=== PATIENT | male | born 1945 | race African-American/Black ===

== ENCOUNTER 2016-10-24 03:45 | Emergency (ER) | payer SELFPAY ==
[~2016-10-24] VITALS: Ht 182.9 cm; Wt 81.6 kg
[2016-10-24] MEDS ORDERED: Lidocaine HCl 2% Jelly 5ml Tube TOPIC ONE (04:00)
[2016-10-24 04:24] LABS: APPEARANCE,URINE VERY CLOUDY; KETONES,URINE NEGATIVE (NEGATIVE); NITRITE,URINE NEGATIVE (NEGATIVE); PH,URINE 9 (4.5-8.0); PROTEIN,URINE 3+ (NEGATIVE); UROBILINOGEN,URINE NORMAL MG/DL (0.0-1.0)
[2016-10-24 04:27] LABS: BASOPHILS % (AUTO) 1.2 % (0.0-2.0); EOSINOPHILS % (AUTO) 0.7 % (0.0-3.0); LYMPHOCYTES % (AUTO) 11.2 % (20.0-45.0); MEAN CORPUSCULAR HEMOGLOBIN 29.7 PG (27.0-31.0); MEAN CORPUSCULAR VOLUME 93 FL (80-99); MEAN PLATELET VOLUME 6.8 FL (6.5-10.1); MONOCYTES % (AUTO) 5.2 % (1.0-10.0); NEUTROPHILS % (AUTO) 81.8 % (45.0-75.0); PLATELET COUNT 311 K/UL (150-450); RED BLOOD COUNT 4.98 M/UL (4.70-6.10); RED CELL DISTRIBUTION WIDTH 11.8 % (11.6-14.8); WHITE BLOOD COUNT 9.5 K/UL (4.8-10.8)
[2016-10-24 04:34] LABS: LEUKOCYTE ESTERASE ,URINE NEGATIVE (NEGATIVE)
[2016-10-24 04:36] LABS: AMORPHOUS SEDIMENT,UR MANY /LPF; BACTERIA,URINE FEW /HPF; RBC,URINE 0-2 /HPF (0 - 0); TRIPLE PHOSPHATE CRYSTAL,UR MANY /LPF; WBC,URINE 0-2 /HPF (0 - 0)
[2016-10-24 04:39] LABS: PROTHROMBIN TIME 10.5 SEC (9.30-11.50)
[2016-10-24 04:47] LABS: ALANINE AMINOTRANSFERASE 10 U/L (3-41); ALBUMIN/GLOBULIN RATIO 1.2 (1.0-2.7); ANION GAP 17 (5-15); ASPARTATE AMINO TRANSFERASE 16 U/L (5-40); CALCIUM 9.7 mg/dL (8.6-10.2); CARBON DIOXIDE 22 mEQ/L (20-30); CHLORIDE 105 mEQ/L (98-107); CREATININE 1.5 mg/dL (0.7-1.2); HEMOLYSIS 1; LIPASE 22 U/L (< 60); POTASSIUM 3.6 mEQ/L (3.4-4.9); SODIUM 144 mEQ/L (135-145); TOTAL PROTEIN 7.5 g/dL (6.6-8.7)
--- NOTE | 2016-10-24 05:54 | Emergency Room Report ---
History of Present Illness General Chief Complaint: Male Urogenital Problems Source: Patient Present Illness HPI Patient presents with severe suprapubic and penile pain. He's had indwelling Maldonado for a long time. He states that it got dislodged somehow today. The pain is severe, burning, also in penis. Denies any fevers or chills. He denies any renal disease in the past. No NVD, chest pain, dyspnea, joint pain, headache, anxiety. No rashes. H/O prostate CA. Allergies: Coded Allergies: No Known Allergies (Unverified , 10/24/16) Patient History Past Medical History: see triage record Social History Narrative usual care at [facility] Reviewed Nursing Documentation: PMH: Agreed, PSxH: Agreed Nursing Documentation-PMH Hx Cardiac Problems: Yes - Coronary insuficency Hx Cancer: Yes - Prostate Cancer Review of Systems All Other Systems: negative except mentioned in HPI Physical Exam Vital Signs Date Time Temp Pulse Resp B/P Pulse Ox O2 Delivery O2 Flow Rate FiO2 10/24/16 03:44 97.2 113 18 94 Room Air Sp02 EP Interpretation: reviewed, normal General Appearance: well appearing, moderate distress Head: normocephalic Eyes: bilateral eye normal inspection ENT: moist mucus membranes Neck: supple Respiratory: lungs clear, normal breath sounds Cardiovascular #1: regular rate, rhythm Cardiovascular #2: 2+ radial (R) Gastrointestinal: normal inspection, normal bowel sounds, no mass, non- distended, tenderness - suprapubic area Genitourinary: normal inspection, other - maldonado Musculoskeletal: back normal, gait/station normal, normal range of motion Neurologic: alert, oriented x3, grossly normal Psychiatric: anxious - with pain Skin: normal inspection, warm/dry Medical Decision Making Diagnostic Impression: Primary Impression: Malfunction of Maldonado catheter Qualified Codes: T83.011A - Breakdown (mechanical) of indwelling urethral catheter, initial encounter Additional Impressions: Dysuria Renal insufficiency ER Course Patient presents with suprapubic pain and allegedly non-functioning maldonado. DDx : blocked maldonado, dislodged maldonado, UTI amongst others. We need to assess UA and renal function. Also maldonado will be removed and replaced with lidocaine. Also will be given pyridium. Improved after maldonado replaced with lidocaine. Urine is very cloudy. UA with minimal pyuria. Patient begun on antibiotics. Minimal elevation creat and BUN. Improved with treatment. Patient stable for outpatient observation and treatment. Laboratory Tests Test 10/24/16 04:10 White Blood Count 9.5 K/UL (4.8-10.8) Red Blood Count 4.98 M/UL (4.70-6.10) Hemoglobin 14.8 G/DL (14.2-18.0) Hematocrit 46.2 % (42.0-52.0) Mean Corpuscular Volume 93 FL (80-99) Mean Corpuscular Hemoglobin 29.7 PG (27.0-31.0) Mean Corpuscular Hemoglobin Concent 32.0 G/DL (32.0-36.0) Red Cell Distribution Width 11.8 % (11.6-14.8) Platelet Count 311 K/UL (150-450) Mean Platelet Volume 6.8 FL (6.5-10.1) Neutrophils (%) (Auto) 81.8 % (45.0-75.0) H Lymphocytes (%) (Auto) 11.2 % (20.0-45.0) L Monocytes (%) (Auto) 5.2 % (1.0-10.0) Eosinophils (%) (Auto) 0.7 % (0.0-3.0) Basophils (%) (Auto) 1.2 % (0.0-2.0) Prothrombin Time 10.5 SEC (9.30-11.50) Prothrombin Time INR 1.0 (0.9-1.1) PTT 26 SEC (23-33) Urine Color Yellow Urine Appearance Very cloudy Urine pH 9 (4.5-8.0) Urine Specific [place] 1.010 (1.005-1.035) Urine Protein 3+ (NEGATIVE) H Urine Glucose (UA) Negative (NEGATIVE) Urine Ketones Negative (NEGATIVE) Urine Occult Blood 3+ (NEGATIVE) H Urine Nitrite Negative (NEGATIVE) Urine Bilirubin Negative (NEGATIVE) Urine Urobilinogen Normal MG/DL (0.0-1.0) Urine Leukocyte Esterase Negative (NEGATIVE) Urine RBC 0-2 /HPF (0 - 0) H Urine WBC 0-2 /HPF (0 - 0) Urine Squamous Epithelial Cells None /LPF (NONE/OCC) Urine Triple Phosphate Crystals Many /LPF (NONE) H Urine Amorphous Sediment Many /LPF (NONE) H Urine Bacteria Few /HPF (NONE) Sodium Level 144 mEQ/L (135-145) Potassium Level 3.6 mEQ/L (3.4-4.9) Chloride Level 105 mEQ/L (98-107) Carbon Dioxide Level 22 mEQ/L (20-30) Anion Gap 17 (5-15) H Blood Urea Nitrogen 25 mg/dL (7-23) H Creatinine 1.5 mg/dL (0.7-1.2) H Estimate Glomerular Filtration Rate mL/min (>60) Glucose Level 174 mg/dL (74-106) H Calcium Level 9.7 mg/dL (8.6-10.2) Total Bilirubin < 0.2 mg/dL (0.0-1.2) Aspartate Amino Transferase (AST) 16 U/L (5-40) Alanine Aminotransferase (ALT) 10 U/L (3-41) Alkaline Phosphatase 74 U/L (40-129) Total Protein 7.5 g/dL (6.6-8.7) Albumin 4.1 g/dL (3.5-5.2) Globulin 3.4 g/dL Albumin/Globulin Ratio 1.2 (1.0-2.7) Lipase 22 U/L (< 60) Last Vital Signs Date Time Temp Pulse Resp B/P Pulse Ox O2 Delivery O2 Flow Rate FiO2 10/24/16 06:29 97.4 85 19 126/97 97 Room Air Status: improved Disposition: HOME, SELF-CARE Condition: Improved Scripts Phenazopyridine Hcl* (PYRIDIUM*) 100 Mg Tablet 100 MG ORAL THREE TIMES A DAY, #9 TAB Prov: Michele Collier M.D. 10/24/16 Nitrofurantoin Monohyd/M-Cryst* (MACROBID 100 MG*) 100 Mg Capsule 100 MG ORAL EVERY 12 HOURS, #14 CAP Prov: Michele Collier M.D. 10/24/16 Referrals: NOT CHOSEN ALEXA/,REFERRING (PCP) Michele Collier M.D. Oct 24, 2016 05:54
[2016-10-24] MEDS ORDERED: NITROFURANTOIN100 M2 ORAL (05:55)
[2016-10-24] MEDS ORDERED: PHENAZOPYRIDIN100 MG ORAL (05:55)
[2016-10-24 06:20] VITALS: BP 126/97
[2016-10-24 06:29] VITALS: BP 126/97
== END 2016-10-24 06:29 | disposition home or self-care (01) ==
LOC: EDBD 03:45 → EMR 04:05
DX: T83.011A Breakdown (mechanical) of indwelling urethral catheter, initial encounter (principal); R30.0 Dysuria; N28.9 Disorder of kidney and ureter, unspecified; Z85.46 Personal history of malignant neoplasm of prostate; X58.XXXA Exposure to other specified factors, initial encounter; Y93.9 Activity, unspecified; Y92.9 Unspecified place or not applicable
CPT/HCPCS: 36415; 51702; 80053; 81003; 83690; 85025; 85610; 85730; 96374; 99284

== ENCOUNTER 2019-01-20 17:10 | Inpatient (IN) | payer MEDICARE, OTHER ==
[~2019-01-20] VITALS: Ht 183.5 cm; Wt 75.7 kg
[~2019-01-20 17:10] MED LIST: NITROFURANTOIN100 M2 ORAL; PHENAZOPYRIDIN100 MG ORAL
[2019-01-20] MEDS ORDERED: UNOBMED (17:25)
--- NOTE | 2019-01-20 17:25 | NUR ---
Blood labs sent to lab.
[2019-01-20] MEDS ORDERED: Albuterol ud Inhalation HHN ONE (17:30)
[2019-01-20] MEDS ORDERED: Solu-MEDROL 125mg Inj IVP ONE (17:30)
--- NOTE | 2019-01-20 17:35 | NUR ---
notified patient BUSTOS 12/17 pain.
[2019-01-20] MEDS: Ipratropium 0.02% Inh Soln 2.5ml UD HHN SCH ×2 (17:42→17:43)
[2019-01-20 17:58] LABS: BASOPHILS % (AUTO) 2.3 % (0.0-2.0); EOSINOPHILS % (AUTO) 4.9 % (0.0-3.0); HEMATOCRIT 44.8 % (42.0-52.0); HEMOGLOBIN 14.7 G/DL (14.2-18.0); LYMPHOCYTES % (AUTO) 21.1 % (20.0-45.0); MEAN CORPUSCULAR VOLUME 87 FL (80-99); MONOCYTES % (AUTO) 7.9 % (1.0-10.0); NEUTROPHILS % (AUTO) 63.8 % (45.0-75.0); PLATELET COUNT 303 K/UL (150-450); RED BLOOD COUNT 5.18 M/UL (4.70-6.10); RED CELL DISTRIBUTION WIDTH 12.2 % (11.6-14.8); WHITE BLOOD COUNT 9.3 K/UL (4.8-10.8)
--- NOTE | 2019-01-20 18:03 | NUR ---
ED Nurse Note: RT notified for bibap
[2019-01-20 18:05] VITALS: BP 121/91
[2019-01-20 18:15] LABS: ALANINE AMINOTRANSFERASE 21 U/L (12-78); ALBUMIN 3.6 G/DL (3.4-5.0); ALBUMIN/GLOBULIN RATIO 0.9 (1.0-2.7); ALKALINE PHOSPHATASE 95 U/L (46-116); ANION GAP 2 mmol/L (5-15); ASPARTATE AMINO TRANSFERASE 19 U/L (15-37); BILIRUBIN,TOTAL 0.3 MG/DL (0.2-1.0); BLOOD UREA NITROGEN 19 mg/dL (7-18); CALCIUM 8.4 MG/DL (8.5-10.1); CARBON DIOXIDE 34 MMOL/L (21-32); CHLORIDE 100 MMOL/L (98-107); POTASSIUM 4.7 MMOL/L (3.5-5.1); SODIUM 136 MMOL/L (136-145)
--- NOTE | 2019-01-20 18:51 | NUR ---
ED Nurse Note: patient refused flu swab. notified to DR. Garcia
--- NOTE | 2019-01-20 19:01 | NUR ---
HAND-OFF: Report given to Rosendo MCKEON. endorsed all plan of care.
--- NOTE | 2019-01-20 19:01 | Emergency Room Report ---
History of Present Illness General Chief Complaint: Dyspnea/Respdistress Source: Patient, EMS Present Illness Allergies: Coded Allergies: No Known Allergies (Unverified , 10/24/16) Patient History Past Medical History: see triage record, CAD, COPD Past Surgical History: pacemaker Social History: Denies: smoking, alcohol use, drug use Reviewed Nursing Documentation: PMH: Agreed; PSxH: Agreed Nursing Documentation-PMH Hx Cardiac Problems: Yes - Coronary insuficency Hx COPD: Yes Hx Cancer: Yes - Prostate Cancer Review of Systems All Other Systems: negative except mentioned in HPI Physical Exam Vital Signs Date Time Temp Pulse Resp B/P (MAP) Pulse Ox O2 Delivery O2 Flow Rate FiO2 01/20/19 17:17 97.5 87 27 186/77 (113) 97 01/20/19 17:30 Non-Rebreather 7.0 01/20/19 18:06 36 Sp02 EP Interpretation: reviewed, normal General Appearance: alert, GCS 15, moderate distress Head: normocephalic, atraumatic Eyes: bilateral eye normal inspection, bilateral eye PERRL ENT: hearing grossly normal, normal pharynx, no angioedema, normal voice Neck: full range of motion, supple/symm/no masses Respiratory: chest non-tender, respiratory distress, accessory muscle use, rales, wheezing, expiration Cardiovascular #1: regular rate, rhythm, no edema Gastrointestinal: normal bowel sounds, non tender, soft, non-distended, no guarding, no rebound Rectal: deferred Musculoskeletal: back normal, normal range of motion, non-tender Neurologic: alert, oriented x3, responsive, motor strength/tone normal, sensory intact, speech normal Psychiatric: judgement/insight normal, memory normal, mood/affect normal, no suicidal/homicidal ideation Skin: no rash, normal color Medical Decision Making Diagnostic Impression: Primary Impression: COPD exacerbation Additional Impressions: Respiratory distress CHF (congestive heart failure) ER Course This patient is critically ill. This patient required complex medical decision- making, aggressive intervention, extensive laboratory workup and monitoring. Critical care time: 40 minutes. Laboratory Tests Test 01/20/19 17:20 White Blood Count 9.3 K/UL (4.8-10.8) Red Blood Count 5.18 M/UL (4.70-6.10) Hemoglobin 14.7 G/DL (14.2-18.0) Hematocrit 44.8 % (42.0-52.0) Mean Corpuscular Volume 87 FL (80-99) Mean Corpuscular Hemoglobin 28.4 PG (27.0-31.0) Mean Corpuscular Hemoglobin Concent 32.8 G/DL (32.0-36.0) Red Cell Distribution Width 12.2 % (11.6-14.8) Platelet Count 303 K/UL (150-450) Mean Platelet Volume 6.0 FL (6.5-10.1) L Neutrophils (%) (Auto) 63.8 % (45.0-75.0) Lymphocytes (%) (Auto) 21.1 % (20.0-45.0) Monocytes (%) (Auto) 7.9 % (1.0-10.0) Eosinophils (%) (Auto) 4.9 % (0.0-3.0) H Basophils (%) (Auto) 2.3 % (0.0-2.0) H Sodium Level 136 MMOL/L (136-145) Potassium Level 4.7 MMOL/L (3.5-5.1) Chloride Level 100 MMOL/L (98-107) Carbon Dioxide Level 34 MMOL/L (21-32) H Anion Gap 2 mmol/L (5-15) L Blood Urea Nitrogen 19 mg/dL (7-18) H Creatinine 1.0 MG/DL (0.55-1.30) Estimate Glomerular Filtration Rate mL/min (>60) Glucose Level 147 MG/DL (74-106) H Lactic Acid Level 1.20 mmol/L (0.4-2.0) Calcium Level 8.4 MG/DL (8.5-10.1) L Total Bilirubin 0.3 MG/DL (0.2-1.0) Aspartate Amino Transferase (AST) 19 U/L (15-37) Alanine Aminotransferase (ALT) 21 U/L (12-78) Alkaline Phosphatase 95 U/L (46-116) Troponin I 0.013 ng/mL (0.000-0.056) Total Protein 7.8 G/DL (6.4-8.2) Albumin 3.6 G/DL (3.4-5.0) Globulin 4.2 g/dL Albumin/Globulin Ratio 0.9 (1.0-2.7) L EKG Diagnostic Results Rate: normal Rhythm: NSR ST Segments: no acute changes Other Impression Bifascicular block. Rhythm Strip Diag. Results EP Interpretation: yes Rate: 60 Rhythm: NSR Chest X-Ray Diagnostic Results Chest X-Ray Diagnostic Results : Chest X-Ray Ordered: Yes # of Views/Limited/Complete: 1 View Indication: Shortness of Breath EP Interpretation: Yes Interpretation: other - Diffusely patchy opacities. Impression: Other - See above. Electronically Signed by: Simona Garcia DO Last Vital Signs Date Time Temp Pulse Resp B/P (MAP) Pulse Ox O2 Delivery O2 Flow Rate FiO2 01/20/19 18:46 40 01/20/19 18:06 66 20 99 Room Air 60 16 97 01/20/19 18:05 97.5 121/91 01/20/19 17:30 7.0 Disposition: ADMITTED INPATIENT Simona Garcia DO Jan 20, 2019 19:01
--- NOTE | 2019-01-20 19:20 | NUR ---
ED Nurse Note: Pt is stable and RT just left bedside.
[2019-01-20] MEDS ORDERED: Nitroglycerin 2% oint pkt TOPIC ONE (20:00)
--- NOTE | 2019-01-20 20:41 | NUR ---
ED Nurse Note: Called for report. Call back in 10min. Spoke to LINDA Henderson
[2019-01-20 21:00] LABS: APPEARANCE,URINE CLEAR; BILIRUBIN, URINE NEGATIVE (NEGATIVE); COLOR,URINE PALE YELLOW; GLUCOSE, URINE (UA) NEGATIVE (NEGATIVE); KETONES,URINE NEGATIVE (NEGATIVE); LEUKOCYTE ESTERASE ,URINE 1+ (NEGATIVE); NITRITE,URINE NEGATIVE (NEGATIVE); PH,URINE 5 (4.5-8.0); PROTEIN,URINE NEGATIVE (NEGATIVE); UROBILINOGEN,URINE NORMAL MG/DL (0.0-1.0)
--- NOTE | 2019-01-20 21:27 | NUR ---
TRANSFER TO FLOOR: Patient transferred to SDU as ordered, per MD Alyssa . Report given to LINDA Barnes. Belongings and medications given to LINDA Barnes. Family and or S/O informed of transfer.
--- NOTE | 2019-01-20 21:30 | NUR ---
NURSE NOTES: Received patient from LINDA Robbins. patient is AO X3, able to make needs known, denies pain at this time. personnel monitor applied to patient, NSR noted on personnel monitor. Left upper chest pacemaker noted. no acute cardiac distress noted at this time. nitroglycerin patch noted on right upper chest previously applied in ER. patient currently on 2 L O2 via NC. tolerating well, saturating at 94%. new gown applied, skin intact. Right forearm 18 g IV site noted, patent and intact, asymptomatic. F/C noted, changed collection bag, draining jitendra urine to gravity. per patient, F/C was previously inserted at [facility]. belongings noted and reviewed with patient. bed in lowest position and locked, siderails up X2, call light within reach. will continue to monitor. will contact MD for admission orders.
[2019-01-20 21:50] VITALS: BP 113/65
--- NOTE | 2019-01-20 21:50 | NUR ---
NURSE NOTES: left message for Dr. Shah regarding admission orders. awaiting call back.
--- NOTE | 2019-01-20 22:11 | NUR ---
NURSE NOTES: spoke with Alfonso of [place] medical records in regards to patient's current medication list. will fax request form.
--- NOTE | 2019-01-20 22:15 | NUR ---
NURSE NOTES: faxed request form to Jamil of [place] medical records to obtain medication list.
--- NOTE | 2019-01-20 22:22 | NUR ---
NURSE NOTES: left 2nd message for Dr. Shah regarding admission orders. awaiting call back. patient remains stable.
--- NOTE | 2019-01-20 22:50 | NUR ---
NURSE NOTES: received call back from Dr. Shah regarding admission orders. per keturah Youssef to enter diet order and he will review chart and place other orders.
[2019-01-21] VITALS: BP 114/68
[2019-01-21] MEDS ORDERED: cefTRIAXone 1 GM in D5W 55 ML IVPB SCH (01:00)
[2019-01-21] MEDS: Albuterol/Ipratropium 3ml neb HHN SCH ×6 (03:06→23:00)
[2019-01-21] MEDS ORDERED: FLOMAX0.4 MG ORAL (03:47)
[2019-01-21] MEDS ORDERED: LEVALBUTER0.31 MG/3 IH (03:47)
[2019-01-21] MEDS ORDERED: PREDNISONE20 MG ORAL (03:47)
[2019-01-21] MEDS ORDERED: CARVEDILOL6.25 MG ORAL (03:47)
[2019-01-21] MEDS ORDERED: ATORVASTATIN CA20 MG ORAL (03:47)
[2019-01-21] MEDS ORDERED: VIBRAMYCIN100 MG ORAL (03:47)
[2019-01-21] MEDS ORDERED: ELIQUIS5 MG PO (03:53)
[2019-01-21] MEDS ORDERED: NASONEX17 GM INH (03:53)
[2019-01-21] MEDS ORDERED: STIOLTO RESPIMAT4 GM IH (03:53)
[2019-01-21 04:00] VITALS: BP 108/65
[2019-01-21 04:29] LABS: HEMATOCRIT 43.3 % (42.0-52.0); HEMOGLOBIN 13.7 G/DL (14.2-18.0); MEAN CORPUSCULAR VOLUME 89 FL (80-99); PLATELET COUNT 335 K/UL (150-450); RED BLOOD COUNT 4.88 M/UL (4.70-6.10); RED CELL DISTRIBUTION WIDTH 13.4 % (11.6-14.8); WHITE BLOOD COUNT 7.6 K/UL (4.8-10.8)
[2019-01-21 04:57] LABS: ALANINE AMINOTRANSFERASE 18 U/L (12-78); ALBUMIN 3.1 G/DL (3.4-5.0); ALBUMIN/GLOBULIN RATIO 0.8 (1.0-2.7); ALKALINE PHOSPHATASE 90 U/L (46-116); ANION GAP 10 mmol/L (5-15); ASPARTATE AMINO TRANSFERASE 13 U/L (15-37); BILIRUBIN,TOTAL 0.2 MG/DL (0.2-1.0); BLOOD UREA NITROGEN 23 mg/dL (7-18); CALCIUM 8.2 MG/DL (8.5-10.1); CARBON DIOXIDE 28 MMOL/L (21-32); CHLORIDE 102 MMOL/L (98-107); CREATININE 1.2 MG/DL (0.55-1.30); POTASSIUM 4.7 MMOL/L (3.5-5.1); SODIUM 139 MMOL/L (136-145)
--- NOTE | 2019-01-21 05:00 | History and Physical Report ---
DATE OF ADMISSION: 01/20/2019 HISTORY & PHYSICAL ADMITTING PHYSICIAN: Michele Shah M.D. REASON FOR ADMISSION: Congestive heart failure, uncontrolled hypertension, and acute bronchospasm. HISTORY OF PRESENT ILLNESS: This is a 73-year-old male who usually gets his medical care at the [facility] who presented to the emergency room with 1 day of progressive shortness of breath. He has not had any fevers or chills. Scant sputum production has been noted with increasing tightness and pain. She has not had any chest pain or leg swelling. The patient was seen in the emergency room where he was on bronchodilators, intravenous steroids, and diuretics. His pressure improved. PAST MEDICAL HISTORY: COPD, CAD, pacemaker, prostate cancer, prostatectomy, and chronic indwelling Montgomery catheter. ALLERGIES: None. MEDICATIONS: The patient does not recall. SOCIAL HISTORY: A 50+ pack year smoker, quit last year. No alcohol abuse or substance abuse. FAMILY HISTORY: Noncontributory. REVIEW OF SYSTEMS: No visual or hearing loss. No history of diabetes or thyroid disorder. He does not know his cholesterol level. He denies any history of seizure or stroke. He does not think that he had a heart attack. There is no history of rheumatic heart disease or irregular heart rhythm. He has never been on a ventilator before, but has been on steroids in the past. He had prostatectomy. He has had a catheter indwelling for years, he replaced monthly. In fact, yesterday, it was changed at the [facility]. He has not noted any change in bowel habits. The patient's pacemaker is checked every year or so, he does not recall the last time. PHYSICAL EXAMINATION: VITAL SIGNS: Blood pressure 186/77, pulse 87, respiratory rate 27, and afebrile in the emergency room. Now, blood pressure 135/60, respiratory rate 20, and afebrile. HEENT: Conjunctivae are pink. Oropharynx clear. NECK: Supple. Some accessory muscle use. LUNGS: Coarse breath sounds. Expiratory wheezes. Few rales. CARDIAC: Regular rhythm and rate. Normal S1 and S2. A 1/6 systolic murmur at apex. CHEST WALL: Chest wall with pacemaker pocket site. ABDOMEN: Soft and nontender. EXTREMITIES: Trace edema. Montgomery catheter in place. Urine is clear. LABORATORY DATA: White count 8.3 and hemoglobin 14.7. Lactic acid normal. Troponin 0.013. Glucose 147, BUN 19, and creatinine 1. Sodium 136, potassium 4.7, bicarb 34, and albumin 3.6. ABG 7.34, 50, 83. IMPRESSION: 1. Chronic obstructive pulmonary disease with acute exacerbation . 2. Acute on chronic respiratory acidosis. 3. Paroxysmal bronchospasm. 4. Hypertension, resolved. 5. Acute diastolic congestive heart failure. 6. Permanent pacemaker. 7. Chronic indwelling Montgomery catheter with no signs of acute infection. PLAN: 1. Cardiac monitoring. 2. Empiric antimicrobials. 3. Intravenous steroids. 4. Inhaled bronchodilators. 5. Hold BiPAP for now. 6. Diuresis. 7. Echocardiogram. 8. Obtain pacemaker data and interrogation to be considered if not recently done. 9. Prophylaxis. 10. Avoid excess oxygen use due to likelihood . Michele Shah M.D. DR: ABBEY JOB#: [id number] CC: JACKELIN
[2019-01-21] MEDS: Nitroglycerin 2% oint pkt TOPIC SCH ×3 (06:00→18:03)
[2019-01-21] MEDS: Solu-MEDROL 40mg Inj IVP SCH ×2 (06:20→12:59)
--- NOTE | 2019-01-21 07:47 | NUR ---
HAND-OFF: Report given to LINDA Cobos. patient is in stable condition.
--- NOTE | 2019-01-21 07:48 | NUR ---
NURSE NOTES: Patient received in semi-ortiz's position, alert, oriented. Able to make needs known. On room air, respirations even and unlabored, no acute respiratory distress. Denies pain at this time. Right forearm IV running TKO, asymptomatic. Montgomery catheter in place, draining yellow urine. Sinus Rhythm on the monitor. Call light placed within reach. Patient constantly asking for sandwiches and juice. Safety measure implemented. Will continue to monitor.
[2019-01-21 08:00] VITALS: BP 103/68
--- NOTE | 2019-01-21 08:27 | NUR ---
Pt refused breathing tx, LINDA Cobos notified. Pt saturating 87% on RA so placed pt back on 2L NC. Pt now saturating 92%. Will continue to monitor. Addendum: 01/21/19 at 0828 by BEA DOTY RT Amended: Links added.
[2019-01-21] MEDS: Heparin 5000 units/ml inj SUBQ SCH ×2 (09:00→21:10)
[2019-01-21 12:00] VITALS: BP 127/70
--- NOTE | 2019-01-21 12:46 | Diagnostic Imaging Report ---
Indication: Dyspnea Comparison: None A single view chest radiograph was obtained. Findings: Pulmonary vascularity is mildly prominent. Heart is enlarged. There is a single lead pacemaker in the left anterior chest wall with the wire projecting over the right ventricle. Bones are unremarkable. IMPRESSION: Query mild pulmonary vascular congestion.
--- NOTE | 2019-01-21 12:55 | NUR ---
CASE MANAGEMENT:REVIEW 73 YR OLD MALE BIBA CC; SOB PMH: WAS DISCHARGED FROM [place] ON 01/20/19 SI: COPD EXACERBATION RESPIRATORY DISTRESS. CHF 97.5 87 27 186/77 97% ON RA PH-7.34 PCO2+50.0 HCO3+26.4 IS: ALBUTEROL GIVEN EN ROUTE PLACED ON NON REBREATHER DUONEB HHN X3 NITRO BID 1" X1 IV LASIX IV SOLUMEDROL 125 MG : TO STEP DOWN UNIT
--- NOTE | 2019-01-21 12:55 | NUR ---
NURSE NOTES: Dr. Shah's office called, left a message for patient positive for gram positive cocci in cluster and patient requesting ensure. Will await call back.
--- NOTE | 2019-01-21 13:06 | NUR ---
NURSE NOTES: Patient eating last piece of second meatloaf while talking. Patient kept coughing. Informed patient about the risks of aspiration with eating huge meals, to take it slow and chew properly, not to eat and talk at the same time. Patient being admitted for COPD exacerbation, he is at risk. Patient's HOB is elevated at this time, on room air, patient refuses to place on nasal cannula.
[2019-01-21 16:00] VITALS: BP 112/62
--- NOTE | 2019-01-21 16:10 | NUR ---
NURSE NOTES: Patient asking for a sandwich from kitchen. Dietary called.
--- NOTE | 2019-01-21 16:16 | Consultation ---
DATE OF CONSULTATION: 01/21/2019 PULMONARY CONSULTATION CONSULTING PHYSICIAN: Jose Cadet M.D. REFERRING PHYSICIAN: Syed Rashid M.D. REASON FOR CONSULTATION: Shortness of breath, respiratory distress. HISTORY OF PRESENT ILLNESS: This is a 73-year-old male. The patient usually is cared for at the [facility]. The patient presented with progressive shortness of breath. The patient denies any fevers, chills, but does have some sputum production. The patient also notes some chest tightness. Denies any chest pain. The patient was seen in the emergency room, was given IV steroids and diuretics. The patient does have underlying history of COPD and admitted with COPD and CHF. Care discussed and reviewed with the patient. The patient quit smoking just last year, but has a very longstanding history of smoking. No untoward events. No falls or chest trauma. No ill contacts. ER notes and cardiology notes reviewed. MEDICATIONS: Reviewed. ALLERGIES: Reviewed and reconciled. SOCIAL HISTORY: The patient is a 50 pack-year smoker, quit last year. No alcohol use. The patient is a . The patient is retired at present. REVIEW OF SYSTEMS: All 10 points reviewed and otherwise negative. PHYSICAL EXAMINATION: GENERAL: The patient is a well-developed male with mild shortness of breath. VITAL SIGNS: Blood pressure 108/65, 95 saturation on one liter, pulse 65, temperature 97.9, respiratory rate 20. HEENT: Negative. Extraocular movements are grossly intact. NECK: Supple. LUNGS: Some basilar crackles with scattered anterior wheezes. CARDIAC: S1 and S2. Regular rate and rhythm without murmurs, rubs, gallops. The patient has chest wall pacemaker. ABDOMEN: Soft, nontender, nondistended. EXTREMITIES: No cyanosis or clubbing. There is trace edema. GENITOURINARY: Montgomery catheter in place. NEUROLOGIC: Grossly nonfocal. LABORATORY DATA: Otherwise reviewed. White count 8.3. Glucose 147, BUN 19, creatinine 1. ABG, pH 7.34, pCO2 50, pO2 of 83. IMPRESSION: 1. COPD with acute exacerbation. 2. Hypercapnia. 3. Chronic respiratory failure. 4. Acute bronchospasm. 5. Hypertension. 6. Congestive heart failure. 7. Pacemaker. 8. 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 RECOMMENDATIONS: 1. Supportive care. 2. Monitor fluid status. 3. Monitor intake and output. 4. Diuresis as needed. 5. Empiric antibiotics. 6. Nebulized therapy. 7. IV steroids and taper as able. 8. Respiratory care as outlined. 9. Monitor and recommend further. 10. Discharge back to home when the patient improves and stable. Jose Cadet M.D. DR: Elfego JOB#: [id number] CC: JACKELIN
--- NOTE | 2019-01-21 17:00 | NUR ---
NURSE NOTES: Dr. Shah in facility, made aware of blood sugar results, patient with no insulin order, blood culture positive. MD to place in his orders.
--- NOTE | 2019-01-21 19:22 | NUR ---
HAND-OFF: Report given to LINDA Barnes.
--- NOTE | 2019-01-21 19:25 | NUR ---
NURSE NOTES: received patient from LINDA Cobos. patient is observed resting in bed, watching tv, denies pain at this time. patient is on 1 liter O2 via NC, tolerating well; no s/sx of respiratory distress noted at this time. F/C is patent and intact, draining jitendra urine well to gravity. RFA 18 g IV site patent and intact, asymptomatic. bed in lowest position and locked, siderails up X2, call light within reach. will continue to monitor.
[2019-01-21 20:00] VITALS: BP 120/72
[2019-01-21] MEDS ORDERED: Solu-MEDROL 40mg Inj IVP SCH (21:00)
--- NOTE | 2019-01-21 21:30 | Progress Note ---
DATE: 01/21/2019 INTERNAL MEDICINE PROGRESS NOTE SUBJECTIVE: The patient has less shortness of breath. No wheezing. He notes his pacemaker checked last week. He still does not feel like he is at his baseline with regard to respiratory status. OBJECTIVE: VITAL SIGNS: Blood pressure 112/63, pulse 75, respirations 21, afebrile. LUNGS: With diminished breath sounds. Few rhonchi. HEART: Regular rhythm, rate. Normal S1, S2. ABDOMEN: Soft. EXTREMITIES: No edema. DIAGNOSTIC DATA: Echocardiogram with normal ejection fraction. Natriuretic peptide of 148. Troponin negative. BUN 23, creatinine 1.2. White count is 7.6. IMPRESSION: 1. Chronic obstructive pulmonary disease exacerbation. 2. Paroxysmal bronchospasm. 3. Acute diastolic congestive heart failure. 4. Permanent pacemaker. 5. Positive blood culture, likely a contaminant. PLAN: 1. Empiric antibiotics. 2. ID consultation. 3. Steroid taper. 4. Inhaled bronchodilators. 5. DVT prophylaxis. 6. Diuresis based on clinical parameters. 7. chest x-ray. Michele Shah M.D. DR: SHANIA JOB#: [id number] CC:
--- NOTE | 2019-01-21 22:15 | NUR ---
TRANSFER TO FLOOR: Patient transferred to 2E, room 218-2 as per physician order. patient is in stable condition. Report given to LINDA Scott. Belongings and medications given to receiving RN. Belongings remain at patient's bedside. Endorsed to RN to follow up with Dr. Shah regarding patient's glucose levels.
--- NOTE | 2019-01-21 22:26 | NUR ---
NURSE NOTES: Received report from LINDA Barnes. Patient is awake lying semi-ortiz's; resting comfortably. No signs of acute distress or pain noted at this time. On 1L nasal cannula. AOx4; able to make needs known. Ambulates with some assistance. Checked IV site; patent and flushed. No erythema, bleeding, or infiltration noted. Belongings list checked with patient and transferring RN. Montgomery catheter draining well to gravity. Skin assessment performed; no wounds noted. Skin is intact. Bed at lowest position, brakes on, siderails up x2; call light within reach. Will continue to monitor.
--- NOTE | 2019-01-21 23:08 | NUR ---
NURSE NOTES: Called Dr. Shah regarding patient's blood sugar of 328, but has no insulin coverage. Awaiting callback for any further orders.
[2019-01-22] VITALS: BP 125/77
[2019-01-22] MEDS ORDERED: cefTRIAXone 1 GM in NS 55 ML IVPB SCH ×4 (01:00)
[2019-01-22] MEDS: Albuterol/Ipratropium 3ml neb HHN SCH ×3 (03:04→10:53)
[2019-01-22 04:00] VITALS: BP 132/89
--- NOTE | 2019-01-22 04:10 | NUR ---
NURSE NOTES: Patient is asleep lying semi-ortiz's; resting comfortably. No signs of acute distress or pain noted at this time. On 1L nasal cannula. Montgomery catheter draining well to gravity.
[2019-01-22] MEDS: Nitroglycerin 2% oint pkt TOPIC SCH ×2 (06:44→12:36)
--- NOTE | 2019-01-22 07:31 | NUR ---
HAND-OFF: Report given to LINDA Mathew. Patient is asleep lying semi-ortiz's; resting comfortably. On 2L nasal cannula. Montgomery catheter draining well to gravity. In stable condition.
--- NOTE | 2019-01-22 07:38 | NUR ---
NURSE NOTES: Report received from LINDA Gill. Patient shows no signs of distress, A+Ox3, denies pain/SOB. Respirations are even and unlabored on 2 L NC with end tital CO2 monitoring. IV site is intact and saline locked. Bed is at lowest position, brakes engaged, siderails x2, bed alarm on, and call light within reach. Pt is in stable condition at this time; will continue to monitor.
[2019-01-22 08:00] VITALS: BP 114/72
[2019-01-22] MEDS ORDERED: Solu-MEDROL 40mg Inj IVP SCH (09:00)
[2019-01-22] MEDS ORDERED: Heparin 5000 units/ml inj SUBQ SCH (09:00)
--- NOTE | 2019-01-22 11:21 | NUR ---
RADIOLOGY DEPT., CHEST X-RAY DONE.-P.DYE
--- NOTE | 2019-01-22 11:49 | Diagnostic Imaging Report ---
Indication: Dyspnea Comparison: None A single view chest radiograph was obtained. Findings: Pulmonary vascular congestion suspected and mild cardiomegaly. There is a pacemaker again noted in the left anterior chest wall. IMPRESSION: Mild CHF slightly worse
[2019-01-22 12:00] VITALS: BP 122/76
[2019-01-22 12:36] VITALS: BP 122/76
--- NOTE | 2019-01-22 12:49 | Cardiology Report ---
APPROVED REPORT EXAM: Two-dimensional and M-mode echocardiogram with Doppler and color Doppler. INDICATION Congestive Heart Failure M-Mode DIMENSIONS IVSd1.6 (0.7-1.1cm)Left Atrium (MM)3.0 (1.6-4.0cm) LVDd3.8 (3.5-5.6cm)Aortic Root2.4 (2.0-3.7cm) PWd1.0 (0.7-1.1cm)Aortic Cusp Exc.1.5 (1.5-2.0cm) IVSs1.3 cm LVDs2.3 (2.5-4.0cm) PWs1.1 cm Technically difficult study due to poor acoustical windows, all images obtained from subcostal. Study quality precludes accurate assessment of regional wall motion. Normal left ventricular chamber size, systolic function and wall motion to extent visualized. Left ventricular ejection fraction estimated to be 55%. No evidence of left ventricular hypertrophy. No evidence of pericardial effusion. Mild left atrial enlargement . Right cardiac chamber sizes are within normal limits. Focal aortic valve sclerosis with adequate cusp excursion. Thickened mitral valve leaflets with normal excursion. Mitral annulus and aortic root calcification. Normal pulmonic valve structure. Normal tricuspid valve structure. IVC at 1.6 cm without physiologic collapse. A color flow and spectral Doppler study was performed and revealed: No aortic insufficiency. Trace mitral regurgitation. Mitral inflow indicates normal left ventricular diastolic function. Mild tricuspid regurgitation. Tricuspid systolic velocities suggests peak right ventricular systolic pressure of 20 mmHg.
--- NOTE | 2019-01-22 13:15 | NUR ---
CASE MANAGEMENT:REVIEW 01/22/19 SI: COPD EXACERBATION. CHF 97.0 68 20 122/76 92% ON 2L/NC IS: IV LASIX QD HEPARIN SQ Q12 IV SOLUMEDROL Q12 IV ROCEPHIN Q24 DUONEB HHN Q4HRS RTC NITRO BID 1" TID : TELEMETRY STATUS DCP: FROM HOME
--- NOTE | 2019-01-22 13:35 | NUR ---
NURSE NOTES: Patient insisting on double portions of food and Ensure. His blood sugar is 359 with no insulin coverage. He seems to be forgetful that we instructed him about his blood sugar and his need to lower it. He keeps asking different staff members for food even though RN has already instructed him that she is working on getting what he wants through the doctor. Spoke with Dr. Shah who ordered sliding scale and double Ensure. He said patient cannot have two trays as he is diabetic. Orders noted and carried out.
[2019-01-22] MEDS ORDERED: NovoLOG Insulin Flexpen SUBQ SCH (13:45)
--- NOTE | 2019-01-22 14:27 | NUR ---
NURSE NOTES: Patient upset because he can't have two portions of food. Dr. Shah said he can have snacks and a regular diet with 2 bottles of ensure, but he said that was not enough. Patient's blood sugar elevated. Tried to give Novolog, but patient insisted on leaving. Patient said that he gets treated better at the [place]. He said there, he can get all the Ensure and food trays he wants. Once he wanted to go, there was no talking with him. Left a message with Dr. Shah regarding patient's wanting to leave AMA. Patient willing to sign AMA paper. Patient was so anxious to leave that we only had time to remove wristband, monitor, and IV, but patient did not sign belongings list. I asked patient if he had everything he came in with and he said "yes." He left wearing his ring on his finger. Patient stable on discharge. Asked him to wait for Dr. Shah's return phone call and he said he wouldn't wait. He wanted to take the bus to [place]. Patient left floor AMA @ [id number].
--- NOTE | 2019-01-22 14:30 | Pulmonology Progress Note ---
Assessment/Plan Assessment/Plan Pulmonary Progress Note HPI: Patient is a 73-year-old male admitted with shortness of breath, cough with sputum. The patient denied any fevers, chills, some chest tightness. Denied any chest pain. Receiving IV steroids, HHN and diuretics. The patient does have underlying history of COPD and admitted with COPD and CHF. Care discussed and reviewed with the patient. The patient quit smoking just last year, but has a very longstanding history of smoking. No untoward events. No falls or chest trauma. No ill contacts. ER notes and cardiology notes reviewed. MEDICATIONS: Reviewed. ALLERGIES: Reviewed and reconciled. SOCIAL HISTORY: The patient is a 50 pack-year smoker, quit last year. No alcohol use. The patient is a . The patient is retired at present. PHYSICAL EXAMINATION: GENERAL: The patient is a well-developed male, comfortable VITAL SIGNS NOTED: HEENT: Negative. Extraocular movements are grossly intact. NECK: Supple. LUNGS: Some basilar crackles with scattered anterior wheezes. CARDIAC: S1 and S2. Regular rate and rhythm without murmurs, rubs, gallops. The patient has chest wall pacemaker. ABDOMEN: Soft, nontender, nondistended. EXTREMITIES: No cyanosis or clubbing. There is trace edema. GENITOURINARY: Montgomery catheter in place. NEUROLOGIC: Grossly nonfocal. LABORATORY DATA NOTED: ABG, pH 7.34, pCO2 50, pO2 of 83. IMPRESSION: 1. COPD with acute exacerbation. 2. Hypercapnia. 3. Chronic respiratory failure. 4. Acute bronchospasm. 5. Hypertension. 6. Congestive heart failure. 7. Pacemaker. 8. 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 PLAN: 1. Supportive care. 2. Monitor fluid status. 3. Monitor intake and output. 4. Diuresis as needed. 5. Empiric antibiotics. 6. Nebulized therapy. 7. IV steroids and taper as tolerated. 8. Respiratory care as outlined. 9. Monitor and recommend further. 10. Discharge back to home when the patient improves and stable. CXR: Mild congestion Subjective ROS Limited/Unobtainable: No Allergies: Coded Allergies: No Known Allergies (Unverified , 10/24/16) Objective Last 24 Hour Vital Signs Date Time Temp Pulse Resp B/P (MAP) Pulse Ox O2 Delivery O2 Flow Rate FiO2 01/22/19 12:36 122/76 01/22/19 12:00 68 01/22/19 12:00 97.0 68 20 122/76 (91) 92 01/22/19 11:03 68 18 99 Nasal Cannula 2.0 28 66 23 94 01/22/19 09:00 Nasal Cannula 2.0 01/22/19 08:00 97.8 80 24 114/72 (86) 94 01/22/19 08:00 65 01/22/19 06:53 95 16 97 Nasal Cannula 2.0 28 63 15 93 01/22/19 06:44 132/89 01/22/19 06:43 93 Nasal Cannula 2.0 28 01/22/19 04:00 72 01/22/19 04:00 97.6 73 23 132/89 (103) 95 01/22/19 03:04 69 18 98 Nasal Cannula 2.0 28 72 18 94 01/22/19 00:00 97.3 70 22 125/77 (93) 95 01/22/19 00:00 68 01/21/19 23:59 66 18 98 Nasal Cannula 2.0 28 67 18 96 01/21/19 20:00 75 01/21/19 20:00 98.4 71 24 120/72 (88) 92 01/21/19 20:00 94 Nasal Cannula 2.0 28 01/21/19 20:00 Nasal Cannula 1.0 01/21/19 19:53 66 18 98 Nasal Cannula 2.0 28 64 18 94 01/21/19 18:03 112/62 01/21/19 16:00 75 01/21/19 16:00 98.8 78 21 112/62 (79) 92 01/21/19 16:00 Nasal Cannula 1.0 Intake and Output 01/21/19 01/22/19 19:00 07:00 Intake Total 490 ml 565 ml Output Total 1000 ml 600 ml Balance -510 ml -35 ml Intake Oral 490 ml 510 ml IV Total 55 ml Output Urine Total 1000 ml 600 ml # Bowel Movements 1 Microbiology Date/Time Source Procedure Growth Status 01/20/19 18:14 Blood Blood Culture - Preliminary Staphylococcus Sp Coag Neg Resulted Current Medications Medications (Trade) Dose Ordered Sig/Dejon Route PRN Reason Start Time Stop Time Status Last Admin Dose Admin Albuterol/ Ipratropium (Albuterol/ Ipratropium) 3 ml Q4HRT HHN 01/21/19 23:00 01/26/19 02:59 01/22/19 10:53 Ceftriaxone Sodium 1 gm/ Sodium Chloride 55 ml @ 110 mls/hr Q24H IVPB 01/22/19 01:00 01/28/19 00:59 01/22/19 00:18 Dextrose (Dextrose 50%) 25 ml Q30M PRN IV Hypoglycemia 01/22/19 13:45 02/21/19 13:44 Dextrose (Dextrose 50%) 50 ml Q30M PRN IV Hypoglycemia 01/22/19 13:45 02/21/19 13:44 Furosemide (Lasix) 20 mg DAILY IV 01/22/19 09:00 02/20/19 08:59 01/22/19 08:54 Heparin Sodium (Porcine) (Heparin 5000 units/ml) 5,000 units EVERY 12 HOURS SUBQ 01/22/19 09:00 02/20/19 08:59 01/22/19 08:56 Insulin Aspart (NovoLOG) BEFORE MEALS AND HS SUBQ 01/22/19 13:45 02/21/19 13:44 Methylprednisolone Sodium Succinate (Solu-MEDROL) 40 mg EVERY 12 HOURS IVP 01/22/19 09:00 02/20/19 20:59 01/22/19 08:54 Nitroglycerin (Nitro-Bid) 1 inch TID@0600,1200,1800 TOPIC 01/22/19 06:00 02/20/19 05:59 01/22/19 12:36 Michele Mcmahan MD Jan 22, 2019 14:30
[2019-01-22] MEDS ORDERED: NS 275ml ONE (14:36)
[2019-01-22] MEDS ORDERED: Tubing IV Secondary IV ONE (14:36)
--- NOTE | 2019-01-22 16:30 | Consultation ---
DATE OF CONSULTATION: 01/22/2019 INFECTIOUS DISEASES CONSULTATION CONSULTING PHYSICIAN: Carlos Enrique Taylor M.D. PRIMARY ATTENDING: Michele Shah M.D. This consult is for coverage of Dr. Lorenzana. REASON FOR CONSULTATION: Positive blood cultures, COPD exacerbation. HISTORY OF PRESENT ILLNESS: This 73-year-old male admitted on 01/20/2019 from home complaining of shortness of breath for one day, chest tightness, some cough initially. No fever. No chills. No other systemic symptoms. The patient had a blood culture at the time of admission that grew coagulase-negative Staphylococcus. PAST MEDICAL HISTORY: Hypertension, status post pacemaker, diastolic CHF, ex-smoker. ALLERGIES: No known drug allergies. MEDICATIONS: Getting Lasix, heparin, methylprednisone, ceftriaxone, albuterol ipratropium inhaler. SOCIAL HISTORY: Single, retired , has history of 50+ pack years smoking, quit last year. No drug abuse. No alcohol abuse. Lives alone. REVIEW OF SYSTEMS: Feels better. He has no cough today. No significant shortness of breath. No chest pain. No nausea. No vomiting. No diarrhea. No problem passing urine. PHYSICAL EXAMINATION: VITAL SIGNS: Temperature is 97.8, pulse 80, blood pressure 114/72. GENERAL APPEARANCE: No acute distress, seems to have average weight. HEENT: Head and neck, has poor dentition. HEART: Normal rate. Pacemaker on the left side of the chest. LUNGS: Clear. Getting oxygen by nasal cannula. ABDOMEN: Soft, nontender. Bowel sounds present. EXTREMITIES: No edema. NEUROLOGIC: Awake, alert, oriented x3. No focal weakness. LABORATORY AND DIAGNOSTIC DATA: WBC 7.6, hemoglobin 13.7, hematocrit 43.3, and platelets 335. Sodium 139, potassium 4.7, chloride 102, bicarbonate 28, BUN 23, creatinine 1.2, glucose is 300. Blood gas showed pCO2 50, pO2 of 82.8. UA was negative. Blood culture x1 coagulase-negative Staph. IMPRESSION: COPD exacerbation. The patient has positive blood culture with coagulase-negative Staph likely contamination, hyperglycemia may be steroid induced, diastolic CHF, hypertension, status post pacemaker. RECOMMENDATION: Continue Rocephin. Try to taper steroids. We will follow up the patient clinically. At the end of my exam, I thank Dr. Shah, for involving me in the care of this patient. Carlos Enrique Taylor M.D. DR: Lisandra JOB#: [id number] CC: JACKELIN
--- NOTE | 2019-01-24 08:06 | Discharge Summary ---
Discharge Summary Discharge Summary _ DATE OF ADMISSION: 01/20/2019 DATE OF DISCHARGE: 01/22/2019 CONSULTANTS: Dr. Renée Taylor BRIEF HOSPITAL COURSE: Patient is a 73-year-old male, who usually gets his medical care at the [facility], who presented to the emergency room due to 1 day history of progressive shortness of breath. He denie fever or chills. He had scant sputum production which was noted to increase chest tightness and pain. He denied any chest pain or leg swelling. He has medical history of COPD, CAD, pacemaker, prostate cancer status post prostatectomy, and chronic indwelling Mnotgomery catheter. He had 50+-pack-year smoking history. Quit last year. Upon evaluation at the ED, blood pressure was elevated to 186/77, he was on nonrebreather mask saturating 97%. Blood work did not show any leukocytosis. Hemoglobin and hematocrit were stable. Electrolytes were normal. Kidney function normal. Lactic acid 1.2. Troponin was negative. EKG showed bifascicular block. Chest x-ray showed mild pulmonary vascular congestion. He was given IV Solu-Medrol and diuretics. He was given nebulizer treatment. He was admitted for acute COPD exacerbation. He was admitted to telemetry. He was closely followed by radio electronics officer. He was continued on nebulizer treatment. Fluid status was monitored. IV steroids tapered. ID was consulted. Blood culture from admission grew coagulase-negative Staphylococcus. He was started empirically on Rocephin. Echocardiogram showed ejection fraction of 55%. Repeat chest x-ray with persistence of pulmonary vascular congestion. Blood glucose was elevated. Insulin sliding scale was ordered. Full treatment was not carried out as patient left against medical advise. FINAL DIAGNOSES: Chronic obstructive pulmonary disease with acute exacerbation Acute on chronic respiratory acidosis Paroxysmal bronchospasm Hypertension, resolved Acute diastolic congestive heart failure Permanent pacemaker Chronic indwelling Montgomery catheter with no signs of acute infection DISPOSITION: Patient left against medical advise. I have been assigned to complete a discharge summary on this account, I was not involved with the patient's management.--BOLIVAR Ponce Jacqueline Robles NP Jan 24, 2019 08:06
== END 2019-01-22 14:37 | disposition left against medical advice (07) | DRG 190 ==
LOC: EDBD 17:10 → EMR 17:33 → EDBEDREQ 19:03 → 2W 19:37 → EDBEDREQ 19:56 → 2W 22:27 → 2E 01-21 21:55
DX: J44.1 Chronic obstructive pulmonary disease with (acute) exacerbation (principal); I50.31 Acute diastolic (congestive) heart failure; E87.2 Acidosis; J96.12 Chronic respiratory failure with hypercapnia; I25.10 Atherosclerotic heart disease of native coronary artery without angina pectoris; Z95.0 Presence of cardiac pacemaker; Z85.46 Personal history of malignant neoplasm of prostate; Z90.79 Acquired absence of other genital organ(s); Z87.891 Personal history of nicotine dependence; I11.0 Hypertensive heart disease with heart failure; J98.01 Acute bronchospasm
CPT/HCPCS: 36415; 36600; 71045; 80053; 81003; 82803; 82962; 83605; 83880; 84443; 84484; 85025; 87040; 87181; 93005; 93306; 94640; 96374; 96375; 99291; J1815; J7620

== ENCOUNTER 2019-03-05 18:07 | Emergency (ER) | payer MEDICARE, OTHER ==
[~2019-03-05] VITALS: Ht 182.9 cm; Wt 77.1 kg
[~2019-03-05 18:07] MED LIST changes: +ATORVASTATIN CA20 MG ORAL; +CARVEDILOL6.25 MG ORAL; +ELIQUIS5 MG PO; +FLOMAX0.4 MG ORAL; +LEVALBUTER0.31 MG/3 IH; +NASONEX17 GM INH; +PREDNISONE20 MG ORAL; +STIOLTO RESPIMAT4 GM IH; +UNOBMED; +VIBRAMYCIN100 MG ORAL
[2019-03-05 18:32] VITALS: BP 164/86
--- NOTE | 2019-03-05 18:39 | Emergency Room Report ---
History of Present Illness General Chief Complaint: Male Urogenital Problems Source: Patient Present Illness HPI 73-year-old male history of COPD history of urinary retention in the past, history of BPH, Montgomery dependent presents with acute urinary retention after a Montgomery was removed today on his discharge, symptoms started prior to arrival, patient unable to urinate and void completely, patient presents for evaluation he endorses suprapubic pain worsened when he cannot urinate relieved when he urinates severity is severe, Allergies: Coded Allergies: No Known Allergies (Unverified , 10/24/16) Patient History Past Medical History: see triage record Reviewed Nursing Documentation: PMH: Agreed; PSxH: Agreed Nursing Documentation-PMH Past Medical History: No History, Except For Hx Pacemaker: Yes - LEFT UPPER CHEST Hx COPD: Yes Hx Cancer: Yes Hx Gastrointestinal Problems: No Hx Neurological Problems: No Review of Systems All Other Systems: negative except mentioned in HPI Physical Exam Vital Signs Date Time Temp Pulse Resp B/P (MAP) Pulse Ox O2 Delivery O2 Flow Rate FiO2 03/05/19 18:14 97.9 98 22 164/86 (112) 100 Room Air Sp02 EP Interpretation: reviewed, normal General Appearance: well appearing, no apparent distress, alert Head: normocephalic, atraumatic Eyes: bilateral eye PERRL, bilateral eye EOMI ENT: uvula midline, moist mucus membranes Neck: supple, thyroid normal, supple/symm/no masses Respiratory: lungs clear, no respiratory distress, no retraction, no accessory muscle use Cardiovascular #1: normal peripheral pulses, regular rate, rhythm, no edema, no gallop, no murmur Gastrointestinal: other - Prepubic fullness, tenderness to palpation suprapubically no rebound no guarding Musculoskeletal: normal inspection Neurologic: alert, oriented x3 Psychiatric: anxious Skin: no rash, warm/dry Medical Decision Making Diagnostic Impression: Primary Impression: Acute urinary retention ER Course 73-year-old male presents with acute urinary retention differential diagnosis includes BPH, UTI Montgomery was inserted emergently with significant improvement in symptoms, converted to leg bag and patient was discharged patient will follow-up with his doctors at the [facility] Last Vital Signs Date Time Temp Pulse Resp B/P (MAP) Pulse Ox O2 Delivery O2 Flow Rate FiO2 03/05/19 18:32 97.9 80 22 164/86 100 Room Air Disposition: HOME, SELF-CARE Condition: Stable Referrals: [facility] Patient Instructions: Acute Urinary Retention, Male, [id number], Montgomery Catheter Care, Adult, [id number] Additional Instructions: The patient was provided with discharge instructions, notified to follow-up with a primary care doctor and or specialist in the next 24-48 hours, and to return to the ED if they have worsening of their symptoms. Please note that this report is being documented using WeVideo technology. This can lead to erroneous entry secondary to incorrect interpretation by the dictating instrument. Asif Tobin MD Mar 05, 2019 18:39
[2019-03-05 18:53] VITALS: BP 155/74
== END 2019-03-05 18:55 | disposition home or self-care (01) ==
LOC: EMR 18:40
DX: R33.9 Retention of urine, unspecified (principal); Z95.0 Presence of cardiac pacemaker; J44.9 Chronic obstructive pulmonary disease, unspecified; Z85.9 Personal history of malignant neoplasm, unspecified
CPT/HCPCS: 99281

== ENCOUNTER 2019-03-23 16:33 | Inpatient (IN) | payer MEDICARE, OTHER ==
[~2019-03-23] VITALS: Ht 182.9 cm; Wt 80.7 kg
[2019-03-23] MEDS ORDERED: Aspirin Baby 81mg ORAL ONE (16:45)
[2019-03-23] MEDS ORDERED: Solu-MEDROL 125mg Inj IVP ONE (16:45)
--- NOTE | 2019-03-23 16:46 | Emergency Room Report ---
History of Present Illness General Chief Complaint: SOB Source: Patient Present Illness HPI Disclaimer: Please note that this report is being documented using DRAGON technology. This can lead to erroneous entry secondary to incorrect interpretation by the dictating instrument. HPI: 73-year-old male with a history of ischemic heart disease status post pacemaker, COPD with extensive smoking history, prostate cancer status post prostatectomy presents for evaluation of shortness of breath. Symptoms began 1 hour ago while he was grocery shopping. Notes chest tightness and pressure over the sternum and difficulty drawing a deep breath. Denies syncope. Denies pain radiating to the jaw or shoulder. Denies nausea, vomiting, diaphoresis. He has not used his albuterol inhaler since symptom onset. States he is compliant with his medication otherwise. Denies pain radiating to the back. Denies any fevers, chills or sputum production recently. PMH: COPD, CAD PSH: Pacemaker placement Allergies: None reported Social Hx: Extensive smoking history, quit last year Allergies: Coded Allergies: No Known Allergies (Unverified , 10/24/16) Nursing Documentation-PMH Hx Pacemaker: Yes - LEFT UPPER CHEST Hx COPD: Yes Hx Cancer: Yes Hx Gastrointestinal Problems: No Hx Neurological Problems: No Review of Systems All Other Systems: negative except mentioned in HPI Physical Exam Vital Signs Date Time Temp Pulse Resp B/P (MAP) Pulse Ox O2 Delivery O2 Flow Rate FiO2 03/23/19 16:48 99.1 78 21 156/61 (92) 90 Room Air 03/23/19 17:42 2.0 03/23/19 17:50 21 General: Awake and alert, moderate respiratory distress HEENT: NC/AT. EOMI. Cardiovascular: RRR. S1 and S2 normal. No murmur appreciated Resp: Audible stridor and wheezes. Increased work of breathing and tachypnea. No cough. Bilateral expiratory and inspiratory wheezes at the bases. No crackles Skin: Intact. No abrasions, laceration or rash over the exposed skin MSK: Normal tone and bulk. Moving all extremities. No obvious deformity. Neuro: Awake and alert. Mentating appropriately. Medical Decision Making Diagnostic Impression: Primary Impression: COPD exacerbation Additional Impressions: KAYLAN (acute kidney injury) Dehydration ER Course 73-year-old male presents for evaluation of sudden onset dyspnea. He arrives in moderate respiratory distress, tachypneic increased work of breathing and wheezes consistent with a COPD exacerbation though pneumonia, bronchitis, pneumothorax, ACS are also on the differential. Start broad work-up and treat with breathing treatments, IV fluids. Will send broad labs. Laboratory Tests Test 03/23/19 16:45 03/23/19 17:56 03/23/19 19:05 White Blood Count 7.9 K/UL (4.8-10.8) Red Blood Count 5.23 M/UL (4.70-6.10) Hemoglobin 14.7 G/DL (14.2-18.0) Hematocrit 46.4 % (42.0-52.0) Mean Corpuscular Volume 89 FL (80-99) Mean Corpuscular Hemoglobin 28.2 PG (27.0-31.0) Mean Corpuscular Hemoglobin Concent 31.8 G/DL (32.0-36.0) L Red Cell Distribution Width 11.4 % (11.6-14.8) L Platelet Count 264 K/UL (150-450) Mean Platelet Volume 7.1 FL (6.5-10.1) Neutrophils (%) (Auto) 64.4 % (45.0-75.0) Lymphocytes (%) (Auto) 20.6 % (20.0-45.0) Monocytes (%) (Auto) 7.6 % (1.0-10.0) Eosinophils (%) (Auto) 6.0 % (0.0-3.0) H Basophils (%) (Auto) 1.4 % (0.0-2.0) Sodium Level 149 MMOL/L (136-145) H Potassium Level 3.8 MMOL/L (3.5-5.1) Chloride Level 110 MMOL/L (98-107) H Carbon Dioxide Level 33 MMOL/L (21-32) H Anion Gap 7 mmol/L (5-15) Blood Urea Nitrogen 23 mg/dL (7-18) H Creatinine 1.4 MG/DL (0.55-1.30) H Estimate Glomerular Filtration Rate mL/min (>60) Glucose Level 110 MG/DL (74-106) H Calcium Level 9.2 MG/DL (8.5-10.1) Total Bilirubin 0.2 MG/DL (0.2-1.0) Aspartate Amino Transferase (AST) 12 U/L (15-37) L Alanine Aminotransferase (ALT) 24 U/L (12-78) Alkaline Phosphatase 87 U/L (46-116) Troponin I 0.010 ng/mL (0.000-0.056) Pro-B-Type Natriuretic Peptide 158 pg/mL (0-125) H Total Protein 7.2 G/DL (6.4-8.2) Albumin 3.3 G/DL (3.4-5.0) L Globulin 3.9 g/dL Albumin/Globulin Ratio 0.8 (1.0-2.7) L Arterial Blood pH 7.429 (7.350-7.450) 7.442 (7.350-7.450) Arterial Blood Partial Pressure CO2 44.2 mmHg (35.0-45.0) 39.8 mmHg (35.0-45.0) Arterial Blood Partial Pressure O2 63.6 mmHg (75.0-100.0) L 71.1 mmHg (75.0-100.0) L Arterial Blood HCO3 28.6 mmol/L (22.0-26.0) H 26.5 mmol/L (22.0-26.0) H Arterial Blood Oxygen Saturation 92.2 % (95-100) L 95.3 % (95-100) Arterial Blood Base Excess 3.7 (-2-2) H 2.3 (-2-2) H Dewayne Test Positive Positive EKG Diagnostic Results EKG Time: 17:08 Rate: normal Rhythm: NSR ST Segments: no acute changes Other Impression Sinus rhythm, left axis deviation, normal intervals. Possible right bundle branch block. Q waves in the septal leads, nonspecific T wave abnormalities Rhythm Strip Diag. Results Rhythm Strip Time: 17:08 EP Interpretation: yes Rate: 6s Rhythm: NSR, no PVC's, no ectopy Chest X-Ray Diagnostic Results Chest X-Ray Diagnostic Results : Chest X-Ray Ordered: Yes # of Views/Limited/Complete: 1 View Indication: Shortness of Breath EP Interpretation: Yes Interpretation: no consolidation, no effusion, no pneumothorax, no acute cardiopulmonary disease Impression: No acute disease Electronically Signed by: Electronically signed by Dr. David Canales Reevaluation Time: 21:00 Status: improved Reevaluation Impression EKG does not show overt signs of ischemia. Chest x-ray does not show infiltrate , effusion or pneumothorax. Labs largely within normal limits aside from CO2 retention on VBG mild hypoxia on VBG which is improving with nasal cannula. The patient had significant improvement after receiving steroids and breathing treatments that BiPAP was deferred. White count within normal limits. Elevation of creatinine at 1.4 and BUN at 23 with increased and sodium consistent with dehydration. Troponin negative. BN peptide slightly elevated but not significant at 158. Patient will be admitted for KAYLAN, dehydration and COPD exacerbation. Will admit to telemetry. Disposition: ADMITTED INPATIENT Condition: Serious David Canales MD Mar 23, 2019 16:46
--- NOTE | 2019-03-23 16:55 | NUR ---
ED Nurse Note: Patient walked into ED from home c/o dyspnea for 1 hour prior to arrival to ED. patient c/o chest pain on the left upper chest. patient is a/o x3, patient was wheeled into the room. patient is significantly short of breath. DR Canales at bedside. patient on a hospital gown, on a cafeteria monitor.
[2019-03-23] MEDS: Ipratropium 0.02% Inh Soln 2.5ml UD HHN SCH ×3 (17:00→17:50)
[2019-03-23] MEDS: Albuterol ud Inhalation HHN SCH ×3 (17:00→17:50)
[2019-03-23 17:15] LABS: BASOPHILS % (AUTO) 1.4 % (0.0-2.0); HEMATOCRIT 46.4 % (42.0-52.0); HEMOGLOBIN 14.7 G/DL (14.2-18.0); LYMPHOCYTES % (AUTO) 20.6 % (20.0-45.0); MEAN CORPUSCULAR VOLUME 89 FL (80-99); MONOCYTES % (AUTO) 7.6 % (1.0-10.0); NEUTROPHILS % (AUTO) 64.4 % (45.0-75.0); PLATELET COUNT 264 K/UL (150-450); RED BLOOD COUNT 5.23 M/UL (4.70-6.10); RED CELL DISTRIBUTION WIDTH 11.4 % (11.6-14.8); WHITE BLOOD COUNT 7.9 K/UL (4.8-10.8)
[2019-03-23 17:17] LABS: ANION GAP 7 mmol/L (5-15); BLOOD UREA NITROGEN 23 mg/dL (7-18); CALCIUM 9.2 MG/DL (8.5-10.1); CARBON DIOXIDE 33 MMOL/L (21-32); CHLORIDE 110 MMOL/L (98-107); CREATININE 1.4 MG/DL (0.55-1.30); POTASSIUM 3.8 MMOL/L (3.5-5.1); SODIUM 149 MMOL/L (136-145)
--- NOTE | 2019-03-23 17:20 | Diagnostic Imaging Report ---
Indication: Shortness of breath Technique: One view of the chest Comparison: 03/04/2019 Findings: Inspiration is suboptimal. There is a left chest unifocal pacemaker noted. There is mild central bronchial wall thickening. Lungs and pleural spaces are otherwise clear. The heart size is normal. Impression: No acute process
[2019-03-23 17:28] LABS: ALANINE AMINOTRANSFERASE 24 U/L (12-78); ALBUMIN 3.3 G/DL (3.4-5.0); ALBUMIN/GLOBULIN RATIO 0.8 (1.0-2.7); ALKALINE PHOSPHATASE 87 U/L (46-116); ASPARTATE AMINO TRANSFERASE 12 U/L (15-37); BILIRUBIN,TOTAL 0.2 MG/DL (0.2-1.0)
[2019-03-23 17:42] VITALS: BP 156/61
--- NOTE | 2019-03-23 18:21 | NUR ---
ED Nurse Note: patient on a facemask 6L as per Dr. Canales's verbal order. ordered repear ABG after 30 minutes.
--- NOTE | 2019-03-23 18:28 | NUR ---
ED Nurse Note: per Dr. Canales to hold onto the patient's transfer until 2nd ABG is resulted.
--- NOTE | 2019-03-23 19:03 | NUR ---
ED Nurse Note: RT called again for ABG
--- NOTE | 2019-03-23 19:16 | NUR ---
HAND-OFF: Report given to René MCKEON.
--- NOTE | 2019-03-23 19:20 | NUR ---
ED Nurse Note: received report from Aide negron. will resume care of pt. pt vss, nad. will continue to monitor pt
[2019-03-23 19:50] VITALS: BP 147/66
[2019-03-23 21:00] VITALS: BP 142/89
--- NOTE | 2019-03-23 21:00 | NUR ---
ED Nurse Note: GAVE REPORT TO EMIL MCKEON.
--- NOTE | 2019-03-23 21:05 | NUR ---
ED Nurse Note: PT REFUSED 3RD REPEAT ABG. ERMD AWARE.
--- NOTE | 2019-03-23 21:10 | NUR ---
TRANSFER TO FLOOR: Patient transferred to [facility] via gurney accompanied by 2 rn in stable condition as ordered, per dr gonzalez . Report given to Jennifer negron. Belongings and medications sent with patient.
[2019-03-23 21:15] VITALS: BP 135/71
--- NOTE | 2019-03-23 21:25 | NUR ---
NURSE NOTES: Received report from René Sears RN. Patient arrived on the unit @2114 via gurney, accompanied by the ED RN, Eddie. Patient is awake, alert, and responsive. Patient is on a simple face-mask @5L due to the chief C/O SOB, but patient currently denies any SOB or any other chest pain. Patient was able to assist in transfer from the gurney on to the bed. Placed patient on a cardiac monitor technician, with reading of SR with BBB. Patient had ABG's drawn in the ED x2, but refused the 3rd attempt. Per RT suggestion patient should be on PRN BIPAP once MD orders are placed. IV access is on the RAC, 20G, patent, intact, and saline locked. Current VS: B/P135/71, HR75, RR24, T97.0, and O2Sat at 96% on the mask. Advised patient to wait until we receive diet orders before he eats, but patient refused and started eating his own food. Patient currently denies any pain or discomfort. Patient's belongings list reviewed and signed. Contacted primary doctor, Doctor Shah to obtain admission orders. Left a voicemail, awaiting response. Patient is not in any distress, all other needs attended to, will continue to monitor.
[2019-03-24] VITALS: BP 143/87
[2019-03-24] MEDS ORDERED: LORazepam 0.5mg tab ORAL PRN (01:45)
[2019-03-24] MEDS: Albuterol/Ipratropium 3ml neb HHN SCH ×6 (03:00→23:00)
[2019-03-24 04:00] VITALS: BP 142/87
[2019-03-24] MEDS: Nitroglycerin 2% oint pkt TOPIC SCH ×3 (06:00→17:30)
[2019-03-24] MEDS: Solu-MEDROL 40mg Inj IVP SCH ×3 (06:24→21:14)
--- NOTE | 2019-03-24 07:20 | NUR ---
NURSE NOTES: Received report from LINDA Rodriguez. The patient is resting on the bed without acute distress or shortness of breath. The patient's bed in the lowest position, call light in reach, and fall and aspiration precaution reinforced. IV site intact and patent and running IVF as ordered. Oxygen therapy per order. Will continue plan of care.
--- NOTE | 2019-03-24 07:34 | NUR ---
HAND-OFF: Report given to LINDA Daily. Charlene in stable condition.
[2019-03-24 08:00] VITALS: BP 146/89
--- NOTE | 2019-03-24 09:43 | NUR ---
CASE MANAGEMENT: FAXED ER NOTES, CXR AND MED LIST TO [facility] T: [phone] F: [phone]
[2019-03-24] MEDS: Carvedilol 6.25mg Tab ORAL SCH ×2 (09:50→21:13)
[2019-03-24] MEDS: Eliquis 5mg tablet ORAL SCH ×2 (09:51→17:30)
--- NOTE | 2019-03-24 11:15 | History and Physical Report ---
DATE OF ADMISSION: 03/23/2019 CARDIOLOGY EVALUATION CONSULTING PHYSICIAN: Michele Shah M.D. REFERRING PHYSICIAN: Syed Rashid M.D. REASON FOR ADMISSION: Respiratory distress in the setting of cardiomyopathy and cardiac defibrillator. HISTORY OF PRESENT ILLNESS: This is a 73-year-old male with a known history of dilated ischemic cardiomyopathy with systolic and diastolic congestive heart failure and a cardiac defibrillator. He has known history of COPD. He has been in and out of the hospital over the past month. He left here AMA last around Doretha time. He has been compliant with most medications, but did not have nebs and did not use his inhalers. Today, he began experiencing increasing shortness of breath while grocery shopping and some tightness in his chest. No shock from his defibrillator. No palpitations. No diaphoresis, nausea, or vomiting. He came to the emergency room and based on clinical findings, hospitalization recommended. PAST MEDICAL HISTORY: Ischemic heart disease, hypertension, COPD, cardiac defibrillator, prostate cancer with prostatectomy, hyperlipidemia, paroxysmal atrial and ventricular arrhythmias, and history of intracardiac thrombus. SOCIAL HISTORY: Former smoker, 50-plus pack-years, quit last year. No alcohol or substance abuse. ALLERGIES: None known. MEDICATIONS: Reviewed and reconciled. REVIEW OF SYSTEMS: No fever or chills. No loss of vision or hearing. No history of abnormal blood clotting. He has been on steroids in the past. He had an echocardiogram last month that revealed an ejection fraction of 35%. His defibrillator was interrogated then as well and functioning appropriately. There is no history of seizure or stroke. He has history of prostate cancer. on anti-lipid drugs. There is no history of diabetes. He has not had any change in bowel habits. PHYSICAL EXAMINATION: VITAL SIGNS: Blood pressure 156/61, heart rate 78, respiratory rate 21, temperature 99.1, and oxygen saturation on 2 L 90%. GENERAL: Moderate respiratory distress. Accessory muscle use. LUNGS: Diminished breath sounds. Expiratory wheezes. CARDIAC: Regular rhythm and rate. Normal S1, S2. A 1/6 systolic apical murmur. ABDOMEN: Soft. EXTREMITIES: No edema. NEUROLOGIC: Nonfocal. LABORATORY AND DIAGNOSTIC DATA: White count 7.9, hemoglobin 14.7. Glucose 110, BUN 23, creatinine 1.4, sodium 149, potassium 3.8, chloride 110, bicarb 33. ABG, pH 7.43, pCO2 of 44, and pO2 of 64. EKG, sinus rhythm and nonspecific ST-T wave changes with right bundle-branch block. Chest x-ray, no acute process. IMPRESSION: 1. COPD with acute exacerbation. 2. Acute bronchospasm. 3. Chronic systolic and diastolic congestive heart failure. 4. Dehydration. 5. Hypernatremia. 6. Hyperchloremia. 7. Prerenal azotemia. 8. Hypoxia. 9. Cardiac defibrillator. 10. Ischemic cardiomyopathy. PLAN: 1. Inhaled bronchodilators. 2. Intravenous steroids. 3. Respiratory hygiene. 4. Cardiac monitoring. 5. Titrate and optimize anti-failure and antianginal regimen. 6. Continue full anticoagulation. 7. We will follow closely during hospital course. Michele Shah M.D. DR: Yolis JOB#: [id number] CC: JACKELIN
--- NOTE | 2019-03-24 11:48 | NUR ---
CASE MANAGEMENT: 73 Y/O MALE FROM HOME CC: DYSPNEA/ RESPIRATORY DISTRESS SI: COPD 99.1 21 78 156/91 90% RA ABG~Pc02 44.2 Po2 63.6 HCO3 28.6 O2 SAT 92.2 NA 149 CO2 33 BUN 23 CREAT 1.4 GLU 110 AST 12 BNP 158 TROP 0.001 ALB 3.3 IS: ALBUTEROL/ ATROVENT HHN SOLU-MEDROL 125 MG ASA 162 MG CXR ~~~~~ TELEMETRY 2 EAST
[2019-03-24 12:00] VITALS: BP 142/91
--- NOTE | 2019-03-24 12:00 | NUR ---
NURSE NOTES: The patient is stable without acute distress or shortness of breath. Will continue plan of care.
--- NOTE | 2019-03-24 15:30 | NUR ---
NURSE NOTES: The patient is stable without acute distress or shortness of breath. Will continue plan of care.
[2019-03-24 16:00] VITALS: BP 136/79
--- NOTE | 2019-03-24 19:30 | NUR ---
NURSE NOTES: Received patient from Abimbola MCKEON. Patient in bed, on 4L NC, no c/o SOB, no signs of respiratory distress. Alert and oriented x 3 to self, place and situation. Bed in low position, locked, call light within reach. 20gauge piv on right ac intact, with 1/2NS infusing at 75ml/hr. No signs of infiltration. Dressing dry and intact.
--- NOTE | 2019-03-24 19:30 | NUR ---
HAND-OFF: Report given to LINDA Hilario. The patient is resting on the bed without acute distress or shortness of breath. The patient's bed in the lowest position, call light in reach, and fall and aspiration precaution reinforced. IV site intact and patent and running IVF per order. Oxygen therapy per order. Endorsed plan of care.
[2019-03-24 20:00] VITALS: BP 140/79
[2019-03-24] MEDS: Tamsulosin 0.4mg cap ORAL SCH (21:12)
[2019-03-24] MEDS: Atorvastatin 20mg tab ORAL SCH (21:13)
[2019-03-25] VITALS (7 sets, daily range): BP systolic 122–144; BP diastolic 76–88
[2019-03-25] MEDS: Albuterol/Ipratropium 3ml neb HHN SCH ×5 (01:39→19:46)
[2019-03-25] MEDS: Solu-MEDROL 40mg Inj IVP SCH ×3 (06:52→22:31)
[2019-03-25] MEDS: Nitroglycerin 2% oint pkt TOPIC SCH ×3 (06:52→17:01)
--- NOTE | 2019-03-25 08:00 | NUR ---
Am rounds made, patient is in the bed alert and awake. Respiration is even and unlabored. Patient denies any pain and discomfort. IV fluid is in place and infusing properly. Placed call light within reach.
[2019-03-25] MEDS: Eliquis 5mg tablet ORAL SCH ×2 (08:56→17:00)
[2019-03-25] MEDS: Carvedilol 6.25mg Tab ORAL SCH ×2 (08:56→22:30)
--- NOTE | 2019-03-25 19:34 | NUR ---
HAND-OFF: Report given to LINDA Hilario.
--- NOTE | 2019-03-25 20:00 | NUR ---
NURSE NOTES: Transferred patient to [facility]. Patient in stable condition. Awake, alert and oriented x3. No signs of respiratory distress. On 4L NC. Bed locked, in low position, bed alarm on, call light within reach. Report given to Ritu MCKEON. Plan of care endorsed.
--- NOTE | 2019-03-25 20:30 | NUR ---
NURSE NOTES: PATIENT WAS SAFELY TRANSFERRED TO UNIT FROM . RECEIVED REPORT FROM LINDA LE. BELONGING LIST REVIEWED AND SIGNED WITH PATIENT. PATIENT IS AWAKE, AAOX3, ON ROOM AIR, NO ACUTE DISTRESS NOTED. IV ON RIGHT FA 22G, AND RIGHT AC 20G IS INTACT AND PATENT. PACEMAKER NOTED ON LEFT CHEST. BED IS LOCKED AND LOW, BED ALARMS ACTIVE, SIDE RAILS UPX2 AND CALL LIGHT IS WITHIN REACH. WILL CONTINUE TO MONITOR.
[2019-03-25] MEDS: Atorvastatin 20mg tab ORAL SCH (22:30)
[2019-03-25] MEDS: Tamsulosin 0.4mg cap ORAL SCH (22:31)
[2019-03-26] VITALS: BP 146/87
[2019-03-26] MEDS: Albuterol/Ipratropium 3ml neb HHN SCH ×7 (00:08→23:41)
[2019-03-26 04:00] VITALS: BP_SYST 137; BP_SYST 160; BP_DIAS 76; BP_DIAS 87
--- NOTE | 2019-03-26 04:30 | Progress Note ---
DATE: 03/25/2019 INTERNAL MEDICINE PROGRESS NOTE SUBJECTIVE: The patient has some congestion still. He has a very good appetite. Monitored rhythm is sinus with demand pacing. OBJECTIVE: VITAL SIGNS: Blood pressure 134/85, pulse 71, respirations 18, and afebrile. Oxygen saturation 95% on nasal cannula. LUNGS: Few rhonchi. Diminished breath sounds. HEART: Regular rhythm and rate. Normal S1, S2. ABDOMEN: Soft. EXTREMITIES: No edema. IMPRESSION: 1. Chronic obstructive pulmonary disease exacerbation, improved. 2. Chronic diastolic and systolic congestive heart failure. 3. Permanent pacemaker. PLAN: 1. Taper steroids. 2. Discontinue intravenous fluids. 3. Taper oxygen. 4. Discharge planning. Michele Shah M.D. DR: MICHAEL JOB#: [id number] CC:
[2019-03-26] MEDS: Nitroglycerin 2% oint pkt TOPIC SCH (06:43)
[2019-03-26 06:59] LABS: HEMATOCRIT 41.9 % (42.0-52.0); HEMOGLOBIN 13.6 G/DL (14.2-18.0); MEAN CORPUSCULAR VOLUME 89 FL (80-99); PLATELET COUNT 264 K/UL (150-450); RED CELL DISTRIBUTION WIDTH 13.2 % (11.6-14.8); WHITE BLOOD COUNT 18.6 K/UL (4.8-10.8)
[2019-03-26 07:28] LABS: ALANINE AMINOTRANSFERASE 26 U/L (12-78); ALBUMIN 2.9 G/DL (3.4-5.0); ALKALINE PHOSPHATASE 85 U/L (46-116); ANION GAP 9 mmol/L (5-15); ASPARTATE AMINO TRANSFERASE 13 U/L (15-37); BILIRUBIN,TOTAL 0.2 MG/DL (0.2-1.0); BLOOD UREA NITROGEN 31 mg/dL (7-18); CALCIUM 8.5 MG/DL (8.5-10.1); CARBON DIOXIDE 26 MMOL/L (21-32); CHLORIDE 104 MMOL/L (98-107); CREATININE 1.2 MG/DL (0.55-1.30); POTASSIUM 4.1 MMOL/L (3.5-5.1); SODIUM 139 MMOL/L (136-145)
--- NOTE | 2019-03-26 07:49 | NUR ---
NURSE NOTES: Received report from Jade, RN. Patient A&Ox4. No signs of distress. IV intact, patent, and infusing IV fluids. Montgomery intact, patent, and draining urine. Bed in lowest position with call light in reach.
--- NOTE | 2019-03-26 07:56 | NUR ---
HAND-OFF: Report given to LINDA Bunn.
[2019-03-26 08:00] VITALS: BP 139/76
[2019-03-26] MEDS: Eliquis 5mg tablet ORAL SCH ×2 (08:58→18:38)
[2019-03-26] MEDS: Carvedilol 6.25mg Tab ORAL SCH ×2 (08:58→20:48)
[2019-03-26] MEDS ORDERED: Solu-MEDROL 40mg Inj IVP SCH (09:00)
[2019-03-26] MEDS ORDERED: Albuterol/Ipratropium 3ml neb HHN ONE (10:00)
--- NOTE | 2019-03-26 10:02 | NUR ---
DISCHARGE PLANNING PATIENT HAS BEEN REFERRED TO [facility]
--- NOTE | 2019-03-26 10:30 | NUR ---
NURSE NOTES: Patient complained of severe chest pain and appeared to have shortness of breath. RN contacted MD, Dr. Shah. MD only gave orders for additional breathing treatment. RN called RT and RT checked patient. Patient discussed with RT that his breathing is less of the problem and more the chest pain. RN then called MD for pain medication. No orders for pain medication were given, rather enforcement of a stat breathing treatment. MD stated that Tylenol would be sufficient. Orders carried out. Charge nurse aware.
[2019-03-26 12:00] VITALS: BP 114/59
--- NOTE | 2019-03-26 14:01 | NUR ---
*-* INSURANCE *-* ALL CLINICALS AND REVIEWS HAVE BEEN FAXED TO: [facility] T: [phone] F: [phone] Addendum: 03/26/19 at 1406 by WHITNEY AYALA CLINICALS FAXED TO: [facility] #[phone] EXT [id number] FAX#[phone] REVIEWS/CLINICALS
[2019-03-26 16:00] VITALS: BP 136/82
--- NOTE | 2019-03-26 16:14 | NUR ---
DISCHARGE PLANNING DISCHARGE PLAN DISCUSSED WITH DR HERNÁNDEZ. THE PLAN HAS CHANGED PATIENT WAS [facility] BUT NO BEDS AVAILABLE [facility] [address] [facility] [address] T:[id number] ROOM 11A THEY ARE EXPECTING PATIENT TOMORROW 03/27/19 Addendum: 03/29/19 at 1121 by WHITNEY AYALA CM SPOKE TO VINCE PATIENT WENT AMA SAME DAY STATING THEY HAD STOLEN HIS SHOES HE WALKED TO BUS STOP THEY FOLLOWED AND TRY CONVINCING PATIENT TO COME BACK WITH [facility]
--- NOTE | 2019-03-26 16:20 | NUR ---
CASE MANAGEMENT:REVIEW 03/26/19 SI: COPD. CHF 98.0 72 22 114/59 90% ON 3L/NC WBC+18.6 BUN+31 GLUCOSE+276 IS: PREDNISONE PO QD IV LASIX X1 FLOMAX PO QHS COREG PO Q12 ELIQUIS PO BID DUONEB HHN Q4HRS RTC : MED/SURG STATUS 4 EAST PLAN: DISCHARGE PLAN TO SNF FOR CONTINUED RESPIRATORY STABILIZATION
--- NOTE | 2019-03-26 19:31 | NUR ---
HAND-OFF: Report given to LINDA Hansen.
--- NOTE | 2019-03-26 19:59 | NUR ---
NURSE NOTES: RECEIVED PATIENT FROM LINDA PAGE. PT IS AWAKE, AAOX3, ON ROOM AIR, NO ACUTE DISTRESS NOTED. IV ON RIGHT FA AND RIGHT AC ARE INTACT AND PATENT. FALCON CATH IS INTACT AND PATENT, DRAINING WELL. FALCON ANCHOR IN PLACE. BED IS LOCKED AND LOW, BED ALARMS ACTIVE, SIDE RAILS UP X2, AND CALL LIGHT IS WITHIN REACH. WILL CONTINUE TO MONITOR.
[2019-03-26 20:00] VITALS: BP_SYST 139; BP_SYST 141; BP_DIAS 84
[2019-03-26] MEDS: Atorvastatin 20mg tab ORAL SCH (20:48)
[2019-03-26] MEDS: Tamsulosin 0.4mg cap ORAL SCH (20:48)
--- NOTE | 2019-03-26 23:15 | Progress Note ---
DATE: 03/26/2019 INTERNAL MEDICINE PROGRESS NOTE SUBJECTIVE: Still with some congestion and occasional chest pain with deep inspiration. OBJECTIVE: VITAL SIGNS: Blood pressure 136/82, pulse 73, respiratory rate 22, and afebrile. LUNGS: Lungs with coarse breath sounds and rhonchi. No wheezes. CARDIAC: Regular rhythm and rate. Normal S1 and S2. ABDOMEN: Soft. EXTREMITIES: No edema. IMPRESSION: 1. Chronic obstructive pulmonary disease exacerbation. 2. Steroid-associated leukocytosis. 3. Steroid-associated hyperglycemia. 4. Moderate protein-calorie malnutrition. 5. Acute on chronic diastolic congestive heart failure. 6. Permanent pacemaker. 7. Resolved dehydration and hypernatremia. PLAN: 1. Taper steroids. 2. Inhaled bronchodilators. 3. Diuresis. 4. Titrate anti-failure regimen. 5. Outpatient pacemaker interrogation. 6. Consideration for prison facility for interim rehabilitation. Michele Shah M.D. DR: ABBEY JOB#: [id number] CC:
[2019-03-27] VITALS: BP 139/84
[2019-03-27] MEDS: Albuterol/Ipratropium 3ml neb HHN SCH ×3 (03:29→11:07)
[2019-03-27] MEDS ORDERED: ATIVAN0.5 MG ORAL (04:55)
[2019-03-27] MEDS ORDERED: DUONEB 0.5-3(2.53 ML HHN (04:58)
[2019-03-27] MEDS ORDERED: PREDNISONE20 M1 PO (05:00)
--- NOTE | 2019-03-27 07:38 | NUR ---
NURSE NOTES: Received report from Jade, RN. Patient in bed, sleeping. On room air, no signs of distress or labored breathing. IV intact and saline locked. Bed in lowest position with call light in reach. Will continue with plan of care.
--- NOTE | 2019-03-27 07:51 | NUR ---
HAND-OFF: Report given to LINDA Bunn.
[2019-03-27 08:00] VITALS: BP 135/85
[2019-03-27] MEDS: Carvedilol 6.25mg Tab ORAL SCH (09:19)
[2019-03-27] MEDS: Eliquis 5mg tablet ORAL SCH (09:20)
[2019-03-27 12:00] VITALS: BP 127/81
--- NOTE | 2019-03-27 13:13 | NUR ---
NURSE NOTES: Gave report to LINDA Hamilton at [facility]. Charge nurse aware.
--- NOTE | 2019-03-27 13:40 | NUR ---
NURSE NOTES: Patient refused to have Montgomery catheter removed for discharge. RN explained risks of continuing to have catheter. Patient insisted, stating the he "cannot pee without the catheter." Will notify nurse from [facility] to follow up.
[2019-03-27] MEDS ORDERED: 1/2 NS 1000ml IV ONE (13:54)
--- NOTE | 2019-03-27 13:55 | NUR ---
NURSE NOTES: Patient discharged to [facility] via [facility] in stable condition. RN gave report to Jeff Eason and Felix Be of [facility] [address].
--- NOTE | 2019-03-27 14:09 | NUR ---
NURSE NOTES: Endorsed to LINDA Hamilton at [facility] to follow up with discontinuation of maldonado catheter.
--- NOTE | 2019-03-29 11:48 | Discharge Summary ---
Discharge Summary Discharge Summary _ DATE OF ADMISSION: 03/23/2019 DATE OF DISCHARGE: 03/27/2019 DISCHARGED BY: Dr. Shah REASON FOR ADMISSION: 73 years old male with past medical history of COPD, coronary artery disease, status post pacemaker, smoking history, prostate cancer, status post prostatectomy, presented for evaluation due to shortness of breath. Symptoms started while he was grocery shopping. He reported chest tightness and pressure over the sternum as well as difficulty taking a deep breath. He denied syncope. He denied radiation of pain. No nausea, vomiting or diaphoresis. Patient did not use his albuterol inhaler since symptoms onset. Patient reported compliance with his medication regimen. No fever or chills. No recent sputum production. Upon evaluation pulse oximetry on 2 L was 90%. Laboratory work-up revealed no leukocytosis, stable hemoglobin, hematocrit and platelet count. Sodium 149, BUN 23, creatinine 1.4. Glucose 110. Troponin 0.01 ; pro BNP 158 . EKG revealed sinus rhythm , no acute ischemic changes. Chest x-ray revealed no acute cardiopulmonary pathology. Patient subsequently admitted for COPD exacerbation along with acute kidney injury and dehydration. HOSPITAL COURSE: Patient admitted to telemetry floor. Patient was started the IV steroids. Supplemental oxygen provided and titrated to keep oximetry above 92%. Bronchodilator therapy via HHN provided. Patient appeared to be in a dehydration. Patient received hydration. Anti-failure and antianginal regimen titrated. Full anticoagulation continued. Pacemaker was interrogated on prior admission and showed normal functioning. Echocardiogram on prior admission revealed preserved ejection fraction of 55%. Steroids were gradually tapered. On 03/26 noted leukocytosis with WBC 18.6 , likely due to steroids . No fevers, no other evidence of infection. Solu-Medrol was discontinued and changed to oral prednisone. Patient also noted to have hyperglycemia, also likely due to steroids. Renal parameters and electrolytes were closely monitored. Prior to discharge creatinine down to 1.2. Pro BNP was trended up to 662 patient received 1 dose of Lasix. Patient clinically stabilized. Patient was able to be weaned to room air ; pulse extremity was stable on room air. Placement was arranged to prison facility for interim rehabilitation. Patient was stable for discharge. FINAL DIAGNOSES: Chronic obstructive pulmonary disease exacerbation Acute kidney injury due to dehydration -resolved Hypernatremia due to dehydration- resolved Acute on chronic diastolic congestive heart failure Ischemic cardiomyopathy Hypoxia Cardiac defibrillator Electrolyte abnormality : hypernatremia, hyperchloremia- due to dehydration Permanent pacemaker Steroid associated leukocytosis Steroid associated hyperglycemia. Moderate protein calorie malnutrition DISCHARGE MEDICATIONS: See Medication Reconciliation list. DISCHARGE INSTRUCTIONS: Patient was discharged to prison facility for interim rehabilitation. Follow-up with medical doctor at the facility. I have been assigned to dictate discharge summary for this account. I was not involved in the patient's management. Karen Lira NP Mar 29, 2019 11:48
--- NOTE | 2019-03-29 14:41 | NUR ---
*-* INSURANCE *-* ALL CLINICALS AND DISCHARGE SUMMARY HAVE BEEN FAXED TO: [facility]#[phone] EXT [phone] FAX#[phone] REVIEWS/CLINICALS
== END 2019-03-27 13:55 | DRG 190 ==
LOC: EDBEDREQ 16:50 → EMR 17:29 → 2E 17:39 → EDBEDREQTM 20:07 → EDBEDREQSVC 20:07 → EDBEDREQ 20:07 → 4E 03-25 20:27
DX: J44.1 Chronic obstructive pulmonary disease with (acute) exacerbation (principal); I50.33 Acute on chronic diastolic (congestive) heart failure; N17.9 Acute kidney failure, unspecified; E87.0 Hyperosmolality and hypernatremia; E44.0 Moderate protein-calorie malnutrition; E86.0 Dehydration; R09.02 Hypoxemia; E87.8 Other disorders of electrolyte and fluid balance, not elsewhere classified; Z95.810 Presence of automatic (implantable) cardiac defibrillator; I25.5 Ischemic cardiomyopathy; I25.10 Atherosclerotic heart disease of native coronary artery without angina pectoris; Z85.46 Personal history of malignant neoplasm of prostate; D72.829 Elevated white blood cell count, unspecified; R73.9 Hyperglycemia, unspecified; T38.0X5A Adverse effect of glucocorticoids and synthetic analogues, initial encounter; Z87.891 Personal history of nicotine dependence
CPT/HCPCS: 36415; 36600; 71045; 80053; 82803; 83880; 84484; 85007; 85025; 93005; 94640; 94664; 96374; 99285; J7620

== ENCOUNTER 2019-04-08 17:42 | Inpatient (IN) | payer MEDICARE, OTHER ==
[~2019-04-08] VITALS: Ht 182.9 cm
[~2019-04-08 17:42] MED LIST changes: +ATIVAN0.5 MG ORAL; +DUONEB 0.5-3(2.53 ML HHN; +PREDNISONE20 M1 PO
[2019-04-08 17:50] VITALS: BP 120/80
[2019-04-08] MEDS ORDERED: ADVAIR HFA 115-12 GM INH (18:00)
[2019-04-08] MEDS ORDERED: Solu-MEDROL 125mg Inj IVP ONE (18:00)
[2019-04-08] MEDS ORDERED: SPIRIVA18 MCG INH (18:00)
[2019-04-08] MEDS ORDERED: LIDODERM700 M1 TOPIC (18:00)
[2019-04-08] MEDS ORDERED: SYNTHROID150 MCG ORAL (18:00)
[2019-04-08] MEDS ORDERED: ZITHROMAX250 MG ORAL (18:00)
--- NOTE | 2019-04-08 18:02 | Emergency Room Report ---
History of Present Illness General Chief Complaint: Dyspnea/Respdistress Source: Patient Present Illness HPI Disclaimer: Please note that this report is being documented using DRAGON technology. This can lead to erroneous entry secondary to incorrect interpretation by the dictating instrument. HPI: This 73-year-old male with a history of COPD presenting for evaluation of shortness of breath. Patient states he was discharged from [facility] approximately 1 hour ago after a COPD exacerbation. He presents with his hospital bags. States shortness of breath worsening over the past 2 days despite being an inpatient at [facility]. Reports wheezing once getting out of the parking lot and called EMS to take him to our facility. He has medications for azithromycin and steroids which she has not yet taken since he was only discharged 1 hour ago. He was in our facility with similar presentation in 2 weeks ago. PMH: COPD, CAD, prostate cancer PSH: Pacemaker Allergies: None reported Social Hx: Quit smoking 1 year ago Allergies: Coded Allergies: No Known Allergies (Unverified , 10/24/16) Nursing Documentation-PMH Hx Cardiac Problems: Yes - CHF, PROSTATE CA Hx Hypertension: No Hx Pacemaker: Yes - LEFT UPPER CHEST Hx Asthma: No Hx COPD: Yes Hx Diabetes: No Hx Cancer: Yes Hx Gastrointestinal Problems: No Hx Dialysis: No Hx Neurological Problems: No Hx Cerebrovascular Accident: No Hx Seizures: No Review of Systems All Other Systems: negative except mentioned in HPI Physical Exam Vital Signs Date Time Temp Pulse Resp B/P (MAP) Pulse Ox O2 Delivery O2 Flow Rate FiO2 04/08/19 17:46 72 22 120/80 (93) 85 Room Air General: Awake and alert, no acute distress HEENT: NC/AT. EOMI. Cardiovascular: RRR. S1 and S2 normal. No murmur appreciated Resp: Tachypnea. Clear lung sounds bilaterally. No crackles, no wheezing. No cough. Abdomen: Abdomen is soft, nondistended. Nontender : Arrives with [place] skin: Intact. No abrasions, laceration or rash over the exposed skin MSK: Normal tone and bulk. Moving all extremities. No obvious deformity. Neuro: Awake and alert. Mentating appropriately. Procedures Critical Care Time Critical Care Time Total critical care time: Approximately 31 minutes Due to a high probability of clinically significant, life threatening deterioration, the patient required the highest level of preparedness to intervene emergently and I personally spent this critical care time directly and personally managing the patient. This critical care time included obtaining a history, examining the patient, pulse oximetry, ordering and reviewing studies , ordering treatments, evaluating response to treatment and updating management plan as needed, frequent reassessment and discussion with other providers as well as arranging for ultimate disposition. This critical to care time was performed to assess and manage the high probability of life-threatening deterioration that could result in multiorgan failure. This critical care time is separate from the separately billable procedures and treating other patients. Medical Decision Making Diagnostic Impression: Primary Impression: COPD exacerbation Additional Impressions: Respiratory failure with hypoxia Hyperkalemia Pneumonia ER Course This 73-year-old male with history of COPD presenting for evaluation of shortness of breath. Patient arrives with a normal heart rate though tachypneic. Initial pulse ox read 85% and the patient improved after oxygen was started. Will give IV steroids again, repeat x-ray, labs start breathing treatments. Will obtain an ABG as well. Laboratory Tests Test 04/08/19 17:48 04/08/19 18:10 04/08/19 20:03 Arterial Blood pH 7.344 (7.350-7.450) 7.363 (7.350-7.450) Arterial Blood Partial Pressure CO2 57.4 mmHg (35.0-45.0) *H 51.0 mmHg (35.0-45.0) H Arterial Blood Partial Pressure O2 45.3 mmHg (75.0-100.0) 87.4 mmHg (75.0-100.0) Arterial Blood HCO3 30.6 mmol/L (22.0-26.0) H 28.4 mmol/L (22.0-26.0) H Arterial Blood Oxygen Saturation 67.8 % (95-100) *L 96.3 % (95-100) Arterial Blood Base Excess 3.4 (-2-2) H 2.1 (-2-2) H Dewayne Test Positive Positive White Blood Count 16.9 K/UL (4.8-10.8) H Red Blood Count 4.77 M/UL (4.70-6.10) Hemoglobin 13.6 G/DL (14.2-18.0) L Hematocrit 44.9 % (42.0-52.0) Mean Corpuscular Volume 94 FL (80-99) Mean Corpuscular Hemoglobin 28.5 PG (27.0-31.0) Mean Corpuscular Hemoglobin Concent 30.3 G/DL (32.0-36.0) L Red Cell Distribution Width 14.1 % (11.6-14.8) Platelet Count 297 K/UL (150-450) Mean Platelet Volume 7.9 FL (6.5-10.1) Neutrophils (%) (Auto) % (45.0-75.0) Lymphocytes (%) (Auto) % (20.0-45.0) Monocytes (%) (Auto) % (1.0-10.0) Eosinophils (%) (Auto) % (0.0-3.0) Basophils (%) (Auto) % (0.0-2.0) Differential Total Cells Counted 100 Neutrophils % (Manual) 80 % (45-75) H Lymphocytes % (Manual) 11 % (20-45) L Monocytes % (Manual) 7 % (1-10) Eosinophils % (Manual) 1 % (0-3) Basophils % (Manual) 0 % (0-2) Band Neutrophils 1 % (0-8) Platelet Estimate Adequate Platelet Morphology Normal Red Blood Cell Morphology Normal Sodium Level 136 MMOL/L (136-145) Potassium Level 5.8 MMOL/L (3.5-5.1) H Chloride Level 98 MMOL/L (98-107) Carbon Dioxide Level 30 MMOL/L (21-32) Anion Gap 8 mmol/L (5-15) Blood Urea Nitrogen 33 mg/dL (7-18) H Creatinine 1.3 MG/DL (0.55-1.30) Estimate Glomerular Filtration Rate mL/min (>60) Glucose Level 476 MG/DL (74-106) H Calcium Level 9.3 MG/DL (8.5-10.1) Total Bilirubin 0.2 MG/DL (0.2-1.0) Aspartate Amino Transferase (AST) 23 U/L (15-37) Alanine Aminotransferase (ALT) 58 U/L (12-78) Alkaline Phosphatase 102 U/L (46-116) Troponin I 0.009 ng/mL (0.000-0.056) Pro-B-Type Natriuretic Peptide 181 pg/mL (0-125) H Total Protein 6.9 G/DL (6.4-8.2) Albumin 3.2 G/DL (3.4-5.0) L Globulin 3.7 g/dL Albumin/Globulin Ratio 0.9 (1.0-2.7) L EKG Diagnostic Results EKG Time: 17:46 Rate: normal Rhythm: NSR ST Segments: no acute changes Other Impression Sinus rhythm, extreme right axis deviation, interventricular conduction delay Rhythm Strip Diag. Results Rhythm Strip Time: 17:46 EP Interpretation: yes Rate: 70s Rhythm: NSR Chest X-Ray Diagnostic Results Chest X-Ray Diagnostic Results : Chest X-Ray Ordered: Yes # of Views/Limited/Complete: 1 View Indication: Shortness of Breath Interpretation: other Impression: Other Reevaluation Time: 20:59 Last Vital Signs Date Time Temp Pulse Resp B/P (MAP) Pulse Ox O2 Delivery O2 Flow Rate FiO2 04/08/19 17:46 72 22 120/80 (93) 85 Room Air Reevaluation Impression ABG performed on arrival shows CO2 retention with a PCO2 of 57 and hypoxia with a PO2 of 45. Patient was started on BiPAP. End-tidal CO2 monitor. Repeat blood gas improving. No acidosis. CO2 clearing and oxygenation improved. Chest x-ray concerning for possible right lower lobe infiltrate. Antibiotics ordered. Elevated white count at 16.9 with neutrophil predominance. Chemistry shows an elevated potassium of 5.8. He was given insulin with glucose as well as calcium. Glucose elevated at 476. No anion gap. Troponin negative. Patient will continue on BiPAP and admitted to the SDU for COPD exacerbation and pneumonia. Disposition: ADMITTED INPATIENT Condition: Serious David Canales MD Apr 08, 2019 18:02
[2019-04-08] MEDS: Ipratropium 0.02% Inh Soln 2.5ml UD HHN SCH ×2 (18:05→18:06)
[2019-04-08] MEDS: Albuterol ud Inhalation HHN SCH ×2 (18:05→18:06)
[2019-04-08 18:43] LABS: HEMATOCRIT 44.9 % (42.0-52.0); HEMOGLOBIN 13.6 G/DL (14.2-18.0); MEAN CORPUSCULAR VOLUME 94 FL (80-99); PLATELET COUNT 297 K/UL (150-450); RED BLOOD COUNT 4.77 M/UL (4.70-6.10); RED CELL DISTRIBUTION WIDTH 14.1 % (11.6-14.8); WHITE BLOOD COUNT 16.9 K/UL (4.8-10.8)
[2019-04-08 18:57] LABS: ANION GAP 8 mmol/L (5-15); BLOOD UREA NITROGEN 33 mg/dL (7-18); CALCIUM 9.3 MG/DL (8.5-10.1); CARBON DIOXIDE 30 MMOL/L (21-32); CHLORIDE 98 MMOL/L (98-107); CREATININE 1.3 MG/DL (0.55-1.30); POTASSIUM 5.8 MMOL/L (3.5-5.1); SODIUM 136 MMOL/L (136-145)
[2019-04-08 19:08] LABS: ALANINE AMINOTRANSFERASE 58 U/L (12-78); ALBUMIN 3.2 G/DL (3.4-5.0); ALBUMIN/GLOBULIN RATIO 0.9 (1.0-2.7); ALKALINE PHOSPHATASE 102 U/L (46-116); ASPARTATE AMINO TRANSFERASE 23 U/L (15-37); BILIRUBIN,TOTAL 0.2 MG/DL (0.2-1.0)
[2019-04-08] MEDS ORDERED: Insulin Human Regular 100units/ml 3ml IV ONE (19:15)
[2019-04-08] MEDS ORDERED: Calcium Gluconate 1gm/10ml vial IVP ONE (19:15)
[2019-04-08] MEDS ORDERED: Azithromycin 500 MG in NS 275 ML IV ONE (20:15)
[2019-04-08] MEDS ORDERED: cefTRIAXone 1 GM in NS 55 ML IVPB ONE (20:15)
[2019-04-08 21:10] VITALS: BP 115/75
[2019-04-08] MEDS ORDERED: Promethazine/Codeine 5ml UD ORAL PRN (21:30)
[2019-04-08] MEDS ORDERED: Nitroglycerin Subl 0.4mg tab SL PRN (21:30)
[2019-04-08] MEDS: Solu-MEDROL 125mg Inj IV SCH (23:15)
[2019-04-09] VITALS: BP 123/75
[2019-04-09 04:00] VITALS: BP 130/72
[2019-04-09 04:47] LABS: HEMATOCRIT 39.5 % (42.0-52.0); HEMOGLOBIN 12.6 G/DL (14.2-18.0); MEAN CORPUSCULAR VOLUME 92 FL (80-99); PLATELET COUNT 290 K/UL (150-450); RED BLOOD COUNT 4.28 M/UL (4.70-6.10); RED CELL DISTRIBUTION WIDTH 13.8 % (11.6-14.8); WHITE BLOOD COUNT 19.4 K/UL (4.8-10.8)
[2019-04-09 05:10] LABS: ALANINE AMINOTRANSFERASE 57 U/L (12-78); ALBUMIN 2.9 G/DL (3.4-5.0); ALBUMIN/GLOBULIN RATIO 0.8 (1.0-2.7); ALKALINE PHOSPHATASE 93 U/L (46-116); ANION GAP 11 mmol/L (5-15); ASPARTATE AMINO TRANSFERASE 20 U/L (15-37); BILIRUBIN,TOTAL 0.2 MG/DL (0.2-1.0); BLOOD UREA NITROGEN 34 mg/dL (7-18); CALCIUM 9.1 MG/DL (8.5-10.1); CARBON DIOXIDE 28 MMOL/L (21-32); CHLORIDE 94 MMOL/L (98-107); CREATININE 1.6 MG/DL (0.55-1.30); POTASSIUM 5.2 MMOL/L (3.5-5.1); SODIUM 132 MMOL/L (136-145)
[2019-04-09] MEDS: Solu-MEDROL 125mg Inj IV SCH (06:00)
[2019-04-09 08:00] VITALS: BP 137/79
[2019-04-09] MEDS ORDERED: NovoLOG Insulin Flexpen SUBQ SCH (08:00)
[2019-04-09] MEDS: Albuterol/Ipratropium 3ml neb HHN PRN ×2 (08:46→22:26)
[2019-04-09] MEDS: Carvedilol 6.25mg Tab ORAL SCH ×2 (09:31→21:00)
[2019-04-09] MEDS: Eliquis 5mg tablet ORAL SCH ×2 (09:32→18:18)
--- NOTE | 2019-04-09 10:57 | Consultation ---
History of Present Illness General Date patient seen: Apr 09, 2019 Chief Complaint: Dyspnea/Respdistress Present Illness HPI 73-year-old male with history of COPD, CAD, prostate canceer presented to ER with CC of increasing shortness of breath. He was put on bIPAP in ER and admitted to [facility] Allergies: Coded Allergies: No Known Allergies (Unverified , 10/24/16) Medication History Scheduled Apixaban (Eliquis), 5 MG PO BID, (Reported) Atorvastatin Calcium* (Atorvastatin Calcium*), 20 MG ORAL BEDTIME, (Reported) Azithromycin* (Zithromax*), 500 MG ORAL DAILY, (Reported) Carvedilol* (Carvedilol*), 6.25 MG ORAL EVERY 12 HOURS, (Reported) Fluticasone/Salmeterol (Advair Hfa 115-21 Mcg Inhaler), 2 PUFFS INH EVERY 12 HOURS, (Reported) Levothyroxine Sodium* (Synthroid*), 150 MCG ORAL DAILY, (Reported) Lidocaine Patch* (Lidoderm Patch*), Unknown Dose TOPIC DAILY, (Reported) Mometasone Furoate (Nasonex), 220 MCG INH HS, (Reported) Prednisone (Prednisone), 20 MG PO DAILY, (Reported) Tamsulosin HCl (Flomax), 0.4 MG ORAL BEDTIME, (Reported) Tiotropium [place]* (Spiriva*), 1 PUFF INH DAILY, (Reported) Scheduled PRN Ipratropium/Albuterol Sulfate (DuoNeb 0.5-3(2.5)mg/3ml), 3 ML HHN Q4HR PRN for Shortness of Breath, (Reported) Lorazepam* (Ativan*), 0.5 MG ORAL BEDTIME PRN for Insomnia, (Reported) Patient History Healthcare decision maker N Resuscitation status Full Code Advanced Directive on File Past Medical/Surgical History Past Medical/Surgical History: (1) Pacemaker (2) Prostate cancer (3) COPD (chronic obstructive pulmonary disease) Review of Systems All Other Systems: negative except mentioned in HPI Physical Exam General Appearance: WD/WN Lines, tubes and drains: peripheral HEENT: normocephalic, atraumatic Neck: non-tender, normal alignment Respiratory/Chest: chest wall non-tender, rhonchi - left, rhonchi - right Breasts: no masses Cardiovascular/Chest: normal peripheral pulses Genitourinary/Rectal: normal genital exam, normal rectal exam Extremities: normal range of motion Last 24 Hour Vital Signs Date Time Temp Pulse Resp B/P (MAP) Pulse Ox O2 Delivery O2 Flow Rate FiO2 04/09/19 09:31 86 137/79 04/09/19 08:46 86 26 96 Nasal Cannula 2.0 28 81 26 94 04/09/19 08:00 Nasal Cannula 2.0 04/09/19 08:00 97.4 80 20 137/79 (98) 96 04/09/19 07:59 77 04/09/19 07:17 92 Nasal Cannula 2.0 28 04/09/19 04:00 97.6 72 24 130/72 (91) 88 04/09/19 04:00 2.0 04/09/19 04:00 Nasal Cannula 2.0 04/09/19 03:37 74 04/09/19 00:00 98.0 76 24 123/75 (91) 93 04/09/19 00:00 Nasal Cannula 2.0 04/08/19 23:54 71 04/08/19 22:32 Nasal Cannula 2.0 04/08/19 22:32 2.0 04/08/19 21:28 86 21 95 Facial 40 04/08/19 21:10 98.4 76 24 115/75 (88) 92 04/08/19 21:00 98.6 85 20 125/79 98 Bi-pap 4.0 40 04/08/19 18:55 73 34 95 Facial 40 04/08/19 18:20 76 31 98 74 27 99 04/08/19 18:10 74 24 99 76 24 94 04/08/19 18:00 74 26 98 Simple Mask 4.0 36 74 26 94 04/08/19 17:50 98.9 72 22 120/80 94 Simple Mask 6.0 04/08/19 17:50 72 22 Room Air 04/08/19 17:46 72 22 120/80 (93) 85 Room Air Intake and Output 04/08/19 04/09/19 19:00 07:00 Intake Total 0 ml 1075 ml Output Total 300 ml 2480 ml Balance -300 ml -1405 ml Intake Oral 0 ml 920 ml IV Total 155 ml Output Urine Total 300 ml 2480 ml # Bowel Movements 1 Laboratory Tests Test 04/08/19 17:48 04/08/19 18:10 04/08/19 20:03 04/09/19 03:25 Arterial Blood pH 7.344 (7.350-7.450) 7.363 (7.350-7.450) Arterial Blood Partial Pressure CO2 57.4 mmHg (35.0-45.0) *H 51.0 mmHg (35.0-45.0) H Arterial Blood Partial Pressure O2 45.3 mmHg (75.0-100.0) 87.4 mmHg (75.0-100.0) Arterial Blood HCO3 30.6 mmol/L (22.0-26.0) H 28.4 mmol/L (22.0-26.0) H Arterial Blood Oxygen Saturation 67.8 % (95-100) *L 96.3 % (95-100) Arterial Blood Base Excess 3.4 (-2-2) H 2.1 (-2-2) H Dewayne Test Positive Positive White Blood Count 16.9 K/UL (4.8-10.8) H Red Blood Count 4.77 M/UL (4.70-6.10) Hemoglobin 13.6 G/DL (14.2-18.0) L Hematocrit 44.9 % (42.0-52.0) Mean Corpuscular Volume 94 FL (80-99) Mean Corpuscular Hemoglobin 28.5 PG (27.0-31.0) Mean Corpuscular Hemoglobin Concent 30.3 G/DL (32.0-36.0) L Red Cell Distribution Width 14.1 % (11.6-14.8) Platelet Count 297 K/UL (150-450) Mean Platelet Volume 7.9 FL (6.5-10.1) Neutrophils (%) (Auto) % (45.0-75.0) Lymphocytes (%) (Auto) % (20.0-45.0) Monocytes (%) (Auto) % (1.0-10.0) Eosinophils (%) (Auto) % (0.0-3.0) Basophils (%) (Auto) % (0.0-2.0) Differential Total Cells Counted 100 Neutrophils % (Manual) 80 % (45-75) H Lymphocytes % (Manual) 11 % (20-45) L Monocytes % (Manual) 7 % (1-10) Eosinophils % (Manual) 1 % (0-3) Basophils % (Manual) 0 % (0-2) Band Neutrophils 1 % (0-8) Platelet Estimate Adequate Platelet Morphology Normal Red Blood Cell Morphology Normal Sodium Level 136 MMOL/L (136-145) Potassium Level 5.8 MMOL/L (3.5-5.1) H Chloride Level 98 MMOL/L (98-107) Carbon Dioxide Level 30 MMOL/L (21-32) Anion Gap 8 mmol/L (5-15) Blood Urea Nitrogen 33 mg/dL (7-18) H Creatinine 1.3 MG/DL (0.55-1.30) Estimat Glomerular Filtration Rate mL/min (>60) Glucose Level 476 MG/DL (74-106) H Calcium Level 9.3 MG/DL (8.5-10.1) Total Bilirubin 0.2 MG/DL (0.2-1.0) Aspartate Amino Transf (AST/SGOT) 23 U/L (15-37) Alanine Aminotransferase (ALT/SGPT) 58 U/L (12-78) Alkaline Phosphatase 102 U/L (46-116) Troponin I 0.009 ng/mL (0.000-0.056) Pro-B-Type Natriuretic Peptide 181 pg/mL (0-125) H Total Protein 6.9 G/DL (6.4-8.2) Albumin 3.2 G/DL (3.4-5.0) L Globulin 3.7 g/dL Albumin/Globulin Ratio 0.9 (1.0-2.7) L Hemoglobin A1c 8.6 % (4.3-6.0) H Test 04/09/19 03:45 White Blood Count 19.4 K/UL (4.8-10.8) H Red Blood Count 4.28 M/UL (4.70-6.10) L Hemoglobin 12.6 G/DL (14.2-18.0) L Hematocrit 39.5 % (42.0-52.0) L Mean Corpuscular Volume 92 FL (80-99) Mean Corpuscular Hemoglobin 29.4 PG (27.0-31.0) Mean Corpuscular Hemoglobin Concent 31.8 G/DL (32.0-36.0) L Red Cell Distribution Width 13.8 % (11.6-14.8) Platelet Count 290 K/UL (150-450) Mean Platelet Volume 7.2 FL (6.5-10.1) Neutrophils (%) (Auto) % (45.0-75.0) Lymphocytes (%) (Auto) % (20.0-45.0) Monocytes (%) (Auto) % (1.0-10.0) Eosinophils (%) (Auto) % (0.0-3.0) Basophils (%) (Auto) % (0.0-2.0) Differential Total Cells Counted 100 Neutrophils % (Manual) 87 % (45-75) H Lymphocytes % (Manual) 7 % (20-45) L Monocytes % (Manual) 4 % (1-10) Eosinophils % (Manual) 0 % (0-3) Basophils % (Manual) 0 % (0-2) Band Neutrophils 2 % (0-8) Platelet Estimate Adequate Platelet Morphology Normal Red Blood Cell Morphology Normal Sodium Level 132 MMOL/L (136-145) L Potassium Level 5.2 MMOL/L (3.5-5.1) H Chloride Level 94 MMOL/L (98-107) L Carbon Dioxide Level 28 MMOL/L (21-32) Anion Gap 11 mmol/L (5-15) Blood Urea Nitrogen 34 mg/dL (7-18) H Creatinine 1.6 MG/DL (0.55-1.30) H Estimat Glomerular Filtration Rate mL/min (>60) Glucose Level 688 MG/DL (74-106) #*H Calcium Level 9.1 MG/DL (8.5-10.1) Total Bilirubin 0.2 MG/DL (0.2-1.0) Aspartate Amino Transf (AST/SGOT) 20 U/L (15-37) Alanine Aminotransferase (ALT/SGPT) 57 U/L (12-78) Alkaline Phosphatase 93 U/L (46-116) Total Protein 6.7 G/DL (6.4-8.2) Albumin 2.9 G/DL (3.4-5.0) L Globulin 3.8 g/dL Albumin/Globulin Ratio 0.8 (1.0-2.7) L Microbiology Date/Time Source Procedure Growth Status 04/08/19 19:59 Rectum Received Height (Feet): 6 Height (Inches): 0.00 Weight (Pounds): 196 Medications Current Medications Medications (Trade) Dose Ordered Sig/Dejon Route PRN Reason Start Time Stop Time Status Last Admin Dose Admin Acetaminophen (Tylenol) 650 mg Q4H PRN ORAL fever 04/08/19 21:30 05/08/19 21:29 Albuterol/ Ipratropium (Albuterol/ Ipratropium) 3 ml Q4H PRN HHN dyspnea 04/08/19 21:30 04/13/19 21:29 04/09/19 08:46 Apixaban (Eliquis) 5 mg BID ORAL 04/09/19 09:00 05/09/19 08:59 04/09/19 09:32 Carvedilol (Coreg) 6.25 mg EVERY 12 HOURS ORAL 04/09/19 09:00 05/09/19 08:59 04/09/19 09:31 Clonidine HCl (Catapres Tab) 0.1 mg Q4H PRN ORAL sbp more than 160 04/08/19 21:30 05/08/19 21:29 Dextrose (Dextrose 50%) 25 ml Q30M PRN IV Hypoglycemia 04/09/19 07:30 05/09/19 07:29 Dextrose (Dextrose 50%) 50 ml Q30M PRN IV Hypoglycemia 04/09/19 07:30 05/09/19 07:29 Insulin Aspart (NovoLOG) BEFORE MEALS AND HS SUBQ 04/09/19 08:00 05/09/19 07:59 04/09/19 08:09 Levofloxacin 100 ml @ 100 mls/hr Q24H IVPB 04/08/19 23:00 04/15/19 22:59 04/08/19 23:04 Levothyroxine Sodium (Synthroid) 150 mcg ACBREAKFAST ORAL 04/09/19 06:30 05/09/19 06:29 04/09/19 06:04 Methylprednisolone Sodium Succinate (Solu-MEDROL) 60 mg EVERY 6 HOURS IV 04/09/19 00:00 05/09/19 00:00 04/08/19 23:15 Nitroglycerin (Ntg) 0.4 mg Q5M X 3 DOSES PRN SL Prn Chest Pain 04/08/19 21:30 05/08/19 21:29 Ondansetron HCl (Zofran) 4 mg Q6H PRN IVP Nausea & Vomiting 04/08/19 21:30 05/08/19 21:29 Promethazine HCl/ Codeine (Phenergan with Codeine) 5 ml Q6H PRN ORAL cough 04/08/19 21:30 05/08/19 21:29 Tamsulosin HCl (Flomax) 0.4 mg BEDTIME ORAL 04/09/19 21:00 05/09/19 20:59 Temazepam (Restoril) 15 mg HSPRN PRN ORAL Insomnia 04/08/19 21:30 04/15/19 21:29 Assessment/Plan Problem List: (1) Respiratory failure with hypoxia ICD Codes: J96.91 - Respiratory failure, unspecified with hypoxia SNOMED: 20602645225107307 (2) COPD exacerbation ICD Codes: J44.1 - Chronic obstructive pulmonary disease with (acute) exacerbation SNOMED: 405101350 (3) Pneumonia ICD Codes: J18.9 - Pneumonia, unspecified organism SNOMED: 599984252 (4) Pacemaker ICD Codes: Z95.0 - Presence of cardiac pacemaker SNOMED: 919274157 (5) Diabetes mellitus ICD Codes: E11.9 - Type 2 diabetes mellitus without complications SNOMED: 28136381 (6) Prostate cancer ICD Codes: C61 - Malignant neoplasm of prostate SNOMED: 904545731 Assessment/Plan: check sputum iv abx titrate cardiac meds respiratory treatment sliding scale and diabetic diet Goldie Obrien MD Apr 09, 2019 10:57
--- NOTE | 2019-04-09 11:46 | Diagnostic Imaging Report ---
Indication: Dyspnea Comparison: 03/23/2019 A single view chest radiograph was obtained. Findings: Pulmonary vascular prominence demonstrated. Heart is enlarged. Hilar vessels are prominent centrally. Pacemaker again noted on the left. IMPRESSION: Mild pulmonary vascular congestion suspected
[2019-04-09 12:00] VITALS: BP 111/50
[2019-04-09] MEDS: NovoLOG Insulin Flexpen SUBQ SCH ×3 (13:51→21:10)
--- NOTE | 2019-04-09 14:49 | History & Physical ---
History and Physical History & Physicial Jewel Giraldo MD Apr 09, 2019 14:49
[2019-04-09 16:00] VITALS: BP 123/77
--- NOTE | 2019-04-09 16:35 | Consultation ---
History of Present Illness General Date patient seen: Apr 09, 2019 Chief Complaint: Dyspnea/Respdistress Present Illness HPI 73 y/o M with hx of COPD, CAD, CHF, prostate cancer, s/p PPM, former smoker presented to ED on 04/08 with increasing SOB requiring bipap. Patient says he was discharged ~1hr priro to admission from [facility] from COPD exacerbation. He reports that has been having worsenign SOB over the past 2 days prior to admission despite being inpatient at [facility]. +wheezing. He was discharged on Azithromycin and steroids. Allergies: Coded Allergies: No Known Allergies (Unverified , 10/24/16) Medication History Scheduled Apixaban (Eliquis), 5 MG PO BID, (Reported) Atorvastatin Calcium* (Atorvastatin Calcium*), 20 MG ORAL BEDTIME, (Reported) Azithromycin* (Zithromax*), 500 MG ORAL DAILY, (Reported) Carvedilol* (Carvedilol*), 6.25 MG ORAL EVERY 12 HOURS, (Reported) Fluticasone/Salmeterol (Advair Hfa 115-21 Mcg Inhaler), 2 PUFFS INH EVERY 12 HOURS, (Reported) Levothyroxine Sodium* (Synthroid*), 150 MCG ORAL DAILY, (Reported) Lidocaine Patch* (Lidoderm Patch*), Unknown Dose TOPIC DAILY, (Reported) Mometasone Furoate (Nasonex), 220 MCG INH HS, (Reported) Prednisone (Prednisone), 20 MG PO DAILY, (Reported) Tamsulosin HCl (Flomax), 0.4 MG ORAL BEDTIME, (Reported) Tiotropium Dalton* (Spiriva*), 1 PUFF INH DAILY, (Reported) Scheduled PRN Ipratropium/Albuterol Sulfate (DuoNeb 0.5-3(2.5)mg/3ml), 3 ML HHN Q4HR PRN for Shortness of Breath, (Reported) Lorazepam* (Ativan*), 0.5 MG ORAL BEDTIME PRN for Insomnia, (Reported) Patient History Healthcare decision maker N Resuscitation status Full Code Advanced Directive on File Patient History Narrative Pmhx: as above Shx: Quit smoking 1 year ago Fhx: non contributory Review of Systems All Other Systems: negative except mentioned in HPI Physical Exam Physical Exam Narrative General Appearance: WD/WN Lines, tubes and drains: peripheral HEENT: normocephalic, atraumatic Neck: non-tender, normal alignment Respiratory/Chest: chest wall non-tender, rhonchi - left, rhonchi - right Cardiovascular/Chest: normal peripheral pulses Extremities: normal range of motion Last 24 Hour Vital Signs Date Time Temp Pulse Resp B/P (MAP) Pulse Ox O2 Delivery O2 Flow Rate FiO2 04/09/19 12:00 97.2 68 18 111/50 (70) 96 04/09/19 12:00 Nasal Cannula 2.0 04/09/19 11:32 69 04/09/19 09:31 86 137/79 04/09/19 08:46 86 26 96 Nasal Cannula 2.0 28 81 26 94 04/09/19 08:00 Nasal Cannula 2.0 04/09/19 08:00 97.4 80 20 137/79 (98) 96 04/09/19 07:59 77 04/09/19 07:17 92 Nasal Cannula 2.0 28 04/09/19 04:00 97.6 72 24 130/72 (91) 88 04/09/19 04:00 2.0 04/09/19 04:00 Nasal Cannula 2.0 04/09/19 03:37 74 04/09/19 00:00 98.0 76 24 123/75 (91) 93 04/09/19 00:00 Nasal Cannula 2.0 04/08/19 23:54 71 04/08/19 22:32 Nasal Cannula 2.0 04/08/19 22:32 2.0 04/08/19 21:28 86 21 95 Facial 40 04/08/19 21:10 98.4 76 24 115/75 (88) 92 04/08/19 21:00 98.6 85 20 125/79 98 Bi-pap 4.0 40 04/08/19 18:55 73 34 95 Facial 40 04/08/19 18:20 76 31 98 74 27 99 04/08/19 18:10 74 24 99 76 24 94 04/08/19 18:00 74 26 98 Simple Mask 4.0 36 74 26 94 04/08/19 17:50 98.9 72 22 120/80 94 Simple Mask 6.0 04/08/19 17:50 72 22 Room Air 04/08/19 17:46 72 22 120/80 (93) 85 Room Air Intake and Output 04/08/19 04/09/19 19:00 07:00 Intake Total 0 ml 1075 ml Output Total 300 ml 2480 ml Balance -300 ml -1405 ml Intake Oral 0 ml 920 ml IV Total 155 ml Output Urine Total 300 ml 2480 ml # Bowel Movements 1 Laboratory Tests Test 04/08/19 17:48 04/08/19 18:10 04/08/19 20:03 04/09/19 03:25 Arterial Blood pH 7.344 (7.350-7.450) 7.363 (7.350-7.450) Arterial Blood Partial Pressure CO2 57.4 mmHg (35.0-45.0) *H 51.0 mmHg (35.0-45.0) H Arterial Blood Partial Pressure O2 45.3 mmHg (75.0-100.0) 87.4 mmHg (75.0-100.0) Arterial Blood HCO3 30.6 mmol/L (22.0-26.0) H 28.4 mmol/L (22.0-26.0) H Arterial Blood Oxygen Saturation 67.8 % (95-100) *L 96.3 % (95-100) Arterial Blood Base Excess 3.4 (-2-2) H 2.1 (-2-2) H Dewayne Test Positive Positive White Blood Count 16.9 K/UL (4.8-10.8) H Red Blood Count 4.77 M/UL (4.70-6.10) Hemoglobin 13.6 G/DL (14.2-18.0) L Hematocrit 44.9 % (42.0-52.0) Mean Corpuscular Volume 94 FL (80-99) Mean Corpuscular Hemoglobin 28.5 PG (27.0-31.0) Mean Corpuscular Hemoglobin Concent 30.3 G/DL (32.0-36.0) L Red Cell Distribution Width 14.1 % (11.6-14.8) Platelet Count 297 K/UL (150-450) Mean Platelet Volume 7.9 FL (6.5-10.1) Neutrophils (%) (Auto) % (45.0-75.0) Lymphocytes (%) (Auto) % (20.0-45.0) Monocytes (%) (Auto) % (1.0-10.0) Eosinophils (%) (Auto) % (0.0-3.0) Basophils (%) (Auto) % (0.0-2.0) Differential Total Cells Counted 100 Neutrophils % (Manual) 80 % (45-75) H Lymphocytes % (Manual) 11 % (20-45) L Monocytes % (Manual) 7 % (1-10) Eosinophils % (Manual) 1 % (0-3) Basophils % (Manual) 0 % (0-2) Band Neutrophils 1 % (0-8) Platelet Estimate Adequate Platelet Morphology Normal Red Blood Cell Morphology Normal Sodium Level 136 MMOL/L (136-145) Potassium Level 5.8 MMOL/L (3.5-5.1) H Chloride Level 98 MMOL/L (98-107) Carbon Dioxide Level 30 MMOL/L (21-32) Anion Gap 8 mmol/L (5-15) Blood Urea Nitrogen 33 mg/dL (7-18) H Creatinine 1.3 MG/DL (0.55-1.30) Estimat Glomerular Filtration Rate mL/min (>60) Glucose Level 476 MG/DL (74-106) H Calcium Level 9.3 MG/DL (8.5-10.1) Total Bilirubin 0.2 MG/DL (0.2-1.0) Aspartate Amino Transf (AST/SGOT) 23 U/L (15-37) Alanine Aminotransferase (ALT/SGPT) 58 U/L (12-78) Alkaline Phosphatase 102 U/L (46-116) Troponin I 0.009 ng/mL (0.000-0.056) Pro-B-Type Natriuretic Peptide 181 pg/mL (0-125) H Total Protein 6.9 G/DL (6.4-8.2) Albumin 3.2 G/DL (3.4-5.0) L Globulin 3.7 g/dL Albumin/Globulin Ratio 0.9 (1.0-2.7) L Hemoglobin A1c 8.6 % (4.3-6.0) H Test 04/09/19 03:45 White Blood Count 19.4 K/UL (4.8-10.8) H Red Blood Count 4.28 M/UL (4.70-6.10) L Hemoglobin 12.6 G/DL (14.2-18.0) L Hematocrit 39.5 % (42.0-52.0) L Mean Corpuscular Volume 92 FL (80-99) Mean Corpuscular Hemoglobin 29.4 PG (27.0-31.0) Mean Corpuscular Hemoglobin Concent 31.8 G/DL (32.0-36.0) L Red Cell Distribution Width 13.8 % (11.6-14.8) Platelet Count 290 K/UL (150-450) Mean Platelet Volume 7.2 FL (6.5-10.1) Neutrophils (%) (Auto) % (45.0-75.0) Lymphocytes (%) (Auto) % (20.0-45.0) Monocytes (%) (Auto) % (1.0-10.0) Eosinophils (%) (Auto) % (0.0-3.0) Basophils (%) (Auto) % (0.0-2.0) Differential Total Cells Counted 100 Neutrophils % (Manual) 87 % (45-75) H Lymphocytes % (Manual) 7 % (20-45) L Monocytes % (Manual) 4 % (1-10) Eosinophils % (Manual) 0 % (0-3) Basophils % (Manual) 0 % (0-2) Band Neutrophils 2 % (0-8) Platelet Estimate Adequate Platelet Morphology Normal Red Blood Cell Morphology Normal Sodium Level 132 MMOL/L (136-145) L Potassium Level 5.2 MMOL/L (3.5-5.1) H Chloride Level 94 MMOL/L (98-107) L Carbon Dioxide Level 28 MMOL/L (21-32) Anion Gap 11 mmol/L (5-15) Blood Urea Nitrogen 34 mg/dL (7-18) H Creatinine 1.6 MG/DL (0.55-1.30) H Estimat Glomerular Filtration Rate mL/min (>60) Glucose Level 688 MG/DL (74-106) #*H Calcium Level 9.1 MG/DL (8.5-10.1) Total Bilirubin 0.2 MG/DL (0.2-1.0) Aspartate Amino Transf (AST/SGOT) 20 U/L (15-37) Alanine Aminotransferase (ALT/SGPT) 57 U/L (12-78) Alkaline Phosphatase 93 U/L (46-116) Total Protein 6.7 G/DL (6.4-8.2) Albumin 2.9 G/DL (3.4-5.0) L Globulin 3.8 g/dL Albumin/Globulin Ratio 0.8 (1.0-2.7) L Microbiology Date/Time Source Procedure Growth Status 04/08/19 19:59 Rectum Received Height (Feet): 6 Height (Inches): 0.00 Weight (Pounds): 196 Medications Current Medications Medications (Trade) Dose Ordered Sig/Dejon Route PRN Reason Start Time Stop Time Status Last Admin Dose Admin Acetaminophen (Tylenol) 650 mg Q4H PRN ORAL fever 04/08/19 21:30 05/08/19 21:29 Albuterol/ Ipratropium (Albuterol/ Ipratropium) 3 ml Q4H PRN HHN dyspnea 04/08/19 21:30 04/13/19 21:29 04/09/19 08:46 Apixaban (Eliquis) 5 mg BID ORAL 04/09/19 09:00 05/09/19 08:59 04/09/19 09:32 Carvedilol (Coreg) 6.25 mg EVERY 12 HOURS ORAL 04/09/19 09:00 05/09/19 08:59 04/09/19 09:31 Clonidine HCl (Catapres Tab) 0.1 mg Q4H PRN ORAL sbp more than 160 04/08/19 21:30 05/08/19 21:29 Dextrose (Dextrose 50%) 25 ml Q30M PRN IV Hypoglycemia 04/09/19 07:30 05/09/19 07:29 Dextrose (Dextrose 50%) 50 ml Q30M PRN IV Hypoglycemia 04/09/19 07:30 05/09/19 07:29 Insulin Aspart (NovoLOG) BEFORE MEALS AND HS SUBQ 04/09/19 13:30 05/09/19 13:29 04/09/19 13:51 Levofloxacin 100 ml @ 100 mls/hr Q24H IVPB 04/08/19 23:00 04/15/19 22:59 04/08/19 23:04 Levothyroxine Sodium (Synthroid) 150 mcg ACBREAKFAST ORAL 04/09/19 06:30 05/09/19 06:29 04/09/19 06:04 Methylprednisolone Sodium Succinate (Solu-MEDROL) 60 mg DAILY IV 04/10/19 09:00 05/09/19 00:00 Nitroglycerin (Ntg) 0.4 mg Q5M X 3 DOSES PRN SL Prn Chest Pain 04/08/19 21:30 05/08/19 21:29 Ondansetron HCl (Zofran) 4 mg Q6H PRN IVP Nausea & Vomiting 04/08/19 21:30 05/08/19 21:29 Promethazine HCl/ Codeine (Phenergan with Codeine) 5 ml Q6H PRN ORAL cough 04/08/19 21:30 05/08/19 21:29 Tamsulosin HCl (Flomax) 0.4 mg BEDTIME ORAL 04/09/19 21:00 05/09/19 20:59 Temazepam (Restoril) 15 mg HSPRN PRN ORAL Insomnia 04/08/19 21:30 04/15/19 21:29 Assessment/Plan Assessment/Plan: Abx: Levaquin 04/08- Ceftriaxone x1 04/08 Azithromycin x1 04/08 Assessment: Acute hypoxic respiratory failure s/p bipap, now on NC COPD exacerbation CHF exacerbation -04/08 CXR: Mild pulmonary vascular congestion suspected Afebrile Leukocytosis, increased (on high dose steroids) KAYLAN, worsening Hyperglycemia COPD CAD CHF prostate cancer s/p PPM former smoker Plan: -Continue Levaquin #2/5 for COPD exacerbation -f/u cx -Monitor CBC/CMP, temperatures -influenza sc Thank you for this consultation. Will continue to follow along with you. Discussed with An Baltazar M.D. Apr 09, 2019 16:35
--- NOTE | 2019-04-09 18:00 | History and Physical Report ---
DATE OF ADMISSION: 04/08/2019 CHIEF COMPLAINT: Shortness of breath. HISTORY OF PRESENT ILLNESS: This is a 73-year-old gentleman with past medical history significant for chronic smoker, COPD, coronary artery disease, prostate cancer, sick sinus syndrome status post pacemaker, atrial fibrillation, who was presented to the hospital after was recently discharged from [facility] about an hour ago due to the COPD exacerbation. The patient presented to the emergency department complaining about shortness of breath worsening over past 2 days. The patient been inpatient at [facility]. Reported wheezing once getting out of the parking lot, he got progressively worsening. Shortly after initial evaluation in the emergency department, the patient was admitted to the hospital with acute COPD exacerbation with acute hypoxemic respiratory failure, started on BiPAP, and admitted to step-down [facility]. PAST MEDICAL HISTORY/PAST SURGICAL HISTORY: As above history of COPD, chronic smoker, coronary artery disease, prostate cancer, sick sinus syndrome status post pacemaker, cardiac arrhythmias. MEDICATIONS AT HOME: Please refer to medication reconciliation. ALLERGIES: No known drug allergies. SOCIAL HISTORY: The patient is ex-smoker, quit about a year ago. Denies any alcohol or substance abuse. FAMILY HISTORY: Noncontributory. REVIEW OF SYSTEMS: Mostly as above. Denies any dysuria, frequency, or hematuria. Complained of shortness of breath. Complained of abdominal pain. Denies any hemoptysis or hematochezia. Denies any suicidal or homicidal ideation. Denies any bright red blood per rectum. PHYSICAL EXAMINATION: VITAL SIGNS: On admission, temperature is 97.4, pulse is 72, respirations 22, blood pressure of 120/80. GENERAL: The patient is awake, responsive, no acute distress. HEAD AND NECK: Pupils are equal and reactive to light. Extraocular muscles intact. Neck was supple. No JVD. LUNGS: Good air entry. The patient has expiratory wheezes noted. Tachypneic. No rhonchi was noted. HEART: S1, S2. Irregular. No murmur. The patient has a pacemaker in the left-sided chest wall. ABDOMEN: Soft, nondistended, nontender. Mildly obese. EXTREMITIES: No cyanosis, clubbing, edema. NEUROLOGIC: Cranial nerves II through XII grossly normal. Motor is 5/5 in all extremities. Gait is intact. GENITOURINARY: It was noted the patient has a Montgomery catheter. RECTAL: Refused and deferred. PSYCHIATRIC: Mood and affect is intact. LABORATORY DATA: On admission from the emergency department, WBC of 16.9, hemoglobin 13, hematocrit 44, platelets is 297. Sodium 136, potassium 5.8, chloride 98, bicarbonate 30, BUN 33, creatinine 1.3, glucose is 476. BNP of 181. Troponin 0.009. ABG, pH of 7.3, pCO2 of 57, pO2 of 45, saturating 67%. Chest x-ray showed mild pulmonary vascular congestion. EKG is noted to be sinus rhythm with premature atrial complex, ventricular rate of 75, right bundle-branch block, septal infarction. No ST elevation was noted. The patient had ST depression noted in leads II, III, and aVF as well as V3 and V4. ASSESSMENT: 1. Acute hypoxemic respiratory failure, most likely secondary to acute COPD exacerbation. 2. Acute COPD exacerbation. 3. Pneumonia. 4. Sick sinus syndrome status post pacemaker. 5. Diabetes type 2. 6. Prostate cancer. 7. Hyperkalemia. 8. Insulin induced hyperglycemia. 9. Prostate enlargement. PLAN: Admit the patient to step-down [facility]. We will follow up with Solu-Medrol IV 60 mg and we will continue to monitor blood glucose level closely. We will start on broad-spectrum antibiotic with Levaquin. Code status is Full Code. DVT prophylaxis, he is on Eliquis. We will continue to monitor cultures and laboratory in the morning. Follow up with Dr. Goldie Obrien, Pulmonary Critical Care consultation. Jewel Giraldo M.D. DR: JURGEN JOB#: [id number] CC:
[2019-04-09] MEDS ORDERED: METFORMIN HCL500 M1 ORAL (19:04)
[2019-04-09] MEDS ORDERED: BENZONATATE200 MG ORAL (19:04)
[2019-04-09 20:00] VITALS: BP 119/67
[2019-04-09] MEDS: Tamsulosin 0.4mg cap ORAL SCH (21:09)
[2019-04-09] MEDS: Levemir Flexpen SUBQ SCH (21:10)
[2019-04-10] VITALS: BP 120/66
[2019-04-10] MEDS: NovoLOG Insulin Flexpen SUBQ SCH ×4 (06:06→21:00)
[2019-04-10 08:00] VITALS: BP 114/78
[2019-04-10] MEDS ORDERED: Solu-MEDROL 125mg Inj IV SCH (09:00)
--- NOTE | 2019-04-10 09:38 | Pulmonology Progress Note ---
Assessment/Plan Assessment/Plan Pulmonary Prohgress Note: HPI: Patient is a 73-year-old male with a history of COPD, Diabetes Mellitis admitted with shortness of breath. Recent admission with COPD exacerbation. Admitted to [facility] 2 weeks ago. PMH: COPD, CAD, CHF, PPM, DM, Prostate cancer PSH: Pacemaker Allergies: None reported Social Hx: Quit smoking 1 year ago Allergies: No Known Allergies All Other Systems: negative except mentioned in HPI Physical Exam Vital Signs Noted General: Awake and alert, no acute distress HEENT: NC/AT. EOMI. Cardiovascular: RRR. S1 and S2 normal. No murmur appreciated Resp: Tachypnea. Clear lung sounds bilaterally. No crackles, no wheezing. No cough. Abdomen: Abdomen is soft, nondistended. Nontender : Montgomery skin: Intact. No abrasions, laceration or rash over the exposed skin MSK: Normal tone and bulk. Moving all extremities. No obvious deformity. Neuro: Awake and alert. Mentating appropriately. 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 PPX O2 PRN BiPAP PRN Monitor labs Laboratory Tests Test 04/08/19 17:48 04/08/19 18:10 04/08/19 20:03 Arterial Blood pH 7.344 (7.350-7.450) 7.363 (7.350-7.450) Arterial Blood Partial Pressure CO2 57.4 mmHg (35.0-45.0) *H 51.0 mmHg (35.0-45.0) H Arterial Blood Partial Pressure O2 45.3 mmHg (75.0-100.0) 87.4 mmHg (75.0-100.0) Arterial Blood HCO3 30.6 mmol/L (22.0-26.0) H 28.4 mmol/L (22.0-26.0) H Arterial Blood Oxygen Saturation 67.8 % (95-100) *L 96.3 % (95-100) Arterial Blood Base Excess 3.4 (-2-2) H 2.1 (-2-2) H Dewayne Test Positive Positive White Blood Count 16.9 K/UL (4.8-10.8) H Red Blood Count 4.77 M/UL (4.70-6.10) Hemoglobin 13.6 G/DL (14.2-18.0) L Hematocrit 44.9 % (42.0-52.0) Mean Corpuscular Volume 94 FL (80-99) Mean Corpuscular Hemoglobin 28.5 PG (27.0-31.0) Mean Corpuscular Hemoglobin Concent 30.3 G/DL (32.0-36.0) L Red Cell Distribution Width 14.1 % (11.6-14.8) Platelet Count 297 K/UL (150-450) Mean Platelet Volume 7.9 FL (6.5-10.1) Neutrophils (%) (Auto) % (45.0-75.0) Lymphocytes (%) (Auto) % (20.0-45.0) Monocytes (%) (Auto) % (1.0-10.0) Eosinophils (%) (Auto) % (0.0-3.0) Basophils (%) (Auto) % (0.0-2.0) Differential Total Cells Counted 100 Neutrophils % (Manual) 80 % (45-75) H Lymphocytes % (Manual) 11 % (20-45) L Monocytes % (Manual) 7 % (1-10) Eosinophils % (Manual) 1 % (0-3) Basophils % (Manual) 0 % (0-2) Band Neutrophils 1 % (0-8) Platelet Estimate Adequate Platelet Morphology Normal Red Blood Cell Morphology Normal Sodium Level 136 MMOL/L (136-145) Potassium Level 5.8 MMOL/L (3.5-5.1) H Chloride Level 98 MMOL/L (98-107) Carbon Dioxide Level 30 MMOL/L (21-32) Anion Gap 8 mmol/L (5-15) Blood Urea Nitrogen 33 mg/dL (7-18) H Creatinine 1.3 MG/DL (0.55-1.30) Estimate Glomerular Filtration Rate mL/min (>60) Glucose Level 476 MG/DL (74-106) H Calcium Level 9.3 MG/DL (8.5-10.1) Total Bilirubin 0.2 MG/DL (0.2-1.0) Aspartate Amino Transferase (AST) 23 U/L (15-37) Alanine Aminotransferase (ALT) 58 U/L (12-78) Alkaline Phosphatase 102 U/L (46-116) Troponin I 0.009 ng/mL (0.000-0.056) Pro-B-Type Natriuretic Peptide 181 pg/mL (0-125) H Total Protein 6.9 G/DL (6.4-8.2) Albumin 3.2 G/DL (3.4-5.0) L Globulin 3.7 g/dL Albumin/Globulin Ratio 0.9 (1.0-2.7) L EKG: Sinus rhythm, extreme right axis deviation, interventricular conduction delay Chest X-Ray: mild congestion Subjective ROS Limited/Unobtainable: No Allergies: Coded Allergies: No Known Allergies (Unverified , 10/24/16) Objective Last 24 Hour Vital Signs Date Time Temp Pulse Resp B/P (MAP) Pulse Ox O2 Delivery O2 Flow Rate FiO2 04/10/19 08:00 Room Air 04/10/19 08:00 96.8 65 22 114/78 (90) 97 04/10/19 07:49 68 04/10/19 04:00 Nasal Cannula 2.0 04/10/19 03:41 69 04/10/19 00:00 98.7 73 18 120/66 (84) 96 04/10/19 00:00 Nasal Cannula 2.0 04/09/19 23:35 74 04/09/19 22:27 7 24 97 Nasal Cannula 2.0 28 72 24 95 04/09/19 20:00 97.6 73 20 119/67 (84) 95 04/09/19 20:00 Nasal Cannula 2.0 04/09/19 19:38 74 04/09/19 19:18 91 Nasal Cannula 2.0 28 04/09/19 16:00 Nasal Cannula 2.0 04/09/19 16:00 97.9 80 18 123/77 (92) 94 04/09/19 15:35 73 04/09/19 12:00 97.2 68 18 111/50 (70) 96 04/09/19 12:00 Nasal Cannula 2.0 04/09/19 11:32 69 Intake and Output 04/09/19 04/10/19 19:00 07:00 Intake Total 1100 ml 820 ml Output Total 2200 ml 1000 ml Balance -1100 ml -180 ml Intake Oral 1100 ml 720 ml IV Total 100 ml Output Urine Total 2200 ml 1000 ml # Bowel Movements 1 1 Microbiology Date/Time Source Procedure Growth Status 04/08/19 19:59 Rectum Received Current Medications Medications (Trade) Dose Ordered Sig/Dejon Route PRN Reason Start Time Stop Time Status Last Admin Dose Admin Acetaminophen (Tylenol) 650 mg Q4H PRN ORAL fever 04/08/19 21:30 05/08/19 21:29 Albuterol/ Ipratropium (Albuterol/ Ipratropium) 3 ml Q4H PRN HHN dyspnea 04/08/19 21:30 04/13/19 21:29 04/09/19 22:26 Apixaban (Eliquis) 5 mg BID ORAL 04/09/19 09:00 05/09/19 08:59 04/09/19 18:18 Carvedilol (Coreg) 6.25 mg EVERY 12 HOURS ORAL 04/09/19 09:00 05/09/19 08:59 04/09/19 09:31 Clonidine HCl (Catapres Tab) 0.1 mg Q4H PRN ORAL sbp more than 160 04/08/19 21:30 05/08/19 21:29 Dextrose (Dextrose 50%) 25 ml Q30M PRN IV Hypoglycemia 04/09/19 07:30 05/09/19 07:29 Dextrose (Dextrose 50%) 50 ml Q30M PRN IV Hypoglycemia 04/09/19 07:30 05/09/19 07:29 Insulin Aspart (NovoLOG) BEFORE MEALS AND HS SUBQ 04/09/19 13:30 05/09/19 13:29 04/09/19 21:10 Insulin Detemir (Levemir) 10 units BEDTIME SUBQ 04/09/19 21:00 05/09/19 20:59 04/09/19 21:10 Levofloxacin 100 ml @ 100 mls/hr Q24H IVPB 04/08/19 23:00 04/15/19 22:59 04/09/19 22:11 Levothyroxine Sodium (Synthroid) 150 mcg ACBREAKFAST ORAL 04/09/19 06:30 05/09/19 06:29 04/10/19 05:58 Methylprednisolone Sodium Succinate (Solu-MEDROL) 60 mg DAILY IV 04/10/19 09:00 05/09/19 00:00 Nitroglycerin (Ntg) 0.4 mg Q5M X 3 DOSES PRN SL Prn Chest Pain 04/08/19 21:30 05/08/19 21:29 Ondansetron HCl (Zofran) 4 mg Q6H PRN IVP Nausea & Vomiting 04/08/19 21:30 05/08/19 21:29 Promethazine HCl/ Codeine (Phenergan with Codeine) 5 ml Q6H PRN ORAL cough 04/08/19 21:30 05/08/19 21:29 Tamsulosin HCl (Flomax) 0.4 mg BEDTIME ORAL 04/09/19 21:00 05/09/19 20:59 04/09/19 21:09 Temazepam (Restoril) 15 mg HSPRN PRN ORAL Insomnia 04/08/19 21:30 04/15/19 21:29 Michele Mcmahan MD Apr 10, 2019 09:38
[2019-04-10] MEDS: Eliquis 5mg tablet ORAL SCH ×2 (09:58→17:28)
[2019-04-10] MEDS: Carvedilol 6.25mg Tab ORAL SCH ×2 (09:58→21:27)
--- NOTE | 2019-04-10 10:30 | Infectious Diseases Prog Note ---
Assessment/Plan Assessment/Plan Assessment: Acute hypoxic respiratory failure s/p bipap, now on NC COPD exacerbation CHF exacerbation -04/08 CXR: Mild pulmonary vascular congestion suspected Afebrile Leukocytosis, increased (on high dose steroids) KAYLAN, worsening Hyperglycemia COPD CAD CHF prostate cancer s/p PPM former smoker Plan: -Continue Levaquin #3/5 for COPD exacerbation -04/08 SP Ceftriaxone x1, Azithromycin x1 -f/u cx -Monitor CBC/CMP, temperatures -f/u influenza sc -CBC, CMP am Thank you for this consultation. Will continue to follow along with you. Discussed with RN Subjective Allergies: Coded Allergies: No Known Allergies (Unverified , 10/24/16) Subjective afebrile wbc increased (on high dose steroids) Objective Vital Signs Last 24 Hour Vital Signs Date Time Temp Pulse Resp B/P (MAP) Pulse Ox O2 Delivery O2 Flow Rate FiO2 04/10/19 09:58 65 114/78 04/10/19 08:00 Room Air 04/10/19 08:00 96.8 65 22 114/78 (90) 97 04/10/19 07:49 68 04/10/19 04:00 Nasal Cannula 2.0 04/10/19 03:41 69 04/10/19 00:00 98.7 73 18 120/66 (84) 96 04/10/19 00:00 Nasal Cannula 2.0 04/09/19 23:35 74 04/09/19 22:27 7 24 97 Nasal Cannula 2.0 28 72 24 95 04/09/19 20:00 97.6 73 20 119/67 (84) 95 04/09/19 20:00 Nasal Cannula 2.0 04/09/19 19:38 74 04/09/19 19:18 91 Nasal Cannula 2.0 28 04/09/19 16:00 Nasal Cannula 2.0 04/09/19 16:00 97.9 80 18 123/77 (92) 94 04/09/19 15:35 73 04/09/19 12:00 97.2 68 18 111/50 (70) 96 04/09/19 12:00 Nasal Cannula 2.0 04/09/19 11:32 69 Height (Feet): 6 Height (Inches): 0.00 Weight (Pounds): 196 Objective General Appearance: WD/WN Lines, tubes and drains: peripheral HEENT: normocephalic, atraumatic Neck: non-tender, normal alignment Respiratory/Chest: chest wall non-tender, rhonchi - left, rhonchi - right Cardiovascular/Chest: normal peripheral pulses Extremities: normal range of motion Microbiology Date/Time Source Procedure Growth Status 04/08/19 19:59 Rectum Received Current Medications Medications (Trade) Dose Ordered Sig/Dejon Route PRN Reason Start Time Stop Time Status Last Admin Dose Admin Acetaminophen (Tylenol) 650 mg Q4H PRN ORAL fever 04/08/19 21:30 05/08/19 21:29 Albuterol/ Ipratropium (Albuterol/ Ipratropium) 3 ml Q4H PRN HHN dyspnea 04/08/19 21:30 04/13/19 21:29 04/09/19 22:26 Apixaban (Eliquis) 5 mg BID ORAL 04/09/19 09:00 05/09/19 08:59 04/10/19 09:58 Carvedilol (Coreg) 6.25 mg EVERY 12 HOURS ORAL 04/09/19 09:00 05/09/19 08:59 04/10/19 09:58 Clonidine HCl (Catapres Tab) 0.1 mg Q4H PRN ORAL sbp more than 160 04/08/19 21:30 05/08/19 21:29 Dextrose (Dextrose 50%) 25 ml Q30M PRN IV Hypoglycemia 04/09/19 07:30 05/09/19 07:29 Dextrose (Dextrose 50%) 50 ml Q30M PRN IV Hypoglycemia 04/09/19 07:30 05/09/19 07:29 Insulin Aspart (NovoLOG) BEFORE MEALS AND HS SUBQ 04/09/19 13:30 05/09/19 13:29 04/09/19 21:10 Insulin Detemir (Levemir) 10 units BEDTIME SUBQ 04/09/19 21:00 05/09/19 20:59 04/09/19 21:10 Levofloxacin 100 ml @ 100 mls/hr Q24H IVPB 04/08/19 23:00 04/15/19 22:59 04/09/19 22:11 Levothyroxine Sodium (Synthroid) 150 mcg ACBREAKFAST ORAL 04/09/19 06:30 05/09/19 06:29 04/10/19 05:58 Methylprednisolone Sodium Succinate (Solu-MEDROL) 60 mg DAILY IV 04/10/19 09:00 05/09/19 00:00 04/10/19 09:58 Nitroglycerin (Ntg) 0.4 mg Q5M X 3 DOSES PRN SL Prn Chest Pain 04/08/19 21:30 05/08/19 21:29 Ondansetron HCl (Zofran) 4 mg Q6H PRN IVP Nausea & Vomiting 04/08/19 21:30 05/08/19 21:29 Promethazine HCl/ Codeine (Phenergan with Codeine) 5 ml Q6H PRN ORAL cough 04/08/19 21:30 05/08/19 21:29 Tamsulosin HCl (Flomax) 0.4 mg BEDTIME ORAL 04/09/19 21:00 05/09/19 20:59 04/09/19 21:09 Temazepam (Restoril) 15 mg HSPRN PRN ORAL Insomnia 04/08/19 21:30 04/15/19 21:29 An Villa M.D. Apr 10, 2019 10:30
[2019-04-10 12:00] VITALS: BP 138/69
--- NOTE | 2019-04-10 15:07 | Internal Med Progress Note ---
Subjective Date of Service: Apr 10, 2019 Physician Name Idris Lugo Attending Physician Jewel Giraldo MD Current Medications Medications (Trade) Dose Ordered Sig/Dejon Route PRN Reason Start Time Stop Time Status Last Admin Dose Admin Acetaminophen (Tylenol) 650 mg Q4H PRN ORAL fever 04/08/19 21:30 05/08/19 21:29 Albuterol/ Ipratropium (Albuterol/ Ipratropium) 3 ml Q4H PRN HHN dyspnea 04/08/19 21:30 04/13/19 21:29 04/09/19 22:26 Apixaban (Eliquis) 5 mg BID ORAL 04/09/19 09:00 05/09/19 08:59 04/10/19 09:58 Carvedilol (Coreg) 6.25 mg EVERY 12 HOURS ORAL 04/09/19 09:00 05/09/19 08:59 04/10/19 09:58 Clonidine HCl (Catapres Tab) 0.1 mg Q4H PRN ORAL sbp more than 160 04/08/19 21:30 05/08/19 21:29 Dextrose (Dextrose 50%) 25 ml Q30M PRN IV Hypoglycemia 04/09/19 07:30 05/09/19 07:29 Dextrose (Dextrose 50%) 50 ml Q30M PRN IV Hypoglycemia 04/09/19 07:30 05/09/19 07:29 Insulin Aspart (NovoLOG) BEFORE MEALS AND HS SUBQ 04/09/19 13:30 05/09/19 13:29 04/10/19 13:32 Insulin Aspart (NovoLOG) 6 units NOVOTIAC SUBQ 04/10/19 16:50 05/10/19 16:49 Insulin Detemir (Levemir) 10 units BEDTIME SUBQ 04/09/19 21:00 05/09/19 20:59 04/09/19 21:10 Levofloxacin 50 ml @ 50 mls/hr Q24H IVPB 04/10/19 23:00 04/17/19 22:59 Levothyroxine Sodium (Synthroid) 150 mcg ACBREAKFAST ORAL 04/09/19 06:30 05/09/19 06:29 04/10/19 05:58 Methylprednisolone Sodium Succinate (Solu-MEDROL) 60 mg DAILY IV 04/10/19 09:00 05/09/19 00:00 04/10/19 09:58 Nitroglycerin (Ntg) 0.4 mg Q5M X 3 DOSES PRN SL Prn Chest Pain 04/08/19 21:30 05/08/19 21:29 Ondansetron HCl (Zofran) 4 mg Q6H PRN IVP Nausea & Vomiting 04/08/19 21:30 05/08/19 21:29 Promethazine HCl/ Codeine (Phenergan with Codeine) 5 ml Q6H PRN ORAL cough 04/08/19 21:30 05/08/19 21:29 Tamsulosin HCl (Flomax) 0.4 mg BEDTIME ORAL 04/09/19 21:00 05/09/19 20:59 04/09/19 21:09 Temazepam (Restoril) 15 mg HSPRN PRN ORAL Insomnia 04/08/19 21:30 04/15/19 21:29 Allergies: Coded Allergies: No Known Allergies (Unverified , 10/24/16) ROS Limited/Unobtainable: Yes Subjective 73 YO M admitted with COPD exacerbation. Now respiratory failure. Cover for Int Med-DR Giraldo Objective Last Vital Signs Date Time Temp Pulse Resp B/P (MAP) Pulse Ox O2 Delivery O2 Flow Rate FiO2 04/10/19 12:00 Room Air 04/10/19 12:00 97.5 76 23 138/69 (92) 97 04/10/19 04:00 2.0 04/09/19 22:27 28 Microbiology Date/Time Source Procedure Growth Status 04/08/19 19:59 Rectum Received Intake and Output 04/09/19 04/10/19 19:00 07:00 Intake Total 1100 ml 820 ml Output Total 2200 ml 1000 ml Balance -1100 ml -180 ml Intake Oral 1100 ml 720 ml IV Total 100 ml Output Urine Total 2200 ml 1000 ml # Bowel Movements 1 1 Objective PHYSICAL EXAMINATION: VITAL SIGNS: On admission, temperature is 97.4, pulse is 72, respirations 22, blood pressure of 120/80. GENERAL: The patient is awake, responsive, no acute distress. HEAD AND NECK: Pupils are equal and reactive to light. Extraocular muscles intact. Neck was supple. No JVD. LUNGS: Good air entry. The patient has expiratory wheezes noted. Tachypneic. No rhonchi was noted. HEART: S1, S2. Irregular. No murmur. The patient has a pacemaker in the left-sided chest wall. ABDOMEN: Soft, nondistended, nontender. Mildly obese. EXTREMITIES: No cyanosis, clubbing, edema. NEUROLOGIC: Cranial nerves II through XII grossly normal. Motor is 5/5 in all extremities. Gait is intact. GENITOURINARY: It was noted the patient has a Montgomery catheter. RECTAL: Refused and deferred. PSYCHIATRIC: Mood and affect is intact. Assessment/Plan Assessment/Plan ASSESSMENT: 1. Acute hypoxemic respiratory failure, most likely secondary to acute COPD exacerbation. 2. Acute COPD exacerbation. 3. Pneumonia. 4. Sick sinus syndrome status post pacemaker. 5. Diabetes type 2. 6. Prostate cancer. 7. Hyperkalemia. 8. Insulin induced hyperglycemia. 9. Prostate enlargement. PLAN: Admit the patient to step-down [facility]. We will follow up with Solu-Medrol IV 60 mg and we will continue to monitor blood glucose level closely. We will start on broad-spectrum antibiotic with Levaquin. Code status is Full Code. DVT prophylaxis, he is on Eliquis. We will continue to monitor cultures and laboratory in the morning. Follow up with Dr. Goldie Obrien, Pulmonary Critical Care consultation. Idris Lugo MD Apr 10, 2019 15:07
[2019-04-10 16:00] VITALS: BP 141/64
[2019-04-10] MEDS ORDERED: NovoLOG Insulin Flexpen SUBQ SCH (16:50)
[2019-04-10 20:00] VITALS: BP 140/64
[2019-04-10] MEDS: Levemir Flexpen SUBQ SCH (21:00)
[2019-04-10] MEDS: Tamsulosin 0.4mg cap ORAL SCH (21:26)
[2019-04-10] MEDS ORDERED: Levofloxacin 250mg/D5W 50ml IVPB SCH (23:00)
[2019-04-11] VITALS: BP 138/67
[2019-04-11] MEDS ORDERED: Nitroglycerin Subl 0.4mg tab SL PRN (02:00)
[2019-04-11] MEDS ORDERED: Promethazine/Codeine 5ml UD ORAL PRN (02:15)
[2019-04-11] MEDS ORDERED: Albuterol/Ipratropium 3ml neb HHN PRN (02:15)
[2019-04-11 04:00] VITALS: BP 112/74
[2019-04-11] MEDS ORDERED: NovoLOG Insulin Flexpen SUBQ SCH (06:30)
[2019-04-11] MEDS: NovoLOG Insulin Flexpen SUBQ SCH ×6 (06:43→21:00)
--- NOTE | 2019-04-11 07:24 | General Progress Note ---
Assessment/Plan Problem List: (1) COPD exacerbation ICD Codes: J44.1 - Chronic obstructive pulmonary disease with (acute) exacerbation SNOMED: 237358610 (2) Respiratory failure with hypoxia ICD Codes: J96.91 - Respiratory failure, unspecified with hypoxia SNOMED: 28795045094556320 (3) Diabetes mellitus ICD Codes: E11.9 - Type 2 diabetes mellitus without complications SNOMED: 20732872 (4) Pacemaker ICD Codes: Z95.0 - Presence of cardiac pacemaker SNOMED: 025769300 (5) Prostate cancer ICD Codes: C61 - Malignant neoplasm of prostate SNOMED: 457480988 Assessment/Plan: continue Levemir 10 units qhs increase Novolog to 8 units ac tid continue NISS ac / hs Subjective ROS Limited/Unobtainable: Yes Allergies: Coded Allergies: No Known Allergies (Unverified , 10/24/16) Subjective glucose spike yesterday due to non compliance with diet Item Value Date Time Bedside Blood Glucose 155 mg/dl H 04/11/19 0643 Bedside Blood Glucose 418 mg/dl H 04/10/19 1823 Bedside Blood Glucose 254 mg/dl H 04/10/19 1332 Objective Last 24 Hour Vital Signs Date Time Temp Pulse Resp B/P (MAP) Pulse Ox O2 Delivery O2 Flow Rate FiO2 04/11/19 04:00 Room Air 04/11/19 04:00 97.8 62 21 112/74 (87) 96 04/11/19 00:00 72 04/11/19 00:00 98.7 72 20 138/67 (90) 99 04/10/19 23:43 Room Air 04/10/19 21:27 82 140/64 04/10/19 20:00 Room Air 04/10/19 20:00 99.7 82 20 140/64 (89) 96 04/10/19 20:00 87 04/10/19 19:10 92 Nasal Cannula 2.0 28 04/10/19 17:22 81 04/10/19 16:00 Room Air 04/10/19 16:00 97.9 80 22 141/64 (89) 96 04/10/19 12:00 Room Air 04/10/19 12:00 97.5 76 23 138/69 (92) 97 04/10/19 11:40 78 04/10/19 09:58 65 114/78 04/10/19 08:00 Room Air 04/10/19 08:00 96.8 65 22 114/78 (90) 97 04/10/19 07:49 68 Intake and Output 04/10/19 04/11/19 19:00 07:00 Intake Total 1200 ml 50 ml Output Total 1600 ml 1300 ml Balance -400 ml -1250 ml Intake Oral 1200 ml IV Total 50 ml Output Urine Total 1600 ml 1300 ml # Bowel Movements 1 Height (Feet): 6 Height (Inches): 0.00 Weight (Pounds): 196 General Appearance: no apparent distress Neck: normal alignment Cardiovascular: normal rate Respiratory/Chest: decreased breath sounds Abdomen: normal bowel sounds Pelvis: normal external exam Objective Current Medications Medications (Trade) Dose Ordered Sig/Dejon Route PRN Reason Start Time Stop Time Status Last Admin Dose Admin Acetaminophen (Tylenol) 650 mg Q4H PRN ORAL fever 04/11/19 02:15 05/08/19 02:14 Albuterol/ Ipratropium (Albuterol/ Ipratropium) 3 ml Q4H PRN HHN dyspnea 04/11/19 02:15 04/13/19 02:14 Apixaban (Eliquis) 5 mg BID ORAL 04/11/19 09:00 05/09/19 08:59 Carvedilol (Coreg) 6.25 mg EVERY 12 HOURS ORAL 04/11/19 09:00 05/09/19 08:59 Clonidine HCl (Catapres Tab) 0.1 mg Q4H PRN ORAL sbp more than 160 04/11/19 02:15 05/08/19 02:14 Dextrose (Dextrose 50%) 25 ml Q30M PRN IV Hypoglycemia 04/11/19 02:30 05/09/19 07:29 Dextrose (Dextrose 50%) 50 ml Q30M PRN IV Hypoglycemia 04/11/19 02:30 05/09/19 07:29 Insulin Aspart (NovoLOG) BEFORE MEALS AND HS SUBQ 04/11/19 06:30 05/09/19 13:29 04/11/19 06:43 Insulin Aspart (NovoLOG) 6 units NOVOTIAC SUBQ 04/11/19 06:30 05/10/19 16:49 04/11/19 06:42 Insulin Detemir (Levemir) 10 units BEDTIME SUBQ 04/11/19 21:00 05/09/19 20:59 Levofloxacin 50 ml @ 50 mls/hr Q24H IVPB 04/11/19 23:00 04/17/19 22:59 Levothyroxine Sodium (Synthroid) 150 mcg ACBREAKFAST ORAL 04/11/19 06:30 05/09/19 06:29 04/11/19 06:41 Methylprednisolone Sodium Succinate (Solu-MEDROL) 60 mg DAILY IV 04/11/19 09:00 05/09/19 00:00 Nitroglycerin (Ntg) 0.4 mg Q5M X 3 DOSES PRN SL Prn Chest Pain 04/11/19 02:00 05/08/19 21:29 Ondansetron HCl (Zofran) 4 mg Q6H PRN IVP Nausea & Vomiting 04/11/19 02:15 05/08/19 02:14 Promethazine HCl/ Codeine (Phenergan with Codeine) 5 ml Q6H PRN ORAL cough 04/11/19 02:15 05/08/19 02:14 Tamsulosin HCl (Flomax) 0.4 mg BEDTIME ORAL 04/11/19 21:00 05/09/19 20:59 Temazepam (Restoril) 15 mg HSPRN PRN ORAL Insomnia 04/11/19 02:15 04/15/19 02:14 Geovanni To MD Apr 11, 2019 07:24
[2019-04-11 07:43] LABS: HEMATOCRIT 40.7 % (42.0-52.0); HEMOGLOBIN 13.6 G/DL (14.2-18.0); MEAN CORPUSCULAR VOLUME 88 FL (80-99); PLATELET COUNT 321 K/UL (150-450); RED BLOOD COUNT 4.62 M/UL (4.70-6.10); RED CELL DISTRIBUTION WIDTH 13.5 % (11.6-14.8)
[2019-04-11 07:44] LABS: WHITE BLOOD COUNT 24.9 K/UL (4.8-10.8)
[2019-04-11 07:54] LABS: ALANINE AMINOTRANSFERASE 55 U/L (12-78); ALBUMIN 2.8 G/DL (3.4-5.0); ALBUMIN/GLOBULIN RATIO 0.8 (1.0-2.7); ALKALINE PHOSPHATASE 73 U/L (46-116); ANION GAP 3 mmol/L (5-15); ASPARTATE AMINO TRANSFERASE 22 U/L (15-37); BILIRUBIN,TOTAL 0.2 MG/DL (0.2-1.0); BLOOD UREA NITROGEN 33 mg/dL (7-18); CALCIUM 8.7 MG/DL (8.5-10.1); CARBON DIOXIDE 34 MMOL/L (21-32); CHLORIDE 102 MMOL/L (98-107); CREATININE 1.2 MG/DL (0.55-1.30); POTASSIUM 4.6 MMOL/L (3.5-5.1); SODIUM 139 MMOL/L (136-145)
[2019-04-11 08:00] VITALS: BP 118/70
[2019-04-11] MEDS: Carvedilol 6.25mg Tab ORAL SCH ×2 (09:00→21:14)
[2019-04-11] MEDS: Eliquis 5mg tablet ORAL SCH ×2 (09:03→17:09)
[2019-04-11] MEDS: Solu-MEDROL 125mg Inj IV SCH (09:04)
[2019-04-11] MEDS ORDERED: NS 275ml ONE (10:13)
[2019-04-11] MEDS ORDERED: Tubing IV Secondary IV ONE (10:13)
[2019-04-11 12:00] VITALS: BP 110/65
--- NOTE | 2019-04-11 15:04 | Internal Med Progress Note ---
Subjective Date of Service: Apr 11, 2019 Physician Name Idris Lugo Attending Physician Jewel Giraldo MD Current Medications Medications (Trade) Dose Ordered Sig/Dejon Route PRN Reason Start Time Stop Time Status Last Admin Dose Admin Acetaminophen (Tylenol) 650 mg Q4H PRN ORAL fever 04/11/19 02:15 05/08/19 02:14 Albuterol/ Ipratropium (Albuterol/ Ipratropium) 3 ml Q4H PRN HHN dyspnea 04/11/19 02:15 04/13/19 02:14 Apixaban (Eliquis) 5 mg BID ORAL 04/11/19 09:00 05/09/19 08:59 04/11/19 09:03 Carvedilol (Coreg) 6.25 mg EVERY 12 HOURS ORAL 04/11/19 09:00 05/09/19 08:59 Clonidine HCl (Catapres Tab) 0.1 mg Q4H PRN ORAL sbp more than 160 04/11/19 02:15 05/08/19 02:14 Dextrose (Dextrose 50%) 25 ml Q30M PRN IV Hypoglycemia 04/11/19 02:30 05/09/19 07:29 Dextrose (Dextrose 50%) 50 ml Q30M PRN IV Hypoglycemia 04/11/19 02:30 05/09/19 07:29 Insulin Aspart (NovoLOG) BEFORE MEALS AND HS SUBQ 04/11/19 06:30 05/09/19 13:29 04/11/19 12:12 Insulin Aspart (NovoLOG) 8 units NOVOTIAC SUBQ 04/11/19 11:50 05/10/19 16:49 04/11/19 12:11 Insulin Detemir (Levemir) 10 units BEDTIME SUBQ 04/11/19 21:00 05/09/19 20:59 Levofloxacin 100 ml @ 100 mls/hr Q24H IVPB 04/11/19 23:00 04/18/19 22:59 Levothyroxine Sodium (Synthroid) 150 mcg ACBREAKFAST ORAL 04/11/19 06:30 05/09/19 06:29 04/11/19 06:41 Methylprednisolone Sodium Succinate (Solu-MEDROL) 60 mg DAILY IV 04/11/19 09:00 05/09/19 00:00 04/11/19 09:04 Nitroglycerin (Ntg) 0.4 mg Q5M X 3 DOSES PRN SL Prn Chest Pain 04/11/19 02:00 05/08/19 21:29 Ondansetron HCl (Zofran) 4 mg Q6H PRN IVP Nausea & Vomiting 04/11/19 02:15 05/08/19 02:14 Promethazine HCl/ Codeine (Phenergan with Codeine) 5 ml Q6H PRN ORAL cough 04/11/19 02:15 05/08/19 02:14 Tamsulosin HCl (Flomax) 0.4 mg BEDTIME ORAL 04/11/19 21:00 05/09/19 20:59 Temazepam (Restoril) 15 mg HSPRN PRN ORAL Insomnia 04/11/19 02:15 04/15/19 02:14 Allergies: Coded Allergies: No Known Allergies (Unverified , 10/24/16) ROS Limited/Unobtainable: Yes Subjective 73 YO M admitted with COPD exacerbation. Now respiratory failure. Cover for Int Med-DR Giraldo Objective Last Vital Signs Date Time Temp Pulse Resp B/P (MAP) Pulse Ox O2 Delivery O2 Flow Rate FiO2 04/11/19 12:00 97.8 72 20 110/65 (80) 93 04/11/19 09:00 Nasal Cannula 3.0 04/11/19 08:02 28 Laboratory Tests Test 04/11/19 07:20 White Blood Count 24.9 K/UL (4.8-10.8) *H Red Blood Count 4.62 M/UL (4.70-6.10) L Hemoglobin 13.6 G/DL (14.2-18.0) L Hematocrit 40.7 % (42.0-52.0) L Mean Corpuscular Volume 88 FL (80-99) Mean Corpuscular Hemoglobin 29.5 PG (27.0-31.0) Mean Corpuscular Hemoglobin Concent 33.5 G/DL (32.0-36.0) Red Cell Distribution Width 13.5 % (11.6-14.8) Platelet Count 321 K/UL (150-450) Mean Platelet Volume 6.5 FL (6.5-10.1) Neutrophils (%) (Auto) % (45.0-75.0) Lymphocytes (%) (Auto) % (20.0-45.0) Monocytes (%) (Auto) % (1.0-10.0) Eosinophils (%) (Auto) % (0.0-3.0) Basophils (%) (Auto) % (0.0-2.0) Differential Total Cells Counted 100 Neutrophils % (Manual) 77 % (45-75) H Lymphocytes % (Manual) 13 % (20-45) L Monocytes % (Manual) 9 % (1-10) Eosinophils % (Manual) 1 % (0-3) Basophils % (Manual) 0 % (0-2) Band Neutrophils 0 % (0-8) Platelet Estimate Adequate Platelet Morphology Normal Red Blood Cell Morphology Normal Sodium Level 139 MMOL/L (136-145) Potassium Level 4.6 MMOL/L (3.5-5.1) Chloride Level 102 MMOL/L (98-107) Carbon Dioxide Level 34 MMOL/L (21-32) H Anion Gap 3 mmol/L (5-15) L Blood Urea Nitrogen 33 mg/dL (7-18) H Creatinine 1.2 MG/DL (0.55-1.30) Estimat Glomerular Filtration Rate mL/min (>60) Glucose Level 177 MG/DL (74-106) H Calcium Level 8.7 MG/DL (8.5-10.1) Total Bilirubin 0.2 MG/DL (0.2-1.0) Aspartate Amino Transf (AST/SGOT) 22 U/L (15-37) Alanine Aminotransferase (ALT/SGPT) 55 U/L (12-78) Alkaline Phosphatase 73 U/L (46-116) Total Protein 6.2 G/DL (6.4-8.2) L Albumin 2.8 G/DL (3.4-5.0) L Globulin 3.4 g/dL Albumin/Globulin Ratio 0.8 (1.0-2.7) L Microbiology Date/Time Source Procedure Growth Status 04/08/19 19:59 Nasal Nares MRSA Culture - Final NO METHICILLIN RESISTANT STAPH AUREUS... Complete 04/08/19 19:59 Rectum - Final NO CARBAPENEM-RESISTANT ENTEROBACTERI... Complete 04/08/19 19:59 Rectum VRE Culture - Final NO VANCOMYCIN RESISTANT ENTEROCOCCUS ... Complete Intake and Output 04/10/19 04/11/19 19:00 07:00 Intake Total 1200 ml 50 ml Output Total 1600 ml 1450 ml Balance -400 ml -1400 ml Intake Oral 1200 ml IV Total 50 ml Output Urine Total 1600 ml 1450 ml # Bowel Movements 1 Objective PHYSICAL EXAMINATION: VITAL SIGNS: On admission, temperature is 97.4, pulse is 72, respirations 22, blood pressure of 120/80. GENERAL: The patient is awake, responsive, no acute distress. HEAD AND NECK: Pupils are equal and reactive to light. Extraocular muscles intact. Neck was supple. No JVD. LUNGS: Good air entry. The patient has expiratory wheezes noted. Tachypneic. No rhonchi was noted. HEART: S1, S2. Irregular. No murmur. The patient has a pacemaker in the left-sided chest wall. ABDOMEN: Soft, nondistended, nontender. Mildly obese. EXTREMITIES: No cyanosis, clubbing, edema. NEUROLOGIC: Cranial nerves II through XII grossly normal. Motor is 5/5 in all extremities. Gait is intact. GENITOURINARY: It was noted the patient has a Montgomery catheter. RECTAL: Refused and deferred. PSYCHIATRIC: Mood and affect is intact. Assessment/Plan Assessment/Plan ASSESSMENT: 1. Acute hypoxemic respiratory failure, most likely secondary to acute COPD exacerbation. 2. Acute COPD exacerbation. 3. Pneumonia. 4. Sick sinus syndrome status post pacemaker. 5. Diabetes type 2. 6. Prostate cancer. 7. Hyperkalemia. 8. Insulin induced hyperglycemia. 9. Prostate enlargement. PLAN: 1. Med/Surg. 2. Solu-Medrol IV 60 mg Per Pulmonary consult=Dr. Obrien. 3. Endocrinology=Dr To. Monitor blood glucose level closely. 4. antibiotic=Levaquin. ID=Dr Villa 5. Code status is Full Code. DVT prophylaxis, he is on Eliquis. Idris Lugo MD Apr 11, 2019 15:04
[2019-04-11 16:00] VITALS: BP 130/78
--- NOTE | 2019-04-11 19:46 | Pulmonology Progress Note ---
Assessment/Plan Assessment/Plan Pulmonary Prohgress Note: HPI: Patient is a 73-year-old male with a history of COPD, Diabetes Mellitis admitted with shortness of breath. Recent admission with COPD exacerbation. Admitted [place] [facility] [place] ago. PMH: COPD, CAD, CHF, PPM, DM, Prostate cancer PSH: Pacemaker Allergies: None reported Social Hx: Quit smoking 1 year ago Allergies: No Known Allergies All Other Systems: negative except mentioned in HPI Physical Exam Vital Signs Noted General: Awake and alert, no acute distress HEENT: NC/AT. EOMI. Cardiovascular: RRR. S1 and S2 normal. No murmur appreciated Resp: Tachypnea. Clear lung sounds bilaterally. No crackles, no wheezing. No cough. Abdomen: Abdomen is soft, nondistended. Nontender : Montgomery skin: Intact. No abrasions, laceration or rash over the exposed skin MSK: Normal tone and bulk. Moving all extremities. No obvious deformity. Neuro: Awake and alert. Mentating appropriately. Impression: COPD exacerbation Respiratory failure with hypoxia Hyperkalemia Possible chest infection CAD CHF PPM Diabetes Mellitis Prostate cancer Plan: IV steroids - wean as tolerated Antibiotics HHN Diurese PRN ISS WELD FITTER Medications PPX O2 PRN BiPAP PRN Monitor labs Laboratory Tests Test 04/08/19 17:48 04/08/19 18:10 04/08/19 20:03 Arterial Blood pH 7.344 (7.350-7.450) 7.363 (7.350-7.450) Arterial Blood Partial Pressure CO2 57.4 mmHg (35.0-45.0) *H 51.0 mmHg (35.0-45.0) H Arterial Blood Partial Pressure O2 45.3 mmHg (75.0-100.0) 87.4 mmHg (75.0-100.0) Arterial Blood HCO3 30.6 mmol/L (22.0-26.0) H 28.4 mmol/L (22.0-26.0) H Arterial Blood Oxygen Saturation 67.8 % (95-100) *L 96.3 % (95-100) Arterial Blood Base Excess 3.4 (-2-2) H 2.1 (-2-2) H Dewayne Test Positive Positive White Blood Count 16.9 K/UL (4.8-10.8) H Red Blood Count 4.77 M/UL (4.70-6.10) Hemoglobin 13.6 G/DL (14.2-18.0) L Hematocrit 44.9 % (42.0-52.0) Mean Corpuscular Volume 94 FL (80-99) Mean Corpuscular Hemoglobin 28.5 PG (27.0-31.0) Mean Corpuscular Hemoglobin Concent 30.3 G/DL (32.0-36.0) L Red Cell Distribution Width 14.1 % (11.6-14.8) Platelet Count 297 K/UL (150-450) Mean Platelet Volume 7.9 FL (6.5-10.1) Neutrophils (%) (Auto) % (45.0-75.0) Lymphocytes (%) (Auto) % (20.0-45.0) Monocytes (%) (Auto) % (1.0-10.0) Eosinophils (%) (Auto) % (0.0-3.0) Basophils (%) (Auto) % (0.0-2.0) Differential Total Cells Counted 100 Neutrophils % (Manual) 80 % (45-75) H Lymphocytes % (Manual) 11 % (20-45) L Monocytes % (Manual) 7 % (1-10) Eosinophils % (Manual) 1 % (0-3) Basophils % (Manual) 0 % (0-2) Band Neutrophils 1 % (0-8) Platelet Estimate Adequate Platelet Morphology Normal Red Blood Cell Morphology Normal Sodium Level 136 MMOL/L (136-145) Potassium Level 5.8 MMOL/L (3.5-5.1) H Chloride Level 98 MMOL/L (98-107) Carbon Dioxide Level 30 MMOL/L (21-32) Anion Gap 8 mmol/L (5-15) Blood Urea Nitrogen 33 mg/dL (7-18) H Creatinine 1.3 MG/DL (0.55-1.30) Estimate Glomerular Filtration Rate mL/min (>60) Glucose Level 476 MG/DL (74-106) H Calcium Level 9.3 MG/DL (8.5-10.1) Total Bilirubin 0.2 MG/DL (0.2-1.0) Aspartate Amino Transferase (AST) 23 U/L (15-37) Alanine Aminotransferase (ALT) 58 U/L (12-78) Alkaline Phosphatase 102 U/L (46-116) Troponin I 0.009 ng/mL (0.000-0.056) Pro-B-Type Natriuretic Peptide 181 pg/mL (0-125) H Total Protein 6.9 G/DL (6.4-8.2) Albumin 3.2 G/DL (3.4-5.0) L Globulin 3.7 g/dL Albumin/Globulin Ratio 0.9 (1.0-2.7) L EKG: Sinus rhythm, extreme right axis deviation, interventricular conduction delay Chest X-Ray: mild congestion Subjective ROS Limited/Unobtainable: No Allergies: Coded Allergies: No Known Allergies (Unverified , 10/24/16) Objective Last 24 Hour Vital Signs Date Time Temp Pulse Resp B/P (MAP) Pulse Ox O2 Delivery O2 Flow Rate FiO2 04/11/19 16:00 97.8 72 20 130/78 (95) 93 04/11/19 12:00 97.8 72 20 110/65 (80) 93 04/11/19 09:00 Nasal Cannula 3.0 04/11/19 09:00 76 118/70 04/11/19 08:02 93 Nasal Cannula 2.0 28 04/11/19 08:00 97.4 76 20 118/70 (86) 93 04/11/19 04:00 Room Air 04/11/19 04:00 97.8 62 21 112/74 (87) 96 04/11/19 00:00 72 04/11/19 00:00 98.7 72 20 138/67 (90) 99 04/10/19 23:43 Room Air 04/10/19 21:27 82 140/64 04/10/19 20:00 Room Air 04/10/19 20:00 99.7 82 20 140/64 (89) 96 04/10/19 20:00 87 Intake and Output 04/10/19 04/11/19 18:59 06:59 Intake Total 1200 ml 50 ml Output Total 1600 ml 1450 ml Balance -400 ml -1400 ml Intake Oral 1200 ml IV Total 50 ml Output Urine Total 1600 ml 1450 ml # Bowel Movements 1 Microbiology Date/Time Source Procedure Growth Status 04/08/19 19:59 Nasal Nares MRSA Culture - Final NO METHICILLIN RESISTANT STAPH AUREUS... Complete 04/08/19 19:59 Rectum - Final NO CARBAPENEM-RESISTANT ENTEROBACTERI... Complete 04/08/19 19:59 Rectum VRE Culture - Final NO VANCOMYCIN RESISTANT ENTEROCOCCUS ... Complete Laboratory Tests 04/11/19 07:20: White Blood Count 24.9*H, Red Blood Count 4.62L, Hemoglobin 13.6L, Hematocrit 40.7L, Mean Corpuscular Volume 88, Mean Corpuscular Hemoglobin 29.5, Mean Corpuscular Hemoglobin Concent 33.5, Red Cell Distribution Width 13.5, Platelet Count 321, Mean Platelet Volume 6.5, Neutrophils (%) (Auto) , Lymphocytes (%) ( Auto) , Monocytes (%) (Auto) , Eosinophils (%) (Auto) , Basophils (%) (Auto) , Differential Total Cells Counted 100, Neutrophils % (Manual) 77H, Lymphocytes % (Manual) 13L, Monocytes % (Manual) 9, Eosinophils % (Manual) 1, Basophils % ( Manual) 0, Band Neutrophils 0, Platelet Estimate Adequate, Platelet Morphology Normal, Red Blood Cell Morphology Normal, Sodium Level 139, Potassium Level 4.6 , Chloride Level 102, Carbon Dioxide Level 34H, Anion Gap 3L, Blood Urea Nitrogen 33H, Creatinine 1.2, Estimat Glomerular Filtration Rate , Glucose Level 177H, Calcium Level 8.7, Total Bilirubin 0.2, Aspartate Amino Transf (AST/ SGOT) 22, Alanine Aminotransferase (ALT/SGPT) 55, Alkaline Phosphatase 73, Total Protein 6.2L, Albumin 2.8L, Globulin 3.4, Albumin/Globulin Ratio 0.8L Current Medications Medications (Trade) Dose Ordered Sig/Dejon Route PRN Reason Start Time Stop Time Status Last Admin Dose Admin Acetaminophen (Tylenol) 650 mg Q4H PRN ORAL fever 04/11/19 02:15 05/08/19 02:14 Albuterol/ Ipratropium (Albuterol/ Ipratropium) 3 ml Q4H PRN HHN dyspnea 04/11/19 02:15 04/13/19 02:14 Apixaban (Eliquis) 5 mg BID ORAL 04/11/19 09:00 05/09/19 08:59 04/11/19 17:09 Carvedilol (Coreg) 6.25 mg EVERY 12 HOURS ORAL 04/11/19 09:00 05/09/19 08:59 Clonidine HCl (Catapres Tab) 0.1 mg Q4H PRN ORAL sbp more than 160 04/11/19 02:15 05/08/19 02:14 Dextrose (Dextrose 50%) 25 ml Q30M PRN IV Hypoglycemia 04/11/19 02:30 05/09/19 07:29 Dextrose (Dextrose 50%) 50 ml Q30M PRN IV Hypoglycemia 04/11/19 02:30 05/09/19 07:29 Insulin Aspart (NovoLOG) BEFORE MEALS AND HS SUBQ 04/11/19 06:30 05/09/19 13:29 04/11/19 16:52 Insulin Aspart (NovoLOG) 8 units NOVOTIAC SUBQ 04/11/19 11:50 05/10/19 16:49 04/11/19 16:52 Insulin Detemir (Levemir) 10 units BEDTIME SUBQ 04/11/19 21:00 05/09/19 20:59 Levofloxacin 100 ml @ 100 mls/hr Q24H IVPB 04/11/19 23:00 04/18/19 22:59 Levothyroxine Sodium (Synthroid) 150 mcg ACBREAKFAST ORAL 04/11/19 06:30 05/09/19 06:29 04/11/19 06:41 Methylprednisolone Sodium Succinate (Solu-MEDROL) 60 mg DAILY IV 04/11/19 09:00 05/09/19 00:00 04/11/19 09:04 Nitroglycerin (Ntg) 0.4 mg Q5M X 3 DOSES PRN SL Prn Chest Pain 04/11/19 02:00 05/08/19 21:29 Ondansetron HCl (Zofran) 4 mg Q6H PRN IVP Nausea & Vomiting 04/11/19 02:15 05/08/19 02:14 Promethazine HCl/ Codeine (Phenergan with Codeine) 5 ml Q6H PRN ORAL cough 04/11/19 02:15 05/08/19 02:14 Tamsulosin HCl (Flomax) 0.4 mg BEDTIME ORAL 04/11/19 21:00 05/09/19 20:59 Temazepam (Restoril) 15 mg HSPRN PRN ORAL Insomnia 04/11/19 02:15 04/15/19 02:14 Michele Mcmahan MD Apr 11, 2019 19:46
[2019-04-11 20:00] VITALS: BP 125/77
[2019-04-11] MEDS: Levemir Flexpen SUBQ SCH (21:00)
[2019-04-11] MEDS: Tamsulosin 0.4mg cap ORAL SCH (21:13)
[2019-04-12] VITALS: BP 112/66
[2019-04-12 04:00] VITALS: BP 120/81
[2019-04-12] MEDS: NovoLOG Insulin Flexpen SUBQ SCH ×7 (06:41→20:15)
--- NOTE | 2019-04-12 07:04 | General Progress Note ---
Assessment/Plan Problem List: (1) COPD exacerbation ICD Codes: J44.1 - Chronic obstructive pulmonary disease with (acute) exacerbation SNOMED: 165297432 (2) Respiratory failure with hypoxia ICD Codes: J96.91 - Respiratory failure, unspecified with hypoxia SNOMED: 44195898586242383 (3) Diabetes mellitus ICD Codes: E11.9 - Type 2 diabetes mellitus without complications SNOMED: 35447981 (4) Pacemaker ICD Codes: Z95.0 - Presence of cardiac pacemaker SNOMED: 364684605 (5) Prostate cancer ICD Codes: C61 - Malignant neoplasm of prostate SNOMED: 506375642 Assessment/Plan: continue Levemir 10 units qhs continue Novolog 8 units ac tid continue NISS ac / hs Subjective Allergies: Coded Allergies: No Known Allergies (Unverified , 10/24/16) Subjective glucose values improved but still elevated Item Value Date Time Bedside Blood Glucose 183 mg/dl H 04/12/19 0642 Bedside Blood Glucose 313 mg/dl H 04/11/19 1850 Bedside Blood Glucose 232 mg/dl H 04/11/19 1212 Bedside Blood Glucose 155 mg/dl H 04/11/19 0643 Objective Last 24 Hour Vital Signs Date Time Temp Pulse Resp B/P (MAP) Pulse Ox O2 Delivery O2 Flow Rate FiO2 04/12/19 04:00 97.5 65 17 120/81 (94) 95 04/12/19 01:11 62 20 97 Nasal Cannula 3.0 32 60 20 95 04/12/19 00:00 97.3 60 18 112/66 (81) 93 04/11/19 21:14 77 125/77 04/11/19 21:00 Nasal Cannula 3.0 04/11/19 20:00 97.7 77 18 125/77 (93) 94 04/11/19 18:50 95 Nasal Cannula 3.0 32 04/11/19 16:00 97.8 72 20 130/78 (95) 93 04/11/19 12:00 97.8 72 20 110/65 (80) 93 04/11/19 09:00 Nasal Cannula 3.0 04/11/19 09:00 76 118/70 04/11/19 08:02 93 Nasal Cannula 2.0 28 04/11/19 08:00 97.4 76 20 118/70 (86) 93 Intake and Output 04/11/19 04/12/19 19:00 07:00 Intake Total 600 ml 100 ml Output Total 1100 ml Balance -500 ml 100 ml Intake Oral 600 ml IV Total 100 ml Output Urine Total 1100 ml # Bowel Movements 2 Laboratory Tests 04/11/19 07:20: White Blood Count 24.9*H, Red Blood Count 4.62L, Hemoglobin 13.6L, Hematocrit 40.7L, Mean Corpuscular Volume 88, Mean Corpuscular Hemoglobin 29.5, Mean Corpuscular Hemoglobin Concent 33.5, Red Cell Distribution Width 13.5, Platelet Count 321, Mean Platelet Volume 6.5, Neutrophils (%) (Auto) , Lymphocytes (%) ( Auto) , Monocytes (%) (Auto) , Eosinophils (%) (Auto) , Basophils (%) (Auto) , Differential Total Cells Counted 100, Neutrophils % (Manual) 77H, Lymphocytes % (Manual) 13L, Monocytes % (Manual) 9, Eosinophils % (Manual) 1, Basophils % ( Manual) 0, Band Neutrophils 0, Platelet Estimate Adequate, Platelet Morphology Normal, Red Blood Cell Morphology Normal, Sodium Level 139, Potassium Level 4.6 , Chloride Level 102, Carbon Dioxide Level 34H, Anion Gap 3L, Blood Urea Nitrogen 33H, Creatinine 1.2, Estimat Glomerular Filtration Rate , Glucose Level 177H, Calcium Level 8.7, Total Bilirubin 0.2, Aspartate Amino Transf (AST/ SGOT) 22, Alanine Aminotransferase (ALT/SGPT) 55, Alkaline Phosphatase 73, Total Protein 6.2L, Albumin 2.8L, Globulin 3.4, Albumin/Globulin Ratio 0.8L Height (Feet): 6 Height (Inches): 0.00 Weight (Pounds): 196 General Appearance: no apparent distress Neck: normal alignment Cardiovascular: normal rate Respiratory/Chest: lungs clear Abdomen: normal bowel sounds Pelvis: normal external exam Objective Current Medications Medications (Trade) Dose Ordered Sig/Dejon Route PRN Reason Start Time Stop Time Status Last Admin Dose Admin Acetaminophen (Tylenol) 650 mg Q4H PRN ORAL fever 04/11/19 02:15 05/08/19 02:14 Albuterol/ Ipratropium (Albuterol/ Ipratropium) 3 ml Q4H PRN HHN dyspnea 04/11/19 02:15 04/13/19 02:14 04/12/19 01:11 Apixaban (Eliquis) 5 mg BID ORAL 04/11/19 09:00 05/09/19 08:59 04/11/19 17:09 Carvedilol (Coreg) 6.25 mg EVERY 12 HOURS ORAL 04/11/19 09:00 05/09/19 08:59 04/11/19 21:14 Clonidine HCl (Catapres Tab) 0.1 mg Q4H PRN ORAL sbp more than 160 04/11/19 02:15 05/08/19 02:14 Dextrose (Dextrose 50%) 25 ml Q30M PRN IV Hypoglycemia 04/11/19 02:30 05/09/19 07:29 Dextrose (Dextrose 50%) 50 ml Q30M PRN IV Hypoglycemia 04/11/19 02:30 05/09/19 07:29 Insulin Aspart (NovoLOG) BEFORE MEALS AND HS SUBQ 04/11/19 06:30 05/09/19 13:29 04/12/19 06:41 Insulin Aspart (NovoLOG) 8 units NOVOTIAC SUBQ 04/11/19 11:50 05/10/19 16:49 04/12/19 06:42 Insulin Detemir (Levemir) 10 units BEDTIME SUBQ 04/11/19 21:00 05/09/19 20:59 Levofloxacin 100 ml @ 100 mls/hr Q24H IVPB 04/11/19 23:00 04/18/19 22:59 04/11/19 22:34 Levothyroxine Sodium (Synthroid) 150 mcg ACBREAKFAST ORAL 04/11/19 06:30 05/09/19 06:29 04/12/19 06:40 Methylprednisolone Sodium Succinate (Solu-MEDROL) 60 mg DAILY IV 04/11/19 09:00 05/09/19 00:00 04/11/19 09:04 Nitroglycerin (Ntg) 0.4 mg Q5M X 3 DOSES PRN SL Prn Chest Pain 04/11/19 02:00 05/08/19 21:29 Ondansetron HCl (Zofran) 4 mg Q6H PRN IVP Nausea & Vomiting 04/11/19 02:15 05/08/19 02:14 Promethazine HCl/ Codeine (Phenergan with Codeine) 5 ml Q6H PRN ORAL cough 04/11/19 02:15 05/08/19 02:14 Tamsulosin HCl (Flomax) 0.4 mg BEDTIME ORAL 04/11/19 21:00 05/09/19 20:59 04/11/19 21:13 Temazepam (Restoril) 15 mg HSPRN PRN ORAL Insomnia 04/11/19 02:15 04/15/19 02:14 Geovanni To MD Apr 12, 2019 07:04
[2019-04-12 08:00] VITALS: BP 117/62
--- NOTE | 2019-04-12 09:00 | Consultation ---
DATE OF CONSULTATION: 04/10/2019 ENDOCRINOLOGY CONSULTATION CONSULTING PHYSICIAN: Geovanni To M.D. REFERRING PHYSICIAN: Jewel Giraldo M.D. REASON FOR CONSULTATION: Diabetes management. HISTORY OF PRESENT ILLNESS: The patient is a 73-year-old male with past medical history of tobacco smoking, COPD, coronary artery disease, prostate cancer, sick sinus syndrome, status post pacemaker, atrial fibrillation, and diabetes who presented to the hospital with COPD exacerbation, started on IV Solu-Medrol, which raised the glucose significantly. Therefore, Endocrinology was consulted. PAST MEDICAL HISTORY: 1. Diabetes. 2. COPD. 3. Coronary artery disease. 4. Prostate cancer. 5. Sick sinus syndrome. 6. Cardiac arrhythmia. PAST SURGICAL HISTORY: Pacemaker placement. MEDICATIONS: Reviewed and reconciled. ALLERGIES TO MEDICATIONS: None. SOCIAL HISTORY: History of smoking. No alcohol or drug use. FAMILY HISTORY: Noncontributory. REVIEW OF SYSTEMS: A 12-point review of systems was performed. The pertinent positives and negatives are mentioned in the history of present illness. LABORATORY DATA: WBC 19, hemoglobin 12, hematocrit 29. Sodium 132, potassium 5.2, chloride 94, bicarb 28, BUN 34, creatinine 1.6, and glucose of 688. Hemoglobin A1c of 8.6. PHYSICAL EXAMINATION: GENERAL: Awake and alert. VITAL SIGNS: Blood pressure is 140/82, pulse 70, temperature 98.2, and respiratory rate 18. HEENT: Pupils are equal and reactive to light. Sclerae are anicteric. NECK: No JVD. HEART: Regular rate and rhythm. LUNGS: Crackles and wheezing. ABDOMEN: Positive bowel sounds. EXTREMITIES: Lower extremity trace edema. DIAGNOSES: 1. Diabetes, out of control, exacerbated by steroids. 2. COPD exacerbation. PLAN: 1. Continue Levemir as is. 2. Add NovoLog 6 units before each meal in addition to the sliding scale. 3. Further adjustment according to blood glucose values. Thank you, Dr. Giraldo, for the courtesy of this consultation. Geovanni To M.D. DR: LINDA/ JOB#: [id number] CC: JACKELIN
[2019-04-12] MEDS: Carvedilol 6.25mg Tab ORAL SCH ×2 (09:21→20:14)
[2019-04-12] MEDS: Solu-MEDROL 125mg Inj IV SCH (09:21)
[2019-04-12] MEDS: Eliquis 5mg tablet ORAL SCH ×2 (09:21→17:00)
[2019-04-12 12:00] VITALS: BP 111/64
--- NOTE | 2019-04-12 13:13 | Pulmonology Progress Note ---
Assessment/Plan Problems: (1) Respiratory failure with hypoxia (2) COPD exacerbation (3) Pneumonia (4) Pacemaker (5) Diabetes mellitus (6) Prostate cancer Assessment/Plan still short of breath coughing phlegm BC positive check CXR and BnP in am sliding scale might need 1-2 days until less dyspnea Subjective ROS Limited/Unobtainable: No Constitutional: Reports: no symptoms HEENT: Repors: no symptoms Allergies: Coded Allergies: No Known Allergies (Unverified , 10/24/16) Objective Last 24 Hour Vital Signs Date Time Temp Pulse Resp B/P (MAP) Pulse Ox O2 Delivery O2 Flow Rate FiO2 04/12/19 12:00 97.7 70 22 111/64 (80) 92 04/12/19 09:21 73 117/62 04/12/19 09:00 Nasal Cannula 3.0 04/12/19 08:00 97.4 73 22 117/62 (80) 90 04/12/19 04:00 97.5 65 17 120/81 (94) 95 04/12/19 01:11 62 20 97 Nasal Cannula 3.0 32 60 20 95 04/12/19 00:00 97.3 60 18 112/66 (81) 93 04/11/19 21:14 77 125/77 04/11/19 21:00 Nasal Cannula 3.0 04/11/19 20:00 97.7 77 18 125/77 (93) 94 04/11/19 18:50 95 Nasal Cannula 3.0 32 04/11/19 16:00 97.8 72 20 130/78 (95) 93 Intake and Output 04/11/19 04/12/19 19:00 07:00 Intake Total 600 ml 100 ml Output Total 1100 ml 1700 ml Balance -500 ml -1600 ml Intake Oral 600 ml IV Total 100 ml Output Urine Total 1100 ml 1700 ml # Bowel Movements 2 General Appearance: WD/WN HEENT: normocephalic, atraumatic Respiratory/Chest: chest wall non-tender, lungs clear Cardiovascular: normal peripheral pulses, normal rate Abdomen: normal bowel sounds, soft, non tender Genitourinary: normal external genitalia Extremities: no cyanosis Skin: no rash Current Medications Medications (Trade) Dose Ordered Sig/Dejon Route PRN Reason Start Time Stop Time Status Last Admin Dose Admin Acetaminophen (Tylenol) 650 mg Q4H PRN ORAL fever 04/11/19 02:15 05/08/19 02:14 Albuterol/ Ipratropium (Albuterol/ Ipratropium) 3 ml Q4H PRN HHN dyspnea 04/11/19 02:15 04/13/19 02:14 04/12/19 01:11 Apixaban (Eliquis) 5 mg BID ORAL 04/11/19 09:00 05/09/19 08:59 04/12/19 09:21 Carvedilol (Coreg) 6.25 mg EVERY 12 HOURS ORAL 04/11/19 09:00 05/09/19 08:59 04/12/19 09:21 Clonidine HCl (Catapres Tab) 0.1 mg Q4H PRN ORAL sbp more than 160 04/11/19 02:15 05/08/19 02:14 Dextrose (Dextrose 50%) 25 ml Q30M PRN IV Hypoglycemia 04/11/19 02:30 05/09/19 07:29 Dextrose (Dextrose 50%) 50 ml Q30M PRN IV Hypoglycemia 04/11/19 02:30 05/09/19 07:29 Insulin Aspart (NovoLOG) BEFORE MEALS AND HS SUBQ 04/11/19 06:30 05/09/19 13:29 04/12/19 12:19 Insulin Aspart (NovoLOG) 8 units NOVOTIAC SUBQ 04/11/19 11:50 05/10/19 16:49 04/12/19 12:19 Insulin Detemir (Levemir) 10 units BEDTIME SUBQ 04/11/19 21:00 05/09/19 20:59 Levofloxacin 100 ml @ 100 mls/hr Q24H IVPB 04/11/19 23:00 04/18/19 22:59 04/11/19 22:34 Levothyroxine Sodium (Synthroid) 150 mcg ACBREAKFAST ORAL 04/11/19 06:30 05/09/19 06:29 04/12/19 06:40 Methylprednisolone Sodium Succinate (Solu-MEDROL) 60 mg DAILY IV 04/11/19 09:00 05/09/19 00:00 04/12/19 09:21 Nitroglycerin (Ntg) 0.4 mg Q5M X 3 DOSES PRN SL Prn Chest Pain 04/11/19 02:00 05/08/19 21:29 Ondansetron HCl (Zofran) 4 mg Q6H PRN IVP Nausea & Vomiting 04/11/19 02:15 05/08/19 02:14 Promethazine HCl/ Codeine (Phenergan with Codeine) 5 ml Q6H PRN ORAL cough 04/11/19 02:15 05/08/19 02:14 Tamsulosin HCl (Flomax) 0.4 mg BEDTIME ORAL 04/11/19 21:00 05/09/19 20:59 04/11/19 21:13 Temazepam (Restoril) 15 mg HSPRN PRN ORAL Insomnia 04/11/19 02:15 04/15/19 02:14 Goldie Obrien MD Apr 12, 2019 13:13
--- NOTE | 2019-04-12 15:10 | Infectious Diseases Prog Note ---
Assessment/Plan Assessment/Plan Assessment: Acute hypoxic respiratory failure s/p bipap, now on NC COPD exacerbation CHF exacerbation -04/08 CXR: Mild pulmonary vascular congestion suspected Afebrile Leukocytosis, increased (on high dose steroids) KAYLAN, worsening Hyperglycemia COPD CAD CHF prostate cancer s/p PPM former smoker Plan: -Continue Levaquin #5/5 for COPD exacerbation -04/08 SP Ceftriaxone x1, Azithromycin x1 -f/u cx -Monitor CBC/CMP, temperatures -f/u influenza sc -CBC, CMP am -CXR am Thank you for this consultation. Will continue to follow along with you. Discussed with RN Subjective Allergies: Coded Allergies: No Known Allergies (Unverified , 10/24/16) Subjective afebrile wbc increased (on high dose steroids) Objective Vital Signs Last 24 Hour Vital Signs Date Time Temp Pulse Resp B/P (MAP) Pulse Ox O2 Delivery O2 Flow Rate FiO2 04/12/19 13:59 91 Nasal Cannula 2.0 28 04/12/19 12:00 97.7 70 22 111/64 (80) 92 04/12/19 09:21 73 117/62 04/12/19 09:00 Nasal Cannula 3.0 04/12/19 08:00 97.4 73 22 117/62 (80) 90 04/12/19 04:00 97.5 65 17 120/81 (94) 95 04/12/19 01:11 62 20 97 Nasal Cannula 3.0 32 60 20 95 04/12/19 00:00 97.3 60 18 112/66 (81) 93 04/11/19 21:14 77 125/77 04/11/19 21:00 Nasal Cannula 3.0 04/11/19 20:00 97.7 77 18 125/77 (93) 94 04/11/19 18:50 95 Nasal Cannula 3.0 32 04/11/19 16:00 97.8 72 20 130/78 (95) 93 Height (Feet): 6 Height (Inches): 0.00 Weight (Pounds): 196 Objective General Appearance: WD/WN Lines, tubes and drains: peripheral HEENT: normocephalic, atraumatic Neck: non-tender, normal alignment Respiratory/Chest: chest wall non-tender, rhonchi - left, rhonchi - right Cardiovascular/Chest: normal peripheral pulses Extremities: normal range of motion Current Medications Medications (Trade) Dose Ordered Sig/Dejon Route PRN Reason Start Time Stop Time Status Last Admin Dose Admin Acetaminophen (Tylenol) 650 mg Q4H PRN ORAL fever 04/11/19 02:15 05/08/19 02:14 Albuterol/ Ipratropium (Albuterol/ Ipratropium) 3 ml Q4H PRN HHN dyspnea 04/11/19 02:15 04/13/19 02:14 04/12/19 01:11 Apixaban (Eliquis) 5 mg BID ORAL 04/11/19 09:00 05/09/19 08:59 04/12/19 09:21 Carvedilol (Coreg) 6.25 mg EVERY 12 HOURS ORAL 04/11/19 09:00 05/09/19 08:59 04/12/19 09:21 Clonidine HCl (Catapres Tab) 0.1 mg Q4H PRN ORAL sbp more than 160 04/11/19 02:15 05/08/19 02:14 Dextrose (Dextrose 50%) 25 ml Q30M PRN IV Hypoglycemia 04/11/19 02:30 05/09/19 07:29 Dextrose (Dextrose 50%) 50 ml Q30M PRN IV Hypoglycemia 04/11/19 02:30 05/09/19 07:29 Insulin Aspart (NovoLOG) BEFORE MEALS AND HS SUBQ 04/11/19 06:30 05/09/19 13:29 04/12/19 12:19 Insulin Aspart (NovoLOG) 8 units NOVOTIAC SUBQ 04/11/19 11:50 05/10/19 16:49 04/12/19 12:19 Insulin Detemir (Levemir) 10 units BEDTIME SUBQ 04/11/19 21:00 05/09/19 20:59 Levofloxacin 100 ml @ 100 mls/hr Q24H IVPB 04/11/19 23:00 04/18/19 22:59 04/11/19 22:34 Levothyroxine Sodium (Synthroid) 150 mcg ACBREAKFAST ORAL 04/11/19 06:30 05/09/19 06:29 04/12/19 06:40 Nitroglycerin (Ntg) 0.4 mg Q5M X 3 DOSES PRN SL Prn Chest Pain 04/11/19 02:00 05/08/19 21:29 Ondansetron HCl (Zofran) 4 mg Q6H PRN IVP Nausea & Vomiting 04/11/19 02:15 05/08/19 02:14 Promethazine HCl/ Codeine (Phenergan with Codeine) 5 ml Q6H PRN ORAL cough 04/11/19 02:15 05/08/19 02:14 Tamsulosin HCl (Flomax) 0.4 mg BEDTIME ORAL 04/11/19 21:00 05/09/19 20:59 04/11/19 21:13 Temazepam (Restoril) 15 mg HSPRN PRN ORAL Insomnia 04/11/19 02:15 04/15/19 02:14 An Villa M.D. Apr 12, 2019 15:10
[2019-04-12 16:00] VITALS: BP 123/70
--- NOTE | 2019-04-12 19:13 | Internal Med Progress Note ---
Subjective Date of Service: Apr 12, 2019 Physician Name Idris Lugo Attending Physician Jewel Giraldo MD Current Medications Medications (Trade) Dose Ordered Sig/Dejon Route PRN Reason Start Time Stop Time Status Last Admin Dose Admin Acetaminophen (Tylenol) 650 mg Q4H PRN ORAL fever 04/11/19 02:15 05/08/19 02:14 Albuterol/ Ipratropium (Albuterol/ Ipratropium) 3 ml Q4H PRN HHN dyspnea 04/11/19 02:15 04/13/19 02:14 04/12/19 01:11 Apixaban (Eliquis) 5 mg BID ORAL 04/11/19 09:00 05/09/19 08:59 04/12/19 17:00 Carvedilol (Coreg) 6.25 mg EVERY 12 HOURS ORAL 04/11/19 09:00 05/09/19 08:59 04/12/19 09:21 Clonidine HCl (Catapres Tab) 0.1 mg Q4H PRN ORAL sbp more than 160 04/11/19 02:15 05/08/19 02:14 Dextrose (Dextrose 50%) 25 ml Q30M PRN IV Hypoglycemia 04/11/19 02:30 05/09/19 07:29 Dextrose (Dextrose 50%) 50 ml Q30M PRN IV Hypoglycemia 04/11/19 02:30 05/09/19 07:29 Insulin Aspart (NovoLOG) BEFORE MEALS AND HS SUBQ 04/11/19 06:30 05/09/19 13:29 04/12/19 16:59 Insulin Aspart (NovoLOG) 8 units NOVOTIAC SUBQ 04/11/19 11:50 05/10/19 16:49 04/12/19 16:58 Insulin Detemir (Levemir) 10 units BEDTIME SUBQ 04/11/19 21:00 05/09/19 20:59 Levofloxacin 100 ml @ 100 mls/hr Q24H IVPB 04/11/19 23:00 04/18/19 22:59 04/11/19 22:34 Levothyroxine Sodium (Synthroid) 150 mcg ACBREAKFAST ORAL 04/11/19 06:30 05/09/19 06:29 04/12/19 06:40 Nitroglycerin (Ntg) 0.4 mg Q5M X 3 DOSES PRN SL Prn Chest Pain 04/11/19 02:00 05/08/19 21:29 Ondansetron HCl (Zofran) 4 mg Q6H PRN IVP Nausea & Vomiting 04/11/19 02:15 05/08/19 02:14 Promethazine HCl/ Codeine (Phenergan with Codeine) 5 ml Q6H PRN ORAL cough 04/11/19 02:15 05/08/19 02:14 Tamsulosin HCl (Flomax) 0.4 mg BEDTIME ORAL 04/11/19 21:00 05/09/19 20:59 04/11/19 21:13 Temazepam (Restoril) 15 mg HSPRN PRN ORAL Insomnia 04/11/19 02:15 04/15/19 02:14 Allergies: Coded Allergies: No Known Allergies (Unverified , 10/24/16) ROS Limited/Unobtainable: No Constitutional: Reports: no symptoms HEENT: Reports: no symptoms Cardiovascular: Reports: no symptoms Respiratory: Reports: cough, wheezing Gastrointestinal/Abdominal: Reports: no symptoms Genitourinary: Reports: no symptoms Neurologic/Psychiatric: Reports: no symptoms Subjective 73 YO M admitted with COPD exacerbation. Now respiratory failure. Cover for Int Bubba-DR Giradlo Objective Last Vital Signs Date Time Temp Pulse Resp B/P (MAP) Pulse Ox O2 Delivery O2 Flow Rate FiO2 04/12/19 16:00 97.6 71 22 123/70 (87) 90 04/12/19 13:59 Nasal Cannula 2.0 28 Intake and Output 04/11/19 04/12/19 18:59 06:59 Intake Total 600 ml 100 ml Output Total 2800 ml Balance 600 ml -2700 ml Intake Oral 600 ml IV Total 100 ml Output Urine Total 2800 ml # Bowel Movements 1 1 Objective PHYSICAL EXAMINATION: VITAL SIGNS: On admission, temperature is 97.4, pulse is 72, respirations 22, blood pressure of 120/80. GENERAL: The patient is awake, responsive, no acute distress. HEAD AND NECK: Pupils are equal and reactive to light. Extraocular muscles intact. Neck was supple. No JVD. LUNGS: Good air entry. The patient has expiratory wheezes noted. Tachypneic. No rhonchi was noted. HEART: S1, S2. Irregular. No murmur. The patient has a pacemaker in the left-sided chest wall. ABDOMEN: Soft, nondistended, nontender. Mildly obese. EXTREMITIES: No cyanosis, clubbing, edema. NEUROLOGIC: Cranial nerves II through XII grossly normal. Motor is 5/5 in all extremities. Gait is intact. GENITOURINARY: It was noted the patient has a [place] catheter. RECTAL: Refused and deferred. PSYCHIATRIC: Mood and affect is intact. Assessment/Plan Assessment/Plan ASSESSMENT: 1. Acute hypoxemic respiratory failure, most likely secondary to acute COPD exacerbation. 2. Acute COPD exacerbation. 3. Pneumonia. 4. Sick sinus syndrome status post pacemaker. 5. Diabetes type 2. 6. Prostate cancer. 7. Hyperkalemia. 8. Insulin induced hyperglycemia. 9. Prostate enlargement. 10. Leukocytosis PLAN: 1. Med/Surg. 2. D/C Solu-Medrol IV Per Pulmonary consult=Dr. Obrien. 3. Endocrinology=Dr To. Monitor blood glucose level closely. 4. antibiotic=Levaquin. ID=Dr Villa 5. Code status is Full Code. DVT prophylaxis, he is on Eliquis. Idris Lugo MD Apr 12, 2019 19:13
[2019-04-12 20:00] VITALS: BP 127/74
[2019-04-12] MEDS: Tamsulosin 0.4mg cap ORAL SCH (20:14)
[2019-04-12] MEDS: Levemir Flexpen SUBQ SCH (20:15)
[2019-04-13] VITALS: BP 90/57
[2019-04-13 04:00] VITALS: BP 110/68
--- NOTE | 2019-04-13 06:04 | General Progress Note ---
Assessment/Plan Problem List: (1) COPD exacerbation ICD Codes: J44.1 - Chronic obstructive pulmonary disease with (acute) exacerbation SNOMED: 839885727 (2) Respiratory failure with hypoxia ICD Codes: J96.91 - Respiratory failure, unspecified with hypoxia SNOMED: 09014298484095192 (3) Diabetes mellitus ICD Codes: E11.9 - Type 2 diabetes mellitus without complications SNOMED: 43829646 (4) Pacemaker ICD Codes: Z95.0 - Presence of cardiac pacemaker SNOMED: 763310744 (5) Prostate cancer ICD Codes: C61 - Malignant neoplasm of prostate SNOMED: 670107460 (6) Hypothyroid ICD Codes: E03.9 - Hypothyroidism, unspecified SNOMED: 20909096 Assessment/Plan: glucose values are expected to improved since he is no longer on IVSM continue Levemir 10 units qhs continue Novolog 8 units ac tid continue NISS ac / hs Subjective Allergies: Coded Allergies: No Known Allergies (Unverified , 10/24/16) All Systems: reviewed and negative except above Subjective events noted he is upset because didn't get enough food last night no longer on IVSM Item Value Date Time Bedside Blood Glucose 382 mg/dl H 04/12/192014 Bedside Blood Glucose 552 mg/dl H 04/12/19 1659 Bedside Blood Glucose 400 mg/dl H 04/12/19 1219 Objective Last 24 Hour Vital Signs Date Time Temp Pulse Resp B/P (MAP) Pulse Ox O2 Delivery O2 Flow Rate FiO2 04/13/19 04:00 97.7 63 14 110/68 (82) 93 04/13/19 00:00 98.0 76 14 90/57 (68) 92 04/12/19 21:00 Nasal Cannula 3.0 04/12/19 20:14 71 123/70 04/12/19 20:00 93 Nasal Cannula 2.0 28 04/12/19 20:00 97.4 72 16 127/74 (91) 92 04/12/19 16:00 97.6 71 22 123/70 (87) 90 04/12/19 13:59 91 Nasal Cannula 2.0 28 04/12/19 12:00 97.7 70 22 111/64 (80) 92 04/12/19 09:21 73 117/62 04/12/19 09:00 Nasal Cannula 3.0 04/12/19 08:00 97.4 73 22 117/62 (80) 90 Intake and Output 04/12/19 04/13/19 19:00 07:00 Intake Total 600 ml 100 ml Output Total 1400 ml Balance -800 ml 100 ml Intake Oral 600 ml IV Total 100 ml Output Urine Total 1400 ml # Bowel Movements 1 Height (Feet): 6 Height (Inches): 0.00 Weight (Pounds): 196 General Appearance: no apparent distress Neck: normal alignment Cardiovascular: normal rate Respiratory/Chest: decreased breath sounds Abdomen: normal bowel sounds Edema: no edema noted Arm (L), no edema noted Arm (R), no edema noted Leg (L), no edema noted Leg (R), no edema noted Pedal (L), no edema noted Pedal (R), no edema noted Generalized Objective Current Medications Medications (Trade) Dose Ordered Sig/Dejon Route PRN Reason Start Time Stop Time Status Last Admin Dose Admin Acetaminophen (Tylenol) 650 mg Q4H PRN ORAL fever 04/11/19 02:15 05/08/19 02:14 Apixaban (Eliquis) 5 mg BID ORAL 04/11/19 09:00 05/09/19 08:59 04/12/19 17:00 Carvedilol (Coreg) 6.25 mg EVERY 12 HOURS ORAL 04/11/19 09:00 05/09/19 08:59 04/12/19 20:14 Clonidine HCl (Catapres Tab) 0.1 mg Q4H PRN ORAL sbp more than 160 04/11/19 02:15 05/08/19 02:14 Dextrose (Dextrose 50%) 25 ml Q30M PRN IV Hypoglycemia 04/11/19 02:30 05/09/19 07:29 Dextrose (Dextrose 50%) 50 ml Q30M PRN IV Hypoglycemia 04/11/19 02:30 05/09/19 07:29 Insulin Aspart (NovoLOG) BEFORE MEALS AND HS SUBQ 04/11/19 06:30 05/09/19 13:29 04/12/19 20:15 Insulin Aspart (NovoLOG) 8 units NOVOTIAC SUBQ 04/11/19 11:50 05/10/19 16:49 04/12/19 16:58 Insulin Detemir (Levemir) 10 units BEDTIME SUBQ 04/11/19 21:00 05/09/19 20:59 04/12/19 20:15 Levofloxacin 100 ml @ 100 mls/hr Q24H IVPB 04/11/19 23:00 04/18/19 22:59 04/12/19 22:20 Levothyroxine Sodium (Synthroid) 150 mcg ACBREAKFAST ORAL 04/11/19 06:30 05/09/19 06:29 04/12/19 06:40 Nitroglycerin (Ntg) 0.4 mg Q5M X 3 DOSES PRN SL Prn Chest Pain 04/11/19 02:00 05/08/19 21:29 Ondansetron HCl (Zofran) 4 mg Q6H PRN IVP Nausea & Vomiting 04/11/19 02:15 05/08/19 02:14 Promethazine HCl/ Codeine (Phenergan with Codeine) 5 ml Q6H PRN ORAL cough 04/11/19 02:15 05/08/19 02:14 Tamsulosin HCl (Flomax) 0.4 mg BEDTIME ORAL 04/11/19 21:00 05/09/19 20:59 04/12/19 20:14 Temazepam (Restoril) 15 mg HSPRN PRN ORAL Insomnia 04/11/19 02:15 04/15/19 02:14 Geovanni To MD Apr 13, 2019 06:04
[2019-04-13] MEDS: NovoLOG Insulin Flexpen SUBQ SCH ×7 (06:30→21:00)
[2019-04-13 08:00] VITALS: BP 125/79
[2019-04-13 08:35] LABS: HEMATOCRIT 43.5 % (42.0-52.0); HEMOGLOBIN 14.8 G/DL (14.2-18.0); MEAN CORPUSCULAR VOLUME 88 FL (80-99); PLATELET COUNT 326 K/UL (150-450); RED BLOOD COUNT 4.94 M/UL (4.70-6.10); RED CELL DISTRIBUTION WIDTH 13.7 % (11.6-14.8); WHITE BLOOD COUNT 21.3 K/UL (4.8-10.8)
[2019-04-13 08:47] LABS: ANION GAP 7 mmol/L (5-15); BLOOD UREA NITROGEN 36 mg/dL (7-18); CARBON DIOXIDE 32 MMOL/L (21-32); CHLORIDE 99 MMOL/L (98-107); CREATININE 1.1 MG/DL (0.55-1.30); POTASSIUM 4.6 MMOL/L (3.5-5.1); SODIUM 138 MMOL/L (136-145)
[2019-04-13] MEDS: Carvedilol 6.25mg Tab ORAL SCH ×2 (09:22→21:00)
[2019-04-13] MEDS: Eliquis 5mg tablet ORAL SCH ×2 (09:23→17:06)
--- NOTE | 2019-04-13 10:42 | Infectious Diseases Prog Note ---
Assessment/Plan Assessment/Plan Assessment: Acute hypoxic respiratory failure s/p bipap, now on NC COPD exacerbation CHF exacerbation -04/08 CXR: Mild pulmonary vascular congestion suspected Afebrile Leukocytosis, increased (on high dose steroids), now imrpoving KAYLAN, improving Hyperglycemia COPD CAD CHF prostate cancer s/p PPM former smoker Plan: -Continue Levaquin #5/5-7 for COPD exacerbation -04/08 SP Ceftriaxone x1, Azithromycin x1 -f/u cx -Monitor CBC/CMP, temperatures -f/u influenza sc -CBC, CMP am -f/u CXR am Thank you for this consultation. Will continue to follow along with you. Discussed with RN Subjective Allergies: Coded Allergies: No Known Allergies (Unverified , 10/24/16) Subjective afebrile wbc increased (on high dose steroids), now improving Objective Vital Signs Last 24 Hour Vital Signs Date Time Temp Pulse Resp B/P (MAP) Pulse Ox O2 Delivery O2 Flow Rate FiO2 04/13/19 09:22 78 125/79 04/13/19 09:00 Nasal Cannula 3.0 04/13/19 08:31 94 Nasal Cannula 2.0 28 04/13/19 08:00 98.2 78 22 125/79 (94) 92 04/13/19 04:00 97.7 63 14 110/68 (82) 93 04/13/19 00:00 98.0 76 14 90/57 (68) 92 04/12/19 21:00 Nasal Cannula 3.0 04/12/19 20:14 71 123/70 04/12/19 20:00 93 Nasal Cannula 2.0 28 04/12/19 20:00 97.4 72 16 127/74 (91) 92 04/12/19 16:00 97.6 71 22 123/70 (87) 90 04/12/19 13:59 91 Nasal Cannula 2.0 28 04/12/19 12:00 97.7 70 22 111/64 (80) 92 Height (Feet): 6 Height (Inches): 0.00 Weight (Pounds): 196 Objective General Appearance: WD/WN Lines, tubes and drains: peripheral HEENT: normocephalic, atraumatic Neck: non-tender, normal alignment Respiratory/Chest: chest wall non-tender, rhonchi - left, rhonchi - right Cardiovascular/Chest: normal peripheral pulses Extremities: normal range of motion Laboratory Tests Test 04/13/19 07:35 White Blood Count 21.3 K/UL (4.8-10.8) H Red Blood Count 4.94 M/UL (4.70-6.10) Hemoglobin 14.8 G/DL (14.2-18.0) Hematocrit 43.5 % (42.0-52.0) Mean Corpuscular Volume 88 FL (80-99) Mean Corpuscular Hemoglobin 30.0 PG (27.0-31.0) Mean Corpuscular Hemoglobin Concent 34.0 G/DL (32.0-36.0) Red Cell Distribution Width 13.7 % (11.6-14.8) Platelet Count 326 K/UL (150-450) Mean Platelet Volume 6.3 FL (6.5-10.1) L Neutrophils (%) (Auto) % (45.0-75.0) Lymphocytes (%) (Auto) % (20.0-45.0) Monocytes (%) (Auto) % (1.0-10.0) Eosinophils (%) (Auto) % (0.0-3.0) Basophils (%) (Auto) % (0.0-2.0) Neutrophils % (Manual) Pending Lymphocytes % (Manual) Pending Platelet Estimate Pending Platelet Morphology Pending Sodium Level 138 MMOL/L (136-145) Potassium Level 4.6 MMOL/L (3.5-5.1) Chloride Level 99 MMOL/L (98-107) Carbon Dioxide Level 32 MMOL/L (21-32) Anion Gap 7 mmol/L (5-15) Blood Urea Nitrogen 36 mg/dL (7-18) H Creatinine 1.1 MG/DL (0.55-1.30) Estimat Glomerular Filtration Rate mL/min (>60) Glucose Level 150 MG/DL (74-106) H Calcium Level 9.0 MG/DL (8.5-10.1) Current Medications Medications (Trade) Dose Ordered Sig/Dejon Route PRN Reason Start Time Stop Time Status Last Admin Dose Admin Acetaminophen (Tylenol) 650 mg Q4H PRN ORAL fever 04/11/19 02:15 05/08/19 02:14 Apixaban (Eliquis) 5 mg BID ORAL 04/11/19 09:00 05/09/19 08:59 04/13/19 09:23 Carvedilol (Coreg) 6.25 mg EVERY 12 HOURS ORAL 04/11/19 09:00 05/09/19 08:59 04/13/19 09:22 Clonidine HCl (Catapres Tab) 0.1 mg Q4H PRN ORAL sbp more than 160 04/11/19 02:15 05/08/19 02:14 Dextrose (Dextrose 50%) 25 ml Q30M PRN IV Hypoglycemia 04/11/19 02:30 05/09/19 07:29 Dextrose (Dextrose 50%) 50 ml Q30M PRN IV Hypoglycemia 04/11/19 02:30 05/09/19 07:29 Insulin Aspart (NovoLOG) BEFORE MEALS AND HS SUBQ 04/11/19 06:30 05/09/19 13:29 04/12/19 20:15 Insulin Aspart (NovoLOG) 8 units NOVOTIAC SUBQ 04/11/19 11:50 05/10/19 16:49 04/12/19 16:58 Insulin Detemir (Levemir) 10 units BEDTIME SUBQ 04/11/19 21:00 05/09/19 20:59 04/12/19 20:15 Levofloxacin 100 ml @ 100 mls/hr Q24H IVPB 04/11/19 23:00 04/18/19 22:59 04/12/19 22:20 Levothyroxine Sodium (Synthroid) 150 mcg ACBREAKFAST ORAL 04/11/19 06:30 05/09/19 06:29 04/12/19 06:40 Nitroglycerin (Ntg) 0.4 mg Q5M X 3 DOSES PRN SL Prn Chest Pain 04/11/19 02:00 05/08/19 21:29 Ondansetron HCl (Zofran) 4 mg Q6H PRN IVP Nausea & Vomiting 04/11/19 02:15 05/08/19 02:14 Promethazine HCl/ Codeine (Phenergan with Codeine) 5 ml Q6H PRN ORAL cough 04/11/19 02:15 05/08/19 02:14 Tamsulosin HCl (Flomax) 0.4 mg BEDTIME ORAL 04/11/19 21:00 05/09/19 20:59 04/12/19 20:14 Temazepam (Restoril) 15 mg HSPRN PRN ORAL Insomnia 04/11/19 02:15 04/15/19 02:14 An Villa M.D. Apr 13, 2019 10:42
--- NOTE | 2019-04-13 11:47 | Pulmonology Progress Note ---
Assessment/Plan Problems: (1) Respiratory failure with hypoxia (2) COPD exacerbation (3) Pneumonia (4) Pacemaker (5) Diabetes mellitus (6) Prostate cancer Assessment/Plan still short of breath coughing phlegm CXR pending sliding scale might need 1-2 days until less dyspnea Subjective ROS Limited/Unobtainable: No Interval Events: still short of breath and coughing a lot Constitutional: Reports: no symptoms HEENT: Repors: no symptoms Allergies: Coded Allergies: No Known Allergies (Unverified , 10/24/16) Objective Last 24 Hour Vital Signs Date Time Temp Pulse Resp B/P (MAP) Pulse Ox O2 Delivery O2 Flow Rate FiO2 04/13/19 09:22 78 125/79 04/13/19 09:00 Nasal Cannula 3.0 04/13/19 08:31 94 Nasal Cannula 2.0 28 04/13/19 08:00 98.2 78 22 125/79 (94) 92 04/13/19 04:00 97.7 63 14 110/68 (82) 93 04/13/19 00:00 98.0 76 14 90/57 (68) 92 04/12/19 21:00 Nasal Cannula 3.0 04/12/19 20:14 71 123/70 04/12/19 20:00 93 Nasal Cannula 2.0 28 04/12/19 20:00 97.4 72 16 127/74 (91) 92 04/12/19 16:00 97.6 71 22 123/70 (87) 90 04/12/19 13:59 91 Nasal Cannula 2.0 28 04/12/19 12:00 97.7 70 22 111/64 (80) 92 Intake and Output 04/12/19 04/13/19 19:00 07:00 Intake Total 600 ml 460 ml Output Total 1400 ml 1800 ml Balance -800 ml -1340 ml Intake Oral 600 ml IV Total 100 ml Other 360 ml Output Urine Total 1400 ml 1800 ml # Bowel Movements 1 General Appearance: WD/WN HEENT: normocephalic, atraumatic Respiratory/Chest: chest wall non-tender, lungs clear Cardiovascular: normal peripheral pulses, normal rate, no JVD Abdomen: soft, non tender Genitourinary: normal external genitalia Skin: no rash, no ulcers Lymphatic: no neck adenopathy Musculoskeletal: normal muscle bulk Laboratory Tests 04/13/19 07:35: White Blood Count 21.3H, Red Blood Count 4.94, Hemoglobin 14.8, Hematocrit 43.5 , Mean Corpuscular Volume 88, Mean Corpuscular Hemoglobin 30.0, Mean Corpuscular Hemoglobin Concent 34.0, Red Cell Distribution Width 13.7, Platelet Count 326, Mean Platelet Volume 6.3L, Neutrophils (%) (Auto) , Lymphocytes (%) ( Auto) , Monocytes (%) (Auto) , Eosinophils (%) (Auto) , Basophils (%) (Auto) , Neutrophils % (Manual) [Pending], Lymphocytes % (Manual) [Pending], Platelet Estimate [Pending], Platelet Morphology [Pending], Sodium Level 138, Potassium Level 4.6, Chloride Level 99, Carbon Dioxide Level 32, Anion Gap 7, Blood Urea Nitrogen 36H, Creatinine 1.1, Estimat Glomerular Filtration Rate , Glucose Level 150H, Calcium Level 9.0 Current Medications Medications (Trade) Dose Ordered Sig/Dejon Route PRN Reason Start Time Stop Time Status Last Admin Dose Admin Acetaminophen (Tylenol) 650 mg Q4H PRN ORAL fever 04/11/19 02:15 05/08/19 02:14 Apixaban (Eliquis) 5 mg BID ORAL 04/11/19 09:00 05/09/19 08:59 04/13/19 09:23 Carvedilol (Coreg) 6.25 mg EVERY 12 HOURS ORAL 04/11/19 09:00 05/09/19 08:59 04/13/19 09:22 Clonidine HCl (Catapres Tab) 0.1 mg Q4H PRN ORAL sbp more than 160 04/11/19 02:15 05/08/19 02:14 Dextrose (Dextrose 50%) 25 ml Q30M PRN IV Hypoglycemia 04/11/19 02:30 05/09/19 07:29 Dextrose (Dextrose 50%) 50 ml Q30M PRN IV Hypoglycemia 04/11/19 02:30 05/09/19 07:29 Insulin Aspart (NovoLOG) BEFORE MEALS AND HS SUBQ 04/11/19 06:30 05/09/19 13:29 04/12/19 20:15 Insulin Aspart (NovoLOG) 8 units NOVOTIAC SUBQ 04/11/19 11:50 05/10/19 16:49 04/12/19 16:58 Insulin Detemir (Levemir) 10 units BEDTIME SUBQ 04/11/19 21:00 05/09/19 20:59 04/12/19 20:15 Levofloxacin 100 ml @ 100 mls/hr Q24H IVPB 04/11/19 23:00 04/18/19 22:59 04/12/19 22:20 Levothyroxine Sodium (Synthroid) 150 mcg ACBREAKFAST ORAL 04/11/19 06:30 05/09/19 06:29 04/12/19 06:40 Nitroglycerin (Ntg) 0.4 mg Q5M X 3 DOSES PRN SL Prn Chest Pain 04/11/19 02:00 05/08/19 21:29 Ondansetron HCl (Zofran) 4 mg Q6H PRN IVP Nausea & Vomiting 04/11/19 02:15 05/08/19 02:14 Promethazine HCl/ Codeine (Phenergan with Codeine) 5 ml Q6H PRN ORAL cough 04/11/19 02:15 05/08/19 02:14 Tamsulosin HCl (Flomax) 0.4 mg BEDTIME ORAL 04/11/19 21:00 05/09/19 20:59 04/12/19 20:14 Temazepam (Restoril) 15 mg HSPRN PRN ORAL Insomnia 04/11/19 02:15 04/15/19 02:14 Goldie Obrien MD Apr 13, 2019 11:47
--- NOTE | 2019-04-13 11:54 | Diagnostic Imaging Report ---
Indication: Dyspnea Comparison: 04/08/2019 A single view chest radiograph was obtained. Findings: Pulmonary vascular congestion suspected. The heart is enlarged. Pacemaker again noted. Bones are osteopenic. IMPRESSION: Suspected mild pulmonary vascular congestion. Correlate clinically
[2019-04-13 12:00] VITALS: BP 109/76
[2019-04-13 16:00] VITALS: BP 115/99
--- NOTE | 2019-04-13 17:02 | Internal Med Progress Note ---
Subjective Date of Service: Apr 13, 2019 Physician Name Idris Lugo Attending Physician Jewel Giraldo MD Current Medications Medications (Trade) Dose Ordered Sig/Dejon Route PRN Reason Start Time Stop Time Status Last Admin Dose Admin Acetaminophen (Tylenol) 650 mg Q4H PRN ORAL fever 04/11/19 02:15 05/08/19 02:14 Apixaban (Eliquis) 5 mg BID ORAL 04/11/19 09:00 05/09/19 08:59 04/13/19 09:23 Carvedilol (Coreg) 6.25 mg EVERY 12 HOURS ORAL 04/11/19 09:00 05/09/19 08:59 04/13/19 09:22 Clonidine HCl (Catapres Tab) 0.1 mg Q4H PRN ORAL sbp more than 160 04/11/19 02:15 05/08/19 02:14 Dextrose (Dextrose 50%) 25 ml Q30M PRN IV Hypoglycemia 04/11/19 02:30 05/09/19 07:29 Dextrose (Dextrose 50%) 50 ml Q30M PRN IV Hypoglycemia 04/11/19 02:30 05/09/19 07:29 Insulin Aspart (NovoLOG) BEFORE MEALS AND HS SUBQ 04/11/19 06:30 05/09/19 13:29 04/13/19 11:53 Insulin Aspart (NovoLOG) 8 units NOVOTIAC SUBQ 04/11/19 11:50 05/10/19 16:49 04/13/19 11:52 Insulin Detemir (Levemir) 10 units BEDTIME SUBQ 04/11/19 21:00 05/09/19 20:59 04/12/19 20:15 Levofloxacin 100 ml @ 100 mls/hr Q24H IVPB 04/11/19 23:00 04/18/19 22:59 04/12/19 22:20 Levothyroxine Sodium (Synthroid) 150 mcg ACBREAKFAST ORAL 04/11/19 06:30 05/09/19 06:29 04/12/19 06:40 Nitroglycerin (Ntg) 0.4 mg Q5M X 3 DOSES PRN SL Prn Chest Pain 04/11/19 02:00 05/08/19 21:29 Ondansetron HCl (Zofran) 4 mg Q6H PRN IVP Nausea & Vomiting 04/11/19 02:15 05/08/19 02:14 Promethazine HCl/ Codeine (Phenergan with Codeine) 5 ml Q6H PRN ORAL cough 04/11/19 02:15 05/08/19 02:14 Tamsulosin HCl (Flomax) 0.4 mg BEDTIME ORAL 04/11/19 21:00 05/09/19 20:59 04/12/19 20:14 Temazepam (Restoril) 15 mg HSPRN PRN ORAL Insomnia 04/11/19 02:15 04/15/19 02:14 Allergies: Coded Allergies: No Known Allergies (Unverified , 10/24/16) Subjective 73 YO M admitted with COPD exacerbation. Now respiratory failure. Cover for Int Med-DR iGraldo Objective Last Vital Signs Date Time Temp Pulse Resp B/P (MAP) Pulse Ox O2 Delivery O2 Flow Rate FiO2 04/13/19 16:00 98.6 69 20 115/99 (104) 95 04/13/19 09:00 Nasal Cannula 3.0 04/13/19 08:31 28 Laboratory Tests Test 04/13/19 07:35 White Blood Count 21.3 K/UL (4.8-10.8) H Red Blood Count 4.94 M/UL (4.70-6.10) Hemoglobin 14.8 G/DL (14.2-18.0) Hematocrit 43.5 % (42.0-52.0) Mean Corpuscular Volume 88 FL (80-99) Mean Corpuscular Hemoglobin 30.0 PG (27.0-31.0) Mean Corpuscular Hemoglobin Concent 34.0 G/DL (32.0-36.0) Red Cell Distribution Width 13.7 % (11.6-14.8) Platelet Count 326 K/UL (150-450) Mean Platelet Volume 6.3 FL (6.5-10.1) L Neutrophils (%) (Auto) % (45.0-75.0) Lymphocytes (%) (Auto) % (20.0-45.0) Monocytes (%) (Auto) % (1.0-10.0) Eosinophils (%) (Auto) % (0.0-3.0) Basophils (%) (Auto) % (0.0-2.0) Differential Total Cells Counted 100 Neutrophils % (Manual) 75 % (45-75) Lymphocytes % (Manual) 19 % (20-45) L Monocytes % (Manual) 6 % (1-10) Eosinophils % (Manual) 0 % (0-3) Basophils % (Manual) 0 % (0-2) Band Neutrophils 0 % (0-8) Nucleated Red Blood Cells 2 /100 WBC Platelet Estimate Adequate Platelet Morphology Normal Red Blood Cell Morphology Normal Sodium Level 138 MMOL/L (136-145) Potassium Level 4.6 MMOL/L (3.5-5.1) Chloride Level 99 MMOL/L (98-107) Carbon Dioxide Level 32 MMOL/L (21-32) Anion Gap 7 mmol/L (5-15) Blood Urea Nitrogen 36 mg/dL (7-18) H Creatinine 1.1 MG/DL (0.55-1.30) Estimat Glomerular Filtration Rate mL/min (>60) Glucose Level 150 MG/DL (74-106) H Calcium Level 9.0 MG/DL (8.5-10.1) Intake and Output 04/12/19 04/13/19 19:00 07:00 Intake Total 600 ml 460 ml Output Total 1400 ml 1800 ml Balance -800 ml -1340 ml Intake Oral 600 ml IV Total 100 ml Other 360 ml Output Urine Total 1400 ml 1800 ml # Bowel Movements 1 Objective PHYSICAL EXAMINATION: VITAL SIGNS: On admission, temperature is 97.4, pulse is 72, respirations 22, blood pressure of 120/80. GENERAL: The patient is awake, responsive, no acute distress. HEAD AND NECK: Pupils are equal and reactive to light. Extraocular muscles intact. Neck was supple. No JVD. LUNGS: Good air entry. The patient has expiratory wheezes noted. Tachypneic. No rhonchi was noted. HEART: S1, S2. Irregular. No murmur. The patient has a pacemaker in the left-sided chest wall. ABDOMEN: Soft, nondistended, nontender. Mildly obese. EXTREMITIES: No cyanosis, clubbing, edema. NEUROLOGIC: Cranial nerves II through XII grossly normal. Motor is 5/5 in all extremities. Gait is intact. GENITOURINARY: It was noted the patient has a Montgomery catheter. RECTAL: Refused and deferred. PSYCHIATRIC: Mood and affect is intact. Assessment/Plan Assessment/Plan ASSESSMENT: 1. Acute hypoxemic respiratory failure, most likely secondary to acute COPD exacerbation. 2. Acute COPD exacerbation. 3. Pneumonia. 4. Sick sinus syndrome status post pacemaker. 5. Diabetes type 2. 6. Prostate cancer. 7. Hyperkalemia. 8. Insulin induced hyperglycemia. 9. Prostate enlargement. 10. Leukocytosis PLAN: 1. Med/Surg. 2. D/C Solu-Medrol IV Per Pulmonary consult=Dr. Obrien. 3. Endocrinology=Dr To. Monitor blood glucose level closely. 4. antibiotic=Levaquin. ID=Dr Villa 5. Code status is Full Code. DVT prophylaxis, he is on Eliquis. Idris Lugo MD Apr 13, 2019 17:02
[2019-04-13 20:00] VITALS: BP 119/73
[2019-04-13] MEDS: Levemir Flexpen SUBQ SCH (21:00)
[2019-04-13] MEDS: Tamsulosin 0.4mg cap ORAL SCH (21:29)
[2019-04-14] VITALS: BP 103/68
[2019-04-14 04:00] VITALS: BP 101/74
[2019-04-14] MEDS: NovoLOG Insulin Flexpen SUBQ SCH ×7 (05:51→20:38)
--- NOTE | 2019-04-14 06:54 | General Progress Note ---
Assessment/Plan Problem List: (1) COPD exacerbation ICD Codes: J44.1 - Chronic obstructive pulmonary disease with (acute) exacerbation SNOMED: 264999455 (2) Respiratory failure with hypoxia ICD Codes: J96.91 - Respiratory failure, unspecified with hypoxia SNOMED: 22714181358666839 (3) Diabetes mellitus ICD Codes: E11.9 - Type 2 diabetes mellitus without complications SNOMED: 48507535 (4) Pacemaker ICD Codes: Z95.0 - Presence of cardiac pacemaker SNOMED: 310326561 (5) Prostate cancer ICD Codes: C61 - Malignant neoplasm of prostate SNOMED: 934261618 (6) Hypothyroid ICD Codes: E03.9 - Hypothyroidism, unspecified SNOMED: 75620550 Assessment/Plan: continue Levemir 10 units qhs continue Novolog 8 units ac tid continue NISS ac / hs Subjective Allergies: Coded Allergies: No Known Allergies (Unverified , 10/24/16) Subjective events noted he is resting glucose values elevated - refused insulin Item Value Date Time Bedside Blood Glucose 288 mg/dl H 04/13/19 1706 Bedside Blood Glucose 207 mg/dl H 04/13/19 1153 Objective Last 24 Hour Vital Signs Date Time Temp Pulse Resp B/P (MAP) Pulse Ox O2 Delivery O2 Flow Rate FiO2 04/14/19 04:00 97.9 76 24 101/74 (83) 92 04/14/19 00:00 74 24 103/68 (80) 92 04/13/19 21:00 Nasal Cannula 4.0 04/13/19 20:00 97.6 70 20 119/73 (88) 92 04/13/19 19:58 95 Nasal Cannula 2.0 28 04/13/19 16:00 98.6 69 20 115/99 (104) 95 04/13/19 12:00 98.2 65 20 109/76 (87) 93 04/13/19 09:22 78 125/79 04/13/19 09:00 Nasal Cannula 3.0 04/13/19 08:31 94 Nasal Cannula 2.0 28 04/13/19 08:00 98.2 78 22 125/79 (94) 92 Intake and Output 04/13/19 04/14/19 19:00 07:00 Intake Total 1200 ml Balance 1200 ml Intake Oral 1200 ml # Bowel Movements 1 Laboratory Tests 04/13/19 07:35: White Blood Count 21.3H, Red Blood Count 4.94, Hemoglobin 14.8, Hematocrit 43.5 , Mean Corpuscular Volume 88, Mean Corpuscular Hemoglobin 30.0, Mean Corpuscular Hemoglobin Concent 34.0, Red Cell Distribution Width 13.7, Platelet Count 326, Mean Platelet Volume 6.3L, Neutrophils (%) (Auto) , Lymphocytes (%) ( Auto) , Monocytes (%) (Auto) , Eosinophils (%) (Auto) , Basophils (%) (Auto) , Differential Total Cells Counted 100, Neutrophils % (Manual) 75, Lymphocytes % ( Manual) 19L, Monocytes % (Manual) 6, Eosinophils % (Manual) 0, Basophils % ( Manual) 0, Band Neutrophils 0, Nucleated Red Blood Cells 2, Platelet Estimate Adequate, Platelet Morphology Normal, Red Blood Cell Morphology Normal, Sodium Level 138, Potassium Level 4.6, Chloride Level 99, Carbon Dioxide Level 32, Anion Gap 7, Blood Urea Nitrogen 36H, Creatinine 1.1, Estimat Glomerular Filtration Rate , Glucose Level 150H, Calcium Level 9.0 Height (Feet): 6 Height (Inches): 0.00 Weight (Pounds): 195 General Appearance: no apparent distress Neck: normal alignment Cardiovascular: normal rate Respiratory/Chest: decreased breath sounds Abdomen: normal bowel sounds Objective Current Medications Medications (Trade) Dose Ordered Sig/Dejon Route PRN Reason Start Time Stop Time Status Last Admin Dose Admin Acetaminophen (Tylenol) 650 mg Q4H PRN ORAL fever 04/11/19 02:15 05/08/19 02:14 Apixaban (Eliquis) 5 mg BID ORAL 04/11/19 09:00 05/09/19 08:59 04/13/19 17:06 Carvedilol (Coreg) 6.25 mg EVERY 12 HOURS ORAL 04/11/19 09:00 05/09/19 08:59 04/13/19 09:22 Clonidine HCl (Catapres Tab) 0.1 mg Q4H PRN ORAL sbp more than 160 04/11/19 02:15 05/08/19 02:14 Dextrose (Dextrose 50%) 25 ml Q30M PRN IV Hypoglycemia 04/11/19 02:30 05/09/19 07:29 Dextrose (Dextrose 50%) 50 ml Q30M PRN IV Hypoglycemia 04/11/19 02:30 05/09/19 07:29 Insulin Aspart (NovoLOG) BEFORE MEALS AND HS SUBQ 04/11/19 06:30 05/09/19 13:29 04/13/19 17:06 Insulin Aspart (NovoLOG) 8 units NOVOTIAC SUBQ 04/11/19 11:50 05/10/19 16:49 04/13/19 17:04 Insulin Detemir (Levemir) 10 units BEDTIME SUBQ 04/11/19 21:00 05/09/19 20:59 04/12/19 20:15 Levofloxacin 100 ml @ 100 mls/hr Q24H IVPB 04/14/19 07:00 04/21/19 06:59 04/14/19 06:32 Levothyroxine Sodium (Synthroid) 150 mcg ACBREAKFAST ORAL 04/11/19 06:30 05/09/19 06:29 04/14/19 05:32 Nitroglycerin (Ntg) 0.4 mg Q5M X 3 DOSES PRN SL Prn Chest Pain 04/11/19 02:00 05/08/19 21:29 Ondansetron HCl (Zofran) 4 mg Q6H PRN IVP Nausea & Vomiting 04/11/19 02:15 05/08/19 02:14 Promethazine HCl/ Codeine (Phenergan with Codeine) 5 ml Q6H PRN ORAL cough 04/11/19 02:15 05/08/19 02:14 Tamsulosin HCl (Flomax) 0.4 mg BEDTIME ORAL 04/11/19 21:00 05/09/19 20:59 04/13/19 21:29 Temazepam (Restoril) 15 mg HSPRN PRN ORAL Insomnia 04/11/19 02:15 04/15/19 02:14 Geovanni To MD Apr 14, 2019 06:54
[2019-04-14 07:37] LABS: BASOPHILS % (AUTO) 1.5 % (0.0-2.0); EOSINOPHILS % (AUTO) 1.4 % (0.0-3.0); HEMATOCRIT 41.7 % (42.0-52.0); LYMPHOCYTES % (AUTO) 22.7 % (20.0-45.0); MEAN CORPUSCULAR VOLUME 88 FL (80-99); MONOCYTES % (AUTO) 6.3 % (1.0-10.0); NEUTROPHILS % (AUTO) 68.2 % (45.0-75.0); PLATELET COUNT 292 K/UL (150-450); RED BLOOD COUNT 4.72 M/UL (4.70-6.10); WHITE BLOOD COUNT 12.3 K/UL (4.8-10.8)
[2019-04-14 07:41] LABS: ANION GAP 5 mmol/L (5-15); BLOOD UREA NITROGEN 39 mg/dL (7-18); CALCIUM 8.8 MG/DL (8.5-10.1); CARBON DIOXIDE 32 MMOL/L (21-32); CHLORIDE 103 MMOL/L (98-107); CREATININE 1.3 MG/DL (0.55-1.30); POTASSIUM 4.6 MMOL/L (3.5-5.1); SODIUM 140 MMOL/L (136-145)
[2019-04-14 08:00] VITALS: BP 113/71
[2019-04-14] MEDS: Eliquis 5mg tablet ORAL SCH ×2 (09:01→17:05)
[2019-04-14] MEDS: Carvedilol 6.25mg Tab ORAL SCH ×2 (09:01→20:34)
--- NOTE | 2019-04-14 11:26 | Pulmonology Progress Note ---
Assessment/Plan Assessment/Plan ASSESSMENT Acute hypoxemic respiratory failure requiring BiPAP , likely secondary to COPD exacerbation -resolved Acute COPD exacerbation Pneumonia SSS, status post pacemaker Diabetes mellitus type 2 Prostate cancer BPH Acute kidney injury- resolved History of smoking ( quit 2 yrs ago) PLAN OF CARE [facility] floor O2 titrate to keep pulse ox >92%, HHN ATC and prn fup with CXR steroids tapered due to KAYLAN, restart oral steroids given significant wheezing and taper fast abx as per ID a/tussive as needed SCX if able BS management with the SSRI, [id number] continue Flomax avoid nephrotoxic , monitor renal parameters, electrolytes, correct electrolytes as needed, acute kidney injury resolved PT eval and Rx ca discussed and evaluated by supervising physician Subjective Allergies: Coded Allergies: No Known Allergies (Unverified , 10/24/16) Subjective wheezing a lot BS trending down Objective Last 24 Hour Vital Signs Date Time Temp Pulse Resp B/P (MAP) Pulse Ox O2 Delivery O2 Flow Rate FiO2 04/14/19 09:01 70 113/71 04/14/19 08:00 98.4 70 20 113/71 (85) 98 04/14/19 04:00 97.9 76 24 101/74 (83) 92 04/14/19 00:00 74 24 103/68 (80) 92 04/13/19 21:00 Nasal Cannula 4.0 04/13/19 20:00 97.6 70 20 119/73 (88) 92 04/13/19 19:58 95 Nasal Cannula 2.0 28 04/13/19 16:00 98.6 69 20 115/99 (104) 95 04/13/19 12:00 98.2 65 20 109/76 (87) 93 Intake and Output 04/13/19 04/14/19 19:00 07:00 Intake Total 1200 ml 720 ml Output Total 1400 ml Balance 1200 ml -680 ml Intake Oral 1200 ml 720 ml Output Urine Total 1400 ml # Bowel Movements 1 General Appearance: no acute distress, other - A/A/O AA male slightly anxious HEENT: normocephalic, atraumatic, anicteric, mucous membranes moist Respiratory/Chest: no respiratory distress, no accessory muscle use, expiratory wheezing - bulateral diffused Cardiovascular: normal peripheral pulses, normal rate Abdomen: normal bowel sounds, soft, non tender Extremities: no edema, pedal pulses normal Neurologic/Psychiatric: alert, oriented x 3, responsive Musculoskeletal: normal muscle bulk Laboratory Tests 04/14/19 06:55: White Blood Count 12.3H, Red Blood Count 4.72, Hemoglobin 14.0L, Hematocrit 41.7L, Mean Corpuscular Volume 88, Mean Corpuscular Hemoglobin 29.6, Mean Corpuscular Hemoglobin Concent 33.5, Red Cell Distribution Width 14.0, Platelet Count 292, Mean Platelet Volume 7.1, Neutrophils (%) (Auto) 68.2, Lymphocytes (% ) (Auto) 22.7, Monocytes (%) (Auto) 6.3, Eosinophils (%) (Auto) 1.4, Basophils ( %) (Auto) 1.5, Sodium Level 140, Potassium Level 4.6, Chloride Level 103, Carbon Dioxide Level 32, Anion Gap 5, Blood Urea Nitrogen 39H, Creatinine 1.3, Estimat Glomerular Filtration Rate , Glucose Level 308#H, Calcium Level 8.8 Current Medications Medications (Trade) Dose Ordered Sig/Dejon Route PRN Reason Start Time Stop Time Status Last Admin Dose Admin Acetaminophen (Tylenol) 650 mg Q4H PRN ORAL fever 04/11/19 02:15 05/08/19 02:14 Apixaban (Eliquis) 5 mg BID ORAL 04/11/19 09:00 05/09/19 08:59 04/14/19 09:01 Carvedilol (Coreg) 6.25 mg EVERY 12 HOURS ORAL 04/11/19 09:00 05/09/19 08:59 04/14/19 09:01 Clonidine HCl (Catapres Tab) 0.1 mg Q4H PRN ORAL sbp more than 160 04/11/19 02:15 05/08/19 02:14 Dextrose (Dextrose 50%) 25 ml Q30M PRN IV Hypoglycemia 04/11/19 02:30 05/09/19 07:29 Dextrose (Dextrose 50%) 50 ml Q30M PRN IV Hypoglycemia 04/11/19 02:30 05/09/19 07:29 Insulin Aspart (NovoLOG) BEFORE MEALS AND HS SUBQ 04/11/19 06:30 05/09/19 13:29 04/13/19 17:06 Insulin Aspart (NovoLOG) 8 units NOVOTIAC SUBQ 04/11/19 11:50 05/10/19 16:49 04/13/19 17:04 Insulin Detemir (Levemir) 10 units BEDTIME SUBQ 04/11/19 21:00 05/09/19 20:59 04/12/19 20:15 Levofloxacin 100 ml @ 100 mls/hr Q24H IVPB 04/14/19 07:00 04/21/19 06:59 04/14/19 06:32 Levothyroxine Sodium (Synthroid) 150 mcg ACBREAKFAST ORAL 04/11/19 06:30 05/09/19 06:29 04/14/19 05:32 Nitroglycerin (Ntg) 0.4 mg Q5M X 3 DOSES PRN SL Prn Chest Pain 04/11/19 02:00 05/08/19 21:29 Ondansetron HCl (Zofran) 4 mg Q6H PRN IVP Nausea & Vomiting 04/11/19 02:15 05/08/19 02:14 Promethazine HCl/ Codeine (Phenergan with Codeine) 5 ml Q6H PRN ORAL cough 04/11/19 02:15 05/08/19 02:14 Tamsulosin HCl (Flomax) 0.4 mg BEDTIME ORAL 04/11/19 21:00 05/09/19 20:59 04/13/19 21:29 Temazepam (Restoril) 15 mg HSPRN PRN ORAL Insomnia 04/11/19 02:15 04/15/19 02:14 Karen Lira WILL CALL ORDER CLERK Apr 14, 2019 11:26
[2019-04-14] MEDS ORDERED: Albuterol/Ipratropium 3ml neb HHN PRN (11:30)
[2019-04-14 11:48] VITALS: BP 115/69
--- NOTE | 2019-04-14 13:03 | Internal Med Progress Note ---
Subjective Date of Service: Apr 14, 2019 Physician Name Idris Lugo Attending Physician Jewel Giraldo MD Current Medications Medications (Trade) Dose Ordered Sig/Dejon Route PRN Reason Start Time Stop Time Status Last Admin Dose Admin Acetaminophen (Tylenol) 650 mg Q4H PRN ORAL fever 04/11/19 02:15 05/08/19 02:14 Albuterol/ Ipratropium (Albuterol/ Ipratropium) 3 ml Q4H PRN HHN Shortness of Breath 04/14/19 11:30 04/19/19 11:29 Albuterol/ Ipratropium (Albuterol/ Ipratropium) 3 ml QIDRT INH 04/14/19 15:00 04/19/19 14:59 Apixaban (Eliquis) 5 mg BID ORAL 04/11/19 09:00 05/09/19 08:59 04/14/19 09:01 Carvedilol (Coreg) 6.25 mg EVERY 12 HOURS ORAL 04/11/19 09:00 05/09/19 08:59 04/14/19 09:01 Clonidine HCl (Catapres Tab) 0.1 mg Q4H PRN ORAL sbp more than 160 04/11/19 02:15 05/08/19 02:14 Dextrose (Dextrose 50%) 25 ml Q30M PRN IV Hypoglycemia 04/11/19 02:30 05/09/19 07:29 Dextrose (Dextrose 50%) 50 ml Q30M PRN IV Hypoglycemia 04/11/19 02:30 05/09/19 07:29 Insulin Aspart (NovoLOG) BEFORE MEALS AND HS SUBQ 04/11/19 06:30 05/09/19 13:29 04/13/19 17:06 Insulin Aspart (NovoLOG) 8 units NOVOTIAC SUBQ 04/11/19 11:50 05/10/19 16:49 04/13/19 17:04 Insulin Detemir (Levemir) 10 units BEDTIME SUBQ 04/11/19 21:00 05/09/19 20:59 04/12/19 20:15 Levofloxacin 100 ml @ 100 mls/hr Q24H IVPB 04/14/19 07:00 04/21/19 06:59 04/14/19 06:32 Levothyroxine Sodium (Synthroid) 150 mcg ACBREAKFAST ORAL 04/11/19 06:30 05/09/19 06:29 04/14/19 05:32 Nitroglycerin (Ntg) 0.4 mg Q5M X 3 DOSES PRN SL Prn Chest Pain 04/11/19 02:00 05/08/19 21:29 Ondansetron HCl (Zofran) 4 mg Q6H PRN IVP Nausea & Vomiting 04/11/19 02:15 05/08/19 02:14 Prednisone (predniSONE) 60 mg Taper DAILY ORAL 04/14/19 11:30 04/20/19 11:29 04/14/19 12:11 Promethazine HCl/ Codeine (Phenergan with Codeine) 5 ml Q6H PRN ORAL cough 04/11/19 02:15 05/08/19 02:14 Tamsulosin HCl (Flomax) 0.4 mg BEDTIME ORAL 04/11/19 21:00 05/09/19 20:59 04/13/19 21:29 Temazepam (Restoril) 15 mg HSPRN PRN ORAL Insomnia 04/11/19 02:15 04/15/19 02:14 Allergies: Coded Allergies: No Known Allergies (Unverified , 10/24/16) ROS Limited/Unobtainable: Yes Subjective 73 YO M admitted with COPD exacerbation. Now respiratory failure. Cover for Int Med-DR Giraldo Objective Last Vital Signs Date Time Temp Pulse Resp B/P (MAP) Pulse Ox O2 Delivery O2 Flow Rate FiO2 04/14/19 11:48 98.2 72 18 115/69 (84) 98 04/13/19 21:00 Nasal Cannula 4.0 04/13/19 19:58 28 Laboratory Tests Test 04/14/19 06:55 White Blood Count 12.3 K/UL (4.8-10.8) H Red Blood Count 4.72 M/UL (4.70-6.10) Hemoglobin 14.0 G/DL (14.2-18.0) L Hematocrit 41.7 % (42.0-52.0) L Mean Corpuscular Volume 88 FL (80-99) Mean Corpuscular Hemoglobin 29.6 PG (27.0-31.0) Mean Corpuscular Hemoglobin Concent 33.5 G/DL (32.0-36.0) Red Cell Distribution Width 14.0 % (11.6-14.8) Platelet Count 292 K/UL (150-450) Mean Platelet Volume 7.1 FL (6.5-10.1) Neutrophils (%) (Auto) 68.2 % (45.0-75.0) Lymphocytes (%) (Auto) 22.7 % (20.0-45.0) Monocytes (%) (Auto) 6.3 % (1.0-10.0) Eosinophils (%) (Auto) 1.4 % (0.0-3.0) Basophils (%) (Auto) 1.5 % (0.0-2.0) Sodium Level 140 MMOL/L (136-145) Potassium Level 4.6 MMOL/L (3.5-5.1) Chloride Level 103 MMOL/L (98-107) Carbon Dioxide Level 32 MMOL/L (21-32) Anion Gap 5 mmol/L (5-15) Blood Urea Nitrogen 39 mg/dL (7-18) H Creatinine 1.3 MG/DL (0.55-1.30) Estimat Glomerular Filtration Rate mL/min (>60) Glucose Level 308 MG/DL (74-106) #H Calcium Level 8.8 MG/DL (8.5-10.1) Intake and Output 04/13/19 04/14/19 19:00 07:00 Intake Total 1200 ml 720 ml Output Total 1400 ml Balance 1200 ml -680 ml Intake Oral 1200 ml 720 ml Output Urine Total 1400 ml # Bowel Movements 1 Objective PHYSICAL EXAMINATION: VITAL SIGNS: On admission, temperature is 97.4, pulse is 72, respirations 22, blood pressure of 120/80. GENERAL: The patient is awake, responsive, no acute distress. HEAD AND NECK: Pupils are equal and reactive to light. Extraocular muscles intact. Neck was supple. No JVD. LUNGS: Good air entry. The patient has expiratory wheezes noted. Tachypneic. No rhonchi was noted. HEART: S1, S2. Irregular. No murmur. The patient has a pacemaker in the left-sided chest wall. ABDOMEN: Soft, nondistended, nontender. Mildly obese. EXTREMITIES: No cyanosis, clubbing, edema. NEUROLOGIC: Cranial nerves II through XII grossly normal. Motor is 5/5 in all extremities. Gait is intact. GENITOURINARY: It was noted the patient has a Montgomery catheter. RECTAL: Refused and deferred. PSYCHIATRIC: Mood and affect is intact. Assessment/Plan Assessment/Plan ASSESSMENT: 1. Acute hypoxemic respiratory failure, most likely secondary to acute COPD exacerbation. 2. Acute COPD exacerbation. 3. Pneumonia. 4. Sick sinus syndrome status post pacemaker. 5. Diabetes type 2. 6. Prostate cancer. 7. Hyperkalemia. 8. Insulin induced hyperglycemia. 9. Prostate enlargement. 10. Leukocytosis PLAN: 1. Med/Surg. 2. D/C Solu-Medrol IV Per Pulmonary consult=Dr. Obrien. 3. Endocrinology=Dr To. Monitor blood glucose level closely. 4. antibiotic=Levaquin. ID=Dr Villa 5. Code status is Full Code. DVT prophylaxis, he is on Eliquis. Idris Lugo MD Apr 14, 2019 13:03
--- NOTE | 2019-04-14 13:22 | Infectious Diseases Prog Note ---
Assessment/Plan Assessment/Plan Assessment: Acute hypoxic respiratory failure s/p bipap, now on NC COPD exacerbation CHF exacerbation -04/13 CXR: Suspected mild pulmonary vascular congestion. Correlate clinically -04/08 CXR: Mild pulmonary vascular congestion suspected Afebrile Leukocytosis, increased (on high dose steroids), now imrpoving KAYLAN, improving Hyperglycemia COPD CAD CHF prostate cancer s/p PPM former smoker Plan: -Continue Levaquin #6/7 for COPD exacerbation -04/08 SP Ceftriaxone x1, Azithromycin x1 -f/u cx -Monitor CBC/CMP, temperatures -f/u influenza sc -CBC, CMP am -f/u CXR am Thank you for this consultation. Will continue to follow along with you. Discussed with RN Subjective Allergies: Coded Allergies: No Known Allergies (Unverified , 10/24/16) Subjective afebrile wbc improving Objective Vital Signs Last 24 Hour Vital Signs Date Time Temp Pulse Resp B/P (MAP) Pulse Ox O2 Delivery O2 Flow Rate FiO2 04/14/19 11:48 98.2 72 18 115/69 (84) 98 04/14/19 09:01 70 113/71 04/14/19 08:00 98.4 70 20 113/71 (85) 98 04/14/19 04:00 97.9 76 24 101/74 (83) 92 04/14/19 00:00 74 24 103/68 (80) 92 04/13/19 21:00 Nasal Cannula 4.0 04/13/19 20:00 97.6 70 20 119/73 (88) 92 04/13/19 19:58 95 Nasal Cannula 2.0 28 04/13/19 16:00 98.6 69 20 115/99 (104) 95 Height (Feet): 6 Height (Inches): 0.00 Weight (Pounds): 195 Objective General Appearance: WD/WN Lines, tubes and drains: peripheral HEENT: normocephalic, atraumatic Neck: non-tender, normal alignment Respiratory/Chest: chest wall non-tender, rhonchi - left, rhonchi - right Cardiovascular/Chest: normal peripheral pulses Extremities: normal range of motion Laboratory Tests Test 04/14/19 06:55 White Blood Count 12.3 K/UL (4.8-10.8) H Red Blood Count 4.72 M/UL (4.70-6.10) Hemoglobin 14.0 G/DL (14.2-18.0) L Hematocrit 41.7 % (42.0-52.0) L Mean Corpuscular Volume 88 FL (80-99) Mean Corpuscular Hemoglobin 29.6 PG (27.0-31.0) Mean Corpuscular Hemoglobin Concent 33.5 G/DL (32.0-36.0) Red Cell Distribution Width 14.0 % (11.6-14.8) Platelet Count 292 K/UL (150-450) Mean Platelet Volume 7.1 FL (6.5-10.1) Neutrophils (%) (Auto) 68.2 % (45.0-75.0) Lymphocytes (%) (Auto) 22.7 % (20.0-45.0) Monocytes (%) (Auto) 6.3 % (1.0-10.0) Eosinophils (%) (Auto) 1.4 % (0.0-3.0) Basophils (%) (Auto) 1.5 % (0.0-2.0) Sodium Level 140 MMOL/L (136-145) Potassium Level 4.6 MMOL/L (3.5-5.1) Chloride Level 103 MMOL/L (98-107) Carbon Dioxide Level 32 MMOL/L (21-32) Anion Gap 5 mmol/L (5-15) Blood Urea Nitrogen 39 mg/dL (7-18) H Creatinine 1.3 MG/DL (0.55-1.30) Estimat Glomerular Filtration Rate mL/min (>60) Glucose Level 308 MG/DL (74-106) #H Calcium Level 8.8 MG/DL (8.5-10.1) Current Medications Medications (Trade) Dose Ordered Sig/Dejon Route PRN Reason Start Time Stop Time Status Last Admin Dose Admin Acetaminophen (Tylenol) 650 mg Q4H PRN ORAL fever 04/11/19 02:15 05/08/19 02:14 Albuterol/ Ipratropium (Albuterol/ Ipratropium) 3 ml Q4H PRN HHN Shortness of Breath 04/14/19 11:30 04/19/19 11:29 Albuterol/ Ipratropium (Albuterol/ Ipratropium) 3 ml QIDRT INH 04/14/19 15:00 04/19/19 14:59 Apixaban (Eliquis) 5 mg BID ORAL 04/11/19 09:00 05/09/19 08:59 04/14/19 09:01 Carvedilol (Coreg) 6.25 mg EVERY 12 HOURS ORAL 04/11/19 09:00 05/09/19 08:59 04/14/19 09:01 Clonidine HCl (Catapres Tab) 0.1 mg Q4H PRN ORAL sbp more than 160 04/11/19 02:15 05/08/19 02:14 Dextrose (Dextrose 50%) 25 ml Q30M PRN IV Hypoglycemia 04/11/19 02:30 05/09/19 07:29 Dextrose (Dextrose 50%) 50 ml Q30M PRN IV Hypoglycemia 04/11/19 02:30 05/09/19 07:29 Insulin Aspart (NovoLOG) BEFORE MEALS AND HS SUBQ 04/11/19 06:30 05/09/19 13:29 04/13/19 17:06 Insulin Aspart (NovoLOG) 8 units NOVOTIAC SUBQ 04/11/19 11:50 05/10/19 16:49 04/13/19 17:04 Insulin Detemir (Levemir) 10 units BEDTIME SUBQ 04/11/19 21:00 05/09/19 20:59 04/12/19 20:15 Levofloxacin 100 ml @ 100 mls/hr Q24H IVPB 04/14/19 07:00 04/21/19 06:59 04/14/19 06:32 Levothyroxine Sodium (Synthroid) 150 mcg ACBREAKFAST ORAL 04/11/19 06:30 05/09/19 06:29 04/14/19 05:32 Nitroglycerin (Ntg) 0.4 mg Q5M X 3 DOSES PRN SL Prn Chest Pain 04/11/19 02:00 05/08/19 21:29 Ondansetron HCl (Zofran) 4 mg Q6H PRN IVP Nausea & Vomiting 04/11/19 02:15 05/08/19 02:14 Prednisone (predniSONE) 60 mg Taper DAILY ORAL 04/14/19 11:30 04/20/19 11:29 04/14/19 12:11 Promethazine HCl/ Codeine (Phenergan with Codeine) 5 ml Q6H PRN ORAL cough 04/11/19 02:15 05/08/19 02:14 Tamsulosin HCl (Flomax) 0.4 mg BEDTIME ORAL 04/11/19 21:00 05/09/19 20:59 04/13/19 21:29 Temazepam (Restoril) 15 mg HSPRN PRN ORAL Insomnia 04/11/19 02:15 04/15/19 02:14 An Villa M.D. Apr 14, 2019 13:22
[2019-04-14] MEDS: Albuterol/Ipratropium 3ml neb INH SCH ×2 (14:33→20:00)
[2019-04-14 16:00] VITALS: BP 132/79
[2019-04-14 20:00] VITALS: BP 117/77
[2019-04-14] MEDS: Tamsulosin 0.4mg cap ORAL SCH (20:36)
[2019-04-14] MEDS: Levemir Flexpen SUBQ SCH (20:37)
[2019-04-15] VITALS (7 sets, daily range): BP systolic 109–130; BP diastolic 54–81
[2019-04-15] MEDS: NovoLOG Insulin Flexpen SUBQ SCH ×8 (01:31→21:59)
[2019-04-15] MEDS ORDERED: Nitroglycerin Subl 0.4mg tab SL PRN (03:15)
[2019-04-15] MEDS ORDERED: Albuterol/Ipratropium 3ml neb HHN PRN (03:30)
--- NOTE | 2019-04-15 06:24 | General Progress Note ---
Assessment/Plan Problem List: (1) COPD exacerbation ICD Codes: J44.1 - Chronic obstructive pulmonary disease with (acute) exacerbation SNOMED: 680981487 (2) Respiratory failure with hypoxia ICD Codes: J96.91 - Respiratory failure, unspecified with hypoxia SNOMED: 02136482813852797 (3) Diabetes mellitus ICD Codes: E11.9 - Type 2 diabetes mellitus without complications SNOMED: 77501519 (4) Pacemaker ICD Codes: Z95.0 - Presence of cardiac pacemaker SNOMED: 554976056 (5) Prostate cancer ICD Codes: C61 - Malignant neoplasm of prostate SNOMED: 696588713 (6) Hypothyroid ICD Codes: E03.9 - Hypothyroidism, unspecified SNOMED: 90943295 Assessment/Plan: glucose elevated due to non compliance with food and treatment continue Levemir 10 units qhs continue Novolog 8 units ac tid continue NISS ac / hs Subjective Allergies: Coded Allergies: No Known Allergies (Unverified , 10/24/16) Subjective events noted he is resting non cooperative refusing glucose monitoring and insulin Objective Last 24 Hour Vital Signs Date Time Temp Pulse Resp B/P (MAP) Pulse Ox O2 Delivery O2 Flow Rate FiO2 04/15/19 04:54 66 04/15/19 04:00 96.8 66 18 122/54 (76) 92 04/15/19 01:53 60 27 100 04/15/19 01:38 62 18 100 Non-Rebreather 15.0 100 60 18 99 04/15/19 00:00 97.3 86 18 124/81 (95) 99 04/14/19 21:00 Nasal Cannula 4.0 04/14/19 20:34 71 117/77 04/14/19 20:03 64 18 98 Nasal Cannula 2.0 28 61 18 93 04/14/19 20:02 93 Nasal Cannula 2.0 28 04/14/19 20:00 97.5 83 18 117/77 (90) 85 04/14/19 16:00 98.6 71 20 132/79 (96) 92 04/14/19 14:44 96 Nasal Cannula 2.0 28 04/14/19 14:34 67 18 97 Nasal Cannula 2.0 28 64 16 97 04/14/19 11:48 98.2 72 18 115/69 (84) 98 04/14/19 09:01 70 113/71 04/14/19 09:00 Nasal Cannula 4.0 04/14/19 08:00 98.4 70 20 113/71 (85) 98 Intake and Output 04/14/19 04/15/19 19:00 07:00 Intake Total 1520 ml Output Total 2700 ml 450 ml Balance -1180 ml -450 ml Intake Oral 1420 ml IV Total 100 ml Output Urine Total 2700 ml 450 ml Laboratory Tests 04/14/19 06:55: White Blood Count 12.3H, Red Blood Count 4.72, Hemoglobin 14.0L, Hematocrit 41.7L, Mean Corpuscular Volume 88, Mean Corpuscular Hemoglobin 29.6, Mean Corpuscular Hemoglobin Concent 33.5, Red Cell Distribution Width 14.0, Platelet Count 292, Mean Platelet Volume 7.1, Neutrophils (%) (Auto) 68.2, Lymphocytes (% ) (Auto) 22.7, Monocytes (%) (Auto) 6.3, Eosinophils (%) (Auto) 1.4, Basophils ( %) (Auto) 1.5, Sodium Level 140, Potassium Level 4.6, Chloride Level 103, Carbon Dioxide Level 32, Anion Gap 5, Blood Urea Nitrogen 39H, Creatinine 1.3, Estimat Glomerular Filtration Rate , Glucose Level 308#H, Calcium Level 8.8 04/15/19 01:34: Arterial Blood pH 7.371, Arterial Blood Partial Pressure CO2 39.6, Arterial Blood Partial Pressure O2 213.8H, Arterial Blood HCO3 22.4, Arterial Blood Oxygen Saturation 99.3, Arterial Blood Base Excess -2.5L, Dewayne Test Positive Height (Feet): 6 Height (Inches): 0.00 Weight (Pounds): 195 General Appearance: no apparent distress Neck: normal alignment Cardiovascular: normal rate Respiratory/Chest: lungs clear Abdomen: normal bowel sounds Pelvis: normal external exam Edema: no edema noted Arm (L), no edema noted Arm (R), no edema noted Leg (L), no edema noted Leg (R), no edema noted Pedal (L), no edema noted Pedal (R), no edema noted Generalized Objective Item Value Date Time Bedside Blood Glucose 301 mg/dl H 04/15/19 0153 Glucose Level 308 MG/DL H # 04/14/19 0655 Current Medications Medications (Trade) Dose Ordered Sig/Dejon Route PRN Reason Start Time Stop Time Status Last Admin Dose Admin Acetaminophen (Tylenol) 650 mg Q4H PRN ORAL fever 04/15/19 03:48 05/08/19 03:47 Albuterol/ Ipratropium (Albuterol/ Ipratropium) 3 ml Q4H PRN HHN Shortness of Breath 04/15/19 03:30 04/19/19 11:29 Albuterol/ Ipratropium (Albuterol/ Ipratropium) 3 ml QIDRT INH 04/15/19 07:00 04/19/19 14:59 Apixaban (Eliquis) 5 mg BID ORAL 04/15/19 09:00 05/09/19 08:59 Carvedilol (Coreg) 6.25 mg EVERY 12 HOURS ORAL 04/15/19 09:00 05/09/19 08:59 Clonidine HCl (Catapres Tab) 0.1 mg Q4H PRN ORAL sbp more than 160 04/15/19 03:49 05/08/19 03:48 Dextrose (Dextrose 50%) 25 ml Q30M PRN IV Hypoglycemia 04/15/19 03:30 05/09/19 07:29 Dextrose (Dextrose 50%) 50 ml Q30M PRN IV Hypoglycemia 04/15/19 03:30 05/09/19 07:29 Insulin Aspart (NovoLOG) BEFORE MEALS AND HS SUBQ 04/15/19 06:30 05/09/19 13:29 Insulin Aspart (NovoLOG) 8 units NOVOTIAC SUBQ 04/15/19 06:30 05/10/19 16:49 Insulin Detemir (Levemir) 10 units BEDTIME SUBQ 04/15/19 21:00 05/09/19 20:59 Levofloxacin 100 ml @ 100 mls/hr Q24H IVPB 04/15/19 07:00 04/21/19 06:59 Levothyroxine Sodium (Synthroid) 150 mcg ACBREAKFAST ORAL 04/15/19 06:30 05/09/19 06:29 Nitroglycerin (Ntg) 0.4 mg Q5M X 3 DOSES PRN SL Prn Chest Pain 04/15/19 03:15 05/08/19 21:29 Ondansetron HCl (Zofran) 4 mg Q6H PRN IVP Nausea & Vomiting 04/15/19 03:55 05/08/19 03:54 Prednisone (predniSONE) 50 mg Taper DAILY ORAL 04/15/19 09:00 04/20/19 08:59 Promethazine HCl/ Codeine (Phenergan with Codeine) 5 ml Q6H PRN ORAL cough 04/15/19 03:55 05/08/19 03:54 Tamsulosin HCl (Flomax) 0.4 mg BEDTIME ORAL 04/15/19 21:00 05/09/19 20:59 Geovanni To MD Apr 15, 2019 06:24
[2019-04-15] MEDS: Albuterol/Ipratropium 3ml neb INH SCH ×4 (07:58→19:13)
[2019-04-15] MEDS: Carvedilol 6.25mg Tab ORAL SCH ×2 (08:54→21:55)
[2019-04-15] MEDS: Eliquis 5mg tablet ORAL SCH ×2 (08:54→17:03)
[2019-04-15 09:09] LABS: HEMATOCRIT 44.1 % (42.0-52.0); HEMOGLOBIN 14.7 G/DL (14.2-18.0); MEAN CORPUSCULAR VOLUME 88 FL (80-99); PLATELET COUNT 325 K/UL (150-450); RED BLOOD COUNT 4.99 M/UL (4.70-6.10); RED CELL DISTRIBUTION WIDTH 13.6 % (11.6-14.8); WHITE BLOOD COUNT 18.3 K/UL (4.8-10.8)
[2019-04-15 09:32] LABS: ANION GAP 7 mmol/L (5-15); BLOOD UREA NITROGEN 34 mg/dL (7-18); CARBON DIOXIDE 29 MMOL/L (21-32); CHLORIDE 100 MMOL/L (98-107); CREATININE 1.1 MG/DL (0.55-1.30); POTASSIUM 4.6 MMOL/L (3.5-5.1); SODIUM 136 MMOL/L (136-145)
--- NOTE | 2019-04-15 11:32 | Infectious Diseases Prog Note ---
Assessment/Plan Assessment/Plan Assessment: Acute hypoxic respiratory failure s/p bipap, now on NC COPD exacerbation CHF exacerbation -04/13 CXR: Suspected mild pulmonary vascular congestion. Correlate clinically -04/08 CXR: Mild pulmonary vascular congestion suspected Afebrile Leukocytosis, increased (on high dose steroids) KAYLAN, improving Hyperglycemia COPD CAD CHF prostate cancer s/p PPM former smoker Plan: -Continue Levaquin #7/ for COPD exacerbation -04/08 SP Ceftriaxone x1, Azithromycin x1 -f/u cx -Monitor CBC/CMP, temperatures -aspiration precautions Thank you for this consultation. Will continue to follow along with you. Discussed with RN Subjective Allergies: Coded Allergies: No Known Allergies (Unverified , 10/24/16) Subjective afebrile wbc increased] at 4l NC Objective Vital Signs Last 24 Hour Vital Signs Date Time Temp Pulse Resp B/P (MAP) Pulse Ox O2 Delivery O2 Flow Rate FiO2 04/15/19 09:00 Nasal Cannula 4.0 04/15/19 08:54 60 130/71 04/15/19 08:05 98.1 60 20 130/71 (90) 97 04/15/19 08:01 94 Nasal Cannula 2.0 28 04/15/19 08:00 77 04/15/19 04:54 66 04/15/19 04:00 96.8 66 18 122/54 (76) 92 04/15/19 01:53 60 27 100 04/15/19 01:38 62 18 100 Non-Rebreather 15.0 100 60 18 99 04/15/19 00:00 97.3 86 18 124/81 (95) 99 04/14/19 21:00 Nasal Cannula 4.0 04/14/19 20:34 71 117/77 04/14/19 20:03 64 18 98 Nasal Cannula 2.0 28 61 18 93 04/14/19 20:02 93 Nasal Cannula 2.0 28 04/14/19 20:00 97.5 83 18 117/77 (90) 85 04/14/19 16:00 98.6 71 20 132/79 (96) 92 04/14/19 14:44 96 Nasal Cannula 2.0 28 04/14/19 14:34 67 18 97 Nasal Cannula 2.0 28 64 16 97 04/14/19 11:48 98.2 72 18 115/69 (84) 98 Height (Feet): 6 Height (Inches): 0.00 Weight (Pounds): 195 Objective General Appearance: WD/WN Lines, tubes and drains: peripheral HEENT: normocephalic, atraumatic Neck: non-tender, normal alignment Respiratory/Chest: chest wall non-tender, rhonchi - left, rhonchi - right Cardiovascular/Chest: normal peripheral pulses Extremities: normal range of motion Laboratory Tests Test 04/15/19 01:34 04/15/19 08:49 Arterial Blood pH 7.371 (7.350-7.450) Arterial Blood Partial Pressure CO2 39.6 mmHg (35.0-45.0) Arterial Blood Partial Pressure O2 213.8 mmHg (75.0-100.0) H Arterial Blood HCO3 22.4 mmol/L (22.0-26.0) Arterial Blood Oxygen Saturation 99.3 % (95-100) Arterial Blood Base Excess -2.5 (-2-2) L Dewayne Test Positive White Blood Count 18.3 K/UL (4.8-10.8) H Red Blood Count 4.99 M/UL (4.70-6.10) Hemoglobin 14.7 G/DL (14.2-18.0) Hematocrit 44.1 % (42.0-52.0) Mean Corpuscular Volume 88 FL (80-99) Mean Corpuscular Hemoglobin 29.4 PG (27.0-31.0) Mean Corpuscular Hemoglobin Concent 33.3 G/DL (32.0-36.0) Red Cell Distribution Width 13.6 % (11.6-14.8) Platelet Count 325 K/UL (150-450) Mean Platelet Volume 6.8 FL (6.5-10.1) Neutrophils (%) (Auto) % (45.0-75.0) Lymphocytes (%) (Auto) % (20.0-45.0) Monocytes (%) (Auto) % (1.0-10.0) Eosinophils (%) (Auto) % (0.0-3.0) Basophils (%) (Auto) % (0.0-2.0) Differential Total Cells Counted 100 Neutrophils % (Manual) 78 % (45-75) H Lymphocytes % (Manual) 14 % (20-45) L Monocytes % (Manual) 6 % (1-10) Eosinophils % (Manual) 1 % (0-3) Basophils % (Manual) 1 % (0-2) Band Neutrophils 0 % (0-8) Platelet Estimate Adequate Platelet Morphology Normal Red Blood Cell Morphology Normal Sodium Level 136 MMOL/L (136-145) Potassium Level 4.6 MMOL/L (3.5-5.1) Chloride Level 100 MMOL/L (98-107) Carbon Dioxide Level 29 MMOL/L (21-32) Anion Gap 7 mmol/L (5-15) Blood Urea Nitrogen 34 mg/dL (7-18) H Creatinine 1.1 MG/DL (0.55-1.30) Estimat Glomerular Filtration Rate mL/min (>60) Glucose Level 199 MG/DL (74-106) #H Calcium Level 9.0 MG/DL (8.5-10.1) Current Medications Medications (Trade) Dose Ordered Sig/Dejon Route PRN Reason Start Time Stop Time Status Last Admin Dose Admin Acetaminophen (Tylenol) 650 mg Q4H PRN ORAL fever 04/15/19 03:48 05/08/19 03:47 Albuterol/ Ipratropium (Albuterol/ Ipratropium) 3 ml Q4H PRN HHN Shortness of Breath 04/15/19 03:30 04/19/19 11:29 Albuterol/ Ipratropium (Albuterol/ Ipratropium) 3 ml QIDRT INH 04/15/19 07:00 04/19/19 14:59 04/15/19 11:23 Apixaban (Eliquis) 5 mg BID ORAL 04/15/19 09:00 05/09/19 08:59 04/15/19 08:54 Carvedilol (Coreg) 6.25 mg EVERY 12 HOURS ORAL 04/15/19 09:00 05/09/19 08:59 04/15/19 08:54 Clonidine HCl (Catapres Tab) 0.1 mg Q4H PRN ORAL sbp more than 160 04/15/19 03:49 05/08/19 03:48 Dextrose (Dextrose 50%) 25 ml Q30M PRN IV Hypoglycemia 04/15/19 03:30 05/09/19 07:29 Dextrose (Dextrose 50%) 50 ml Q30M PRN IV Hypoglycemia 04/15/19 03:30 05/09/19 07:29 Insulin Aspart (NovoLOG) BEFORE MEALS AND HS SUBQ 04/15/19 06:30 05/09/19 13:29 04/15/19 06:34 Insulin Aspart (NovoLOG) 8 units NOVOTIAC SUBQ 04/15/19 06:30 05/10/19 16:49 04/15/19 06:34 Insulin Detemir (Levemir) 10 units BEDTIME SUBQ 04/15/19 21:00 05/09/19 20:59 Levofloxacin 100 ml @ 100 mls/hr Q24H IVPB 04/15/19 07:00 04/21/19 06:59 04/15/19 06:44 Levothyroxine Sodium (Synthroid) 150 mcg ACBREAKFAST ORAL 04/15/19 06:30 05/09/19 06:29 04/15/19 06:44 Nitroglycerin (Ntg) 0.4 mg Q5M X 3 DOSES PRN SL Prn Chest Pain 04/15/19 03:15 05/08/19 21:29 Ondansetron HCl (Zofran) 4 mg Q6H PRN IVP Nausea & Vomiting 04/15/19 03:55 05/08/19 03:54 Prednisone (predniSONE) 50 mg Taper DAILY ORAL 04/15/19 09:00 04/20/19 08:59 04/15/19 09:01 Promethazine HCl/ Codeine (Phenergan with Codeine) 5 ml Q6H PRN ORAL cough 04/15/19 03:55 05/08/19 03:54 Tamsulosin HCl (Flomax) 0.4 mg BEDTIME ORAL 04/15/19 21:00 05/09/19 20:59 An Villa M.D. Apr 15, 2019 11:32
--- NOTE | 2019-04-15 12:43 | Pulmonology Progress Note ---
Assessment/Plan Problems: (1) Respiratory failure with hypoxia (2) COPD exacerbation (3) Pneumonia (4) Pacemaker (5) Diabetes mellitus (6) Prostate cancer Assessment/Plan still short of breath coughing phlegm CXR no [id number] sliding scale diabetic diet taper down steroids Subjective ROS Limited/Unobtainable: No Interval Events: episode of agitatin last night Allergies: Coded Allergies: No Known Allergies (Unverified , 10/24/16) Objective Last 24 Hour Vital Signs Date Time Temp Pulse Resp B/P (MAP) Pulse Ox O2 Delivery O2 Flow Rate FiO2 04/15/19 12:00 96.9 80 20 120/61 (80) 100 04/15/19 09:00 Nasal Cannula 4.0 04/15/19 08:54 60 130/71 04/15/19 08:05 98.1 60 20 130/71 (90) 97 04/15/19 08:01 94 Nasal Cannula 2.0 28 04/15/19 08:00 77 04/15/19 04:54 66 04/15/19 04:00 96.8 66 18 122/54 (76) 92 04/15/19 01:53 60 27 100 04/15/19 01:38 62 18 100 Non-Rebreather 15.0 100 60 18 99 04/15/19 00:00 97.3 86 18 124/81 (95) 99 04/14/19 21:00 Nasal Cannula 4.0 04/14/19 20:34 71 117/77 04/14/19 20:03 64 18 98 Nasal Cannula 2.0 28 61 18 93 04/14/19 20:02 93 Nasal Cannula 2.0 28 04/14/19 20:00 97.5 83 18 117/77 (90) 85 04/14/19 16:00 98.6 71 20 132/79 (96) 92 04/14/19 14:44 96 Nasal Cannula 2.0 28 04/14/19 14:34 67 18 97 Nasal Cannula 2.0 28 64 16 97 Intake and Output 04/14/19 04/15/19 19:00 07:00 Intake Total 1520 ml 140 ml Output Total 2700 ml 450 ml Balance -1180 ml -310 ml Intake Oral 1420 ml 140 ml IV Total 100 ml Output Urine Total 2700 ml 450 ml General Appearance: WD/WN HEENT: normocephalic, atraumatic Respiratory/Chest: chest wall non-tender, crackles/rales Cardiovascular: normal peripheral pulses, normal rate Abdomen: normal bowel sounds, soft, non tender Genitourinary: normal external genitalia Extremities: no cyanosis Skin: no rash 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 Lymphatic: no neck adenopathy Laboratory Tests 04/15/19 01:34: Arterial Blood pH 7.371, Arterial Blood Partial Pressure CO2 39.6, Arterial Blood Partial Pressure O2 213.8H, Arterial Blood HCO3 22.4, Arterial Blood Oxygen Saturation 99.3, Arterial Blood Base Excess -2.5L, Dewayne Test Positive 04/15/19 08:49: White Blood Count 18.3H, Red Blood Count 4.99, Hemoglobin 14.7, Hematocrit 44.1 , Mean Corpuscular Volume 88, Mean Corpuscular Hemoglobin 29.4, Mean Corpuscular Hemoglobin Concent 33.3, Red Cell Distribution Width 13.6, Platelet Count 325, Mean Platelet Volume 6.8, Neutrophils (%) (Auto) , Lymphocytes (%) ( Auto) , Monocytes (%) (Auto) , Eosinophils (%) (Auto) , Basophils (%) (Auto) , Differential Total Cells Counted 100, Neutrophils % (Manual) 78H, Lymphocytes % (Manual) 14L, Monocytes % (Manual) 6, Eosinophils % (Manual) 1, Basophils % ( Manual) 1, Band Neutrophils 0, Platelet Estimate Adequate, Platelet Morphology Normal, Red Blood Cell Morphology Normal, Sodium Level 136, Potassium Level 4.6 , Chloride Level 100, Carbon Dioxide Level 29, Anion Gap 7, Blood Urea Nitrogen 34H, Creatinine 1.1, Estimat Glomerular Filtration Rate , Glucose Level 199#H, Calcium Level 9.0 Current Medications Medications (Trade) Dose Ordered Sig/Dejon Route PRN Reason Start Time Stop Time Status Last Admin Dose Admin Acetaminophen (Tylenol) 650 mg Q4H PRN ORAL fever 04/15/19 03:48 05/08/19 03:47 Albuterol/ Ipratropium (Albuterol/ Ipratropium) 3 ml Q4H PRN HHN Shortness of Breath 04/15/19 03:30 04/19/19 11:29 Albuterol/ Ipratropium (Albuterol/ Ipratropium) 3 ml QIDRT INH 04/15/19 07:00 04/19/19 14:59 04/15/19 11:23 Apixaban (Eliquis) 5 mg BID ORAL 04/15/19 09:00 05/09/19 08:59 04/15/19 08:54 Carvedilol (Coreg) 6.25 mg EVERY 12 HOURS ORAL 04/15/19 09:00 05/09/19 08:59 04/15/19 08:54 Clonidine HCl (Catapres Tab) 0.1 mg Q4H PRN ORAL sbp more than 160 04/15/19 03:49 05/08/19 03:48 Dextrose (Dextrose 50%) 25 ml Q30M PRN IV Hypoglycemia 04/15/19 03:30 05/09/19 07:29 Dextrose (Dextrose 50%) 50 ml Q30M PRN IV Hypoglycemia 04/15/19 03:30 05/09/19 07:29 Insulin Aspart (NovoLOG) BEFORE MEALS AND HS SUBQ 04/15/19 06:30 05/09/19 13:29 04/15/19 11:58 Insulin Aspart (NovoLOG) 8 units NOVOTIAC SUBQ 04/15/19 06:30 05/10/19 16:49 04/15/19 11:59 Insulin Detemir (Levemir) 10 units BEDTIME SUBQ 04/15/19 21:00 05/09/19 20:59 Levothyroxine Sodium (Synthroid) 150 mcg ACBREAKFAST ORAL 04/15/19 06:30 05/09/19 06:29 04/15/19 06:44 Nitroglycerin (Ntg) 0.4 mg Q5M X 3 DOSES PRN SL Prn Chest Pain 04/15/19 03:15 05/08/19 21:29 Ondansetron HCl (Zofran) 4 mg Q6H PRN IVP Nausea & Vomiting 04/15/19 03:55 05/08/19 03:54 Prednisone (predniSONE) 50 mg Taper DAILY ORAL 04/15/19 09:00 04/20/19 08:59 04/15/19 09:01 Promethazine HCl/ Codeine (Phenergan with Codeine) 5 ml Q6H PRN ORAL cough 04/15/19 03:55 05/08/19 03:54 Tamsulosin HCl (Flomax) 0.4 mg BEDTIME ORAL 04/15/19 21:00 05/09/19 20:59 Goldie Obrien MD Apr 15, 2019 12:43
--- NOTE | 2019-04-15 13:53 | Diagnostic Imaging Report ---
Indication: Dyspnea Comparison: 04/13/2019 A single view chest radiograph was obtained. Findings: Left hemidiaphragm is slightly elevated. Pulmonary vascularity is mildly prominent. No infiltrate identified. Left-sided pacemaker again noted. Heart is enlarged. IMPRESSION: Suspected mild pulmonary vascular congestion. No change
--- NOTE | 2019-04-15 16:31 | Internal Med Progress Note ---
Subjective Date of Service: Apr 15, 2019 Physician Name Idris Lugo Attending Physician Jewel Giraldo MD Current Medications Medications (Trade) Dose Ordered Sig/Dejon Route PRN Reason Start Time Stop Time Status Last Admin Dose Admin Acetaminophen (Tylenol) 650 mg Q4H PRN ORAL fever 04/15/19 03:48 05/08/19 03:47 Albuterol/ Ipratropium (Albuterol/ Ipratropium) 3 ml Q4H PRN HHN Shortness of Breath 04/15/19 03:30 04/19/19 11:29 Albuterol/ Ipratropium (Albuterol/ Ipratropium) 3 ml QIDRT INH 04/15/19 07:00 04/19/19 14:59 04/15/19 16:25 Apixaban (Eliquis) 5 mg BID ORAL 04/15/19 09:00 05/09/19 08:59 04/15/19 08:54 Carvedilol (Coreg) 6.25 mg EVERY 12 HOURS ORAL 04/15/19 09:00 05/09/19 08:59 04/15/19 08:54 Clonidine HCl (Catapres Tab) 0.1 mg Q4H PRN ORAL sbp more than 160 04/15/19 03:49 05/08/19 03:48 Dextrose (Dextrose 50%) 25 ml Q30M PRN IV Hypoglycemia 04/15/19 03:30 05/09/19 07:29 Dextrose (Dextrose 50%) 50 ml Q30M PRN IV Hypoglycemia 04/15/19 03:30 05/09/19 07:29 Insulin Aspart (NovoLOG) BEFORE MEALS AND HS SUBQ 04/15/19 06:30 05/09/19 13:29 04/15/19 11:58 Insulin Aspart (NovoLOG) 8 units NOVOTIAC SUBQ 04/15/19 06:30 05/10/19 16:49 04/15/19 11:59 Insulin Detemir (Levemir) 10 units BEDTIME SUBQ 04/15/19 21:00 05/09/19 20:59 Levothyroxine Sodium (Synthroid) 150 mcg ACBREAKFAST ORAL 04/15/19 06:30 05/09/19 06:29 04/15/19 06:44 Nitroglycerin (Ntg) 0.4 mg Q5M X 3 DOSES PRN SL Prn Chest Pain 04/15/19 03:15 05/08/19 21:29 Ondansetron HCl (Zofran) 4 mg Q6H PRN IVP Nausea & Vomiting 04/15/19 03:55 05/08/19 03:54 Promethazine HCl/ Codeine (Phenergan with Codeine) 5 ml Q6H PRN ORAL cough 04/15/19 03:55 05/08/19 03:54 Tamsulosin HCl (Flomax) 0.4 mg BEDTIME ORAL 04/15/19 21:00 05/09/19 20:59 Allergies: Coded Allergies: No Known Allergies (Unverified , 10/24/16) ROS Limited/Unobtainable: No Constitutional: Reports: no symptoms HEENT: Reports: no symptoms Cardiovascular: Reports: no symptoms Respiratory: Reports: shortness of breath Gastrointestinal/Abdominal: Reports: no symptoms Genitourinary: Reports: no symptoms Neurologic/Psychiatric: Reports: no symptoms Subjective 73 YO M admitted with COPD exacerbation. Now respiratory failure. Cover for Int Med-DR Giraldo. Transferred to [facility] for shortness of breath-see rapid response note. Objective Last Vital Signs Date Time Temp Pulse Resp B/P (MAP) Pulse Ox O2 Delivery O2 Flow Rate FiO2 04/15/19 12:00 64 04/15/19 12:00 96.9 20 120/61 (80) 100 04/15/19 11:33 Non-Rebreather 15.0 100 Laboratory Tests Test 04/15/19 01:34 04/15/19 08:49 Arterial Blood pH 7.371 (7.350-7.450) Arterial Blood Partial Pressure CO2 39.6 mmHg (35.0-45.0) Arterial Blood Partial Pressure O2 213.8 mmHg (75.0-100.0) H Arterial Blood HCO3 22.4 mmol/L (22.0-26.0) Arterial Blood Oxygen Saturation 99.3 % (95-100) Arterial Blood Base Excess -2.5 (-2-2) L Dewayne Test Positive White Blood Count 18.3 K/UL (4.8-10.8) H Red Blood Count 4.99 M/UL (4.70-6.10) Hemoglobin 14.7 G/DL (14.2-18.0) Hematocrit 44.1 % (42.0-52.0) Mean Corpuscular Volume 88 FL (80-99) Mean Corpuscular Hemoglobin 29.4 PG (27.0-31.0) Mean Corpuscular Hemoglobin Concent 33.3 G/DL (32.0-36.0) Red Cell Distribution Width 13.6 % (11.6-14.8) Platelet Count 325 K/UL (150-450) Mean Platelet Volume 6.8 FL (6.5-10.1) Neutrophils (%) (Auto) % (45.0-75.0) Lymphocytes (%) (Auto) % (20.0-45.0) Monocytes (%) (Auto) % (1.0-10.0) Eosinophils (%) (Auto) % (0.0-3.0) Basophils (%) (Auto) % (0.0-2.0) Differential Total Cells Counted 100 Neutrophils % (Manual) 78 % (45-75) H Lymphocytes % (Manual) 14 % (20-45) L Monocytes % (Manual) 6 % (1-10) Eosinophils % (Manual) 1 % (0-3) Basophils % (Manual) 1 % (0-2) Band Neutrophils 0 % (0-8) Platelet Estimate Adequate Platelet Morphology Normal Red Blood Cell Morphology Normal Sodium Level 136 MMOL/L (136-145) Potassium Level 4.6 MMOL/L (3.5-5.1) Chloride Level 100 MMOL/L (98-107) Carbon Dioxide Level 29 MMOL/L (21-32) Anion Gap 7 mmol/L (5-15) Blood Urea Nitrogen 34 mg/dL (7-18) H Creatinine 1.1 MG/DL (0.55-1.30) Estimat Glomerular Filtration Rate mL/min (>60) Glucose Level 199 MG/DL (74-106) #H Calcium Level 9.0 MG/DL (8.5-10.1) Intake and Output 04/14/19 04/15/19 19:00 07:00 Intake Total 1520 ml 140 ml Output Total 2700 ml 450 ml Balance -1180 ml -310 ml Intake Oral 1420 ml 140 ml IV Total 100 ml Output Urine Total 2700 ml 450 ml Objective PHYSICAL EXAMINATION: GENERAL: The patient is awake, responsive, no acute distress. HEAD AND NECK: Pupils are equal and reactive to light. Extraocular muscles intact. Neck was supple. No JVD. LUNGS: Non rebreather mask;The patient has expiratory wheezes noted. Tachypneic. No rhonchi was noted. HEART: S1, S2. Irregular. No murmur. The patient has a pacemaker in the left-sided chest wall. ABDOMEN: Soft, nondistended, nontender. Mildly obese. EXTREMITIES: No cyanosis, clubbing, edema. NEUROLOGIC: Cranial nerves II through XII grossly normal. Motor is 5/5 in all extremities. Gait is intact. GENITOURINARY: It was noted the patient has a Montgomery catheter. RECTAL: Refused and deferred. PSYCHIATRIC: Mood and affect is intact. Assessment/Plan Assessment/Plan ASSESSMENT: 1. Acute hypoxemic respiratory failure, most likely secondary to acute COPD exacerbation. 2. Acute COPD exacerbation. 3. Pneumonia. 4. Sick sinus syndrome status post pacemaker. 5. Diabetes type 2. 6. Prostate cancer. 7. Hyperkalemia. 8. Insulin induced hyperglycemia. 9. Prostate enlargement. 10. Leukocytosis PLAN: 1. Med/Surg. 2. D/C Solu-Medrol IV Per Pulmonary consult=Dr. Obrien. 3. Endocrinology=Dr To. Monitor blood glucose level closely. 4. antibiotic=Levaquin. ID=Dr Villa 5. Code status is Full Code. DVT prophylaxis, he is on Eliquis. Idris Lugo MD Apr 15, 2019 16:30
--- NOTE | 2019-04-15 19:21 | Cardiology Progress Note ---
Assessment/Plan Assessment/Plan [id number] Objective Last 24 Hour Vital Signs Date Time Temp Pulse Resp B/P (MAP) Pulse Ox O2 Delivery O2 Flow Rate FiO2 04/15/19 19:15 89 Nasal Cannula 2.0 28 04/15/19 16:35 62 18 100 Nasal Cannula 3.0 32 64 18 98 04/15/19 16:00 66 04/15/19 16:00 97.6 60 18 120/72 (88) 90 04/15/19 12:00 64 04/15/19 12:00 96.9 80 20 120/61 (80) 100 04/15/19 11:33 60 20 100 Nasal Cannula 3.0 32 58 20 97 04/15/19 09:00 Nasal Cannula 4.0 04/15/19 08:54 60 130/71 04/15/19 08:05 98.1 60 20 130/71 (90) 97 04/15/19 08:01 94 Nasal Cannula 2.0 28 04/15/19 08:00 77 04/15/19 04:54 66 04/15/19 04:00 96.8 66 18 122/54 (76) 92 04/15/19 01:53 60 27 100 04/15/19 01:38 62 18 100 Non-Rebreather 15.0 100 60 18 99 04/15/19 00:00 97.3 86 18 124/81 (95) 99 04/14/19 21:00 Nasal Cannula 4.0 04/14/19 20:34 71 117/77 04/14/19 20:03 64 18 98 Nasal Cannula 2.0 28 61 18 93 04/14/19 20:02 93 Nasal Cannula 2.0 28 04/14/19 20:00 97.5 83 18 117/77 (90) 85 Intake and Output 04/14/19 04/15/19 19:00 07:00 Intake Total 1520 ml 140 ml Output Total 2700 ml 450 ml Balance -1180 ml -310 ml Intake Oral 1420 ml 140 ml IV Total 100 ml Output Urine Total 2700 ml 450 ml Laboratory Tests Test 04/15/19 01:34 04/15/19 08:49 Arterial Blood pH 7.371 (7.350-7.450) Arterial Blood Partial Pressure CO2 39.6 mmHg (35.0-45.0) Arterial Blood Partial Pressure O2 213.8 mmHg (75.0-100.0) H Arterial Blood HCO3 22.4 mmol/L (22.0-26.0) Arterial Blood Oxygen Saturation 99.3 % (95-100) Arterial Blood Base Excess -2.5 (-2-2) L Dewayne Test Positive White Blood Count 18.3 K/UL (4.8-10.8) H Red Blood Count 4.99 M/UL (4.70-6.10) Hemoglobin 14.7 G/DL (14.2-18.0) Hematocrit 44.1 % (42.0-52.0) Mean Corpuscular Volume 88 FL (80-99) Mean Corpuscular Hemoglobin 29.4 PG (27.0-31.0) Mean Corpuscular Hemoglobin Concent 33.3 G/DL (32.0-36.0) Red Cell Distribution Width 13.6 % (11.6-14.8) Platelet Count 325 K/UL (150-450) Mean Platelet Volume 6.8 FL (6.5-10.1) Neutrophils (%) (Auto) % (45.0-75.0) Lymphocytes (%) (Auto) % (20.0-45.0) Monocytes (%) (Auto) % (1.0-10.0) Eosinophils (%) (Auto) % (0.0-3.0) Basophils (%) (Auto) % (0.0-2.0) Differential Total Cells Counted 100 Neutrophils % (Manual) 78 % (45-75) H Lymphocytes % (Manual) 14 % (20-45) L Monocytes % (Manual) 6 % (1-10) Eosinophils % (Manual) 1 % (0-3) Basophils % (Manual) 1 % (0-2) Band Neutrophils 0 % (0-8) Platelet Estimate Adequate Platelet Morphology Normal Red Blood Cell Morphology Normal Sodium Level 136 MMOL/L (136-145) Potassium Level 4.6 MMOL/L (3.5-5.1) Chloride Level 100 MMOL/L (98-107) Carbon Dioxide Level 29 MMOL/L (21-32) Anion Gap 7 mmol/L (5-15) Blood Urea Nitrogen 34 mg/dL (7-18) H Creatinine 1.1 MG/DL (0.55-1.30) Estimat Glomerular Filtration Rate mL/min (>60) Glucose Level 199 MG/DL (74-106) #H Calcium Level 9.0 MG/DL (8.5-10.1) Chemo Esquivel MD Apr 15, 2019 19:21
[2019-04-15] MEDS ORDERED: Levemir Flexpen SUBQ SCH (21:00)
[2019-04-15] MEDS: Tamsulosin 0.4mg cap ORAL SCH (21:55)
--- NOTE | 2019-04-16 04:30 | Consultation ---
DATE OF CONSULTATION: 04/15/2019 CARDIOLOGY CONSULTATION CONSULTING PHYSICIAN: Chemo Esquivel M.D. REFERRING PHYSICIAN: Jewel Giraldo M.D. REASON FOR REFERRAL: Bradycardia, pacemaker. HISTORY OF PRESENT ILLNESS: This is an elderly gentleman, who has been admitted to the hospital because of COPD exacerbation. The patient has had a history of permanent pacemaker implantation for what he tells me is bradycardic episodes, who has been admitted to the hospital here at [facility] because of COPD exacerbation. Recently, he was hospitalized and discharged from [facility]. Records from [facility] were reviewed. The patient has had shortness of breath on exertion and at rest, uses one pillow. There is no PND. He does have shortness of breath in the middle of the night as well. He has occasional dizziness on standing. No heart pounding or palpitations. Recently, he was discharged from [facility]. He was presyncopal, was noted to have low oxygenation, was told that it was related to him not using his oxygen. PAST MEDICAL HISTORY: Positive for history of thyroid cancer status post thyroidectomy, prostate cancer status post intermittent ADT with Lupron injections, has had indwelling Montgomery catheter for seven years. He has COPD, status [facility], urinary tract infection, reported history of congestive heart failure, chronic atrial flutter, hypoxemia, COPD with exacerbations, leukocytosis, hyperglycemia, syncope secondary to hypoxemia related to COPD, hypothyroidism status post thyroidectomy, atrial flutter on anticoagulation with Eliquis and Coreg. ALLERGIES: He denies any allergies to medications. SOCIAL HISTORY: He used to smoke, drink, and use drugs. He quit alcohol and drugs approximately in 2004, he states. He does smoke a pack of cigarettes lasting may be a couple of days or so, he says. REVIEW OF SYSTEMS: GASTROINTESTINAL: He has had history of nausea. No vomiting or diarrhea. No bloody or black stool. GENITOURINARY: He has Montgomery catheter. PULMONARY: Positive coughing, wheezing, and shortness of breath. CONSTITUTIONAL: Denies fever, chills, or night sweats. NEUROLOGIC: Negative. PHYSICAL EXAMINATION: GENERAL: Shows to be elderly gentleman, in no respiratory distress, lying down approximately 10 degrees head of bed elevation. NECK: Supple. No jugular venous distention. LUNGS: Decreased breath sounds are noted bilaterally. Minimal expiratory wheezes are noted. CARDIAC: Distant heart sounds. regular rate and rhythm. ABDOMEN: Soft, somewhat distended. EXTREMITIES: There is no clubbing, cyanosis, or edema. NEUROLOGIC: He is awake and responsive. LABORATORY AND DIAGNOSTIC DATA: White count 18.2, hemoglobin 14.7, and platelet count of 225. A pH is 7.37, pCO2 of 39, pO2 of 213, bicarb of 22. Sodium 136, potassium 4.6, chloride 100, bicarb 29, BUN 34, creatinine 1.1, glucose of 199. A1c was last checked 8.6 on 04/09/2019. Albumin is 2.9. His last cardiac enzymes on 04/08/2019 was 0.09. His chest x-ray most recent report today was interpreted as mild pulmonary vascular congestion, left hemidiaphragm is slightly elevated, pulmonary vasculature is prominent, left-sided pacemaker noted, heart is enlarged. Preliminary echo report available in the chart indicates technically difficult study. M-mode measurements not available. LV function was felt to be normal to the extent visualized. Telemetry data shows what appears to be atrial fibrillation or junctional rhythm, intermittent pacing, intermittent sinus rhythm. Electrocardiogram shows wide QRS complexes secondary to ventricular pacing coexistent with normal conduction and intermittent sinus rhythm. ASSESSMENT AND PLAN: 1. COPD with exacerbation. 2. History of hypothyroidism, status post thyroidectomy for thyroid cancer. 3. History of prostate cancer, indwelling Montgomery catheter. 4. History of recurrent urinary tract infections. This patient was seen in cardiac consultation. The patient's EKG abnormalities related to pacing. The telemetry data was reviewed. There was no evidence of bradycardia. Pacemaker appears to be functioning adequately at least based on available strips and EKGs. He does have COPD for which he has been treated. He has sometimes a sensation of in his abdomen, this sensation lasts 3 to 4 days at a time but recurrent.. A set of cardiac enzymes will be ordered. His echocardiogram as mentioned is technically difficult shows at least normal left ventricular systolic function. I doubt any evidence of coronary syndrome. The patient however will be followed based on results of the above cardiac enzymes. Consider pacer interrogation if not done previously. Chemo Esquivel M.D. DR: Clinton JOB#: [id number] CC:
--- NOTE | 2019-04-16 06:11 | General Progress Note ---
Assessment/Plan Problem List: (1) COPD exacerbation ICD Codes: J44.1 - Chronic obstructive pulmonary disease with (acute) exacerbation SNOMED: 827422690 (2) Respiratory failure with hypoxia ICD Codes: J96.91 - Respiratory failure, unspecified with hypoxia SNOMED: 03393700621078687 (3) Diabetes mellitus ICD Codes: E11.9 - Type 2 diabetes mellitus without complications SNOMED: 69774655 (4) Pacemaker ICD Codes: Z95.0 - Presence of cardiac pacemaker SNOMED: 542101225 (5) Prostate cancer ICD Codes: C61 - Malignant neoplasm of prostate SNOMED: 703870358 (6) Hypothyroid ICD Codes: E03.9 - Hypothyroidism, unspecified SNOMED: 05629461 Assessment/Plan: increase Levemir to 16 units qhs increase Novolog to 10 units ac tid continue NISS ac / hs Subjective Allergies: Coded Allergies: No Known Allergies (Unverified , 10/24/16) Subjective events noted he received scheduled insulin Item Value Date Time Bedside Blood Glucose 243 mg/dl H 04/15/19 2200 Bedside Blood Glucose 417 mg/dl H 04/15/19 1702 Bedside Blood Glucose 282 mg/dl H 04/15/19 1159 Bedside Blood Glucose 206 mg/dl H 04/15/19 0634 Bedside Blood Glucose 301 mg/dl H 04/15/19 0153 Objective Last 24 Hour Vital Signs Date Time Temp Pulse Resp B/P (MAP) Pulse Ox O2 Delivery O2 Flow Rate FiO2 04/16/19 05:42 97.5 04/16/19 04:00 72 04/16/19 00:00 77 04/15/19 21:55 81 109/66 04/15/19 21:00 Nasal Cannula 4.0 04/15/19 20:00 97.5 81 16 109/66 (80) 90 04/15/19 20:00 79 04/15/19 19:15 89 Nasal Cannula 2.0 28 04/15/19 16:35 62 18 100 Nasal Cannula 3.0 32 64 18 98 04/15/19 16:00 66 04/15/19 16:00 97.6 60 18 120/72 (88) 90 04/15/19 12:00 64 04/15/19 12:00 96.9 80 20 120/61 (80) 100 04/15/19 11:33 60 20 100 Nasal Cannula 3.0 32 58 20 97 04/15/19 09:00 Nasal Cannula 4.0 04/15/19 08:54 60 130/71 04/15/19 08:05 98.1 60 20 130/71 (90) 97 04/15/19 08:01 94 Nasal Cannula 2.0 28 04/15/19 08:00 77 Intake and Output 04/15/19 04/16/19 19:00 07:00 Intake Total 280 ml Output Total 1500 ml 2000 ml Balance -1220 ml -2000 ml Intake Oral 280 ml Output Urine Total 1500 ml 2000 ml # Voids 3 Laboratory Tests 04/15/19 08:49: White Blood Count 18.3H, Red Blood Count 4.99, Hemoglobin 14.7, Hematocrit 44.1 , Mean Corpuscular Volume 88, Mean Corpuscular Hemoglobin 29.4, Mean Corpuscular Hemoglobin Concent 33.3, Red Cell Distribution Width 13.6, Platelet Count 325, Mean Platelet Volume 6.8, Neutrophils (%) (Auto) , Lymphocytes (%) ( Auto) , Monocytes (%) (Auto) , Eosinophils (%) (Auto) , Basophils (%) (Auto) , Differential Total Cells Counted 100, Neutrophils % (Manual) 78H, Lymphocytes % (Manual) 14L, Monocytes % (Manual) 6, Eosinophils % (Manual) 1, Basophils % ( Manual) 1, Band Neutrophils 0, Platelet Estimate Adequate, Platelet Morphology Normal, Red Blood Cell Morphology Normal, Sodium Level 136, Potassium Level 4.6 , Chloride Level 100, Carbon Dioxide Level 29, Anion Gap 7, Blood Urea Nitrogen 34H, Creatinine 1.1, Estimat Glomerular Filtration Rate , Glucose Level 199#H, Calcium Level 9.0 Height (Feet): 6 Height (Inches): 0.00 Weight (Pounds): 195 General Appearance: no apparent distress Neck: normal alignment Cardiovascular: normal rate Respiratory/Chest: decreased breath sounds Abdomen: normal bowel sounds Pelvis: normal external exam Objective Current Medications Medications (Trade) Dose Ordered Sig/Dejon Route PRN Reason Start Time Stop Time Status Last Admin Dose Admin Acetaminophen (Tylenol) 650 mg Q4H PRN ORAL fever 04/15/19 03:48 05/08/19 03:47 04/16/19 05:12 Albuterol/ Ipratropium (Albuterol/ Ipratropium) 3 ml Q4H PRN HHN Shortness of Breath 04/15/19 03:30 04/19/19 11:29 Albuterol/ Ipratropium (Albuterol/ Ipratropium) 3 ml QIDRT INH 04/15/19 07:00 04/19/19 14:59 04/15/19 19:13 Apixaban (Eliquis) 5 mg BID ORAL 04/15/19 09:00 05/09/19 08:59 04/15/19 17:03 Carvedilol (Coreg) 6.25 mg EVERY 12 HOURS ORAL 04/15/19 09:00 05/09/19 08:59 04/15/19 21:55 Clonidine HCl (Catapres Tab) 0.1 mg Q4H PRN ORAL sbp more than 160 04/15/19 03:49 05/08/19 03:48 Dextrose (Dextrose 50%) 25 ml Q30M PRN IV Hypoglycemia 04/15/19 03:30 05/09/19 07:29 Dextrose (Dextrose 50%) 50 ml Q30M PRN IV Hypoglycemia 04/15/19 03:30 05/09/19 07:29 Insulin Aspart (NovoLOG) BEFORE MEALS AND HS SUBQ 04/15/19 06:30 05/09/19 13:29 04/15/19 21:59 Insulin Aspart (NovoLOG) 8 units NOVOTIAC SUBQ 04/15/19 06:30 05/10/19 16:49 04/15/19 17:02 Insulin Detemir (Levemir) 10 units BEDTIME SUBQ 04/15/19 21:00 05/09/19 20:59 04/15/19 22:00 Levothyroxine Sodium (Synthroid) 150 mcg ACBREAKFAST ORAL 04/15/19 06:30 05/09/19 06:29 04/15/19 06:44 Nitroglycerin (Ntg) 0.4 mg Q5M X 3 DOSES PRN SL Prn Chest Pain 04/15/19 03:15 05/08/19 21:29 Ondansetron HCl (Zofran) 4 mg Q6H PRN IVP Nausea & Vomiting 04/15/19 03:55 05/08/19 03:54 Promethazine HCl/ Codeine (Phenergan with Codeine) 5 ml Q6H PRN ORAL cough 04/15/19 03:55 05/08/19 03:54 Tamsulosin HCl (Flomax) 0.4 mg BEDTIME ORAL 04/15/19 21:00 05/09/19 20:59 04/15/19 21:55 Geovanni To MD Apr 16, 2019 06:11
[2019-04-16] MEDS: NovoLOG Insulin Flexpen SUBQ SCH ×7 (06:30→21:59)
[2019-04-16] MEDS: Albuterol/Ipratropium 3ml neb INH SCH ×4 (07:40→20:47)
[2019-04-16] MEDS: Eliquis 5mg tablet ORAL SCH ×2 (09:23→17:19)
[2019-04-16] MEDS: Carvedilol 6.25mg Tab ORAL SCH ×2 (09:23→21:57)
[2019-04-16 09:52] LABS: EOSINOPHILS % (AUTO) 0.5 % (0.0-3.0); HEMATOCRIT 43.8 % (42.0-52.0); HEMOGLOBIN 14.7 G/DL (14.2-18.0); MEAN CORPUSCULAR VOLUME 89 FL (80-99); MONOCYTES % (AUTO) 5.4 % (1.0-10.0); NEUTROPHILS % (AUTO) 74.1 % (45.0-75.0); PLATELET COUNT 296 K/UL (150-450); RED CELL DISTRIBUTION WIDTH 13.7 % (11.6-14.8); WHITE BLOOD COUNT 16.5 K/UL (4.8-10.8)
[2019-04-16 10:13] LABS: ALANINE AMINOTRANSFERASE 38 U/L (12-78); ALBUMIN 2.9 G/DL (3.4-5.0); ALBUMIN/GLOBULIN RATIO 0.9 (1.0-2.7); ALKALINE PHOSPHATASE 71 U/L (46-116); ANION GAP 7 mmol/L (5-15); ASPARTATE AMINO TRANSFERASE 13 U/L (15-37); BILIRUBIN,TOTAL 0.3 MG/DL (0.2-1.0); BLOOD UREA NITROGEN 33 mg/dL (7-18); CALCIUM 8.7 MG/DL (8.5-10.1); CARBON DIOXIDE 30 MMOL/L (21-32); CHLORIDE 100 MMOL/L (98-107); CREATININE 1.2 MG/DL (0.55-1.30); POTASSIUM 4.5 MMOL/L (3.5-5.1); SODIUM 137 MMOL/L (136-145)
--- NOTE | 2019-04-16 11:10 | Pulmonology Progress Note ---
Assessment/Plan Problems: (1) Respiratory failure with hypoxia (2) COPD exacerbation (3) Pneumonia (4) Pacemaker (5) Diabetes mellitus (6) Prostate cancer Assessment/Plan irritable again, angry that he didn't get any breakfast, he did still short of breath coughing phlegm CXR no banmb2d sliding scale diabetic diet taper down steroids cardio note reviewed. Subjective ROS Limited/Unobtainable: No Interval Events: stilll short of breath Constitutional: Reports: no symptoms Allergies: Coded Allergies: No Known Allergies (Unverified , 10/24/16) Objective Last 24 Hour Vital Signs Date Time Temp Pulse Resp B/P (MAP) Pulse Ox O2 Delivery O2 Flow Rate FiO2 04/16/19 09:23 61 109/66 04/16/19 07:50 61 18 98 Room Air 21 54 20 92 04/16/19 07:40 92 Room Air 21 04/16/19 05:42 97.5 04/16/19 04:00 72 04/16/19 00:00 77 04/15/19 21:55 81 109/66 04/15/19 21:00 Nasal Cannula 4.0 04/15/19 20:00 97.5 81 16 109/66 (80) 90 04/15/19 20:00 79 04/15/19 19:15 89 Nasal Cannula 2.0 28 04/15/19 16:35 62 18 100 Nasal Cannula 3.0 32 64 18 98 04/15/19 16:00 66 04/15/19 16:00 97.6 60 18 120/72 (88) 90 04/15/19 12:00 64 04/15/19 12:00 96.9 80 20 120/61 (80) 100 04/15/19 11:33 60 20 100 Nasal Cannula 3.0 32 58 20 97 Intake and Output 04/15/19 04/16/19 18:59 06:59 Intake Total 420 ml Output Total 1500 ml 2000 ml Balance -1080 ml -2000 ml Intake Oral 420 ml Output Urine Total 1500 ml 2000 ml # Voids 3 General Appearance: WD/WN HEENT: normocephalic, atraumatic Respiratory/Chest: chest wall non-tender, accessory muscle use Cardiovascular: normal peripheral pulses, normal rate Abdomen: normal bowel sounds, soft, non tender Genitourinary: normal external genitalia Extremities: no cyanosis 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 Lymphatic: no neck adenopathy Laboratory Tests 04/16/19 09:25: White Blood Count 16.5H, Red Blood Count 4.90, Hemoglobin 14.7, Hematocrit 43.8 , Mean Corpuscular Volume 89, Mean Corpuscular Hemoglobin 30.1, Mean Corpuscular Hemoglobin Concent 33.7, Red Cell Distribution Width 13.7, Platelet Count 296, Mean Platelet Volume 6.4L, Neutrophils (%) (Auto) 74.1, Lymphocytes ( %) (Auto) 19.0L, Monocytes (%) (Auto) 5.4, Eosinophils (%) (Auto) 0.5, Basophils (%) (Auto) 1.0, Sodium Level 137, Potassium Level 4.5, Chloride Level 100, Carbon Dioxide Level 30, Anion Gap 7, Blood Urea Nitrogen 33H, Creatinine 1.2, Estimat Glomerular Filtration Rate , Glucose Level 241H, Calcium Level 8.7 , Total Bilirubin 0.3, Aspartate Amino Transf (AST/SGOT) 13L, Alanine Aminotransferase (ALT/SGPT) 38, Alkaline Phosphatase 71, Troponin I 0.013, Pro-B -Type Natriuretic Peptide 378H, Total Protein 6.3L, Albumin 2.9L, Globulin 3.4, Albumin/Globulin Ratio 0.9L Current Medications Medications (Trade) Dose Ordered Sig/Dejon Route PRN Reason Start Time Stop Time Status Last Admin Dose Admin Acetaminophen (Tylenol) 650 mg Q4H PRN ORAL fever 04/15/19 03:48 05/08/19 03:47 04/16/19 05:12 Albuterol/ Ipratropium (Albuterol/ Ipratropium) 3 ml Q4H PRN HHN Shortness of Breath 04/15/19 03:30 04/19/19 11:29 Albuterol/ Ipratropium (Albuterol/ Ipratropium) 3 ml QIDRT INH 04/15/19 07:00 04/19/19 14:59 04/16/19 07:40 Apixaban (Eliquis) 5 mg BID ORAL 04/15/19 09:00 05/09/19 08:59 04/16/19 09:23 Carvedilol (Coreg) 6.25 mg EVERY 12 HOURS ORAL 04/15/19 09:00 05/09/19 08:59 04/16/19 09:23 Clonidine HCl (Catapres Tab) 0.1 mg Q4H PRN ORAL sbp more than 160 04/15/19 03:49 05/08/19 03:48 Dextrose (Dextrose 50%) 25 ml Q30M PRN IV Hypoglycemia 04/15/19 03:30 05/09/19 07:29 Dextrose (Dextrose 50%) 50 ml Q30M PRN IV Hypoglycemia 04/15/19 03:30 05/09/19 07:29 Insulin Aspart (NovoLOG) BEFORE MEALS AND HS SUBQ 04/15/19 06:30 05/09/19 13:29 04/15/19 21:59 Insulin Aspart (NovoLOG) 10 units NOVOTIAC SUBQ 04/16/19 07:30 05/10/19 07:29 04/16/19 09:24 Insulin Detemir (Levemir) 16 units BEDTIME SUBQ 04/16/19 21:00 05/09/19 20:59 Levothyroxine Sodium (Synthroid) 150 mcg ACBREAKFAST ORAL 04/15/19 06:30 05/09/19 06:29 04/15/19 06:44 Nitroglycerin (Ntg) 0.4 mg Q5M X 3 DOSES PRN SL Prn Chest Pain 04/15/19 03:15 05/08/19 21:29 Ondansetron HCl (Zofran) 4 mg Q6H PRN IVP Nausea & Vomiting 04/15/19 03:55 05/08/19 03:54 Promethazine HCl/ Codeine (Phenergan with Codeine) 5 ml Q6H PRN ORAL cough 04/15/19 03:55 05/08/19 03:54 Tamsulosin HCl (Flomax) 0.4 mg BEDTIME ORAL 04/15/19 21:00 05/09/19 20:59 04/15/19 21:55 Goldie Obrien MD Apr 16, 2019 11:10
[2019-04-16 12:00] VITALS: BP_SYST 104; BP_SYST 164; BP_DIAS 64; BP_DIAS 65
--- NOTE | 2019-04-16 12:52 | Diagnostic Imaging Report ---
Indication: Dyspnea Comparison: None A single view chest radiograph was obtained. Findings: No definite infiltrate or pulmonary vascular congestion identified. The left hemidiaphragm is chronically elevated. Pacemaker is again noted. The heart is enlarged. The aorta is mildly enlarged consistent with atherosclerotic vascular disease. The bones are osteopenic. Impression: No acute disease
--- NOTE | 2019-04-16 15:26 | Internal Med Progress Note ---
Subjective Physician Name Jewel Giraldo Attending Physician Jewel Giraldo MD Current Medications Medications (Trade) Dose Ordered Sig/Dejon Route PRN Reason Start Time Stop Time Status Last Admin Dose Admin Acetaminophen (Tylenol) 650 mg Q4H PRN ORAL fever 04/15/19 03:48 05/08/19 03:47 04/16/19 05:12 Albuterol/ Ipratropium (Albuterol/ Ipratropium) 3 ml Q4H PRN HHN Shortness of Breath 04/15/19 03:30 04/19/19 11:29 Albuterol/ Ipratropium (Albuterol/ Ipratropium) 3 ml QIDRT INH 04/15/19 07:00 04/19/19 14:59 04/16/19 07:40 Apixaban (Eliquis) 5 mg BID ORAL 04/15/19 09:00 05/09/19 08:59 04/16/19 09:23 Carvedilol (Coreg) 6.25 mg EVERY 12 HOURS ORAL 04/15/19 09:00 05/09/19 08:59 04/16/19 09:23 Clonidine HCl (Catapres Tab) 0.1 mg Q4H PRN ORAL sbp more than 160 04/15/19 03:49 05/08/19 03:48 Dextrose (Dextrose 50%) 25 ml Q30M PRN IV Hypoglycemia 04/15/19 03:30 05/09/19 07:29 Dextrose (Dextrose 50%) 50 ml Q30M PRN IV Hypoglycemia 04/15/19 03:30 05/09/19 07:29 Insulin Aspart (NovoLOG) BEFORE MEALS AND HS SUBQ 04/15/19 06:30 05/09/19 13:29 04/16/19 12:14 Insulin Aspart (NovoLOG) 10 units NOVOTIAC SUBQ 04/16/19 07:30 05/10/19 07:29 04/16/19 12:14 Insulin Detemir (Levemir) 16 units BEDTIME SUBQ 04/16/19 21:00 05/09/19 20:59 Levothyroxine Sodium (Synthroid) 150 mcg ACBREAKFAST ORAL 04/15/19 06:30 05/09/19 06:29 04/15/19 06:44 Nitroglycerin (Ntg) 0.4 mg Q5M X 3 DOSES PRN SL Prn Chest Pain 04/15/19 03:15 05/08/19 21:29 Ondansetron HCl (Zofran) 4 mg Q6H PRN IVP Nausea & Vomiting 04/15/19 03:55 05/08/19 03:54 Promethazine HCl/ Codeine (Phenergan with Codeine) 5 ml Q6H PRN ORAL cough 04/15/19 03:55 05/08/19 03:54 Tamsulosin HCl (Flomax) 0.4 mg BEDTIME ORAL 04/15/19 21:00 05/09/19 20:59 04/15/19 21:55 Allergies: Coded Allergies: No Known Allergies (Unverified , 10/24/16) Subjective Awake, responsive, Cough, Objective Last Vital Signs Date Time Temp Pulse Resp B/P (MAP) Pulse Ox O2 Delivery O2 Flow Rate FiO2 04/16/19 12:00 98.7 73 11 104/64 (77) 90 04/16/19 09:00 Nasal Cannula 4.0 04/16/19 07:50 21 Laboratory Tests Test 04/16/19 09:25 White Blood Count 16.5 K/UL (4.8-10.8) H Red Blood Count 4.90 M/UL (4.70-6.10) Hemoglobin 14.7 G/DL (14.2-18.0) Hematocrit 43.8 % (42.0-52.0) Mean Corpuscular Volume 89 FL (80-99) Mean Corpuscular Hemoglobin 30.1 PG (27.0-31.0) Mean Corpuscular Hemoglobin Concent 33.7 G/DL (32.0-36.0) Red Cell Distribution Width 13.7 % (11.6-14.8) Platelet Count 296 K/UL (150-450) Mean Platelet Volume 6.4 FL (6.5-10.1) L Neutrophils (%) (Auto) 74.1 % (45.0-75.0) Lymphocytes (%) (Auto) 19.0 % (20.0-45.0) L Monocytes (%) (Auto) 5.4 % (1.0-10.0) Eosinophils (%) (Auto) 0.5 % (0.0-3.0) Basophils (%) (Auto) 1.0 % (0.0-2.0) Sodium Level 137 MMOL/L (136-145) Potassium Level 4.5 MMOL/L (3.5-5.1) Chloride Level 100 MMOL/L (98-107) Carbon Dioxide Level 30 MMOL/L (21-32) Anion Gap 7 mmol/L (5-15) Blood Urea Nitrogen 33 mg/dL (7-18) H Creatinine 1.2 MG/DL (0.55-1.30) Estimat Glomerular Filtration Rate mL/min (>60) Glucose Level 241 MG/DL (74-106) H Calcium Level 8.7 MG/DL (8.5-10.1) Total Bilirubin 0.3 MG/DL (0.2-1.0) Aspartate Amino Transf (AST/SGOT) 13 U/L (15-37) L Alanine Aminotransferase (ALT/SGPT) 38 U/L (12-78) Alkaline Phosphatase 71 U/L (46-116) Troponin I 0.013 ng/mL (0.000-0.056) Pro-B-Type Natriuretic Peptide 378 pg/mL (0-125) H Total Protein 6.3 G/DL (6.4-8.2) L Albumin 2.9 G/DL (3.4-5.0) L Globulin 3.4 g/dL Albumin/Globulin Ratio 0.9 (1.0-2.7) L Intake and Output 04/15/19 04/16/19 19:00 07:00 Intake Total 280 ml Output Total 1500 ml 2000 ml Balance -1220 ml -2000 ml Intake Oral 280 ml Output Urine Total 1500 ml 2000 ml # Voids 3 Objective GENERAL: Awake, responsive, no acute distress. HEAD AND NECK: Pupils are equal and reactive to light. Extraocular muscles intact. Neck was supple. No JVD. LUNGS: Decrease air entry at bases. No wheezes, No rales. HEART: S1, S2. Irregular. No murmur. pacemaker in the left-sided chest wall. ABDOMEN: Soft, nondistended, nontender. Mildly obese. EXTREMITIES: No cyanosis, clubbing, edema. NEUROLOGIC: Cranial nerves II through XII grossly normal. Motor is 5/5 in all extremities. Gait is intact. GENITOURINARY: It was noted the patient has a Montgomery catheter. RECTAL: Refused and deferred. PSYCHIATRIC: Mood and affect is intact. Assessment/Plan Assessment/Plan ASSESSMENT: 1. Acute hypoxemic respiratory failure, most likely secondary to acute COPD exacerbation. 2. Acute COPD exacerbation. 3. Pneumonia. 4. Sick sinus syndrome status post pacemaker. 5. Diabetes type 2. 6. Prostate cancer. 7. Hyperkalemia. 8. Insulin induced hyperglycemia. 9. Prostate enlargement. PLAN: in monitor broad-spectrum antibiotic complete 7 days of Levaquin. Code status is Full Code. DVT prophylaxis: Eliquis. monitor cultures and laboratory in the morning. Follow up with Dr. Goldie Obrien, Pulmonary Critical Care consultation. Jewel Giraldo MD Apr 16, 2019 15:26
[2019-04-16 16:00] VITALS: BP 110/74
--- NOTE | 2019-04-16 19:25 | Cardiology Progress Note ---
Assessment/Plan Assessment/Plan 1. COPD with exacerbation. 2. History of hypothyroidism, status post thyroidectomy for thyroid cancer. 3. History of prostate cancer, indwelling Montgomery catheter. 4. History of recurrent urinary tract infections. troop neg tle revied labs ntoed still with sob cv stable Subjective Cardiovascular: Denies: chest pain, lightheadedness Respiratory: Reports: cough, shortness of breath Gastrointestinal/Abdominal: Denies: abdominal pain Genitourinary: Denies: burning Subjective pain in wilson arm form elbow the hand Objective Last 24 Hour Vital Signs Date Time Temp Pulse Resp B/P (MAP) Pulse Ox O2 Delivery O2 Flow Rate FiO2 04/16/19 16:00 70 04/16/19 16:00 96.6 66 20 110/74 (86) 98 04/16/19 15:35 68 18 98 Room Air 21 62 16 93 04/16/19 12:00 72 04/16/19 12:00 98.7 73 19 164/65 (98) 90 04/16/19 09:23 61 109/66 04/16/19 09:00 Nasal Cannula 4.0 04/16/19 08:00 66 04/16/19 07:50 61 18 98 Room Air 21 54 20 92 04/16/19 07:40 92 Room Air 21 04/16/19 05:42 97.5 04/16/19 04:00 72 04/16/19 00:00 77 04/15/19 21:55 81 109/66 04/15/19 21:00 Nasal Cannula 4.0 04/15/19 20:00 97.5 81 16 109/66 (80) 90 04/15/19 20:00 79 General Appearance: no apparent distress, alert Neck: supple Cardiovascular: regular rhythm Respiratory/Chest: decreased breath sounds Abdomen: normal bowel sounds, non tender, soft Extremities: no swelling Intake and Output 04/15/19 04/16/19 19:00 07:00 Intake Total 280 ml Output Total 1500 ml 2000 ml Balance -1220 ml -2000 ml Intake Oral 280 ml Output Urine Total 1500 ml 2000 ml # Voids 3 Laboratory Tests Test 04/16/19 09:25 White Blood Count 16.5 K/UL (4.8-10.8) H Red Blood Count 4.90 M/UL (4.70-6.10) Hemoglobin 14.7 G/DL (14.2-18.0) Hematocrit 43.8 % (42.0-52.0) Mean Corpuscular Volume 89 FL (80-99) Mean Corpuscular Hemoglobin 30.1 PG (27.0-31.0) Mean Corpuscular Hemoglobin Concent 33.7 G/DL (32.0-36.0) Red Cell Distribution Width 13.7 % (11.6-14.8) Platelet Count 296 K/UL (150-450) Mean Platelet Volume 6.4 FL (6.5-10.1) L Neutrophils (%) (Auto) 74.1 % (45.0-75.0) Lymphocytes (%) (Auto) 19.0 % (20.0-45.0) L Monocytes (%) (Auto) 5.4 % (1.0-10.0) Eosinophils (%) (Auto) 0.5 % (0.0-3.0) Basophils (%) (Auto) 1.0 % (0.0-2.0) Sodium Level 137 MMOL/L (136-145) Potassium Level 4.5 MMOL/L (3.5-5.1) Chloride Level 100 MMOL/L (98-107) Carbon Dioxide Level 30 MMOL/L (21-32) Anion Gap 7 mmol/L (5-15) Blood Urea Nitrogen 33 mg/dL (7-18) H Creatinine 1.2 MG/DL (0.55-1.30) Estimat Glomerular Filtration Rate mL/min (>60) Glucose Level 241 MG/DL (74-106) H Calcium Level 8.7 MG/DL (8.5-10.1) Total Bilirubin 0.3 MG/DL (0.2-1.0) Aspartate Amino Transf (AST/SGOT) 13 U/L (15-37) L Alanine Aminotransferase (ALT/SGPT) 38 U/L (12-78) Alkaline Phosphatase 71 U/L (46-116) Troponin I 0.013 ng/mL (0.000-0.056) Pro-B-Type Natriuretic Peptide 378 pg/mL (0-125) H Total Protein 6.3 G/DL (6.4-8.2) L Albumin 2.9 G/DL (3.4-5.0) L Globulin 3.4 g/dL Albumin/Globulin Ratio 0.9 (1.0-2.7) L Chemo Esquivel MD Apr 16, 2019 19:25
--- NOTE | 2019-04-16 19:31 | Infectious Diseases Prog Note ---
Assessment/Plan Assessment/Plan Assessment: Acute hypoxic respiratory failure s/p bipap, now at COPD exacerbation CHF exacerbation -04/16 CXR: No acute disease -04/13 CXR: Suspected mild pulmonary vascular congestion. Correlate clinically -04/08 CXR: Mild pulmonary vascular congestion suspected Afebrile Leukocytosis,(s/p high dose steroids), now improving KAYLAN, improving Hyperglycemia COPD CAD CHF prostate cancer s/p PPM former smoker Plan: -Continue to monitor off abx -04/15 SP Levaquin #7 -04/08 SP Ceftriaxone x1, Azithromycin x1 -Monitor CBC/CMP, temperatures -aspiration precautions Thank you for this consultation. Will continue to follow along with you. Discussed with RN Subjective Allergies: Coded Allergies: No Known Allergies (Unverified , 10/24/16) Subjective afebrile wbc improving at Objective Vital Signs Last 24 Hour Vital Signs Date Time Temp Pulse Resp B/P (MAP) Pulse Ox O2 Delivery O2 Flow Rate FiO2 04/16/19 16:00 70 04/16/19 16:00 96.6 66 20 110/74 (86) 98 04/16/19 15:35 68 18 98 Room Air 21 62 16 93 04/16/19 12:00 72 04/16/19 12:00 98.7 73 19 164/65 (98) 90 04/16/19 09:23 61 109/66 04/16/19 09:00 Nasal Cannula 4.0 04/16/19 08:00 66 04/16/19 07:50 61 18 98 Room Air 21 54 20 92 04/16/19 07:40 92 Room Air 21 04/16/19 05:42 97.5 04/16/19 04:00 72 04/16/19 00:00 77 04/15/19 21:55 81 109/66 04/15/19 21:00 Nasal Cannula 4.0 04/15/19 20:00 97.5 81 16 109/66 (80) 90 04/15/19 20:00 79 Height (Feet): 6 Height (Inches): 0.00 Weight (Pounds): 195 Objective General Appearance: WD/WN HEENT: normocephalic, atraumatic Neck: non-tender, normal alignment Respiratory/Chest: chest wall non-tender, rhonchi - left, rhonchi - right Cardiovascular/Chest: normal peripheral pulses Extremities: normal range of motion Laboratory Tests Test 04/16/19 09:25 White Blood Count 16.5 K/UL (4.8-10.8) H Red Blood Count 4.90 M/UL (4.70-6.10) Hemoglobin 14.7 G/DL (14.2-18.0) Hematocrit 43.8 % (42.0-52.0) Mean Corpuscular Volume 89 FL (80-99) Mean Corpuscular Hemoglobin 30.1 PG (27.0-31.0) Mean Corpuscular Hemoglobin Concent 33.7 G/DL (32.0-36.0) Red Cell Distribution Width 13.7 % (11.6-14.8) Platelet Count 296 K/UL (150-450) Mean Platelet Volume 6.4 FL (6.5-10.1) L Neutrophils (%) (Auto) 74.1 % (45.0-75.0) Lymphocytes (%) (Auto) 19.0 % (20.0-45.0) L Monocytes (%) (Auto) 5.4 % (1.0-10.0) Eosinophils (%) (Auto) 0.5 % (0.0-3.0) Basophils (%) (Auto) 1.0 % (0.0-2.0) Sodium Level 137 MMOL/L (136-145) Potassium Level 4.5 MMOL/L (3.5-5.1) Chloride Level 100 MMOL/L (98-107) Carbon Dioxide Level 30 MMOL/L (21-32) Anion Gap 7 mmol/L (5-15) Blood Urea Nitrogen 33 mg/dL (7-18) H Creatinine 1.2 MG/DL (0.55-1.30) Estimat Glomerular Filtration Rate mL/min (>60) Glucose Level 241 MG/DL (74-106) H Calcium Level 8.7 MG/DL (8.5-10.1) Total Bilirubin 0.3 MG/DL (0.2-1.0) Aspartate Amino Transf (AST/SGOT) 13 U/L (15-37) L Alanine Aminotransferase (ALT/SGPT) 38 U/L (12-78) Alkaline Phosphatase 71 U/L (46-116) Troponin I 0.013 ng/mL (0.000-0.056) Pro-B-Type Natriuretic Peptide 378 pg/mL (0-125) H Total Protein 6.3 G/DL (6.4-8.2) L Albumin 2.9 G/DL (3.4-5.0) L Globulin 3.4 g/dL Albumin/Globulin Ratio 0.9 (1.0-2.7) L Current Medications Medications (Trade) Dose Ordered Sig/Dejon Route PRN Reason Start Time Stop Time Status Last Admin Dose Admin Acetaminophen (Tylenol) 650 mg Q4H PRN ORAL fever 04/15/19 03:48 05/08/19 03:47 04/16/19 05:12 Albuterol/ Ipratropium (Albuterol/ Ipratropium) 3 ml Q4H PRN HHN Shortness of Breath 04/15/19 03:30 04/19/19 11:29 Albuterol/ Ipratropium (Albuterol/ Ipratropium) 3 ml QIDRT INH 04/15/19 07:00 04/19/19 14:59 04/16/19 15:25 Apixaban (Eliquis) 5 mg BID ORAL 04/15/19 09:00 05/09/19 08:59 04/16/19 17:19 Carvedilol (Coreg) 6.25 mg EVERY 12 HOURS ORAL 04/15/19 09:00 05/09/19 08:59 04/16/19 09:23 Clonidine HCl (Catapres Tab) 0.1 mg Q4H PRN ORAL sbp more than 160 04/15/19 03:49 05/08/19 03:48 Dextrose (Dextrose 50%) 25 ml Q30M PRN IV Hypoglycemia 04/15/19 03:30 05/09/19 07:29 Dextrose (Dextrose 50%) 50 ml Q30M PRN IV Hypoglycemia 04/15/19 03:30 05/09/19 07:29 Insulin Aspart (NovoLOG) BEFORE MEALS AND HS SUBQ 04/15/19 06:30 05/09/19 13:29 04/16/19 17:14 Insulin Aspart (NovoLOG) 10 units NOVOTIAC SUBQ 04/16/19 07:30 05/10/19 07:29 04/16/19 17:15 Insulin Detemir (Levemir) 16 units BEDTIME SUBQ 04/16/19 21:00 05/09/19 20:59 Levothyroxine Sodium (Synthroid) 150 mcg ACBREAKFAST ORAL 04/15/19 06:30 05/09/19 06:29 04/15/19 06:44 Nitroglycerin (Ntg) 0.4 mg Q5M X 3 DOSES PRN SL Prn Chest Pain 04/15/19 03:15 05/08/19 21:29 Ondansetron HCl (Zofran) 4 mg Q6H PRN IVP Nausea & Vomiting 04/15/19 03:55 05/08/19 03:54 Promethazine HCl/ Codeine (Phenergan with Codeine) 5 ml Q6H PRN ORAL cough 04/15/19 03:55 05/08/19 03:54 Tamsulosin HCl (Flomax) 0.4 mg BEDTIME ORAL 04/15/19 21:00 05/09/19 20:59 04/15/19 21:55 An Villa M.D. Apr 16, 2019 19:31
[2019-04-16 20:00] VITALS: BP 139/79
[2019-04-16] MEDS: Tamsulosin 0.4mg cap ORAL SCH (21:54)
[2019-04-16] MEDS: Levemir Flexpen SUBQ SCH (22:00)
[2019-04-16] MEDS: Promethazine/Codeine 5ml UD ORAL PRN (22:05)
[2019-04-17] VITALS: BP 140/86
[2019-04-17 04:00] VITALS: BP 121/84
[2019-04-17] MEDS: NovoLOG Insulin Flexpen SUBQ SCH ×7 (06:40→20:49)
[2019-04-17 08:00] VITALS: BP 129/88
[2019-04-17] MEDS: Albuterol/Ipratropium 3ml neb INH SCH ×4 (08:08→19:18)
[2019-04-17] MEDS ORDERED: HYDROcodone/Acetamin 5/325 tab ORAL PRN (09:45)
[2019-04-17] MEDS: Carvedilol 6.25mg Tab ORAL SCH ×2 (10:05→20:53)
[2019-04-17] MEDS: Eliquis 5mg tablet ORAL SCH ×2 (10:05→17:21)
[2019-04-17] MEDS: HYDROcodone/Acetamin 5/325 tab ORAL PRN ×2 (10:07→18:45)
--- NOTE | 2019-04-17 10:10 | Infectious Diseases Prog Note ---
Assessment/Plan Assessment/Plan Assessment: Acute hypoxic respiratory failure s/p bipap, now at RA COPD exacerbation CHF exacerbation -04/16 CXR: No acute disease -04/13 CXR: Suspected mild pulmonary vascular congestion. Correlate clinically -04/08 CXR: Mild pulmonary vascular congestion suspected Afebrile Leukocytosis,(s/p high dose steroids), now improving KAYLAN, improving Hyperglycemia COPD CAD CHF prostate cancer s/p PPM former smoker Plan: -Continue to monitor off abx -04/15 SP Levaquin #7 -04/08 SP Ceftriaxone x1, Azithromycin x1 -Monitor CBC/CMP, temperatures -aspiration precautions Thank you for this consultation. Will continue to follow along with you. Discussed with RN Subjective Allergies: Coded Allergies: No Known Allergies (Unverified , 10/24/16) Subjective comfortable Objective Vital Signs Last 24 Hour Vital Signs Date Time Temp Pulse Resp B/P (MAP) Pulse Ox O2 Delivery O2 Flow Rate FiO2 04/17/19 10:05 105 129/88 04/17/19 08:06 105 20 96 Nasal Cannula 2.0 28 110 24 90 04/17/19 08:05 90 Nasal Cannula 2.0 28 04/17/19 08:00 97.1 97 19 129/88 (102) 97 04/17/19 04:00 73 04/17/19 04:00 98.9 81 22 121/84 (96) 96 04/17/19 01:35 60 18 96 Nasal Cannula 2.0 28 04/17/19 00:14 67 04/17/19 00:00 97.8 82 20 140/86 (104) 95 04/16/19 21:57 79 139/79 04/16/19 21:00 Nasal Cannula 4.0 04/16/19 20:50 96 Nasal Cannula 2.0 28 04/16/19 20:47 63 18 99 Nasal Cannula 2.0 28 60 16 96 04/16/19 20:00 74 04/16/19 20:00 97.7 79 20 139/79 (99) 95 04/16/19 16:00 70 04/16/19 16:00 96.6 66 20 110/74 (86) 98 04/16/19 15:35 68 18 98 Room Air 21 62 16 93 04/16/19 12:00 72 04/16/19 12:00 98.7 73 19 164/65 (98) 90 Height (Feet): 6 Height (Inches): 0.00 Weight (Pounds): 195 Respiratory/Chest: normal breath sounds Cardiovascular: regular rhythm Abdomen: no organomegaly Current Medications Medications (Trade) Dose Ordered Sig/Dejon Route PRN Reason Start Time Stop Time Status Last Admin Dose Admin Acetaminophen (Tylenol) 650 mg Q4H PRN ORAL fever 04/15/19 03:48 05/08/19 03:47 04/17/19 03:43 Acetaminophen/ Hydrocodone Bitart (Turrell 5/325) 1 tab Q6H PRN ORAL Severe Pain (Pain Scale 7-10) 04/17/19 10:00 04/24/19 09:59 04/17/19 10:07 Albuterol/ Ipratropium (Albuterol/ Ipratropium) 3 ml Q4H PRN HHN Shortness of Breath 04/15/19 03:30 04/19/19 11:29 Albuterol/ Ipratropium (Albuterol/ Ipratropium) 3 ml QIDRT INH 04/15/19 07:00 04/19/19 14:59 04/17/19 08:08 Apixaban (Eliquis) 5 mg BID ORAL 04/15/19 09:00 05/09/19 08:59 04/17/19 10:05 Carvedilol (Coreg) 6.25 mg EVERY 12 HOURS ORAL 04/15/19 09:00 05/09/19 08:59 04/17/19 10:05 Clonidine HCl (Catapres Tab) 0.1 mg Q4H PRN ORAL sbp more than 160 04/15/19 03:49 05/08/19 03:48 Dextrose (Dextrose 50%) 25 ml Q30M PRN IV Hypoglycemia 04/15/19 03:30 05/09/19 07:29 Dextrose (Dextrose 50%) 50 ml Q30M PRN IV Hypoglycemia 04/15/19 03:30 05/09/19 07:29 Insulin Aspart (NovoLOG) BEFORE MEALS AND HS SUBQ 04/15/19 06:30 05/09/19 13:29 04/17/19 06:41 Insulin Aspart (NovoLOG) 10 units NOVOTIAC SUBQ 04/16/19 07:30 05/10/19 07:29 04/17/19 06:40 Insulin Detemir (Levemir) 16 units BEDTIME SUBQ 04/16/19 21:00 05/09/19 20:59 04/16/19 22:00 Levothyroxine Sodium (Synthroid) 150 mcg ACBREAKFAST ORAL 04/15/19 06:30 05/09/19 06:29 04/17/19 06:36 Nitroglycerin (Ntg) 0.4 mg Q5M X 3 DOSES PRN SL Prn Chest Pain 04/15/19 03:15 05/08/19 21:29 Ondansetron HCl (Zofran) 4 mg Q6H PRN IVP Nausea & Vomiting 04/15/19 03:55 05/08/19 03:54 Promethazine HCl/ Codeine (Phenergan with Codeine) 5 ml Q6H PRN ORAL cough 04/15/19 03:55 05/08/19 03:54 04/16/19 22:05 Tamsulosin HCl (Flomax) 0.4 mg BEDTIME ORAL 04/15/19 21:00 05/09/19 20:59 04/16/19 21:54 Robert Canela MD Apr 17, 2019 10:10
[2019-04-17 12:00] VITALS: BP 114/71
--- NOTE | 2019-04-17 13:09 | Pulmonology Progress Note ---
Assessment/Plan Assessment/Plan ASSESSMENT Acute hypoxemic respiratory failure requiring BiPAP , likely secondary to COPD exacerbation -resolved Acute COPD exacerbation Pneumonia SSS, status post pacemaker Diabetes mellitus type 2 Prostate cancer Hypothyroidism, status post thyroidectomy for thyroid cancer. BPH Acute kidney injury- resolved History of smoking ( quit 2 yrs ago) Anxiety PLAN OF CARE tele all troponin negative cardio follows, per cardio- CV status remains stable O2 titrate to keep pulse ox >92%, HHN ATC and prn , pulse ox stable on 2 L o2 via NC fup with CXR steroids tapered due to KAYLAN, restarted oral steroids given significant wheezing , also tapered abx as per ID a/tussive as needed SCX if able BS management with the SSRI, [id number] continue Flomax avoid nephrotoxic , monitor renal parameters, electrolytes, correct electrolytes as needed, acute kidney injury resolved PT eval and Rx lots of anxiety, crying - consider psych eval per primary team case discussed and evaluated by supervising physician Subjective Allergies: Coded Allergies: No Known Allergies (Unverified , 10/24/16) All Systems: reviewed and negative except above Subjective transferred to tele low tachy, cardio follows no SOB, leuk trending down lots of anxiety Objective Last 24 Hour Vital Signs Date Time Temp Pulse Resp B/P (MAP) Pulse Ox O2 Delivery O2 Flow Rate FiO2 04/17/19 12:00 98.6 94 21 114/71 (85) 96 04/17/19 11:05 103 20 96 Nasal Cannula 2.0 28 101 24 91 04/17/19 10:05 105 129/88 04/17/19 09:00 Nasal Cannula 4.0 04/17/19 08:06 105 20 96 Nasal Cannula 2.0 28 110 24 90 04/17/19 08:05 90 Nasal Cannula 2.0 28 04/17/19 08:00 97.1 97 19 129/88 (102) 97 04/17/19 08:00 97 04/17/19 04:00 73 04/17/19 04:00 98.9 81 22 121/84 (96) 96 04/17/19 01:35 60 18 96 Nasal Cannula 2.0 28 04/17/19 00:14 67 04/17/19 00:00 97.8 82 20 140/86 (104) 95 04/16/19 21:57 79 139/79 2/7/20 21:00 Nasal Cannula 4.0 04/16/19 20:50 96 Nasal Cannula 2.0 28 04/16/19 20:47 63 18 99 Nasal Cannula 2.0 28 60 16 96 04/16/19 20:00 74 04/16/19 20:00 97.7 79 20 139/79 (99) 95 04/16/19 16:00 70 04/16/19 16:00 96.6 66 20 110/74 (86) 98 04/16/19 15:35 68 18 98 Room Air 21 62 16 93 Intake and Output 04/16/19 04/17/19 19:00 07:00 Intake Total 140 ml 500 ml Output Total 1200 ml 1100 ml Balance -1060 ml -600 ml Intake Oral 140 ml 140 ml Other 360 ml Output Urine Total 1200 ml 1100 ml # Voids 2 # Bowel Movements 1 Objective General Appearance: no acute distress, other - A/A/O AA male slightly anxious HEENT: normocephalic, atraumatic, anicteric, mucous membranes moist Respiratory/Chest: no respiratory distress, no accessory muscle use, expiratory wheezing - bulateral diffused Cardiovascular: normal peripheral pulses, low tachy Abdomen: normal bowel sounds, soft, non tender Extremities: no edema, pedal pulses normal Neurologic/Psychiatric: alert, oriented x 3, responsive Musculoskeletal: normal muscle bulk Current Medications Medications (Trade) Dose Ordered Sig/Dejon Route PRN Reason Start Time Stop Time Status Last Admin Dose Admin Acetaminophen (Tylenol) 650 mg Q4H PRN ORAL fever 04/15/19 03:48 05/08/19 03:47 04/17/19 03:43 Acetaminophen/ Hydrocodone Bitart ([place] 5/325) 1 tab Q6H PRN ORAL Severe Pain (Pain Scale 7-10) 04/17/19 10:00 04/24/19 09:59 04/17/19 10:07 Albuterol/ Ipratropium (Albuterol/ Ipratropium) 3 ml Q4H PRN HHN Shortness of Breath 04/15/19 03:30 04/19/19 11:29 Albuterol/ Ipratropium (Albuterol/ Ipratropium) 3 ml QIDRT INH 04/15/19 07:00 04/19/19 14:59 04/17/19 11:10 Apixaban (Eliquis) 5 mg BID ORAL 04/15/19 09:00 05/09/19 08:59 04/17/19 10:05 Carvedilol (Coreg) 6.25 mg EVERY 12 HOURS ORAL 04/15/19 09:00 05/09/19 08:59 04/17/19 10:05 Clonidine HCl (Catapres Tab) 0.1 mg Q4H PRN ORAL sbp more than 160 04/15/19 03:49 05/08/19 03:48 Dextrose (Dextrose 50%) 25 ml Q30M PRN IV Hypoglycemia 04/15/19 03:30 05/09/19 07:29 Dextrose (Dextrose 50%) 50 ml Q30M PRN IV Hypoglycemia 04/15/19 03:30 05/09/19 07:29 Insulin Aspart (NovoLOG) BEFORE MEALS AND HS SUBQ 04/15/19 06:30 05/09/19 13:29 04/17/19 12:02 Insulin Aspart (NovoLOG) 10 units NOVOTIAC SUBQ 04/16/19 07:30 05/10/19 07:29 04/17/19 12:02 Insulin Detemir (Levemir) 16 units BEDTIME SUBQ 04/16/19 21:00 05/09/19 20:59 04/16/19 22:00 Levothyroxine Sodium (Synthroid) 150 mcg ACBREAKFAST ORAL 04/15/19 06:30 05/09/19 06:29 04/17/19 06:36 Nitroglycerin (Ntg) 0.4 mg Q5M X 3 DOSES PRN SL Prn Chest Pain 04/15/19 03:15 05/08/19 21:29 Ondansetron HCl (Zofran) 4 mg Q6H PRN IVP Nausea & Vomiting 04/15/19 03:55 05/08/19 03:54 Promethazine HCl/ Codeine (Phenergan with Codeine) 5 ml Q6H PRN ORAL cough 04/15/19 03:55 05/08/19 03:54 04/16/19 22:05 Tamsulosin HCl (Flomax) 0.4 mg BEDTIME ORAL 04/15/19 21:00 05/09/19 20:59 04/16/19 21:54 Karen Lira [employer] Apr 17, 2019 13:09
--- NOTE | 2019-04-17 13:39 | General Progress Note ---
Assessment/Plan Problem List: (1) COPD exacerbation ICD Codes: J44.1 - Chronic obstructive pulmonary disease with (acute) exacerbation SNOMED: 110705872 (2) Respiratory failure with hypoxia ICD Codes: J96.91 - Respiratory failure, unspecified with hypoxia SNOMED: 97719055818402997 (3) Diabetes mellitus ICD Codes: E11.9 - Type 2 diabetes mellitus without complications SNOMED: 61381578 (4) Pacemaker ICD Codes: Z95.0 - Presence of cardiac pacemaker SNOMED: 231382331 (5) Prostate cancer ICD Codes: C61 - Malignant neoplasm of prostate SNOMED: 067434781 (6) Hypothyroid ICD Codes: E03.9 - Hypothyroidism, unspecified SNOMED: 62779018 Assessment/Plan: continue Levemir 16 units qhs continue Novolog 10 units ac tid continue NISS ac / hs Subjective Allergies: Coded Allergies: No Known Allergies (Unverified , 10/24/16) All Systems: reviewed and negative except above Subjective events noted glucose values are in a better range after insulin dosage adjusted Item Value Date Time Bedside Blood Glucose 147 mg/dl H 04/17/19 0641 Bedside Blood Glucose 238 mg/dl H 04/16/19 2232 Bedside Blood Glucose 200 mg/dl H 04/17/19 1202 Bedside Blood Glucose 140 mg/dl H 04/16/19 1715 Objective Last 24 Hour Vital Signs Date Time Temp Pulse Resp B/P (MAP) Pulse Ox O2 Delivery O2 Flow Rate FiO2 04/17/19 12:00 98.6 94 21 114/71 (85) 96 04/17/19 11:05 103 20 96 Nasal Cannula 2.0 28 101 24 91 04/17/19 10:05 105 129/88 04/17/19 09:00 Nasal Cannula 4.0 04/17/19 08:06 105 20 96 Nasal Cannula 2.0 28 110 24 90 04/17/19 08:05 90 Nasal Cannula 2.0 28 04/17/19 08:00 97.1 97 19 129/88 (102) 97 04/17/19 08:00 97 04/17/19 04:00 73 04/17/19 04:00 98.9 81 22 121/84 (96) 96 04/17/19 01:35 60 18 96 Nasal Cannula 2.0 28 04/17/19 00:14 67 04/17/19 00:00 97.8 82 20 140/86 (104) 95 04/16/19 21:57 79 139/79 04/16/19 21:00 Nasal Cannula 4.0 04/16/19 20:50 96 Nasal Cannula 2.0 28 04/16/19 20:47 63 18 99 Nasal Cannula 2.0 28 60 16 96 04/16/19 20:00 74 04/16/19 20:00 97.7 79 20 139/79 (99) 95 04/16/19 16:00 70 04/16/19 16:00 96.6 66 20 110/74 (86) 98 04/16/19 15:35 68 18 98 Room Air 21 62 16 93 Intake and Output 04/16/19 04/17/19 19:00 07:00 Intake Total 140 ml 500 ml Output Total 1200 ml 1100 ml Balance -1060 ml -600 ml Intake Oral 140 ml 140 ml Other 360 ml Output Urine Total 1200 ml 1100 ml # Voids 2 # Bowel Movements 1 Height (Feet): 6 Height (Inches): 0.00 Weight (Pounds): 195 General Appearance: no apparent distress Neck: normal alignment Cardiovascular: normal rate Respiratory/Chest: decreased breath sounds Abdomen: normal bowel sounds Pelvis: normal external exam Edema: no edema noted Arm (L), no edema noted Arm (R), no edema noted Leg (L), no edema noted Leg (R), no edema noted Pedal (L), no edema noted Pedal (R), no edema noted Generalized Objective Current Medications Medications (Trade) Dose Ordered Sig/Dejon Route PRN Reason Start Time Stop Time Status Last Admin Dose Admin Acetaminophen (Tylenol) 650 mg Q4H PRN ORAL fever 04/15/19 03:48 05/08/19 03:47 04/17/19 03:43 Acetaminophen/ Hydrocodone Bitart ([place] 5/325) 1 tab Q6H PRN ORAL Severe Pain (Pain Scale 7-10) 04/17/19 10:00 04/24/19 09:59 04/17/19 10:07 Albuterol/ Ipratropium (Albuterol/ Ipratropium) 3 ml Q4H PRN HHN Shortness of Breath 04/17/19 15:30 04/21/19 23:29 Albuterol/ Ipratropium (Albuterol/ Ipratropium) 3 ml QIDRT INH 04/17/19 15:00 04/21/19 22:59 Apixaban (Eliquis) 5 mg BID ORAL 04/15/19 09:00 05/09/19 08:59 04/17/19 10:05 Carvedilol (Coreg) 6.25 mg EVERY 12 HOURS ORAL 04/15/19 09:00 05/09/19 08:59 04/17/19 10:05 Clonidine HCl (Catapres Tab) 0.1 mg Q4H PRN ORAL sbp more than 160 04/15/19 03:49 05/08/19 03:48 Dextrose (Dextrose 50%) 25 ml Q30M PRN IV Hypoglycemia 04/15/19 03:30 05/09/19 07:29 Dextrose (Dextrose 50%) 50 ml Q30M PRN IV Hypoglycemia 04/15/19 03:30 05/09/19 07:29 Insulin Aspart (NovoLOG) BEFORE MEALS AND HS SUBQ 04/15/19 06:30 05/09/19 13:29 04/17/19 12:02 Insulin Aspart (NovoLOG) 10 units NOVOTIAC SUBQ 04/16/19 07:30 05/10/19 07:29 04/17/19 12:02 Insulin Detemir (Levemir) 16 units BEDTIME SUBQ 04/16/19 21:00 05/09/19 20:59 04/16/19 22:00 Levothyroxine Sodium (Synthroid) 150 mcg ACBREAKFAST ORAL 04/15/19 06:30 05/09/19 06:29 04/17/19 06:36 Nitroglycerin (Ntg) 0.4 mg Q5M X 3 DOSES PRN SL Prn Chest Pain 04/15/19 03:15 05/08/19 21:29 Ondansetron HCl (Zofran) 4 mg Q6H PRN IVP Nausea & Vomiting 04/15/19 03:55 05/08/19 03:54 Promethazine HCl/ Codeine (Phenergan with Codeine) 5 ml Q6H PRN ORAL cough 04/15/19 03:55 05/08/19 03:54 04/16/19 22:05 Tamsulosin HCl (Flomax) 0.4 mg BEDTIME ORAL 04/15/19 21:00 05/09/19 20:59 04/16/19 21:54 Geovanni To MD Apr 17, 2019 13:39
--- NOTE | 2019-04-17 14:09 | Internal Med Progress Note ---
Subjective Date of Service: Apr 17, 2019 Physician Name BrittneyIdris Attending Physician Jewel Giraldo MD Current Medications Medications (Trade) Dose Ordered Sig/Dejon Route PRN Reason Start Time Stop Time Status Last Admin Dose Admin Acetaminophen (Tylenol) 650 mg Q4H PRN ORAL fever 04/15/19 03:48 05/08/19 03:47 04/17/19 03:43 Acetaminophen/ Hydrocodone Bitart ([place] 5/325) 1 tab Q6H PRN ORAL Severe Pain (Pain Scale 7-10) 04/17/19 10:00 04/24/19 09:59 04/17/19 10:07 Albuterol/ Ipratropium (Albuterol/ Ipratropium) 3 ml Q4H PRN HHN Shortness of Breath 04/17/19 15:30 04/21/19 23:29 Albuterol/ Ipratropium (Albuterol/ Ipratropium) 3 ml QIDRT INH 04/17/19 15:00 04/21/19 22:59 Apixaban (Eliquis) 5 mg BID ORAL 04/15/19 09:00 05/09/19 08:59 04/17/19 10:05 Carvedilol (Coreg) 6.25 mg EVERY 12 HOURS ORAL 04/15/19 09:00 05/09/19 08:59 04/17/19 10:05 Clonidine HCl (Catapres Tab) 0.1 mg Q4H PRN ORAL sbp more than 160 04/15/19 03:49 05/08/19 03:48 Dextrose (Dextrose 50%) 25 ml Q30M PRN IV Hypoglycemia 04/15/19 03:30 05/09/19 07:29 Dextrose (Dextrose 50%) 50 ml Q30M PRN IV Hypoglycemia 04/15/19 03:30 05/09/19 07:29 Insulin Aspart (NovoLOG) BEFORE MEALS AND HS SUBQ 04/15/19 06:30 05/09/19 13:29 04/17/19 12:02 Insulin Aspart (NovoLOG) 10 units NOVOTIAC SUBQ 04/16/19 07:30 05/10/19 07:29 04/17/19 12:02 Insulin Detemir (Levemir) 16 units BEDTIME SUBQ 04/16/19 21:00 05/09/19 20:59 04/16/19 22:00 Levothyroxine Sodium (Synthroid) 150 mcg ACBREAKFAST ORAL 04/15/19 06:30 05/09/19 06:29 04/17/19 06:36 Nitroglycerin (Ntg) 0.4 mg Q5M X 3 DOSES PRN SL Prn Chest Pain 04/15/19 03:15 05/08/19 21:29 Ondansetron HCl (Zofran) 4 mg Q6H PRN IVP Nausea & Vomiting 04/15/19 03:55 05/08/19 03:54 Promethazine HCl/ Codeine (Phenergan with Codeine) 5 ml Q6H PRN ORAL cough 04/15/19 03:55 05/08/19 03:54 04/16/19 22:05 Tamsulosin HCl (Flomax) 0.4 mg BEDTIME ORAL 04/15/19 21:00 05/09/19 20:59 04/16/19 21:54 Allergies: Coded Allergies: No Known Allergies (Unverified , 10/24/16) ROS Limited/Unobtainable: No Constitutional: Reports: no symptoms HEENT: Reports: no symptoms Cardiovascular: Reports: no symptoms Respiratory: Reports: shortness of breath Gastrointestinal/Abdominal: Reports: no symptoms Genitourinary: Reports: no symptoms Neurologic/Psychiatric: Reports: no symptoms Subjective 73 YO M admitted with COPD exacerbation. Now respiratory failure. Cover for Int Med-DR Giraldo. Transferred to [facility] for shortness of breath-see rapid response note. Objective Last Vital Signs Date Time Temp Pulse Resp B/P (MAP) Pulse Ox O2 Delivery O2 Flow Rate FiO2 04/17/19 12:00 86 04/17/19 12:00 98.6 21 114/71 (85) 96 04/17/19 11:05 Nasal Cannula 2.0 28 Intake and Output 04/16/19 04/17/19 19:00 07:00 Intake Total 140 ml 500 ml Output Total 1200 ml 1100 ml Balance -1060 ml -600 ml Intake Oral 140 ml 140 ml Other 360 ml Output Urine Total 1200 ml 1100 ml # Voids 2 # Bowel Movements 1 Objective PHYSICAL EXAMINATION: GENERAL: The patient is awake, responsive, no acute distress. HEAD AND NECK: Pupils are equal and reactive to light. Extraocular muscles intact. Neck was supple. No JVD. LUNGS: Non rebreather mask;The patient has expiratory wheezes noted. Tachypneic. No rhonchi was noted. HEART: S1, S2. Irregular. No murmur. The patient has a pacemaker in the left-sided chest wall. ABDOMEN: Soft, nondistended, nontender. Mildly obese. EXTREMITIES: No cyanosis, clubbing, edema. NEUROLOGIC: Cranial nerves II through XII grossly normal. Motor is 5/5 in all extremities. Gait is intact. GENITOURINARY: It was noted the patient has a [place] catheter. RECTAL: Refused and deferred. PSYCHIATRIC: Mood and affect is intact. Assessment/Plan Assessment/Plan ASSESSMENT: 1. Acute hypoxemic respiratory failure, most likely secondary to acute COPD exacerbation. 2. Acute COPD exacerbation. 3. Pneumonia. 4. Sick sinus syndrome status post pacemaker. 5. Diabetes type 2. 6. Prostate cancer. 7. Hyperkalemia. 8. Insulin induced hyperglycemia. 9. Prostate enlargement. 10. Leukocytosis PLAN: 1. Med/Surg. 2. D/C Solu-Medrol IV Per Pulmonary consult=Dr. Obrien. 3. Endocrinology=Dr To. Monitor blood glucose level closely. 4. antibiotic=S/P Levaquin. ID=Dr Villa 5. Code status is Full Code. DVT prophylaxis, he is on Eliquis. Idris Lugo MD Apr 17, 2019 14:09
--- NOTE | 2019-04-17 14:33 | Cardiology Progress Note ---
Assessment/Plan Problem List: (1) Pacemaker (2) Cardiac LV ejection fraction >40% (3) COPD (chronic obstructive pulmonary disease) (4) Respiratory failure with hypoxia (5) RBBB Status: stable, progressing Status Narrative COPD exacerbation s/p pacemaker for sick sinus syndrome ( [facility]- records not available) hx of HTN type II DM Assessment/Plan Continue rx for COPD exacerbation, ? bronchitis, as per primary team Continue telemetry monitoring Will continue apixaban, coreg, as he was taking as outpt, and attempt to obtain records from pt's hospitalization at [facility]. Subjective ROS Limited/Unobtainable: No Subjective Cardiology for Dr. Esquivel Pt dyspneic w/ ambulating in room. Objective Last 24 Hour Vital Signs Date Time Temp Pulse Resp B/P (MAP) Pulse Ox O2 Delivery O2 Flow Rate FiO2 04/17/19 12:00 86 04/17/19 12:00 98.6 94 21 114/71 (85) 96 04/17/19 11:05 103 20 96 Nasal Cannula 2.0 28 101 24 91 04/17/19 10:05 105 129/88 04/17/19 09:00 Nasal Cannula 4.0 04/17/19 08:06 105 20 96 Nasal Cannula 2.0 28 110 24 90 04/17/19 08:05 90 Nasal Cannula 2.0 28 04/17/19 08:00 97.1 97 19 129/88 (102) 97 04/17/19 08:00 97 04/17/19 04:00 73 04/17/19 04:00 98.9 81 22 121/84 (96) 96 04/17/19 01:35 60 18 96 Nasal Cannula 2.0 28 04/17/19 00:14 67 04/17/19 00:00 97.8 82 20 140/86 (104) 95 04/16/19 21:57 79 139/79 04/16/19 21:00 Nasal Cannula 4.0 04/16/19 20:50 96 Nasal Cannula 2.0 28 04/16/19 20:47 63 18 99 Nasal Cannula 2.0 28 60 16 96 04/16/19 20:00 74 04/16/19 20:00 97.7 79 20 139/79 (99) 95 04/16/19 16:00 70 04/16/19 16:00 96.6 66 20 110/74 (86) 98 04/16/19 15:35 68 18 98 Room Air 21 62 16 93 General Appearance: WD/WN, alert, mild distress EENT: PERRL/EOMI Neck: supple, no JVD Rhythm: NSR Cardiovascular: regular rhythm, systolic murmur - i/vi AMANDA Respiratory/Chest: expiratory wheezing, other - tachypneic Abdomen: normal bowel sounds, non tender, soft Extremities: no swelling Intake and Output 04/16/19 04/17/19 19:00 07:00 Intake Total 140 ml 500 ml Output Total 1200 ml 1100 ml Balance -1060 ml -600 ml Intake Oral 140 ml 140 ml Other 360 ml Output Urine Total 1200 ml 1100 ml # Voids 2 # Bowel Movements 1 Sivan Johnson MD Apr 17, 2019 14:33
[2019-04-17] MEDS ORDERED: Albuterol/Ipratropium 3ml neb HHN PRN (15:30)
[2019-04-17 16:00] VITALS: BP 123/57
[2019-04-17 20:00] VITALS: BP 135/60
[2019-04-17] MEDS: Promethazine/Codeine 5ml UD ORAL PRN (20:46)
[2019-04-17] MEDS: Levemir Flexpen SUBQ SCH (20:50)
[2019-04-17] MEDS: Tamsulosin 0.4mg cap ORAL SCH (20:52)
[2019-04-18 04:00] VITALS: BP 111/79
[2019-04-18] MEDS: HYDROcodone/Acetamin 5/325 tab ORAL PRN ×2 (06:01→13:29)
[2019-04-18] MEDS: NovoLOG Insulin Flexpen SUBQ SCH ×7 (06:07→21:00)
[2019-04-18] MEDS: Albuterol/Ipratropium 3ml neb INH SCH ×4 (07:49→19:31)
[2019-04-18 08:00] VITALS: BP 111/58
[2019-04-18 08:30] LABS: BASOPHILS % (AUTO) 1.3 % (0.0-2.0); EOSINOPHILS % (AUTO) 1.9 % (0.0-3.0); HEMATOCRIT 45.9 % (42.0-52.0); LYMPHOCYTES % (AUTO) 25.4 % (20.0-45.0); MEAN CORPUSCULAR VOLUME 90 FL (80-99); MONOCYTES % (AUTO) 6.3 % (1.0-10.0); NEUTROPHILS % (AUTO) 65.1 % (45.0-75.0); PLATELET COUNT 275 K/UL (150-450); RED BLOOD COUNT 5.12 M/UL (4.70-6.10); RED CELL DISTRIBUTION WIDTH 14.2 % (11.6-14.8); WHITE BLOOD COUNT 11.9 K/UL (4.8-10.8)
[2019-04-18 08:41] LABS: ANION GAP 7 mmol/L (5-15); BLOOD UREA NITROGEN 33 mg/dL (7-18); CALCIUM 8.4 MG/DL (8.5-10.1); CARBON DIOXIDE 28 MMOL/L (21-32); CHLORIDE 100 MMOL/L (98-107); CREATININE 1.1 MG/DL (0.55-1.30); POTASSIUM 4.5 MMOL/L (3.5-5.1); SODIUM 135 MMOL/L (136-145)
[2019-04-18] MEDS: Carvedilol 6.25mg Tab ORAL SCH ×2 (09:34→21:37)
[2019-04-18] MEDS: Eliquis 5mg tablet ORAL SCH ×2 (09:35→17:33)
--- NOTE | 2019-04-18 09:36 | General Progress Note ---
Assessment/Plan Problem List: (1) COPD exacerbation ICD Codes: J44.1 - Chronic obstructive pulmonary disease with (acute) exacerbation SNOMED: 583808970 (2) Respiratory failure with hypoxia ICD Codes: J96.91 - Respiratory failure, unspecified with hypoxia SNOMED: 60421365846821949 (3) Diabetes mellitus ICD Codes: E11.9 - Type 2 diabetes mellitus without complications SNOMED: 10421078 (4) Pacemaker ICD Codes: Z95.0 - Presence of cardiac pacemaker SNOMED: 216691952 (5) Prostate cancer ICD Codes: C61 - Malignant neoplasm of prostate SNOMED: 034095198 (6) Hypothyroid ICD Codes: E03.9 - Hypothyroidism, unspecified SNOMED: 38420570 Status: stable, progressing Assessment/Plan: continue Levemir 16 units qhs continue Novolog 10 units ac tid continue NISS ac / hs Subjective Allergies: Coded Allergies: No Known Allergies (Unverified , 10/24/16) All Systems: reviewed and negative except above Subjective events noted glucose values are in a better range complaining about food Item Value Date Time Bedside Blood Glucose 182 mg/dl H 04/18/19 0633 Bedside Blood Glucose 154 mg/dl H 04/17/19 2100 Bedside Blood Glucose 132 mg/dl H 04/17/19 1722 Bedside Blood Glucose 200 mg/dl H 04/17/19 1202 Bedside Blood Glucose 147 mg/dl H 04/17/19 0641 Objective Last 24 Hour Vital Signs Date Time Temp Pulse Resp B/P (MAP) Pulse Ox O2 Delivery O2 Flow Rate FiO2 04/18/19 08:00 98.1 77 21 111/58 (75) 93 04/18/19 07:50 86 24 98 Nasal Cannula 2.0 28 72 24 91 04/18/19 07:49 91 Room Air 21 04/18/19 04:00 74 04/18/19 04:00 97.7 74 20 111/79 (90) 96 04/18/19 00:00 75 04/17/19 21:00 Nasal Cannula 4.0 04/17/19 20:53 86 131/94 04/17/19 20:00 85 04/17/19 20:00 98.3 80 19 135/60 (85) 96 04/17/19 19:21 95 20 97 Nasal Cannula 2.0 28 92 24 93 04/17/19 19:21 93 Nasal Cannula 2.0 28 04/17/19 16:00 85 04/17/19 16:00 97.3 79 19 123/57 (79) 95 04/17/19 15:35 76 20 98 Nasal Cannula 2.0 28 69 24 90 04/17/19 12:00 86 04/17/19 12:00 98.6 94 21 114/71 (85) 96 04/17/19 11:05 103 20 96 Nasal Cannula 2.0 28 101 24 91 04/17/19 10:05 105 129/88 Intake and Output 04/17/19 04/18/19 19:00 07:00 Intake Total 1200 ml Output Total 800 ml 1400 ml Balance 400 ml -1400 ml Intake Oral 1200 ml Output Urine Total 800 ml 1400 ml # Bowel Movements 2 1 Laboratory Tests 04/18/19 06:25: White Blood Count 11.9H, Red Blood Count 5.12, Hemoglobin 15.0, Hematocrit 45.9 , Mean Corpuscular Volume 90, Mean Corpuscular Hemoglobin 29.2, Mean Corpuscular Hemoglobin Concent 32.6, Red Cell Distribution Width 14.2, Platelet Count 275, Mean Platelet Volume 6.4L, Neutrophils (%) (Auto) 65.1, Lymphocytes ( %) (Auto) 25.4, Monocytes (%) (Auto) 6.3, Eosinophils (%) (Auto) 1.9, Basophils (%) (Auto) 1.3, Sodium Level 135L, Potassium Level 4.5, Chloride Level 100, Carbon Dioxide Level 28, Anion Gap 7, Blood Urea Nitrogen 33H, Creatinine 1.1, Estimat Glomerular Filtration Rate , Glucose Level 218H, Calcium Level 8.4L Height (Feet): 6 Height (Inches): 0.00 Weight (Pounds): 195 General Appearance: no apparent distress Neck: normal alignment Cardiovascular: normal rate Respiratory/Chest: lungs clear Abdomen: normal bowel sounds Pelvis: normal external exam Edema: no edema noted Arm (L), no edema noted Arm (R), no edema noted Leg (L), no edema noted Leg (R), no edema noted Pedal (L), no edema noted Pedal (R), no edema noted Generalized Objective Current Medications Medications (Trade) Dose Ordered Sig/Dejon Route PRN Reason Start Time Stop Time Status Last Admin Dose Admin Acetaminophen (Tylenol) 650 mg Q4H PRN ORAL fever 04/15/19 03:48 05/08/19 03:47 04/17/19 03:43 Acetaminophen/ Hydrocodone Bitart ([place] 5/325) 1 tab Q6H PRN ORAL Severe Pain (Pain Scale 7-10) 04/17/19 10:00 04/24/19 09:59 04/18/19 06:01 Albuterol/ Ipratropium (Albuterol/ Ipratropium) 3 ml Q4H PRN HHN Shortness of Breath 04/17/19 15:30 04/21/19 23:29 Albuterol/ Ipratropium (Albuterol/ Ipratropium) 3 ml QIDRT INH 04/17/19 15:00 04/21/19 22:59 04/18/19 07:49 Apixaban (Eliquis) 5 mg BID ORAL 04/15/19 09:00 05/09/19 08:59 04/17/19 17:21 Carvedilol (Coreg) 6.25 mg EVERY 12 HOURS ORAL 04/15/19 09:00 05/09/19 08:59 04/17/19 20:53 Clonidine HCl (Catapres Tab) 0.1 mg Q4H PRN ORAL sbp more than 160 04/15/19 03:49 05/08/19 03:48 Dextrose (Dextrose 50%) 25 ml Q30M PRN IV Hypoglycemia 04/15/19 03:30 05/09/19 07:29 Dextrose (Dextrose 50%) 50 ml Q30M PRN IV Hypoglycemia 04/15/19 03:30 05/09/19 07:29 Insulin Aspart (NovoLOG) BEFORE MEALS AND HS SUBQ 04/15/19 06:30 05/09/19 13:29 04/18/19 06:07 Insulin Aspart (NovoLOG) 10 units NOVOTIAC SUBQ 04/16/19 07:30 05/10/19 07:29 04/18/19 06:07 Insulin Detemir (Levemir) 16 units BEDTIME SUBQ 04/16/19 21:00 05/09/19 20:59 04/17/19 20:50 Levothyroxine Sodium (Synthroid) 150 mcg ACBREAKFAST ORAL 04/15/19 06:30 05/09/19 06:29 04/18/19 06:02 Nitroglycerin (Ntg) 0.4 mg Q5M X 3 DOSES PRN SL Prn Chest Pain 04/15/19 03:15 05/08/19 21:29 Ondansetron HCl (Zofran) 4 mg Q6H PRN IVP Nausea & Vomiting 04/15/19 03:55 05/08/19 03:54 Promethazine HCl/ Codeine (Phenergan with Codeine) 5 ml Q6H PRN ORAL cough 04/15/19 03:55 05/08/19 03:54 04/17/19 20:46 Tamsulosin HCl (Flomax) 0.4 mg BEDTIME ORAL 04/15/19 21:00 05/09/19 20:59 04/17/19 20:52 Geovanni To MD Apr 18, 2019 09:36
--- NOTE | 2019-04-18 10:36 | Pulmonology Progress Note ---
Assessment/Plan Assessment/Plan ASSESSMENT Acute hypoxemic respiratory failure requiring BiPAP , likely secondary to COPD exacerbation -resolved Acute COPD exacerbation Pneumonia SSS, status post pacemaker Diabetes mellitus type 2 Prostate cancer Hypothyroidism, status post thyroidectomy for thyroid cancer. BPH Acute kidney injury- resolved History of smoking ( quit 2 yrs ago) Anxiety PLAN OF CARE tele all troponin negative cardio follows, per cardio- CV status remains stable O2 titrate to keep pulse ox >92%, HHN ATC and prn , pulse ox stable on 2 L o2 via NC fup with CXR in am steroids tapered due to KAYLAN, restarted oral steroids given significant wheezing , also tapered abx as per ID, completed,. monitor off abx leukocytosis trending down a/tussive as needed SCX if able BS management with the SSRI, [id number] continue Flomax avoid nephrotoxic , monitor renal parameters, electrolytes, correct electrolytes as needed, acute kidney injury resolved PT eval and Rx lots of anxiety, crying - consider psych eval per primary team case discussed and evaluated by supervising physician Subjective Allergies: Coded Allergies: No Known Allergies (Unverified , 10/24/16) All Systems: reviewed and negative except above Subjective on tele low tachy resolved cardio follows no SOB, leuk trending down anxious Objective Last 24 Hour Vital Signs Date Time Temp Pulse Resp B/P (MAP) Pulse Ox O2 Delivery O2 Flow Rate FiO2 04/18/19 09:34 77 111/58 04/18/19 09:00 Nasal Cannula 4.0 04/18/19 08:00 98.1 77 21 111/58 (75) 93 04/18/19 07:50 86 24 98 Nasal Cannula 2.0 28 72 24 91 04/18/19 07:49 91 Room Air 21 04/18/19 04:00 74 04/18/19 04:00 97.7 74 20 111/79 (90) 96 04/18/19 00:00 75 04/17/19 21:00 Nasal Cannula 4.0 04/17/19 20:53 86 131/94 04/17/19 20:00 85 04/17/19 20:00 98.3 80 19 135/60 (85) 96 04/17/19 19:21 95 20 97 Nasal Cannula 2.0 28 92 24 93 04/17/19 19:21 93 Nasal Cannula 2.0 28 2/8/20 16:00 85 04/17/19 16:00 97.3 79 19 123/57 (79) 95 04/17/19 15:35 76 20 98 Nasal Cannula 2.0 28 69 24 90 04/17/19 12:00 86 04/17/19 12:00 98.6 94 21 114/71 (85) 96 04/17/19 11:05 103 20 96 Nasal Cannula 2.0 28 101 24 91 Intake and Output 04/17/19 04/18/19 19:00 07:00 Intake Total 1200 ml Output Total 800 ml 1400 ml Balance 400 ml -1400 ml Intake Oral 1200 ml Output Urine Total 800 ml 1400 ml # Bowel Movements 2 1 Objective General Appearance: no acute distress A/A/O AA male, anxious HEENT: normocephalic, atraumatic, anicteric, mucous membranes moist Respiratory/Chest: no respiratory distress, no accessory muscle use, few expiratory wheezes Cardiovascular: normal peripheral pulses, regular rate Abdomen: normal bowel sounds, soft, non tender Extremities: no edema, pedal pulses normal Neurologic/Psychiatric: alert, oriented x 3, responsive Musculoskeletal: normal muscle bulk Laboratory Tests 04/18/19 06:25: White Blood Count 11.9H, Red Blood Count 5.12, Hemoglobin 15.0, Hematocrit 45.9 , Mean Corpuscular Volume 90, Mean Corpuscular Hemoglobin 29.2, Mean Corpuscular Hemoglobin Concent 32.6, Red Cell Distribution Width 14.2, Platelet Count 275, Mean Platelet Volume 6.4L, Neutrophils (%) (Auto) 65.1, Lymphocytes ( %) (Auto) 25.4, Monocytes (%) (Auto) 6.3, Eosinophils (%) (Auto) 1.9, Basophils (%) (Auto) 1.3, Sodium Level 135L, Potassium Level 4.5, Chloride Level 100, Carbon Dioxide Level 28, Anion Gap 7, Blood Urea Nitrogen 33H, Creatinine 1.1, Estimat Glomerular Filtration Rate , Glucose Level 218H, Calcium Level 8.4L Current Medications Medications (Trade) Dose Ordered Sig/Dejon Route PRN Reason Start Time Stop Time Status Last Admin Dose Admin Acetaminophen (Tylenol) 650 mg Q4H PRN ORAL fever 04/15/19 03:48 05/08/19 03:47 04/18/19 09:35 Acetaminophen/ Hydrocodone Bitart ([place] 5/325) 1 tab Q6H PRN ORAL Severe Pain (Pain Scale 7-10) 04/17/19 10:00 04/24/19 09:59 04/18/19 06:01 Albuterol/ Ipratropium (Albuterol/ Ipratropium) 3 ml Q4H PRN HHN Shortness of Breath 04/17/19 15:30 04/21/19 23:29 Albuterol/ Ipratropium (Albuterol/ Ipratropium) 3 ml QIDRT INH 04/17/19 15:00 04/21/19 22:59 04/18/19 07:49 Apixaban (Eliquis) 5 mg BID ORAL 04/15/19 09:00 05/09/19 08:59 04/18/19 09:35 Carvedilol (Coreg) 6.25 mg EVERY 12 HOURS ORAL 04/15/19 09:00 05/09/19 08:59 04/18/19 09:34 Clonidine HCl (Catapres Tab) 0.1 mg Q4H PRN ORAL sbp more than 160 04/15/19 03:49 05/08/19 03:48 Dextrose (Dextrose 50%) 25 ml Q30M PRN IV Hypoglycemia 04/15/19 03:30 05/09/19 07:29 Dextrose (Dextrose 50%) 50 ml Q30M PRN IV Hypoglycemia 04/15/19 03:30 05/09/19 07:29 Insulin Aspart (NovoLOG) BEFORE MEALS AND HS SUBQ 04/15/19 06:30 05/09/19 13:29 04/18/19 06:07 Insulin Aspart (NovoLOG) 10 units NOVOTIAC SUBQ 04/16/19 07:30 05/10/19 07:29 04/18/19 06:07 Insulin Detemir (Levemir) 16 units BEDTIME SUBQ 04/16/19 21:00 05/09/19 20:59 04/17/19 20:50 Levothyroxine Sodium (Synthroid) 150 mcg ACBREAKFAST ORAL 04/15/19 06:30 05/09/19 06:29 04/18/19 06:02 Nitroglycerin (Ntg) 0.4 mg Q5M X 3 DOSES PRN SL Prn Chest Pain 04/15/19 03:15 05/08/19 21:29 Ondansetron HCl (Zofran) 4 mg Q6H PRN IVP Nausea & Vomiting 04/15/19 03:55 05/08/19 03:54 Promethazine HCl/ Codeine (Phenergan with Codeine) 5 ml Q6H PRN ORAL cough 04/15/19 03:55 05/08/19 03:54 04/17/19 20:46 Tamsulosin HCl (Flomax) 0.4 mg BEDTIME ORAL 04/15/19 21:00 05/09/19 20:59 04/17/19 20:52 Karen Lira [employer] Apr 18, 2019 10:36
[2019-04-18 12:00] VITALS: BP 103/74
--- NOTE | 2019-04-18 13:12 | Internal Med Progress Note ---
Subjective Date of Service: Apr 18, 2019 Physician Name Idris Lugo Attending Physician Jewel Giraldo MD Current Medications Medications (Trade) Dose Ordered Sig/Dejon Route PRN Reason Start Time Stop Time Status Last Admin Dose Admin Acetaminophen (Tylenol) 650 mg Q4H PRN ORAL fever 04/15/19 03:48 05/08/19 03:47 04/18/19 09:35 Acetaminophen/ Hydrocodone Bitart ([place] 5/325) 1 tab Q6H PRN ORAL Severe Pain (Pain Scale 7-10) 04/17/19 10:00 04/24/19 09:59 04/18/19 06:01 Albuterol/ Ipratropium (Albuterol/ Ipratropium) 3 ml Q4H PRN HHN Shortness of Breath 04/17/19 15:30 04/21/19 23:29 Albuterol/ Ipratropium (Albuterol/ Ipratropium) 3 ml QIDRT INH 04/17/19 15:00 04/21/19 22:59 04/18/19 11:19 Apixaban (Eliquis) 5 mg BID ORAL 04/15/19 09:00 05/09/19 08:59 04/18/19 09:35 Carvedilol (Coreg) 6.25 mg EVERY 12 HOURS ORAL 04/15/19 09:00 05/09/19 08:59 04/18/19 09:34 Clonidine HCl (Catapres Tab) 0.1 mg Q4H PRN ORAL sbp more than 160 04/15/19 03:49 05/08/19 03:48 Dextrose (Dextrose 50%) 25 ml Q30M PRN IV Hypoglycemia 04/15/19 03:30 05/09/19 07:29 Dextrose (Dextrose 50%) 50 ml Q30M PRN IV Hypoglycemia 04/15/19 03:30 05/09/19 07:29 Insulin Aspart (NovoLOG) BEFORE MEALS AND HS SUBQ 04/15/19 06:30 05/09/19 13:29 04/18/19 12:23 Insulin Aspart (NovoLOG) 10 units NOVOTIAC SUBQ 04/16/19 07:30 05/10/19 07:29 04/18/19 12:24 Insulin Detemir (Levemir) 16 units BEDTIME SUBQ 04/16/19 21:00 05/09/19 20:59 04/17/19 20:50 Levothyroxine Sodium (Synthroid) 150 mcg ACBREAKFAST ORAL 04/15/19 06:30 05/09/19 06:29 04/18/19 06:02 Nitroglycerin (Ntg) 0.4 mg Q5M X 3 DOSES PRN SL Prn Chest Pain 04/15/19 03:15 05/08/19 21:29 Ondansetron HCl (Zofran) 4 mg Q6H PRN IVP Nausea & Vomiting 04/15/19 03:55 05/08/19 03:54 Promethazine HCl/ Codeine (Phenergan with Codeine) 5 ml Q6H PRN ORAL cough 04/15/19 03:55 05/08/19 03:54 04/17/19 20:46 Tamsulosin HCl (Flomax) 0.4 mg BEDTIME ORAL 04/15/19 21:00 05/09/19 20:59 04/17/19 20:52 Allergies: Coded Allergies: No Known Allergies (Unverified , 10/24/16) ROS Limited/Unobtainable: No Constitutional: Reports: no symptoms HEENT: Reports: no symptoms Cardiovascular: Reports: no symptoms Respiratory: Reports: no symptoms Gastrointestinal/Abdominal: Reports: no symptoms Genitourinary: Reports: no symptoms Neurologic/Psychiatric: Reports: no symptoms Subjective 73 YO M admitted with COPD exacerbation. Now respiratory failure. Cover for Int Bubba-DR Giraldo. Objective Last Vital Signs Date Time Temp Pulse Resp B/P (MAP) Pulse Ox O2 Delivery O2 Flow Rate FiO2 04/18/19 12:00 98.8 76 18 103/74 (84) 99 04/18/19 11:24 Nasal Cannula 2.0 28 Laboratory Tests Test 04/18/19 06:25 White Blood Count 11.9 K/UL (4.8-10.8) H Red Blood Count 5.12 M/UL (4.70-6.10) Hemoglobin 15.0 G/DL (14.2-18.0) Hematocrit 45.9 % (42.0-52.0) Mean Corpuscular Volume 90 FL (80-99) Mean Corpuscular Hemoglobin 29.2 PG (27.0-31.0) Mean Corpuscular Hemoglobin Concent 32.6 G/DL (32.0-36.0) Red Cell Distribution Width 14.2 % (11.6-14.8) Platelet Count 275 K/UL (150-450) Mean Platelet Volume 6.4 FL (6.5-10.1) L Neutrophils (%) (Auto) 65.1 % (45.0-75.0) Lymphocytes (%) (Auto) 25.4 % (20.0-45.0) Monocytes (%) (Auto) 6.3 % (1.0-10.0) Eosinophils (%) (Auto) 1.9 % (0.0-3.0) Basophils (%) (Auto) 1.3 % (0.0-2.0) Sodium Level 135 MMOL/L (136-145) L Potassium Level 4.5 MMOL/L (3.5-5.1) Chloride Level 100 MMOL/L (98-107) Carbon Dioxide Level 28 MMOL/L (21-32) Anion Gap 7 mmol/L (5-15) Blood Urea Nitrogen 33 mg/dL (7-18) H Creatinine 1.1 MG/DL (0.55-1.30) Estimat Glomerular Filtration Rate mL/min (>60) Glucose Level 218 MG/DL (74-106) H Calcium Level 8.4 MG/DL (8.5-10.1) L Intake and Output 04/17/19 04/18/19 19:00 07:00 Intake Total 1200 ml Output Total 800 ml 1400 ml Balance 400 ml -1400 ml Intake Oral 1200 ml Output Urine Total 800 ml 1400 ml # Bowel Movements 2 1 Objective PHYSICAL EXAMINATION: GENERAL: The patient is awake, responsive, no acute distress. HEAD AND NECK: Pupils are equal and reactive to light. Extraocular muscles intact. Neck was supple. No JVD. LUNGS: Non rebreather mask;The patient has expiratory wheezes noted. Tachypneic. No rhonchi was noted. HEART: S1, S2. Irregular. No murmur. The patient has a pacemaker in the left-sided chest wall. ABDOMEN: Soft, nondistended, nontender. Mildly obese. EXTREMITIES: No cyanosis, clubbing, edema. NEUROLOGIC: Cranial nerves II through XII grossly normal. Motor is 5/5 in all extremities. Gait is intact. GENITOURINARY: It was noted the patient has a [place] catheter. RECTAL: Refused and deferred. PSYCHIATRIC: Mood and affect is intact. Assessment/Plan Assessment/Plan ASSESSMENT: 1. Acute hypoxemic respiratory failure, most likely secondary to acute COPD exacerbation. 2. Acute COPD exacerbation. 3. Pneumonia. 4. Sick sinus syndrome status post pacemaker. 5. Diabetes type 2. 6. Prostate cancer. 7. Hyperkalemia. 8. Insulin induced hyperglycemia. 9. Prostate enlargement. 10. Leukocytosis 11. RBBB PLAN: 1. Med/Surg. 2. D/C Solu-Medrol IV Per Pulmonary consult=Dr. Obrien. 3. Endocrinology=Dr To. Monitor blood glucose level closely. 4. antibiotic=S/P Levaquin. ID=Dr Villa 5. Code status is Full Code. DVT prophylaxis, he is on Eliquis. Idris Lugo MD Apr 18, 2019 13:12
--- NOTE | 2019-04-18 14:23 | Cardiology Progress Note ---
Assessment/Plan Problem List: (1) Pacemaker (2) Cardiac LV ejection fraction >40% (3) COPD (chronic obstructive pulmonary disease) (4) Respiratory failure with hypoxia (5) RBBB Status: stable, progressing Status Narrative COPD exacerbation - improving resp status s/p pacemaker for sick sinus syndrome ( [facility]- records not available) hx of HTN type II DM Assessment/Plan Continue rx for COPD exacerbation, ? bronchitis, as per primary team. Steroids dc d Can dc telemetry Will continue apixaban, coreg, as he was taking as outpt - likely for PAF . Obtain records from pt's hospitalization at [facility]- requested on 04/17 Subjective ROS Limited/Unobtainable: No Subjective Cardiology for Dr. Esquivel Pt dyspneic w/ ambulating in room. c/o L shoulder pain , inc w/ movement. No change in exertional dyspnea Objective Last 24 Hour Vital Signs Date Time Temp Pulse Resp B/P (MAP) Pulse Ox O2 Delivery O2 Flow Rate FiO2 04/18/19 12:00 76 04/18/19 12:00 98.8 76 18 103/74 (84) 99 04/18/19 11:24 71 22 98 Nasal Cannula 2.0 28 69 20 96 04/18/19 10:00 24 04/18/19 09:34 77 111/58 04/18/19 09:00 Nasal Cannula 4.0 04/18/19 08:00 98.1 77 21 111/58 (75) 93 04/18/19 07:50 86 24 98 Nasal Cannula 2.0 28 72 24 91 04/18/19 07:49 91 Room Air 21 04/18/19 04:00 74 04/18/19 04:00 97.7 74 20 111/79 (90) 96 04/18/19 00:00 75 04/17/19 21:00 Nasal Cannula 4.0 04/17/19 20:53 86 131/94 04/17/19 20:00 85 04/17/19 20:00 98.3 80 19 135/60 (85) 96 04/17/19 19:21 95 20 97 Nasal Cannula 2.0 28 92 24 93 04/17/19 19:21 93 Nasal Cannula 2.0 28 04/17/19 16:00 85 04/17/19 16:00 97.3 79 19 123/57 (79) 95 04/17/19 15:35 76 20 98 Nasal Cannula 2.0 28 69 24 90 General Appearance: WD/WN, no apparent distress, alert EENT: PERRL/EOMI Neck: supple, no JVD Rhythm: NSR Cardiovascular: normal rate, regular rhythm, other - Respiratory/Chest: other - bilat scattered rhonchi Abdomen: normal bowel sounds, non tender Extremities: no swelling Intake and Output 04/17/19 04/18/19 19:00 07:00 Intake Total 1200 ml Output Total 800 ml 1400 ml Balance 400 ml -1400 ml Intake Oral 1200 ml Output Urine Total 800 ml 1400 ml # Bowel Movements 2 1 Laboratory Tests Test 04/18/19 06:25 White Blood Count 11.9 K/UL (4.8-10.8) H Red Blood Count 5.12 M/UL (4.70-6.10) Hemoglobin 15.0 G/DL (14.2-18.0) Hematocrit 45.9 % (42.0-52.0) Mean Corpuscular Volume 90 FL (80-99) Mean Corpuscular Hemoglobin 29.2 PG (27.0-31.0) Mean Corpuscular Hemoglobin Concent 32.6 G/DL (32.0-36.0) Red Cell Distribution Width 14.2 % (11.6-14.8) Platelet Count 275 K/UL (150-450) Mean Platelet Volume 6.4 FL (6.5-10.1) L Neutrophils (%) (Auto) 65.1 % (45.0-75.0) Lymphocytes (%) (Auto) 25.4 % (20.0-45.0) Monocytes (%) (Auto) 6.3 % (1.0-10.0) Eosinophils (%) (Auto) 1.9 % (0.0-3.0) Basophils (%) (Auto) 1.3 % (0.0-2.0) Sodium Level 135 MMOL/L (136-145) L Potassium Level 4.5 MMOL/L (3.5-5.1) Chloride Level 100 MMOL/L (98-107) Carbon Dioxide Level 28 MMOL/L (21-32) Anion Gap 7 mmol/L (5-15) Blood Urea Nitrogen 33 mg/dL (7-18) H Creatinine 1.1 MG/DL (0.55-1.30) Estimat Glomerular Filtration Rate mL/min (>60) Glucose Level 218 MG/DL (74-106) H Calcium Level 8.4 MG/DL (8.5-10.1) Sivan Hutton MD Apr 18, 2019 14:23
[2019-04-18 16:00] VITALS: BP 120/70
[2019-04-18 20:00] VITALS: BP 135/82
[2019-04-18] MEDS: Tamsulosin 0.4mg cap ORAL SCH (21:37)
[2019-04-18] MEDS: Levemir Flexpen SUBQ SCH (21:38)
[2019-04-19] MEDS: HYDROcodone/Acetamin 5/325 tab ORAL PRN ×2 (00:54→17:11)
--- NOTE | 2019-04-19 06:01 | General Progress Note ---
Assessment/Plan Problem List: (1) COPD exacerbation ICD Codes: J44.1 - Chronic obstructive pulmonary disease with (acute) exacerbation SNOMED: 486449922 (2) Respiratory failure with hypoxia ICD Codes: J96.91 - Respiratory failure, unspecified with hypoxia SNOMED: 93704355556098694 (3) Diabetes mellitus ICD Codes: E11.9 - Type 2 diabetes mellitus without complications SNOMED: 70214434 (4) Pacemaker ICD Codes: Z95.0 - Presence of cardiac pacemaker SNOMED: 638265109 (5) Prostate cancer ICD Codes: C61 - Malignant neoplasm of prostate SNOMED: 915446304 (6) Hypothyroid ICD Codes: E03.9 - Hypothyroidism, unspecified SNOMED: 56137182 Status: stable, progressing Assessment/Plan: continue Levemir 16 units qhs continue Novolog 10 units ac tid continue NISS ac / hs Subjective Allergies: Coded Allergies: No Known Allergies (Unverified , 10/24/16) All Systems: reviewed and negative except above Subjective events noted glucose values improved Item Value Date Time Bedside Blood Glucose 114 mg/dl 04/18/19 2138 Bedside Blood Glucose 177 mg/dl H 04/18/19 1736 Bedside Blood Glucose 223 mg/dl H 04/18/19 1224 Bedside Blood Glucose 182 mg/dl H 04/18/19 0633 Objective Last 24 Hour Vital Signs Date Time Temp Pulse Resp B/P (MAP) Pulse Ox O2 Delivery O2 Flow Rate FiO2 04/19/19 04:00 72 04/19/19 00:00 73 04/18/19 21:37 86 135/90 04/18/19 21:00 78 04/18/19 21:00 Nasal Cannula 4.0 04/18/19 20:00 98.2 80 20 135/82 (99) 96 04/18/19 19:34 95 Nasal Cannula 2.0 28 04/18/19 19:31 89 20 99 Nasal Cannula 2.0 28 92 20 95 04/18/19 16:00 97.6 75 16 120/70 (87) 96 04/18/19 16:00 75 04/18/19 15:11 68 20 98 Nasal Cannula 2.0 28 70 20 96 04/18/19 12:00 76 04/18/19 12:00 98.8 76 18 103/74 (84) 99 04/18/19 11:24 71 22 98 Nasal Cannula 2.0 28 69 20 96 04/18/19 10:00 24 04/18/19 09:34 77 111/58 04/18/19 09:00 Nasal Cannula 4.0 04/18/19 08:00 98.1 77 21 111/58 (75) 93 04/18/19 07:50 86 24 98 Nasal Cannula 2.0 28 72 24 91 04/18/19 07:49 91 Room Air 21 Intake and Output 04/18/19 04/19/19 19:00 07:00 Intake Total 800 ml Output Total 1400 ml Balance -600 ml Intake Oral 800 ml Output Urine Total 1400 ml Laboratory Tests 04/18/19 06:25: White Blood Count 11.9H, Red Blood Count 5.12, Hemoglobin 15.0, Hematocrit 45.9 , Mean Corpuscular Volume 90, Mean Corpuscular Hemoglobin 29.2, Mean Corpuscular Hemoglobin Concent 32.6, Red Cell Distribution Width 14.2, Platelet Count 275, Mean Platelet Volume 6.4L, Neutrophils (%) (Auto) 65.1, Lymphocytes ( %) (Auto) 25.4, Monocytes (%) (Auto) 6.3, Eosinophils (%) (Auto) 1.9, Basophils (%) (Auto) 1.3, Sodium Level 135L, Potassium Level 4.5, Chloride Level 100, Carbon Dioxide Level 28, Anion Gap 7, Blood Urea Nitrogen 33H, Creatinine 1.1, Estimat Glomerular Filtration Rate , Glucose Level 218H, Calcium Level 8.4L Height (Feet): 6 Height (Inches): 0.00 Weight (Pounds): 195 General Appearance: no apparent distress Neck: normal alignment Cardiovascular: normal rate Respiratory/Chest: crackles/rales Abdomen: normal bowel sounds Pelvis: normal external exam Objective Current Medications Medications (Trade) Dose Ordered Sig/Dejon Route PRN Reason Start Time Stop Time Status Last Admin Dose Admin Acetaminophen (Tylenol) 650 mg Q4H PRN ORAL fever 04/15/19 03:48 05/08/19 03:47 04/18/19 09:35 Acetaminophen/ Hydrocodone Bitart ([place] 5/325) 1 tab Q6H PRN ORAL Severe Pain (Pain Scale 7-10) 04/17/19 10:00 04/24/19 09:59 04/19/19 00:54 Albuterol/ Ipratropium (Albuterol/ Ipratropium) 3 ml Q4H PRN HHN Shortness of Breath 04/17/19 15:30 04/21/19 23:29 Albuterol/ Ipratropium (Albuterol/ Ipratropium) 3 ml QIDRT INH 04/17/19 15:00 04/21/19 22:59 04/18/19 19:31 Apixaban (Eliquis) 5 mg BID ORAL 04/15/19 09:00 05/09/19 08:59 04/18/19 17:33 Carvedilol (Coreg) 6.25 mg EVERY 12 HOURS ORAL 04/15/19 09:00 05/09/19 08:59 04/18/19 21:37 Clonidine HCl (Catapres Tab) 0.1 mg Q4H PRN ORAL sbp more than 160 04/15/19 03:49 05/08/19 03:48 Dextrose (Dextrose 50%) 25 ml Q30M PRN IV Hypoglycemia 04/15/19 03:30 05/09/19 07:29 Dextrose (Dextrose 50%) 50 ml Q30M PRN IV Hypoglycemia 04/15/19 03:30 05/09/19 07:29 Insulin Aspart (NovoLOG) BEFORE MEALS AND HS SUBQ 04/15/19 06:30 05/09/19 13:29 04/18/19 17:36 Insulin Aspart (NovoLOG) 10 units NOVOTIAC SUBQ 04/16/19 07:30 05/10/19 07:29 04/18/19 17:36 Insulin Detemir (Levemir) 16 units BEDTIME SUBQ 04/16/19 21:00 05/09/19 20:59 04/18/19 21:38 Levothyroxine Sodium (Synthroid) 150 mcg ACBREAKFAST ORAL 04/15/19 06:30 05/09/19 06:29 04/18/19 06:02 Nitroglycerin (Ntg) 0.4 mg Q5M X 3 DOSES PRN SL Prn Chest Pain 04/15/19 03:15 05/08/19 21:29 Ondansetron HCl (Zofran) 4 mg Q6H PRN IVP Nausea & Vomiting 04/15/19 03:55 05/08/19 03:54 Promethazine HCl/ Codeine (Phenergan with Codeine) 5 ml Q6H PRN ORAL cough 04/15/19 03:55 05/08/19 03:54 04/17/19 20:46 Tamsulosin HCl (Flomax) 0.4 mg BEDTIME ORAL 04/15/19 21:00 05/09/19 20:59 04/18/19 21:37 Geovanni To MD Apr 19, 2019 06:01
[2019-04-19] MEDS: NovoLOG Insulin Flexpen SUBQ SCH ×7 (06:30→21:08)
[2019-04-19] MEDS: Albuterol/Ipratropium 3ml neb INH SCH ×4 (07:00→19:14)
[2019-04-19 08:00] VITALS: BP 113/74
[2019-04-19] MEDS: Carvedilol 6.25mg Tab ORAL SCH ×2 (08:52→21:00)
[2019-04-19] MEDS: Eliquis 5mg tablet ORAL SCH ×2 (08:52→17:11)
[2019-04-19 10:39] LABS: BASOPHILS % (AUTO) 1.9 % (0.0-2.0); HEMATOCRIT 46.5 % (42.0-52.0); HEMOGLOBIN 15.2 G/DL (14.2-18.0); LYMPHOCYTES % (AUTO) 24.3 % (20.0-45.0); MEAN CORPUSCULAR VOLUME 89 FL (80-99); MONOCYTES % (AUTO) 3.4 % (1.0-10.0); NEUTROPHILS % (AUTO) 67.4 % (45.0-75.0); PLATELET COUNT 250 K/UL (150-450); RED BLOOD COUNT 5.21 M/UL (4.70-6.10); WHITE BLOOD COUNT 11.4 K/UL (4.8-10.8)
[2019-04-19 10:54] LABS: ANION GAP 6 mmol/L (5-15); BLOOD UREA NITROGEN 28 mg/dL (7-18); CALCIUM 8.8 MG/DL (8.5-10.1); CARBON DIOXIDE 29 MMOL/L (21-32); CHLORIDE 99 MMOL/L (98-107); CREATININE 1.1 MG/DL (0.55-1.30); POTASSIUM 4.9 MMOL/L (3.5-5.1); SODIUM 134 MMOL/L (136-145)
--- NOTE | 2019-04-19 11:27 | Pulmonology Progress Note ---
Assessment/Plan Problems: (1) Respiratory failure with hypoxia (2) COPD exacerbation (3) Pneumonia (4) Pacemaker (5) Diabetes mellitus (6) Prostate cancer Assessment/Plan wbc still high, after stopping steroids still short of breath coughing phlegm sliding scale diabetic diet taper down steroids cardio note reviewed. Subjective ROS Limited/Unobtainable: No Interval Events: still short of breath Allergies: Coded Allergies: No Known Allergies (Unverified , 10/24/16) Objective Last 24 Hour Vital Signs Date Time Temp Pulse Resp B/P (MAP) Pulse Ox O2 Delivery O2 Flow Rate FiO2 04/19/19 10:50 69 22 99 Nasal Cannula 2.0 28 76 32 94 04/19/19 08:53 Nasal Cannula 4.0 04/19/19 08:52 76 113/74 04/19/19 08:16 92 Room Air 21 04/19/19 08:00 98.4 76 20 113/74 (87) 92 04/19/19 08:00 74 04/19/19 04:00 72 04/19/19 00:00 73 04/18/19 21:37 86 135/90 04/18/19 21:00 78 04/18/19 21:00 Nasal Cannula 4.0 04/18/19 20:00 98.2 80 20 135/82 (99) 96 04/18/19 19:34 95 Nasal Cannula 2.0 28 04/18/19 19:31 89 20 99 Nasal Cannula 2.0 28 92 20 95 04/18/19 16:00 97.6 75 16 120/70 (87) 96 04/18/19 16:00 75 04/18/19 15:11 68 20 98 Nasal Cannula 2.0 28 70 20 96 04/18/19 12:00 76 04/18/19 12:00 98.8 76 18 103/74 (84) 99 Intake and Output 04/18/19 04/19/19 19:00 07:00 Intake Total 800 ml 1160 ml Output Total 1400 ml 1400 ml Balance -600 ml -240 ml Intake Oral 800 ml 800 ml Other 360 ml Output Urine Total 1400 ml 1400 ml # Voids 2 # Bowel Movements 1 General Appearance: WD/WN HEENT: normocephalic, atraumatic Respiratory/Chest: chest wall non-tender, normal breath sounds Cardiovascular: normal rate, regular rhythm Abdomen: normal bowel sounds, no organomegaly Laboratory Tests 2/10/20 10:30: White Blood Count 11.4H, Red Blood Count 5.21, Hemoglobin 15.2, Hematocrit 46.5 , Mean Corpuscular Volume 89, Mean Corpuscular Hemoglobin 29.2, Mean Corpuscular Hemoglobin Concent 32.7, Red Cell Distribution Width 14.0, Platelet Count 250, Mean Platelet Volume 6.9, Neutrophils (%) (Auto) 67.4, Lymphocytes (% ) (Auto) 24.3, Monocytes (%) (Auto) 3.4, Eosinophils (%) (Auto) 3.0, Basophils ( %) (Auto) 1.9, Sodium Level 134L, Potassium Level 4.9, Chloride Level 99, Carbon Dioxide Level 29, Anion Gap 6, Blood Urea Nitrogen 28H, Creatinine 1.1, Estimat Glomerular Filtration Rate , Glucose Level 223H, Calcium Level 8.8 Current Medications Medications (Trade) Dose Ordered Sig/Dejon Route PRN Reason Start Time Stop Time Status Last Admin Dose Admin Acetaminophen (Tylenol) 650 mg Q4H PRN ORAL fever 04/15/19 03:48 05/08/19 03:47 04/18/19 09:35 Acetaminophen/ Hydrocodone Bitart ([place] 5/325) 1 tab Q6H PRN ORAL Severe Pain (Pain Scale 7-10) 04/17/19 10:00 04/24/19 09:59 04/19/19 00:54 Albuterol/ Ipratropium (Albuterol/ Ipratropium) 3 ml Q4H PRN HHN Shortness of Breath 04/17/19 15:30 04/21/19 23:29 Albuterol/ Ipratropium (Albuterol/ Ipratropium) 3 ml QIDRT INH 04/17/19 15:00 04/21/19 22:59 04/19/19 10:50 Apixaban (Eliquis) 5 mg BID ORAL 04/15/19 09:00 05/09/19 08:59 04/19/19 08:52 Carvedilol (Coreg) 6.25 mg EVERY 12 HOURS ORAL 04/15/19 09:00 05/09/19 08:59 04/19/19 08:52 Clonidine HCl (Catapres Tab) 0.1 mg Q4H PRN ORAL sbp more than 160 04/15/19 03:49 05/08/19 03:48 Dextrose (Dextrose 50%) 25 ml Q30M PRN IV Hypoglycemia 04/15/19 03:30 05/09/19 07:29 Dextrose (Dextrose 50%) 50 ml Q30M PRN IV Hypoglycemia 04/15/19 03:30 05/09/19 07:29 Insulin Aspart (NovoLOG) BEFORE MEALS AND HS SUBQ 04/15/19 06:30 05/09/19 13:29 04/18/19 17:36 Insulin Aspart (NovoLOG) 10 units NOVOTIAC SUBQ 04/16/19 07:30 05/10/19 07:29 04/18/19 17:36 Insulin Detemir (Levemir) 16 units BEDTIME SUBQ 04/16/19 21:00 05/09/19 20:59 04/18/19 21:38 Levothyroxine Sodium (Synthroid) 150 mcg ACBREAKFAST ORAL 04/15/19 06:30 05/09/19 06:29 04/18/19 06:02 Nitroglycerin (Ntg) 0.4 mg Q5M X 3 DOSES PRN SL Prn Chest Pain 04/15/19 03:15 05/08/19 21:29 Ondansetron HCl (Zofran) 4 mg Q6H PRN IVP Nausea & Vomiting 04/15/19 03:55 05/08/19 03:54 Promethazine HCl/ Codeine (Phenergan with Codeine) 5 ml Q6H PRN ORAL cough 04/15/19 03:55 05/08/19 03:54 04/17/19 20:46 Tamsulosin HCl (Flomax) 0.4 mg BEDTIME ORAL 04/15/19 21:00 05/09/19 20:59 04/18/19 21:37 Goldie Obrien MD Apr 19, 2019 11:27
[2019-04-19 12:00] VITALS: BP 117/68
--- NOTE | 2019-04-19 12:42 | Infectious Diseases Prog Note ---
Assessment/Plan Assessment/Plan Assessment: Acute hypoxic respiratory failure s/p bipap, now at RA COPD exacerbation CHF exacerbation -04/16 CXR: No acute disease -04/13 CXR: Suspected mild pulmonary vascular congestion. Correlate clinically -04/08 CXR: Mild pulmonary vascular congestion suspected Afebrile Leukocytosis,(s/p high dose steroids), now improving KAYLAN, improving Hyperglycemia COPD CAD CHF prostate cancer s/p PPM former smoker Plan: -Continue to monitor off abx -04/15 SP Levaquin #7 -04/08 SP Ceftriaxone x1, Azithromycin x1 -Monitor CBC/CMP, temperatures -aspiration precautions Thank you for this consultation. Will continue to follow along with you. Discussed with RN Subjective Allergies: Coded Allergies: No Known Allergies (Unverified , 10/24/16) Subjective afebrile wbc improving at off abx Objective Vital Signs Last 24 Hour Vital Signs Date Time Temp Pulse Resp B/P (MAP) Pulse Ox O2 Delivery O2 Flow Rate FiO2 04/19/19 10:50 69 22 99 Nasal Cannula 2.0 28 76 32 94 04/19/19 08:53 Nasal Cannula 4.0 04/19/19 08:52 76 113/74 04/19/19 08:16 92 Room Air 21 04/19/19 08:00 98.4 76 20 113/74 (87) 92 04/19/19 08:00 74 04/19/19 04:00 72 04/19/19 00:00 73 04/18/19 21:37 86 135/90 04/18/19 21:00 78 04/18/19 21:00 Nasal Cannula 4.0 04/18/19 20:00 98.2 80 20 135/82 (99) 96 04/18/19 19:34 95 Nasal Cannula 2.0 28 04/18/19 19:31 89 20 99 Nasal Cannula 2.0 28 92 20 95 04/18/19 16:00 97.6 75 16 120/70 (87) 96 04/18/19 16:00 75 04/18/19 15:11 68 20 98 Nasal Cannula 2.0 28 70 20 96 Height (Feet): 6 Height (Inches): 0.00 Weight (Pounds): 195 Objective General Appearance: no distress HEENT: normocephalic, atraumatic Neck: non-tender Respiratory/Chest: chest wall non-tender, rhonchi - left, rhonchi - right Cardiovascular/Chest: no murmurs Extremities: normal range of motion Laboratory Tests Test 04/19/19 10:30 White Blood Count 11.4 K/UL (4.8-10.8) H Red Blood Count 5.21 M/UL (4.70-6.10) Hemoglobin 15.2 G/DL (14.2-18.0) Hematocrit 46.5 % (42.0-52.0) Mean Corpuscular Volume 89 FL (80-99) Mean Corpuscular Hemoglobin 29.2 PG (27.0-31.0) Mean Corpuscular Hemoglobin Concent 32.7 G/DL (32.0-36.0) Red Cell Distribution Width 14.0 % (11.6-14.8) Platelet Count 250 K/UL (150-450) Mean Platelet Volume 6.9 FL (6.5-10.1) Neutrophils (%) (Auto) 67.4 % (45.0-75.0) Lymphocytes (%) (Auto) 24.3 % (20.0-45.0) Monocytes (%) (Auto) 3.4 % (1.0-10.0) Eosinophils (%) (Auto) 3.0 % (0.0-3.0) Basophils (%) (Auto) 1.9 % (0.0-2.0) Sodium Level 134 MMOL/L (136-145) L Potassium Level 4.9 MMOL/L (3.5-5.1) Chloride Level 99 MMOL/L (98-107) Carbon Dioxide Level 29 MMOL/L (21-32) Anion Gap 6 mmol/L (5-15) Blood Urea Nitrogen 28 mg/dL (7-18) H Creatinine 1.1 MG/DL (0.55-1.30) Estimat Glomerular Filtration Rate mL/min (>60) Glucose Level 223 MG/DL (74-106) H Calcium Level 8.8 MG/DL (8.5-10.1) Current Medications Medications (Trade) Dose Ordered Sig/Dejon Route PRN Reason Start Time Stop Time Status Last Admin Dose Admin Acetaminophen (Tylenol) 650 mg Q4H PRN ORAL fever 04/15/19 03:48 05/08/19 03:47 04/18/19 09:35 Acetaminophen/ Hydrocodone Bitart ([place] 5/325) 1 tab Q6H PRN ORAL Severe Pain (Pain Scale 7-10) 04/17/19 10:00 04/24/19 09:59 04/19/19 00:54 Albuterol/ Ipratropium (Albuterol/ Ipratropium) 3 ml Q4H PRN HHN Shortness of Breath 04/17/19 15:30 04/21/19 23:29 Albuterol/ Ipratropium (Albuterol/ Ipratropium) 3 ml QIDRT INH 04/17/19 15:00 04/21/19 22:59 04/19/19 10:50 Apixaban (Eliquis) 5 mg BID ORAL 04/15/19 09:00 05/09/19 08:59 04/19/19 08:52 Carvedilol (Coreg) 6.25 mg EVERY 12 HOURS ORAL 04/15/19 09:00 05/09/19 08:59 04/19/19 08:52 Clonidine HCl (Catapres Tab) 0.1 mg Q4H PRN ORAL sbp more than 160 04/15/19 03:49 05/08/19 03:48 Dextrose (Dextrose 50%) 25 ml Q30M PRN IV Hypoglycemia 04/15/19 03:30 05/09/19 07:29 Dextrose (Dextrose 50%) 50 ml Q30M PRN IV Hypoglycemia 04/15/19 03:30 05/09/19 07:29 Insulin Aspart (NovoLOG) BEFORE MEALS AND HS SUBQ 04/15/19 06:30 05/09/19 13:29 04/19/19 12:02 Insulin Aspart (NovoLOG) 10 units NOVOTIAC SUBQ 04/16/19 07:30 05/10/19 07:29 04/19/19 12:01 Insulin Detemir (Levemir) 16 units BEDTIME SUBQ 04/16/19 21:00 05/09/19 20:59 04/18/19 21:38 Levothyroxine Sodium (Synthroid) 150 mcg ACBREAKFAST ORAL 04/15/19 06:30 05/09/19 06:29 04/18/19 06:02 Nitroglycerin (Ntg) 0.4 mg Q5M X 3 DOSES PRN SL Prn Chest Pain 04/15/19 03:15 05/08/19 21:29 Ondansetron HCl (Zofran) 4 mg Q6H PRN IVP Nausea & Vomiting 04/15/19 03:55 05/08/19 03:54 Promethazine HCl/ Codeine (Phenergan with Codeine) 5 ml Q6H PRN ORAL cough 04/15/19 03:55 05/08/19 03:54 04/17/19 20:46 Tamsulosin HCl (Flomax) 0.4 mg BEDTIME ORAL 04/15/19 21:00 05/09/19 20:59 04/18/19 21:37 An Villa M.D. Apr 19, 2019 12:42
--- NOTE | 2019-04-19 14:34 | Diagnostic Imaging Report ---
Indication: Dyspnea Comparison: 04/16/2019 A single view chest radiograph was obtained. Findings: Left hemidiaphragm is elevated. Pulmonary vascularity is mildly prominent. Heart is enlarged. There is a pacemaker on the left noted. IMPRESSION: Mild pulmonary vascular congestion
[2019-04-19 16:00] VITALS: BP 126/82
--- NOTE | 2019-04-19 18:43 | Internal Med Progress Note ---
Subjective Date of Service: Apr 19, 2019 Physician Name BrittneyIdris Attending Physician Jewel Giraldo MD Current Medications Medications (Trade) Dose Ordered Sig/Dejon Route PRN Reason Start Time Stop Time Status Last Admin Dose Admin Acetaminophen (Tylenol) 650 mg Q4H PRN ORAL fever 04/15/19 03:48 05/08/19 03:47 04/18/19 09:35 Acetaminophen/ Hydrocodone Bitart ([place] 5/325) 1 tab Q6H PRN ORAL Severe Pain (Pain Scale 7-10) 04/17/19 10:00 04/24/19 09:59 04/19/19 17:11 Albuterol/ Ipratropium (Albuterol/ Ipratropium) 3 ml Q4H PRN HHN Shortness of Breath 04/17/19 15:30 04/21/19 23:29 Albuterol/ Ipratropium (Albuterol/ Ipratropium) 3 ml QIDRT INH 04/17/19 15:00 04/21/19 22:59 04/19/19 10:50 Apixaban (Eliquis) 5 mg BID ORAL 04/15/19 09:00 05/09/19 08:59 04/19/19 17:11 Carvedilol (Coreg) 6.25 mg EVERY 12 HOURS ORAL 04/15/19 09:00 05/09/19 08:59 04/19/19 08:52 Clonidine HCl (Catapres Tab) 0.1 mg Q4H PRN ORAL sbp more than 160 04/15/19 03:49 05/08/19 03:48 Dextrose (Dextrose 50%) 25 ml Q30M PRN IV Hypoglycemia 04/15/19 03:30 05/09/19 07:29 Dextrose (Dextrose 50%) 50 ml Q30M PRN IV Hypoglycemia 04/15/19 03:30 05/09/19 07:29 Insulin Aspart (NovoLOG) BEFORE MEALS AND HS SUBQ 04/15/19 06:30 05/09/19 13:29 04/19/19 17:12 Insulin Aspart (NovoLOG) 10 units NOVOTIAC SUBQ 04/16/19 07:30 05/10/19 07:29 04/19/19 17:12 Insulin Detemir (Levemir) 16 units BEDTIME SUBQ 04/16/19 21:00 05/09/19 20:59 04/18/19 21:38 Levothyroxine Sodium (Synthroid) 150 mcg ACBREAKFAST ORAL 04/15/19 06:30 05/09/19 06:29 04/18/19 06:02 Nitroglycerin (Ntg) 0.4 mg Q5M X 3 DOSES PRN SL Prn Chest Pain 04/15/19 03:15 05/08/19 21:29 Ondansetron HCl (Zofran) 4 mg Q6H PRN IVP Nausea & Vomiting 04/15/19 03:55 05/08/19 03:54 Promethazine HCl/ Codeine (Phenergan with Codeine) 5 ml Q6H PRN ORAL cough 04/15/19 03:55 05/08/19 03:54 04/17/19 20:46 Tamsulosin HCl (Flomax) 0.4 mg BEDTIME ORAL 04/15/19 21:00 05/09/19 20:59 04/18/19 21:37 Allergies: Coded Allergies: No Known Allergies (Unverified , 10/24/16) ROS Limited/Unobtainable: No Constitutional: Reports: no symptoms HEENT: Reports: no symptoms Cardiovascular: Reports: no symptoms Respiratory: Reports: no symptoms Gastrointestinal/Abdominal: Reports: no symptoms Genitourinary: Reports: no symptoms Neurologic/Psychiatric: Reports: no symptoms Subjective 73 YO M admitted with COPD exacerbation. Now respiratory failure. Cover for Int Bubba-DR Giraldo. Objective Last Vital Signs Date Time Temp Pulse Resp B/P (MAP) Pulse Ox O2 Delivery O2 Flow Rate FiO2 04/19/19 16:00 74 04/19/19 16:00 97.6 21 126/82 (97) 91 04/19/19 10:50 Nasal Cannula 2.0 28 Laboratory Tests Test 04/19/19 10:30 White Blood Count 11.4 K/UL (4.8-10.8) H Red Blood Count 5.21 M/UL (4.70-6.10) Hemoglobin 15.2 G/DL (14.2-18.0) Hematocrit 46.5 % (42.0-52.0) Mean Corpuscular Volume 89 FL (80-99) Mean Corpuscular Hemoglobin 29.2 PG (27.0-31.0) Mean Corpuscular Hemoglobin Concent 32.7 G/DL (32.0-36.0) Red Cell Distribution Width 14.0 % (11.6-14.8) Platelet Count 250 K/UL (150-450) Mean Platelet Volume 6.9 FL (6.5-10.1) Neutrophils (%) (Auto) 67.4 % (45.0-75.0) Lymphocytes (%) (Auto) 24.3 % (20.0-45.0) Monocytes (%) (Auto) 3.4 % (1.0-10.0) Eosinophils (%) (Auto) 3.0 % (0.0-3.0) Basophils (%) (Auto) 1.9 % (0.0-2.0) Sodium Level 134 MMOL/L (136-145) L Potassium Level 4.9 MMOL/L (3.5-5.1) Chloride Level 99 MMOL/L (98-107) Carbon Dioxide Level 29 MMOL/L (21-32) Anion Gap 6 mmol/L (5-15) Blood Urea Nitrogen 28 mg/dL (7-18) H Creatinine 1.1 MG/DL (0.55-1.30) Estimat Glomerular Filtration Rate mL/min (>60) Glucose Level 223 MG/DL (74-106) H Calcium Level 8.8 MG/DL (8.5-10.1) Intake and Output 04/18/19 04/19/19 19:00 07:00 Intake Total 800 ml 1160 ml Output Total 1400 ml 1400 ml Balance -600 ml -240 ml Intake Oral 800 ml 800 ml Other 360 ml Output Urine Total 1400 ml 1400 ml # Voids 2 # Bowel Movements 1 Objective PHYSICAL EXAMINATION: GENERAL: The patient is awake, responsive, no acute distress. HEAD AND NECK: Pupils are equal and reactive to light. Extraocular muscles intact. Neck was supple. No JVD. LUNGS: Nasal canula;The patient has expiratory wheezes noted. Tachypneic. No rhonchi was noted. HEART: S1, S2. Irregular. No murmur. The patient has a pacemaker in the left-sided chest wall. ABDOMEN: Soft, nondistended, nontender. Mildly obese. EXTREMITIES: No cyanosis, clubbing, edema. NEUROLOGIC: Cranial nerves II through XII grossly normal. Motor is 5/5 in all extremities. Gait is intact. GENITOURINARY: It was noted the patient has a Montgomery catheter. RECTAL: Refused and deferred. PSYCHIATRIC: Mood and affect is intact. Assessment/Plan Assessment/Plan ASSESSMENT: 1. Acute hypoxemic respiratory failure, most likely secondary to acute COPD exacerbation. 2. Acute COPD exacerbation. 3. Pneumonia. 4. Sick sinus syndrome status post pacemaker. 5. Diabetes type 2. 6. Prostate cancer. 7. Hyperkalemia. 8. Insulin induced hyperglycemia. 9. Prostate enlargement. 10. Leukocytosis 11. RBBB PLAN: 1. Med/Surg. 2. D/C Solu-Medrol IV Per Pulmonary consult=Dr. Obrien. 3. Endocrinology=Dr To. Monitor blood glucose level closely. 4. antibiotic=S/P Levaquin. ID=Dr Villa 5. Code status is Full Code. DVT prophylaxis, he is on Eliquis. Idris Lugo MD Apr 19, 2019 18:43
[2019-04-19 20:00] VITALS: BP 120/79
--- NOTE | 2019-04-19 20:02 | Cardiology Progress Note ---
Assessment/Plan Assessment/Plan 1. COPD with exacerbation. 2. History of hypothyroidism, status post thyroidectomy for thyroid cancer. 3. History of prostate cancer, indwelling Montgomery catheter. 4. History of recurrent urinary tract infections. troop neg tle reviewed labs noted still with sob looks comfortable Subjective Cardiovascular: Denies: chest pain, lightheadedness, palpitations Respiratory: Reports: cough, shortness of breath, wheezing Gastrointestinal/Abdominal: Denies: abdominal pain Genitourinary: Denies: burning Objective Last 24 Hour Vital Signs Date Time Temp Pulse Resp B/P (MAP) Pulse Ox O2 Delivery O2 Flow Rate FiO2 04/19/19 16:00 74 04/19/19 16:00 97.6 76 21 126/82 (97) 91 04/19/19 12:00 75 04/19/19 12:00 97.3 75 19 117/68 (84) 93 04/19/19 10:50 69 22 99 Nasal Cannula 2.0 28 76 32 94 04/19/19 08:53 Nasal Cannula 4.0 04/19/19 08:52 76 113/74 04/19/19 08:16 92 Room Air 21 04/19/19 08:00 98.4 76 20 113/74 (87) 92 04/19/19 08:00 74 04/19/19 04:00 72 04/19/19 00:00 73 04/18/19 21:37 86 135/90 04/18/19 21:00 78 04/18/19 21:00 Nasal Cannula 4.0 General Appearance: no apparent distress, alert Neck: supple Cardiovascular: normal rate Respiratory/Chest: decreased breath sounds, rhonchi - left Abdomen: normal bowel sounds, non tender, soft Extremities: no swelling Intake and Output 04/18/19 04/19/19 19:00 07:00 Intake Total 800 ml 1160 ml Output Total 1400 ml 1400 ml Balance -600 ml -240 ml Intake Oral 800 ml 800 ml Other 360 ml Output Urine Total 1400 ml 1400 ml # Voids 2 # Bowel Movements 1 Laboratory Tests Test 04/19/19 10:30 White Blood Count 11.4 K/UL (4.8-10.8) H Red Blood Count 5.21 M/UL (4.70-6.10) Hemoglobin 15.2 G/DL (14.2-18.0) Hematocrit 46.5 % (42.0-52.0) Mean Corpuscular Volume 89 FL (80-99) Mean Corpuscular Hemoglobin 29.2 PG (27.0-31.0) Mean Corpuscular Hemoglobin Concent 32.7 G/DL (32.0-36.0) Red Cell Distribution Width 14.0 % (11.6-14.8) Platelet Count 250 K/UL (150-450) Mean Platelet Volume 6.9 FL (6.5-10.1) Neutrophils (%) (Auto) 67.4 % (45.0-75.0) Lymphocytes (%) (Auto) 24.3 % (20.0-45.0) Monocytes (%) (Auto) 3.4 % (1.0-10.0) Eosinophils (%) (Auto) 3.0 % (0.0-3.0) Basophils (%) (Auto) 1.9 % (0.0-2.0) Sodium Level 134 MMOL/L (136-145) L Potassium Level 4.9 MMOL/L (3.5-5.1) Chloride Level 99 MMOL/L (98-107) Carbon Dioxide Level 29 MMOL/L (21-32) Anion Gap 6 mmol/L (5-15) Blood Urea Nitrogen 28 mg/dL (7-18) H Creatinine 1.1 MG/DL (0.55-1.30) Estimat Glomerular Filtration Rate mL/min (>60) Glucose Level 223 MG/DL (74-106) H Calcium Level 8.8 MG/DL (8.5-10.1) Chemo Esquivel MD Apr 19, 2019 20:02
[2019-04-19] MEDS: Tamsulosin 0.4mg cap ORAL SCH (21:00)
[2019-04-19] MEDS: Levemir Flexpen SUBQ SCH (21:07)
[2019-04-20] VITALS: BP 113/71
[2019-04-20 04:00] VITALS: BP 117/76
[2019-04-20] MEDS: NovoLOG Insulin Flexpen SUBQ SCH ×7 (06:06→21:55)
[2019-04-20] MEDS: HYDROcodone/Acetamin 5/325 tab ORAL PRN ×2 (06:07→21:48)
--- NOTE | 2019-04-20 06:44 | General Progress Note ---
Assessment/Plan Problem List: (1) COPD exacerbation ICD Codes: J44.1 - Chronic obstructive pulmonary disease with (acute) exacerbation SNOMED: 701559987 (2) Respiratory failure with hypoxia ICD Codes: J96.91 - Respiratory failure, unspecified with hypoxia SNOMED: 05293687600703673 (3) Diabetes mellitus ICD Codes: E11.9 - Type 2 diabetes mellitus without complications SNOMED: 76465430 (4) Pacemaker ICD Codes: Z95.0 - Presence of cardiac pacemaker SNOMED: 893217065 (5) Prostate cancer ICD Codes: C61 - Malignant neoplasm of prostate SNOMED: 781903576 (6) Hypothyroid ICD Codes: E03.9 - Hypothyroidism, unspecified SNOMED: 85578858 Status: stable, progressing Assessment/Plan: continue Levemir 16 units qhs continue Novolog 10 units ac tid continue NISS ac / hs Subjective Allergies: Coded Allergies: No Known Allergies (Unverified , 10/24/16) All Systems: reviewed and negative except above Subjective events noted glucose values are mostly stable with some minor spike due to non compliance with diet Item Value Date Time Bedside Blood Glucose 163 mg/dl H 04/20/19 0606 Bedside Blood Glucose 173 mg/dl H 04/19/19 2108 Bedside Blood Glucose 230 mg/dl H 04/19/19 1712 Bedside Blood Glucose 160 mg/dl H 04/19/19 1202 Glucose Level 223 MG/DL H 04/19/19 1030 Objective Last 24 Hour Vital Signs Date Time Temp Pulse Resp B/P (MAP) Pulse Ox O2 Delivery O2 Flow Rate FiO2 04/20/19 04:00 97.2 72 24 117/76 (90) 92 04/20/19 04:00 72 04/20/19 00:00 97.2 73 24 113/71 (85) 91 04/20/19 00:00 73 04/19/19 21:00 75 120/78 04/19/19 21:00 Nasal Cannula 4.0 04/19/19 20:00 96.8 75 24 120/79 (93) 91 04/19/19 20:00 75 04/19/19 19:14 92 Nasal Cannula 2.0 28 04/19/19 19:14 71 22 97 Nasal Cannula 2.0 28 73 26 94 04/19/19 16:00 74 04/19/19 16:00 97.6 76 21 126/82 (97) 91 04/19/19 12:00 75 04/19/19 12:00 97.3 75 19 117/68 (84) 93 04/19/19 10:50 69 22 99 Nasal Cannula 2.0 28 76 32 94 04/19/19 08:53 Nasal Cannula 4.0 04/19/19 08:52 76 113/74 04/19/19 08:16 92 Room Air 21 04/19/19 08:00 98.4 76 20 113/74 (87) 92 04/19/19 08:00 74 Intake and Output 04/19/19 04/20/19 19:00 07:00 Intake Total 960 ml Output Total 1200 ml 2000 ml Balance -240 ml -2000 ml Intake Oral 600 ml Other 360 ml Output Urine Total 1200 ml 2000 ml # Voids 2 # Bowel Movements 1 1 Laboratory Tests 04/19/19 10:30: White Blood Count 11.4H, Red Blood Count 5.21, Hemoglobin 15.2, Hematocrit 46.5 , Mean Corpuscular Volume 89, Mean Corpuscular Hemoglobin 29.2, Mean Corpuscular Hemoglobin Concent 32.7, Red Cell Distribution Width 14.0, Platelet Count 250, Mean Platelet Volume 6.9, Neutrophils (%) (Auto) 67.4, Lymphocytes (% ) (Auto) 24.3, Monocytes (%) (Auto) 3.4, Eosinophils (%) (Auto) 3.0, Basophils ( %) (Auto) 1.9, Sodium Level 134L, Potassium Level 4.9, Chloride Level 99, Carbon Dioxide Level 29, Anion Gap 6, Blood Urea Nitrogen 28H, Creatinine 1.1, Estimat Glomerular Filtration Rate , Glucose Level 223H, Calcium Level 8.8 Height (Feet): 6 Height (Inches): 0.00 Weight (Pounds): 195 General Appearance: no apparent distress Neck: normal alignment Cardiovascular: normal rate Respiratory/Chest: decreased breath sounds Abdomen: normal bowel sounds Pelvis: normal external exam Objective Current Medications Medications (Trade) Dose Ordered Sig/Dejon Route PRN Reason Start Time Stop Time Status Last Admin Dose Admin Acetaminophen (Tylenol) 650 mg Q4H PRN ORAL fever 04/15/19 03:48 05/08/19 03:47 04/18/19 09:35 Acetaminophen/ Hydrocodone Bitart ([place] 5/325) 1 tab Q6H PRN ORAL Severe Pain (Pain Scale 7-10) 04/17/19 10:00 04/24/19 09:59 04/20/19 06:07 Albuterol/ Ipratropium (Albuterol/ Ipratropium) 3 ml Q4H PRN HHN Shortness of Breath 04/17/19 15:30 04/21/19 23:29 Albuterol/ Ipratropium (Albuterol/ Ipratropium) 3 ml QIDRT INH 04/17/19 15:00 04/21/19 22:59 04/19/19 19:14 Apixaban (Eliquis) 5 mg BID ORAL 04/15/19 09:00 05/09/19 08:59 04/19/19 17:11 Carvedilol (Coreg) 6.25 mg EVERY 12 HOURS ORAL 04/15/19 09:00 05/09/19 08:59 04/19/19 21:00 Clonidine HCl (Catapres Tab) 0.1 mg Q4H PRN ORAL sbp more than 160 04/15/19 03:49 05/08/19 03:48 Dextrose (Dextrose 50%) 25 ml Q30M PRN IV Hypoglycemia 04/15/19 03:30 05/09/19 07:29 Dextrose (Dextrose 50%) 50 ml Q30M PRN IV Hypoglycemia 04/15/19 03:30 05/09/19 07:29 Insulin Aspart (NovoLOG) BEFORE MEALS AND HS SUBQ 04/15/19 06:30 05/09/19 13:29 04/20/19 06:06 Insulin Aspart (NovoLOG) 10 units NOVOTIAC SUBQ 04/16/19 07:30 05/10/19 07:29 04/20/19 06:06 Insulin Detemir (Levemir) 16 units BEDTIME SUBQ 04/16/19 21:00 05/09/19 20:59 04/19/19 21:07 Levothyroxine Sodium (Synthroid) 150 mcg ACBREAKFAST ORAL 04/15/19 06:30 05/09/19 06:29 04/20/19 06:01 Nitroglycerin (Ntg) 0.4 mg Q5M X 3 DOSES PRN SL Prn Chest Pain 04/15/19 03:15 05/08/19 21:29 Ondansetron HCl (Zofran) 4 mg Q6H PRN IVP Nausea & Vomiting 04/15/19 03:55 05/08/19 03:54 Promethazine HCl/ Codeine (Phenergan with Codeine) 5 ml Q6H PRN ORAL cough 04/15/19 03:55 05/08/19 03:54 04/17/19 20:46 Tamsulosin HCl (Flomax) 0.4 mg BEDTIME ORAL 04/15/19 21:00 05/09/19 20:59 04/19/19 21:00 Geovanni To MD Apr 20, 2019 06:44
[2019-04-20 07:41] LABS: BASOPHILS % (AUTO) 1.2 % (0.0-2.0); EOSINOPHILS % (AUTO) 2.8 % (0.0-3.0); HEMATOCRIT 42.6 % (42.0-52.0); HEMOGLOBIN 14.4 G/DL (14.2-18.0); LYMPHOCYTES % (AUTO) 25.3 % (20.0-45.0); MEAN CORPUSCULAR VOLUME 89 FL (80-99); MONOCYTES % (AUTO) 6.1 % (1.0-10.0); NEUTROPHILS % (AUTO) 64.6 % (45.0-75.0); PLATELET COUNT 227 K/UL (150-450); RED BLOOD COUNT 4.77 M/UL (4.70-6.10); RED CELL DISTRIBUTION WIDTH 14.2 % (11.6-14.8); WHITE BLOOD COUNT 11.2 K/UL (4.8-10.8)
[2019-04-20 07:56] LABS: ANION GAP 4 mmol/L (5-15); BLOOD UREA NITROGEN 30 mg/dL (7-18); CALCIUM 8.6 MG/DL (8.5-10.1); CARBON DIOXIDE 31 MMOL/L (21-32); CHLORIDE 109 MMOL/L (98-107); CREATININE 1.1 MG/DL (0.55-1.30); SODIUM 144 MMOL/L (136-145)
[2019-04-20] MEDS: Albuterol/Ipratropium 3ml neb INH SCH ×4 (07:58→19:00)
[2019-04-20 08:00] VITALS: BP 118/77
[2019-04-20] MEDS: Eliquis 5mg tablet ORAL SCH ×2 (08:06→17:25)
[2019-04-20] MEDS: Carvedilol 6.25mg Tab ORAL SCH ×2 (08:15→21:53)
--- NOTE | 2019-04-20 11:09 | Pulmonology Progress Note ---
Assessment/Plan Problems: (1) Respiratory failure with hypoxia (2) COPD exacerbation (3) Pneumonia (4) Pacemaker (5) Diabetes mellitus (6) Prostate cancer Assessment/Plan CT of chest with contrast still short of breath coughing phlegm sliding scale diabetic diet taper down steroids cardio note reviewed. Subjective ROS Limited/Unobtainable: No Interval Events: still short of breath ans wheezing Allergies: Coded Allergies: No Known Allergies (Unverified , 10/24/16) Objective Last 24 Hour Vital Signs Date Time Temp Pulse Resp B/P (MAP) Pulse Ox O2 Delivery O2 Flow Rate FiO2 04/20/19 08:15 78 118/77 04/20/19 08:00 97.0 78 22 118/77 (91) 94 04/20/19 07:44 Nasal Cannula 4.0 04/20/19 04:00 97.2 72 24 117/76 (90) 92 04/20/19 04:00 72 04/20/19 00:00 97.2 73 24 113/71 (85) 91 04/20/19 00:00 73 04/19/19 21:00 75 120/78 04/19/19 21:00 Nasal Cannula 4.0 04/19/19 20:00 96.8 75 24 120/79 (93) 91 04/19/19 20:00 75 04/19/19 19:14 92 Nasal Cannula 2.0 28 04/19/19 19:14 71 22 97 Nasal Cannula 2.0 28 73 26 94 04/19/19 16:00 74 04/19/19 16:00 97.6 76 21 126/82 (97) 91 04/19/19 12:00 75 04/19/19 12:00 97.3 75 19 117/68 (84) 93 Intake and Output 04/19/19 04/20/19 19:00 07:00 Intake Total 960 ml Output Total 1200 ml 2000 ml Balance -240 ml -2000 ml Intake Oral 600 ml Other 360 ml Output Urine Total 1200 ml 2000 ml # Voids 2 # Bowel Movements 1 1 General Appearance: WD/WN HEENT: normocephalic, anicteric Respiratory/Chest: chest wall non-tender, expiratory wheezing, inspiratory wheezing Cardiovascular: normal peripheral pulses, normal rate Abdomen: normal bowel sounds, soft, non tender Genitourinary: normal external genitalia Extremities: no clubbing 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 Lymphatic: no neck adenopathy Musculoskeletal: normal muscle bulk Laboratory Tests 04/20/19 05:45: White Blood Count 11.2H, Red Blood Count 4.77, Hemoglobin 14.4, Hematocrit 42.6 , Mean Corpuscular Volume 89, Mean Corpuscular Hemoglobin 30.1, Mean Corpuscular Hemoglobin Concent 33.7, Red Cell Distribution Width 14.2, Platelet Count 227, Mean Platelet Volume 7.1, Neutrophils (%) (Auto) 64.6, Lymphocytes (% ) (Auto) 25.3, Monocytes (%) (Auto) 6.1, Eosinophils (%) (Auto) 2.8, Basophils ( %) (Auto) 1.2, Sodium Level 144#, Potassium Level 5.0, Chloride Level 109H, Carbon Dioxide Level 31, Anion Gap 4L, Blood Urea Nitrogen 30H, Creatinine 1.1, Estimat Glomerular Filtration Rate , Glucose Level 143H, Calcium Level 8.6 Current Medications Medications (Trade) Dose Ordered Sig/Dejon Route PRN Reason Start Time Stop Time Status Last Admin Dose Admin Acetaminophen (Tylenol) 650 mg Q4H PRN ORAL fever 04/15/19 03:48 05/08/19 03:47 04/18/19 09:35 Acetaminophen/ Hydrocodone Bitart ([place] 5/325) 1 tab Q6H PRN ORAL Severe Pain (Pain Scale 7-10) 04/17/19 10:00 04/24/19 09:59 04/20/19 06:07 Albuterol/ Ipratropium (Albuterol/ Ipratropium) 3 ml Q4H PRN HHN Shortness of Breath 04/17/19 15:30 04/21/19 23:29 Albuterol/ Ipratropium (Albuterol/ Ipratropium) 3 ml QIDRT INH 04/17/19 15:00 04/21/19 22:59 04/20/19 07:58 Apixaban (Eliquis) 5 mg BID ORAL 04/15/19 09:00 05/09/19 08:59 04/20/19 08:06 Carvedilol (Coreg) 6.25 mg EVERY 12 HOURS ORAL 04/15/19 09:00 05/09/19 08:59 04/20/19 08:15 Clonidine HCl (Catapres Tab) 0.1 mg Q4H PRN ORAL sbp more than 160 04/15/19 03:49 05/08/19 03:48 Dextrose (Dextrose 50%) 25 ml Q30M PRN IV Hypoglycemia 04/15/19 03:30 05/09/19 07:29 Dextrose (Dextrose 50%) 50 ml Q30M PRN IV Hypoglycemia 04/15/19 03:30 05/09/19 07:29 Insulin Aspart (NovoLOG) BEFORE MEALS AND HS SUBQ 04/15/19 06:30 05/09/19 13:29 04/20/19 06:06 Insulin Aspart (NovoLOG) 10 units NOVOTIAC SUBQ 04/16/19 07:30 05/10/19 07:29 04/20/19 06:06 Insulin Detemir (Levemir) 16 units BEDTIME SUBQ 04/16/19 21:00 05/09/19 20:59 04/19/19 21:07 Levothyroxine Sodium (Synthroid) 150 mcg ACBREAKFAST ORAL 04/15/19 06:30 05/09/19 06:29 04/20/19 06:01 Nitroglycerin (Ntg) 0.4 mg Q5M X 3 DOSES PRN SL Prn Chest Pain 04/15/19 03:15 05/08/19 21:29 Ondansetron HCl (Zofran) 4 mg Q6H PRN IVP Nausea & Vomiting 04/15/19 03:55 05/08/19 03:54 Promethazine HCl/ Codeine (Phenergan with Codeine) 5 ml Q6H PRN ORAL cough 04/15/19 03:55 05/08/19 03:54 04/17/19 20:46 Tamsulosin HCl (Flomax) 0.4 mg BEDTIME ORAL 04/15/19 21:00 05/09/19 20:59 04/19/19 21:00 Goldie Obrien MD Apr 20, 2019 11:09
--- NOTE | 2019-04-20 11:41 | Infectious Diseases Prog Note ---
Assessment/Plan Assessment/Plan Assessment: Acute hypoxic respiratory failure s/p bipap, now at RA COPD exacerbation CHF exacerbation -04/19 CXR: Mild pulmonary vascular congestion -04/16 CXR: No acute disease -04/13 CXR: Suspected mild pulmonary vascular congestion. Correlate clinically -04/08 CXR: Mild pulmonary vascular congestion suspected Afebrile Leukocytosis,(s/p high dose steroids), now improving KAYLAN, improving Hyperglycemia COPD CAD CHF prostate cancer s/p PPM former smoker Plan: -Continue to monitor off abx -04/15 SP Levaquin #7 -04/08 SP Ceftriaxone x1, Azithromycin x1 -Monitor CBC/CMP, temperatures -aspiration precautions Thank you for this consultation. Will continue to follow along with you. Discussed with RN Subjective Allergies: Coded Allergies: No Known Allergies (Unverified , 10/24/16) Subjective afebrile wbc improving off abx Objective Vital Signs Last 24 Hour Vital Signs Date Time Temp Pulse Resp B/P (MAP) Pulse Ox O2 Delivery O2 Flow Rate FiO2 04/20/19 08:15 78 118/77 04/20/19 08:00 97.0 78 22 118/77 (91) 94 04/20/19 07:44 Nasal Cannula 4.0 04/20/19 04:00 97.2 72 24 117/76 (90) 92 04/20/19 04:00 72 04/20/19 00:00 97.2 73 24 113/71 (85) 91 04/20/19 00:00 73 04/19/19 21:00 75 120/78 04/19/19 21:00 Nasal Cannula 4.0 04/19/19 20:00 96.8 75 24 120/79 (93) 91 04/19/19 20:00 75 04/19/19 19:14 92 Nasal Cannula 2.0 28 04/19/19 19:14 71 22 97 Nasal Cannula 2.0 28 73 26 94 04/19/19 16:00 74 04/19/19 16:00 97.6 76 21 126/82 (97) 91 04/19/19 12:00 75 04/19/19 12:00 97.3 75 19 117/68 (84) 93 Height (Feet): 6 Height (Inches): 0.00 Weight (Pounds): 195 Objective General Appearance: no distress HEENT: normocephalic, atraumatic Neck: supple Respiratory/Chest: chest wall non-tender, rhonchi - left, rhonchi - right Cardiovascular/Chest: no murmurs Extremities: normal range of motion Laboratory Tests Test 04/20/19 05:45 White Blood Count 11.2 K/UL (4.8-10.8) H Red Blood Count 4.77 M/UL (4.70-6.10) Hemoglobin 14.4 G/DL (14.2-18.0) Hematocrit 42.6 % (42.0-52.0) Mean Corpuscular Volume 89 FL (80-99) Mean Corpuscular Hemoglobin 30.1 PG (27.0-31.0) Mean Corpuscular Hemoglobin Concent 33.7 G/DL (32.0-36.0) Red Cell Distribution Width 14.2 % (11.6-14.8) Platelet Count 227 K/UL (150-450) Mean Platelet Volume 7.1 FL (6.5-10.1) Neutrophils (%) (Auto) 64.6 % (45.0-75.0) Lymphocytes (%) (Auto) 25.3 % (20.0-45.0) Monocytes (%) (Auto) 6.1 % (1.0-10.0) Eosinophils (%) (Auto) 2.8 % (0.0-3.0) Basophils (%) (Auto) 1.2 % (0.0-2.0) Sodium Level 144 MMOL/L (136-145) # Potassium Level 5.0 MMOL/L (3.5-5.1) Chloride Level 109 MMOL/L (98-107) H Carbon Dioxide Level 31 MMOL/L (21-32) Anion Gap 4 mmol/L (5-15) L Blood Urea Nitrogen 30 mg/dL (7-18) H Creatinine 1.1 MG/DL (0.55-1.30) Estimat Glomerular Filtration Rate mL/min (>60) Glucose Level 143 MG/DL (74-106) H Calcium Level 8.6 MG/DL (8.5-10.1) Current Medications Medications (Trade) Dose Ordered Sig/Dejon Route PRN Reason Start Time Stop Time Status Last Admin Dose Admin Acetaminophen (Tylenol) 650 mg Q4H PRN ORAL fever 04/15/19 03:48 05/08/19 03:47 04/18/19 09:35 Acetaminophen/ Hydrocodone Bitart ([place] 5/325) 1 tab Q6H PRN ORAL Severe Pain (Pain Scale 7-10) 04/17/19 10:00 04/24/19 09:59 04/20/19 06:07 Albuterol/ Ipratropium (Albuterol/ Ipratropium) 3 ml Q4H PRN HHN Shortness of Breath 04/17/19 15:30 04/21/19 23:29 Albuterol/ Ipratropium (Albuterol/ Ipratropium) 3 ml QIDRT INH 04/17/19 15:00 04/21/19 22:59 04/20/19 07:58 Apixaban (Eliquis) 5 mg BID ORAL 04/15/19 09:00 05/09/19 08:59 04/20/19 08:06 Carvedilol (Coreg) 6.25 mg EVERY 12 HOURS ORAL 04/15/19 09:00 05/09/19 08:59 04/20/19 08:15 Clonidine HCl (Catapres Tab) 0.1 mg Q4H PRN ORAL sbp more than 160 04/15/19 03:49 05/08/19 03:48 Clotrimazole (Lotrimin) 1 applic THREE TIMES A DAY TOPIC 04/20/19 13:00 05/20/19 12:59 Dextrose (Dextrose 50%) 25 ml Q30M PRN IV Hypoglycemia 04/15/19 03:30 05/09/19 07:29 Dextrose (Dextrose 50%) 50 ml Q30M PRN IV Hypoglycemia 04/15/19 03:30 05/09/19 07:29 Insulin Aspart (NovoLOG) BEFORE MEALS AND HS SUBQ 04/15/19 06:30 05/09/19 13:29 04/20/19 06:06 Insulin Aspart (NovoLOG) 10 units NOVOTIAC SUBQ 04/16/19 07:30 05/10/19 07:29 04/20/19 06:06 Insulin Detemir (Levemir) 16 units BEDTIME SUBQ 04/16/19 21:00 05/09/19 20:59 04/19/19 21:07 Levothyroxine Sodium (Synthroid) 150 mcg ACBREAKFAST ORAL 04/15/19 06:30 05/09/19 06:29 04/20/19 06:01 Nitroglycerin (Ntg) 0.4 mg Q5M X 3 DOSES PRN SL Prn Chest Pain 04/15/19 03:15 05/08/19 21:29 Ondansetron HCl (Zofran) 4 mg Q6H PRN IVP Nausea & Vomiting 04/15/19 03:55 05/08/19 03:54 Promethazine HCl/ Codeine (Phenergan with Codeine) 5 ml Q6H PRN ORAL cough 04/15/19 03:55 05/08/19 03:54 04/17/19 20:46 Tamsulosin HCl (Flomax) 0.4 mg BEDTIME ORAL 04/15/19 21:00 05/09/19 20:59 04/19/19 21:00 An Villa M.D. Apr 20, 2019 11:41
[2019-04-20 12:00] VITALS: BP 110/71
[2019-04-20 16:00] VITALS: BP 130/90
--- NOTE | 2019-04-20 17:33 | Internal Med Progress Note ---
Subjective Date of Service: Apr 20, 2019 Physician Name BrittneyIdris Attending Physician Jewel Giraldo MD Current Medications Medications (Trade) Dose Ordered Sig/Dejon Route PRN Reason Start Time Stop Time Status Last Admin Dose Admin Acetaminophen (Tylenol) 650 mg Q4H PRN ORAL fever 04/15/19 03:48 05/08/19 03:47 04/18/19 09:35 Acetaminophen/ Hydrocodone Bitart ([place] 5/325) 1 tab Q6H PRN ORAL Severe Pain (Pain Scale 7-10) 04/17/19 10:00 04/24/19 09:59 04/20/19 06:07 Albuterol/ Ipratropium (Albuterol/ Ipratropium) 3 ml Q4H PRN HHN Shortness of Breath 04/17/19 15:30 04/21/19 23:29 Albuterol/ Ipratropium (Albuterol/ Ipratropium) 3 ml QIDRT INH 04/17/19 15:00 04/21/19 22:59 04/20/19 15:36 Apixaban (Eliquis) 5 mg BID ORAL 04/15/19 09:00 05/09/19 08:59 04/20/19 08:06 Carvedilol (Coreg) 6.25 mg EVERY 12 HOURS ORAL 04/15/19 09:00 05/09/19 08:59 04/20/19 08:15 Clonidine HCl (Catapres Tab) 0.1 mg Q4H PRN ORAL sbp more than 160 04/15/19 03:49 05/08/19 03:48 Clotrimazole (Lotrimin) 1 applic THREE TIMES A DAY TOPIC 04/20/19 13:00 05/20/19 12:59 04/20/19 14:00 Dextrose (Dextrose 50%) 25 ml Q30M PRN IV Hypoglycemia 04/15/19 03:30 05/09/19 07:29 Dextrose (Dextrose 50%) 50 ml Q30M PRN IV Hypoglycemia 04/15/19 03:30 05/09/19 07:29 Insulin Aspart (NovoLOG) BEFORE MEALS AND HS SUBQ 04/15/19 06:30 05/09/19 13:29 04/20/19 11:42 Insulin Aspart (NovoLOG) 10 units NOVOTIAC SUBQ 04/16/19 07:30 05/10/19 07:29 04/20/19 11:42 Insulin Detemir (Levemir) 16 units BEDTIME SUBQ 04/16/19 21:00 05/09/19 20:59 04/19/19 21:07 Levothyroxine Sodium (Synthroid) 150 mcg ACBREAKFAST ORAL 04/15/19 06:30 05/09/19 06:29 04/20/19 06:01 Nitroglycerin (Ntg) 0.4 mg Q5M X 3 DOSES PRN SL Prn Chest Pain 04/15/19 03:15 05/08/19 21:29 Ondansetron HCl (Zofran) 4 mg Q6H PRN IVP Nausea & Vomiting 04/15/19 03:55 05/08/19 03:54 Promethazine HCl/ Codeine (Phenergan with Codeine) 5 ml Q6H PRN ORAL cough 04/15/19 03:55 05/08/19 03:54 04/17/19 20:46 Tamsulosin HCl (Flomax) 0.4 mg BEDTIME ORAL 04/15/19 21:00 05/09/19 20:59 04/19/19 21:00 Allergies: Coded Allergies: No Known Allergies (Unverified , 10/24/16) ROS Limited/Unobtainable: No Constitutional: Reports: no symptoms HEENT: Reports: no symptoms Cardiovascular: Reports: no symptoms Respiratory: Reports: shortness of breath Gastrointestinal/Abdominal: Reports: no symptoms Genitourinary: Reports: no symptoms Neurologic/Psychiatric: Reports: no symptoms Subjective 73 YO M admitted with COPD exacerbation. Now respiratory failure. Cover for Int Med-DR Giraldo. Objective Last Vital Signs Date Time Temp Pulse Resp B/P (MAP) Pulse Ox O2 Delivery O2 Flow Rate FiO2 04/20/19 16:00 97.8 75 22 130/90 (103) 94 04/20/19 15:33 Nasal Cannula 2.0 28 Laboratory Tests Test 04/20/19 05:45 White Blood Count 11.2 K/UL (4.8-10.8) H Red Blood Count 4.77 M/UL (4.70-6.10) Hemoglobin 14.4 G/DL (14.2-18.0) Hematocrit 42.6 % (42.0-52.0) Mean Corpuscular Volume 89 FL (80-99) Mean Corpuscular Hemoglobin 30.1 PG (27.0-31.0) Mean Corpuscular Hemoglobin Concent 33.7 G/DL (32.0-36.0) Red Cell Distribution Width 14.2 % (11.6-14.8) Platelet Count 227 K/UL (150-450) Mean Platelet Volume 7.1 FL (6.5-10.1) Neutrophils (%) (Auto) 64.6 % (45.0-75.0) Lymphocytes (%) (Auto) 25.3 % (20.0-45.0) Monocytes (%) (Auto) 6.1 % (1.0-10.0) Eosinophils (%) (Auto) 2.8 % (0.0-3.0) Basophils (%) (Auto) 1.2 % (0.0-2.0) Sodium Level 144 MMOL/L (136-145) # Potassium Level 5.0 MMOL/L (3.5-5.1) Chloride Level 109 MMOL/L (98-107) H Carbon Dioxide Level 31 MMOL/L (21-32) Anion Gap 4 mmol/L (5-15) L Blood Urea Nitrogen 30 mg/dL (7-18) H Creatinine 1.1 MG/DL (0.55-1.30) Estimat Glomerular Filtration Rate mL/min (>60) Glucose Level 143 MG/DL (74-106) H Calcium Level 8.6 MG/DL (8.5-10.1) Intake and Output 04/19/19 04/20/19 19:00 07:00 Intake Total 960 ml Output Total 1200 ml 2000 ml Balance -240 ml -2000 ml Intake Oral 600 ml Other 360 ml Output Urine Total 1200 ml 2000 ml # Voids 2 # Bowel Movements 1 1 Objective PHYSICAL EXAMINATION: GENERAL: The patient is awake, responsive, no acute distress. HEAD AND NECK: Pupils are equal and reactive to light. Extraocular muscles intact. Neck was supple. No JVD. LUNGS: Nasal canula;The patient has expiratory wheezes noted. Tachypneic. No rhonchi was noted. HEART: S1, S2. Irregular. No murmur. The patient has a pacemaker in the left-sided chest wall. ABDOMEN: Soft, nondistended, nontender. Mildly obese. EXTREMITIES: No cyanosis, clubbing, edema. NEUROLOGIC: Cranial nerves II through XII grossly normal. Motor is 5/5 in all extremities. Gait is intact. GENITOURINARY: It was noted the patient has a Montgomery catheter. RECTAL: Refused and deferred. PSYCHIATRIC: Mood and affect is intact. Assessment/Plan Assessment/Plan ASSESSMENT: 1. Acute hypoxemic respiratory failure, most likely secondary to acute COPD exacerbation. 2. Acute COPD exacerbation. 3. Pneumonia. 4. Sick sinus syndrome status post pacemaker. 5. Diabetes type 2. 6. Prostate cancer. 7. Hyperkalemia. 8. Insulin induced hyperglycemia. 9. Prostate enlargement. 10. Leukocytosis 11. RBBB PLAN: 1. Med/Surg. 2. D/C Solu-Medrol IV Per Pulmonary consult=Dr. Obrien. 3. Endocrinology=Dr To. Monitor blood glucose level closely. 4. antibiotic=S/P Levaquin. ID=Dr Villa 5. Code status is Full Code. DVT prophylaxis, he is on Eliquis. Idris Lugo MD Apr 20, 2019 17:33
[2019-04-20 20:00] VITALS: BP 116/75
[2019-04-20] MEDS: Tamsulosin 0.4mg cap ORAL SCH (21:47)
[2019-04-20] MEDS: Levemir Flexpen SUBQ SCH (21:55)
[2019-04-21] VITALS: BP 134/82
[2019-04-21] MEDS: NovoLOG Insulin Flexpen SUBQ SCH ×7 (05:48→21:57)
[2019-04-21] MEDS: HYDROcodone/Acetamin 5/325 tab ORAL PRN ×2 (05:55→21:35)
[2019-04-21] MEDS: Albuterol/Ipratropium 3ml neb INH SCH ×4 (07:22→20:02)
[2019-04-21 07:41] VITALS: BP 132/92
[2019-04-21 07:46] LABS: BASOPHILS % (AUTO) 1.2 % (0.0-2.0); EOSINOPHILS % (AUTO) 3.9 % (0.0-3.0); HEMATOCRIT 44.1 % (42.0-52.0); HEMOGLOBIN 14.5 G/DL (14.2-18.0); LYMPHOCYTES % (AUTO) 24.7 % (20.0-45.0); MEAN CORPUSCULAR VOLUME 90 FL (80-99); MONOCYTES % (AUTO) 5.1 % (1.0-10.0); NEUTROPHILS % (AUTO) 65.1 % (45.0-75.0); PLATELET COUNT 216 K/UL (150-450); RED BLOOD COUNT 4.91 M/UL (4.70-6.10); RED CELL DISTRIBUTION WIDTH 14.1 % (11.6-14.8)
[2019-04-21 08:41] LABS: ANION GAP 7 mmol/L (5-15); BLOOD UREA NITROGEN 26 mg/dL (7-18); CALCIUM 8.9 MG/DL (8.5-10.1); CARBON DIOXIDE 29 MMOL/L (21-32); CHLORIDE 100 MMOL/L (98-107); POTASSIUM 5.2 MMOL/L (3.5-5.1); SODIUM 136 MMOL/L (136-145)
[2019-04-21] MEDS: Eliquis 5mg tablet ORAL SCH ×2 (09:22→17:37)
[2019-04-21] MEDS: Carvedilol 6.25mg Tab ORAL SCH ×2 (09:22→21:35)
[2019-04-21] MEDS ORDERED: Sodium Polystyrene Sulfonate 15gm Powder ORAL SCH (10:30)
--- NOTE | 2019-04-21 11:22 | Internal Med Progress Note ---
Subjective Date of Service: Apr 21, 2019 Physician Name BrittneyIdris Attending Physician Jewel Giraldo MD Current Medications Medications (Trade) Dose Ordered Sig/Dejon Route PRN Reason Start Time Stop Time Status Last Admin Dose Admin Acetaminophen (Tylenol) 650 mg Q4H PRN ORAL fever 04/15/19 03:48 05/08/19 03:47 04/18/19 09:35 Acetaminophen/ Hydrocodone Bitart ([place] 5/325) 1 tab Q6H PRN ORAL Severe Pain (Pain Scale 7-10) 04/17/19 10:00 04/24/19 09:59 04/21/19 05:55 Albuterol/ Ipratropium (Albuterol/ Ipratropium) 3 ml Q4H PRN HHN Shortness of Breath 04/17/19 15:30 04/21/19 23:29 Albuterol/ Ipratropium (Albuterol/ Ipratropium) 3 ml QIDRT INH 04/17/19 15:00 04/21/19 22:59 04/21/19 07:22 Apixaban (Eliquis) 5 mg BID ORAL 04/15/19 09:00 05/09/19 08:59 04/21/19 09:22 Carvedilol (Coreg) 6.25 mg EVERY 12 HOURS ORAL 04/15/19 09:00 05/09/19 08:59 04/21/19 09:22 Clonidine HCl (Catapres Tab) 0.1 mg Q4H PRN ORAL sbp more than 160 04/15/19 03:49 05/08/19 03:48 Clotrimazole (Lotrimin) 1 applic THREE TIMES A DAY TOPIC 04/20/19 13:00 05/20/19 12:59 04/21/19 09:00 Dextrose (Dextrose 50%) 25 ml Q30M PRN IV Hypoglycemia 04/15/19 03:30 05/09/19 07:29 Dextrose (Dextrose 50%) 50 ml Q30M PRN IV Hypoglycemia 04/15/19 03:30 05/09/19 07:29 Insulin Aspart (NovoLOG) BEFORE MEALS AND HS SUBQ 04/15/19 06:30 05/09/19 13:29 04/20/19 21:55 Insulin Aspart (NovoLOG) 10 units NOVOTIAC SUBQ 04/16/19 07:30 05/10/19 07:29 04/20/19 17:28 Insulin Detemir (Levemir) 16 units BEDTIME SUBQ 04/16/19 21:00 05/09/19 20:59 04/20/19 21:55 Levothyroxine Sodium (Synthroid) 150 mcg ACBREAKFAST ORAL 04/15/19 06:30 05/09/19 06:29 04/21/19 05:47 Nitroglycerin (Ntg) 0.4 mg Q5M X 3 DOSES PRN SL Prn Chest Pain 04/15/19 03:15 05/08/19 21:29 Ondansetron HCl (Zofran) 4 mg Q6H PRN IVP Nausea & Vomiting 04/15/19 03:55 05/08/19 03:54 Promethazine HCl/ Codeine (Phenergan with Codeine) 5 ml Q6H PRN ORAL cough 04/15/19 03:55 05/08/19 03:54 04/17/19 20:46 Sodium Polystyrene Sulfonate (Kayexalate) 30 gm ONCE ORAL 04/21/19 10:30 04/21/19 11:30 04/21/19 10:30 Tamsulosin HCl (Flomax) 0.4 mg BEDTIME ORAL 04/15/19 21:00 05/09/19 20:59 04/20/19 21:47 Allergies: Coded Allergies: No Known Allergies (Unverified , 10/24/16) ROS Limited/Unobtainable: No Constitutional: Reports: no symptoms HEENT: Reports: no symptoms Cardiovascular: Reports: no symptoms Respiratory: Reports: no symptoms Gastrointestinal/Abdominal: Reports: no symptoms Genitourinary: Reports: no symptoms Neurologic/Psychiatric: Reports: no symptoms Subjective 73 YO M admitted with COPD exacerbation. Now respiratory failure. Cover for Int [place]ubba-DR Giraldo. Objective Last Vital Signs Date Time Temp Pulse Resp B/P (MAP) Pulse Ox O2 Delivery O2 Flow Rate FiO2 04/21/19 09:22 71 132/92 04/21/19 08:41 Nasal Cannula 4.0 04/21/19 07:41 97.6 22 93 04/21/19 07:32 28 Laboratory Tests Test 04/21/19 06:05 White Blood Count 11.0 K/UL (4.8-10.8) H Red Blood Count 4.91 M/UL (4.70-6.10) Hemoglobin 14.5 G/DL (14.2-18.0) Hematocrit 44.1 % (42.0-52.0) Mean Corpuscular Volume 90 FL (80-99) Mean Corpuscular Hemoglobin 29.6 PG (27.0-31.0) Mean Corpuscular Hemoglobin Concent 32.9 G/DL (32.0-36.0) Red Cell Distribution Width 14.1 % (11.6-14.8) Platelet Count 216 K/UL (150-450) Mean Platelet Volume 7.2 FL (6.5-10.1) Neutrophils (%) (Auto) 65.1 % (45.0-75.0) Lymphocytes (%) (Auto) 24.7 % (20.0-45.0) Monocytes (%) (Auto) 5.1 % (1.0-10.0) Eosinophils (%) (Auto) 3.9 % (0.0-3.0) H Basophils (%) (Auto) 1.2 % (0.0-2.0) Sodium Level 136 MMOL/L (136-145) Potassium Level 5.2 MMOL/L (3.5-5.1) H Chloride Level 100 MMOL/L (98-107) Carbon Dioxide Level 29 MMOL/L (21-32) Anion Gap 7 mmol/L (5-15) Blood Urea Nitrogen 26 mg/dL (7-18) H Creatinine 1.0 MG/DL (0.55-1.30) Estimat Glomerular Filtration Rate > 60 mL/min (>60) Glucose Level 161 MG/DL (74-106) H Calcium Level 8.9 MG/DL (8.5-10.1) Intake and Output 04/20/19 04/21/19 19:00 07:00 Intake Total 708 ml Output Total 1400 ml 1200 ml Balance -692 ml -1200 ml Intake Oral 708 ml Output Urine Total 1400 ml 1200 ml # Voids 2 3 # Bowel Movements 1 Objective PHYSICAL EXAMINATION: GENERAL: The patient is awake, responsive, no acute distress. HEAD AND NECK: Pupils are equal and reactive to light. Extraocular muscles intact. Neck was supple. No JVD. LUNGS: Nasal canula;The patient has expiratory wheezes noted. Tachypneic. No rhonchi was noted. HEART: S1, S2. Irregular. No murmur. The patient has a pacemaker in the left-sided chest wall. ABDOMEN: Soft, nondistended, nontender. Mildly obese. EXTREMITIES: No cyanosis, clubbing, edema. NEUROLOGIC: Cranial nerves II through XII grossly normal. Motor is 5/5 in all extremities. Gait is intact. GENITOURINARY: It was noted the patient has a [place] catheter. RECTAL: Refused and deferred. PSYCHIATRIC: Mood and affect is intact. Assessment/Plan Assessment/Plan ASSESSMENT: 1. Acute hypoxemic respiratory failure, most likely secondary to acute COPD exacerbation. 2. Acute COPD exacerbation. 3. Pneumonia. 4. Sick sinus syndrome status post pacemaker. 5. Diabetes type 2. 6. Prostate cancer. 7. Hyperkalemia. 8. Insulin induced hyperglycemia. 9. Prostate enlargement. 10. Leukocytosis 11. RBBB PLAN: 1. Med/Surg. 2. D/C Solu-Medrol IV Per Pulmonary consult=Dr. Obrien. 3. Endocrinology=Dr To. Monitor blood glucose level closely. 4. antibiotic=S/P Levaquin. ID=Dr Villa 5. Code status is Full Code. DVT prophylaxis, he is on Eliquis. Idris Lugo MD Apr 21, 2019 11:22
[2019-04-21] MEDS ORDERED: LEVEMIR FL100 UNIT/1 SUBQ (11:27)
[2019-04-21] MEDS ORDERED: ELIQUIS5 MG ORAL (11:27)
[2019-04-21] MEDS ORDERED: SYNTHROID150 MCG ORAL (11:27)
[2019-04-21] MEDS ORDERED: FLOMAX0.4 MG ORAL (11:27)
[2019-04-21] MEDS ORDERED: COREG6.25 MG ORAL (11:27)
[2019-04-21 12:00] VITALS: BP 119/69
--- NOTE | 2019-04-21 12:23 | Pulmonology Progress Note ---
Assessment/Plan Problems: (1) Respiratory failure with hypoxia (2) COPD exacerbation (3) Pneumonia (4) Pacemaker (5) Diabetes mellitus (6) Prostate cancer Assessment/Plan CT of chest with contrast still pending repeat CXR still short of breath coughing phlegm off steroids and antibiotics sliding scale diabetic diet cardio note reviewed. Subjective ROS Limited/Unobtainable: No Constitutional: Reports: no symptoms HEENT: Repors: no symptoms Allergies: Coded Allergies: No Known Allergies (Unverified , 10/24/16) Objective Last 24 Hour Vital Signs Date Time Temp Pulse Resp B/P (MAP) Pulse Ox O2 Delivery O2 Flow Rate FiO2 04/21/19 12:00 97.6 69 22 119/69 (86) 93 04/21/19 11:35 75 20 97 Nasal Cannula 2.0 28 70 18 95 04/21/19 09:22 71 132/92 04/21/19 08:41 Nasal Cannula 4.0 04/21/19 07:41 97.6 71 22 132/92 (105) 93 04/21/19 07:40 74 04/21/19 07:32 96 Nasal Cannula 2.0 28 04/21/19 07:22 83 21 97 Nasal Cannula 2.0 28 80 20 95 04/21/19 04:00 70 04/21/19 00:00 97.6 72 22 134/82 (99) 93 04/21/19 00:00 70 04/20/19 21:53 73 116/75 04/20/19 21:00 Nasal Cannula 4.0 04/20/19 20:10 95 Nasal Cannula 2.0 28 04/20/19 20:00 98.3 73 22 116/75 (89) 90 04/20/19 16:00 74 04/20/19 16:00 97.8 75 22 130/90 (103) 94 04/20/19 15:33 77 22 98 Nasal Cannula 2.0 28 79 22 93 Intake and Output 04/20/19 04/21/19 19:00 07:00 Intake Total 708 ml Output Total 1400 ml 1200 ml Balance -692 ml -1200 ml Intake Oral 708 ml Output Urine Total 1400 ml 1200 ml # Voids 2 3 # Bowel Movements 1 Objective still short of breath, complaining about everything. General Appearance: WD/WN HEENT: normocephalic Respiratory/Chest: chest wall non-tender, accessory muscle use Cardiovascular: normal peripheral pulses Abdomen: normal bowel sounds Laboratory Tests 04/21/19 06:05: White Blood Count 11.0H, Red Blood Count 4.91, Hemoglobin 14.5, Hematocrit 44.1 , Mean Corpuscular Volume 90, Mean Corpuscular Hemoglobin 29.6, Mean Corpuscular Hemoglobin Concent 32.9, Red Cell Distribution Width 14.1, Platelet Count 216, Mean Platelet Volume 7.2, Neutrophils (%) (Auto) 65.1, Lymphocytes (% ) (Auto) 24.7, Monocytes (%) (Auto) 5.1, Eosinophils (%) (Auto) 3.9H, Basophils (%) (Auto) 1.2, Sodium Level 136, Potassium Level 5.2H, Chloride Level 100, Carbon Dioxide Level 29, Anion Gap 7, Blood Urea Nitrogen 26H, Creatinine 1.0, Estimat Glomerular Filtration Rate > 60, Glucose Level 161H, Calcium Level 8.9 Current Medications Medications (Trade) Dose Ordered Sig/Dejon Route PRN Reason Start Time Stop Time Status Last Admin Dose Admin Acetaminophen (Tylenol) 650 mg Q4H PRN ORAL fever 04/15/19 03:48 05/08/19 03:47 04/18/19 09:35 Acetaminophen/ Hydrocodone Bitart ([place] 5/325) 1 tab Q6H PRN ORAL Severe Pain (Pain Scale 7-10) 04/17/19 10:00 04/24/19 09:59 04/21/19 05:55 Albuterol/ Ipratropium (Albuterol/ Ipratropium) 3 ml Q4H PRN HHN Shortness of Breath 04/17/19 15:30 04/21/19 23:29 Albuterol/ Ipratropium (Albuterol/ Ipratropium) 3 ml QIDRT INH 04/17/19 15:00 04/21/19 22:59 04/21/19 11:35 Apixaban (Eliquis) 5 mg BID ORAL 04/15/19 09:00 05/09/19 08:59 04/21/19 09:22 Carvedilol (Coreg) 6.25 mg EVERY 12 HOURS ORAL 04/15/19 09:00 05/09/19 08:59 04/21/19 09:22 Clonidine HCl (Catapres Tab) 0.1 mg Q4H PRN ORAL sbp more than 160 04/15/19 03:49 05/08/19 03:48 Clotrimazole (Lotrimin) 1 applic THREE TIMES A DAY TOPIC 04/20/19 13:00 05/20/19 12:59 04/21/19 09:00 Dextrose (Dextrose 50%) 25 ml Q30M PRN IV Hypoglycemia 04/15/19 03:30 05/09/19 07:29 Dextrose (Dextrose 50%) 50 ml Q30M PRN IV Hypoglycemia 04/15/19 03:30 05/09/19 07:29 Insulin Aspart (NovoLOG) BEFORE MEALS AND HS SUBQ 04/15/19 06:30 05/09/19 13:29 04/21/19 11:34 Insulin Aspart (NovoLOG) 10 units NOVOTIAC SUBQ 04/16/19 07:30 05/10/19 07:29 04/21/19 11:34 Insulin Detemir (Levemir) 16 units BEDTIME SUBQ 04/16/19 21:00 05/09/19 20:59 04/20/19 21:55 Levothyroxine Sodium (Synthroid) 150 mcg ACBREAKFAST ORAL 04/15/19 06:30 05/09/19 06:29 04/21/19 05:47 Nitroglycerin (Ntg) 0.4 mg Q5M X 3 DOSES PRN SL Prn Chest Pain 04/15/19 03:15 05/08/19 21:29 Ondansetron HCl (Zofran) 4 mg Q6H PRN IVP Nausea & Vomiting 04/15/19 03:55 05/08/19 03:54 Promethazine HCl/ Codeine (Phenergan with Codeine) 5 ml Q6H PRN ORAL cough 04/15/19 03:55 05/08/19 03:54 04/17/19 20:46 Tamsulosin HCl (Flomax) 0.4 mg BEDTIME ORAL 04/15/19 21:00 05/09/19 20:59 04/20/19 21:47 Goldie Obrien MD Apr 21, 2019 12:23
--- NOTE | 2019-04-21 12:56 | Diagnostic Imaging Report ---
ndication: Dyspnea, chest pain, shortness of breath Technique: IV administration nonionic contrast. Spiral acquisitions obtained from the lung bases to the lung apices. Multiplanar and 3-D reconstructions were generated. Total dose length product 236 mGycm. CTDIvol(s) 42 mGy. Dose reduction achieved using automated exposure control Comparison: none Findings: There is some image degradation due to motion artifact. Pulmonary arteries are well-opacified. No definite intraluminal filling defects or other findings to suggest acute pulmonary embolus demonstrated. No pulmonary arterial dilatation No right ventricular dilatation. The heart size is borderline enlarged. The thoracic aorta is not well opacified, but no definite findings to suggest aneurysm or dissection demonstrated. Lungs demonstrate diffuse groundglass opacity throughout the right lung and left upper lobe. More scattered groundglass opacities are seen in the left lower lobe. These are interspersed with areas of focal hyperinflation likely representing small bullae. These are predominantly in the upper lobes. There is considerable nodular and groundglass consolidation involving the right lower lobe. Some atelectasis and/or patchy consolidation is seen at the left lung base. No definite effusions. No pericardial effusion demonstrated. No mediastinal or hilar mass or adenopathy. There is a left chest pacemaker. The included thyroid is unremarkable. No axillary or chest wall mass or adenopathy. Included upper abdominal anatomy is unremarkable. The bones demonstrate mild degenerative spondylosis changes Impression: Somewhat limited exam, due to motion artifact No definite evidence of pulmonary embolus or other acute thoracic vascular pathology Borderline cardiomegaly Diffuse bilateral pulmonary parenchymal groundglass opacity. Interspersed small bullae digestive this is due to COPD changes, but could also indicate a component of pulmonary edema Considerable consolidation in the right lower lobe, likely pneumonia. Less extensive consolidation and atelectasis is seen at the left lung base Pacemaker, degenerative spondylosis incidentally noted The CT scanner at [facility] is accredited by the [employer] and the scans are performed using protocols designed to limit radiation exposure to as low as reasonably achievable to attain images of sufficient resolution adequate for diagnostic evaluation.
[2019-04-21] MEDS ORDERED: Nitroglycerin Subl 0.4mg tab SL PRN (14:15)
[2019-04-21] MEDS ORDERED: Promethazine/Codeine 5ml UD ORAL PRN (14:19)
[2019-04-21] MEDS ORDERED: Albuterol/Ipratropium 3ml neb HHN PRN (15:30)
[2019-04-21 16:00] VITALS: BP 111/72
--- NOTE | 2019-04-21 17:05 | Infectious Diseases Prog Note ---
Assessment/Plan Assessment/Plan Assessment: Acute hypoxic respiratory failure s/p bipap, now at RA COPD exacerbation CHF exacerbation PNA -04/21 CTA chest:Somewhat limited exam, due to motion artifact. No definite evidence of pulmonary embolus or other acute thoracic vascular pathology. Borderline cardiomegaly. Diffuse bilateral pulmonary parenchymal groundglass opacity. Interspersed small bullae digestive this is due to COPD changes, but could also indicate a component of pulmonary edema. Considerable consolidation in the right lower lobe, likely pneumonia. Less extensive consolidation and atelectasis is seen at the left lung base. Pacemaker, degenerative spondylosis incidentally noted -04/19 CXR: Mild pulmonary vascular congestion -04/16 CXR: No acute disease -04/13 CXR: Suspected mild pulmonary vascular congestion. Correlate clinically -04/08 CXR: Mild pulmonary vascular congestion suspected Afebrile Leukocytosis,(s/p high dose steroids), now improving KAYLAN, improving Hyperglycemia COPD CAD CHF prostate cancer s/p PPM former smoker Plan: -Start empiric Zosyn for PNA -04/15 SP Levaquin #7 -04/08 SP Ceftriaxone x1, Azithromycin x1 -Monitor CBC/CMP, temperatures -aspiration precautions -sp cx Thank you for this consultation. Will continue to follow along with you. Discussed with RN Subjective Allergies: Coded Allergies: No Known Allergies (Unverified , 10/24/16) Subjective afebrile wbc remains at 11 off abx Objective Vital Signs Last 24 Hour Vital Signs Date Time Temp Pulse Resp B/P (MAP) Pulse Ox O2 Delivery O2 Flow Rate FiO2 04/21/19 15:10 86 21 98 Nasal Cannula 2.0 28 82 19 95 04/21/19 12:00 97.6 69 22 119/69 (86) 93 04/21/19 11:35 75 20 97 Nasal Cannula 2.0 28 70 18 95 04/21/19 09:22 71 132/92 04/21/19 08:41 Nasal Cannula 4.0 04/21/19 07:41 97.6 71 22 132/92 (105) 93 04/21/19 07:40 74 04/21/19 07:32 96 Nasal Cannula 2.0 28 04/21/19 07:22 83 21 97 Nasal Cannula 2.0 28 80 20 95 04/21/19 04:00 70 04/21/19 00:00 97.6 72 22 134/82 (99) 93 04/21/19 00:00 70 04/20/19 21:53 73 116/75 04/20/19 21:00 Nasal Cannula 4.0 04/20/19 20:10 95 Nasal Cannula 2.0 28 04/20/19 20:00 98.3 73 22 116/75 (89) 90 Height (Feet): 6 Height (Inches): 0.00 Weight (Pounds): 191 Objective General Appearance: no distress HEENT: normocephalic, atraumatic Neck: supple Respiratory/Chest: chest wall non-tender, rhonchi - left, rhonchi - right Cardiovascular/Chest: no murmurs Extremities: normal range of motion Laboratory Tests Test 04/21/19 06:05 White Blood Count 11.0 K/UL (4.8-10.8) H Red Blood Count 4.91 M/UL (4.70-6.10) Hemoglobin 14.5 G/DL (14.2-18.0) Hematocrit 44.1 % (42.0-52.0) Mean Corpuscular Volume 90 FL (80-99) Mean Corpuscular Hemoglobin 29.6 PG (27.0-31.0) Mean Corpuscular Hemoglobin Concent 32.9 G/DL (32.0-36.0) Red Cell Distribution Width 14.1 % (11.6-14.8) Platelet Count 216 K/UL (150-450) Mean Platelet Volume 7.2 FL (6.5-10.1) Neutrophils (%) (Auto) 65.1 % (45.0-75.0) Lymphocytes (%) (Auto) 24.7 % (20.0-45.0) Monocytes (%) (Auto) 5.1 % (1.0-10.0) Eosinophils (%) (Auto) 3.9 % (0.0-3.0) H Basophils (%) (Auto) 1.2 % (0.0-2.0) Sodium Level 136 MMOL/L (136-145) Potassium Level 5.2 MMOL/L (3.5-5.1) H Chloride Level 100 MMOL/L (98-107) Carbon Dioxide Level 29 MMOL/L (21-32) Anion Gap 7 mmol/L (5-15) Blood Urea Nitrogen 26 mg/dL (7-18) H Creatinine 1.0 MG/DL (0.55-1.30) Estimat Glomerular Filtration Rate > 60 mL/min (>60) Glucose Level 161 MG/DL (74-106) H Calcium Level 8.9 MG/DL (8.5-10.1) Current Medications Medications (Trade) Dose Ordered Sig/Dejon Route PRN Reason Start Time Stop Time Status Last Admin Dose Admin Acetaminophen (Tylenol) 650 mg Q4H PRN ORAL fever 04/21/19 14:18 05/21/19 14:17 Acetaminophen/ Hydrocodone Bitart ([place] 5/325) 1 tab Q6H PRN ORAL Severe Pain (Pain Scale 7-10) 04/21/19 14:19 04/28/19 14:18 Albuterol/ Ipratropium (Albuterol/ Ipratropium) 3 ml Q4H PRN HHN Shortness of Breath 04/21/19 15:30 04/21/19 23:29 Albuterol/ Ipratropium (Albuterol/ Ipratropium) 3 ml QIDRT INH 04/21/19 15:00 04/21/19 22:59 04/21/19 15:00 Apixaban (Eliquis) 5 mg BID ORAL 04/21/19 18:00 05/09/19 08:59 Carvedilol (Coreg) 6.25 mg EVERY 12 HOURS ORAL 04/21/19 21:00 05/09/19 08:59 Clonidine HCl (Catapres Tab) 0.1 mg Q4H PRN ORAL sbp more than 160 04/21/19 14:18 05/21/19 14:17 Clotrimazole (Lotrimin) 1 applic THREE TIMES A DAY TOPIC 04/21/19 18:00 05/20/19 12:59 Dextrose (Dextrose 50%) 25 ml Q30M PRN IV Hypoglycemia 04/21/19 14:30 05/09/19 07:29 Dextrose (Dextrose 50%) 50 ml Q30M PRN IV Hypoglycemia 04/21/19 14:30 05/09/19 07:29 Insulin Aspart (NovoLOG) BEFORE MEALS AND HS SUBQ 04/21/19 16:30 05/09/19 13:29 04/21/19 16:41 Insulin Aspart (NovoLOG) 10 units NOVOTIAC SUBQ 04/21/19 16:50 05/10/19 07:29 04/21/19 16:40 Insulin Detemir (Levemir) 16 units BEDTIME SUBQ 04/21/19 21:00 05/09/19 20:59 Levothyroxine Sodium (Synthroid) 150 mcg ACBREAKFAST ORAL 04/22/19 06:30 05/09/19 06:29 Nitroglycerin (Ntg) 0.4 mg Q5M X 3 DOSES PRN SL Prn Chest Pain 04/21/19 14:15 05/08/19 21:29 Ondansetron HCl (Zofran) 4 mg Q6H PRN IVP Nausea & Vomiting 04/21/19 14:19 05/21/19 14:18 Promethazine HCl/ Codeine (Phenergan with Codeine) 5 ml Q6H PRN ORAL cough 04/21/19 14:19 05/21/19 14:18 Tamsulosin HCl (Flomax) 0.4 mg BEDTIME ORAL 04/21/19 21:00 05/09/19 20:59 An Villa M.D. Apr 21, 2019 17:04
[2019-04-21] MEDS: Piperacillin/Tazobactam 3.375 GM in NS 110 ML IVPB SCH (17:51)
--- NOTE | 2019-04-21 18:21 | General Progress Note ---
Assessment/Plan Problem List: (1) COPD exacerbation ICD Codes: J44.1 - Chronic obstructive pulmonary disease with (acute) exacerbation SNOMED: 519171810 (2) Respiratory failure with hypoxia ICD Codes: J96.91 - Respiratory failure, unspecified with hypoxia SNOMED: 97869367307647069 (3) Diabetes mellitus ICD Codes: E11.9 - Type 2 diabetes mellitus without complications SNOMED: 30058893 (4) Pacemaker ICD Codes: Z95.0 - Presence of cardiac pacemaker SNOMED: 235641004 (5) Prostate cancer ICD Codes: C61 - Malignant neoplasm of prostate SNOMED: 282529637 (6) Hypothyroid ICD Codes: E03.9 - Hypothyroidism, unspecified SNOMED: 48337017 Status: stable, progressing Assessment/Plan: continue Levemir 16 units qhs continue Novolog 10 units ac tid continue NISS ac / hs Subjective Allergies: Coded Allergies: No Known Allergies (Unverified , 10/24/16) All Systems: reviewed and negative except above Subjective events noted glucose values are mostly stable he's been receiving scheduled insulin Item Value Date Time Bedside Blood Glucose 170 mg/dl H 04/21/19 1641 Bedside Blood Glucose 215 mg/dl H 04/21/19 1156 Bedside Blood Glucose 166 mg/dl H 04/21/19 0544 Bedside Blood Glucose 157 mg/dl H 04/20/19 2155 Objective Last 24 Hour Vital Signs Date Time Temp Pulse Resp B/P (MAP) Pulse Ox O2 Delivery O2 Flow Rate FiO2 04/21/19 16:00 97.4 72 22 111/72 (85) 91 04/21/19 15:10 86 21 98 Nasal Cannula 2.0 28 82 19 95 04/21/19 12:00 97.6 69 22 119/69 (86) 93 04/21/19 11:35 75 20 97 Nasal Cannula 2.0 28 70 18 95 04/21/19 09:22 71 132/92 04/21/19 08:41 Nasal Cannula 4.0 04/21/19 07:41 97.6 71 22 132/92 (105) 93 04/21/19 07:40 74 04/21/19 07:32 96 Nasal Cannula 2.0 28 04/21/19 07:22 83 21 97 Nasal Cannula 2.0 28 80 20 95 04/21/19 04:00 70 04/21/19 00:00 97.6 72 22 134/82 (99) 93 04/21/19 00:00 70 04/20/19 21:53 73 116/75 04/20/19 21:00 Nasal Cannula 4.0 04/20/19 20:10 95 Nasal Cannula 2.0 28 04/20/19 20:00 98.3 73 22 116/75 (89) 90 Intake and Output 04/20/19 04/21/19 19:00 07:00 Intake Total 708 ml Output Total 1400 ml 1200 ml Balance -692 ml -1200 ml Intake Oral 708 ml Output Urine Total 1400 ml 1200 ml # Voids 2 3 # Bowel Movements 1 Laboratory Tests 04/21/19 06:05: White Blood Count 11.0H, Red Blood Count 4.91, Hemoglobin 14.5, Hematocrit 44.1 , Mean Corpuscular Volume 90, Mean Corpuscular Hemoglobin 29.6, Mean Corpuscular Hemoglobin Concent 32.9, Red Cell Distribution Width 14.1, Platelet Count 216, Mean Platelet Volume 7.2, Neutrophils (%) (Auto) 65.1, Lymphocytes (% ) (Auto) 24.7, Monocytes (%) (Auto) 5.1, Eosinophils (%) (Auto) 3.9H, Basophils (%) (Auto) 1.2, Sodium Level 136, Potassium Level 5.2H, Chloride Level 100, Carbon Dioxide Level 29, Anion Gap 7, Blood Urea Nitrogen 26H, Creatinine 1.0, Estimat Glomerular Filtration Rate > 60, Glucose Level 161H, Calcium Level 8.9 Height (Feet): 6 Height (Inches): 0.00 Weight (Pounds): 191 General Appearance: no apparent distress Neck: normal alignment Cardiovascular: normal rate Respiratory/Chest: decreased breath sounds Pelvis: normal external exam Edema: no edema noted Arm (L), no edema noted Arm (R), no edema noted Leg (L), no edema noted Leg (R), no edema noted Pedal (L), no edema noted Pedal (R), no edema noted Generalized Objective Current Medications Medications (Trade) Dose Ordered Sig/Dejon Route PRN Reason Start Time Stop Time Status Last Admin Dose Admin Acetaminophen (Tylenol) 650 mg Q4H PRN ORAL fever 04/21/19 14:18 05/21/19 14:17 Acetaminophen/ Hydrocodone Bitart ([place] 5/325) 1 tab Q6H PRN ORAL Severe Pain (Pain Scale 7-10) 04/21/19 14:19 04/28/19 14:18 Albuterol/ Ipratropium (Albuterol/ Ipratropium) 3 ml Q4H PRN HHN Shortness of Breath 04/21/19 15:30 04/21/19 23:29 Albuterol/ Ipratropium (Albuterol/ Ipratropium) 3 ml QIDRT INH 04/21/19 15:00 04/21/19 22:59 04/21/19 15:00 Apixaban (Eliquis) 5 mg BID ORAL 04/21/19 18:00 05/09/19 08:59 04/21/19 17:37 Carvedilol (Coreg) 6.25 mg EVERY 12 HOURS ORAL 04/21/19 21:00 05/09/19 08:59 Clonidine HCl (Catapres Tab) 0.1 mg Q4H PRN ORAL sbp more than 160 04/21/19 14:18 05/21/19 14:17 Clotrimazole (Lotrimin) 1 applic THREE TIMES A DAY TOPIC 04/21/19 18:00 05/20/19 12:59 04/21/19 17:38 Dextrose (Dextrose 50%) 25 ml Q30M PRN IV Hypoglycemia 04/21/19 14:30 05/09/19 07:29 Dextrose (Dextrose 50%) 50 ml Q30M PRN IV Hypoglycemia 04/21/19 14:30 05/09/19 07:29 Insulin Aspart (NovoLOG) BEFORE MEALS AND HS SUBQ 04/21/19 16:30 05/09/19 13:29 04/21/19 16:41 Insulin Aspart (NovoLOG) 10 units NOVOTIAC SUBQ 04/21/19 16:50 05/10/19 07:29 04/21/19 16:40 Insulin Detemir (Levemir) 16 units BEDTIME SUBQ 04/21/19 21:00 05/09/19 20:59 Levothyroxine Sodium (Synthroid) 150 mcg ACBREAKFAST ORAL 04/22/19 06:30 05/09/19 06:29 Nitroglycerin (Ntg) 0.4 mg Q5M X 3 DOSES PRN SL Prn Chest Pain 04/21/19 14:15 05/08/19 21:29 Ondansetron HCl (Zofran) 4 mg Q6H PRN IVP Nausea & Vomiting 04/21/19 14:19 05/21/19 14:18 Piperacillin Sod/ Tazobactam Sod 3.375 gm/Sodium Chloride 110 ml @ 27.5 mls/hr Q8H IVPB 04/21/19 18:00 04/28/19 17:59 04/21/19 17:51 Promethazine HCl/ Codeine (Phenergan with Codeine) 5 ml Q6H PRN ORAL cough 04/21/19 14:19 05/21/19 14:18 Tamsulosin HCl (Flomax) 0.4 mg BEDTIME ORAL 04/21/19 21:00 05/09/19 20:59 Geovanni To MD Apr 21, 2019 18:21
[2019-04-21 20:00] VITALS: BP 124/76
[2019-04-21] MEDS ORDERED: Tamsulosin 0.4mg cap ORAL SCH (21:00)
[2019-04-21] MEDS: Levemir Flexpen SUBQ SCH (21:57)
[2019-04-21 23:34] VITALS: BP 131/80
[2019-04-22] MEDS: Piperacillin/Tazobactam 3.375 GM in NS 110 ML IVPB SCH ×3 (02:13→18:04)
[2019-04-22 03:58] VITALS: BP 126/75
[2019-04-22] MEDS: HYDROcodone/Acetamin 5/325 tab ORAL PRN ×2 (05:34→18:20)
[2019-04-22] MEDS: Levemir Flexpen SUBQ SCH ×2 (05:56→20:42)
[2019-04-22] MEDS: NovoLOG Insulin Flexpen SUBQ SCH ×7 (05:57→20:43)
[2019-04-22 06:08] LABS: BASOPHILS % (AUTO) 0.6 % (0.0-2.0); EOSINOPHILS % (AUTO) 3.6 % (0.0-3.0); HEMATOCRIT 41.4 % (42.0-52.0); HEMOGLOBIN 13.5 G/DL (14.2-18.0); LYMPHOCYTES % (AUTO) 23.8 % (20.0-45.0); MEAN CORPUSCULAR VOLUME 90 FL (80-99); MONOCYTES % (AUTO) 5.6 % (1.0-10.0); NEUTROPHILS % (AUTO) 66.4 % (45.0-75.0); PLATELET COUNT 184 K/UL (150-450); RED BLOOD COUNT 4.62 M/UL (4.70-6.10); RED CELL DISTRIBUTION WIDTH 14.4 % (11.6-14.8); WHITE BLOOD COUNT 10.5 K/UL (4.8-10.8)
--- NOTE | 2019-04-22 06:47 | General Progress Note ---
Assessment/Plan Problem List: (1) COPD exacerbation ICD Codes: J44.1 - Chronic obstructive pulmonary disease with (acute) exacerbation SNOMED: 427375970 (2) Respiratory failure with hypoxia ICD Codes: J96.91 - Respiratory failure, unspecified with hypoxia SNOMED: 04878703923708885 (3) Diabetes mellitus ICD Codes: E11.9 - Type 2 diabetes mellitus without complications SNOMED: 15081503 (4) Pacemaker ICD Codes: Z95.0 - Presence of cardiac pacemaker SNOMED: 478455287 (5) Prostate cancer ICD Codes: C61 - Malignant neoplasm of prostate SNOMED: 683722682 (6) Hypothyroid ICD Codes: E03.9 - Hypothyroidism, unspecified SNOMED: 84538013 Status: stable, progressing Assessment/Plan: continue Levemir 16 units qhs continue Novolog 10 units ac tid continue NISS ac / hs Subjective Allergies: Coded Allergies: No Known Allergies (Unverified , 10/24/16) All Systems: reviewed and negative except above Subjective events noted glucose values are mostly stable appears comfortable Item Value Date Time Bedside Blood Glucose 201 mg/dl H 04/22/19 0645 Bedside Blood Glucose 170 mg/dl H 04/21/19 1641 Bedside Blood Glucose 215 mg/dl H 04/21/19 1156 Bedside Blood Glucose 166 mg/dl H 04/21/19 0544 Objective Last 24 Hour Vital Signs Date Time Temp Pulse Resp B/P (MAP) Pulse Ox O2 Delivery O2 Flow Rate FiO2 04/22/19 03:58 98.0 70 22 126/75 (92) 91 04/21/19 23:34 98.2 73 24 131/80 (97) 90 04/21/19 20:10 Nasal Cannula 4.0 04/21/19 20:05 94 Nasal Cannula 2.0 28 04/21/19 20:04 90 20 96 Room Air 21 95 24 90 04/21/19 20:00 97.9 75 21 124/76 (92) 90 04/21/19 16:00 97.4 72 22 111/72 (85) 91 04/21/19 15:10 86 21 98 Nasal Cannula 2.0 28 82 19 95 04/21/19 12:00 97.6 69 22 119/69 (86) 93 04/21/19 11:35 75 20 97 Nasal Cannula 2.0 28 70 18 95 04/21/19 09:22 71 132/92 04/21/19 08:41 Nasal Cannula 4.0 04/21/19 07:41 97.6 71 22 132/92 (105) 93 04/21/19 07:40 74 04/21/19 07:32 96 Nasal Cannula 2.0 28 04/21/19 07:22 83 21 97 Nasal Cannula 2.0 28 80 20 95 Intake and Output 04/21/19 04/22/19 19:00 07:00 Intake Total 600 ml 480 ml Output Total 1100 ml 1250 ml Balance -500 ml -770 ml Intake Oral 600 ml 480 ml Output Urine Total 1100 ml 1250 ml # Voids 2 2 # Bowel Movements 1 2 Laboratory Tests 04/22/19 04:28: White Blood Count 10.5, Red Blood Count 4.62L, Hemoglobin 13.5L, Hematocrit 41.4L, Mean Corpuscular Volume 90, Mean Corpuscular Hemoglobin 29.1, Mean Corpuscular Hemoglobin Concent 32.5, Red Cell Distribution Width 14.4, Platelet Count 184, Mean Platelet Volume 7.2, Neutrophils (%) (Auto) 66.4, Lymphocytes (% ) (Auto) 23.8, Monocytes (%) (Auto) 5.6, Eosinophils (%) (Auto) 3.6H, Basophils (%) (Auto) 0.6, Sodium Level [Pending], Potassium Level [Pending], Chloride Level [Pending], Carbon Dioxide Level [Pending], Blood Urea Nitrogen [Pending], Creatinine [Pending], Estimat Glomerular Filtration Rate [Pending], Glucose Level [Pending], Calcium Level [Pending], Total Bilirubin [Pending], Aspartate Amino Transf (AST/SGOT) [Pending], Alanine Aminotransferase (ALT/SGPT) [Pending] , Alkaline Phosphatase [Pending], Pro-B-Type Natriuretic Peptide [Pending], Total Protein [Pending], Albumin [Pending], Globulin [Pending] Height (Feet): 6 Height (Inches): 0.00 Weight (Pounds): 191 General Appearance: no apparent distress Neck: normal alignment Cardiovascular: normal rate Respiratory/Chest: decreased breath sounds Abdomen: normal bowel sounds Pelvis: normal external exam Objective Current Medications Medications (Trade) Dose Ordered Sig/Dejon Route PRN Reason Start Time Stop Time Status Last Admin Dose Admin Acetaminophen (Tylenol) 650 mg Q4H PRN ORAL fever 04/21/19 14:18 05/21/19 14:17 Acetaminophen/ Hydrocodone Bitart ([place] 5/325) 1 tab Q6H PRN ORAL Severe Pain (Pain Scale 7-10) 04/21/19 14:19 04/28/19 14:18 04/22/19 05:34 Apixaban (Eliquis) 5 mg BID ORAL 04/21/19 18:00 05/09/19 08:59 04/21/19 17:37 Carvedilol (Coreg) 6.25 mg EVERY 12 HOURS ORAL 04/21/19 21:00 05/09/19 08:59 Clonidine HCl (Catapres Tab) 0.1 mg Q4H PRN ORAL sbp more than 160 04/21/19 14:18 05/21/19 14:17 Clotrimazole (Lotrimin) 1 applic THREE TIMES A DAY TOPIC 04/21/19 18:00 05/20/19 12:59 04/21/19 17:38 Dextrose (Dextrose 50%) 25 ml Q30M PRN IV Hypoglycemia 04/21/19 14:30 05/09/19 07:29 Dextrose (Dextrose 50%) 50 ml Q30M PRN IV Hypoglycemia 04/21/19 14:30 05/09/19 07:29 Insulin Aspart (NovoLOG) BEFORE MEALS AND HS SUBQ 04/21/19 16:30 05/09/19 13:29 04/22/19 05:57 Insulin Aspart (NovoLOG) 10 units NOVOTIAC SUBQ 04/21/19 16:50 05/10/19 07:29 04/22/19 06:45 Insulin Detemir (Levemir) 16 units BEDTIME SUBQ 04/21/19 21:00 05/09/19 20:59 Levothyroxine Sodium (Synthroid) 150 mcg ACBREAKFAST ORAL 04/22/19 06:30 05/09/19 06:29 Nitroglycerin (Ntg) 0.4 mg Q5M X 3 DOSES PRN SL Prn Chest Pain 04/21/19 14:15 05/08/19 21:29 Ondansetron HCl (Zofran) 4 mg Q6H PRN IVP Nausea & Vomiting 04/21/19 14:19 05/21/19 14:18 Piperacillin Sod/ Tazobactam Sod 3.375 gm/Sodium Chloride 110 ml @ 27.5 mls/hr Q8H IVPB 04/21/19 18:00 04/28/19 17:59 04/22/19 02:13 Promethazine HCl/ Codeine (Phenergan with Codeine) 5 ml Q6H PRN ORAL cough 04/21/19 14:19 05/21/19 14:18 Tamsulosin HCl (Flomax) 0.4 mg BEDTIME ORAL 04/21/19 21:00 05/09/19 20:59 Geovanni To MD Apr 22, 2019 06:47
[2019-04-22 07:01] LABS: ALANINE AMINOTRANSFERASE 50 U/L (12-78); ALBUMIN 2.9 G/DL (3.4-5.0); ALBUMIN/GLOBULIN RATIO 0.8 (1.0-2.7); ALKALINE PHOSPHATASE 72 U/L (46-116); ANION GAP 3 mmol/L (5-15); ASPARTATE AMINO TRANSFERASE 27 U/L (15-37); BILIRUBIN,TOTAL 0.2 MG/DL (0.2-1.0); BLOOD UREA NITROGEN 26 mg/dL (7-18); CALCIUM 8.7 MG/DL (8.5-10.1); CARBON DIOXIDE 32 MMOL/L (21-32); CHLORIDE 102 MMOL/L (98-107); CREATININE 1.1 MG/DL (0.55-1.30); POTASSIUM 4.8 MMOL/L (3.5-5.1); SODIUM 137 MMOL/L (136-145)
[2019-04-22 08:00] VITALS: BP 126/77
[2019-04-22] MEDS: Carvedilol 6.25mg Tab ORAL SCH ×2 (08:57→20:41)
[2019-04-22] MEDS: Eliquis 5mg tablet ORAL SCH ×2 (08:58→18:05)
--- NOTE | 2019-04-22 11:04 | Diagnostic Imaging Report ---
Indication: Shortness of breath Technique: One view of the chest Comparison: 04/19/2019 Findings: No acute infiltrates, effusions, or congestion. Groundglass opacity reported on prior CT scan is not definitely evident on plain radiograph. There is a left chest pacemaker. The heart is enlarged. Impression: Cardiomegaly. Pacemaker. No acute process
--- NOTE | 2019-04-22 11:15 | Infectious Diseases Prog Note ---
Assessment/Plan Assessment/Plan Assessment: Acute hypoxic respiratory failure s/p bipap, now at RA COPD exacerbation CHF exacerbation PNA -04/21 CTA chest:Somewhat limited exam, due to motion artifact. No definite evidence of pulmonary embolus or other acute thoracic vascular pathology. Borderline cardiomegaly. Diffuse bilateral pulmonary parenchymal groundglass opacity. Interspersed small bullae digestive this is due to COPD changes, but could also indicate a component of pulmonary edema. Considerable consolidation in the right lower lobe, likely pneumonia. Less extensive consolidation and atelectasis is seen at the left lung base. Pacemaker, degenerative spondylosis incidentally noted -04/19 CXR: Mild pulmonary vascular congestion -04/16 CXR: No acute disease -04/13 CXR: Suspected mild pulmonary vascular congestion. Correlate clinically -04/08 CXR: Mild pulmonary vascular congestion suspected Afebrile Leukocytosis,(s/p high dose steroids), SP KAYLAN, improving Hyperglycemia COPD CAD CHF prostate cancer s/p PPM former smoker Plan: -Cont empiric Zosyn #2 for PNA -04/15 SP Levaquin #7 -04/08 SP Ceftriaxone x1, Azithromycin x1 -Monitor CBC/CMP, temperatures -aspiration precautions -f/u sp cx Thank you for this consultation. Will continue to follow along with you. Discussed with RN Subjective Allergies: Coded Allergies: No Known Allergies (Unverified , 10/24/16) Subjective afebrile leukocytosis resolved at 4l NC Objective Vital Signs Last 24 Hour Vital Signs Date Time Temp Pulse Resp B/P (MAP) Pulse Ox O2 Delivery O2 Flow Rate FiO2 04/22/19 08:57 108 126/77 04/22/19 08:00 98.2 108 22 126/77 (93) 91 04/22/19 03:58 98.0 70 22 126/75 (92) 91 04/21/19 23:34 98.2 73 24 131/80 (97) 90 04/21/19 20:10 Nasal Cannula 4.0 04/21/19 20:05 94 Nasal Cannula 2.0 28 04/21/19 20:04 90 20 96 Room Air 21 95 24 90 04/21/19 20:00 97.9 75 21 124/76 (92) 90 04/21/19 16:00 97.4 72 22 111/72 (85) 91 04/21/19 15:10 86 21 98 Nasal Cannula 2.0 28 82 19 95 04/21/19 12:00 97.6 69 22 119/69 (86) 93 04/21/19 11:35 75 20 97 Nasal Cannula 2.0 28 70 18 95 Height (Feet): 6 Height (Inches): 0.00 Weight (Pounds): 191 Objective General Appearance: no distress HEENT: normocephalic, atraumatic Neck: supple Respiratory/Chest: chest wall non-tender, rhonchi - left, rhonchi - right Cardiovascular/Chest: no murmurs Extremities: normal range of motion Laboratory Tests Test 04/22/19 04:28 White Blood Count 10.5 K/UL (4.8-10.8) Red Blood Count 4.62 M/UL (4.70-6.10) L Hemoglobin 13.5 G/DL (14.2-18.0) L Hematocrit 41.4 % (42.0-52.0) L Mean Corpuscular Volume 90 FL (80-99) Mean Corpuscular Hemoglobin 29.1 PG (27.0-31.0) Mean Corpuscular Hemoglobin Concent 32.5 G/DL (32.0-36.0) Red Cell Distribution Width 14.4 % (11.6-14.8) Platelet Count 184 K/UL (150-450) Mean Platelet Volume 7.2 FL (6.5-10.1) Neutrophils (%) (Auto) 66.4 % (45.0-75.0) Lymphocytes (%) (Auto) 23.8 % (20.0-45.0) Monocytes (%) (Auto) 5.6 % (1.0-10.0) Eosinophils (%) (Auto) 3.6 % (0.0-3.0) H Basophils (%) (Auto) 0.6 % (0.0-2.0) Sodium Level 137 MMOL/L (136-145) Potassium Level 4.8 MMOL/L (3.5-5.1) Chloride Level 102 MMOL/L (98-107) Carbon Dioxide Level 32 MMOL/L (21-32) Anion Gap 3 mmol/L (5-15) L Blood Urea Nitrogen 26 mg/dL (7-18) H Creatinine 1.1 MG/DL (0.55-1.30) Estimat Glomerular Filtration Rate > 60 mL/min (>60) Glucose Level 168 MG/DL (74-106) H Calcium Level 8.7 MG/DL (8.5-10.1) Total Bilirubin 0.2 MG/DL (0.2-1.0) Aspartate Amino Transf (AST/SGOT) 27 U/L (15-37) Alanine Aminotransferase (ALT/SGPT) 50 U/L (12-78) Alkaline Phosphatase 72 U/L (46-116) Pro-B-Type Natriuretic Peptide 207 pg/mL (0-125) H Total Protein 6.4 G/DL (6.4-8.2) Albumin 2.9 G/DL (3.4-5.0) L Globulin 3.5 g/dL Albumin/Globulin Ratio 0.8 (1.0-2.7) L Current Medications Medications (Trade) Dose Ordered Sig/Dejon Route PRN Reason Start Time Stop Time Status Last Admin Dose Admin Acetaminophen (Tylenol) 650 mg Q4H PRN ORAL fever 04/21/19 14:18 05/21/19 14:17 Acetaminophen/ Hydrocodone Bitart ([place] 5/325) 1 tab Q6H PRN ORAL Severe Pain (Pain Scale 7-10) 04/21/19 14:19 04/28/19 14:18 04/22/19 05:34 Apixaban (Eliquis) 5 mg BID ORAL 04/21/19 18:00 05/09/19 08:59 04/22/19 08:58 Carvedilol (Coreg) 6.25 mg EVERY 12 HOURS ORAL 04/21/19 21:00 05/09/19 08:59 04/22/19 08:57 Clonidine HCl (Catapres Tab) 0.1 mg Q4H PRN ORAL sbp more than 160 04/21/19 14:18 05/21/19 14:17 Clotrimazole (Lotrimin) 1 applic THREE TIMES A DAY TOPIC 04/21/19 18:00 05/20/19 12:59 04/22/19 08:57 Dextrose (Dextrose 50%) 25 ml Q30M PRN IV Hypoglycemia 04/21/19 14:30 05/09/19 07:29 Dextrose (Dextrose 50%) 50 ml Q30M PRN IV Hypoglycemia 04/21/19 14:30 05/09/19 07:29 Insulin Aspart (NovoLOG) BEFORE MEALS AND HS SUBQ 04/21/19 16:30 05/09/19 13:29 04/22/19 05:57 Insulin Aspart (NovoLOG) 10 units NOVOTIAC SUBQ 04/21/19 16:50 05/10/19 07:29 04/22/19 06:45 Insulin Detemir (Levemir) 16 units BEDTIME SUBQ 04/21/19 21:00 05/09/19 20:59 Levothyroxine Sodium (Synthroid) 150 mcg ACBREAKFAST ORAL 04/22/19 06:30 05/09/19 06:29 Nitroglycerin (Ntg) 0.4 mg Q5M X 3 DOSES PRN SL Prn Chest Pain 04/21/19 14:15 05/08/19 21:29 Ondansetron HCl (Zofran) 4 mg Q6H PRN IVP Nausea & Vomiting 04/21/19 14:19 05/21/19 14:18 Piperacillin Sod/ Tazobactam Sod 3.375 gm/Sodium Chloride 110 ml @ 27.5 mls/hr Q8H IVPB 04/21/19 18:00 04/28/19 17:59 04/22/19 09:22 Promethazine HCl/ Codeine (Phenergan with Codeine) 5 ml Q6H PRN ORAL cough 04/21/19 14:19 05/21/19 14:18 Tamsulosin HCl (Flomax) 0.4 mg BEDTIME ORAL 04/21/19 21:00 05/09/19 20:59 An Villa M.D. Apr 22, 2019 11:15
[2019-04-22 12:00] VITALS: BP 121/67
--- NOTE | 2019-04-22 14:07 | Pulmonology Progress Note ---
Assessment/Plan Problems: (1) Respiratory failure with hypoxia (2) COPD exacerbation (3) Pneumonia (4) Pacemaker (5) Diabetes mellitus (6) Prostate cancer Assessment/Plan repeat CXR didnt show any acute illness still short of breath, will increase the frequency of the respiratory treatment. coughing phlegm off steroids and antibiotics sliding scale diabetic diet there might be a psychological component. will call psych consult. Subjective ROS Limited/Unobtainable: No - c/o shortness of breath Allergies: Coded Allergies: No Known Allergies (Unverified , 10/24/16) Objective Last 24 Hour Vital Signs Date Time Temp Pulse Resp B/P (MAP) Pulse Ox O2 Delivery O2 Flow Rate FiO2 04/22/19 12:00 97.9 103 21 121/67 (85) 93 04/22/19 09:00 Nasal Cannula 4.0 04/22/19 08:57 108 126/77 04/22/19 08:00 98.2 108 22 126/77 (93) 91 04/22/19 03:58 98.0 70 22 126/75 (92) 91 04/21/19 23:34 98.2 73 24 131/80 (97) 90 04/21/19 20:10 Nasal Cannula 4.0 04/21/19 20:05 94 Nasal Cannula 2.0 28 04/21/19 20:04 90 20 96 Room Air 21 95 24 90 04/21/19 20:00 97.9 75 21 124/76 (92) 90 04/21/19 16:00 97.4 72 22 111/72 (85) 91 04/21/19 15:10 86 21 98 Nasal Cannula 2.0 28 82 19 95 Intake and Output 04/21/19 04/22/19 19:00 07:00 Intake Total 600 ml 480 ml Output Total 1100 ml 1250 ml Balance -500 ml -770 ml Intake Oral 600 ml 480 ml Output Urine Total 1100 ml 1250 ml # Voids 2 2 # Bowel Movements 1 2 General Appearance: WD/WN HEENT: normocephalic, atraumatic Respiratory/Chest: chest wall non-tender, accessory muscle use, crackles/rales Cardiovascular: normal peripheral pulses, normal rate Abdomen: normal bowel sounds, no organomegaly Extremities: no cyanosis Skin: no rash 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 Laboratory Tests 04/22/19 04:28: White Blood Count 10.5, Red Blood Count 4.62L, Hemoglobin 13.5L, Hematocrit 41.4L, Mean Corpuscular Volume 90, Mean Corpuscular Hemoglobin 29.1, Mean Corpuscular Hemoglobin Concent 32.5, Red Cell Distribution Width 14.4, Platelet Count 184, Mean Platelet Volume 7.2, Neutrophils (%) (Auto) 66.4, Lymphocytes (% ) (Auto) 23.8, Monocytes (%) (Auto) 5.6, Eosinophils (%) (Auto) 3.6H, Basophils (%) (Auto) 0.6, Sodium Level 137, Potassium Level 4.8, Chloride Level 102, Carbon Dioxide Level 32, Anion Gap 3L, Blood Urea Nitrogen 26H, Creatinine 1.1, Estimat Glomerular Filtration Rate > 60, Glucose Level 168H, Calcium Level 8.7, Total Bilirubin 0.2, Aspartate Amino Transf (AST/SGOT) 27, Alanine Aminotransferase (ALT/SGPT) 50, Alkaline Phosphatase 72, Pro-B-Type Natriuretic Peptide 207H, Total Protein 6.4, Albumin 2.9L, Globulin 3.5, Albumin/Globulin Ratio 0.8L Current Medications Medications (Trade) Dose Ordered Sig/Dejon Route PRN Reason Start Time Stop Time Status Last Admin Dose Admin Acetaminophen (Tylenol) 650 mg Q4H PRN ORAL fever 04/21/19 14:18 05/21/19 14:17 Acetaminophen/ Hydrocodone Bitart ([place] 5/325) 1 tab Q6H PRN ORAL Severe Pain (Pain Scale 7-10) 04/21/19 14:19 04/28/19 14:18 04/22/19 05:34 Apixaban (Eliquis) 5 mg BID ORAL 04/21/19 18:00 05/09/19 08:59 04/22/19 08:58 Carvedilol (Coreg) 6.25 mg EVERY 12 HOURS ORAL 04/21/19 21:00 05/09/19 08:59 04/22/19 08:57 Clonidine HCl (Catapres Tab) 0.1 mg Q4H PRN ORAL sbp more than 160 04/21/19 14:18 05/21/19 14:17 Clotrimazole (Lotrimin) 1 applic THREE TIMES A DAY TOPIC 04/21/19 18:00 05/20/19 12:59 04/22/19 12:22 Dextrose (Dextrose 50%) 25 ml Q30M PRN IV Hypoglycemia 04/21/19 14:30 05/09/19 07:29 Dextrose (Dextrose 50%) 50 ml Q30M PRN IV Hypoglycemia 04/21/19 14:30 05/09/19 07:29 Insulin Aspart (NovoLOG) BEFORE MEALS AND HS SUBQ 04/21/19 16:30 05/09/19 13:29 04/22/19 12:23 Insulin Aspart (NovoLOG) 10 units NOVOTIAC SUBQ 04/21/19 16:50 05/10/19 07:29 04/22/19 12:23 Insulin Detemir (Levemir) 16 units BEDTIME SUBQ 04/21/19 21:00 05/09/19 20:59 Levothyroxine Sodium (Synthroid) 150 mcg ACBREAKFAST ORAL 04/22/19 06:30 05/09/19 06:29 Nitroglycerin (Ntg) 0.4 mg Q5M X 3 DOSES PRN SL Prn Chest Pain 04/21/19 14:15 05/08/19 21:29 Ondansetron HCl (Zofran) 4 mg Q6H PRN IVP Nausea & Vomiting 04/21/19 14:19 05/21/19 14:18 Piperacillin Sod/ Tazobactam Sod 3.375 gm/Sodium Chloride 110 ml @ 27.5 mls/hr Q8H IVPB 04/21/19 18:00 04/28/19 17:59 04/22/19 09:22 Promethazine HCl/ Codeine (Phenergan with Codeine) 5 ml Q6H PRN ORAL cough 04/21/19 14:19 05/21/19 14:18 Tamsulosin HCl (Flomax) 0.4 mg BEDTIME ORAL 04/21/19 21:00 05/09/19 20:59 Goldie Obrien MD Apr 22, 2019 14:07
[2019-04-22] MEDS ORDERED: Nitroglycerin Subl 0.4mg tab SL PRN (15:30)
[2019-04-22] MEDS ORDERED: Promethazine/Codeine 5ml UD ORAL PRN (15:35)
[2019-04-22 16:00] VITALS: BP 106/66
--- NOTE | 2019-04-22 19:24 | Internal Med Progress Note ---
Subjective Date of Service: Apr 22, 2019 Physician Name LugoIdris Attending Physician Jewel Giraldo MD Current Medications Medications (Trade) Dose Ordered Sig/Dejon Route PRN Reason Start Time Stop Time Status Last Admin Dose Admin Acetaminophen (Tylenol) 650 mg Q4H PRN ORAL fever 04/22/19 15:30 05/22/19 15:29 Acetaminophen/ Hydrocodone Bitart ([place] 5/325) 1 tab Q6H PRN ORAL Severe Pain (Pain Scale 7-10) 04/22/19 15:35 04/29/19 15:34 04/22/19 18:20 Apixaban (Eliquis) 5 mg BID ORAL 04/22/19 18:00 05/09/19 08:59 04/22/19 18:05 Carvedilol (Coreg) 6.25 mg EVERY 12 HOURS ORAL 04/22/19 21:00 05/09/19 08:59 Clonidine HCl (Catapres Tab) 0.1 mg Q4H PRN ORAL sbp more than 160 04/22/19 15:30 05/22/19 15:29 Clotrimazole (Lotrimin) 1 applic THREE TIMES A DAY TOPIC 04/22/19 18:00 05/20/19 12:59 Dextrose (Dextrose 50%) 25 ml Q30M PRN IV Hypoglycemia 04/22/19 15:30 05/09/19 07:29 Dextrose (Dextrose 50%) 50 ml Q30M PRN IV Hypoglycemia 04/22/19 15:30 05/09/19 07:29 Insulin Aspart (NovoLOG) BEFORE MEALS AND HS SUBQ 04/22/19 16:30 05/09/19 13:29 Insulin Aspart (NovoLOG) 10 units NOVOTIAC SUBQ 04/22/19 16:50 05/10/19 07:29 Insulin Detemir (Levemir) 16 units BEDTIME SUBQ 04/22/19 21:00 05/09/19 20:59 Levothyroxine Sodium (Synthroid) 150 mcg ACBREAKFAST ORAL 04/23/19 06:30 05/09/19 06:29 Nitroglycerin (Ntg) 0.4 mg Q5M X 3 DOSES PRN SL Prn Chest Pain 04/22/19 15:30 05/08/19 21:29 Ondansetron HCl (Zofran) 4 mg Q6H PRN IVP Nausea & Vomiting 04/22/19 15:35 05/22/19 15:34 Piperacillin Sod/ Tazobactam Sod 3.375 gm/Sodium Chloride 110 ml @ 27.5 mls/hr Q8H IVPB 04/22/19 18:00 04/28/19 17:59 04/22/19 18:04 Promethazine HCl/ Codeine (Phenergan with Codeine) 5 ml Q6H PRN ORAL cough 04/22/19 15:35 05/22/19 15:34 Tamsulosin HCl (Flomax) 0.4 mg BEDTIME ORAL 04/22/19 21:00 05/09/19 20:59 Allergies: Coded Allergies: No Known Allergies (Unverified , 10/24/16) ROS Limited/Unobtainable: Yes Subjective 73 YO M admitted with COPD exacerbation. Now respiratory failure. Cover for Int Med-DR Giraldo. Transferred to [facility] for worsening respiratory distress Objective Last Vital Signs Date Time Temp Pulse Resp B/P (MAP) Pulse Ox O2 Delivery O2 Flow Rate FiO2 04/22/19 18:50 97.6 04/22/19 18:46 95 Nasal Cannula 3.0 32 04/22/19 16:00 70 21 106/66 (79) Laboratory Tests Test 04/22/19 04:28 04/22/19 13:57 White Blood Count 10.5 K/UL (4.8-10.8) Red Blood Count 4.62 M/UL (4.70-6.10) L Hemoglobin 13.5 G/DL (14.2-18.0) L Hematocrit 41.4 % (42.0-52.0) L Mean Corpuscular Volume 90 FL (80-99) Mean Corpuscular Hemoglobin 29.1 PG (27.0-31.0) Mean Corpuscular Hemoglobin Concent 32.5 G/DL (32.0-36.0) Red Cell Distribution Width 14.4 % (11.6-14.8) Platelet Count 184 K/UL (150-450) Mean Platelet Volume 7.2 FL (6.5-10.1) Neutrophils (%) (Auto) 66.4 % (45.0-75.0) Lymphocytes (%) (Auto) 23.8 % (20.0-45.0) Monocytes (%) (Auto) 5.6 % (1.0-10.0) Eosinophils (%) (Auto) 3.6 % (0.0-3.0) H Basophils (%) (Auto) 0.6 % (0.0-2.0) Sodium Level 137 MMOL/L (136-145) Potassium Level 4.8 MMOL/L (3.5-5.1) Chloride Level 102 MMOL/L (98-107) Carbon Dioxide Level 32 MMOL/L (21-32) Anion Gap 3 mmol/L (5-15) L Blood Urea Nitrogen 26 mg/dL (7-18) H Creatinine 1.1 MG/DL (0.55-1.30) Estimat Glomerular Filtration Rate > 60 mL/min (>60) Glucose Level 168 MG/DL (74-106) H Calcium Level 8.7 MG/DL (8.5-10.1) Total Bilirubin 0.2 MG/DL (0.2-1.0) Aspartate Amino Transf (AST/SGOT) 27 U/L (15-37) Alanine Aminotransferase (ALT/SGPT) 50 U/L (12-78) Alkaline Phosphatase 72 U/L (46-116) Pro-B-Type Natriuretic Peptide 207 pg/mL (0-125) H Total Protein 6.4 G/DL (6.4-8.2) Albumin 2.9 G/DL (3.4-5.0) L Globulin 3.5 g/dL Albumin/Globulin Ratio 0.8 (1.0-2.7) L Arterial Blood pH 7.306 (7.350-7.450) Arterial Blood Partial Pressure CO2 57.5 mmHg (35.0-45.0) *H Arterial Blood Partial Pressure O2 61.1 mmHg (75.0-100.0) L Arterial Blood HCO3 28.0 mmol/L (22.0-26.0) H Arterial Blood Oxygen Saturation 90.3 % (95-100) L Arterial Blood Base Excess 0.6 (-2-2) Dewayne Test Positive Intake and Output 04/21/19 04/22/19 19:00 07:00 Intake Total 600 ml 480 ml Output Total 1100 ml 1250 ml Balance -500 ml -770 ml Intake Oral 600 ml 480 ml Output Urine Total 1100 ml 1250 ml # Voids 2 2 # Bowel Movements 1 2 Objective PHYSICAL EXAMINATION: GENERAL: The patient is awake, responsive, no acute distress. HEAD AND NECK: Pupils are equal and reactive to light. Extraocular muscles intact. Neck was supple. No JVD. LUNGS: BIPAP;The patient has expiratory wheezes noted. Tachypneic. No rhonchi was noted. HEART: S1, S2. Irregular. No murmur. The patient has a pacemaker in the left-sided chest wall. ABDOMEN: Soft, nondistended, nontender. Mildly obese. EXTREMITIES: No cyanosis, clubbing, edema. NEUROLOGIC: Cranial nerves II through XII grossly normal. Motor is 5/5 in all extremities. Gait is intact. GENITOURINARY: It was noted the patient has a [place] catheter. RECTAL: Refused and deferred. PSYCHIATRIC: Mood and affect is intact. Assessment/Plan Assessment/Plan ASSESSMENT: 1. Acute hypoxemic respiratory failure, most likely secondary to acute COPD exacerbation. 2. Acute COPD exacerbation. 3. Pneumonia. 4. Sick sinus syndrome status post pacemaker. 5. Diabetes type 2. 6. Prostate cancer. 7. Hyperkalemia. 8. Insulin induced hyperglycemia. 9. Prostate enlargement. 10. Leukocytosis 11. RBBB PLAN: 1. [facility] 2. D/C Solu-Medrol IV Per Pulmonary consult=Dr. Obrien. 3. Endocrinology=Dr To. Monitor blood glucose level closely. 4. antibiotic=Zosyn. ID=Dr Villa 5. Code status is Full Code. DVT prophylaxis, he is on Eliquis. Idris Lugo MD Apr 22, 2019 19:23
[2019-04-22 20:00] VITALS: BP 124/87
[2019-04-22] MEDS: Tamsulosin 0.4mg cap ORAL SCH (20:41)
[2019-04-23] VITALS: BP 113/76
[2019-04-23] MEDS: Piperacillin/Tazobactam 3.375 GM in NS 110 ML IVPB SCH ×3 (02:37→17:43)
[2019-04-23 04:00] VITALS: BP 114/68
[2019-04-23 05:30] LABS: BASOPHILS % (AUTO) 0.9 % (0.0-2.0); EOSINOPHILS % (AUTO) 3.9 % (0.0-3.0); HEMATOCRIT 40.5 % (42.0-52.0); HEMOGLOBIN 13.2 G/DL (14.2-18.0); LYMPHOCYTES % (AUTO) 20.5 % (20.0-45.0); MEAN CORPUSCULAR VOLUME 91 FL (80-99); MONOCYTES % (AUTO) 8.8 % (1.0-10.0); NEUTROPHILS % (AUTO) 65.8 % (45.0-75.0); PLATELET COUNT 160 K/UL (150-450); RED BLOOD COUNT 4.48 M/UL (4.70-6.10); RED CELL DISTRIBUTION WIDTH 14.3 % (11.6-14.8); WHITE BLOOD COUNT 10.3 K/UL (4.8-10.8)
[2019-04-23] MEDS: NovoLOG Insulin Flexpen SUBQ SCH ×7 (06:01→21:34)
[2019-04-23] MEDS: HYDROcodone/Acetamin 5/325 tab ORAL PRN ×2 (06:07→17:54)
[2019-04-23 06:21] LABS: ANION GAP 6 mmol/L (5-15); BLOOD UREA NITROGEN 29 mg/dL (7-18); CALCIUM 9.2 MG/DL (8.5-10.1); CARBON DIOXIDE 30 MMOL/L (21-32); CHLORIDE 102 MMOL/L (98-107); CREATININE 1.3 MG/DL (0.55-1.30); POTASSIUM 4.9 MMOL/L (3.5-5.1); SODIUM 138 MMOL/L (136-145)
[2019-04-23] MEDS ORDERED: Albuterol/Ipratropium 3ml neb HHN PRN (09:30)
--- NOTE | 2019-04-23 09:49 | Pulmonology Progress Note ---
Assessment/Plan Problems: (1) Respiratory failure with hypoxia (2) COPD exacerbation (3) Pneumonia (4) Pacemaker (5) Diabetes mellitus (6) Prostate cancer Assessment/Plan repeat CXR from yesterday didnt show any acute illness still short of breath, will increase the frequency of the respiratory treatment. coughing phlegm, sputum induction to get good samples off steroids and antibiotics sliding scale diabetic diet there might be a psychological component. will call psych consult. Subjective ROS Limited/Unobtainable: No Interval Events: still episodes of dyspnea and agitation Constitutional: Reports: no symptoms HEENT: Repors: no symptoms Respiratory: Reports: no symptoms Allergies: Coded Allergies: No Known Allergies (Unverified , 10/24/16) Objective Last 24 Hour Vital Signs Date Time Temp Pulse Resp B/P (MAP) Pulse Ox O2 Delivery O2 Flow Rate FiO2 04/23/19 07:28 120/85 04/23/19 04:00 67 04/23/19 04:00 97.7 69 20 114/68 (83) 95 04/23/19 04:00 Nasal Cannula 5.0 04/23/19 00:00 69 04/23/19 00:00 Nasal Cannula 5.0 04/23/19 00:00 97.5 70 24 113/76 (88) 95 04/22/19 20:41 72 124/87 04/22/19 20:00 97.7 72 24 124/87 (99) 94 04/22/19 20:00 71 04/22/19 20:00 Nasal Cannula 5.0 04/22/19 18:50 97.6 04/22/19 18:46 95 Nasal Cannula 3.0 32 04/22/19 16:00 97.6 70 21 106/66 (79) 94 04/22/19 16:00 74 04/22/19 15:10 72 04/22/19 14:30 111 19 95 30 04/22/19 14:30 111 21 95 Bi-Pap 30 04/22/19 14:30 96 Bi-Pap 30 04/22/19 12:00 97.9 103 21 121/67 (85) 93 Intake and Output 04/22/19 04/23/19 19:00 07:00 Intake Total 350.0 ml 940.0 ml Output Total 1300 ml 1000 ml Balance -950.0 ml -60.0 ml Intake Oral 240 ml 720 ml IV Total 110.0 ml 220.0 ml Output Urine Total 1300 ml 1000 ml # Bowel Movements 1 1 General Appearance: no acute distress HEENT: normocephalic Respiratory/Chest: crackles/rales, expiratory wheezing Cardiovascular: normal peripheral pulses, normal rate Abdomen: normal bowel sounds, no organomegaly Microbiology Date/Time Source Procedure Growth Status 04/21/19 20:45 Sputum Induced Gram Stain - Final Resulted 04/21/19 20:45 Sputum Induced Sputum Culture Pending Resulted Laboratory Tests 04/22/19 13:57: Arterial Blood pH 7.306L, Arterial Blood Partial Pressure CO2 57.5*H, Arterial Blood Partial Pressure O2 61.1L, Arterial Blood HCO3 28.0H, Arterial Blood Oxygen Saturation 90.3L, Arterial Blood Base Excess 0.6, Dewayne Test Positive 04/23/19 02:50: White Blood Count 10.3, Red Blood Count 4.48L, Hemoglobin 13.2L, Hematocrit 40.5L, Mean Corpuscular Volume 91, Mean Corpuscular Hemoglobin 29.5, Mean Corpuscular Hemoglobin Concent 32.5, Red Cell Distribution Width 14.3, Platelet Count 160, Mean Platelet Volume 7.1, Neutrophils (%) (Auto) 65.8, Lymphocytes (% ) (Auto) 20.5, Monocytes (%) (Auto) 8.8, Eosinophils (%) (Auto) 3.9H, Basophils (%) (Auto) 0.9 04/23/19 04:00: Sodium Level 138, Potassium Level 4.9, Chloride Level 102, Carbon Dioxide Level 30, Anion Gap 6, Blood Urea Nitrogen 29H, Creatinine 1.3, Estimat Glomerular Filtration Rate > 60, Glucose Level 170H, Calcium Level 9.2 Current Medications Medications (Trade) Dose Ordered Sig/Dejon Route PRN Reason Start Time Stop Time Status Last Admin Dose Admin Acetaminophen (Tylenol) 650 mg Q4H PRN ORAL fever 04/22/19 15:30 05/22/19 15:29 Acetaminophen/ Hydrocodone Bitart ([place] 5/325) 1 tab Q6H PRN ORAL Severe Pain (Pain Scale 7-10) 04/22/19 15:35 04/29/19 15:34 04/23/19 06:07 Albuterol/ Ipratropium (Albuterol/ Ipratropium) 3 ml Q4H PRN HHN Shortness of Breath 04/23/19 09:30 04/28/19 09:29 Albuterol/ Ipratropium (Albuterol/ Ipratropium) 3 ml Q4HRT HHN 04/23/19 11:00 04/28/19 10:59 Apixaban (Eliquis) 5 mg BID ORAL 04/22/19 18:00 05/09/19 08:59 04/22/19 18:05 Carvedilol (Coreg) 6.25 mg EVERY 12 HOURS ORAL 04/22/19 21:00 05/09/19 08:59 04/22/19 20:41 Clonidine HCl (Catapres Tab) 0.1 mg Q4H PRN ORAL sbp more than 160 04/22/19 15:30 05/22/19 15:29 Clotrimazole (Lotrimin) 1 applic THREE TIMES A DAY TOPIC 04/22/19 18:00 05/20/19 12:59 Dextrose (Dextrose 50%) 25 ml Q30M PRN IV Hypoglycemia 04/22/19 15:30 05/09/19 07:29 Dextrose (Dextrose 50%) 50 ml Q30M PRN IV Hypoglycemia 04/22/19 15:30 05/09/19 07:29 Insulin Aspart (NovoLOG) BEFORE MEALS AND HS SUBQ 04/22/19 16:30 05/09/19 13:29 04/23/19 06:01 Insulin Aspart (NovoLOG) 10 units NOVOTIAC SUBQ 04/22/19 16:50 05/10/19 07:29 04/23/19 06:01 Insulin Detemir (Levemir) 16 units BEDTIME SUBQ 04/22/19 21:00 05/09/19 20:59 04/22/19 20:42 Levothyroxine Sodium (Synthroid) 150 mcg ACBREAKFAST ORAL 04/23/19 06:30 05/09/19 06:29 04/23/19 06:00 Nitroglycerin (Ntg) 0.4 mg Q5M X 3 DOSES PRN SL Prn Chest Pain 04/22/19 15:30 05/08/19 21:29 04/23/19 07:28 Ondansetron HCl (Zofran) 4 mg Q6H PRN IVP Nausea & Vomiting 04/22/19 15:35 05/22/19 15:34 Piperacillin Sod/ Tazobactam Sod 3.375 gm/Sodium Chloride 110 ml @ 27.5 mls/hr Q8H IVPB 04/22/19 18:00 04/28/19 17:59 04/23/19 02:37 Promethazine HCl/ Codeine (Phenergan with Codeine) 5 ml Q6H PRN ORAL cough 04/22/19 15:35 05/22/19 15:34 Tamsulosin HCl (Flomax) 0.4 mg BEDTIME ORAL 04/22/19 21:00 05/09/19 20:59 04/22/19 20:41 Goldie Obrien MD Apr 23, 2019 09:49
[2019-04-23] MEDS: Carvedilol 6.25mg Tab ORAL SCH ×2 (09:53→21:32)
[2019-04-23] MEDS: Eliquis 5mg tablet ORAL SCH ×2 (09:53→17:43)
[2019-04-23] MEDS: Albuterol/Ipratropium 3ml neb HHN SCH ×4 (10:58→23:26)
--- NOTE | 2019-04-23 13:39 | Infectious Diseases Prog Note ---
Assessment/Plan Assessment/Plan Assessment: Acute hypoxic respiratory failure s/p bipap, now at [place] COPD exacerbation CHF exacerbation PNA -04/21 CTA chest:Somewhat limited exam, due to motion artifact. No definite evidence of pulmonary embolus or other acute thoracic vascular pathology. Borderline cardiomegaly. Diffuse bilateral pulmonary parenchymal groundglass opacity. Interspersed small bullae digestive this is due to COPD changes, but could also indicate a component of pulmonary edema. Considerable consolidation in the right lower lobe, likely pneumonia. Less extensive consolidation and atelectasis is seen at the left lung base. Pacemaker, degenerative spondylosis incidentally noted -04/19 CXR: Mild pulmonary vascular congestion -04/16 CXR: No acute disease -04/13 CXR: Suspected mild pulmonary vascular congestion. Correlate clinically -04/08 CXR: Mild pulmonary vascular congestion suspected Afebrile Leukocytosis,(s/p high dose steroids), SP KAYLAN, improving Hyperglycemia COPD CAD CHF prostate cancer s/p PPM former smoker Plan: -Cont empiric Zosyn #3 for PNA -04/15 SP Levaquin #7 -04/08 SP Ceftriaxone x1, Azithromycin x1 -Monitor CBC/CMP, temperatures -aspiration precautions -f/u sp cx Thank you for this consultation. Will continue to follow along with you. Discussed with RN Subjective Allergies: Coded Allergies: No Known Allergies (Unverified , 10/24/16) Subjective afebrile no leukocytosis at 5l NC transferred to [facility] Objective Vital Signs Last 24 Hour Vital Signs Date Time Temp Pulse Resp B/P (MAP) Pulse Ox O2 Delivery O2 Flow Rate FiO2 04/23/19 12:00 Nasal Cannula 5.0 04/23/19 11:08 69 19 97 Venturi Mask 8.0 40 69 21 69 04/23/19 09:53 67 137/67 04/23/19 08:50 87 Nasal Cannula 3.0 32 04/23/19 08:00 Nasal Cannula 5.0 04/23/19 08:00 72 04/23/19 07:28 120/85 04/23/19 04:00 67 04/23/19 04:00 97.7 69 20 114/68 (83) 95 04/23/19 04:00 Nasal Cannula 5.0 04/23/19 00:00 69 04/23/19 00:00 Nasal Cannula 5.0 04/23/19 00:00 97.5 70 24 113/76 (88) 95 04/22/19 20:41 72 124/87 04/22/19 20:00 97.7 72 24 124/87 (99) 94 04/22/19 20:00 71 04/22/19 20:00 Nasal Cannula 5.0 04/22/19 18:50 97.6 04/22/19 18:46 95 Nasal Cannula 3.0 32 04/22/19 16:00 97.6 70 21 106/66 (79) 94 04/22/19 16:00 74 04/22/19 15:10 72 04/22/19 14:30 111 19 95 30 04/22/19 14:30 111 21 95 Bi-Pap 30 04/22/19 14:30 96 Bi-Pap 30 Height (Feet): 6 Height (Inches): 0.00 Weight (Pounds): 191 Objective General Appearance: no distress HEENT: normocephalic, atraumatic Neck: supple Respiratory/Chest: chest wall non-tender, rhonchi - left, rhonchi - right Cardiovascular/Chest: no murmurs Extremities: normal range of motion Microbiology Date/Time Source Procedure Growth Status 04/21/19 20:45 Sputum Induced Gram Stain - Final Resulted 04/21/19 20:45 Sputum Induced Sputum Culture Pending Resulted Laboratory Tests Test 04/22/19 13:57 04/23/19 02:50 04/23/19 04:00 Arterial Blood pH 7.306 (7.350-7.450) Arterial Blood Partial Pressure CO2 57.5 mmHg (35.0-45.0) *H Arterial Blood Partial Pressure O2 61.1 mmHg (75.0-100.0) L Arterial Blood HCO3 28.0 mmol/L (22.0-26.0) H Arterial Blood Oxygen Saturation 90.3 % (95-100) L Arterial Blood Base Excess 0.6 (-2-2) Dewayne Test Positive White Blood Count 10.3 K/UL (4.8-10.8) Red Blood Count 4.48 M/UL (4.70-6.10) L Hemoglobin 13.2 G/DL (14.2-18.0) L Hematocrit 40.5 % (42.0-52.0) L Mean Corpuscular Volume 91 FL (80-99) Mean Corpuscular Hemoglobin 29.5 PG (27.0-31.0) Mean Corpuscular Hemoglobin Concent 32.5 G/DL (32.0-36.0) Red Cell Distribution Width 14.3 % (11.6-14.8) Platelet Count 160 K/UL (150-450) Mean Platelet Volume 7.1 FL (6.5-10.1) Neutrophils (%) (Auto) 65.8 % (45.0-75.0) Lymphocytes (%) (Auto) 20.5 % (20.0-45.0) Monocytes (%) (Auto) 8.8 % (1.0-10.0) Eosinophils (%) (Auto) 3.9 % (0.0-3.0) H Basophils (%) (Auto) 0.9 % (0.0-2.0) Sodium Level 138 MMOL/L (136-145) Potassium Level 4.9 MMOL/L (3.5-5.1) Chloride Level 102 MMOL/L (98-107) Carbon Dioxide Level 30 MMOL/L (21-32) Anion Gap 6 mmol/L (5-15) Blood Urea Nitrogen 29 mg/dL (7-18) H Creatinine 1.3 MG/DL (0.55-1.30) Estimat Glomerular Filtration Rate > 60 mL/min (>60) Glucose Level 170 MG/DL (74-106) H Calcium Level 9.2 MG/DL (8.5-10.1) Current Medications Medications (Trade) Dose Ordered Sig/Dejon Route PRN Reason Start Time Stop Time Status Last Admin Dose Admin Acetaminophen (Tylenol) 650 mg Q4H PRN ORAL fever 04/22/19 15:30 05/22/19 15:29 Acetaminophen/ Hydrocodone Bitart ([place] 5/325) 1 tab Q6H PRN ORAL Severe Pain (Pain Scale 7-10) 04/22/19 15:35 04/29/19 15:34 04/23/19 06:07 Albuterol/ Ipratropium (Albuterol/ Ipratropium) 3 ml Q4H PRN HHN Shortness of Breath 04/23/19 09:30 04/28/19 09:29 Albuterol/ Ipratropium (Albuterol/ Ipratropium) 3 ml Q4HRT HHN 04/23/19 11:00 04/28/19 10:59 04/23/19 10:58 Apixaban (Eliquis) 5 mg BID ORAL 04/22/19 18:00 05/09/19 08:59 04/23/19 09:53 Carvedilol (Coreg) 6.25 mg EVERY 12 HOURS ORAL 04/22/19 21:00 05/09/19 08:59 04/23/19 09:53 Clonidine HCl (Catapres Tab) 0.1 mg Q4H PRN ORAL sbp more than 160 04/22/19 15:30 05/22/19 15:29 Clotrimazole (Lotrimin) 1 applic THREE TIMES A DAY TOPIC 04/22/19 18:00 05/20/19 12:59 04/23/19 12:06 Dextrose (Dextrose 50%) 25 ml Q30M PRN IV Hypoglycemia 04/22/19 15:30 05/09/19 07:29 Dextrose (Dextrose 50%) 50 ml Q30M PRN IV Hypoglycemia 04/22/19 15:30 05/09/19 07:29 Insulin Aspart (NovoLOG) BEFORE MEALS AND HS SUBQ 04/22/19 16:30 05/09/19 13:29 04/23/19 06:01 Insulin Aspart (NovoLOG) 10 units NOVOTIAC SUBQ 04/22/19 16:50 05/10/19 07:29 04/23/19 06:01 Insulin Detemir (Levemir) 16 units BEDTIME SUBQ 04/22/19 21:00 05/09/19 20:59 04/22/19 20:42 Levothyroxine Sodium (Synthroid) 150 mcg ACBREAKFAST ORAL 04/23/19 06:30 05/09/19 06:29 04/23/19 06:00 Nitroglycerin (Ntg) 0.4 mg Q5M X 3 DOSES PRN SL Prn Chest Pain 04/22/19 15:30 05/08/19 21:29 04/23/19 07:28 Ondansetron HCl (Zofran) 4 mg Q6H PRN IVP Nausea & Vomiting 04/22/19 15:35 05/22/19 15:34 Piperacillin Sod/ Tazobactam Sod 3.375 gm/Sodium Chloride 110 ml @ 27.5 mls/hr Q8H IVPB 04/22/19 18:00 04/28/19 17:59 04/23/19 09:54 Promethazine HCl/ Codeine (Phenergan with Codeine) 5 ml Q6H PRN ORAL cough 04/22/19 15:35 05/22/19 15:34 Tamsulosin HCl (Flomax) 0.4 mg BEDTIME ORAL 04/22/19 21:00 05/09/19 20:59 04/22/19 20:41 An Villa M.D. Apr 23, 2019 13:39
--- NOTE | 2019-04-23 16:39 | Internal Med Progress Note ---
Subjective Physician Name Jewel Giraldo Attending Physician Jewel Giraldo MD Current Medications Medications (Trade) Dose Ordered Sig/Dejon Route PRN Reason Start Time Stop Time Status Last Admin Dose Admin Acetaminophen (Tylenol) 650 mg Q4H PRN ORAL fever 04/22/19 15:30 05/22/19 15:29 Acetaminophen/ Hydrocodone Bitart ([place] 5/325) 1 tab Q6H PRN ORAL Severe Pain (Pain Scale 7-10) 04/22/19 15:35 04/29/19 15:34 04/23/19 06:07 Albuterol/ Ipratropium (Albuterol/ Ipratropium) 3 ml Q4H PRN HHN Shortness of Breath 04/23/19 09:30 04/28/19 09:29 Albuterol/ Ipratropium (Albuterol/ Ipratropium) 3 ml Q4HRT HHN 04/23/19 11:00 04/28/19 10:59 04/23/19 10:58 Apixaban (Eliquis) 5 mg BID ORAL 04/22/19 18:00 05/09/19 08:59 04/23/19 09:53 Carvedilol (Coreg) 6.25 mg EVERY 12 HOURS ORAL 04/22/19 21:00 05/09/19 08:59 04/23/19 09:53 Clonidine HCl (Catapres Tab) 0.1 mg Q4H PRN ORAL sbp more than 160 04/22/19 15:30 05/22/19 15:29 Clotrimazole (Lotrimin) 1 applic THREE TIMES A DAY TOPIC 04/22/19 18:00 05/20/19 12:59 04/23/19 12:06 Dextrose (Dextrose 50%) 25 ml Q30M PRN IV Hypoglycemia 04/22/19 15:30 05/09/19 07:29 Dextrose (Dextrose 50%) 50 ml Q30M PRN IV Hypoglycemia 04/22/19 15:30 05/09/19 07:29 Insulin Aspart (NovoLOG) BEFORE MEALS AND HS SUBQ 04/22/19 16:30 05/09/19 13:29 04/23/19 06:01 Insulin Aspart (NovoLOG) 10 units NOVOTIAC SUBQ 04/22/19 16:50 05/10/19 07:29 04/23/19 06:01 Insulin Detemir (Levemir) 16 units BEDTIME SUBQ 04/22/19 21:00 05/09/19 20:59 04/22/19 20:42 Levothyroxine Sodium (Synthroid) 150 mcg ACBREAKFAST ORAL 04/23/19 06:30 05/09/19 06:29 04/23/19 06:00 Nitroglycerin (Ntg) 0.4 mg Q5M X 3 DOSES PRN SL Prn Chest Pain 04/22/19 15:30 05/08/19 21:29 04/23/19 07:28 Ondansetron HCl (Zofran) 4 mg Q6H PRN IVP Nausea & Vomiting 04/22/19 15:35 05/22/19 15:34 Piperacillin Sod/ Tazobactam Sod 3.375 gm/Sodium Chloride 110 ml @ 27.5 mls/hr Q8H IVPB 04/22/19 18:00 04/28/19 17:59 04/23/19 09:54 Promethazine HCl/ Codeine (Phenergan with Codeine) 5 ml Q6H PRN ORAL cough 04/22/19 15:35 05/22/19 15:34 Tamsulosin HCl (Flomax) 0.4 mg BEDTIME ORAL 04/22/19 21:00 05/09/19 20:59 04/22/19 20:41 Allergies: Coded Allergies: No Known Allergies (Unverified , 10/24/16) Subjective Awake,alert, responsive, No Cough, refusing medication, C/O Left shoulder pain. , Objective Last Vital Signs Date Time Temp Pulse Resp B/P (MAP) Pulse Ox O2 Delivery O2 Flow Rate FiO2 04/23/19 16:09 Nasal Cannula 5.0 04/23/19 12:00 75 04/23/19 11:08 19 97 40 21 69 04/23/19 09:53 137/67 04/23/19 04:00 97.7 Laboratory Tests Test 04/23/19 02:50 04/23/19 04:00 White Blood Count 10.3 K/UL (4.8-10.8) Red Blood Count 4.48 M/UL (4.70-6.10) L Hemoglobin 13.2 G/DL (14.2-18.0) L Hematocrit 40.5 % (42.0-52.0) L Mean Corpuscular Volume 91 FL (80-99) Mean Corpuscular Hemoglobin 29.5 PG (27.0-31.0) Mean Corpuscular Hemoglobin Concent 32.5 G/DL (32.0-36.0) Red Cell Distribution Width 14.3 % (11.6-14.8) Platelet Count 160 K/UL (150-450) Mean Platelet Volume 7.1 FL (6.5-10.1) Neutrophils (%) (Auto) 65.8 % (45.0-75.0) Lymphocytes (%) (Auto) 20.5 % (20.0-45.0) Monocytes (%) (Auto) 8.8 % (1.0-10.0) Eosinophils (%) (Auto) 3.9 % (0.0-3.0) H Basophils (%) (Auto) 0.9 % (0.0-2.0) Sodium Level 138 MMOL/L (136-145) Potassium Level 4.9 MMOL/L (3.5-5.1) Chloride Level 102 MMOL/L (98-107) Carbon Dioxide Level 30 MMOL/L (21-32) Anion Gap 6 mmol/L (5-15) Blood Urea Nitrogen 29 mg/dL (7-18) H Creatinine 1.3 MG/DL (0.55-1.30) Estimat Glomerular Filtration Rate > 60 mL/min (>60) Glucose Level 170 MG/DL (74-106) H Calcium Level 9.2 MG/DL (8.5-10.1) Microbiology Date/Time Source Procedure Growth Status 04/21/19 20:45 Sputum Induced Gram Stain - Final Resulted 04/21/19 20:45 Sputum Induced Sputum Culture Pending Resulted Intake and Output 04/22/19 04/23/19 19:00 07:00 Intake Total 350.0 ml 940.0 ml Output Total 1300 ml 1000 ml Balance -950.0 ml -60.0 ml Intake Oral 240 ml 720 ml IV Total 110.0 ml 220.0 ml Output Urine Total 1300 ml 1000 ml # Bowel Movements 1 1 Objective GENERAL: Awake, responsive, no acute distress. HEAD AND NECK: Pupils are equal and reactive to light. Extraocular muscles intact. Neck was supple. No JVD. LUNGS: Decrease air entry at bases. No wheezes, No rales. HEART: S1, S2. Irregular. No murmur. pacemaker in the left-sided chest wall. ABDOMEN: Soft, nondistended, nontender. Morbid obesely. EXTREMITIES: No cyanosis, clubbing, edema. NEUROLOGIC: Cranial nerves II through XII grossly normal. Motor is 5/5 in all extremities. Gait is intact. RECTAL: Refused and deferred. PSYCHIATRIC: Mood and affect is intact. Assessment/Plan Assessment/Plan ASSESSMENT: 1. Acute hypoxemic respiratory failure, most likely secondary to acute COPD exacerbation. 2. Acute COPD exacerbation. 3. Pneumonia. 4. Sick sinus syndrome status post pacemaker. 5. Diabetes type 2. 6. Prostate cancer. 7. Hyperkalemia. 8. Insulin induced hyperglycemia. 9. Prostate enlargement. PLAN: in monitor broad-spectrum antibiotic : Zosyn IV Code status is Full Code. DVT prophylaxis: Eliquis. monitor cultures and laboratory in the morning. Follow up with Dr. Goldie Obrien, Pulmonary Critical Care consultation. Jewel Giraldo MD Apr 23, 2019 16:39
[2019-04-23 20:00] VITALS: BP 156/98
[2019-04-23] MEDS: Tamsulosin 0.4mg cap ORAL SCH (21:32)
[2019-04-23] MEDS: Levemir Flexpen SUBQ SCH (21:33)
[2019-04-24] VITALS (7 sets, daily range): BP systolic 108–150; BP diastolic 63–87
[2019-04-24] MEDS: Piperacillin/Tazobactam 3.375 GM in NS 110 ML IVPB SCH ×3 (02:00→17:28)
[2019-04-24] MEDS: Albuterol/Ipratropium 3ml neb HHN SCH ×7 (03:12→23:00)
[2019-04-24] MEDS: NovoLOG Insulin Flexpen SUBQ SCH ×8 (06:30→20:49)
[2019-04-24] MEDS: HYDROcodone/Acetamin 5/325 tab ORAL PRN ×2 (07:23→15:52)
--- NOTE | 2019-04-24 07:45 | Infectious Diseases Prog Note ---
Assessment/Plan Assessment/Plan Assessment: Acute hypoxic respiratory failure s/p bipap, now at [place] COPD exacerbation CHF exacerbation PNA -04/21 CTA chest:Somewhat limited exam, due to motion artifact. No definite evidence of pulmonary embolus or other acute thoracic vascular pathology. Borderline cardiomegaly. Diffuse bilateral pulmonary parenchymal groundglass opacity. Interspersed small bullae digestive this is due to COPD changes, but could also indicate a component of pulmonary edema. Considerable consolidation in the right lower lobe, likely pneumonia. Less extensive consolidation and atelectasis is seen at the left lung base. Pacemaker, degenerative spondylosis incidentally noted -04/19 CXR: Mild pulmonary vascular congestion -04/16 CXR: No acute disease -04/13 CXR: Suspected mild pulmonary vascular congestion. Correlate clinically -04/08 CXR: Mild pulmonary vascular congestion suspected Afebrile Leukocytosis,(s/p high dose steroids), SP KAYLAN, improving Hyperglycemia COPD CAD CHF prostate cancer s/p PPM former smoker Plan: -Cont empiric Zosyn #4 for PNA -04/15 SP Levaquin #7 -04/08 SP Ceftriaxone x1, Azithromycin x1 -Monitor CBC/CMP, temperatures -aspiration precautions -f/u sp cx Thank you for this consultation. Will continue to follow along with you. Subjective Allergies: Coded Allergies: No Known Allergies (Unverified , 10/24/16) Subjective Afebrile Stable 4-5L NC very hungry. asking for more food otherwise no complaints Objective Vital Signs Last 24 Hour Vital Signs Date Time Temp Pulse Resp B/P (MAP) Pulse Ox O2 Delivery O2 Flow Rate FiO2 04/24/19 04:00 Nasal Cannula 5.0 04/24/19 04:00 98.0 68 20 120/63 (82) 95 04/24/19 04:00 68 04/24/19 00:00 Nasal Cannula 5.0 04/24/19 00:00 98.0 72 20 138/83 (101) 91 04/24/19 00:00 73 04/23/19 23:26 70 20 98 Nasal Cannula 4.0 36 71 20 92 04/23/19 21:32 76 156/98 04/23/19 20:00 Nasal Cannula 5.0 04/23/19 20:00 98.8 76 22 156/98 (117) 96 04/23/19 20:00 85 04/23/19 19:40 94 Nasal Cannula 4.0 36 04/23/19 19:37 74 20 97 Nasal Cannula 4.0 36 72 20 94 04/23/19 16:09 Nasal Cannula 5.0 04/23/19 16:00 70 04/23/19 12:00 75 04/23/19 12:00 Nasal Cannula 5.0 04/23/19 11:08 69 19 97 Venturi Mask 8.0 40 69 21 69 04/23/19 09:53 67 137/67 04/23/19 08:50 87 Nasal Cannula 3.0 32 04/23/19 08:00 Nasal Cannula 5.0 04/23/19 08:00 72 Height (Feet): 6 Height (Inches): 0.00 Weight (Pounds): 191 Objective General Appearance: no distress HEENT: normocephalic, atraumatic Neck: supple Respiratory/Chest: chest wall non-tender, rhonchi - left, rhonchi - right Cardiovascular/Chest: no murmurs Extremities: normal range of motion Microbiology Date/Time Source Procedure Growth Status 04/21/19 20:45 Sputum Induced Gram Stain - Final Resulted 04/21/19 20:45 Sputum Induced Sputum Culture Pending Resulted Current Medications Medications (Trade) Dose Ordered Sig/Dejon Route PRN Reason Start Time Stop Time Status Last Admin Dose Admin Acetaminophen (Tylenol) 650 mg Q4H PRN ORAL fever 04/22/19 15:30 05/22/19 15:29 Acetaminophen/ Hydrocodone Bitart ([place] 5/325) 1 tab Q6H PRN ORAL Severe Pain (Pain Scale 7-10) 04/22/19 15:35 04/29/19 15:34 04/24/19 07:23 Albuterol/ Ipratropium (Albuterol/ Ipratropium) 3 ml Q4H PRN HHN Shortness of Breath 04/23/19 09:30 04/28/19 09:29 Albuterol/ Ipratropium (Albuterol/ Ipratropium) 3 ml Q4HRT HHN 04/23/19 11:00 04/28/19 10:59 04/23/19 23:26 Apixaban (Eliquis) 5 mg BID ORAL 04/22/19 18:00 05/09/19 08:59 04/23/19 17:43 Carvedilol (Coreg) 6.25 mg EVERY 12 HOURS ORAL 04/22/19 21:00 05/09/19 08:59 04/23/19 21:32 Clonidine HCl (Catapres Tab) 0.1 mg Q4H PRN ORAL sbp more than 160 04/22/19 15:30 05/22/19 15:29 Clotrimazole (Lotrimin) 1 applic THREE TIMES A DAY TOPIC 04/22/19 18:00 05/20/19 12:59 04/23/19 17:43 Dextrose (Dextrose 50%) 25 ml Q30M PRN IV Hypoglycemia 04/22/19 15:30 05/09/19 07:29 Dextrose (Dextrose 50%) 50 ml Q30M PRN IV Hypoglycemia 04/22/19 15:30 05/09/19 07:29 Insulin Aspart (NovoLOG) BEFORE MEALS AND HS SUBQ 04/22/19 16:30 05/09/19 13:29 04/23/19 21:34 Insulin Aspart (NovoLOG) 10 units NOVOTIAC SUBQ 04/22/19 16:50 05/10/19 07:29 04/23/19 06:01 Insulin Detemir (Levemir) 16 units BID SUBQ 04/24/19 09:00 05/09/19 20:59 Levothyroxine Sodium (Synthroid) 150 mcg ACBREAKFAST ORAL 04/23/19 06:30 05/09/19 06:29 04/24/19 07:23 Nitroglycerin (Ntg) 0.4 mg Q5M X 3 DOSES PRN SL Prn Chest Pain 04/22/19 15:30 05/08/19 21:29 04/23/19 07:28 Ondansetron HCl (Zofran) 4 mg Q6H PRN IVP Nausea & Vomiting 04/22/19 15:35 05/22/19 15:34 Piperacillin Sod/ Tazobactam Sod 3.375 gm/Sodium Chloride 110 ml @ 27.5 mls/hr Q8H IVPB 04/22/19 18:00 04/28/19 17:59 04/23/19 17:43 Promethazine HCl/ Codeine (Phenergan with Codeine) 5 ml Q6H PRN ORAL cough 04/22/19 15:35 05/22/19 15:34 Tamsulosin HCl (Flomax) 0.4 mg BEDTIME ORAL 04/22/19 21:00 05/09/19 20:59 04/23/19 21:32 Ailyn Beckham MD Apr 24, 2019 07:44
[2019-04-24] MEDS: Carvedilol 6.25mg Tab ORAL SCH ×2 (08:50→20:51)
[2019-04-24] MEDS: Eliquis 5mg tablet ORAL SCH ×2 (08:50→17:29)
[2019-04-24] MEDS: Levemir Flexpen SUBQ SCH ×2 (09:57→17:24)
--- NOTE | 2019-04-24 16:56 | Cardiology Progress Note ---
Assessment/Plan Problem List: (1) Pacemaker (2) Cardiac LV ejection fraction >40% (3) COPD (chronic obstructive pulmonary disease) (4) Respiratory failure with hypoxia (5) RBBB Status: not improved, unchanged Status Narrative COPD exacerbation - continues w/ dyspnea, desat w. minimal activity s/p pacemaker for sick sinus syndrome ( [facility]- records not available) hx of HTN type II DM Assessment/Plan Continue rx for COPD exacerbation as per primary team On coreg, and would consider restarting apixaban ( taking as outpt, ? for PAF) if no contraindication Will request records again from [facility] re: pacer, arrhythmia Subjective ROS Limited/Unobtainable: No Subjective Cardiology for Dr. Esquivel Pt dyspneic , desat to 87-89% after walking to [place] Objective Last 24 Hour Vital Signs Date Time Temp Pulse Resp B/P (MAP) Pulse Ox O2 Delivery O2 Flow Rate FiO2 04/24/19 16:00 Nasal Cannula 5.0 04/24/19 12:00 Nasal Cannula 5.0 04/24/19 12:00 97.8 67 22 122/80 (94) 90 04/24/19 11:55 70 04/24/19 08:50 92 150/87 04/24/19 08:00 Nasal Cannula 5.0 04/24/19 08:00 97.9 92 26 150/87 (108) 90 04/24/19 07:53 70 04/24/19 04:00 Nasal Cannula 5.0 04/24/19 04:00 98.0 68 20 120/63 (82) 95 04/24/19 04:00 68 04/24/19 00:00 Nasal Cannula 5.0 04/24/19 00:00 98.0 72 20 138/83 (101) 91 04/24/19 00:00 73 04/23/19 23:26 70 20 98 Nasal Cannula 4.0 36 71 20 92 04/23/19 21:32 76 156/98 04/23/19 20:00 Nasal Cannula 5.0 04/23/19 20:00 98.8 76 22 156/98 (117) 96 04/23/19 20:00 85 04/23/19 19:40 94 Nasal Cannula 4.0 36 04/23/19 19:37 74 20 97 Nasal Cannula 4.0 36 72 20 94 General Appearance: WD/WN, alert, mild distress EENT: PERRL/EOMI Neck: supple, no JVD Rhythm: NSR Cardiovascular: normal rate, regular rhythm, no gallop/murmur Respiratory/Chest: other - dec BS and few expir wheezes bilat Abdomen: non tender, soft Extremities: no swelling Intake and Output 04/23/19 04/24/19 19:00 07:00 Intake Total 1440 ml 600 ml Output Total 1400 ml 750 ml Balance 40 ml -150 ml Intake Oral 1440 ml 600 ml Output Urine Total 1400 ml 750 ml # Bowel Movements 2 1 Microbiology Date/Time Source Procedure Growth Status 04/21/19 20:45 Sputum Induced Gram Stain - Final Resulted 04/21/19 20:45 Sputum Induced Sputum Culture Pending Resulted Sivan Johnson MD Apr 24, 2019 16:56
--- NOTE | 2019-04-24 18:05 | Internal Med Progress Note ---
Subjective Date of Service: Apr 24, 2019 Physician Name Lugo,Idris Attending Physician Jewel Giraldo MD Current Medications Medications (Trade) Dose Ordered Sig/Dejon Route PRN Reason Start Time Stop Time Status Last Admin Dose Admin Acetaminophen (Tylenol) 650 mg Q4H PRN ORAL fever 04/22/19 15:30 05/22/19 15:29 Acetaminophen/ Hydrocodone Bitart ([place] 5/325) 1 tab Q6H PRN ORAL Severe Pain (Pain Scale 7-10) 04/22/19 15:35 04/29/19 15:34 04/24/19 15:52 Albuterol/ Ipratropium (Albuterol/ Ipratropium) 3 ml Q4H PRN HHN Shortness of Breath 04/23/19 09:30 04/28/19 09:29 Albuterol/ Ipratropium (Albuterol/ Ipratropium) 3 ml Q4HRT HHN 04/23/19 11:00 04/28/19 10:59 04/24/19 15:21 Apixaban (Eliquis) 5 mg BID ORAL 04/22/19 18:00 05/09/19 08:59 04/24/19 17:29 Carvedilol (Coreg) 6.25 mg EVERY 12 HOURS ORAL 04/22/19 21:00 05/09/19 08:59 04/24/19 08:50 Clonidine HCl (Catapres Tab) 0.1 mg Q4H PRN ORAL sbp more than 160 04/22/19 15:30 05/22/19 15:29 Clotrimazole (Lotrimin) 1 applic THREE TIMES A DAY TOPIC 04/22/19 18:00 05/20/19 12:59 04/24/19 17:29 Dextrose (Dextrose 50%) 25 ml Q30M PRN IV Hypoglycemia 04/22/19 15:30 05/09/19 07:29 Dextrose (Dextrose 50%) 50 ml Q30M PRN IV Hypoglycemia 04/22/19 15:30 05/09/19 07:29 Insulin Aspart (NovoLOG) BEFORE MEALS AND HS SUBQ 04/22/19 16:30 05/09/19 13:29 04/24/19 11:21 Insulin Aspart (NovoLOG) 10 units NOVOTIAC SUBQ 04/22/19 16:50 05/10/19 07:29 04/24/19 11:22 Insulin Detemir (Levemir) 16 units BID SUBQ 04/24/19 09:00 05/09/19 20:59 04/24/19 09:57 Levothyroxine Sodium (Synthroid) 150 mcg ACBREAKFAST ORAL 04/23/19 06:30 05/09/19 06:29 04/24/19 07:23 Nitroglycerin (Ntg) 0.4 mg Q5M X 3 DOSES PRN SL Prn Chest Pain 04/22/19 15:30 05/08/19 21:29 04/23/19 07:28 Ondansetron HCl (Zofran) 4 mg Q6H PRN IVP Nausea & Vomiting 04/22/19 15:35 05/22/19 15:34 Piperacillin Sod/ Tazobactam Sod 3.375 gm/Sodium Chloride 110 ml @ 27.5 mls/hr Q8H IVPB 04/22/19 18:00 04/28/19 17:59 04/24/19 17:28 Promethazine HCl/ Codeine (Phenergan with Codeine) 5 ml Q6H PRN ORAL cough 04/22/19 15:35 05/22/19 15:34 Tamsulosin HCl (Flomax) 0.4 mg BEDTIME ORAL 04/22/19 21:00 05/09/19 20:59 04/23/19 21:32 Allergies: Coded Allergies: No Known Allergies (Unverified , 10/24/16) ROS Limited/Unobtainable: Yes Subjective 73 YO M admitted with COPD exacerbation. Now respiratory failure. Cover for Int Med-DR Giraldo. CALVIN Objective Last Vital Signs Date Time Temp Pulse Resp B/P (MAP) Pulse Ox O2 Delivery O2 Flow Rate FiO2 04/24/19 16:00 97.9 71 24 108/79 (89) 91 04/24/19 16:00 Nasal Cannula 5.0 04/24/19 15:31 36 Microbiology Date/Time Source Procedure Growth Status 04/21/19 20:45 Sputum Induced Gram Stain - Final Resulted 04/21/19 20:45 Sputum Induced Sputum Culture Pending Resulted Intake and Output 04/23/19 04/24/19 19:00 07:00 Intake Total 1440 ml 600 ml Output Total 1400 ml 750 ml Balance 40 ml -150 ml Intake Oral 1440 ml 600 ml Output Urine Total 1400 ml 750 ml # Bowel Movements 2 1 Objective PHYSICAL EXAMINATION: GENERAL: The patient is awake, responsive, no acute distress. HEAD AND NECK: Pupils are equal and reactive to light. Extraocular muscles intact. Neck was supple. No JVD. LUNGS: BIPAP;The patient has expiratory wheezes noted. Tachypneic. No rhonchi was noted. HEART: S1, S2. Irregular. No murmur. The patient has a pacemaker in the left-sided chest wall. ABDOMEN: Soft, nondistended, nontender. Mildly obese. EXTREMITIES: No cyanosis, clubbing, edema. NEUROLOGIC: Cranial nerves II through XII grossly normal. Motor is 5/5 in all extremities. Gait is intact. GENITOURINARY: It was noted the patient has a [place] catheter. RECTAL: Refused and deferred. PSYCHIATRIC: Mood and affect is intact. Assessment/Plan Assessment/Plan ASSESSMENT: 1. Acute hypoxemic respiratory failure, most likely secondary to acute COPD exacerbation. 2. Acute COPD exacerbation. 3. Pneumonia. 4. Sick sinus syndrome status post pacemaker. 5. Diabetes type 2. 6. Prostate cancer. 7. Hyperkalemia. 8. Insulin induced hyperglycemia. 9. Prostate enlargement. 10. Leukocytosis 11. RBBB PLAN: 1. CALVIN 2. D/C Solu-Medrol IV Per Pulmonary consult=Dr. Obrien. 3. Endocrinology=Dr To. Monitor blood glucose level closely. 4. antibiotic=Zosyn. ID=Dr Villa 5. Code status is Full Code. DVT prophylaxis, he is on Eliquis. Idris Lugo MD Apr 24, 2019 18:05
[2019-04-24] MEDS: Tamsulosin 0.4mg cap ORAL SCH (20:51)
[2019-04-25] VITALS: BP 117/74
[2019-04-25] MEDS: Piperacillin/Tazobactam 3.375 GM in NS 110 ML IVPB SCH ×3 (02:39→17:19)
[2019-04-25] MEDS: Albuterol/Ipratropium 3ml neb HHN SCH ×6 (03:00→23:23)
[2019-04-25] MEDS: HYDROcodone/Acetamin 5/325 tab ORAL PRN ×2 (03:17→20:54)
[2019-04-25] MEDS: NovoLOG Insulin Flexpen SUBQ SCH ×6 (05:38→20:52)
[2019-04-25 07:37] LABS: BASOPHILS % (AUTO) 0.9 % (0.0-2.0); EOSINOPHILS % (AUTO) 4.5 % (0.0-3.0); HEMATOCRIT 40.6 % (42.0-52.0); HEMOGLOBIN 13.2 G/DL (14.2-18.0); LYMPHOCYTES % (AUTO) 22.4 % (20.0-45.0); MEAN CORPUSCULAR VOLUME 92 FL (80-99); NEUTROPHILS % (AUTO) 68.2 % (45.0-75.0); PLATELET COUNT 161 K/UL (150-450); RED BLOOD COUNT 4.43 M/UL (4.70-6.10); RED CELL DISTRIBUTION WIDTH 14.4 % (11.6-14.8); WHITE BLOOD COUNT 9.8 K/UL (4.8-10.8)
[2019-04-25 08:00] VITALS: BP 105/74
[2019-04-25 08:11] LABS: ANION GAP 11 mmol/L (5-15); BLOOD UREA NITROGEN 20 mg/dL (7-18); CALCIUM 9.2 MG/DL (8.5-10.1); CARBON DIOXIDE 29 MMOL/L (21-32); CHLORIDE 100 MMOL/L (98-107); POTASSIUM 4.9 MMOL/L (3.5-5.1); SODIUM 140 MMOL/L (136-145)
[2019-04-25] MEDS: Eliquis 5mg tablet ORAL SCH ×2 (09:11→17:18)
[2019-04-25] MEDS: Carvedilol 6.25mg Tab ORAL SCH ×2 (09:12→20:54)
[2019-04-25] MEDS: Levemir Flexpen SUBQ SCH ×2 (09:13→17:20)
[2019-04-25] MEDS ORDERED: NS 275ml ONE (11:02)
[2019-04-25 12:00] VITALS: BP 118/73
[2019-04-25 16:00] VITALS: BP 113/77
--- NOTE | 2019-04-25 16:37 | Internal Med Progress Note ---
Subjective Date of Service: Apr 25, 2019 Physician Name BrittneyIdris Attending Physician Jewel Giraldo MD Current Medications Medications (Trade) Dose Ordered Sig/Dejon Route PRN Reason Start Time Stop Time Status Last Admin Dose Admin Acetaminophen (Tylenol) 650 mg Q4H PRN ORAL fever 04/22/19 15:30 05/22/19 15:29 Acetaminophen/ Hydrocodone Bitart ([place] 5/325) 1 tab Q6H PRN ORAL Severe Pain (Pain Scale 7-10) 04/22/19 15:35 04/29/19 15:34 04/25/19 03:17 Albuterol/ Ipratropium (Albuterol/ Ipratropium) 3 ml Q4H PRN HHN Shortness of Breath 04/23/19 09:30 04/28/19 09:29 Albuterol/ Ipratropium (Albuterol/ Ipratropium) 3 ml Q4HRT HHN 04/23/19 11:00 04/28/19 10:59 04/25/19 14:13 Apixaban (Eliquis) 5 mg BID ORAL 04/22/19 18:00 05/09/19 08:59 04/25/19 09:11 Carvedilol (Coreg) 6.25 mg EVERY 12 HOURS ORAL 04/22/19 21:00 05/09/19 08:59 04/25/19 09:12 Clonidine HCl (Catapres Tab) 0.1 mg Q4H PRN ORAL sbp more than 160 04/22/19 15:30 05/22/19 15:29 Clotrimazole (Lotrimin) 1 applic THREE TIMES A DAY TOPIC 04/22/19 18:00 05/20/19 12:59 04/25/19 12:43 Dextrose (Dextrose 50%) 25 ml Q30M PRN IV Hypoglycemia 04/22/19 15:30 05/09/19 07:29 Dextrose (Dextrose 50%) 50 ml Q30M PRN IV Hypoglycemia 04/22/19 15:30 05/09/19 07:29 Insulin Aspart (NovoLOG) BEFORE MEALS AND HS SUBQ 04/22/19 16:30 05/09/19 13:29 04/25/19 16:30 Insulin Aspart (NovoLOG) 10 units NOVOTIAC SUBQ 04/22/19 16:50 05/10/19 07:29 04/25/19 16:30 Insulin Detemir (Levemir) 16 units BID SUBQ 04/24/19 09:00 05/09/19 20:59 04/25/19 09:13 Levothyroxine Sodium (Synthroid) 150 mcg ACBREAKFAST ORAL 04/23/19 06:30 05/09/19 06:29 04/24/19 07:23 Nitroglycerin (Ntg) 0.4 mg Q5M X 3 DOSES PRN SL Prn Chest Pain 04/22/19 15:30 05/08/19 21:29 04/23/19 07:28 Ondansetron HCl (Zofran) 4 mg Q6H PRN IVP Nausea & Vomiting 04/22/19 15:35 05/22/19 15:34 Piperacillin Sod/ Tazobactam Sod 3.375 gm/Sodium Chloride 110 ml @ 27.5 mls/hr Q8H IVPB 04/22/19 18:00 04/28/19 17:59 04/25/19 09:14 Promethazine HCl/ Codeine (Phenergan with Codeine) 5 ml Q6H PRN ORAL cough 04/22/19 15:35 05/22/19 15:34 Tamsulosin HCl (Flomax) 0.4 mg BEDTIME ORAL 04/22/19 21:00 05/09/19 20:59 04/24/19 20:51 Allergies: Coded Allergies: No Known Allergies (Unverified , 10/24/16) ROS Limited/Unobtainable: Yes Subjective 73 YO M admitted with COPD exacerbation. Now respiratory failure and pneumonia. Cover for Int Med-DR Giraldo. CALVIN Objective Last Vital Signs Date Time Temp Pulse Resp B/P (MAP) Pulse Ox O2 Delivery O2 Flow Rate FiO2 04/25/19 16:00 Nasal Cannula 5.0 04/25/19 14:14 76 20 96 28 74 20 93 04/25/19 12:00 97.8 118/73 (88) Laboratory Tests Test 04/25/19 05:10 White Blood Count 9.8 K/UL (4.8-10.8) Red Blood Count 4.43 M/UL (4.70-6.10) L Hemoglobin 13.2 G/DL (14.2-18.0) L Hematocrit 40.6 % (42.0-52.0) L Mean Corpuscular Volume 92 FL (80-99) Mean Corpuscular Hemoglobin 29.8 PG (27.0-31.0) Mean Corpuscular Hemoglobin Concent 32.5 G/DL (32.0-36.0) Red Cell Distribution Width 14.4 % (11.6-14.8) Platelet Count 161 K/UL (150-450) Mean Platelet Volume 7.3 FL (6.5-10.1) Neutrophils (%) (Auto) 68.2 % (45.0-75.0) Lymphocytes (%) (Auto) 22.4 % (20.0-45.0) Monocytes (%) (Auto) 4.0 % (1.0-10.0) Eosinophils (%) (Auto) 4.5 % (0.0-3.0) H Basophils (%) (Auto) 0.9 % (0.0-2.0) Sodium Level 140 MMOL/L (136-145) Potassium Level 4.9 MMOL/L (3.5-5.1) Chloride Level 100 MMOL/L (98-107) Carbon Dioxide Level 29 MMOL/L (21-32) Anion Gap 11 mmol/L (5-15) Blood Urea Nitrogen 20 mg/dL (7-18) H Creatinine 1.0 MG/DL (0.55-1.30) Estimat Glomerular Filtration Rate > 60 mL/min (>60) Glucose Level 198 MG/DL (74-106) H Calcium Level 9.2 MG/DL (8.5-10.1) Intake and Output 04/24/19 04/25/19 19:00 07:00 Intake Total 710.0 ml 510.000 ml Output Total 1200 ml 950 ml Balance -490.0 ml -440.000 ml Intake Oral 600 ml 400 ml IV Total 110.0 ml 110.000 ml Output Urine Total 1200 ml 950 ml # Voids 1 # Bowel Movements 1 1 Objective PHYSICAL EXAMINATION: GENERAL: The patient is awake, responsive, no acute distress. HEAD AND NECK: Pupils are equal and reactive to light. Extraocular muscles intact. Neck was supple. No JVD. LUNGS: BIPAP;The patient has expiratory wheezes noted. Tachypneic. No rhonchi was noted. HEART: S1, S2. Irregular. No murmur. The patient has a pacemaker in the left-sided chest wall. ABDOMEN: Soft, nondistended, nontender. Mildly obese. EXTREMITIES: No cyanosis, clubbing, edema. NEUROLOGIC: Cranial nerves II through XII grossly normal. Motor is 5/5 in all extremities. Gait is intact. GENITOURINARY: It was noted the patient has a [place] catheter. RECTAL: Refused and deferred. PSYCHIATRIC: Mood and affect is intact. Assessment/Plan Assessment/Plan ASSESSMENT: 1. Acute hypoxemic respiratory failure, most likely secondary to acute COPD exacerbation. 2. Acute COPD exacerbation. 3. Pneumonia. 4. Sick sinus syndrome status post pacemaker. 5. Diabetes type 2. 6. Prostate cancer. 7. Hyperkalemia. 8. Insulin induced hyperglycemia. 9. Prostate enlargement. 10. Leukocytosis 11. RBBB PLAN: 1. CALVIN 2. D/C Solu-Medrol IV Per Pulmonary consult=Dr. Obrien. 3. Endocrinology=Dr To. Monitor blood glucose level closely. 4. antibiotic=Zosyn. ID=Dr Beckham 5. Code status is Full Code. DVT prophylaxis, he is on Eliquis. Idris Lugo MD Apr 25, 2019 16:37
[2019-04-25 20:00] VITALS: BP 120/88
[2019-04-25] MEDS: Tamsulosin 0.4mg cap ORAL SCH (20:53)
[2019-04-26] VITALS: BP 114/73
[2019-04-26] MEDS: Piperacillin/Tazobactam 3.375 GM in NS 110 ML IVPB SCH ×3 (01:16→17:13)
[2019-04-26] MEDS: Albuterol/Ipratropium 3ml neb HHN SCH ×7 (02:56→22:49)
[2019-04-26 04:00] VITALS: BP 119/85
[2019-04-26] MEDS: HYDROcodone/Acetamin 5/325 tab ORAL PRN ×3 (04:53→22:04)
[2019-04-26 05:26] LABS: BASOPHILS % (AUTO) 1.2 % (0.0-2.0); EOSINOPHILS % (AUTO) 4.7 % (0.0-3.0); HEMATOCRIT 36.9 % (42.0-52.0); LYMPHOCYTES % (AUTO) 21.8 % (20.0-45.0); MEAN CORPUSCULAR VOLUME 91 FL (80-99); MONOCYTES % (AUTO) 6.8 % (1.0-10.0); NEUTROPHILS % (AUTO) 65.6 % (45.0-75.0); PLATELET COUNT 164 K/UL (150-450); RED BLOOD COUNT 4.05 M/UL (4.70-6.10); RED CELL DISTRIBUTION WIDTH 14.6 % (11.6-14.8); WHITE BLOOD COUNT 9.6 K/UL (4.8-10.8)
[2019-04-26 05:51] LABS: ANION GAP 4 mmol/L (5-15); BLOOD UREA NITROGEN 19 mg/dL (7-18); CALCIUM 8.7 MG/DL (8.5-10.1); CARBON DIOXIDE 33 MMOL/L (21-32); CHLORIDE 101 MMOL/L (98-107); CREATININE 1.1 MG/DL (0.55-1.30); POTASSIUM 4.1 MMOL/L (3.5-5.1); SODIUM 138 MMOL/L (136-145)
[2019-04-26] MEDS: NovoLOG Insulin Flexpen SUBQ SCH ×7 (05:55→20:26)
[2019-04-26 08:00] VITALS: BP 126/84
[2019-04-26] MEDS: Eliquis 5mg tablet ORAL SCH ×2 (08:49→17:12)
[2019-04-26] MEDS: Carvedilol 6.25mg Tab ORAL SCH ×2 (08:49→20:22)
[2019-04-26] MEDS: Levemir Flexpen SUBQ SCH ×2 (08:50→17:15)
[2019-04-26 12:00] VITALS: BP 108/75
--- NOTE | 2019-04-26 12:10 | Infectious Diseases Prog Note ---
Assessment/Plan Assessment/Plan Assessment: Acute hypoxic respiratory failure s/p bipap, now at [place] COPD exacerbation CHF exacerbation PNA -04/21 CTA chest:Somewhat limited exam, due to motion artifact. No definite evidence of pulmonary embolus or other acute thoracic vascular pathology. Borderline cardiomegaly. Diffuse bilateral pulmonary parenchymal groundglass opacity. Interspersed small bullae digestive this is due to COPD changes, but could also indicate a component of pulmonary edema. Considerable consolidation in the right lower lobe, likely pneumonia. Less extensive consolidation and atelectasis is seen at the left lung base. Pacemaker, degenerative spondylosis incidentally noted sp cx normal resp michael -04/19 CXR: Mild pulmonary vascular congestion -04/16 CXR: No acute disease -04/13 CXR: Suspected mild pulmonary vascular congestion. Correlate clinically -04/08 CXR: Mild pulmonary vascular congestion suspected Afebrile Leukocytosis,(s/p high dose steroids), SP KAYLAN, improving Hyperglycemia COPD CAD CHF prostate cancer s/p PPM former smoker Plan: -Cont empiric Zosyn #6/7 for PNA -04/15 SP Levaquin #7 -04/08 SP Ceftriaxone x1, Azithromycin x1 -Monitor CBC/CMP, temperatures -aspiration precautions Thank you for this consultation. Will continue to follow along with you. Subjective Allergies: Coded Allergies: No Known Allergies (Unverified , 10/24/16) Subjective afebrile no leukocytosis at 4l MA Objective Vital Signs Last 24 Hour Vital Signs Date Time Temp Pulse Resp B/P (MAP) Pulse Ox O2 Delivery O2 Flow Rate FiO2 04/26/19 10:41 71 24 96 Nasal Cannula 4.0 36 69 24 90 04/26/19 08:49 71 126/84 04/26/19 08:00 97.7 71 22 126/84 (98) 92 04/26/19 08:00 70 04/26/19 08:00 Nasal Cannula 5.0 04/26/19 07:54 73 20 95 Nasal Cannula 4.0 36 71 24 92 04/26/19 07:53 92 Nasal Cannula 4.0 36 04/26/19 05:23 98.4 04/26/19 04:00 98.4 71 22 119/85 (96) 94 04/26/19 04:00 Nasal Cannula 5.0 04/26/19 04:00 72 04/26/19 02:56 74 20 96 Nasal Cannula 2.0 28 77 22 91 04/26/19 00:00 97.8 70 20 114/73 (87) 94 04/26/19 00:00 Nasal Cannula 5.0 04/25/19 23:32 71 04/25/19 23:20 71 20 95 Nasal Cannula 2.0 28 74 22 93 04/25/19 20:54 72 120/88 04/25/19 20:00 97.9 72 20 120/88 (99) 94 04/25/19 20:00 Nasal Cannula 5.0 04/25/19 19:38 72 04/25/19 19:29 Nasal Cannula 3.0 32 04/25/19 19:29 71 20 95 Nasal Cannula 2.0 28 70 22 90 04/25/19 16:00 97.5 85 21 113/77 (89) 92 04/25/19 16:00 Nasal Cannula 5.0 04/25/19 14:14 76 20 96 Nasal Cannula 2.0 28 74 20 93 Height (Feet): 6 Height (Inches): 0.00 Weight (Pounds): 191 Objective General Appearance: no distress HEENT: normocephalic, atraumatic Neck: supple Respiratory/Chest: chest wall non-tender, rhonchi - left, rhonchi - right Cardiovascular/Chest: no murmurs Extremities: normal range of motion Laboratory Tests Test 04/26/19 03:25 White Blood Count 9.6 K/UL (4.8-10.8) Red Blood Count 4.05 M/UL (4.70-6.10) L Hemoglobin 12.0 G/DL (14.2-18.0) L Hematocrit 36.9 % (42.0-52.0) L Mean Corpuscular Volume 91 FL (80-99) Mean Corpuscular Hemoglobin 29.6 PG (27.0-31.0) Mean Corpuscular Hemoglobin Concent 32.5 G/DL (32.0-36.0) Red Cell Distribution Width 14.6 % (11.6-14.8) Platelet Count 164 K/UL (150-450) Mean Platelet Volume 8.3 FL (6.5-10.1) Neutrophils (%) (Auto) 65.6 % (45.0-75.0) Lymphocytes (%) (Auto) 21.8 % (20.0-45.0) Monocytes (%) (Auto) 6.8 % (1.0-10.0) Eosinophils (%) (Auto) 4.7 % (0.0-3.0) H Basophils (%) (Auto) 1.2 % (0.0-2.0) Sodium Level 138 MMOL/L (136-145) Potassium Level 4.1 MMOL/L (3.5-5.1) Chloride Level 101 MMOL/L (98-107) Carbon Dioxide Level 33 MMOL/L (21-32) H Anion Gap 4 mmol/L (5-15) L Blood Urea Nitrogen 19 mg/dL (7-18) H Creatinine 1.1 MG/DL (0.55-1.30) Estimat Glomerular Filtration Rate > 60 mL/min (>60) Glucose Level 228 MG/DL (74-106) H Calcium Level 8.7 MG/DL (8.5-10.1) Thyroid Stimulating Hormone (TSH) 15.703 uiU/mL (0.358-3.740) Current Medications Medications (Trade) Dose Ordered Sig/Dejon Route PRN Reason Start Time Stop Time Status Last Admin Dose Admin Acetaminophen (Tylenol) 650 mg Q4H PRN ORAL fever 04/22/19 15:30 05/22/19 15:29 Acetaminophen/ Hydrocodone Bitart ([place] 5/325) 1 tab Q6H PRN ORAL Severe Pain (Pain Scale 7-10) 04/22/19 15:35 04/29/19 15:34 04/26/19 04:53 Albuterol/ Ipratropium (Albuterol/ Ipratropium) 3 ml Q4H PRN HHN Shortness of Breath 04/23/19 09:30 04/28/19 09:29 Albuterol/ Ipratropium (Albuterol/ Ipratropium) 3 ml Q4HRT HHN 04/23/19 11:00 04/28/19 10:59 04/26/19 10:43 Apixaban (Eliquis) 5 mg BID ORAL 04/22/19 18:00 05/09/19 08:59 04/26/19 08:49 Carvedilol (Coreg) 6.25 mg EVERY 12 HOURS ORAL 04/22/19 21:00 05/09/19 08:59 04/26/19 08:49 Clonidine HCl (Catapres Tab) 0.1 mg Q4H PRN ORAL sbp more than 160 04/22/19 15:30 05/22/19 15:29 Clotrimazole (Lotrimin) 1 applic THREE TIMES A DAY TOPIC 04/22/19 18:00 05/20/19 12:59 04/26/19 08:49 Dextrose (Dextrose 50%) 25 ml Q30M PRN IV Hypoglycemia 04/22/19 15:30 05/09/19 07:29 Dextrose (Dextrose 50%) 50 ml Q30M PRN IV Hypoglycemia 04/22/19 15:30 05/09/19 07:29 Insulin Aspart (NovoLOG) BEFORE MEALS AND HS SUBQ 04/22/19 16:30 05/09/19 13:29 04/26/19 11:44 Insulin Aspart (NovoLOG) 10 units NOVOTIAC SUBQ 04/22/19 16:50 05/10/19 07:29 04/26/19 11:47 Insulin Detemir (Levemir) 16 units BID SUBQ 04/24/19 09:00 05/09/19 20:59 04/26/19 08:50 Levothyroxine Sodium (Synthroid) 150 mcg ACBREAKFAST ORAL 04/23/19 06:30 05/09/19 06:29 04/26/19 05:53 Nitroglycerin (Ntg) 0.4 mg Q5M X 3 DOSES PRN SL Prn Chest Pain 04/22/19 15:30 05/08/19 21:29 04/23/19 07:28 Ondansetron HCl (Zofran) 4 mg Q6H PRN IVP Nausea & Vomiting 04/22/19 15:35 05/22/19 15:34 Piperacillin Sod/ Tazobactam Sod 3.375 gm/Sodium Chloride 110 ml @ 27.5 mls/hr Q8H IVPB 04/22/19 18:00 04/28/19 17:59 04/26/19 10:01 Promethazine HCl/ Codeine (Phenergan with Codeine) 5 ml Q6H PRN ORAL cough 04/22/19 15:35 05/22/19 15:34 Tamsulosin HCl (Flomax) 0.4 mg BEDTIME ORAL 04/22/19 21:00 05/09/19 20:59 04/25/19 20:53 An Villa M.D. Apr 26, 2019 12:10
[2019-04-26 16:00] VITALS: BP 114/83
--- NOTE | 2019-04-26 17:07 | Internal Med Progress Note ---
Subjective Date of Service: Apr 26, 2019 Physician Name Lugo,Idris Attending Physician Jewel Giraldo MD Current Medications Medications (Trade) Dose Ordered Sig/Dejon Route PRN Reason Start Time Stop Time Status Last Admin Dose Admin Acetaminophen (Tylenol) 650 mg Q4H PRN ORAL fever 04/22/19 15:30 05/22/19 15:29 Acetaminophen/ Hydrocodone Bitart ([place] 5/325) 1 tab Q6H PRN ORAL Severe Pain (Pain Scale 7-10) 04/22/19 15:35 04/29/19 15:34 04/26/19 13:27 Albuterol/ Ipratropium (Albuterol/ Ipratropium) 3 ml Q4H PRN HHN Shortness of Breath 04/23/19 09:30 04/28/19 09:29 Albuterol/ Ipratropium (Albuterol/ Ipratropium) 3 ml Q4HRT HHN 04/23/19 11:00 04/28/19 10:59 04/26/19 15:05 Apixaban (Eliquis) 5 mg BID ORAL 04/22/19 18:00 05/09/19 08:59 04/26/19 08:49 Carvedilol (Coreg) 6.25 mg EVERY 12 HOURS ORAL 04/22/19 21:00 05/09/19 08:59 04/26/19 08:49 Clonidine HCl (Catapres Tab) 0.1 mg Q4H PRN ORAL sbp more than 160 04/22/19 15:30 05/22/19 15:29 Clotrimazole (Lotrimin) 1 applic THREE TIMES A DAY TOPIC 04/22/19 18:00 05/20/19 12:59 04/26/19 13:27 Dextrose (Dextrose 50%) 25 ml Q30M PRN IV Hypoglycemia 04/22/19 15:30 05/09/19 07:29 Dextrose (Dextrose 50%) 50 ml Q30M PRN IV Hypoglycemia 04/22/19 15:30 05/09/19 07:29 Escitalopram Oxalate (Lexapro) 10 mg DAILY ORAL 04/27/19 09:00 05/27/19 08:59 Insulin Aspart (NovoLOG) BEFORE MEALS AND HS SUBQ 04/22/19 16:30 05/09/19 13:29 04/26/19 11:44 Insulin Aspart (NovoLOG) 10 units NOVOTIAC SUBQ 04/22/19 16:50 05/10/19 07:29 04/26/19 11:47 Insulin Detemir (Levemir) 16 units BID SUBQ 04/24/19 09:00 05/09/19 20:59 04/26/19 08:50 Levothyroxine Sodium (Synthroid) 75 mcg ACBREAKFAST ORAL 04/27/19 06:30 05/27/19 06:29 Levothyroxine Sodium (Synthroid) 100 mcg ACBREAKFAST ORAL 04/27/19 06:30 05/09/19 06:29 Nitroglycerin (Ntg) 0.4 mg Q5M X 3 DOSES PRN SL Prn Chest Pain 04/22/19 15:30 05/08/19 21:29 04/23/19 07:28 Ondansetron HCl (Zofran) 4 mg Q6H PRN IVP Nausea & Vomiting 04/22/19 15:35 05/22/19 15:34 Piperacillin Sod/ Tazobactam Sod 3.375 gm/Sodium Chloride 110 ml @ 27.5 mls/hr Q8H IVPB 04/22/19 18:00 04/28/19 17:59 04/26/19 10:01 Promethazine HCl/ Codeine (Phenergan with Codeine) 5 ml Q6H PRN ORAL cough 04/22/19 15:35 05/22/19 15:34 Tamsulosin HCl (Flomax) 0.4 mg BEDTIME ORAL 04/22/19 21:00 05/09/19 20:59 04/25/19 20:53 Allergies: Coded Allergies: No Known Allergies (Unverified , 10/24/16) ROS Limited/Unobtainable: Yes Subjective 73 YO M admitted with COPD exacerbation. Now respiratory failure and pneumonia. Cover for Int Med-DR Giraldo. [place] Objective Last Vital Signs Date Time Temp Pulse Resp B/P (MAP) Pulse Ox O2 Delivery O2 Flow Rate FiO2 04/26/19 15:02 71 24 94 Nasal Cannula 2.0 28 86 24 89 04/26/19 12:00 97.9 108/75 (86) Laboratory Tests Test 04/26/19 03:25 White Blood Count 9.6 K/UL (4.8-10.8) Red Blood Count 4.05 M/UL (4.70-6.10) L Hemoglobin 12.0 G/DL (14.2-18.0) L Hematocrit 36.9 % (42.0-52.0) L Mean Corpuscular Volume 91 FL (80-99) Mean Corpuscular Hemoglobin 29.6 PG (27.0-31.0) Mean Corpuscular Hemoglobin Concent 32.5 G/DL (32.0-36.0) Red Cell Distribution Width 14.6 % (11.6-14.8) Platelet Count 164 K/UL (150-450) Mean Platelet Volume 8.3 FL (6.5-10.1) Neutrophils (%) (Auto) 65.6 % (45.0-75.0) Lymphocytes (%) (Auto) 21.8 % (20.0-45.0) Monocytes (%) (Auto) 6.8 % (1.0-10.0) Eosinophils (%) (Auto) 4.7 % (0.0-3.0) H Basophils (%) (Auto) 1.2 % (0.0-2.0) Sodium Level 138 MMOL/L (136-145) Potassium Level 4.1 MMOL/L (3.5-5.1) Chloride Level 101 MMOL/L (98-107) Carbon Dioxide Level 33 MMOL/L (21-32) H Anion Gap 4 mmol/L (5-15) L Blood Urea Nitrogen 19 mg/dL (7-18) H Creatinine 1.1 MG/DL (0.55-1.30) Estimat Glomerular Filtration Rate > 60 mL/min (>60) Glucose Level 228 MG/DL (74-106) H Calcium Level 8.7 MG/DL (8.5-10.1) Thyroid Stimulating Hormone (TSH) 15.703 uiU/mL (0.358-3.740) Intake and Output 04/25/19 04/26/19 19:00 07:00 Intake Total 887.5 ml 467.5000 ml Output Total 950 ml 1100 ml Balance -62.5 ml -632.5000 ml Intake Oral 750 ml 275 ml IV Total 137.5 ml 192.5000 ml Output Urine Total 950 ml 1100 ml # Voids 1 # Bowel Movements 1 Objective PHYSICAL EXAMINATION: GENERAL: The patient is awake, responsive, no acute distress. HEAD AND NECK: Pupils are equal and reactive to light. Extraocular muscles intact. Neck was supple. No JVD. LUNGS: BIPAP;The patient has expiratory wheezes noted. Tachypneic. No rhonchi was noted. HEART: S1, S2. Irregular. No murmur. The patient has a pacemaker in the left-sided chest wall. ABDOMEN: Soft, nondistended, nontender. Mildly obese. EXTREMITIES: No cyanosis, clubbing, edema. NEUROLOGIC: Cranial nerves II through XII grossly normal. Motor is 5/5 in all extremities. Gait is intact. GENITOURINARY: It was noted the patient has a [place] catheter. RECTAL: Refused and deferred. PSYCHIATRIC: Mood and affect is intact. Assessment/Plan Assessment/Plan ASSESSMENT: 1. Acute hypoxemic respiratory failure, most likely secondary to acute COPD exacerbation. 2. Acute COPD exacerbation. 3. Pneumonia. 4. Sick sinus syndrome status post pacemaker. 5. Diabetes type 2. 6. Prostate cancer. 7. Hyperkalemia. 8. Insulin induced hyperglycemia. 9. Prostate enlargement. 10. Leukocytosis 11. RBBB PLAN: 1. CALVIN 2. D/C Solu-Medrol IV Per Pulmonary consult=Dr. Obrien. 3. Endocrinology=Dr To. Monitor blood glucose level closely. 4. antibiotic=Zosyn. ID=Dr Beckham 5. Code status is Full Code. DVT prophylaxis, he is on Eliquis. Idris Lugo MD Apr 26, 2019 17:07
[2019-04-26 20:00] VITALS: BP 112/78
[2019-04-26] MEDS: Tamsulosin 0.4mg cap ORAL SCH (20:22)
--- NOTE | 2019-04-26 20:31 | Geriatric Medicine Prog Note ---
SUBJECTIVE: The patient is feeling better each day. PHYSICAL EXAMINATION: VITAL SIGNS: Blood pressure 108/75, pulse 70, respiratory rate 20, temperature 97.9. RESPIRATORY: Clear. CARDIOVASCULAR: Regular. LABORATORY DATA: TSH 15.703 (normal range 0.358 to 3.740), glucose is 148 mg%. ASSESSMENT: 1. Diabetes mellitus, fair control. 2. Hypothyroidism, on inadequate replacement. PLAN: 1. Continue Levemir insulin 16 units q. 12 hours with NovoLog 20 t.i.d. 2. Increase levothyroxine from 150 to 175 mcg daily. Rosendo Lopez M.D. DR: NAKITA JOB#: [id number] CC: JACKELIN
--- NOTE | 2019-04-26 20:45 | Consultation ---
DATE OF CONSULTATION: 04/26/2019 HISTORY OF PRESENT ILLNESS: The patient is a 73-year-old male with a history of COPD, CAD, prostate cancer, atrial fibrillation was admitted to the hospital for COPD exacerbation. The patient presented with anxiety and has been having difficulty breathing. The patient has also difficulty sleeping. No depressive symptoms noted. PAST PSYCHIATRIC HISTORY: Significant for anxiety disorder. PAST MEDICAL HISTORY: As above. ALLERGIES: No known drug allergies. SUBSTANCE ABUSE HISTORY: There is no known history of illicit drug use or alcohol. MENTAL STATUS EXAMINATION: The patient is alert and oriented times self, place, and situation. Mood is anxious. Affect is constricted. Congruent with mood. Thought process is concrete. Thought content, no suicidal or homicidal ideation. ASSESSMENT: [place] I Anxiety disorder. [place] II Deferred. [place] III As above. [place] IV Low [place] V 20 PLAN: 1. The patient will be continued on current psychotropic medication. 2. Provide the patient with reality orientation and supportive therapy. Ottoniel Hillman M.D. DR: Dawood JOB#: [id number] CC:
[2019-04-27] VITALS (7 sets, daily range): BP systolic 108–155; BP diastolic 59–91
[2019-04-27] MEDS: Piperacillin/Tazobactam 3.375 GM in NS 110 ML IVPB SCH ×3 (01:12→17:15)
[2019-04-27] MEDS: Albuterol/Ipratropium 3ml neb HHN SCH ×5 (02:41→23:31)
[2019-04-27] MEDS: HYDROcodone/Acetamin 5/325 tab ORAL PRN ×3 (04:45→22:18)
[2019-04-27 04:59] LABS: BASOPHILS % (AUTO) 1.1 % (0.0-2.0); EOSINOPHILS % (AUTO) 4.2 % (0.0-3.0); HEMOGLOBIN 12.2 G/DL (14.2-18.0); LYMPHOCYTES % (AUTO) 17.9 % (20.0-45.0); MEAN CORPUSCULAR VOLUME 91 FL (80-99); MONOCYTES % (AUTO) 7.4 % (1.0-10.0); NEUTROPHILS % (AUTO) 69.4 % (45.0-75.0); PLATELET COUNT 167 K/UL (150-450); RED BLOOD COUNT 4.05 M/UL (4.70-6.10); RED CELL DISTRIBUTION WIDTH 14.5 % (11.6-14.8); WHITE BLOOD COUNT 8.2 K/UL (4.8-10.8)
[2019-04-27 05:03] LABS: ANION GAP 3 mmol/L (5-15); BLOOD UREA NITROGEN 17 mg/dL (7-18); CALCIUM 8.9 MG/DL (8.5-10.1); CARBON DIOXIDE 34 MMOL/L (21-32); CHLORIDE 103 MMOL/L (98-107); CREATININE 1.2 MG/DL (0.55-1.30); POTASSIUM 4.4 MMOL/L (3.5-5.1); SODIUM 140 MMOL/L (136-145)
[2019-04-27] MEDS: NovoLOG Insulin Flexpen SUBQ SCH ×7 (05:53→21:00)
--- NOTE | 2019-04-27 07:00 | General Progress Note ---
Assessment/Plan Problem List: (1) COPD exacerbation ICD Codes: J44.1 - Chronic obstructive pulmonary disease with (acute) exacerbation SNOMED: 913039596 (2) Respiratory failure with hypoxia ICD Codes: J96.91 - Respiratory failure, unspecified with hypoxia SNOMED: 68389685553890824 (3) Diabetes mellitus ICD Codes: E11.9 - Type 2 diabetes mellitus without complications SNOMED: 13732559 (4) Pacemaker ICD Codes: Z95.0 - Presence of cardiac pacemaker SNOMED: 612593818 (5) Prostate cancer ICD Codes: C61 - Malignant neoplasm of prostate SNOMED: 467465233 (6) Hypothyroid ICD Codes: E03.9 - Hypothyroidism, unspecified SNOMED: 17267071 Status: not improved, unchanged Assessment/Plan: continue Levemir 16 units qhs continue Novolog 10 units ac tid continue NISS ac / hs continue Levothyroxine 175 mcg qam repeat thyroid function in 3 weeks Subjective Allergies: Coded Allergies: No Known Allergies (Unverified , 10/24/16) All Systems: reviewed and negative except above Subjective events noted relatively fair glycemic control without hypoglycemia Levothyroxine dosage increased from 150 to 175 mcg due to elevated TSH Item Value Date Time Bedside Blood Glucose 194 mg/dl H 04/27/19 0630 Bedside Blood Glucose 179 mg/dl H 04/26/19 2100 Bedside Blood Glucose 145 mg/dl H 04/26/19 1715 Bedside Blood Glucose 228 mg/dl H 04/26/19 1147 Bedside Blood Glucose 214 mg/dl H 04/26/19 0850 Bedside Blood Glucose 215 mg/dl H 04/26/19 0630 Objective Last 24 Hour Vital Signs Date Time Temp Pulse Resp B/P (MAP) Pulse Ox O2 Delivery O2 Flow Rate FiO2 04/27/19 05:15 98.2 04/27/19 04:00 79 04/27/19 04:00 98.0 71 24 115/82 (93) 95 04/27/19 04:00 Nasal Cannula 5.0 04/27/19 02:41 73 20 98 Nasal Cannula 2.0 28 70 18 91 04/27/19 00:00 71 04/27/19 00:00 98.2 70 20 125/79 (94) 90 04/27/19 00:00 Nasal Cannula 5.0 04/26/19 22:50 76 20 96 Nasal Cannula 2.0 28 71 18 91 04/26/19 20:22 68 112/78 04/26/19 20:00 Nasal Cannula 5.0 04/26/19 20:00 97.8 72 19 112/78 (89) 94 04/26/19 19:03 71 04/26/19 18:56 92 Nasal Cannula 4.0 36 04/26/19 18:56 81 19 92 Nasal Cannula 2.0 28 78 18 88 04/26/19 16:00 Nasal Cannula 5.0 04/26/19 16:00 97.7 72 15 114/83 (93) 92 04/26/19 16:00 71 04/26/19 15:02 71 24 94 Nasal Cannula 2.0 28 86 24 89 04/26/19 12:00 97.9 70 14 108/75 (86) 92 04/26/19 12:00 Nasal Cannula 5.0 04/26/19 12:00 70 04/26/19 10:41 71 24 96 Nasal Cannula 4.0 36 69 24 90 04/26/19 08:49 71 126/84 04/26/19 08:00 97.7 71 22 126/84 (98) 92 04/26/19 08:00 70 04/26/19 08:00 Nasal Cannula 5.0 04/26/19 07:54 73 20 95 Nasal Cannula 4.0 36 71 24 92 04/26/19 07:53 92 Nasal Cannula 4.0 36 Intake and Output 04/26/19 04/27/19 19:00 07:00 Intake Total 637.5 ml 500 ml Output Total 800 ml 1000 ml Balance -162.5 ml -500 ml Intake Oral 500 ml 500 ml IV Total 137.5 ml Output Urine Total 800 ml 1000 ml # Voids 1 # Bowel Movements 2 Laboratory Tests 04/27/19 03:20: White Blood Count 8.2, Red Blood Count 4.05L, Hemoglobin 12.2L, Hematocrit 37.0L , Mean Corpuscular Volume 91, Mean Corpuscular Hemoglobin 30.0, Mean Corpuscular Hemoglobin Concent 32.8, Red Cell Distribution Width 14.5, Platelet Count 167, Mean Platelet Volume 7.2, Neutrophils (%) (Auto) 69.4, Lymphocytes (% ) (Auto) 17.9L, Monocytes (%) (Auto) 7.4, Eosinophils (%) (Auto) 4.2H, Basophils (%) (Auto) 1.1, Sodium Level 140, Potassium Level 4.4, Chloride Level 103, Carbon Dioxide Level 34H, Anion Gap 3L, Blood Urea Nitrogen 17, Creatinine 1.2, Estimat Glomerular Filtration Rate > 60, Glucose Level 171H, Calcium Level 8.9 Height (Feet): 6 Height (Inches): 0.00 Weight (Pounds): 191 General Appearance: no apparent distress Neck: normal alignment Cardiovascular: normal rate Respiratory/Chest: decreased breath sounds Abdomen: normal bowel sounds Objective Current Medications Medications (Trade) Dose Ordered Sig/Dejon Route PRN Reason Start Time Stop Time Status Last Admin Dose Admin Acetaminophen (Tylenol) 650 mg Q4H PRN ORAL fever 04/22/19 15:30 05/22/19 15:29 Acetaminophen/ Hydrocodone Bitart ([place] 5/325) 1 tab Q6H PRN ORAL Severe Pain (Pain Scale 7-10) 04/22/19 15:35 04/29/19 15:34 04/27/19 04:45 Albuterol/ Ipratropium (Albuterol/ Ipratropium) 3 ml Q4H PRN HHN Shortness of Breath 04/23/19 09:30 04/28/19 09:29 Albuterol/ Ipratropium (Albuterol/ Ipratropium) 3 ml Q4HRT HHN 04/23/19 11:00 04/28/19 10:59 04/27/19 02:41 Apixaban (Eliquis) 5 mg BID ORAL 04/22/19 18:00 05/09/19 08:59 04/26/19 17:12 Carvedilol (Coreg) 6.25 mg EVERY 12 HOURS ORAL 04/22/19 21:00 05/09/19 08:59 04/26/19 20:22 Clonidine HCl (Catapres Tab) 0.1 mg Q4H PRN ORAL sbp more than 160 04/22/19 15:30 05/22/19 15:29 Clotrimazole (Lotrimin) 1 applic THREE TIMES A DAY TOPIC 04/22/19 18:00 05/20/19 12:59 04/26/19 17:15 Dextrose (Dextrose 50%) 25 ml Q30M PRN IV Hypoglycemia 04/22/19 15:30 05/09/19 07:29 Dextrose (Dextrose 50%) 50 ml Q30M PRN IV Hypoglycemia 04/22/19 15:30 05/09/19 07:29 Escitalopram Oxalate (Lexapro) 10 mg DAILY ORAL 04/27/19 09:00 05/27/19 08:59 Insulin Aspart (NovoLOG) BEFORE MEALS AND HS SUBQ 04/22/19 16:30 05/09/19 13:29 04/27/19 05:53 Insulin Aspart (NovoLOG) 10 units NOVOTIAC SUBQ 04/22/19 16:50 05/10/19 07:29 04/27/19 05:55 Insulin Detemir (Levemir) 16 units BID SUBQ 04/24/19 09:00 05/09/19 20:59 04/26/19 17:15 Levothyroxine Sodium (Synthroid) 75 mcg ACBREAKFAST ORAL 04/27/19 06:30 05/27/19 06:29 04/27/19 05:49 Levothyroxine Sodium (Synthroid) 100 mcg ACBREAKFAST ORAL 04/27/19 06:30 05/09/19 06:29 04/27/19 05:50 Nitroglycerin (Ntg) 0.4 mg Q5M X 3 DOSES PRN SL Prn Chest Pain 04/22/19 15:30 05/08/19 21:29 04/23/19 07:28 Ondansetron HCl (Zofran) 4 mg Q6H PRN IVP Nausea & Vomiting 04/22/19 15:35 05/22/19 15:34 Piperacillin Sod/ Tazobactam Sod 3.375 gm/Sodium Chloride 110 ml @ 27.5 mls/hr Q8H IVPB 04/22/19 18:00 04/28/19 17:59 04/27/19 01:12 Promethazine HCl/ Codeine (Phenergan with Codeine) 5 ml Q6H PRN ORAL cough 04/22/19 15:35 05/22/19 15:34 Tamsulosin HCl (Flomax) 0.4 mg BEDTIME ORAL 04/22/19 21:00 05/09/19 20:59 04/26/19 20:22 Geovanni To MD Apr 27, 2019 06:59
[2019-04-27] MEDS: Carvedilol 6.25mg Tab ORAL SCH ×3 (08:29→21:00)
[2019-04-27] MEDS: Eliquis 5mg tablet ORAL SCH ×2 (08:30→17:10)
[2019-04-27] MEDS: Levemir Flexpen SUBQ SCH (08:31)
--- NOTE | 2019-04-27 11:08 | Pulmonology Progress Note ---
Assessment/Plan Problems: (1) Respiratory failure with hypoxia (2) COPD exacerbation (3) Pneumonia (4) Pacemaker (5) Diabetes mellitus (6) Prostate cancer Assessment/Plan repeat CXR today still short of breath, loud rhonchi abx as per ID sliding scale diabetic diet psych consult appreciated Subjective ROS Limited/Unobtainable: No Constitutional: Reports: no symptoms HEENT: Repors: no symptoms Allergies: Coded Allergies: No Known Allergies (Unverified , 10/24/16) Objective Last 24 Hour Vital Signs Date Time Temp Pulse Resp B/P (MAP) Pulse Ox O2 Delivery O2 Flow Rate FiO2 04/27/19 10:43 73 20 95 Nasal Cannula 2.0 28 70 24 94 04/27/19 08:29 71 116/68 04/27/19 08:00 Nasal Cannula 5.0 04/27/19 08:00 98.1 71 22 116/68 (84) 93 04/27/19 07:02 71 20 96 Nasal Cannula 2.0 28 72 20 92 04/27/19 07:02 92 Nasal Cannula 2.0 28 04/27/19 05:15 98.2 04/27/19 04:00 79 04/27/19 04:00 98.0 71 24 115/82 (93) 95 04/27/19 04:00 Nasal Cannula 5.0 04/27/19 02:41 73 20 98 Nasal Cannula 2.0 28 70 18 91 04/27/19 00:00 71 04/27/19 00:00 98.2 70 20 125/79 (94) 90 04/27/19 00:00 Nasal Cannula 5.0 04/26/19 22:50 76 20 96 Nasal Cannula 2.0 28 71 18 91 04/26/19 20:22 68 112/78 04/26/19 20:00 Nasal Cannula 5.0 04/26/19 20:00 97.8 72 19 112/78 (89) 94 04/26/19 19:03 71 04/26/19 18:56 92 Nasal Cannula 4.0 36 04/26/19 18:56 81 19 92 Nasal Cannula 2.0 28 78 18 88 04/26/19 16:00 Nasal Cannula 5.0 04/26/19 16:00 97.7 72 15 114/83 (93) 92 04/26/19 16:00 71 04/26/19 15:02 71 24 94 Nasal Cannula 2.0 28 86 24 89 04/26/19 12:00 97.9 70 14 108/75 (86) 92 04/26/19 12:00 Nasal Cannula 5.0 04/26/19 12:00 70 Intake and Output 04/26/19 04/27/19 19:00 07:00 Intake Total 637.5 ml 610.0 ml Output Total 800 ml 1000 ml Balance -162.5 ml -390.0 ml Intake Oral 500 ml 500 ml IV Total 137.5 ml 110.0 ml Output Urine Total 800 ml 1000 ml # Voids 1 # Bowel Movements 2 General Appearance: WD/WN HEENT: normocephalic Respiratory/Chest: accessory muscle use, crackles/rales Cardiovascular: normal peripheral pulses, normal rate Abdomen: normal bowel sounds, soft, non tender Neurologic/Psychiatric: plant ecologist II-XII grossly normal Laboratory Tests 04/27/19 03:20: White Blood Count 8.2, Red Blood Count 4.05L, Hemoglobin 12.2L, Hematocrit 37.0L , Mean Corpuscular Volume 91, Mean Corpuscular Hemoglobin 30.0, Mean Corpuscular Hemoglobin Concent 32.8, Red Cell Distribution Width 14.5, Platelet Count 167, Mean Platelet Volume 7.2, Neutrophils (%) (Auto) 69.4, Lymphocytes (% ) (Auto) 17.9L, Monocytes (%) (Auto) 7.4, Eosinophils (%) (Auto) 4.2H, Basophils (%) (Auto) 1.1, Sodium Level 140, Potassium Level 4.4, Chloride Level 103, Carbon Dioxide Level 34H, Anion Gap 3L, Blood Urea Nitrogen 17, Creatinine 1.2, Estimat Glomerular Filtration Rate > 60, Glucose Level 171H, Calcium Level 8.9 Current Medications Medications (Trade) Dose Ordered Sig/Dejon Route PRN Reason Start Time Stop Time Status Last Admin Dose Admin Acetaminophen (Tylenol) 650 mg Q4H PRN ORAL fever 04/22/19 15:30 05/22/19 15:29 04/27/19 09:04 Acetaminophen/ Hydrocodone Bitart ([place] 5/325) 1 tab Q6H PRN ORAL Severe Pain (Pain Scale 7-10) 04/22/19 15:35 04/29/19 15:34 04/27/19 04:45 Albuterol/ Ipratropium (Albuterol/ Ipratropium) 3 ml Q4H PRN HHN Shortness of Breath 04/23/19 09:30 04/28/19 09:29 Albuterol/ Ipratropium (Albuterol/ Ipratropium) 3 ml Q4HRT HHN 04/23/19 11:00 04/28/19 10:59 04/27/19 10:49 Apixaban (Eliquis) 5 mg BID ORAL 04/22/19 18:00 05/09/19 08:59 04/27/19 08:30 Carvedilol (Coreg) 6.25 mg EVERY 12 HOURS ORAL 04/22/19 21:00 05/09/19 08:59 04/27/19 08:29 Clonidine HCl (Catapres Tab) 0.1 mg Q4H PRN ORAL sbp more than 160 04/22/19 15:30 05/22/19 15:29 Clotrimazole (Lotrimin) 1 applic THREE TIMES A DAY TOPIC 04/22/19 18:00 05/20/19 12:59 04/27/19 08:30 Dextrose (Dextrose 50%) 25 ml Q30M PRN IV Hypoglycemia 04/22/19 15:30 05/09/19 07:29 Dextrose (Dextrose 50%) 50 ml Q30M PRN IV Hypoglycemia 04/22/19 15:30 05/09/19 07:29 Escitalopram Oxalate (Lexapro) 10 mg DAILY ORAL 04/27/19 09:00 05/27/19 08:59 04/27/19 08:29 Insulin Aspart (NovoLOG) BEFORE MEALS AND HS SUBQ 04/22/19 16:30 05/09/19 13:29 04/27/19 05:53 Insulin Aspart (NovoLOG) 10 units NOVOTIAC SUBQ 04/22/19 16:50 05/10/19 07:29 04/27/19 05:55 Insulin Detemir (Levemir) 16 units BID SUBQ 04/24/19 09:00 05/09/19 20:59 04/27/19 08:31 Levothyroxine Sodium (Synthroid) 75 mcg ACBREAKFAST ORAL 04/27/19 06:30 05/27/19 06:29 04/27/19 05:49 Levothyroxine Sodium (Synthroid) 100 mcg ACBREAKFAST ORAL 04/27/19 06:30 05/09/19 06:29 04/27/19 05:50 Nitroglycerin (Ntg) 0.4 mg Q5M X 3 DOSES PRN SL Prn Chest Pain 04/22/19 15:30 05/08/19 21:29 04/23/19 07:28 Ondansetron HCl (Zofran) 4 mg Q6H PRN IVP Nausea & Vomiting 04/22/19 15:35 05/22/19 15:34 Piperacillin Sod/ Tazobactam Sod 3.375 gm/Sodium Chloride 110 ml @ 27.5 mls/hr Q8H IVPB 04/22/19 18:00 04/28/19 17:59 04/27/19 09:03 Promethazine HCl/ Codeine (Phenergan with Codeine) 5 ml Q6H PRN ORAL cough 04/22/19 15:35 05/22/19 15:34 Tamsulosin HCl (Flomax) 0.4 mg BEDTIME ORAL 04/22/19 21:00 05/09/19 20:59 04/26/19 20:22 Goldie Obrien MD Apr 27, 2019 11:08
--- NOTE | 2019-04-27 11:50 | Infectious Diseases Prog Note ---
Assessment/Plan Assessment/Plan Assessment: Acute hypoxic respiratory failure s/p bipap, now at [place] COPD exacerbation CHF exacerbation PNA -04/21 CTA chest:Somewhat limited exam, due to motion artifact. No definite evidence of pulmonary embolus or other acute thoracic vascular pathology. Borderline cardiomegaly. Diffuse bilateral pulmonary parenchymal groundglass opacity. Interspersed small bullae digestive this is due to COPD changes, but could also indicate a component of pulmonary edema. Considerable consolidation in the right lower lobe, likely pneumonia. Less extensive consolidation and atelectasis is seen at the left lung base. Pacemaker, degenerative spondylosis incidentally noted sp cx normal resp michael -04/19 CXR: Mild pulmonary vascular congestion -04/16 CXR: No acute disease -04/13 CXR: Suspected mild pulmonary vascular congestion. Correlate clinically -04/08 CXR: Mild pulmonary vascular congestion suspected Afebrile Leukocytosis,(s/p high dose steroids), SP KAYLAN, improving Hyperglycemia COPD CAD CHF prostate cancer s/p PPM former smoker Plan: -Cont empiric Zosyn #7/7 for PNA -04/15 SP Levaquin #7 -04/08 SP Ceftriaxone x1, Azithromycin x1 -Monitor CBC/CMP, temperatures -aspiration precautions Thank you for this consultation. Will continue to follow along with you. Subjective Allergies: Coded Allergies: No Known Allergies (Unverified , 10/24/16) Subjective afebrile no leukocytosis at 2l [place] Objective Vital Signs Last 24 Hour Vital Signs Date Time Temp Pulse Resp B/P (MAP) Pulse Ox O2 Delivery O2 Flow Rate FiO2 04/27/19 10:43 73 20 95 Nasal Cannula 2.0 28 70 24 94 04/27/19 08:29 71 116/68 04/27/19 08:00 Nasal Cannula 5.0 04/27/19 08:00 98.1 71 22 116/68 (84) 93 04/27/19 07:02 71 20 96 Nasal Cannula 2.0 28 72 20 92 04/27/19 07:02 92 Nasal Cannula 2.0 28 04/27/19 05:15 98.2 04/27/19 04:00 79 04/27/19 04:00 98.0 71 24 115/82 (93) 95 04/27/19 04:00 Nasal Cannula 5.0 04/27/19 02:41 73 20 98 Nasal Cannula 2.0 28 70 18 91 04/27/19 00:00 71 04/27/19 00:00 98.2 70 20 125/79 (94) 90 04/27/19 00:00 Nasal Cannula 5.0 04/26/19 22:50 76 20 96 Nasal Cannula 2.0 28 71 18 91 04/26/19 20:22 68 112/78 04/26/19 20:00 Nasal Cannula 5.0 04/26/19 20:00 97.8 72 19 112/78 (89) 94 04/26/19 19:03 71 04/26/19 18:56 92 Nasal Cannula 4.0 36 04/26/19 18:56 81 19 92 Nasal Cannula 2.0 28 78 18 88 04/26/19 16:00 Nasal Cannula 5.0 04/26/19 16:00 97.7 72 15 114/83 (93) 92 04/26/19 16:00 71 04/26/19 15:02 71 24 94 Nasal Cannula 2.0 28 86 24 89 04/26/19 12:00 97.9 70 14 108/75 (86) 92 04/26/19 12:00 Nasal Cannula 5.0 04/26/19 12:00 70 Height (Feet): 6 Height (Inches): 0.00 Weight (Pounds): 191 Objective General Appearance: no distress HEENT: normocephalic, atraumatic Neck: supple Respiratory/Chest: chest wall non-tender, bibasilar ronchi Cardiovascular/Chest: no murmurs Extremities: normal range of motion Laboratory Tests Test 04/27/19 03:20 White Blood Count 8.2 K/UL (4.8-10.8) Red Blood Count 4.05 M/UL (4.70-6.10) L Hemoglobin 12.2 G/DL (14.2-18.0) L Hematocrit 37.0 % (42.0-52.0) L Mean Corpuscular Volume 91 FL (80-99) Mean Corpuscular Hemoglobin 30.0 PG (27.0-31.0) Mean Corpuscular Hemoglobin Concent 32.8 G/DL (32.0-36.0) Red Cell Distribution Width 14.5 % (11.6-14.8) Platelet Count 167 K/UL (150-450) Mean Platelet Volume 7.2 FL (6.5-10.1) Neutrophils (%) (Auto) 69.4 % (45.0-75.0) Lymphocytes (%) (Auto) 17.9 % (20.0-45.0) L Monocytes (%) (Auto) 7.4 % (1.0-10.0) Eosinophils (%) (Auto) 4.2 % (0.0-3.0) H Basophils (%) (Auto) 1.1 % (0.0-2.0) Sodium Level 140 MMOL/L (136-145) Potassium Level 4.4 MMOL/L (3.5-5.1) Chloride Level 103 MMOL/L (98-107) Carbon Dioxide Level 34 MMOL/L (21-32) H Anion Gap 3 mmol/L (5-15) L Blood Urea Nitrogen 17 mg/dL (7-18) Creatinine 1.2 MG/DL (0.55-1.30) Estimat Glomerular Filtration Rate > 60 mL/min (>60) Glucose Level 171 MG/DL (74-106) H Calcium Level 8.9 MG/DL (8.5-10.1) Pro-B-Type Natriuretic Peptide Pending Current Medications Medications (Trade) Dose Ordered Sig/Dejon Route PRN Reason Start Time Stop Time Status Last Admin Dose Admin Acetaminophen (Tylenol) 650 mg Q4H PRN ORAL fever 04/22/19 15:30 05/22/19 15:29 04/27/19 09:04 Acetaminophen/ Hydrocodone Bitart ([place] 5/325) 1 tab Q6H PRN ORAL Severe Pain (Pain Scale 7-10) 04/22/19 15:35 04/29/19 15:34 04/27/19 04:45 Albuterol/ Ipratropium (Albuterol/ Ipratropium) 3 ml Q4H PRN HHN Shortness of Breath 04/23/19 09:30 04/28/19 09:29 Albuterol/ Ipratropium (Albuterol/ Ipratropium) 3 ml Q4HRT HHN 04/23/19 11:00 04/28/19 10:59 04/27/19 10:49 Apixaban (Eliquis) 5 mg BID ORAL 04/22/19 18:00 05/09/19 08:59 04/27/19 08:30 Carvedilol (Coreg) 6.25 mg EVERY 12 HOURS ORAL 04/22/19 21:00 05/09/19 08:59 04/27/19 08:29 Clonidine HCl (Catapres Tab) 0.1 mg Q4H PRN ORAL sbp more than 160 04/22/19 15:30 05/22/19 15:29 Clotrimazole (Lotrimin) 1 applic THREE TIMES A DAY TOPIC 04/22/19 18:00 05/20/19 12:59 04/27/19 08:30 Dextrose (Dextrose 50%) 25 ml Q30M PRN IV Hypoglycemia 04/22/19 15:30 05/09/19 07:29 Dextrose (Dextrose 50%) 50 ml Q30M PRN IV Hypoglycemia 04/22/19 15:30 05/09/19 07:29 Escitalopram Oxalate (Lexapro) 10 mg DAILY ORAL 04/27/19 09:00 05/27/19 08:59 04/27/19 08:29 Insulin Aspart (NovoLOG) BEFORE MEALS AND HS SUBQ 04/22/19 16:30 05/09/19 13:29 04/27/19 05:53 Insulin Aspart (NovoLOG) 10 units NOVOTIAC SUBQ 04/22/19 16:50 05/10/19 07:29 04/27/19 05:55 Insulin Detemir (Levemir) 16 units BID SUBQ 04/24/19 09:00 05/09/19 20:59 04/27/19 08:31 Levothyroxine Sodium (Synthroid) 75 mcg ACBREAKFAST ORAL 04/27/19 06:30 05/27/19 06:29 04/27/19 05:49 Levothyroxine Sodium (Synthroid) 100 mcg ACBREAKFAST ORAL 04/27/19 06:30 05/09/19 06:29 04/27/19 05:50 Nitroglycerin (Ntg) 0.4 mg Q5M X 3 DOSES PRN SL Prn Chest Pain 04/22/19 15:30 05/08/19 21:29 04/23/19 07:28 Ondansetron HCl (Zofran) 4 mg Q6H PRN IVP Nausea & Vomiting 04/22/19 15:35 05/22/19 15:34 Piperacillin Sod/ Tazobactam Sod 3.375 gm/Sodium Chloride 110 ml @ 27.5 mls/hr Q8H IVPB 04/22/19 18:00 04/28/19 17:59 04/27/19 09:03 Promethazine HCl/ Codeine (Phenergan with Codeine) 5 ml Q6H PRN ORAL cough 04/22/19 15:35 05/22/19 15:34 Tamsulosin HCl (Flomax) 0.4 mg BEDTIME ORAL 04/22/19 21:00 05/09/19 20:59 04/26/19 20:22 An Villa M.D. Apr 27, 2019 11:50
--- NOTE | 2019-04-27 13:09 | Cardiology Progress Note ---
Assessment/Plan Assessment/Plan 1. COPD with exacerbation. 2. History of hypothyroidism, status post thyroidectomy for thyroid cancer. 3. History of prostate cancer, indwelling [place] catheter. 4. History of recurrent urinary tract infections. 5. SSS s/p pacer 6. flutter troop neg tele reviewed labs noted still with sob adn wheezing on eliqusi for stroke prevention Subjective Cardiovascular: Denies: chest pain, palpitations Respiratory: Reports: cough, shortness of breath, SOB with excertion, wheezing Gastrointestinal/Abdominal: Reports: abdominal pain Genitourinary: Denies: burning Objective Last 24 Hour Vital Signs Date Time Temp Pulse Resp B/P (MAP) Pulse Ox O2 Delivery O2 Flow Rate FiO2 04/27/19 12:00 97.0 70 16 108/69 (82) 93 04/27/19 12:00 Nasal Cannula 5.0 04/27/19 10:43 73 20 95 Nasal Cannula 2.0 28 70 24 94 04/27/19 08:29 71 116/68 04/27/19 08:00 Nasal Cannula 5.0 04/27/19 08:00 98.1 71 22 116/68 (84) 93 04/27/19 07:02 71 20 96 Nasal Cannula 2.0 28 72 20 92 04/27/19 07:02 92 Nasal Cannula 2.0 28 04/27/19 05:15 98.2 04/27/19 04:00 79 04/27/19 04:00 98.0 71 24 115/82 (93) 95 04/27/19 04:00 Nasal Cannula 5.0 04/27/19 02:41 73 20 98 Nasal Cannula 2.0 28 70 18 91 04/27/19 00:00 71 04/27/19 00:00 98.2 70 20 125/79 (94) 90 04/27/19 00:00 Nasal Cannula 5.0 04/26/19 22:50 76 20 96 Nasal Cannula 2.0 28 71 18 91 04/26/19 20:22 68 112/78 04/26/19 20:00 Nasal Cannula 5.0 04/26/19 20:00 97.8 72 19 112/78 (89) 94 04/26/19 19:03 71 04/26/19 18:56 92 Nasal Cannula 4.0 36 04/26/19 18:56 81 19 92 Nasal Cannula 2.0 28 78 18 88 2/17/20 16:00 Nasal Cannula 5.0 04/26/19 16:00 97.7 72 15 114/83 (93) 92 04/26/19 16:00 71 04/26/19 15:02 71 24 94 Nasal Cannula 2.0 28 86 24 89 General Appearance: no apparent distress, alert Cardiovascular: normal rate Respiratory/Chest: expiratory wheezing, inspiratory wheezing Abdomen: normal bowel sounds, non tender, soft Extremities: no swelling Intake and Output 04/26/19 04/27/19 19:00 07:00 Intake Total 637.5 ml 610.0 ml Output Total 800 ml 1000 ml Balance -162.5 ml -390.0 ml Intake Oral 500 ml 500 ml IV Total 137.5 ml 110.0 ml Output Urine Total 800 ml 1000 ml # Voids 1 # Bowel Movements 2 Laboratory Tests Test 04/27/19 03:20 White Blood Count 8.2 K/UL (4.8-10.8) Red Blood Count 4.05 M/UL (4.70-6.10) L Hemoglobin 12.2 G/DL (14.2-18.0) L Hematocrit 37.0 % (42.0-52.0) L Mean Corpuscular Volume 91 FL (80-99) Mean Corpuscular Hemoglobin 30.0 PG (27.0-31.0) Mean Corpuscular Hemoglobin Concent 32.8 G/DL (32.0-36.0) Red Cell Distribution Width 14.5 % (11.6-14.8) Platelet Count 167 K/UL (150-450) Mean Platelet Volume 7.2 FL (6.5-10.1) Neutrophils (%) (Auto) 69.4 % (45.0-75.0) Lymphocytes (%) (Auto) 17.9 % (20.0-45.0) L Monocytes (%) (Auto) 7.4 % (1.0-10.0) Eosinophils (%) (Auto) 4.2 % (0.0-3.0) H Basophils (%) (Auto) 1.1 % (0.0-2.0) Sodium Level 140 MMOL/L (136-145) Potassium Level 4.4 MMOL/L (3.5-5.1) Chloride Level 103 MMOL/L (98-107) Carbon Dioxide Level 34 MMOL/L (21-32) H Anion Gap 3 mmol/L (5-15) L Blood Urea Nitrogen 17 mg/dL (7-18) Creatinine 1.2 MG/DL (0.55-1.30) Estimat Glomerular Filtration Rate > 60 mL/min (>60) Glucose Level 171 MG/DL (74-106) H Calcium Level 8.9 MG/DL (8.5-10.1) Pro-B-Type Natriuretic Peptide 622 pg/mL (0-125) H Chemo Esquivel MD Apr 27, 2019 13:09
--- NOTE | 2019-04-27 14:45 | Diagnostic Imaging Report ---
Indication: Shortness of Technique: One view of the chest Comparison: 04/22/2019 Findings: Inspiration is suboptimal. There is some atelectasis at the left lung base. There is questionable mild diffuse interstitial congestion, appearing new or slightly increased from previous exam. The heart size is borderline enlarged. There is a left chest unifocal pacemaker Impression: Borderline cardiomegaly Questionable mild interstitial congestion, new or increased from previous study if real
[2019-04-27] MEDS ORDERED: Albuterol/Ipratropium 3ml neb HHN PRN (15:44)
[2019-04-27] MEDS ORDERED: Nitroglycerin Subl 0.4mg tab SL PRN (15:45)
[2019-04-27] MEDS ORDERED: Promethazine/Codeine 5ml UD ORAL PRN (15:46)
[2019-04-27] MEDS ORDERED: Oxymetazoline 0.05% Na Spray 30ml NASAL PRN (17:00)
--- NOTE | 2019-04-27 17:00 | Geriatric Medicine Prog Note ---
DATE: 04/23/2019 ENDOCRINOLOGY PROGRESS NOTE SUBJECTIVE: The patient is stable today OBJECTIVE: VITAL SIGNS: Blood pressure 137/67, pulse 70, respiratory rate 20, and temperature 98. LUNGS: Clear. INV:Glucose 147 ASSESSMENT:Diabetes Mellitus Type 2 controlled PLANS:Accucchecks QID ac and HS with moderate sliding scale Novolog QID ac and hs Rosendo Lopez M.D. DR: NAKITA JOB#: [id number] CC: JACKELIN
--- NOTE | 2019-04-27 17:00 | Geriatric Medicine Prog Note ---
DATE: 04/24/2019 NOTE: POOR AUDIO SUBJECTIVE: The patient is comfortable today. OBJECTIVE: VITAL SIGNS: Stable. LUNGS: Clear. LABORATORY DATA: Glucose 275. ASSESSMENT:Diabetes Mellitus in fair control PLANS:Levemir 10 units q.12 h.sc and Lispro 10 units t.i.d. before meals. Rosendo Lopez M.D. DR: NAKITA JOB#: [id number] CC: JACKELIN
--- NOTE | 2019-04-27 17:00 | Geriatric Medicine Prog Note ---
DATE: 04/25/2019 SUBJECTIVE: The patient is comfortable. OBJECTIVE: Vital signs stable. RSSP:Clear,[facility] INV:Glucose 175 mg% ASSESSMENT:Diabetes Mellitus in fair control PLANS: Continue Levemir 15 units sc b.i.d.with 10 units, NovoLog t.i.d. sc ac. Rosendo Lopez M.D. DR: NAKITA JOB#: [id number] CC: JACKELIN
[2019-04-27] MEDS ORDERED: Levemir Flexpen SUBQ SCH (18:00)
--- NOTE | 2019-04-27 18:45 | Progress Note ---
DATE: 04/27/2019 SUBJECTIVE: The patient is in bed. He is asleep, arousable. He was very angry and snapped at staff. The patient is easily agitated. Poor insight. Compliant with medication. MENTAL STATUS EXAMINATION: The patient is alert, oriented times self, place. Mood is irritable. Affect is constricted, congruent with mood. Thought process is concrete. Thought content, no suicidal or homicidal ideation noted. Cognition is impaired. Insight and judgment is impaired. ASSESSMENT: 1. Major depressive disorder. 2. Anxiety disorder. PLAN: 1. Lexapro 10 mg p.o. every morning. 2. Continue the Ativan p.r.n. 3. We will continue to follow and readjust the medications. Discussed with the nurse. Ottoniel Hillman M.D. DR: AMAURY JOB#: [id number] CC:
--- NOTE | 2019-04-27 19:34 | Internal Med Progress Note ---
Subjective Date of Service: Apr 27, 2019 Physician Name LugoIdris Attending Physician Jewel Giraldo MD Current Medications Medications (Trade) Dose Ordered Sig/Dejon Route PRN Reason Start Time Stop Time Status Last Admin Dose Admin Acetaminophen (Tylenol) 650 mg Q4H PRN ORAL fever 04/27/19 15:43 05/27/19 15:42 Acetaminophen/ Hydrocodone Bitart ([place] 5/325) 1 tab Q6H PRN ORAL Severe Pain (Pain Scale 7-10) 04/27/19 15:45 05/04/19 15:44 Albuterol/ Ipratropium (Albuterol/ Ipratropium) 3 ml Q4H PRN HHN Shortness of Breath 04/27/19 15:44 05/02/19 15:43 Albuterol/ Ipratropium (Albuterol/ Ipratropium) 3 ml Q4HRT HHN 04/27/19 19:00 04/28/19 10:59 04/27/19 18:38 Apixaban (Eliquis) 5 mg BID ORAL 04/27/19 18:00 05/09/19 08:59 04/27/19 17:10 Carvedilol (Coreg) 6.25 mg EVERY 12 HOURS ORAL 04/27/19 21:00 05/09/19 08:59 Clonidine HCl (Catapres Tab) 0.1 mg Q4H PRN ORAL sbp more than 160 04/27/19 15:43 05/27/19 15:42 Clotrimazole (Lotrimin) 1 applic THREE TIMES A DAY TOPIC 04/27/19 18:00 05/20/19 12:59 04/27/19 17:30 Dextrose (Dextrose 50%) 25 ml Q30M PRN IV Hypoglycemia 04/27/19 16:00 05/09/19 07:29 Dextrose (Dextrose 50%) 50 ml Q30M PRN IV Hypoglycemia 04/27/19 16:00 05/09/19 07:29 Escitalopram Oxalate (Lexapro) 10 mg DAILY ORAL 04/28/19 09:00 05/27/19 08:59 Insulin Aspart (NovoLOG) BEFORE MEALS AND HS SUBQ 04/27/19 16:30 05/09/19 13:29 04/27/19 17:11 Insulin Aspart (NovoLOG) 10 units NOVOTIAC SUBQ 04/27/19 16:50 05/10/19 07:29 04/27/19 17:11 Insulin Detemir (Levemir) 16 units BID SUBQ 04/27/19 18:00 05/09/19 20:59 04/27/19 17:11 Levothyroxine Sodium (Synthroid) 75 mcg ACBREAKFAST ORAL 04/28/19 06:30 05/27/19 06:29 Levothyroxine Sodium (Synthroid) 100 mcg ACBREAKFAST ORAL 04/28/19 06:30 05/09/19 06:29 Nitroglycerin (Ntg) 0.4 mg Q5M X 3 DOSES PRN SL Prn Chest Pain 04/27/19 15:45 05/08/19 21:29 Ondansetron HCl (Zofran) 4 mg Q6H PRN IVP Nausea & Vomiting 04/27/19 15:46 05/27/19 15:45 Oxymetazoline HCl (Afrin Nasal [place]) 1 spray Q6H PRN NASAL nasal congestion 04/27/19 17:00 05/27/19 16:59 Piperacillin Sod/ Tazobactam Sod 3.375 gm/Sodium Chloride 110 ml @ 27.5 mls/hr Q8H IVPB 04/27/19 18:00 04/28/19 17:59 04/27/19 17:15 Promethazine HCl/ Codeine (Phenergan with Codeine) 5 ml Q6H PRN ORAL cough 04/27/19 15:46 05/27/19 15:45 Tamsulosin HCl (Flomax) 0.4 mg BEDTIME ORAL 04/27/19 21:00 05/09/19 20:59 Allergies: Coded Allergies: No Known Allergies (Unverified , 10/24/16) ROS Limited/Unobtainable: No Constitutional: Reports: no symptoms HEENT: Reports: no symptoms Cardiovascular: Reports: no symptoms Respiratory: Reports: shortness of breath Gastrointestinal/Abdominal: Reports: no symptoms Genitourinary: Reports: no symptoms Neurologic/Psychiatric: Reports: no symptoms Subjective 73 YO M admitted with COPD exacerbation. Now respiratory failure and pneumonia. Cover for Int Bubba-DR Giraldo Objective Last Vital Signs Date Time Temp Pulse Resp B/P (MAP) Pulse Ox O2 Delivery O2 Flow Rate FiO2 04/27/19 18:39 90 Nasal Cannula 2.0 28 04/27/19 18:39 80 20 72 16 04/27/19 15:50 98.2 155/91 (112) Laboratory Tests Test 04/27/19 03:20 White Blood Count 8.2 K/UL (4.8-10.8) Red Blood Count 4.05 M/UL (4.70-6.10) L Hemoglobin 12.2 G/DL (14.2-18.0) L Hematocrit 37.0 % (42.0-52.0) L Mean Corpuscular Volume 91 FL (80-99) Mean Corpuscular Hemoglobin 30.0 PG (27.0-31.0) Mean Corpuscular Hemoglobin Concent 32.8 G/DL (32.0-36.0) Red Cell Distribution Width 14.5 % (11.6-14.8) Platelet Count 167 K/UL (150-450) Mean Platelet Volume 7.2 FL (6.5-10.1) Neutrophils (%) (Auto) 69.4 % (45.0-75.0) Lymphocytes (%) (Auto) 17.9 % (20.0-45.0) L Monocytes (%) (Auto) 7.4 % (1.0-10.0) Eosinophils (%) (Auto) 4.2 % (0.0-3.0) H Basophils (%) (Auto) 1.1 % (0.0-2.0) Sodium Level 140 MMOL/L (136-145) Potassium Level 4.4 MMOL/L (3.5-5.1) Chloride Level 103 MMOL/L (98-107) Carbon Dioxide Level 34 MMOL/L (21-32) H Anion Gap 3 mmol/L (5-15) L Blood Urea Nitrogen 17 mg/dL (7-18) Creatinine 1.2 MG/DL (0.55-1.30) Estimat Glomerular Filtration Rate > 60 mL/min (>60) Glucose Level 171 MG/DL (74-106) H Calcium Level 8.9 MG/DL (8.5-10.1) Pro-B-Type Natriuretic Peptide 622 pg/mL (0-125) H Intake and Output 04/26/19 04/27/19 19:00 07:00 Intake Total 637.5 ml 610.0 ml Output Total 800 ml 1000 ml Balance -162.5 ml -390.0 ml Intake Oral 500 ml 500 ml IV Total 137.5 ml 110.0 ml Output Urine Total 800 ml 1000 ml # Voids 1 # Bowel Movements 2 Objective PHYSICAL EXAMINATION: GENERAL: The patient is awake, responsive, no acute distress. HEAD AND NECK: Pupils are equal and reactive to light. Extraocular muscles intact. Neck was supple. No JVD. LUNGS: BIPAP;The patient has expiratory wheezes noted. Tachypneic. No rhonchi was noted. HEART: S1, S2. Irregular. No murmur. The patient has a pacemaker in the left-sided chest wall. ABDOMEN: Soft, nondistended, nontender. Mildly obese. EXTREMITIES: No cyanosis, clubbing, edema. NEUROLOGIC: Cranial nerves II through XII grossly normal. Motor is 5/5 in all extremities. Gait is intact. GENITOURINARY: It was noted the patient has a Montgomery catheter. RECTAL: Refused and deferred. PSYCHIATRIC: Mood and affect is intact. Assessment/Plan Assessment/Plan ASSESSMENT: 1. Acute hypoxemic respiratory failure, most likely secondary to acute COPD exacerbation. 2. Acute COPD exacerbation. 3. Pneumonia. 4. Sick sinus syndrome status post pacemaker. 5. Diabetes type 2. 6. Prostate cancer. 7. Hyperkalemia. 8. Insulin induced hyperglycemia. 9. Prostate enlargement. 10. Leukocytosis 11. RBBB PLAN: 1. CALVIN 2. D/C Solu-Medrol IV Per Pulmonary consult=Dr. Obrien. 3. Endocrinology=Dr To. Monitor blood glucose level closely. 4. antibiotic=Zosyn. ID=Dr Beckham 5. Code status is Full Code. DVT prophylaxis, he is on Eliquis. Idris Lugo MD Apr 27, 2019 19:34
[2019-04-27] MEDS: Tamsulosin 0.4mg cap ORAL SCH ×2 (20:19→21:00)
[2019-04-28] MEDS: Piperacillin/Tazobactam 3.375 GM in NS 110 ML IVPB SCH ×2 (02:07→10:59)
[2019-04-28] MEDS: Albuterol/Ipratropium 3ml neb HHN SCH ×3 (02:51→10:50)
[2019-04-28] MEDS: NovoLOG Insulin Flexpen SUBQ SCH ×8 (06:30→21:06)
[2019-04-28] MEDS: HYDROcodone/Acetamin 5/325 tab ORAL PRN ×2 (06:31→20:55)
--- NOTE | 2019-04-28 06:51 | General Progress Note ---
Assessment/Plan Problem List: (1) COPD exacerbation ICD Codes: J44.1 - Chronic obstructive pulmonary disease with (acute) exacerbation SNOMED: 043733001 (2) Respiratory failure with hypoxia ICD Codes: J96.91 - Respiratory failure, unspecified with hypoxia SNOMED: 90125331549028123 (3) Diabetes mellitus ICD Codes: E11.9 - Type 2 diabetes mellitus without complications SNOMED: 39074441 (4) Pacemaker ICD Codes: Z95.0 - Presence of cardiac pacemaker SNOMED: 607382217 (5) Prostate cancer ICD Codes: C61 - Malignant neoplasm of prostate SNOMED: 890737088 (6) Hypothyroid ICD Codes: E03.9 - Hypothyroidism, unspecified SNOMED: 62415253 Status: not improved, unchanged Assessment/Plan: change Levemir 16 units bid to qhs continue Novolog 10 units ac tid continue NISS ac / hs continue Levothyroxine 175 mcg qam repeat thyroid function in 3 weeks Subjective Allergies: Coded Allergies: No Known Allergies (Unverified , 10/24/16) All Systems: reviewed and negative except above Subjective events noted glucose values trending down without hypoglycemia Item Value Date Time Bedside Blood Glucose 118 mg/dl 04/28/19 0644 Bedside Blood Glucose 96 mg/dl 04/27/19 2230 Bedside Blood Glucose 161 mg/dl H 04/27/19 1711 Bedside Blood Glucose 220 mg/dl H 04/27/19 0831 Bedside Blood Glucose 194 mg/dl H 04/27/19 0630 Objective Last 24 Hour Vital Signs Date Time Temp Pulse Resp B/P (MAP) Pulse Ox O2 Delivery O2 Flow Rate FiO2 04/28/19 02:51 74 18 95 Nasal Cannula 2.0 28 70 18 90 04/27/19 23:38 98.1 81 20 137/64 (88) 90 04/27/19 23:33 80 19 96 Nasal Cannula 2.0 28 79 18 88 04/27/19 21:00 74 143/59 04/27/19 21:00 Nasal Cannula 4.0 04/27/19 20:00 98.3 74 21 143/59 (87) 90 04/27/19 18:39 90 Nasal Cannula 2.0 28 04/27/19 18:39 80 20 95 Nasal Cannula 2.0 28 72 16 87 04/27/19 17:12 63 24 92 Nasal Cannula 2.0 28 04/27/19 16:00 Nasal Cannula 5.0 04/27/19 15:50 98.2 90 16 155/91 (112) 93 04/27/19 15:39 87 20 96 Nasal Cannula 2.0 28 84 24 92 04/27/19 12:00 97.0 70 16 108/69 (82) 93 04/27/19 12:00 Nasal Cannula 5.0 04/27/19 10:43 73 20 95 Nasal Cannula 2.0 28 70 24 94 04/27/19 08:29 71 116/68 04/27/19 08:00 Nasal Cannula 5.0 04/27/19 08:00 98.1 71 22 116/68 (84) 93 04/27/19 07:02 71 20 96 Nasal Cannula 2.0 28 72 20 92 04/27/19 07:02 92 Nasal Cannula 2.0 28 Intake and Output 04/27/19 04/28/19 19:00 07:00 Intake Total 610.0 ml 480 ml Output Total 500 ml 900 ml Balance 110.0 ml -420 ml Intake Oral 500 ml 480 ml IV Total 110.0 ml Output Urine Total 500 ml 900 ml # Voids 1 # Bowel Movements 1 Laboratory Tests 04/28/19 05:20: White Blood Count [Pending], Red Blood Count [Pending], Hemoglobin [Pending], Hematocrit [Pending], Mean Corpuscular Volume [Pending], Mean Corpuscular Hemoglobin [Pending], Mean Corpuscular Hemoglobin Concent [Pending], Red Cell Distribution Width [Pending], Platelet Count [Pending], Mean Platelet Volume [ Pending], Neutrophils (%) (Auto) [Pending], Lymphocytes (%) (Auto) [Pending], Monocytes (%) (Auto) [Pending], Eosinophils (%) (Auto) [Pending], Basophils (%) (Auto) [Pending], Erythrocyte Sedimentation Rate [Pending], Sodium Level [ Pending], Potassium Level [Pending], Chloride Level [Pending], Carbon Dioxide Level [Pending], Blood Urea Nitrogen [Pending], Creatinine [Pending], Estimat Glomerular Filtration Rate [Pending], Glucose Level [Pending], Calcium Level [ Pending], Phosphorus Level [Pending], Magnesium Level [Pending], Total Bilirubin [Pending], Aspartate Amino Transf (AST/SGOT) [Pending], Alanine Aminotransferase (ALT/SGPT) [Pending], Alkaline Phosphatase [Pending], C- Reactive Protein, Quantitative [Pending], Total Protein [Pending], Albumin [ Pending], Globulin [Pending] Height (Feet): 6 Height (Inches): 0.00 Weight (Pounds): 193 General Appearance: no apparent distress Neck: normal alignment Cardiovascular: normal rate Respiratory/Chest: lungs clear Abdomen: normal bowel sounds Pelvis: normal external exam Objective Current Medications Medications (Trade) Dose Ordered Sig/Dejon Route PRN Reason Start Time Stop Time Status Last Admin Dose Admin Acetaminophen (Tylenol) 650 mg Q4H PRN ORAL fever 04/27/19 15:43 05/27/19 15:42 Acetaminophen/ Hydrocodone Bitart ([place] 5/325) 1 tab Q6H PRN ORAL Severe Pain (Pain Scale 7-10) 04/27/19 15:45 05/04/19 15:44 04/28/19 06:31 Albuterol/ Ipratropium (Albuterol/ Ipratropium) 3 ml Q4H PRN HHN Shortness of Breath 04/27/19 15:44 05/02/19 15:43 Albuterol/ Ipratropium (Albuterol/ Ipratropium) 3 ml Q4HRT HHN 04/27/19 19:00 04/28/19 10:59 04/28/19 02:51 Apixaban (Eliquis) 5 mg BID ORAL 04/27/19 18:00 05/09/19 08:59 04/27/19 17:10 Carvedilol (Coreg) 6.25 mg EVERY 12 HOURS ORAL 04/27/19 21:00 05/09/19 08:59 Clonidine HCl (Catapres Tab) 0.1 mg Q4H PRN ORAL sbp more than 160 04/27/19 15:43 05/27/19 15:42 Clotrimazole (Lotrimin) 1 applic THREE TIMES A DAY TOPIC 04/27/19 18:00 05/20/19 12:59 04/27/19 17:30 Dextrose (Dextrose 50%) 25 ml Q30M PRN IV Hypoglycemia 04/27/19 16:00 05/09/19 07:29 Dextrose (Dextrose 50%) 50 ml Q30M PRN IV Hypoglycemia 04/27/19 16:00 05/09/19 07:29 Escitalopram Oxalate (Lexapro) 10 mg DAILY ORAL 04/28/19 09:00 05/27/19 08:59 Insulin Aspart (NovoLOG) BEFORE MEALS AND HS SUBQ 04/27/19 16:30 05/09/19 13:29 04/27/19 17:11 Insulin Aspart (NovoLOG) 10 units NOVOTIAC SUBQ 04/27/19 16:50 05/10/19 07:29 04/28/19 06:44 Insulin Detemir (Levemir) 16 units BID SUBQ 04/27/19 18:00 05/09/19 20:59 04/27/19 17:11 Levothyroxine Sodium (Synthroid) 75 mcg ACBREAKFAST ORAL 04/28/19 06:30 05/27/19 06:29 04/28/19 06:31 Levothyroxine Sodium (Synthroid) 100 mcg ACBREAKFAST ORAL 04/28/19 06:30 05/09/19 06:29 04/28/19 06:31 Nitroglycerin (Ntg) 0.4 mg Q5M X 3 DOSES PRN SL Prn Chest Pain 04/27/19 15:45 05/08/19 21:29 Ondansetron HCl (Zofran) 4 mg Q6H PRN IVP Nausea & Vomiting 04/27/19 15:46 05/27/19 15:45 Oxymetazoline HCl (Afrin Nasal [place]) 1 spray Q6H PRN NASAL nasal congestion 04/27/19 17:00 05/27/19 16:59 Piperacillin Sod/ Tazobactam Sod 3.375 gm/Sodium Chloride 110 ml @ 27.5 mls/hr Q8H IVPB 04/27/19 18:00 04/28/19 17:59 04/28/19 02:07 Promethazine HCl/ Codeine (Phenergan with Codeine) 5 ml Q6H PRN ORAL cough 04/27/19 15:46 05/27/19 15:45 Tamsulosin HCl (Flomax) 0.4 mg BEDTIME ORAL 04/27/19 21:00 05/09/19 20:59 Geovanni To MD Apr 28, 2019 06:51
[2019-04-28 07:08] LABS: ALANINE AMINOTRANSFERASE 34 U/L (12-78); ALBUMIN 2.7 G/DL (3.4-5.0); ALBUMIN/GLOBULIN RATIO 0.8 (1.0-2.7); ALKALINE PHOSPHATASE 65 U/L (46-116); ANION GAP 5 mmol/L (5-15); ASPARTATE AMINO TRANSFERASE 16 U/L (15-37); BILIRUBIN,TOTAL 0.4 MG/DL (0.2-1.0); BLOOD UREA NITROGEN 14 mg/dL (7-18); CALCIUM 8.6 MG/DL (8.5-10.1); CARBON DIOXIDE 34 MMOL/L (21-32); CHLORIDE 102 MMOL/L (98-107); CREATININE 0.9 MG/DL (0.55-1.30); PHOSPHORUS 2.4 MG/DL (2.5-4.9); SODIUM 140 MMOL/L (136-145)
[2019-04-28 07:12] LABS: BASOPHILS % (AUTO) 0.8 % (0.0-2.0); HEMATOCRIT 35.8 % (42.0-52.0); HEMOGLOBIN 11.7 G/DL (14.2-18.0); LYMPHOCYTES % (AUTO) 18.3 % (20.0-45.0); MEAN CORPUSCULAR VOLUME 90 FL (80-99); MONOCYTES % (AUTO) 9.3 % (1.0-10.0); NEUTROPHILS % (AUTO) 65.6 % (45.0-75.0); PLATELET COUNT 165 K/UL (150-450); RED BLOOD COUNT 3.97 M/UL (4.70-6.10); RED CELL DISTRIBUTION WIDTH 14.3 % (11.6-14.8); WHITE BLOOD COUNT 7.7 K/UL (4.8-10.8)
[2019-04-28 08:00] VITALS: BP 119/80
[2019-04-28] MEDS: Carvedilol 6.25mg Tab ORAL SCH ×2 (09:18→20:55)
[2019-04-28] MEDS: Eliquis 5mg tablet ORAL SCH ×2 (09:18→18:21)
--- NOTE | 2019-04-28 11:42 | Infectious Diseases Prog Note ---
Assessment/Plan Assessment/Plan Assessment: Acute hypoxic respiratory failure s/p bipap, now at [place] COPD exacerbation CHF exacerbation PNA -04/27 CXR: Borderline cardiomegaly. Questionable mild interstitial congestion , new or increased from previous study if real. -04/21 CTA chest:Somewhat limited exam, due to motion artifact. No definite evidence of pulmonary embolus or other acute thoracic vascular pathology. Borderline cardiomegaly. Diffuse bilateral pulmonary parenchymal groundglass opacity. Interspersed small bullae digestive this is due to COPD changes, but could also indicate a component of pulmonary edema. Considerable consolidation in the right lower lobe, likely pneumonia. Less extensive consolidation and atelectasis is seen at the left lung base. Pacemaker, degenerative spondylosis incidentally noted sp cx normal resp michael -04/19 CXR: Mild pulmonary vascular congestion -04/16 CXR: No acute disease -04/13 CXR: Suspected mild pulmonary vascular congestion. Correlate clinically -04/08 CXR: Mild pulmonary vascular congestion suspected Afebrile Leukocytosis,(s/p high dose steroids), SP KAYLAN, improving Hyperglycemia COPD CAD CHF prostate cancer s/p PPM former smoker Plan: -D/c empiric Zosyn #/ and monitor off abx -04/15 SP Levaquin #7 -04/08 SP Ceftriaxone x1, Azithromycin x1 -Monitor CBC/CMP, temperatures -aspiration precautions Thank you for this consultation. Will continue to follow along with you. Subjective Allergies: Coded Allergies: No Known Allergies (Unverified , 10/24/16) Subjective afebrile no leukocytosis at 2l [place] Objective Vital Signs Last 24 Hour Vital Signs Date Time Temp Pulse Resp B/P (MAP) Pulse Ox O2 Delivery O2 Flow Rate FiO2 04/28/19 10:50 73 18 96 Nasal Cannula 2.0 70 18 88 04/28/19 09:18 87 119/80 04/28/19 09:00 Nasal Cannula 4.0 04/28/19 08:00 98.5 87 20 119/80 (93) 91 04/28/19 07:38 95 Nasal Cannula 2.0 28 04/28/19 07:38 89 22 95 Room Air 21 86 18 83 04/28/19 02:51 74 18 95 Nasal Cannula 2.0 28 70 18 90 04/27/19 23:38 98.1 81 20 137/64 (88) 90 04/27/19 23:33 80 19 96 Nasal Cannula 2.0 28 79 18 88 04/27/19 21:00 74 143/59 04/27/19 21:00 Nasal Cannula 4.0 04/27/19 20:00 98.3 74 21 143/59 (87) 90 04/27/19 18:39 90 Nasal Cannula 2.0 28 04/27/19 18:39 80 20 95 Nasal Cannula 2.0 28 72 16 87 04/27/19 17:12 63 24 92 Nasal Cannula 2.0 28 04/27/19 16:00 Nasal Cannula 5.0 04/27/19 15:50 98.2 90 16 155/91 (112) 93 04/27/19 15:39 87 20 96 Nasal Cannula 2.0 28 84 24 92 04/27/19 12:00 97.0 70 16 108/69 (82) 93 04/27/19 12:00 Nasal Cannula 5.0 Height (Feet): 6 Height (Inches): 0.00 Weight (Pounds): 193 Objective General Appearance: no distress,confused HEENT: normocephalic, atraumatic Neck: supple Respiratory/Chest: chest wall non-tender, bibasilar ronchi Cardiovascular/Chest: no murmurs Extremities: normal range of motion Laboratory Tests Test 04/28/19 05:20 White Blood Count 7.7 K/UL (4.8-10.8) Red Blood Count 3.97 M/UL (4.70-6.10) L Hemoglobin 11.7 G/DL (14.2-18.0) L Hematocrit 35.8 % (42.0-52.0) L Mean Corpuscular Volume 90 FL (80-99) Mean Corpuscular Hemoglobin 29.5 PG (27.0-31.0) Mean Corpuscular Hemoglobin Concent 32.7 G/DL (32.0-36.0) Red Cell Distribution Width 14.3 % (11.6-14.8) Platelet Count 165 K/UL (150-450) Mean Platelet Volume 7.4 FL (6.5-10.1) Neutrophils (%) (Auto) 65.6 % (45.0-75.0) Lymphocytes (%) (Auto) 18.3 % (20.0-45.0) L Monocytes (%) (Auto) 9.3 % (1.0-10.0) Eosinophils (%) (Auto) 6.0 % (0.0-3.0) H Basophils (%) (Auto) 0.8 % (0.0-2.0) Erythrocyte Sedimentation Rate 29 MM/HR (0-20) H Sodium Level 140 MMOL/L (136-145) Potassium Level 4.0 MMOL/L (3.5-5.1) Chloride Level 102 MMOL/L (98-107) Carbon Dioxide Level 34 MMOL/L (21-32) H Anion Gap 5 mmol/L (5-15) Blood Urea Nitrogen 14 mg/dL (7-18) Creatinine 0.9 MG/DL (0.55-1.30) Estimat Glomerular Filtration Rate > 60 mL/min (>60) Glucose Level 145 MG/DL (74-106) H Calcium Level 8.6 MG/DL (8.5-10.1) Phosphorus Level 2.4 MG/DL (2.5-4.9) L Magnesium Level 1.8 MG/DL (1.8-2.4) Total Bilirubin 0.4 MG/DL (0.2-1.0) Aspartate Amino Transf (AST/SGOT) 16 U/L (15-37) Alanine Aminotransferase (ALT/SGPT) 34 U/L (12-78) Alkaline Phosphatase 65 U/L (46-116) C-Reactive Protein, Quantitative 9.3 mg/dL (0.00-0.90) H Total Protein 6.3 G/DL (6.4-8.2) L Albumin 2.7 G/DL (3.4-5.0) L Globulin 3.6 g/dL Albumin/Globulin Ratio 0.8 (1.0-2.7) L Current Medications Medications (Trade) Dose Ordered Sig/Dejon Route PRN Reason Start Time Stop Time Status Last Admin Dose Admin Acetaminophen (Tylenol) 650 mg Q4H PRN ORAL fever 04/27/19 15:43 05/27/19 15:42 Acetaminophen/ Hydrocodone Bitart ([place] 5/325) 1 tab Q6H PRN ORAL Severe Pain (Pain Scale 7-10) 04/27/19 15:45 05/04/19 15:44 04/28/19 06:31 Albuterol/ Ipratropium (Albuterol/ Ipratropium) 3 ml Q4H PRN HHN Shortness of Breath 04/27/19 15:44 05/02/19 15:43 Apixaban (Eliquis) 5 mg BID ORAL 04/27/19 18:00 05/09/19 08:59 04/28/19 09:18 Carvedilol (Coreg) 6.25 mg EVERY 12 HOURS ORAL 04/27/19 21:00 05/09/19 08:59 04/28/19 09:18 Clonidine HCl (Catapres Tab) 0.1 mg Q4H PRN ORAL sbp more than 160 04/27/19 15:43 05/27/19 15:42 Clotrimazole (Lotrimin) 1 applic THREE TIMES A DAY TOPIC 04/27/19 18:00 05/20/19 12:59 04/27/19 17:30 Dextrose (Dextrose 50%) 25 ml Q30M PRN IV Hypoglycemia 04/27/19 16:00 05/09/19 07:29 Dextrose (Dextrose 50%) 50 ml Q30M PRN IV Hypoglycemia 04/27/19 16:00 05/09/19 07:29 Escitalopram Oxalate (Lexapro) 10 mg DAILY ORAL 04/28/19 09:00 05/27/19 08:59 04/28/19 09:18 Insulin Aspart (NovoLOG) BEFORE MEALS AND HS SUBQ 04/27/19 16:30 05/09/19 13:29 04/27/19 17:11 Insulin Aspart (NovoLOG) 10 units NOVOTIAC SUBQ 04/27/19 16:50 05/10/19 07:29 04/28/19 06:44 Insulin Detemir (Levemir) 16 units QHS SUBQ 04/28/19 21:00 05/09/19 20:59 Levothyroxine Sodium (Synthroid) 75 mcg ACBREAKFAST ORAL 04/28/19 06:30 05/27/19 06:29 04/28/19 06:31 Levothyroxine Sodium (Synthroid) 100 mcg ACBREAKFAST ORAL 04/28/19 06:30 05/09/19 06:29 04/28/19 06:31 Nitroglycerin (Ntg) 0.4 mg Q5M X 3 DOSES PRN SL Prn Chest Pain 04/27/19 15:45 05/08/19 21:29 Ondansetron HCl (Zofran) 4 mg Q6H PRN IVP Nausea & Vomiting 04/27/19 15:46 05/27/19 15:45 Oxymetazoline HCl (Afrin Nasal [place]) 1 spray Q6H PRN NASAL nasal congestion 04/27/19 17:00 05/27/19 16:59 04/28/19 09:18 Piperacillin Sod/ Tazobactam Sod 3.375 gm/Sodium Chloride 110 ml @ 27.5 mls/hr Q8H IVPB 04/27/19 18:00 04/28/19 17:59 04/28/19 10:59 Promethazine HCl/ Codeine (Phenergan with Codeine) 5 ml Q6H PRN ORAL cough 04/27/19 15:46 05/27/19 15:45 Tamsulosin HCl (Flomax) 0.4 mg BEDTIME ORAL 04/27/19 21:00 05/09/19 20:59 An Villa M.D. Apr 28, 2019 11:42
[2019-04-28 12:00] VITALS: BP 91/67
--- NOTE | 2019-04-28 12:16 | Pulmonology Progress Note ---
Assessment/Plan Problems: (1) Respiratory failure with hypoxia (2) COPD exacerbation (3) Pneumonia (4) Pacemaker (5) Diabetes mellitus (6) Prostate cancer Assessment/Plan repeat CXR showed mild increase in interstitial edema. will give one dose of lasix still short of breath, loud rhonchi abx as per ID, finished an empiric course today sliding scale diabetic diet psych consult appreciated Subjective Interval Events: still short of breath Allergies: Coded Allergies: No Known Allergies (Unverified , 10/24/16) Objective Last 24 Hour Vital Signs Date Time Temp Pulse Resp B/P (MAP) Pulse Ox O2 Delivery O2 Flow Rate FiO2 04/28/19 12:00 98.3 70 18 91/67 (75) 95 04/28/19 10:50 73 18 96 Nasal Cannula 2.0 28 70 18 88 04/28/19 09:18 87 119/80 04/28/19 09:00 Nasal Cannula 4.0 04/28/19 08:00 98.5 87 20 119/80 (93) 91 04/28/19 07:38 95 Nasal Cannula 2.0 28 04/28/19 07:38 89 22 95 Room Air 21 86 18 83 04/28/19 02:51 74 18 95 Nasal Cannula 2.0 28 70 18 90 04/27/19 23:38 98.1 81 20 137/64 (88) 90 04/27/19 23:33 80 19 96 Nasal Cannula 2.0 28 79 18 88 04/27/19 21:00 74 143/59 04/27/19 21:00 Nasal Cannula 4.0 04/27/19 20:00 98.3 74 21 143/59 (87) 90 04/27/19 18:39 90 Nasal Cannula 2.0 28 04/27/19 18:39 80 20 95 Nasal Cannula 2.0 28 72 16 87 04/27/19 17:12 63 24 92 Nasal Cannula 2.0 28 04/27/19 16:00 Nasal Cannula 5.0 04/27/19 15:50 98.2 90 16 155/91 (112) 93 04/27/19 15:39 87 20 96 Nasal Cannula 2.0 28 84 24 92 Intake and Output 04/27/19 04/28/19 19:00 07:00 Intake Total 610.0 ml 480 ml Output Total 500 ml 900 ml Balance 110.0 ml -420 ml Intake Oral 500 ml 480 ml IV Total 110.0 ml Output Urine Total 500 ml 900 ml # Voids 1 # Bowel Movements 1 General Appearance: WD/WN HEENT: normocephalic, atraumatic Respiratory/Chest: chest wall non-tender, crackles/rales Cardiovascular: normal peripheral pulses, normal rate Abdomen: normal bowel sounds, non distended Extremities: no cyanosis Skin: no rash 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/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 grossly normal Laboratory Tests 04/28/19 05:20: White Blood Count 7.7, Red Blood Count 3.97L, Hemoglobin 11.7L, Hematocrit 35.8L , Mean Corpuscular Volume 90, Mean Corpuscular Hemoglobin 29.5, Mean Corpuscular Hemoglobin Concent 32.7, Red Cell Distribution Width 14.3, Platelet Count 165, Mean Platelet Volume 7.4, Neutrophils (%) (Auto) 65.6, Lymphocytes (% ) (Auto) 18.3L, Monocytes (%) (Auto) 9.3, Eosinophils (%) (Auto) 6.0H, Basophils (%) (Auto) 0.8, Erythrocyte Sedimentation Rate 29H, Sodium Level 140, Potassium Level 4.0, Chloride Level 102, Carbon Dioxide Level 34H, Anion Gap 5, Blood Urea Nitrogen 14, Creatinine 0.9, Estimat Glomerular Filtration Rate > 60 , Glucose Level 145H, Calcium Level 8.6, Phosphorus Level 2.4L, Magnesium Level 1.8, Total Bilirubin 0.4, Aspartate Amino Transf (AST/SGOT) 16, Alanine Aminotransferase (ALT/SGPT) 34, Alkaline Phosphatase 65, C-Reactive Protein, Quantitative 9.3H, Total Protein 6.3L, Albumin 2.7L, Globulin 3.6, Albumin/ Globulin Ratio 0.8L Current Medications Medications (Trade) Dose Ordered Sig/Dejon Route PRN Reason Start Time Stop Time Status Last Admin Dose Admin Acetaminophen (Tylenol) 650 mg Q4H PRN ORAL fever 04/27/19 15:43 05/27/19 15:42 Acetaminophen/ Hydrocodone Bitart ([place] 5/325) 1 tab Q6H PRN ORAL Severe Pain (Pain Scale 7-10) 04/27/19 15:45 05/04/19 15:44 04/28/19 06:31 Albuterol/ Ipratropium (Albuterol/ Ipratropium) 3 ml Q4H PRN HHN Shortness of Breath 04/27/19 15:44 05/02/19 15:43 Apixaban (Eliquis) 5 mg BID ORAL 04/27/19 18:00 05/09/19 08:59 04/28/19 09:18 Carvedilol (Coreg) 6.25 mg EVERY 12 HOURS ORAL 04/27/19 21:00 05/09/19 08:59 04/28/19 09:18 Clonidine HCl (Catapres Tab) 0.1 mg Q4H PRN ORAL sbp more than 160 04/27/19 15:43 05/27/19 15:42 Clotrimazole (Lotrimin) 1 applic THREE TIMES A DAY TOPIC 04/27/19 18:00 05/20/19 12:59 04/27/19 17:30 Dextrose (Dextrose 50%) 25 ml Q30M PRN IV Hypoglycemia 04/27/19 16:00 05/09/19 07:29 Dextrose (Dextrose 50%) 50 ml Q30M PRN IV Hypoglycemia 04/27/19 16:00 05/09/19 07:29 Escitalopram Oxalate (Lexapro) 10 mg DAILY ORAL 04/28/19 09:00 05/27/19 08:59 04/28/19 09:18 Insulin Aspart (NovoLOG) BEFORE MEALS AND HS SUBQ 04/27/19 16:30 05/09/19 13:29 04/27/19 17:11 Insulin Aspart (NovoLOG) 10 units NOVOTIAC SUBQ 04/27/19 16:50 05/10/19 07:29 04/28/19 06:44 Insulin Detemir (Levemir) 16 units QHS SUBQ 04/28/19 21:00 05/09/19 20:59 Levothyroxine Sodium (Synthroid) 75 mcg ACBREAKFAST ORAL 04/28/19 06:30 05/27/19 06:29 04/28/19 06:31 Levothyroxine Sodium (Synthroid) 100 mcg ACBREAKFAST ORAL 04/28/19 06:30 05/09/19 06:29 04/28/19 06:31 Nitroglycerin (Ntg) 0.4 mg Q5M X 3 DOSES PRN SL Prn Chest Pain 04/27/19 15:45 05/08/19 21:29 Ondansetron HCl (Zofran) 4 mg Q6H PRN IVP Nausea & Vomiting 04/27/19 15:46 05/27/19 15:45 Oxymetazoline HCl (Afrin Nasal [place]) 1 spray Q6H PRN NASAL nasal congestion 04/27/19 17:00 05/27/19 16:59 04/28/19 09:18 Promethazine HCl/ Codeine (Phenergan with Codeine) 5 ml Q6H PRN ORAL cough 04/27/19 15:46 05/27/19 15:45 Tamsulosin HCl (Flomax) 0.4 mg BEDTIME ORAL 04/27/19 21:00 05/09/19 20:59 Goldie Obrien MD Apr 28, 2019 12:16
[2019-04-28 16:00] VITALS: BP 107/77
--- NOTE | 2019-04-28 19:25 | Internal Med Progress Note ---
Subjective Date of Service: Apr 28, 2019 Physician Name Idris Lugo Attending Physician Jewel Giraldo MD Current Medications Medications (Trade) Dose Ordered Sig/Dejon Route PRN Reason Start Time Stop Time Status Last Admin Dose Admin Acetaminophen (Tylenol) 650 mg Q4H PRN ORAL fever 04/27/19 15:43 05/27/19 15:42 Acetaminophen/ Hydrocodone Bitart ([place] 5/325) 1 tab Q6H PRN ORAL Severe Pain (Pain Scale 7-10) 04/27/19 15:45 05/04/19 15:44 04/28/19 06:31 Albuterol/ Ipratropium (Albuterol/ Ipratropium) 3 ml Q4H PRN HHN Shortness of Breath 04/27/19 15:44 05/02/19 15:43 Apixaban (Eliquis) 5 mg BID ORAL 04/27/19 18:00 05/09/19 08:59 04/28/19 18:21 Carvedilol (Coreg) 6.25 mg EVERY 12 HOURS ORAL 04/27/19 21:00 05/09/19 08:59 04/28/19 09:18 Clonidine HCl (Catapres Tab) 0.1 mg Q4H PRN ORAL sbp more than 160 04/27/19 15:43 05/27/19 15:42 Clotrimazole (Lotrimin) 1 applic THREE TIMES A DAY TOPIC 04/27/19 18:00 05/20/19 12:59 04/27/19 17:30 Dextrose (Dextrose 50%) 25 ml Q30M PRN IV Hypoglycemia 04/27/19 16:00 05/09/19 07:29 Dextrose (Dextrose 50%) 50 ml Q30M PRN IV Hypoglycemia 04/27/19 16:00 05/09/19 07:29 Escitalopram Oxalate (Lexapro) 10 mg DAILY ORAL 04/28/19 09:00 05/27/19 08:59 04/28/19 09:18 Insulin Aspart (NovoLOG) BEFORE MEALS AND HS SUBQ 04/27/19 16:30 05/09/19 13:29 04/28/19 12:36 Insulin Aspart (NovoLOG) 10 units NOVOTIAC SUBQ 04/27/19 16:50 05/10/19 07:29 04/28/19 12:37 Insulin Detemir (Levemir) 16 units QHS SUBQ 04/28/19 21:00 05/09/19 20:59 Levothyroxine Sodium (Synthroid) 75 mcg ACBREAKFAST ORAL 04/28/19 06:30 05/27/19 06:29 04/28/19 06:31 Levothyroxine Sodium (Synthroid) 100 mcg ACBREAKFAST ORAL 04/28/19 06:30 05/09/19 06:29 04/28/19 06:31 Nitroglycerin (Ntg) 0.4 mg Q5M X 3 DOSES PRN SL Prn Chest Pain 04/27/19 15:45 05/08/19 21:29 Ondansetron HCl (Zofran) 4 mg Q6H PRN IVP Nausea & Vomiting 04/27/19 15:46 05/27/19 15:45 Oxymetazoline HCl (Afrin Nasal [place]) 1 spray Q6H PRN NASAL nasal congestion 04/27/19 17:00 05/27/19 16:59 04/28/19 09:18 Promethazine HCl/ Codeine (Phenergan with Codeine) 5 ml Q6H PRN ORAL cough 04/27/19 15:46 05/27/19 15:45 Tamsulosin HCl (Flomax) 0.4 mg BEDTIME ORAL 04/27/19 21:00 05/09/19 20:59 Allergies: Coded Allergies: No Known Allergies (Unverified , 10/24/16) ROS Limited/Unobtainable: No Constitutional: Reports: no symptoms HEENT: Reports: no symptoms Cardiovascular: Reports: no symptoms Respiratory: Reports: shortness of breath Gastrointestinal/Abdominal: Reports: no symptoms Genitourinary: Reports: no symptoms Neurologic/Psychiatric: Reports: no symptoms Subjective 73 YO M admitted with COPD exacerbation. Now respiratory failure and pneumonia. Cover for Int Bubba-DR Giraldo Objective Last Vital Signs Date Time Temp Pulse Resp B/P (MAP) Pulse Ox O2 Delivery O2 Flow Rate FiO2 04/28/19 16:00 98.6 60 19 107/77 (87) 97 04/28/19 10:50 Nasal Cannula 2.0 28 Laboratory Tests Test 04/28/19 05:20 White Blood Count 7.7 K/UL (4.8-10.8) Red Blood Count 3.97 M/UL (4.70-6.10) L Hemoglobin 11.7 G/DL (14.2-18.0) L Hematocrit 35.8 % (42.0-52.0) L Mean Corpuscular Volume 90 FL (80-99) Mean Corpuscular Hemoglobin 29.5 PG (27.0-31.0) Mean Corpuscular Hemoglobin Concent 32.7 G/DL (32.0-36.0) Red Cell Distribution Width 14.3 % (11.6-14.8) Platelet Count 165 K/UL (150-450) Mean Platelet Volume 7.4 FL (6.5-10.1) Neutrophils (%) (Auto) 65.6 % (45.0-75.0) Lymphocytes (%) (Auto) 18.3 % (20.0-45.0) L Monocytes (%) (Auto) 9.3 % (1.0-10.0) Eosinophils (%) (Auto) 6.0 % (0.0-3.0) H Basophils (%) (Auto) 0.8 % (0.0-2.0) Erythrocyte Sedimentation Rate 29 MM/HR (0-20) H Sodium Level 140 MMOL/L (136-145) Potassium Level 4.0 MMOL/L (3.5-5.1) Chloride Level 102 MMOL/L (98-107) Carbon Dioxide Level 34 MMOL/L (21-32) H Anion Gap 5 mmol/L (5-15) Blood Urea Nitrogen 14 mg/dL (7-18) Creatinine 0.9 MG/DL (0.55-1.30) Estimat Glomerular Filtration Rate > 60 mL/min (>60) Glucose Level 145 MG/DL (74-106) H Calcium Level 8.6 MG/DL (8.5-10.1) Phosphorus Level 2.4 MG/DL (2.5-4.9) L Magnesium Level 1.8 MG/DL (1.8-2.4) Total Bilirubin 0.4 MG/DL (0.2-1.0) Aspartate Amino Transf (AST/SGOT) 16 U/L (15-37) Alanine Aminotransferase (ALT/SGPT) 34 U/L (12-78) Alkaline Phosphatase 65 U/L (46-116) C-Reactive Protein, Quantitative 9.3 mg/dL (0.00-0.90) H Total Protein 6.3 G/DL (6.4-8.2) L Albumin 2.7 G/DL (3.4-5.0) L Globulin 3.6 g/dL Albumin/Globulin Ratio 0.8 (1.0-2.7) L Intake and Output 04/27/19 04/28/19 19:00 07:00 Intake Total 610.0 ml 480 ml Output Total 500 ml 900 ml Balance 110.0 ml -420 ml Intake Oral 500 ml 480 ml IV Total 110.0 ml Output Urine Total 500 ml 900 ml # Voids 1 # Bowel Movements 1 Objective PHYSICAL EXAMINATION: GENERAL: The patient is awake, responsive, no acute distress. HEAD AND NECK: Pupils are equal and reactive to light. Extraocular muscles intact. Neck was supple. No JVD. LUNGS: BIPAP;The patient has expiratory wheezes noted. Tachypneic. No rhonchi was noted. HEART: S1, S2. Irregular. No murmur. The patient has a pacemaker in the left-sided chest wall. ABDOMEN: Soft, nondistended, nontender. Mildly obese. EXTREMITIES: No cyanosis, clubbing, edema. NEUROLOGIC: Cranial nerves II through XII grossly normal. Motor is 5/5 in all extremities. Gait is intact. GENITOURINARY: It was noted the patient has a Montgomery catheter. RECTAL: Refused and deferred. PSYCHIATRIC: Mood and affect is intact. Assessment/Plan Assessment/Plan ASSESSMENT: 1. Acute hypoxemic respiratory failure, most likely secondary to acute COPD exacerbation. 2. Acute COPD exacerbation. 3. Pneumonia. 4. Sick sinus syndrome status post pacemaker. 5. Diabetes type 2. 6. Prostate cancer. 7. Hyperkalemia. 8. Insulin induced hyperglycemia. 9. Prostate enlargement. 10. Leukocytosis 11. RBBB PLAN: 1. Med/Surg 2. D/C Solu-Medrol IV Per Pulmonary consult=Dr. Obrien. 3. Endocrinology=Dr To. Monitor blood glucose level closely. 4. antibiotic=Zosyn. ID=Dr Beckham 5. Code status is Full Code. DVT prophylaxis, he is on Eliquis. Idris Lugo MD Apr 28, 2019 19:25
[2019-04-28 20:00] VITALS: BP 122/77
--- NOTE | 2019-04-28 20:45 | Consultation ---
DATE OF CONSULTATION: 04/28/2019 CONSULTING PHYSICIAN: Christiano La M.D. CHIEF COMPLAINT: Anemia. HISTORY OF PRESENT ILLNESS: This is a 73-year-old male with recent discharge from [facility] after having COPD exacerbation, has been admitted to the hospital since 04/08/2019. The patient mainly was admitted for COPD exacerbation. the patient complained of some abdominal pain and anemia, so GI consult was requested for evaluation. PAST MEDICAL HISTORY: 1. History of COPD. 2. Chronic smoker. 3. Coronary artery disease. 4. Prostate cancer. 5. Sick sinus syndrome, status post pacemaker placement. 6. Cardiac arrhythmia. PAST SURGICAL HISTORY: History of pacemaker placement. ALLERGIES: No known allergies. MEDICATIONS: Please see medication reconciliation list. SOCIAL HISTORY: The patient is an ex-smoker, quit about a year ago. Denies any alcohol or drug abuse. FAMILY HISTORY: Noncontributory. REVIEW OF SYSTEMS: Limited. PHYSICAL EXAMINATION: VITAL SIGNS: Temperature is 98.3, pulse 70, respirations 18, and blood pressure 91/67. HEENT: Normocephalic and atraumatic. Sclerae are anicteric. NECK: Supple. No evidence of obvious lymphadenopathy. CARDIOVASCULAR: Regular rate and rhythm. Plus S1 and S2. There is a pacemaker in the left upper chest. LUNGS: Decreased breath sounds bilaterally based on the supine exam. ABDOMEN: Soft and nontender. No rebound. No guarding. No peritoneal sign. EXTREMITIES: No cyanosis, no clubbing, no edema. LABORATORY DATA: White count 7.7, hemoglobin 11.7, hematocrit 35.8, platelet count is 165,000. Chem-7, sodium 140, potassium 4.0, BUN is 14, creatinine is 0.9, glucose is 145. Hemoglobin A1c came back as 8.6. Liver enzymes are grossly normal. ASSESSMENT AND PLAN: This is a 73-year-old male with COPD exacerbation and new-onset diabetes given hemoglobin A1c is high. The patient at one point will need endoscopy and colonoscopy given anemia, but given the recent COPD exacerbation and still currently recovering from that, we are going to hold off. Respiratory castellon, the patient has been stable. Plan to do anemia workup including stool for OB, iron panel, B12, folate, and CEA. If there is any alarming sign or symptoms, we will consider doing endoscopy and colonoscopy as inpatient. Otherwise, the patient needs to follow as an outpatient. I want to thank Dr. Jewel Giraldo and Dr. Barroso for this kind referral. Christiano La M.D. DR: AILYN JOB#: [id number] CC: Jewel Giraldo M.D.; Fax#: [phone] SKINNY BARROSO M.D. ; FAX#: [phone]
[2019-04-28] MEDS: Tamsulosin 0.4mg cap ORAL SCH (20:55)
[2019-04-28] MEDS ORDERED: Levemir Flexpen SUBQ SCH (21:00)
[2019-04-29] VITALS: BP 127/70
--- NOTE | 2019-04-29 05:30 | Progress Note ---
DATE: 04/28/2019 SUBJECTIVE: The patient is in bed. The patient is irritable, angry, uncooperative. The patient was being discharged today, refusing to leave. The patient stated that "leave me lone." MENTAL STATUS EXAMINATION: Alert and oriented to times self, place, and situation. Mood is angry. Affect is blunted, congruent with mood. Thought process is concrete. Thought content, no suicidal or homicidal ideation. Cognition is intact. Insight and judgment is poor. ASSESSMENT: [place] I Major depressive disorder. [place] II Deferred. [place] III As above. [place] IV Low. [place] V 20. PLAN: 1. The patient will be continued on Lexapro. 2. The patient was provided ro/st Ottoniel Hillman M.D. DR: Asia JOB#: [id number] CC: JACKELIN
[2019-04-29] MEDS: NovoLOG Insulin Flexpen SUBQ SCH ×7 (06:30→21:00)
[2019-04-29 06:44] LABS: BASOPHILS % (AUTO) 0.8 % (0.0-2.0); EOSINOPHILS % (AUTO) 8.5 % (0.0-3.0); HEMATOCRIT 37.1 % (42.0-52.0); LYMPHOCYTES % (AUTO) 21.4 % (20.0-45.0); MEAN CORPUSCULAR VOLUME 91 FL (80-99); MONOCYTES % (AUTO) 8.7 % (1.0-10.0); NEUTROPHILS % (AUTO) 60.6 % (45.0-75.0); PLATELET COUNT 196 K/UL (150-450); RED BLOOD COUNT 4.09 M/UL (4.70-6.10); RED CELL DISTRIBUTION WIDTH 14.2 % (11.6-14.8); WHITE BLOOD COUNT 6.2 K/UL (4.8-10.8)
[2019-04-29] MEDS: HYDROcodone/Acetamin 5/325 tab ORAL PRN ×2 (07:04→12:24)
[2019-04-29 07:05] LABS: ANION GAP 4 mmol/L (5-15); BLOOD UREA NITROGEN 15 mg/dL (7-18); CALCIUM 9.1 MG/DL (8.5-10.1); CARBON DIOXIDE 35 MMOL/L (21-32); CHLORIDE 101 MMOL/L (98-107); POTASSIUM 3.9 MMOL/L (3.5-5.1); SODIUM 140 MMOL/L (136-145)
[2019-04-29 07:39] LABS: IRON 41 ug/dL (50-175); TOTAL IRON BINDING CAPACITY 358 ug/dL (250-450)
[2019-04-29 07:49] LABS: % IRON SATURATION 11 % (15-50)
[2019-04-29] MEDS: Eliquis 5mg tablet ORAL SCH ×3 (09:00→18:05)
[2019-04-29] MEDS: Carvedilol 6.25mg Tab ORAL SCH ×2 (09:00→21:14)
--- NOTE | 2019-04-29 10:32 | Infectious Diseases Prog Note ---
Assessment/Plan Assessment/Plan Assessment: Acute hypoxic respiratory failure s/p bipap, now at [place] COPD exacerbation CHF exacerbation PNA -04/27 CXR: Borderline cardiomegaly. Questionable mild interstitial congestion , new or increased from previous study if real. -04/21 CTA chest:Somewhat limited exam, due to motion artifact. No definite evidence of pulmonary embolus or other acute thoracic vascular pathology. Borderline cardiomegaly. Diffuse bilateral pulmonary parenchymal groundglass opacity. Interspersed small bullae digestive this is due to COPD changes, but could also indicate a component of pulmonary edema. Considerable consolidation in the right lower lobe, likely pneumonia. Less extensive consolidation and atelectasis is seen at the left lung base. Pacemaker, degenerative spondylosis incidentally noted sp cx normal resp michael -04/19 CXR: Mild pulmonary vascular congestion -04/16 CXR: No acute disease -04/13 CXR: Suspected mild pulmonary vascular congestion. Correlate clinically -04/08 CXR: Mild pulmonary vascular congestion suspected Afebrile Leukocytosis,(s/p high dose steroids), SP KAYLAN, improving Hyperglycemia COPD CAD CHF prostate cancer s/p PPM former smoker Plan: -Continue to monitor off abx -04/28 SP Zosyn #8 -04/15 SP Levaquin #7 -04/08 SP Ceftriaxone x1, Azithromycin x1 -Monitor CBC/CMP, temperatures -aspiration precautions Thank you for this consultation. Will continue to follow along with you. Subjective Allergies: Coded Allergies: No Known Allergies (Unverified , 10/24/16) Subjective afebrile no leukocytosis at 2l [place] transferred out of SDU to med surg Objective Vital Signs Last 24 Hour Vital Signs Date Time Temp Pulse Resp B/P (MAP) Pulse Ox O2 Delivery O2 Flow Rate FiO2 04/29/19 00:00 97.6 73 20 127/70 (89) 95 04/28/19 21:12 94 Nasal Cannula 2.0 28 04/28/19 21:00 Nasal Cannula 3.0 04/28/19 20:55 71 127/77 04/28/19 20:00 97.9 71 18 122/77 (92) 90 04/28/19 16:00 98.6 60 19 107/77 (87) 97 04/28/19 12:00 98.3 70 18 91/67 (75) 95 04/28/19 10:50 73 18 96 Nasal Cannula 2.0 28 70 18 88 Height (Feet): 6 Height (Inches): 0.00 Weight (Pounds): 193 Objective General Appearance: no distress,confused HEENT: normocephalic, atraumatic Neck: supple Respiratory/Chest: chest wall non-tender, bibasilar ronchi Cardiovascular/Chest: no murmurs Extremities: normal range of motion Laboratory Tests Test 04/29/19 05:10 White Blood Count 6.2 K/UL (4.8-10.8) Red Blood Count 4.09 M/UL (4.70-6.10) L Hemoglobin 12.0 G/DL (14.2-18.0) L Hematocrit 37.1 % (42.0-52.0) L Mean Corpuscular Volume 91 FL (80-99) Mean Corpuscular Hemoglobin 29.3 PG (27.0-31.0) Mean Corpuscular Hemoglobin Concent 32.3 G/DL (32.0-36.0) Red Cell Distribution Width 14.2 % (11.6-14.8) Platelet Count 196 K/UL (150-450) Mean Platelet Volume 7.7 FL (6.5-10.1) Neutrophils (%) (Auto) 60.6 % (45.0-75.0) Lymphocytes (%) (Auto) 21.4 % (20.0-45.0) Monocytes (%) (Auto) 8.7 % (1.0-10.0) Eosinophils (%) (Auto) 8.5 % (0.0-3.0) H Basophils (%) (Auto) 0.8 % (0.0-2.0) Sodium Level 140 MMOL/L (136-145) Potassium Level 3.9 MMOL/L (3.5-5.1) Chloride Level 101 MMOL/L (98-107) Carbon Dioxide Level 35 MMOL/L (21-32) H Anion Gap 4 mmol/L (5-15) L Blood Urea Nitrogen 15 mg/dL (7-18) Creatinine 1.0 MG/DL (0.55-1.30) Estimat Glomerular Filtration Rate > 60 mL/min (>60) Glucose Level 132 MG/DL (74-106) H Calcium Level 9.1 MG/DL (8.5-10.1) Iron Level 41 ug/dL (50-175) L Total Iron Binding Capacity 358 ug/dL (250-450) Percent Iron Saturation 11 % (15-50) L Unsaturated Iron Binding 317 ug/dL (112-346) Carcinoembryonic Antigen Pending Vitamin B12 Level 693 PG/ML (193-986) Folate 19.1 NG/ML (8.6-58.9) Current Medications Medications (Trade) Dose Ordered Sig/Dejon Route PRN Reason Start Time Stop Time Status Last Admin Dose Admin Acetaminophen (Tylenol) 650 mg Q4H PRN ORAL fever 04/27/19 15:43 05/27/19 15:42 04/29/19 01:52 Acetaminophen/ Hydrocodone Bitart ([place] 5/325) 1 tab Q6H PRN ORAL Severe Pain (Pain Scale 7-10) 04/27/19 15:45 05/04/19 15:44 04/29/19 07:04 Albuterol/ Ipratropium (Albuterol/ Ipratropium) 3 ml Q4H PRN HHN Shortness of Breath 04/27/19 15:44 05/02/19 15:43 Apixaban (Eliquis) 5 mg BID ORAL 04/27/19 18:00 05/09/19 08:59 04/28/19 18:21 Carvedilol (Coreg) 6.25 mg EVERY 12 HOURS ORAL 04/27/19 21:00 05/09/19 08:59 04/28/19 20:55 Clonidine HCl (Catapres Tab) 0.1 mg Q4H PRN ORAL sbp more than 160 04/27/19 15:43 05/27/19 15:42 Clotrimazole (Lotrimin) 1 applic THREE TIMES A DAY TOPIC 04/27/19 18:00 05/20/19 12:59 04/27/19 17:30 Dextrose (Dextrose 50%) 25 ml Q30M PRN IV Hypoglycemia 04/27/19 16:00 05/09/19 07:29 Dextrose (Dextrose 50%) 50 ml Q30M PRN IV Hypoglycemia 04/27/19 16:00 05/09/19 07:29 Escitalopram Oxalate (Lexapro) 10 mg DAILY ORAL 04/28/19 09:00 05/27/19 08:59 04/28/19 09:18 Insulin Aspart (NovoLOG) BEFORE MEALS AND HS SUBQ 04/27/19 16:30 05/09/19 13:29 04/28/19 21:06 Insulin Aspart (NovoLOG) 10 units NOVOTIAC SUBQ 04/27/19 16:50 05/10/19 07:29 04/29/19 07:06 Insulin Detemir (Levemir) 16 units QHS SUBQ 04/28/19 21:00 05/09/19 20:59 04/28/19 21:05 Levothyroxine Sodium (Synthroid) 75 mcg ACBREAKFAST ORAL 04/28/19 06:30 05/27/19 06:29 04/29/19 07:03 Levothyroxine Sodium (Synthroid) 100 mcg ACBREAKFAST ORAL 04/28/19 06:30 05/09/19 06:29 04/29/19 07:03 Nitroglycerin (Ntg) 0.4 mg Q5M X 3 DOSES PRN SL Prn Chest Pain 04/27/19 15:45 05/08/19 21:29 Ondansetron HCl (Zofran) 4 mg Q6H PRN IVP Nausea & Vomiting 04/27/19 15:46 05/27/19 15:45 Oxymetazoline HCl (Afrin Nasal [place]) 1 spray Q6H PRN NASAL nasal congestion 04/27/19 17:00 05/27/19 16:59 04/28/19 09:18 Promethazine HCl/ Codeine (Phenergan with Codeine) 5 ml Q6H PRN ORAL cough 04/27/19 15:46 05/27/19 15:45 04/29/19 01:51 Tamsulosin HCl (Flomax) 0.4 mg BEDTIME ORAL 04/27/19 21:00 05/09/19 20:59 04/28/19 20:55 An Villa M.D. Apr 29, 2019 10:32
--- NOTE | 2019-04-29 10:42 | GI Progress Note ---
Assessment/Plan Problems: (1) Diabetes mellitus ICD Codes: E11.9 - Type 2 diabetes mellitus without complications SNOMED: 50063168 (2) Anemia ICD Codes: D64.9 - Anemia, unspecified SNOMED: 204245036 Status: stable Status Narrative Discussed with Dr. La. Assessment/Plan This is a 73-year-old male with COPD exacerbation and new-onset diabetes given hemoglobin A1c is high. recommend endoscopy and colonoscopy given anemia at some point, but given the recent COPD exacerbation and still currently recovering from that, we will defer. anemia work up check ferritin OB stool r/o GI bleed monitor H&H, prn transfusions bowel regimen ppi fu labs will consider GI procedures if emergent, otherwise outpatient The patient was seen and examined at bedside and all new and available data was reviewed in the patients chart. I agree with the above findings, impression and plan. (Patient seen earlier today. Signature stamp does not reflect patient encounter time.). - Christiano La MD Subjective Gastrointestinal/Abdominal: Reports: no symptoms Objective Last 24 Hour Vital Signs Date Time Temp Pulse Resp B/P (MAP) Pulse Ox O2 Delivery O2 Flow Rate FiO2 04/29/19 00:00 97.6 73 20 127/70 (89) 95 04/28/19 21:12 94 Nasal Cannula 2.0 28 04/28/19 21:00 Nasal Cannula 3.0 04/28/19 20:55 71 127/77 04/28/19 20:00 97.9 71 18 122/77 (92) 90 04/28/19 16:00 98.6 60 19 107/77 (87) 97 04/28/19 12:00 98.3 70 18 91/67 (75) 95 04/28/19 10:50 73 18 96 Nasal Cannula 2.0 28 70 18 88 Intake and Output 04/28/19 04/29/19 19:00 07:00 Intake Total 1280 ml Output Total 3150 ml 850 ml Balance -3150 ml 430 ml Intake Oral 1280 ml Output Urine Total 3150 ml 850 ml # Bowel Movements 1 Laboratory Tests Test 04/29/19 05:10 White Blood Count 6.2 K/UL (4.8-10.8) Red Blood Count 4.09 M/UL (4.70-6.10) L Hemoglobin 12.0 G/DL (14.2-18.0) L Hematocrit 37.1 % (42.0-52.0) L Mean Corpuscular Volume 91 FL (80-99) Mean Corpuscular Hemoglobin 29.3 PG (27.0-31.0) Mean Corpuscular Hemoglobin Concent 32.3 G/DL (32.0-36.0) Red Cell Distribution Width 14.2 % (11.6-14.8) Platelet Count 196 K/UL (150-450) Mean Platelet Volume 7.7 FL (6.5-10.1) Neutrophils (%) (Auto) 60.6 % (45.0-75.0) Lymphocytes (%) (Auto) 21.4 % (20.0-45.0) Monocytes (%) (Auto) 8.7 % (1.0-10.0) Eosinophils (%) (Auto) 8.5 % (0.0-3.0) H Basophils (%) (Auto) 0.8 % (0.0-2.0) Sodium Level 140 MMOL/L (136-145) Potassium Level 3.9 MMOL/L (3.5-5.1) Chloride Level 101 MMOL/L (98-107) Carbon Dioxide Level 35 MMOL/L (21-32) H Anion Gap 4 mmol/L (5-15) L Blood Urea Nitrogen 15 mg/dL (7-18) Creatinine 1.0 MG/DL (0.55-1.30) Estimat Glomerular Filtration Rate > 60 mL/min (>60) Glucose Level 132 MG/DL (74-106) H Calcium Level 9.1 MG/DL (8.5-10.1) Iron Level 41 ug/dL (50-175) L Total Iron Binding Capacity 358 ug/dL (250-450) Percent Iron Saturation 11 % (15-50) L Unsaturated Iron Binding 317 ug/dL (112-346) Carcinoembryonic Antigen Pending Vitamin B12 Level 693 PG/ML (193-986) Folate 19.1 NG/ML (8.6-58.9) Height (Feet): 6 Height (Inches): 0.00 Weight (Pounds): 193 General Appearance: WD/WN, no apparent distress, alert, thin Cardiovascular: normal rate Respiratory/Chest: normal breath sounds, no respiratory distress Abdominal Exam: normal bowel sounds, non tender, soft Extremities: normal range of motion, non-tender Jeane Mosley NP Apr 29, 2019 10:42
--- NOTE | 2019-04-29 12:29 | Pulmonology Progress Note ---
Assessment/Plan Problems: (1) Nosocomial pneumonia (2) Respiratory failure with hypoxia (3) COPD exacerbation (4) Pneumonia (5) Pacemaker (6) Diabetes mellitus (7) Prostate cancer Assessment/Plan start on bipap start on abx, got Zosyn, ceftriaxone, Levofloxacin previously still short of breath, loud rhonchi sliding scale diabetic diet psych consult appreciated Subjective Interval Events: more short of breath, coughing up yellow mucus Allergies: Coded Allergies: No Known Allergies (Unverified , 10/24/16) Objective Last 24 Hour Vital Signs Date Time Temp Pulse Resp B/P (MAP) Pulse Ox O2 Delivery O2 Flow Rate FiO2 04/29/19 09:00 Room Air 04/29/19 08:00 93 Nasal Cannula 2.0 28 04/29/19 00:00 97.6 73 20 127/70 (89) 95 04/28/19 21:12 94 Nasal Cannula 2.0 28 04/28/19 21:00 Nasal Cannula 3.0 04/28/19 20:55 71 127/77 04/28/19 20:00 97.9 71 18 122/77 (92) 90 04/28/19 16:00 98.6 60 19 107/77 (87) 97 Intake and Output 04/28/19 04/29/19 19:00 07:00 Intake Total 1280 ml Output Total 3150 ml 850 ml Balance -3150 ml 430 ml Intake Oral 1280 ml Output Urine Total 3150 ml 850 ml # Bowel Movements 1 General Appearance: WD/WN HEENT: normocephalic Respiratory/Chest: respiratory distress, accessory muscle use Cardiovascular: normal peripheral pulses, regular rhythm Abdomen: normal bowel sounds, soft, non tender Extremities: no cyanosis, no clubbing Skin: no rash Neurologic/Psychiatric: steam room attendant II-XII grossly normal Laboratory Tests 04/29/19 05:10: White Blood Count 6.2, Red Blood Count 4.09L, Hemoglobin 12.0L, Hematocrit 37.1L , Mean Corpuscular Volume 91, Mean Corpuscular Hemoglobin 29.3, Mean Corpuscular Hemoglobin Concent 32.3, Red Cell Distribution Width 14.2, Platelet Count 196, Mean Platelet Volume 7.7, Neutrophils (%) (Auto) 60.6, Lymphocytes (% ) (Auto) 21.4, Monocytes (%) (Auto) 8.7, Eosinophils (%) (Auto) 8.5H, Basophils (%) (Auto) 0.8, Sodium Level 140, Potassium Level 3.9, Chloride Level 101, Carbon Dioxide Level 35H, Anion Gap 4L, Blood Urea Nitrogen 15, Creatinine 1.0, Estimat Glomerular Filtration Rate > 60, Glucose Level 132H, Calcium Level 9.1, Iron Level 41L, Total Iron Binding Capacity 358, Percent Iron Saturation 11L, Unsaturated Iron Binding 317, Carcinoembryonic Antigen [Pending], Vitamin B12 Level 693, Folate 19.1 Current Medications Medications (Trade) Dose Ordered Sig/Dejon Route PRN Reason Start Time Stop Time Status Last Admin Dose Admin Acetaminophen (Tylenol) 650 mg Q4H PRN ORAL fever 04/27/19 15:43 05/27/19 15:42 04/29/19 01:52 Acetaminophen/ Hydrocodone Bitart ([place] 5/325) 1 tab Q6H PRN ORAL Severe Pain (Pain Scale 7-10) 04/27/19 15:45 05/04/19 15:44 04/29/19 12:24 Albuterol/ Ipratropium (Albuterol/ Ipratropium) 3 ml Q4H PRN HHN Shortness of Breath 04/27/19 15:44 05/02/19 15:43 Apixaban (Eliquis) 5 mg BID ORAL 04/27/19 18:00 05/09/19 08:59 04/28/19 18:21 Carvedilol (Coreg) 6.25 mg EVERY 12 HOURS ORAL 04/27/19 21:00 05/09/19 08:59 04/28/19 20:55 Clonidine HCl (Catapres Tab) 0.1 mg Q4H PRN ORAL sbp more than 160 04/27/19 15:43 05/27/19 15:42 Clotrimazole (Lotrimin) 1 applic THREE TIMES A DAY TOPIC 04/27/19 18:00 05/20/19 12:59 04/27/19 17:30 Dextrose (Dextrose 50%) 25 ml Q30M PRN IV Hypoglycemia 04/27/19 16:00 05/09/19 07:29 Dextrose (Dextrose 50%) 50 ml Q30M PRN IV Hypoglycemia 04/27/19 16:00 05/09/19 07:29 Ertapenem 1 gm/ Sodium Chloride 55 ml @ 110 mls/hr Q24H IVPB 04/29/19 12:30 05/04/19 12:29 UNV Escitalopram Oxalate (Lexapro) 10 mg DAILY ORAL 04/28/19 09:00 05/27/19 08:59 04/28/19 09:18 Insulin Aspart (NovoLOG) BEFORE MEALS AND HS SUBQ 04/27/19 16:30 05/09/19 13:29 04/28/19 21:06 Insulin Aspart (NovoLOG) 10 units NOVOTIAC SUBQ 04/27/19 16:50 05/10/19 07:29 04/29/19 07:06 Insulin Detemir (Levemir) 16 units QHS SUBQ 04/28/19 21:00 05/09/19 20:59 04/28/19 21:05 Levothyroxine Sodium (Synthroid) 75 mcg ACBREAKFAST ORAL 04/28/19 06:30 05/27/19 06:29 04/29/19 07:03 Levothyroxine Sodium (Synthroid) 100 mcg ACBREAKFAST ORAL 04/28/19 06:30 05/09/19 06:29 04/29/19 07:03 Methylprednisolone Sodium Succinate (Solu-MEDROL) 60 mg DAILY IVP 04/30/19 09:00 05/30/19 08:59 UNV Nitroglycerin (Ntg) 0.4 mg Q5M X 3 DOSES PRN SL Prn Chest Pain 04/27/19 15:45 05/08/19 21:29 Ondansetron HCl (Zofran) 4 mg Q6H PRN IVP Nausea & Vomiting 04/27/19 15:46 05/27/19 15:45 Oxymetazoline HCl (Afrin Nasal [place]) 1 spray Q6H PRN NASAL nasal congestion 04/27/19 17:00 05/27/19 16:59 04/28/19 09:18 Promethazine HCl/ Codeine (Phenergan with Codeine) 5 ml Q6H PRN ORAL cough 04/27/19 15:46 05/27/19 15:45 04/29/19 01:51 Tamsulosin HCl (Flomax) 0.4 mg BEDTIME ORAL 04/27/19 21:00 05/09/19 20:59 04/28/19 20:55 Vancomycin HCl (Vanco rx to dose) 1 ea DAILY PRN MISC Per rx protocol 04/29/19 12:30 05/29/19 12:29 Goldie Perez MD Apr 29, 2019 12:29
[2019-04-29] MEDS ORDERED: Ertapenem 1 GM in NS 55 ML IVPB SCH (13:30)
[2019-04-29] MEDS ORDERED: Vancomycin 1.5gm/NS Premix IVPB ONE (14:00)
--- NOTE | 2019-04-29 14:53 | Diagnostic Imaging Report ---
Indication: Shortness of breath Technique: One view of the chest Comparison: 04/27/2019 Findings: There is bilateral interstitial congestion again demonstrated, appearing unchanged. No focal airspace consolidation. There is some atelectasis at the left lung base. Pleural spaces are clear. The heart is mildly enlarged. There is a left chest unifocal pacemaker again noted. Impression: Unchanged, over one day, findings as above.
[2019-04-29] MEDS ORDERED: Nitroglycerin Subl 0.4mg tab SL PRN (15:15)
[2019-04-29] MEDS ORDERED: Albuterol/Ipratropium 3ml neb HHN PRN (15:45)
[2019-04-29] MEDS ORDERED: Promethazine/Codeine 5ml UD ORAL PRN (16:00)
[2019-04-29] MEDS ORDERED: Vancomycin 1.5gm/NS Premix 275 ML IVPB ONE (16:00)
[2019-04-29] MEDS ORDERED: Oxymetazoline 0.05% Na Spray 30ml NASAL PRN (16:00)
[2019-04-29] MEDS ORDERED: HYDROcodone/Acetamin 5/325 tab ORAL PRN (18:30)
--- NOTE | 2019-04-29 19:04 | Internal Med Progress Note ---
Subjective Date of Service: Apr 29, 2019 Physician Name BrittneyIdris Attending Physician Jewel Giraldo MD Current Medications Medications (Trade) Dose Ordered Sig/Dejon Route PRN Reason Start Time Stop Time Status Last Admin Dose Admin Acetaminophen (Tylenol) 650 mg Q4H PRN ORAL fever 04/29/19 15:45 05/27/19 15:42 Acetaminophen/ Hydrocodone Bitart ([place] 5/325) 1 tab Q6H PRN ORAL Severe Pain (Pain Scale 7-10) 04/29/19 18:30 05/04/19 18:29 Albuterol/ Ipratropium (Albuterol/ Ipratropium) 3 ml Q4H PRN HHN Shortness of Breath 04/29/19 15:45 05/02/19 15:43 Apixaban (Eliquis) 5 mg BID ORAL 04/29/19 18:00 05/09/19 08:59 04/29/19 18:05 Carvedilol (Coreg) 6.25 mg EVERY 12 HOURS ORAL 04/29/19 21:00 05/09/19 08:59 Clonidine HCl (Catapres Tab) 0.1 mg Q4H PRN ORAL sbp more than 160 04/29/19 15:45 05/27/19 15:42 Clotrimazole (Lotrimin) 1 applic THREE TIMES A DAY TOPIC 04/29/19 18:00 05/20/19 12:59 Dextrose (Dextrose 50%) 25 ml Q30M PRN IV Hypoglycemia 04/29/19 15:30 05/09/19 15:29 Dextrose (Dextrose 50%) 50 ml Q30M PRN IV Hypoglycemia 04/29/19 15:30 05/09/19 07:29 Ertapenem 1 gm/ Sodium Chloride 55 ml @ 110 mls/hr Q24H IVPB 04/30/19 13:30 05/04/19 13:29 Escitalopram Oxalate (Lexapro) 10 mg DAILY ORAL 04/30/19 09:00 05/27/19 08:59 Insulin Aspart (NovoLOG) BEFORE MEALS AND HS SUBQ 04/29/19 16:30 05/09/19 13:29 04/29/19 16:54 Insulin Aspart (NovoLOG) 10 units NOVOTIAC SUBQ 04/29/19 16:50 05/10/19 07:29 04/29/19 16:55 Insulin Detemir (Levemir) 16 units QHS SUBQ 04/29/19 21:00 05/09/19 20:59 Levothyroxine Sodium (Synthroid) 75 mcg ACBREAKFAST ORAL 04/30/19 06:30 05/27/19 06:29 Levothyroxine Sodium (Synthroid) 100 mcg ACBREAKFAST ORAL 04/30/19 06:30 05/09/19 06:29 Methylprednisolone Sodium Succinate (Solu-MEDROL) 60 mg DAILY IVP 04/30/19 09:00 05/30/19 08:59 Nitroglycerin (Ntg) 0.4 mg Q5M X 3 DOSES PRN SL Prn Chest Pain 04/29/19 15:15 05/08/19 21:29 Ondansetron HCl (Zofran) 4 mg Q6H PRN IVP Nausea & Vomiting 04/29/19 15:30 05/27/19 15:29 Oxymetazoline HCl (Afrin Nasal [place]) 1 spray Q6H PRN NASAL nasal congestion 04/29/19 16:00 05/27/19 15:59 Promethazine HCl/ Codeine (Phenergan with Codeine) 5 ml Q6H PRN ORAL cough 04/29/19 16:00 05/27/19 15:45 Tamsulosin HCl (Flomax) 0.4 mg BEDTIME ORAL 04/29/19 21:00 05/09/19 20:59 Vancomycin HCl (Vanco rx to dose) 1 ea DAILY PRN MISC Per rx protocol 04/30/19 09:00 05/29/19 12:29 Vancomycin HCl 1 gm/Dextrose 275 ml @ 183.708 mls/hr Q12H IVPB 04/30/19 04:00 05/05/19 03:59 Allergies: Coded Allergies: No Known Allergies (Unverified , 10/24/16) ROS Limited/Unobtainable: Yes Subjective 73 YO M admitted with COPD exacerbation. Now respiratory failure and pneumonia. Cover for Int Med-DR Giraldo. CALVIN Objective Last Vital Signs Date Time Temp Pulse Resp B/P (MAP) Pulse Ox O2 Delivery O2 Flow Rate FiO2 04/29/19 15:36 75 04/29/19 09:00 Room Air 04/29/19 08:00 93 2.0 28 04/29/19 00:00 97.6 20 127/70 (89) Laboratory Tests Test 04/29/19 05:10 White Blood Count 6.2 K/UL (4.8-10.8) Red Blood Count 4.09 M/UL (4.70-6.10) L Hemoglobin 12.0 G/DL (14.2-18.0) L Hematocrit 37.1 % (42.0-52.0) L Mean Corpuscular Volume 91 FL (80-99) Mean Corpuscular Hemoglobin 29.3 PG (27.0-31.0) Mean Corpuscular Hemoglobin Concent 32.3 G/DL (32.0-36.0) Red Cell Distribution Width 14.2 % (11.6-14.8) Platelet Count 196 K/UL (150-450) Mean Platelet Volume 7.7 FL (6.5-10.1) Neutrophils (%) (Auto) 60.6 % (45.0-75.0) Lymphocytes (%) (Auto) 21.4 % (20.0-45.0) Monocytes (%) (Auto) 8.7 % (1.0-10.0) Eosinophils (%) (Auto) 8.5 % (0.0-3.0) H Basophils (%) (Auto) 0.8 % (0.0-2.0) Sodium Level 140 MMOL/L (136-145) Potassium Level 3.9 MMOL/L (3.5-5.1) Chloride Level 101 MMOL/L (98-107) Carbon Dioxide Level 35 MMOL/L (21-32) H Anion Gap 4 mmol/L (5-15) L Blood Urea Nitrogen 15 mg/dL (7-18) Creatinine 1.0 MG/DL (0.55-1.30) Estimat Glomerular Filtration Rate > 60 mL/min (>60) Glucose Level 132 MG/DL (74-106) H Calcium Level 9.1 MG/DL (8.5-10.1) Iron Level 41 ug/dL (50-175) L Total Iron Binding Capacity 358 ug/dL (250-450) Percent Iron Saturation 11 % (15-50) L Unsaturated Iron Binding 317 ug/dL (112-346) Carcinoembryonic Antigen Pending Vitamin B12 Level 693 PG/ML (193-986) Folate 19.1 NG/ML (8.6-58.9) Intake and Output 04/28/19 04/29/19 19:00 07:00 Intake Total 1280 ml Output Total 3150 ml 850 ml Balance -3150 ml 430 ml Intake Oral 1280 ml Output Urine Total 3150 ml 850 ml # Bowel Movements 1 Objective PHYSICAL EXAMINATION: GENERAL: The patient is awake, responsive, no acute distress. HEAD AND NECK: Pupils are equal and reactive to light. Extraocular muscles intact. Neck was supple. No JVD. LUNGS: BIPAP;The patient has expiratory wheezes noted. Tachypneic. No rhonchi was noted. HEART: S1, S2. Irregular. No murmur. The patient has a pacemaker in the left-sided chest wall. ABDOMEN: Soft, nondistended, nontender. Mildly obese. EXTREMITIES: No cyanosis, clubbing, edema. NEUROLOGIC: Cranial nerves II through XII grossly normal. Motor is 5/5 in all extremities. Gait is intact. GENITOURINARY: It was noted the patient has a [place] catheter. RECTAL: Refused and deferred. PSYCHIATRIC: Mood and affect is intact. Assessment/Plan Assessment/Plan ASSESSMENT: 1. Acute hypoxemic respiratory failure, most likely secondary to acute COPD exacerbation. 2. Acute COPD exacerbation. 3. Pneumonia. 4. Sick sinus syndrome status post pacemaker. 5. Diabetes type 2. 6. Prostate cancer. 7. Hyperkalemia. 8. Insulin induced hyperglycemia. 9. Prostate enlargement. 10. Leukocytosis 11. RBBB PLAN: 1. Med/Surg 2. D/C Solu-Medrol IV Per Pulmonary consult=Dr. Obrien. 3. Endocrinology=Dr To. Monitor blood glucose level closely. 4. antibiotic=Zosyn. ID=Dr Villa 5. Code status is Full Code. DVT prophylaxis, he is on Eliquis. Idris Lugo MD Apr 29, 2019 19:04
[2019-04-29 20:00] VITALS: BP 120/81
[2019-04-29] MEDS ORDERED: Levemir Flexpen SUBQ SCH (21:00)
[2019-04-29] MEDS: Tamsulosin 0.4mg cap ORAL SCH (21:14)
[2019-04-30] VITALS: BP 118/79
[2019-04-30] MEDS ORDERED: Vancomycin 1gm/D5W 275ml IVPB SCH ×2 (02:00)
[2019-04-30] MEDS: Vancomycin 1 GM in D5W 275 ML IVPB SCH ×2 (03:16→15:53)
[2019-04-30 04:00] VITALS: BP 132/74
[2019-04-30 05:35] LABS: BASOPHILS % (AUTO) 1.3 % (0.0-2.0); EOSINOPHILS % (AUTO) 8.1 % (0.0-3.0); HEMATOCRIT 39.2 % (42.0-52.0); HEMOGLOBIN 12.5 G/DL (14.2-18.0); LYMPHOCYTES % (AUTO) 22.5 % (20.0-45.0); MEAN CORPUSCULAR VOLUME 91 FL (80-99); MONOCYTES % (AUTO) 6.8 % (1.0-10.0); NEUTROPHILS % (AUTO) 61.3 % (45.0-75.0); PLATELET COUNT 220 K/UL (150-450); WHITE BLOOD COUNT 6.6 K/UL (4.8-10.8)
[2019-04-30] MEDS: NovoLOG Insulin Flexpen SUBQ SCH ×7 (05:51→21:39)
[2019-04-30 06:25] LABS: ALANINE AMINOTRANSFERASE 32 U/L (12-78); ALBUMIN 2.8 G/DL (3.4-5.0); ALBUMIN/GLOBULIN RATIO 0.7 (1.0-2.7); ALKALINE PHOSPHATASE 78 U/L (46-116); ANION GAP 9 mmol/L (5-15); ASPARTATE AMINO TRANSFERASE 18 U/L (15-37); BILIRUBIN,TOTAL 0.3 MG/DL (0.2-1.0); BLOOD UREA NITROGEN 16 mg/dL (7-18); CALCIUM 9.1 MG/DL (8.5-10.1); CARBON DIOXIDE 30 MMOL/L (21-32); CHLORIDE 103 MMOL/L (98-107); FERRITIN 41 NG/ML (8-388); POTASSIUM 4.5 MMOL/L (3.5-5.1); SODIUM 142 MMOL/L (136-145)
--- NOTE | 2019-04-30 07:06 | General Progress Note ---
Assessment/Plan Problem List: (1) COPD exacerbation ICD Codes: J44.1 - Chronic obstructive pulmonary disease with (acute) exacerbation SNOMED: 461048358 (2) Respiratory failure with hypoxia ICD Codes: J96.91 - Respiratory failure, unspecified with hypoxia SNOMED: 05912083091585252 (3) Diabetes mellitus ICD Codes: E11.9 - Type 2 diabetes mellitus without complications SNOMED: 90683784 (4) Pacemaker ICD Codes: Z95.0 - Presence of cardiac pacemaker SNOMED: 075270324 (5) Prostate cancer ICD Codes: C61 - Malignant neoplasm of prostate SNOMED: 676088862 (6) Hypothyroid ICD Codes: E03.9 - Hypothyroidism, unspecified SNOMED: 39238334 Status: stable Assessment/Plan: increase Levemir to 20 units qhs continue Novolog 10 units ac tid continue NISS ac / hs continue Levothyroxine 175 mcg qam repeat thyroid function in 3 weeks Subjective Allergies: Coded Allergies: No Known Allergies (Unverified , 10/24/16) Subjective events noted glucose values elevated on IVSM Item Value Date Time Bedside Blood Glucose 222 mg/dl H 04/30/19 0630 Bedside Blood Glucose 104 mg/dl 04/29/19 2115 Bedside Blood Glucose 146 mg/dl H 04/29/19 1655 Bedside Blood Glucose 131 mg/dl H 04/29/19 0706 Bedside Blood Glucose 131 mg/dl H 04/29/19 0630 Objective Last 24 Hour Vital Signs Date Time Temp Pulse Resp B/P (MAP) Pulse Ox O2 Delivery O2 Flow Rate FiO2 04/30/19 04:00 97.8 72 21 132/74 (93) 98 04/30/19 04:00 Bi-pap 04/30/19 04:00 71 04/30/19 02:31 88 16 97 30 04/30/19 00:28 92 16 95 30 04/30/19 00:00 73 04/30/19 00:00 Bi-pap 04/30/19 00:00 98.1 74 20 118/79 (92) 98 04/29/19 21:46 94 Nasal Cannula 2.0 28 04/29/19 21:14 80 128/73 04/29/19 20:00 72 04/29/19 20:00 98.4 74 21 120/81 (94) 98 2/20/20 20:00 Bi-pap 04/29/19 15:36 75 04/29/19 09:00 Room Air 04/29/19 08:00 93 Nasal Cannula 2.0 28 Intake and Output 04/29/19 04/30/19 19:00 07:00 Intake Total 875.0 ml 275.000 ml Output Total 850 ml 1200 ml Balance 25.0 ml -925.000 ml Intake Oral 600 ml IV Total 275.0 ml 275.000 ml Output Urine Total 850 ml 1200 ml # Voids 1 Laboratory Tests 04/30/19 03:05: White Blood Count 6.6, Red Blood Count 4.30L, Hemoglobin 12.5L, Hematocrit 39.2L , Mean Corpuscular Volume 91, Mean Corpuscular Hemoglobin 29.1, Mean Corpuscular Hemoglobin Concent 32.0, Red Cell Distribution Width 14.0, Platelet Count 220, Mean Platelet Volume 6.3L, Neutrophils (%) (Auto) 61.3, Lymphocytes ( %) (Auto) 22.5, Monocytes (%) (Auto) 6.8, Eosinophils (%) (Auto) 8.1H, Basophils (%) (Auto) 1.3, Sodium Level 142, Potassium Level 4.5, Chloride Level 103, Carbon Dioxide Level 30, Anion Gap 9, Blood Urea Nitrogen 16, Creatinine 1.0, Estimat Glomerular Filtration Rate > 60, Glucose Level 146H, Calcium Level 9.1, Ferritin 41, Total Bilirubin 0.3, Aspartate Amino Transf (AST/SGOT) 18, Alanine Aminotransferase (ALT/SGPT) 32, Alkaline Phosphatase 78, Pro-B-Type Natriuretic Peptide 592H, Total Protein 6.9, Albumin 2.8L, Globulin 4.1, Albumin /Globulin Ratio 0.7L Height (Feet): 6 Height (Inches): 0.00 Weight (Pounds): 193 General Appearance: no apparent distress Neck: normal alignment Cardiovascular: normal rate Respiratory/Chest: expiratory wheezing Abdomen: normal bowel sounds Objective Current Medications Medications (Trade) Dose Ordered Sig/Dejon Route PRN Reason Start Time Stop Time Status Last Admin Dose Admin Acetaminophen (Tylenol) 650 mg Q4H PRN ORAL fever 04/29/19 15:45 05/27/19 15:42 Acetaminophen/ Hydrocodone Bitart ([place] 5/325) 1 tab Q6H PRN ORAL Severe Pain (Pain Scale 7-10) 04/29/19 18:30 05/04/19 18:29 Albuterol/ Ipratropium (Albuterol/ Ipratropium) 3 ml Q4H PRN HHN Shortness of Breath 04/29/19 15:45 05/02/19 15:43 Apixaban (Eliquis) 5 mg BID ORAL 04/29/19 18:00 05/09/19 08:59 04/29/19 18:05 Carvedilol (Coreg) 6.25 mg EVERY 12 HOURS ORAL 04/29/19 21:00 05/09/19 08:59 04/29/19 21:14 Clonidine HCl (Catapres Tab) 0.1 mg Q4H PRN ORAL sbp more than 160 04/29/19 15:45 05/27/19 15:42 Clotrimazole (Lotrimin) 1 applic THREE TIMES A DAY TOPIC 04/29/19 18:00 05/20/19 12:59 Dextrose (Dextrose 50%) 25 ml Q30M PRN IV Hypoglycemia 04/29/19 15:30 05/09/19 15:29 Dextrose (Dextrose 50%) 50 ml Q30M PRN IV Hypoglycemia 04/29/19 15:30 05/09/19 07:29 Ertapenem 1 gm/ Sodium Chloride 55 ml @ 110 mls/hr Q24H IVPB 04/30/19 13:30 05/04/19 13:29 Escitalopram Oxalate (Lexapro) 10 mg DAILY ORAL 04/30/19 09:00 05/27/19 08:59 Insulin Aspart (NovoLOG) BEFORE MEALS AND HS SUBQ 04/29/19 16:30 05/09/19 13:29 04/30/19 05:51 Insulin Aspart (NovoLOG) 10 units NOVOTIAC SUBQ 04/29/19 16:50 05/10/19 07:29 04/30/19 05:52 Insulin Detemir (Levemir) 16 units QHS SUBQ 04/29/19 21:00 05/09/19 20:59 04/29/19 21:15 Levothyroxine Sodium (Synthroid) 75 mcg ACBREAKFAST ORAL 04/30/19 06:30 05/27/19 06:29 04/30/19 05:51 Levothyroxine Sodium (Synthroid) 100 mcg ACBREAKFAST ORAL 04/30/19 06:30 05/09/19 06:29 04/30/19 05:50 Methylprednisolone Sodium Succinate (Solu-MEDROL) 60 mg DAILY IVP 04/30/19 09:00 05/30/19 08:59 Nitroglycerin (Ntg) 0.4 mg Q5M X 3 DOSES PRN SL Prn Chest Pain 04/29/19 15:15 05/08/19 21:29 Ondansetron HCl (Zofran) 4 mg Q6H PRN IVP Nausea & Vomiting 04/29/19 15:30 05/27/19 15:29 Oxymetazoline HCl (Afrin Nasal [place]) 1 spray Q6H PRN NASAL nasal congestion 04/29/19 16:00 05/27/19 15:59 Promethazine HCl/ Codeine (Phenergan with Codeine) 5 ml Q6H PRN ORAL cough 04/29/19 16:00 05/27/19 15:45 Tamsulosin HCl (Flomax) 0.4 mg BEDTIME ORAL 04/29/19 21:00 05/09/19 20:59 04/29/19 21:14 Vancomycin HCl (Vanco rx to dose) 1 ea DAILY PRN MISC Per rx protocol 04/30/19 09:00 05/29/19 12:29 Vancomycin HCl 1 gm/Dextrose 275 ml @ 183.708 mls/hr Q12H IVPB 04/30/19 04:00 05/05/19 03:59 04/30/19 03:16 Geovanni To MD Apr 30, 2019 07:06
[2019-04-30 08:00] VITALS: BP 120/77
[2019-04-30] MEDS: Solu-MEDROL 125mg Inj IVP SCH (08:24)
[2019-04-30] MEDS: Eliquis 5mg tablet ORAL SCH ×2 (08:36→18:24)
[2019-04-30] MEDS: Carvedilol 6.25mg Tab ORAL SCH ×2 (08:48→21:31)
[2019-04-30] MEDS ORDERED: Solu-MEDROL 125mg Inj IVP SCH (09:00)
--- NOTE | 2019-04-30 10:23 | General Progress Note ---
Assessment/Plan Status: stable Assessment/Plan: Assessment/Plan Problems: (1) Diabetes mellitus ICD Codes: E11.9 - Type 2 diabetes mellitus without complications SNOMED: 16780496 (2) Anemia ICD Codes: D64.9 - Anemia, unspecified Assessment/Plan This is a 73-year-old male with COPD exacerbation and new-onset diabetes given hemoglobin A1c is high. recommend endoscopy and colonoscopy given anemia at some point, but given the recent COPD exacerbation and still currently recovering from that, we will defer. anemia work up check ferritin OB stool r/o GI bleed monitor H&H, prn transfusions bowel regimen ppi fu labs iv iron will consider GI procedures if emergent, otherwise outpatient Subjective ROS Limited/Unobtainable: No Allergies: Coded Allergies: No Known Allergies (Unverified , 10/24/16) Objective Last 24 Hour Vital Signs Date Time Temp Pulse Resp B/P (MAP) Pulse Ox O2 Delivery O2 Flow Rate FiO2 04/30/19 08:48 72 120/77 04/30/19 08:00 Bi-pap 04/30/19 08:00 97.3 72 20 120/77 (91) 98 04/30/19 08:00 71 04/30/19 07:10 94 Nasal Cannula 2.0 28 04/30/19 04:00 97.8 72 21 132/74 (93) 98 04/30/19 04:00 Bi-pap 04/30/19 04:00 71 04/30/19 02:31 88 16 97 30 04/30/19 00:28 92 16 95 30 04/30/19 00:00 73 04/30/19 00:00 Bi-pap 04/30/19 00:00 98.1 74 20 118/79 (92) 98 04/29/19 21:46 94 Nasal Cannula 2.0 28 04/29/19 21:14 80 128/73 04/29/19 20:00 72 04/29/19 20:00 98.4 74 21 120/81 (94) 98 04/29/19 20:00 Bi-pap 04/29/19 15:36 75 Intake and Output 04/29/19 04/30/19 19:00 07:00 Intake Total 875.0 ml 275.000 ml Output Total 850 ml 1200 ml Balance 25.0 ml -925.000 ml Intake Oral 600 ml IV Total 275.0 ml 275.000 ml Output Urine Total 850 ml 1200 ml # Voids 1 Laboratory Tests 04/30/19 03:05: White Blood Count 6.6, Red Blood Count 4.30L, Hemoglobin 12.5L, Hematocrit 39.2L , Mean Corpuscular Volume 91, Mean Corpuscular Hemoglobin 29.1, Mean Corpuscular Hemoglobin Concent 32.0, Red Cell Distribution Width 14.0, Platelet Count 220, Mean Platelet Volume 6.3L, Neutrophils (%) (Auto) 61.3, Lymphocytes ( %) (Auto) 22.5, Monocytes (%) (Auto) 6.8, Eosinophils (%) (Auto) 8.1H, Basophils (%) (Auto) 1.3, Sodium Level 142, Potassium Level 4.5, Chloride Level 103, Carbon Dioxide Level 30, Anion Gap 9, Blood Urea Nitrogen 16, Creatinine 1.0, Estimat Glomerular Filtration Rate > 60, Glucose Level 146H, Calcium Level 9.1, Ferritin 41, Total Bilirubin 0.3, Aspartate Amino Transf (AST/SGOT) 18, Alanine Aminotransferase (ALT/SGPT) 32, Alkaline Phosphatase 78, Pro-B-Type Natriuretic Peptide 592H, Total Protein 6.9, Albumin 2.8L, Globulin 4.1, Albumin /Globulin Ratio 0.7L Height (Feet): 6 Height (Inches): 0.00 Weight (Pounds): 193 General Appearance: alert EENT: normal ENT inspection Neck: supple Cardiovascular: normal rate Respiratory/Chest: decreased breath sounds Abdomen: normal bowel sounds, non tender, soft Extremities: non-tender Christiano La MD Apr 30, 2019 10:23
--- NOTE | 2019-04-30 11:55 | Infectious Diseases Prog Note ---
Assessment/Plan Assessment/Plan Assessment: Acute hypoxic respiratory failure , back on bipap COPD exacerbation CHF exacerbation PNA -04/29 CXRLThere is bilateral interstitial congestion again demonstrated, appearing unchanged. No focal airspace consolidation. There is some atelectasis at the left lung base. -04/27 CXR: Borderline cardiomegaly. Questionable mild interstitial congestion , new or increased from previous study if real. -04/21 CTA chest:Somewhat limited exam, due to motion artifact. No definite evidence of pulmonary embolus or other acute thoracic vascular pathology. Borderline cardiomegaly. Diffuse bilateral pulmonary parenchymal groundglass opacity. Interspersed small bullae digestive this is due to COPD changes, but could also indicate a component of pulmonary edema. Considerable consolidation in the right lower lobe, likely pneumonia. Less extensive consolidation and atelectasis is seen at the left lung base. Pacemaker, degenerative spondylosis incidentally noted sp cx normal resp michael -04/19 CXR: Mild pulmonary vascular congestion -04/16 CXR: No acute disease -04/13 CXR: Suspected mild pulmonary vascular congestion. Correlate clinically -04/08 CXR: Mild pulmonary vascular congestion suspected Afebrile Leukocytosis,(s/p high dose steroids), SP KAYLAN, improving Hyperglycemia COPD CAD CHF prostate cancer s/p PPM former smoker Plan: -ON IV Vancomycin and Ertapenem #2 per pulm -await sputum cx -04/28 SP Zosyn #8 -04/15 SP Levaquin #7 -04/08 SP Ceftriaxone x1, Azithromycin x1 -Monitor CBC/CMP, temperatures -aspiration precautions -sp cx Thank you for this consultation. Will continue to follow along with you. Subjective Allergies: Coded Allergies: No Known Allergies (Unverified , 10/24/16) Subjective afebrile no leukocytosis still productive cough back on bipap Objective Vital Signs Last 24 Hour Vital Signs Date Time Temp Pulse Resp B/P (MAP) Pulse Ox O2 Delivery O2 Flow Rate FiO2 04/30/19 08:48 72 120/77 04/30/19 08:00 Bi-pap 04/30/19 08:00 97.3 72 20 120/77 (91) 98 04/30/19 08:00 71 04/30/19 07:10 94 Nasal Cannula 2.0 28 04/30/19 04:00 97.8 72 21 132/74 (93) 98 04/30/19 04:00 Bi-pap 04/30/19 04:00 71 04/30/19 02:31 88 16 97 30 04/30/19 00:28 92 16 95 30 04/30/19 00:00 73 04/30/19 00:00 Bi-pap 04/30/19 00:00 98.1 74 20 118/79 (92) 98 04/29/19 21:46 94 Nasal Cannula 2.0 28 04/29/19 21:14 80 128/73 04/29/19 20:00 72 04/29/19 20:00 98.4 74 21 120/81 (94) 98 04/29/19 20:00 Bi-pap 04/29/19 15:36 75 Height (Feet): 6 Height (Inches): 0.00 Weight (Pounds): 193 Objective General Appearance: no distress,confused HEENT: normocephalic, atraumatic Neck: supple Respiratory/Chest: chest wall non-tender, bibasilar ronchi Cardiovascular/Chest: no murmurs Extremities: normal range of motion Laboratory Tests Test 04/30/19 03:05 White Blood Count 6.6 K/UL (4.8-10.8) Red Blood Count 4.30 M/UL (4.70-6.10) L Hemoglobin 12.5 G/DL (14.2-18.0) L Hematocrit 39.2 % (42.0-52.0) L Mean Corpuscular Volume 91 FL (80-99) Mean Corpuscular Hemoglobin 29.1 PG (27.0-31.0) Mean Corpuscular Hemoglobin Concent 32.0 G/DL (32.0-36.0) Red Cell Distribution Width 14.0 % (11.6-14.8) Platelet Count 220 K/UL (150-450) Mean Platelet Volume 6.3 FL (6.5-10.1) L Neutrophils (%) (Auto) 61.3 % (45.0-75.0) Lymphocytes (%) (Auto) 22.5 % (20.0-45.0) Monocytes (%) (Auto) 6.8 % (1.0-10.0) Eosinophils (%) (Auto) 8.1 % (0.0-3.0) H Basophils (%) (Auto) 1.3 % (0.0-2.0) Sodium Level 142 MMOL/L (136-145) Potassium Level 4.5 MMOL/L (3.5-5.1) Chloride Level 103 MMOL/L (98-107) Carbon Dioxide Level 30 MMOL/L (21-32) Anion Gap 9 mmol/L (5-15) Blood Urea Nitrogen 16 mg/dL (7-18) Creatinine 1.0 MG/DL (0.55-1.30) Estimat Glomerular Filtration Rate > 60 mL/min (>60) Glucose Level 146 MG/DL (74-106) H Calcium Level 9.1 MG/DL (8.5-10.1) Ferritin 41 NG/ML (8-388) Total Bilirubin 0.3 MG/DL (0.2-1.0) Aspartate Amino Transf (AST/SGOT) 18 U/L (15-37) Alanine Aminotransferase (ALT/SGPT) 32 U/L (12-78) Alkaline Phosphatase 78 U/L (46-116) Pro-B-Type Natriuretic Peptide 592 pg/mL (0-125) H Total Protein 6.9 G/DL (6.4-8.2) Albumin 2.8 G/DL (3.4-5.0) L Globulin 4.1 g/dL Albumin/Globulin Ratio 0.7 (1.0-2.7) L Current Medications Medications (Trade) Dose Ordered Sig/Dejon Route PRN Reason Start Time Stop Time Status Last Admin Dose Admin Acetaminophen (Tylenol) 650 mg Q4H PRN ORAL fever 04/29/19 15:45 05/27/19 15:42 Acetaminophen/ Hydrocodone Bitart ([place] 5/325) 1 tab Q6H PRN ORAL Severe Pain (Pain Scale 7-10) 04/29/19 18:30 05/04/19 18:29 Albuterol/ Ipratropium (Albuterol/ Ipratropium) 3 ml Q4H PRN HHN Shortness of Breath 04/29/19 15:45 05/02/19 15:43 Apixaban (Eliquis) 5 mg BID ORAL 04/29/19 18:00 05/09/19 08:59 04/30/19 08:36 Carvedilol (Coreg) 6.25 mg EVERY 12 HOURS ORAL 04/29/19 21:00 05/09/19 08:59 04/30/19 08:48 Clonidine HCl (Catapres Tab) 0.1 mg Q4H PRN ORAL sbp more than 160 04/29/19 15:45 05/27/19 15:42 Clotrimazole (Lotrimin) 1 applic THREE TIMES A DAY TOPIC 04/29/19 18:00 05/20/19 12:59 Dextrose (Dextrose 50%) 25 ml Q30M PRN IV Hypoglycemia 04/29/19 15:30 05/09/19 15:29 Dextrose (Dextrose 50%) 50 ml Q30M PRN IV Hypoglycemia 04/29/19 15:30 05/09/19 07:29 Ertapenem 1 gm/ Sodium Chloride 55 ml @ 110 mls/hr Q24H IVPB 04/30/19 13:30 05/04/19 13:29 Escitalopram Oxalate (Lexapro) 10 mg DAILY ORAL 04/30/19 09:00 05/27/19 08:59 04/30/19 08:47 Insulin Aspart (NovoLOG) BEFORE MEALS AND HS SUBQ 04/29/19 16:30 05/09/19 13:29 04/30/19 11:35 Insulin Aspart (NovoLOG) 10 units NOVOTIAC SUBQ 04/29/19 16:50 05/10/19 07:29 04/30/19 11:34 Insulin Detemir (Levemir) 20 units QHS SUBQ 04/30/19 21:00 05/09/19 20:59 Iron Sucrose 100 mg/Sodium Chloride 60 ml @ 240 mls/hr BEDTIME IV 04/30/19 21:00 05/04/19 21:14 Levothyroxine Sodium (Synthroid) 75 mcg ACBREAKFAST ORAL 04/30/19 06:30 05/27/19 06:29 04/30/19 05:51 Levothyroxine Sodium (Synthroid) 100 mcg ACBREAKFAST ORAL 04/30/19 06:30 05/09/19 06:29 04/30/19 05:50 Methylprednisolone Sodium Succinate (Solu-MEDROL) 60 mg DAILY IVP 04/30/19 09:00 05/30/19 08:59 04/30/19 08:24 Nitroglycerin (Ntg) 0.4 mg Q5M X 3 DOSES PRN SL Prn Chest Pain 04/29/19 15:15 05/08/19 21:29 Ondansetron HCl (Zofran) 4 mg Q6H PRN IVP Nausea & Vomiting 04/29/19 15:30 05/27/19 15:29 Oxymetazoline HCl (Afrin Nasal [place]) 1 spray Q6H PRN NASAL nasal congestion 04/29/19 16:00 05/27/19 15:59 Promethazine HCl/ Codeine (Phenergan with Codeine) 5 ml Q6H PRN ORAL cough 04/29/19 16:00 05/27/19 15:45 Tamsulosin HCl (Flomax) 0.4 mg BEDTIME ORAL 04/29/19 21:00 05/09/19 20:59 04/29/19 21:14 Vancomycin HCl (Vanco rx to dose) 1 ea DAILY PRN MISC Per rx protocol 04/30/19 09:00 05/29/19 12:29 Vancomycin HCl 1 gm/Dextrose 275 ml @ 183.708 mls/hr Q12H IVPB 04/30/19 04:00 05/05/19 03:59 04/30/19 03:16 An Villa M.D. Apr 30, 2019 11:55
[2019-04-30 12:00] VITALS: BP 114/76
--- NOTE | 2019-04-30 12:32 | Pulmonology Progress Note ---
Assessment/Plan Problems: (1) Nosocomial pneumonia (2) Respiratory failure with hypoxia (3) COPD exacerbation (4) Pneumonia (5) Pacemaker (6) Diabetes mellitus (7) Prostate cancer Assessment/Plan off bipap sputum pending got Zosyn, ceftriaxone, Levofloxacin previously still short of breath, loud rhonchi sliding scale diabetic diet Subjective ROS Limited/Unobtainable: No Interval Events: breathing improved a lot Allergies: Coded Allergies: No Known Allergies (Unverified , 10/24/16) Objective Last 24 Hour Vital Signs Date Time Temp Pulse Resp B/P (MAP) Pulse Ox O2 Delivery O2 Flow Rate FiO2 04/30/19 12:00 97.5 81 20 114/76 (89) 92 04/30/19 12:00 Bi-pap 04/30/19 08:48 72 120/77 04/30/19 08:00 Bi-pap 04/30/19 08:00 97.3 72 20 120/77 (91) 98 04/30/19 08:00 71 04/30/19 07:10 94 Nasal Cannula 2.0 28 04/30/19 04:00 97.8 72 21 132/74 (93) 98 04/30/19 04:00 Bi-pap 04/30/19 04:00 71 04/30/19 02:31 88 16 97 30 04/30/19 00:28 92 16 95 30 04/30/19 00:00 73 04/30/19 00:00 Bi-pap 04/30/19 00:00 98.1 74 20 118/79 (92) 98 04/29/19 21:46 94 Nasal Cannula 2.0 28 04/29/19 21:14 80 128/73 04/29/19 20:00 72 04/29/19 20:00 98.4 74 21 120/81 (94) 98 04/29/19 20:00 Bi-pap 04/29/19 15:36 75 Intake and Output 04/29/19 04/30/19 19:00 07:00 Intake Total 875.0 ml 275.000 ml Output Total 850 ml 1200 ml Balance 25.0 ml -925.000 ml Intake Oral 600 ml IV Total 275.0 ml 275.000 ml Output Urine Total 850 ml 1200 ml # Voids 1 General Appearance: WD/WN HEENT: atraumatic Respiratory/Chest: crackles/rales Cardiovascular: normal peripheral pulses, normal rate Abdomen: normal bowel sounds, soft, non tender Extremities: no cyanosis Skin: no rash 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 Lymphatic: no neck adenopathy Laboratory Tests 04/30/19 03:05: White Blood Count 6.6, Red Blood Count 4.30L, Hemoglobin 12.5L, Hematocrit 39.2L , Mean Corpuscular Volume 91, Mean Corpuscular Hemoglobin 29.1, Mean Corpuscular Hemoglobin Concent 32.0, Red Cell Distribution Width 14.0, Platelet Count 220, Mean Platelet Volume 6.3L, Neutrophils (%) (Auto) 61.3, Lymphocytes ( %) (Auto) 22.5, Monocytes (%) (Auto) 6.8, Eosinophils (%) (Auto) 8.1H, Basophils (%) (Auto) 1.3, Sodium Level 142, Potassium Level 4.5, Chloride Level 103, Carbon Dioxide Level 30, Anion Gap 9, Blood Urea Nitrogen 16, Creatinine 1.0, Estimat Glomerular Filtration Rate > 60, Glucose Level 146H, Calcium Level 9.1, Ferritin 41, Total Bilirubin 0.3, Aspartate Amino Transf (AST/SGOT) 18, Alanine Aminotransferase (ALT/SGPT) 32, Alkaline Phosphatase 78, Pro-B-Type Natriuretic Peptide 592H, Total Protein 6.9, Albumin 2.8L, Globulin 4.1, Albumin /Globulin Ratio 0.7L Current Medications Medications (Trade) Dose Ordered Sig/Dejon Route PRN Reason Start Time Stop Time Status Last Admin Dose Admin Acetaminophen (Tylenol) 650 mg Q4H PRN ORAL fever 04/29/19 15:45 05/27/19 15:42 Acetaminophen/ Hydrocodone Bitart ([place] 5/325) 1 tab Q6H PRN ORAL Severe Pain (Pain Scale 7-10) 04/29/19 18:30 05/04/19 18:29 Albuterol/ Ipratropium (Albuterol/ Ipratropium) 3 ml Q4H PRN HHN Shortness of Breath 04/29/19 15:45 05/02/19 15:43 Apixaban (Eliquis) 5 mg BID ORAL 04/29/19 18:00 05/09/19 08:59 04/30/19 08:36 Carvedilol (Coreg) 6.25 mg EVERY 12 HOURS ORAL 04/29/19 21:00 05/09/19 08:59 04/30/19 08:48 Clonidine HCl (Catapres Tab) 0.1 mg Q4H PRN ORAL sbp more than 160 04/29/19 15:45 05/27/19 15:42 Clotrimazole (Lotrimin) 1 applic THREE TIMES A DAY TOPIC 04/29/19 18:00 05/20/19 12:59 Dextrose (Dextrose 50%) 25 ml Q30M PRN IV Hypoglycemia 04/29/19 15:30 05/09/19 15:29 Dextrose (Dextrose 50%) 50 ml Q30M PRN IV Hypoglycemia 04/29/19 15:30 05/09/19 07:29 Ertapenem 1 gm/ Sodium Chloride 55 ml @ 110 mls/hr Q24H IVPB 04/30/19 13:30 05/04/19 13:29 Escitalopram Oxalate (Lexapro) 10 mg DAILY ORAL 04/30/19 09:00 05/27/19 08:59 04/30/19 08:47 Insulin Aspart (NovoLOG) BEFORE MEALS AND HS SUBQ 04/29/19 16:30 05/09/19 13:29 04/30/19 11:35 Insulin Aspart (NovoLOG) 10 units NOVOTIAC SUBQ 04/29/19 16:50 05/10/19 07:29 04/30/19 11:34 Insulin Detemir (Levemir) 20 units QHS SUBQ 04/30/19 21:00 05/09/19 20:59 Iron Sucrose 100 mg/Sodium Chloride 60 ml @ 240 mls/hr BEDTIME IV 04/30/19 21:00 05/04/19 21:14 Levothyroxine Sodium (Synthroid) 75 mcg ACBREAKFAST ORAL 04/30/19 06:30 05/27/19 06:29 04/30/19 05:51 Levothyroxine Sodium (Synthroid) 100 mcg ACBREAKFAST ORAL 04/30/19 06:30 05/09/19 06:29 04/30/19 05:50 Methylprednisolone Sodium Succinate (Solu-MEDROL) 60 mg DAILY IVP 04/30/19 09:00 05/30/19 08:59 04/30/19 08:24 Nitroglycerin (Ntg) 0.4 mg Q5M X 3 DOSES PRN SL Prn Chest Pain 04/29/19 15:15 05/08/19 21:29 Ondansetron HCl (Zofran) 4 mg Q6H PRN IVP Nausea & Vomiting 04/29/19 15:30 05/27/19 15:29 Oxymetazoline HCl (Afrin Nasal [place]) 1 spray Q6H PRN NASAL nasal congestion 04/29/19 16:00 05/27/19 15:59 Promethazine HCl/ Codeine (Phenergan with Codeine) 5 ml Q6H PRN ORAL cough 04/29/19 16:00 05/27/19 15:45 Tamsulosin HCl (Flomax) 0.4 mg BEDTIME ORAL 04/29/19 21:00 05/09/19 20:59 04/29/19 21:14 Vancomycin HCl (Vanco rx to dose) 1 ea DAILY PRN MISC Per rx protocol 04/30/19 09:00 05/29/19 12:29 Vancomycin HCl 1 gm/Dextrose 275 ml @ 183.708 mls/hr Q12H IVPB 04/30/19 04:00 05/05/19 03:59 04/30/19 03:16 Goldie Obrien MD Apr 30, 2019 12:32
[2019-04-30] MEDS: Ertapenem 1 GM in NS 55 ML IVPB SCH (13:20)
--- NOTE | 2019-04-30 15:45 | Progress Note ---
DATE: 04/30/2019 SUBJECTIVE: The patient is in bed, no acute distress noted. The patient is still irritable, uncooperative with evaluation. He was discharged; however, refusing to be discharged. MENTAL STATUS EXAMINATION: The patient is alert and oriented times self, place, and situation. Mood is irritable. Affect is constricted. Congruent with mood. Thought process is concrete. Thought content, no suicidal or homicidal ideation. Cognition is impaired. Insight and judgment is impaired. ASSESSMENT: Major depressive disorder. PLAN: Continue current medication. The patient cleared from psychiatric point of view and should be discharged. Ottoniel Hillman M.D. DR: Dawood JOB#: [id number] CC:
[2019-04-30 16:00] VITALS: BP 108/62
--- NOTE | 2019-04-30 19:03 | Internal Med Progress Note ---
Subjective Date of Service: Apr 30, 2019 Physician Name BrittneyIdris Attending Physician Jewel Giraldo MD Current Medications Medications (Trade) Dose Ordered Sig/Dejon Route PRN Reason Start Time Stop Time Status Last Admin Dose Admin Acetaminophen (Tylenol) 650 mg Q4H PRN ORAL fever 04/29/19 15:45 05/27/19 15:42 Acetaminophen/ Hydrocodone Bitart ([place] 5/325) 1 tab Q6H PRN ORAL Severe Pain (Pain Scale 7-10) 04/29/19 18:30 05/04/19 18:29 Albuterol/ Ipratropium (Albuterol/ Ipratropium) 3 ml Q4H PRN HHN Shortness of Breath 04/29/19 15:45 05/02/19 15:43 Apixaban (Eliquis) 5 mg BID ORAL 04/29/19 18:00 05/09/19 08:59 04/30/19 18:24 Carvedilol (Coreg) 6.25 mg EVERY 12 HOURS ORAL 04/29/19 21:00 05/09/19 08:59 04/30/19 08:48 Clonidine HCl (Catapres Tab) 0.1 mg Q4H PRN ORAL sbp more than 160 04/29/19 15:45 05/27/19 15:42 Clotrimazole (Lotrimin) 1 applic THREE TIMES A DAY TOPIC 04/29/19 18:00 05/20/19 12:59 Dextrose (Dextrose 50%) 25 ml Q30M PRN IV Hypoglycemia 04/29/19 15:30 05/09/19 15:29 Dextrose (Dextrose 50%) 50 ml Q30M PRN IV Hypoglycemia 04/29/19 15:30 05/09/19 07:29 Ertapenem 1 gm/ Sodium Chloride 55 ml @ 110 mls/hr Q24H IVPB 04/30/19 13:30 05/04/19 13:29 04/30/19 13:20 Escitalopram Oxalate (Lexapro) 10 mg DAILY ORAL 04/30/19 09:00 05/27/19 08:59 04/30/19 08:47 Insulin Aspart (NovoLOG) BEFORE MEALS AND HS SUBQ 04/29/19 16:30 05/09/19 13:29 04/30/19 17:03 Insulin Aspart (NovoLOG) 10 units NOVOTIAC SUBQ 04/29/19 16:50 05/10/19 07:29 04/30/19 17:03 Insulin Detemir (Levemir) 20 units QHS SUBQ 04/30/19 21:00 05/09/19 20:59 Iron Sucrose 100 mg/Sodium Chloride 60 ml @ 240 mls/hr BEDTIME IV 04/30/19 21:00 05/04/19 21:14 Levothyroxine Sodium (Synthroid) 75 mcg ACBREAKFAST ORAL 04/30/19 06:30 05/27/19 06:29 04/30/19 05:51 Levothyroxine Sodium (Synthroid) 100 mcg ACBREAKFAST ORAL 04/30/19 06:30 05/09/19 06:29 04/30/19 05:50 Methylprednisolone Sodium Succinate (Solu-MEDROL) 60 mg DAILY IVP 04/30/19 09:00 05/30/19 08:59 04/30/19 08:24 Nitroglycerin (Ntg) 0.4 mg Q5M X 3 DOSES PRN SL Prn Chest Pain 04/29/19 15:15 05/08/19 21:29 Ondansetron HCl (Zofran) 4 mg Q6H PRN IVP Nausea & Vomiting 04/29/19 15:30 05/27/19 15:29 Oxymetazoline HCl (Afrin Nasal [place]) 1 spray Q6H PRN NASAL nasal congestion 04/29/19 16:00 05/27/19 15:59 Promethazine HCl/ Codeine (Phenergan with Codeine) 5 ml Q6H PRN ORAL cough 04/29/19 16:00 05/27/19 15:45 Tamsulosin HCl (Flomax) 0.4 mg BEDTIME ORAL 04/29/19 21:00 05/09/19 20:59 04/29/19 21:14 Vancomycin HCl (Vanco rx to dose) 1 ea DAILY PRN MISC Per rx protocol 04/30/19 09:00 05/29/19 12:29 Vancomycin HCl 1 gm/Dextrose 275 ml @ 183.708 mls/hr Q12H IVPB 04/30/19 04:00 05/05/19 03:59 04/30/19 15:53 Allergies: Coded Allergies: No Known Allergies (Unverified , 10/24/16) ROS Limited/Unobtainable: No Constitutional: Reports: no symptoms HEENT: Reports: no symptoms Cardiovascular: Reports: no symptoms Respiratory: Reports: shortness of breath Gastrointestinal/Abdominal: Reports: no symptoms Genitourinary: Reports: no symptoms Neurologic/Psychiatric: Reports: no symptoms Subjective 73 YO M admitted with COPD exacerbation. Now respiratory failure and pneumonia. Cover for Int Bubba-DR Giraldo. CALVIN Objective Last Vital Signs Date Time Temp Pulse Resp B/P (MAP) Pulse Ox O2 Delivery O2 Flow Rate FiO2 04/30/19 16:00 68 04/30/19 16:00 98.1 20 108/62 (77) 98 04/30/19 16:00 Bi-pap 04/30/19 07:10 2.0 28 Laboratory Tests Test 04/30/19 03:05 White Blood Count 6.6 K/UL (4.8-10.8) Red Blood Count 4.30 M/UL (4.70-6.10) L Hemoglobin 12.5 G/DL (14.2-18.0) L Hematocrit 39.2 % (42.0-52.0) L Mean Corpuscular Volume 91 FL (80-99) Mean Corpuscular Hemoglobin 29.1 PG (27.0-31.0) Mean Corpuscular Hemoglobin Concent 32.0 G/DL (32.0-36.0) Red Cell Distribution Width 14.0 % (11.6-14.8) Platelet Count 220 K/UL (150-450) Mean Platelet Volume 6.3 FL (6.5-10.1) L Neutrophils (%) (Auto) 61.3 % (45.0-75.0) Lymphocytes (%) (Auto) 22.5 % (20.0-45.0) Monocytes (%) (Auto) 6.8 % (1.0-10.0) Eosinophils (%) (Auto) 8.1 % (0.0-3.0) H Basophils (%) (Auto) 1.3 % (0.0-2.0) Sodium Level 142 MMOL/L (136-145) Potassium Level 4.5 MMOL/L (3.5-5.1) Chloride Level 103 MMOL/L (98-107) Carbon Dioxide Level 30 MMOL/L (21-32) Anion Gap 9 mmol/L (5-15) Blood Urea Nitrogen 16 mg/dL (7-18) Creatinine 1.0 MG/DL (0.55-1.30) Estimat Glomerular Filtration Rate > 60 mL/min (>60) Glucose Level 146 MG/DL (74-106) H Calcium Level 9.1 MG/DL (8.5-10.1) Ferritin 41 NG/ML (8-388) Total Bilirubin 0.3 MG/DL (0.2-1.0) Aspartate Amino Transf (AST/SGOT) 18 U/L (15-37) Alanine Aminotransferase (ALT/SGPT) 32 U/L (12-78) Alkaline Phosphatase 78 U/L (46-116) Pro-B-Type Natriuretic Peptide 592 pg/mL (0-125) H Total Protein 6.9 G/DL (6.4-8.2) Albumin 2.8 G/DL (3.4-5.0) L Globulin 4.1 g/dL Albumin/Globulin Ratio 0.7 (1.0-2.7) L Intake and Output 04/29/19 04/30/19 19:00 07:00 Intake Total 875.0 ml 275.000 ml Output Total 850 ml 1200 ml Balance 25.0 ml -925.000 ml Intake Oral 600 ml IV Total 275.0 ml 275.000 ml Output Urine Total 850 ml 1200 ml # Voids 1 Objective PHYSICAL EXAMINATION: GENERAL: The patient is awake, responsive, no acute distress. HEAD AND NECK: Pupils are equal and reactive to light. Extraocular muscles intact. Neck was supple. No JVD. LUNGS: BIPAP;The patient has expiratory wheezes noted. Tachypneic. No rhonchi was noted. HEART: S1, S2. Irregular. No murmur. The patient has a pacemaker in the left-sided chest wall. ABDOMEN: Soft, nondistended, nontender. Mildly obese. EXTREMITIES: No cyanosis, clubbing, edema. NEUROLOGIC: Cranial nerves II through XII grossly normal. Motor is 5/5 in all extremities. Gait is intact. GENITOURINARY: It was noted the patient has a Montgomery catheter. RECTAL: Refused and deferred. PSYCHIATRIC: Mood and affect is intact. Assessment/Plan Assessment/Plan ASSESSMENT: 1. Acute hypoxemic respiratory failure, most likely secondary to acute COPD exacerbation. 2. Acute COPD exacerbation. 3. Pneumonia. 4. Sick sinus syndrome status post pacemaker. 5. Diabetes type 2. 6. Prostate cancer. 7. Hyperkalemia. 8. Insulin induced hyperglycemia. 9. Prostate enlargement. 10. Leukocytosis 11. RBBB PLAN: 1. Med/Surg 2. D/C Solu-Medrol IV Per Pulmonary consult=Dr. Obrien. 3. Endocrinology=Dr To. Monitor blood glucose level closely. 4. antibiotic=Zosyn. ID=Dr Villa 5. Code status is Full Code. DVT prophylaxis, he is on Eliquis. Idris Lugo MD Apr 30, 2019 19:03
[2019-04-30 20:00] VITALS: BP 133/82
[2019-04-30] MEDS ORDERED: Levemir Flexpen SUBQ SCH (21:00)
[2019-04-30] MEDS: Tamsulosin 0.4mg cap ORAL SCH (21:31)
[2019-04-30] MEDS: Iron Sucrose 100 MG in NS 55 ML IV SCH (21:32)
[2019-05-01] VITALS (7 sets, daily range): BP systolic 103–127; BP diastolic 64–78
[2019-05-01 03:55] LABS: BASOPHILS % (AUTO) 0.9 % (0.0-2.0); EOSINOPHILS % (AUTO) 1.6 % (0.0-3.0); HEMATOCRIT 35.7 % (42.0-52.0); HEMOGLOBIN 11.5 G/DL (14.2-18.0); LYMPHOCYTES % (AUTO) 14.9 % (20.0-45.0); MEAN CORPUSCULAR VOLUME 91 FL (80-99); NEUTROPHILS % (AUTO) 77.6 % (45.0-75.0); PLATELET COUNT 231 K/UL (150-450); RED BLOOD COUNT 3.91 M/UL (4.70-6.10); RED CELL DISTRIBUTION WIDTH 14.1 % (11.6-14.8); WHITE BLOOD COUNT 9.2 K/UL (4.8-10.8)
[2019-05-01 04:31] LABS: ANION GAP 8 mmol/L (5-15); BLOOD UREA NITROGEN 16 mg/dL (7-18); CALCIUM 8.9 MG/DL (8.5-10.1); CARBON DIOXIDE 31 MMOL/L (21-32); CHLORIDE 100 MMOL/L (98-107); CREATININE 1.3 MG/DL (0.55-1.30); POTASSIUM 4.3 MMOL/L (3.5-5.1); SODIUM 138 MMOL/L (136-145)
[2019-05-01] MEDS: Vancomycin 1 GM in D5W 275 ML IVPB SCH ×2 (05:01→20:51)
[2019-05-01] MEDS: NovoLOG Insulin Flexpen SUBQ SCH ×7 (06:40→21:03)
--- NOTE | 2019-05-01 07:26 | General Progress Note ---
Assessment/Plan Status: stable Assessment/Plan: Assessment/Plan Problems: (1) Diabetes mellitus ICD Codes: E11.9 - Type 2 diabetes mellitus without complications SNOMED: [id number] (2) Anemia ICD Codes: D64.9 - Anemia, unspecified Assessment/Plan This is a 73-year-old male with COPD exacerbation and new-onset diabetes given hemoglobin A1c is high. recommend endoscopy and colonoscopy given anemia at some point, but given the recent COPD exacerbation and still currently recovering from that, we will defer. anemia work up>>>iron def>>> iv iron OB stool r/o GI bleed monitor H&H, prn transfusions bowel regimen ppi fu labs will consider GI procedures if emergent, otherwise outpatient Subjective ROS Limited/Unobtainable: Yes Allergies: Coded Allergies: No Known Allergies (Unverified , 10/24/16) Objective Last 24 Hour Vital Signs Date Time Temp Pulse Resp B/P (MAP) Pulse Ox O2 Delivery O2 Flow Rate FiO2 05/01/19 04:00 Bi-pap 05/01/19 04:00 80 05/01/19 04:00 97.0 69 20 121/74 (90) 95 05/01/19 02:24 96 Nasal Cannula 4.0 36 05/01/19 02:13 70 18 96 Nasal Cannula 4.0 36 67 18 92 05/01/19 00:00 97.8 70 20 103/76 (85) 95 05/01/19 00:00 70 05/01/19 00:00 Bi-pap 04/30/19 21:31 69 133/82 04/30/19 20:00 97.5 69 20 133/82 (99) 95 04/30/19 20:00 Bi-pap 04/30/19 20:00 70 04/30/19 16:00 68 04/30/19 16:00 98.1 67 20 108/62 (77) 98 04/30/19 16:00 Bi-pap 04/30/19 12:00 97.5 81 20 114/76 (89) 92 04/30/19 12:00 Bi-pap 04/30/19 08:48 72 120/77 04/30/19 08:00 Bi-pap 04/30/19 08:00 97.3 72 20 120/77 (91) 98 04/30/19 08:00 71 Intake and Output 04/30/19 05/01/19 19:00 07:00 Intake Total 1200 ml Output Total 1600 ml Balance -400 ml Intake Oral 1200 ml Output Urine Total 1600 ml # Bowel Movements 1 Laboratory Tests 05/01/19 03:14: White Blood Count 9.2, Red Blood Count 3.91L, Hemoglobin 11.5L, Hematocrit 35.7L , Mean Corpuscular Volume 91, Mean Corpuscular Hemoglobin 29.4, Mean Corpuscular Hemoglobin Concent 32.3, Red Cell Distribution Width 14.1, Platelet Count 231, Mean Platelet Volume 7.0, Neutrophils (%) (Auto) 77.6H, Lymphocytes ( %) (Auto) 14.9L, Monocytes (%) (Auto) 5.0, Eosinophils (%) (Auto) 1.6, Basophils (%) (Auto) 0.9, Sodium Level 138, Potassium Level 4.3, Chloride Level 100, Carbon Dioxide Level 31, Anion Gap 8, Blood Urea Nitrogen 16, Creatinine 1.3, Estimat Glomerular Filtration Rate > 60, Glucose Level 282#H, Calcium Level 8.9, Vancomycin Level Trough 8.2 Height (Feet): 6 Height (Inches): 0.00 Weight (Pounds): 193 General Appearance: alert EENT: PERRL/EOMI Neck: normal alignment Cardiovascular: normal rate Respiratory/Chest: decreased breath sounds Abdomen: normal bowel sounds, non tender, soft Extremities: non-tender Christiano La MD May 01, 2019 07:26
[2019-05-01] MEDS: Solu-MEDROL 125mg Inj IVP SCH (09:55)
[2019-05-01] MEDS: Docusate 100mg cap ORAL SCH ×2 (09:57→18:03)
[2019-05-01] MEDS: Eliquis 5mg tablet ORAL SCH ×2 (09:57→18:03)
[2019-05-01] MEDS: Carvedilol 6.25mg Tab ORAL SCH ×2 (09:57→20:38)
--- NOTE | 2019-05-01 10:25 | Infectious Diseases Prog Note ---
Assessment/Plan Assessment/Plan Assessment: Acute hypoxic respiratory failure , back on bipap COPD exacerbation CHF exacerbation PNA -04/29 CXRLThere is bilateral interstitial congestion again demonstrated, appearing unchanged. No focal airspace consolidation. There is some atelectasis at the left lung base. -04/27 CXR: Borderline cardiomegaly. Questionable mild interstitial congestion , new or increased from previous study if real. -04/21 CTA chest:Somewhat limited exam, due to motion artifact. No definite evidence of pulmonary embolus or other acute thoracic vascular pathology. Borderline cardiomegaly. Diffuse bilateral pulmonary parenchymal groundglass opacity. Interspersed small bullae digestive this is due to COPD changes, but could also indicate a component of pulmonary edema. Considerable consolidation in the right lower lobe, likely pneumonia. Less extensive consolidation and atelectasis is seen at the left lung base. Pacemaker, degenerative spondylosis incidentally noted sp cx normal resp michael -04/19 CXR: Mild pulmonary vascular congestion -04/16 CXR: No acute disease -04/13 CXR: Suspected mild pulmonary vascular congestion. Correlate clinically -04/08 CXR: Mild pulmonary vascular congestion suspected Afebrile Leukocytosis,(s/p high dose steroids), SP KAYLAN, improving Hyperglycemia COPD CAD CHF prostate cancer s/p PPM former smoker Plan: -ON IV Vancomycin and Ertapenem #3 per pulm -await sputum cx -04/28 SP Zosyn #8 -04/15 SP Levaquin #7 -04/08 SP Ceftriaxone x1, Azithromycin x1 -Monitor CBC/CMP, temperatures -aspiration precautions -sp cx Thank you for this consultation. Will continue to follow along with you. Subjective Allergies: Coded Allergies: No Known Allergies (Unverified , 10/24/16) Subjective Afebrile 4L NC N oLeukocytosis Objective Vital Signs Last 24 Hour Vital Signs Date Time Temp Pulse Resp B/P (MAP) Pulse Ox O2 Delivery O2 Flow Rate FiO2 05/01/19 09:57 70 106/72 05/01/19 08:00 98.7 70 18 106/72 (83) 90 70 05/01/19 06:30 93 Nasal Cannula 4.0 36 05/01/19 04:00 Bi-pap 05/01/19 04:00 80 05/01/19 04:00 97.0 69 20 121/74 (90) 95 05/01/19 02:24 96 Nasal Cannula 4.0 36 05/01/19 02:13 70 18 96 Nasal Cannula 4.0 36 67 18 92 05/01/19 00:00 97.8 70 20 103/76 (85) 95 05/01/19 00:00 70 05/01/19 00:00 Bi-pap 04/30/19 21:31 69 133/82 04/30/19 20:00 97.5 69 20 133/82 (99) 95 04/30/19 20:00 Bi-pap 04/30/19 20:00 70 04/30/19 16:00 68 04/30/19 16:00 98.1 67 20 108/62 (77) 98 04/30/19 16:00 Bi-pap 04/30/19 12:00 97.5 81 20 114/76 (89) 92 04/30/19 12:00 Bi-pap Height (Feet): 6 Height (Inches): 0.00 Weight (Pounds): 193 Objective General : Confused HEENT: normocephalic, atraumatic, MMM Respiratory/Chest: bibasilar ronchi Cardiovascular/Chest: RRR, S1, S2 Laboratory Tests Test 05/01/19 03:14 White Blood Count 9.2 K/UL (4.8-10.8) Red Blood Count 3.91 M/UL (4.70-6.10) L Hemoglobin 11.5 G/DL (14.2-18.0) L Hematocrit 35.7 % (42.0-52.0) L Mean Corpuscular Volume 91 FL (80-99) Mean Corpuscular Hemoglobin 29.4 PG (27.0-31.0) Mean Corpuscular Hemoglobin Concent 32.3 G/DL (32.0-36.0) Red Cell Distribution Width 14.1 % (11.6-14.8) Platelet Count 231 K/UL (150-450) Mean Platelet Volume 7.0 FL (6.5-10.1) Neutrophils (%) (Auto) 77.6 % (45.0-75.0) H Lymphocytes (%) (Auto) 14.9 % (20.0-45.0) L Monocytes (%) (Auto) 5.0 % (1.0-10.0) Eosinophils (%) (Auto) 1.6 % (0.0-3.0) Basophils (%) (Auto) 0.9 % (0.0-2.0) Sodium Level 138 MMOL/L (136-145) Potassium Level 4.3 MMOL/L (3.5-5.1) Chloride Level 100 MMOL/L (98-107) Carbon Dioxide Level 31 MMOL/L (21-32) Anion Gap 8 mmol/L (5-15) Blood Urea Nitrogen 16 mg/dL (7-18) Creatinine 1.3 MG/DL (0.55-1.30) Estimat Glomerular Filtration Rate > 60 mL/min (>60) Glucose Level 282 MG/DL (74-106) #H Calcium Level 8.9 MG/DL (8.5-10.1) Vancomycin Level Trough 8.2 ug/mL (5.0-12.0) Current Medications Medications (Trade) Dose Ordered Sig/Dejon Route PRN Reason Start Time Stop Time Status Last Admin Dose Admin Acetaminophen (Tylenol) 650 mg Q4H PRN ORAL fever 04/29/19 15:45 05/27/19 15:42 Acetaminophen/ Hydrocodone Bitart ([place] 5/325) 1 tab Q6H PRN ORAL Severe Pain (Pain Scale 7-10) 04/29/19 18:30 05/04/19 18:29 05/01/19 01:44 Albuterol/ Ipratropium (Albuterol/ Ipratropium) 3 ml Q4H PRN HHN Shortness of Breath 04/29/19 15:45 05/02/19 15:43 05/01/19 02:13 Apixaban (Eliquis) 5 mg BID ORAL 04/29/19 18:00 05/09/19 08:59 05/01/19 09:57 Carvedilol (Coreg) 6.25 mg EVERY 12 HOURS ORAL 04/29/19 21:00 05/09/19 08:59 05/01/19 09:57 Clonidine HCl (Catapres Tab) 0.1 mg Q4H PRN ORAL sbp more than 160 04/29/19 15:45 05/27/19 15:42 Clotrimazole (Lotrimin) 1 applic THREE TIMES A DAY TOPIC 04/29/19 18:00 05/20/19 12:59 05/01/19 10:00 Dextrose (Dextrose 50%) 25 ml Q30M PRN IV Hypoglycemia 04/29/19 15:30 05/09/19 15:29 Dextrose (Dextrose 50%) 50 ml Q30M PRN IV Hypoglycemia 04/29/19 15:30 05/09/19 07:29 Docusate Sodium (Colace) 100 mg TWICE A DAY ORAL 05/01/19 09:00 05/31/19 08:59 05/01/19 09:57 Ertapenem 1 gm/ Sodium Chloride 55 ml @ 110 mls/hr Q24H IVPB 04/30/19 13:30 05/04/19 13:29 04/30/19 13:20 Escitalopram Oxalate (Lexapro) 10 mg DAILY ORAL 04/30/19 09:00 05/27/19 08:59 05/01/19 09:57 Insulin Aspart (NovoLOG) BEFORE MEALS AND HS SUBQ 04/29/19 16:30 05/09/19 13:29 05/01/19 06:40 Insulin Aspart (NovoLOG) 10 units NOVOTIAC SUBQ 04/29/19 16:50 05/10/19 07:29 05/01/19 06:41 Insulin Detemir (Levemir) 20 units QHS SUBQ 04/30/19 21:00 05/09/19 20:59 04/30/19 21:51 Iron Sucrose 100 mg/Sodium Chloride 60 ml @ 240 mls/hr BEDTIME IV 04/30/19 21:00 05/04/19 21:14 04/30/19 21:32 Levothyroxine Sodium (Synthroid) 75 mcg ACBREAKFAST ORAL 04/30/19 06:30 05/27/19 06:29 05/01/19 06:37 Levothyroxine Sodium (Synthroid) 100 mcg ACBREAKFAST ORAL 04/30/19 06:30 05/09/19 06:29 05/01/19 06:37 Methylprednisolone Sodium Succinate (Solu-MEDROL) 60 mg DAILY IVP 04/30/19 09:00 05/30/19 08:59 05/01/19 09:55 Nitroglycerin (Ntg) 0.4 mg Q5M X 3 DOSES PRN SL Prn Chest Pain 04/29/19 15:15 05/08/19 21:29 Ondansetron HCl (Zofran) 4 mg Q6H PRN IVP Nausea & Vomiting 04/29/19 15:30 05/27/19 15:29 Oxymetazoline HCl (Afrin Nasal [place]) 1 spray Q6H PRN NASAL nasal congestion 04/29/19 16:00 05/27/19 15:59 Polyethylene Glycol (Miralax) 17 gm BEDTIME ORAL 05/01/19 21:00 05/31/19 20:59 Promethazine HCl/ Codeine (Phenergan with Codeine) 5 ml Q6H PRN ORAL cough 04/29/19 16:00 05/27/19 15:45 Tamsulosin HCl (Flomax) 0.4 mg BEDTIME ORAL 04/29/19 21:00 05/09/19 20:59 04/30/19 21:31 Vancomycin HCl (Vanco rx to dose) 1 ea DAILY PRN MISC Per rx protocol 04/30/19 09:00 05/29/19 12:29 Vancomycin HCl 1 gm/Dextrose 275 ml @ 183.708 mls/hr Q8H IVPB 05/01/19 13:00 05/06/19 12:59 Michele Jose MD May 01, 2019 10:25
[2019-05-01] MEDS ORDERED: Vancomycin 1 GM in D5W 275 ML IVPB SCH (13:00)
[2019-05-01] MEDS ORDERED: Tubing IV Secondary IV ONE ×2 (15:05→16:39)
[2019-05-01] MEDS ORDERED: NS 275ml ONE ×2 (15:05→16:39)
--- NOTE | 2019-05-01 15:37 | Internal Med Progress Note ---
Subjective Date of Service: May 01, 2019 Physician Name LugoIdris Attending Physician Jewel Giraldo MD Current Medications Medications (Trade) Dose Ordered Sig/Dejon Route PRN Reason Start Time Stop Time Status Last Admin Dose Admin Acetaminophen (Tylenol) 650 mg Q4H PRN ORAL fever 04/29/19 15:45 05/27/19 15:42 Acetaminophen/ Hydrocodone Bitart ([place] 5/325) 1 tab Q6H PRN ORAL Severe Pain (Pain Scale 7-10) 04/29/19 18:30 05/04/19 18:29 05/01/19 01:44 Albuterol/ Ipratropium (Albuterol/ Ipratropium) 3 ml Q4H PRN HHN Shortness of Breath 04/29/19 15:45 05/02/19 15:43 05/01/19 02:13 Apixaban (Eliquis) 5 mg BID ORAL 04/29/19 18:00 05/09/19 08:59 05/01/19 09:57 Carvedilol (Coreg) 6.25 mg EVERY 12 HOURS ORAL 04/29/19 21:00 05/09/19 08:59 05/01/19 09:57 Clonidine HCl (Catapres Tab) 0.1 mg Q4H PRN ORAL sbp more than 160 04/29/19 15:45 05/27/19 15:42 Clotrimazole (Lotrimin) 1 applic THREE TIMES A DAY TOPIC 04/29/19 18:00 05/20/19 12:59 05/01/19 12:57 Dextrose (Dextrose 50%) 25 ml Q30M PRN IV Hypoglycemia 04/29/19 15:30 05/09/19 15:29 Dextrose (Dextrose 50%) 50 ml Q30M PRN IV Hypoglycemia 04/29/19 15:30 05/09/19 07:29 Docusate Sodium (Colace) 100 mg TWICE A DAY ORAL 05/01/19 09:00 05/31/19 08:59 05/01/19 09:57 Ertapenem 1 gm/ Sodium Chloride 55 ml @ 110 mls/hr Q24H IVPB 04/30/19 13:30 05/04/19 13:29 04/30/19 13:20 Escitalopram Oxalate (Lexapro) 10 mg DAILY ORAL 04/30/19 09:00 05/27/19 08:59 05/01/19 09:57 Insulin Aspart (NovoLOG) BEFORE MEALS AND HS SUBQ 04/29/19 16:30 05/09/19 13:29 05/01/19 12:56 Insulin Aspart (NovoLOG) 10 units NOVOTIAC SUBQ 04/29/19 16:50 05/10/19 07:29 05/01/19 12:57 Insulin Detemir (Levemir) 20 units QHS SUBQ 04/30/19 21:00 05/09/19 20:59 04/30/19 21:51 Iron Sucrose 100 mg/Sodium Chloride 60 ml @ 240 mls/hr BEDTIME IV 04/30/19 21:00 05/04/19 21:14 04/30/19 21:32 Levothyroxine Sodium (Synthroid) 75 mcg ACBREAKFAST ORAL 04/30/19 06:30 05/27/19 06:29 05/01/19 06:37 Levothyroxine Sodium (Synthroid) 100 mcg ACBREAKFAST ORAL 04/30/19 06:30 05/09/19 06:29 05/01/19 06:37 Methylprednisolone Sodium Succinate (Solu-MEDROL) 60 mg DAILY IVP 04/30/19 09:00 05/30/19 08:59 05/01/19 09:55 Nitroglycerin (Ntg) 0.4 mg Q5M X 3 DOSES PRN SL Prn Chest Pain 04/29/19 15:15 05/08/19 21:29 Ondansetron HCl (Zofran) 4 mg Q6H PRN IVP Nausea & Vomiting 04/29/19 15:30 05/27/19 15:29 Oxymetazoline HCl (Afrin Nasal [place]) 1 spray Q6H PRN NASAL nasal congestion 04/29/19 16:00 05/27/19 15:59 Polyethylene Glycol (Miralax) 17 gm BEDTIME ORAL 05/01/19 21:00 05/31/19 20:59 Promethazine HCl/ Codeine (Phenergan with Codeine) 5 ml Q6H PRN ORAL cough 04/29/19 16:00 05/27/19 15:45 Tamsulosin HCl (Flomax) 0.4 mg BEDTIME ORAL 04/29/19 21:00 05/09/19 20:59 04/30/19 21:31 Vancomycin HCl (Vanco rx to dose) 1 ea DAILY PRN MISC Per rx protocol 04/30/19 09:00 05/29/19 12:29 Vancomycin HCl 1 gm/Dextrose 275 ml @ 183.708 mls/hr Q8H IVPB 05/01/19 13:00 05/06/19 12:59 05/01/19 13:02 Allergies: Coded Allergies: No Known Allergies (Unverified , 10/24/16) ROS Limited/Unobtainable: No Constitutional: Reports: no symptoms HEENT: Reports: no symptoms Cardiovascular: Reports: no symptoms Respiratory: Reports: no symptoms Gastrointestinal/Abdominal: Reports: no symptoms Genitourinary: Reports: no symptoms Neurologic/Psychiatric: Reports: no symptoms Subjective 73 YO M admitted with COPD exacerbation. Now respiratory failure and pneumonia. Cover for Int Med-DR Giraldo. CALVIN Objective Last Vital Signs Date Time Temp Pulse Resp B/P (MAP) Pulse Ox O2 Delivery O2 Flow Rate FiO2 05/01/19 12:09 98.0 65 20 127/64 (85) 99 65 05/01/19 12:00 Bi-pap 05/01/19 06:30 4.0 36 Laboratory Tests Test 05/01/19 03:14 White Blood Count 9.2 K/UL (4.8-10.8) Red Blood Count 3.91 M/UL (4.70-6.10) L Hemoglobin 11.5 G/DL (14.2-18.0) L Hematocrit 35.7 % (42.0-52.0) L Mean Corpuscular Volume 91 FL (80-99) Mean Corpuscular Hemoglobin 29.4 PG (27.0-31.0) Mean Corpuscular Hemoglobin Concent 32.3 G/DL (32.0-36.0) Red Cell Distribution Width 14.1 % (11.6-14.8) Platelet Count 231 K/UL (150-450) Mean Platelet Volume 7.0 FL (6.5-10.1) Neutrophils (%) (Auto) 77.6 % (45.0-75.0) H Lymphocytes (%) (Auto) 14.9 % (20.0-45.0) L Monocytes (%) (Auto) 5.0 % (1.0-10.0) Eosinophils (%) (Auto) 1.6 % (0.0-3.0) Basophils (%) (Auto) 0.9 % (0.0-2.0) Sodium Level 138 MMOL/L (136-145) Potassium Level 4.3 MMOL/L (3.5-5.1) Chloride Level 100 MMOL/L (98-107) Carbon Dioxide Level 31 MMOL/L (21-32) Anion Gap 8 mmol/L (5-15) Blood Urea Nitrogen 16 mg/dL (7-18) Creatinine 1.3 MG/DL (0.55-1.30) Estimat Glomerular Filtration Rate > 60 mL/min (>60) Glucose Level 282 MG/DL (74-106) #H Calcium Level 8.9 MG/DL (8.5-10.1) Vancomycin Level Trough 8.2 ug/mL (5.0-12.0) Intake and Output 04/30/19 05/01/19 19:00 07:00 Intake Total 1200 ml 700 ml Output Total 1600 ml 700 ml Balance -400 ml 0 ml Intake Oral 1200 ml 700 ml Output Urine Total 1600 ml 700 ml # Bowel Movements 1 Objective PHYSICAL EXAMINATION: GENERAL: The patient is awake, responsive, no acute distress. HEAD AND NECK: Pupils are equal and reactive to light. Extraocular muscles intact. Neck was supple. No JVD. LUNGS: BIPAP;The patient has expiratory wheezes noted. Tachypneic. No rhonchi was noted. HEART: S1, S2. Irregular. No murmur. The patient has a pacemaker in the left-sided chest wall. ABDOMEN: Soft, nondistended, nontender. Mildly obese. EXTREMITIES: No cyanosis, clubbing, edema. NEUROLOGIC: Cranial nerves II through XII grossly normal. Motor is 5/5 in all extremities. Gait is intact. GENITOURINARY: It was noted the patient has a Montgomery catheter. RECTAL: Refused and deferred. PSYCHIATRIC: Mood and affect is intact. Assessment/Plan Assessment/Plan ASSESSMENT: 1. Acute hypoxemic respiratory failure, most likely secondary to acute COPD exacerbation. 2. Acute COPD exacerbation. 3. Pneumonia. 4. Sick sinus syndrome status post pacemaker. 5. Diabetes type 2. 6. Prostate cancer. 7. Hyperkalemia. 8. Insulin induced hyperglycemia. 9. Prostate enlargement. 10. Leukocytosis 11. RBBB PLAN: 1. Med/Surg 2. D/C Solu-Medrol IV Per Pulmonary consult=Dr. Obrien. 3. Endocrinology=Dr To. Monitor blood glucose level closely. 4. antibiotic=Zosyn. ID=Dr Villa 5. Code status is Full Code. DVT prophylaxis, he is on Eliquis. Idris Lugo MD May 01, 2019 15:37
[2019-05-01] MEDS: Ertapenem 1 GM in NS 55 ML IVPB SCH (16:40)
[2019-05-01] MEDS ORDERED: Nitroglycerin Subl 0.4mg tab SL PRN (19:00)
[2019-05-01] MEDS ORDERED: Oxymetazoline 0.05% Na Spray 30ml NASAL PRN (19:16)
[2019-05-01] MEDS: Miralax 17gm pkt ORAL SCH (20:37)
[2019-05-01] MEDS: HYDROcodone/Acetamin 5/325 tab ORAL PRN (20:38)
[2019-05-01] MEDS: Tamsulosin 0.4mg cap ORAL SCH (20:38)
[2019-05-01] MEDS: Iron Sucrose 100 MG in NS 55 ML IV SCH ×2 (20:41→20:50)
[2019-05-01] MEDS ORDERED: Levemir Flexpen SUBQ SCH (21:00)
[2019-05-01] MEDS ORDERED: Miralax 17gm pkt ORAL SCH (21:00)
[2019-05-02] VITALS: BP 128/77
--- NOTE | 2019-05-02 01:52 | Progress Note ---
DATE: 05/01/2019 SUBJECTIVE: The patient is in bed, asleep, arousable, gets angry when I asked questions about his mental condition. Poor insight. The patient getting episodes of anger and abusive towards the staff. MENTAL STATUS EXAMINATION: The patient is alert, oriented times self, place, situation. Mood is angry. Affect is flat. Thought process is concrete. Thought content, no suicidal or homicidal ideation. ASSESSMENT: Major depressive disorder. PLAN: 1. The patient is currently on antidepressant. 2. We recommend to discharge the patient when medically cleared. Ottoniel Hillman M.D. DR: Dawood JOB#: [id number] CC:
[2019-05-02] MEDS: HYDROcodone/Acetamin 5/325 tab ORAL PRN ×3 (03:22→23:37)
[2019-05-02] MEDS: Albuterol/Ipratropium 3ml neb HHN PRN ×3 (03:37→21:35)
[2019-05-02 04:00] VITALS: BP 119/72
--- NOTE | 2019-05-02 06:21 | General Progress Note ---
Assessment/Plan Status: stable Assessment/Plan: Assessment/Plan Problems: (1) Diabetes mellitus ICD Codes: E11.9 - Type 2 diabetes mellitus without complications SNOMED: 52884382 (2) Anemia ICD Codes: D64.9 - Anemia, unspecified Assessment/Plan This is a 73-year-old male with COPD exacerbation and new-onset diabetes given hemoglobin A1c is high. recommend endoscopy and colonoscopy given anemia at some point, but given the recent COPD exacerbation and still currently recovering from that, we will defer. anemia work up>>>iron def>>> iv iron OB stool r/o GI bleed monitor H&H, prn transfusions bowel regimen ppi fu labs will consider GI procedures if emergent, otherwise outpatient Subjective Allergies: Coded Allergies: No Known Allergies (Unverified , 10/24/16) Objective Last 24 Hour Vital Signs Date Time Temp Pulse Resp B/P (MAP) Pulse Ox O2 Delivery O2 Flow Rate FiO2 05/02/19 04:00 99.3 75 18 119/72 (88) 100 05/02/19 04:00 Nasal Cannula 3.0 05/02/19 03:37 71 20 95 Nasal Cannula 3.0 32 68 18 93 05/02/19 02:18 69 27 94 30 05/02/19 01:48 97.6 05/02/19 00:00 97.6 74 18 128/77 (94) 95 05/02/19 00:00 Nasal Cannula 3.0 05/01/19 20:38 73 121/78 05/01/19 20:09 93 Nasal Cannula 4.0 36 05/01/19 20:00 Nasal Cannula 3.0 05/01/19 20:00 99.2 73 18 121/78 (92) 93 05/01/19 18:50 97.6 75 22 122/75 (91) 98 05/01/19 16:00 71 05/01/19 16:00 Nasal Cannula 3.0 05/01/19 16:00 97.6 73 17 121/72 (88) 99 73 05/01/19 12:09 98.0 65 20 127/64 (85) 99 65 05/01/19 12:01 Nasal Cannula 3.0 05/01/19 12:00 72 05/01/19 09:57 70 106/72 05/01/19 08:01 Nasal Cannula 3.0 05/01/19 08:00 98.7 70 18 106/72 (83) 90 70 05/01/19 08:00 71 05/01/19 06:30 93 Nasal Cannula 4.0 36 Intake and Output 05/01/19 05/02/19 19:00 07:00 Intake Total 1000 ml Output Total 850 ml Balance 150 ml Intake Oral 1000 ml Output Urine Total 850 ml # Bowel Movements 4 3 Laboratory Tests 05/02/19 04:50: White Blood Count [Pending], Red Blood Count [Pending], Hemoglobin [Pending], Hematocrit [Pending], Mean Corpuscular Volume [Pending], Mean Corpuscular Hemoglobin [Pending], Mean Corpuscular Hemoglobin Concent [Pending], Red Cell Distribution Width [Pending], Platelet Count [Pending], Mean Platelet Volume [ Pending], Neutrophils (%) (Auto) [Pending], Lymphocytes (%) (Auto) [Pending], Monocytes (%) (Auto) [Pending], Eosinophils (%) (Auto) [Pending], Basophils (%) (Auto) [Pending], Sodium Level [Pending], Potassium Level [Pending], Chloride Level [Pending], Carbon Dioxide Level [Pending], Blood Urea Nitrogen [Pending], Creatinine [Pending], Estimat Glomerular Filtration Rate [Pending], Glucose Level [Pending], Calcium Level [Pending] Height (Feet): 6 Height (Inches): 0.00 Weight (Pounds): 193 General Appearance: alert EENT: normal ENT inspection Neck: normal alignment Cardiovascular: normal rate Respiratory/Chest: decreased breath sounds Abdomen: normal bowel sounds, non tender, soft Extremities: non-tender Christiano La MD May 02, 2019 06:21
[2019-05-02] MEDS: Vancomycin 1 GM in D5W 275 ML IVPB SCH ×3 (06:31→20:55)
[2019-05-02] MEDS: NovoLOG Insulin Flexpen SUBQ SCH ×7 (06:38→21:09)
[2019-05-02 07:14] LABS: ANION GAP 2 mmol/L (5-15); BLOOD UREA NITROGEN 18 mg/dL (7-18); CALCIUM 8.6 MG/DL (8.5-10.1); CARBON DIOXIDE 36 MMOL/L (21-32); CHLORIDE 102 MMOL/L (98-107); POTASSIUM 4.4 MMOL/L (3.5-5.1); SODIUM 140 MMOL/L (136-145)
[2019-05-02 07:22] LABS: BASOPHILS % (AUTO) 0.8 % (0.0-2.0); EOSINOPHILS % (AUTO) 1.1 % (0.0-3.0); HEMATOCRIT 33.9 % (42.0-52.0); LYMPHOCYTES % (AUTO) 13.9 % (20.0-45.0); MEAN CORPUSCULAR VOLUME 90 FL (80-99); MONOCYTES % (AUTO) 8.8 % (1.0-10.0); NEUTROPHILS % (AUTO) 75.5 % (45.0-75.0); PLATELET COUNT 257 K/UL (150-450); RED BLOOD COUNT 3.74 M/UL (4.70-6.10); RED CELL DISTRIBUTION WIDTH 14.2 % (11.6-14.8); WHITE BLOOD COUNT 10.8 K/UL (4.8-10.8)
[2019-05-02 08:00] VITALS: BP 123/80
[2019-05-02] MEDS: Docusate 100mg cap ORAL SCH ×2 (09:00→18:00)
[2019-05-02] MEDS: Carvedilol 6.25mg Tab ORAL SCH ×2 (10:09→20:56)
[2019-05-02] MEDS: Eliquis 5mg tablet ORAL SCH ×2 (10:09→17:57)
[2019-05-02] MEDS: Solu-MEDROL 125mg Inj IVP SCH (10:09)
[2019-05-02 12:00] VITALS: BP 96/61
--- NOTE | 2019-05-02 12:32 | General Progress Note ---
Assessment/Plan Problem List: (1) COPD exacerbation ICD Codes: J44.1 - Chronic obstructive pulmonary disease with (acute) exacerbation SNOMED: 177315718 (2) Respiratory failure with hypoxia ICD Codes: J96.91 - Respiratory failure, unspecified with hypoxia SNOMED: 07480351332188466 (3) Diabetes mellitus ICD Codes: E11.9 - Type 2 diabetes mellitus without complications SNOMED: 96824587 (4) Pacemaker ICD Codes: Z95.0 - Presence of cardiac pacemaker SNOMED: 683304973 (5) Prostate cancer ICD Codes: C61 - Malignant neoplasm of prostate SNOMED: 846374829 (6) Hypothyroid ICD Codes: E03.9 - Hypothyroidism, unspecified SNOMED: 21285034 Status: stable Assessment/Plan: increase Levemir to 24 units qhs increase Novolog to 14 units ac tid continue NISS ac / hs continue Levothyroxine 175 mcg qam repeat thyroid function in 3 weeks Subjective Allergies: Coded Allergies: No Known Allergies (Unverified , 10/24/16) All Systems: reviewed and negative except above Subjective events noted glucose values elevated on IVSM Item Value Date Time Bedside Blood Glucose 171 mg/dl H 05/01/19 1257 Bedside Blood Glucose 196 mg/dl H 05/01/19 0641 Bedside Blood Glucose 250 mg/dl H 04/30/19 2151 Bedside Blood Glucose 313 mg/dl H 04/30/19 1703 Bedside Blood Glucose 219 mg/dl H 05/02/19 1154 Bedside Blood Glucose 218 mg/dl H 05/02/19 0640 Bedside Blood Glucose 287 mg/dl H 05/01/19 2103 Bedside Blood Glucose 305 mg/dl H 05/01/19 1802 Objective Last 24 Hour Vital Signs Date Time Temp Pulse Resp B/P (MAP) Pulse Ox O2 Delivery O2 Flow Rate FiO2 05/02/19 10:09 97 123/80 05/02/19 09:00 Nasal Cannula 2.0 05/02/19 09:00 97 24 96 Nasal Cannula 4.0 36 100 26 94 05/02/19 08:00 97.8 96 22 123/80 (94) 91 05/02/19 07:41 94 Nasal Cannula 4.0 36 05/02/19 07:41 82 22 94 Nasal Cannula 4.0 36 05/02/19 04:00 99.3 75 18 119/72 (88) 100 05/02/19 04:00 Nasal Cannula 3.0 05/02/19 03:37 71 20 95 Nasal Cannula 3.0 32 68 18 93 05/02/19 02:18 69 27 94 30 05/02/19 01:48 97.6 05/02/19 00:00 97.6 74 18 128/77 (94) 95 05/02/19 00:00 Nasal Cannula 3.0 05/01/19 20:38 73 121/78 05/01/19 20:09 93 Nasal Cannula 4.0 36 05/01/19 20:00 Nasal Cannula 3.0 05/01/19 20:00 99.2 73 18 121/78 (92) 93 05/01/19 18:50 97.6 75 22 122/75 (91) 98 05/01/19 16:00 71 05/01/19 16:00 Nasal Cannula 3.0 05/01/19 16:00 97.6 73 17 121/72 (88) 99 73 Intake and Output 05/01/19 05/02/19 19:00 07:00 Intake Total 1000 ml 872 ml Output Total 850 ml 1000 ml Balance 150 ml -128 ml Intake Oral 1000 ml 872 ml Output Urine Total 850 ml 1000 ml # Bowel Movements 4 4 Laboratory Tests 05/02/19 04:50: White Blood Count 10.8, Red Blood Count 3.74L, Hemoglobin 11.0L, Hematocrit 33.9L, Mean Corpuscular Volume 90, Mean Corpuscular Hemoglobin 29.4, Mean Corpuscular Hemoglobin Concent 32.5, Red Cell Distribution Width 14.2, Platelet Count 257, Mean Platelet Volume 5.8L, Neutrophils (%) (Auto) 75.5H, Lymphocytes (%) (Auto) 13.9L, Monocytes (%) (Auto) 8.8, Eosinophils (%) (Auto) 1.1, Basophils (%) (Auto) 0.8, Sodium Level 140, Potassium Level 4.4, Chloride Level 102, Carbon Dioxide Level 36H, Anion Gap 2L, Blood Urea Nitrogen 18, Creatinine 1.0, Estimat Glomerular Filtration Rate > 60, Glucose Level 211H, Calcium Level 8.6 Height (Feet): 6 Height (Inches): 0.00 Weight (Pounds): 193 General Appearance: no apparent distress Neck: normal alignment Cardiovascular: normal rate Respiratory/Chest: expiratory wheezing Abdomen: normal bowel sounds Pelvis: normal external exam Objective Current Medications Medications (Trade) Dose Ordered Sig/Dejon Route PRN Reason Start Time Stop Time Status Last Admin Dose Admin Acetaminophen (Tylenol) 650 mg Q4H PRN ORAL fever 05/01/19 19:14 05/31/19 19:13 05/02/19 01:18 Acetaminophen/ Hydrocodone Bitart ([place] 5/325) 1 tab Q6H PRN ORAL Severe Pain (Pain Scale 7-10) 05/01/19 19:16 05/08/19 19:15 05/02/19 12:19 Albuterol/ Ipratropium (Albuterol/ Ipratropium) 3 ml Q4H PRN HHN Shortness of Breath 05/01/19 19:16 05/06/19 19:15 05/02/19 08:52 Apixaban (Eliquis) 5 mg BID ORAL 05/02/19 09:00 05/09/19 08:59 05/02/19 10:09 Carvedilol (Coreg) 6.25 mg EVERY 12 HOURS ORAL 05/01/19 21:00 05/09/19 08:59 05/02/19 10:09 Clonidine HCl (Catapres Tab) 0.1 mg Q4H PRN ORAL sbp more than 160 05/01/19 19:14 05/31/19 19:13 Clotrimazole (Lotrimin) 1 applic THREE TIMES A DAY TOPIC 05/02/19 09:00 05/20/19 12:59 Dextrose (Dextrose 50%) 25 ml Q30M PRN IV Hypoglycemia 05/01/19 19:30 05/09/19 15:29 Dextrose (Dextrose 50%) 50 ml Q30M PRN IV Hypoglycemia 05/01/19 19:30 05/09/19 07:29 Docusate Sodium (Colace) 100 mg TWICE A DAY ORAL 05/02/19 09:00 05/31/19 08:59 Ertapenem 1 gm/ Sodium Chloride 55 ml @ 110 mls/hr Q24H IVPB 05/02/19 13:30 05/04/19 13:29 Escitalopram Oxalate (Lexapro) 10 mg DAILY ORAL 05/02/19 09:00 05/27/19 08:59 05/02/19 10:09 Insulin Aspart (NovoLOG) BEFORE MEALS AND HS SUBQ 05/01/19 21:00 05/09/19 13:29 05/02/19 11:54 Insulin Aspart (NovoLOG) 10 units NOVOTIAC SUBQ 05/02/19 06:30 05/10/19 07:29 05/02/19 11:54 Insulin Detemir (Levemir) 20 units QHS SUBQ 05/01/19 21:00 05/09/19 20:59 05/01/19 20:59 Iron Sucrose 100 mg/Sodium Chloride 60 ml @ 240 mls/hr BEDTIME IV 05/01/19 21:00 05/04/19 21:14 05/01/19 20:50 Levothyroxine Sodium (Synthroid) 75 mcg ACBREAKFAST ORAL 05/02/19 06:30 05/27/19 06:29 05/02/19 06:41 Levothyroxine Sodium (Synthroid) 100 mcg ACBREAKFAST ORAL 05/02/19 06:30 05/09/19 06:29 05/02/19 06:36 Methylprednisolone Sodium Succinate (Solu-MEDROL) 60 mg DAILY IVP 05/02/19 09:00 05/30/19 08:59 05/02/19 10:09 Nitroglycerin (Ntg) 0.4 mg Q5M X 3 DOSES PRN SL Prn Chest Pain 05/01/19 19:00 05/08/19 21:29 Ondansetron HCl (Zofran) 4 mg Q6H PRN IVP Nausea & Vomiting 05/01/19 19:16 05/31/19 19:15 Oxymetazoline HCl (Afrin Nasal [place]) 1 spray Q6H PRN NASAL nasal congestion 05/01/19 19:16 05/31/19 19:15 Polyethylene Glycol (Miralax) 17 gm BEDTIME ORAL 05/01/19 21:00 05/31/19 20:59 05/01/19 20:37 Promethazine HCl/ Codeine (Phenergan with Codeine) 5 ml Q6H PRN ORAL cough 05/01/19 19:17 05/31/19 19:16 Tamsulosin HCl (Flomax) 0.4 mg BEDTIME ORAL 05/01/19 21:00 05/09/19 20:59 05/01/19 20:38 Vancomycin HCl (Vanco rx to dose) 1 ea DAILY PRN MISC Per rx protocol 05/02/19 09:00 05/29/19 12:29 Vancomycin HCl 1 gm/Dextrose 275 ml @ 183.708 mls/hr Q8H IVPB 05/01/19 21:00 05/06/19 12:59 05/02/19 06:31 Geovanni To MD May 02, 2019 12:32
[2019-05-02] MEDS ORDERED: Ertapenem 1 GM in NS 55 ML IVPB SCH (13:30)
[2019-05-02] MEDS ORDERED: Tubing IV Secondary IV ONE (13:55)
[2019-05-02] MEDS ORDERED: NS 500ML ONE (13:55)
--- NOTE | 2019-05-02 14:41 | Internal Med Progress Note ---
Subjective Date of Service: May 02, 2019 Physician Name Idris Lugo Attending Physician Jewel Giraldo MD Current Medications Medications (Trade) Dose Ordered Sig/Dejon Route PRN Reason Start Time Stop Time Status Last Admin Dose Admin Acetaminophen (Tylenol) 650 mg Q4H PRN ORAL fever 05/01/19 19:14 05/31/19 19:13 05/02/19 01:18 Acetaminophen/ Hydrocodone Bitart ([place] 5/325) 1 tab Q6H PRN ORAL Severe Pain (Pain Scale 7-10) 05/01/19 19:16 05/08/19 19:15 05/02/19 12:19 Albuterol/ Ipratropium (Albuterol/ Ipratropium) 3 ml Q4H PRN HHN Shortness of Breath 05/01/19 19:16 05/06/19 19:15 05/02/19 08:52 Apixaban (Eliquis) 5 mg BID ORAL 05/02/19 09:00 05/09/19 08:59 05/02/19 10:09 Carvedilol (Coreg) 6.25 mg EVERY 12 HOURS ORAL 05/01/19 21:00 05/09/19 08:59 05/02/19 10:09 Clonidine HCl (Catapres Tab) 0.1 mg Q4H PRN ORAL sbp more than 160 05/01/19 19:14 05/31/19 19:13 Clotrimazole (Lotrimin) 1 applic THREE TIMES A DAY TOPIC 05/02/19 09:00 05/20/19 12:59 Dextrose (Dextrose 50%) 25 ml Q30M PRN IV Hypoglycemia 05/01/19 19:30 05/09/19 15:29 Dextrose (Dextrose 50%) 50 ml Q30M PRN IV Hypoglycemia 05/01/19 19:30 05/09/19 07:29 Docusate Sodium (Colace) 100 mg TWICE A DAY ORAL 05/02/19 09:00 05/31/19 08:59 Ertapenem 1 gm/ Sodium Chloride 55 ml @ 110 mls/hr Q24H IVPB 05/02/19 15:00 05/07/19 14:59 Escitalopram Oxalate (Lexapro) 10 mg DAILY ORAL 05/02/19 09:00 05/27/19 08:59 05/02/19 10:09 Insulin Aspart (NovoLOG) BEFORE MEALS AND HS SUBQ 05/01/19 21:00 05/09/19 13:29 05/02/19 11:54 Insulin Aspart (NovoLOG) 14 units NOVOTIAC SUBQ 05/02/19 16:50 05/10/19 07:29 Insulin Detemir (Levemir) 24 units QHS SUBQ 05/02/19 21:00 05/09/19 20:59 Iron Sucrose 100 mg/Sodium Chloride 60 ml @ 240 mls/hr BEDTIME IV 05/01/19 21:00 05/04/19 21:14 05/01/19 20:50 Levothyroxine Sodium (Synthroid) 75 mcg ACBREAKFAST ORAL 05/02/19 06:30 05/27/19 06:29 05/02/19 06:41 Levothyroxine Sodium (Synthroid) 100 mcg ACBREAKFAST ORAL 05/02/19 06:30 05/09/19 06:29 05/02/19 06:36 Methylprednisolone Sodium Succinate (Solu-MEDROL) 60 mg DAILY IVP 05/02/19 09:00 05/30/19 08:59 05/02/19 10:09 Nitroglycerin (Ntg) 0.4 mg Q5M X 3 DOSES PRN SL Prn Chest Pain 05/01/19 19:00 05/08/19 21:29 Ondansetron HCl (Zofran) 4 mg Q6H PRN IVP Nausea & Vomiting 05/01/19 19:16 05/31/19 19:15 Oxymetazoline HCl (Afrin Nasal [place]) 1 spray Q6H PRN NASAL nasal congestion 05/01/19 19:16 05/31/19 19:15 Polyethylene Glycol (Miralax) 17 gm BEDTIME ORAL 05/01/19 21:00 05/31/19 20:59 05/01/19 20:37 Promethazine HCl/ Codeine (Phenergan with Codeine) 5 ml Q6H PRN ORAL cough 05/01/19 19:17 05/31/19 19:16 Tamsulosin HCl (Flomax) 0.4 mg BEDTIME ORAL 05/01/19 21:00 05/09/19 20:59 05/01/19 20:38 Vancomycin HCl (Vanco rx to dose) 1 ea DAILY PRN MISC Per rx protocol 2/23/20 09:00 05/29/19 12:29 Vancomycin HCl 1 gm/Dextrose 275 ml @ 183.708 mls/hr Q8H IVPB 05/01/19 21:00 05/06/19 12:59 05/02/19 13:21 Allergies: Coded Allergies: No Known Allergies (Unverified , 10/24/16) ROS Limited/Unobtainable: No Constitutional: Reports: no symptoms HEENT: Reports: no symptoms Cardiovascular: Reports: no symptoms Respiratory: Reports: no symptoms Gastrointestinal/Abdominal: Reports: no symptoms Genitourinary: Reports: no symptoms Neurologic/Psychiatric: Reports: no symptoms Subjective 73 YO M admitted with COPD exacerbation. Now respiratory failure and pneumonia. Cover for Int Med-DR Giraldo. CALVIN Objective Last Vital Signs Date Time Temp Pulse Resp B/P (MAP) Pulse Ox O2 Delivery O2 Flow Rate FiO2 05/02/19 12:00 98.5 77 22 96/61 (73) 93 05/02/19 09:00 Nasal Cannula 2.0 05/02/19 09:00 36 Laboratory Tests Test 05/02/19 04:50 White Blood Count 10.8 K/UL (4.8-10.8) Red Blood Count 3.74 M/UL (4.70-6.10) L Hemoglobin 11.0 G/DL (14.2-18.0) L Hematocrit 33.9 % (42.0-52.0) L Mean Corpuscular Volume 90 FL (80-99) Mean Corpuscular Hemoglobin 29.4 PG (27.0-31.0) Mean Corpuscular Hemoglobin Concent 32.5 G/DL (32.0-36.0) Red Cell Distribution Width 14.2 % (11.6-14.8) Platelet Count 257 K/UL (150-450) Mean Platelet Volume 5.8 FL (6.5-10.1) L Neutrophils (%) (Auto) 75.5 % (45.0-75.0) H Lymphocytes (%) (Auto) 13.9 % (20.0-45.0) L Monocytes (%) (Auto) 8.8 % (1.0-10.0) Eosinophils (%) (Auto) 1.1 % (0.0-3.0) Basophils (%) (Auto) 0.8 % (0.0-2.0) Sodium Level 140 MMOL/L (136-145) Potassium Level 4.4 MMOL/L (3.5-5.1) Chloride Level 102 MMOL/L (98-107) Carbon Dioxide Level 36 MMOL/L (21-32) H Anion Gap 2 mmol/L (5-15) L Blood Urea Nitrogen 18 mg/dL (7-18) Creatinine 1.0 MG/DL (0.55-1.30) Estimat Glomerular Filtration Rate > 60 mL/min (>60) Glucose Level 211 MG/DL (74-106) H Calcium Level 8.6 MG/DL (8.5-10.1) Microbiology Date/Time Source Procedure Growth Status 05/01/19 17:00 Sputum Gram Stain - Final Resulted 05/01/19 17:00 Sputum Sputum Culture - Preliminary NO GROWTH Resulted Intake and Output 05/01/19 05/02/19 19:00 07:00 Intake Total 1000 ml 872 ml Output Total 850 ml 1000 ml Balance 150 ml -128 ml Intake Oral 1000 ml 872 ml Output Urine Total 850 ml 1000 ml # Bowel Movements 4 4 Objective PHYSICAL EXAMINATION: GENERAL: The patient is awake, responsive, no acute distress. HEAD AND NECK: Pupils are equal and reactive to light. Extraocular muscles intact. Neck was supple. No JVD. LUNGS: BIPAP;The patient has expiratory wheezes noted. Tachypneic. No rhonchi was noted. HEART: S1, S2. Irregular. No murmur. The patient has a pacemaker in the left-sided chest wall. ABDOMEN: Soft, nondistended, nontender. Mildly obese. EXTREMITIES: No cyanosis, clubbing, edema. NEUROLOGIC: Cranial nerves II through XII grossly normal. Motor is 5/5 in all extremities. Gait is intact. GENITOURINARY: It was noted the patient has a [place] catheter. RECTAL: Refused and deferred. PSYCHIATRIC: Mood and affect is intact. Assessment/Plan Assessment/Plan ASSESSMENT: 1. Acute hypoxemic respiratory failure, most likely secondary to acute COPD exacerbation. 2. Acute COPD exacerbation. 3. Pneumonia. 4. Sick sinus syndrome status post pacemaker. 5. Diabetes type 2. 6. Prostate cancer. 7. Hyperkalemia. 8. Insulin induced hyperglycemia. 9. Prostate enlargement. 10. Leukocytosis 11. RBBB PLAN: 1. Med/Surg 2. D/C Solu-Medrol IV Per Pulmonary consult=Dr. Obrien. 3. Endocrinology=Dr To. Monitor blood glucose level closely. 4. antibiotic=ertapenem and vanco. ID=Dr Villa 5. Code status is Full Code. DVT prophylaxis, he is on Eliquis. Idris Lugo MD May 02, 2019 14:41
[2019-05-02] MEDS: Ertapenem 1 GM in NS 55 ML IVPB SCH (15:19)
[2019-05-02 16:00] VITALS: BP 113/76
[2019-05-02 16:23] LABS: APPEARANCE,URINE CLOUDY; BILIRUBIN, URINE NEGATIVE (NEGATIVE); COLOR,URINE PALE YELLOW; GLUCOSE, URINE (UA) 2+ (NEGATIVE); KETONES,URINE NEGATIVE (NEGATIVE); LEUKOCYTE ESTERASE ,URINE 3+ (NEGATIVE); NITRITE,URINE NEGATIVE (NEGATIVE); PH,URINE 5 (4.5-8.0); PROTEIN,URINE 1+ (NEGATIVE); UROBILINOGEN,URINE NORMAL MG/DL (0.0-1.0)
[2019-05-02 20:00] VITALS: BP 119/78
[2019-05-02] MEDS: Miralax 17gm pkt ORAL SCH (20:49)
[2019-05-02] MEDS: Iron Sucrose 100 MG in NS 55 ML IV SCH (20:53)
[2019-05-02] MEDS: Tamsulosin 0.4mg cap ORAL SCH (20:56)
[2019-05-02] MEDS: Levemir Flexpen SUBQ SCH (21:07)
[2019-05-02] MEDS: Promethazine/Codeine 5ml UD ORAL PRN (23:40)
[2019-05-03 00:14] VITALS: BP 139/74
[2019-05-03 04:00] VITALS: BP 137/98
[2019-05-03 04:32] LABS: BASOPHILS % (AUTO) 1.7 % (0.0-2.0); EOSINOPHILS % (AUTO) 2.2 % (0.0-3.0); HEMATOCRIT 38.1 % (42.0-52.0); HEMOGLOBIN 12.5 G/DL (14.2-18.0); LYMPHOCYTES % (AUTO) 19.6 % (20.0-45.0); MEAN CORPUSCULAR VOLUME 91 FL (80-99); NEUTROPHILS % (AUTO) 68.4 % (45.0-75.0); PLATELET COUNT 314 K/UL (150-450); RED BLOOD COUNT 4.19 M/UL (4.70-6.10); RED CELL DISTRIBUTION WIDTH 14.7 % (11.6-14.8); WHITE BLOOD COUNT 13.1 K/UL (4.8-10.8)
[2019-05-03] MEDS: Albuterol/Ipratropium 3ml neb HHN PRN ×3 (04:49→20:32)
[2019-05-03 04:50] LABS: ANION GAP 4 mmol/L (5-15); BLOOD UREA NITROGEN 17 mg/dL (7-18); CALCIUM 9.2 MG/DL (8.5-10.1); CARBON DIOXIDE 34 MMOL/L (21-32); CHLORIDE 104 MMOL/L (98-107); POTASSIUM 4.4 MMOL/L (3.5-5.1); SODIUM 142 MMOL/L (136-145)
[2019-05-03] MEDS: Vancomycin 1 GM in D5W 275 ML IVPB SCH ×2 (05:57→12:35)
[2019-05-03] MEDS: NovoLOG Insulin Flexpen SUBQ SCH ×7 (06:40→21:23)
--- NOTE | 2019-05-03 06:43 | General Progress Note ---
Assessment/Plan Problem List: (1) COPD exacerbation ICD Codes: J44.1 - Chronic obstructive pulmonary disease with (acute) exacerbation SNOMED: 315628448 (2) Respiratory failure with hypoxia ICD Codes: J96.91 - Respiratory failure, unspecified with hypoxia SNOMED: 66172625462858396 (3) Diabetes mellitus ICD Codes: E11.9 - Type 2 diabetes mellitus without complications SNOMED: 88503728 (4) Pacemaker ICD Codes: Z95.0 - Presence of cardiac pacemaker SNOMED: 827089813 (5) Prostate cancer ICD Codes: C61 - Malignant neoplasm of prostate SNOMED: 272160966 (6) Hypothyroid ICD Codes: E03.9 - Hypothyroidism, unspecified SNOMED: 41120569 Status: stable Assessment/Plan: continue Levemir 24 units qhs continue Novolog 14 units ac tid continue NISS ac / hs continue Levothyroxine 175 mcg qam repeat thyroid function in 3 weeks Subjective Allergies: Coded Allergies: No Known Allergies (Unverified , 10/24/16) All Systems: reviewed and negative except above Subjective events noted fasting glucose improved still on IVSM 60 mg daily Item Value Date Time Glucose Level 195 MG/DL H 05/03/19 0400 Bedside Blood Glucose 224 mg/dl H 05/02/19 2109 Bedside Blood Glucose 248 mg/dl H 05/02/19 1710 Bedside Blood Glucose 219 mg/dl H 05/02/19 1154 Bedside Blood Glucose 218 mg/dl H 05/02/19 0640 Objective Last 24 Hour Vital Signs Date Time Temp Pulse Resp B/P (MAP) Pulse Ox O2 Delivery O2 Flow Rate FiO2 05/03/19 04:49 74 18 96 Nasal Cannula 3.0 32 70 18 94 05/03/19 04:00 98.7 78 18 137/98 (111) 98 78 05/03/19 00:14 97.4 85 20 139/74 (95) 98 05/03/19 00:13 98.1 05/02/19 21:50 Nasal Cannula 2.0 05/02/19 21:36 78 20 98 Nasal Cannula 3.0 32 73 18 95 05/02/19 21:35 93 Nasal Cannula 3.0 32 05/02/19 20:56 86 119/76 05/02/19 20:00 98.1 86 15 119/78 (92) 98 86 05/02/19 16:00 98.0 83 22 113/76 (88) 94 05/02/19 12:00 98.5 77 22 96/61 (73) 93 05/02/19 10:09 97 123/80 05/02/19 09:00 Nasal Cannula 2.0 05/02/19 09:00 97 24 96 Nasal Cannula 4.0 36 100 26 94 05/02/19 08:00 97.8 96 22 123/80 (94) 91 05/02/19 07:41 94 Nasal Cannula 4.0 36 05/02/19 07:41 82 22 94 Nasal Cannula 4.0 36 Intake and Output 05/02/19 05/03/19 19:00 07:00 Intake Total 1730 ml Output Total 600 ml 1000 ml Balance 1130 ml -1000 ml Intake Oral 1400 ml IV Total 330 ml Output Urine Total 600 ml 1000 ml # Bowel Movements 2 Laboratory Tests 05/02/19 15:00: Stool Occult Blood [Pending] 05/02/19 16:10: Urine Color Pale yellow, Urine Appearance Cloudy, Urine pH 5, Urine Specific [place] 1.020, Urine Protein 1+H, Urine Glucose (UA) 2+H, Urine Ketones Negative , Urine Blood 2+H, Urine Nitrite Negative, Urine Bilirubin Negative, Urine Urobilinogen Normal, Urine Leukocyte Esterase 3+H, Urine RBC 10-15H, Urine WBC 30-40H, Urine Squamous Epithelial Cells Few, Urine Calcium Oxalate Crystals Few , Urine Bacteria ManyH, Urine Yeast ManyH 05/03/19 04:00: White Blood Count 13.1H, Red Blood Count 4.19L, Hemoglobin 12.5L, Hematocrit 38.1L, Mean Corpuscular Volume 91, Mean Corpuscular Hemoglobin 29.8, Mean Corpuscular Hemoglobin Concent 32.8, Red Cell Distribution Width 14.7, Platelet Count 314, Mean Platelet Volume 6.0L, Neutrophils (%) (Auto) 68.4, Lymphocytes ( %) (Auto) 19.6L, Monocytes (%) (Auto) 8.0, Eosinophils (%) (Auto) 2.2, Basophils (%) (Auto) 1.7, Sodium Level 142, Potassium Level 4.4, Chloride Level 104, Carbon Dioxide Level 34H, Anion Gap 4L, Blood Urea Nitrogen 17, Creatinine 1.0, Estimat Glomerular Filtration Rate > 60, Glucose Level 195H, Calcium Level 9.2, Vancomycin Level [place] 19.8H Height (Feet): 6 Height (Inches): 0.00 Weight (Pounds): 193 General Appearance: no apparent distress Neck: normal alignment Cardiovascular: normal rate Respiratory/Chest: decreased breath sounds Abdomen: normal bowel sounds Pelvis: normal external exam Objective Current Medications Medications (Trade) Dose Ordered Sig/Dejon Route PRN Reason Start Time Stop Time Status Last Admin Dose Admin Acetaminophen (Tylenol) 650 mg Q4H PRN ORAL fever 05/01/19 19:14 05/31/19 19:13 05/02/19 01:18 Acetaminophen/ Hydrocodone Bitart ([place] 5/325) 1 tab Q6H PRN ORAL Severe Pain (Pain Scale 7-10) 05/01/19 19:16 05/08/19 19:15 05/02/19 23:37 Albuterol/ Ipratropium (Albuterol/ Ipratropium) 3 ml Q4H PRN HHN Shortness of Breath 05/01/19 19:16 05/06/19 19:15 05/03/19 04:49 Apixaban (Eliquis) 5 mg BID ORAL 05/02/19 09:00 05/09/19 08:59 05/02/19 17:57 Carvedilol (Coreg) 6.25 mg EVERY 12 HOURS ORAL 05/01/19 21:00 05/09/19 08:59 05/02/19 20:56 Clonidine HCl (Catapres Tab) 0.1 mg Q4H PRN ORAL sbp more than 160 05/01/19 19:14 05/31/19 19:13 Clotrimazole (Lotrimin) 1 applic THREE TIMES A DAY TOPIC 05/02/19 09:00 05/20/19 12:59 Dextrose (Dextrose 50%) 25 ml Q30M PRN IV Hypoglycemia 05/01/19 19:30 05/09/19 15:29 Dextrose (Dextrose 50%) 50 ml Q30M PRN IV Hypoglycemia 05/01/19 19:30 05/09/19 07:29 Docusate Sodium (Colace) 100 mg TWICE A DAY ORAL 05/02/19 09:00 05/31/19 08:59 Ertapenem 1 gm/ Sodium Chloride 55 ml @ 110 mls/hr Q24H IVPB 05/02/19 15:00 05/07/19 14:59 05/02/19 15:19 Escitalopram Oxalate (Lexapro) 10 mg DAILY ORAL 05/02/19 09:00 05/27/19 08:59 05/02/19 10:09 Insulin Aspart (NovoLOG) BEFORE MEALS AND HS SUBQ 05/01/19 21:00 05/09/19 13:29 05/02/19 21:09 Insulin Aspart (NovoLOG) 14 units NOVOTIAC SUBQ 05/02/19 16:50 05/10/19 07:29 05/02/19 17:10 Insulin Detemir (Levemir) 24 units QHS SUBQ 05/02/19 21:00 05/09/19 20:59 05/02/19 21:07 Iron Sucrose 100 mg/Sodium Chloride 60 ml @ 240 mls/hr BEDTIME IV 05/01/19 21:00 05/04/19 21:14 05/02/19 20:53 Levothyroxine Sodium (Synthroid) 75 mcg ACBREAKFAST ORAL 05/02/19 06:30 05/27/19 06:29 05/03/19 05:59 Levothyroxine Sodium (Synthroid) 100 mcg ACBREAKFAST ORAL 05/02/19 06:30 05/09/19 06:29 05/03/19 05:59 Methylprednisolone Sodium Succinate (Solu-MEDROL) 60 mg DAILY IVP 05/02/19 09:00 05/30/19 08:59 05/02/19 10:09 Nitroglycerin (Ntg) 0.4 mg Q5M X 3 DOSES PRN SL Prn Chest Pain 05/01/19 19:00 05/08/19 21:29 Ondansetron HCl (Zofran) 4 mg Q6H PRN IVP Nausea & Vomiting 05/01/19 19:16 05/31/19 19:15 Oxymetazoline HCl (Afrin Nasal [place]) 1 spray Q6H PRN NASAL nasal congestion 05/01/19 19:16 05/31/19 19:15 Polyethylene Glycol (Miralax) 17 gm BEDTIME ORAL 05/01/19 21:00 05/31/19 20:59 05/01/19 20:37 Promethazine HCl/ Codeine (Phenergan with Codeine) 5 ml Q6H PRN ORAL cough 05/01/19 19:17 05/31/19 19:16 05/02/19 23:40 Tamsulosin HCl (Flomax) 0.4 mg BEDTIME ORAL 05/01/19 21:00 05/09/19 20:59 05/02/19 20:56 Vancomycin HCl (Vanco rx to dose) 1 ea DAILY PRN MISC Per rx protocol 05/02/19 09:00 05/29/19 12:29 Vancomycin HCl 1 gm/Dextrose 275 ml @ 183.708 mls/hr Q8H IVPB 05/01/19 21:00 05/06/19 12:59 05/03/19 05:57 Geovanni To MD May 03, 2019 06:43
[2019-05-03] MEDS: Carvedilol 6.25mg Tab ORAL SCH ×2 (09:27→21:30)
[2019-05-03] MEDS: Eliquis 5mg tablet ORAL SCH ×2 (09:27→17:39)
[2019-05-03] MEDS: Solu-MEDROL 125mg Inj IVP SCH (09:27)
[2019-05-03] MEDS: Docusate 100mg cap ORAL SCH ×2 (09:27→17:39)
--- NOTE | 2019-05-03 11:05 | GI Progress Note ---
Assessment/Plan Problems: (1) Diabetes mellitus ICD Codes: E11.9 - Type 2 diabetes mellitus without complications SNOMED: 83516488 (2) Anemia ICD Codes: D64.9 - Anemia, unspecified SNOMED: 105461401 Status: unchanged Status Narrative Discussed with Dr. La. Assessment/Plan This is a 73-year-old male with COPD exacerbation and new-onset diabetes given hemoglobin A1c is high. recommend endoscopy and colonoscopy given anemia at some point, but given the recent COPD exacerbation and still currently recovering from that, we will defer. anemia work up check ferritin OB stool r/o GI bleed monitor H&H, prn transfusions bowel regimen ppi fu labs will consider GI procedures if emergent, otherwise outpatient The patient was seen and examined at bedside and all new and available data was reviewed in the patients chart. I agree with the above findings, impression and plan. (Patient seen earlier today. Signature stamp does not reflect patient encounter time.). - Christiano La MD Subjective Gastrointestinal/Abdominal: Reports: no symptoms Objective Last 24 Hour Vital Signs Date Time Temp Pulse Resp B/P (MAP) Pulse Ox O2 Delivery O2 Flow Rate FiO2 05/03/19 09:27 77 119/77 05/03/19 08:35 76 16 96 30 05/03/19 08:35 96 Bi-Pap 30 05/03/19 08:32 76 18 96 Bi-Pap 80 22 86 05/03/19 04:49 74 18 96 Nasal Cannula 3.0 32 70 18 94 05/03/19 04:00 98.7 78 18 137/98 (111) 98 78 05/03/19 00:14 97.4 85 20 139/74 (95) 98 05/03/19 00:13 98.1 05/02/19 21:50 Nasal Cannula 2.0 05/02/19 21:36 78 20 98 Nasal Cannula 3.0 32 73 18 95 05/02/19 21:35 93 Nasal Cannula 3.0 32 05/02/19 20:56 86 119/76 05/02/19 20:00 98.1 86 15 119/78 (92) 98 86 05/02/19 16:00 98.0 83 22 113/76 (88) 94 05/02/19 12:00 98.5 77 22 96/61 (73) 93 Intake and Output 05/02/19 05/03/19 19:00 07:00 Intake Total 1730 ml Output Total 600 ml 1000 ml Balance 1130 ml -1000 ml Intake Oral 1400 ml IV Total 330 ml Output Urine Total 600 ml 1000 ml # Bowel Movements 2 Laboratory Tests Test 05/02/19 15:00 05/02/19 16:10 05/03/19 04:00 Stool Occult Blood Pending Urine Color Pale yellow Urine Appearance Cloudy Urine pH 5 (4.5-8.0) Urine Specific [place] 1.020 (1.005-1.035) Urine Protein 1+ (NEGATIVE) H Urine Glucose (UA) 2+ (NEGATIVE) H Urine Ketones Negative (NEGATIVE) Urine Blood 2+ (NEGATIVE) H Urine Nitrite Negative (NEGATIVE) Urine Bilirubin Negative (NEGATIVE) Urine Urobilinogen Normal MG/DL (0.0-1.0) Urine Leukocyte Esterase 3+ (NEGATIVE) H Urine RBC 10-15 /HPF (0 - 0) H Urine WBC 30-40 /HPF (0 - 0) H Urine Squamous Epithelial Cells Few /LPF (NONE/OCC) Urine Calcium Oxalate Crystals Few /LPF (NONE) Urine Bacteria Many /HPF (NONE) H Urine Yeast Many /HPF (NONE) H White Blood Count 13.1 K/UL (4.8-10.8) H Red Blood Count 4.19 M/UL (4.70-6.10) L Hemoglobin 12.5 G/DL (14.2-18.0) L Hematocrit 38.1 % (42.0-52.0) L Mean Corpuscular Volume 91 FL (80-99) Mean Corpuscular Hemoglobin 29.8 PG (27.0-31.0) Mean Corpuscular Hemoglobin Concent 32.8 G/DL (32.0-36.0) Red Cell Distribution Width 14.7 % (11.6-14.8) Platelet Count 314 K/UL (150-450) Mean Platelet Volume 6.0 FL (6.5-10.1) L Neutrophils (%) (Auto) 68.4 % (45.0-75.0) Lymphocytes (%) (Auto) 19.6 % (20.0-45.0) L Monocytes (%) (Auto) 8.0 % (1.0-10.0) Eosinophils (%) (Auto) 2.2 % (0.0-3.0) Basophils (%) (Auto) 1.7 % (0.0-2.0) Sodium Level 142 MMOL/L (136-145) Potassium Level 4.4 MMOL/L (3.5-5.1) Chloride Level 104 MMOL/L (98-107) Carbon Dioxide Level 34 MMOL/L (21-32) H Anion Gap 4 mmol/L (5-15) L Blood Urea Nitrogen 17 mg/dL (7-18) Creatinine 1.0 MG/DL (0.55-1.30) Estimat Glomerular Filtration Rate > 60 mL/min (>60) Glucose Level 195 MG/DL (74-106) H Calcium Level 9.2 MG/DL (8.5-10.1) Vancomycin Level Trough 19.8 ug/mL (5.0-12.0) H Microbiology Date/Time Source Procedure Growth Status 05/02/19 16:10 Urine,Clean Catch Urine Culture - Preliminary NO GROWTH Resulted Height (Feet): 6 Height (Inches): 0.00 Weight (Pounds): 193 General Appearance: WD/WN, no apparent distress, alert Cardiovascular: normal rate Respiratory/Chest: normal breath sounds, no respiratory distress Abdominal Exam: normal bowel sounds, non tender, soft Extremities: non-tender Jeane Mosley NP May 03, 2019 11:05
[2019-05-03 11:58] VITALS: BP 109/76
--- NOTE | 2019-05-03 13:10 | Pulmonology Progress Note ---
Assessment/Plan Problems: (1) Nosocomial pneumonia (2) Respiratory failure with hypoxia (3) COPD exacerbation (4) Pneumonia (5) Pacemaker (6) Diabetes mellitus (7) Prostate cancer Assessment/Plan on and off bipap sputum showing dale got Zosyn, ceftriaxone, Levofloxacin previously still short of breath, loud rhonchi sliding scale pt doesn't want diabetic diet Subjective ROS Limited/Unobtainable: Yes Interval Events: still coughing, short of breath, on and off bipap Allergies: Coded Allergies: No Known Allergies (Unverified , 10/24/16) Objective Last 24 Hour Vital Signs Date Time Temp Pulse Resp B/P (MAP) Pulse Ox O2 Delivery O2 Flow Rate FiO2 05/03/19 11:58 97.6 75 17 109/76 (87) 92 05/03/19 11:05 74 16 93 30 05/03/19 09:27 77 119/77 05/03/19 08:35 76 16 96 30 05/03/19 08:35 96 Bi-Pap 30 05/03/19 08:32 76 18 96 Bi-Pap 80 22 86 05/03/19 04:49 74 18 96 Nasal Cannula 3.0 32 70 18 94 05/03/19 04:00 98.7 78 18 137/98 (111) 98 78 05/03/19 00:14 97.4 85 20 139/74 (95) 98 05/03/19 00:13 98.1 05/02/19 21:50 Nasal Cannula 2.0 05/02/19 21:36 78 20 98 Nasal Cannula 3.0 32 73 18 95 05/02/19 21:35 93 Nasal Cannula 3.0 32 05/02/19 20:56 86 119/76 05/02/19 20:00 98.1 86 15 119/78 (92) 98 86 05/02/19 16:00 98.0 83 22 113/76 (88) 94 Intake and Output 05/02/19 05/03/19 19:00 07:00 Intake Total 1730 ml Output Total 600 ml 1000 ml Balance 1130 ml -1000 ml Intake Oral 1400 ml IV Total 330 ml Output Urine Total 600 ml 1000 ml # Bowel Movements 2 General Appearance: WD/WN HEENT: normocephalic, atraumatic Respiratory/Chest: chest wall non-tender, lungs clear Cardiovascular: normal peripheral pulses, regular rhythm Abdomen: normal bowel sounds, non distended Extremities: no cyanosis Skin: no ulcers Microbiology Date/Time Source Procedure Growth Status 05/01/19 17:00 Sputum Gram Stain - Final Complete 05/01/19 17:00 Sputum Culture - Final [place] Albicans Usual Upper Respiratory Astrid Complete 05/02/19 16:10 Urine,Clean Catch Urine Culture - Preliminary NO GROWTH Resulted Laboratory Tests 05/02/19 15:00: Stool Occult Blood Positive 05/02/19 16:10: Urine Color Pale yellow, Urine Appearance Cloudy, Urine pH 5, Urine Specific [place] 1.020, Urine Protein 1+H, Urine Glucose (UA) 2+H, Urine Ketones Negative , Urine Blood 2+H, Urine Nitrite Negative, Urine Bilirubin Negative, Urine Urobilinogen Normal, Urine Leukocyte Esterase 3+H, Urine RBC 10-15H, Urine WBC 30-40H, Urine Squamous Epithelial Cells Few, Urine Calcium Oxalate Crystals Few , Urine Bacteria ManyH, Urine Yeast ManyH 05/03/19 04:00: White Blood Count 13.1H, Red Blood Count 4.19L, Hemoglobin 12.5L, Hematocrit 38.1L, Mean Corpuscular Volume 91, Mean Corpuscular Hemoglobin 29.8, Mean Corpuscular Hemoglobin Concent 32.8, Red Cell Distribution Width 14.7, Platelet Count 314, Mean Platelet Volume 6.0L, Neutrophils (%) (Auto) 68.4, Lymphocytes ( %) (Auto) 19.6L, Monocytes (%) (Auto) 8.0, Eosinophils (%) (Auto) 2.2, Basophils (%) (Auto) 1.7, Sodium Level 142, Potassium Level 4.4, Chloride Level 104, Carbon Dioxide Level 34H, Anion Gap 4L, Blood Urea Nitrogen 17, Creatinine 1.0, Estimat Glomerular Filtration Rate > 60, Glucose Level 195H, Calcium Level 9.2, Vancomycin Level Trough 19.8H Current Medications Medications (Trade) Dose Ordered Sig/Dejon Route PRN Reason Start Time Stop Time Status Last Admin Dose Admin Acetaminophen (Tylenol) 650 mg Q4H PRN ORAL fever 05/01/19 19:14 05/31/19 19:13 05/02/19 01:18 Acetaminophen/ Hydrocodone Bitart ([place] 5/325) 1 tab Q6H PRN ORAL Severe Pain (Pain Scale 7-10) 05/01/19 19:16 05/08/19 19:15 05/02/19 23:37 Albuterol/ Ipratropium (Albuterol/ Ipratropium) 3 ml Q4H PRN HHN Shortness of Breath 05/01/19 19:16 05/06/19 19:15 05/03/19 08:32 Apixaban (Eliquis) 5 mg BID ORAL 05/02/19 09:00 05/09/19 08:59 05/03/19 09:27 Carvedilol (Coreg) 6.25 mg EVERY 12 HOURS ORAL 05/01/19 21:00 05/09/19 08:59 05/03/19 09:27 Clonidine HCl (Catapres Tab) 0.1 mg Q4H PRN ORAL sbp more than 160 05/01/19 19:14 05/31/19 19:13 Clotrimazole (Lotrimin) 1 applic THREE TIMES A DAY TOPIC 05/02/19 09:00 05/20/19 12:59 05/03/19 12:35 Dextrose (Dextrose 50%) 25 ml Q30M PRN IV Hypoglycemia 05/01/19 19:30 05/09/19 15:29 Dextrose (Dextrose 50%) 50 ml Q30M PRN IV Hypoglycemia 05/01/19 19:30 05/09/19 07:29 Docusate Sodium (Colace) 100 mg TWICE A DAY ORAL 05/02/19 09:00 05/31/19 08:59 05/03/19 09:27 Ertapenem 1 gm/ Sodium Chloride 55 ml @ 110 mls/hr Q24H IVPB 05/02/19 15:00 05/07/19 14:59 05/02/19 15:19 Escitalopram Oxalate (Lexapro) 10 mg DAILY ORAL 05/02/19 09:00 05/27/19 08:59 05/03/19 09:27 Insulin Aspart (NovoLOG) BEFORE MEALS AND HS SUBQ 05/01/19 21:00 05/09/19 13:29 05/03/19 12:23 Insulin Aspart (NovoLOG) 14 units NOVOTIAC SUBQ 05/02/19 16:50 05/10/19 07:29 05/03/19 12:23 Insulin Detemir (Levemir) 24 units QHS SUBQ 05/02/19 21:00 05/09/19 20:59 05/02/19 21:07 Iron Sucrose 100 mg/Sodium Chloride 60 ml @ 240 mls/hr BEDTIME IV 05/01/19 21:00 05/04/19 21:14 05/02/19 20:53 Levothyroxine Sodium (Synthroid) 75 mcg ACBREAKFAST ORAL 05/02/19 06:30 05/27/19 06:29 05/03/19 05:59 Levothyroxine Sodium (Synthroid) 100 mcg ACBREAKFAST ORAL 05/02/19 06:30 05/09/19 06:29 05/03/19 05:59 Methylprednisolone Sodium Succinate (Solu-MEDROL) 30 mg DAILY IVP 05/04/19 09:00 05/30/19 08:59 UNV Nitroglycerin (Ntg) 0.4 mg Q5M X 3 DOSES PRN SL Prn Chest Pain 05/01/19 19:00 05/08/19 21:29 Ondansetron HCl (Zofran) 4 mg Q6H PRN IVP Nausea & Vomiting 05/01/19 19:16 05/31/19 19:15 Oxymetazoline HCl (Afrin Nasal [place]) 1 spray Q6H PRN NASAL nasal congestion 05/01/19 19:16 05/31/19 19:15 Polyethylene Glycol (Miralax) 17 gm BEDTIME ORAL 05/01/19 21:00 05/31/19 20:59 05/01/19 20:37 Promethazine HCl/ Codeine (Phenergan with Codeine) 5 ml Q6H PRN ORAL cough 05/01/19 19:17 05/31/19 19:16 05/02/19 23:40 Tamsulosin HCl (Flomax) 0.4 mg BEDTIME ORAL 05/01/19 21:00 05/09/19 20:59 05/02/19 20:56 Vancomycin HCl (Vanco rx to dose) 1 ea DAILY PRN MISC Per rx protocol 05/02/19 09:00 05/29/19 12:29 Vancomycin HCl 1 gm/Dextrose 275 ml @ 183.708 mls/hr Q8H IVPB 05/01/19 21:00 05/06/19 12:59 05/03/19 12:35 Goldie Obrien MD May 03, 2019 13:10
--- NOTE | 2019-05-03 14:35 | Infectious Diseases Prog Note ---
Assessment/Plan Assessment/Plan Assessment: Acute hypoxic respiratory failure , back on bipap COPD exacerbation CHF exacerbation PNA -04/29 CXRLThere is bilateral interstitial congestion again demonstrated, appearing unchanged. No focal airspace consolidation. There is some atelectasis at the left lung base. -04/27 CXR: Borderline cardiomegaly. Questionable mild interstitial congestion , new or increased from previous study if real. -04/21 CTA chest:Somewhat limited exam, due to motion artifact. No definite evidence of pulmonary embolus or other acute thoracic vascular pathology. Borderline cardiomegaly. Diffuse bilateral pulmonary parenchymal groundglass opacity. Interspersed small bullae digestive this is due to COPD changes, but could also indicate a component of pulmonary edema. Considerable consolidation in the right lower lobe, likely pneumonia. Less extensive consolidation and atelectasis is seen at the left lung base. Pacemaker, degenerative spondylosis incidentally noted sp cx normal resp michael -04/19 CXR: Mild pulmonary vascular congestion -04/16 CXR: No acute disease -04/13 CXR: Suspected mild pulmonary vascular congestion. Correlate clinically -04/08 CXR: Mild pulmonary vascular congestion suspected Afebrile Leukocytosis,(pn steroids) KAYLAN, improving Hyperglycemia COPD CAD CHF prostate cancer s/p PPM former smoker Plan: -ON IVErtapenem # 5/7 per pulm DC Vancomycin # 5 -04/28 SP Zosyn #8 -04/15 SP Levaquin #7 -04/08 SP Ceftriaxone x1, Azithromycin x1 -Monitor CBC/CMP, temperatures -aspiration precautions -sp cx Thank you for this consultation. Will continue to follow along with you. Subjective Allergies: Coded Allergies: No Known Allergies (Unverified , 10/24/16) Subjective afebrile wbc increased today Objective Vital Signs Last 24 Hour Vital Signs Date Time Temp Pulse Resp B/P (MAP) Pulse Ox O2 Delivery O2 Flow Rate FiO2 05/03/19 13:25 72 16 95 30 05/03/19 11:58 97.6 75 17 109/76 (87) 92 05/03/19 11:05 74 16 93 30 05/03/19 09:27 77 119/77 05/03/19 08:35 76 16 96 30 05/03/19 08:35 96 Bi-Pap 30 05/03/19 08:32 76 18 96 Bi-Pap 80 22 86 05/03/19 04:49 74 18 96 Nasal Cannula 3.0 32 70 18 94 05/03/19 04:00 98.7 78 18 137/98 (111) 98 78 05/03/19 00:14 97.4 85 20 139/74 (95) 98 05/03/19 00:13 98.1 05/02/19 21:50 Nasal Cannula 2.0 05/02/19 21:36 78 20 98 Nasal Cannula 3.0 32 73 18 95 05/02/19 21:35 93 Nasal Cannula 3.0 32 05/02/19 20:56 86 119/76 05/02/19 20:00 98.1 86 15 119/78 (92) 98 86 05/02/19 16:00 98.0 83 22 113/76 (88) 94 Height (Feet): 6 Height (Inches): 0.00 Weight (Pounds): 193 Respiratory/Chest: no respiratory distress Cardiovascular: normal rate Abdomen: soft, non tender Microbiology Date/Time Source Procedure Growth Status 05/01/19 17:00 Sputum Gram Stain - Final Complete 05/01/19 17:00 Sputum Culture - Final Randi Albicans Usual Upper Respiratory Michael Complete 05/02/19 16:10 Urine,Clean Catch Urine Culture - Preliminary NO GROWTH Resulted Laboratory Tests Test 05/02/19 15:00 05/02/19 16:10 05/03/19 04:00 Stool Occult Blood Positive (NEGATIVE) Urine Color Pale yellow Urine Appearance Cloudy Urine pH 5 (4.5-8.0) Urine Specific [place] 1.020 (1.005-1.035) Urine Protein 1+ (NEGATIVE) H Urine Glucose (UA) 2+ (NEGATIVE) H Urine Ketones Negative (NEGATIVE) Urine Blood 2+ (NEGATIVE) H Urine Nitrite Negative (NEGATIVE) Urine Bilirubin Negative (NEGATIVE) Urine Urobilinogen Normal MG/DL (0.0-1.0) Urine Leukocyte Esterase 3+ (NEGATIVE) H Urine RBC 10-15 /HPF (0 - 0) H Urine WBC 30-40 /HPF (0 - 0) H Urine Squamous Epithelial Cells Few /LPF (NONE/OCC) Urine Calcium Oxalate Crystals Few /LPF (NONE) Urine Bacteria Many /HPF (NONE) H Urine Yeast Many /HPF (NONE) H White Blood Count 13.1 K/UL (4.8-10.8) H Red Blood Count 4.19 M/UL (4.70-6.10) L Hemoglobin 12.5 G/DL (14.2-18.0) L Hematocrit 38.1 % (42.0-52.0) L Mean Corpuscular Volume 91 FL (80-99) Mean Corpuscular Hemoglobin 29.8 PG (27.0-31.0) Mean Corpuscular Hemoglobin Concent 32.8 G/DL (32.0-36.0) Red Cell Distribution Width 14.7 % (11.6-14.8) Platelet Count 314 K/UL (150-450) Mean Platelet Volume 6.0 FL (6.5-10.1) L Neutrophils (%) (Auto) 68.4 % (45.0-75.0) Lymphocytes (%) (Auto) 19.6 % (20.0-45.0) L Monocytes (%) (Auto) 8.0 % (1.0-10.0) Eosinophils (%) (Auto) 2.2 % (0.0-3.0) Basophils (%) (Auto) 1.7 % (0.0-2.0) Sodium Level 142 MMOL/L (136-145) Potassium Level 4.4 MMOL/L (3.5-5.1) Chloride Level 104 MMOL/L (98-107) Carbon Dioxide Level 34 MMOL/L (21-32) H Anion Gap 4 mmol/L (5-15) L Blood Urea Nitrogen 17 mg/dL (7-18) Creatinine 1.0 MG/DL (0.55-1.30) Estimat Glomerular Filtration Rate > 60 mL/min (>60) Glucose Level 195 MG/DL (74-106) H Calcium Level 9.2 MG/DL (8.5-10.1) Vancomycin Level Trough 19.8 ug/mL (5.0-12.0) H Current Medications Medications (Trade) Dose Ordered Sig/Dejon Route PRN Reason Start Time Stop Time Status Last Admin Dose Admin Acetaminophen (Tylenol) 650 mg Q4H PRN ORAL fever 05/01/19 19:14 05/31/19 19:13 05/02/19 01:18 Acetaminophen/ Hydrocodone Bitart ([place] 5/325) 1 tab Q6H PRN ORAL Severe Pain (Pain Scale 7-10) 05/01/19 19:16 05/08/19 19:15 05/02/19 23:37 Albuterol/ Ipratropium (Albuterol/ Ipratropium) 3 ml Q4H PRN HHN Shortness of Breath 05/01/19 19:16 05/06/19 19:15 05/03/19 08:32 Apixaban (Eliquis) 5 mg BID ORAL 05/02/19 09:00 05/09/19 08:59 05/03/19 09:27 Carvedilol (Coreg) 6.25 mg EVERY 12 HOURS ORAL 05/01/19 21:00 05/09/19 08:59 05/03/19 09:27 Clonidine HCl (Catapres Tab) 0.1 mg Q4H PRN ORAL sbp more than 160 05/01/19 19:14 05/31/19 19:13 Clotrimazole (Lotrimin) 1 applic THREE TIMES A DAY TOPIC 05/02/19 09:00 05/20/19 12:59 05/03/19 12:35 Dextrose (Dextrose 50%) 25 ml Q30M PRN IV Hypoglycemia 05/01/19 19:30 05/09/19 15:29 Dextrose (Dextrose 50%) 50 ml Q30M PRN IV Hypoglycemia 05/01/19 19:30 05/09/19 07:29 Docusate Sodium (Colace) 100 mg TWICE A DAY ORAL 05/02/19 09:00 05/31/19 08:59 05/03/19 09:27 Ertapenem 1 gm/ Sodium Chloride 55 ml @ 110 mls/hr Q24H IVPB 05/02/19 15:00 05/07/19 14:59 05/02/19 15:19 Escitalopram Oxalate (Lexapro) 10 mg DAILY ORAL 05/02/19 09:00 05/27/19 08:59 05/03/19 09:27 Insulin Aspart (NovoLOG) BEFORE MEALS AND HS SUBQ 05/01/19 21:00 05/09/19 13:29 05/03/19 12:23 Insulin Aspart (NovoLOG) 14 units NOVOTIAC SUBQ 05/02/19 16:50 05/10/19 07:29 05/03/19 12:23 Insulin Detemir (Levemir) 24 units QHS SUBQ 05/02/19 21:00 05/09/19 20:59 05/02/19 21:07 Iron Sucrose 100 mg/Sodium Chloride 60 ml @ 240 mls/hr BEDTIME IV 05/01/19 21:00 05/04/19 21:14 05/02/19 20:53 Levothyroxine Sodium (Synthroid) 75 mcg ACBREAKFAST ORAL 05/02/19 06:30 05/27/19 06:29 05/03/19 05:59 Levothyroxine Sodium (Synthroid) 100 mcg ACBREAKFAST ORAL 05/02/19 06:30 05/09/19 06:29 05/03/19 05:59 Methylprednisolone Sodium Succinate (Solu-MEDROL) 30 mg DAILY IVP 05/04/19 09:00 05/30/19 08:59 Nitroglycerin (Ntg) 0.4 mg Q5M X 3 DOSES PRN SL Prn Chest Pain 05/01/19 19:00 05/08/19 21:29 Ondansetron HCl (Zofran) 4 mg Q6H PRN IVP Nausea & Vomiting 05/01/19 19:16 05/31/19 19:15 Oxymetazoline HCl (Afrin Nasal [place]) 1 spray Q6H PRN NASAL nasal congestion 05/01/19 19:16 05/31/19 19:15 Polyethylene Glycol (Miralax) 17 gm BEDTIME ORAL 05/01/19 21:00 05/31/19 20:59 05/01/19 20:37 Promethazine HCl/ Codeine (Phenergan with Codeine) 5 ml Q6H PRN ORAL cough 05/01/19 19:17 05/31/19 19:16 05/02/19 23:40 Tamsulosin HCl (Flomax) 0.4 mg BEDTIME ORAL 05/01/19 21:00 05/09/19 20:59 05/02/19 20:56 Vancomycin HCl (Vanco rx to dose) 1 ea DAILY PRN MISC Per rx protocol 05/02/19 09:00 05/29/19 12:29 Vancomycin HCl 1 gm/Dextrose 275 ml @ 183.708 mls/hr Q8H IVPB 05/01/19 21:00 05/06/19 12:59 05/03/19 12:35 Robert Canela MD May 03, 2019 14:35
[2019-05-03] MEDS: Ertapenem 1 GM in NS 55 ML IVPB SCH (15:00)
[2019-05-03 15:59] VITALS: BP 127/91
[2019-05-03] MEDS: HYDROcodone/Acetamin 5/325 tab ORAL PRN (17:50)
--- NOTE | 2019-05-03 19:37 | Internal Med Progress Note ---
Subjective Date of Service: May 03, 2019 Physician Name LugoIdris Attending Physician Jewel Giraldo MD Current Medications Medications (Trade) Dose Ordered Sig/Dejon Route PRN Reason Start Time Stop Time Status Last Admin Dose Admin Acetaminophen (Tylenol) 650 mg Q4H PRN ORAL fever 05/01/19 19:14 05/31/19 19:13 05/02/19 01:18 Acetaminophen/ Hydrocodone Bitart ([place] 5/325) 1 tab Q6H PRN ORAL Severe Pain (Pain Scale 7-10) 05/01/19 19:16 05/08/19 19:15 05/03/19 17:50 Albuterol/ Ipratropium (Albuterol/ Ipratropium) 3 ml Q4H PRN HHN Shortness of Breath 05/01/19 19:16 05/06/19 19:15 05/03/19 08:32 Apixaban (Eliquis) 5 mg BID ORAL 05/02/19 09:00 05/09/19 08:59 05/03/19 17:39 Carvedilol (Coreg) 6.25 mg EVERY 12 HOURS ORAL 05/01/19 21:00 05/09/19 08:59 05/03/19 09:27 Clonidine HCl (Catapres Tab) 0.1 mg Q4H PRN ORAL sbp more than 160 05/01/19 19:14 05/31/19 19:13 Clotrimazole (Lotrimin) 1 applic THREE TIMES A DAY TOPIC 05/02/19 09:00 05/20/19 12:59 05/03/19 17:40 Dextrose (Dextrose 50%) 25 ml Q30M PRN IV Hypoglycemia 05/01/19 19:30 05/09/19 15:29 Dextrose (Dextrose 50%) 50 ml Q30M PRN IV Hypoglycemia 05/01/19 19:30 05/09/19 07:29 Docusate Sodium (Colace) 100 mg TWICE A DAY ORAL 05/02/19 09:00 05/31/19 08:59 05/03/19 17:39 Ertapenem 1 gm/ Sodium Chloride 55 ml @ 110 mls/hr Q24H IVPB 05/02/19 15:00 05/07/19 14:59 05/03/19 15:00 Escitalopram Oxalate (Lexapro) 10 mg DAILY ORAL 05/02/19 09:00 05/27/19 08:59 05/03/19 09:27 Insulin Aspart (NovoLOG) BEFORE MEALS AND HS SUBQ 05/01/19 21:00 05/09/19 13:29 05/03/19 12:23 Insulin Aspart (NovoLOG) 14 units NOVOTIAC SUBQ 05/02/19 16:50 05/10/19 07:29 05/03/19 12:23 Insulin Detemir (Levemir) 24 units QHS SUBQ 05/02/19 21:00 05/09/19 20:59 05/02/19 21:07 Iron Sucrose 100 mg/Sodium Chloride 60 ml @ 240 mls/hr BEDTIME IV 05/01/19 21:00 05/04/19 21:14 05/02/19 20:53 Levothyroxine Sodium (Synthroid) 75 mcg ACBREAKFAST ORAL 05/02/19 06:30 05/27/19 06:29 05/03/19 05:59 Levothyroxine Sodium (Synthroid) 100 mcg ACBREAKFAST ORAL 05/02/19 06:30 05/09/19 06:29 05/03/19 05:59 Methylprednisolone Sodium Succinate (Solu-MEDROL) 30 mg DAILY IVP 05/04/19 09:00 05/30/19 08:59 Nitroglycerin (Ntg) 0.4 mg Q5M X 3 DOSES PRN SL Prn Chest Pain 05/01/19 19:00 05/08/19 21:29 Ondansetron HCl (Zofran) 4 mg Q6H PRN IVP Nausea & Vomiting 05/01/19 19:16 05/31/19 19:15 Oxymetazoline HCl (Afrin Nasal [place]) 1 spray Q6H PRN NASAL nasal congestion 05/01/19 19:16 05/31/19 19:15 Polyethylene Glycol (Miralax) 17 gm BEDTIME ORAL 05/01/19 21:00 05/31/19 20:59 05/01/19 20:37 Promethazine HCl/ Codeine (Phenergan with Codeine) 5 ml Q6H PRN ORAL cough 05/01/19 19:17 05/31/19 19:16 05/02/19 23:40 Tamsulosin HCl (Flomax) 0.4 mg BEDTIME ORAL 05/01/19 21:00 05/09/19 20:59 05/02/19 20:56 Allergies: Coded Allergies: No Known Allergies (Unverified , 10/24/16) ROS Limited/Unobtainable: No Constitutional: Reports: no symptoms HEENT: Reports: no symptoms Cardiovascular: Reports: no symptoms Respiratory: Reports: shortness of breath Gastrointestinal/Abdominal: Reports: no symptoms Genitourinary: Reports: no symptoms Neurologic/Psychiatric: Reports: no symptoms Subjective 73 YO M admitted with COPD exacerbation. Now respiratory failure and pneumonia. Cover for Int Med-DR Giraldo. CALVIN Objective Last Vital Signs Date Time Temp Pulse Resp B/P (MAP) Pulse Ox O2 Delivery O2 Flow Rate FiO2 05/03/19 19:32 94 Nasal Cannula 3.0 32 05/03/19 18:20 98.0 05/03/19 16:30 88 20 05/03/19 15:59 127/91 (103) Laboratory Tests Test 05/03/19 04:00 White Blood Count 13.1 K/UL (4.8-10.8) H Red Blood Count 4.19 M/UL (4.70-6.10) L Hemoglobin 12.5 G/DL (14.2-18.0) L Hematocrit 38.1 % (42.0-52.0) L Mean Corpuscular Volume 91 FL (80-99) Mean Corpuscular Hemoglobin 29.8 PG (27.0-31.0) Mean Corpuscular Hemoglobin Concent 32.8 G/DL (32.0-36.0) Red Cell Distribution Width 14.7 % (11.6-14.8) Platelet Count 314 K/UL (150-450) Mean Platelet Volume 6.0 FL (6.5-10.1) L Neutrophils (%) (Auto) 68.4 % (45.0-75.0) Lymphocytes (%) (Auto) 19.6 % (20.0-45.0) L Monocytes (%) (Auto) 8.0 % (1.0-10.0) Eosinophils (%) (Auto) 2.2 % (0.0-3.0) Basophils (%) (Auto) 1.7 % (0.0-2.0) Sodium Level 142 MMOL/L (136-145) Potassium Level 4.4 MMOL/L (3.5-5.1) Chloride Level 104 MMOL/L (98-107) Carbon Dioxide Level 34 MMOL/L (21-32) H Anion Gap 4 mmol/L (5-15) L Blood Urea Nitrogen 17 mg/dL (7-18) Creatinine 1.0 MG/DL (0.55-1.30) Estimat Glomerular Filtration Rate > 60 mL/min (>60) Glucose Level 195 MG/DL (74-106) H Calcium Level 9.2 MG/DL (8.5-10.1) Vancomycin Level Trough 19.8 ug/mL (5.0-12.0) H Microbiology Date/Time Source Procedure Growth Status 05/01/19 17:00 Sputum Gram Stain - Final Complete 05/01/19 17:00 Sputum Culture - Final Randi Albicans Usual Upper Respiratory Astrid Complete 05/02/19 16:10 Urine,Clean Catch Urine Culture - Preliminary NO GROWTH Resulted Intake and Output 05/02/19 05/03/19 19:00 07:00 Intake Total 1730 ml Output Total 600 ml 1000 ml Balance 1130 ml -1000 ml Intake Oral 1400 ml IV Total 330 ml Output Urine Total 600 ml 1000 ml # Bowel Movements 2 Objective PHYSICAL EXAMINATION: GENERAL: The patient is awake, responsive, no acute distress. HEAD AND NECK: Pupils are equal and reactive to light. Extraocular muscles intact. Neck was supple. No JVD. LUNGS: BIPAP;The patient has expiratory wheezes noted. Tachypneic. No rhonchi was noted. HEART: S1, S2. Irregular. No murmur. The patient has a pacemaker in the left-sided chest wall. ABDOMEN: Soft, nondistended, nontender. Mildly obese. EXTREMITIES: No cyanosis, clubbing, edema. NEUROLOGIC: Cranial nerves II through XII grossly normal. Motor is 5/5 in all extremities. Gait is intact. GENITOURINARY: It was noted the patient has a [place] catheter. RECTAL: Refused and deferred. PSYCHIATRIC: Mood and affect is intact. Assessment/Plan Assessment/Plan ASSESSMENT: 1. Acute hypoxemic respiratory failure, most likely secondary to acute COPD exacerbation. 2. Acute COPD exacerbation. 3. Pneumonia. 4. Sick sinus syndrome status post pacemaker. 5. Diabetes type 2. 6. Prostate cancer. 7. Hyperkalemia. 8. Insulin induced hyperglycemia. 9. Prostate enlargement. 10. Leukocytosis 11. RBBB PLAN: 1. Med/Surg 2. D/C Solu-Medrol IV Per Pulmonary consult=Dr. Obrien. 3. Endocrinology=Dr To. Monitor blood glucose level closely. 4. antibiotic=ertapenem and vanco. ID=Dr Villa 5. Code status is Full Code. DVT prophylaxis, he is on Eliquis. Idris Lugo MD May 03, 2019 19:37
[2019-05-03 20:00] VITALS: BP 121/79
[2019-05-03] MEDS: Miralax 17gm pkt ORAL SCH ×2 (21:00→21:17)
[2019-05-03] MEDS: Iron Sucrose 100 MG in NS 55 ML IV SCH (21:17)
[2019-05-03] MEDS: Tamsulosin 0.4mg cap ORAL SCH (21:17)
[2019-05-03] MEDS: Levemir Flexpen SUBQ SCH (22:00)
[2019-05-04] VITALS: BP 126/71
[2019-05-04] MEDS: HYDROcodone/Acetamin 5/325 tab ORAL PRN ×3 (02:17→17:30)
[2019-05-04] MEDS: Albuterol/Ipratropium 3ml neb HHN PRN ×2 (02:36→09:43)
[2019-05-04 04:00] VITALS: BP 110/68
[2019-05-04] MEDS: NovoLOG Insulin Flexpen SUBQ SCH ×7 (06:01→21:00)
--- NOTE | 2019-05-04 07:13 | General Progress Note ---
Assessment/Plan Problem List: (1) COPD exacerbation ICD Codes: J44.1 - Chronic obstructive pulmonary disease with (acute) exacerbation SNOMED: 789287594 (2) Respiratory failure with hypoxia ICD Codes: J96.91 - Respiratory failure, unspecified with hypoxia SNOMED: 22755588290592800 (3) Diabetes mellitus ICD Codes: E11.9 - Type 2 diabetes mellitus without complications SNOMED: 43715329 (4) Pacemaker ICD Codes: Z95.0 - Presence of cardiac pacemaker SNOMED: 297146427 (5) Prostate cancer ICD Codes: C61 - Malignant neoplasm of prostate SNOMED: 464258395 (6) Hypothyroid ICD Codes: E03.9 - Hypothyroidism, unspecified SNOMED: 27423440 Status: unchanged Assessment/Plan: continue Levemir 24 units qhs continue Novolog 14 units ac tid continue NISS ac / hs continue Levothyroxine 175 mcg qam repeat thyroid function in 3 weeks Subjective Allergies: Coded Allergies: No Known Allergies (Unverified , 10/24/16) Subjective events noted glucose values improved IVSM reduced from 58 yo 30 mg daily Item Value Date Time Bedside Blood Glucose 126 mg/dl H 05/04/19 0626 Bedside Blood Glucose 267 mg/dl H 05/03/19 2200 Bedside Blood Glucose 153 mg/dl H 05/03/19 1223 Bedside Blood Glucose 181 mg/dl H 05/03/19 0642 Objective Last 24 Hour Vital Signs Date Time Temp Pulse Resp B/P (MAP) Pulse Ox O2 Delivery O2 Flow Rate FiO2 05/04/19 04:00 97.6 73 20 110/68 (82) 100 05/04/19 02:36 84 20 96 Nasal Cannula 3.0 32 82 22 93 05/04/19 00:00 98.1 83 20 126/71 (89) 94 05/03/19 21:30 88 121/79 05/03/19 21:00 Nasal Cannula 2.0 05/03/19 20:32 79 18 95 Nasal Cannula 3.0 32 77 22 92 05/03/19 20:00 97.2 88 18 121/79 (93) 94 05/03/19 19:32 94 Nasal Cannula 3.0 32 05/03/19 18:20 98.0 05/03/19 16:30 88 20 93 05/03/19 15:59 98.0 70 18 127/91 (103) 93 2/24/20 15:11 79 15 94 30 05/03/19 13:25 72 16 95 30 05/03/19 11:58 97.6 75 17 109/76 (87) 92 05/03/19 11:05 74 16 93 30 05/03/19 09:27 77 119/77 05/03/19 09:00 Bi-pap 05/03/19 08:35 76 16 96 30 05/03/19 08:35 96 Bi-Pap 30 05/03/19 08:32 76 18 96 Bi-Pap 80 22 86 Intake and Output 05/03/19 05/04/19 19:00 07:00 Intake Total 700 ml 600 ml Output Total 650 ml 750 ml Balance 50 ml -150 ml Intake Oral 700 ml 600 ml Output Urine Total 650 ml 750 ml # Bowel Movements 3 Laboratory Tests 05/04/19 05:15: White Blood Count [Pending], Red Blood Count [Pending], Hemoglobin [Pending], Hematocrit [Pending], Mean Corpuscular Volume [Pending], Mean Corpuscular Hemoglobin [Pending], Mean Corpuscular Hemoglobin Concent [Pending], Red Cell Distribution Width [Pending], Platelet Count [Pending], Mean Platelet Volume [ Pending], Neutrophils (%) (Auto) [Pending], Lymphocytes (%) (Auto) [Pending], Monocytes (%) (Auto) [Pending], Eosinophils (%) (Auto) [Pending], Basophils (%) (Auto) [Pending], Sodium Level [Pending], Potassium Level [Pending], Chloride Level [Pending], Carbon Dioxide Level [Pending], Blood Urea Nitrogen [Pending], Creatinine [Pending], Estimat Glomerular Filtration Rate [Pending], Glucose Level [Pending], Calcium Level [Pending] Height (Feet): 6 Height (Inches): 0.00 Weight (Pounds): 193 General Appearance: no apparent distress Neck: normal alignment Cardiovascular: normal rate Respiratory/Chest: lungs clear Abdomen: normal bowel sounds Pelvis: normal external exam Objective Current Medications Medications (Trade) Dose Ordered Sig/Dejon Route PRN Reason Start Time Stop Time Status Last Admin Dose Admin Acetaminophen (Tylenol) 650 mg Q4H PRN ORAL fever 05/01/19 19:14 3/23/20 19:13 05/02/19 01:18 Acetaminophen/ Hydrocodone Bitart ([place] 5/325) 1 tab Q6H PRN ORAL Severe Pain (Pain Scale 7-10) 05/01/19 19:16 05/08/19 19:15 05/04/19 02:17 Albuterol/ Ipratropium (Albuterol/ Ipratropium) 3 ml Q4H PRN HHN Shortness of Breath 05/01/19 19:16 05/06/19 19:15 05/04/19 02:36 Apixaban (Eliquis) 5 mg BID ORAL 05/02/19 09:00 05/09/19 08:59 05/03/19 17:39 Carvedilol (Coreg) 6.25 mg EVERY 12 HOURS ORAL 05/01/19 21:00 05/09/19 08:59 05/03/19 21:30 Clonidine HCl (Catapres Tab) 0.1 mg Q4H PRN ORAL sbp more than 160 05/01/19 19:14 05/31/19 19:13 Clotrimazole (Lotrimin) 1 applic THREE TIMES A DAY TOPIC 05/02/19 09:00 05/20/19 12:59 05/03/19 17:40 Dextrose (Dextrose 50%) 25 ml Q30M PRN IV Hypoglycemia 05/01/19 19:30 05/09/19 15:29 Dextrose (Dextrose 50%) 50 ml Q30M PRN IV Hypoglycemia 05/01/19 19:30 05/09/19 07:29 Docusate Sodium (Colace) 100 mg TWICE A DAY ORAL 05/02/19 09:00 05/31/19 08:59 05/03/19 17:39 Ertapenem 1 gm/ Sodium Chloride 55 ml @ 110 mls/hr Q24H IVPB 05/02/19 15:00 05/07/19 14:59 05/03/19 15:00 Escitalopram Oxalate (Lexapro) 10 mg DAILY ORAL 05/02/19 09:00 05/27/19 08:59 05/03/19 09:27 Insulin Aspart (NovoLOG) BEFORE MEALS AND HS SUBQ 05/01/19 21:00 05/09/19 13:29 05/03/19 21:23 Insulin Aspart (NovoLOG) 14 units NOVOTIAC SUBQ 05/02/19 16:50 05/10/19 07:29 05/04/19 06:01 Insulin Detemir (Levemir) 24 units QHS SUBQ 05/02/19 21:00 05/09/19 20:59 05/03/19 22:00 Iron Sucrose 100 mg/Sodium Chloride 60 ml @ 240 mls/hr BEDTIME IV 05/01/19 21:00 05/04/19 21:14 05/03/19 21:17 Levothyroxine Sodium (Synthroid) 75 mcg ACBREAKFAST ORAL 05/02/19 06:30 05/27/19 06:29 05/04/19 05:55 Levothyroxine Sodium (Synthroid) 100 mcg ACBREAKFAST ORAL 05/02/19 06:30 05/09/19 06:29 05/04/19 05:55 Methylprednisolone Sodium Succinate (Solu-MEDROL) 30 mg DAILY IVP 05/04/19 09:00 05/30/19 08:59 Nitroglycerin (Ntg) 0.4 mg Q5M X 3 DOSES PRN SL Prn Chest Pain 05/01/19 19:00 05/08/19 21:29 Ondansetron HCl (Zofran) 4 mg Q6H PRN IVP Nausea & Vomiting 05/01/19 19:16 05/31/19 19:15 Oxymetazoline HCl (Afrin Nasal [place]) 1 spray Q6H PRN NASAL nasal congestion 05/01/19 19:16 05/31/19 19:15 Polyethylene Glycol (Miralax) 17 gm BEDTIME ORAL 05/01/19 21:00 05/31/19 20:59 05/01/19 20:37 Promethazine HCl/ Codeine (Phenergan with Codeine) 5 ml Q6H PRN ORAL cough 05/01/19 19:17 05/31/19 19:16 05/02/19 23:40 Tamsulosin HCl (Flomax) 0.4 mg BEDTIME ORAL 05/01/19 21:00 05/09/19 20:59 05/03/19 21:17 Geovanni To MD May 04, 2019 07:13
[2019-05-04 07:24] LABS: EOSINOPHILS % (AUTO) 0.6 % (0.0-3.0); HEMATOCRIT 37.4 % (42.0-52.0); HEMOGLOBIN 12.1 G/DL (14.2-18.0); LYMPHOCYTES % (AUTO) 22.9 % (20.0-45.0); MEAN CORPUSCULAR VOLUME 91 FL (80-99); MONOCYTES % (AUTO) 7.1 % (1.0-10.0); NEUTROPHILS % (AUTO) 66.4 % (45.0-75.0); PLATELET COUNT 347 K/UL (150-450); RED BLOOD COUNT 4.12 M/UL (4.70-6.10); WHITE BLOOD COUNT 12.1 K/UL (4.8-10.8)
[2019-05-04 07:57] LABS: ANION GAP 5 mmol/L (5-15); BLOOD UREA NITROGEN 27 mg/dL (7-18); CALCIUM 9.2 MG/DL (8.5-10.1); CARBON DIOXIDE 36 MMOL/L (21-32); CHLORIDE 104 MMOL/L (98-107); CREATININE 1.1 MG/DL (0.55-1.30); POTASSIUM 4.4 MMOL/L (3.5-5.1); SODIUM 145 MMOL/L (136-145)
[2019-05-04 08:00] VITALS: BP 107/76
[2019-05-04] MEDS: Carvedilol 6.25mg Tab ORAL SCH ×2 (08:45→21:01)
[2019-05-04] MEDS: Docusate 100mg cap ORAL SCH ×2 (08:46→17:26)
[2019-05-04] MEDS: Eliquis 5mg tablet ORAL SCH ×2 (08:46→17:26)
[2019-05-04] MEDS: Solu-MEDROL 40mg Inj IVP SCH (08:46)
[2019-05-04] MEDS ORDERED: D5 1/2NS 1000ml IV ONE (08:49)
--- NOTE | 2019-05-04 10:31 | GI Progress Note ---
Assessment/Plan Problems: (1) Diabetes mellitus ICD Codes: E11.9 - Type 2 diabetes mellitus without complications SNOMED: 90764484 (2) Anemia ICD Codes: D64.9 - Anemia, unspecified SNOMED: 581953080 Status: stable Status Narrative Discussed with Dr. La. Assessment/Plan This is a 73-year-old male with COPD exacerbation and new-onset diabetes given hemoglobin A1c is high. recommend endoscopy and colonoscopy given anemia at some point, but given the recent COPD exacerbation and still currently recovering from that, we will defer. anemia work up check ferritin >> WNL OB stool r/o GI bleed >> positive monitor H&H, prn transfusions bowel regimen ppi fu labs will consider GI procedures if emergent, otherwise outpatient to evaluate anemia and OB stool positive patient had recent colonoscopy last year with unknown findings The patient was seen and examined at bedside and all new and available data was reviewed in the patients chart. I agree with the above findings, impression and plan. (Patient seen earlier today. Signature stamp does not reflect patient encounter time.). - Christiano La MD Subjective Subjective headache Objective Last 24 Hour Vital Signs Date Time Temp Pulse Resp B/P (MAP) Pulse Ox O2 Delivery O2 Flow Rate FiO2 05/04/19 09:54 95 Nasal Cannula 3.0 32 05/04/19 09:44 85 20 95 Nasal Cannula 3.0 32 80 21 93 05/04/19 09:34 Nasal Cannula 2.0 05/04/19 08:45 85 103/75 05/04/19 08:38 97.6 05/04/19 08:00 97.1 85 20 107/76 (86) 97 05/04/19 04:00 97.6 73 20 110/68 (82) 100 05/04/19 02:36 84 20 96 Nasal Cannula 3.0 32 82 22 93 05/04/19 00:00 98.1 83 20 126/71 (89) 94 05/03/19 21:30 88 121/79 05/03/19 21:00 Nasal Cannula 2.0 05/03/19 20:32 79 18 95 Nasal Cannula 3.0 32 77 22 92 05/03/19 20:00 97.2 88 18 121/79 (93) 94 05/03/19 19:32 94 Nasal Cannula 3.0 32 05/03/19 16:30 88 20 93 2/24/20 15:59 98.0 70 18 127/91 (103) 93 05/03/19 15:11 79 15 94 30 05/03/19 13:25 72 16 95 30 05/03/19 11:58 97.6 75 17 109/76 (87) 92 05/03/19 11:05 74 16 93 30 Intake and Output 05/03/19 05/04/19 19:00 07:00 Intake Total 700 ml 600 ml Output Total 650 ml 750 ml Balance 50 ml -150 ml Intake Oral 700 ml 600 ml Output Urine Total 650 ml 750 ml # Bowel Movements 3 Laboratory Tests Test 05/04/19 05:15 White Blood Count 12.1 K/UL (4.8-10.8) H Red Blood Count 4.12 M/UL (4.70-6.10) L Hemoglobin 12.1 G/DL (14.2-18.0) L Hematocrit 37.4 % (42.0-52.0) L Mean Corpuscular Volume 91 FL (80-99) Mean Corpuscular Hemoglobin 29.3 PG (27.0-31.0) Mean Corpuscular Hemoglobin Concent 32.3 G/DL (32.0-36.0) Red Cell Distribution Width 16.0 % (11.6-14.8) H Platelet Count 347 K/UL (150-450) Mean Platelet Volume 5.7 FL (6.5-10.1) L Neutrophils (%) (Auto) 66.4 % (45.0-75.0) Lymphocytes (%) (Auto) 22.9 % (20.0-45.0) Monocytes (%) (Auto) 7.1 % (1.0-10.0) Eosinophils (%) (Auto) 0.6 % (0.0-3.0) Basophils (%) (Auto) 3.0 % (0.0-2.0) H Sodium Level 145 MMOL/L (136-145) Potassium Level 4.4 MMOL/L (3.5-5.1) Chloride Level 104 MMOL/L (98-107) Carbon Dioxide Level 36 MMOL/L (21-32) H Anion Gap 5 mmol/L (5-15) Blood Urea Nitrogen 27 mg/dL (7-18) H Creatinine 1.1 MG/DL (0.55-1.30) Estimat Glomerular Filtration Rate > 60 mL/min (>60) Glucose Level 125 MG/DL (74-106) H Calcium Level 9.2 MG/DL (8.5-10.1) Height (Feet): 6 Height (Inches): 0.00 Weight (Pounds): 193 General Appearance: WD/WN, no apparent distress, alert Cardiovascular: normal rate Respiratory/Chest: normal breath sounds, no respiratory distress Abdominal Exam: normal bowel sounds, non tender, soft Extremities: normal range of motion, non-tender Jeane Mosley NP May 04, 2019 10:31
[2019-05-04 12:00] VITALS: BP 121/79
--- NOTE | 2019-05-04 13:08 | Pulmonology Progress Note ---
Assessment/Plan Problems: (1) Nosocomial pneumonia (2) Respiratory failure with hypoxia (3) COPD exacerbation (4) Pacemaker (5) Diabetes mellitus (6) Prostate cancer Assessment/Plan on nasal cannula now on and off bipap sputum showing dale still short of breath, loud rhonchi sliding scale pt doesn't want diabetic diet Subjective ROS Limited/Unobtainable: No Interval Events: still short of breath Constitutional: Reports: no symptoms HEENT: Repors: no symptoms Allergies: Coded Allergies: No Known Allergies (Unverified , 10/24/16) Objective Last 24 Hour Vital Signs Date Time Temp Pulse Resp B/P (MAP) Pulse Ox O2 Delivery O2 Flow Rate FiO2 05/04/19 12:00 98.2 86 20 121/79 (93) 94 05/04/19 09:54 95 Nasal Cannula 3.0 32 05/04/19 09:44 85 20 95 Nasal Cannula 3.0 32 80 21 93 05/04/19 09:34 Nasal Cannula 2.0 05/04/19 08:45 85 103/75 05/04/19 08:38 97.6 05/04/19 08:00 97.1 85 20 107/76 (86) 97 05/04/19 04:00 97.6 73 20 110/68 (82) 100 05/04/19 02:36 84 20 96 Nasal Cannula 3.0 32 82 22 93 05/04/19 00:00 98.1 83 20 126/71 (89) 94 05/03/19 21:30 88 121/79 05/03/19 21:00 Nasal Cannula 2.0 05/03/19 20:32 79 18 95 Nasal Cannula 3.0 32 77 22 92 05/03/19 20:00 97.2 88 18 121/79 (93) 94 05/03/19 19:32 94 Nasal Cannula 3.0 32 05/03/19 16:30 88 20 93 05/03/19 15:59 98.0 70 18 127/91 (103) 93 05/03/19 15:11 79 15 94 30 05/03/19 13:25 72 16 95 30 Intake and Output 05/03/19 05/04/19 19:00 07:00 Intake Total 700 ml 600 ml Output Total 650 ml 750 ml Balance 50 ml -150 ml Intake Oral 700 ml 600 ml Output Urine Total 650 ml 750 ml # Bowel Movements 3 General Appearance: WD/WN HEENT: normocephalic Respiratory/Chest: chest wall non-tender, crackles/rales Cardiovascular: normal peripheral pulses, normal rate Abdomen: normal bowel sounds, soft, non tender Genitourinary: normal external genitalia Extremities: no clubbing Skin: no lesions Neurologic/Psychiatric: shop hand II-XII grossly normal Microbiology Date/Time Source Procedure Growth Status 05/01/19 17:00 Sputum Gram Stain - Final Complete 05/01/19 17:00 Sputum Culture - Final Dale Albicans Usual Upper Respiratory Astrid Complete 05/02/19 16:10 Urine,Clean Catch Urine Culture - Preliminary YEAST Resulted Laboratory Tests 05/04/19 05:15: White Blood Count 12.1H, Red Blood Count 4.12L, Hemoglobin 12.1L, Hematocrit 37.4L, Mean Corpuscular Volume 91, Mean Corpuscular Hemoglobin 29.3, Mean Corpuscular Hemoglobin Concent 32.3, Red Cell Distribution Width 16.0H, Platelet Count 347, Mean Platelet Volume 5.7L, Neutrophils (%) (Auto) 66.4, Lymphocytes (%) (Auto) 22.9, Monocytes (%) (Auto) 7.1, Eosinophils (%) (Auto) 0.6, Basophils (%) (Auto) 3.0H, Sodium Level 145, Potassium Level 4.4, Chloride Level 104, Carbon Dioxide Level 36H, Anion Gap 5, Blood Urea Nitrogen 27H, Creatinine 1.1, Estimat Glomerular Filtration Rate > 60, Glucose Level 125H, Calcium Level 9.2 Current Medications Medications (Trade) Dose Ordered Sig/Dejon Route PRN Reason Start Time Stop Time Status Last Admin Dose Admin Acetaminophen (Tylenol) 650 mg Q4H PRN ORAL fever 05/01/19 19:14 05/31/19 19:13 05/02/19 01:18 Acetaminophen/ Hydrocodone Bitart ([place] 5/325) 1 tab Q6H PRN ORAL Severe Pain (Pain Scale 7-10) 05/01/19 19:16 05/08/19 19:15 05/04/19 08:08 Albuterol/ Ipratropium (Albuterol/ Ipratropium) 3 ml Q4H PRN HHN Shortness of Breath 05/01/19 19:16 05/06/19 19:15 05/04/19 09:43 Apixaban (Eliquis) 5 mg BID ORAL 05/02/19 09:00 05/09/19 08:59 05/04/19 08:46 Carvedilol (Coreg) 6.25 mg EVERY 12 HOURS ORAL 05/01/19 21:00 05/09/19 08:59 05/04/19 08:45 Clonidine HCl (Catapres Tab) 0.1 mg Q4H PRN ORAL sbp more than 160 05/01/19 19:14 05/31/19 19:13 Clotrimazole (Lotrimin) 1 applic THREE TIMES A DAY TOPIC 05/02/19 09:00 05/20/19 12:59 05/04/19 12:44 Dextrose (Dextrose 50%) 25 ml Q30M PRN IV Hypoglycemia 05/01/19 19:30 05/09/19 15:29 Dextrose (Dextrose 50%) 50 ml Q30M PRN IV Hypoglycemia 05/01/19 19:30 05/09/19 07:29 Docusate Sodium (Colace) 100 mg TWICE A DAY ORAL 05/02/19 09:00 05/31/19 08:59 05/04/19 08:46 Ertapenem 1 gm/ Sodium Chloride 55 ml @ 110 mls/hr Q24H IVPB 05/02/19 15:00 05/07/19 14:59 05/03/19 15:00 Escitalopram Oxalate (Lexapro) 10 mg DAILY ORAL 05/02/19 09:00 05/27/19 08:59 05/04/19 08:45 Insulin Aspart (NovoLOG) BEFORE MEALS AND HS SUBQ 05/01/19 21:00 05/09/19 13:29 05/04/19 12:29 Insulin Aspart (NovoLOG) 14 units NOVOTIAC SUBQ 05/02/19 16:50 05/10/19 07:29 05/04/19 12:28 Insulin Detemir (Levemir) 24 units QHS SUBQ 05/02/19 21:00 05/09/19 20:59 05/03/19 22:00 Iron Sucrose 100 mg/Sodium Chloride 60 ml @ 240 mls/hr BEDTIME IV 05/01/19 21:00 05/04/19 21:14 05/03/19 21:17 Levothyroxine Sodium (Synthroid) 75 mcg ACBREAKFAST ORAL 05/02/19 06:30 05/27/19 06:29 05/04/19 05:55 Levothyroxine Sodium (Synthroid) 100 mcg ACBREAKFAST ORAL 05/02/19 06:30 05/09/19 06:29 05/04/19 05:55 Methylprednisolone Sodium Succinate (Solu-MEDROL) 30 mg DAILY IVP 05/04/19 09:00 05/30/19 08:59 05/04/19 08:46 Nitroglycerin (Ntg) 0.4 mg Q5M X 3 DOSES PRN SL Prn Chest Pain 05/01/19 19:00 05/08/19 21:29 Ondansetron HCl (Zofran) 4 mg Q6H PRN IVP Nausea & Vomiting 05/01/19 19:16 05/31/19 19:15 Oxymetazoline HCl (Afrin Nasal [place]) 1 spray Q6H PRN NASAL nasal congestion 05/01/19 19:16 05/31/19 19:15 Polyethylene Glycol (Miralax) 17 gm BEDTIME ORAL 05/01/19 21:00 05/31/19 20:59 05/01/19 20:37 Promethazine HCl/ Codeine (Phenergan with Codeine) 5 ml Q6H PRN ORAL cough 05/01/19 19:17 05/31/19 19:16 05/02/19 23:40 Tamsulosin HCl (Flomax) 0.4 mg BEDTIME ORAL 05/01/19 21:00 05/09/19 20:59 05/03/19 21:17 Goldie Obrien MD May 04, 2019 13:08
[2019-05-04] MEDS: Ertapenem 1 GM in NS 55 ML IVPB SCH (14:46)
[2019-05-04 16:00] VITALS: BP 121/77
--- NOTE | 2019-05-04 16:17 | Infectious Diseases Prog Note ---
Assessment/Plan Assessment/Plan Assessment: Acute hypoxic respiratory failure , back on bipap COPD exacerbation CHF exacerbation PNA -04/29 CXRLThere is bilateral interstitial congestion again demonstrated, appearing unchanged. No focal airspace consolidation. There is some atelectasis at the left lung base. -04/27 CXR: Borderline cardiomegaly. Questionable mild interstitial congestion , new or increased from previous study if real. -04/21 CTA chest:Somewhat limited exam, due to motion artifact. No definite evidence of pulmonary embolus or other acute thoracic vascular pathology. Borderline cardiomegaly. Diffuse bilateral pulmonary parenchymal groundglass opacity. Interspersed small bullae digestive this is due to COPD changes, but could also indicate a component of pulmonary edema. Considerable consolidation in the right lower lobe, likely pneumonia. Less extensive consolidation and atelectasis is seen at the left lung base. Pacemaker, degenerative spondylosis incidentally noted sp cx normal resp michael -04/19 CXR: Mild pulmonary vascular congestion -04/16 CXR: No acute disease -04/13 CXR: Suspected mild pulmonary vascular congestion. Correlate clinically -04/08 CXR: Mild pulmonary vascular congestion suspected Afebrile Leukocytosis,(pn steroids) KAYLAN, improving Hyperglycemia COPD CAD CHF prostate cancer s/p PPM former smoker Plan: -ON IV Ertapenem # 6/7 per pulm - 05/03 sp Vancomycin # 5 -04/28 SP Zosyn #8 -04/15 SP Levaquin #7 -04/08 SP Ceftriaxone x1, Azithromycin x1 -Monitor CBC/CMP, temperatures -aspiration precautions -sp cx Thank you for this consultation. Will continue to follow along with you. Subjective Allergies: Coded Allergies: No Known Allergies (Unverified , 10/24/16) Subjective afebrile no CBC today comfortable Objective Vital Signs Last 24 Hour Vital Signs Date Time Temp Pulse Resp B/P (MAP) Pulse Ox O2 Delivery O2 Flow Rate FiO2 05/04/19 16:00 97.8 75 19 121/77 (92) 97 05/04/19 12:00 98.2 86 20 121/79 (93) 94 05/04/19 09:54 95 Nasal Cannula 3.0 32 05/04/19 09:44 85 20 95 Nasal Cannula 3.0 32 80 21 93 05/04/19 09:34 Nasal Cannula 2.0 05/04/19 08:45 85 103/75 05/04/19 08:38 97.6 05/04/19 08:00 97.1 85 20 107/76 (86) 97 05/04/19 04:00 97.6 73 20 110/68 (82) 100 05/04/19 02:36 84 20 96 Nasal Cannula 3.0 32 82 22 93 05/04/19 00:00 98.1 83 20 126/71 (89) 94 05/03/19 21:30 88 121/79 05/03/19 21:00 Nasal Cannula 2.0 05/03/19 20:32 79 18 95 Nasal Cannula 3.0 32 77 22 92 05/03/19 20:00 97.2 88 18 121/79 (93) 94 05/03/19 19:32 94 Nasal Cannula 3.0 32 05/03/19 16:30 88 20 93 Height (Feet): 6 Height (Inches): 0.00 Weight (Pounds): 193 Respiratory/Chest: normal breath sounds Cardiovascular: regular rhythm Abdomen: no organomegaly Microbiology Date/Time Source Procedure Growth Status 05/01/19 17:00 Sputum Gram Stain - Final Complete 05/01/19 17:00 Sputum Culture - Final Randi Albicans Usual Upper Respiratory Michael Complete 05/02/19 16:10 Urine,Clean Catch Urine Culture - Preliminary YEAST Resulted Laboratory Tests Test 05/04/19 05:15 White Blood Count 12.1 K/UL (4.8-10.8) H Red Blood Count 4.12 M/UL (4.70-6.10) L Hemoglobin 12.1 G/DL (14.2-18.0) L Hematocrit 37.4 % (42.0-52.0) L Mean Corpuscular Volume 91 FL (80-99) Mean Corpuscular Hemoglobin 29.3 PG (27.0-31.0) Mean Corpuscular Hemoglobin Concent 32.3 G/DL (32.0-36.0) Red Cell Distribution Width 16.0 % (11.6-14.8) H Platelet Count 347 K/UL (150-450) Mean Platelet Volume 5.7 FL (6.5-10.1) L Neutrophils (%) (Auto) 66.4 % (45.0-75.0) Lymphocytes (%) (Auto) 22.9 % (20.0-45.0) Monocytes (%) (Auto) 7.1 % (1.0-10.0) Eosinophils (%) (Auto) 0.6 % (0.0-3.0) Basophils (%) (Auto) 3.0 % (0.0-2.0) H Sodium Level 145 MMOL/L (136-145) Potassium Level 4.4 MMOL/L (3.5-5.1) Chloride Level 104 MMOL/L (98-107) Carbon Dioxide Level 36 MMOL/L (21-32) H Anion Gap 5 mmol/L (5-15) Blood Urea Nitrogen 27 mg/dL (7-18) H Creatinine 1.1 MG/DL (0.55-1.30) Estimat Glomerular Filtration Rate > 60 mL/min (>60) Glucose Level 125 MG/DL (74-106) H Calcium Level 9.2 MG/DL (8.5-10.1) HIV (1&2) Antibody Rapid Negative (NEGATIVE) Current Medications Medications (Trade) Dose Ordered Sig/Dejon Route PRN Reason Start Time Stop Time Status Last Admin Dose Admin Acetaminophen (Tylenol) 650 mg Q4H PRN ORAL fever 05/01/19 19:14 05/31/19 19:13 05/02/19 01:18 Acetaminophen/ Hydrocodone Bitart ([place] 5/325) 1 tab Q6H PRN ORAL Severe Pain (Pain Scale 7-10) 05/01/19 19:16 05/08/19 19:15 05/04/19 08:08 Albuterol/ Ipratropium (Albuterol/ Ipratropium) 3 ml Q4H PRN HHN Shortness of Breath 05/01/19 19:16 05/06/19 19:15 05/04/19 09:43 Apixaban (Eliquis) 5 mg BID ORAL 05/02/19 09:00 05/09/19 08:59 05/04/19 08:46 Carvedilol (Coreg) 6.25 mg EVERY 12 HOURS ORAL 05/01/19 21:00 05/09/19 08:59 05/04/19 08:45 Clonidine HCl (Catapres Tab) 0.1 mg Q4H PRN ORAL sbp more than 160 05/01/19 19:14 05/31/19 19:13 Clotrimazole (Lotrimin) 1 applic THREE TIMES A DAY TOPIC 05/02/19 09:00 05/20/19 12:59 05/04/19 12:44 Dextrose (Dextrose 50%) 25 ml Q30M PRN IV Hypoglycemia 05/01/19 19:30 05/09/19 15:29 Dextrose (Dextrose 50%) 50 ml Q30M PRN IV Hypoglycemia 05/01/19 19:30 05/09/19 07:29 Docusate Sodium (Colace) 100 mg TWICE A DAY ORAL 05/02/19 09:00 05/31/19 08:59 05/04/19 08:46 Ertapenem 1 gm/ Sodium Chloride 55 ml @ 110 mls/hr Q24H IVPB 05/02/19 15:00 05/07/19 14:59 05/04/19 14:46 Escitalopram Oxalate (Lexapro) 10 mg DAILY ORAL 05/02/19 09:00 05/27/19 08:59 05/04/19 08:45 Insulin Aspart (NovoLOG) BEFORE MEALS AND HS SUBQ 05/01/19 21:00 05/09/19 13:29 05/04/19 12:29 Insulin Aspart (NovoLOG) 14 units NOVOTIAC SUBQ 05/02/19 16:50 05/10/19 07:29 05/04/19 12:28 Insulin Detemir (Levemir) 24 units QHS SUBQ 05/02/19 21:00 05/09/19 20:59 05/03/19 22:00 Iron Sucrose 100 mg/Sodium Chloride 60 ml @ 240 mls/hr BEDTIME IV 05/01/19 21:00 05/04/19 21:14 05/03/19 21:17 Levothyroxine Sodium (Synthroid) 75 mcg ACBREAKFAST ORAL 05/02/19 06:30 05/27/19 06:29 05/04/19 05:55 Levothyroxine Sodium (Synthroid) 100 mcg ACBREAKFAST ORAL 05/02/19 06:30 05/09/19 06:29 05/04/19 05:55 Methylprednisolone Sodium Succinate (Solu-MEDROL) 30 mg DAILY IVP 05/04/19 09:00 05/30/19 08:59 05/04/19 08:46 Nitroglycerin (Ntg) 0.4 mg Q5M X 3 DOSES PRN SL Prn Chest Pain 05/01/19 19:00 05/08/19 21:29 Ondansetron HCl (Zofran) 4 mg Q6H PRN IVP Nausea & Vomiting 05/01/19 19:16 05/31/19 19:15 Oxymetazoline HCl (Afrin Nasal [place]) 1 spray Q6H PRN NASAL nasal congestion 05/01/19 19:16 05/31/19 19:15 Polyethylene Glycol (Miralax) 17 gm BEDTIME ORAL 05/01/19 21:00 05/31/19 20:59 05/01/19 20:37 Promethazine HCl/ Codeine (Phenergan with Codeine) 5 ml Q6H PRN ORAL cough 05/01/19 19:17 05/31/19 19:16 05/02/19 23:40 Tamsulosin HCl (Flomax) 0.4 mg BEDTIME ORAL 05/01/19 21:00 05/09/19 20:59 05/03/19 21:17 Robert Canela MD May 04, 2019 16:17
--- NOTE | 2019-05-04 17:54 | Internal Med Progress Note ---
Subjective Date of Service: May 04, 2019 Physician Name Idris Lugo Attending Physician Jewel Giraldo MD Current Medications Medications (Trade) Dose Ordered Sig/Dejon Route PRN Reason Start Time Stop Time Status Last Admin Dose Admin Acetaminophen (Tylenol) 650 mg Q4H PRN ORAL fever 05/01/19 19:14 05/31/19 19:13 05/02/19 01:18 Acetaminophen/ Hydrocodone Bitart ([place] 5/325) 1 tab Q6H PRN ORAL Severe Pain (Pain Scale 7-10) 05/01/19 19:16 05/08/19 19:15 05/04/19 17:30 Albuterol/ Ipratropium (Albuterol/ Ipratropium) 3 ml Q4H PRN HHN Shortness of Breath 05/01/19 19:16 05/06/19 19:15 05/04/19 09:43 Apixaban (Eliquis) 5 mg BID ORAL 05/02/19 09:00 05/09/19 08:59 05/04/19 17:26 Carvedilol (Coreg) 6.25 mg EVERY 12 HOURS ORAL 05/01/19 21:00 05/09/19 08:59 05/04/19 08:45 Clonidine HCl (Catapres Tab) 0.1 mg Q4H PRN ORAL sbp more than 160 05/01/19 19:14 05/31/19 19:13 Clotrimazole (Lotrimin) 1 applic THREE TIMES A DAY TOPIC 05/02/19 09:00 05/20/19 12:59 05/04/19 17:27 Dextrose (Dextrose 50%) 25 ml Q30M PRN IV Hypoglycemia 05/01/19 19:30 05/09/19 15:29 Dextrose (Dextrose 50%) 50 ml Q30M PRN IV Hypoglycemia 05/01/19 19:30 05/09/19 07:29 Docusate Sodium (Colace) 100 mg TWICE A DAY ORAL 05/02/19 09:00 05/31/19 08:59 05/04/19 17:26 Ertapenem 1 gm/ Sodium Chloride 55 ml @ 110 mls/hr Q24H IVPB 05/02/19 15:00 05/07/19 14:59 05/04/19 14:46 Escitalopram Oxalate (Lexapro) 10 mg DAILY ORAL 05/02/19 09:00 05/27/19 08:59 05/04/19 08:45 Insulin Aspart (NovoLOG) BEFORE MEALS AND HS SUBQ 05/01/19 21:00 05/09/19 13:29 05/04/19 17:18 Insulin Aspart (NovoLOG) 14 units NOVOTIAC SUBQ 05/02/19 16:50 05/10/19 07:29 05/04/19 17:18 Insulin Detemir (Levemir) 24 units QHS SUBQ 05/02/19 21:00 05/09/19 20:59 05/03/19 22:00 Iron Sucrose 100 mg/Sodium Chloride 60 ml @ 240 mls/hr BEDTIME IV 05/01/19 21:00 05/04/19 21:14 05/03/19 21:17 Levothyroxine Sodium (Synthroid) 75 mcg ACBREAKFAST ORAL 05/02/19 06:30 05/27/19 06:29 05/04/19 05:55 Levothyroxine Sodium (Synthroid) 100 mcg ACBREAKFAST ORAL 05/02/19 06:30 05/09/19 06:29 05/04/19 05:55 Methylprednisolone Sodium Succinate (Solu-MEDROL) 30 mg DAILY IVP 05/04/19 09:00 05/30/19 08:59 05/04/19 08:46 Nitroglycerin (Ntg) 0.4 mg Q5M X 3 DOSES PRN SL Prn Chest Pain 05/01/19 19:00 05/08/19 21:29 Ondansetron HCl (Zofran) 4 mg Q6H PRN IVP Nausea & Vomiting 05/01/19 19:16 05/31/19 19:15 Oxymetazoline HCl (Afrin Nasal [place]) 1 spray Q6H PRN NASAL nasal congestion 05/01/19 19:16 05/31/19 19:15 Polyethylene Glycol (Miralax) 17 gm BEDTIME ORAL 05/01/19 21:00 05/31/19 20:59 05/01/19 20:37 Promethazine HCl/ Codeine (Phenergan with Codeine) 5 ml Q6H PRN ORAL cough 05/01/19 19:17 05/31/19 19:16 05/02/19 23:40 Tamsulosin HCl (Flomax) 0.4 mg BEDTIME ORAL 05/01/19 21:00 05/09/19 20:59 05/03/19 21:17 Allergies: Coded Allergies: No Known Allergies (Unverified , 10/24/16) ROS Limited/Unobtainable: No Constitutional: Reports: no symptoms HEENT: Reports: no symptoms Cardiovascular: Reports: no symptoms Respiratory: Reports: no symptoms Gastrointestinal/Abdominal: Reports: no symptoms Genitourinary: Reports: no symptoms Neurologic/Psychiatric: Reports: no symptoms Subjective 73 YO M admitted with COPD exacerbation. Now respiratory failure and pneumonia. Cover for Int Bubba-DR Giraldo. Objective Last Vital Signs Date Time Temp Pulse Resp B/P (MAP) Pulse Ox O2 Delivery O2 Flow Rate FiO2 05/04/19 16:00 97.8 75 19 121/77 (92) 97 05/04/19 09:54 Nasal Cannula 3.0 32 Laboratory Tests Test 05/04/19 05:15 White Blood Count 12.1 K/UL (4.8-10.8) H Red Blood Count 4.12 M/UL (4.70-6.10) L Hemoglobin 12.1 G/DL (14.2-18.0) L Hematocrit 37.4 % (42.0-52.0) L Mean Corpuscular Volume 91 FL (80-99) Mean Corpuscular Hemoglobin 29.3 PG (27.0-31.0) Mean Corpuscular Hemoglobin Concent 32.3 G/DL (32.0-36.0) Red Cell Distribution Width 16.0 % (11.6-14.8) H Platelet Count 347 K/UL (150-450) Mean Platelet Volume 5.7 FL (6.5-10.1) L Neutrophils (%) (Auto) 66.4 % (45.0-75.0) Lymphocytes (%) (Auto) 22.9 % (20.0-45.0) Monocytes (%) (Auto) 7.1 % (1.0-10.0) Eosinophils (%) (Auto) 0.6 % (0.0-3.0) Basophils (%) (Auto) 3.0 % (0.0-2.0) H Sodium Level 145 MMOL/L (136-145) Potassium Level 4.4 MMOL/L (3.5-5.1) Chloride Level 104 MMOL/L (98-107) Carbon Dioxide Level 36 MMOL/L (21-32) H Anion Gap 5 mmol/L (5-15) Blood Urea Nitrogen 27 mg/dL (7-18) H Creatinine 1.1 MG/DL (0.55-1.30) Estimat Glomerular Filtration Rate > 60 mL/min (>60) Glucose Level 125 MG/DL (74-106) H Calcium Level 9.2 MG/DL (8.5-10.1) HIV (1&2) Antibody Rapid Negative (NEGATIVE) Microbiology Date/Time Source Procedure Growth Status 05/02/19 16:10 Urine,Clean Catch Urine Culture - Preliminary YEAST Resulted Intake and Output 05/03/19 05/04/19 19:00 07:00 Intake Total 700 ml 600 ml Output Total 650 ml 750 ml Balance 50 ml -150 ml Intake Oral 700 ml 600 ml Output Urine Total 650 ml 750 ml # Bowel Movements 3 Objective PHYSICAL EXAMINATION: GENERAL: The patient is awake, responsive, no acute distress. HEAD AND NECK: Pupils are equal and reactive to light. Extraocular muscles intact. Neck was supple. No JVD. LUNGS: BIPAP;The patient has expiratory wheezes noted. Tachypneic. No rhonchi was noted. HEART: S1, S2. Irregular. No murmur. The patient has a pacemaker in the left-sided chest wall. ABDOMEN: Soft, nondistended, nontender. Mildly obese. EXTREMITIES: No cyanosis, clubbing, edema. NEUROLOGIC: Cranial nerves II through XII grossly normal. Motor is 5/5 in all extremities. Gait is intact. GENITOURINARY: It was noted the patient has a [place] catheter. RECTAL: Refused and deferred. PSYCHIATRIC: Mood and affect is intact. Assessment/Plan Assessment/Plan ASSESSMENT: 1. Acute hypoxemic respiratory failure, most likely secondary to acute COPD exacerbation. 2. Acute COPD exacerbation. 3. Pneumonia. 4. Sick sinus syndrome status post pacemaker. 5. Diabetes type 2. 6. Prostate cancer. 7. Hyperkalemia. 8. Insulin induced hyperglycemia. 9. Prostate enlargement. 10. Leukocytosis 11. RBBB PLAN: 1. Med/Surg 2. D/C Solu-Medrol IV Per Pulmonary consult=Dr. Obrien. 3. Endocrinology=Dr To. Monitor blood glucose level closely. 4. antibiotic=S/P ertapenem and vanco. ID=Dr Villa 5. Code status is Full Code. DVT prophylaxis, he is on Eliquis. Idris Lugo MD May 04, 2019 17:54
[2019-05-04 20:00] VITALS: BP 148/87
[2019-05-04] MEDS: Tamsulosin 0.4mg cap ORAL SCH (20:59)
[2019-05-04] MEDS: Levemir Flexpen SUBQ SCH (21:00)
[2019-05-04] MEDS: Miralax 17gm pkt ORAL SCH (21:00)
[2019-05-04] MEDS: Promethazine/Codeine 5ml UD ORAL PRN (21:01)
[2019-05-04] MEDS: Iron Sucrose 100 MG in NS 55 ML IV SCH (21:30)
[2019-05-05] VITALS: BP 123/74
--- NOTE | 2019-05-05 04:15 | Progress Note ---
DATE: 05/04/2019 SUBJECTIVE: The patient is not leaving the hospital. He is irritable and angry. Demanding towards staff. Poor insight. Not able to be engaged. MENTAL STATUS EXAMINATION: The patient is alert, oriented times self, place, situation. Mood is irritable. Affect is constricted, congruent with mood. Thought process is concrete. Thought content, no suicidal or homicidal ideation. Cognition is impaired. Insight and judgment is impaired. ASSESSMENT: Stable. PLAN: 1. We will continue current medications. 2. Provide the patient with reality orientation and supportive therapy. Ottoniel Hillman M.D. DR: AMAURY JOB#: [id number] CC: JACKELIN
[2019-05-05] MEDS: NovoLOG Insulin Flexpen SUBQ SCH ×7 (06:29→21:00)
--- NOTE | 2019-05-05 06:38 | General Progress Note ---
Assessment/Plan Problem List: (1) COPD exacerbation ICD Codes: J44.1 - Chronic obstructive pulmonary disease with (acute) exacerbation SNOMED: 030157326 (2) Respiratory failure with hypoxia ICD Codes: J96.91 - Respiratory failure, unspecified with hypoxia SNOMED: 45800032168511753 (3) Diabetes mellitus ICD Codes: E11.9 - Type 2 diabetes mellitus without complications SNOMED: 30402012 (4) Pacemaker ICD Codes: Z95.0 - Presence of cardiac pacemaker SNOMED: 901655984 (5) Prostate cancer ICD Codes: C61 - Malignant neoplasm of prostate SNOMED: 594534542 (6) Hypothyroid ICD Codes: E03.9 - Hypothyroidism, unspecified SNOMED: 90239929 Status: stable Assessment/Plan: change Levemir 24 units qhs to qam continue Novolog 14 units ac tid continue NISS ac / hs continue Levothyroxine 175 mcg qam repeat thyroid function in 3 weeks Subjective Allergies: Coded Allergies: No Known Allergies (Unverified , 10/24/16) Subjective events noted Levemir 24 units was held last night for a glucose of 94 mg/dL Item Value Date Time Bedside Blood Glucose 191 mg/dl H 05/05/19 0630 Bedside Blood Glucose 94 mg/dl 05/04/19 2100 Bedside Blood Glucose 200 mg/dl H 05/04/19 1718 Bedside Blood Glucose 316 mg/dl H 05/04/19 1229 Bedside Blood Glucose 126 mg/dl H 05/04/19 0626 Objective Last 24 Hour Vital Signs Date Time Temp Pulse Resp B/P (MAP) Pulse Ox O2 Delivery O2 Flow Rate FiO2 05/05/19 00:00 98.5 76 15 123/74 (90) 92 05/04/19 21:01 95 148/87 05/04/19 21:00 Nasal Cannula 2.0 05/04/19 20:00 97.8 95 19 148/87 (107) 95 05/04/19 19:13 94 Nasal Cannula 3.0 32 05/04/19 18:00 97.8 05/04/19 16:00 97.8 75 19 121/77 (92) 97 05/04/19 12:00 98.2 86 20 121/79 (93) 94 05/04/19 09:54 95 Nasal Cannula 3.0 32 05/04/19 09:44 85 20 95 Nasal Cannula 3.0 32 80 21 93 05/04/19 09:34 Nasal Cannula 2.0 05/04/19 08:45 85 103/75 05/04/19 08:00 97.1 85 20 107/76 (86) 97 Intake and Output 05/04/19 05/05/19 19:00 07:00 Intake Total 775 ml 480 ml Output Total 800 ml 1000 ml Balance -25 ml -520 ml Intake Oral 720 ml 480 ml IV Total 55 ml Output Urine Total 800 ml 1000 ml # Voids 1 # Bowel Movements 1 Laboratory Tests 05/05/19 05:05: White Blood Count [Pending], Red Blood Count [Pending], Hemoglobin [Pending], Hematocrit [Pending], Mean Corpuscular Volume [Pending], Mean Corpuscular Hemoglobin [Pending], Mean Corpuscular Hemoglobin Concent [Pending], Red Cell Distribution Width [Pending], Platelet Count [Pending], Mean Platelet Volume [ Pending], Neutrophils (%) (Auto) [Pending], Lymphocytes (%) (Auto) [Pending], Monocytes (%) (Auto) [Pending], Eosinophils (%) (Auto) [Pending], Basophils (%) (Auto) [Pending], Sodium Level [Pending], Potassium Level [Pending], Chloride Level [Pending], Carbon Dioxide Level [Pending], Blood Urea Nitrogen [Pending], Creatinine [Pending], Estimat Glomerular Filtration Rate [Pending], Glucose Level [Pending], Calcium Level [Pending] Height (Feet): 6 Height (Inches): 0.00 Weight (Pounds): 193 General Appearance: no apparent distress Neck: normal alignment Cardiovascular: normal rate Respiratory/Chest: decreased breath sounds Abdomen: normal bowel sounds Pelvis: normal external exam Objective Current Medications Medications (Trade) Dose Ordered Sig/Dejon Route PRN Reason Start Time Stop Time Status Last Admin Dose Admin Acetaminophen (Tylenol) 650 mg Q4H PRN ORAL fever 05/01/19 19:14 05/31/19 19:13 05/02/19 01:18 Acetaminophen/ Hydrocodone Bitart ([place] 5/325) 1 tab Q6H PRN ORAL Severe Pain (Pain Scale 7-10) 05/01/19 19:16 05/08/19 19:15 05/04/19 17:30 Albuterol/ Ipratropium (Albuterol/ Ipratropium) 3 ml Q4H PRN HHN Shortness of Breath 05/01/19 19:16 05/06/19 19:15 05/04/19 09:43 Apixaban (Eliquis) 5 mg BID ORAL 05/02/19 09:00 05/09/19 08:59 05/04/19 17:26 Carvedilol (Coreg) 6.25 mg EVERY 12 HOURS ORAL 05/01/19 21:00 05/09/19 08:59 05/04/19 21:01 Clonidine HCl (Catapres Tab) 0.1 mg Q4H PRN ORAL sbp more than 160 05/01/19 19:14 05/31/19 19:13 Clotrimazole (Lotrimin) 1 applic THREE TIMES A DAY TOPIC 05/02/19 09:00 05/20/19 12:59 05/04/19 17:27 Dextrose (Dextrose 50%) 25 ml Q30M PRN IV Hypoglycemia 05/01/19 19:30 05/09/19 15:29 Dextrose (Dextrose 50%) 50 ml Q30M PRN IV Hypoglycemia 05/01/19 19:30 05/09/19 07:29 Docusate Sodium (Colace) 100 mg TWICE A DAY ORAL 05/02/19 09:00 05/31/19 08:59 05/04/19 17:26 Ertapenem 1 gm/ Sodium Chloride 55 ml @ 110 mls/hr Q24H IVPB 05/02/19 15:00 05/07/19 14:59 05/04/19 14:46 Escitalopram Oxalate (Lexapro) 10 mg DAILY ORAL 05/02/19 09:00 05/27/19 08:59 05/04/19 08:45 Insulin Aspart (NovoLOG) BEFORE MEALS AND HS SUBQ 05/01/19 21:00 05/09/19 13:29 05/05/19 06:29 Insulin Aspart (NovoLOG) 14 units NOVOTIAC SUBQ 05/02/19 16:50 05/10/19 07:29 05/05/19 06:30 Insulin Detemir (Levemir) 24 units QHS SUBQ 05/02/19 21:00 05/09/19 20:59 05/03/19 22:00 Levothyroxine Sodium (Synthroid) 75 mcg ACBREAKFAST ORAL 05/02/19 06:30 05/27/19 06:29 05/05/19 06:28 Levothyroxine Sodium (Synthroid) 100 mcg ACBREAKFAST ORAL 05/02/19 06:30 05/09/19 06:29 05/05/19 06:28 Methylprednisolone Sodium Succinate (Solu-MEDROL) 30 mg DAILY IVP 05/04/19 09:00 05/30/19 08:59 05/04/19 08:46 Nitroglycerin (Ntg) 0.4 mg Q5M X 3 DOSES PRN SL Prn Chest Pain 05/01/19 19:00 05/08/19 21:29 Ondansetron HCl (Zofran) 4 mg Q6H PRN IVP Nausea & Vomiting 05/01/19 19:16 05/31/19 19:15 Oxymetazoline HCl (Afrin Nasal [place]) 1 spray Q6H PRN NASAL nasal congestion 05/01/19 19:16 05/31/19 19:15 Polyethylene Glycol (Miralax) 17 gm BEDTIME ORAL 05/01/19 21:00 05/31/19 20:59 05/01/19 20:37 Promethazine HCl/ Codeine (Phenergan with Codeine) 5 ml Q6H PRN ORAL cough 05/01/19 19:17 05/31/19 19:16 05/04/19 21:01 Tamsulosin HCl (Flomax) 0.4 mg BEDTIME ORAL 05/01/19 21:00 05/09/19 20:59 05/04/19 20:59 Geovanni To MD May 05, 2019 06:38
[2019-05-05 07:00] LABS: ANION GAP 5 mmol/L (5-15); BLOOD UREA NITROGEN 25 mg/dL (7-18); CARBON DIOXIDE 35 MMOL/L (21-32); CHLORIDE 105 MMOL/L (98-107); POTASSIUM 4.2 MMOL/L (3.5-5.1); SODIUM 145 MMOL/L (136-145)
[2019-05-05 07:08] LABS: BASOPHILS % (AUTO) 1.9 % (0.0-2.0); EOSINOPHILS % (AUTO) 1.4 % (0.0-3.0); HEMATOCRIT 37.5 % (42.0-52.0); HEMOGLOBIN 11.9 G/DL (14.2-18.0); LYMPHOCYTES % (AUTO) 23.4 % (20.0-45.0); MEAN CORPUSCULAR VOLUME 92 FL (80-99); MONOCYTES % (AUTO) 7.6 % (1.0-10.0); NEUTROPHILS % (AUTO) 65.8 % (45.0-75.0); PLATELET COUNT 365 K/UL (150-450); RED BLOOD COUNT 4.08 M/UL (4.70-6.10); RED CELL DISTRIBUTION WIDTH 15.7 % (11.6-14.8)
[2019-05-05 08:00] VITALS: BP 132/74
[2019-05-05] MEDS: Carvedilol 6.25mg Tab ORAL SCH ×2 (09:39→21:27)
[2019-05-05] MEDS: Eliquis 5mg tablet ORAL SCH ×2 (09:39→17:26)
[2019-05-05] MEDS: Solu-MEDROL 40mg Inj IVP SCH (09:39)
[2019-05-05] MEDS: Docusate 100mg cap ORAL SCH ×2 (09:39→17:25)
[2019-05-05] MEDS: Levemir Flexpen SUBQ SCH (09:50)
[2019-05-05] MEDS: HYDROcodone/Acetamin 5/325 tab ORAL PRN ×2 (09:51→21:27)
--- NOTE | 2019-05-05 09:59 | GI Progress Note ---
Assessment/Plan Problems: (1) Diabetes mellitus ICD Codes: E11.9 - Type 2 diabetes mellitus without complications SNOMED: 32674835 (2) Anemia ICD Codes: D64.9 - Anemia, unspecified SNOMED: 708186202 Status: unchanged Status Narrative Discussed with Dr. La. Assessment/Plan This is a 73-year-old male with COPD exacerbation and new-onset diabetes given hemoglobin A1c is high. Plan for EGD tomorrow to evaluate anemia given positive OB stool - NPO @ [place]. patient had recent colonoscopy last year with unknown findings anemia work up check ferritin >> WNL OB stool r/o GI bleed >> positive monitor H&H, prn transfusions bowel regimen ppi fu labs The patient was seen and examined at bedside and all new and available data was reviewed in the patients chart. I agree with the above findings, impression and plan. (Patient seen earlier today. Signature stamp does not reflect patient encounter time.). - Christiano La MD Subjective Subjective headache Objective Last 24 Hour Vital Signs Date Time Temp Pulse Resp B/P (MAP) Pulse Ox O2 Delivery O2 Flow Rate FiO2 05/05/19 09:39 82 132/74 05/05/19 00:00 98.5 76 15 123/74 (90) 92 05/04/19 21:01 95 148/87 05/04/19 21:00 Nasal Cannula 2.0 05/04/19 20:00 97.8 95 19 148/87 (107) 95 05/04/19 19:13 94 Nasal Cannula 3.0 32 05/04/19 18:00 97.8 05/04/19 16:00 97.8 75 19 121/77 (92) 97 05/04/19 12:00 98.2 86 20 121/79 (93) 94 Intake and Output 05/04/19 05/05/19 19:00 07:00 Intake Total 775 ml 480 ml Output Total 800 ml 1000 ml Balance -25 ml -520 ml Intake Oral 720 ml 480 ml IV Total 55 ml Output Urine Total 800 ml 1000 ml # Voids 1 # Bowel Movements 1 1 Laboratory Tests Test 05/05/19 05:05 White Blood Count 12.0 K/UL (4.8-10.8) H Red Blood Count 4.08 M/UL (4.70-6.10) L Hemoglobin 11.9 G/DL (14.2-18.0) L Hematocrit 37.5 % (42.0-52.0) L Mean Corpuscular Volume 92 FL (80-99) Mean Corpuscular Hemoglobin 29.3 PG (27.0-31.0) Mean Corpuscular Hemoglobin Concent 31.8 G/DL (32.0-36.0) L Red Cell Distribution Width 15.7 % (11.6-14.8) H Platelet Count 365 K/UL (150-450) Mean Platelet Volume 5.8 FL (6.5-10.1) L Neutrophils (%) (Auto) 65.8 % (45.0-75.0) Lymphocytes (%) (Auto) 23.4 % (20.0-45.0) Monocytes (%) (Auto) 7.6 % (1.0-10.0) Eosinophils (%) (Auto) 1.4 % (0.0-3.0) Basophils (%) (Auto) 1.9 % (0.0-2.0) Sodium Level 145 MMOL/L (136-145) Potassium Level 4.2 MMOL/L (3.5-5.1) Chloride Level 105 MMOL/L (98-107) Carbon Dioxide Level 35 MMOL/L (21-32) H Anion Gap 5 mmol/L (5-15) Blood Urea Nitrogen 25 mg/dL (7-18) H Creatinine 1.0 MG/DL (0.55-1.30) Estimat Glomerular Filtration Rate > 60 mL/min (>60) Glucose Level 115 MG/DL (74-106) H Calcium Level 9.0 MG/DL (8.5-10.1) Microbiology Date/Time Source Procedure Growth Status 05/04/19 12:30 Indwelling Cath Urine Culture - Preliminary Resulted Height (Feet): 6 Height (Inches): 0.00 Weight (Pounds): 212 General Appearance: WD/WN, no apparent distress, alert Cardiovascular: normal rate Respiratory/Chest: normal breath sounds, no respiratory distress Abdominal Exam: normal bowel sounds, non tender, soft Extremities: normal range of motion, non-tender Jeane Mosley NP May 05, 2019 09:59
--- NOTE | 2019-05-05 10:42 | Infectious Diseases Prog Note ---
Assessment/Plan Assessment/Plan Assessment: Acute hypoxic respiratory failure , back on bipap COPD exacerbation CHF exacerbation PNA -04/29 CXRLThere is bilateral interstitial congestion again demonstrated, appearing unchanged. No focal airspace consolidation. There is some atelectasis at the left lung base. -04/27 CXR: Borderline cardiomegaly. Questionable mild interstitial congestion , new or increased from previous study if real. -04/21 CTA chest:Somewhat limited exam, due to motion artifact. No definite evidence of pulmonary embolus or other acute thoracic vascular pathology. Borderline cardiomegaly. Diffuse bilateral pulmonary parenchymal groundglass opacity. Interspersed small bullae digestive this is due to COPD changes, but could also indicate a component of pulmonary edema. Considerable consolidation in the right lower lobe, likely pneumonia. Less extensive consolidation and atelectasis is seen at the left lung base. Pacemaker, degenerative spondylosis incidentally noted sp cx normal resp michael -04/19 CXR: Mild pulmonary vascular congestion -04/16 CXR: No acute disease -04/13 CXR: Suspected mild pulmonary vascular congestion. Correlate clinically -04/08 CXR: Mild pulmonary vascular congestion suspected Afebrile Leukocytosis,(pn steroids) KAYLAN, improving Hyperglycemia COPD CAD CHF prostate cancer s/p PPM former smoker Plan: - DC Ertapenem # 7/7 - 05/03 sp Vancomycin # 5 -04/28 SP Zosyn #8 -04/15 SP Levaquin #7 -04/08 SP Ceftriaxone x1, Azithromycin x1 -Monitor CBC/CMP, temperatures -aspiration precautions -sp cx Thank you for this consultation. Will continue to follow along with you. Subjective Allergies: Coded Allergies: No Known Allergies (Unverified , 10/24/16) Subjective afebrile no acute event BIPAP RPN Objective Vital Signs Last 24 Hour Vital Signs Date Time Temp Pulse Resp B/P (MAP) Pulse Ox O2 Delivery O2 Flow Rate FiO2 05/05/19 09:39 82 132/74 05/05/19 09:00 Nasal Cannula 2.0 05/05/19 08:00 97.1 82 20 132/74 (93) 94 05/05/19 07:00 95 Nasal Cannula 3.0 32 05/05/19 00:00 98.5 76 15 123/74 (90) 92 05/04/19 21:01 95 148/87 2/25/20 21:00 Nasal Cannula 2.0 05/04/19 20:00 97.8 95 19 148/87 (107) 95 05/04/19 19:13 94 Nasal Cannula 3.0 32 05/04/19 18:00 97.8 05/04/19 16:00 97.8 75 19 121/77 (92) 97 05/04/19 12:00 98.2 86 20 121/79 (93) 94 Height (Feet): 6 Height (Inches): 0.00 Weight (Pounds): 212 Respiratory/Chest: no respiratory distress Cardiovascular: regularly irregular Abdomen: non distended Microbiology Date/Time Source Procedure Growth Status 05/04/19 12:30 Indwelling Cath Urine Culture - Preliminary Resulted 05/02/19 16:10 Urine,Clean Catch Urine Culture - Final Randi Albicans Complete Laboratory Tests Test 05/05/19 05:05 White Blood Count 12.0 K/UL (4.8-10.8) H Red Blood Count 4.08 M/UL (4.70-6.10) L Hemoglobin 11.9 G/DL (14.2-18.0) L Hematocrit 37.5 % (42.0-52.0) L Mean Corpuscular Volume 92 FL (80-99) Mean Corpuscular Hemoglobin 29.3 PG (27.0-31.0) Mean Corpuscular Hemoglobin Concent 31.8 G/DL (32.0-36.0) L Red Cell Distribution Width 15.7 % (11.6-14.8) H Platelet Count 365 K/UL (150-450) Mean Platelet Volume 5.8 FL (6.5-10.1) L Neutrophils (%) (Auto) 65.8 % (45.0-75.0) Lymphocytes (%) (Auto) 23.4 % (20.0-45.0) Monocytes (%) (Auto) 7.6 % (1.0-10.0) Eosinophils (%) (Auto) 1.4 % (0.0-3.0) Basophils (%) (Auto) 1.9 % (0.0-2.0) Sodium Level 145 MMOL/L (136-145) Potassium Level 4.2 MMOL/L (3.5-5.1) Chloride Level 105 MMOL/L (98-107) Carbon Dioxide Level 35 MMOL/L (21-32) H Anion Gap 5 mmol/L (5-15) Blood Urea Nitrogen 25 mg/dL (7-18) H Creatinine 1.0 MG/DL (0.55-1.30) Estimat Glomerular Filtration Rate > 60 mL/min (>60) Glucose Level 115 MG/DL (74-106) H Calcium Level 9.0 MG/DL (8.5-10.1) Current Medications Medications (Trade) Dose Ordered Sig/Dejon Route PRN Reason Start Time Stop Time Status Last Admin Dose Admin Acetaminophen (Tylenol) 650 mg Q4H PRN ORAL fever 05/01/19 19:14 05/31/19 19:13 05/02/19 01:18 Acetaminophen/ Hydrocodone Bitart ([place] 5/325) 1 tab Q6H PRN ORAL Severe Pain (Pain Scale 7-10) 05/01/19 19:16 05/08/19 19:15 05/05/19 09:51 Albuterol/ Ipratropium (Albuterol/ Ipratropium) 3 ml Q4H PRN HHN Shortness of Breath 05/01/19 19:16 05/06/19 19:15 05/04/19 09:43 Apixaban (Eliquis) 5 mg BID ORAL 05/02/19 09:00 05/09/19 08:59 05/05/19 09:39 Carvedilol (Coreg) 6.25 mg EVERY 12 HOURS ORAL 05/01/19 21:00 05/09/19 08:59 05/05/19 09:39 Clonidine HCl (Catapres Tab) 0.1 mg Q4H PRN ORAL sbp more than 160 05/01/19 19:14 05/31/19 19:13 Clotrimazole (Lotrimin) 1 applic THREE TIMES A DAY TOPIC 05/02/19 09:00 05/20/19 12:59 05/05/19 09:00 Dextrose (Dextrose 50%) 25 ml Q30M PRN IV Hypoglycemia 05/01/19 19:30 05/09/19 15:29 Dextrose (Dextrose 50%) 50 ml Q30M PRN IV Hypoglycemia 05/01/19 19:30 05/09/19 07:29 Docusate Sodium (Colace) 100 mg TWICE A DAY ORAL 05/02/19 09:00 05/31/19 08:59 05/05/19 09:39 Ertapenem 1 gm/ Sodium Chloride 55 ml @ 110 mls/hr Q24H IVPB 05/02/19 15:00 05/07/19 14:59 05/04/19 14:46 Escitalopram Oxalate (Lexapro) 10 mg DAILY ORAL 05/02/19 09:00 05/27/19 08:59 05/05/19 09:39 Insulin Aspart (NovoLOG) BEFORE MEALS AND HS SUBQ 05/01/19 21:00 05/09/19 13:29 05/05/19 06:29 Insulin Aspart (NovoLOG) 14 units NOVOTIAC SUBQ 05/02/19 16:50 05/10/19 07:29 05/05/19 06:30 Insulin Detemir (Levemir) 24 units DAILY SUBQ 05/05/19 09:00 05/09/19 20:59 05/05/19 09:50 Levothyroxine Sodium (Synthroid) 75 mcg ACBREAKFAST ORAL 05/02/19 06:30 05/27/19 06:29 05/05/19 06:28 Levothyroxine Sodium (Synthroid) 100 mcg ACBREAKFAST ORAL 05/02/19 06:30 05/09/19 06:29 05/05/19 06:28 Methylprednisolone Sodium Succinate (Solu-MEDROL) 30 mg DAILY IVP 05/04/19 09:00 05/30/19 08:59 05/05/19 09:39 Nitroglycerin (Ntg) 0.4 mg Q5M X 3 DOSES PRN SL Prn Chest Pain 05/01/19 19:00 05/08/19 21:29 Ondansetron HCl (Zofran) 4 mg Q6H PRN IVP Nausea & Vomiting 05/01/19 19:16 05/31/19 19:15 Oxymetazoline HCl (Afrin Nasal [place]) 1 spray Q6H PRN NASAL nasal congestion 05/01/19 19:16 05/31/19 19:15 Polyethylene Glycol (Miralax) 17 gm BEDTIME ORAL 05/01/19 21:00 05/31/19 20:59 05/01/19 20:37 Promethazine HCl/ Codeine (Phenergan with Codeine) 5 ml Q6H PRN ORAL cough 05/01/19 19:17 05/31/19 19:16 05/04/19 21:01 Tamsulosin HCl (Flomax) 0.4 mg BEDTIME ORAL 05/01/19 21:00 05/09/19 20:59 05/04/19 20:59 Robert Canela MD May 05, 2019 10:42
[2019-05-05 12:00] VITALS: BP 131/77
--- NOTE | 2019-05-05 13:02 | Pulmonology Progress Note ---
Assessment/Plan Problems: (1) Nosocomial pneumonia (2) Respiratory failure with hypoxia (3) COPD exacerbation (4) Pacemaker (5) Diabetes mellitus (6) Prostate cancer Assessment/Plan still short of breath on nasal cannula now on and off bipap sputum showing randi still short of breath, loud rhonchi sliding scale pt doesn't want diabetic diet Subjective ROS Limited/Unobtainable: No HEENT: Repors: no symptoms Respiratory: Reports: no symptoms Allergies: Coded Allergies: No Known Allergies (Unverified , 10/24/16) Objective Last 24 Hour Vital Signs Date Time Temp Pulse Resp B/P (MAP) Pulse Ox O2 Delivery O2 Flow Rate FiO2 05/05/19 09:39 82 132/74 05/05/19 09:00 Nasal Cannula 2.0 05/05/19 08:00 97.1 82 20 132/74 (93) 94 05/05/19 07:00 95 Nasal Cannula 3.0 32 05/05/19 00:00 98.5 76 15 123/74 (90) 92 05/04/19 21:01 95 148/87 05/04/19 21:00 Nasal Cannula 2.0 05/04/19 20:00 97.8 95 19 148/87 (107) 95 05/04/19 19:13 94 Nasal Cannula 3.0 32 05/04/19 18:00 97.8 05/04/19 16:00 97.8 75 19 121/77 (92) 97 Intake and Output 05/04/19 05/05/19 19:00 07:00 Intake Total 775 ml 480 ml Output Total 800 ml 1000 ml Balance -25 ml -520 ml Intake Oral 720 ml 480 ml IV Total 55 ml Output Urine Total 800 ml 1000 ml # Voids 1 # Bowel Movements 1 1 General Appearance: WD/WN HEENT: normocephalic, atraumatic Respiratory/Chest: chest wall non-tender, lungs clear Cardiovascular: normal peripheral pulses, normal rate Abdomen: normal bowel sounds, soft, non tender Genitourinary: normal external genitalia Extremities: no clubbing Neurologic/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 Microbiology Date/Time Source Procedure Growth Status 05/04/19 12:30 Indwelling Cath Urine Culture - Preliminary Resulted 05/02/19 16:10 Urine,Clean Catch Urine Culture - Final Randi Albicans Complete Laboratory Tests 05/05/19 05:05: White Blood Count 12.0H, Red Blood Count 4.08L, Hemoglobin 11.9L, Hematocrit 37.5L, Mean Corpuscular Volume 92, Mean Corpuscular Hemoglobin 29.3, Mean Corpuscular Hemoglobin Concent 31.8L, Red Cell Distribution Width 15.7H, Platelet Count 365, Mean Platelet Volume 5.8L, Neutrophils (%) (Auto) 65.8, Lymphocytes (%) (Auto) 23.4, Monocytes (%) (Auto) 7.6, Eosinophils (%) (Auto) 1.4, Basophils (%) (Auto) 1.9, Sodium Level 145, Potassium Level 4.2, Chloride Level 105, Carbon Dioxide Level 35H, Anion Gap 5, Blood Urea Nitrogen 25H, Creatinine 1.0, Estimat Glomerular Filtration Rate > 60, Glucose Level 115H, Calcium Level 9.0 Current Medications Medications (Trade) Dose Ordered Sig/Dejon Route PRN Reason Start Time Stop Time Status Last Admin Dose Admin Acetaminophen (Tylenol) 650 mg Q4H PRN ORAL fever 05/01/19 19:14 05/31/19 19:13 05/02/19 01:18 Acetaminophen/ Hydrocodone Bitart ([place] 5/325) 1 tab Q6H PRN ORAL Severe Pain (Pain Scale 7-10) 05/01/19 19:16 05/08/19 19:15 05/05/19 09:51 Albuterol/ Ipratropium (Albuterol/ Ipratropium) 3 ml Q4H PRN HHN Shortness of Breath 05/01/19 19:16 05/06/19 19:15 05/04/19 09:43 Apixaban (Eliquis) 5 mg BID ORAL 05/02/19 09:00 05/09/19 08:59 05/05/19 09:39 Carvedilol (Coreg) 6.25 mg EVERY 12 HOURS ORAL 05/01/19 21:00 05/09/19 08:59 05/05/19 09:39 Clonidine HCl (Catapres Tab) 0.1 mg Q4H PRN ORAL sbp more than 160 05/01/19 19:14 05/31/19 19:13 Clotrimazole (Lotrimin) 1 applic THREE TIMES A DAY TOPIC 05/02/19 09:00 05/20/19 12:59 05/05/19 09:00 Dextrose (Dextrose 50%) 25 ml Q30M PRN IV Hypoglycemia 05/01/19 19:30 05/09/19 15:29 Dextrose (Dextrose 50%) 50 ml Q30M PRN IV Hypoglycemia 05/01/19 19:30 05/09/19 07:29 Docusate Sodium (Colace) 100 mg TWICE A DAY ORAL 05/02/19 09:00 05/31/19 08:59 05/05/19 09:39 Escitalopram Oxalate (Lexapro) 10 mg DAILY ORAL 05/02/19 09:00 05/27/19 08:59 05/05/19 09:39 Insulin Aspart (NovoLOG) BEFORE MEALS AND HS SUBQ 05/01/19 21:00 05/09/19 13:29 05/05/19 06:29 Insulin Aspart (NovoLOG) 14 units NOVOTIAC SUBQ 05/02/19 16:50 05/10/19 07:29 05/05/19 06:30 Insulin Detemir (Levemir) 24 units DAILY SUBQ 05/05/19 09:00 05/09/19 20:59 05/05/19 09:50 Levothyroxine Sodium (Synthroid) 75 mcg ACBREAKFAST ORAL 05/02/19 06:30 05/27/19 06:29 05/05/19 06:28 Levothyroxine Sodium (Synthroid) 100 mcg ACBREAKFAST ORAL 05/02/19 06:30 05/09/19 06:29 05/05/19 06:28 Methylprednisolone Sodium Succinate (Solu-MEDROL) 30 mg DAILY IVP 05/04/19 09:00 05/30/19 08:59 05/05/19 09:39 Nitroglycerin (Ntg) 0.4 mg Q5M X 3 DOSES PRN SL Prn Chest Pain 05/01/19 19:00 05/08/19 21:29 Ondansetron HCl (Zofran) 4 mg Q6H PRN IVP Nausea & Vomiting 05/01/19 19:16 05/31/19 19:15 Oxymetazoline HCl (Afrin Nasal [place]) 1 spray Q6H PRN NASAL nasal congestion 05/01/19 19:16 05/31/19 19:15 Polyethylene Glycol (Miralax) 17 gm BEDTIME ORAL 05/01/19 21:00 05/31/19 20:59 05/01/19 20:37 Promethazine HCl/ Codeine (Phenergan with Codeine) 5 ml Q6H PRN ORAL cough 05/01/19 19:17 05/31/19 19:16 05/04/19 21:01 Tamsulosin HCl (Flomax) 0.4 mg BEDTIME ORAL 05/01/19 21:00 05/09/19 20:59 05/04/19 20:59 Goldie Obrien MD May 05, 2019 13:02
--- NOTE | 2019-05-05 13:04 | Internal Med Progress Note ---
Subjective Date of Service: May 05, 2019 Physician Name BrittneyIdris Attending Physician Jewel Giraldo MD Current Medications Medications (Trade) Dose Ordered Sig/Dejon Route PRN Reason Start Time Stop Time Status Last Admin Dose Admin Acetaminophen (Tylenol) 650 mg Q4H PRN ORAL fever 05/01/19 19:14 05/31/19 19:13 05/02/19 01:18 Acetaminophen/ Hydrocodone Bitart ([place] 5/325) 1 tab Q6H PRN ORAL Severe Pain (Pain Scale 7-10) 05/01/19 19:16 05/08/19 19:15 05/05/19 09:51 Albuterol/ Ipratropium (Albuterol/ Ipratropium) 3 ml Q4H PRN HHN Shortness of Breath 05/01/19 19:16 05/06/19 19:15 05/04/19 09:43 Apixaban (Eliquis) 5 mg BID ORAL 05/02/19 09:00 05/09/19 08:59 05/05/19 09:39 Carvedilol (Coreg) 6.25 mg EVERY 12 HOURS ORAL 05/01/19 21:00 05/09/19 08:59 05/05/19 09:39 Clonidine HCl (Catapres Tab) 0.1 mg Q4H PRN ORAL sbp more than 160 05/01/19 19:14 05/31/19 19:13 Clotrimazole (Lotrimin) 1 applic THREE TIMES A DAY TOPIC 05/02/19 09:00 05/20/19 12:59 05/05/19 09:00 Dextrose (Dextrose 50%) 25 ml Q30M PRN IV Hypoglycemia 05/01/19 19:30 05/09/19 15:29 Dextrose (Dextrose 50%) 50 ml Q30M PRN IV Hypoglycemia 05/01/19 19:30 05/09/19 07:29 Docusate Sodium (Colace) 100 mg TWICE A DAY ORAL 05/02/19 09:00 05/31/19 08:59 05/05/19 09:39 Escitalopram Oxalate (Lexapro) 10 mg DAILY ORAL 05/02/19 09:00 05/27/19 08:59 05/05/19 09:39 Insulin Aspart (NovoLOG) BEFORE MEALS AND HS SUBQ 05/01/19 21:00 05/09/19 13:29 05/05/19 06:29 Insulin Aspart (NovoLOG) 14 units NOVOTIAC SUBQ 05/02/19 16:50 05/10/19 07:29 05/05/19 06:30 Insulin Detemir (Levemir) 24 units DAILY SUBQ 05/05/19 09:00 05/09/19 20:59 05/05/19 09:50 Levothyroxine Sodium (Synthroid) 75 mcg ACBREAKFAST ORAL 05/02/19 06:30 05/27/19 06:29 05/05/19 06:28 Levothyroxine Sodium (Synthroid) 100 mcg ACBREAKFAST ORAL 05/02/19 06:30 05/09/19 06:29 05/05/19 06:28 Methylprednisolone Sodium Succinate (Solu-MEDROL) 30 mg DAILY IVP 05/04/19 09:00 05/30/19 08:59 05/05/19 09:39 Nitroglycerin (Ntg) 0.4 mg Q5M X 3 DOSES PRN SL Prn Chest Pain 05/01/19 19:00 05/08/19 21:29 Ondansetron HCl (Zofran) 4 mg Q6H PRN IVP Nausea & Vomiting 05/01/19 19:16 05/31/19 19:15 Oxymetazoline HCl (Afrin Nasal [place]) 1 spray Q6H PRN NASAL nasal congestion 05/01/19 19:16 05/31/19 19:15 Polyethylene Glycol (Miralax) 17 gm BEDTIME ORAL 05/01/19 21:00 05/31/19 20:59 05/01/19 20:37 Promethazine HCl/ Codeine (Phenergan with Codeine) 5 ml Q6H PRN ORAL cough 05/01/19 19:17 05/31/19 19:16 05/04/19 21:01 Tamsulosin HCl (Flomax) 0.4 mg BEDTIME ORAL 05/01/19 21:00 05/09/19 20:59 05/04/19 20:59 Allergies: Coded Allergies: No Known Allergies (Unverified , 10/24/16) ROS Limited/Unobtainable: No Subjective 73 YO M admitted with COPD exacerbation. Now respiratory failure and pneumonia. Cover for [facility] Med-DR Enzo. Patient refusing care. Verbally abusive to staff Objective Last Vital Signs Date Time Temp Pulse Resp B/P (MAP) Pulse Ox O2 Delivery O2 Flow Rate FiO2 05/05/19 09:39 82 132/74 05/05/19 09:00 Nasal Cannula 2.0 05/05/19 08:00 97.1 20 94 05/05/19 07:00 32 Laboratory Tests Test 05/05/19 05:05 White Blood Count 12.0 K/UL (4.8-10.8) H Red Blood Count 4.08 M/UL (4.70-6.10) L Hemoglobin 11.9 G/DL (14.2-18.0) L Hematocrit 37.5 % (42.0-52.0) L Mean Corpuscular Volume 92 FL (80-99) Mean Corpuscular Hemoglobin 29.3 PG (27.0-31.0) Mean Corpuscular Hemoglobin Concent 31.8 G/DL (32.0-36.0) L Red Cell Distribution Width 15.7 % (11.6-14.8) H Platelet Count 365 K/UL (150-450) Mean Platelet Volume 5.8 FL (6.5-10.1) L Neutrophils (%) (Auto) 65.8 % (45.0-75.0) Lymphocytes (%) (Auto) 23.4 % (20.0-45.0) Monocytes (%) (Auto) 7.6 % (1.0-10.0) Eosinophils (%) (Auto) 1.4 % (0.0-3.0) Basophils (%) (Auto) 1.9 % (0.0-2.0) Sodium Level 145 MMOL/L (136-145) Potassium Level 4.2 MMOL/L (3.5-5.1) Chloride Level 105 MMOL/L (98-107) Carbon Dioxide Level 35 MMOL/L (21-32) H Anion Gap 5 mmol/L (5-15) Blood Urea Nitrogen 25 mg/dL (7-18) H Creatinine 1.0 MG/DL (0.55-1.30) Estimat Glomerular Filtration Rate > 60 mL/min (>60) Glucose Level 115 MG/DL (74-106) H Calcium Level 9.0 MG/DL (8.5-10.1) Microbiology Date/Time Source Procedure Growth Status 05/04/19 12:30 Indwelling Cath Urine Culture - Preliminary Resulted 05/02/19 16:10 Urine,Clean Catch Urine Culture - Final Randi Albicans Complete Intake and Output 05/04/19 05/05/19 19:00 07:00 Intake Total 775 ml 480 ml Output Total 800 ml 1000 ml Balance -25 ml -520 ml Intake Oral 720 ml 480 ml IV Total 55 ml Output Urine Total 800 ml 1000 ml # Voids 1 # Bowel Movements 1 1 Objective PHYSICAL EXAMINATION: GENERAL: The patient is awake, responsive, no acute distress. HEAD AND NECK: Pupils are equal and reactive to light. Extraocular muscles intact. Neck was supple. No JVD. LUNGS: BIPAP;The patient has expiratory wheezes noted. Tachypneic. No rhonchi was noted. HEART: S1, S2. Irregular. No murmur. The patient has a pacemaker in the left-sided chest wall. ABDOMEN: Soft, nondistended, nontender. Mildly obese. EXTREMITIES: No cyanosis, clubbing, edema. NEUROLOGIC: Cranial nerves II through XII grossly normal. Motor is 5/5 in all extremities. Gait is intact. GENITOURINARY: It was noted the patient has a [place] catheter. RECTAL: Refused and deferred. PSYCHIATRIC: Mood and affect is intact. Assessment/Plan Assessment/Plan ASSESSMENT: 1. Acute hypoxemic respiratory failure, most likely secondary to acute COPD exacerbation. 2. Acute COPD exacerbation. 3. Pneumonia. 4. Sick sinus syndrome status post pacemaker. 5. Diabetes type 2. 6. Prostate cancer. 7. Hyperkalemia. 8. Insulin induced hyperglycemia. 9. Prostate enlargement. 10. Leukocytosis 11. RBBB PLAN: 1. Med/Surg 2. D/C Solu-Medrol IV Per Pulmonary consult=Dr. Obrien. 3. Endocrinology=Dr To. Monitor blood glucose level closely. 4. antibiotic=S/P ertapenem and vanco. ID=Dr Villa 5. Code status is Full Code. DVT prophylaxis, he is on Eliquis. 6. Discharge planning Idris Lugo MD May 05, 2019 13:04
[2019-05-05 16:00] VITALS: BP 130/70
[2019-05-05 20:00] VITALS: BP 122/85
[2019-05-05] MEDS: Miralax 17gm pkt ORAL SCH (21:00)
[2019-05-05] MEDS: Tamsulosin 0.4mg cap ORAL SCH (21:27)
[2019-05-05] MEDS: Albuterol/Ipratropium 3ml neb HHN PRN (21:57)
[2019-05-06] VITALS (12 sets, daily range): BP systolic 119–155; BP diastolic 72–102
--- NOTE | 2019-05-06 02:15 | Progress Note ---
DATE: 05/05/2019 SUBJECTIVE: The patient is in bed, no acute distress. Continues to be uncooperative with the staff and refusing medications. is awaiting for EGD. The patient is irritable and angry. MENTAL STATUS EXAMINATION: The patient is alert and oriented times self, place, and situation. Mood is neutral. Affect is constricted, congruent with mood. Thought process is concrete. Thought content, no suicidal or homicidal ideation. ASSESSMENT: Major depressive disorder. PLAN: 1. Continue current psychotropic medications. 2. Provide the patient with reality orientation and supportive therapy. Ottoniel Hillman M.D. DR: ELENA JOB#: [id number] CC: JACKELIN
[2019-05-06] MEDS: HYDROcodone/Acetamin 5/325 tab ORAL PRN ×2 (04:59→15:01)
[2019-05-06] MEDS: Albuterol/Ipratropium 3ml neb HHN PRN ×2 (05:41→20:10)
--- NOTE | 2019-05-06 06:05 | General Progress Note ---
Assessment/Plan Problem List: (1) COPD exacerbation ICD Codes: J44.1 - Chronic obstructive pulmonary disease with (acute) exacerbation SNOMED: 281940514 (2) Respiratory failure with hypoxia ICD Codes: J96.91 - Respiratory failure, unspecified with hypoxia SNOMED: 74408450077837667 (3) Diabetes mellitus ICD Codes: E11.9 - Type 2 diabetes mellitus without complications SNOMED: 56805174 (4) Pacemaker ICD Codes: Z95.0 - Presence of cardiac pacemaker SNOMED: 603814862 (5) Prostate cancer ICD Codes: C61 - Malignant neoplasm of prostate SNOMED: 511501376 (6) Hypothyroid ICD Codes: E03.9 - Hypothyroidism, unspecified SNOMED: 75468361 Status: unchanged Assessment/Plan: change Levemir 24 units qhs to qam continue Novolog 14 units ac tid continue NISS ac / hs continue Levothyroxine 175 mcg qam repeat thyroid function in 3 weeks Subjective ROS Limited/Unobtainable: Yes Allergies: Coded Allergies: No Known Allergies (Unverified , 10/24/16) Subjective refused insulin and glucose check for the most part yesterday Item Value Date Time Bedside Blood Glucose 191 mg/dl H 05/05/19 0950 Bedside Blood Glucose 191 mg/dl H 05/05/19 0630 Objective Last 24 Hour Vital Signs Date Time Temp Pulse Resp B/P (MAP) Pulse Ox O2 Delivery O2 Flow Rate FiO2 05/06/19 05:41 82 20 96 Nasal Cannula 3.0 32 81 20 95 05/06/19 00:00 97.8 91 20 126/72 (90) 90 05/05/19 21:57 81 20 96 Nasal Cannula 3.0 32 78 20 94 05/05/19 21:27 75 122/85 05/05/19 21:00 Nasal Cannula 2.0 05/05/19 20:00 97.3 75 20 122/85 (97) 92 05/05/19 20:00 94 Nasal Cannula 3.0 32 05/05/19 16:00 98.1 80 20 130/70 (90) 91 05/05/19 12:00 97.3 75 18 131/77 (95) 91 05/05/19 09:39 82 132/74 05/05/19 09:00 Nasal Cannula 2.0 05/05/19 08:00 97.1 82 20 132/74 (93) 94 05/05/19 07:00 95 Nasal Cannula 3.0 32 Intake and Output 05/05/19 05/06/19 19:00 07:00 Output Total 2000 ml Balance -2000 ml Output Urine Total 2000 ml # Bowel Movements 1 Laboratory Tests 05/06/19 04:50: White Blood Count [Pending], Red Blood Count [Pending], Hemoglobin [Pending], Hematocrit [Pending], Mean Corpuscular Volume [Pending], Mean Corpuscular Hemoglobin [Pending], Mean Corpuscular Hemoglobin Concent [Pending], Red Cell Distribution Width [Pending], Platelet Count [Pending], Mean Platelet Volume [ Pending], Neutrophils (%) (Auto) [Pending], Lymphocytes (%) (Auto) [Pending], Monocytes (%) (Auto) [Pending], Eosinophils (%) (Auto) [Pending], Basophils (%) (Auto) [Pending], Sodium Level [Pending], Potassium Level [Pending], Chloride Level [Pending], Carbon Dioxide Level [Pending], Blood Urea Nitrogen [Pending], Creatinine [Pending], Estimat Glomerular Filtration Rate [Pending], Glucose Level [Pending], Calcium Level [Pending] Height (Feet): 6 Height (Inches): 0.00 Weight (Pounds): 212 General Appearance: no apparent distress Neck: normal alignment Cardiovascular: normal rate Respiratory/Chest: lungs clear Abdomen: normal bowel sounds Objective Current Medications Medications (Trade) Dose Ordered Sig/Dejon Route PRN Reason Start Time Stop Time Status Last Admin Dose Admin Acetaminophen (Tylenol) 650 mg Q4H PRN ORAL fever 05/01/19 19:14 05/31/19 19:13 05/02/19 01:18 Acetaminophen/ Hydrocodone Bitart ([place] 5/325) 1 tab Q6H PRN ORAL Severe Pain (Pain Scale 7-10) 05/01/19 19:16 05/08/19 19:15 05/06/19 04:59 Albuterol/ Ipratropium (Albuterol/ Ipratropium) 3 ml Q4H PRN HHN Shortness of Breath 05/01/19 19:16 05/06/19 19:15 05/06/19 05:41 Apixaban (Eliquis) 5 mg BID ORAL 05/02/19 09:00 05/09/19 08:59 05/05/19 17:26 Carvedilol (Coreg) 6.25 mg EVERY 12 HOURS ORAL 05/01/19 21:00 05/09/19 08:59 05/05/19 21:27 Clonidine HCl (Catapres Tab) 0.1 mg Q4H PRN ORAL sbp more than 160 05/01/19 19:14 05/31/19 19:13 Clotrimazole (Lotrimin) 1 applic THREE TIMES A DAY TOPIC 05/02/19 09:00 05/20/19 12:59 05/05/19 09:00 Dextrose (Dextrose 50%) 25 ml Q30M PRN IV Hypoglycemia 05/01/19 19:30 05/09/19 15:29 Dextrose (Dextrose 50%) 50 ml Q30M PRN IV Hypoglycemia 05/01/19 19:30 05/09/19 07:29 Docusate Sodium (Colace) 100 mg TWICE A DAY ORAL 05/02/19 09:00 05/31/19 08:59 05/05/19 17:25 Escitalopram Oxalate (Lexapro) 10 mg DAILY ORAL 05/02/19 09:00 05/27/19 08:59 05/05/19 09:39 Insulin Aspart (NovoLOG) BEFORE MEALS AND HS SUBQ 05/01/19 21:00 05/09/19 13:29 05/05/19 06:29 Insulin Aspart (NovoLOG) 14 units NOVOTIAC SUBQ 05/02/19 16:50 05/10/19 07:29 05/05/19 06:30 Insulin Detemir (Levemir) 24 units DAILY SUBQ 05/05/19 09:00 05/09/19 20:59 05/05/19 09:50 Levothyroxine Sodium (Synthroid) 75 mcg ACBREAKFAST ORAL 05/02/19 06:30 05/27/19 06:29 05/05/19 06:28 Levothyroxine Sodium (Synthroid) 100 mcg ACBREAKFAST ORAL 05/02/19 06:30 05/09/19 06:29 05/05/19 06:28 Methylprednisolone Sodium Succinate (Solu-MEDROL) 30 mg DAILY IVP 05/04/19 09:00 05/30/19 08:59 05/05/19 09:39 Nitroglycerin (Ntg) 0.4 mg Q5M X 3 DOSES PRN SL Prn Chest Pain 05/01/19 19:00 05/08/19 21:29 Ondansetron HCl (Zofran) 4 mg Q6H PRN IVP Nausea & Vomiting 05/01/19 19:16 05/31/19 19:15 Oxymetazoline HCl (Afrin Nasal [place]) 1 spray Q6H PRN NASAL nasal congestion 05/01/19 19:16 05/31/19 19:15 Polyethylene Glycol (Miralax) 17 gm BEDTIME ORAL 05/01/19 21:00 05/31/19 20:59 05/01/19 20:37 Promethazine HCl/ Codeine (Phenergan with Codeine) 5 ml Q6H PRN ORAL cough 05/01/19 19:17 05/31/19 19:16 05/04/19 21:01 Tamsulosin HCl (Flomax) 0.4 mg BEDTIME ORAL 05/01/19 21:00 05/09/19 20:59 05/05/19 21:27 Geovanni To MD May 06, 2019 06:05
[2019-05-06] MEDS: NovoLOG Insulin Flexpen SUBQ SCH ×7 (06:26→21:00)
[2019-05-06 06:56] LABS: BASOPHILS % (AUTO) 1.9 % (0.0-2.0); EOSINOPHILS % (AUTO) 1.5 % (0.0-3.0); HEMATOCRIT 38.1 % (42.0-52.0); HEMOGLOBIN 11.9 G/DL (14.2-18.0); LYMPHOCYTES % (AUTO) 25.7 % (20.0-45.0); MEAN CORPUSCULAR VOLUME 93 FL (80-99); MONOCYTES % (AUTO) 6.5 % (1.0-10.0); NEUTROPHILS % (AUTO) 64.5 % (45.0-75.0); PLATELET COUNT 354 K/UL (150-450); RED BLOOD COUNT 4.11 M/UL (4.70-6.10); RED CELL DISTRIBUTION WIDTH 15.7 % (11.6-14.8); WHITE BLOOD COUNT 11.9 K/UL (4.8-10.8)
[2019-05-06 07:14] LABS: ANION GAP 5 mmol/L (5-15); BLOOD UREA NITROGEN 27 mg/dL (7-18); CALCIUM 9.2 MG/DL (8.5-10.1); CARBON DIOXIDE 34 MMOL/L (21-32); CHLORIDE 104 MMOL/L (98-107); CREATININE 1.1 MG/DL (0.55-1.30); POTASSIUM 4.3 MMOL/L (3.5-5.1); SODIUM 143 MMOL/L (136-145)
[2019-05-06] MEDS: Solu-MEDROL 40mg Inj IVP SCH (09:42)
[2019-05-06] MEDS: Carvedilol 6.25mg Tab ORAL SCH ×2 (09:43→21:11)
[2019-05-06] MEDS: Docusate 100mg cap ORAL SCH ×2 (09:43→17:54)
[2019-05-06] MEDS: Eliquis 5mg tablet ORAL SCH ×2 (09:43→17:55)
[2019-05-06] MEDS: Levemir Flexpen SUBQ SCH (10:03)
[2019-05-06] MEDS ORDERED: LR 1000ml 1,000 ML IVLG SCH (10:58)
[2019-05-06] MEDS ORDERED: DiphenhydrAMINE 50mg/ml Inj IVP PRN (11:00)
[2019-05-06] MEDS ORDERED: fentaNYL 100 mcg/2 mL IV PRN (11:00)
[2019-05-06] MEDS ORDERED: Atropine Sulfate 0.4mg/ml inj IVP PRN (11:00)
[2019-05-06] MEDS ORDERED: Hydromorphone 0.5mg/0.5ml inj IVP PRN (11:00)
[2019-05-06] MEDS ORDERED: HYDROcodone/Acetamin 5/325 tab ORAL PRN (11:00)
[2019-05-06] MEDS ORDERED: oxyCODONE HCL/Acetaminophen 5/325mg ORAL PRN (11:00)
[2019-05-06] MEDS ORDERED: HYDROcodone/Acetamin 7.5/325 tab ORAL PRN (11:00)
--- NOTE | 2019-05-06 11:02 | Anethesia Preoperative Eval ---
Anesthesia Pre-op PMH/ROS General Date of Evaluation: May 06, 2019 Anesthesiologist: Shade ASA Score: ASA 3 Mallampati Score Class I : Soft palate, uvula, fauces, pillars visible Class II: Soft palate, uvula, fauces visible Class III: Soft palate, base of uvula visible Class IV: Only hard plate visible Mallampati Classification: Class III Surgeon: Bessie Diagnosis: Abd Pain Surgical Procedure: EGD Anesthesia History: none Family History: no anesthesia problems Allergies: Coded Allergies: No Known Allergies (Unverified , 10/24/16) Medications: see eMAR Patient NPO?: Yes Past Medical History Cardiovascular: Reports: HTN, arrhythmia - Pacemaker, other - CHF Pulmonary: Reports: COPD Gastrointestinal/Genitourinary: Reports: CRI, other - Prostate CA Hematology/Immune: Reports: anemia Anesthesia Pre-op Phys. Exam Physician Exam Last Vital Signs Date Time Temp Pulse Resp B/P (MAP) Pulse Ox O2 Delivery O2 Flow Rate FiO2 05/06/19 09:43 75 127/83 05/06/19 08:00 97.5 20 93 05/06/19 05:41 Nasal Cannula 3.0 32 Constitutional: NAD Neurologic: CN 2-12 intact Cardiovascular: RRR Respiratory: CTA Gastrointestinal: S/NT/ND Airway Exam Mallampati Score: Class III MO: limited ROM: limited Teeth: missing, intact Anesthesia Pre-op A/P Labs Hematology Test 05/06/19 04:50 White Blood Count 11.9 K/UL (4.8-10.8) H Red Blood Count 4.11 M/UL (4.70-6.10) L Hemoglobin 11.9 G/DL (14.2-18.0) L Hematocrit 38.1 % (42.0-52.0) L Mean Corpuscular Volume 93 FL (80-99) Mean Corpuscular Hemoglobin 29.0 PG (27.0-31.0) Mean Corpuscular Hemoglobin Concent 31.3 G/DL (32.0-36.0) L Red Cell Distribution Width 15.7 % (11.6-14.8) H Platelet Count 354 K/UL (150-450) Mean Platelet Volume 5.7 FL (6.5-10.1) L Neutrophils (%) (Auto) 64.5 % (45.0-75.0) Lymphocytes (%) (Auto) 25.7 % (20.0-45.0) Monocytes (%) (Auto) 6.5 % (1.0-10.0) Eosinophils (%) (Auto) 1.5 % (0.0-3.0) Basophils (%) (Auto) 1.9 % (0.0-2.0) Chemistry Test 05/06/19 04:50 Sodium Level 143 MMOL/L (136-145) Potassium Level 4.3 MMOL/L (3.5-5.1) Chloride Level 104 MMOL/L (98-107) Carbon Dioxide Level 34 MMOL/L (21-32) H Anion Gap 5 mmol/L (5-15) Blood Urea Nitrogen 27 mg/dL (7-18) H Creatinine 1.1 MG/DL (0.55-1.30) Estimat Glomerular Filtration Rate > 60 mL/min (>60) Glucose Level 127 MG/DL (74-106) H Calcium Level 9.2 MG/DL (8.5-10.1) Risk Assessment & Plan Assessment: ASA 3 Plan: TIVA Status Change Before Surgery: No Gilberto Laguerre MD May 06, 2019 11:02
--- NOTE | 2019-05-06 11:13 | Pre-Procedure Note/Attestation ---
Pre-Procedure Note/Attestation Complete Prior to Procedure Planned Procedure: not applicable Procedure Narrative: egd Indications for Procedure Pre-Operative Diagnosis: gerd Attestation I attest that I discussed the nature of the procedure; its benefits; risks and complications; and alternatives (and the risks and benefits of such alternatives ), prior to the procedure, with the patient (or the patient's legal home office representative). I attest that, if there was a reasonable possibility of needing a blood transfusion, the patient (or the patient's legal home office representative) was given the [facility] standardized written summary, pursuant to the [place] Blood Safety Act ([place] Health and Safety Code # 1645, as amended). I attest that I re-evaluated the patient just prior to the surgery and that there has been no change in the patient's H&P, except as documented below: Christiano La MD May 06, 2019 11:13
[2019-05-06] MEDS ORDERED: Midazolam 2mg/2ml Inj ONE (11:18)
[2019-05-06] MEDS ORDERED: NS 500ML IVPB ONE (11:26)
[2019-05-06] MEDS ORDERED: Lidocaine 1% MPF 10mg/ml 5ml ONE (11:30)
[2019-05-06] MEDS ORDERED: LR 1000ml ONE (11:30)
[2019-05-06] MEDS ORDERED: Propofol 200mg/20ml IV ONE (11:30)
--- NOTE | 2019-05-06 11:41 | Endoscopy Procedure Note ---
Endoscopy Procedure Note General Indication for Procedure: anemia Procedures Performed: EGD Operative Findings/Diagnosis: gastritis Specimen: yes Pt Tolerated Procedure Well: Yes Estimated Blood Loss: none Anesthesia Anesthesiologist: ana Anesthesia: MAC Inserted Devices Implant(s) used?: No GI Core Measures 50 yrs or older w/o bx or poly: Not Applicable 10yrs. F/U recommended: Not Applicable Christiano La MD May 06, 2019 11:41
--- NOTE | 2019-05-06 11:45 | Immediate Post-Op Evaluation ---
Immediate Post-Op Evalulation Immediate Post-Op Evalulation Procedure: EGD Date of Evaluation: May 06, 2019 Time of Evaluation: 12:09 IV Fluids: 100NS Blood Products: 0 Estimated Blood Loss: 1 Urinary Output: 0 Blood Pressure Systolic: 140 Blood Pressure Diastolic: 102 Pulse Rate: 72 Respiratory Rate: 16 O2 Sat by Pulse Oximetry: 94 Temperature (Fahrenheit): 97.5 Pain Score (1-10): 1 Nausea: No Vomiting: No Complications 0 Patient Status: awake, reacts, patent, none Hydration Status: adequate Gilberto Laguerre MD May 06, 2019 11:45
--- NOTE | 2019-05-06 11:46 | 48 Hour Post Anesthesia Eval ---
Post Anesthesia Evaluation Procedure: EGD Date of Evaluation: May 06, 2019 Time of Evaluation: 14:12 Blood Pressure Systolic: 139 0: 96 Pulse Rate: 84 Respiratory Rate: 18 Temperature (Fahrenheit): 97.5 O2 Sat by Pulse Oximetry: 94 Airway: patent Nausea: No Vomiting: No Pain Intensity: 1 Hydration Status: adequate Cardiopulmonary Status: Stable Mental Status/LOC: patient returned to baseline Follow-up Care/Observations: 0 Post-Anesthesia Complications: 0 Follow-up care needed: N/A Gilberto Laguerre MD May 06, 2019 11:46
--- NOTE | 2019-05-06 14:46 | Pulmonology Progress Note ---
Assessment/Plan Problems: (1) Nosocomial pneumonia (2) Respiratory failure with hypoxia (3) COPD exacerbation (4) Pacemaker (5) Diabetes mellitus (6) Prostate cancer Assessment/Plan still short of breath wtih episodes of cough spell on nasal cannula now on and off bipap sputum showing dale still short of breath, loud rhonchi sliding scale pt doesn't want diabetic diet He wants to go home on Friday now Subjective ROS Limited/Unobtainable: No Constitutional: Reports: no symptoms HEENT: Repors: no symptoms Allergies: Coded Allergies: No Known Allergies (Unverified , 10/24/16) Objective Last 24 Hour Vital Signs Date Time Temp Pulse Resp B/P (MAP) Pulse Ox O2 Delivery O2 Flow Rate FiO2 05/06/19 13:25 97.3 74 20 119/77 (91) 90 05/06/19 12:25 71 20 138/89 95 Nasal Cannula 3 71 05/06/19 12:15 97.7 73 18 124/86 95 Nasal Cannula 3 73 05/06/19 12:10 72 20 135/87 95 Nasal Cannula 3 72 05/06/19 12:00 71 17 133/90 92 Simple Mask 6 71 05/06/19 11:56 84 18 94 05/06/19 11:55 72 15 134/96 92 Simple Mask 6 72 05/06/19 11:55 72 16 94 05/06/19 11:50 73 19 149/99 92 Simple Mask 6 73 05/06/19 11:45 97.5 72 22 140/102 92 Simple Mask 6 72 05/06/19 09:43 75 127/83 05/06/19 08:00 97.5 75 20 127/83 (98) 93 05/06/19 05:41 82 20 96 Nasal Cannula 3.0 32 81 20 95 05/06/19 00:00 97.8 91 20 126/72 (90) 90 05/05/19 21:57 81 20 96 Nasal Cannula 3.0 32 78 20 94 05/05/19 21:27 75 122/85 05/05/19 21:00 Nasal Cannula 2.0 05/05/19 20:00 97.3 75 20 122/85 (97) 92 05/05/19 20:00 94 Nasal Cannula 3.0 32 05/05/19 16:00 98.1 80 20 130/70 (90) 91 Intake and Output 2/26/20 2/27/20 19:00 07:00 Intake Total 600 ml Output Total 2600 ml Balance -2000 ml Intake Oral 600 ml Output Urine Total 2600 ml # Bowel Movements 2 General Appearance: WD/WN HEENT: normocephalic, atraumatic Respiratory/Chest: chest wall non-tender, normal breath sounds Cardiovascular: normal peripheral pulses, normal rate Abdomen: normal bowel sounds, soft, non tender Genitourinary: normal external genitalia Extremities: no cyanosis 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 Lymphatic: no neck adenopathy Microbiology Date/Time Source Procedure Growth Status 05/04/19 12:30 Indwelling Cath Urine Culture - Preliminary Yeast Species Resulted Laboratory Tests 05/06/19 04:50: White Blood Count 11.9H, Red Blood Count 4.11L, Hemoglobin 11.9L, Hematocrit 38.1L, Mean Corpuscular Volume 93, Mean Corpuscular Hemoglobin 29.0, Mean Corpuscular Hemoglobin Concent 31.3L, Red Cell Distribution Width 15.7H, Platelet Count 354, Mean Platelet Volume 5.7L, Neutrophils (%) (Auto) 64.5, Lymphocytes (%) (Auto) 25.7, Monocytes (%) (Auto) 6.5, Eosinophils (%) (Auto) 1.5, Basophils (%) (Auto) 1.9, Sodium Level 143, Potassium Level 4.3, Chloride Level 104, Carbon Dioxide Level 34H, Anion Gap 5, Blood Urea Nitrogen 27H, Creatinine 1.1, Estimat Glomerular Filtration Rate > 60, Glucose Level 127H, Calcium Level 9.2 Current Medications Medications (Trade) Dose Ordered Sig/Dejon Route PRN Reason Start Time Stop Time Status Last Admin Dose Admin Acetaminophen (Tylenol) 650 mg Q4H PRN ORAL fever 05/01/19 19:14 05/31/19 19:13 05/02/19 01:18 Acetaminophen/ Hydrocodone Bitart ([place] 5/325) 1 tab Q1H PRN ORAL Mild Pain (Pain Scale 1-3) 05/06/19 11:00 05/06/19 21:00 Acetaminophen/ Hydrocodone Bitart ([place] 5/325) 1 tab Q6H PRN ORAL Severe Pain (Pain Scale 7-10) 05/01/19 19:16 05/08/19 19:15 05/06/19 04:59 Acetaminophen/ Hydrocodone Bitart ([place] 7.5/325) 1 tab Q1H PRN ORAL Moderate Pain (Pain Scale 4-6) 05/06/19 11:00 05/06/19 21:00 Al Hydroxide/Mg Hydroxide (Mylanta) 15 ml Q1H PRN ORAL gi upset 05/06/19 11:00 05/06/19 21:00 Albuterol/ Ipratropium (Albuterol/ Ipratropium) 3 ml Q4H PRN HHN Shortness of Breath 05/01/19 19:16 05/06/19 19:15 05/06/19 05:41 Apixaban (Eliquis) 5 mg BID ORAL 05/02/19 09:00 05/09/19 08:59 05/06/19 09:43 Atropine Sulfate (Atropine 0.4mg/ ml) 0.5 mg Q5M PRN IVP HR<40 05/06/19 11:00 05/06/19 21:00 Carvedilol (Coreg) 6.25 mg EVERY 12 HOURS ORAL 05/01/19 21:00 05/09/19 08:59 05/06/19 09:43 Clonidine HCl (Catapres Tab) 0.1 mg Q4H PRN ORAL sbp more than 160 05/01/19 19:14 05/31/19 19:13 Clotrimazole (Lotrimin) 1 applic THREE TIMES A DAY TOPIC 05/02/19 09:00 05/20/19 12:59 05/06/19 09:53 Dextrose (Dextrose 50%) 25 ml Q30M PRN IV Hypoglycemia 05/01/19 19:30 05/09/19 15:29 Dextrose (Dextrose 50%) 50 ml Q30M PRN IV Hypoglycemia 05/01/19 19:30 05/09/19 07:29 Diphenhydramine HCl (Benadryl) 25 mg Q15M PRN IVP Itching 05/06/19 11:00 05/06/19 21:00 Docusate Sodium (Colace) 100 mg TWICE A DAY ORAL 05/02/19 09:00 05/31/19 08:59 05/06/19 09:43 Escitalopram Oxalate (Lexapro) 10 mg DAILY ORAL 05/02/19 09:00 05/27/19 08:59 05/06/19 09:43 Fentanyl Citrate (Sublimaze 100 mcg/2 mL) 25 mcg Q10M PRN IV Moderate Pain (Pain Scale 4-6) 05/06/19 11:00 05/06/19 21:00 Hydralazine HCl (Apresoline) 5 mg Q30M PRN IV SBP>160 / DBP>90 05/06/19 11:00 05/06/19 21:00 Hydromorphone HCl (Dilaudid) 0.5 mg Q15M PRN IVP Severe Pain (Pain Scale 7-10) 05/06/19 11:00 05/06/19 21:00 Insulin Aspart (NovoLOG) BEFORE MEALS AND HS SUBQ 05/01/19 21:00 05/09/19 13:29 05/05/19 06:29 Insulin Aspart (NovoLOG) 14 units NOVOTIAC SUBQ 05/02/19 16:50 05/10/19 07:29 05/05/19 06:30 Insulin Detemir (Levemir) 24 units DAILY SUBQ 05/05/19 09:00 05/09/19 20:59 05/06/19 10:03 Levothyroxine Sodium (Synthroid) 75 mcg ACBREAKFAST ORAL 05/02/19 06:30 05/27/19 06:29 05/06/19 06:29 Levothyroxine Sodium (Synthroid) 100 mcg ACBREAKFAST ORAL 05/02/19 06:30 05/09/19 06:29 05/06/19 06:29 Methylprednisolone Sodium Succinate (Solu-MEDROL) 30 mg DAILY IVP 05/04/19 09:00 05/30/19 08:59 05/06/19 09:42 Nitroglycerin (Ntg) 0.4 mg Q5M X 3 DOSES PRN SL Prn Chest Pain 05/01/19 19:00 05/08/19 21:29 Ondansetron HCl (Zofran) 4 mg Q6H PRN IVP Nausea & Vomiting 05/01/19 19:16 05/31/19 19:15 Oxycodone/ Acetaminophen (Percocet 5-325) 1 tab Q1H PRN ORAL Severe Pain (Pain Scale 7-10) 05/06/19 11:00 05/06/19 21:00 Oxymetazoline HCl (Afrin Nasal [place]) 1 spray Q6H PRN NASAL nasal congestion 05/01/19 19:16 05/31/19 19:15 Polyethylene Glycol (Miralax) 17 gm BEDTIME ORAL 05/01/19 21:00 05/31/19 20:59 05/01/19 20:37 Promethazine HCl/ Codeine (Phenergan with Codeine) 5 ml Q6H PRN ORAL cough 05/01/19 19:17 05/31/19 19:16 05/04/19 21:01 Tamsulosin HCl (Flomax) 0.4 mg BEDTIME ORAL 05/01/19 21:00 05/09/19 20:59 05/05/19 21:27 Goldie Obrien MD May 06, 2019 14:46
--- NOTE | 2019-05-06 15:06 | Infectious Diseases Prog Note ---
Assessment/Plan Assessment/Plan Assessment: Acute hypoxic respiratory failure , back on bipap COPD exacerbation CHF exacerbation PNA -04/29 CXRLThere is bilateral interstitial congestion again demonstrated, appearing unchanged. No focal airspace consolidation. There is some atelectasis at the left lung base. -04/27 CXR: Borderline cardiomegaly. Questionable mild interstitial congestion , new or increased from previous study if real. -04/21 CTA chest:Somewhat limited exam, due to motion artifact. No definite evidence of pulmonary embolus or other acute thoracic vascular pathology. Borderline cardiomegaly. Diffuse bilateral pulmonary parenchymal groundglass opacity. Interspersed small bullae digestive this is due to COPD changes, but could also indicate a component of pulmonary edema. Considerable consolidation in the right lower lobe, likely pneumonia. Less extensive consolidation and atelectasis is seen at the left lung base. Pacemaker, degenerative spondylosis incidentally noted sp cx normal resp michael -04/19 CXR: Mild pulmonary vascular congestion -04/16 CXR: No acute disease -04/13 CXR: Suspected mild pulmonary vascular congestion. Correlate clinically -04/08 CXR: Mild pulmonary vascular congestion suspected Afebrile Leukocytosis,(pn steroids) KAYLAN, improving Hyperglycemia COPD CAD CHF prostate cancer s/p PPM former smoker Plan: - monitor pt off of AB RX - 05/05 Sp Ertapenem # 7/7 - 05/03 sp Vancomycin # 5 -04/28 SP Zosyn #8 -04/15 SP Levaquin #7 -04/08 SP Ceftriaxone x1, Azithromycin x1 -Monitor CBC/CMP, temperatures -aspiration precautions Thank you for this consultation. Will continue to follow along with you. Subjective Allergies: Coded Allergies: No Known Allergies (Unverified , 10/24/16) Subjective afebrile no acute event Objective Vital Signs Last 24 Hour Vital Signs Date Time Temp Pulse Resp B/P (MAP) Pulse Ox O2 Delivery O2 Flow Rate FiO2 05/06/19 13:25 97.3 74 20 119/77 (91) 90 05/06/19 12:25 71 20 138/89 95 Nasal Cannula 3 71 05/06/19 12:15 97.7 73 18 124/86 95 Nasal Cannula 3 73 05/06/19 12:10 72 20 135/87 95 Nasal Cannula 3 72 05/06/19 12:00 71 17 133/90 92 Simple Mask 6 71 05/06/19 11:56 84 18 94 05/06/19 11:55 72 15 134/96 92 Simple Mask 6 72 05/06/19 11:55 72 16 94 05/06/19 11:50 73 19 149/99 92 Simple Mask 6 73 05/06/19 11:45 97.5 72 22 140/102 92 Simple Mask 6 72 05/06/19 09:43 75 127/83 05/06/19 08:00 97.5 75 20 127/83 (98) 93 05/06/19 05:41 82 20 96 Nasal Cannula 3.0 32 81 20 95 05/06/19 00:00 97.8 91 20 126/72 (90) 90 05/05/19 21:57 81 20 96 Nasal Cannula 3.0 32 78 20 94 05/05/19 21:27 75 122/85 05/05/19 21:00 Nasal Cannula 2.0 05/05/19 20:00 97.3 75 20 122/85 (97) 92 05/05/19 20:00 94 Nasal Cannula 3.0 32 05/05/19 16:00 98.1 80 20 130/70 (90) 91 Height (Feet): 6 Height (Inches): 0.00 Weight (Pounds): 212 HEENT: anicteric Respiratory/Chest: no respiratory distress Cardiovascular: regular rhythm Abdomen: no organomegaly Microbiology Date/Time Source Procedure Growth Status 05/04/19 12:30 Indwelling Cath Urine Culture - Preliminary Yeast Species Resulted Laboratory Tests Test 05/06/19 04:50 White Blood Count 11.9 K/UL (4.8-10.8) H Red Blood Count 4.11 M/UL (4.70-6.10) L Hemoglobin 11.9 G/DL (14.2-18.0) L Hematocrit 38.1 % (42.0-52.0) L Mean Corpuscular Volume 93 FL (80-99) Mean Corpuscular Hemoglobin 29.0 PG (27.0-31.0) Mean Corpuscular Hemoglobin Concent 31.3 G/DL (32.0-36.0) L Red Cell Distribution Width 15.7 % (11.6-14.8) H Platelet Count 354 K/UL (150-450) Mean Platelet Volume 5.7 FL (6.5-10.1) L Neutrophils (%) (Auto) 64.5 % (45.0-75.0) Lymphocytes (%) (Auto) 25.7 % (20.0-45.0) Monocytes (%) (Auto) 6.5 % (1.0-10.0) Eosinophils (%) (Auto) 1.5 % (0.0-3.0) Basophils (%) (Auto) 1.9 % (0.0-2.0) Sodium Level 143 MMOL/L (136-145) Potassium Level 4.3 MMOL/L (3.5-5.1) Chloride Level 104 MMOL/L (98-107) Carbon Dioxide Level 34 MMOL/L (21-32) H Anion Gap 5 mmol/L (5-15) Blood Urea Nitrogen 27 mg/dL (7-18) H Creatinine 1.1 MG/DL (0.55-1.30) Estimat Glomerular Filtration Rate > 60 mL/min (>60) Glucose Level 127 MG/DL (74-106) H Calcium Level 9.2 MG/DL (8.5-10.1) Current Medications Medications (Trade) Dose Ordered Sig/Dejon Route PRN Reason Start Time Stop Time Status Last Admin Dose Admin Acetaminophen (Tylenol) 650 mg Q4H PRN ORAL fever 05/01/19 19:14 05/31/19 19:13 05/02/19 01:18 Acetaminophen/ Hydrocodone Bitart ([place] 5/325) 1 tab Q1H PRN ORAL Mild Pain (Pain Scale 1-3) 05/06/19 11:00 05/06/19 21:00 Acetaminophen/ Hydrocodone Bitart ([place] 5/325) 1 tab Q6H PRN ORAL Severe Pain (Pain Scale 7-10) 05/01/19 19:16 05/08/19 19:15 05/06/19 15:01 Acetaminophen/ Hydrocodone Bitart ([place] 7.5/325) 1 tab Q1H PRN ORAL Moderate Pain (Pain Scale 4-6) 05/06/19 11:00 05/06/19 21:00 Al Hydroxide/Mg Hydroxide (Mylanta) 15 ml Q1H PRN ORAL gi upset 05/06/19 11:00 05/06/19 21:00 Albuterol/ Ipratropium (Albuterol/ Ipratropium) 3 ml Q4H PRN HHN Shortness of Breath 05/01/19 19:16 05/06/19 19:15 05/06/19 05:41 Apixaban (Eliquis) 5 mg BID ORAL 05/02/19 09:00 05/09/19 08:59 05/06/19 09:43 Atropine Sulfate (Atropine 0.4mg/ ml) 0.5 mg Q5M PRN IVP HR<40 05/06/19 11:00 05/06/19 21:00 Carvedilol (Coreg) 6.25 mg EVERY 12 HOURS ORAL 05/01/19 21:00 05/09/19 08:59 05/06/19 09:43 Clonidine HCl (Catapres Tab) 0.1 mg Q4H PRN ORAL sbp more than 160 05/01/19 19:14 05/31/19 19:13 Clotrimazole (Lotrimin) 1 applic THREE TIMES A DAY TOPIC 05/02/19 09:00 05/20/19 12:59 05/06/19 09:53 Dextrose (Dextrose 50%) 25 ml Q30M PRN IV Hypoglycemia 05/01/19 19:30 05/09/19 15:29 Dextrose (Dextrose 50%) 50 ml Q30M PRN IV Hypoglycemia 05/01/19 19:30 05/09/19 07:29 Diphenhydramine HCl (Benadryl) 25 mg Q15M PRN IVP Itching 05/06/19 11:00 05/06/19 21:00 Docusate Sodium (Colace) 100 mg TWICE A DAY ORAL 05/02/19 09:00 05/31/19 08:59 05/06/19 09:43 Escitalopram Oxalate (Lexapro) 10 mg DAILY ORAL 05/02/19 09:00 05/27/19 08:59 05/06/19 09:43 Fentanyl Citrate (Sublimaze 100 mcg/2 mL) 25 mcg Q10M PRN IV Moderate Pain (Pain Scale 4-6) 05/06/19 11:00 05/06/19 21:00 Hydralazine HCl (Apresoline) 5 mg Q30M PRN IV SBP>160 / DBP>90 05/06/19 11:00 05/06/19 21:00 Hydromorphone HCl (Dilaudid) 0.5 mg Q15M PRN IVP Severe Pain (Pain Scale 7-10) 05/06/19 11:00 05/06/19 21:00 Insulin Aspart (NovoLOG) BEFORE MEALS AND HS SUBQ 05/01/19 21:00 05/09/19 13:29 05/05/19 06:29 Insulin Aspart (NovoLOG) 14 units NOVOTIAC SUBQ 05/02/19 16:50 05/10/19 07:29 05/05/19 06:30 Insulin Detemir (Levemir) 24 units DAILY SUBQ 05/05/19 09:00 05/09/19 20:59 05/06/19 10:03 Levothyroxine Sodium (Synthroid) 75 mcg ACBREAKFAST ORAL 05/02/19 06:30 05/27/19 06:29 05/06/19 06:29 Levothyroxine Sodium (Synthroid) 100 mcg ACBREAKFAST ORAL 05/02/19 06:30 05/09/19 06:29 05/06/19 06:29 Methylprednisolone Sodium Succinate (Solu-MEDROL) 30 mg DAILY IVP 05/04/19 09:00 05/30/19 08:59 05/06/19 09:42 Nitroglycerin (Ntg) 0.4 mg Q5M X 3 DOSES PRN SL Prn Chest Pain 05/01/19 19:00 05/08/19 21:29 Ondansetron HCl (Zofran) 4 mg Q6H PRN IVP Nausea & Vomiting 05/01/19 19:16 05/31/19 19:15 Oxycodone/ Acetaminophen (Percocet 5-325) 1 tab Q1H PRN ORAL Severe Pain (Pain Scale 7-10) 05/06/19 11:00 05/06/19 21:00 Oxymetazoline HCl (Afrin Nasal [place]) 1 spray Q6H PRN NASAL nasal congestion 05/01/19 19:16 05/31/19 19:15 Polyethylene Glycol (Miralax) 17 gm BEDTIME ORAL 05/01/19 21:00 05/31/19 20:59 05/01/19 20:37 Promethazine HCl/ Codeine (Phenergan with Codeine) 5 ml Q6H PRN ORAL cough 05/01/19 19:17 05/31/19 19:16 05/04/19 21:01 Tamsulosin HCl (Flomax) 0.4 mg BEDTIME ORAL 05/01/19 21:00 05/09/19 20:59 05/05/19 21:27 Robert Canela MD May 06, 2019 15:06
--- NOTE | 2019-05-06 16:30 | Procedure Note ---
DATE OF PROCEDURE: 05/06/2019 SURGEON: Christiano La M.D. PROCEDURE: Upper endoscopy with biopsy. ANESTHESIOLOGIST: Gilberto Laguerre M.D. INSTRUMENT: Olympus adult flexible upper endoscope. INDICATION: Anemia and abdominal pain. REASON FOR PROCEDURE: The procedure, risks, benefits, and possible consequences, including hemorrhage, aspiration, perforation and infection, and alternative treatments, were explained to the patient/legal guardian by Dr. Christiano La and the patient/legal guardian understood and accepted these risks. PROCEDURE IN DETAIL: After informed consent was obtained and the patient was adequately sedated, Olympus upper endoscope was advanced from the mouth into the second portion of duodenum and retroflexion was performed in the stomach. The patient has evidence of diffuse gastritis. Random biopsy from antrum was obtained to rule out H. pylori infection. Otherwise, the rest of the upper endoscopic examination grossly looked within normal limits. There was no evidence of any esophageal ulceration, gastric ulceration, or any mass. The patient tolerated the procedure well without any complication. SUMMARY OF FINDINGS: Gastritis status post biopsy, otherwise normal upper endoscopic examination. RECOMMENDATIONS: Follow up biopsy results and treat accordingly. I want to thank, Dr. Jewel Giraldo, for this kind referral. Christiano La M.D. DR: ONIEL JOB#: [id number] CC: Jewel Giraldo M.D.; Fax#: [phone]
--- NOTE | 2019-05-06 18:35 | Internal Med Progress Note ---
Subjective Date of Service: May 06, 2019 Physician Name Idris Lugo Attending Physician Jewle Giraldo MD Current Medications Medications (Trade) Dose Ordered Sig/Dejon Route PRN Reason Start Time Stop Time Status Last Admin Dose Admin Acetaminophen (Tylenol) 650 mg Q4H PRN ORAL fever 05/01/19 19:14 05/31/19 19:13 05/02/19 01:18 Acetaminophen/ Hydrocodone Bitart ([place] 5/325) 1 tab Q1H PRN ORAL Mild Pain (Pain Scale 1-3) 05/06/19 11:00 05/06/19 21:00 Acetaminophen/ Hydrocodone Bitart ([place] 5/325) 1 tab Q6H PRN ORAL Severe Pain (Pain Scale 7-10) 05/01/19 19:16 05/08/19 19:15 05/06/19 15:01 Acetaminophen/ Hydrocodone Bitart ([place] 7.5/325) 1 tab Q1H PRN ORAL Moderate Pain (Pain Scale 4-6) 05/06/19 11:00 05/06/19 21:00 Al Hydroxide/Mg Hydroxide (Mylanta) 15 ml Q1H PRN ORAL gi upset 05/06/19 11:00 05/06/19 21:00 Albuterol/ Ipratropium (Albuterol/ Ipratropium) 3 ml Q4H PRN HHN Shortness of Breath 05/01/19 19:16 05/06/19 19:15 05/06/19 05:41 Apixaban (Eliquis) 5 mg BID ORAL 05/02/19 09:00 05/09/19 08:59 05/06/19 17:55 Atropine Sulfate (Atropine 0.4mg/ ml) 0.5 mg Q5M PRN IVP HR<40 05/06/19 11:00 05/06/19 21:00 Carvedilol (Coreg) 6.25 mg EVERY 12 HOURS ORAL 05/01/19 21:00 05/09/19 08:59 05/06/19 09:43 Clonidine HCl (Catapres Tab) 0.1 mg Q4H PRN ORAL sbp more than 160 05/01/19 19:14 05/31/19 19:13 Clotrimazole (Lotrimin) 1 applic THREE TIMES A DAY TOPIC 05/02/19 09:00 05/20/19 12:59 05/06/19 09:53 Dextrose (Dextrose 50%) 25 ml Q30M PRN IV Hypoglycemia 05/01/19 19:30 05/09/19 15:29 Dextrose (Dextrose 50%) 50 ml Q30M PRN IV Hypoglycemia 05/01/19 19:30 05/09/19 07:29 Diphenhydramine HCl (Benadryl) 25 mg Q15M PRN IVP Itching 05/06/19 11:00 05/06/19 21:00 Docusate Sodium (Colace) 100 mg TWICE A DAY ORAL 05/02/19 09:00 05/31/19 08:59 05/06/19 17:54 Escitalopram Oxalate (Lexapro) 10 mg DAILY ORAL 05/02/19 09:00 05/27/19 08:59 05/06/19 09:43 Fentanyl Citrate (Sublimaze 100 mcg/2 mL) 25 mcg Q10M PRN IV Moderate Pain (Pain Scale 4-6) 05/06/19 11:00 05/06/19 21:00 Hydralazine HCl (Apresoline) 5 mg Q30M PRN IV SBP>160 / DBP>90 05/06/19 11:00 05/06/19 21:00 Hydromorphone HCl (Dilaudid) 0.5 mg Q15M PRN IVP Severe Pain (Pain Scale 7-10) 05/06/19 11:00 05/06/19 21:00 Insulin Aspart (NovoLOG) BEFORE MEALS AND HS SUBQ 05/01/19 21:00 05/09/19 13:29 05/06/19 17:54 Insulin Aspart (NovoLOG) 14 units NOVOTIAC SUBQ 05/02/19 16:50 05/10/19 07:29 05/05/19 06:30 Insulin Detemir (Levemir) 24 units DAILY SUBQ 05/05/19 09:00 05/09/19 20:59 05/06/19 10:03 Levothyroxine Sodium (Synthroid) 75 mcg ACBREAKFAST ORAL 05/02/19 06:30 05/27/19 06:29 05/06/19 06:29 Levothyroxine Sodium (Synthroid) 100 mcg ACBREAKFAST ORAL 05/02/19 06:30 05/09/19 06:29 05/06/19 06:29 Methylprednisolone Sodium Succinate (Solu-MEDROL) 30 mg DAILY IVP 05/04/19 09:00 05/30/19 08:59 05/06/19 09:42 Nitroglycerin (Ntg) 0.4 mg Q5M X 3 DOSES PRN SL Prn Chest Pain 05/01/19 19:00 05/08/19 21:29 Ondansetron HCl (Zofran) 4 mg Q6H PRN IVP Nausea & Vomiting 05/01/19 19:16 05/31/19 19:15 Oxycodone/ Acetaminophen (Percocet 5-325) 1 tab Q1H PRN ORAL Severe Pain (Pain Scale 7-10) 05/06/19 11:00 05/06/19 21:00 Oxymetazoline HCl (Afrin Nasal [place]) 1 spray Q6H PRN NASAL nasal congestion 05/01/19 19:16 05/31/19 19:15 Polyethylene Glycol (Miralax) 17 gm BEDTIME ORAL 05/01/19 21:00 05/31/19 20:59 05/01/19 20:37 Promethazine HCl/ Codeine (Phenergan with Codeine) 5 ml Q6H PRN ORAL cough 05/01/19 19:17 05/31/19 19:16 05/04/19 21:01 Tamsulosin HCl (Flomax) 0.4 mg BEDTIME ORAL 05/01/19 21:00 05/09/19 20:59 05/05/19 21:27 Allergies: Coded Allergies: No Known Allergies (Unverified , 10/24/16) ROS Limited/Unobtainable: No Constitutional: Reports: no symptoms HEENT: Reports: no symptoms Cardiovascular: Reports: no symptoms Respiratory: Reports: no symptoms Gastrointestinal/Abdominal: Reports: no symptoms Genitourinary: Reports: no symptoms Neurologic/Psychiatric: Reports: no symptoms Subjective 73 YO M admitted with COPD exacerbation. Now respiratory failure and pneumonia. Cover for Mounika Mac-DR Giraldo. S/P endoscopy 05/06/19 Objective Last Vital Signs Date Time Temp Pulse Resp B/P (MAP) Pulse Ox O2 Delivery O2 Flow Rate FiO2 05/06/19 16:00 98.0 74 20 136/73 (94) 94 05/06/19 12:25 Nasal Cannula 3 05/06/19 05:41 32 Laboratory Tests Test 05/06/19 04:50 White Blood Count 11.9 K/UL (4.8-10.8) H Red Blood Count 4.11 M/UL (4.70-6.10) L Hemoglobin 11.9 G/DL (14.2-18.0) L Hematocrit 38.1 % (42.0-52.0) L Mean Corpuscular Volume 93 FL (80-99) Mean Corpuscular Hemoglobin 29.0 PG (27.0-31.0) Mean Corpuscular Hemoglobin Concent 31.3 G/DL (32.0-36.0) L Red Cell Distribution Width 15.7 % (11.6-14.8) H Platelet Count 354 K/UL (150-450) Mean Platelet Volume 5.7 FL (6.5-10.1) L Neutrophils (%) (Auto) 64.5 % (45.0-75.0) Lymphocytes (%) (Auto) 25.7 % (20.0-45.0) Monocytes (%) (Auto) 6.5 % (1.0-10.0) Eosinophils (%) (Auto) 1.5 % (0.0-3.0) Basophils (%) (Auto) 1.9 % (0.0-2.0) Sodium Level 143 MMOL/L (136-145) Potassium Level 4.3 MMOL/L (3.5-5.1) Chloride Level 104 MMOL/L (98-107) Carbon Dioxide Level 34 MMOL/L (21-32) H Anion Gap 5 mmol/L (5-15) Blood Urea Nitrogen 27 mg/dL (7-18) H Creatinine 1.1 MG/DL (0.55-1.30) Estimat Glomerular Filtration Rate > 60 mL/min (>60) Glucose Level 127 MG/DL (74-106) H Calcium Level 9.2 MG/DL (8.5-10.1) Microbiology Date/Time Source Procedure Growth Status 05/04/19 12:30 Indwelling Cath Urine Culture - Preliminary Yeast Species Resulted Intake and Output 05/05/19 05/06/19 19:00 07:00 Intake Total 600 ml Output Total 2600 ml Balance -2000 ml Intake Oral 600 ml Output Urine Total 2600 ml # Bowel Movements 2 Objective PHYSICAL EXAMINATION: GENERAL: The patient is awake, responsive, no acute distress. HEAD AND NECK: Pupils are equal and reactive to light. Extraocular muscles intact. Neck was supple. No JVD. LUNGS: BIPAP;The patient has expiratory wheezes noted. Tachypneic. No rhonchi was noted. HEART: S1, S2. Irregular. No murmur. The patient has a pacemaker in the left-sided chest wall. ABDOMEN: Soft, nondistended, nontender. Mildly obese. EXTREMITIES: No cyanosis, clubbing, edema. NEUROLOGIC: Cranial nerves II through XII grossly normal. Motor is 5/5 in all extremities. Gait is intact. GENITOURINARY: It was noted the patient has a [place] catheter. RECTAL: Refused and deferred. PSYCHIATRIC: Mood and affect is intact. Assessment/Plan Assessment/Plan ASSESSMENT: 1. Acute hypoxemic respiratory failure, most likely secondary to acute COPD exacerbation. 2. Acute COPD exacerbation. 3. Pneumonia. 4. Sick sinus syndrome status post pacemaker. 5. Diabetes type 2. 6. Prostate cancer. 7. Hyperkalemia. 8. Insulin induced hyperglycemia. 9. Prostate enlargement. 10. Leukocytosis 11. RBBB 12 Gastritis PLAN: 1. Med/Surg 2. D/C Solu-Medrol IV Per Pulmonary consult=Dr. Obrien. 3. Endocrinology=Dr To. Monitor blood glucose level closely. 4. antibiotic=S/P ertapenem and vanco. ID=Dr Villa 5. Code status is Full Code. DVT prophylaxis, he is on Eliquis. 6. S/P endoscopy 05/06/19 Discharge planning Idris Lugo MD May 06, 2019 18:35
--- NOTE | 2019-05-06 19:15 | Progress Note ---
DATE: 05/06/2019 SUBJECTIVE: The patient is in bed, no acute distress, irritable. He had a procedure today, EGD. The patient is irritable and has anxiety. Sleep and appetite is adequate. MENTAL STATUS EXAMINATION: The patient is alert and oriented times self, place, and situation. Mood is irritable. Affect is constricted. Congruent with mood. Thought process is concrete. Thought content, no suicidal or homicidal ideation. ASSESSMENT: Stable. PLAN: 1. We will continue current medications. 2. Provide the patient with reality orientation and supportive therapy. Ottoniel Hillman M.D. DR: Dawood JOB#: [id number] CC:
[2019-05-06] MEDS: Tamsulosin 0.4mg cap ORAL SCH (21:11)
[2019-05-06] MEDS: Miralax 17gm pkt ORAL SCH (21:11)
[2019-05-07] VITALS: BP 112/80
[2019-05-07 04:00] VITALS: BP 118/82
[2019-05-07] MEDS: NovoLOG Insulin Flexpen SUBQ SCH ×7 (06:27→21:00)
--- NOTE | 2019-05-07 06:28 | General Progress Note ---
Assessment/Plan Problem List: (1) COPD exacerbation ICD Codes: J44.1 - Chronic obstructive pulmonary disease with (acute) exacerbation SNOMED: 012755270 (2) Respiratory failure with hypoxia ICD Codes: J96.91 - Respiratory failure, unspecified with hypoxia SNOMED: 48790891836074000 (3) Diabetes mellitus ICD Codes: E11.9 - Type 2 diabetes mellitus without complications SNOMED: 59222361 (4) Pacemaker ICD Codes: Z95.0 - Presence of cardiac pacemaker SNOMED: 925094747 (5) Prostate cancer ICD Codes: C61 - Malignant neoplasm of prostate SNOMED: 441445792 (6) Hypothyroid ICD Codes: E03.9 - Hypothyroidism, unspecified SNOMED: 78195198 Status: unchanged Assessment/Plan: continue Levemir 24 units qam reduce Novolog 14 to 8 units ac tid continue NISS ac / hs continue Levothyroxine 175 mcg qam repeat thyroid function in 3 weeks Subjective Allergies: Coded Allergies: No Known Allergies (Unverified , 10/24/16) Subjective events noted refused Novolog yesterday glucose stayed stable on IVSM 30 mg daily Item Value Date Time Bedside Blood Glucose 134 mg/dl H 05/06/19 2100 Bedside Blood Glucose 199 mg/dl H 05/06/19 1754 Bedside Blood Glucose 137 mg/dl H 05/06/19 1003 Bedside Blood Glucose 136 mg/dl H 05/06/19 0626 Objective Last 24 Hour Vital Signs Date Time Temp Pulse Resp B/P (MAP) Pulse Ox O2 Delivery O2 Flow Rate FiO2 05/07/19 04:00 97.7 73 22 118/82 (94) 95 05/07/19 00:00 98.0 72 21 112/80 (91) 94 05/06/19 21:11 93 155/85 05/06/19 21:00 Nasal Cannula 2.0 05/06/19 20:13 75 20 95 Room Air 21 73 20 91 05/06/19 20:12 90 Room Air 21 05/06/19 20:00 98.1 71 22 155/85 (108) 94 05/06/19 16:00 98.0 74 20 136/73 (94) 94 05/06/19 13:25 97.3 74 20 119/77 (91) 90 05/06/19 12:25 71 20 138/89 95 Nasal Cannula 3 71 05/06/19 12:15 97.7 73 18 124/86 95 Nasal Cannula 3 73 05/06/19 12:10 72 20 135/87 95 Nasal Cannula 3 72 05/06/19 12:00 71 17 133/90 92 Simple Mask 6 71 05/06/19 11:56 84 18 94 05/06/19 11:55 72 15 134/96 92 Simple Mask 6 72 05/06/19 11:55 72 16 94 05/06/19 11:50 73 19 149/99 92 Simple Mask 6 73 05/06/19 11:45 97.5 72 22 140/102 92 Simple Mask 6 72 05/06/19 09:43 75 127/83 05/06/19 09:00 Nasal Cannula 2.0 05/06/19 08:00 97.5 75 20 127/83 (98) 93 Intake and Output 05/06/19 05/07/19 19:00 07:00 Intake Total 100 ml 350 ml Output Total 1400 ml 2000 ml Balance -1300 ml -1650 ml Intake Oral 350 ml IV Total 100 ml Output Urine Total 1400 ml 2000 ml # Bowel Movements 5 1 Laboratory Tests 05/07/19 05:05: White Blood Count [Pending], Red Blood Count [Pending], Hemoglobin [Pending], Hematocrit [Pending], Mean Corpuscular Volume [Pending], Mean Corpuscular Hemoglobin [Pending], Mean Corpuscular Hemoglobin Concent [Pending], Red Cell Distribution Width [Pending], Platelet Count [Pending], Mean Platelet Volume [ Pending], Neutrophils (%) (Auto) [Pending], Lymphocytes (%) (Auto) [Pending], Monocytes (%) (Auto) [Pending], Eosinophils (%) (Auto) [Pending], Basophils (%) (Auto) [Pending], Sodium Level [Pending], Potassium Level [Pending], Chloride Level [Pending], Carbon Dioxide Level [Pending], Blood Urea Nitrogen [Pending], Creatinine [Pending], Estimat Glomerular Filtration Rate [Pending], Glucose Level [Pending], Calcium Level [Pending] Height (Feet): 6 Height (Inches): 0.00 Weight (Pounds): 212 Neck: normal alignment Cardiovascular: normal rate Respiratory/Chest: decreased breath sounds Abdomen: normal bowel sounds Pelvis: normal external exam Objective Current Medications Medications (Trade) Dose Ordered Sig/Dejon Route PRN Reason Start Time Stop Time Status Last Admin Dose Admin Acetaminophen (Tylenol) 650 mg Q4H PRN ORAL fever 05/01/19 19:14 05/31/19 19:13 05/02/19 01:18 Acetaminophen/ Hydrocodone Bitart ([place] 5/325) 1 tab Q6H PRN ORAL Severe Pain (Pain Scale 7-10) 05/01/19 19:16 05/08/19 19:15 05/06/19 15:01 Apixaban (Eliquis) 5 mg BID ORAL 05/02/19 09:00 05/09/19 08:59 05/06/19 17:55 Carvedilol (Coreg) 6.25 mg EVERY 12 HOURS ORAL 05/01/19 21:00 05/09/19 08:59 05/06/19 21:11 Clonidine HCl (Catapres Tab) 0.1 mg Q4H PRN ORAL sbp more than 160 05/01/19 19:14 05/31/19 19:13 Clotrimazole (Lotrimin) 1 applic THREE TIMES A DAY TOPIC 05/02/19 09:00 05/20/19 12:59 05/06/19 09:53 Dextrose (Dextrose 50%) 25 ml Q30M PRN IV Hypoglycemia 05/01/19 19:30 05/09/19 15:29 Dextrose (Dextrose 50%) 50 ml Q30M PRN IV Hypoglycemia 05/01/19 19:30 05/09/19 07:29 Docusate Sodium (Colace) 100 mg TWICE A DAY ORAL 05/02/19 09:00 05/31/19 08:59 05/06/19 17:54 Escitalopram Oxalate (Lexapro) 10 mg DAILY ORAL 05/02/19 09:00 05/27/19 08:59 05/06/19 09:43 Insulin Aspart (NovoLOG) BEFORE MEALS AND HS SUBQ 05/01/19 21:00 05/09/19 13:29 05/06/19 17:54 Insulin Aspart (NovoLOG) 14 units NOVOTIAC SUBQ 05/02/19 16:50 05/10/19 07:29 05/05/19 06:30 Insulin Detemir (Levemir) 24 units DAILY SUBQ 05/05/19 09:00 05/09/19 20:59 05/06/19 10:03 Levothyroxine Sodium (Synthroid) 75 mcg ACBREAKFAST ORAL 05/02/19 06:30 05/27/19 06:29 05/06/19 06:29 Levothyroxine Sodium (Synthroid) 100 mcg ACBREAKFAST ORAL 05/02/19 06:30 05/09/19 06:29 05/06/19 06:29 Methylprednisolone Sodium Succinate (Solu-MEDROL) 30 mg DAILY IVP 05/04/19 09:00 05/30/19 08:59 05/06/19 09:42 Nitroglycerin (Ntg) 0.4 mg Q5M X 3 DOSES PRN SL Prn Chest Pain 05/01/19 19:00 05/08/19 21:29 Ondansetron HCl (Zofran) 4 mg Q6H PRN IVP Nausea & Vomiting 05/01/19 19:16 05/31/19 19:15 Oxymetazoline HCl (Afrin Nasal [place]) 1 spray Q6H PRN NASAL nasal congestion 05/01/19 19:16 05/31/19 19:15 Pantoprazole (Protonix) 40 mg EVERY 12 HOURS ORAL 05/06/19 21:00 06/05/19 20:59 05/06/19 21:11 Polyethylene Glycol (Miralax) 17 gm BEDTIME ORAL 05/01/19 21:00 05/31/19 20:59 05/06/19 21:11 Promethazine HCl/ Codeine (Phenergan with Codeine) 5 ml Q6H PRN ORAL cough 05/01/19 19:17 05/31/19 19:16 05/04/19 21:01 Tamsulosin HCl (Flomax) 0.4 mg BEDTIME ORAL 05/01/19 21:00 05/09/19 20:59 05/06/19 21:11 Geovanni To MD May 07, 2019 06:28
[2019-05-07 06:44] LABS: BASOPHILS % (AUTO) 1.9 % (0.0-2.0); HEMATOCRIT 39.5 % (42.0-52.0); HEMOGLOBIN 12.9 G/DL (14.2-18.0); LYMPHOCYTES % (AUTO) 23.3 % (20.0-45.0); MEAN CORPUSCULAR VOLUME 92 FL (80-99); MONOCYTES % (AUTO) 6.9 % (1.0-10.0); PLATELET COUNT 383 K/UL (150-450); RED BLOOD COUNT 4.28 M/UL (4.70-6.10); RED CELL DISTRIBUTION WIDTH 15.7 % (11.6-14.8); WHITE BLOOD COUNT 13.3 K/UL (4.8-10.8)
[2019-05-07 06:48] LABS: ANION GAP 11 mmol/L (5-15); BLOOD UREA NITROGEN 31 mg/dL (7-18); CALCIUM 9.2 MG/DL (8.5-10.1); CARBON DIOXIDE 27 MMOL/L (21-32); CHLORIDE 104 MMOL/L (98-107); POTASSIUM 4.4 MMOL/L (3.5-5.1); SODIUM 142 MMOL/L (136-145)
[2019-05-07 08:00] VITALS: BP 126/89
--- NOTE | 2019-05-07 08:46 | General Progress Note ---
Assessment/Plan Status: unchanged Assessment/Plan: Assessment/Plan Problems: (1) Diabetes mellitus ICD Codes: E11.9 - Type 2 diabetes mellitus without complications SNOMED: 05424452 (2) Anemia ICD Codes: D64.9 - Anemia, unspecified Assessment/Plan This is a 73-year-old male with COPD exacerbation and new-onset diabetes given hemoglobin A1c is high. s/p EGD stable H&H fu biopsy results needs out patient fu fo colonoscopy Subjective ROS Limited/Unobtainable: Yes Allergies: Coded Allergies: No Known Allergies (Unverified , 10/24/16) Objective Last 24 Hour Vital Signs Date Time Temp Pulse Resp B/P (MAP) Pulse Ox O2 Delivery O2 Flow Rate FiO2 05/07/19 04:00 97.7 73 22 118/82 (94) 95 05/07/19 00:00 98.0 72 21 112/80 (91) 94 05/06/19 21:11 93 155/85 05/06/19 21:00 Nasal Cannula 2.0 05/06/19 20:13 75 20 95 Room Air 21 73 20 91 05/06/19 20:12 90 Room Air 21 05/06/19 20:00 98.1 71 22 155/85 (108) 94 05/06/19 16:00 98.0 74 20 136/73 (94) 94 05/06/19 13:25 97.3 74 20 119/77 (91) 90 05/06/19 12:25 71 20 138/89 95 Nasal Cannula 3 71 05/06/19 12:15 97.7 73 18 124/86 95 Nasal Cannula 3 73 05/06/19 12:10 72 20 135/87 95 Nasal Cannula 3 72 05/06/19 12:00 71 17 133/90 92 Simple Mask 6 71 05/06/19 11:56 84 18 94 05/06/19 11:55 72 15 134/96 92 Simple Mask 6 72 05/06/19 11:55 72 16 94 05/06/19 11:50 73 19 149/99 92 Simple Mask 6 73 05/06/19 11:45 97.5 72 22 140/102 92 Simple Mask 6 72 05/06/19 09:43 75 127/83 05/06/19 09:00 Nasal Cannula 2.0 Intake and Output 05/06/19 05/07/19 19:00 07:00 Intake Total 100 ml 350 ml Output Total 1400 ml 2000 ml Balance -1300 ml -1650 ml Intake Oral 350 ml IV Total 100 ml Output Urine Total 1400 ml 2000 ml # Bowel Movements 5 1 Laboratory Tests 05/07/19 05:05: White Blood Count 13.3H, Red Blood Count 4.28L, Hemoglobin 12.9L, Hematocrit 39.5L, Mean Corpuscular Volume 92, Mean Corpuscular Hemoglobin 30.0, Mean Corpuscular Hemoglobin Concent 32.6, Red Cell Distribution Width 15.7H, Platelet Count 383, Mean Platelet Volume 5.4L, Neutrophils (%) (Auto) 67.0, Lymphocytes (%) (Auto) 23.3, Monocytes (%) (Auto) 6.9, Eosinophils (%) (Auto) 1.0, Basophils (%) (Auto) 1.9, Sodium Level 142, Potassium Level 4.4, Chloride Level 104, Carbon Dioxide Level 27, Anion Gap 11, Blood Urea Nitrogen 31H, Creatinine 1.0, Estimat Glomerular Filtration Rate > 60, Glucose Level 149H, Calcium Level 9.2 Height (Feet): 6 Height (Inches): 0.00 Weight (Pounds): 212 General Appearance: alert EENT: normal ENT inspection Neck: normal alignment Cardiovascular: normal rate Respiratory/Chest: decreased breath sounds Abdomen: normal bowel sounds, non tender, soft Extremities: non-tender Christiano La MD May 07, 2019 08:46
[2019-05-07] MEDS: Solu-MEDROL 40mg Inj IVP SCH (09:18)
[2019-05-07] MEDS: Carvedilol 6.25mg Tab ORAL SCH ×2 (09:20→21:30)
[2019-05-07] MEDS: Eliquis 5mg tablet ORAL SCH ×2 (09:22→18:57)
[2019-05-07] MEDS: Docusate 100mg cap ORAL SCH ×2 (09:22→18:57)
[2019-05-07] MEDS: Levemir Flexpen SUBQ SCH (09:38)
--- NOTE | 2019-05-07 10:58 | Infectious Diseases Prog Note ---
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 No focal airspace consolidation. There is some atelectasis at the left lung base. -04/27 CXR: Borderline cardiomegaly. Questionable mild interstitial congestion , new or increased from previous study if real. -04/21 CTA chest:Somewhat limited exam, due to motion artifact. No definite evidence of pulmonary embolus or other acute thoracic vascular pathology. Borderline cardiomegaly. Diffuse bilateral pulmonary parenchymal groundglass opacity. Interspersed small bullae digestive this is due to COPD changes, but could also indicate a component of pulmonary edema. Considerable consolidation in the right lower lobe, likely pneumonia. Less extensive consolidation and atelectasis is seen at the left lung base. Pacemaker, degenerative spondylosis incidentally noted sp cx normal resp michael -04/19 CXR: Mild pulmonary vascular congestion -04/16 CXR: No acute disease -04/13 CXR: Suspected mild pulmonary vascular congestion. Correlate clinically -04/08 CXR: Mild pulmonary vascular congestion suspected Afebrile Leukocytosis,(pn steroids) Hyperglycemia Acute hypoxic respiratory failure ,on bipap PRN COPD CAD CHF prostate cancer s/p PPM former smoker Plan: - monitor pt off of AB RX - 05/05 Sp Ertapenem # 7/7 - 05/03 sp Vancomycin # 5 -04/28 SP Zosyn #8 -04/15 SP Levaquin #7 -04/08 SP Ceftriaxone x1, Azithromycin x1 -Monitor CBC/CMP, temperatures -aspiration precautions Thank you for this consultation. Will continue to follow along with you. Subjective Allergies: Coded Allergies: No Known Allergies (Unverified , 10/24/16) Subjective afebrile on steroids Objective Vital Signs Last 24 Hour Vital Signs Date Time Temp Pulse Resp B/P (MAP) Pulse Ox O2 Delivery O2 Flow Rate FiO2 05/07/19 09:20 73 126/89 05/07/19 08:25 94 Nasal Cannula 2.0 28 05/07/19 08:00 97.5 73 18 126/89 (101) 92 05/07/19 04:00 97.7 73 22 118/82 (94) 95 05/07/19 00:00 98.0 72 21 112/80 (91) 94 05/06/19 21:11 93 155/85 05/06/19 21:00 Nasal Cannula 2.0 05/06/19 20:13 75 20 95 Room Air 21 73 20 91 05/06/19 20:12 90 Room Air 21 05/06/19 20:00 98.1 71 22 155/85 (108) 94 05/06/19 16:00 98.0 74 20 136/73 (94) 94 05/06/19 13:25 97.3 74 20 119/77 (91) 90 05/06/19 12:25 71 20 138/89 95 Nasal Cannula 3 71 05/06/19 12:15 97.7 73 18 124/86 95 Nasal Cannula 3 73 05/06/19 12:10 72 20 135/87 95 Nasal Cannula 3 72 05/06/19 12:00 71 17 133/90 92 Simple Mask 6 71 05/06/19 11:56 84 18 94 05/06/19 11:55 72 15 134/96 92 Simple Mask 6 72 05/06/19 11:55 72 16 94 05/06/19 11:50 73 19 149/99 92 Simple Mask 6 73 05/06/19 11:45 97.5 72 22 140/102 92 Simple Mask 6 72 Height (Feet): 6 Height (Inches): 0.00 Weight (Pounds): 212 HEENT: anicteric Respiratory/Chest: normal breath sounds Cardiovascular: normal rate Abdomen: no organomegaly Microbiology Date/Time Source Procedure Growth Status 05/04/19 12:30 Indwelling Cath Urine Culture - Final [place] Albicans Complete Laboratory Tests Test 05/07/19 05:05 White Blood Count 13.3 K/UL (4.8-10.8) H Red Blood Count 4.28 M/UL (4.70-6.10) L Hemoglobin 12.9 G/DL (14.2-18.0) L Hematocrit 39.5 % (42.0-52.0) L Mean Corpuscular Volume 92 FL (80-99) Mean Corpuscular Hemoglobin 30.0 PG (27.0-31.0) Mean Corpuscular Hemoglobin Concent 32.6 G/DL (32.0-36.0) Red Cell Distribution Width 15.7 % (11.6-14.8) H Platelet Count 383 K/UL (150-450) Mean Platelet Volume 5.4 FL (6.5-10.1) L Neutrophils (%) (Auto) 67.0 % (45.0-75.0) Lymphocytes (%) (Auto) 23.3 % (20.0-45.0) Monocytes (%) (Auto) 6.9 % (1.0-10.0) Eosinophils (%) (Auto) 1.0 % (0.0-3.0) Basophils (%) (Auto) 1.9 % (0.0-2.0) Sodium Level 142 MMOL/L (136-145) Potassium Level 4.4 MMOL/L (3.5-5.1) Chloride Level 104 MMOL/L (98-107) Carbon Dioxide Level 27 MMOL/L (21-32) Anion Gap 11 mmol/L (5-15) Blood Urea Nitrogen 31 mg/dL (7-18) H Creatinine 1.0 MG/DL (0.55-1.30) Estimat Glomerular Filtration Rate > 60 mL/min (>60) Glucose Level 149 MG/DL (74-106) H Calcium Level 9.2 MG/DL (8.5-10.1) Current Medications Medications (Trade) Dose Ordered Sig/Dejon Route PRN Reason Start Time Stop Time Status Last Admin Dose Admin Acetaminophen (Tylenol) 650 mg Q4H PRN ORAL fever 05/01/19 19:14 05/31/19 19:13 05/02/19 01:18 Acetaminophen/ Hydrocodone Bitart ([place] 5/325) 1 tab Q6H PRN ORAL Severe Pain (Pain Scale 7-10) 05/01/19 19:16 05/08/19 19:15 05/06/19 15:01 Apixaban (Eliquis) 5 mg BID ORAL 05/02/19 09:00 05/09/19 08:59 05/07/19 09:22 Carvedilol (Coreg) 6.25 mg EVERY 12 HOURS ORAL 05/01/19 21:00 05/09/19 08:59 05/07/19 09:20 Clonidine HCl (Catapres Tab) 0.1 mg Q4H PRN ORAL sbp more than 160 05/01/19 19:14 05/31/19 19:13 Clotrimazole (Lotrimin) 1 applic THREE TIMES A DAY TOPIC 05/02/19 09:00 05/20/19 12:59 05/06/19 09:53 Dextrose (Dextrose 50%) 25 ml Q30M PRN IV Hypoglycemia 05/01/19 19:30 05/09/19 15:29 Dextrose (Dextrose 50%) 50 ml Q30M PRN IV Hypoglycemia 05/01/19 19:30 05/09/19 07:29 Docusate Sodium (Colace) 100 mg TWICE A DAY ORAL 05/02/19 09:00 05/31/19 08:59 05/07/19 09:22 Escitalopram Oxalate (Lexapro) 10 mg DAILY ORAL 05/02/19 09:00 05/27/19 08:59 05/07/19 09:22 Insulin Aspart (NovoLOG) BEFORE MEALS AND HS SUBQ 05/01/19 21:00 05/09/19 13:29 05/06/19 17:54 Insulin Aspart (NovoLOG) 8 units NOVOTIAC SUBQ 05/07/19 06:30 05/10/19 07:29 Insulin Detemir (Levemir) 24 units DAILY SUBQ 05/05/19 09:00 05/09/19 20:59 05/07/19 09:38 Levothyroxine Sodium (Synthroid) 75 mcg ACBREAKFAST ORAL 05/02/19 06:30 05/27/19 06:29 05/07/19 06:27 Levothyroxine Sodium (Synthroid) 100 mcg ACBREAKFAST ORAL 05/02/19 06:30 05/09/19 06:29 05/07/19 06:27 Methylprednisolone Sodium Succinate (Solu-MEDROL) 30 mg DAILY IVP 05/04/19 09:00 05/30/19 08:59 05/07/19 09:18 Nitroglycerin (Ntg) 0.4 mg Q5M X 3 DOSES PRN SL Prn Chest Pain 05/01/19 19:00 05/08/19 21:29 Ondansetron HCl (Zofran) 4 mg Q6H PRN IVP Nausea & Vomiting 05/01/19 19:16 05/31/19 19:15 Oxymetazoline HCl (Afrin Nasal [place]) 1 spray Q6H PRN NASAL nasal congestion 05/01/19 19:16 05/31/19 19:15 Pantoprazole (Protonix) 40 mg EVERY 12 HOURS ORAL 05/06/19 21:00 06/05/19 20:59 05/07/19 09:22 Polyethylene Glycol (Miralax) 17 gm BEDTIME ORAL 05/01/19 21:00 05/31/19 20:59 05/06/19 21:11 Promethazine HCl/ Codeine (Phenergan with Codeine) 5 ml Q6H PRN ORAL cough 05/01/19 19:17 05/31/19 19:16 05/04/19 21:01 Tamsulosin HCl (Flomax) 0.4 mg BEDTIME ORAL 05/01/19 21:00 05/09/19 20:59 05/06/19 21:11 Robert Canela MD May 07, 2019 10:58
[2019-05-07 12:00] VITALS: BP 128/84
--- NOTE | 2019-05-07 14:38 | Pulmonology Progress Note ---
Assessment/Plan Problems: (1) Nosocomial pneumonia (2) Respiratory failure with hypoxia (3) COPD exacerbation (4) Pacemaker (5) Diabetes mellitus (6) Prostate cancer Assessment/Plan still short of breath wtih episodes of cough spell on nasal cannula now on and off bipap sputum showing dale again dc steroids high wbc could be secondary to steroids still short of breath, loud rhonchi He wants to go home on Friday now Subjective HEENT: Repors: no symptoms Allergies: Coded Allergies: No Known Allergies (Unverified , 10/24/16) Objective Last 24 Hour Vital Signs Date Time Temp Pulse Resp B/P (MAP) Pulse Ox O2 Delivery O2 Flow Rate FiO2 05/07/19 09:20 73 126/89 05/07/19 09:00 Nasal Cannula 2.0 05/07/19 08:25 94 Nasal Cannula 2.0 28 05/07/19 08:25 76 20 94 Nasal Cannula 2.0 28 05/07/19 08:00 97.5 73 18 126/89 (101) 92 05/07/19 04:00 97.7 73 22 118/82 (94) 95 05/07/19 00:00 98.0 72 21 112/80 (91) 94 05/06/19 21:11 93 155/85 05/06/19 21:00 Nasal Cannula 2.0 05/06/19 20:13 75 20 95 Room Air 21 73 20 91 05/06/19 20:12 90 Room Air 21 05/06/19 20:00 98.1 71 22 155/85 (108) 94 05/06/19 16:00 98.0 74 20 136/73 (94) 94 Intake and Output 05/06/19 05/07/19 19:00 07:00 Intake Total 100 ml 350 ml Output Total 1400 ml 2000 ml Balance -1300 ml -1650 ml Intake Oral 350 ml IV Total 100 ml Output Urine Total 1400 ml 2000 ml # Bowel Movements 5 1 General Appearance: WD/WN HEENT: normocephalic Respiratory/Chest: crackles/rales Cardiovascular: normal peripheral pulses, normal rate Abdomen: normal bowel sounds Laboratory Tests 05/07/19 05:05: White Blood Count 13.3H, Red Blood Count 4.28L, Hemoglobin 12.9L, Hematocrit 39.5L, Mean Corpuscular Volume 92, Mean Corpuscular Hemoglobin 30.0, Mean Corpuscular Hemoglobin Concent 32.6, Red Cell Distribution Width 15.7H, Platelet Count 383, Mean Platelet Volume 5.4L, Neutrophils (%) (Auto) 67.0, Lymphocytes (%) (Auto) 23.3, Monocytes (%) (Auto) 6.9, Eosinophils (%) (Auto) 1.0, Basophils (%) (Auto) 1.9, Sodium Level 142, Potassium Level 4.4, Chloride Level 104, Carbon Dioxide Level 27, Anion Gap 11, Blood Urea Nitrogen 31H, Creatinine 1.0, Estimat Glomerular Filtration Rate > 60, Glucose Level 149H, Calcium Level 9.2 Current Medications Medications (Trade) Dose Ordered Sig/Dejon Route PRN Reason Start Time Stop Time Status Last Admin Dose Admin Acetaminophen (Tylenol) 650 mg Q4H PRN ORAL fever 05/01/19 19:14 05/31/19 19:13 05/02/19 01:18 Acetaminophen/ Hydrocodone Bitart ([place] 5/325) 1 tab Q6H PRN ORAL Severe Pain (Pain Scale 7-10) 05/01/19 19:16 05/08/19 19:15 05/06/19 15:01 Apixaban (Eliquis) 5 mg BID ORAL 05/02/19 09:00 05/09/19 08:59 05/07/19 09:22 Carvedilol (Coreg) 6.25 mg EVERY 12 HOURS ORAL 05/01/19 21:00 05/09/19 08:59 05/07/19 09:20 Clonidine HCl (Catapres Tab) 0.1 mg Q4H PRN ORAL sbp more than 160 05/01/19 19:14 05/31/19 19:13 Clotrimazole (Lotrimin) 1 applic THREE TIMES A DAY TOPIC 05/02/19 09:00 05/20/19 12:59 05/06/19 09:53 Dextrose (Dextrose 50%) 25 ml Q30M PRN IV Hypoglycemia 05/01/19 19:30 05/09/19 15:29 Dextrose (Dextrose 50%) 50 ml Q30M PRN IV Hypoglycemia 05/01/19 19:30 05/09/19 07:29 Docusate Sodium (Colace) 100 mg TWICE A DAY ORAL 05/02/19 09:00 05/31/19 08:59 05/07/19 09:22 Escitalopram Oxalate (Lexapro) 10 mg DAILY ORAL 05/02/19 09:00 05/27/19 08:59 05/07/19 09:22 Insulin Aspart (NovoLOG) BEFORE MEALS AND HS SUBQ 05/01/19 21:00 05/09/19 13:29 05/06/19 17:54 Insulin Aspart (NovoLOG) 8 units NOVOTIAC SUBQ 05/07/19 06:30 05/10/19 07:29 Insulin Detemir (Levemir) 24 units DAILY SUBQ 05/05/19 09:00 05/09/19 20:59 05/07/19 09:38 Levothyroxine Sodium (Synthroid) 75 mcg ACBREAKFAST ORAL 05/02/19 06:30 05/27/19 06:29 05/07/19 06:27 Levothyroxine Sodium (Synthroid) 100 mcg ACBREAKFAST ORAL 05/02/19 06:30 05/09/19 06:29 05/07/19 06:27 Methylprednisolone Sodium Succinate (Solu-MEDROL) 30 mg DAILY IVP 05/04/19 09:00 05/30/19 08:59 05/07/19 09:18 Nitroglycerin (Ntg) 0.4 mg Q5M X 3 DOSES PRN SL Prn Chest Pain 05/01/19 19:00 05/08/19 21:29 Ondansetron HCl (Zofran) 4 mg Q6H PRN IVP Nausea & Vomiting 05/01/19 19:16 05/31/19 19:15 Oxymetazoline HCl (Afrin Nasal [place]) 1 spray Q6H PRN NASAL nasal congestion 05/01/19 19:16 05/31/19 19:15 Pantoprazole (Protonix) 40 mg EVERY 12 HOURS ORAL 05/06/19 21:00 06/05/19 20:59 05/07/19 09:22 Polyethylene Glycol (Miralax) 17 gm BEDTIME ORAL 05/01/19 21:00 05/31/19 20:59 05/06/19 21:11 Promethazine HCl/ Codeine (Phenergan with Codeine) 5 ml Q6H PRN ORAL cough 05/01/19 19:17 05/31/19 19:16 05/04/19 21:01 Tamsulosin HCl (Flomax) 0.4 mg BEDTIME ORAL 05/01/19 21:00 05/09/19 20:59 05/06/19 21:11 Goldie Obrien MD May 07, 2019 14:38
[2019-05-07] MEDS: HYDROcodone/Acetamin 5/325 tab ORAL PRN ×2 (15:24→21:35)
[2019-05-07] MEDS ORDERED: Nitroglycerin Subl 0.4mg tab SL PRN (15:30)
[2019-05-07 16:00] VITALS: BP 130/70
--- NOTE | 2019-05-07 19:37 | Internal Med Progress Note ---
Subjective Date of Service: May 07, 2019 Physician Name LugoIdris Attending Physician Jewel Giraldo MD Current Medications Medications (Trade) Dose Ordered Sig/Dejon Route PRN Reason Start Time Stop Time Status Last Admin Dose Admin Acetaminophen (Tylenol) 650 mg Q4H PRN ORAL fever 05/01/19 19:14 05/31/19 19:13 05/02/19 01:18 Acetaminophen/ Hydrocodone Bitart ([place] 5/325) 1 tab Q6H PRN ORAL Severe Pain (Pain Scale 7-10) 05/07/19 15:30 05/14/19 15:29 05/07/19 15:24 Apixaban (Eliquis) 5 mg BID ORAL 05/02/19 09:00 06/06/19 08:59 05/07/19 18:57 Carvedilol (Coreg) 6.25 mg EVERY 12 HOURS ORAL 05/07/19 21:00 05/15/19 08:59 Clonidine HCl (Catapres Tab) 0.1 mg Q4H PRN ORAL sbp more than 160 05/01/19 19:14 05/31/19 19:13 Clotrimazole (Lotrimin) 1 applic THREE TIMES A DAY TOPIC 05/02/19 09:00 05/20/19 12:59 05/06/19 09:53 Dextrose (Dextrose 50%) 25 ml Q30M PRN IV Hypoglycemia 05/07/19 15:00 05/15/19 10:59 Dextrose (Dextrose 50%) 50 ml Q30M PRN IV Hypoglycemia 05/07/19 15:00 05/15/19 02:59 Docusate Sodium (Colace) 100 mg TWICE A DAY ORAL 05/02/19 09:00 05/31/19 08:59 05/07/19 18:57 Escitalopram Oxalate (Lexapro) 10 mg DAILY ORAL 05/02/19 09:00 05/27/19 08:59 05/07/19 09:22 Insulin Aspart (NovoLOG) BEFORE MEALS AND HS SUBQ 05/07/19 16:30 05/15/19 08:59 05/07/19 17:04 Insulin Aspart (NovoLOG) 8 units NOVOTIAC SUBQ 05/07/19 16:50 05/10/19 17:49 Insulin Detemir (Levemir) 24 units DAILY SUBQ 05/08/19 09:00 3/4/20 20:59 Levothyroxine Sodium (Synthroid) 75 mcg ACBREAKFAST ORAL 05/02/19 06:30 05/27/19 06:29 05/07/19 06:27 Levothyroxine Sodium (Synthroid) 100 mcg ACBREAKFAST ORAL 05/08/19 06:30 05/15/19 06:29 Nitroglycerin (Ntg) 0.4 mg Q5M X 3 DOSES PRN SL Prn Chest Pain 05/07/19 15:30 06/06/19 15:29 Ondansetron HCl (Zofran) 4 mg Q6H PRN IVP Nausea & Vomiting 05/01/19 19:16 05/31/19 19:15 Oxymetazoline HCl (Afrin Nasal [place]) 1 spray Q6H PRN NASAL nasal congestion 05/01/19 19:16 05/31/19 19:15 Pantoprazole (Protonix) 40 mg EVERY 12 HOURS ORAL 05/06/19 21:00 06/05/19 20:59 05/07/19 09:22 Polyethylene Glycol (Miralax) 17 gm BEDTIME ORAL 05/01/19 21:00 05/31/19 20:59 05/06/19 21:11 Promethazine HCl/ Codeine (Phenergan with Codeine) 5 ml Q6H PRN ORAL cough 05/01/19 19:17 05/31/19 19:16 05/04/19 21:01 Tamsulosin HCl (Flomax) 0.4 mg BEDTIME ORAL 05/07/19 21:00 05/15/19 20:59 Allergies: Coded Allergies: No Known Allergies (Unverified , 10/24/16) ROS Limited/Unobtainable: No Constitutional: Reports: no symptoms HEENT: Reports: no symptoms Cardiovascular: Reports: no symptoms Respiratory: Reports: shortness of breath Gastrointestinal/Abdominal: Reports: no symptoms Genitourinary: Reports: no symptoms Neurologic/Psychiatric: Reports: no symptoms Subjective 73 YO M admitted with COPD exacerbation. Now respiratory failure and pneumonia. Cover for Int Bubba-DR Giraldo. S/P endoscopy 05/06/19 Objective Last Vital Signs Date Time Temp Pulse Resp B/P (MAP) Pulse Ox O2 Delivery O2 Flow Rate FiO2 05/07/19 16:00 97.0 70 18 130/70 (90) 92 05/07/19 09:00 Nasal Cannula 2.0 05/07/19 08:25 28 Laboratory Tests Test 05/07/19 05:05 White Blood Count 13.3 K/UL (4.8-10.8) H Red Blood Count 4.28 M/UL (4.70-6.10) L Hemoglobin 12.9 G/DL (14.2-18.0) L Hematocrit 39.5 % (42.0-52.0) L Mean Corpuscular Volume 92 FL (80-99) Mean Corpuscular Hemoglobin 30.0 PG (27.0-31.0) Mean Corpuscular Hemoglobin Concent 32.6 G/DL (32.0-36.0) Red Cell Distribution Width 15.7 % (11.6-14.8) H Platelet Count 383 K/UL (150-450) Mean Platelet Volume 5.4 FL (6.5-10.1) L Neutrophils (%) (Auto) 67.0 % (45.0-75.0) Lymphocytes (%) (Auto) 23.3 % (20.0-45.0) Monocytes (%) (Auto) 6.9 % (1.0-10.0) Eosinophils (%) (Auto) 1.0 % (0.0-3.0) Basophils (%) (Auto) 1.9 % (0.0-2.0) Sodium Level 142 MMOL/L (136-145) Potassium Level 4.4 MMOL/L (3.5-5.1) Chloride Level 104 MMOL/L (98-107) Carbon Dioxide Level 27 MMOL/L (21-32) Anion Gap 11 mmol/L (5-15) Blood Urea Nitrogen 31 mg/dL (7-18) H Creatinine 1.0 MG/DL (0.55-1.30) Estimat Glomerular Filtration Rate > 60 mL/min (>60) Glucose Level 149 MG/DL (74-106) H Calcium Level 9.2 MG/DL (8.5-10.1) Intake and Output 05/06/19 05/07/19 19:00 07:00 Intake Total 100 ml 350 ml Output Total 1400 ml 2000 ml Balance -1300 ml -1650 ml Intake Oral 350 ml IV Total 100 ml Output Urine Total 1400 ml 2000 ml # Bowel Movements 5 1 Objective PHYSICAL EXAMINATION: GENERAL: The patient is awake, responsive, no acute distress. HEAD AND NECK: Pupils are equal and reactive to light. Extraocular muscles intact. Neck was supple. No JVD. LUNGS: BIPAP;The patient has expiratory wheezes noted. Tachypneic. No rhonchi was noted. HEART: S1, S2. Irregular. No murmur. The patient has a pacemaker in the left-sided chest wall. ABDOMEN: Soft, nondistended, nontender. Mildly obese. EXTREMITIES: No cyanosis, clubbing, edema. NEUROLOGIC: Cranial nerves II through XII grossly normal. Motor is 5/5 in all extremities. Gait is intact. GENITOURINARY: It was noted the patient has a [place] catheter. RECTAL: Refused and deferred. PSYCHIATRIC: Mood and affect is intact. Assessment/Plan Assessment/Plan ASSESSMENT: 1. Acute hypoxemic respiratory failure, most likely secondary to acute COPD exacerbation. 2. Acute COPD exacerbation. 3. Pneumonia. 4. Sick sinus syndrome status post pacemaker. 5. Diabetes type 2. 6. Prostate cancer. 7. Hyperkalemia. 8. Insulin induced hyperglycemia. 9. Prostate enlargement. 10. Leukocytosis 11. RBBB 12 Gastritis PLAN: 1. Med/Surg 2. D/C Solu-Medrol IV Per Pulmonary consult=Dr. Obrien. 3. Endocrinology=Dr To. Monitor blood glucose level closely. 4. antibiotic=S/P ertapenem and vanco. ID=Dr Villa 5. Code status is Full Code. DVT prophylaxis, he is on Eliquis. 6. S/P endoscopy 05/06/19 Discharge planning ?hospice eval? Idris Lugo MD May 07, 2019 19:37
[2019-05-07 20:00] VITALS: BP 113/82
[2019-05-07] MEDS: Miralax 17gm pkt ORAL SCH ×2 (21:00→21:30)
[2019-05-07] MEDS: Tamsulosin 0.4mg cap ORAL SCH (21:28)
[2019-05-08] VITALS: BP 119/77
--- NOTE | 2019-05-08 01:45 | Progress Note ---
DATE: 05/08/2019 SUBJECTIVE: The patient is in bed, is the same. He continues to be uncooperative. Abusive towards the staff. Refusing . MENTAL STATUS EXAMINATION: The patient is alert and oriented times self, place, and situation. Mood is neutral. Affect is flat. Thought process is concrete. Thought content, no suicidal or homicidal ideation. Cognition is intact. Insight and judgment is impaired. ASSESSMENT: 1. Major depressive disorder. 2. personality. PLAN: 1. Continue current 2. The patient should be discharged. Ottoniel Hillman M.D. DR: STIVEN JOB#: [id number] CC: JACKELIN
[2019-05-08] MEDS: HYDROcodone/Acetamin 5/325 tab ORAL PRN ×2 (03:27→21:41)
[2019-05-08 04:00] VITALS: BP 111/75
[2019-05-08] MEDS: NovoLOG Insulin Flexpen SUBQ SCH ×7 (05:27→21:12)
--- NOTE | 2019-05-08 08:53 | General Progress Note ---
Assessment/Plan Problem List: (1) COPD exacerbation ICD Codes: J44.1 - Chronic obstructive pulmonary disease with (acute) exacerbation SNOMED: 112984514 (2) Respiratory failure with hypoxia ICD Codes: J96.91 - Respiratory failure, unspecified with hypoxia SNOMED: 87881283562532311 (3) Diabetes mellitus ICD Codes: E11.9 - Type 2 diabetes mellitus without complications SNOMED: 93820254 (4) Pacemaker ICD Codes: Z95.0 - Presence of cardiac pacemaker SNOMED: 202432189 (5) Prostate cancer ICD Codes: C61 - Malignant neoplasm of prostate SNOMED: 950101737 (6) Hypothyroid ICD Codes: E03.9 - Hypothyroidism, unspecified SNOMED: 43676195 Status: unchanged Assessment/Plan: continue Levemir 24 units qam continue Novolog 8 units ac tid continue NISS ac / hs continue Levothyroxine 175 mcg qam repeat thyroid function in 2 weeks Subjective Allergies: Coded Allergies: No Known Allergies (Unverified , 10/24/16) All Systems: reviewed and negative except above Subjective events noted refused medications Item Value Date Time Bedside Blood Glucose 139 mg/dl H 05/07/19 2100 Bedside Blood Glucose 187 mg/dl H 05/07/19 1704 Bedside Blood Glucose 165 mg/dl H 05/07/19 0938 Bedside Blood Glucose 139 mg/dl H 05/07/19 0630 Objective Last 24 Hour Vital Signs Date Time Temp Pulse Resp B/P (MAP) Pulse Ox O2 Delivery O2 Flow Rate FiO2 05/08/19 04:00 97.5 74 18 111/75 (87) 93 05/08/19 00:00 98.3 99 18 119/77 (91) 90 05/07/19 21:30 113 113/82 05/07/19 21:00 Nasal Cannula 2.0 05/07/19 20:00 97.9 95 18 113/82 (92) 90 05/07/19 19:52 92 Room Air 21 05/07/19 16:00 97.0 70 18 130/70 (90) 92 05/07/19 15:00 Nasal Cannula 2.0 05/07/19 12:00 97.2 74 20 128/84 (99) 92 05/07/19 09:20 73 126/89 05/07/19 09:00 Nasal Cannula 2.0 Intake and Output 05/07/19 05/08/19 19:00 07:00 Intake Total 500 ml Output Total 2500 ml 1200 ml Balance -2000 ml -1200 ml Intake Oral 500 ml Output Urine Total 2500 ml 1200 ml # Bowel Movements 2 Height (Feet): 6 Height (Inches): 0.00 Weight (Pounds): 212 General Appearance: no apparent distress Neck: normal alignment Cardiovascular: normal rate Respiratory/Chest: decreased breath sounds Abdomen: normal bowel sounds Objective Current Medications Medications (Trade) Dose Ordered Sig/Dejon Route PRN Reason Start Time Stop Time Status Last Admin Dose Admin Acetaminophen (Tylenol) 650 mg Q4H PRN ORAL fever 05/01/19 19:14 05/31/19 19:13 05/02/19 01:18 Acetaminophen/ Hydrocodone Bitart ([place] 5/325) 1 tab Q6H PRN ORAL Severe Pain (Pain Scale 7-10) 05/07/19 15:30 05/14/19 15:29 05/08/19 03:27 Apixaban (Eliquis) 5 mg BID ORAL 05/02/19 09:00 06/06/19 08:59 05/07/19 18:57 Carvedilol (Coreg) 6.25 mg EVERY 12 HOURS ORAL 05/07/19 21:00 05/15/19 08:59 05/07/19 21:30 Clonidine HCl (Catapres Tab) 0.1 mg Q4H PRN ORAL sbp more than 160 05/01/19 19:14 05/31/19 19:13 Clotrimazole (Lotrimin) 1 applic THREE TIMES A DAY TOPIC 05/02/19 09:00 05/20/19 12:59 05/06/19 09:53 Dextrose (Dextrose 50%) 25 ml Q30M PRN IV Hypoglycemia 05/07/19 15:00 05/15/19 10:59 Dextrose (Dextrose 50%) 50 ml Q30M PRN IV Hypoglycemia 05/07/19 15:00 05/15/19 02:59 Docusate Sodium (Colace) 100 mg TWICE A DAY ORAL 05/02/19 09:00 05/31/19 08:59 05/07/19 18:57 Escitalopram Oxalate (Lexapro) 10 mg DAILY ORAL 05/02/19 09:00 05/27/19 08:59 05/07/19 09:22 Insulin Aspart (NovoLOG) BEFORE MEALS AND HS SUBQ 05/07/19 16:30 05/15/19 08:59 05/07/19 17:04 Insulin Aspart (NovoLOG) 8 units NOVOTIAC SUBQ 05/07/19 16:50 05/10/19 17:49 Insulin Detemir (Levemir) 24 units DAILY SUBQ 05/08/19 09:00 05/12/19 20:59 Levothyroxine Sodium (Synthroid) 75 mcg ACBREAKFAST ORAL 05/02/19 06:30 05/27/19 06:29 05/07/19 06:27 Levothyroxine Sodium (Synthroid) 100 mcg ACBREAKFAST ORAL 05/08/19 06:30 05/15/19 06:29 Nitroglycerin (Ntg) 0.4 mg Q5M X 3 DOSES PRN SL Prn Chest Pain 05/07/19 15:30 06/06/19 15:29 Ondansetron HCl (Zofran) 4 mg Q6H PRN IVP Nausea & Vomiting 05/01/19 19:16 05/31/19 19:15 Oxymetazoline HCl (Afrin Nasal [place]) 1 spray Q6H PRN NASAL nasal congestion 05/01/19 19:16 05/31/19 19:15 Pantoprazole (Protonix) 40 mg EVERY 12 HOURS ORAL 05/06/19 21:00 06/05/19 20:59 05/07/19 21:28 Polyethylene Glycol (Miralax) 17 gm BEDTIME ORAL 05/01/19 21:00 05/31/19 20:59 05/06/19 21:11 Promethazine HCl/ Codeine (Phenergan with Codeine) 5 ml Q6H PRN ORAL cough 05/01/19 19:17 05/31/19 19:16 05/04/19 21:01 Tamsulosin HCl (Flomax) 0.4 mg BEDTIME ORAL 05/07/19 21:00 05/15/19 20:59 05/07/19 21:28 Geovanni To MD May 08, 2019 08:53
[2019-05-08] MEDS: Docusate 100mg cap ORAL SCH ×2 (09:00→18:00)
[2019-05-08] MEDS: Levemir Flexpen SUBQ SCH (09:00)
[2019-05-08] MEDS: Carvedilol 6.25mg Tab ORAL SCH ×2 (09:00→21:00)
[2019-05-08] MEDS: Eliquis 5mg tablet ORAL SCH ×2 (09:00→18:00)
[2019-05-08 09:58] LABS: BASOPHILS % (AUTO) 2.4 % (0.0-2.0); EOSINOPHILS % (AUTO) 1.8 % (0.0-3.0); HEMATOCRIT 41.2 % (42.0-52.0); HEMOGLOBIN 13.5 G/DL (14.2-18.0); LYMPHOCYTES % (AUTO) 29.6 % (20.0-45.0); MEAN CORPUSCULAR VOLUME 91 FL (80-99); MONOCYTES % (AUTO) 4.9 % (1.0-10.0); NEUTROPHILS % (AUTO) 61.2 % (45.0-75.0); PLATELET COUNT 399 K/UL (150-450); RED CELL DISTRIBUTION WIDTH 15.3 % (11.6-14.8); WHITE BLOOD COUNT 11.7 K/UL (4.8-10.8)
[2019-05-08 10:15] LABS: ALANINE AMINOTRANSFERASE 25 U/L (12-78); ALBUMIN/GLOBULIN RATIO 0.9 (1.0-2.7); ALKALINE PHOSPHATASE 74 U/L (46-116); ANION GAP 7 mmol/L (5-15); ASPARTATE AMINO TRANSFERASE 16 U/L (15-37); BILIRUBIN,TOTAL 0.2 MG/DL (0.2-1.0); BLOOD UREA NITROGEN 28 mg/dL (7-18); CALCIUM 9.1 MG/DL (8.5-10.1); CARBON DIOXIDE 31 MMOL/L (21-32); CHLORIDE 101 MMOL/L (98-107); CREATININE 1.1 MG/DL (0.55-1.30); PHOSPHORUS 3.9 MG/DL (2.5-4.9); POTASSIUM 4.2 MMOL/L (3.5-5.1); SODIUM 139 MMOL/L (136-145)
--- NOTE | 2019-05-08 14:13 | Internal Med Progress Note ---
Subjective Date of Service: May 08, 2019 Physician Name Lugo,Idris Attending Physician Jewel Giraldo MD Current Medications Medications (Trade) Dose Ordered Sig/Dejon Route PRN Reason Start Time Stop Time Status Last Admin Dose Admin Acetaminophen (Tylenol) 650 mg Q4H PRN ORAL fever 05/01/19 19:14 05/31/19 19:13 05/02/19 01:18 Acetaminophen/ Hydrocodone Bitart ([place] 5/325) 1 tab Q6H PRN ORAL Severe Pain (Pain Scale 7-10) 05/07/19 15:30 05/14/19 15:29 05/08/19 03:27 Apixaban (Eliquis) 5 mg BID ORAL 05/02/19 09:00 06/06/19 08:59 05/07/19 18:57 Carvedilol (Coreg) 6.25 mg EVERY 12 HOURS ORAL 05/07/19 21:00 05/15/19 08:59 05/07/19 21:30 Clonidine HCl (Catapres Tab) 0.1 mg Q4H PRN ORAL sbp more than 160 05/01/19 19:14 05/31/19 19:13 Clotrimazole (Lotrimin) 1 applic THREE TIMES A DAY TOPIC 05/02/19 09:00 05/20/19 12:59 05/06/19 09:53 Dextrose (Dextrose 50%) 25 ml Q30M PRN IV Hypoglycemia 05/07/19 15:00 05/15/19 10:59 Dextrose (Dextrose 50%) 50 ml Q30M PRN IV Hypoglycemia 05/07/19 15:00 05/15/19 02:59 Docusate Sodium (Colace) 100 mg TWICE A DAY ORAL 05/02/19 09:00 05/31/19 08:59 05/07/19 18:57 Escitalopram Oxalate (Lexapro) 10 mg DAILY ORAL 05/02/19 09:00 05/27/19 08:59 05/07/19 09:22 Insulin Aspart (NovoLOG) BEFORE MEALS AND HS SUBQ 05/07/19 16:30 05/15/19 08:59 05/07/19 17:04 Insulin Aspart (NovoLOG) 8 units NOVOTIAC SUBQ 05/07/19 16:50 05/10/19 17:49 Insulin Detemir (Levemir) 24 units DAILY SUBQ 05/08/19 09:00 05/12/19 20:59 Levothyroxine Sodium (Synthroid) 75 mcg ACBREAKFAST ORAL 05/02/19 06:30 05/27/19 06:29 05/07/19 06:27 Levothyroxine Sodium (Synthroid) 100 mcg ACBREAKFAST ORAL 05/08/19 06:30 05/15/19 06:29 Nitroglycerin (Ntg) 0.4 mg Q5M X 3 DOSES PRN SL Prn Chest Pain 05/07/19 15:30 06/06/19 15:29 Ondansetron HCl (Zofran) 4 mg Q6H PRN IVP Nausea & Vomiting 05/01/19 19:16 05/31/19 19:15 Oxymetazoline HCl (Afrin Nasal [place]) 1 spray Q6H PRN NASAL nasal congestion 05/01/19 19:16 05/31/19 19:15 Pantoprazole (Protonix) 40 mg EVERY 12 HOURS ORAL 05/06/19 21:00 06/05/19 20:59 05/07/19 21:28 Polyethylene Glycol (Miralax) 17 gm BEDTIME ORAL 05/01/19 21:00 05/31/19 20:59 05/06/19 21:11 Promethazine HCl/ Codeine (Phenergan with Codeine) 5 ml Q6H PRN ORAL cough 05/01/19 19:17 05/31/19 19:16 05/04/19 21:01 Tamsulosin HCl (Flomax) 0.4 mg BEDTIME ORAL 05/07/19 21:00 05/15/19 20:59 05/07/19 21:28 Allergies: Coded Allergies: No Known Allergies (Unverified , 10/24/16) ROS Limited/Unobtainable: No Constitutional: Reports: no symptoms HEENT: Reports: no symptoms Cardiovascular: Reports: no symptoms Respiratory: Reports: shortness of breath Gastrointestinal/Abdominal: Reports: no symptoms Genitourinary: Reports: no symptoms Neurologic/Psychiatric: Reports: no symptoms Subjective 73 YO M admitted with COPD exacerbation. Now respiratory failure and pneumonia. Cover for Int Bubba-DR Giraldo. S/P endoscopy 05/06/19 Objective Last Vital Signs Date Time Temp Pulse Resp B/P (MAP) Pulse Ox O2 Delivery O2 Flow Rate FiO2 05/08/19 12:30 Nasal Cannula 2.0 05/08/19 04:00 97.5 74 18 111/75 (87) 93 05/07/19 19:52 21 Laboratory Tests Test 05/08/19 09:00 White Blood Count 11.7 K/UL (4.8-10.8) H Red Blood Count 4.50 M/UL (4.70-6.10) L Hemoglobin 13.5 G/DL (14.2-18.0) L Hematocrit 41.2 % (42.0-52.0) L Mean Corpuscular Volume 91 FL (80-99) Mean Corpuscular Hemoglobin 30.1 PG (27.0-31.0) Mean Corpuscular Hemoglobin Concent 32.9 G/DL (32.0-36.0) Red Cell Distribution Width 15.3 % (11.6-14.8) H Platelet Count 399 K/UL (150-450) Mean Platelet Volume 5.5 FL (6.5-10.1) L Neutrophils (%) (Auto) 61.2 % (45.0-75.0) Lymphocytes (%) (Auto) 29.6 % (20.0-45.0) Monocytes (%) (Auto) 4.9 % (1.0-10.0) Eosinophils (%) (Auto) 1.8 % (0.0-3.0) Basophils (%) (Auto) 2.4 % (0.0-2.0) H Erythrocyte Sedimentation Rate 105 MM/HR (0-20) H Sodium Level 139 MMOL/L (136-145) Potassium Level 4.2 MMOL/L (3.5-5.1) Chloride Level 101 MMOL/L (98-107) Carbon Dioxide Level 31 MMOL/L (21-32) Anion Gap 7 mmol/L (5-15) Blood Urea Nitrogen 28 mg/dL (7-18) H Creatinine 1.1 MG/DL (0.55-1.30) Estimat Glomerular Filtration Rate > 60 mL/min (>60) Glucose Level 162 MG/DL (74-106) H Calcium Level 9.1 MG/DL (8.5-10.1) Phosphorus Level 3.9 MG/DL (2.5-4.9) Magnesium Level 1.8 MG/DL (1.8-2.4) Total Bilirubin 0.2 MG/DL (0.2-1.0) Aspartate Amino Transf (AST/SGOT) 16 U/L (15-37) Alanine Aminotransferase (ALT/SGPT) 25 U/L (12-78) Alkaline Phosphatase 74 U/L (46-116) C-Reactive Protein, Quantitative < 0.4 mg/dL (0.00-0.90) Total Protein 6.5 G/DL (6.4-8.2) Albumin 3.0 G/DL (3.4-5.0) L Globulin 3.5 g/dL Albumin/Globulin Ratio 0.9 (1.0-2.7) L Intake and Output 05/07/19 05/08/19 19:00 07:00 Intake Total 500 ml Output Total 2500 ml 1200 ml Balance -2000 ml -1200 ml Intake Oral 500 ml Output Urine Total 2500 ml 1200 ml # Bowel Movements 2 Objective PHYSICAL EXAMINATION: GENERAL: The patient is awake, responsive, no acute distress. HEAD AND NECK: Pupils are equal and reactive to light. Extraocular muscles intact. Neck was supple. No JVD. LUNGS: BIPAP;The patient has expiratory wheezes noted. Tachypneic. No rhonchi was noted. HEART: S1, S2. Irregular. No murmur. The patient has a pacemaker in the left-sided chest wall. ABDOMEN: Soft, nondistended, nontender. Mildly obese. EXTREMITIES: No cyanosis, clubbing, edema. NEUROLOGIC: Cranial nerves II through XII grossly normal. Motor is 5/5 in all extremities. Gait is intact. GENITOURINARY: It was noted the patient has a [place] catheter. RECTAL: Refused and deferred. PSYCHIATRIC: Mood and affect is intact. Assessment/Plan Assessment/Plan ASSESSMENT: 1. Acute hypoxemic respiratory failure, most likely secondary to acute COPD exacerbation. 2. Acute COPD exacerbation. 3. Pneumonia. 4. Sick sinus syndrome status post pacemaker. 5. Diabetes type 2. 6. Prostate cancer. 7. Hyperkalemia. 8. Insulin induced hyperglycemia. 9. Prostate enlargement. 10. Leukocytosis 11. RBBB 12 Gastritis PLAN: 1. Med/Surg 2. D/C Solu-Medrol IV Per Pulmonary consult=Dr. Obrien. 3. Endocrinology=Dr To. Monitor blood glucose level closely. 4. antibiotic=S/P ertapenem and vanco. ID=Dr Villa 5. Code status is Full Code. DVT prophylaxis, he is on Eliquis. 6. S/P endoscopy 05/06/19=gastritis Discharge planning ?hospice eval? Idris Lugo MD May 08, 2019 14:13
--- NOTE | 2019-05-08 16:07 | Infectious Diseases Prog Note ---
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 No focal airspace consolidation. There is some atelectasis at the left lung base. -04/27 CXR: Borderline cardiomegaly. Questionable mild interstitial congestion , new or increased from previous study if real. -04/21 CTA chest:Somewhat limited exam, due to motion artifact. No definite evidence of pulmonary embolus or other acute thoracic vascular pathology. Borderline cardiomegaly. Diffuse bilateral pulmonary parenchymal groundglass opacity. Interspersed small bullae digestive this is due to COPD changes, but could also indicate a component of pulmonary edema. Considerable consolidation in the right lower lobe, likely pneumonia. Less extensive consolidation and atelectasis is seen at the left lung base. Pacemaker, degenerative spondylosis incidentally noted sp cx normal resp michael -04/19 CXR: Mild pulmonary vascular congestion -04/16 CXR: No acute disease -04/13 CXR: Suspected mild pulmonary vascular congestion. Correlate clinically -04/08 CXR: Mild pulmonary vascular congestion suspected Afebrile Leukocytosis,(pn steroids); improving Hyperglycemia Acute hypoxic respiratory failure ,on bipap PRN COPD CAD CHF prostate cancer s/p PPM former smoker Plan: - monitor pt off of AB RX - 05/05 Sp Ertapenem # 7/7 - 05/03 sp Vancomycin # 5 -04/28 SP Zosyn #8 -04/15 SP Levaquin #7 -04/08 SP Ceftriaxone x1, Azithromycin x1 -Monitor CBC/CMP, temperatures -aspiration precautions Thank you for this consultation. Will continue to follow along with you. Subjective Allergies: Coded Allergies: No Known Allergies (Unverified , 10/24/16) Subjective afebrile leukocytosis improved Objective Vital Signs Last 24 Hour Vital Signs Date Time Temp Pulse Resp B/P (MAP) Pulse Ox O2 Delivery O2 Flow Rate FiO2 05/08/19 12:30 Nasal Cannula 2.0 05/08/19 09:50 94 Nasal Cannula 3.0 32 05/08/19 09:00 Nasal Cannula 2.0 05/08/19 04:00 97.5 74 18 111/75 (87) 93 05/08/19 00:00 98.3 99 18 119/77 (91) 90 2/28/20 21:30 113 113/82 05/07/19 21:00 Nasal Cannula 2.0 05/07/19 20:00 97.9 95 18 113/82 (92) 90 05/07/19 19:52 92 Room Air 21 Height (Feet): 6 Height (Inches): 0.00 Weight (Pounds): 212 Objective General Appearance: no distress,confused HEENT: normocephalic, atraumatic Neck: supple Respiratory/Chest: chest wall non-tender, bibasilar ronchi Cardiovascular/Chest: no murmurs Extremities: normal range of motion Laboratory Tests Test 05/08/19 09:00 White Blood Count 11.7 K/UL (4.8-10.8) H Red Blood Count 4.50 M/UL (4.70-6.10) L Hemoglobin 13.5 G/DL (14.2-18.0) L Hematocrit 41.2 % (42.0-52.0) L Mean Corpuscular Volume 91 FL (80-99) Mean Corpuscular Hemoglobin 30.1 PG (27.0-31.0) Mean Corpuscular Hemoglobin Concent 32.9 G/DL (32.0-36.0) Red Cell Distribution Width 15.3 % (11.6-14.8) H Platelet Count 399 K/UL (150-450) Mean Platelet Volume 5.5 FL (6.5-10.1) L Neutrophils (%) (Auto) 61.2 % (45.0-75.0) Lymphocytes (%) (Auto) 29.6 % (20.0-45.0) Monocytes (%) (Auto) 4.9 % (1.0-10.0) Eosinophils (%) (Auto) 1.8 % (0.0-3.0) Basophils (%) (Auto) 2.4 % (0.0-2.0) H Erythrocyte Sedimentation Rate 105 MM/HR (0-20) H Sodium Level 139 MMOL/L (136-145) Potassium Level 4.2 MMOL/L (3.5-5.1) Chloride Level 101 MMOL/L (98-107) Carbon Dioxide Level 31 MMOL/L (21-32) Anion Gap 7 mmol/L (5-15) Blood Urea Nitrogen 28 mg/dL (7-18) H Creatinine 1.1 MG/DL (0.55-1.30) Estimat Glomerular Filtration Rate > 60 mL/min (>60) Glucose Level 162 MG/DL (74-106) H Calcium Level 9.1 MG/DL (8.5-10.1) Phosphorus Level 3.9 MG/DL (2.5-4.9) Magnesium Level 1.8 MG/DL (1.8-2.4) Total Bilirubin 0.2 MG/DL (0.2-1.0) Aspartate Amino Transf (AST/SGOT) 16 U/L (15-37) Alanine Aminotransferase (ALT/SGPT) 25 U/L (12-78) Alkaline Phosphatase 74 U/L (46-116) C-Reactive Protein, Quantitative < 0.4 mg/dL (0.00-0.90) Total Protein 6.5 G/DL (6.4-8.2) Albumin 3.0 G/DL (3.4-5.0) L Globulin 3.5 g/dL Albumin/Globulin Ratio 0.9 (1.0-2.7) L Current Medications Medications (Trade) Dose Ordered Sig/Dejon Route PRN Reason Start Time Stop Time Status Last Admin Dose Admin Acetaminophen (Tylenol) 650 mg Q4H PRN ORAL fever 05/01/19 19:14 05/31/19 19:13 05/02/19 01:18 Acetaminophen/ Hydrocodone Bitart ([place] 5/325) 1 tab Q6H PRN ORAL Severe Pain (Pain Scale 7-10) 05/07/19 15:30 05/14/19 15:29 05/08/19 03:27 Apixaban (Eliquis) 5 mg BID ORAL 05/02/19 09:00 06/06/19 08:59 05/07/19 18:57 Carvedilol (Coreg) 6.25 mg EVERY 12 HOURS ORAL 05/07/19 21:00 05/15/19 08:59 05/07/19 21:30 Clonidine HCl (Catapres Tab) 0.1 mg Q4H PRN ORAL sbp more than 160 05/01/19 19:14 05/31/19 19:13 Clotrimazole (Lotrimin) 1 applic THREE TIMES A DAY TOPIC 05/02/19 09:00 05/20/19 12:59 05/06/19 09:53 Dextrose (Dextrose 50%) 25 ml Q30M PRN IV Hypoglycemia 05/07/19 15:00 05/15/19 10:59 Dextrose (Dextrose 50%) 50 ml Q30M PRN IV Hypoglycemia 05/07/19 15:00 05/15/19 02:59 Docusate Sodium (Colace) 100 mg TWICE A DAY ORAL 05/02/19 09:00 05/31/19 08:59 05/07/19 18:57 Escitalopram Oxalate (Lexapro) 10 mg DAILY ORAL 05/02/19 09:00 05/27/19 08:59 05/07/19 09:22 Insulin Aspart (NovoLOG) BEFORE MEALS AND HS SUBQ 05/07/19 16:30 05/15/19 08:59 05/07/19 17:04 Insulin Aspart (NovoLOG) 8 units NOVOTIAC SUBQ 05/07/19 16:50 05/10/19 17:49 Insulin Detemir (Levemir) 24 units DAILY SUBQ 05/08/19 09:00 05/12/19 20:59 Levothyroxine Sodium (Synthroid) 75 mcg ACBREAKFAST ORAL 05/02/19 06:30 05/27/19 06:29 05/07/19 06:27 Levothyroxine Sodium (Synthroid) 100 mcg ACBREAKFAST ORAL 05/08/19 06:30 05/15/19 06:29 Nitroglycerin (Ntg) 0.4 mg Q5M X 3 DOSES PRN SL Prn Chest Pain 05/07/19 15:30 06/06/19 15:29 Ondansetron HCl (Zofran) 4 mg Q6H PRN IVP Nausea & Vomiting 05/01/19 19:16 05/31/19 19:15 Oxymetazoline HCl (Afrin Nasal [place]) 1 spray Q6H PRN NASAL nasal congestion 05/01/19 19:16 05/31/19 19:15 Pantoprazole (Protonix) 40 mg EVERY 12 HOURS ORAL 05/06/19 21:00 06/05/19 20:59 05/07/19 21:28 Polyethylene Glycol (Miralax) 17 gm BEDTIME ORAL 05/01/19 21:00 05/31/19 20:59 05/06/19 21:11 Promethazine HCl/ Codeine (Phenergan with Codeine) 5 ml Q6H PRN ORAL cough 05/01/19 19:17 05/31/19 19:16 05/04/19 21:01 Tamsulosin HCl (Flomax) 0.4 mg BEDTIME ORAL 05/07/19 21:00 05/15/19 20:59 05/07/19 21:28 An Villa M.D. May 08, 2019 16:07
[2019-05-08 20:00] VITALS: BP 109/70
[2019-05-08] MEDS: Miralax 17gm pkt ORAL SCH (21:00)
[2019-05-08] MEDS: Tamsulosin 0.4mg cap ORAL SCH (21:00)
[2019-05-08] MEDS: Albuterol/Ipratropium 3ml neb HHN PRN (22:40)
[2019-05-09] MEDS: NovoLOG Insulin Flexpen SUBQ SCH ×7 (06:30→21:55)
[2019-05-09 08:00] VITALS: BP 127/96
[2019-05-09] MEDS: HYDROcodone/Acetamin 5/325 tab ORAL PRN ×2 (08:39→17:35)
[2019-05-09] MEDS: Eliquis 5mg tablet ORAL SCH ×2 (08:40→17:36)
[2019-05-09] MEDS: Carvedilol 6.25mg Tab ORAL SCH ×2 (08:40→21:48)
[2019-05-09] MEDS: Docusate 100mg cap ORAL SCH ×2 (08:40→17:35)
[2019-05-09] MEDS: Levemir Flexpen SUBQ SCH (08:42)
--- NOTE | 2019-05-09 09:27 | General Progress Note ---
Assessment/Plan Problem List: (1) COPD exacerbation ICD Codes: J44.1 - Chronic obstructive pulmonary disease with (acute) exacerbation SNOMED: 354861123 (2) Respiratory failure with hypoxia ICD Codes: J96.91 - Respiratory failure, unspecified with hypoxia SNOMED: 01855264165154903 (3) Diabetes mellitus ICD Codes: E11.9 - Type 2 diabetes mellitus without complications SNOMED: 37907866 (4) Pacemaker ICD Codes: Z95.0 - Presence of cardiac pacemaker SNOMED: 184145831 (5) Prostate cancer ICD Codes: C61 - Malignant neoplasm of prostate SNOMED: 001358680 (6) Hypothyroid ICD Codes: E03.9 - Hypothyroidism, unspecified SNOMED: 14593423 Status: unchanged Assessment/Plan: continue Levemir 24 units qam continue Novolog 8 units ac tid continue NISS ac / hs continue Levothyroxine 175 mcg qam repeat thyroid function in 2 weeks Subjective Allergies: Coded Allergies: No Known Allergies (Unverified , 10/24/16) All Systems: reviewed and negative except above Subjective events noted Item Value Date Time Bedside Blood Glucose 144 mg/dl H 05/09/19 0842 Bedside Blood Glucose 144 mg/dl H 05/08/19 2112 Objective Last 24 Hour Vital Signs Date Time Temp Pulse Resp B/P (MAP) Pulse Ox O2 Delivery O2 Flow Rate FiO2 05/09/19 08:40 106 127/96 05/09/19 08:00 98.6 106 20 127/96 (106) 93 05/08/19 22:41 77 20 98 Room Air 21 79 20 93 05/08/19 22:40 94 Nasal Cannula 3.0 32 05/08/19 21:00 Nasal Cannula 2.0 05/08/19 21:00 82 109/70 05/08/19 20:00 97.8 82 19 109/70 (83) 90 05/08/19 12:30 Nasal Cannula 2.0 05/08/19 09:50 94 Nasal Cannula 3.0 32 Intake and Output 05/08/19 05/09/19 19:00 07:00 Intake Total 500 ml 620 ml Output Total 1100 ml 1400 ml Balance -600 ml -780 ml Intake Oral 500 ml 620 ml Output Urine Total 1100 ml 1400 ml # Bowel Movements 2 3 Height (Feet): 6 Height (Inches): 0.00 Weight (Pounds): 212 General Appearance: no apparent distress Neck: normal alignment Cardiovascular: normal rate Respiratory/Chest: decreased breath sounds Abdomen: normal bowel sounds Objective Current Medications Medications (Trade) Dose Ordered Sig/Dejon Route PRN Reason Start Time Stop Time Status Last Admin Dose Admin Acetaminophen (Tylenol) 650 mg Q4H PRN ORAL fever 05/01/19 19:14 05/31/19 19:13 05/02/19 01:18 Acetaminophen/ Hydrocodone Bitart ([place] 5/325) 1 tab Q6H PRN ORAL Severe Pain (Pain Scale 7-10) 05/07/19 15:30 05/14/19 15:29 05/09/19 08:39 Albuterol/ Ipratropium (Albuterol/ Ipratropium) 3 ml Q4H PRN HHN Shortness of Breath 05/08/19 22:15 05/13/19 22:14 05/08/19 22:40 Apixaban (Eliquis) 5 mg BID ORAL 05/02/19 09:00 06/06/19 08:59 05/09/19 08:40 Carvedilol (Coreg) 6.25 mg EVERY 12 HOURS ORAL 05/07/19 21:00 05/15/19 08:59 05/09/19 08:40 Clonidine HCl (Catapres Tab) 0.1 mg Q4H PRN ORAL sbp more than 160 05/01/19 19:14 05/31/19 19:13 Clotrimazole (Lotrimin) 1 applic THREE TIMES A DAY TOPIC 05/02/19 09:00 05/20/19 12:59 05/06/19 09:53 Dextrose (Dextrose 50%) 25 ml Q30M PRN IV Hypoglycemia 05/07/19 15:00 05/15/19 10:59 Dextrose (Dextrose 50%) 50 ml Q30M PRN IV Hypoglycemia 05/07/19 15:00 05/15/19 02:59 Docusate Sodium (Colace) 100 mg TWICE A DAY ORAL 05/02/19 09:00 05/31/19 08:59 05/09/19 08:40 Escitalopram Oxalate (Lexapro) 10 mg DAILY ORAL 05/02/19 09:00 05/27/19 08:59 05/09/19 08:39 Insulin Aspart (NovoLOG) BEFORE MEALS AND HS SUBQ 05/07/19 16:30 05/15/19 08:59 05/08/19 21:12 Insulin Aspart (NovoLOG) 8 units NOVOTIAC SUBQ 05/07/19 16:50 05/10/19 17:49 Insulin Detemir (Levemir) 24 units DAILY SUBQ 05/08/19 09:00 05/12/19 20:59 05/09/19 08:42 Levothyroxine Sodium (Synthroid) 75 mcg ACBREAKFAST ORAL 05/02/19 06:30 05/27/19 06:29 05/07/19 06:27 Levothyroxine Sodium (Synthroid) 100 mcg ACBREAKFAST ORAL 05/08/19 06:30 05/15/19 06:29 Nitroglycerin (Ntg) 0.4 mg Q5M X 3 DOSES PRN SL Prn Chest Pain 05/07/19 15:30 06/06/19 15:29 Ondansetron HCl (Zofran) 4 mg Q6H PRN IVP Nausea & Vomiting 05/01/19 19:16 05/31/19 19:15 Oxymetazoline HCl (Afrin Nasal [place]) 1 spray Q6H PRN NASAL nasal congestion 05/01/19 19:16 05/31/19 19:15 Pantoprazole (Protonix) 40 mg EVERY 12 HOURS ORAL 05/06/19 21:00 06/05/19 20:59 05/09/19 08:40 Polyethylene Glycol (Miralax) 17 gm BEDTIME ORAL 05/01/19 21:00 05/31/19 20:59 05/06/19 21:11 Promethazine HCl/ Codeine (Phenergan with Codeine) 5 ml Q6H PRN ORAL cough 05/01/19 19:17 05/31/19 19:16 05/04/19 21:01 Tamsulosin HCl (Flomax) 0.4 mg BEDTIME ORAL 05/07/19 21:00 05/15/19 20:59 05/08/19 21:00 Geovanni To MD May 09, 2019 09:27
[2019-05-09 12:00] VITALS: BP 118/76
--- NOTE | 2019-05-09 13:13 | Internal Med Progress Note ---
Subjective Date of Service: May 09, 2019 Physician Name Idris Lugo Attending Physician Jewel Giraldo MD Current Medications Medications (Trade) Dose Ordered Sig/Dejon Route PRN Reason Start Time Stop Time Status Last Admin Dose Admin Acetaminophen (Tylenol) 650 mg Q4H PRN ORAL fever 05/01/19 19:14 05/31/19 19:13 05/02/19 01:18 Acetaminophen/ Hydrocodone Bitart ([place] 5/325) 1 tab Q6H PRN ORAL Severe Pain (Pain Scale 7-10) 05/07/19 15:30 05/14/19 15:29 05/09/19 08:39 Albuterol/ Ipratropium (Albuterol/ Ipratropium) 3 ml Q4H PRN HHN Shortness of Breath 05/08/19 22:15 05/13/19 22:14 05/08/19 22:40 Apixaban (Eliquis) 5 mg BID ORAL 05/02/19 09:00 06/06/19 08:59 05/09/19 08:40 Carvedilol (Coreg) 6.25 mg EVERY 12 HOURS ORAL 05/07/19 21:00 05/15/19 08:59 05/09/19 08:40 Clonidine HCl (Catapres Tab) 0.1 mg Q4H PRN ORAL sbp more than 160 05/01/19 19:14 05/31/19 19:13 Clotrimazole (Lotrimin) 1 applic THREE TIMES A DAY TOPIC 05/02/19 09:00 05/20/19 12:59 05/06/19 09:53 Dextrose (Dextrose 50%) 25 ml Q30M PRN IV Hypoglycemia 05/07/19 15:00 05/15/19 10:59 Dextrose (Dextrose 50%) 50 ml Q30M PRN IV Hypoglycemia 05/07/19 15:00 05/15/19 02:59 Docusate Sodium (Colace) 100 mg TWICE A DAY ORAL 05/02/19 09:00 05/31/19 08:59 05/09/19 08:40 Escitalopram Oxalate (Lexapro) 10 mg DAILY ORAL 05/02/19 09:00 05/27/19 08:59 05/09/19 08:39 Insulin Aspart (NovoLOG) BEFORE MEALS AND HS SUBQ 05/07/19 16:30 05/15/19 08:59 05/09/19 12:07 Insulin Aspart (NovoLOG) 8 units NOVOTIAC SUBQ 05/07/19 16:50 05/10/19 17:49 05/09/19 12:08 Insulin Detemir (Levemir) 24 units DAILY SUBQ 05/08/19 09:00 05/12/19 20:59 05/09/19 08:42 Levothyroxine Sodium (Synthroid) 75 mcg ACBREAKFAST ORAL 05/02/19 06:30 05/27/19 06:29 05/07/19 06:27 Levothyroxine Sodium (Synthroid) 100 mcg ACBREAKFAST ORAL 05/08/19 06:30 05/15/19 06:29 Nitroglycerin (Ntg) 0.4 mg Q5M X 3 DOSES PRN SL Prn Chest Pain 05/07/19 15:30 06/06/19 15:29 Ondansetron HCl (Zofran) 4 mg Q6H PRN IVP Nausea & Vomiting 05/01/19 19:16 05/31/19 19:15 Oxymetazoline HCl (Afrin Nasal [place]) 1 spray Q6H PRN NASAL nasal congestion 05/01/19 19:16 05/31/19 19:15 Pantoprazole (Protonix) 40 mg EVERY 12 HOURS ORAL 05/06/19 21:00 06/05/19 20:59 05/09/19 08:40 Polyethylene Glycol (Miralax) 17 gm BEDTIME ORAL 05/01/19 21:00 05/31/19 20:59 05/06/19 21:11 Promethazine HCl/ Codeine (Phenergan with Codeine) 5 ml Q6H PRN ORAL cough 05/01/19 19:17 05/31/19 19:16 05/04/19 21:01 Tamsulosin HCl (Flomax) 0.4 mg BEDTIME ORAL 05/07/19 21:00 05/15/19 20:59 05/08/19 21:00 Allergies: Coded Allergies: No Known Allergies (Unverified , 10/24/16) ROS Limited/Unobtainable: No Constitutional: Reports: no symptoms HEENT: Reports: no symptoms Cardiovascular: Reports: no symptoms Respiratory: Reports: shortness of breath Gastrointestinal/Abdominal: Reports: no symptoms Genitourinary: Reports: no symptoms Neurologic/Psychiatric: Reports: no symptoms Subjective 73 YO M admitted with COPD exacerbation. Now respiratory failure and pneumonia. Cover for Int Med-DR Giraldo. S/P endoscopy 05/06/19 Objective Last Vital Signs Date Time Temp Pulse Resp B/P (MAP) Pulse Ox O2 Delivery O2 Flow Rate FiO2 05/09/19 12:00 97.9 72 21 118/76 (90) 87 05/09/19 09:00 Nasal Cannula 2.0 05/08/19 22:41 21 Intake and Output 05/08/19 05/09/19 19:00 07:00 Intake Total 500 ml 620 ml Output Total 1100 ml 1400 ml Balance -600 ml -780 ml Intake Oral 500 ml 620 ml Output Urine Total 1100 ml 1400 ml # Bowel Movements 2 3 Objective PHYSICAL EXAMINATION: GENERAL: The patient is awake, responsive, no acute distress. HEAD AND NECK: Pupils are equal and reactive to light. Extraocular muscles intact. Neck was supple. No JVD. LUNGS: BIPAP;The patient has expiratory wheezes noted. Tachypneic. No rhonchi was noted. HEART: S1, S2. Irregular. No murmur. The patient has a pacemaker in the left-sided chest wall. ABDOMEN: Soft, nondistended, nontender. Mildly obese. EXTREMITIES: No cyanosis, clubbing, edema. NEUROLOGIC: Cranial nerves II through XII grossly normal. Motor is 5/5 in all extremities. Gait is intact. GENITOURINARY: It was noted the patient has a [place] catheter. RECTAL: Refused and deferred. PSYCHIATRIC: Mood and affect is intact. Assessment/Plan Assessment/Plan ASSESSMENT: 1. Acute hypoxemic respiratory failure, most likely secondary to acute COPD exacerbation. 2. Acute COPD exacerbation. 3. Pneumonia. 4. Sick sinus syndrome status post pacemaker. 5. Diabetes type 2. 6. Prostate cancer. 7. Hyperkalemia. 8. Insulin induced hyperglycemia. 9. Prostate enlargement. 10. Leukocytosis 11. RBBB 12 Gastritis PLAN: 1. Med/Surg 2. D/C Solu-Medrol IV Per Pulmonary consult=Dr. Obrien. 3. Endocrinology=Dr To. Monitor blood glucose level closely. 4. antibiotic=S/P ertapenem and vanco. ID=Dr Villa 5. Code status is Full Code. DVT prophylaxis, he is on Eliquis. 6. S/P endoscopy 05/06/19=gastritis Discharge planning ?hospice eval? Idris Lugo MD May 09, 2019 13:13
[2019-05-09 20:00] VITALS: BP 119/81
[2019-05-09] MEDS: Albuterol/Ipratropium 3ml neb HHN PRN (20:05)
[2019-05-09] MEDS ORDERED: HYDROcodone/Acetamin 5/325 tab ORAL PRN (21:45)
[2019-05-09] MEDS: Tamsulosin 0.4mg cap ORAL SCH (21:48)
[2019-05-09] MEDS: Miralax 17gm pkt ORAL SCH ×2 (21:49→22:17)
[2019-05-10] VITALS: BP 98/61
[2019-05-10] MEDS: HYDROcodone/Acetamin 5/325 tab ORAL PRN ×2 (00:46→18:42)
[2019-05-10] MEDS: Albuterol/Ipratropium 3ml neb HHN PRN ×3 (01:09→21:31)
[2019-05-10 04:00] VITALS: BP 130/79
--- NOTE | 2019-05-10 06:37 | General Progress Note ---
Assessment/Plan Problem List: (1) COPD exacerbation ICD Codes: J44.1 - Chronic obstructive pulmonary disease with (acute) exacerbation SNOMED: 195240734 (2) Respiratory failure with hypoxia ICD Codes: J96.91 - Respiratory failure, unspecified with hypoxia SNOMED: 65543020174491178 (3) Diabetes mellitus ICD Codes: E11.9 - Type 2 diabetes mellitus without complications SNOMED: 09606464 (4) Pacemaker ICD Codes: Z95.0 - Presence of cardiac pacemaker SNOMED: 813198996 (5) Prostate cancer ICD Codes: C61 - Malignant neoplasm of prostate SNOMED: 346423596 (6) Hypothyroid ICD Codes: E03.9 - Hypothyroidism, unspecified SNOMED: 37955517 Status: unchanged Assessment/Plan: continue Levemir 24 units qam continue Novolog 8 units ac tid continue NISS ac / hs continue Levothyroxine 175 mcg qam repeat thyroid function in 2 weeks Subjective Allergies: Coded Allergies: No Known Allergies (Unverified , 10/24/16) All Systems: reviewed and negative except above Subjective events noted glucose values noted Item Value Date Time Bedside Blood Glucose 233 mg/dl H 05/10/19 0630 Bedside Blood Glucose 155 mg/dl H 05/09/19 2155 Bedside Blood Glucose 253 mg/dl H 05/09/19 1208 Bedside Blood Glucose 144 mg/dl H 05/09/19 0842 Objective Last 24 Hour Vital Signs Date Time Temp Pulse Resp B/P (MAP) Pulse Ox O2 Delivery O2 Flow Rate FiO2 05/10/19 05:35 73 20 95 Room Air 21 74 20 88 05/10/19 04:00 98.3 72 19 130/79 (96) 90 72 05/10/19 01:09 71 20 96 Room Air 21 69 20 94 05/10/19 00:00 98.3 71 20 98/61 (73) 92 71 05/09/19 21:48 73 119/81 05/09/19 21:00 Nasal Cannula 2.0 05/09/19 20:05 90 Room Air 21 05/09/19 20:05 68 20 94 Room Air 21 66 20 90 05/09/19 20:00 98.0 73 20 119/81 (94) 92 73 05/09/19 17:30 Nasal Cannula 2.0 05/09/19 12:00 97.9 72 21 118/76 (90) 87 05/09/19 09:00 Nasal Cannula 2.0 05/09/19 08:40 106 127/96 05/09/19 08:00 98.6 106 20 127/96 (106) 93 Intake and Output 05/09/19 05/10/19 19:00 07:00 Intake Total 940 ml 500 ml Output Total 1300 ml 800 ml Balance -360 ml -300 ml Intake Oral 940 ml 500 ml Output Urine Total 1300 ml 800 ml # Bowel Movements 2 Height (Feet): 6 Height (Inches): 0.00 Weight (Pounds): 212 General Appearance: no apparent distress Neck: normal alignment Cardiovascular: normal rate Respiratory/Chest: decreased breath sounds Abdomen: normal bowel sounds Pelvis: normal external exam Edema: 1+ Arm (L), 1+ Arm (R), 1+ Leg (L), 1+ Leg (R), 1+ Pedal (L), 1+ Pedal ( R), 1+ Generalized Objective Current Medications Medications (Trade) Dose Ordered Sig/Dejon Route PRN Reason Start Time Stop Time Status Last Admin Dose Admin Acetaminophen (Tylenol) 650 mg Q4H PRN ORAL fever 05/01/19 19:14 05/31/19 19:13 05/02/19 01:18 Acetaminophen/ Hydrocodone Bitart ([place] 5/325) 1 tab Q6H PRN ORAL Severe Pain (Pain Scale 7-10) 05/07/19 15:30 05/14/19 15:29 05/10/19 00:46 Albuterol/ Ipratropium (Albuterol/ Ipratropium) 3 ml Q4H PRN HHN Shortness of Breath 05/08/19 22:15 05/13/19 22:14 05/10/19 05:36 Apixaban (Eliquis) 5 mg BID ORAL 05/02/19 09:00 06/06/19 08:59 05/09/19 17:36 Carvedilol (Coreg) 6.25 mg EVERY 12 HOURS ORAL 05/07/19 21:00 05/15/19 08:59 05/09/19 21:48 Clonidine HCl (Catapres Tab) 0.1 mg Q4H PRN ORAL sbp more than 160 05/01/19 19:14 05/31/19 19:13 Clotrimazole (Lotrimin) 1 applic THREE TIMES A DAY TOPIC 05/02/19 09:00 05/20/19 12:59 05/06/19 09:53 Dextrose (Dextrose 50%) 25 ml Q30M PRN IV Hypoglycemia 05/07/19 15:00 05/15/19 10:59 Dextrose (Dextrose 50%) 50 ml Q30M PRN IV Hypoglycemia 05/07/19 15:00 05/15/19 02:59 Docusate Sodium (Colace) 100 mg TWICE A DAY ORAL 05/02/19 09:00 05/31/19 08:59 05/09/19 17:35 Escitalopram Oxalate (Lexapro) 10 mg DAILY ORAL 05/02/19 09:00 05/27/19 08:59 05/09/19 08:39 Insulin Aspart (NovoLOG) BEFORE MEALS AND HS SUBQ 05/07/19 16:30 05/15/19 08:59 05/09/19 21:55 Insulin Aspart (NovoLOG) 8 units NOVOTIAC SUBQ 05/07/19 16:50 05/10/19 17:49 05/09/19 12:08 Insulin Detemir (Levemir) 24 units DAILY SUBQ 05/08/19 09:00 05/12/19 20:59 05/09/19 08:42 Levothyroxine Sodium (Synthroid) 75 mcg ACBREAKFAST ORAL 05/02/19 06:30 05/27/19 06:29 05/10/19 06:02 Levothyroxine Sodium (Synthroid) 100 mcg ACBREAKFAST ORAL 05/08/19 06:30 05/15/19 06:29 05/10/19 06:02 Nitroglycerin (Ntg) 0.4 mg Q5M X 3 DOSES PRN SL Prn Chest Pain 05/07/19 15:30 06/06/19 15:29 Ondansetron HCl (Zofran) 4 mg Q6H PRN IVP Nausea & Vomiting 05/01/19 19:16 05/31/19 19:15 Oxymetazoline HCl (Afrin Nasal [place]) 1 spray Q6H PRN NASAL nasal congestion 05/01/19 19:16 05/31/19 19:15 Pantoprazole (Protonix) 40 mg EVERY 12 HOURS ORAL 05/06/19 21:00 06/05/19 20:59 3/1/20 21:49 Polyethylene Glycol (Miralax) 17 gm BEDTIME ORAL 05/01/19 21:00 05/31/19 20:59 05/09/19 21:49 Promethazine HCl/ Codeine (Phenergan with Codeine) 5 ml Q6H PRN ORAL cough 05/01/19 19:17 05/31/19 19:16 05/04/19 21:01 Tamsulosin HCl (Flomax) 0.4 mg BEDTIME ORAL 05/07/19 21:00 05/15/19 20:59 05/09/19 21:48 Geovanni To MD May 10, 2019 06:37
[2019-05-10] MEDS: NovoLOG Insulin Flexpen SUBQ SCH ×7 (07:24→21:00)
[2019-05-10 08:00] VITALS: BP 105/75
[2019-05-10] MEDS: Eliquis 5mg tablet ORAL SCH ×2 (08:56→18:22)
[2019-05-10] MEDS: Carvedilol 6.25mg Tab ORAL SCH ×2 (08:56→21:18)
[2019-05-10] MEDS: Docusate 100mg cap ORAL SCH ×2 (09:00→18:00)
[2019-05-10] MEDS: Levemir Flexpen SUBQ SCH (09:02)
--- NOTE | 2019-05-10 10:20 | General Progress Note ---
Assessment/Plan Status: unchanged Assessment/Plan: Assessment/Plan Problems: (1) Diabetes mellitus ICD Codes: E11.9 - Type 2 diabetes mellitus without complications SNOMED: 81778499 (2) Anemia ICD Codes: D64.9 - Anemia, unspecified Assessment/Plan This is a 73-year-old male with COPD exacerbation and new-onset diabetes given hemoglobin A1c is high. s/p EGD stable H&H fu biopsy results needs out patient fu fo colonoscopy Subjective ROS Limited/Unobtainable: No Allergies: Coded Allergies: No Known Allergies (Unverified , 10/24/16) Objective Last 24 Hour Vital Signs Date Time Temp Pulse Resp B/P (MAP) Pulse Ox O2 Delivery O2 Flow Rate FiO2 05/10/19 09:00 Room Air 05/10/19 08:56 112 126/89 05/10/19 08:00 97.9 102 18 105/75 (85) 90 05/10/19 05:35 73 20 95 Room Air 21 74 20 88 05/10/19 04:00 98.3 72 19 130/79 (96) 90 72 05/10/19 01:09 71 20 96 Room Air 21 69 20 94 05/10/19 00:00 98.3 71 20 98/61 (73) 92 71 05/09/19 21:48 73 119/81 05/09/19 21:00 Nasal Cannula 2.0 05/09/19 20:05 90 Room Air 21 05/09/19 20:05 68 20 94 Room Air 21 66 20 90 05/09/19 20:00 98.0 73 20 119/81 (94) 92 73 05/09/19 17:30 Nasal Cannula 2.0 05/09/19 12:00 97.9 72 21 118/76 (90) 87 Intake and Output 05/09/19 05/10/19 19:00 07:00 Intake Total 940 ml 500 ml Output Total 1300 ml 800 ml Balance -360 ml -300 ml Intake Oral 940 ml 500 ml Output Urine Total 1300 ml 800 ml # Bowel Movements 2 Height (Feet): 6 Height (Inches): 0.00 Weight (Pounds): 212 General Appearance: no apparent distress EENT: PERRL/EOMI Neck: supple Cardiovascular: normal rate Respiratory/Chest: decreased breath sounds Abdomen: normal bowel sounds, non tender, soft Extremities: non-tender Vosoghi,Christiano MD May 10, 2019 10:20
[2019-05-10 11:34] VITALS: BP 110/72
--- NOTE | 2019-05-10 13:22 | Infectious Diseases Prog Note ---
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 No focal airspace consolidation. There is some atelectasis at the left lung base. -04/27 CXR: Borderline cardiomegaly. Questionable mild interstitial congestion , new or increased from previous study if real. -04/21 CTA chest:Somewhat limited exam, due to motion artifact. No definite evidence of pulmonary embolus or other acute thoracic vascular pathology. Borderline cardiomegaly. Diffuse bilateral pulmonary parenchymal groundglass opacity. Interspersed small bullae digestive this is due to COPD changes, but could also indicate a component of pulmonary edema. Considerable consolidation in the right lower lobe, likely pneumonia. Less extensive consolidation and atelectasis is seen at the left lung base. Pacemaker, degenerative spondylosis incidentally noted sp cx normal resp michael -04/19 CXR: Mild pulmonary vascular congestion -04/16 CXR: No acute disease -04/13 CXR: Suspected mild pulmonary vascular congestion. Correlate clinically -04/08 CXR: Mild pulmonary vascular congestion suspected Afebrile Leukocytosis,(pn steroids); improving Hyperglycemia Acute hypoxic respiratory failure ,on bipap PRN COPD CAD CHF prostate cancer s/p PPM former smoker Plan: - monitor pt off of AB RX - 05/05 Sp Ertapenem # 7/7 - 05/03 sp Vancomycin # 5 -04/28 SP Zosyn #8 -04/15 SP Levaquin #7 -04/08 SP Ceftriaxone x1, Azithromycin x1 -Monitor CBC/CMP, temperatures -aspiration precautions Thank you for this consultation. Will continue to follow along with you. Subjective Allergies: Coded Allergies: No Known Allergies (Unverified , 10/24/16) Subjective afebrile on steroids Objective Vital Signs Last 24 Hour Vital Signs Date Time Temp Pulse Resp B/P (MAP) Pulse Ox O2 Delivery O2 Flow Rate FiO2 05/10/19 11:34 98.0 90 18 110/72 (85) 90 05/10/19 09:00 Room Air 05/10/19 09:00 92 Room Air 21 05/10/19 08:56 112 126/89 05/10/19 08:00 97.9 102 18 105/75 (85) 90 05/10/19 05:35 73 20 95 Room Air 21 74 20 88 05/10/19 04:00 98.3 72 19 130/79 (96) 90 72 05/10/19 01:09 71 20 96 Room Air 21 69 20 94 05/10/19 00:00 98.3 71 20 98/61 (73) 92 71 05/09/19 21:48 73 119/81 05/09/19 21:00 Nasal Cannula 2.0 05/09/19 20:05 90 Room Air 21 05/09/19 20:05 68 20 94 Room Air 21 66 20 90 05/09/19 20:00 98.0 73 20 119/81 (94) 92 73 05/09/19 17:30 Nasal Cannula 2.0 Height (Feet): 6 Height (Inches): 0.00 Weight (Pounds): 212 HEENT: anicteric Respiratory/Chest: no respiratory distress Cardiovascular: regular rhythm Abdomen: no organomegaly Current Medications Medications (Trade) Dose Ordered Sig/Dejon Route PRN Reason Start Time Stop Time Status Last Admin Dose Admin Acetaminophen (Tylenol) 650 mg Q4H PRN ORAL fever 05/01/19 19:14 05/31/19 19:13 05/02/19 01:18 Acetaminophen/ Hydrocodone Bitart ([place] 5/325) 1 tab Q6H PRN ORAL Severe Pain (Pain Scale 7-10) 05/07/19 15:30 05/14/19 15:29 05/10/19 00:46 Albuterol/ Ipratropium (Albuterol/ Ipratropium) 3 ml Q4H PRN HHN Shortness of Breath 05/08/19 22:15 05/13/19 22:14 05/10/19 05:36 Apixaban (Eliquis) 5 mg BID ORAL 05/02/19 09:00 06/06/19 08:59 05/10/19 08:56 Carvedilol (Coreg) 6.25 mg EVERY 12 HOURS ORAL 05/07/19 21:00 05/15/19 08:59 05/10/19 08:56 Clonidine HCl (Catapres Tab) 0.1 mg Q4H PRN ORAL sbp more than 160 05/01/19 19:14 05/31/19 19:13 Clotrimazole (Lotrimin) 1 applic THREE TIMES A DAY TOPIC 05/02/19 09:00 05/20/19 12:59 05/10/19 08:56 Dextrose (Dextrose 50%) 25 ml Q30M PRN IV Hypoglycemia 05/07/19 15:00 05/15/19 10:59 Dextrose (Dextrose 50%) 50 ml Q30M PRN IV Hypoglycemia 05/07/19 15:00 05/15/19 02:59 Docusate Sodium (Colace) 100 mg TWICE A DAY ORAL 05/02/19 09:00 05/31/19 08:59 05/09/19 17:35 Escitalopram Oxalate (Lexapro) 10 mg DAILY ORAL 05/02/19 09:00 05/27/19 08:59 05/10/19 08:55 Insulin Aspart (NovoLOG) BEFORE MEALS AND HS SUBQ 05/07/19 16:30 05/15/19 08:59 05/10/19 12:42 Insulin Aspart (NovoLOG) 8 units NOVOTIAC SUBQ 05/07/19 16:50 05/10/19 17:49 05/10/19 12:42 Insulin Detemir (Levemir) 24 units DAILY SUBQ 05/08/19 09:00 05/12/19 20:59 05/10/19 09:02 Levothyroxine Sodium (Synthroid) 75 mcg ACBREAKFAST ORAL 05/02/19 06:30 05/27/19 06:29 05/10/19 06:02 Levothyroxine Sodium (Synthroid) 100 mcg ACBREAKFAST ORAL 05/08/19 06:30 05/15/19 06:29 05/10/19 06:02 Nitroglycerin (Ntg) 0.4 mg Q5M X 3 DOSES PRN SL Prn Chest Pain 05/07/19 15:30 06/06/19 15:29 Ondansetron HCl (Zofran) 4 mg Q6H PRN IVP Nausea & Vomiting 05/01/19 19:16 05/31/19 19:15 Oxymetazoline HCl (Afrin Nasal [place]) 1 spray Q6H PRN NASAL nasal congestion 05/01/19 19:16 05/31/19 19:15 Pantoprazole (Protonix) 40 mg EVERY 12 HOURS ORAL 05/06/19 21:00 06/05/19 20:59 05/10/19 08:56 Polyethylene Glycol (Miralax) 17 gm BEDTIME ORAL 05/01/19 21:00 05/31/19 20:59 05/09/19 21:49 Promethazine HCl/ Codeine (Phenergan with Codeine) 5 ml Q6H PRN ORAL cough 05/01/19 19:17 05/31/19 19:16 05/04/19 21:01 Tamsulosin HCl (Flomax) 0.4 mg BEDTIME ORAL 05/07/19 21:00 05/15/19 20:59 05/09/19 21:48 Robert Canela MD May 10, 2019 13:22
--- NOTE | 2019-05-10 13:30 | Pulmonology Progress Note ---
Assessment/Plan Problems: (1) Nosocomial pneumonia (2) Respiratory failure with hypoxia (3) COPD exacerbation (4) Pacemaker (5) Diabetes mellitus (6) Prostate cancer Assessment/Plan getting better on nasal cannula now on and off bipap sputum showing dale again dc steroids high wbc , steroids were held long time ago still short of breath, loud rhonchi He wanted to go home on Friday, but now, he wants to stay until biopsy results are back and colonoscopy is done here. Subjective Interval Events: pt thinks he has bladder infection. C/o bad odor of his urine. Allergies: Coded Allergies: No Known Allergies (Unverified , 10/24/16) Objective Last 24 Hour Vital Signs Date Time Temp Pulse Resp B/P (MAP) Pulse Ox O2 Delivery O2 Flow Rate FiO2 05/10/19 11:34 98.0 90 18 110/72 (85) 90 05/10/19 09:00 Room Air 05/10/19 09:00 92 Room Air 21 05/10/19 08:56 112 126/89 05/10/19 08:00 97.9 102 18 105/75 (85) 90 05/10/19 05:35 73 20 95 Room Air 21 74 20 88 05/10/19 04:00 98.3 72 19 130/79 (96) 90 72 05/10/19 01:09 71 20 96 Room Air 21 69 20 94 05/10/19 00:00 98.3 71 20 98/61 (73) 92 71 05/09/19 21:48 73 119/81 05/09/19 21:00 Nasal Cannula 2.0 05/09/19 20:05 90 Room Air 21 05/09/19 20:05 68 20 94 Room Air 21 66 20 90 05/09/19 20:00 98.0 73 20 119/81 (94) 92 73 05/09/19 17:30 Nasal Cannula 2.0 Intake and Output 05/09/19 05/10/19 19:00 07:00 Intake Total 940 ml 500 ml Output Total 1300 ml 800 ml Balance -360 ml -300 ml Intake Oral 940 ml 500 ml Output Urine Total 1300 ml 800 ml # Bowel Movements 2 General Appearance: WD/WN HEENT: normocephalic, atraumatic Respiratory/Chest: chest wall non-tender, lungs clear Cardiovascular: normal peripheral pulses, normal rate Abdomen: normal bowel sounds, no organomegaly Genitourinary: normal external genitalia Extremities: no clubbing Skin: no lesions Current Medications Medications (Trade) Dose Ordered Sig/Dejon Route PRN Reason Start Time Stop Time Status Last Admin Dose Admin Acetaminophen (Tylenol) 650 mg Q4H PRN ORAL fever 05/01/19 19:14 05/31/19 19:13 05/02/19 01:18 Acetaminophen/ Hydrocodone Bitart ([place] 5/325) 1 tab Q6H PRN ORAL Severe Pain (Pain Scale 7-10) 05/07/19 15:30 05/14/19 15:29 05/10/19 00:46 Albuterol/ Ipratropium (Albuterol/ Ipratropium) 3 ml Q4H PRN HHN Shortness of Breath 05/08/19 22:15 05/13/19 22:14 05/10/19 05:36 Apixaban (Eliquis) 5 mg BID ORAL 05/02/19 09:00 06/06/19 08:59 05/10/19 08:56 Carvedilol (Coreg) 6.25 mg EVERY 12 HOURS ORAL 05/07/19 21:00 05/15/19 08:59 05/10/19 08:56 Clonidine HCl (Catapres Tab) 0.1 mg Q4H PRN ORAL sbp more than 160 05/01/19 19:14 05/31/19 19:13 Clotrimazole (Lotrimin) 1 applic THREE TIMES A DAY TOPIC 05/02/19 09:00 05/20/19 12:59 05/10/19 08:56 Dextrose (Dextrose 50%) 25 ml Q30M PRN IV Hypoglycemia 05/07/19 15:00 05/15/19 10:59 Dextrose (Dextrose 50%) 50 ml Q30M PRN IV Hypoglycemia 05/07/19 15:00 05/15/19 02:59 Docusate Sodium (Colace) 100 mg TWICE A DAY ORAL 05/02/19 09:00 05/31/19 08:59 05/09/19 17:35 Escitalopram Oxalate (Lexapro) 10 mg DAILY ORAL 05/02/19 09:00 05/27/19 08:59 05/10/19 08:55 Insulin Aspart (NovoLOG) BEFORE MEALS AND HS SUBQ 05/07/19 16:30 3/7/20 08:59 05/10/19 12:42 Insulin Aspart (NovoLOG) 8 units NOVOTIAC SUBQ 05/07/19 16:50 05/10/19 17:49 05/10/19 12:42 Insulin Detemir (Levemir) 24 units DAILY SUBQ 05/08/19 09:00 05/12/19 20:59 05/10/19 09:02 Levothyroxine Sodium (Synthroid) 75 mcg ACBREAKFAST ORAL 05/02/19 06:30 05/27/19 06:29 05/10/19 06:02 Levothyroxine Sodium (Synthroid) 100 mcg ACBREAKFAST ORAL 05/08/19 06:30 05/15/19 06:29 05/10/19 06:02 Nitroglycerin (Ntg) 0.4 mg Q5M X 3 DOSES PRN SL Prn Chest Pain 05/07/19 15:30 06/06/19 15:29 Ondansetron HCl (Zofran) 4 mg Q6H PRN IVP Nausea & Vomiting 05/01/19 19:16 05/31/19 19:15 Oxymetazoline HCl (Afrin Nasal [place]) 1 spray Q6H PRN NASAL nasal congestion 05/01/19 19:16 05/31/19 19:15 Pantoprazole (Protonix) 40 mg EVERY 12 HOURS ORAL 05/06/19 21:00 06/05/19 20:59 05/10/19 08:56 Polyethylene Glycol (Miralax) 17 gm BEDTIME ORAL 05/01/19 21:00 05/31/19 20:59 05/09/19 21:49 Promethazine HCl/ Codeine (Phenergan with Codeine) 5 ml Q6H PRN ORAL cough 05/01/19 19:17 05/31/19 19:16 05/04/19 21:01 Tamsulosin HCl (Flomax) 0.4 mg BEDTIME ORAL 05/07/19 21:00 05/15/19 20:59 05/09/19 21:48 Goldie Obrien MD May 10, 2019 13:30
[2019-05-10 15:46] VITALS: BP 104/72
--- NOTE | 2019-05-10 19:20 | Internal Med Progress Note ---
Subjective Date of Service: May 10, 2019 Physician Name Idris Lugo Attending Physician Jewel Giraldo MD Current Medications Medications (Trade) Dose Ordered Sig/Dejon Route PRN Reason Start Time Stop Time Status Last Admin Dose Admin Acetaminophen (Tylenol) 650 mg Q4H PRN ORAL fever 05/01/19 19:14 05/31/19 19:13 05/02/19 01:18 Acetaminophen/ Hydrocodone Bitart ([place] 5/325) 1 tab Q6H PRN ORAL Severe Pain (Pain Scale 7-10) 05/07/19 15:30 05/14/19 15:29 05/10/19 18:42 Albuterol/ Ipratropium (Albuterol/ Ipratropium) 3 ml Q4H PRN HHN Shortness of Breath 05/08/19 22:15 05/13/19 22:14 05/10/19 05:36 Apixaban (Eliquis) 5 mg BID ORAL 05/02/19 09:00 06/06/19 08:59 05/10/19 18:22 Carvedilol (Coreg) 6.25 mg EVERY 12 HOURS ORAL 05/07/19 21:00 05/15/19 08:59 05/10/19 08:56 Clonidine HCl (Catapres Tab) 0.1 mg Q4H PRN ORAL sbp more than 160 05/01/19 19:14 05/31/19 19:13 Clotrimazole (Lotrimin) 1 applic THREE TIMES A DAY TOPIC 05/02/19 09:00 05/20/19 12:59 05/10/19 08:56 Dextrose (Dextrose 50%) 25 ml Q30M PRN IV Hypoglycemia 05/07/19 15:00 05/15/19 10:59 Dextrose (Dextrose 50%) 50 ml Q30M PRN IV Hypoglycemia 05/07/19 15:00 05/15/19 02:59 Docusate Sodium (Colace) 100 mg TWICE A DAY ORAL 05/02/19 09:00 05/31/19 08:59 05/09/19 17:35 Escitalopram Oxalate (Lexapro) 10 mg DAILY ORAL 05/02/19 09:00 05/27/19 08:59 05/10/19 08:55 Insulin Aspart (NovoLOG) BEFORE MEALS AND HS SUBQ 05/07/19 16:30 05/15/19 08:59 05/10/19 12:42 Insulin Detemir (Levemir) 24 units DAILY SUBQ 05/08/19 09:00 05/12/19 20:59 05/10/19 09:02 Levothyroxine Sodium (Synthroid) 75 mcg ACBREAKFAST ORAL 05/02/19 06:30 05/27/19 06:29 05/10/19 06:02 Levothyroxine Sodium (Synthroid) 100 mcg ACBREAKFAST ORAL 05/08/19 06:30 05/15/19 06:29 05/10/19 06:02 Nitroglycerin (Ntg) 0.4 mg Q5M X 3 DOSES PRN SL Prn Chest Pain 05/07/19 15:30 06/06/19 15:29 Ondansetron HCl (Zofran) 4 mg Q6H PRN IVP Nausea & Vomiting 05/01/19 19:16 05/31/19 19:15 Oxymetazoline HCl (Afrin Nasal [place]) 1 spray Q6H PRN NASAL nasal congestion 05/01/19 19:16 05/31/19 19:15 Pantoprazole (Protonix) 40 mg EVERY 12 HOURS ORAL 05/06/19 21:00 06/05/19 20:59 05/10/19 08:56 Polyethylene Glycol (Miralax) 17 gm BEDTIME ORAL 05/01/19 21:00 05/31/19 20:59 05/09/19 21:49 Promethazine HCl/ Codeine (Phenergan with Codeine) 5 ml Q6H PRN ORAL cough 05/01/19 19:17 05/31/19 19:16 05/04/19 21:01 Tamsulosin HCl (Flomax) 0.4 mg BEDTIME ORAL 05/07/19 21:00 05/15/19 20:59 05/09/19 21:48 Allergies: Coded Allergies: No Known Allergies (Unverified , 10/24/16) ROS Limited/Unobtainable: No Constitutional: Reports: no symptoms HEENT: Reports: no symptoms Cardiovascular: Reports: no symptoms Respiratory: Reports: shortness of breath, wheezing Gastrointestinal/Abdominal: Reports: no symptoms Genitourinary: Reports: no symptoms Neurologic/Psychiatric: Reports: no symptoms Subjective 73 YO M admitted with COPD exacerbation. Now respiratory failure and pneumonia. Cover for Int Med-DR Giraldo. S/P endoscopy 05/06/19 Objective Last Vital Signs Date Time Temp Pulse Resp B/P (MAP) Pulse Ox O2 Delivery O2 Flow Rate FiO2 05/10/19 15:46 96.6 70 18 104/72 (83) 89 05/10/19 09:00 Room Air 05/10/19 09:00 21 05/09/19 21:00 2.0 Intake and Output 05/09/19 05/10/19 19:00 07:00 Intake Total 940 ml 500 ml Output Total 1300 ml 800 ml Balance -360 ml -300 ml Intake Oral 940 ml 500 ml Output Urine Total 1300 ml 800 ml # Bowel Movements 2 Objective PHYSICAL EXAMINATION: GENERAL: The patient is awake, responsive, no acute distress. HEAD AND NECK: Pupils are equal and reactive to light. Extraocular muscles intact. Neck was supple. No JVD. LUNGS: BIPAP;The patient has expiratory wheezes noted. Tachypneic. No rhonchi was noted. HEART: S1, S2. Irregular. No murmur. The patient has a pacemaker in the left-sided chest wall. ABDOMEN: Soft, nondistended, nontender. Mildly obese. EXTREMITIES: No cyanosis, clubbing, edema. NEUROLOGIC: Cranial nerves II through XII grossly normal. Motor is 5/5 in all extremities. Gait is intact. GENITOURINARY: It was noted the patient has a [place] catheter. RECTAL: Refused and deferred. PSYCHIATRIC: Mood and affect is intact. Assessment/Plan Assessment/Plan ASSESSMENT: 1. Acute hypoxemic respiratory failure, most likely secondary to acute COPD exacerbation. 2. Acute COPD exacerbation. 3. Pneumonia. 4. Sick sinus syndrome status post pacemaker. 5. Diabetes type 2. 6. Prostate cancer. 7. Hyperkalemia. 8. Insulin induced hyperglycemia. 9. Prostate enlargement. 10. Leukocytosis 11. RBBB 12 Gastritis PLAN: 1. Med/Surg 2. D/C Solu-Medrol IV Per Pulmonary consult=Dr. Obrien. 3. Endocrinology=Dr To. Monitor blood glucose level closely. 4. antibiotic=S/P ertapenem and vanco. ID=Dr Villa 5. Code status is Full Code. DVT prophylaxis, he is on Eliquis. 6. S/P endoscopy 05/06/19=gastritis Discharge planning ?hospice eval? Idris Lugo MD May 10, 2019 19:20
[2019-05-10 20:00] VITALS: BP 115/73
[2019-05-10] MEDS: Tamsulosin 0.4mg cap ORAL SCH (21:18)
--- NOTE | 2019-05-11 02:01 | Progress Note ---
SUBJECTIVE: The patient is still refusing to leave. He is irritable and hostile towards the staff, refusing care. When I went into the room, he was very hostile and rude. He is easily agitated. MENTAL STATUS EXAMINATION: Alert and oriented times self, place, and situation. Mood is irritable and angry. Affect is flat. Thought process is concrete. Thought content, no suicidal or homicidal ideation. Cognition is impaired. Insight and judgment is impaired. ASSESSMENT: Antisocial personality. PLAN: 1. Continue the antidepressant that may help his irritability and moodiness. 2. The patient is not an imminent danger to self or others. He should be discharged. Ottoniel Hillman M.D. DR: OLEG JOB#: [id number] CC:
[2019-05-11] MEDS: Albuterol/Ipratropium 3ml neb HHN PRN ×2 (04:42→20:29)
--- NOTE | 2019-05-11 06:21 | General Progress Note ---
Assessment/Plan Problem List: (1) COPD exacerbation ICD Codes: J44.1 - Chronic obstructive pulmonary disease with (acute) exacerbation SNOMED: 909069418 (2) Respiratory failure with hypoxia ICD Codes: J96.91 - Respiratory failure, unspecified with hypoxia SNOMED: 56241454414991413 (3) Diabetes mellitus ICD Codes: E11.9 - Type 2 diabetes mellitus without complications SNOMED: 53676854 (4) Pacemaker ICD Codes: Z95.0 - Presence of cardiac pacemaker SNOMED: 906241991 (5) Prostate cancer ICD Codes: C61 - Malignant neoplasm of prostate SNOMED: 843127603 (6) Hypothyroid ICD Codes: E03.9 - Hypothyroidism, unspecified SNOMED: 12748560 Status: unchanged Assessment/Plan: continue Levemir 24 units qam continue NISS ac / hs continue Levothyroxine 175 mcg qam repeat thyroid function in 2 weeks Subjective ROS Limited/Unobtainable: Yes Allergies: Coded Allergies: No Known Allergies (Unverified , 10/24/16) Subjective events noted patient wants to stay until biopsy results are back and colonoscopy is done here hostile behavior towards staff Item Value Date Time Bedside Blood Glucose 82 mg/dl 05/10/19 1825 Bedside Blood Glucose 172 mg/dl H 05/10/19 1242 Bedside Blood Glucose 233 mg/dl H 05/10/19 0902 Bedside Blood Glucose 233 mg/dl H 05/10/19 0630 Objective Last 24 Hour Vital Signs Date Time Temp Pulse Resp B/P (MAP) Pulse Ox O2 Delivery O2 Flow Rate FiO2 05/11/19 04:42 82 20 96 Nasal Cannula 2.0 28 80 20 94 05/10/19 21:32 86 20 97 Nasal Cannula 2.0 28 83 20 96 05/10/19 21:18 76 115/79 05/10/19 21:00 Nasal Cannula 2.0 05/10/19 20:00 96 Nasal Cannula 2.0 28 05/10/19 20:00 97.8 76 17 115/73 (87) 91 05/10/19 15:46 96.6 70 18 104/72 (83) 89 05/10/19 11:34 98.0 90 18 110/72 (85) 90 05/10/19 09:00 Room Air 05/10/19 09:00 92 Room Air 21 05/10/19 08:56 112 126/89 3/2/20 08:00 97.9 102 18 105/75 (85) 90 Intake and Output 05/10/19 05/11/19 19:00 07:00 Intake Total 600 ml 440 ml Output Total 2000 ml 1750 ml Balance -1400 ml -1310 ml Intake Oral 600 ml 440 ml Output Urine Total 2000 ml 1750 ml # Bowel Movements 1 Height (Feet): 6 Height (Inches): 0.00 Weight (Pounds): 212 General Appearance: no apparent distress Neck: normal alignment Cardiovascular: normal rate Respiratory/Chest: decreased breath sounds Abdomen: normal bowel sounds Objective Current Medications Medications (Trade) Dose Ordered Sig/Dejon Route PRN Reason Start Time Stop Time Status Last Admin Dose Admin Acetaminophen (Tylenol) 650 mg Q4H PRN ORAL fever 05/01/19 19:14 05/31/19 19:13 05/02/19 01:18 Acetaminophen/ Hydrocodone Bitart ([place] 5/325) 1 tab Q6H PRN ORAL Severe Pain (Pain Scale 7-10) 05/07/19 15:30 05/14/19 15:29 05/10/19 18:42 Albuterol/ Ipratropium (Albuterol/ Ipratropium) 3 ml Q4H PRN HHN Shortness of Breath 05/08/19 22:15 05/13/19 22:14 05/11/19 04:42 Apixaban (Eliquis) 5 mg BID ORAL 05/02/19 09:00 06/06/19 08:59 05/10/19 18:22 Carvedilol (Coreg) 6.25 mg EVERY 12 HOURS ORAL 05/07/19 21:00 05/15/19 08:59 05/10/19 21:18 Clonidine HCl (Catapres Tab) 0.1 mg Q4H PRN ORAL sbp more than 160 05/01/19 19:14 05/31/19 19:13 Clotrimazole (Lotrimin) 1 applic THREE TIMES A DAY TOPIC 05/02/19 09:00 05/20/19 12:59 05/10/19 08:56 Dextrose (Dextrose 50%) 25 ml Q30M PRN IV Hypoglycemia 05/07/19 15:00 05/15/19 10:59 Dextrose (Dextrose 50%) 50 ml Q30M PRN IV Hypoglycemia 05/07/19 15:00 05/15/19 02:59 Docusate Sodium (Colace) 100 mg TWICE A DAY ORAL 05/02/19 09:00 05/31/19 08:59 05/09/19 17:35 Escitalopram Oxalate (Lexapro) 10 mg DAILY ORAL 05/02/19 09:00 05/27/19 08:59 05/10/19 08:55 Insulin Aspart (NovoLOG) BEFORE MEALS AND HS SUBQ 05/07/19 16:30 05/15/19 08:59 05/10/19 12:42 Insulin Detemir (Levemir) 24 units DAILY SUBQ 05/08/19 09:00 05/12/19 20:59 05/10/19 09:02 Levothyroxine Sodium (Synthroid) 75 mcg ACBREAKFAST ORAL 05/02/19 06:30 05/27/19 06:29 05/10/19 06:02 Levothyroxine Sodium (Synthroid) 100 mcg ACBREAKFAST ORAL 05/08/19 06:30 05/15/19 06:29 05/10/19 06:02 Nitroglycerin (Ntg) 0.4 mg Q5M X 3 DOSES PRN SL Prn Chest Pain 05/07/19 15:30 06/06/19 15:29 Ondansetron HCl (Zofran) 4 mg Q6H PRN IVP Nausea & Vomiting 05/01/19 19:16 05/31/19 19:15 Oxymetazoline HCl (Afrin Nasal [place]) 1 spray Q6H PRN NASAL nasal congestion 05/01/19 19:16 05/31/19 19:15 Pantoprazole (Protonix) 40 mg EVERY 12 HOURS ORAL 05/06/19 21:00 06/05/19 20:59 05/10/19 21:18 Polyethylene Glycol (Miralax) 17 gm BEDTIME ORAL 05/01/19 21:00 05/31/19 20:59 05/09/19 21:49 Promethazine HCl/ Codeine (Phenergan with Codeine) 5 ml Q6H PRN ORAL cough 05/01/19 19:17 05/31/19 19:16 05/04/19 21:01 Tamsulosin HCl (Flomax) 0.4 mg BEDTIME ORAL 05/07/19 21:00 05/15/19 20:59 05/10/19 21:18 Geovanni To MD May 11, 2019 06:21
[2019-05-11] MEDS: NovoLOG Insulin Flexpen SUBQ SCH ×4 (06:30→20:52)
[2019-05-11 08:00] VITALS: BP 117/78
[2019-05-11 08:25] LABS: BASOPHILS % (AUTO) 1.9 % (0.0-2.0); EOSINOPHILS % (AUTO) 6.9 % (0.0-3.0); HEMATOCRIT 46.3 % (42.0-52.0); HEMOGLOBIN 15.2 G/DL (14.2-18.0); LYMPHOCYTES % (AUTO) 21.6 % (20.0-45.0); MEAN CORPUSCULAR VOLUME 91 FL (80-99); NEUTROPHILS % (AUTO) 65.6 % (45.0-75.0); PLATELET COUNT 362 K/UL (150-450); RED BLOOD COUNT 5.08 M/UL (4.70-6.10); RED CELL DISTRIBUTION WIDTH 14.6 % (11.6-14.8); WHITE BLOOD COUNT 11.5 K/UL (4.8-10.8)
[2019-05-11 08:47] LABS: ANION GAP 8 mmol/L (5-15); BLOOD UREA NITROGEN 24 mg/dL (7-18); CALCIUM 9.2 MG/DL (8.5-10.1); CARBON DIOXIDE 30 MMOL/L (21-32); CHLORIDE 102 MMOL/L (98-107); POTASSIUM 4.7 MMOL/L (3.5-5.1); SODIUM 140 MMOL/L (136-145)
[2019-05-11] MEDS: Docusate 100mg cap ORAL SCH ×2 (09:00→18:00)
[2019-05-11] MEDS: Eliquis 5mg tablet ORAL SCH ×2 (09:23→18:00)
[2019-05-11] MEDS: Carvedilol 6.25mg Tab ORAL SCH ×2 (09:23→20:47)
[2019-05-11] MEDS: Levemir Flexpen SUBQ SCH (09:29)
--- NOTE | 2019-05-11 11:58 | GI Progress Note ---
Assessment/Plan Problems: (1) Diabetes mellitus ICD Codes: E11.9 - Type 2 diabetes mellitus without complications SNOMED: 83591619 (2) Anemia ICD Codes: D64.9 - Anemia, unspecified SNOMED: 930065782 Status: stable, unchanged Status Narrative Discussed with Dr. La. Assessment/Plan This is a 73-year-old male with COPD exacerbation and new-onset diabetes given hemoglobin A1c is high. s/p EGD stable H&H fu biopsy results needs out patient fu fo colonoscopy The patient was seen and examined at bedside and all new and available data was reviewed in the patients chart. I agree with the above findings, impression and plan. (Patient seen earlier today. Signature stamp does not reflect patient encounter time.). - Christiano La MD Subjective Subjective headache Objective Last 24 Hour Vital Signs Date Time Temp Pulse Resp B/P (MAP) Pulse Ox O2 Delivery O2 Flow Rate FiO2 05/11/19 09:23 72 117/78 05/11/19 09:05 93 Room Air 21 05/11/19 09:00 Nasal Cannula 2.0 05/11/19 08:00 97.2 72 17 117/78 (91) 90 05/11/19 04:42 82 20 96 Nasal Cannula 2.0 28 80 20 94 05/10/19 21:32 86 20 97 Nasal Cannula 2.0 28 83 20 96 05/10/19 21:18 76 115/79 05/10/19 21:00 Nasal Cannula 2.0 05/10/19 20:00 96 Nasal Cannula 2.0 28 05/10/19 20:00 97.8 76 17 115/73 (87) 91 05/10/19 15:46 96.6 70 18 104/72 (83) 89 Intake and Output 05/10/19 05/11/19 19:00 07:00 Intake Total 600 ml 440 ml Output Total 2000 ml 1750 ml Balance -1400 ml -1310 ml Intake Oral 600 ml 440 ml Output Urine Total 2000 ml 1750 ml # Bowel Movements 1 Laboratory Tests Test 05/11/19 08:10 White Blood Count 11.5 K/UL (4.8-10.8) H Red Blood Count 5.08 M/UL (4.70-6.10) Hemoglobin 15.2 G/DL (14.2-18.0) Hematocrit 46.3 % (42.0-52.0) Mean Corpuscular Volume 91 FL (80-99) Mean Corpuscular Hemoglobin 30.0 PG (27.0-31.0) Mean Corpuscular Hemoglobin Concent 32.9 G/DL (32.0-36.0) Red Cell Distribution Width 14.6 % (11.6-14.8) Platelet Count 362 K/UL (150-450) Mean Platelet Volume 5.9 FL (6.5-10.1) L Neutrophils (%) (Auto) 65.6 % (45.0-75.0) Lymphocytes (%) (Auto) 21.6 % (20.0-45.0) Monocytes (%) (Auto) 4.0 % (1.0-10.0) Eosinophils (%) (Auto) 6.9 % (0.0-3.0) H Basophils (%) (Auto) 1.9 % (0.0-2.0) Sodium Level 140 MMOL/L (136-145) Potassium Level 4.7 MMOL/L (3.5-5.1) Chloride Level 102 MMOL/L (98-107) Carbon Dioxide Level 30 MMOL/L (21-32) Anion Gap 8 mmol/L (5-15) Blood Urea Nitrogen 24 mg/dL (7-18) H Creatinine 1.0 MG/DL (0.55-1.30) Estimat Glomerular Filtration Rate > 60 mL/min (>60) Glucose Level 150 MG/DL (74-106) H Calcium Level 9.2 MG/DL (8.5-10.1) Height (Feet): 6 Height (Inches): 0.00 Weight (Pounds): 212 General Appearance: WD/WN, no apparent distress, alert, thin Cardiovascular: normal rate Respiratory/Chest: normal breath sounds, no respiratory distress Abdominal Exam: normal bowel sounds, non tender, soft Extremities: non-tender Jeane Mosley SHELL [employer]EM[employer]ER May 11, 2019 11:58
--- NOTE | 2019-05-11 12:54 | Pulmonology Progress Note ---
Assessment/Plan Problems: (1) Nosocomial pneumonia (2) Respiratory failure with hypoxia (3) COPD exacerbation (4) Pacemaker (5) Diabetes mellitus (6) Prostate cancer Assessment/Plan slowly getting better on nasal cannula now on and off bipap sputum showing dale again dc steroids high wbc , steroids were held long time ago still short of breath, loud rhonchi Subjective ROS Limited/Unobtainable: No Interval Events: still feels short of breath, wants to go to another hospital Allergies: Coded Allergies: No Known Allergies (Unverified , 10/24/16) Objective Last 24 Hour Vital Signs Date Time Temp Pulse Resp B/P (MAP) Pulse Ox O2 Delivery O2 Flow Rate FiO2 05/11/19 09:23 72 117/78 05/11/19 09:05 93 Room Air 21 05/11/19 09:00 Nasal Cannula 2.0 05/11/19 08:00 97.2 72 17 117/78 (91) 90 05/11/19 04:42 82 20 96 Nasal Cannula 2.0 28 80 20 94 05/10/19 21:32 86 20 97 Nasal Cannula 2.0 28 83 20 96 05/10/19 21:18 76 115/79 05/10/19 21:00 Nasal Cannula 2.0 05/10/19 20:00 96 Nasal Cannula 2.0 28 05/10/19 20:00 97.8 76 17 115/73 (87) 91 05/10/19 15:46 96.6 70 18 104/72 (83) 89 Intake and Output 05/10/19 05/11/19 19:00 07:00 Intake Total 600 ml 440 ml Output Total 2000 ml 1750 ml Balance -1400 ml -1310 ml Intake Oral 600 ml 440 ml Output Urine Total 2000 ml 1750 ml # Bowel Movements 1 General Appearance: WD/WN HEENT: normocephalic Respiratory/Chest: crackles/rales Cardiovascular: normal peripheral pulses, normal rate Abdomen: normal bowel sounds, soft, non tender Extremities: no cyanosis, no clubbing Laboratory Tests 05/11/19 08:10: White Blood Count 11.5H, Red Blood Count 5.08, Hemoglobin 15.2, Hematocrit 46.3 , Mean Corpuscular Volume 91, Mean Corpuscular Hemoglobin 30.0, Mean Corpuscular Hemoglobin Concent 32.9, Red Cell Distribution Width 14.6, Platelet Count 362, Mean Platelet Volume 5.9L, Neutrophils (%) (Auto) 65.6, Lymphocytes ( %) (Auto) 21.6, Monocytes (%) (Auto) 4.0, Eosinophils (%) (Auto) 6.9H, Basophils (%) (Auto) 1.9, Sodium Level 140, Potassium Level 4.7, Chloride Level 102, Carbon Dioxide Level 30, Anion Gap 8, Blood Urea Nitrogen 24H, Creatinine 1.0, Estimat Glomerular Filtration Rate > 60, Glucose Level 150H, Calcium Level 9.2 Current Medications Medications (Trade) Dose Ordered Sig/Dejon Route PRN Reason Start Time Stop Time Status Last Admin Dose Admin Acetaminophen (Tylenol) 650 mg Q4H PRN ORAL fever 05/01/19 19:14 05/31/19 19:13 05/02/19 01:18 Acetaminophen/ Hydrocodone Bitart ([place] 5/325) 1 tab Q6H PRN ORAL Severe Pain (Pain Scale 7-10) 05/07/19 15:30 05/14/19 15:29 05/10/19 18:42 Albuterol/ Ipratropium (Albuterol/ Ipratropium) 3 ml Q4H PRN HHN Shortness of Breath 05/08/19 22:15 05/13/19 22:14 05/11/19 04:42 Apixaban (Eliquis) 5 mg BID ORAL 05/02/19 09:00 06/06/19 08:59 05/11/19 09:23 Carvedilol (Coreg) 6.25 mg EVERY 12 HOURS ORAL 05/07/19 21:00 05/15/19 08:59 05/11/19 09:23 Clonidine HCl (Catapres Tab) 0.1 mg Q4H PRN ORAL sbp more than 160 05/01/19 19:14 05/31/19 19:13 Clotrimazole (Lotrimin) 1 applic THREE TIMES A DAY TOPIC 05/02/19 09:00 05/20/19 12:59 05/10/19 08:56 Dextrose (Dextrose 50%) 25 ml Q30M PRN IV Hypoglycemia 05/07/19 15:00 05/15/19 10:59 Dextrose (Dextrose 50%) 50 ml Q30M PRN IV Hypoglycemia 05/07/19 15:00 05/15/19 02:59 Docusate Sodium (Colace) 100 mg TWICE A DAY ORAL 05/02/19 09:00 05/31/19 08:59 05/09/19 17:35 Escitalopram Oxalate (Lexapro) 10 mg DAILY ORAL 05/02/19 09:00 05/27/19 08:59 05/11/19 09:23 Insulin Aspart (NovoLOG) BEFORE MEALS AND HS SUBQ 05/07/19 16:30 05/15/19 08:59 05/10/19 12:42 Insulin Detemir (Levemir) 24 units DAILY SUBQ 05/08/19 09:00 05/12/19 20:59 05/11/19 09:29 Levothyroxine Sodium (Synthroid) 75 mcg ACBREAKFAST ORAL 05/02/19 06:30 05/27/19 06:29 05/11/19 06:45 Levothyroxine Sodium (Synthroid) 100 mcg ACBREAKFAST ORAL 05/08/19 06:30 05/15/19 06:29 05/11/19 06:45 Nitroglycerin (Ntg) 0.4 mg Q5M X 3 DOSES PRN SL Prn Chest Pain 05/07/19 15:30 06/06/19 15:29 Ondansetron HCl (Zofran) 4 mg Q6H PRN IVP Nausea & Vomiting 05/01/19 19:16 05/31/19 19:15 Oxymetazoline HCl (Afrin Nasal [place]) 1 spray Q6H PRN NASAL nasal congestion 05/01/19 19:16 05/31/19 19:15 Pantoprazole (Protonix) 40 mg EVERY 12 HOURS ORAL 05/06/19 21:00 06/05/19 20:59 05/11/19 09:23 Polyethylene Glycol (Miralax) 17 gm BEDTIME ORAL 05/01/19 21:00 05/31/19 20:59 05/09/19 21:49 Promethazine HCl/ Codeine (Phenergan with Codeine) 5 ml Q6H PRN ORAL cough 05/01/19 19:17 05/31/19 19:16 05/04/19 21:01 Tamsulosin HCl (Flomax) 0.4 mg BEDTIME ORAL 05/07/19 21:00 05/15/19 20:59 05/10/19 21:18 Goldie Obrien MD May 11, 2019 12:54
[2019-05-11 16:00] VITALS: BP 116/78
--- NOTE | 2019-05-11 17:19 | Internal Med Progress Note ---
Subjective Date of Service: May 11, 2019 Physician Name Idris Lugo Attending Physician Jewel Giraldo MD Current Medications Medications (Trade) Dose Ordered Sig/Dejon Route PRN Reason Start Time Stop Time Status Last Admin Dose Admin Acetaminophen (Tylenol) 650 mg Q4H PRN ORAL fever 05/01/19 19:14 05/31/19 19:13 05/02/19 01:18 Acetaminophen/ Hydrocodone Bitart ([place] 5/325) 1 tab Q6H PRN ORAL Severe Pain (Pain Scale 7-10) 05/07/19 15:30 05/14/19 15:29 05/10/19 18:42 Albuterol/ Ipratropium (Albuterol/ Ipratropium) 3 ml Q4H PRN HHN Shortness of Breath 05/08/19 22:15 05/13/19 22:14 05/11/19 04:42 Apixaban (Eliquis) 5 mg BID ORAL 05/02/19 09:00 06/06/19 08:59 05/11/19 09:23 Carvedilol (Coreg) 6.25 mg EVERY 12 HOURS ORAL 05/07/19 21:00 05/15/19 08:59 05/11/19 09:23 Clonidine HCl (Catapres Tab) 0.1 mg Q4H PRN ORAL sbp more than 160 05/01/19 19:14 05/31/19 19:13 Clotrimazole (Lotrimin) 1 applic THREE TIMES A DAY TOPIC 05/02/19 09:00 05/20/19 12:59 05/10/19 08:56 Dextrose (Dextrose 50%) 25 ml Q30M PRN IV Hypoglycemia 05/07/19 15:00 05/15/19 10:59 Dextrose (Dextrose 50%) 50 ml Q30M PRN IV Hypoglycemia 05/07/19 15:00 05/15/19 02:59 Docusate Sodium (Colace) 100 mg TWICE A DAY ORAL 05/02/19 09:00 05/31/19 08:59 05/09/19 17:35 Escitalopram Oxalate (Lexapro) 10 mg DAILY ORAL 05/02/19 09:00 05/27/19 08:59 05/11/19 09:23 Insulin Aspart (NovoLOG) BEFORE MEALS AND HS SUBQ 05/07/19 16:30 05/15/19 08:59 05/10/19 12:42 Insulin Detemir (Levemir) 24 units DAILY SUBQ 05/08/19 09:00 05/12/19 20:59 05/11/19 09:29 Levothyroxine Sodium (Synthroid) 75 mcg ACBREAKFAST ORAL 05/02/19 06:30 05/27/19 06:29 05/11/19 06:45 Levothyroxine Sodium (Synthroid) 100 mcg ACBREAKFAST ORAL 05/08/19 06:30 05/15/19 06:29 05/11/19 06:45 Nitroglycerin (Ntg) 0.4 mg Q5M X 3 DOSES PRN SL Prn Chest Pain 05/07/19 15:30 06/06/19 15:29 Ondansetron HCl (Zofran) 4 mg Q6H PRN IVP Nausea & Vomiting 05/01/19 19:16 05/31/19 19:15 Oxymetazoline HCl (Afrin Nasal [place]) 1 spray Q6H PRN NASAL nasal congestion 05/01/19 19:16 05/31/19 19:15 Pantoprazole (Protonix) 40 mg EVERY 12 HOURS ORAL 05/06/19 21:00 06/05/19 20:59 05/11/19 09:23 Polyethylene Glycol (Miralax) 17 gm BEDTIME ORAL 05/01/19 21:00 05/31/19 20:59 05/09/19 21:49 Promethazine HCl/ Codeine (Phenergan with Codeine) 5 ml Q6H PRN ORAL cough 05/01/19 19:17 05/31/19 19:16 05/04/19 21:01 Tamsulosin HCl (Flomax) 0.4 mg BEDTIME ORAL 05/07/19 21:00 05/15/19 20:59 05/10/19 21:18 Allergies: Coded Allergies: No Known Allergies (Unverified , 10/24/16) ROS Limited/Unobtainable: No Constitutional: Reports: no symptoms HEENT: Reports: no symptoms Cardiovascular: Reports: no symptoms Respiratory: Reports: shortness of breath Gastrointestinal/Abdominal: Reports: no symptoms Genitourinary: Reports: no symptoms Neurologic/Psychiatric: Reports: no symptoms Subjective 73 YO M admitted with COPD exacerbation. Now respiratory failure and pneumonia. Cover for Int Med-DR Giraldo. S/P endoscopy 05/06/19 Objective Last Vital Signs Date Time Temp Pulse Resp B/P (MAP) Pulse Ox O2 Delivery O2 Flow Rate FiO2 05/11/19 16:00 97.9 71 18 116/78 (91) 92 05/11/19 09:05 Room Air 21 05/11/19 09:00 2.0 Laboratory Tests Test 05/11/19 08:10 White Blood Count 11.5 K/UL (4.8-10.8) H Red Blood Count 5.08 M/UL (4.70-6.10) Hemoglobin 15.2 G/DL (14.2-18.0) Hematocrit 46.3 % (42.0-52.0) Mean Corpuscular Volume 91 FL (80-99) Mean Corpuscular Hemoglobin 30.0 PG (27.0-31.0) Mean Corpuscular Hemoglobin Concent 32.9 G/DL (32.0-36.0) Red Cell Distribution Width 14.6 % (11.6-14.8) Platelet Count 362 K/UL (150-450) Mean Platelet Volume 5.9 FL (6.5-10.1) L Neutrophils (%) (Auto) 65.6 % (45.0-75.0) Lymphocytes (%) (Auto) 21.6 % (20.0-45.0) Monocytes (%) (Auto) 4.0 % (1.0-10.0) Eosinophils (%) (Auto) 6.9 % (0.0-3.0) H Basophils (%) (Auto) 1.9 % (0.0-2.0) Sodium Level 140 MMOL/L (136-145) Potassium Level 4.7 MMOL/L (3.5-5.1) Chloride Level 102 MMOL/L (98-107) Carbon Dioxide Level 30 MMOL/L (21-32) Anion Gap 8 mmol/L (5-15) Blood Urea Nitrogen 24 mg/dL (7-18) H Creatinine 1.0 MG/DL (0.55-1.30) Estimat Glomerular Filtration Rate > 60 mL/min (>60) Glucose Level 150 MG/DL (74-106) H Calcium Level 9.2 MG/DL (8.5-10.1) Intake and Output 05/10/19 05/11/19 19:00 07:00 Intake Total 600 ml 440 ml Output Total 2000 ml 1750 ml Balance -1400 ml -1310 ml Intake Oral 600 ml 440 ml Output Urine Total 2000 ml 1750 ml # Bowel Movements 1 Objective PHYSICAL EXAMINATION: GENERAL: The patient is awake, responsive, no acute distress. HEAD AND NECK: Pupils are equal and reactive to light. Extraocular muscles intact. Neck was supple. No JVD. LUNGS: BIPAP;The patient has expiratory wheezes noted. Tachypneic. No rhonchi was noted. HEART: S1, S2. Irregular. No murmur. The patient has a pacemaker in the left-sided chest wall. ABDOMEN: Soft, nondistended, nontender. Mildly obese. EXTREMITIES: No cyanosis, clubbing, edema. NEUROLOGIC: Cranial nerves II through XII grossly normal. Motor is 5/5 in all extremities. Gait is intact. GENITOURINARY: It was noted the patient has a [place] catheter. RECTAL: Refused and deferred. PSYCHIATRIC: Mood and affect is intact. Assessment/Plan Assessment/Plan ASSESSMENT: 1. Acute hypoxemic respiratory failure, most likely secondary to acute COPD exacerbation. 2. Acute COPD exacerbation. 3. Pneumonia. 4. Sick sinus syndrome status post pacemaker. 5. Diabetes type 2. 6. Prostate cancer. 7. Hyperkalemia. 8. Insulin induced hyperglycemia. 9. Prostate enlargement. 10. Leukocytosis 11. RBBB 12 Gastritis PLAN: 1. Med/Surg 2. D/C Solu-Medrol IV Per Pulmonary consult=Dr. Obrien. 3. Endocrinology=Dr To. Monitor blood glucose level closely. 4. antibiotic=S/P ertapenem and vanco. ID=Dr Villa 5. Code status is Full Code. DVT prophylaxis, he is on Eliquis. 6. S/P endoscopy 05/06/19=gastritis Discharge planning-Home with home health and home O2 Idris Lugo MD May 11, 2019 17:19
--- NOTE | 2019-05-11 17:52 | Infectious Diseases Prog Note ---
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 No focal airspace consolidation. There is some atelectasis at the left lung base. -04/27 CXR: Borderline cardiomegaly. Questionable mild interstitial congestion , new or increased from previous study if real. -04/21 CTA chest:Somewhat limited exam, due to motion artifact. No definite evidence of pulmonary embolus or other acute thoracic vascular pathology. Borderline cardiomegaly. Diffuse bilateral pulmonary parenchymal groundglass opacity. Interspersed small bullae digestive this is due to COPD changes, but could also indicate a component of pulmonary edema. Considerable consolidation in the right lower lobe, likely pneumonia. Less extensive consolidation and atelectasis is seen at the left lung base. Pacemaker, degenerative spondylosis incidentally noted sp cx normal resp michael -04/19 CXR: Mild pulmonary vascular congestion -04/16 CXR: No acute disease -04/13 CXR: Suspected mild pulmonary vascular congestion. Correlate clinically -04/08 CXR: Mild pulmonary vascular congestion suspected Afebrile Leukocytosis,(pn steroids); improving Hyperglycemia Acute hypoxic respiratory failure ,on bipap PRN COPD CAD CHF prostate cancer s/p PPM former smoker Plan: - monitor pt off of AB RX - 05/05 Sp Ertapenem # 7/7 - 05/03 sp Vancomycin # 5 -04/28 SP Zosyn #8 -04/15 SP Levaquin #7 -04/08 SP Ceftriaxone x1, Azithromycin x1 -Monitor CBC/CMP, temperatures -aspiration precautions Thank you for this consultation. Will continue to follow along with you. Subjective Allergies: Coded Allergies: No Known Allergies (Unverified , 10/24/16) Subjective comfortable Objective Vital Signs Last 24 Hour Vital Signs Date Time Temp Pulse Resp B/P (MAP) Pulse Ox O2 Delivery O2 Flow Rate FiO2 05/11/19 16:00 97.9 71 18 116/78 (91) 92 05/11/19 09:23 72 117/78 05/11/19 09:05 93 Room Air 21 05/11/19 09:00 Nasal Cannula 2.0 05/11/19 08:00 97.2 72 17 117/78 (91) 90 05/11/19 04:42 82 20 96 Nasal Cannula 2.0 28 80 20 94 05/10/19 21:32 86 20 97 Nasal Cannula 2.0 28 83 20 96 05/10/19 21:18 76 115/79 05/10/19 21:00 Nasal Cannula 2.0 05/10/19 20:00 96 Nasal Cannula 2.0 28 05/10/19 20:00 97.8 76 17 115/73 (87) 91 Height (Feet): 6 Height (Inches): 0.00 Weight (Pounds): 212 HEENT: anicteric Respiratory/Chest: no respiratory distress Cardiovascular: regularly irregular Laboratory Tests Test 05/11/19 08:10 White Blood Count 11.5 K/UL (4.8-10.8) H Red Blood Count 5.08 M/UL (4.70-6.10) Hemoglobin 15.2 G/DL (14.2-18.0) Hematocrit 46.3 % (42.0-52.0) Mean Corpuscular Volume 91 FL (80-99) Mean Corpuscular Hemoglobin 30.0 PG (27.0-31.0) Mean Corpuscular Hemoglobin Concent 32.9 G/DL (32.0-36.0) Red Cell Distribution Width 14.6 % (11.6-14.8) Platelet Count 362 K/UL (150-450) Mean Platelet Volume 5.9 FL (6.5-10.1) L Neutrophils (%) (Auto) 65.6 % (45.0-75.0) Lymphocytes (%) (Auto) 21.6 % (20.0-45.0) Monocytes (%) (Auto) 4.0 % (1.0-10.0) Eosinophils (%) (Auto) 6.9 % (0.0-3.0) H Basophils (%) (Auto) 1.9 % (0.0-2.0) Sodium Level 140 MMOL/L (136-145) Potassium Level 4.7 MMOL/L (3.5-5.1) Chloride Level 102 MMOL/L (98-107) Carbon Dioxide Level 30 MMOL/L (21-32) Anion Gap 8 mmol/L (5-15) Blood Urea Nitrogen 24 mg/dL (7-18) H Creatinine 1.0 MG/DL (0.55-1.30) Estimat Glomerular Filtration Rate > 60 mL/min (>60) Glucose Level 150 MG/DL (74-106) H Calcium Level 9.2 MG/DL (8.5-10.1) Current Medications Medications (Trade) Dose Ordered Sig/Dejon Route PRN Reason Start Time Stop Time Status Last Admin Dose Admin Acetaminophen (Tylenol) 650 mg Q4H PRN ORAL fever 05/01/19 19:14 05/31/19 19:13 05/02/19 01:18 Acetaminophen/ Hydrocodone Bitart ([place] 5/325) 1 tab Q6H PRN ORAL Severe Pain (Pain Scale 7-10) 05/07/19 15:30 05/14/19 15:29 05/10/19 18:42 Albuterol/ Ipratropium (Albuterol/ Ipratropium) 3 ml Q4H PRN HHN Shortness of Breath 05/08/19 22:15 05/13/19 22:14 05/11/19 04:42 Apixaban (Eliquis) 5 mg BID ORAL 05/02/19 09:00 06/06/19 08:59 05/11/19 09:23 Carvedilol (Coreg) 6.25 mg EVERY 12 HOURS ORAL 05/07/19 21:00 05/15/19 08:59 05/11/19 09:23 Clonidine HCl (Catapres Tab) 0.1 mg Q4H PRN ORAL sbp more than 160 05/01/19 19:14 05/31/19 19:13 Clotrimazole (Lotrimin) 1 applic THREE TIMES A DAY TOPIC 05/02/19 09:00 05/20/19 12:59 05/10/19 08:56 Dextrose (Dextrose 50%) 25 ml Q30M PRN IV Hypoglycemia 05/07/19 15:00 05/15/19 10:59 Dextrose (Dextrose 50%) 50 ml Q30M PRN IV Hypoglycemia 05/07/19 15:00 05/15/19 02:59 Docusate Sodium (Colace) 100 mg TWICE A DAY ORAL 05/02/19 09:00 05/31/19 08:59 05/09/19 17:35 Escitalopram Oxalate (Lexapro) 10 mg DAILY ORAL 05/02/19 09:00 05/27/19 08:59 05/11/19 09:23 Insulin Aspart (NovoLOG) BEFORE MEALS AND HS SUBQ 05/07/19 16:30 05/15/19 08:59 05/10/19 12:42 Insulin Detemir (Levemir) 24 units DAILY SUBQ 05/08/19 09:00 05/12/19 20:59 05/11/19 09:29 Levothyroxine Sodium (Synthroid) 75 mcg ACBREAKFAST ORAL 05/02/19 06:30 05/27/19 06:29 05/11/19 06:45 Levothyroxine Sodium (Synthroid) 100 mcg ACBREAKFAST ORAL 05/08/19 06:30 05/15/19 06:29 05/11/19 06:45 Nitroglycerin (Ntg) 0.4 mg Q5M X 3 DOSES PRN SL Prn Chest Pain 05/07/19 15:30 06/06/19 15:29 Ondansetron HCl (Zofran) 4 mg Q6H PRN IVP Nausea & Vomiting 05/01/19 19:16 05/31/19 19:15 Oxymetazoline HCl (Afrin Nasal [place]) 1 spray Q6H PRN NASAL nasal congestion 05/01/19 19:16 05/31/19 19:15 Pantoprazole (Protonix) 40 mg EVERY 12 HOURS ORAL 05/06/19 21:00 06/05/19 20:59 05/11/19 09:23 Polyethylene Glycol (Miralax) 17 gm BEDTIME ORAL 05/01/19 21:00 05/31/19 20:59 05/09/19 21:49 Promethazine HCl/ Codeine (Phenergan with Codeine) 5 ml Q6H PRN ORAL cough 05/01/19 19:17 05/31/19 19:16 05/04/19 21:01 Tamsulosin HCl (Flomax) 0.4 mg BEDTIME ORAL 05/07/19 21:00 05/15/19 20:59 05/10/19 21:18 Robert Canela MD May 11, 2019 17:52
[2019-05-11 20:00] VITALS: BP 123/76
[2019-05-11] MEDS: HYDROcodone/Acetamin 5/325 tab ORAL PRN (20:46)
[2019-05-11] MEDS: Miralax 17gm pkt ORAL SCH ×2 (20:47→20:49)
[2019-05-11] MEDS: Tamsulosin 0.4mg cap ORAL SCH (20:47)
--- NOTE | 2019-05-12 03:45 | Progress Note ---
DATE: 05/11/2019 SUBJECTIVE: The patient is the same, refusing to be discharged. The patient is irritable, hostile, abusive towards the staff. MENTAL STATUS EXAMINATION: Alert and oriented times self, place, and situation. Mood is anxious. Affect is flat. Thought process is concrete. Thought content, no suicidal or homicidal ideation. Cognition is impaired. Insight and judgement impaired. ASSESSMENT: The patient is not an imminent danger to self or others. PLAN: Continue current medications. Ottoniel Hillman M.D. DR: ELENA JOB#: [id number] CC:
--- NOTE | 2019-05-12 06:26 | General Progress Note ---
Assessment/Plan Problem List: (1) COPD exacerbation ICD Codes: J44.1 - Chronic obstructive pulmonary disease with (acute) exacerbation SNOMED: 713362114 (2) Respiratory failure with hypoxia ICD Codes: J96.91 - Respiratory failure, unspecified with hypoxia SNOMED: 37243493403447200 (3) Diabetes mellitus ICD Codes: E11.9 - Type 2 diabetes mellitus without complications SNOMED: 59946326 (4) Pacemaker ICD Codes: Z95.0 - Presence of cardiac pacemaker SNOMED: 565581316 (5) Prostate cancer ICD Codes: C61 - Malignant neoplasm of prostate SNOMED: 771148448 (6) Hypothyroid ICD Codes: E03.9 - Hypothyroidism, unspecified SNOMED: 16156034 Status: stable, unchanged Assessment/Plan: continue Levemir 24 units qam continue NISS ac / hs continue Levothyroxine 175 mcg qam repeat thyroid function in 2 weeks Subjective Allergies: Coded Allergies: No Known Allergies (Unverified , 10/24/16) Subjective events noted glucose values are stable Item Value Date Time Bedside Blood Glucose 112 mg/dl 05/11/19 1630 Bedside Blood Glucose 131 mg/dl H 05/11/19 0929 Bedside Blood Glucose 131 mg/dl H 05/11/19 0630 Objective Last 24 Hour Vital Signs Date Time Temp Pulse Resp B/P (MAP) Pulse Ox O2 Delivery O2 Flow Rate FiO2 05/11/19 21:00 Room Air 05/11/19 20:47 88 123/76 05/11/19 20:39 71 20 98 Nasal Cannula 2.0 28 05/11/19 20:29 74 20 91 Nasal Cannula 2.0 28 05/11/19 20:29 91 Nasal Cannula 2.0 28 05/11/19 20:29 74 20 91 Nasal Cannula 2.0 28 05/11/19 20:00 98.3 88 17 123/76 (92) 92 05/11/19 16:00 97.9 71 18 116/78 (91) 92 05/11/19 09:23 72 117/78 05/11/19 09:05 93 Room Air 21 05/11/19 09:00 Nasal Cannula 2.0 05/11/19 08:00 97.2 72 17 117/78 (91) 90 Intake and Output 05/11/19 05/12/19 19:00 07:00 Intake Total 900 ml Output Total 600 ml Balance 300 ml Intake Oral 900 ml Output Urine Total 600 ml Laboratory Tests 05/11/19 08:10: White Blood Count 11.5H, Red Blood Count 5.08, Hemoglobin 15.2, Hematocrit 46.3 , Mean Corpuscular Volume 91, Mean Corpuscular Hemoglobin 30.0, Mean Corpuscular Hemoglobin Concent 32.9, Red Cell Distribution Width 14.6, Platelet Count 362, Mean Platelet Volume 5.9L, Neutrophils (%) (Auto) 65.6, Lymphocytes ( %) (Auto) 21.6, Monocytes (%) (Auto) 4.0, Eosinophils (%) (Auto) 6.9H, Basophils (%) (Auto) 1.9, Sodium Level 140, Potassium Level 4.7, Chloride Level 102, Carbon Dioxide Level 30, Anion Gap 8, Blood Urea Nitrogen 24H, Creatinine 1.0, Estimat Glomerular Filtration Rate > 60, Glucose Level 150H, Calcium Level 9.2 Height (Feet): 6 Height (Inches): 0.00 Weight (Pounds): 212 General Appearance: no apparent distress Neck: normal alignment Cardiovascular: normal rate Respiratory/Chest: lungs clear Abdomen: normal bowel sounds Objective Current Medications Medications (Trade) Dose Ordered Sig/Dejon Route PRN Reason Start Time Stop Time Status Last Admin Dose Admin Acetaminophen (Tylenol) 650 mg Q4H PRN ORAL fever 05/01/19 19:14 05/31/19 19:13 05/02/19 01:18 Acetaminophen/ Hydrocodone Bitart ([place] 5/325) 1 tab Q6H PRN ORAL Severe Pain (Pain Scale 7-10) 05/07/19 15:30 05/14/19 15:29 05/10/19 18:42 Albuterol/ Ipratropium (Albuterol/ Ipratropium) 3 ml Q4H PRN HHN Shortness of Breath 05/08/19 22:15 05/13/19 22:14 05/11/19 04:42 Apixaban (Eliquis) 5 mg BID ORAL 05/02/19 09:00 06/06/19 08:59 05/10/19 18:22 Carvedilol (Coreg) 6.25 mg EVERY 12 HOURS ORAL 05/07/19 21:00 05/15/19 08:59 05/10/19 21:18 Clonidine HCl (Catapres Tab) 0.1 mg Q4H PRN ORAL sbp more than 160 05/01/19 19:14 05/31/19 19:13 Clotrimazole (Lotrimin) 1 applic THREE TIMES A DAY TOPIC 05/02/19 09:00 05/20/19 12:59 05/10/19 08:56 Dextrose (Dextrose 50%) 25 ml Q30M PRN IV Hypoglycemia 05/07/19 15:00 05/15/19 10:59 Dextrose (Dextrose 50%) 50 ml Q30M PRN IV Hypoglycemia 05/07/19 15:00 05/15/19 02:59 Docusate Sodium (Colace) 100 mg TWICE A DAY ORAL 05/02/19 09:00 05/31/19 08:59 05/09/19 17:35 Escitalopram Oxalate (Lexapro) 10 mg DAILY ORAL 05/02/19 09:00 05/27/19 08:59 05/10/19 08:55 Insulin Aspart (NovoLOG) BEFORE MEALS AND HS SUBQ 05/07/19 16:30 05/15/19 08:59 05/10/19 12:42 Insulin Detemir (Levemir) 24 units DAILY SUBQ 05/08/19 09:00 05/12/19 20:59 05/10/19 09:02 Levothyroxine Sodium (Synthroid) 75 mcg ACBREAKFAST ORAL 05/02/19 06:30 05/27/19 06:29 05/10/19 06:02 Levothyroxine Sodium (Synthroid) 100 mcg ACBREAKFAST ORAL 05/08/19 06:30 05/15/19 06:29 05/10/19 06:02 Nitroglycerin (Ntg) 0.4 mg Q5M X 3 DOSES PRN SL Prn Chest Pain 05/07/19 15:30 06/06/19 15:29 Ondansetron HCl (Zofran) 4 mg Q6H PRN IVP Nausea & Vomiting 05/01/19 19:16 05/31/19 19:15 Oxymetazoline HCl (Afrin Nasal [place]) 1 spray Q6H PRN NASAL nasal congestion 05/01/19 19:16 05/31/19 19:15 Pantoprazole (Protonix) 40 mg EVERY 12 HOURS ORAL 05/06/19 21:00 06/05/19 20:59 05/10/19 21:18 Polyethylene Glycol (Miralax) 17 gm BEDTIME ORAL 05/01/19 21:00 05/31/19 20:59 05/09/19 21:49 Promethazine HCl/ Codeine (Phenergan with Codeine) 5 ml Q6H PRN ORAL cough 05/01/19 19:17 05/31/19 19:16 05/04/19 21:01 Tamsulosin HCl (Flomax) 0.4 mg BEDTIME ORAL 05/07/19 21:00 05/15/19 20:59 05/10/19 21:18 Geovanni To MD May 12, 2019 06:26
[2019-05-12] MEDS: NovoLOG Insulin Flexpen SUBQ SCH ×4 (06:30→21:00)
[2019-05-12 08:00] VITALS: BP 113/73
[2019-05-12] MEDS: Levemir Flexpen SUBQ SCH (09:00)
--- NOTE | 2019-05-12 09:17 | Infectious Diseases Prog Note ---
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 No focal airspace consolidation. There is some atelectasis at the left lung base. -04/27 CXR: Borderline cardiomegaly. Questionable mild interstitial congestion , new or increased from previous study if real. -04/21 CTA chest:Somewhat limited exam, due to motion artifact. No definite evidence of pulmonary embolus or other acute thoracic vascular pathology. Borderline cardiomegaly. Diffuse bilateral pulmonary parenchymal groundglass opacity. Interspersed small bullae digestive this is due to COPD changes, but could also indicate a component of pulmonary edema. Considerable consolidation in the right lower lobe, likely pneumonia. Less extensive consolidation and atelectasis is seen at the left lung base. Pacemaker, degenerative spondylosis incidentally noted sp cx normal resp michael -04/19 CXR: Mild pulmonary vascular congestion -04/16 CXR: No acute disease -04/13 CXR: Suspected mild pulmonary vascular congestion. Correlate clinically -04/08 CXR: Mild pulmonary vascular congestion suspected Afebrile Leukocytosis,(pn steroids); improving Hyperglycemia Acute hypoxic respiratory failure ,on bipap PRN COPD CAD CHF prostate cancer s/p PPM former smoker Plan: - monitor pt off of AB RX - 05/05 Sp Ertapenem # 7/7 - 05/03 sp Vancomycin # 5 -04/28 SP Zosyn #8 -04/15 SP Levaquin #7 -04/08 SP Ceftriaxone x1, Azithromycin x1 -Monitor CBC/CMP, temperatures -aspiration precautions Thank you for this consultation. Will continue to follow along with you. Subjective Allergies: Coded Allergies: No Known Allergies (Unverified , 10/24/16) Subjective mild leukocytosis comfortable Objective Vital Signs Last 24 Hour Vital Signs Date Time Temp Pulse Resp B/P (MAP) Pulse Ox O2 Delivery O2 Flow Rate FiO2 05/12/19 07:45 Room Air 05/11/19 21:00 Room Air 05/11/19 20:47 88 123/76 05/11/19 20:39 71 20 98 Nasal Cannula 2.0 28 05/11/19 20:29 74 20 91 Nasal Cannula 2.0 28 05/11/19 20:29 91 Nasal Cannula 2.0 28 05/11/19 20:29 74 20 91 Nasal Cannula 2.0 28 05/11/19 20:00 98.3 88 17 123/76 (92) 92 05/11/19 16:00 97.9 71 18 116/78 (91) 92 05/11/19 09:23 72 117/78 Height (Feet): 6 Height (Inches): 0.00 Weight (Pounds): 0 HEENT: anicteric Respiratory/Chest: normal breath sounds Cardiovascular: regularly irregular Abdomen: non distended Current Medications Medications (Trade) Dose Ordered Sig/Dejon Route PRN Reason Start Time Stop Time Status Last Admin Dose Admin Acetaminophen (Tylenol) 650 mg Q4H PRN ORAL fever 05/01/19 19:14 05/31/19 19:13 05/02/19 01:18 Acetaminophen/ Hydrocodone Bitart ([place] 5/325) 1 tab Q6H PRN ORAL Severe Pain (Pain Scale 7-10) 05/07/19 15:30 05/14/19 15:29 05/11/19 20:46 Albuterol/ Ipratropium (Albuterol/ Ipratropium) 3 ml Q4H PRN HHN Shortness of Breath 05/08/19 22:15 05/13/19 22:14 05/11/19 20:29 Apixaban (Eliquis) 5 mg BID ORAL 05/02/19 09:00 06/06/19 08:59 05/11/19 18:00 Carvedilol (Coreg) 6.25 mg EVERY 12 HOURS ORAL 05/07/19 21:00 05/15/19 08:59 05/11/19 20:47 Clonidine HCl (Catapres Tab) 0.1 mg Q4H PRN ORAL sbp more than 160 05/01/19 19:14 05/31/19 19:13 Clotrimazole (Lotrimin) 1 applic THREE TIMES A DAY TOPIC 05/02/19 09:00 05/20/19 12:59 05/10/19 08:56 Dextrose (Dextrose 50%) 25 ml Q30M PRN IV Hypoglycemia 05/07/19 15:00 05/15/19 10:59 Dextrose (Dextrose 50%) 50 ml Q30M PRN IV Hypoglycemia 05/07/19 15:00 05/15/19 02:59 Docusate Sodium (Colace) 100 mg TWICE A DAY ORAL 05/02/19 09:00 05/31/19 08:59 05/09/19 17:35 Escitalopram Oxalate (Lexapro) 10 mg DAILY ORAL 05/02/19 09:00 05/27/19 08:59 05/11/19 09:23 Insulin Aspart (NovoLOG) BEFORE MEALS AND HS SUBQ 05/07/19 16:30 05/15/19 08:59 05/10/19 12:42 Insulin Detemir (Levemir) 24 units DAILY SUBQ 05/08/19 09:00 05/12/19 20:59 05/11/19 09:29 Levothyroxine Sodium (Synthroid) 75 mcg ACBREAKFAST ORAL 05/02/19 06:30 05/27/19 06:29 05/11/19 06:45 Levothyroxine Sodium (Synthroid) 100 mcg ACBREAKFAST ORAL 05/08/19 06:30 05/15/19 06:29 05/11/19 06:45 Nitroglycerin (Ntg) 0.4 mg Q5M X 3 DOSES PRN SL Prn Chest Pain 05/07/19 15:30 06/06/19 15:29 Ondansetron HCl (Zofran) 4 mg Q6H PRN IVP Nausea & Vomiting 05/01/19 19:16 05/31/19 19:15 Oxymetazoline HCl (Afrin Nasal [place]) 1 spray Q6H PRN NASAL nasal congestion 05/01/19 19:16 05/31/19 19:15 Pantoprazole (Protonix) 40 mg EVERY 12 HOURS ORAL 05/06/19 21:00 06/05/19 20:59 05/11/19 20:47 Polyethylene Glycol (Miralax) 17 gm BEDTIME ORAL 05/01/19 21:00 05/31/19 20:59 05/11/19 20:47 Promethazine HCl/ Codeine (Phenergan with Codeine) 5 ml Q6H PRN ORAL cough 05/01/19 19:17 05/31/19 19:16 05/04/19 21:01 Tamsulosin HCl (Flomax) 0.4 mg BEDTIME ORAL 05/07/19 21:00 05/15/19 20:59 05/11/19 20:47 Robert Canela MD May 12, 2019 09:17
[2019-05-12] MEDS: Carvedilol 6.25mg Tab ORAL SCH ×2 (09:31→21:00)
[2019-05-12] MEDS: Eliquis 5mg tablet ORAL SCH ×2 (09:32→18:05)
[2019-05-12] MEDS: Docusate 100mg cap ORAL SCH ×2 (09:33→18:05)
[2019-05-12] MEDS: HYDROcodone/Acetamin 5/325 tab ORAL PRN ×2 (09:38→18:11)
--- NOTE | 2019-05-12 10:59 | GI Progress Note ---
Assessment/Plan Problems: (1) Diabetes mellitus ICD Codes: E11.9 - Type 2 diabetes mellitus without complications SNOMED: 80817336 (2) Anemia ICD Codes: D64.9 - Anemia, unspecified SNOMED: 658763668 Status: stable Status Narrative Discussed with Dr. La. Assessment/Plan This is a 73-year-old male with COPD exacerbation and new-onset diabetes given hemoglobin A1c is high. s/p EGD stable H&H fu biopsy results needs out patient fu fo colonoscopy The patient was seen and examined at bedside and all new and available data was reviewed in the patients chart. I agree with the above findings, impression and plan. (Patient seen earlier today. Signature stamp does not reflect patient encounter time.). - Christiano La MD Subjective Subjective headache Objective Last 24 Hour Vital Signs Date Time Temp Pulse Resp B/P (MAP) Pulse Ox O2 Delivery O2 Flow Rate FiO2 05/12/19 09:31 93 113/73 05/12/19 08:00 98.0 93 18 113/73 (86) 92 05/12/19 07:46 93 Room Air 21 05/12/19 07:45 Room Air 05/11/19 21:00 Room Air 05/11/19 20:47 88 123/76 05/11/19 20:39 71 20 98 Nasal Cannula 2.0 28 05/11/19 20:29 74 20 91 Nasal Cannula 2.0 28 05/11/19 20:29 91 Nasal Cannula 2.0 28 05/11/19 20:29 74 20 91 Nasal Cannula 2.0 28 05/11/19 20:00 98.3 88 17 123/76 (92) 92 05/11/19 16:00 97.9 71 18 116/78 (91) 92 Intake and Output 05/11/19 05/12/19 19:00 07:00 Intake Total 900 ml 480 ml Output Total 600 ml Balance 300 ml 480 ml Intake Oral 900 ml 480 ml Output Urine Total 600 ml # Voids 2 Height (Feet): 6 Height (Inches): 0.00 Weight (Pounds): 0 General Appearance: WD/WN, no apparent distress, alert Cardiovascular: normal rate Respiratory/Chest: normal breath sounds, no respiratory distress Abdominal Exam: normal bowel sounds, non tender, soft Extremities: normal range of motion, non-tender Mosley,Michela-Gibran REMOVABLE PROSTHODONTIST May 12, 2019 10:59
[2019-05-12 12:00] VITALS: BP 118/76
--- NOTE | 2019-05-12 12:11 | Pulmonology Progress Note ---
Assessment/Plan Problems: (1) Nosocomial pneumonia (2) Respiratory failure with hypoxia (3) COPD exacerbation (4) Pacemaker (5) Diabetes mellitus (6) Prostate cancer Assessment/Plan large amount of putrid phlegm will start on Amikacin inhalation on nasal cannula now on and off bipap high wbc , persistent Subjective Interval Events: still thick secretions, still dyspnic Allergies: Coded Allergies: No Known Allergies (Unverified , 10/24/16) Objective Last 24 Hour Vital Signs Date Time Temp Pulse Resp B/P (MAP) Pulse Ox O2 Delivery O2 Flow Rate FiO2 05/12/19 09:31 93 113/73 05/12/19 08:00 98.0 93 18 113/73 (86) 92 05/12/19 07:46 93 Room Air 21 05/12/19 07:45 Room Air 05/11/19 21:00 Room Air 05/11/19 20:47 88 123/76 05/11/19 20:39 71 20 98 Nasal Cannula 2.0 28 05/11/19 20:29 74 20 91 Nasal Cannula 2.0 28 05/11/19 20:29 91 Nasal Cannula 2.0 28 05/11/19 20:29 74 20 91 Nasal Cannula 2.0 28 05/11/19 20:00 98.3 88 17 123/76 (92) 92 05/11/19 16:00 97.9 71 18 116/78 (91) 92 Intake and Output 05/11/19 05/12/19 18:59 06:59 Intake Total 900 ml 480 ml Output Total 600 ml Balance 300 ml 480 ml Intake Oral 900 ml 480 ml Output Urine Total 600 ml # Voids 2 General Appearance: cachetic HEENT: normocephalic, atraumatic Respiratory/Chest: chest wall non-tender, lungs clear Cardiovascular: normal peripheral pulses, regular rhythm Abdomen: normal bowel sounds, soft, non tender Genitourinary: normal external genitalia Extremities: no clubbing Current Medications Medications (Trade) Dose Ordered Sig/Dejon Route PRN Reason Start Time Stop Time Status Last Admin Dose Admin Acetaminophen (Tylenol) 650 mg Q4H PRN ORAL fever 05/01/19 19:14 05/31/19 19:13 05/02/19 01:18 Acetaminophen/ Hydrocodone Bitart ([place] 5/325) 1 tab Q6H PRN ORAL Severe Pain (Pain Scale 7-10) 05/07/19 15:30 05/14/19 15:29 05/12/19 09:38 Albuterol/ Ipratropium (Albuterol/ Ipratropium) 3 ml Q4H PRN HHN Shortness of Breath 05/08/19 22:15 05/13/19 22:14 05/11/19 20:29 Apixaban (Eliquis) 5 mg BID ORAL 05/02/19 09:00 06/06/19 08:59 05/12/19 09:32 Carvedilol (Coreg) 6.25 mg EVERY 12 HOURS ORAL 05/07/19 21:00 05/15/19 08:59 05/12/19 09:31 Clonidine HCl (Catapres Tab) 0.1 mg Q4H PRN ORAL sbp more than 160 05/01/19 19:14 05/31/19 19:13 Clotrimazole (Lotrimin) 1 applic THREE TIMES A DAY TOPIC 05/02/19 09:00 05/20/19 12:59 05/10/19 08:56 Dextrose (Dextrose 50%) 25 ml Q30M PRN IV Hypoglycemia 05/07/19 15:00 05/15/19 10:59 Dextrose (Dextrose 50%) 50 ml Q30M PRN IV Hypoglycemia 05/07/19 15:00 05/15/19 02:59 Docusate Sodium (Colace) 100 mg TWICE A DAY ORAL 05/02/19 09:00 05/31/19 08:59 05/12/19 09:33 Escitalopram Oxalate (Lexapro) 10 mg DAILY ORAL 05/02/19 09:00 05/27/19 08:59 05/12/19 09:31 Insulin Aspart (NovoLOG) BEFORE MEALS AND HS SUBQ 05/07/19 16:30 05/15/19 08:59 05/10/19 12:42 Insulin Detemir (Levemir) 24 units DAILY SUBQ 05/08/19 09:00 05/12/19 20:59 05/11/19 09:29 Levothyroxine Sodium (Synthroid) 75 mcg ACBREAKFAST ORAL 05/02/19 06:30 05/27/19 06:29 05/11/19 06:45 Levothyroxine Sodium (Synthroid) 100 mcg ACBREAKFAST ORAL 05/08/19 06:30 05/15/19 06:29 05/11/19 06:45 Nitroglycerin (Ntg) 0.4 mg Q5M X 3 DOSES PRN SL Prn Chest Pain 05/07/19 15:30 06/06/19 15:29 Ondansetron HCl (Zofran) 4 mg Q6H PRN IVP Nausea & Vomiting 05/01/19 19:16 05/31/19 19:15 Oxymetazoline HCl (Afrin Nasal [place]) 1 spray Q6H PRN NASAL nasal congestion 05/01/19 19:16 05/31/19 19:15 Pantoprazole (Protonix) 40 mg EVERY 12 HOURS ORAL 05/06/19 21:00 06/05/19 20:59 05/12/19 09:31 Polyethylene Glycol (Miralax) 17 gm BEDTIME ORAL 05/01/19 21:00 05/31/19 20:59 05/11/19 20:47 Promethazine HCl/ Codeine (Phenergan with Codeine) 5 ml Q6H PRN ORAL cough 05/01/19 19:17 05/31/19 19:16 05/04/19 21:01 Tamsulosin HCl (Flomax) 0.4 mg BEDTIME ORAL 05/07/19 21:00 05/15/19 20:59 05/11/19 20:47 Goldie Obrien MD May 12, 2019 12:11
--- NOTE | 2019-05-12 12:41 | Internal Med Progress Note ---
Subjective Date of Service: May 12, 2019 Physician Name Idris Lugo Attending Physician Jewel Giraldo MD Current Medications Medications (Trade) Dose Ordered Sig/Dejon Route PRN Reason Start Time Stop Time Status Last Admin Dose Admin Acetaminophen (Tylenol) 650 mg Q4H PRN ORAL fever 05/01/19 19:14 05/31/19 19:13 05/02/19 01:18 Acetaminophen/ Hydrocodone Bitart ([place] 5/325) 1 tab Q6H PRN ORAL Severe Pain (Pain Scale 7-10) 05/07/19 15:30 05/14/19 15:29 05/12/19 09:38 Albuterol/ Ipratropium (Albuterol/ Ipratropium) 3 ml Q4H PRN HHN Shortness of Breath 05/08/19 22:15 05/13/19 22:14 05/11/19 20:29 Amikacin Sulfate (Amikin) 500 mg Q12H INH 05/12/19 22:00 05/19/19 21:59 Apixaban (Eliquis) 5 mg BID ORAL 05/02/19 09:00 06/06/19 08:59 05/12/19 09:32 Carvedilol (Coreg) 6.25 mg EVERY 12 HOURS ORAL 05/07/19 21:00 05/15/19 08:59 05/12/19 09:31 Clonidine HCl (Catapres Tab) 0.1 mg Q4H PRN ORAL sbp more than 160 05/01/19 19:14 05/31/19 19:13 Clotrimazole (Lotrimin) 1 applic THREE TIMES A DAY TOPIC 05/02/19 09:00 05/20/19 12:59 05/10/19 08:56 Dextrose (Dextrose 50%) 25 ml Q30M PRN IV Hypoglycemia 05/07/19 15:00 05/15/19 10:59 Dextrose (Dextrose 50%) 50 ml Q30M PRN IV Hypoglycemia 05/07/19 15:00 05/15/19 02:59 Docusate Sodium (Colace) 100 mg TWICE A DAY ORAL 05/02/19 09:00 05/31/19 08:59 05/12/19 09:33 Escitalopram Oxalate (Lexapro) 10 mg DAILY ORAL 05/02/19 09:00 05/27/19 08:59 05/12/19 09:31 Insulin Aspart (NovoLOG) BEFORE MEALS AND HS SUBQ 05/07/19 16:30 05/15/19 08:59 05/10/19 12:42 Insulin Detemir (Levemir) 24 units DAILY SUBQ 05/08/19 09:00 05/12/19 20:59 05/11/19 09:29 Levothyroxine Sodium (Synthroid) 75 mcg ACBREAKFAST ORAL 05/02/19 06:30 05/27/19 06:29 05/11/19 06:45 Levothyroxine Sodium (Synthroid) 100 mcg ACBREAKFAST ORAL 05/08/19 06:30 05/15/19 06:29 05/11/19 06:45 Nitroglycerin (Ntg) 0.4 mg Q5M X 3 DOSES PRN SL Prn Chest Pain 05/07/19 15:30 06/06/19 15:29 Ondansetron HCl (Zofran) 4 mg Q6H PRN IVP Nausea & Vomiting 05/01/19 19:16 05/31/19 19:15 Oxymetazoline HCl (Afrin Nasal [place]) 1 spray Q6H PRN NASAL nasal congestion 05/01/19 19:16 05/31/19 19:15 Pantoprazole (Protonix) 40 mg EVERY 12 HOURS ORAL 05/06/19 21:00 06/05/19 20:59 05/12/19 09:31 Polyethylene Glycol (Miralax) 17 gm BEDTIME ORAL 05/01/19 21:00 05/31/19 20:59 05/11/19 20:47 Promethazine HCl/ Codeine (Phenergan with Codeine) 5 ml Q6H PRN ORAL cough 05/01/19 19:17 05/31/19 19:16 05/04/19 21:01 Tamsulosin HCl (Flomax) 0.4 mg BEDTIME ORAL 05/07/19 21:00 05/15/19 20:59 05/11/19 20:47 Allergies: Coded Allergies: No Known Allergies (Unverified , 10/24/16) ROS Limited/Unobtainable: No Constitutional: Reports: no symptoms HEENT: Reports: no symptoms Cardiovascular: Reports: no symptoms Respiratory: Reports: no symptoms Gastrointestinal/Abdominal: Reports: no symptoms Genitourinary: Reports: no symptoms Neurologic/Psychiatric: Reports: no symptoms Subjective 73 YO M admitted with COPD exacerbation. Now respiratory failure and pneumonia. Cover for Int Med-DR Giraldo. S/P endoscopy 05/06/19 Objective Last Vital Signs Date Time Temp Pulse Resp B/P (MAP) Pulse Ox O2 Delivery O2 Flow Rate FiO2 05/12/19 09:31 93 113/73 05/12/19 08:00 98.0 18 92 05/12/19 07:46 Room Air 21 05/11/19 20:39 2.0 Intake and Output 05/11/19 05/12/19 19:00 07:00 Intake Total 900 ml 480 ml Output Total 600 ml Balance 300 ml 480 ml Intake Oral 900 ml 480 ml Output Urine Total 600 ml # Voids 2 Objective PHYSICAL EXAMINATION: GENERAL: The patient is awake, responsive, no acute distress. HEAD AND NECK: Pupils are equal and reactive to light. Extraocular muscles intact. Neck was supple. No JVD. LUNGS: BIPAP;The patient has expiratory wheezes noted. Tachypneic. No rhonchi was noted. HEART: S1, S2. Irregular. No murmur. The patient has a pacemaker in the left-sided chest wall. ABDOMEN: Soft, nondistended, nontender. Mildly obese. EXTREMITIES: No cyanosis, clubbing, edema. NEUROLOGIC: Cranial nerves II through XII grossly normal. Motor is 5/5 in all extremities. Gait is intact. GENITOURINARY: It was noted the patient has a [place] catheter. RECTAL: Refused and deferred. PSYCHIATRIC: Mood and affect is intact. Assessment/Plan Assessment/Plan ASSESSMENT: 1. Acute hypoxemic respiratory failure, most likely secondary to acute COPD exacerbation. 2. Acute COPD exacerbation. 3. Pneumonia. 4. Sick sinus syndrome status post pacemaker. 5. Diabetes type 2. 6. Prostate cancer. 7. Hyperkalemia. 8. Insulin induced hyperglycemia. 9. Prostate enlargement. 10. Leukocytosis 11. RBBB 12 Gastritis PLAN: 1. Med/Surg 2. D/C Solu-Medrol IV Per Pulmonary consult=Dr. Obrien. 3. Endocrinology=Dr To. Monitor blood glucose level closely. 4. antibiotic=amikacin; S/P ertapenem and vanco. ID=Dr Villa 5. Code status is Full Code. DVT prophylaxis, he is on Eliquis. 6. S/P endoscopy 05/06/19=gastritis Discharge planning-Home with home health and home O2 Idris Lugo MD May 12, 2019 12:41
[2019-05-12 16:00] VITALS: BP 142/68
[2019-05-12 20:00] VITALS: BP 133/74
[2019-05-12] MEDS: Albuterol/Ipratropium 3ml neb HHN PRN (20:38)
[2019-05-12] MEDS: Miralax 17gm pkt ORAL SCH (21:00)
[2019-05-12] MEDS: Tamsulosin 0.4mg cap ORAL SCH (21:00)
[2019-05-12] MEDS ORDERED: Amikacin for Inhalation 2ML INH SCH (22:00)
[2019-05-13] VITALS: BP 137/76
[2019-05-13 04:00] VITALS: BP 127/77
[2019-05-13] MEDS: NovoLOG Insulin Flexpen SUBQ SCH ×4 (06:15→20:28)
--- NOTE | 2019-05-13 07:29 | General Progress Note ---
Assessment/Plan Problem List: (1) COPD exacerbation ICD Codes: J44.1 - Chronic obstructive pulmonary disease with (acute) exacerbation SNOMED: 361806092 (2) Respiratory failure with hypoxia ICD Codes: J96.91 - Respiratory failure, unspecified with hypoxia SNOMED: 47023865068558419 (3) Diabetes mellitus ICD Codes: E11.9 - Type 2 diabetes mellitus without complications SNOMED: 31434624 (4) Pacemaker ICD Codes: Z95.0 - Presence of cardiac pacemaker SNOMED: 387906295 (5) Prostate cancer ICD Codes: C61 - Malignant neoplasm of prostate SNOMED: 628799165 (6) Hypothyroid ICD Codes: E03.9 - Hypothyroidism, unspecified SNOMED: 65042046 Status: stable Assessment/Plan: continue Levemir 24 units qam continue NISS ac / hs continue Levothyroxine 175 mcg qam repeat thyroid function in 2 weeks Subjective ROS Limited/Unobtainable: Yes Allergies: Coded Allergies: No Known Allergies (Unverified , 10/24/16) Subjective events noted refusing glucose check and insulin coverage Objective Last 24 Hour Vital Signs Date Time Temp Pulse Resp B/P (MAP) Pulse Ox O2 Delivery O2 Flow Rate FiO2 05/13/19 04:00 97.6 79 18 127/77 (94) 94 73 05/13/19 00:00 98.1 79 18 137/76 (96) 95 79 05/12/19 21:00 Room Air 05/12/19 20:38 92 Nasal Cannula 2.0 28 05/12/19 20:38 78 18 96 Nasal Cannula 2.0 28 78 20 92 05/12/19 20:38 78 20 92 Nasal Cannula 2.0 28 05/12/19 20:00 97.4 75 22 133/74 (93) 95 05/12/19 16:00 98.0 70 20 142/68 (92) 98 05/12/19 12:00 97.7 71 18 118/76 (90) 98 05/12/19 09:31 93 113/73 05/12/19 08:00 98.0 93 18 113/73 (86) 92 05/12/19 07:46 93 Room Air 21 05/12/19 07:45 Room Air Intake and Output 05/12/19 05/13/19 19:00 07:00 Intake Total 740 ml Output Total 1000 ml 650 ml Balance -260 ml -650 ml Intake Oral 740 ml Output Urine Total 1000 ml 650 ml Height (Feet): 6 Height (Inches): 0.00 Weight (Pounds): 0 General Appearance: no apparent distress Neck: normal alignment Cardiovascular: normal rate Respiratory/Chest: lungs clear Abdomen: normal bowel sounds Objective Current Medications Medications (Trade) Dose Ordered Sig/Dejon Route PRN Reason Start Time Stop Time Status Last Admin Dose Admin Acetaminophen (Tylenol) 650 mg Q4H PRN ORAL fever 05/01/19 19:14 05/31/19 19:13 05/02/19 01:18 Acetaminophen/ Hydrocodone Bitart ([place] 5/325) 1 tab Q6H PRN ORAL Severe Pain (Pain Scale 7-10) 05/07/19 15:30 05/14/19 15:29 05/12/19 18:11 Albuterol/ Ipratropium (Albuterol/ Ipratropium) 3 ml Q4H PRN HHN Shortness of Breath 05/08/19 22:15 05/13/19 22:14 05/12/19 20:38 Amikacin Sulfate (Amikin) 500 mg Q12H INH 05/12/19 22:00 05/19/19 21:59 Apixaban (Eliquis) 5 mg BID ORAL 05/02/19 09:00 06/06/19 08:59 05/12/19 18:05 Carvedilol (Coreg) 6.25 mg EVERY 12 HOURS ORAL 05/07/19 21:00 05/15/19 08:59 05/12/19 09:31 Clonidine HCl (Catapres Tab) 0.1 mg Q4H PRN ORAL sbp more than 160 05/01/19 19:14 05/31/19 19:13 Clotrimazole (Lotrimin) 1 applic THREE TIMES A DAY TOPIC 05/02/19 09:00 05/20/19 12:59 05/10/19 08:56 Dextrose (Dextrose 50%) 25 ml Q30M PRN IV Hypoglycemia 05/07/19 15:00 05/15/19 10:59 Dextrose (Dextrose 50%) 50 ml Q30M PRN IV Hypoglycemia 05/07/19 15:00 05/15/19 02:59 Docusate Sodium (Colace) 100 mg TWICE A DAY ORAL 05/02/19 09:00 05/31/19 08:59 05/12/19 18:05 Escitalopram Oxalate (Lexapro) 10 mg DAILY ORAL 05/02/19 09:00 05/27/19 08:59 05/12/19 09:31 Insulin Aspart (NovoLOG) BEFORE MEALS AND HS SUBQ 05/07/19 16:30 05/15/19 08:59 05/10/19 12:42 Levothyroxine Sodium (Synthroid) 75 mcg ACBREAKFAST ORAL 05/02/19 06:30 05/27/19 06:29 05/13/19 06:10 Levothyroxine Sodium (Synthroid) 100 mcg ACBREAKFAST ORAL 05/08/19 06:30 05/15/19 06:29 05/13/19 06:10 Nitroglycerin (Ntg) 0.4 mg Q5M X 3 DOSES PRN SL Prn Chest Pain 05/07/19 15:30 06/06/19 15:29 Ondansetron HCl (Zofran) 4 mg Q6H PRN IVP Nausea & Vomiting 05/01/19 19:16 05/31/19 19:15 Oxymetazoline HCl (Afrin Nasal [place]) 1 spray Q6H PRN NASAL nasal congestion 05/01/19 19:16 05/31/19 19:15 Pantoprazole (Protonix) 40 mg EVERY 12 HOURS ORAL 05/06/19 21:00 06/05/19 20:59 05/12/19 09:31 Polyethylene Glycol (Miralax) 17 gm BEDTIME ORAL 05/01/19 21:00 05/31/19 20:59 05/11/19 20:47 Promethazine HCl/ Codeine (Phenergan with Codeine) 5 ml Q6H PRN ORAL cough 05/01/19 19:17 05/31/19 19:16 05/04/19 21:01 Tamsulosin HCl (Flomax) 0.4 mg BEDTIME ORAL 05/07/19 21:00 05/15/19 20:59 05/11/19 20:47 Geovanni To MD May 13, 2019 07:29
[2019-05-13 08:00] VITALS: BP 123/84
[2019-05-13] MEDS: HYDROcodone/Acetamin 5/325 tab ORAL PRN ×2 (08:59→17:40)
[2019-05-13] MEDS: Eliquis 5mg tablet ORAL SCH ×2 (08:59→17:37)
[2019-05-13] MEDS: Carvedilol 6.25mg Tab ORAL SCH ×2 (08:59→20:23)
[2019-05-13] MEDS: Docusate 100mg cap ORAL SCH ×2 (09:00→17:37)
[2019-05-13 11:54] VITALS: BP 118/78
--- NOTE | 2019-05-13 11:59 | General Progress Note ---
Assessment/Plan Status: stable Assessment/Plan: Assessment/Plan Problems: (1) Diabetes mellitus ICD Codes: E11.9 - Type 2 diabetes mellitus without complications SNOMED: 85191176 (2) Anemia ICD Codes: D64.9 - Anemia, unspecified Assessment/Plan This is a 73-year-old male with COPD exacerbation and new-onset diabetes given hemoglobin A1c is high. s/p EGD stable H&H needs out patient fu fo colonoscopy Subjective ROS Limited/Unobtainable: No Allergies: Coded Allergies: No Known Allergies (Unverified , 10/24/16) Objective Last 24 Hour Vital Signs Date Time Temp Pulse Resp B/P (MAP) Pulse Ox O2 Delivery O2 Flow Rate FiO2 05/13/19 11:54 98.7 70 20 118/78 (91) 95 73 05/13/19 09:29 97.1 05/13/19 08:59 73 123/84 05/13/19 08:30 Room Air 05/13/19 08:00 97.1 84 19 123/84 (97) 94 73 05/13/19 04:00 97.6 79 18 127/77 (94) 94 73 05/13/19 00:00 98.1 79 18 137/76 (96) 95 79 05/12/19 21:00 Room Air 05/12/19 20:38 92 Nasal Cannula 2.0 28 05/12/19 20:38 78 18 96 Nasal Cannula 2.0 28 78 20 92 05/12/19 20:38 78 20 92 Nasal Cannula 2.0 28 05/12/19 20:00 97.4 75 22 133/74 (93) 95 05/12/19 16:00 98.0 70 20 142/68 (92) 98 05/12/19 12:00 97.7 71 18 118/76 (90) 98 Intake and Output 05/12/19 05/13/19 19:00 07:00 Intake Total 740 ml Output Total 1000 ml 650 ml Balance -260 ml -650 ml Intake Oral 740 ml Output Urine Total 1000 ml 650 ml Height (Feet): 6 Height (Inches): 0.00 Weight (Pounds): 0 General Appearance: alert EENT: PERRL/EOMI Neck: supple Cardiovascular: normal rate Respiratory/Chest: decreased breath sounds Abdomen: normal bowel sounds, non tender, soft Extremities: non-tender Vosoghi,Christiano MD May 13, 2019 11:58
--- NOTE | 2019-05-13 12:13 | Internal Med Progress Note ---
Subjective Physician Name Jewel Giraldo Attending Physician Jewel Giraldo MD Current Medications Medications (Trade) Dose Ordered Sig/Dejon Route PRN Reason Start Time Stop Time Status Last Admin Dose Admin Acetaminophen (Tylenol) 650 mg Q4H PRN ORAL fever 05/01/19 19:14 05/31/19 19:13 05/02/19 01:18 Acetaminophen/ Hydrocodone Bitart ([place] 5/325) 1 tab Q6H PRN ORAL Severe Pain (Pain Scale 7-10) 05/07/19 15:30 05/14/19 15:29 05/13/19 08:59 Albuterol/ Ipratropium (Albuterol/ Ipratropium) 3 ml Q4H PRN HHN Shortness of Breath 05/08/19 22:15 05/13/19 22:14 05/12/19 20:38 Amikacin Sulfate (Amikin) 500 mg Q12HRT INH 05/13/19 10:00 05/19/19 21:59 Apixaban (Eliquis) 5 mg BID ORAL 05/02/19 09:00 06/06/19 08:59 05/13/19 08:59 Carvedilol (Coreg) 6.25 mg EVERY 12 HOURS ORAL 05/07/19 21:00 05/15/19 08:59 05/13/19 08:59 Clonidine HCl (Catapres Tab) 0.1 mg Q4H PRN ORAL sbp more than 160 05/01/19 19:14 05/31/19 19:13 Clotrimazole (Lotrimin) 1 applic THREE TIMES A DAY TOPIC 05/02/19 09:00 05/20/19 12:59 05/10/19 08:56 Dextrose (Dextrose 50%) 25 ml Q30M PRN IV Hypoglycemia 05/07/19 15:00 05/15/19 10:59 Dextrose (Dextrose 50%) 50 ml Q30M PRN IV Hypoglycemia 05/07/19 15:00 05/15/19 02:59 Docusate Sodium (Colace) 100 mg TWICE A DAY ORAL 05/02/19 09:00 05/31/19 08:59 05/12/19 18:05 Escitalopram Oxalate (Lexapro) 10 mg DAILY ORAL 05/02/19 09:00 05/27/19 08:59 05/13/19 08:59 Insulin Aspart (NovoLOG) BEFORE MEALS AND HS SUBQ 05/07/19 16:30 05/15/19 08:59 05/10/19 12:42 Levothyroxine Sodium (Synthroid) 75 mcg ACBREAKFAST ORAL 05/02/19 06:30 05/27/19 06:29 05/13/19 06:10 Levothyroxine Sodium (Synthroid) 100 mcg ACBREAKFAST ORAL 05/08/19 06:30 05/15/19 06:29 05/13/19 06:10 Nitroglycerin (Ntg) 0.4 mg Q5M X 3 DOSES PRN SL Prn Chest Pain 05/07/19 15:30 06/06/19 15:29 Ondansetron HCl (Zofran) 4 mg Q6H PRN IVP Nausea & Vomiting 05/01/19 19:16 05/31/19 19:15 Oxymetazoline HCl (Afrin Nasal [place]) 1 spray Q6H PRN NASAL nasal congestion 05/01/19 19:16 05/31/19 19:15 Pantoprazole (Protonix) 40 mg EVERY 12 HOURS ORAL 05/06/19 21:00 06/05/19 20:59 05/13/19 08:59 Polyethylene Glycol (Miralax) 17 gm BEDTIME ORAL 05/01/19 21:00 05/31/19 20:59 05/11/19 20:47 Promethazine HCl/ Codeine (Phenergan with Codeine) 5 ml Q6H PRN ORAL cough 05/01/19 19:17 05/31/19 19:16 05/04/19 21:01 Tamsulosin HCl (Flomax) 0.4 mg BEDTIME ORAL 05/07/19 21:00 05/15/19 20:59 05/11/19 20:47 Allergies: Coded Allergies: No Known Allergies (Unverified , 10/24/16) Subjective Awake,alert, responsive, No CP, still SOB and wheezing, C/O difficulty swallowing, WBC: 11.5 Objective Last Vital Signs Date Time Temp Pulse Resp B/P (MAP) Pulse Ox O2 Delivery O2 Flow Rate FiO2 05/13/19 11:54 98.7 70 20 118/78 (91) 95 73 05/13/19 08:30 Room Air 3/4/20 20:38 2.0 28 Intake and Output 05/12/19 05/13/19 19:00 07:00 Intake Total 740 ml Output Total 1000 ml 650 ml Balance -260 ml -650 ml Intake Oral 740 ml Output Urine Total 1000 ml 650 ml Objective GENERAL: Awake, responsive, no acute distress. HEAD AND NECK: Pupils are equal and reactive to light. Extraocular muscles intact. Neck was supple. No JVD. LUNGS: Decrease air entry at bases. + Expiratory wheezes, No rales. HEART: S1, S2. Irregular. No murmur. pacemaker in the left-sided chest wall. ABDOMEN: Soft, nondistended, nontender. Morbid obesely. EXTREMITIES: No cyanosis, clubbing, edema. NEUROLOGIC: Cranial nerves II through XII grossly normal. Motor is 5/5 in all extremities. Gait is intact. RECTAL: Refused and deferred. PSYCHIATRIC: Mood and affect is intact. Assessment/Plan Assessment/Plan ASSESSMENT: 1. Acute hypoxemic respiratory failure, most likely secondary to acute COPD exacerbation. 2. Acute COPD exacerbation. 3. Pneumonia. 4. Sick sinus syndrome status post pacemaker. 5. Diabetes type 2. 6. Prostate cancer. 7. Hyperkalemia. 8. Insulin induced hyperglycemia. 9. Prostate enlargement. PLAN: broad-spectrum antibiotic : Amikacin inhaler Code status is Full Code. DVT prophylaxis: Eliquis. monitor cultures and laboratory. Follow up with Dr. Goldie Obrien, Pulmonary Critical Care consultation. Start Nystatin Po Jewel Giraldo MD May 13, 2019 12:13
[2019-05-13] MEDS: Nystatin Susp 500,000 units/5ml ORAL SCH ×3 (12:53→20:22)
--- NOTE | 2019-05-13 12:59 | Pulmonology Progress Note ---
Assessment/Plan Problems: (1) COPD exacerbation (2) Nosocomial pneumonia (3) Respiratory failure with hypoxia (4) Pacemaker (5) Anemia (6) Prostate cancer (7) Diabetes mellitus Assessment/Plan large amount of putrid phlegm will start on Amikacin inhalation( is not given yet) on nasal cannula now on and off bipap repeat cxr in am high wbc , persistent Subjective ROS Limited/Unobtainable: No Constitutional: Reports: no symptoms HEENT: Repors: no symptoms Allergies: Coded Allergies: No Known Allergies (Unverified , 10/24/16) Objective Last 24 Hour Vital Signs Date Time Temp Pulse Resp B/P (MAP) Pulse Ox O2 Delivery O2 Flow Rate FiO2 05/13/19 11:54 98.7 70 20 118/78 (91) 95 73 05/13/19 09:29 97.1 05/13/19 08:59 73 123/84 05/13/19 08:30 Room Air 05/13/19 08:00 97.1 84 19 123/84 (97) 94 73 05/13/19 04:00 97.6 79 18 127/77 (94) 94 73 05/13/19 00:00 98.1 79 18 137/76 (96) 95 79 05/12/19 21:00 Room Air 05/12/19 20:38 92 Nasal Cannula 2.0 28 05/12/19 20:38 78 18 96 Nasal Cannula 2.0 28 78 20 92 05/12/19 20:38 78 20 92 Nasal Cannula 2.0 28 05/12/19 20:00 97.4 75 22 133/74 (93) 95 05/12/19 16:00 98.0 70 20 142/68 (92) 98 Intake and Output 05/12/19 05/13/19 19:00 07:00 Intake Total 740 ml Output Total 1000 ml 650 ml Balance -260 ml -650 ml Intake Oral 740 ml Output Urine Total 1000 ml 650 ml General Appearance: WD/WN, no acute distress HEENT: atraumatic, anicteric Respiratory/Chest: chest wall non-tender, lungs clear, crackles/rales, expiratory wheezing Cardiovascular: normal peripheral pulses, normal rate Abdomen: normal bowel sounds, soft, non tender Genitourinary: normal external genitalia Extremities: no cyanosis Skin: no rash Current Medications Medications (Trade) Dose Ordered Sig/Dejon Route PRN Reason Start Time Stop Time Status Last Admin Dose Admin Acetaminophen (Tylenol) 650 mg Q4H PRN ORAL fever 05/01/19 19:14 05/31/19 19:13 05/02/19 01:18 Acetaminophen/ Hydrocodone Bitart ([place] 5/325) 1 tab Q6H PRN ORAL Severe Pain (Pain Scale 7-10) 05/07/19 15:30 05/14/19 15:29 05/13/19 08:59 Albuterol/ Ipratropium (Albuterol/ Ipratropium) 3 ml Q4H PRN HHN Shortness of Breath 05/08/19 22:15 05/13/19 22:14 05/12/19 20:38 Amikacin Sulfate (Amikin) 500 mg Q12HRT INH 05/13/19 10:00 05/19/19 21:59 Apixaban (Eliquis) 5 mg BID ORAL 05/02/19 09:00 06/06/19 08:59 05/13/19 08:59 Carvedilol (Coreg) 6.25 mg EVERY 12 HOURS ORAL 05/07/19 21:00 05/15/19 08:59 05/13/19 08:59 Clonidine HCl (Catapres Tab) 0.1 mg Q4H PRN ORAL sbp more than 160 05/01/19 19:14 05/31/19 19:13 Clotrimazole (Lotrimin) 1 applic THREE TIMES A DAY TOPIC 05/02/19 09:00 05/20/19 12:59 05/10/19 08:56 Dextrose (Dextrose 50%) 25 ml Q30M PRN IV Hypoglycemia 05/07/19 15:00 05/15/19 10:59 Dextrose (Dextrose 50%) 50 ml Q30M PRN IV Hypoglycemia 05/07/19 15:00 05/15/19 02:59 Docusate Sodium (Colace) 100 mg TWICE A DAY ORAL 05/02/19 09:00 05/31/19 08:59 05/12/19 18:05 Escitalopram Oxalate (Lexapro) 10 mg DAILY ORAL 05/02/19 09:00 05/27/19 08:59 05/13/19 08:59 Insulin Aspart (NovoLOG) BEFORE MEALS AND HS SUBQ 05/07/19 16:30 05/15/19 08:59 05/10/19 12:42 Levothyroxine Sodium (Synthroid) 75 mcg ACBREAKFAST ORAL 05/02/19 06:30 05/27/19 06:29 05/13/19 06:10 Levothyroxine Sodium (Synthroid) 100 mcg ACBREAKFAST ORAL 05/08/19 06:30 05/15/19 06:29 05/13/19 06:10 Nitroglycerin (Ntg) 0.4 mg Q5M X 3 DOSES PRN SL Prn Chest Pain 05/07/19 15:30 06/06/19 15:29 Nystatin (Nystatin) 5 ml QID ORAL 05/13/19 13:00 05/20/19 12:59 05/13/19 12:53 Ondansetron HCl (Zofran) 4 mg Q6H PRN IVP Nausea & Vomiting 05/01/19 19:16 05/31/19 19:15 Oxymetazoline HCl (Afrin Nasal [place]) 1 spray Q6H PRN NASAL nasal congestion 05/01/19 19:16 05/31/19 19:15 Pantoprazole (Protonix) 40 mg EVERY 12 HOURS ORAL 05/06/19 21:00 06/05/19 20:59 05/13/19 08:59 Polyethylene Glycol (Miralax) 17 gm BEDTIME ORAL 05/01/19 21:00 05/31/19 20:59 05/11/19 20:47 Promethazine HCl/ Codeine (Phenergan with Codeine) 5 ml Q6H PRN ORAL cough 05/01/19 19:17 05/31/19 19:16 05/04/19 21:01 Tamsulosin HCl (Flomax) 0.4 mg BEDTIME ORAL 05/07/19 21:00 05/15/19 20:59 05/11/19 20:47 Goldie Obrien MD May 13, 2019 12:59
[2019-05-13] MEDS: Amikacin for Inhalation 2ML INH SCH ×2 (13:15→21:37)
[2019-05-13 16:00] VITALS: BP 109/74
--- NOTE | 2019-05-13 16:27 | Infectious Diseases Prog Note ---
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 No focal airspace consolidation. There is some atelectasis at the left lung base. -04/27 CXR: Borderline cardiomegaly. Questionable mild interstitial congestion , new or increased from previous study if real. -04/21 CTA chest:Somewhat limited exam, due to motion artifact. No definite evidence of pulmonary embolus or other acute thoracic vascular pathology. Borderline cardiomegaly. Diffuse bilateral pulmonary parenchymal groundglass opacity. Interspersed small bullae digestive this is due to COPD changes, but could also indicate a component of pulmonary edema. Considerable consolidation in the right lower lobe, likely pneumonia. Less extensive consolidation and atelectasis is seen at the left lung base. Pacemaker, degenerative spondylosis incidentally noted sp cx normal resp michael -04/19 CXR: Mild pulmonary vascular congestion -04/16 CXR: No acute disease -04/13 CXR: Suspected mild pulmonary vascular congestion. Correlate clinically -04/08 CXR: Mild pulmonary vascular congestion suspected Afebrile Leukocytosis,(pn steroids); improving Hyperglycemia Acute hypoxic respiratory failure ,on bipap PRN COPD CAD CHF prostate cancer s/p PPM former smoker Plan: - monitor pt off of AB RX - 05/05 Sp Ertapenem # 7/7 - 05/03 sp Vancomycin # 5 -04/28 SP Zosyn #8 -04/15 SP Levaquin #7 -04/08 SP Ceftriaxone x1, Azithromycin x1 -Monitor CBC/CMP, temperatures -aspiration precautions Thank you for this consultation. Will continue to follow along with you. Subjective Allergies: Coded Allergies: No Known Allergies (Unverified , 10/24/16) Subjective comfortable Objective Vital Signs Last 24 Hour Vital Signs Date Time Temp Pulse Resp B/P (MAP) Pulse Ox O2 Delivery O2 Flow Rate FiO2 05/13/19 11:54 98.7 70 20 118/78 (91) 95 73 05/13/19 09:29 97.1 05/13/19 08:59 73 123/84 05/13/19 08:30 Room Air 05/13/19 08:00 97.1 84 19 123/84 (97) 94 73 05/13/19 04:00 97.6 79 18 127/77 (94) 94 73 05/13/19 00:00 98.1 79 18 137/76 (96) 95 79 05/12/19 21:00 Room Air 05/12/19 20:38 92 Nasal Cannula 2.0 28 05/12/19 20:38 78 18 96 Nasal Cannula 2.0 28 78 20 92 05/12/19 20:38 78 20 92 Nasal Cannula 2.0 28 05/12/19 20:00 97.4 75 22 133/74 (93) 95 Height (Feet): 6 Height (Inches): 0.00 Weight (Pounds): 0 HEENT: anicteric Respiratory/Chest: no respiratory distress Cardiovascular: regular rhythm Abdomen: no organomegaly Current Medications Medications (Trade) Dose Ordered Sig/Dejon Route PRN Reason Start Time Stop Time Status Last Admin Dose Admin Acetaminophen (Tylenol) 650 mg Q4H PRN ORAL fever 05/01/19 19:14 05/31/19 19:13 05/02/19 01:18 Acetaminophen/ Hydrocodone Bitart ([place] 5/325) 1 tab Q6H PRN ORAL Severe Pain (Pain Scale 7-10) 05/07/19 15:30 05/14/19 15:29 05/13/19 08:59 Albuterol/ Ipratropium (Albuterol/ Ipratropium) 3 ml Q4H PRN HHN Shortness of Breath 05/08/19 22:15 05/13/19 22:14 05/12/19 20:38 Amikacin Sulfate (Amikin) 500 mg Q12HRT INH 05/13/19 10:00 05/19/19 21:59 05/13/19 13:15 Apixaban (Eliquis) 5 mg BID ORAL 05/02/19 09:00 06/06/19 08:59 05/13/19 08:59 Carvedilol (Coreg) 6.25 mg EVERY 12 HOURS ORAL 05/07/19 21:00 05/15/19 08:59 05/13/19 08:59 Clonidine HCl (Catapres Tab) 0.1 mg Q4H PRN ORAL sbp more than 160 05/01/19 19:14 05/31/19 19:13 Clotrimazole (Lotrimin) 1 applic THREE TIMES A DAY TOPIC 05/02/19 09:00 05/20/19 12:59 3/2/20 08:56 Dextrose (Dextrose 50%) 25 ml Q30M PRN IV Hypoglycemia 05/07/19 15:00 05/15/19 10:59 Dextrose (Dextrose 50%) 50 ml Q30M PRN IV Hypoglycemia 05/07/19 15:00 05/15/19 02:59 Docusate Sodium (Colace) 100 mg TWICE A DAY ORAL 05/02/19 09:00 05/31/19 08:59 05/12/19 18:05 Escitalopram Oxalate (Lexapro) 10 mg DAILY ORAL 05/02/19 09:00 05/27/19 08:59 05/13/19 08:59 Insulin Aspart (NovoLOG) BEFORE MEALS AND HS SUBQ 05/07/19 16:30 05/15/19 08:59 05/10/19 12:42 Levothyroxine Sodium (Synthroid) 75 mcg ACBREAKFAST ORAL 05/02/19 06:30 05/27/19 06:29 05/13/19 06:10 Levothyroxine Sodium (Synthroid) 100 mcg ACBREAKFAST ORAL 05/08/19 06:30 05/15/19 06:29 05/13/19 06:10 Nitroglycerin (Ntg) 0.4 mg Q5M X 3 DOSES PRN SL Prn Chest Pain 05/07/19 15:30 06/06/19 15:29 Nystatin (Nystatin) 5 ml QID ORAL 05/13/19 13:00 05/20/19 12:59 05/13/19 12:53 Ondansetron HCl (Zofran) 4 mg Q6H PRN IVP Nausea & Vomiting 05/01/19 19:16 05/31/19 19:15 Oxymetazoline HCl (Afrin Nasal [place]) 1 spray Q6H PRN NASAL nasal congestion 05/01/19 19:16 05/31/19 19:15 Pantoprazole (Protonix) 40 mg EVERY 12 HOURS ORAL 05/06/19 21:00 06/05/19 20:59 05/13/19 08:59 Polyethylene Glycol (Miralax) 17 gm BEDTIME ORAL 05/01/19 21:00 05/31/19 20:59 05/11/19 20:47 Promethazine HCl/ Codeine (Phenergan with Codeine) 5 ml Q6H PRN ORAL cough 05/01/19 19:17 05/31/19 19:16 05/04/19 21:01 Tamsulosin HCl (Flomax) 0.4 mg BEDTIME ORAL 05/07/19 21:00 05/15/19 20:59 05/11/19 20:47 Robert Canela MD May 13, 2019 16:27
[2019-05-13 20:00] VITALS: BP 122/86
[2019-05-13] MEDS: Tamsulosin 0.4mg cap ORAL SCH (20:23)
[2019-05-13] MEDS: Albuterol/Ipratropium 3ml neb HHN PRN (20:43)
[2019-05-13] MEDS: Miralax 17gm pkt ORAL SCH (21:00)
[2019-05-14] VITALS: BP 113/77
[2019-05-14] MEDS: Albuterol/Ipratropium 3ml neb HHN PRN ×2 (01:33→20:11)
[2019-05-14] MEDS: HYDROcodone/Acetamin 5/325 tab ORAL PRN ×2 (01:36→15:50)
[2019-05-14 04:00] VITALS: BP 121/81
--- NOTE | 2019-05-14 04:30 | Progress Note ---
DATE: 05/13/2019 SUBJECTIVE: The patient is in bed. No acute distress noted. Noncompliant. The patient continues to have behavior issues. The patient . The patient is abusive towards the staff, the same. Mental condition is unchanged. Unable to discuss his care and situation. The patient is disrespectful. MENTAL STATUS EXAMINATION: The patient is alert and oriented times self. Mood is neutral. Affect is flat. Thought process is concrete. Thought content, no suicidal or homicidal ideation. ASSESSMENT: Stable. PLAN: We will continue current medications. Ottoniel Hillman M.D. DR: ELENA JOB#: [id number] CC: [email or web address]
[2019-05-14] MEDS: NovoLOG Insulin Flexpen SUBQ SCH ×4 (05:39→21:03)
--- NOTE | 2019-05-14 06:24 | General Progress Note ---
Assessment/Plan Problem List: (1) COPD exacerbation ICD Codes: J44.1 - Chronic obstructive pulmonary disease with (acute) exacerbation SNOMED: 416152350 (2) Respiratory failure with hypoxia ICD Codes: J96.91 - Respiratory failure, unspecified with hypoxia SNOMED: 10428493690162104 (3) Diabetes mellitus ICD Codes: E11.9 - Type 2 diabetes mellitus without complications SNOMED: 19354226 (4) Pacemaker ICD Codes: Z95.0 - Presence of cardiac pacemaker SNOMED: 166376400 (5) Prostate cancer ICD Codes: C61 - Malignant neoplasm of prostate SNOMED: 649772587 (6) Hypothyroid ICD Codes: E03.9 - Hypothyroidism, unspecified SNOMED: 94076126 Status: stable Assessment/Plan: continue Levemir 24 units qam continue NISS ac / hs continue Levothyroxine 175 mcg qam repeat thyroid function in 2 weeks Subjective Allergies: Coded Allergies: No Known Allergies (Unverified , 10/24/16) Subjective events noted refusing glucose check and insulin coverage Item Value Date Time Bedside Blood Glucose 158 mg/dl H 05/14/19 0539 Bedside Blood Glucose 122 mg/dl H 05/13/19 2100 Objective Last 24 Hour Vital Signs Date Time Temp Pulse Resp B/P (MAP) Pulse Ox O2 Delivery O2 Flow Rate FiO2 05/14/19 04:00 98.1 69 21 121/81 (94) 96 05/14/19 02:38 74 14 95 30 05/14/19 00:00 97.4 69 21 113/77 (89) 83 05/13/19 21:38 75 20 94 Nasal Cannula 2.0 28 72 18 91 05/13/19 21:00 Room Air 2.0 05/13/19 20:43 84 18 97 Room Air 21 82 20 96 05/13/19 20:23 70 122/86 05/13/19 20:00 98.0 70 20 122/86 (98) 87 05/13/19 19:23 90 Room Air 21 05/13/19 19:23 70 18 90 Room Air 21 05/13/19 16:00 98.4 81 21 109/74 (86) 93 05/13/19 13:15 97 20 97 Nasal Cannula 2.0 28 94 18 94 05/13/19 11:54 98.7 70 20 118/78 (91) 95 73 05/13/19 09:29 97.1 05/13/19 08:59 73 123/84 05/13/19 08:30 Room Air 05/13/19 08:00 97.1 84 19 123/84 (97) 94 73 05/13/19 07:50 94 Nasal Cannula 2.0 28 05/13/19 07:50 86 18 94 Nasal Cannula 2.0 28 Intake and Output 05/13/19 05/14/19 19:00 07:00 Output Total 1300 ml Balance -1300 ml Output Urine Total 1300 ml Laboratory Tests 05/14/19 05:00: White Blood Count [Pending], Red Blood Count [Pending], Hemoglobin [Pending], Hematocrit [Pending], Mean Corpuscular Volume [Pending], Mean Corpuscular Hemoglobin [Pending], Mean Corpuscular Hemoglobin Concent [Pending], Red Cell Distribution Width [Pending], Platelet Count [Pending], Mean Platelet Volume [ Pending], Neutrophils (%) (Auto) [Pending], Lymphocytes (%) (Auto) [Pending], Monocytes (%) (Auto) [Pending], Eosinophils (%) (Auto) [Pending], Basophils (%) (Auto) [Pending], Sodium Level [Pending], Potassium Level [Pending], Chloride Level [Pending], Carbon Dioxide Level [Pending], Blood Urea Nitrogen [Pending], Creatinine [Pending], Estimat Glomerular Filtration Rate [Pending], Glucose Level [Pending], Calcium Level [Pending], Total Bilirubin [Pending], Aspartate Amino Transf (AST/SGOT) [Pending], Alanine Aminotransferase (ALT/SGPT) [Pending] , Alkaline Phosphatase [Pending], Pro-B-Type Natriuretic Peptide [Pending], Total Protein [Pending], Albumin [Pending], Globulin [Pending] Height (Feet): 6 Height (Inches): 0.00 Weight (Pounds): 0 General Appearance: no apparent distress Neck: normal alignment Cardiovascular: normal rate Respiratory/Chest: decreased breath sounds Abdomen: normal bowel sounds Objective Current Medications Medications (Trade) Dose Ordered Sig/Dejon Route PRN Reason Start Time Stop Time Status Last Admin Dose Admin Acetaminophen (Tylenol) 650 mg Q4H PRN ORAL fever 05/01/19 19:14 05/31/19 19:13 05/02/19 01:18 Acetaminophen/ Hydrocodone Bitart ([place] 5/325) 1 tab Q6H PRN ORAL Severe Pain (Pain Scale 7-10) 05/07/19 15:30 05/14/19 15:29 05/14/19 01:36 Albuterol/ Ipratropium (Albuterol/ Ipratropium) 3 ml Q4HRT PRN HHN Shortness of Breath 05/14/19 01:30 05/19/19 01:29 05/14/19 01:33 Amikacin Sulfate (Amikin) 500 mg Q12HRT INH 05/13/19 10:00 05/19/19 21:59 05/13/19 21:37 Apixaban (Eliquis) 5 mg BID ORAL 05/02/19 09:00 06/06/19 08:59 05/13/19 17:37 Carvedilol (Coreg) 6.25 mg EVERY 12 HOURS ORAL 05/07/19 21:00 05/15/19 08:59 05/13/19 20:23 Clonidine HCl (Catapres Tab) 0.1 mg Q4H PRN ORAL sbp more than 160 05/01/19 19:14 05/31/19 19:13 Clotrimazole (Lotrimin) 1 applic THREE TIMES A DAY TOPIC 05/02/19 09:00 05/20/19 12:59 05/10/19 08:56 Dextrose (Dextrose 50%) 25 ml Q30M PRN IV Hypoglycemia 05/07/19 15:00 05/15/19 10:59 Dextrose (Dextrose 50%) 50 ml Q30M PRN IV Hypoglycemia 05/07/19 15:00 05/15/19 02:59 Docusate Sodium (Colace) 100 mg TWICE A DAY ORAL 05/02/19 09:00 05/31/19 08:59 05/13/19 17:37 Escitalopram Oxalate (Lexapro) 10 mg DAILY ORAL 05/02/19 09:00 05/27/19 08:59 05/13/19 08:59 Insulin Aspart (NovoLOG) BEFORE MEALS AND HS SUBQ 05/07/19 16:30 05/15/19 08:59 05/14/19 05:39 Levothyroxine Sodium (Synthroid) 75 mcg ACBREAKFAST ORAL 05/02/19 06:30 05/27/19 06:29 05/14/19 05:36 Levothyroxine Sodium (Synthroid) 100 mcg ACBREAKFAST ORAL 05/08/19 06:30 05/15/19 06:29 05/14/19 05:36 Nitroglycerin (Ntg) 0.4 mg Q5M X 3 DOSES PRN SL Prn Chest Pain 05/07/19 15:30 06/06/19 15:29 Nystatin (Nystatin) 5 ml QID ORAL 05/13/19 13:00 05/20/19 12:59 05/13/19 20:22 Ondansetron HCl (Zofran) 4 mg Q6H PRN IVP Nausea & Vomiting 05/01/19 19:16 05/31/19 19:15 Oxymetazoline HCl (Afrin Nasal [place]) 1 spray Q6H PRN NASAL nasal congestion 05/01/19 19:16 05/31/19 19:15 Pantoprazole (Protonix) 40 mg EVERY 12 HOURS ORAL 05/06/19 21:00 06/05/19 20:59 05/13/19 20:23 Polyethylene Glycol (Miralax) 17 gm BEDTIME ORAL 05/01/19 21:00 05/31/19 20:59 05/11/19 20:47 Promethazine HCl/ Codeine (Phenergan with Codeine) 5 ml Q6H PRN ORAL cough 05/01/19 19:17 05/31/19 19:16 05/04/19 21:01 Tamsulosin HCl (Flomax) 0.4 mg BEDTIME ORAL 05/07/19 21:00 05/15/19 20:59 05/13/19 20:23 Geovanni To MD May 14, 2019 06:24
[2019-05-14 06:36] LABS: BASOPHILS % (AUTO) 1.2 % (0.0-2.0); HEMATOCRIT 40.7 % (42.0-52.0); HEMOGLOBIN 13.2 G/DL (14.2-18.0); LYMPHOCYTES % (AUTO) 20.5 % (20.0-45.0); MEAN CORPUSCULAR VOLUME 92 FL (80-99); MONOCYTES % (AUTO) 7.2 % (1.0-10.0); NEUTROPHILS % (AUTO) 61.1 % (45.0-75.0); PLATELET COUNT 308 K/UL (150-450); RED BLOOD COUNT 4.45 M/UL (4.70-6.10); RED CELL DISTRIBUTION WIDTH 14.4 % (11.6-14.8)
[2019-05-14 07:22] LABS: ALANINE AMINOTRANSFERASE 37 U/L (12-78); ALBUMIN/GLOBULIN RATIO 0.8 (1.0-2.7); ALKALINE PHOSPHATASE 87 U/L (46-116); ANION GAP 9 mmol/L (5-15); ASPARTATE AMINO TRANSFERASE 17 U/L (15-37); BILIRUBIN,TOTAL 0.2 MG/DL (0.2-1.0); BLOOD UREA NITROGEN 18 mg/dL (7-18); CALCIUM 8.8 MG/DL (8.5-10.1); CARBON DIOXIDE 28 MMOL/L (21-32); CHLORIDE 104 MMOL/L (98-107); CREATININE 0.9 MG/DL (0.55-1.30); POTASSIUM 4.3 MMOL/L (3.5-5.1); SODIUM 141 MMOL/L (136-145)
[2019-05-14 08:00] VITALS: BP 132/79
[2019-05-14] MEDS: Carvedilol 6.25mg Tab ORAL SCH ×2 (09:00→21:01)
[2019-05-14] MEDS: Eliquis 5mg tablet ORAL SCH ×2 (09:00→18:00)
[2019-05-14] MEDS: Docusate 100mg cap ORAL SCH ×2 (09:00→18:00)
[2019-05-14] MEDS: Nystatin Susp 500,000 units/5ml ORAL SCH ×4 (09:00→21:01)
[2019-05-14] MEDS: Amikacin for Inhalation 2ML INH SCH ×2 (09:52→23:02)
--- NOTE | 2019-05-14 09:53 | Infectious Diseases Prog Note ---
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 No focal airspace consolidation. There is some atelectasis at the left lung base. -04/27 CXR: Borderline cardiomegaly. Questionable mild interstitial congestion , new or increased from previous study if real. -04/21 CTA chest:Somewhat limited exam, due to motion artifact. No definite evidence of pulmonary embolus or other acute thoracic vascular pathology. Borderline cardiomegaly. Diffuse bilateral pulmonary parenchymal groundglass opacity. Interspersed small bullae digestive this is due to COPD changes, but could also indicate a component of pulmonary edema. Considerable consolidation in the right lower lobe, likely pneumonia. Less extensive consolidation and atelectasis is seen at the left lung base. Pacemaker, degenerative spondylosis incidentally noted sp cx normal resp michael -04/19 CXR: Mild pulmonary vascular congestion -04/16 CXR: No acute disease -04/13 CXR: Suspected mild pulmonary vascular congestion. Correlate clinically -04/08 CXR: Mild pulmonary vascular congestion suspected Afebrile Leukocytosis,(pn steroids); improving Hyperglycemia Acute hypoxic respiratory failure ,on bipap PRN COPD CAD CHF prostate cancer s/p PPM former smoker Plan: - Amikacin INH # 3 ( as per Pul) - 05/05 Sp Ertapenem # 7/ - 05/03 sp Vancomycin # 5 -04/28 SP Zosyn #8 -04/15 SP Levaquin #7 -04/08 SP Ceftriaxone x1, Azithromycin x1 -Monitor CBC/CMP, temperatures -aspiration precautions Thank you for this consultation. Will continue to follow along with you. Subjective Allergies: Coded Allergies: No Known Allergies (Unverified , 10/24/16) Subjective cough improved Objective Vital Signs Last 24 Hour Vital Signs Date Time Temp Pulse Resp B/P (MAP) Pulse Ox O2 Delivery O2 Flow Rate FiO2 05/14/19 08:00 97.5 81 18 132/79 (96) 90 05/14/19 04:00 98.1 69 21 121/81 (94) 96 05/14/19 02:38 74 14 95 30 05/14/19 00:00 97.4 69 21 113/77 (89) 83 05/13/19 21:38 75 20 94 Nasal Cannula 2.0 28 72 18 91 05/13/19 21:00 Room Air 2.0 05/13/19 20:43 84 18 97 Room Air 21 82 20 96 05/13/19 20:23 70 122/86 05/13/19 20:00 98.0 70 20 122/86 (98) 87 05/13/19 19:23 90 Room Air 21 05/13/19 19:23 70 18 90 Room Air 21 05/13/19 16:00 98.4 81 21 109/74 (86) 93 05/13/19 13:15 97 20 97 Nasal Cannula 2.0 28 94 18 94 05/13/19 11:54 98.7 70 20 118/78 (91) 95 73 Height (Feet): 6 Height (Inches): 0.00 Weight (Pounds): 0 HEENT: atraumatic Respiratory/Chest: lungs clear Abdomen: soft, non tender, non distended Skin: no rash Laboratory Tests Test 05/14/19 05:00 White Blood Count 10.0 K/UL (4.8-10.8) Red Blood Count 4.45 M/UL (4.70-6.10) L Hemoglobin 13.2 G/DL (14.2-18.0) L Hematocrit 40.7 % (42.0-52.0) L Mean Corpuscular Volume 92 FL (80-99) Mean Corpuscular Hemoglobin 29.7 PG (27.0-31.0) Mean Corpuscular Hemoglobin Concent 32.5 G/DL (32.0-36.0) Red Cell Distribution Width 14.4 % (11.6-14.8) Platelet Count 308 K/UL (150-450) Mean Platelet Volume 6.5 FL (6.5-10.1) Neutrophils (%) (Auto) 61.1 % (45.0-75.0) Lymphocytes (%) (Auto) 20.5 % (20.0-45.0) Monocytes (%) (Auto) 7.2 % (1.0-10.0) Eosinophils (%) (Auto) 10.0 % (0.0-3.0) H Basophils (%) (Auto) 1.2 % (0.0-2.0) Sodium Level 141 MMOL/L (136-145) Potassium Level 4.3 MMOL/L (3.5-5.1) Chloride Level 104 MMOL/L (98-107) Carbon Dioxide Level 28 MMOL/L (21-32) Anion Gap 9 mmol/L (5-15) Blood Urea Nitrogen 18 mg/dL (7-18) Creatinine 0.9 MG/DL (0.55-1.30) Estimat Glomerular Filtration Rate > 60 mL/min (>60) Glucose Level 132 MG/DL (74-106) H Calcium Level 8.8 MG/DL (8.5-10.1) Total Bilirubin 0.2 MG/DL (0.2-1.0) Aspartate Amino Transf (AST/SGOT) 17 U/L (15-37) Alanine Aminotransferase (ALT/SGPT) 37 U/L (12-78) Alkaline Phosphatase 87 U/L (46-116) Pro-B-Type Natriuretic Peptide 152 pg/mL (0-125) H Total Protein 6.7 G/DL (6.4-8.2) Albumin 3.0 G/DL (3.4-5.0) L Globulin 3.7 g/dL Albumin/Globulin Ratio 0.8 (1.0-2.7) L Current Medications Medications (Trade) Dose Ordered Sig/Dejon Route PRN Reason Start Time Stop Time Status Last Admin Dose Admin Acetaminophen (Tylenol) 650 mg Q4H PRN ORAL fever 05/01/19 19:14 05/31/19 19:13 05/02/19 01:18 Acetaminophen/ Hydrocodone Bitart ([place] 5/325) 1 tab Q6H PRN ORAL Severe Pain (Pain Scale 7-10) 05/07/19 15:30 05/14/19 15:29 05/14/19 01:36 Albuterol/ Ipratropium (Albuterol/ Ipratropium) 3 ml Q4HRT PRN HHN Shortness of Breath 05/14/19 01:30 05/19/19 01:29 05/14/19 01:33 Amikacin Sulfate (Amikin) 500 mg Q12HRT INH 05/13/19 10:00 05/19/19 21:59 05/13/19 21:37 Apixaban (Eliquis) 5 mg BID ORAL 05/02/19 09:00 06/06/19 08:59 05/13/19 17:37 Carvedilol (Coreg) 6.25 mg EVERY 12 HOURS ORAL 05/07/19 21:00 05/15/19 08:59 05/13/19 20:23 Clonidine HCl (Catapres Tab) 0.1 mg Q4H PRN ORAL sbp more than 160 05/01/19 19:14 05/31/19 19:13 Clotrimazole (Lotrimin) 1 applic THREE TIMES A DAY TOPIC 05/02/19 09:00 05/20/19 12:59 05/10/19 08:56 Dextrose (Dextrose 50%) 25 ml Q30M PRN IV Hypoglycemia 05/07/19 15:00 05/15/19 10:59 Dextrose (Dextrose 50%) 50 ml Q30M PRN IV Hypoglycemia 05/07/19 15:00 05/15/19 02:59 Docusate Sodium (Colace) 100 mg TWICE A DAY ORAL 05/02/19 09:00 05/31/19 08:59 05/13/19 17:37 Escitalopram Oxalate (Lexapro) 10 mg DAILY ORAL 05/02/19 09:00 05/27/19 08:59 05/13/19 08:59 Insulin Aspart (NovoLOG) BEFORE MEALS AND HS SUBQ 05/07/19 16:30 05/15/19 08:59 05/14/19 05:39 Levothyroxine Sodium (Synthroid) 75 mcg ACBREAKFAST ORAL 05/02/19 06:30 05/27/19 06:29 05/14/19 05:36 Levothyroxine Sodium (Synthroid) 100 mcg ACBREAKFAST ORAL 05/08/19 06:30 05/15/19 06:29 05/14/19 05:36 Nitroglycerin (Ntg) 0.4 mg Q5M X 3 DOSES PRN SL Prn Chest Pain 05/07/19 15:30 06/06/19 15:29 Nystatin (Nystatin) 5 ml QID ORAL 05/13/19 13:00 05/20/19 12:59 05/13/19 20:22 Ondansetron HCl (Zofran) 4 mg Q6H PRN IVP Nausea & Vomiting 05/01/19 19:16 05/31/19 19:15 Oxymetazoline HCl (Afrin Nasal [place]) 1 spray Q6H PRN NASAL nasal congestion 05/01/19 19:16 05/31/19 19:15 Pantoprazole (Protonix) 40 mg EVERY 12 HOURS ORAL 05/06/19 21:00 06/05/19 20:59 05/13/19 20:23 Polyethylene Glycol (Miralax) 17 gm BEDTIME ORAL 05/01/19 21:00 05/31/19 20:59 05/11/19 20:47 Promethazine HCl/ Codeine (Phenergan with Codeine) 5 ml Q6H PRN ORAL cough 05/01/19 19:17 05/31/19 19:16 05/04/19 21:01 Tamsulosin HCl (Flomax) 0.4 mg BEDTIME ORAL 05/07/19 21:00 05/15/19 20:59 05/13/19 20:23 Robert Canela MD May 14, 2019 09:53
--- NOTE | 2019-05-14 11:18 | General Progress Note ---
Assessment/Plan Status: stable Assessment/Plan: Assessment/Plan Problems: (1) Diabetes mellitus ICD Codes: E11.9 - Type 2 diabetes mellitus without complications SNOMED: 74051472 (2) Anemia ICD Codes: D64.9 - Anemia, unspecified Assessment/Plan This is a 73-year-old male with COPD exacerbation and new-onset diabetes given hemoglobin A1c is high. s/p EGD stable H&H needs out patient fu fo colonoscopy Subjective ROS Limited/Unobtainable: Yes Allergies: Coded Allergies: No Known Allergies (Unverified , 10/24/16) Objective Last 24 Hour Vital Signs Date Time Temp Pulse Resp B/P (MAP) Pulse Ox O2 Delivery O2 Flow Rate FiO2 05/14/19 10:13 102 22 99 30 05/14/19 10:11 91 Nasal Cannula 2.0 28 05/14/19 10:11 102 24 99 Nasal Cannula 2.0 28 101 24 91 05/14/19 10:10 102 28 91 Nasal Cannula 2.0 28 05/14/19 09:00 Bi-pap 05/14/19 08:00 97.5 81 18 132/79 (96) 90 05/14/19 04:00 98.1 69 21 121/81 (94) 96 05/14/19 02:38 74 14 95 30 05/14/19 00:00 97.4 69 21 113/77 (89) 83 05/13/19 21:38 75 20 94 Nasal Cannula 2.0 28 72 18 91 05/13/19 21:00 Room Air 2.0 05/13/19 20:43 84 18 97 Room Air 21 82 20 96 05/13/19 20:23 70 122/86 05/13/19 20:00 98.0 70 20 122/86 (98) 87 05/13/19 19:23 90 Room Air 21 05/13/19 19:23 70 18 90 Room Air 21 05/13/19 16:00 98.4 81 21 109/74 (86) 93 05/13/19 13:15 97 20 97 Nasal Cannula 2.0 28 94 18 94 05/13/19 11:54 98.7 70 20 118/78 (91) 95 73 Intake and Output 05/13/19 05/14/19 19:00 07:00 Output Total 1300 ml Balance -1300 ml Output Urine Total 1300 ml Laboratory Tests 05/14/19 05:00: White Blood Count 10.0, Red Blood Count 4.45L, Hemoglobin 13.2L, Hematocrit 40.7L, Mean Corpuscular Volume 92, Mean Corpuscular Hemoglobin 29.7, Mean Corpuscular Hemoglobin Concent 32.5, Red Cell Distribution Width 14.4, Platelet Count 308, Mean Platelet Volume 6.5, Neutrophils (%) (Auto) 61.1, Lymphocytes (% ) (Auto) 20.5, Monocytes (%) (Auto) 7.2, Eosinophils (%) (Auto) 10.0H, Basophils (%) (Auto) 1.2, Sodium Level 141, Potassium Level 4.3, Chloride Level 104, Carbon Dioxide Level 28, Anion Gap 9, Blood Urea Nitrogen 18, Creatinine 0.9, Estimat Glomerular Filtration Rate > 60, Glucose Level 132H, Calcium Level 8.8, Total Bilirubin 0.2, Aspartate Amino Transf (AST/SGOT) 17, Alanine Aminotransferase (ALT/SGPT) 37, Alkaline Phosphatase 87, Pro-B-Type Natriuretic Peptide 152H, Total Protein 6.7, Albumin 3.0L, Globulin 3.7, Albumin/Globulin Ratio 0.8L Height (Feet): 6 Height (Inches): 0.00 Weight (Pounds): 0 General Appearance: alert EENT: normal ENT inspection Neck: supple Cardiovascular: normal rate Respiratory/Chest: decreased breath sounds Abdomen: normal bowel sounds, non tender, soft Extremities: non-tender Christiano La MD May 14, 2019 11:18
--- NOTE | 2019-05-14 11:26 | Pulmonology Progress Note ---
Assessment/Plan Problems: (1) COPD exacerbation (2) Nosocomial pneumonia (3) Respiratory failure with hypoxia (4) Pacemaker (5) Anemia (6) Prostate cancer (7) Diabetes mellitus Assessment/Plan large amount of putrid phlegm will start on Amikacin inhalation on nasal cannula now on and off bipap wbc becoming normal Subjective ROS Limited/Unobtainable: No Interval Events: on BIPAP again Constitutional: Reports: no symptoms HEENT: Repors: no symptoms Allergies: Coded Allergies: No Known Allergies (Unverified , 10/24/16) Objective Last 24 Hour Vital Signs Date Time Temp Pulse Resp B/P (MAP) Pulse Ox O2 Delivery O2 Flow Rate FiO2 05/14/19 10:13 102 22 99 30 05/14/19 10:11 91 Nasal Cannula 2.0 28 05/14/19 10:11 102 24 99 Nasal Cannula 2.0 28 101 24 91 05/14/19 10:10 102 28 91 Nasal Cannula 2.0 28 05/14/19 09:00 Bi-pap 05/14/19 08:00 97.5 81 18 132/79 (96) 90 05/14/19 04:00 98.1 69 21 121/81 (94) 96 05/14/19 02:38 74 14 95 30 05/14/19 00:00 97.4 69 21 113/77 (89) 83 05/13/19 21:38 75 20 94 Nasal Cannula 2.0 28 72 18 91 05/13/19 21:00 Room Air 2.0 05/13/19 20:43 84 18 97 Room Air 21 82 20 96 05/13/19 20:23 70 122/86 05/13/19 20:00 98.0 70 20 122/86 (98) 87 05/13/19 19:23 90 Room Air 21 05/13/19 19:23 70 18 90 Room Air 21 05/13/19 16:00 98.4 81 21 109/74 (86) 93 05/13/19 13:15 97 20 97 Nasal Cannula 2.0 28 94 18 94 05/13/19 11:54 98.7 70 20 118/78 (91) 95 73 Intake and Output 05/13/19 05/14/19 19:00 07:00 Output Total 1300 ml Balance -1300 ml Output Urine Total 1300 ml General Appearance: WD/WN HEENT: normocephalic, atraumatic Respiratory/Chest: chest wall non-tender, lungs clear Cardiovascular: normal peripheral pulses, normal rate Abdomen: normal bowel sounds, soft, non tender Genitourinary: normal external genitalia 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 Laboratory Tests 05/14/19 05:00: White Blood Count 10.0, Red Blood Count 4.45L, Hemoglobin 13.2L, Hematocrit 40.7L, Mean Corpuscular Volume 92, Mean Corpuscular Hemoglobin 29.7, Mean Corpuscular Hemoglobin Concent 32.5, Red Cell Distribution Width 14.4, Platelet Count 308, Mean Platelet Volume 6.5, Neutrophils (%) (Auto) 61.1, Lymphocytes (% ) (Auto) 20.5, Monocytes (%) (Auto) 7.2, Eosinophils (%) (Auto) 10.0H, Basophils (%) (Auto) 1.2, Sodium Level 141, Potassium Level 4.3, Chloride Level 104, Carbon Dioxide Level 28, Anion Gap 9, Blood Urea Nitrogen 18, Creatinine 0.9, Estimat Glomerular Filtration Rate > 60, Glucose Level 132H, Calcium Level 8.8, Total Bilirubin 0.2, Aspartate Amino Transf (AST/SGOT) 17, Alanine Aminotransferase (ALT/SGPT) 37, Alkaline Phosphatase 87, Pro-B-Type Natriuretic Peptide 152H, Total Protein 6.7, Albumin 3.0L, Globulin 3.7, Albumin/Globulin Ratio 0.8L Current Medications Medications (Trade) Dose Ordered Sig/Dejon Route PRN Reason Start Time Stop Time Status Last Admin Dose Admin Acetaminophen (Tylenol) 650 mg Q4H PRN ORAL fever 05/01/19 19:14 05/31/19 19:13 05/02/19 01:18 Acetaminophen/ Hydrocodone Bitart ([place] 5/325) 1 tab Q6H PRN ORAL Severe Pain (Pain Scale 7-10) 05/07/19 15:30 05/14/19 15:29 05/14/19 01:36 Albuterol/ Ipratropium (Albuterol/ Ipratropium) 3 ml Q4HRT PRN HHN Shortness of Breath 05/14/19 01:30 05/19/19 01:29 05/14/19 01:33 Amikacin Sulfate (Amikin) 500 mg Q12HRT INH 05/13/19 10:00 05/19/19 21:59 05/14/19 09:52 Apixaban (Eliquis) 5 mg BID ORAL 05/02/19 09:00 06/06/19 08:59 05/13/19 17:37 Carvedilol (Coreg) 6.25 mg EVERY 12 HOURS ORAL 05/07/19 21:00 05/15/19 08:59 05/13/19 20:23 Clonidine HCl (Catapres Tab) 0.1 mg Q4H PRN ORAL sbp more than 160 05/01/19 19:14 05/31/19 19:13 Clotrimazole (Lotrimin) 1 applic THREE TIMES A DAY TOPIC 05/02/19 09:00 05/20/19 12:59 05/10/19 08:56 Dextrose (Dextrose 50%) 25 ml Q30M PRN IV Hypoglycemia 05/07/19 15:00 05/15/19 10:59 Dextrose (Dextrose 50%) 50 ml Q30M PRN IV Hypoglycemia 05/07/19 15:00 05/15/19 02:59 Docusate Sodium (Colace) 100 mg TWICE A DAY ORAL 05/02/19 09:00 05/31/19 08:59 05/13/19 17:37 Escitalopram Oxalate (Lexapro) 10 mg DAILY ORAL 05/02/19 09:00 05/27/19 08:59 05/13/19 08:59 Insulin Aspart (NovoLOG) BEFORE MEALS AND HS SUBQ 05/07/19 16:30 05/15/19 08:59 05/14/19 05:39 Levothyroxine Sodium (Synthroid) 75 mcg ACBREAKFAST ORAL 05/02/19 06:30 05/27/19 06:29 05/14/19 05:36 Levothyroxine Sodium (Synthroid) 100 mcg ACBREAKFAST ORAL 05/08/19 06:30 05/15/19 06:29 05/14/19 05:36 Nitroglycerin (Ntg) 0.4 mg Q5M X 3 DOSES PRN SL Prn Chest Pain 05/07/19 15:30 06/06/19 15:29 Nystatin (Nystatin) 5 ml QID ORAL 05/13/19 13:00 05/20/19 12:59 05/13/19 20:22 Ondansetron HCl (Zofran) 4 mg Q6H PRN IVP Nausea & Vomiting 05/01/19 19:16 05/31/19 19:15 Oxymetazoline HCl (Afrin Nasal [place]) 1 spray Q6H PRN NASAL nasal congestion 05/01/19 19:16 05/31/19 19:15 Pantoprazole (Protonix) 40 mg EVERY 12 HOURS ORAL 05/06/19 21:00 06/05/19 20:59 05/13/19 20:23 Polyethylene Glycol (Miralax) 17 gm BEDTIME ORAL 05/01/19 21:00 05/31/19 20:59 05/11/19 20:47 Promethazine HCl/ Codeine (Phenergan with Codeine) 5 ml Q6H PRN ORAL cough 05/01/19 19:17 05/31/19 19:16 05/04/19 21:01 Tamsulosin HCl (Flomax) 0.4 mg BEDTIME ORAL 05/07/19 21:00 05/15/19 20:59 05/13/19 20:23 Goldie Obrien MD May 14, 2019 11:26
[2019-05-14 12:00] VITALS: BP 125/79
--- NOTE | 2019-05-14 13:45 | General Progress Note ---
Assessment/Plan Status: stable, not improved Assessment/Plan: Assessment/Plan ASSESSMENT: 1. Acute hypoxemic respiratory failure, most likely secondary to acute COPD exacerbation. 2. Acute COPD exacerbation. 3. Pneumonia. 4. Sick sinus syndrome status post pacemaker. 5. Diabetes type 2. 6. Prostate cancer. 7. Hyperkalemia. 8. Insulin induced hyperglycemia. 9. Prostate enlargement. BPH 10. Hypothyroidism. PLAN: broad-spectrum antibiotic : Amikacin inhaler per pulmonary. Will discuss progress and need for further imaging. Prior antibiotics reviewed. 05/05 completed Ertapenem ( 7 ), 04/28 completed Zosyn ( 8), 04/15 completed Levaquin ( 7), 04/08 completed AZT and CTX x 1 Colonoscopy as outpatient per Dr. Del Rosario. Code status is Full Code. DVT prophylaxis: Eliquis. monitor cultures and laboratory. . Subjective Date patient seen: May 14, 2019 Time patient seen: 13:20 ROS Limited/Unobtainable: No Respiratory: Reports: cough, SOB at rest, sputum, wheezing Allergies: Coded Allergies: No Known Allergies (Unverified , 10/24/16) All Systems: reviewed and negative except above Subjective sputum is purulent, he is still short of breath when OFF cpap/bipap support Objective Last 24 Hour Vital Signs Date Time Temp Pulse Resp B/P (MAP) Pulse Ox O2 Delivery O2 Flow Rate FiO2 05/14/19 12:00 98.1 75 20 125/79 (94) 92 05/14/19 10:13 102 22 99 30 05/14/19 10:11 91 Nasal Cannula 2.0 28 05/14/19 10:11 102 24 99 Nasal Cannula 2.0 28 101 24 91 05/14/19 10:10 102 28 91 Nasal Cannula 2.0 28 05/14/19 09:00 75 125/79 05/14/19 09:00 Bi-pap 05/14/19 08:00 97.5 81 18 132/79 (96) 90 05/14/19 04:00 98.1 69 21 121/81 (94) 96 05/14/19 02:38 74 14 95 30 05/14/19 00:00 97.4 69 21 113/77 (89) 83 05/13/19 21:38 75 20 94 Nasal Cannula 2.0 28 72 18 91 3/5/20 21:00 Room Air 2.0 05/13/19 20:43 84 18 97 Room Air 21 82 20 96 05/13/19 20:23 70 122/86 05/13/19 20:00 98.0 70 20 122/86 (98) 87 05/13/19 19:23 90 Room Air 21 05/13/19 19:23 70 18 90 Room Air 21 05/13/19 16:00 98.4 81 21 109/74 (86) 93 Intake and Output 05/13/19 05/14/19 19:00 07:00 Output Total 1300 ml Balance -1300 ml Output Urine Total 1300 ml Laboratory Tests 05/14/19 05:00: White Blood Count 10.0, Red Blood Count 4.45L, Hemoglobin 13.2L, Hematocrit 40.7L, Mean Corpuscular Volume 92, Mean Corpuscular Hemoglobin 29.7, Mean Corpuscular Hemoglobin Concent 32.5, Red Cell Distribution Width 14.4, Platelet Count 308, Mean Platelet Volume 6.5, Neutrophils (%) (Auto) 61.1, Lymphocytes (% ) (Auto) 20.5, Monocytes (%) (Auto) 7.2, Eosinophils (%) (Auto) 10.0H, Basophils (%) (Auto) 1.2, Sodium Level 141, Potassium Level 4.3, Chloride Level 104, Carbon Dioxide Level 28, Anion Gap 9, Blood Urea Nitrogen 18, Creatinine 0.9, Estimat Glomerular Filtration Rate > 60, Glucose Level 132H, Calcium Level 8.8, Total Bilirubin 0.2, Aspartate Amino Transf (AST/SGOT) 17, Alanine Aminotransferase (ALT/SGPT) 37, Alkaline Phosphatase 87, Pro-B-Type Natriuretic Peptide 152H, Total Protein 6.7, Albumin 3.0L, Globulin 3.7, Albumin/Globulin Ratio 0.8L Height (Feet): 6 Height (Inches): 0.00 Weight (Pounds): 0 General Appearance: WD/WN, moderate distress EENT: PERRL/EOMI Neck: non-tender Cardiovascular: normal rate Respiratory/Chest: chest wall non-tender, crackles/rales, rhonchi - bilaterally Abdomen: normal bowel sounds 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
--- NOTE | 2019-05-14 14:25 | Diagnostic Imaging Report ---
Indication: Shortness of breath Technique: One view of the chest Comparison: 04/29/2019 Findings: Slightly better inspiration currently. Bilateral interstitial disease and central bronchial wall thickening appears similar to the previous study. No focal airspace consolidation. Heart size is normal. Left chest unifocal pacemaker again demonstrated Impression: Bilateral interstitial disease, appearing similar to the previous exam, likely represents combination of senescent change and persistent or recurrent interstitial congestion
[2019-05-14 16:00] VITALS: BP 120/79
[2019-05-14 20:00] VITALS: BP 119/80
[2019-05-14] MEDS: Miralax 17gm pkt ORAL SCH ×3 (21:00→21:06)
[2019-05-14] MEDS: Tamsulosin 0.4mg cap ORAL SCH (21:01)
[2019-05-15] VITALS: BP 116/78
[2019-05-15] MEDS: HYDROcodone/Acetamin 5/325 tab ORAL PRN ×3 (00:23→18:55)
[2019-05-15 04:00] VITALS: BP 127/78
[2019-05-15] MEDS: Albuterol/Ipratropium 3ml neb HHN PRN (05:39)
[2019-05-15] MEDS: NovoLOG Insulin Flexpen SUBQ SCH (06:30)
--- NOTE | 2019-05-15 07:54 | General Progress Note ---
Assessment/Plan Status: stable, not improved Assessment/Plan: Assessment/Plan Problems: (1) Diabetes mellitus ICD Codes: E11.9 - Type 2 diabetes mellitus without complications SNOMED: 53624100 (2) Anemia ICD Codes: D64.9 - Anemia, unspecified Assessment/Plan This is a 73-year-old male with COPD exacerbation and new-onset diabetes given hemoglobin A1c is high. s/p EGD stable H&H needs out patient fu fo colonoscopy Subjective ROS Limited/Unobtainable: No Allergies: Coded Allergies: No Known Allergies (Unverified , 10/24/16) Objective Last 24 Hour Vital Signs Date Time Temp Pulse Resp B/P (MAP) Pulse Ox O2 Delivery O2 Flow Rate FiO2 05/15/19 06:58 96 Nasal Cannula 2.0 28 05/15/19 06:57 66 18 96 Nasal Cannula 2.0 28 05/15/19 05:53 82 19 94 30 05/15/19 05:40 87 20 97 Room Air 21 84 20 92 05/15/19 04:00 98.5 91 20 127/78 (94) 96 05/15/19 00:00 97.4 78 21 116/78 (91) 92 05/14/19 23:05 75 22 99 Nasal Cannula 2.0 28 73 20 93 05/14/19 21:01 73 119/80 05/14/19 21:00 Nasal Cannula 2.0 05/14/19 20:12 92 Nasal Cannula 2.0 28 05/14/19 20:11 74 20 98 Room Air 21 70 20 92 05/14/19 20:00 98.1 76 21 119/80 (93) 96 05/14/19 16:20 98.1 05/14/19 16:00 97.8 96 18 120/79 (93) 92 05/14/19 12:00 98.1 75 20 125/79 (94) 92 05/14/19 10:13 102 22 99 30 05/14/19 10:11 91 Nasal Cannula 2.0 28 05/14/19 10:11 102 24 99 Nasal Cannula 2.0 28 101 24 91 05/14/19 10:10 102 28 91 Nasal Cannula 2.0 28 05/14/19 09:00 75 125/79 05/14/19 09:00 Bi-pap 05/14/19 08:00 97.5 81 18 132/79 (96) 90 Intake and Output 05/14/19 05/15/19 19:00 07:00 Intake Total 720 ml 1850 ml Output Total 600 ml 1900 ml Balance 120 ml -50 ml Intake Oral 720 ml 1440 ml IV Total 50 ml Other 360 ml Output Urine Total 600 ml 1900 ml # Voids 2 # Bowel Movements 1 Height (Feet): 6 Height (Inches): 0.00 Weight (Pounds): 0 General Appearance: alert EENT: normal ENT inspection Neck: supple Cardiovascular: normal rate Respiratory/Chest: decreased breath sounds Abdomen: normal bowel sounds, non tender, soft Extremities: non-tender Christiano La MD May 15, 2019 07:54
[2019-05-15 08:00] VITALS: BP 124/94
--- NOTE | 2019-05-15 09:36 | Infectious Diseases Prog Note ---
Assessment/Plan Assessment/Plan Assessment: UCX : dale : colonizer COPD exacerbation , PNA, Sp -05/12 CXR: Bilateral interstitial disease, appearing similar to the previous exam,likely represents combination of senescent change and persistent or recurrent interstitial congestion -04/29 CXRLThere is bilateral interstitial congestion again demonstrated, appearing unchanged. No focal airspace consolidation. There is some atelectasis at the left lung base. -04/27 CXR: Borderline cardiomegaly. Questionable mild interstitial congestion , new or increased from previous study if real. -04/21 CTA chest:Somewhat limited exam, due to motion artifact. No definite evidence of pulmonary embolus or other acute thoracic vascular pathology. Borderline cardiomegaly. Diffuse bilateral pulmonary parenchymal groundglass opacity. Interspersed small bullae digestive this is due to COPD changes, but could also indicate a component of pulmonary edema. Considerable consolidation in the right lower lobe, likely pneumonia. Less extensive consolidation and atelectasis is seen at the left lung base. Pacemaker, degenerative spondylosis incidentally noted sp cx normal resp michael -04/19 CXR: Mild pulmonary vascular congestion -04/16 CXR: No acute disease -04/13 CXR: Suspected mild pulmonary vascular congestion. Correlate clinically -04/08 CXR: Mild pulmonary vascular congestion suspected Afebrile Leukocytosis,(pn steroids); improving Hyperglycemia Acute hypoxic respiratory failure ,on bipap PRN COPD CAD CHF prostate cancer s/p PPM former smoker Plan: - Amikacin INH # 4 ( as per Pul) - 05/05 Sp Ertapenem # 7/ - 05/03 sp Vancomycin # 5 -04/28 SP Zosyn #8 -04/15 SP Levaquin #7 -04/08 SP Ceftriaxone x1, Azithromycin x1 -Monitor CBC/CMP, temperatures -aspiration precautions - SCx: :P Thank you for this consultation. Will continue to follow along with you. Subjective Allergies: Coded Allergies: No Known Allergies (Unverified , 10/24/16) Subjective non BiPAP PRN Objective Vital Signs Last 24 Hour Vital Signs Date Time Temp Pulse Resp B/P (MAP) Pulse Ox O2 Delivery O2 Flow Rate FiO2 05/15/19 08:00 97.9 86 18 124/94 (104) 90 05/15/19 06:58 96 Nasal Cannula 2.0 28 05/15/19 06:57 66 18 96 Nasal Cannula 2.0 28 05/15/19 05:53 82 19 94 30 05/15/19 05:40 87 20 97 Room Air 21 84 20 92 05/15/19 04:00 98.5 91 20 127/78 (94) 96 05/15/19 00:00 97.4 78 21 116/78 (91) 92 05/14/19 23:05 75 22 99 Nasal Cannula 2.0 28 73 20 93 05/14/19 21:01 73 119/80 05/14/19 21:00 Nasal Cannula 2.0 05/14/19 20:12 92 Nasal Cannula 2.0 28 05/14/19 20:11 74 20 98 Room Air 21 70 20 92 05/14/19 20:00 98.1 76 21 119/80 (93) 96 05/14/19 16:20 98.1 05/14/19 16:00 97.8 96 18 120/79 (93) 92 05/14/19 12:00 98.1 75 20 125/79 (94) 92 05/14/19 10:13 102 22 99 30 05/14/19 10:11 91 Nasal Cannula 2.0 28 05/14/19 10:11 102 24 99 Nasal Cannula 2.0 28 101 24 91 05/14/19 10:10 102 28 91 Nasal Cannula 2.0 28 Height (Feet): 6 Height (Inches): 0.00 Weight (Pounds): 0 HEENT: anicteric Respiratory/Chest: chest wall non-tender Cardiovascular: regularly irregular Abdomen: soft, non tender Microbiology Date/Time Source Procedure Growth Status 05/14/19 04:46 Sputum Expectorated Gram Stain - Final Resulted 05/14/19 04:46 Sputum Expectorated Sputum Culture - Preliminary NORMAL UPPER RESPIRATORY MICHAEL AT 24 ... Resulted Current Medications Medications (Trade) Dose Ordered Sig/Dejon Route PRN Reason Start Time Stop Time Status Last Admin Dose Admin Acetaminophen (Tylenol) 650 mg Q4H PRN ORAL fever 05/01/19 19:14 05/31/19 19:13 05/02/19 01:18 Acetaminophen/ Hydrocodone Bitart ([place] 5/325) 1 tab Q6H PRN ORAL Severe Pain (Pain Scale 7-10) 05/14/19 15:45 05/21/19 15:44 05/15/19 06:32 Albuterol/ Ipratropium (Albuterol/ Ipratropium) 3 ml Q4HRT PRN HHN Shortness of Breath 05/14/19 01:30 05/19/19 01:29 05/15/19 05:39 Amikacin Sulfate (Amikin) 500 mg Q12HRT INH 05/13/19 10:00 05/19/19 21:59 05/14/19 23:02 Apixaban (Eliquis) 5 mg BID ORAL 05/02/19 09:00 06/06/19 08:59 05/13/19 17:37 Clonidine HCl (Catapres Tab) 0.1 mg Q4H PRN ORAL sbp more than 160 05/01/19 19:14 05/31/19 19:13 Clotrimazole (Lotrimin) 1 applic THREE TIMES A DAY TOPIC 05/02/19 09:00 05/20/19 12:59 05/10/19 08:56 Dextrose (Dextrose 50%) 25 ml Q30M PRN IV Hypoglycemia 05/07/19 15:00 05/15/19 10:59 Docusate Sodium (Colace) 100 mg TWICE A DAY ORAL 05/02/19 09:00 05/31/19 08:59 05/13/19 17:37 Escitalopram Oxalate (Lexapro) 10 mg DAILY ORAL 05/02/19 09:00 05/27/19 08:59 05/13/19 08:59 Levothyroxine Sodium (Synthroid) 75 mcg ACBREAKFAST ORAL 05/02/19 06:30 05/27/19 06:29 05/15/19 05:37 Nitroglycerin (Ntg) 0.4 mg Q5M X 3 DOSES PRN SL Prn Chest Pain 05/07/19 15:30 06/06/19 15:29 Nystatin (Nystatin) 5 ml QID ORAL 05/13/19 13:00 05/20/19 12:59 05/14/19 21:01 Ondansetron HCl (Zofran) 4 mg Q6H PRN IVP Nausea & Vomiting 05/01/19 19:16 05/31/19 19:15 Oxymetazoline HCl (Afrin Nasal [place]) 1 spray Q6H PRN NASAL nasal congestion 05/01/19 19:16 05/31/19 19:15 Pantoprazole (Protonix) 40 mg EVERY 12 HOURS ORAL 05/06/19 21:00 06/05/19 20:59 05/14/19 21:01 Polyethylene Glycol (Miralax) 17 gm BEDTIME ORAL 05/01/19 21:00 05/31/19 20:59 05/11/19 20:47 Promethazine HCl/ Codeine (Phenergan with Codeine) 5 ml Q6H PRN ORAL cough 05/01/19 19:17 05/31/19 19:16 05/04/19 21:01 Tamsulosin HCl (Flomax) 0.4 mg BEDTIME ORAL 05/07/19 21:00 05/15/19 20:59 05/14/19 21:01 Robert Canela MD May 15, 2019 09:36
[2019-05-15] MEDS: Eliquis 5mg tablet ORAL SCH ×2 (10:01→18:34)
[2019-05-15] MEDS: Nystatin Susp 500,000 units/5ml ORAL SCH ×4 (10:01→21:48)
[2019-05-15] MEDS: Docusate 100mg cap ORAL SCH ×2 (10:01→18:34)
[2019-05-15 10:08] LABS: BASOPHILS % (AUTO) 2.1 % (0.0-2.0); EOSINOPHILS % (AUTO) 9.5 % (0.0-3.0); HEMOGLOBIN 13.5 G/DL (14.2-18.0); LYMPHOCYTES % (AUTO) 20.7 % (20.0-45.0); MEAN CORPUSCULAR VOLUME 91 FL (80-99); MONOCYTES % (AUTO) 6.2 % (1.0-10.0); NEUTROPHILS % (AUTO) 61.6 % (45.0-75.0); PLATELET COUNT 272 K/UL (150-450); RED BLOOD COUNT 4.61 M/UL (4.70-6.10); RED CELL DISTRIBUTION WIDTH 14.2 % (11.6-14.8); WHITE BLOOD COUNT 9.8 K/UL (4.8-10.8)
[2019-05-15 10:29] LABS: ANION GAP 12 mmol/L (5-15); BLOOD UREA NITROGEN 18 mg/dL (7-18); CALCIUM 8.8 MG/DL (8.5-10.1); CARBON DIOXIDE 25 MMOL/L (21-32); CHLORIDE 104 MMOL/L (98-107); CREATININE 0.9 MG/DL (0.55-1.30); POTASSIUM 4.5 MMOL/L (3.5-5.1); SODIUM 141 MMOL/L (136-145)
[2019-05-15] MEDS: Amikacin for Inhalation 2ML INH SCH ×2 (11:02→22:00)
[2019-05-15 12:00] VITALS: BP 124/85
--- NOTE | 2019-05-15 13:54 | General Progress Note ---
Assessment/Plan Status: stable, not improved Assessment/Plan: Assessment/Plan ASSESSMENT: 1. Acute hypoxemic respiratory failure, most likely secondary to acute COPD exacerbation. 2. Acute COPD exacerbation. 3. Pneumonia. 4. Sick sinus syndrome status post pacemaker. 5. Diabetes type 2. 6. Prostate cancer. 7. Hyperkalemia. 8. Insulin induced hyperglycemia. 9. Prostate enlargement. BPH 10. Hypothyroidism. PLAN: broad-spectrum antibiotic : Amikacin inhaler per pulmonary. Will discuss progress and need for further imaging. Prior antibiotics reviewed. 05/05 completed Ertapenem ( 7 ), 04/28 completed Zosyn ( 8), 04/15 completed Levaquin ( 7), 04/08 completed AZT and CTX x 1 Colonoscopy as outpatient per Dr. Del Rosario. Code status is Full Code. DVT prophylaxis: Eliquis. monitor cultures and laboratory. . Subjective Date patient seen: May 15, 2019 Time patient seen: 12:00 ROS Limited/Unobtainable: Yes Allergies: Coded Allergies: No Known Allergies (Unverified , 10/24/16) All Systems: reviewed and negative except above Subjective sputum is less purulent by my exam ( whitish and mild yellow ) he is still short of breath when OFF cpap/bipap support. Currently on Bipap. Objective Last 24 Hour Vital Signs Date Time Temp Pulse Resp B/P (MAP) Pulse Ox O2 Delivery O2 Flow Rate FiO2 05/15/19 12:00 98.1 77 20 124/85 (98) 94 05/15/19 10:00 72 20 97 Nasal Cannula 2.0 28 78 20 94 05/15/19 08:00 97.9 86 18 124/94 (104) 90 05/15/19 06:58 96 Nasal Cannula 2.0 28 05/15/19 06:57 66 18 96 Nasal Cannula 2.0 28 05/15/19 05:53 82 19 94 30 05/15/19 05:40 87 20 97 Room Air 21 84 20 92 05/15/19 04:00 98.5 91 20 127/78 (94) 96 05/15/19 00:00 97.4 78 21 116/78 (91) 92 05/14/19 23:05 75 22 99 Nasal Cannula 2.0 28 73 20 93 05/14/19 21:01 73 119/80 05/14/19 21:00 Nasal Cannula 2.0 05/14/19 20:12 92 Nasal Cannula 2.0 28 05/14/19 20:11 74 20 98 Room Air 21 70 20 92 05/14/19 20:00 98.1 76 21 119/80 (93) 96 05/14/19 16:20 98.1 05/14/19 16:00 97.8 96 18 120/79 (93) 92 Intake and Output 05/14/19 05/15/19 19:00 07:00 Intake Total 720 ml 1850 ml Output Total 600 ml 1900 ml Balance 120 ml -50 ml Intake Oral 720 ml 1440 ml IV Total 50 ml Other 360 ml Output Urine Total 600 ml 1900 ml # Voids 2 # Bowel Movements 1 Laboratory Tests 05/15/19 09:40: White Blood Count 9.8, Red Blood Count 4.61L, Hemoglobin 13.5L, Hematocrit 42.0 , Mean Corpuscular Volume 91, Mean Corpuscular Hemoglobin 29.3, Mean Corpuscular Hemoglobin Concent 32.1, Red Cell Distribution Width 14.2, Platelet Count 272, Mean Platelet Volume 6.7, Neutrophils (%) (Auto) 61.6, Lymphocytes (% ) (Auto) 20.7, Monocytes (%) (Auto) 6.2, Eosinophils (%) (Auto) 9.5H, Basophils (%) (Auto) 2.1H, Sodium Level 141, Potassium Level 4.5, Chloride Level 104, Carbon Dioxide Level 25, Anion Gap 12, Blood Urea Nitrogen 18, Creatinine 0.9, Estimat Glomerular Filtration Rate > 60, Glucose Level 147H, Calcium Level 8.8 Height (Feet): 6 Height (Inches): 0.00 Weight (Pounds): 0 General Appearance: moderate distress EENT: PERRL/EOMI Neck: non-tender Cardiovascular: normal rate Respiratory/Chest: lungs clear, normal breath sounds Abdomen: non tender 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
[2019-05-15 16:00] VITALS: BP 117/79
[2019-05-15 20:00] VITALS: BP 122/80
[2019-05-15] MEDS: Miralax 17gm pkt ORAL SCH ×2 (22:09→22:11)
[2019-05-16] VITALS (11 sets, daily range): BP systolic 117–139; BP diastolic 66–94
--- NOTE | 2019-05-16 08:10 | General Progress Note ---
Assessment/Plan Status: stable, not improved Assessment/Plan: Assessment/Plan Problems: (1) Diabetes mellitus ICD Codes: E11.9 - Type 2 diabetes mellitus without complications SNOMED: 38983497 (2) Anemia ICD Codes: D64.9 - Anemia, unspecified Assessment/Plan This is a 73-year-old male with COPD exacerbation and new-onset diabetes given hemoglobin A1c is high. s/p EGD stable H&H needs out patient fu fo colonoscopy Subjective ROS Limited/Unobtainable: No Allergies: Coded Allergies: No Known Allergies (Unverified , 10/24/16) Objective Last 24 Hour Vital Signs Date Time Temp Pulse Resp B/P (MAP) Pulse Ox O2 Delivery O2 Flow Rate FiO2 05/16/19 07:32 91 Nasal Cannula 2.0 28 05/16/19 05:34 85 15 95 30 05/16/19 03:28 89 17 96 30 05/16/19 01:21 91 15 95 30 05/15/19 22:12 87 15 96 30 05/15/19 22:10 87 23 96 Bi-Pap 30 05/15/19 22:00 84 21 95 Bi-Pap 30 05/15/19 21:00 87 15 97 30 05/15/19 21:00 Nasal Cannula 2.0 05/15/19 20:18 91 20 96 Nasal Cannula 2.0 28 05/15/19 20:18 97 Nasal Cannula 2.0 28 05/15/19 20:00 97.3 79 20 122/80 (94) 98 05/15/19 19:25 98.2 05/15/19 17:45 88 20 97 30 05/15/19 16:00 98.2 69 18 117/79 (92) 90 05/15/19 12:00 98.1 77 20 124/85 (98) 94 05/15/19 10:00 72 20 97 Nasal Cannula 2.0 28 78 20 94 05/15/19 09:00 Nasal Cannula 3.0 Intake and Output 05/15/19 05/16/19 19:00 07:00 Intake Total 400 ml Output Total 800 ml 480 ml Balance -400 ml -480 ml Intake Oral 400 ml Output Urine Total 800 ml 480 ml # Bowel Movements 2 Laboratory Tests 05/15/19 09:40: White Blood Count 9.8, Red Blood Count 4.61L, Hemoglobin 13.5L, Hematocrit 42.0 , Mean Corpuscular Volume 91, Mean Corpuscular Hemoglobin 29.3, Mean Corpuscular Hemoglobin Concent 32.1, Red Cell Distribution Width 14.2, Platelet Count 272, Mean Platelet Volume 6.7, Neutrophils (%) (Auto) 61.6, Lymphocytes (% ) (Auto) 20.7, Monocytes (%) (Auto) 6.2, Eosinophils (%) (Auto) 9.5H, Basophils (%) (Auto) 2.1H, Sodium Level 141, Potassium Level 4.5, Chloride Level 104, Carbon Dioxide Level 25, Anion Gap 12, Blood Urea Nitrogen 18, Creatinine 0.9, Estimat Glomerular Filtration Rate > 60, Glucose Level 147H, Calcium Level 8.8 Height (Feet): 6 Height (Inches): 0.00 Weight (Pounds): 0 General Appearance: alert EENT: normal ENT inspection Neck: supple Cardiovascular: normal rate Respiratory/Chest: decreased breath sounds Abdomen: normal bowel sounds, non tender, soft Extremities: non-tender Christiano La MD May 16, 2019 08:10
[2019-05-16] MEDS: Docusate 100mg cap ORAL SCH ×2 (09:00→18:29)
[2019-05-16] MEDS: Nystatin Susp 500,000 units/5ml ORAL SCH ×4 (09:00→21:00)
[2019-05-16] MEDS: Eliquis 5mg tablet ORAL SCH ×2 (09:48→18:28)
[2019-05-16] MEDS: Amikacin for Inhalation 2ML INH SCH ×2 (10:13→22:15)
[2019-05-16] MEDS ORDERED: Oxymetazoline 0.05% Na Spray 30ml NASAL PRN (13:00)
[2019-05-16] MEDS ORDERED: Promethazine/Codeine 5ml UD ORAL PRN (13:00)
--- NOTE | 2019-05-16 13:17 | General Progress Note ---
Assessment/Plan Status: stable, not improved, deteriorating Assessment/Plan: Assessment/Plan ASSESSMENT: 1. Acute hypoxemic respiratory failure, most likely secondary to acute COPD exacerbation. 2. Acute COPD exacerbation. copd STAGE 3. 3. Pneumonia. 4. Sick sinus syndrome status post pacemaker. 5. Diabetes type 2. 6. Prostate cancer. 7. Hyperkalemia. 8. Insulin induced hyperglycemia. 9. Prostate enlargement. BPH 10. Hypothyroidism. PLAN: broad-spectrum antibiotic : Amikacin inhaler per pulmonary. Will discuss progress and need for further imaging. CONSIDER HOSPICE EVALUATION. BIPAP SUPPORT IS NEEDED AND GOALS OF CARE NEED TO BE DISCUSSED. CALVIN FOR TITRATION OF BIPAP. AWAIT PULMONARY INPUT. Prior antibiotics reviewed. 05/05 completed Ertapenem ( 7 ), 04/28 completed Zosyn ( 8), 04/15 completed Levaquin ( 7), 04/08 completed AZT and CTX x 1 Colonoscopy as outpatient per Dr. Del Rosario. Code status is Full Code. DVT prophylaxis: Eliquis. monitor cultures and laboratory CASE MANAGEMENT CONSULT. . Subjective Date patient seen: May 16, 2019 ROS Limited/Unobtainable: Yes Allergies: Coded Allergies: No Known Allergies (Unverified , 10/24/16) All Systems: reviewed and negative except above Subjective sputum is less purulent by my exam ( whitish and mild yellow ) he is still short of breath when OFF Bipap and hypoxic today on evaluation. RN concerned about being on 3rd floor as Bipap titration is needed. Patient seen on CALVIN and upset that his food was removed. Requesting bed side commode. He threatened to leave AMA. He has capacity by my exam and agrees to stay. Objective Last 24 Hour Vital Signs Date Time Temp Pulse Resp B/P (MAP) Pulse Ox O2 Delivery O2 Flow Rate FiO2 05/16/19 10:14 87 31 91 30 05/16/19 10:03 81 31 97 Bi-Pap 30 83 33 88 05/16/19 08:00 97.7 72 18 125/72 (89) 94 05/16/19 07:32 91 Nasal Cannula 2.0 28 05/16/19 05:34 85 15 95 30 05/16/19 03:28 89 17 96 30 05/16/19 01:21 91 15 95 30 05/15/19 22:12 87 15 96 30 05/15/19 22:10 87 23 96 Bi-Pap 30 05/15/19 22:00 84 21 95 Bi-Pap 30 05/15/19 21:00 87 15 97 30 05/15/19 21:00 Nasal Cannula 2.0 05/15/19 20:18 91 20 96 Nasal Cannula 2.0 28 05/15/19 20:18 97 Nasal Cannula 2.0 28 05/15/19 20:00 97.3 79 20 122/80 (94) 98 05/15/19 19:25 98.2 05/15/19 17:45 88 20 97 30 05/15/19 16:00 98.2 69 18 117/79 (92) 90 Intake and Output 05/15/19 05/16/19 19:00 07:00 Intake Total 400 ml Output Total 800 ml 480 ml Balance -400 ml -480 ml Intake Oral 400 ml Output Urine Total 800 ml 480 ml # Bowel Movements 2 Laboratory Tests 05/16/19 10:26: Arterial Blood pH 7.301L, Arterial Blood Partial Pressure CO2 66.6*H, Arterial Blood Partial Pressure O2 71.8L, Arterial Blood HCO3 32.1H, Arterial Blood Oxygen Saturation 93.6L, Arterial Blood Base Excess 3.6H, Dewayne Test Positive Height (Feet): 6 Height (Inches): 0.00 Weight (Pounds): 0 General Appearance: moderate distress EENT: PERRL/EOMI Cardiovascular: normal rate Respiratory/Chest: chest wall non-tender, lungs clear, decreased breath sounds , crackles/rales, rhonchi - bilaterally Abdomen: normal bowel sounds Genitourinary/Rectal: other - [place] 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
[2019-05-16] MEDS ORDERED: Nitroglycerin Subl 0.4mg tab SL PRN (13:45)
[2019-05-16] MEDS: HYDROcodone/Acetamin 5/325 tab ORAL PRN (18:28)
[2019-05-16] MEDS: Miralax 17gm pkt ORAL SCH (21:00)
[2019-05-17] VITALS (7 sets, daily range): BP systolic 102–128; BP diastolic 70–89
[2019-05-17] MEDS: HYDROcodone/Acetamin 5/325 tab ORAL PRN ×4 (00:34→20:32)
--- NOTE | 2019-05-17 07:12 | General Progress Note ---
Assessment/Plan Problem List: (1) COPD exacerbation ICD Codes: J44.1 - Chronic obstructive pulmonary disease with (acute) exacerbation SNOMED: 052318798 (2) Respiratory failure with hypoxia ICD Codes: J96.91 - Respiratory failure, unspecified with hypoxia SNOMED: 85370636856737949 (3) Diabetes mellitus ICD Codes: E11.9 - Type 2 diabetes mellitus without complications SNOMED: 40492778 (4) Pacemaker ICD Codes: Z95.0 - Presence of cardiac pacemaker SNOMED: 452241151 (5) Prostate cancer ICD Codes: C61 - Malignant neoplasm of prostate SNOMED: 737510456 (6) Hypothyroid ICD Codes: E03.9 - Hypothyroidism, unspecified SNOMED: 08622201 Status: stable, not improved, deteriorating Assessment/Plan: I will sign off - he is no longer on glucose check or insulin continue Levothyroxine 175 mcg qam repeat thyroid function in 2-3 weeks Subjective ROS Limited/Unobtainable: Yes Allergies: Coded Allergies: No Known Allergies (Unverified , 10/24/16) Subjective events noted he is no longer on glucose check or insulin not on steroid glucose values by lab are within acceptable range he is restless and aggressive with staff Objective Last 24 Hour Vital Signs Date Time Temp Pulse Resp B/P (MAP) Pulse Ox O2 Delivery O2 Flow Rate FiO2 05/17/19 05:54 80 15 93 30 05/17/19 05:00 97.2 67 18 123/84 (97) 95 05/17/19 04:00 Bi-pap 05/17/19 04:00 30 05/17/19 04:00 68 05/17/19 04:00 97.2 68 18 118/89 (99) 95 05/17/19 01:00 97.3 76 18 125/80 (95) 93 05/17/19 00:00 Nasal Cannula 3.0 05/17/19 00:00 70 05/17/19 00:00 97.3 74 18 120/77 (91) 93 05/17/19 00:00 3.0 05/16/19 23:00 97.3 76 18 129/90 (103) 92 05/16/19 23:00 81 24 92 Bi-Pap 30 88 28 95 30 05/16/19 22:00 97.3 74 18 124/94 (104) 94 05/16/19 21:59 70 05/16/19 21:30 97.4 76 18 125/91 (102) 94 05/16/19 21:00 97.4 78 18 139/90 (106) 94 05/16/19 20:30 97.4 77 18 129/93 (105) 96 05/16/19 20:00 Bi-pap 05/16/19 20:00 97.3 82 18 135/66 (89) 96 05/16/19 20:00 79 20 96 Nasal Cannula 2.0 28 05/16/19 20:00 92 Nasal Cannula 2.0 28 05/16/19 20:00 30 05/16/19 19:30 97.3 98 18 120/80 (93) 96 05/16/19 19:00 96.4 93 05/16/19 16:03 Nasal Cannula 3.0 05/16/19 16:00 97.9 74 18 121/81 (94) 93 05/16/19 10:14 87 31 91 30 05/16/19 10:03 81 31 97 Bi-Pap 30 83 33 88 05/16/19 09:00 Nasal Cannula 3.0 05/16/19 08:00 97.7 72 18 125/72 (89) 94 05/16/19 07:32 91 Nasal Cannula 2.0 28 Intake and Output 05/16/19 05/17/19 19:00 07:00 Intake Total 1460 ml 480 ml Output Total 650 ml 550 ml Balance 810 ml -70 ml Intake Oral 1460 ml 480 ml Output Urine Total 650 ml 550 ml # Bowel Movements 2 Laboratory Tests 05/16/19 10:26: Arterial Blood pH 7.301L, Arterial Blood Partial Pressure CO2 66.6*H, Arterial Blood Partial Pressure O2 71.8L, Arterial Blood HCO3 32.1H, Arterial Blood Oxygen Saturation 93.6L, Arterial Blood Base Excess 3.6H, Dewayne Test Positive Height (Feet): 6 Height (Inches): 0.00 Weight (Pounds): 0 General Appearance: no apparent distress Neck: normal alignment Cardiovascular: normal rate Respiratory/Chest: decreased breath sounds Abdomen: normal bowel sounds Objective Current Medications Medications (Trade) Dose Ordered Sig/Dejon Route PRN Reason Start Time Stop Time Status Last Admin Dose Admin Acetaminophen (Tylenol) 650 mg Q4H PRN ORAL Mild Pain/Temp > 100.5 05/16/19 22:45 06/15/19 22:44 05/16/19 22:53 Acetaminophen/ Hydrocodone Bitart ([place] 5/325) 1 tab Q6H PRN ORAL Severe Pain (Pain Scale 7-10) 05/16/19 15:00 05/21/19 14:59 05/17/19 00:34 Albuterol/ Ipratropium (Albuterol/ Ipratropium) 3 ml Q4HRT PRN HHN Shortness of Breath 05/16/19 15:00 05/19/19 01:29 Amikacin Sulfate (Amikin) 500 mg Q12HRT INH 05/16/19 22:00 05/19/19 21:59 05/16/19 22:15 Apixaban (Eliquis) 5 mg BID ORAL 05/16/19 18:00 06/06/19 08:59 05/16/19 18:28 Clonidine HCl (Catapres Tab) 0.1 mg Q4H PRN ORAL sbp more than 160 05/16/19 14:30 05/31/19 14:29 Clotrimazole (Lotrimin) 1 applic THREE TIMES A DAY TOPIC 05/16/19 18:00 05/20/19 12:59 Docusate Sodium (Colace) 100 mg TWICE A DAY ORAL 05/16/19 18:00 05/31/19 08:59 05/16/19 18:29 Escitalopram Oxalate (Lexapro) 10 mg DAILY ORAL 05/17/19 09:00 05/27/19 08:59 Levothyroxine Sodium (Synthroid) 75 mcg ACBREAKFAST ORAL 05/17/19 06:30 05/27/19 06:29 05/17/19 06:32 Nitroglycerin (Ntg) 0.4 mg Q5M X 3 DOSES PRN SL Prn Chest Pain 05/16/19 13:45 06/06/19 15:29 Nystatin (Nystatin) 5 ml QID ORAL 05/16/19 18:00 05/20/19 12:59 05/16/19 21:00 Ondansetron HCl (Zofran) 4 mg Q6H PRN IVP Nausea & Vomiting 05/16/19 13:00 05/31/19 12:59 Oxymetazoline HCl (Afrin Nasal [place]) 1 spray Q6H PRN NASAL nasal congestion 05/16/19 13:00 05/31/19 12:59 Pantoprazole (Protonix) 40 mg EVERY 12 HOURS ORAL 05/16/19 21:00 06/05/19 20:59 05/16/19 20:59 Polyethylene Glycol (Miralax) 17 gm BEDTIME ORAL 05/16/19 21:00 05/31/19 20:59 Promethazine HCl/ Codeine (Phenergan with Codeine) 5 ml Q6H PRN ORAL cough 05/16/19 13:00 05/31/19 12:59 Geovanni To MD May 17, 2019 07:12
--- NOTE | 2019-05-17 08:03 | General Progress Note ---
Assessment/Plan Problem List: (1) Diabetes mellitus ICD Codes: E11.9 - Type 2 diabetes mellitus without complications SNOMED: 77359358 (2) Respiratory failure with hypoxia ICD Codes: J96.91 - Respiratory failure, unspecified with hypoxia SNOMED: 96944056658451843 (3) COPD exacerbation ICD Codes: J44.1 - Chronic obstructive pulmonary disease with (acute) exacerbation SNOMED: 273799249 (4) Hypothyroid ICD Codes: E03.9 - Hypothyroidism, unspecified SNOMED: 10769944 (5) Pacemaker ICD Codes: Z95.0 - Presence of cardiac pacemaker SNOMED: 709077896 (6) Prostate cancer ICD Codes: C61 - Malignant neoplasm of prostate SNOMED: 148169840 Status: stable, not improved, deteriorating Assessment/Plan: s/p EGD stable H&H needs out patient fu fo colonoscopy repeat stool ob Subjective ROS Limited/Unobtainable: Yes Allergies: Coded Allergies: No Known Allergies (Unverified , 10/24/16) Objective Last 24 Hour Vital Signs Date Time Temp Pulse Resp B/P (MAP) Pulse Ox O2 Delivery O2 Flow Rate FiO2 05/17/19 05:54 80 15 93 30 05/17/19 05:00 97.2 67 18 123/84 (97) 95 05/17/19 04:00 Bi-pap 05/17/19 04:00 30 05/17/19 04:00 68 05/17/19 04:00 97.2 68 18 118/89 (99) 95 05/17/19 01:00 97.3 76 18 125/80 (95) 93 05/17/19 00:00 Nasal Cannula 3.0 05/17/19 00:00 70 05/17/19 00:00 97.3 74 18 120/77 (91) 93 05/17/19 00:00 3.0 05/16/19 23:00 97.3 76 18 129/90 (103) 92 05/16/19 23:00 81 24 92 Bi-Pap 30 88 28 95 30 05/16/19 22:00 97.3 74 18 124/94 (104) 94 05/16/19 21:59 70 05/16/19 21:30 97.4 76 18 125/91 (102) 94 05/16/19 21:00 97.4 78 18 139/90 (106) 94 05/16/19 20:30 97.4 77 18 129/93 (105) 96 05/16/19 20:00 Bi-pap 05/16/19 20:00 97.3 82 18 135/66 (89) 96 05/16/19 20:00 79 20 96 Nasal Cannula 2.0 28 05/16/19 20:00 92 Nasal Cannula 2.0 28 05/16/19 20:00 30 05/16/19 19:30 97.3 98 18 120/80 (93) 96 05/16/19 19:00 96.4 93 05/16/19 16:03 Nasal Cannula 3.0 05/16/19 16:00 97.9 74 18 121/81 (94) 93 05/16/19 10:14 87 31 91 30 05/16/19 10:03 81 31 97 Bi-Pap 30 83 33 88 05/16/19 09:00 Nasal Cannula 3.0 Intake and Output 05/16/19 05/17/19 19:00 07:00 Intake Total 1460 ml 480 ml Output Total 650 ml 550 ml Balance 810 ml -70 ml Intake Oral 1460 ml 480 ml Output Urine Total 650 ml 550 ml # Bowel Movements 2 Laboratory Tests 05/16/19 10:26: Arterial Blood pH 7.301L, Arterial Blood Partial Pressure CO2 66.6*H, Arterial Blood Partial Pressure O2 71.8L, Arterial Blood HCO3 32.1H, Arterial Blood Oxygen Saturation 93.6L, Arterial Blood Base Excess 3.6H, Dewayne Test Positive Height (Feet): 6 Height (Inches): 0.00 Weight (Pounds): 0 General Appearance: alert EENT: normal ENT inspection Neck: supple Cardiovascular: normal rate Respiratory/Chest: decreased breath sounds Abdomen: normal bowel sounds, non tender, soft Extremities: non-tender Christiano La MD May 17, 2019 08:03
[2019-05-17] MEDS: Nystatin Susp 500,000 units/5ml ORAL SCH ×4 (08:05→20:32)
[2019-05-17] MEDS: Docusate 100mg cap ORAL SCH ×2 (08:06→17:37)
[2019-05-17] MEDS: Eliquis 5mg tablet ORAL SCH ×2 (08:06→17:37)
[2019-05-17] MEDS: Amikacin for Inhalation 2ML INH SCH ×2 (11:26→23:07)
--- NOTE | 2019-05-17 13:32 | Infectious Diseases Prog Note ---
Assessment/Plan Assessment/Plan Assessment: UCX : dale : colonizer COPD exacerbation , PNA, Sp -05/12 CXR: Bilateral interstitial disease, appearing similar to the previous exam,likely represents combination of senescent change and persistent or recurrent interstitial congestion -04/29 CXRLThere is bilateral interstitial congestion again demonstrated, appearing unchanged. No focal airspace consolidation. There is some atelectasis at the left lung base. -04/27 CXR: Borderline cardiomegaly. Questionable mild interstitial congestion , new or increased from previous study if real. -04/21 CTA chest:Somewhat limited exam, due to motion artifact. No definite evidence of pulmonary embolus or other acute thoracic vascular pathology. Borderline cardiomegaly. Diffuse bilateral pulmonary parenchymal groundglass opacity. Interspersed small bullae digestive this is due to COPD changes, but could also indicate a component of pulmonary edema. Considerable consolidation in the right lower lobe, likely pneumonia. Less extensive consolidation and atelectasis is seen at the left lung base. Pacemaker, degenerative spondylosis incidentally noted sp cx normal resp michael -04/19 CXR: Mild pulmonary vascular congestion -04/16 CXR: No acute disease -04/13 CXR: Suspected mild pulmonary vascular congestion. Correlate clinically -04/08 CXR: Mild pulmonary vascular congestion suspected Afebrile Leukocytosis,(pn steroids); improving Hyperglycemia Acute hypoxic respiratory failure ,on bipap PRN COPD CAD CHF prostate cancer s/p PPM former smoker Plan: - Amikacin INH # 6 ( as per Pul) - 05/05 Sp Ertapenem # 7/7 - 05/03 sp Vancomycin # 5 -04/28 SP Zosyn #8 -04/15 SP Levaquin #7 -04/08 SP Ceftriaxone x1, Azithromycin x1 -Monitor CBC/CMP, temperatures -aspiration precautions case was DW Pul Thank you for this consultation. Will continue to follow along with you. Subjective Allergies: Coded Allergies: No Known Allergies (Unverified , 10/24/16) Subjective afebrile Objective Vital Signs Last 24 Hour Vital Signs Date Time Temp Pulse Resp B/P (MAP) Pulse Ox O2 Delivery O2 Flow Rate FiO2 05/17/19 12:00 30 05/17/19 12:00 Bi-pap 05/17/19 11:26 71 18 98 Nasal Cannula 3.0 32 73 22 90 05/17/19 08:00 Bi-pap 05/17/19 08:00 98.5 102 24 102/70 (81) 90 05/17/19 08:00 30 05/17/19 08:00 82 05/17/19 07:06 90 Nasal Cannula 2.0 28 05/17/19 05:54 80 15 93 30 05/17/19 05:00 97.2 67 18 123/84 (97) 95 05/17/19 04:00 Bi-pap 05/17/19 04:00 30 05/17/19 04:00 68 05/17/19 04:00 97.2 68 18 118/89 (99) 95 05/17/19 01:00 97.3 76 18 125/80 (95) 93 05/17/19 00:00 Nasal Cannula 3.0 05/17/19 00:00 70 05/17/19 00:00 97.3 74 18 120/77 (91) 93 05/17/19 00:00 3.0 05/16/19 23:00 97.3 76 18 129/90 (103) 92 05/16/19 23:00 81 24 92 Bi-Pap 30 88 28 95 30 05/16/19 22:00 97.3 74 18 124/94 (104) 94 05/16/19 21:59 70 05/16/19 21:30 97.4 76 18 125/91 (102) 94 05/16/19 21:00 97.4 78 18 139/90 (106) 94 05/16/19 20:30 97.4 77 18 129/93 (105) 96 05/16/19 20:00 Bi-pap 05/16/19 20:00 97.3 82 18 135/66 (89) 96 05/16/19 20:00 79 20 96 Nasal Cannula 2.0 28 05/16/19 20:00 92 Nasal Cannula 2.0 28 05/16/19 20:00 30 05/16/19 19:30 97.3 98 18 120/80 (93) 96 05/16/19 19:00 96.4 93 05/16/19 16:03 Nasal Cannula 3.0 05/16/19 16:00 97.9 74 18 121/81 (94) 93 Height (Feet): 6 Height (Inches): 0.00 Weight (Pounds): 0 HEENT: anicteric Respiratory/Chest: normal breath sounds Cardiovascular: regular rhythm Abdomen: no organomegaly Current Medications Medications (Trade) Dose Ordered Sig/Dejon Route PRN Reason Start Time Stop Time Status Last Admin Dose Admin Acetaminophen (Tylenol) 650 mg Q4H PRN ORAL Mild Pain/Temp > 100.5 05/16/19 22:45 06/15/19 22:44 05/16/19 22:53 Acetaminophen/ Hydrocodone Bitart ([place] 5/325) 1 tab Q6H PRN ORAL Severe Pain (Pain Scale 7-10) 05/16/19 15:00 05/21/19 14:59 05/17/19 08:05 Albuterol/ Ipratropium (Albuterol/ Ipratropium) 3 ml Q4HRT PRN HHN Shortness of Breath 05/16/19 15:00 05/19/19 01:29 Amikacin Sulfate (Amikin) 500 mg Q12HRT INH 05/16/19 22:00 05/19/19 21:59 05/17/19 11:26 Apixaban (Eliquis) 5 mg BID ORAL 05/16/19 18:00 06/06/19 08:59 05/17/19 08:06 Clonidine HCl (Catapres Tab) 0.1 mg Q4H PRN ORAL sbp more than 160 05/16/19 14:30 05/31/19 14:29 Clotrimazole (Lotrimin) 1 applic THREE TIMES A DAY TOPIC 05/16/19 18:00 05/20/19 12:59 05/17/19 13:15 Docusate Sodium (Colace) 100 mg TWICE A DAY ORAL 05/16/19 18:00 05/31/19 08:59 05/16/19 18:29 Escitalopram Oxalate (Lexapro) 10 mg DAILY ORAL 05/17/19 09:00 05/27/19 08:59 05/17/19 08:07 Levothyroxine Sodium (Synthroid) 75 mcg ACBREAKFAST ORAL 05/17/19 06:30 05/27/19 06:29 05/17/19 06:32 Nitroglycerin (Ntg) 0.4 mg Q5M X 3 DOSES PRN SL Prn Chest Pain 05/16/19 13:45 06/06/19 15:29 Nystatin (Nystatin) 5 ml QID ORAL 05/16/19 18:00 05/20/19 12:59 05/17/19 13:15 Ondansetron HCl (Zofran) 4 mg Q6H PRN IVP Nausea & Vomiting 05/16/19 13:00 05/31/19 12:59 Oxymetazoline HCl (Afrin Nasal [place]) 1 spray Q6H PRN NASAL nasal congestion 05/16/19 13:00 05/31/19 12:59 Pantoprazole (Protonix) 40 mg EVERY 12 HOURS ORAL 05/16/19 21:00 06/05/19 20:59 05/17/19 08:06 Polyethylene Glycol (Miralax) 17 gm BEDTIME ORAL 05/16/19 21:00 05/31/19 20:59 Promethazine HCl/ Codeine (Phenergan with Codeine) 5 ml Q6H PRN ORAL cough 05/16/19 13:00 05/31/19 12:59 Robert Canela MD May 17, 2019 13:32
[2019-05-17] MEDS: Albuterol/Ipratropium 3ml neb HHN PRN (18:15)
--- NOTE | 2019-05-17 19:13 | Internal Med Progress Note ---
Subjective Date of Service: May 17, 2019 Physician Name Idris Lugo Attending Physician Jewel Giraldo MD Current Medications Medications (Trade) Dose Ordered Sig/Dejon Route PRN Reason Start Time Stop Time Status Last Admin Dose Admin Acetaminophen (Tylenol) 650 mg Q4H PRN ORAL Mild Pain/Temp > 100.5 05/16/19 22:45 06/15/19 22:44 05/16/19 22:53 Acetaminophen/ Hydrocodone Bitart ([place] 5/325) 1 tab Q6H PRN ORAL Severe Pain (Pain Scale 7-10) 05/16/19 15:00 05/21/19 14:59 05/17/19 14:35 Albuterol/ Ipratropium (Albuterol/ Ipratropium) 3 ml Q4HRT PRN HHN Shortness of Breath 05/16/19 15:00 05/19/19 01:29 05/17/19 18:15 Amikacin Sulfate (Amikin) 500 mg Q12HRT INH 05/16/19 22:00 05/19/19 21:59 05/17/19 11:26 Apixaban (Eliquis) 5 mg BID ORAL 05/16/19 18:00 06/06/19 08:59 05/17/19 17:37 Clonidine HCl (Catapres Tab) 0.1 mg Q4H PRN ORAL sbp more than 160 05/16/19 14:30 05/31/19 14:29 Clotrimazole (Lotrimin) 1 applic THREE TIMES A DAY TOPIC 05/16/19 18:00 05/20/19 12:59 05/17/19 17:38 Docusate Sodium (Colace) 100 mg TWICE A DAY ORAL 05/16/19 18:00 05/31/19 08:59 05/16/19 18:29 Escitalopram Oxalate (Lexapro) 10 mg DAILY ORAL 05/17/19 09:00 05/27/19 08:59 05/17/19 08:07 Levothyroxine Sodium (Synthroid) 75 mcg ACBREAKFAST ORAL 05/17/19 06:30 05/27/19 06:29 05/17/19 06:32 Nitroglycerin (Ntg) 0.4 mg Q5M X 3 DOSES PRN SL Prn Chest Pain 05/16/19 13:45 06/06/19 15:29 Nystatin (Nystatin) 5 ml QID ORAL 05/16/19 18:00 05/20/19 12:59 05/17/19 17:37 Ondansetron HCl (Zofran) 4 mg Q6H PRN IVP Nausea & Vomiting 05/16/19 13:00 05/31/19 12:59 Oxymetazoline HCl (Afrin Nasal [place]) 1 spray Q6H PRN NASAL nasal congestion 05/16/19 13:00 05/31/19 12:59 Pantoprazole (Protonix) 40 mg EVERY 12 HOURS ORAL 05/16/19 21:00 06/05/19 20:59 05/17/19 08:06 Polyethylene Glycol (Miralax) 17 gm BEDTIME ORAL 05/16/19 21:00 05/31/19 20:59 Promethazine HCl/ Codeine (Phenergan with Codeine) 5 ml Q6H PRN ORAL cough 05/16/19 13:00 05/31/19 12:59 Allergies: Coded Allergies: No Known Allergies (Unverified , 10/24/16) ROS Limited/Unobtainable: Yes Subjective 73 YO M admitted with COPD exacerbation. Now respiratory failure and pneumonia. Cover for Int Med-DR Giraldo. S/P endoscopy 05/06/19. On BIPAP. CALVIN Objective Last Vital Signs Date Time Temp Pulse Resp B/P (MAP) Pulse Ox O2 Delivery O2 Flow Rate FiO2 05/17/19 18:15 80 16 94 Bi-Pap 30 82 19 99 30 05/17/19 16:00 97.9 120/78 (92) 05/17/19 11:26 3.0 Laboratory Tests Test 05/17/19 13:37 Arterial Blood pH 7.321 (7.350-7.450) Arterial Blood Partial Pressure CO2 61.9 mmHg (35.0-45.0) *H Arterial Blood Partial Pressure O2 66.6 mmHg (75.0-100.0) L Arterial Blood HCO3 31.2 mmol/L (22.0-26.0) H Arterial Blood Oxygen Saturation 92.1 % (95-100) L Arterial Blood Base Excess 3.6 (-2-2) H Dewayne Test Positive Intake and Output 05/16/19 05/17/19 19:00 07:00 Intake Total 1460 ml 480 ml Output Total 650 ml 550 ml Balance 810 ml -70 ml Intake Oral 1460 ml 480 ml Output Urine Total 650 ml 550 ml # Bowel Movements 2 Objective PHYSICAL EXAMINATION: GENERAL: The patient is awake, responsive, no acute distress. HEAD AND NECK: Pupils are equal and reactive to light. Extraocular muscles intact. Neck was supple. No JVD. LUNGS: BIPAP;The patient has expiratory wheezes noted. Tachypneic. No rhonchi was noted. HEART: S1, S2. Irregular. No murmur. The patient has a pacemaker in the left-sided chest wall. ABDOMEN: Soft, nondistended, nontender. Mildly obese. EXTREMITIES: No cyanosis, clubbing, edema. NEUROLOGIC: Cranial nerves II through XII grossly normal. Motor is 5/5 in all extremities. Gait is intact. GENITOURINARY: It was noted the patient has a [place] catheter. RECTAL: Refused and deferred. PSYCHIATRIC: Mood and affect is intact. Assessment/Plan Assessment/Plan ASSESSMENT: 1. Acute hypoxemic respiratory failure, most likely secondary to acute COPD exacerbation. 2. Acute COPD exacerbation. 3. Pneumonia. 4. Sick sinus syndrome status post pacemaker. 5. Diabetes type 2. 6. Prostate cancer. 7. Hyperkalemia. 8. Insulin induced hyperglycemia. 9. Prostate enlargement. 10. Leukocytosis 11. RBBB 12 Gastritis PLAN: 1. Med/Surg 2. D/C Solu-Medrol IV Per Pulmonary consult=Dr. Obrien. 3. Endocrinology=Dr To. Monitor blood glucose level closely. 4. antibiotic=amikacin; S/P ertapenem and vanco. ID=Dr Villa 5. Code status is Full Code. DVT prophylaxis, he is on Eliquis. 6. S/P endoscopy 05/06/19=gastritis Idris Lugo MD May 17, 2019 19:13
[2019-05-17] MEDS: Miralax 17gm pkt ORAL SCH (20:31)
[2019-05-18] VITALS: BP 134/78
[2019-05-18 04:00] VITALS: BP 130/81
--- NOTE | 2019-05-18 05:45 | Progress Note ---
DATE: 04/08/2019 SUBJECTIVE: The patient is now on CALVIN due to desatting. The patient has bene in the hospital for a long time. The patient is not on BiPAP right now. He has anxiety, more irritable, poor insight. MENTAL STATUS EXAMINATION: The patient is alert and oriented times self, place, situation. Mood is irritable. Affect is constricted. The patient is agitation. Affect is flat. Thought process is concrete. Thought content, no suicidal or homicidal ideation. Cognition is impaired. ASSESSMENT: Major depressive disorder. The patient has agitation. PLAN: 1. Continue Lexapro. 2. Seroquel p.r.n. for agitation. Ottoniel Hillman M.D. DR: Elkin JOB#: [id number] CC:
[2019-05-18] MEDS: HYDROcodone/Acetamin 5/325 tab ORAL PRN ×2 (05:59→19:16)
[2019-05-18 06:40] LABS: EOSINOPHILS % (AUTO) 16.5 % (0.0-3.0); HEMATOCRIT 41.8 % (42.0-52.0); HEMOGLOBIN 13.4 G/DL (14.2-18.0); LYMPHOCYTES % (AUTO) 23.9 % (20.0-45.0); MEAN CORPUSCULAR VOLUME 92 FL (80-99); MONOCYTES % (AUTO) 8.9 % (1.0-10.0); NEUTROPHILS % (AUTO) 49.7 % (45.0-75.0); PLATELET COUNT 262 K/UL (150-450); RED BLOOD COUNT 4.53 M/UL (4.70-6.10); RED CELL DISTRIBUTION WIDTH 13.9 % (11.6-14.8); WHITE BLOOD COUNT 7.6 K/UL (4.8-10.8)
[2019-05-18 07:12] LABS: ANION GAP 7 mmol/L (5-15); BLOOD UREA NITROGEN 14 mg/dL (7-18); CALCIUM 8.8 MG/DL (8.5-10.1); CARBON DIOXIDE 30 MMOL/L (21-32); CHLORIDE 106 MMOL/L (98-107); CREATININE 0.8 MG/DL (0.55-1.30); POTASSIUM 4.3 MMOL/L (3.5-5.1); SODIUM 143 MMOL/L (136-145)
[2019-05-18 08:00] VITALS: BP 127/94
[2019-05-18] MEDS: Docusate 100mg cap ORAL SCH ×2 (08:14→17:24)
[2019-05-18] MEDS: Eliquis 5mg tablet ORAL SCH ×2 (08:15→17:25)
[2019-05-18] MEDS: Nystatin Susp 500,000 units/5ml ORAL SCH ×4 (08:15→20:07)
--- NOTE | 2019-05-18 10:36 | General Progress Note ---
Assessment/Plan Problem List: (1) Diabetes mellitus ICD Codes: E11.9 - Type 2 diabetes mellitus without complications SNOMED: 02951009 (2) Respiratory failure with hypoxia ICD Codes: J96.91 - Respiratory failure, unspecified with hypoxia SNOMED: 46078776470057358 (3) COPD exacerbation ICD Codes: J44.1 - Chronic obstructive pulmonary disease with (acute) exacerbation SNOMED: 098528157 (4) Hypothyroid ICD Codes: E03.9 - Hypothyroidism, unspecified SNOMED: 00291669 (5) Pacemaker ICD Codes: Z95.0 - Presence of cardiac pacemaker SNOMED: 071996407 (6) Prostate cancer ICD Codes: C61 - Malignant neoplasm of prostate SNOMED: 174003088 Status: stable, not improved, deteriorating Assessment/Plan: s/p EGD stable H&H needs out patient fu fo colonoscopy repeat stool ob Subjective Allergies: Coded Allergies: No Known Allergies (Unverified , 10/24/16) Objective Last 24 Hour Vital Signs Date Time Temp Pulse Resp B/P (MAP) Pulse Ox O2 Delivery O2 Flow Rate FiO2 05/18/19 08:00 95 05/18/19 08:00 3.0 05/18/19 08:00 Nasal Cannula 3.0 05/18/19 08:00 98.0 70 20 127/94 (105) 95 05/18/19 04:00 Bi-pap 05/18/19 04:00 3.0 05/18/19 04:00 67 05/18/19 04:00 97.9 65 19 130/81 (97) 98 05/18/19 00:00 30 05/18/19 00:00 98.1 100 19 134/78 (96) 95 05/18/19 00:00 85 05/18/19 00:00 Bi-pap 05/17/19 23:08 76 18 96 Nasal Cannula 3.0 32 74 22 91 05/17/19 20:00 Bi-pap 05/17/19 20:00 30 05/17/19 20:00 70 05/17/19 20:00 97.7 80 19 128/72 (90) 93 05/17/19 19:09 97 Nasal Cannula 2.0 28 05/17/19 19:09 81 19 97 Nasal Cannula 2.0 28 05/17/19 18:15 80 16 94 Bi-Pap 30 82 19 99 30 3/9/20 17:09 72 05/17/19 16:00 30 05/17/19 16:00 97.9 97 18 120/78 (92) 90 05/17/19 16:00 Bi-pap 05/17/19 15:08 72 05/17/19 12:00 30 05/17/19 12:00 Bi-pap 05/17/19 11:26 71 18 98 Nasal Cannula 3.0 32 73 22 90 Intake and Output 05/17/19 05/18/19 19:00 07:00 Intake Total 500 ml Output Total 450 ml 500 ml Balance 50 ml -500 ml Intake Oral 500 ml Output Urine Total 450 ml 500 ml # Bowel Movements 1 Laboratory Tests 05/17/19 13:37: Arterial Blood pH 7.321L, Arterial Blood Partial Pressure CO2 61.9*H, Arterial Blood Partial Pressure O2 66.6L, Arterial Blood HCO3 31.2H, Arterial Blood Oxygen Saturation 92.1L, Arterial Blood Base Excess 3.6H, Dewayne Test Positive 05/18/19 06:00: White Blood Count 7.6, Red Blood Count 4.53L, Hemoglobin 13.4L, Hematocrit 41.8L , Mean Corpuscular Volume 92, Mean Corpuscular Hemoglobin 29.5, Mean Corpuscular Hemoglobin Concent 32.0, Red Cell Distribution Width 13.9, Platelet Count 262, Mean Platelet Volume 6.2L, Neutrophils (%) (Auto) 49.7, Lymphocytes ( %) (Auto) 23.9, Monocytes (%) (Auto) 8.9, Eosinophils (%) (Auto) 16.5H, Basophils (%) (Auto) 1.0, Sodium Level 143, Potassium Level 4.3, Chloride Level 106, Carbon Dioxide Level 30, Anion Gap 7, Blood Urea Nitrogen 14, Creatinine 0.8, Estimat Glomerular Filtration Rate > 60, Glucose Level 134H, Calcium Level 8.8 Height (Feet): 6 Height (Inches): 0.00 Weight (Pounds): 0 General Appearance: no apparent distress EENT: normal ENT inspection Neck: supple Cardiovascular: normal rate Respiratory/Chest: decreased breath sounds Abdomen: normal bowel sounds, non tender, soft Extremities: non-tender Christiano La MD May 18, 2019 10:36
[2019-05-18] MEDS: Amikacin for Inhalation 2ML INH SCH ×2 (10:42→22:41)
--- NOTE | 2019-05-18 11:31 | Infectious Diseases Prog Note ---
Assessment/Plan Assessment/Plan Assessment: UCX : dale : colonizer COPD exacerbation , PNA, Sp -05/12 CXR: Bilateral interstitial disease, appearing similar to the previous exam,likely represents combination of senescent change and persistent or recurrent interstitial congestion -04/29 CXRLThere is bilateral interstitial congestion again demonstrated, appearing unchanged. No focal airspace consolidation. There is some atelectasis at the left lung base. -04/27 CXR: Borderline cardiomegaly. Questionable mild interstitial congestion , new or increased from previous study if real. -04/21 CTA chest:Somewhat limited exam, due to motion artifact. No definite evidence of pulmonary embolus or other acute thoracic vascular pathology. Borderline cardiomegaly. Diffuse bilateral pulmonary parenchymal groundglass opacity. Interspersed small bullae digestive this is due to COPD changes, but could also indicate a component of pulmonary edema. Considerable consolidation in the right lower lobe, likely pneumonia. Less extensive consolidation and atelectasis is seen at the left lung base. Pacemaker, degenerative spondylosis incidentally noted sp cx normal resp michael -04/19 CXR: Mild pulmonary vascular congestion -04/16 CXR: No acute disease -04/13 CXR: Suspected mild pulmonary vascular congestion. Correlate clinically -04/08 CXR: Mild pulmonary vascular congestion suspected Afebrile Leukocytosis,(pn steroids); improving Hyperglycemia Acute hypoxic respiratory failure ,on bipap PRN COPD CAD CHF prostate cancer s/p PPM former smoker Plan: - Amikacin INH # 7 ( as per Pul) - 05/05 Sp Ertapenem # 7/7 - 05/03 sp Vancomycin # 5 -04/28 SP Zosyn #8 -04/15 SP Levaquin #7 -04/08 SP Ceftriaxone x1, Azithromycin x1 -Monitor CBC/CMP, temperatures -aspiration precautions - on COVID-19 isolation (as per Pul) , test has been sent out case was DW Pul Thank you for this consultation. Will continue to follow along with you. Subjective Allergies: Coded Allergies: No Known Allergies (Unverified , 10/24/16) Subjective comfortable Objective Vital Signs Last 24 Hour Vital Signs Date Time Temp Pulse Resp B/P (MAP) Pulse Ox O2 Delivery O2 Flow Rate FiO2 05/18/19 10:42 98 Nasal Cannula 4.0 36 05/18/19 10:42 70 20 98 Nasal Cannula 4.0 36 69 20 93 05/18/19 08:00 95 05/18/19 08:00 3.0 05/18/19 08:00 Nasal Cannula 3.0 05/18/19 08:00 98.0 70 20 127/94 (105) 95 05/18/19 04:00 Bi-pap 05/18/19 04:00 3.0 05/18/19 04:00 67 05/18/19 04:00 97.9 65 19 130/81 (97) 98 05/18/19 00:00 30 05/18/19 00:00 98.1 100 19 134/78 (96) 95 05/18/19 00:00 85 05/18/19 00:00 Bi-pap 05/17/19 23:08 76 18 96 Nasal Cannula 3.0 32 74 22 91 05/17/19 20:00 Bi-pap 05/17/19 20:00 30 05/17/19 20:00 70 05/17/19 20:00 97.7 80 19 128/72 (90) 93 05/17/19 19:09 97 Nasal Cannula 2.0 28 05/17/19 19:09 81 19 97 Nasal Cannula 2.0 28 05/17/19 18:15 80 16 94 Bi-Pap 30 82 19 99 30 05/17/19 17:09 72 05/17/19 16:00 30 05/17/19 16:00 97.9 97 18 120/78 (92) 90 05/17/19 16:00 Bi-pap 05/17/19 15:08 72 05/17/19 12:00 30 05/17/19 12:00 Bi-pap Height (Feet): 6 Height (Inches): 0.00 Weight (Pounds): 0 HEENT: anicteric Respiratory/Chest: no respiratory distress Cardiovascular: regular rhythm Abdomen: non distended Laboratory Tests Test 05/17/19 13:37 05/18/19 06:00 Arterial Blood pH 7.321 (7.350-7.450) Arterial Blood Partial Pressure CO2 61.9 mmHg (35.0-45.0) *H Arterial Blood Partial Pressure O2 66.6 mmHg (75.0-100.0) L Arterial Blood HCO3 31.2 mmol/L (22.0-26.0) H Arterial Blood Oxygen Saturation 92.1 % (95-100) L Arterial Blood Base Excess 3.6 (-2-2) H Dewayne Test Positive White Blood Count 7.6 K/UL (4.8-10.8) Red Blood Count 4.53 M/UL (4.70-6.10) L Hemoglobin 13.4 G/DL (14.2-18.0) L Hematocrit 41.8 % (42.0-52.0) L Mean Corpuscular Volume 92 FL (80-99) Mean Corpuscular Hemoglobin 29.5 PG (27.0-31.0) Mean Corpuscular Hemoglobin Concent 32.0 G/DL (32.0-36.0) Red Cell Distribution Width 13.9 % (11.6-14.8) Platelet Count 262 K/UL (150-450) Mean Platelet Volume 6.2 FL (6.5-10.1) L Neutrophils (%) (Auto) 49.7 % (45.0-75.0) Lymphocytes (%) (Auto) 23.9 % (20.0-45.0) Monocytes (%) (Auto) 8.9 % (1.0-10.0) Eosinophils (%) (Auto) 16.5 % (0.0-3.0) H Basophils (%) (Auto) 1.0 % (0.0-2.0) Sodium Level 143 MMOL/L (136-145) Potassium Level 4.3 MMOL/L (3.5-5.1) Chloride Level 106 MMOL/L (98-107) Carbon Dioxide Level 30 MMOL/L (21-32) Anion Gap 7 mmol/L (5-15) Blood Urea Nitrogen 14 mg/dL (7-18) Creatinine 0.8 MG/DL (0.55-1.30) Estimat Glomerular Filtration Rate > 60 mL/min (>60) Glucose Level 134 MG/DL (74-106) H Calcium Level 8.8 MG/DL (8.5-10.1) Current Medications Medications (Trade) Dose Ordered Sig/Dejon Route PRN Reason Start Time Stop Time Status Last Admin Dose Admin Acetaminophen (Tylenol) 650 mg Q4H PRN ORAL Mild Pain/Temp > 100.5 05/16/19 22:45 06/15/19 22:44 05/18/19 00:05 Acetaminophen/ Hydrocodone Bitart ([place] 5/325) 1 tab Q6H PRN ORAL Severe Pain (Pain Scale 7-10) 05/16/19 15:00 05/21/19 14:59 05/18/19 05:59 Albuterol/ Ipratropium (Albuterol/ Ipratropium) 3 ml Q4HRT PRN HHN Shortness of Breath 05/16/19 15:00 05/19/19 01:29 05/17/19 18:15 Amikacin Sulfate (Amikin) 500 mg Q12HRT INH 05/16/19 22:00 05/23/19 21:59 05/18/19 10:42 Apixaban (Eliquis) 5 mg BID ORAL 05/16/19 18:00 06/06/19 08:59 05/18/19 08:15 Clonidine HCl (Catapres Tab) 0.1 mg Q4H PRN ORAL sbp more than 160 05/16/19 14:30 05/31/19 14:29 Clotrimazole (Lotrimin) 1 applic THREE TIMES A DAY TOPIC 05/16/19 18:00 05/20/19 12:59 05/17/19 17:38 Docusate Sodium (Colace) 100 mg TWICE A DAY ORAL 05/16/19 18:00 05/31/19 08:59 05/18/19 08:14 Escitalopram Oxalate (Lexapro) 10 mg DAILY ORAL 05/17/19 09:00 05/27/19 08:59 05/18/19 08:15 Levothyroxine Sodium (Synthroid) 75 mcg ACBREAKFAST ORAL 05/17/19 06:30 05/27/19 06:29 05/18/19 05:58 Nitroglycerin (Ntg) 0.4 mg Q5M X 3 DOSES PRN SL Prn Chest Pain 05/16/19 13:45 06/06/19 15:29 Nystatin (Nystatin) 5 ml QID ORAL 05/16/19 18:00 05/20/19 12:59 05/18/19 08:15 Ondansetron HCl (Zofran) 4 mg Q6H PRN IVP Nausea & Vomiting 05/16/19 13:00 05/31/19 12:59 Oxymetazoline HCl (Afrin Nasal [place]) 1 spray Q6H PRN NASAL nasal congestion 05/16/19 13:00 05/31/19 12:59 Pantoprazole (Protonix) 40 mg EVERY 12 HOURS ORAL 05/16/19 21:00 06/05/19 20:59 05/18/19 08:15 Polyethylene Glycol (Miralax) 17 gm BEDTIME ORAL 05/16/19 21:00 05/31/19 20:59 Promethazine HCl/ Codeine (Phenergan with Codeine) 5 ml Q6H PRN ORAL cough 05/16/19 13:00 05/31/19 12:59 Quetiapine Fumarate (SEROqueL) 25 mg EVERY 6 HOURS PRN ORAL For Anxiety 05/17/19 23:15 07/01/19 23:14 Robert Canela MD May 18, 2019 11:31
--- NOTE | 2019-05-18 11:31 | Pulmonology Progress Note ---
Assessment/Plan Problems: (1) Interstitial pneumonia (2) Respiratory failure with hypoxia (3) COPD exacerbation (4) Nosocomial pneumonia (5) Pacemaker (6) Anemia (7) Prostate cancer (8) Diabetes mellitus Assessment/Plan phlegm getting clearer will start on Amikacin inhalation on nasal cannula now on and off bipap wbc becoming normal Subjective Interval Events: slightly better, mucus is more clear Allergies: Coded Allergies: No Known Allergies (Unverified , 10/24/16) Objective Last 24 Hour Vital Signs Date Time Temp Pulse Resp B/P (MAP) Pulse Ox O2 Delivery O2 Flow Rate FiO2 05/18/19 10:42 98 Nasal Cannula 4.0 36 05/18/19 10:42 70 20 98 Nasal Cannula 4.0 36 69 20 93 05/18/19 08:00 95 05/18/19 08:00 3.0 05/18/19 08:00 Nasal Cannula 3.0 05/18/19 08:00 98.0 70 20 127/94 (105) 95 05/18/19 04:00 Bi-pap 05/18/19 04:00 3.0 05/18/19 04:00 67 05/18/19 04:00 97.9 65 19 130/81 (97) 98 05/18/19 00:00 30 05/18/19 00:00 98.1 100 19 134/78 (96) 95 05/18/19 00:00 85 05/18/19 00:00 Bi-pap 05/17/19 23:08 76 18 96 Nasal Cannula 3.0 32 74 22 91 05/17/19 20:00 Bi-pap 05/17/19 20:00 30 05/17/19 20:00 70 05/17/19 20:00 97.7 80 19 128/72 (90) 93 05/17/19 19:09 97 Nasal Cannula 2.0 28 05/17/19 19:09 81 19 97 Nasal Cannula 2.0 28 05/17/19 18:15 80 16 94 Bi-Pap 30 82 19 99 30 05/17/19 17:09 72 05/17/19 16:00 30 05/17/19 16:00 97.9 97 18 120/78 (92) 90 05/17/19 16:00 Bi-pap 05/17/19 15:08 72 05/17/19 12:00 30 05/17/19 12:00 Bi-pap Intake and Output 05/17/19 05/18/19 19:00 07:00 Intake Total 500 ml Output Total 450 ml 500 ml Balance 50 ml -500 ml Intake Oral 500 ml Output Urine Total 450 ml 500 ml # Bowel Movements 1 General Appearance: WD/WN HEENT: normocephalic, atraumatic Respiratory/Chest: chest wall non-tender, crackles/rales Cardiovascular: normal peripheral pulses, normal rate Abdomen: normal bowel sounds, soft, non tender Genitourinary: normal external genitalia Skin: no rash Neurologic/Psychiatric: cognos consultant II-XII grossly normal Laboratory Tests 05/17/19 13:37: Arterial Blood pH 7.321L, Arterial Blood Partial Pressure CO2 61.9*H, Arterial Blood Partial Pressure O2 66.6L, Arterial Blood HCO3 31.2H, Arterial Blood Oxygen Saturation 92.1L, Arterial Blood Base Excess 3.6H, Dewayne Test Positive 05/18/19 06:00: White Blood Count 7.6, Red Blood Count 4.53L, Hemoglobin 13.4L, Hematocrit 41.8L , Mean Corpuscular Volume 92, Mean Corpuscular Hemoglobin 29.5, Mean Corpuscular Hemoglobin Concent 32.0, Red Cell Distribution Width 13.9, Platelet Count 262, Mean Platelet Volume 6.2L, Neutrophils (%) (Auto) 49.7, Lymphocytes ( %) (Auto) 23.9, Monocytes (%) (Auto) 8.9, Eosinophils (%) (Auto) 16.5H, Basophils (%) (Auto) 1.0, Sodium Level 143, Potassium Level 4.3, Chloride Level 106, Carbon Dioxide Level 30, Anion Gap 7, Blood Urea Nitrogen 14, Creatinine 0.8, Estimat Glomerular Filtration Rate > 60, Glucose Level 134H, Calcium Level 8.8 Current Medications Medications (Trade) Dose Ordered Sig/Dejon Route PRN Reason Start Time Stop Time Status Last Admin Dose Admin Acetaminophen (Tylenol) 650 mg Q4H PRN ORAL Mild Pain/Temp > 100.5 05/16/19 22:45 06/15/19 22:44 05/18/19 00:05 Acetaminophen/ Hydrocodone Bitart ([place] 5/325) 1 tab Q6H PRN ORAL Severe Pain (Pain Scale 7-10) 05/16/19 15:00 05/21/19 14:59 05/18/19 05:59 Albuterol/ Ipratropium (Albuterol/ Ipratropium) 3 ml Q4HRT PRN HHN Shortness of Breath 05/16/19 15:00 05/19/19 01:29 05/17/19 18:15 Amikacin Sulfate (Amikin) 500 mg Q12HRT INH 05/16/19 22:00 05/23/19 21:59 05/18/19 10:42 Apixaban (Eliquis) 5 mg BID ORAL 05/16/19 18:00 06/06/19 08:59 05/18/19 08:15 Clonidine HCl (Catapres Tab) 0.1 mg Q4H PRN ORAL sbp more than 160 05/16/19 14:30 05/31/19 14:29 Clotrimazole (Lotrimin) 1 applic THREE TIMES A DAY TOPIC 05/16/19 18:00 05/20/19 12:59 05/17/19 17:38 Docusate Sodium (Colace) 100 mg TWICE A DAY ORAL 05/16/19 18:00 05/31/19 08:59 05/18/19 08:14 Escitalopram Oxalate (Lexapro) 10 mg DAILY ORAL 05/17/19 09:00 05/27/19 08:59 05/18/19 08:15 Levothyroxine Sodium (Synthroid) 75 mcg ACBREAKFAST ORAL 05/17/19 06:30 05/27/19 06:29 05/18/19 05:58 Nitroglycerin (Ntg) 0.4 mg Q5M X 3 DOSES PRN SL Prn Chest Pain 05/16/19 13:45 06/06/19 15:29 Nystatin (Nystatin) 5 ml QID ORAL 05/16/19 18:00 05/20/19 12:59 05/18/19 08:15 Ondansetron HCl (Zofran) 4 mg Q6H PRN IVP Nausea & Vomiting 05/16/19 13:00 05/31/19 12:59 Oxymetazoline HCl (Afrin Nasal [place]) 1 spray Q6H PRN NASAL nasal congestion 05/16/19 13:00 05/31/19 12:59 Pantoprazole (Protonix) 40 mg EVERY 12 HOURS ORAL 05/16/19 21:00 06/05/19 20:59 05/18/19 08:15 Polyethylene Glycol (Miralax) 17 gm BEDTIME ORAL 05/16/19 21:00 05/31/19 20:59 Promethazine HCl/ Codeine (Phenergan with Codeine) 5 ml Q6H PRN ORAL cough 05/16/19 13:00 05/31/19 12:59 Quetiapine Fumarate (SEROqueL) 25 mg EVERY 6 HOURS PRN ORAL For Anxiety 05/17/19 23:15 07/01/19 23:14 Goldie Obrien MD May 18, 2019 11:31
[2019-05-18 12:00] VITALS: BP 133/79
[2019-05-18] MEDS: Albuterol/Ipratropium 3ml neb HHN PRN (14:22)
[2019-05-18 16:00] VITALS: BP 116/73
--- NOTE | 2019-05-18 16:46 | Internal Med Progress Note ---
Subjective Date of Service: May 18, 2019 Physician Name Idris Lugo Attending Physician Jewel Giraldo MD Current Medications Medications (Trade) Dose Ordered Sig/Dejon Route PRN Reason Start Time Stop Time Status Last Admin Dose Admin Acetaminophen (Tylenol) 650 mg Q4H PRN ORAL Mild Pain/Temp > 100.5 05/16/19 22:45 06/15/19 22:44 05/18/19 00:05 Acetaminophen/ Hydrocodone Bitart ([place] 5/325) 1 tab Q6H PRN ORAL Severe Pain (Pain Scale 7-10) 05/16/19 15:00 05/21/19 14:59 05/18/19 05:59 Albuterol/ Ipratropium (Albuterol/ Ipratropium) 3 ml Q4HRT PRN HHN Shortness of Breath 05/16/19 15:00 05/19/19 01:29 05/18/19 14:22 Amikacin Sulfate (Amikin) 500 mg Q12HRT INH 05/16/19 22:00 05/23/19 21:59 05/18/19 10:42 Apixaban (Eliquis) 5 mg BID ORAL 05/16/19 18:00 06/06/19 08:59 05/18/19 08:15 Clonidine HCl (Catapres Tab) 0.1 mg Q4H PRN ORAL sbp more than 160 05/16/19 14:30 05/31/19 14:29 Clotrimazole (Lotrimin) 1 applic THREE TIMES A DAY TOPIC 05/16/19 18:00 05/20/19 12:59 05/17/19 17:38 Docusate Sodium (Colace) 100 mg TWICE A DAY ORAL 05/16/19 18:00 05/31/19 08:59 05/18/19 08:14 Escitalopram Oxalate (Lexapro) 10 mg DAILY ORAL 05/17/19 09:00 05/27/19 08:59 05/18/19 08:15 Levothyroxine Sodium (Synthroid) 75 mcg ACBREAKFAST ORAL 05/17/19 06:30 05/27/19 06:29 05/18/19 05:58 Nitroglycerin (Ntg) 0.4 mg Q5M X 3 DOSES PRN SL Prn Chest Pain 05/16/19 13:45 06/06/19 15:29 Nystatin (Nystatin) 5 ml QID ORAL 05/16/19 18:00 05/20/19 12:59 05/18/19 13:01 Ondansetron HCl (Zofran) 4 mg Q6H PRN IVP Nausea & Vomiting 05/16/19 13:00 05/31/19 12:59 Oxymetazoline HCl (Afrin Nasal [place]) 1 spray Q6H PRN NASAL nasal congestion 05/16/19 13:00 05/31/19 12:59 Pantoprazole (Protonix) 40 mg EVERY 12 HOURS ORAL 05/16/19 21:00 06/05/19 20:59 05/18/19 08:15 Polyethylene Glycol (Miralax) 17 gm BEDTIME ORAL 05/16/19 21:00 05/31/19 20:59 Promethazine HCl/ Codeine (Phenergan with Codeine) 5 ml Q6H PRN ORAL cough 05/16/19 13:00 05/31/19 12:59 Quetiapine Fumarate (SEROqueL) 25 mg EVERY 6 HOURS PRN ORAL For Anxiety 05/17/19 23:15 07/01/19 23:14 Allergies: Coded Allergies: No Known Allergies (Unverified , 10/24/16) ROS Limited/Unobtainable: No Constitutional: Reports: no symptoms HEENT: Reports: no symptoms Cardiovascular: Reports: no symptoms Respiratory: Reports: no symptoms Gastrointestinal/Abdominal: Reports: no symptoms Genitourinary: Reports: no symptoms Neurologic/Psychiatric: Reports: no symptoms Subjective 73 YO M admitted with COPD exacerbation. Now respiratory failure and pneumonia. Cover for Int Med-DR Giraldo. S/P endoscopy 05/06/19. Off BIPAP. CALVIN Objective Last Vital Signs Date Time Temp Pulse Resp B/P (MAP) Pulse Ox O2 Delivery O2 Flow Rate FiO2 05/18/19 16:00 3.0 05/18/19 16:00 Nasal Cannula 05/18/19 16:00 71 05/18/19 12:00 97.2 20 133/79 (97) 95 05/18/19 10:42 36 Laboratory Tests Test 05/18/19 06:00 White Blood Count 7.6 K/UL (4.8-10.8) Red Blood Count 4.53 M/UL (4.70-6.10) L Hemoglobin 13.4 G/DL (14.2-18.0) L Hematocrit 41.8 % (42.0-52.0) L Mean Corpuscular Volume 92 FL (80-99) Mean Corpuscular Hemoglobin 29.5 PG (27.0-31.0) Mean Corpuscular Hemoglobin Concent 32.0 G/DL (32.0-36.0) Red Cell Distribution Width 13.9 % (11.6-14.8) Platelet Count 262 K/UL (150-450) Mean Platelet Volume 6.2 FL (6.5-10.1) L Neutrophils (%) (Auto) 49.7 % (45.0-75.0) Lymphocytes (%) (Auto) 23.9 % (20.0-45.0) Monocytes (%) (Auto) 8.9 % (1.0-10.0) Eosinophils (%) (Auto) 16.5 % (0.0-3.0) H Basophils (%) (Auto) 1.0 % (0.0-2.0) Sodium Level 143 MMOL/L (136-145) Potassium Level 4.3 MMOL/L (3.5-5.1) Chloride Level 106 MMOL/L (98-107) Carbon Dioxide Level 30 MMOL/L (21-32) Anion Gap 7 mmol/L (5-15) Blood Urea Nitrogen 14 mg/dL (7-18) Creatinine 0.8 MG/DL (0.55-1.30) Estimat Glomerular Filtration Rate > 60 mL/min (>60) Glucose Level 134 MG/DL (74-106) H Calcium Level 8.8 MG/DL (8.5-10.1) Intake and Output 05/17/19 05/18/19 19:00 07:00 Intake Total 500 ml Output Total 450 ml 500 ml Balance 50 ml -500 ml Intake Oral 500 ml Output Urine Total 450 ml 500 ml # Bowel Movements 1 Objective PHYSICAL EXAMINATION: GENERAL: The patient is awake, responsive, no acute distress. HEAD AND NECK: Pupils are equal and reactive to light. Extraocular muscles intact. Neck was supple. No JVD. LUNGS: Nasal canula;The patient has expiratory wheezes noted. Tachypneic. No rhonchi was noted. HEART: S1, S2. Irregular. No murmur. The patient has a pacemaker in the left-sided chest wall. ABDOMEN: Soft, nondistended, nontender. Mildly obese. EXTREMITIES: No cyanosis, clubbing, edema. NEUROLOGIC: Cranial nerves II through XII grossly normal. Motor is 5/5 in all extremities. Gait is intact. GENITOURINARY: It was noted the patient has a [place] catheter. RECTAL: Refused and deferred. PSYCHIATRIC: Mood and affect is intact. Assessment/Plan Assessment/Plan ASSESSMENT: 1. Acute hypoxemic respiratory failure, most likely secondary to acute COPD exacerbation. 2. Acute COPD exacerbation. 3. Pneumonia. 4. Sick sinus syndrome status post pacemaker. 5. Diabetes type 2. 6. Prostate cancer. 7. Hyperkalemia. 8. Insulin induced hyperglycemia. 9. Prostate enlargement. 10. Leukocytosis 11. RBBB 12 Gastritis PLAN: 1. Med/Surg 2. D/C Solu-Medrol IV Per Pulmonary consult=Dr. Obrien. 3. Endocrinology=Dr To. Monitor blood glucose level closely. 4. antibiotic=amikacin; S/P ertapenem and vanco. ID=Dr Villa 5. Code status is Full Code. DVT prophylaxis, he is on Eliquis. 6. S/P endoscopy 05/06/19=gastritis Idris Lugo MD May 18, 2019 16:46
[2019-05-18 20:00] VITALS: BP 114/73
[2019-05-18] MEDS: Miralax 17gm pkt ORAL SCH (20:13)
[2019-05-19] VITALS: BP 110/68
[2019-05-19 04:00] VITALS: BP_SYST 112; BP_SYST 12; BP_DIAS 72
[2019-05-19] MEDS: HYDROcodone/Acetamin 5/325 tab ORAL PRN ×3 (06:08→21:24)
[2019-05-19 06:28] LABS: BASOPHILS % (AUTO) 1.5 % (0.0-2.0); EOSINOPHILS % (AUTO) 17.8 % (0.0-3.0); HEMATOCRIT 42.7 % (42.0-52.0); HEMOGLOBIN 13.6 G/DL (14.2-18.0); LYMPHOCYTES % (AUTO) 24.6 % (20.0-45.0); MEAN CORPUSCULAR VOLUME 92 FL (80-99); MONOCYTES % (AUTO) 4.2 % (1.0-10.0); NEUTROPHILS % (AUTO) 51.9 % (45.0-75.0); PLATELET COUNT 273 K/UL (150-450); RED BLOOD COUNT 4.65 M/UL (4.70-6.10); RED CELL DISTRIBUTION WIDTH 13.9 % (11.6-14.8); WHITE BLOOD COUNT 8.6 K/UL (4.8-10.8)
[2019-05-19 06:48] LABS: ALANINE AMINOTRANSFERASE 31 U/L (12-78); ALBUMIN/GLOBULIN RATIO 0.8 (1.0-2.7); ALKALINE PHOSPHATASE 101 U/L (46-116); ANION GAP 8 mmol/L (5-15); ASPARTATE AMINO TRANSFERASE 16 U/L (15-37); BILIRUBIN,TOTAL 0.1 MG/DL (0.2-1.0); BLOOD UREA NITROGEN 17 mg/dL (7-18); CALCIUM 9.1 MG/DL (8.5-10.1); CARBON DIOXIDE 31 MMOL/L (21-32); CHLORIDE 104 MMOL/L (98-107); POTASSIUM 4.2 MMOL/L (3.5-5.1); SODIUM 143 MMOL/L (136-145)
[2019-05-19 07:53] VITALS: BP 131/88
[2019-05-19] MEDS: Docusate 100mg cap ORAL SCH ×2 (08:32→17:52)
[2019-05-19] MEDS: Eliquis 5mg tablet ORAL SCH ×2 (08:33→17:52)
[2019-05-19] MEDS: Nystatin Susp 500,000 units/5ml ORAL SCH ×4 (08:33→21:23)
--- NOTE | 2019-05-19 08:51 | General Progress Note ---
Assessment/Plan Problem List: (1) Diabetes mellitus ICD Codes: E11.9 - Type 2 diabetes mellitus without complications SNOMED: 35472397 (2) Respiratory failure with hypoxia ICD Codes: J96.91 - Respiratory failure, unspecified with hypoxia SNOMED: 57807341820831539 (3) COPD exacerbation ICD Codes: J44.1 - Chronic obstructive pulmonary disease with (acute) exacerbation SNOMED: 153952506 (4) Hypothyroid ICD Codes: E03.9 - Hypothyroidism, unspecified SNOMED: 96287767 (5) Pacemaker ICD Codes: Z95.0 - Presence of cardiac pacemaker SNOMED: 570936664 (6) Prostate cancer ICD Codes: C61 - Malignant neoplasm of prostate SNOMED: 426444598 Status: stable, not improved, deteriorating Assessment/Plan: s/p EGD stable H&H needs out patient fu fo colonoscopy repeat stool ob Subjective ROS Limited/Unobtainable: No Allergies: Coded Allergies: No Known Allergies (Unverified , 10/24/16) Objective Last 24 Hour Vital Signs Date Time Temp Pulse Resp B/P (MAP) Pulse Ox O2 Delivery O2 Flow Rate FiO2 05/19/19 08:00 Nasal Cannula 3.0 05/19/19 07:53 97.5 79 22 131/88 (102) 91 05/19/19 07:53 75 05/19/19 04:10 75 05/19/19 04:00 97.7 74 20 12/72 (52) 94 05/19/19 04:00 3.0 05/19/19 04:00 Nasal Cannula 3.0 05/19/19 00:00 30 05/19/19 00:00 Nasal Cannula 3.0 05/19/19 00:00 97.8 76 20 110/68 (82) 93 05/18/19 23:28 72 05/18/19 22:47 73 20 97 Nasal Cannula 4.0 36 74 18 93 05/18/19 20:35 86 21 97 Nasal Cannula 4.0 36 05/18/19 20:35 97 Nasal Cannula 4.0 36 05/18/19 20:00 3.0 05/18/19 20:00 Nasal Cannula 3.0 05/18/19 20:00 98.1 80 20 114/73 (87) 92 05/18/19 19:31 69 3/10/20 16:00 3.0 05/18/19 16:00 Nasal Cannula 3.0 05/18/19 16:00 97.9 80 20 116/73 (87) 94 05/18/19 16:00 71 05/18/19 12:00 69 05/18/19 12:00 Nasal Cannula 3.0 05/18/19 12:00 3.0 05/18/19 12:00 97.2 72 20 133/79 (97) 95 05/18/19 10:42 98 Nasal Cannula 4.0 36 05/18/19 10:42 70 20 98 Nasal Cannula 4.0 36 69 20 93 Intake and Output 05/18/19 05/19/19 19:00 07:00 Intake Total 1500 ml 400 ml Output Total 1400 ml 900 ml Balance 100 ml -500 ml Intake Oral 1500 ml 400 ml Output Urine Total 1400 ml 900 ml # Bowel Movements 2 Laboratory Tests 05/19/19 04:00: White Blood Count 8.6, Red Blood Count 4.65L, Hemoglobin 13.6L, Hematocrit 42.7 , Mean Corpuscular Volume 92, Mean Corpuscular Hemoglobin 29.2, Mean Corpuscular Hemoglobin Concent 31.8L, Red Cell Distribution Width 13.9, Platelet Count 273, Mean Platelet Volume 6.1L, Neutrophils (%) (Auto) 51.9, Lymphocytes (%) (Auto) 24.6, Monocytes (%) (Auto) 4.2, Eosinophils (%) (Auto) 17.8H, Basophils (%) (Auto) 1.5, Sodium Level 143, Potassium Level 4.2, Chloride Level 104, Carbon Dioxide Level 31, Anion Gap 8, Blood Urea Nitrogen 17 , Creatinine 1.0, Estimat Glomerular Filtration Rate > 60, Glucose Level 160H, Calcium Level 9.1, Total Bilirubin 0.1L, Aspartate Amino Transf (AST/SGOT) 16, Alanine Aminotransferase (ALT/SGPT) 31, Alkaline Phosphatase 101, Pro-B-Type Natriuretic Peptide [Pending], Total Protein 7.0, Albumin 3.0L, Globulin 4.0, Albumin/Globulin Ratio 0.8L Height (Feet): 6 Height (Inches): 0.00 Weight (Pounds): 214 General Appearance: no apparent distress EENT: normal ENT inspection Neck: supple Cardiovascular: normal rate Respiratory/Chest: decreased breath sounds Abdomen: normal bowel sounds, non tender, soft Extremities: non-tender Christiano La MD May 19, 2019 08:51
[2019-05-19] MEDS: Amikacin for Inhalation 2ML INH SCH ×2 (09:48→21:03)
--- NOTE | 2019-05-19 09:59 | Pulmonology Progress Note ---
Assessment/Plan Problems: (1) Interstitial pneumonia (2) Respiratory failure with hypoxia (3) COPD exacerbation (4) Nosocomial pneumonia (5) Pacemaker (6) Anemia (7) Prostate cancer (8) Diabetes mellitus Assessment/Plan repeat sputum again, by sputum induction on Amikacin inhalation on nasal cannula now on and off bipap wbc normal on Isolation, awaiting [place] Virus Subjective Interval Events: still short of breath, coughing up cloudy phlegm Allergies: Coded Allergies: No Known Allergies (Unverified , 10/24/16) Objective Last 24 Hour Vital Signs Date Time Temp Pulse Resp B/P (MAP) Pulse Ox O2 Delivery O2 Flow Rate FiO2 05/19/19 09:52 85 22 94 Nasal Cannula 4.0 36 05/19/19 09:51 94 Nasal Cannula 4.0 36 05/19/19 09:51 85 18 94 Nasal Cannula 4.0 36 05/19/19 08:00 Nasal Cannula 3.0 05/19/19 07:53 97.5 79 22 131/88 (102) 91 05/19/19 07:53 75 05/19/19 04:10 75 05/19/19 04:00 97.7 74 20 12/72 (52) 94 05/19/19 04:00 3.0 05/19/19 04:00 Nasal Cannula 3.0 05/19/19 00:00 30 05/19/19 00:00 Nasal Cannula 3.0 05/19/19 00:00 97.8 76 20 110/68 (82) 93 05/18/19 23:28 72 05/18/19 22:47 73 20 97 Nasal Cannula 4.0 36 74 18 93 05/18/19 20:35 86 21 97 Nasal Cannula 4.0 36 05/18/19 20:35 97 Nasal Cannula 4.0 36 05/18/19 20:00 3.0 05/18/19 20:00 Nasal Cannula 3.0 05/18/19 20:00 98.1 80 20 114/73 (87) 92 05/18/19 19:31 69 05/18/19 16:00 3.0 05/18/19 16:00 Nasal Cannula 3.0 05/18/19 16:00 97.9 80 20 116/73 (87) 94 05/18/19 16:00 71 05/18/19 12:00 69 05/18/19 12:00 Nasal Cannula 3.0 05/18/19 12:00 3.0 05/18/19 12:00 97.2 72 20 133/79 (97) 95 05/18/19 10:42 98 Nasal Cannula 4.0 36 05/18/19 10:42 70 20 98 Nasal Cannula 4.0 36 69 20 93 Intake and Output 05/18/19 05/19/19 19:00 07:00 Intake Total 1500 ml 400 ml Output Total 1400 ml 900 ml Balance 100 ml -500 ml Intake Oral 1500 ml 400 ml Output Urine Total 1400 ml 900 ml # Bowel Movements 2 General Appearance: WD/WN HEENT: normocephalic Respiratory/Chest: chest wall non-tender, crackles/rales Cardiovascular: normal peripheral pulses, normal rate Abdomen: normal bowel sounds, soft, non tender Genitourinary: normal external genitalia Extremities: no cyanosis Neurologic/Psychiatric: 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 II-XII grossly normal Laboratory Tests 05/19/19 04:00: White Blood Count 8.6, Red Blood Count 4.65L, Hemoglobin 13.6L, Hematocrit 42.7 , Mean Corpuscular Volume 92, Mean Corpuscular Hemoglobin 29.2, Mean Corpuscular Hemoglobin Concent 31.8L, Red Cell Distribution Width 13.9, Platelet Count 273, Mean Platelet Volume 6.1L, Neutrophils (%) (Auto) 51.9, Lymphocytes (%) (Auto) 24.6, Monocytes (%) (Auto) 4.2, Eosinophils (%) (Auto) 17.8H, Basophils (%) (Auto) 1.5, Sodium Level 143, Potassium Level 4.2, Chloride Level 104, Carbon Dioxide Level 31, Anion Gap 8, Blood Urea Nitrogen 17 , Creatinine 1.0, Estimat Glomerular Filtration Rate > 60, Glucose Level 160H, Calcium Level 9.1, Total Bilirubin 0.1L, Aspartate Amino Transf (AST/SGOT) 16, Alanine Aminotransferase (ALT/SGPT) 31, Alkaline Phosphatase 101, Pro-B-Type Natriuretic Peptide [Pending], Total Protein 7.0, Albumin 3.0L, Globulin 4.0, Albumin/Globulin Ratio 0.8L Current Medications Medications (Trade) Dose Ordered Sig/Dejon Route PRN Reason Start Time Stop Time Status Last Admin Dose Admin Acetaminophen (Tylenol) 650 mg Q4H PRN ORAL Mild Pain/Temp > 100.5 05/16/19 22:45 06/15/19 22:44 05/18/19 00:05 Acetaminophen/ Hydrocodone Bitart ([place] 5/325) 1 tab Q6H PRN ORAL Severe Pain (Pain Scale 7-10) 05/16/19 15:00 05/21/19 14:59 05/19/19 06:08 Amikacin Sulfate (Amikin) 500 mg Q12HRT INH 05/16/19 22:00 05/23/19 21:59 05/19/19 09:48 Apixaban (Eliquis) 5 mg BID ORAL 05/16/19 18:00 06/06/19 08:59 05/19/19 08:33 Clonidine HCl (Catapres Tab) 0.1 mg Q4H PRN ORAL sbp more than 160 05/16/19 14:30 05/31/19 14:29 Clotrimazole (Lotrimin) 1 applic THREE TIMES A DAY TOPIC 05/16/19 18:00 05/20/19 12:59 05/19/19 08:33 Docusate Sodium (Colace) 100 mg TWICE A DAY ORAL 05/16/19 18:00 05/31/19 08:59 05/19/19 08:32 Escitalopram Oxalate (Lexapro) 10 mg DAILY ORAL 05/17/19 09:00 05/27/19 08:59 05/19/19 08:32 Levothyroxine Sodium (Synthroid) 75 mcg ACBREAKFAST ORAL 05/17/19 06:30 05/27/19 06:29 05/19/19 05:51 Nitroglycerin (Ntg) 0.4 mg Q5M X 3 DOSES PRN SL Prn Chest Pain 05/16/19 13:45 06/06/19 15:29 Nystatin (Nystatin) 5 ml QID ORAL 05/16/19 18:00 05/20/19 12:59 05/19/19 08:33 Ondansetron HCl (Zofran) 4 mg Q6H PRN IVP Nausea & Vomiting 05/16/19 13:00 05/31/19 12:59 Oxymetazoline HCl (Afrin Nasal [place]) 1 spray Q6H PRN NASAL nasal congestion 05/16/19 13:00 05/31/19 12:59 Pantoprazole (Protonix) 40 mg EVERY 12 HOURS ORAL 05/16/19 21:00 06/05/19 20:59 05/19/19 08:32 Polyethylene Glycol (Miralax) 17 gm BEDTIME ORAL 05/16/19 21:00 05/31/19 20:59 Promethazine HCl/ Codeine (Phenergan with Codeine) 5 ml Q6H PRN ORAL cough 05/16/19 13:00 05/31/19 12:59 Quetiapine Fumarate (SEROqueL) 25 mg EVERY 6 HOURS PRN ORAL For Anxiety 05/17/19 23:15 07/01/19 23:14 Goldie Obrien MD May 19, 2019 09:59
--- NOTE | 2019-05-19 10:31 | Infectious Diseases Prog Note ---
Assessment/Plan Assessment/Plan Assessment: UCX : dale : colonizer COPD exacerbation , PNA, Sp -05/12 CXR: Bilateral interstitial disease, appearing similar to the previous exam,likely represents combination of senescent change and persistent or recurrent interstitial congestion -04/29 CXRLThere is bilateral interstitial congestion again demonstrated, appearing unchanged. No focal airspace consolidation. There is some atelectasis at the left lung base. -04/27 CXR: Borderline cardiomegaly. Questionable mild interstitial congestion , new or increased from previous study if real. -04/21 CTA chest:Somewhat limited exam, due to motion artifact. No definite evidence of pulmonary embolus or other acute thoracic vascular pathology. Borderline cardiomegaly. Diffuse bilateral pulmonary parenchymal groundglass opacity. Interspersed small bullae digestive this is due to COPD changes, but could also indicate a component of pulmonary edema. Considerable consolidation in the right lower lobe, likely pneumonia. Less extensive consolidation and atelectasis is seen at the left lung base. Pacemaker, degenerative spondylosis incidentally noted sp cx normal resp michael -04/19 CXR: Mild pulmonary vascular congestion -04/16 CXR: No acute disease -04/13 CXR: Suspected mild pulmonary vascular congestion. Correlate clinically -04/08 CXR: Mild pulmonary vascular congestion suspected Afebrile Leukocytosis,(pn steroids); improving Hyperglycemia Acute hypoxic respiratory failure ,on bipap PRN COPD CAD CHF prostate cancer s/p PPM former smoker Plan: - Amikacin INH # 8 ( as per Pul) - 05/05 Sp Ertapenem # 7/7 - 05/03 sp Vancomycin # 5 -04/28 SP Zosyn #8 -04/15 SP Levaquin #7 -04/08 SP Ceftriaxone x1, Azithromycin x1 -Monitor CBC/CMP, temperatures -aspiration precautions - on COVID-19 isolation (as per Pul) , test has been sent out case was DW Pul Thank you for this consultation. Will continue to follow along with you. Subjective Allergies: Coded Allergies: No Known Allergies (Unverified , 10/24/16) Subjective comfortable Objective Vital Signs Last 24 Hour Vital Signs Date Time Temp Pulse Resp B/P (MAP) Pulse Ox O2 Delivery O2 Flow Rate FiO2 05/19/19 09:52 85 22 94 Nasal Cannula 4.0 36 05/19/19 09:51 94 Nasal Cannula 4.0 36 05/19/19 09:51 85 18 94 Nasal Cannula 4.0 36 05/19/19 08:00 Nasal Cannula 3.0 05/19/19 07:53 97.5 79 22 131/88 (102) 91 05/19/19 07:53 75 05/19/19 04:10 75 05/19/19 04:00 97.7 74 20 12/72 (52) 94 05/19/19 04:00 3.0 05/19/19 04:00 Nasal Cannula 3.0 05/19/19 00:00 30 05/19/19 00:00 Nasal Cannula 3.0 05/19/19 00:00 97.8 76 20 110/68 (82) 93 05/18/19 23:28 72 05/18/19 22:47 73 20 97 Nasal Cannula 4.0 36 74 18 93 05/18/19 20:35 86 21 97 Nasal Cannula 4.0 36 05/18/19 20:35 97 Nasal Cannula 4.0 36 05/18/19 20:00 3.0 05/18/19 20:00 Nasal Cannula 3.0 05/18/19 20:00 98.1 80 20 114/73 (87) 92 05/18/19 19:31 69 05/18/19 16:00 3.0 05/18/19 16:00 Nasal Cannula 3.0 05/18/19 16:00 97.9 80 20 116/73 (87) 94 05/18/19 16:00 71 05/18/19 12:00 69 05/18/19 12:00 Nasal Cannula 3.0 05/18/19 12:00 3.0 05/18/19 12:00 97.2 72 20 133/79 (97) 95 05/18/19 10:42 98 Nasal Cannula 4.0 36 05/18/19 10:42 70 20 98 Nasal Cannula 4.0 36 69 20 93 Height (Feet): 6 Height (Inches): 0.00 Weight (Pounds): 214 HEENT: anicteric Respiratory/Chest: no respiratory distress Cardiovascular: normal rate Abdomen: no organomegaly Laboratory Tests Test 05/19/19 04:00 White Blood Count 8.6 K/UL (4.8-10.8) Red Blood Count 4.65 M/UL (4.70-6.10) L Hemoglobin 13.6 G/DL (14.2-18.0) L Hematocrit 42.7 % (42.0-52.0) Mean Corpuscular Volume 92 FL (80-99) Mean Corpuscular Hemoglobin 29.2 PG (27.0-31.0) Mean Corpuscular Hemoglobin Concent 31.8 G/DL (32.0-36.0) L Red Cell Distribution Width 13.9 % (11.6-14.8) Platelet Count 273 K/UL (150-450) Mean Platelet Volume 6.1 FL (6.5-10.1) L Neutrophils (%) (Auto) 51.9 % (45.0-75.0) Lymphocytes (%) (Auto) 24.6 % (20.0-45.0) Monocytes (%) (Auto) 4.2 % (1.0-10.0) Eosinophils (%) (Auto) 17.8 % (0.0-3.0) H Basophils (%) (Auto) 1.5 % (0.0-2.0) Sodium Level 143 MMOL/L (136-145) Potassium Level 4.2 MMOL/L (3.5-5.1) Chloride Level 104 MMOL/L (98-107) Carbon Dioxide Level 31 MMOL/L (21-32) Anion Gap 8 mmol/L (5-15) Blood Urea Nitrogen 17 mg/dL (7-18) Creatinine 1.0 MG/DL (0.55-1.30) Estimat Glomerular Filtration Rate > 60 mL/min (>60) Glucose Level 160 MG/DL (74-106) H Calcium Level 9.1 MG/DL (8.5-10.1) Total Bilirubin 0.1 MG/DL (0.2-1.0) L Aspartate Amino Transf (AST/SGOT) 16 U/L (15-37) Alanine Aminotransferase (ALT/SGPT) 31 U/L (12-78) Alkaline Phosphatase 101 U/L (46-116) Pro-B-Type Natriuretic Peptide Pending Total Protein 7.0 G/DL (6.4-8.2) Albumin 3.0 G/DL (3.4-5.0) L Globulin 4.0 g/dL Albumin/Globulin Ratio 0.8 (1.0-2.7) L Current Medications Medications (Trade) Dose Ordered Sig/Dejon Route PRN Reason Start Time Stop Time Status Last Admin Dose Admin Acetaminophen (Tylenol) 650 mg Q4H PRN ORAL Mild Pain/Temp > 100.5 05/16/19 22:45 06/15/19 22:44 05/18/19 00:05 Acetaminophen/ Hydrocodone Bitart ([place] 5/325) 1 tab Q6H PRN ORAL Severe Pain (Pain Scale 7-10) 05/16/19 15:00 05/21/19 14:59 05/19/19 06:08 Amikacin Sulfate (Amikin) 500 mg Q12HRT INH 05/16/19 22:00 05/23/19 21:59 05/19/19 09:48 Apixaban (Eliquis) 5 mg BID ORAL 05/16/19 18:00 06/06/19 08:59 05/19/19 08:33 Clonidine HCl (Catapres Tab) 0.1 mg Q4H PRN ORAL sbp more than 160 05/16/19 14:30 05/31/19 14:29 Clotrimazole (Lotrimin) 1 applic THREE TIMES A DAY TOPIC 05/16/19 18:00 05/20/19 12:59 05/19/19 08:33 Docusate Sodium (Colace) 100 mg TWICE A DAY ORAL 05/16/19 18:00 05/31/19 08:59 05/19/19 08:32 Escitalopram Oxalate (Lexapro) 10 mg DAILY ORAL 05/17/19 09:00 05/27/19 08:59 05/19/19 08:32 Levothyroxine Sodium (Synthroid) 75 mcg ACBREAKFAST ORAL 05/17/19 06:30 05/27/19 06:29 05/19/19 05:51 Nitroglycerin (Ntg) 0.4 mg Q5M X 3 DOSES PRN SL Prn Chest Pain 05/16/19 13:45 06/06/19 15:29 Nystatin (Nystatin) 5 ml QID ORAL 05/16/19 18:00 05/20/19 12:59 05/19/19 08:33 Ondansetron HCl (Zofran) 4 mg Q6H PRN IVP Nausea & Vomiting 05/16/19 13:00 05/31/19 12:59 Oxymetazoline HCl (Afrin Nasal [place]) 1 spray Q6H PRN NASAL nasal congestion 05/16/19 13:00 05/31/19 12:59 Pantoprazole (Protonix) 40 mg EVERY 12 HOURS ORAL 05/16/19 21:00 06/05/19 20:59 05/19/19 08:32 Polyethylene Glycol (Miralax) 17 gm BEDTIME ORAL 05/16/19 21:00 05/31/19 20:59 Promethazine HCl/ Codeine (Phenergan with Codeine) 5 ml Q6H PRN ORAL cough 05/16/19 13:00 05/31/19 12:59 Quetiapine Fumarate (SEROqueL) 25 mg EVERY 6 HOURS PRN ORAL For Anxiety 05/17/19 23:15 07/01/19 23:14 Robert Canela MD May 19, 2019 10:31
--- NOTE | 2019-05-19 11:19 | Internal Med Progress Note ---
Subjective Date of Service: May 19, 2019 Physician Name Idris Lugo Attending Physician Jewel Giraldo MD Current Medications Medications (Trade) Dose Ordered Sig/Dejon Route PRN Reason Start Time Stop Time Status Last Admin Dose Admin Acetaminophen (Tylenol) 650 mg Q4H PRN ORAL Mild Pain/Temp > 100.5 05/16/19 22:45 06/15/19 22:44 05/18/19 00:05 Acetaminophen/ Hydrocodone Bitart ([place] 5/325) 1 tab Q6H PRN ORAL Severe Pain (Pain Scale 7-10) 05/16/19 15:00 05/21/19 14:59 05/19/19 06:08 Amikacin Sulfate (Amikin) 500 mg Q12HRT INH 05/16/19 22:00 05/23/19 21:59 05/19/19 09:48 Apixaban (Eliquis) 5 mg BID ORAL 05/16/19 18:00 06/06/19 08:59 05/19/19 08:33 Clonidine HCl (Catapres Tab) 0.1 mg Q4H PRN ORAL sbp more than 160 05/16/19 14:30 05/31/19 14:29 Clotrimazole (Lotrimin) 1 applic THREE TIMES A DAY TOPIC 05/16/19 18:00 05/20/19 12:59 05/19/19 08:33 Docusate Sodium (Colace) 100 mg TWICE A DAY ORAL 05/16/19 18:00 05/31/19 08:59 05/19/19 08:32 Escitalopram Oxalate (Lexapro) 10 mg DAILY ORAL 05/17/19 09:00 05/27/19 08:59 05/19/19 08:32 Levothyroxine Sodium (Synthroid) 75 mcg ACBREAKFAST ORAL 05/17/19 06:30 05/27/19 06:29 05/19/19 05:51 Nitroglycerin (Ntg) 0.4 mg Q5M X 3 DOSES PRN SL Prn Chest Pain 05/16/19 13:45 06/06/19 15:29 Nystatin (Nystatin) 5 ml QID ORAL 05/16/19 18:00 05/20/19 12:59 05/19/19 08:33 Ondansetron HCl (Zofran) 4 mg Q6H PRN IVP Nausea & Vomiting 05/16/19 13:00 05/31/19 12:59 Oxymetazoline HCl (Afrin Nasal [place]) 1 spray Q6H PRN NASAL nasal congestion 05/16/19 13:00 05/31/19 12:59 Pantoprazole (Protonix) 40 mg EVERY 12 HOURS ORAL 05/16/19 21:00 06/05/19 20:59 05/19/19 08:32 Polyethylene Glycol (Miralax) 17 gm BEDTIME ORAL 05/16/19 21:00 05/31/19 20:59 Promethazine HCl/ Codeine (Phenergan with Codeine) 5 ml Q6H PRN ORAL cough 05/16/19 13:00 05/31/19 12:59 Quetiapine Fumarate (SEROqueL) 25 mg EVERY 6 HOURS PRN ORAL For Anxiety 05/17/19 23:15 07/01/19 23:14 Allergies: Coded Allergies: No Known Allergies (Unverified , 10/24/16) ROS Limited/Unobtainable: No Constitutional: Reports: no symptoms HEENT: Reports: no symptoms Cardiovascular: Reports: no symptoms Respiratory: Reports: shortness of breath Gastrointestinal/Abdominal: Reports: no symptoms Genitourinary: Reports: no symptoms Neurologic/Psychiatric: Reports: no symptoms Subjective 73 YO M admitted with COPD exacerbation. Now respiratory failure and pneumonia. Cover for Int Med-DR Giraldo. S/P endoscopy 05/06/19. Off BIPAP. CALVIN Objective Last Vital Signs Date Time Temp Pulse Resp B/P (MAP) Pulse Ox O2 Delivery O2 Flow Rate FiO2 05/19/19 09:52 85 22 94 Nasal Cannula 4.0 36 05/19/19 07:53 97.5 131/88 (102) Laboratory Tests Test 05/19/19 04:00 White Blood Count 8.6 K/UL (4.8-10.8) Red Blood Count 4.65 M/UL (4.70-6.10) L Hemoglobin 13.6 G/DL (14.2-18.0) L Hematocrit 42.7 % (42.0-52.0) Mean Corpuscular Volume 92 FL (80-99) Mean Corpuscular Hemoglobin 29.2 PG (27.0-31.0) Mean Corpuscular Hemoglobin Concent 31.8 G/DL (32.0-36.0) L Red Cell Distribution Width 13.9 % (11.6-14.8) Platelet Count 273 K/UL (150-450) Mean Platelet Volume 6.1 FL (6.5-10.1) L Neutrophils (%) (Auto) 51.9 % (45.0-75.0) Lymphocytes (%) (Auto) 24.6 % (20.0-45.0) Monocytes (%) (Auto) 4.2 % (1.0-10.0) Eosinophils (%) (Auto) 17.8 % (0.0-3.0) H Basophils (%) (Auto) 1.5 % (0.0-2.0) Sodium Level 143 MMOL/L (136-145) Potassium Level 4.2 MMOL/L (3.5-5.1) Chloride Level 104 MMOL/L (98-107) Carbon Dioxide Level 31 MMOL/L (21-32) Anion Gap 8 mmol/L (5-15) Blood Urea Nitrogen 17 mg/dL (7-18) Creatinine 1.0 MG/DL (0.55-1.30) Estimat Glomerular Filtration Rate > 60 mL/min (>60) Glucose Level 160 MG/DL (74-106) H Calcium Level 9.1 MG/DL (8.5-10.1) Total Bilirubin 0.1 MG/DL (0.2-1.0) L Aspartate Amino Transf (AST/SGOT) 16 U/L (15-37) Alanine Aminotransferase (ALT/SGPT) 31 U/L (12-78) Alkaline Phosphatase 101 U/L (46-116) Pro-B-Type Natriuretic Peptide Pending Total Protein 7.0 G/DL (6.4-8.2) Albumin 3.0 G/DL (3.4-5.0) L Globulin 4.0 g/dL Albumin/Globulin Ratio 0.8 (1.0-2.7) L Intake and Output 05/18/19 05/19/19 19:00 07:00 Intake Total 1500 ml 400 ml Output Total 1400 ml 900 ml Balance 100 ml -500 ml Intake Oral 1500 ml 400 ml Output Urine Total 1400 ml 900 ml # Bowel Movements 2 Objective PHYSICAL EXAMINATION: GENERAL: The patient is awake, responsive, no acute distress. HEAD AND NECK: Pupils are equal and reactive to light. Extraocular muscles intact. Neck was supple. No JVD. LUNGS: Nasal canula;The patient has expiratory wheezes noted. Tachypneic. No rhonchi was noted. HEART: S1, S2. Irregular. No murmur. The patient has a pacemaker in the left-sided chest wall. ABDOMEN: Soft, nondistended, nontender. Mildly obese. EXTREMITIES: No cyanosis, clubbing, edema. NEUROLOGIC: Cranial nerves II through XII grossly normal. Motor is 5/5 in all extremities. Gait is intact. GENITOURINARY: It was noted the patient has a [place] catheter. RECTAL: Refused and deferred. PSYCHIATRIC: Mood and affect is intact. Assessment/Plan Assessment/Plan ASSESSMENT: 1. Acute hypoxemic respiratory failure, most likely secondary to acute COPD exacerbation. 2. Acute COPD exacerbation. 3. Pneumonia. 4. Sick sinus syndrome status post pacemaker. 5. Diabetes type 2. 6. Prostate cancer. 7. Hyperkalemia. 8. Insulin induced hyperglycemia. 9. Prostate enlargement. 10. Leukocytosis 11. RBBB 12 Gastritis PLAN: 1. Med/Surg 2. D/C Solu-Medrol IV Per Pulmonary consult=Dr. Obrien. 3. Endocrinology=Dr To. Monitor blood glucose level closely. 4. antibiotic= inhaled amikacin; S/P ertapenem and vanco. ID=Dr Villa 5. Code status is Full Code. DVT prophylaxis, he is on Eliquis. 6. S/P endoscopy 05/06/19=gastritis Idris Lugo MD May 19, 2019 11:19
[2019-05-19 12:00] VITALS: BP 124/73
--- NOTE | 2019-05-19 14:54 | Diagnostic Imaging Report ---
Indication: Shortness of breath Technique: One view of the chest Comparison: 05/14/2019 Findings: Left chest pacemaker is again demonstrated. Bilateral diffuse mild interstitial disease and central bronchial wall thickening appears unchanged from the prior study. Low lung volumes with compressive atelectatic changes are again demonstrated. Impression: Unchanged, over 5 days, findings as above.
[2019-05-19 16:00] VITALS: BP 121/71
[2019-05-19 20:00] VITALS: BP 122/70
[2019-05-19] MEDS ORDERED: Albuterol/Ipratropium 3ml neb HHN PRN (20:45)
[2019-05-19] MEDS: Miralax 17gm pkt ORAL SCH (21:00)
[2019-05-20] VITALS: BP 122/76
[2019-05-20 04:00] VITALS: BP 138/81
[2019-05-20 08:00] VITALS: BP 100/73
[2019-05-20] MEDS: Nystatin Susp 500,000 units/5ml ORAL SCH (08:29)
[2019-05-20] MEDS: Docusate 100mg cap ORAL SCH ×2 (08:29→17:34)
[2019-05-20] MEDS: Eliquis 5mg tablet ORAL SCH ×2 (08:30→17:34)
[2019-05-20] MEDS: Amikacin for Inhalation 2ML INH SCH ×2 (09:19→21:32)
[2019-05-20 10:52] LABS: ANION GAP 1 mmol/L (5-15); BLOOD UREA NITROGEN 14 mg/dL (7-18); CALCIUM 9.2 MG/DL (8.5-10.1); CARBON DIOXIDE 38 MMOL/L (21-32); CHLORIDE 106 MMOL/L (98-107); POTASSIUM 4.1 MMOL/L (3.5-5.1); SODIUM 145 MMOL/L (136-145)
[2019-05-20 11:10] LABS: HEMATOCRIT 41.8 % (42.0-52.0); HEMOGLOBIN 13.4 G/DL (14.2-18.0); MEAN CORPUSCULAR VOLUME 91 FL (80-99); PLATELET COUNT 289 K/UL (150-450); RED BLOOD COUNT 4.59 M/UL (4.70-6.10); RED CELL DISTRIBUTION WIDTH 13.9 % (11.6-14.8); WHITE BLOOD COUNT 8.4 K/UL (4.8-10.8)
--- NOTE | 2019-05-20 11:37 | Pulmonology Progress Note ---
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 [place] Virus was negative Subjective ROS Limited/Unobtainable: No Constitutional: Reports: no symptoms HEENT: Repors: no symptoms Allergies: Coded Allergies: No Known Allergies (Unverified , 10/24/16) Objective Last 24 Hour Vital Signs Date Time Temp Pulse Resp B/P (MAP) Pulse Ox O2 Delivery O2 Flow Rate FiO2 05/20/19 09:30 71 20 93 Nasal Cannula 3.0 32 88 18 90 05/20/19 08:00 Nasal Cannula 3.0 05/20/19 08:00 97.5 69 18 100/73 (82) 92 05/20/19 07:48 70 05/20/19 07:00 76 19 93 Nasal Cannula 3.0 32 05/20/19 07:00 93 Nasal Cannula 3.0 32 05/20/19 04:00 97.5 70 20 138/81 (100) 92 05/20/19 04:00 72 05/20/19 04:00 Nasal Cannula 3.0 05/20/19 00:00 71 05/20/19 00:00 Nasal Cannula 3.0 05/20/19 00:00 97.2 75 20 122/76 (91) 91 05/19/19 21:06 70 20 90 Nasal Cannula 4.0 36 05/19/19 21:06 90 Nasal Cannula 4.0 36 05/19/19 21:06 72 18 92 Nasal Cannula 4.0 36 70 18 90 05/19/19 20:00 Nasal Cannula 3.0 05/19/19 20:00 97.0 75 21 122/70 (87) 90 05/19/19 20:00 70 05/19/19 16:00 Nasal Cannula 3.0 05/19/19 16:00 97.5 74 21 121/71 (88) 92 05/19/19 15:14 70 05/19/19 12:00 97.9 76 26 124/73 (90) 90 05/19/19 12:00 Nasal Cannula 3.0 05/19/19 11:38 72 Intake and Output 05/19/19 05/20/19 19:00 07:00 Intake Total 360 ml 500 ml Output Total 900 ml 600 ml Balance -540 ml -100 ml Intake Oral 360 ml 500 ml Output Urine Total 900 ml 600 ml # Bowel Movements 2 General Appearance: WD/WN HEENT: normocephalic, atraumatic Respiratory/Chest: chest wall non-tender, lungs clear Cardiovascular: normal peripheral pulses, normal rate Abdomen: normal bowel sounds, soft, non tender Genitourinary: normal external genitalia Extremities: no clubbing Neurologic/Psychiatric: demo coordinator II-XII grossly normal Microbiology Date/Time Source Procedure Growth Status 05/19/19 21:00 Sputum Induced Gram Stain - Final Resulted 05/19/19 21:00 Sputum Induced Sputum Culture Pending Resulted Laboratory Tests 05/20/19 10:00: White Blood Count 8.4, Red Blood Count 4.59L, Hemoglobin 13.4L, Hematocrit 41.8L , Mean Corpuscular Volume 91, Mean Corpuscular Hemoglobin 29.2, Mean Corpuscular Hemoglobin Concent 32.0, Red Cell Distribution Width 13.9, Platelet Count 289, Mean Platelet Volume 6.5, Neutrophils (%) (Auto) , Lymphocytes (%) ( Auto) , Monocytes (%) (Auto) , Eosinophils (%) (Auto) , Basophils (%) (Auto) , Neutrophils % (Manual) [Pending], Lymphocytes % (Manual) [Pending], Platelet Estimate [Pending], Platelet Morphology [Pending], Sodium Level 145, Potassium Level 4.1, Chloride Level 106, Carbon Dioxide Level 38H, Anion Gap 1L, Blood Urea Nitrogen 14, Creatinine 1.0, Estimat Glomerular Filtration Rate > 60, Glucose Level 150H, Calcium Level 9.2 05/20/19 10:15: Stool Occult Blood [Pending] Current Medications Medications (Trade) Dose Ordered Sig/Dejon Route PRN Reason Start Time Stop Time Status Last Admin Dose Admin Acetaminophen (Tylenol) 650 mg Q4H PRN ORAL Mild Pain/Temp > 100.5 05/16/19 22:45 06/15/19 22:44 05/20/19 08:42 Acetaminophen/ Hydrocodone Bitart ([place] 5/325) 1 tab Q6H PRN ORAL Severe Pain (Pain Scale 7-10) 05/16/19 15:00 05/21/19 14:59 05/19/19 21:24 Albuterol/ Ipratropium (Albuterol/ Ipratropium) 3 ml Q4H PRN HHN Shortness of Breath 05/19/19 20:45 05/24/19 20:44 Amikacin Sulfate (Amikin) 500 mg Q12HRT INH 05/16/19 22:00 05/23/19 21:59 05/20/19 09:19 Apixaban (Eliquis) 5 mg BID ORAL 05/16/19 18:00 06/06/19 08:59 05/20/19 08:30 Clonidine HCl (Catapres Tab) 0.1 mg Q4H PRN ORAL sbp more than 160 05/16/19 14:30 05/31/19 14:29 Clotrimazole (Lotrimin) 1 applic EVERY 8 HOURS TOPIC 05/19/19 14:00 05/20/19 12:59 05/20/19 06:07 Docusate Sodium (Colace) 100 mg TWICE A DAY ORAL 05/16/19 18:00 05/31/19 08:59 05/20/19 08:29 Escitalopram Oxalate (Lexapro) 10 mg DAILY ORAL 05/17/19 09:00 05/27/19 08:59 05/20/19 08:29 Levothyroxine Sodium (Synthroid) 75 mcg ACBREAKFAST ORAL 05/17/19 06:30 05/27/19 06:29 05/20/19 06:07 Nitroglycerin (Ntg) 0.4 mg Q5M X 3 DOSES PRN SL Prn Chest Pain 05/16/19 13:45 06/06/19 15:29 Nystatin (Nystatin) 5 ml QID ORAL 05/16/19 18:00 05/20/19 12:59 05/20/19 08:29 Ondansetron HCl (Zofran) 4 mg Q6H PRN IVP Nausea & Vomiting 05/16/19 13:00 05/31/19 12:59 Oxymetazoline HCl (Afrin Nasal [place]) 1 spray Q6H PRN NASAL nasal congestion 05/16/19 13:00 05/31/19 12:59 Pantoprazole (Protonix) 40 mg EVERY 12 HOURS ORAL 05/16/19 21:00 06/05/19 20:59 05/20/19 08:29 Polyethylene Glycol (Miralax) 17 gm BEDTIME ORAL 05/16/19 21:00 05/31/19 20:59 Promethazine HCl/ Codeine (Phenergan with Codeine) 5 ml Q6H PRN ORAL cough 05/16/19 13:00 05/31/19 12:59 Quetiapine Fumarate (SEROqueL) 25 mg EVERY 6 HOURS PRN ORAL For Anxiety 05/17/19 23:15 07/01/19 23:14 Goldie Obrien MD May 20, 2019 11:37
[2019-05-20 12:00] VITALS: BP 117/88
--- NOTE | 2019-05-20 12:06 | General Progress Note ---
Assessment/Plan Problem List: (1) Diabetes mellitus ICD Codes: E11.9 - Type 2 diabetes mellitus without complications SNOMED: 67523556 (2) Respiratory failure with hypoxia ICD Codes: J96.91 - Respiratory failure, unspecified with hypoxia SNOMED: 41047979230300376 (3) COPD exacerbation ICD Codes: J44.1 - Chronic obstructive pulmonary disease with (acute) exacerbation SNOMED: 266941396 (4) Hypothyroid ICD Codes: E03.9 - Hypothyroidism, unspecified SNOMED: 17282136 (5) Pacemaker ICD Codes: Z95.0 - Presence of cardiac pacemaker SNOMED: 456361136 (6) Prostate cancer ICD Codes: C61 - Malignant neoplasm of prostate SNOMED: 842773423 Status: stable, not improved, deteriorating Assessment/Plan: s/p EGD stable H&H needs out patient fu fo colonoscopy repeat stool ob pending good po intake fu pulm recs Subjective ROS Limited/Unobtainable: No Allergies: Coded Allergies: No Known Allergies (Unverified , 10/24/16) Objective Last 24 Hour Vital Signs Date Time Temp Pulse Resp B/P (MAP) Pulse Ox O2 Delivery O2 Flow Rate FiO2 05/20/19 09:30 71 20 93 Nasal Cannula 3.0 32 88 18 90 05/20/19 08:00 Nasal Cannula 3.0 05/20/19 08:00 97.5 69 18 100/73 (82) 92 05/20/19 07:48 70 05/20/19 07:00 76 19 93 Nasal Cannula 3.0 32 05/20/19 07:00 93 Nasal Cannula 3.0 32 05/20/19 04:00 97.5 70 20 138/81 (100) 92 05/20/19 04:00 72 05/20/19 04:00 Nasal Cannula 3.0 05/20/19 00:00 71 05/20/19 00:00 Nasal Cannula 3.0 05/20/19 00:00 97.2 75 20 122/76 (91) 91 05/19/19 21:06 70 20 90 Nasal Cannula 4.0 36 05/19/19 21:06 90 Nasal Cannula 4.0 36 05/19/19 21:06 72 18 92 Nasal Cannula 4.0 36 70 18 90 05/19/19 20:00 Nasal Cannula 3.0 05/19/19 20:00 97.0 75 21 122/70 (87) 90 05/19/19 20:00 70 05/19/19 16:00 Nasal Cannula 3.0 05/19/19 16:00 97.5 74 21 121/71 (88) 92 05/19/19 15:14 70 Intake and Output 05/19/19 05/20/19 19:00 07:00 Intake Total 360 ml 500 ml Output Total 900 ml 600 ml Balance -540 ml -100 ml Intake Oral 360 ml 500 ml Output Urine Total 900 ml 600 ml # Bowel Movements 2 Laboratory Tests 05/20/19 10:00: White Blood Count 8.4, Red Blood Count 4.59L, Hemoglobin 13.4L, Hematocrit 41.8L , Mean Corpuscular Volume 91, Mean Corpuscular Hemoglobin 29.2, Mean Corpuscular Hemoglobin Concent 32.0, Red Cell Distribution Width 13.9, Platelet Count 289, Mean Platelet Volume 6.5, Neutrophils (%) (Auto) , Lymphocytes (%) ( Auto) , Monocytes (%) (Auto) , Eosinophils (%) (Auto) , Basophils (%) (Auto) , Neutrophils % (Manual) [Pending], Lymphocytes % (Manual) [Pending], Platelet Estimate [Pending], Platelet Morphology [Pending], Sodium Level 145, Potassium Level 4.1, Chloride Level 106, Carbon Dioxide Level 38H, Anion Gap 1L, Blood Urea Nitrogen 14, Creatinine 1.0, Estimat Glomerular Filtration Rate > 60, Glucose Level 150H, Calcium Level 9.2 05/20/19 10:15: Stool Occult Blood [Pending] Height (Feet): 6 Height (Inches): 0.00 Weight (Pounds): 214 General Appearance: no apparent distress EENT: normal ENT inspection Neck: supple Cardiovascular: normal rate Respiratory/Chest: decreased breath sounds Abdomen: normal bowel sounds, non tender, soft Extremities: non-tender Christiano La MD May 20, 2019 12:06
--- NOTE | 2019-05-20 14:06 | Infectious Diseases Prog Note ---
Assessment/Plan Assessment/Plan Assessment: UCX : dale : colonizer COPD exacerbation , PNA, Sp -05/12 CXR: Bilateral interstitial disease, appearing similar to the previous exam,likely represents combination of senescent change and persistent or recurrent interstitial congestion -04/29 CXRLThere is bilateral interstitial congestion again demonstrated, appearing unchanged. No focal airspace consolidation. There is some atelectasis at the left lung base. -04/27 CXR: Borderline cardiomegaly. Questionable mild interstitial congestion , new or increased from previous study if real. -04/21 CTA chest:Somewhat limited exam, due to motion artifact. No definite evidence of pulmonary embolus or other acute thoracic vascular pathology. Borderline cardiomegaly. Diffuse bilateral pulmonary parenchymal groundglass opacity. Interspersed small bullae digestive this is due to COPD changes, but could also indicate a component of pulmonary edema. Considerable consolidation in the right lower lobe, likely pneumonia. Less extensive consolidation and atelectasis is seen at the left lung base. Pacemaker, degenerative spondylosis incidentally noted sp cx normal resp michael -04/19 CXR: Mild pulmonary vascular congestion -04/16 CXR: No acute disease -04/13 CXR: Suspected mild pulmonary vascular congestion. Correlate clinically -04/08 CXR: Mild pulmonary vascular congestion suspected Afebrile Leukocytosis,(pn steroids); improving Hyperglycemia Acute hypoxic respiratory failure ,on bipap PRN COPD CAD CHF prostate cancer s/p PPM former smoker Plan: - Amikacin INH # 9 and Vfend # 1( as per Pul) - 05/05 Sp Ertapenem # 7/7 - 05/03 sp Vancomycin # 5 -04/28 SP Zosyn #8 -04/15 SP Levaquin #7 -04/08 SP Ceftriaxone x1, Azithromycin x1 -Monitor CBC/CMP, temperatures -aspiration precautions - Chest CT - [place] COVID-19 isolation as the send out result is neg as per RN Case was DW Pul (05/18) Thank you for this consultation. Will continue to follow along with you. Subjective Allergies: Coded Allergies: No Known Allergies (Unverified , 10/24/16) Subjective going for CT of chest Objective Vital Signs Last 24 Hour Vital Signs Date Time Temp Pulse Resp B/P (MAP) Pulse Ox O2 Delivery O2 Flow Rate FiO2 05/20/19 12:00 Nasal Cannula 3.0 05/20/19 12:00 97.7 72 22 117/88 (98) 94 05/20/19 11:46 70 05/20/19 09:30 71 20 93 Nasal Cannula 3.0 32 88 18 90 05/20/19 08:00 Nasal Cannula 3.0 05/20/19 08:00 97.5 69 18 100/73 (82) 92 05/20/19 07:48 70 05/20/19 07:00 76 19 93 Nasal Cannula 3.0 32 05/20/19 07:00 93 Nasal Cannula 3.0 32 05/20/19 04:00 97.5 70 20 138/81 (100) 92 05/20/19 04:00 72 05/20/19 04:00 Nasal Cannula 3.0 05/20/19 00:00 71 05/20/19 00:00 Nasal Cannula 3.0 05/20/19 00:00 97.2 75 20 122/76 (91) 91 05/19/19 21:06 70 20 90 Nasal Cannula 4.0 36 05/19/19 21:06 90 Nasal Cannula 4.0 36 05/19/19 21:06 72 18 92 Nasal Cannula 4.0 36 70 18 90 05/19/19 20:00 Nasal Cannula 3.0 05/19/19 20:00 97.0 75 21 122/70 (87) 90 05/19/19 20:00 70 05/19/19 16:00 Nasal Cannula 3.0 05/19/19 16:00 97.5 74 21 121/71 (88) 92 05/19/19 15:14 70 Height (Feet): 6 Height (Inches): 0.00 Weight (Pounds): 214 HEENT: mucous membranes moist Respiratory/Chest: normal breath sounds Cardiovascular: regular rhythm Abdomen: no organomegaly Microbiology Date/Time Source Procedure Growth Status 05/19/19 21:00 Sputum Induced Gram Stain - Final Resulted 05/19/19 21:00 Sputum Induced Sputum Culture Pending Resulted Laboratory Tests Test 05/20/19 10:00 05/20/19 10:15 White Blood Count 8.4 K/UL (4.8-10.8) Red Blood Count 4.59 M/UL (4.70-6.10) L Hemoglobin 13.4 G/DL (14.2-18.0) L Hematocrit 41.8 % (42.0-52.0) L Mean Corpuscular Volume 91 FL (80-99) Mean Corpuscular Hemoglobin 29.2 PG (27.0-31.0) Mean Corpuscular Hemoglobin Concent 32.0 G/DL (32.0-36.0) Red Cell Distribution Width 13.9 % (11.6-14.8) Platelet Count 289 K/UL (150-450) Mean Platelet Volume 6.5 FL (6.5-10.1) Neutrophils (%) (Auto) % (45.0-75.0) Lymphocytes (%) (Auto) % (20.0-45.0) Monocytes (%) (Auto) % (1.0-10.0) Eosinophils (%) (Auto) % (0.0-3.0) Basophils (%) (Auto) % (0.0-2.0) Differential Total Cells Counted 100 Neutrophils % (Manual) 47 % (45-75) Lymphocytes % (Manual) 24 % (20-45) Monocytes % (Manual) 5 % (1-10) Eosinophils % (Manual) 24 % (0-3) H Basophils % (Manual) 0 % (0-2) Band Neutrophils 0 % (0-8) Platelet Estimate Adequate Platelet Morphology Normal Red Blood Cell Morphology Normal Sodium Level 145 MMOL/L (136-145) Potassium Level 4.1 MMOL/L (3.5-5.1) Chloride Level 106 MMOL/L (98-107) Carbon Dioxide Level 38 MMOL/L (21-32) H Anion Gap 1 mmol/L (5-15) L Blood Urea Nitrogen 14 mg/dL (7-18) Creatinine 1.0 MG/DL (0.55-1.30) Estimat Glomerular Filtration Rate > 60 mL/min (>60) Glucose Level 150 MG/DL (74-106) H Calcium Level 9.2 MG/DL (8.5-10.1) Stool Occult Blood Pending Current Medications Medications (Trade) Dose Ordered Sig/Dejon Route PRN Reason Start Time Stop Time Status Last Admin Dose Admin Acetaminophen (Tylenol) 650 mg Q4H PRN ORAL Mild Pain/Temp > 100.5 05/16/19 22:45 06/15/19 22:44 05/20/19 08:42 Acetaminophen/ Hydrocodone Bitart ([place] 5/325) 1 tab Q6H PRN ORAL Severe Pain (Pain Scale 7-10) 05/16/19 15:00 05/21/19 14:59 05/19/19 21:24 Albuterol/ Ipratropium (Albuterol/ Ipratropium) 3 ml Q4H PRN HHN Shortness of Breath 05/19/19 20:45 05/24/19 20:44 Amikacin Sulfate (Amikin) 500 mg Q12HRT INH 05/16/19 22:00 05/23/19 21:59 05/20/19 09:19 Apixaban (Eliquis) 5 mg BID ORAL 05/16/19 18:00 06/06/19 08:59 05/20/19 08:30 Clonidine HCl (Catapres Tab) 0.1 mg Q4H PRN ORAL sbp more than 160 05/16/19 14:30 05/31/19 14:29 Docusate Sodium (Colace) 100 mg TWICE A DAY ORAL 05/16/19 18:00 05/31/19 08:59 05/20/19 08:29 Escitalopram Oxalate (Lexapro) 10 mg DAILY ORAL 05/17/19 09:00 05/27/19 08:59 05/20/19 08:29 Levothyroxine Sodium (Synthroid) 75 mcg ACBREAKFAST ORAL 05/17/19 06:30 05/27/19 06:29 05/20/19 06:07 Nitroglycerin (Ntg) 0.4 mg Q5M X 3 DOSES PRN SL Prn Chest Pain 05/16/19 13:45 06/06/19 15:29 Ondansetron HCl (Zofran) 4 mg Q6H PRN IVP Nausea & Vomiting 05/16/19 13:00 05/31/19 12:59 Oxymetazoline HCl (Afrin Nasal [place]) 1 spray Q6H PRN NASAL nasal congestion 05/16/19 13:00 05/31/19 12:59 Pantoprazole (Protonix) 40 mg EVERY 12 HOURS ORAL 05/16/19 21:00 06/05/19 20:59 05/20/19 08:29 Polyethylene Glycol (Miralax) 17 gm BEDTIME ORAL 05/16/19 21:00 05/31/19 20:59 Promethazine HCl/ Codeine (Phenergan with Codeine) 5 ml Q6H PRN ORAL cough 05/16/19 13:00 05/31/19 12:59 Quetiapine Fumarate (SEROqueL) 25 mg EVERY 6 HOURS PRN ORAL For Anxiety 05/17/19 23:15 07/01/19 23:14 Voriconazole (Vfend) 200 mg EVERY 12 HOURS ORAL 05/20/19 13:00 05/27/19 12:59 05/20/19 13:21 Robert Canela MD May 20, 2019 14:06
--- NOTE | 2019-05-20 15:55 | Diagnostic Imaging Report ---
Clinical Indication: Cough Technique: Spiral acquisition obtained through the chest. No IV contrast utilized, per high resolution protocol. Axial 5 x 5 mm slices were reconstructed. Axial 1 mm thick slices were reconstructed using high resolution algorithm at 10 mm intervals. Multiplanar reconstructions generated. Total dose length product 380 mGycm. CTDIvol(s) 9 mGy. Dose reduction achieved using automated exposure control Comparison: 04/21/2019 Findings: Reticular interstitial and confluent opacities at the right lung base appears similar to the previous exam, although there is a slightly greater extent of confluent opacity and atelectatic change. There is a new area of atelectasis in the inferior lingula. Area of probable scarring is seen in the superior segment of the left lower lobe. Posterior dependent upper lobe atelectatic changes appear minimally improved. Subtle interstitial opacities in the left lower lobe appears slightly increased. Again demonstrated are focal areas of hyperinflation in the upper lobes bilaterally. High-resolution images demonstrates similar findings, better demonstrate the cystic airspaces in the upper lobes. No generalized interstitial septal thickening. There is minimal background diffuse generalized groundglass opacity in the upper lobes, similar to the prior study. No significant focal groundglass opacity, nodularity, bronchiectasis, or honeycombing demonstrated. The heart size is normal. There is minimal anterior wall pericardial thickening. There is a pacemaker. Prominent but not frankly enlarged mediastinal nodes are again demonstrated. There is minimal gynecomastia bilaterally. The included upper abdominal anatomy is unremarkable Impression: Since 04/21/2019, minimally increased right basilar confluent opacities and atelectasis may reflect increasing inflammatory change. Otherwise, similar to the prior study suggestive may be a significant chronic component. New band of atelectasis in the inferior lingula. Increasing subpleural confluent opacities in the left lung. Stable upper lobe hyperinflation and cystic changes, presumably representing COPD. Background generalized mild groundglass opacity, likely related to such. No evidence of generalized interstitial disease Decreased posterior upper lobe dependent atelectatic changes Nonspecific prominent but not frankly enlarged mediastinal nodes Incidental findings of bilateral gynecomastia, pacemaker, pericardial thickening The CT scanner at [facility] is accredited by the [employer] and the scans are performed using protocols designed to limit radiation exposure to as low as reasonably achievable to attain images of sufficient resolution adequate for diagnostic evaluation.
[2019-05-20 16:04] VITALS: BP 119/73
[2019-05-20] MEDS ORDERED: Nitroglycerin Subl 0.4mg tab SL PRN (17:15)
[2019-05-20] MEDS ORDERED: Promethazine/Codeine 5ml UD ORAL PRN (17:30)
[2019-05-20] MEDS ORDERED: Oxymetazoline 0.05% Na Spray 30ml NASAL PRN (17:30)
[2019-05-20] MEDS ORDERED: Albuterol/Ipratropium 3ml neb HHN PRN (17:30)
--- NOTE | 2019-05-20 18:58 | Internal Med Progress Note ---
Subjective Date of Service: May 20, 2019 Physician Name BrittneyIdris Attending Physician Jewel Giraldo MD Current Medications Medications (Trade) Dose Ordered Sig/Dejon Route PRN Reason Start Time Stop Time Status Last Admin Dose Admin Acetaminophen (Tylenol) 650 mg Q4H PRN ORAL Mild Pain/Temp > 100.5 05/20/19 17:30 06/15/19 17:29 Acetaminophen/ Hydrocodone Bitart ([place] 5/325) 1 tab Q6H PRN ORAL Severe Pain (Pain Scale 7-10) 05/20/19 17:30 05/21/19 17:29 Albuterol/ Ipratropium (Albuterol/ Ipratropium) 3 ml Q4H PRN HHN Shortness of Breath 05/20/19 17:30 05/24/19 17:29 Amikacin Sulfate (Amikin) 500 mg Q12HRT INH 05/20/19 22:00 05/23/19 21:59 Apixaban (Eliquis) 5 mg BID ORAL 05/20/19 18:00 06/06/19 08:59 05/20/19 17:34 Clonidine HCl (Catapres Tab) 0.1 mg Q4H PRN ORAL sbp more than 160 05/20/19 17:30 05/31/19 17:29 Docusate Sodium (Colace) 100 mg TWICE A DAY ORAL 05/20/19 18:00 05/31/19 08:59 05/20/19 17:34 Escitalopram Oxalate (Lexapro) 10 mg DAILY ORAL 05/21/19 09:00 05/27/19 08:59 Levothyroxine Sodium (Synthroid) 75 mcg ACBREAKFAST ORAL 05/21/19 06:30 05/27/19 06:29 Nitroglycerin (Ntg) 0.4 mg Q5M X 3 DOSES PRN SL Prn Chest Pain 05/20/19 17:15 06/06/19 15:29 Ondansetron HCl (Zofran) 4 mg Q6H PRN IVP Nausea & Vomiting 05/20/19 19:00 05/31/19 12:59 Oxymetazoline HCl (Afrin Nasal [place]) 1 spray Q6H PRN NASAL nasal congestion 05/20/19 17:30 05/31/19 17:29 Pantoprazole (Protonix) 40 mg EVERY 12 HOURS ORAL 05/20/19 21:00 06/05/19 20:59 Polyethylene Glycol (Miralax) 17 gm BEDTIME ORAL 05/20/19 21:00 05/31/19 20:59 Promethazine HCl/ Codeine (Phenergan with Codeine) 5 ml Q6H PRN ORAL cough 05/20/19 17:30 05/31/19 17:29 Quetiapine Fumarate (SEROqueL) 25 mg EVERY 6 HOURS PRN ORAL For Anxiety 05/20/19 18:00 07/01/19 23:14 Voriconazole (Vfend) 200 mg EVERY 12 HOURS ORAL 05/20/19 21:00 05/27/19 12:59 Allergies: Coded Allergies: No Known Allergies (Unverified , 10/24/16) ROS Limited/Unobtainable: No Constitutional: Reports: no symptoms HEENT: Reports: no symptoms Respiratory: Reports: shortness of breath Gastrointestinal/Abdominal: Reports: no symptoms Genitourinary: Reports: no symptoms Neurologic/Psychiatric: Reports: no symptoms Subjective 73 YO M admitted with COPD exacerbation. Now respiratory failure and pneumonia. Cover for Int Med-DR Giraldo. S/P endoscopy 05/06/19. Off BIPAP. Objective Last Vital Signs Date Time Temp Pulse Resp B/P (MAP) Pulse Ox O2 Delivery O2 Flow Rate FiO2 05/20/19 16:04 97.2 73 22 119/73 (88) 90 05/20/19 16:00 Nasal Cannula 3.0 05/20/19 09:30 32 Laboratory Tests Test 05/20/19 10:00 05/20/19 10:15 White Blood Count 8.4 K/UL (4.8-10.8) Red Blood Count 4.59 M/UL (4.70-6.10) L Hemoglobin 13.4 G/DL (14.2-18.0) L Hematocrit 41.8 % (42.0-52.0) L Mean Corpuscular Volume 91 FL (80-99) Mean Corpuscular Hemoglobin 29.2 PG (27.0-31.0) Mean Corpuscular Hemoglobin Concent 32.0 G/DL (32.0-36.0) Red Cell Distribution Width 13.9 % (11.6-14.8) Platelet Count 289 K/UL (150-450) Mean Platelet Volume 6.5 FL (6.5-10.1) Neutrophils (%) (Auto) % (45.0-75.0) Lymphocytes (%) (Auto) % (20.0-45.0) Monocytes (%) (Auto) % (1.0-10.0) Eosinophils (%) (Auto) % (0.0-3.0) Basophils (%) (Auto) % (0.0-2.0) Differential Total Cells Counted 100 Neutrophils % (Manual) 47 % (45-75) Lymphocytes % (Manual) 24 % (20-45) Monocytes % (Manual) 5 % (1-10) Eosinophils % (Manual) 24 % (0-3) H Basophils % (Manual) 0 % (0-2) Band Neutrophils 0 % (0-8) Platelet Estimate Adequate Platelet Morphology Normal Red Blood Cell Morphology Normal Sodium Level 145 MMOL/L (136-145) Potassium Level 4.1 MMOL/L (3.5-5.1) Chloride Level 106 MMOL/L (98-107) Carbon Dioxide Level 38 MMOL/L (21-32) H Anion Gap 1 mmol/L (5-15) L Blood Urea Nitrogen 14 mg/dL (7-18) Creatinine 1.0 MG/DL (0.55-1.30) Estimat Glomerular Filtration Rate > 60 mL/min (>60) Glucose Level 150 MG/DL (74-106) H Calcium Level 9.2 MG/DL (8.5-10.1) Stool Occult Blood Pending Microbiology Date/Time Source Procedure Growth Status 05/19/19 21:00 Sputum Induced Gram Stain - Final Resulted 05/19/19 21:00 Sputum Induced Sputum Culture Pending Resulted Intake and Output 05/19/19 05/20/19 19:00 07:00 Intake Total 360 ml 500 ml Output Total 900 ml 600 ml Balance -540 ml -100 ml Intake Oral 360 ml 500 ml Output Urine Total 900 ml 600 ml # Bowel Movements 2 Objective PHYSICAL EXAMINATION: GENERAL: The patient is awake, responsive, no acute distress. HEAD AND NECK: Pupils are equal and reactive to light. Extraocular muscles intact. Neck was supple. No JVD. LUNGS: Nasal canula;The patient has expiratory wheezes noted. Tachypneic. No rhonchi was noted. HEART: S1, S2. Irregular. No murmur. The patient has a pacemaker in the left-sided chest wall. ABDOMEN: Soft, nondistended, nontender. Mildly obese. EXTREMITIES: No cyanosis, clubbing, edema. NEUROLOGIC: Cranial nerves II through XII grossly normal. Motor is 5/5 in all extremities. Gait is intact. GENITOURINARY: It was noted the patient has a [place] catheter. RECTAL: Refused and deferred. PSYCHIATRIC: Mood and affect is intact. Assessment/Plan Assessment/Plan ASSESSMENT: 1. Acute hypoxemic respiratory failure, most likely secondary to acute COPD exacerbation. 2. Acute COPD exacerbation. 3. Pneumonia. 4. Sick sinus syndrome status post pacemaker. 5. Diabetes type 2. 6. Prostate cancer. 7. Hyperkalemia. 8. Insulin induced hyperglycemia. 9. Prostate enlargement. 10. Leukocytosis 11. RBBB 12 Gastritis PLAN: 1. Med/Surg 2. D/C Solu-Medrol IV Per Pulmonary consult=Dr. Obrien. 3. Endocrinology=Dr To. Monitor blood glucose level closely. 4. antibiotic= inhaled amikacin; S/P ertapenem and vanco. ID=Dr Villa 5. Code status is Full Code. DVT prophylaxis, he is on Eliquis. 6. S/P endoscopy 05/06/19=gastritis Idris Lugo MD May 20, 2019 18:58
[2019-05-20 20:00] VITALS: BP 140/93
[2019-05-20] MEDS ORDERED: Miralax 17gm pkt ORAL SCH (21:00)
[2019-05-20] MEDS: HYDROcodone/Acetamin 5/325 tab ORAL PRN (21:55)
--- NOTE | 2019-05-20 23:55 | Psych Consult Progress Note ---
Psychiatry Progress Note Psychiatry Progress Note Medications Current Medications Medications (Trade) Dose Ordered Sig/Dejon Route PRN Reason Start Time Stop Time Status Last Admin Dose Admin Acetaminophen (Tylenol) 650 mg Q4H PRN ORAL Mild Pain/Temp > 100.5 05/20/19 17:30 06/15/19 17:29 Acetaminophen/ Hydrocodone Bitart ([place] 5/325) 1 tab Q6H PRN ORAL Severe Pain (Pain Scale 7-10) 05/20/19 17:30 05/21/19 17:29 05/20/19 21:55 Albuterol/ Ipratropium (Albuterol/ Ipratropium) 3 ml Q4H PRN HHN Shortness of Breath 05/20/19 17:30 05/24/19 17:29 Amikacin Sulfate (Amikin) 500 mg Q12HRT INH 05/20/19 22:00 05/23/19 21:59 05/20/19 21:32 Apixaban (Eliquis) 5 mg BID ORAL 05/20/19 18:00 06/06/19 08:59 05/20/19 17:34 Clonidine HCl (Catapres Tab) 0.1 mg Q4H PRN ORAL sbp more than 160 05/20/19 17:30 05/31/19 17:29 Docusate Sodium (Colace) 100 mg TWICE A DAY ORAL 05/20/19 18:00 05/31/19 08:59 05/20/19 17:34 Escitalopram Oxalate (Lexapro) 10 mg DAILY ORAL 05/21/19 09:00 05/27/19 08:59 Levothyroxine Sodium (Synthroid) 75 mcg ACBREAKFAST ORAL 05/21/19 06:30 05/27/19 06:29 Nitroglycerin (Ntg) 0.4 mg Q5M X 3 DOSES PRN SL Prn Chest Pain 05/20/19 17:15 06/06/19 15:29 Ondansetron HCl (Zofran) 4 mg Q6H PRN IVP Nausea & Vomiting 05/20/19 19:00 05/31/19 12:59 Oxymetazoline HCl (Afrin Nasal [place]) 1 spray Q6H PRN NASAL nasal congestion 05/20/19 17:30 05/31/19 17:29 Pantoprazole (Protonix) 40 mg EVERY 12 HOURS ORAL 05/20/19 21:00 06/05/19 20:59 05/20/19 20:55 Polyethylene Glycol (Miralax) 17 gm BEDTIME ORAL 05/20/19 21:00 05/31/19 20:59 Promethazine HCl/ Codeine (Phenergan with Codeine) 5 ml Q6H PRN ORAL cough 05/20/19 17:30 05/31/19 17:29 Quetiapine Fumarate (SEROqueL) 25 mg EVERY 6 HOURS PRN ORAL For Anxiety 05/20/19 18:00 07/01/19 23:14 Voriconazole (Vfend) 200 mg EVERY 12 HOURS ORAL 05/20/19 21:00 05/27/19 12:59 05/20/19 20:55 Neurological/Psychiatric: Reports: anxiety, depressed, emotional problems Allergies: Coded Allergies: No Known Allergies (Unverified , 10/24/16) Objective Data Height (Feet): 6 Height (Inches): 0.00 Weight (Pounds): 214 General Appearance: WD/WN, no apparent distress, alert, alert oriented x3 Appearance: disheveled, inappropriate Behavior Mannerisms: poor eye contact Mental Status Exam - Affect: blunted Mental Status Exam - Mood: irritable, angry Speech: clear Mental Status Exam - Thought P: coherent, illogical Additional Comments: alert and oriented times self, place, situation. Mood is irritable. Affect is constricted. The patient is agitation. Affect is flat. Thought process is concrete. Thought content, no suicidal or homicidal ideation. Cognition is impaired. ASSESSMENT: Major depressive disorder. The patient has agitation. PLAN: 1. Continue Lexapro. 2. Seroquel p.r.n. for agitation. Assessment/Plan Status: stable, not improved, deteriorating Ottoniel Hillman MD May 20, 2019 23:55
[2019-05-21 07:19] LABS: HEMATOCRIT 39.1 % (42.0-52.0); HEMOGLOBIN 12.7 G/DL (14.2-18.0); MEAN CORPUSCULAR VOLUME 91 FL (80-99); PLATELET COUNT 271 K/UL (150-450); RED BLOOD COUNT 4.29 M/UL (4.70-6.10); RED CELL DISTRIBUTION WIDTH 13.9 % (11.6-14.8); WHITE BLOOD COUNT 8.4 K/UL (4.8-10.8)
[2019-05-21 08:00] VITALS: BP 116/72
[2019-05-21] MEDS: Docusate 100mg cap ORAL SCH ×2 (08:34→17:09)
[2019-05-21] MEDS: Eliquis 5mg tablet ORAL SCH ×2 (08:35→17:12)
[2019-05-21] MEDS: HYDROcodone/Acetamin 5/325 tab ORAL PRN ×2 (08:40→22:34)
[2019-05-21] MEDS: Amikacin for Inhalation 2ML INH SCH ×2 (09:26→23:41)
--- NOTE | 2019-05-21 09:41 | General Progress Note ---
Assessment/Plan Problem List: (1) Diabetes mellitus ICD Codes: E11.9 - Type 2 diabetes mellitus without complications SNOMED: 90474358 (2) Respiratory failure with hypoxia ICD Codes: J96.91 - Respiratory failure, unspecified with hypoxia SNOMED: 34104840853082974 (3) COPD exacerbation ICD Codes: J44.1 - Chronic obstructive pulmonary disease with (acute) exacerbation SNOMED: 502661784 (4) Hypothyroid ICD Codes: E03.9 - Hypothyroidism, unspecified SNOMED: 37742528 (5) Pacemaker ICD Codes: Z95.0 - Presence of cardiac pacemaker SNOMED: 282299314 (6) Prostate cancer ICD Codes: C61 - Malignant neoplasm of prostate SNOMED: 872086411 Status: stable, not improved, deteriorating Assessment/Plan: s/p EGD stable H&H needs out patient fu fo colonoscopy repeat stool ob pending good po intake fu pulm recs Subjective ROS Limited/Unobtainable: Yes Allergies: Coded Allergies: No Known Allergies (Unverified , 10/24/16) Objective Last 24 Hour Vital Signs Date Time Temp Pulse Resp B/P (MAP) Pulse Ox O2 Delivery O2 Flow Rate FiO2 05/21/19 09:26 80 18 95 Nasal Cannula 3.0 32 78 18 93 05/21/19 09:00 Nasal Cannula 3.0 05/21/19 08:00 98.6 75 20 116/72 (87) 96 05/21/19 07:31 91 Nasal Cannula 4.0 36 05/21/19 03:32 75 05/20/19 23:36 72 05/20/19 22:25 97.5 05/20/19 21:42 80 20 97 Nasal Cannula 3.0 32 05/20/19 21:32 79 20 93 Nasal Cannula 3.0 32 05/20/19 20:06 70 05/20/19 20:00 97.5 76 22 140/93 (109) 95 05/20/19 20:00 Nasal Cannula 3.0 05/20/19 19:24 93 Nasal Cannula 3.0 32 05/20/19 16:04 97.2 73 22 119/73 (88) 90 05/20/19 16:00 Nasal Cannula 3.0 05/20/19 15:24 71 05/20/19 12:00 Nasal Cannula 3.0 05/20/19 12:00 97.7 72 22 117/88 (98) 94 05/20/19 11:46 70 Intake and Output 05/20/19 05/21/19 19:00 07:00 Intake Total 240 ml Output Total 600 ml 625 ml Balance -360 ml -625 ml Intake Oral 240 ml Output Urine Total 600 ml 625 ml # Bowel Movements 5 3 Laboratory Tests 05/20/19 10:00: White Blood Count 8.4, Red Blood Count 4.59L, Hemoglobin 13.4L, Hematocrit 41.8L , Mean Corpuscular Volume 91, Mean Corpuscular Hemoglobin 29.2, Mean Corpuscular Hemoglobin Concent 32.0, Red Cell Distribution Width 13.9, Platelet Count 289, Mean Platelet Volume 6.5, Neutrophils (%) (Auto) , Lymphocytes (%) ( Auto) , Monocytes (%) (Auto) , Eosinophils (%) (Auto) , Basophils (%) (Auto) , Differential Total Cells Counted 100, Neutrophils % (Manual) 47, Lymphocytes % ( Manual) 24, Monocytes % (Manual) 5, Eosinophils % (Manual) 24H, Basophils % ( Manual) 0, Band Neutrophils 0, Platelet Estimate Adequate, Platelet Morphology Normal, Red Blood Cell Morphology Normal, Sodium Level 145, Potassium Level 4.1 , Chloride Level 106, Carbon Dioxide Level 38H, Anion Gap 1L, Blood Urea Nitrogen 14, Creatinine 1.0, Estimat Glomerular Filtration Rate > 60, Glucose Level 150H, Calcium Level 9.2 05/20/19 10:15: Stool Occult Blood [Pending] 05/20/19 19:10: Aspergillus galactomannan Antigen [Pending], Beta-(1,3)-D-Glucan [Pending] 05/21/19 05:53: White Blood Count 8.4, Red Blood Count 4.29L, Hemoglobin 12.7L, Hematocrit 39.1L , Mean Corpuscular Volume 91, Mean Corpuscular Hemoglobin 29.6, Mean Corpuscular Hemoglobin Concent 32.5, Red Cell Distribution Width 13.9, Platelet Count 271, Mean Platelet Volume 6.0L, Neutrophils (%) (Auto) , Lymphocytes (%) ( Auto) , Monocytes (%) (Auto) , Eosinophils (%) (Auto) , Basophils (%) (Auto) , Neutrophils % (Manual) [Pending], Lymphocytes % (Manual) [Pending], Platelet Estimate [Pending], Platelet Morphology [Pending] Height (Feet): 6 Height (Inches): 0.00 Weight (Pounds): 214 General Appearance: no apparent distress EENT: normal ENT inspection Neck: supple Cardiovascular: normal rate Respiratory/Chest: decreased breath sounds Abdomen: normal bowel sounds, non tender, soft Extremities: non-tender Christiano La MD May 21, 2019 09:41
--- NOTE | 2019-05-21 10:45 | Infectious Diseases Prog Note ---
Assessment/Plan Assessment/Plan Assessment: UCX : dale : colonizer COPD exacerbation , PNA, Sp -05/12 CXR: Bilateral interstitial disease, appearing similar to the previous exam,likely represents combination of senescent change and persistent or recurrent interstitial congestion -04/29 CXRLThere is bilateral interstitial congestion again demonstrated, appearing unchanged. No focal airspace consolidation. There is some atelectasis at the left lung base. -04/27 CXR: Borderline cardiomegaly. Questionable mild interstitial congestion , new or increased from previous study if real. -04/21 CTA chest:Somewhat limited exam, due to motion artifact. No definite evidence of pulmonary embolus or other acute thoracic vascular pathology. Borderline cardiomegaly. Diffuse bilateral pulmonary parenchymal groundglass opacity. Interspersed small bullae digestive this is due to COPD changes, but could also indicate a component of pulmonary edema. Considerable consolidation in the right lower lobe, likely pneumonia. Less extensive consolidation and atelectasis is seen at the left lung base. Pacemaker, degenerative spondylosis incidentally noted sp cx normal resp michael -04/19 CXR: Mild pulmonary vascular congestion -04/16 CXR: No acute disease -04/13 CXR: Suspected mild pulmonary vascular congestion. Correlate clinically -04/08 CXR: Mild pulmonary vascular congestion suspected Afebrile Leukocytosis,(pn steroids); improving Hyperglycemia Acute hypoxic respiratory failure ,on bipap PRN COPD CAD CHF prostate cancer s/p PPM former smoker Plan: - Merrem # 1 - Amikacin INH # 10 and Vfend # =2( as per Pul) - 05/05 Sp Ertapenem # 7/7 - 05/03 sp Vancomycin # 5 -04/28 SP Zosyn #8 -04/15 SP Levaquin #7 -04/08 SP Ceftriaxone x1, Azithromycin x1 -Monitor CBC/CMP, temperatures -aspiration precautions - Fungitell - Galctomannan Thank you for this consultation. Will continue to follow along with you. Subjective Allergies: Coded Allergies: No Known Allergies (Unverified , 10/24/16) Subjective afebrile cough + Objective Vital Signs Last 24 Hour Vital Signs Date Time Temp Pulse Resp B/P (MAP) Pulse Ox O2 Delivery O2 Flow Rate FiO2 05/21/19 09:26 80 18 95 Nasal Cannula 3.0 32 78 18 93 05/21/19 09:00 Nasal Cannula 3.0 05/21/19 08:00 108 05/21/19 08:00 98.6 75 20 116/72 (87) 96 05/21/19 07:31 91 Nasal Cannula 4.0 36 05/21/19 03:32 75 05/20/19 23:36 72 05/20/19 22:25 97.5 05/20/19 21:42 80 20 97 Nasal Cannula 3.0 32 05/20/19 21:32 79 20 93 Nasal Cannula 3.0 32 05/20/19 20:06 70 05/20/19 20:00 97.5 76 22 140/93 (109) 95 05/20/19 20:00 Nasal Cannula 3.0 05/20/19 19:24 93 Nasal Cannula 3.0 32 05/20/19 16:04 97.2 73 22 119/73 (88) 90 05/20/19 16:00 Nasal Cannula 3.0 05/20/19 15:24 71 05/20/19 12:00 Nasal Cannula 3.0 05/20/19 12:00 97.7 72 22 117/88 (98) 94 05/20/19 11:46 70 Height (Feet): 6 Height (Inches): 0.00 Weight (Pounds): 214 HEENT: anicteric Respiratory/Chest: no respiratory distress Cardiovascular: regular rhythm Abdomen: soft, non tender Microbiology Date/Time Source Procedure Growth Status 05/19/19 21:00 Sputum Induced Gram Stain - Final Resulted 05/19/19 21:00 Sputum Induced Sputum Culture - Preliminary NO GROWTH Resulted Laboratory Tests Test 05/20/19 19:10 05/21/19 05:53 Aspergillus galactomannan Antigen Pending Beta-(1,3)-D-Glucan Pending White Blood Count 8.4 K/UL (4.8-10.8) Red Blood Count 4.29 M/UL (4.70-6.10) L Hemoglobin 12.7 G/DL (14.2-18.0) L Hematocrit 39.1 % (42.0-52.0) L Mean Corpuscular Volume 91 FL (80-99) Mean Corpuscular Hemoglobin 29.6 PG (27.0-31.0) Mean Corpuscular Hemoglobin Concent 32.5 G/DL (32.0-36.0) Red Cell Distribution Width 13.9 % (11.6-14.8) Platelet Count 271 K/UL (150-450) Mean Platelet Volume 6.0 FL (6.5-10.1) L Neutrophils (%) (Auto) % (45.0-75.0) Lymphocytes (%) (Auto) % (20.0-45.0) Monocytes (%) (Auto) % (1.0-10.0) Eosinophils (%) (Auto) % (0.0-3.0) Basophils (%) (Auto) % (0.0-2.0) Differential Total Cells Counted 100 Neutrophils % (Manual) 40 % (45-75) L Lymphocytes % (Manual) 30 % (20-45) Monocytes % (Manual) 10 % (1-10) Eosinophils % (Manual) 20 % (0-3) H Basophils % (Manual) 0 % (0-2) Band Neutrophils 0 % (0-8) Platelet Estimate Adequate Platelet Morphology Normal Red Blood Cell Morphology Polychromasia 1+ Hypochromasia 1+ Current Medications Medications (Trade) Dose Ordered Sig/Dejon Route PRN Reason Start Time Stop Time Status Last Admin Dose Admin Acetaminophen (Tylenol) 650 mg Q4H PRN ORAL Mild Pain/Temp > 100.5 05/20/19 17:30 06/15/19 17:29 Acetaminophen/ Hydrocodone Bitart ([place] 5/325) 1 tab Q6H PRN ORAL Severe Pain (Pain Scale 7-10) 05/20/19 17:30 05/21/19 17:29 05/21/19 08:40 Albuterol/ Ipratropium (Albuterol/ Ipratropium) 3 ml Q4H PRN HHN Shortness of Breath 05/20/19 17:30 05/24/19 17:29 Amikacin Sulfate (Amikin) 500 mg Q12HRT INH 05/20/19 22:00 05/23/19 21:59 05/21/19 09:26 Apixaban (Eliquis) 5 mg BID ORAL 05/20/19 18:00 06/06/19 08:59 05/21/19 08:35 Clonidine HCl (Catapres Tab) 0.1 mg Q4H PRN ORAL sbp more than 160 05/20/19 17:30 05/31/19 17:29 Docusate Sodium (Colace) 100 mg TWICE A DAY ORAL 05/20/19 18:00 05/31/19 08:59 05/20/19 17:34 Escitalopram Oxalate (Lexapro) 10 mg DAILY ORAL 05/21/19 09:00 05/27/19 08:59 05/21/19 08:34 Levothyroxine Sodium (Synthroid) 75 mcg ACBREAKFAST ORAL 05/21/19 06:30 05/27/19 06:29 Nitroglycerin (Ntg) 0.4 mg Q5M X 3 DOSES PRN SL Prn Chest Pain 05/20/19 17:15 06/06/19 15:29 Ondansetron HCl (Zofran) 4 mg Q6H PRN IVP Nausea & Vomiting 05/20/19 19:00 05/31/19 12:59 Oxymetazoline HCl (Afrin Nasal [place]) 1 spray Q6H PRN NASAL nasal congestion 05/20/19 17:30 05/31/19 17:29 Pantoprazole (Protonix) 40 mg EVERY 12 HOURS ORAL 05/20/19 21:00 06/05/19 20:59 05/21/19 08:34 Polyethylene Glycol (Miralax) 17 gm BEDTIME ORAL 05/20/19 21:00 05/31/19 20:59 Promethazine HCl/ Codeine (Phenergan with Codeine) 5 ml Q6H PRN ORAL cough 05/20/19 17:30 05/31/19 17:29 Quetiapine Fumarate (SEROqueL) 25 mg EVERY 6 HOURS PRN ORAL For Anxiety 05/20/19 18:00 07/01/19 23:14 Voriconazole (Vfend) 200 mg EVERY 12 HOURS ORAL 05/20/19 21:00 05/27/19 12:59 05/21/19 08:33 Robert Canela MD May 21, 2019 10:45
--- NOTE | 2019-05-21 11:32 | Pulmonology Progress Note ---
Assessment/Plan Problems: (1) Interstitial pneumonia (2) Respiratory failure with hypoxia (3) COPD exacerbation (4) Nosocomial pneumonia (5) Pacemaker (6) Anemia (7) Prostate cancer (8) Diabetes mellitus Assessment/Plan CT chest reviewed, COPD. 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 [place] Virus was negative Subjective ROS Limited/Unobtainable: No Constitutional: Reports: no symptoms HEENT: Repors: no symptoms Respiratory: Reports: no symptoms Allergies: Coded Allergies: No Known Allergies (Unverified , 10/24/16) Objective Last 24 Hour Vital Signs Date Time Temp Pulse Resp B/P (MAP) Pulse Ox O2 Delivery O2 Flow Rate FiO2 05/21/19 09:26 80 18 95 Nasal Cannula 3.0 32 78 18 93 05/21/19 09:00 Nasal Cannula 3.0 05/21/19 08:00 108 05/21/19 08:00 98.6 75 20 116/72 (87) 96 05/21/19 07:31 91 Nasal Cannula 4.0 36 05/21/19 03:32 75 05/20/19 23:36 72 05/20/19 22:25 97.5 05/20/19 21:42 80 20 97 Nasal Cannula 3.0 32 05/20/19 21:32 79 20 93 Nasal Cannula 3.0 32 05/20/19 20:06 70 05/20/19 20:00 97.5 76 22 140/93 (109) 95 05/20/19 20:00 Nasal Cannula 3.0 05/20/19 19:24 93 Nasal Cannula 3.0 32 05/20/19 16:04 97.2 73 22 119/73 (88) 90 05/20/19 16:00 Nasal Cannula 3.0 05/20/19 15:24 71 05/20/19 12:00 Nasal Cannula 3.0 05/20/19 12:00 97.7 72 22 117/88 (98) 94 05/20/19 11:46 70 Intake and Output 05/20/19 05/21/19 19:00 07:00 Intake Total 240 ml Output Total 600 ml 625 ml Balance -360 ml -625 ml Intake Oral 240 ml Output Urine Total 600 ml 625 ml # Bowel Movements 5 3 General Appearance: WD/WN HEENT: normocephalic, atraumatic Respiratory/Chest: chest wall non-tender, lungs clear Cardiovascular: normal peripheral pulses, normal rate Abdomen: normal bowel sounds, no organomegaly Genitourinary: normal external genitalia Skin: no rash Neurologic/Psychiatric: 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 grossly normal Microbiology Date/Time Source Procedure Growth Status 05/19/19 21:00 Sputum Induced Gram Stain - Final Resulted 05/19/19 21:00 Sputum Induced Sputum Culture - Preliminary NO GROWTH Resulted Laboratory Tests 05/20/19 19:10: Aspergillus galactomannan Antigen [Pending], Beta-(1,3)-D-Glucan [Pending] 05/21/19 05:53: White Blood Count 8.4, Red Blood Count 4.29L, Hemoglobin 12.7L, Hematocrit 39.1L , Mean Corpuscular Volume 91, Mean Corpuscular Hemoglobin 29.6, Mean Corpuscular Hemoglobin Concent 32.5, Red Cell Distribution Width 13.9, Platelet Count 271, Mean Platelet Volume 6.0L, Neutrophils (%) (Auto) , Lymphocytes (%) ( Auto) , Monocytes (%) (Auto) , Eosinophils (%) (Auto) , Basophils (%) (Auto) , Differential Total Cells Counted 100, Neutrophils % (Manual) 40L, Lymphocytes % (Manual) 30, Monocytes % (Manual) 10, Eosinophils % (Manual) 20H, Basophils % ( Manual) 0, Band Neutrophils 0, Platelet Estimate Adequate, Platelet Morphology Normal, Red Blood Cell Morphology , Polychromasia 1+, Hypochromasia 1+ Current Medications Medications (Trade) Dose Ordered Sig/Dejon Route PRN Reason Start Time Stop Time Status Last Admin Dose Admin Acetaminophen (Tylenol) 650 mg Q4H PRN ORAL Mild Pain/Temp > 100.5 05/20/19 17:30 06/15/19 17:29 Acetaminophen/ Hydrocodone Bitart ([place] 5/325) 1 tab Q6H PRN ORAL Severe Pain (Pain Scale 7-10) 05/20/19 17:30 05/21/19 17:29 05/21/19 08:40 Albuterol/ Ipratropium (Albuterol/ Ipratropium) 3 ml Q4H PRN HHN Shortness of Breath 05/20/19 17:30 05/24/19 17:29 Amikacin Sulfate (Amikin) 500 mg Q12HRT INH 05/20/19 22:00 05/23/19 21:59 05/21/19 09:26 Apixaban (Eliquis) 5 mg BID ORAL 05/20/19 18:00 06/06/19 08:59 05/21/19 08:35 Clonidine HCl (Catapres Tab) 0.1 mg Q4H PRN ORAL sbp more than 160 05/20/19 17:30 05/31/19 17:29 Docusate Sodium (Colace) 100 mg TWICE A DAY ORAL 05/20/19 18:00 05/31/19 08:59 05/20/19 17:34 Escitalopram Oxalate (Lexapro) 10 mg DAILY ORAL 05/21/19 09:00 05/27/19 08:59 05/21/19 08:34 Levothyroxine Sodium (Synthroid) 75 mcg ACBREAKFAST ORAL 05/21/19 06:30 05/27/19 06:29 Meropenem 1 gm/ Sodium Chloride 55 ml @ 110 mls/hr Q8HR IVPB 05/21/19 12:00 05/26/19 11:59 Nitroglycerin (Ntg) 0.4 mg Q5M X 3 DOSES PRN SL Prn Chest Pain 05/20/19 17:15 06/06/19 15:29 Ondansetron HCl (Zofran) 4 mg Q6H PRN IVP Nausea & Vomiting 05/20/19 19:00 05/31/19 12:59 Oxymetazoline HCl (Afrin Nasal [place]) 1 spray Q6H PRN NASAL nasal congestion 05/20/19 17:30 05/31/19 17:29 Pantoprazole (Protonix) 40 mg EVERY 12 HOURS ORAL 05/20/19 21:00 06/05/19 20:59 05/21/19 08:34 Polyethylene Glycol (Miralax) 17 gm BEDTIME ORAL 05/20/19 21:00 05/31/19 20:59 Promethazine HCl/ Codeine (Phenergan with Codeine) 5 ml Q6H PRN ORAL cough 05/20/19 17:30 05/31/19 17:29 Quetiapine Fumarate (SEROqueL) 25 mg EVERY 6 HOURS PRN ORAL For Anxiety 05/20/19 18:00 07/01/19 23:14 Voriconazole (Vfend) 200 mg EVERY 12 HOURS ORAL 05/20/19 21:00 05/27/19 12:59 05/21/19 08:33 Goldie Obrien MD May 21, 2019 11:31
[2019-05-21 12:00] VITALS: BP 123/83
[2019-05-21] MEDS ORDERED: Meropenem 1 GM in NS 55 ML IVPB SCH (12:00)
[2019-05-21 16:48] VITALS: BP 116/73
--- NOTE | 2019-05-21 17:26 | Internal Med Progress Note ---
Subjective Physician Name Jewel Giraldo Attending Physician Jewel Giraldo MD Current Medications Medications (Trade) Dose Ordered Sig/Dejon Route PRN Reason Start Time Stop Time Status Last Admin Dose Admin Acetaminophen (Tylenol) 650 mg Q4H PRN ORAL Mild Pain/Temp > 100.5 05/20/19 17:30 06/15/19 17:29 Acetaminophen/ Hydrocodone Bitart ([place] 5/325) 1 tab Q6H PRN ORAL Severe Pain (Pain Scale 7-10) 05/20/19 17:30 05/21/19 17:29 05/21/19 08:40 Albuterol/ Ipratropium (Albuterol/ Ipratropium) 3 ml Q4H PRN HHN Shortness of Breath 05/20/19 17:30 05/24/19 17:29 Amikacin Sulfate (Amikin) 500 mg Q12HRT INH 05/20/19 22:00 05/23/19 21:59 05/21/19 09:26 Apixaban (Eliquis) 5 mg BID ORAL 05/20/19 18:00 06/06/19 08:59 05/21/19 17:12 Clonidine HCl (Catapres Tab) 0.1 mg Q4H PRN ORAL sbp more than 160 05/20/19 17:30 05/31/19 17:29 Docusate Sodium (Colace) 100 mg TWICE A DAY ORAL 05/20/19 18:00 05/31/19 08:59 05/20/19 17:34 Escitalopram Oxalate (Lexapro) 10 mg DAILY ORAL 05/21/19 09:00 05/27/19 08:59 05/21/19 08:34 Levothyroxine Sodium (Synthroid) 75 mcg ACBREAKFAST ORAL 05/21/19 06:30 05/27/19 06:29 Meropenem 1 gm/ Sodium Chloride 55 ml @ 110 mls/hr Q8HR IVPB 05/21/19 12:00 05/26/19 11:59 05/21/19 13:39 Nitroglycerin (Ntg) 0.4 mg Q5M X 3 DOSES PRN SL Prn Chest Pain 05/20/19 17:15 06/06/19 15:29 Ondansetron HCl (Zofran) 4 mg Q6H PRN IVP Nausea & Vomiting 05/20/19 19:00 05/31/19 12:59 Oxymetazoline HCl (Afrin Nasal [place]) 1 spray Q6H PRN NASAL nasal congestion 05/20/19 17:30 05/31/19 17:29 Pantoprazole (Protonix) 40 mg EVERY 12 HOURS ORAL 05/20/19 21:00 06/05/19 20:59 05/21/19 08:34 Polyethylene Glycol (Miralax) 17 gm BEDTIME ORAL 05/20/19 21:00 05/31/19 20:59 Promethazine HCl/ Codeine (Phenergan with Codeine) 5 ml Q6H PRN ORAL cough 05/20/19 17:30 05/31/19 17:29 Quetiapine Fumarate (SEROqueL) 25 mg EVERY 6 HOURS PRN ORAL For Anxiety 05/20/19 18:00 07/01/19 23:14 Voriconazole (Vfend) 200 mg EVERY 12 HOURS ORAL 05/20/19 21:00 05/27/19 12:59 05/21/19 08:33 Allergies: Coded Allergies: No Known Allergies (Unverified , 10/24/16) Subjective Awake, alert, responsive, No CP, less SOB and wheezing,WBC: 8.4 Objective Last Vital Signs Date Time Temp Pulse Resp B/P (MAP) Pulse Ox O2 Delivery O2 Flow Rate FiO2 05/21/19 16:48 96.6 80 18 116/73 (87) 96 05/21/19 09:26 Nasal Cannula 3.0 32 Laboratory Tests Test 05/20/19 19:10 05/21/19 05:53 Aspergillus galactomannan Antigen Pending Beta-(1,3)-D-Glucan Pending White Blood Count 8.4 K/UL (4.8-10.8) Red Blood Count 4.29 M/UL (4.70-6.10) L Hemoglobin 12.7 G/DL (14.2-18.0) L Hematocrit 39.1 % (42.0-52.0) L Mean Corpuscular Volume 91 FL (80-99) Mean Corpuscular Hemoglobin 29.6 PG (27.0-31.0) Mean Corpuscular Hemoglobin Concent 32.5 G/DL (32.0-36.0) Red Cell Distribution Width 13.9 % (11.6-14.8) Platelet Count 271 K/UL (150-450) Mean Platelet Volume 6.0 FL (6.5-10.1) L Neutrophils (%) (Auto) % (45.0-75.0) Lymphocytes (%) (Auto) % (20.0-45.0) Monocytes (%) (Auto) % (1.0-10.0) Eosinophils (%) (Auto) % (0.0-3.0) Basophils (%) (Auto) % (0.0-2.0) Differential Total Cells Counted 100 Neutrophils % (Manual) 40 % (45-75) L Lymphocytes % (Manual) 30 % (20-45) Monocytes % (Manual) 10 % (1-10) Eosinophils % (Manual) 20 % (0-3) H Basophils % (Manual) 0 % (0-2) Band Neutrophils 0 % (0-8) Platelet Estimate Adequate Platelet Morphology Normal Red Blood Cell Morphology Polychromasia 1+ Hypochromasia 1+ Microbiology Date/Time Source Procedure Growth Status 05/19/19 21:00 Sputum Induced Gram Stain - Final Resulted 05/19/19 21:00 Sputum Induced Sputum Culture - Preliminary NO GROWTH Resulted Intake and Output 05/20/19 05/21/19 19:00 07:00 Intake Total 240 ml Output Total 600 ml 625 ml Balance -360 ml -625 ml Intake Oral 240 ml Output Urine Total 600 ml 625 ml # Bowel Movements 5 3 Objective GENERAL: Awake, responsive, no acute distress. HEAD AND NECK: Pupils are equal and reactive to light. Extraocular muscles intact. Neck was supple. No JVD. LUNGS: Decrease air entry at bases. + Expiratory wheezes, No rales. HEART: S1, S2. Irregular. No murmur. pacemaker in the left-sided chest wall. ABDOMEN: Soft, nondistended, nontender. Morbid obesely. EXTREMITIES: No cyanosis, clubbing, edema. NEUROLOGIC: Cranial nerves II through XII grossly normal. Motor is 5/5 in all extremities. Gait is intact. RECTAL: Refused and deferred. PSYCHIATRIC: Mood and affect is intact. Assessment/Plan Assessment/Plan ASSESSMENT: 1. Acute hypoxemic respiratory failure, most likely secondary to acute COPD exacerbation. 2. Acute COPD exacerbation. 3. Pneumonia. 4. Sick sinus syndrome status post pacemaker. 5. Diabetes type 2. 6. Prostate cancer. 7. Hyperkalemia. 8. Insulin induced hyperglycemia. 9. Prostate enlargement. PLAN: broad-spectrum antibiotic : Amikacin, meropenem, voriconazole Code status is Full Code. DVT prophylaxis: Eliquis. monitor cultures and laboratory. Follow up with Dr. Goldie Obrien, Pulmonary Critical Care consultation. Jewel Giraldo MD May 21, 2019 17:26
[2019-05-21] MEDS ORDERED: Docusate 100mg cap ORAL SCH (18:00)
[2019-05-21] MEDS ORDERED: Nitroglycerin Subl 0.4mg tab SL PRN (18:14)
[2019-05-21] MEDS ORDERED: Promethazine/Codeine 5ml UD ORAL PRN (18:15)
[2019-05-21] MEDS ORDERED: Oxymetazoline 0.05% Na Spray 30ml NASAL PRN (18:17)
[2019-05-21 20:00] VITALS: BP 130/79
[2019-05-21] MEDS: Miralax 17gm pkt ORAL SCH (21:00)
[2019-05-21] MEDS ORDERED: valACYclovir HCL 500mg tab ORAL SCH (21:00)
[2019-05-21] MEDS: Meropenem 1 GM in NS 55 ML IVPB SCH (22:33)
[2019-05-22] VITALS: BP 157/106
--- NOTE | 2019-05-22 02:30 | Progress Note ---
DATE: 05/21/2019 SUBJECTIVE: The patient is insisting that he is not improving. He would like to stay in the hospital. Poor insight. Not able to be engaged during the evaluation. MENTAL STATUS EXAMINATION: The patient is alert and oriented times self, place, and situation. Mood is neutral. Affect is constricted, congruent with mood. Thought process is concrete. Thought content, no suicidal or homicidal ideation. Cognition is intact. Insight and judgment are poor. ASSESSMENT: 1. Depressive disorder. 2. Antisocial personality. PLAN: 1. We will continue current medication. 3. Provide the patient with reality orientation. Ottoniel Hillman M.D. DR: ELENA JOB#: [id number] CC: JACKELIN
[2019-05-22] MEDS: Meropenem 1 GM in NS 55 ML IVPB SCH ×3 (05:57→22:03)
[2019-05-22 06:00] VITALS: BP 125/83
[2019-05-22] MEDS: HYDROcodone/Acetamin 5/325 tab ORAL PRN ×2 (06:07→17:26)
[2019-05-22 06:55] LABS: HEMATOCRIT 38.5 % (42.0-52.0); HEMOGLOBIN 12.5 G/DL (14.2-18.0); MEAN CORPUSCULAR VOLUME 90 FL (80-99); PLATELET COUNT 274 K/UL (150-450); RED BLOOD COUNT 4.25 M/UL (4.70-6.10); RED CELL DISTRIBUTION WIDTH 13.7 % (11.6-14.8); WHITE BLOOD COUNT 9.1 K/UL (4.8-10.8)
--- NOTE | 2019-05-22 06:57 | Infectious Diseases Prog Note ---
Assessment/Plan Assessment/Plan Assessment: UCX : dale : colonizer COPD exacerbation , PNA, Sp -05/12 CXR: Bilateral interstitial disease, appearing similar to the previous exam,likely represents combination of senescent change and persistent or recurrent interstitial congestion -04/29 CXRLThere is bilateral interstitial congestion again demonstrated, appearing unchanged. No focal airspace consolidation. There is some atelectasis at the left lung base. -04/27 CXR: Borderline cardiomegaly. Questionable mild interstitial congestion , new or increased from previous study if real. -04/21 CTA chest:Somewhat limited exam, due to motion artifact. No definite evidence of pulmonary embolus or other acute thoracic vascular pathology. Borderline cardiomegaly. Diffuse bilateral pulmonary parenchymal groundglass opacity. Interspersed small bullae digestive this is due to COPD changes, but could also indicate a component of pulmonary edema. Considerable consolidation in the right lower lobe, likely pneumonia. Less extensive consolidation and atelectasis is seen at the left lung base. Pacemaker, degenerative spondylosis incidentally noted sp cx normal resp michael -04/19 CXR: Mild pulmonary vascular congestion -04/16 CXR: No acute disease -04/13 CXR: Suspected mild pulmonary vascular congestion. Correlate clinically -04/08 CXR: Mild pulmonary vascular congestion suspected Afebrile Leukocytosis,(pn steroids); improving Hyperglycemia Acute hypoxic respiratory failure ,on bipap PRN COPD CAD CHF prostate cancer s/p PPM former smoker Plan: - Merrem # 2 - Amikacin INH # 11 and Vfend # 3( as per Pul) - 05/05 Sp Ertapenem # 7/7 - 05/03 sp Vancomycin # 5 -04/28 SP Zosyn #8 -04/15 SP Levaquin #7 -04/08 SP Ceftriaxone x1, Azithromycin x1 -Monitor CBC/CMP, temperatures -aspiration precautions - Fungitell - Galctomannan discussed with RN Thank you for this consultation. Will continue to follow along with you. Subjective Allergies: Coded Allergies: No Known Allergies (Unverified , 10/24/16) Subjective Afebrile 3-4L NC Pt upset about incident with nurse Objective Vital Signs Last 24 Hour Vital Signs Date Time Temp Pulse Resp B/P (MAP) Pulse Ox O2 Delivery O2 Flow Rate FiO2 05/22/19 05:30 81 15 95 30 05/22/19 03:25 81 14 96 30 05/22/19 00:30 78 16 94 30 05/22/19 00:00 97.9 87 20 157/106 (123) 97 05/21/19 23:00 74 18 99 Nasal Cannula 4.0 36 70 18 98 05/21/19 21:00 Nasal Cannula 3.0 05/21/19 20:00 97.6 76 18 130/79 (96) 80 05/21/19 19:00 95 Nasal Cannula 4.0 36 05/21/19 16:48 96.6 80 18 116/73 (87) 96 05/21/19 12:00 96.7 73 20 123/83 (96) 100 05/21/19 11:44 71 05/21/19 09:26 80 18 95 Nasal Cannula 3.0 32 78 18 93 05/21/19 09:00 Nasal Cannula 3.0 05/21/19 08:00 108 05/21/19 08:00 98.6 75 20 116/72 (87) 96 05/21/19 07:31 91 Nasal Cannula 4.0 36 Height (Feet): 6 Height (Inches): 0.00 Weight (Pounds): 214 Objective General Appearance: no distress HEENT: normocephalic, atraumatic Neck: supple Respiratory/Chest: chest wall non-tender, rhonchi - left, rhonchi - right Cardiovascular/Chest: no murmurs Extremities: normal range of motion Microbiology Date/Time Source Procedure Growth Status 05/19/19 21:00 Sputum Induced Gram Stain - Final Resulted 05/19/19 21:00 Sputum Induced Sputum Culture - Preliminary NO GROWTH Resulted Laboratory Tests Test 05/22/19 05:00 White Blood Count Pending Red Blood Count Pending Hemoglobin Pending Hematocrit Pending Mean Corpuscular Volume Pending Mean Corpuscular Hemoglobin Pending Mean Corpuscular Hemoglobin Concent Pending Red Cell Distribution Width Pending Platelet Count Pending Mean Platelet Volume Pending Neutrophils (%) (Auto) Pending Lymphocytes (%) (Auto) Pending Monocytes (%) (Auto) Pending Eosinophils (%) (Auto) Pending Basophils (%) (Auto) Pending Sodium Level Pending Potassium Level Pending Chloride Level Pending Carbon Dioxide Level Pending Blood Urea Nitrogen Pending Creatinine Pending Estimat Glomerular Filtration Rate Pending Glucose Level Pending Calcium Level Pending Current Medications Medications (Trade) Dose Ordered Sig/Dejon Route PRN Reason Start Time Stop Time Status Last Admin Dose Admin Acetaminophen (Tylenol) 650 mg Q4H PRN ORAL Mild Pain/Temp > 100.5 05/21/19 18:14 06/15/19 18:13 Acetaminophen/ Hydrocodone Bitart ([place] 5/325) 1 tab Q6H PRN ORAL Severe Pain (Pain Scale 7-10) 05/21/19 22:15 05/28/19 22:14 05/22/19 06:07 Albuterol/ Ipratropium (Albuterol/ Ipratropium) 3 ml Q4H PRN HHN Shortness of Breath 05/21/19 18:14 05/24/19 18:13 Amikacin Sulfate (Amikin) 500 mg Q12HRT INH 05/21/19 22:00 05/23/19 21:59 05/21/19 23:41 Apixaban (Eliquis) 5 mg BID ORAL 05/22/19 09:00 06/21/19 08:59 Clonidine HCl (Catapres Tab) 0.1 mg Q4H PRN ORAL sbp more than 160 05/21/19 18:14 05/31/19 18:13 Docusate Sodium (Colace) 100 mg TWICE A DAY ORAL 05/22/19 09:00 06/21/19 08:59 Escitalopram Oxalate (Lexapro) 10 mg DAILY ORAL 05/22/19 09:00 05/27/19 08:59 Levothyroxine Sodium (Synthroid) 75 mcg ACBREAKFAST ORAL 05/22/19 06:30 05/27/19 06:29 05/22/19 06:06 Meropenem 1 gm/ Sodium Chloride 55 ml @ 110 mls/hr Q8HR IVPB 05/21/19 22:00 05/26/19 11:59 05/22/19 05:57 Nitroglycerin (Ntg) 0.4 mg Q5M X 3 DOSES PRN SL Prn Chest Pain 05/21/19 18:14 06/06/19 18:13 Ondansetron HCl (Zofran) 4 mg Q6H PRN IVP Nausea & Vomiting 05/21/19 18:15 05/31/19 18:14 Oxymetazoline HCl (Afrin Nasal [place]) 1 spray Q6H PRN NASAL nasal congestion 05/21/19 18:17 05/31/19 18:16 Pantoprazole (Protonix) 40 mg EVERY 12 HOURS ORAL 05/21/19 21:00 06/05/19 20:59 05/21/19 21:14 Polyethylene Glycol (Miralax) 17 gm BEDTIME ORAL 05/21/19 21:00 06/20/19 20:59 Promethazine HCl/ Codeine (Phenergan with Codeine) 5 ml Q6H PRN ORAL cough 05/21/19 18:15 05/31/19 18:14 Quetiapine Fumarate (SEROqueL) 25 mg EVERY 6 HOURS PRN ORAL For Anxiety 05/22/19 00:00 07/06/19 00:00 Voriconazole (Vfend) 200 mg EVERY 12 HOURS ORAL 05/21/19 21:00 05/27/19 12:59 05/21/19 21:14 Ailyn Beckham MD May 22, 2019 06:57
[2019-05-22 07:15] LABS: ANION GAP 4 mmol/L (5-15); BLOOD UREA NITROGEN 15 mg/dL (7-18); CALCIUM 8.9 MG/DL (8.5-10.1); CARBON DIOXIDE 35 MMOL/L (21-32); CHLORIDE 105 MMOL/L (98-107); CREATININE 0.8 MG/DL (0.55-1.30); SODIUM 144 MMOL/L (136-145)
[2019-05-22 08:00] VITALS: BP 120/85
[2019-05-22] MEDS: Eliquis 5mg tablet ORAL SCH ×2 (09:26→17:26)
[2019-05-22] MEDS: Docusate 100mg cap ORAL SCH ×2 (09:26→17:26)
[2019-05-22] MEDS: Amikacin for Inhalation 2ML INH SCH ×2 (11:16→22:43)
[2019-05-22 12:00] VITALS: BP 122/85
[2019-05-22 16:00] VITALS: BP 147/88
--- NOTE | 2019-05-22 17:10 | Internal Med Progress Note ---
Subjective Date of Service: May 22, 2019 Physician Name BrittneyIdris Attending Physician Jewel Giraldo MD Current Medications Medications (Trade) Dose Ordered Sig/Dejon Route PRN Reason Start Time Stop Time Status Last Admin Dose Admin Acetaminophen (Tylenol) 650 mg Q4H PRN ORAL Mild Pain/Temp > 100.5 05/21/19 18:14 06/15/19 18:13 05/22/19 09:41 Acetaminophen/ Hydrocodone Bitart ([place] 5/325) 1 tab Q6H PRN ORAL Severe Pain (Pain Scale 7-10) 05/21/19 22:15 05/28/19 22:14 05/22/19 06:07 Albuterol/ Ipratropium (Albuterol/ Ipratropium) 3 ml Q4H PRN HHN Shortness of Breath 05/21/19 18:14 05/24/19 18:13 Amikacin Sulfate (Amikin) 500 mg Q12HRT INH 05/21/19 22:00 05/23/19 21:59 05/22/19 11:16 Apixaban (Eliquis) 5 mg BID ORAL 05/22/19 09:00 06/21/19 08:59 05/22/19 09:26 Clonidine HCl (Catapres Tab) 0.1 mg Q4H PRN ORAL sbp more than 160 05/21/19 18:14 05/31/19 18:13 Docusate Sodium (Colace) 100 mg TWICE A DAY ORAL 05/22/19 09:00 06/21/19 08:59 05/22/19 09:26 Escitalopram Oxalate (Lexapro) 10 mg DAILY ORAL 05/22/19 09:00 05/27/19 08:59 05/22/19 09:27 Levothyroxine Sodium (Synthroid) 75 mcg ACBREAKFAST ORAL 05/22/19 06:30 05/27/19 06:29 05/22/19 06:06 Meropenem 1 gm/ Sodium Chloride 55 ml @ 110 mls/hr Q8HR IVPB 05/21/19 22:00 05/26/19 11:59 05/22/19 13:52 Nitroglycerin (Ntg) 0.4 mg Q5M X 3 DOSES PRN SL Prn Chest Pain 05/21/19 18:14 3/29/20 18:13 Ondansetron HCl (Zofran) 4 mg Q6H PRN IVP Nausea & Vomiting 05/21/19 18:15 05/31/19 18:14 Oxymetazoline HCl (Afrin Nasal [place]) 1 spray Q6H PRN NASAL nasal congestion 05/21/19 18:17 05/31/19 18:16 Pantoprazole (Protonix) 40 mg EVERY 12 HOURS ORAL 05/21/19 21:00 06/05/19 20:59 05/22/19 09:27 Polyethylene Glycol (Miralax) 17 gm BEDTIME ORAL 05/21/19 21:00 06/20/19 20:59 Promethazine HCl/ Codeine (Phenergan with Codeine) 5 ml Q6H PRN ORAL cough 05/21/19 18:15 05/31/19 18:14 Quetiapine Fumarate (SEROqueL) 25 mg EVERY 6 HOURS PRN ORAL For Anxiety 05/22/19 00:00 07/06/19 00:00 Voriconazole (Vfend) 200 mg EVERY 12 HOURS ORAL 05/21/19 21:00 05/27/19 12:59 05/22/19 09:26 Allergies: Coded Allergies: No Known Allergies (Unverified , 10/24/16) ROS Limited/Unobtainable: No Constitutional: Reports: no symptoms HEENT: Reports: no symptoms Cardiovascular: Reports: no symptoms Respiratory: Reports: no symptoms Gastrointestinal/Abdominal: Reports: no symptoms Genitourinary: Reports: no symptoms Neurologic/Psychiatric: Reports: no symptoms Subjective 73 YO M admitted with COPD exacerbation. Now respiratory failure and pneumonia. Cover for Mounika Mac-DR Giraldo. S/P endoscopy 05/06/19. Off BIPAP. Objective Last Vital Signs Date Time Temp Pulse Resp B/P (MAP) Pulse Ox O2 Delivery O2 Flow Rate FiO2 05/22/19 12:00 98.4 70 20 122/85 (97) 97 05/22/19 11:16 Nasal Cannula 4.0 36 Laboratory Tests Test 05/22/19 05:00 White Blood Count 9.1 K/UL (4.8-10.8) Red Blood Count 4.25 M/UL (4.70-6.10) L Hemoglobin 12.5 G/DL (14.2-18.0) L Hematocrit 38.5 % (42.0-52.0) L Mean Corpuscular Volume 90 FL (80-99) Mean Corpuscular Hemoglobin 29.4 PG (27.0-31.0) Mean Corpuscular Hemoglobin Concent 32.5 G/DL (32.0-36.0) Red Cell Distribution Width 13.7 % (11.6-14.8) Platelet Count 274 K/UL (150-450) Mean Platelet Volume 5.9 FL (6.5-10.1) L Neutrophils (%) (Auto) % (45.0-75.0) Lymphocytes (%) (Auto) % (20.0-45.0) Monocytes (%) (Auto) % (1.0-10.0) Eosinophils (%) (Auto) % (0.0-3.0) Basophils (%) (Auto) % (0.0-2.0) Differential Total Cells Counted 100 Neutrophils % (Manual) 44 % (45-75) L Lymphocytes % (Manual) 23 % (20-45) Monocytes % (Manual) 3 % (1-10) Eosinophils % (Manual) 30 % (0-3) H Basophils % (Manual) 0 % (0-2) Band Neutrophils 0 % (0-8) Platelet Estimate Adequate Platelet Morphology Normal Red Blood Cell Morphology Normal Hypochromasia 1+ Sodium Level 144 MMOL/L (136-145) Potassium Level 4.0 MMOL/L (3.5-5.1) Chloride Level 105 MMOL/L (98-107) Carbon Dioxide Level 35 MMOL/L (21-32) H Anion Gap 4 mmol/L (5-15) L Blood Urea Nitrogen 15 mg/dL (7-18) Creatinine 0.8 MG/DL (0.55-1.30) Estimat Glomerular Filtration Rate > 60 mL/min (>60) Glucose Level 124 MG/DL (74-106) H Calcium Level 8.9 MG/DL (8.5-10.1) Microbiology Date/Time Source Procedure Growth Status 05/19/19 21:00 Sputum Induced Gram Stain - Final Complete 05/19/19 21:00 Sputum Induced Sputum Culture - Final NORMAL UPPER RESPIRATORY ARCELIA PRESENT Complete Intake and Output 05/21/19 05/22/19 19:00 07:00 Intake Total 350 ml Output Total 600 ml 650 ml Balance -600 ml -300 ml Intake Oral 350 ml Output Urine Total 600 ml 650 ml # Bowel Movements 2 Objective PHYSICAL EXAMINATION: GENERAL: The patient is awake, responsive, no acute distress. HEAD AND NECK: Pupils are equal and reactive to light. Extraocular muscles intact. Neck was supple. No JVD. LUNGS: Nasal canula;The patient has expiratory wheezes noted. Tachypneic. No rhonchi was noted. HEART: S1, S2. Irregular. No murmur. The patient has a pacemaker in the left-sided chest wall. ABDOMEN: Soft, nondistended, nontender. Mildly obese. EXTREMITIES: No cyanosis, clubbing, edema. NEUROLOGIC: Cranial nerves II through XII grossly normal. Motor is 5/5 in all extremities. Gait is intact. GENITOURINARY: It was noted the patient has a Montgomery catheter. RECTAL: Refused and deferred. PSYCHIATRIC: Mood and affect is intact. Assessment/Plan Assessment/Plan ASSESSMENT: 1. Acute hypoxemic respiratory failure, most likely secondary to acute COPD exacerbation. 2. Acute COPD exacerbation. 3. Pneumonia. 4. Sick sinus syndrome status post pacemaker. 5. Diabetes type 2. 6. Prostate cancer. 7. Hyperkalemia. 8. Insulin induced hyperglycemia. 9. Prostate enlargement. 10. Leukocytosis 11. RBBB 12 Gastritis PLAN: 1. Med/Surg 2. D/C Solu-Medrol IV Per Pulmonary consult=Dr. Obrien. 3. Endocrinology=Dr To. Monitor blood glucose level closely. 4. antibiotic= inhaled amikacin; S/P ertapenem and vanco. ID=Dr Villa 5. Code status is Full Code. DVT prophylaxis, he is on Eliquis. 6. S/P endoscopy 05/06/19=gastritis Idris Lugo MD May 22, 2019 17:10
[2019-05-22 20:00] VITALS: BP 133/78
[2019-05-22] MEDS: Miralax 17gm pkt ORAL SCH (21:00)
[2019-05-22] MEDS: Albuterol/Ipratropium 3ml neb HHN PRN (22:29)
[2019-05-23] VITALS: BP 127/74
[2019-05-23 04:00] VITALS: BP 120/77
[2019-05-23] MEDS: Albuterol/Ipratropium 3ml neb HHN PRN ×2 (04:17→18:08)
[2019-05-23] MEDS: Meropenem 1 GM in NS 55 ML IVPB SCH ×3 (05:53→21:09)
[2019-05-23 07:26] LABS: HEMATOCRIT 38.7 % (42.0-52.0); HEMOGLOBIN 12.6 G/DL (14.2-18.0); MEAN CORPUSCULAR VOLUME 91 FL (80-99); PLATELET COUNT 236 K/UL (150-450); RED BLOOD COUNT 4.26 M/UL (4.70-6.10); WHITE BLOOD COUNT 8.9 K/UL (4.8-10.8)
[2019-05-23 07:31] LABS: ANION GAP 4 mmol/L (5-15); BLOOD UREA NITROGEN 16 mg/dL (7-18); CALCIUM 9.2 MG/DL (8.5-10.1); CARBON DIOXIDE 35 MMOL/L (21-32); CHLORIDE 105 MMOL/L (98-107); CREATININE 0.9 MG/DL (0.55-1.30); SODIUM 144 MMOL/L (136-145)
[2019-05-23 08:00] VITALS: BP 139/72
[2019-05-23] MEDS: Docusate 100mg cap ORAL SCH ×2 (09:00→18:00)
[2019-05-23] MEDS: Eliquis 5mg tablet ORAL SCH ×2 (10:04→18:33)
[2019-05-23] MEDS: HYDROcodone/Acetamin 5/325 tab ORAL PRN ×2 (10:07→21:13)
[2019-05-23 11:29] VITALS: BP 127/73
[2019-05-23] MEDS: Amikacin for Inhalation 2ML INH SCH (13:59)
[2019-05-23 15:34] VITALS: BP 119/77
--- NOTE | 2019-05-23 16:53 | Internal Med Progress Note ---
Subjective Date of Service: May 23, 2019 Physician Name BrittneyIdris Attending Physician Jewel Giraldo MD Current Medications Medications (Trade) Dose Ordered Sig/Dejon Route PRN Reason Start Time Stop Time Status Last Admin Dose Admin Acetaminophen (Tylenol) 650 mg Q4H PRN ORAL Mild Pain/Temp > 100.5 05/21/19 18:14 06/15/19 18:13 05/22/19 09:41 Acetaminophen/ Hydrocodone Bitart ([place] 5/325) 1 tab Q6H PRN ORAL Severe Pain (Pain Scale 7-10) 05/21/19 22:15 05/28/19 22:14 05/23/19 10:07 Albuterol/ Ipratropium (Albuterol/ Ipratropium) 3 ml Q4H PRN HHN Shortness of Breath 05/21/19 18:14 05/24/19 18:13 05/23/19 04:17 Amikacin Sulfate (Amikin) 500 mg Q12HRT INH 05/21/19 22:00 05/23/19 21:59 05/23/19 13:59 Apixaban (Eliquis) 5 mg BID ORAL 05/22/19 09:00 06/21/19 08:59 05/23/19 10:04 Clonidine HCl (Catapres Tab) 0.1 mg Q4H PRN ORAL sbp more than 160 05/21/19 18:14 05/31/19 18:13 Docusate Sodium (Colace) 100 mg TWICE A DAY ORAL 05/22/19 09:00 06/21/19 08:59 05/22/19 17:26 Escitalopram Oxalate (Lexapro) 10 mg DAILY ORAL 05/22/19 09:00 06/22/19 08:59 05/23/19 10:03 Levothyroxine Sodium (Synthroid) 75 mcg ACBREAKFAST ORAL 05/22/19 06:30 05/27/19 06:29 05/23/19 05:55 Meropenem 1 gm/ Sodium Chloride 55 ml @ 110 mls/hr Q8HR IVPB 05/21/19 22:00 05/26/19 11:59 05/23/19 14:23 Nitroglycerin (Ntg) 0.4 mg Q5M X 3 DOSES PRN SL Prn Chest Pain 3/13/20 18:14 06/06/19 18:13 Ondansetron HCl (Zofran) 4 mg Q6H PRN IVP Nausea & Vomiting 05/21/19 18:15 05/31/19 18:14 Oxymetazoline HCl (Afrin Nasal [place]) 1 spray Q6H PRN NASAL nasal congestion 05/21/19 18:17 05/31/19 18:16 Pantoprazole (Protonix) 40 mg EVERY 12 HOURS ORAL 05/21/19 21:00 06/05/19 20:59 05/23/19 10:03 Polyethylene Glycol (Miralax) 17 gm BEDTIME ORAL 05/21/19 21:00 06/20/19 20:59 Promethazine HCl/ Codeine (Phenergan with Codeine) 5 ml Q6H PRN ORAL cough 05/21/19 18:15 05/31/19 18:14 Quetiapine Fumarate (SEROqueL) 25 mg EVERY 6 HOURS PRN ORAL For Anxiety 05/22/19 00:00 07/06/19 00:00 Voriconazole (Vfend) 200 mg EVERY 12 HOURS ORAL 05/21/19 21:00 05/27/19 12:59 05/23/19 10:03 Allergies: Coded Allergies: No Known Allergies (Unverified , 10/24/16) ROS Limited/Unobtainable: No Constitutional: Reports: no symptoms HEENT: Reports: no symptoms Cardiovascular: Reports: no symptoms Respiratory: Reports: cough, shortness of breath, wheezing Gastrointestinal/Abdominal: Reports: no symptoms Genitourinary: Reports: no symptoms Neurologic/Psychiatric: Reports: no symptoms Subjective 73 YO M admitted with COPD exacerbation. Now respiratory failure and pneumonia. Cover for Int Med-DR Giraldo. S/P endoscopy 05/06/19. Off BIPAP. Objective Last Vital Signs Date Time Temp Pulse Resp B/P (MAP) Pulse Ox O2 Delivery O2 Flow Rate FiO2 05/23/19 15:34 97.1 66 20 119/77 (91) 94 05/23/19 14:09 Nasal Cannula 4.0 36 Laboratory Tests Test 05/23/19 05:00 White Blood Count 8.9 K/UL (4.8-10.8) Red Blood Count 4.26 M/UL (4.70-6.10) L Hemoglobin 12.6 G/DL (14.2-18.0) L Hematocrit 38.7 % (42.0-52.0) L Mean Corpuscular Volume 91 FL (80-99) Mean Corpuscular Hemoglobin 29.6 PG (27.0-31.0) Mean Corpuscular Hemoglobin Concent 32.6 G/DL (32.0-36.0) Red Cell Distribution Width 14.0 % (11.6-14.8) Platelet Count 236 K/UL (150-450) Mean Platelet Volume 5.7 FL (6.5-10.1) L Neutrophils (%) (Auto) % (45.0-75.0) Lymphocytes (%) (Auto) % (20.0-45.0) Monocytes (%) (Auto) % (1.0-10.0) Eosinophils (%) (Auto) % (0.0-3.0) Basophils (%) (Auto) % (0.0-2.0) Differential Total Cells Counted 100 Neutrophils % (Manual) 44 % (45-75) L Lymphocytes % (Manual) 22 % (20-45) Monocytes % (Manual) 4 % (1-10) Eosinophils % (Manual) 30 % (0-3) H Basophils % (Manual) 0 % (0-2) Band Neutrophils 0 % (0-8) Platelet Estimate Adequate Platelet Morphology Normal Anisocytosis 1+ Sodium Level 144 MMOL/L (136-145) Potassium Level 4.0 MMOL/L (3.5-5.1) Chloride Level 105 MMOL/L (98-107) Carbon Dioxide Level 35 MMOL/L (21-32) H Anion Gap 4 mmol/L (5-15) L Blood Urea Nitrogen 16 mg/dL (7-18) Creatinine 0.9 MG/DL (0.55-1.30) Estimat Glomerular Filtration Rate > 60 mL/min (>60) Glucose Level 180 MG/DL (74-106) H Calcium Level 9.2 MG/DL (8.5-10.1) Microbiology Date/Time Source Procedure Growth Status 05/21/19 13:30 Sputum Gram Stain - Final Complete 05/21/19 13:30 Sputum Sputum Culture - Final NORMAL UPPER RESPIRATORY ARCELIA PRESENT Complete Intake and Output 05/22/19 05/23/19 19:00 07:00 Intake Total 750 ml Output Total 500 ml 650 ml Balance 250 ml -650 ml Intake Oral 750 ml Output Urine Total 500 ml 650 ml # Bowel Movements 1 Objective PHYSICAL EXAMINATION: GENERAL: The patient is awake, responsive, no acute distress. HEAD AND NECK: Pupils are equal and reactive to light. Extraocular muscles intact. Neck was supple. No JVD. LUNGS: Nasal canula;The patient has expiratory wheezes noted. Tachypneic. No rhonchi was noted. HEART: S1, S2. Irregular. No murmur. The patient has a pacemaker in the left-sided chest wall. ABDOMEN: Soft, nondistended, nontender. Mildly obese. EXTREMITIES: No cyanosis, clubbing, edema. NEUROLOGIC: Cranial nerves II through XII grossly normal. Motor is 5/5 in all extremities. Gait is intact. GENITOURINARY: It was noted the patient has a Montgomery catheter. RECTAL: Refused and deferred. PSYCHIATRIC: Mood and affect is intact. Assessment/Plan Assessment/Plan ASSESSMENT: 1. Acute hypoxemic respiratory failure, most likely secondary to acute COPD exacerbation. 2. Acute COPD exacerbation. 3. Pneumonia. 4. Sick sinus syndrome status post pacemaker. 5. Diabetes type 2. 6. Prostate cancer. 7. Hyperkalemia. 8. Insulin induced hyperglycemia. 9. Prostate enlargement. 10. Leukocytosis 11. RBBB 12 Gastritis PLAN: 1. Med/Surg 2. D/C Solu-Medrol IV Per Pulmonary consult=Dr. Obrien. 3. Endocrinology=Dr To. Monitor blood glucose level closely. 4. antibiotic= inhaled amikacin; S/P ertapenem and vanco. ID=Dr Vlila 5. Code status is Full Code. DVT prophylaxis, he is on Eliquis. 6. S/P endoscopy 05/06/19=gastritis Idris Lugo MD May 23, 2019 16:53
[2019-05-23 20:00] VITALS: BP 122/82
[2019-05-23] MEDS: Miralax 17gm pkt ORAL SCH (21:00)
[2019-05-24] MEDS: Albuterol/Ipratropium 3ml neb HHN PRN (02:54)
[2019-05-24] MEDS: HYDROcodone/Acetamin 5/325 tab ORAL PRN ×2 (03:40→21:13)
[2019-05-24 03:52] VITALS: BP 130/86
[2019-05-24] MEDS: Meropenem 1 GM in NS 55 ML IVPB SCH ×3 (05:31→21:02)
[2019-05-24 08:00] VITALS: BP_SYST 130; BP_DIAS 70; BP_DIAS 86
[2019-05-24] MEDS: Docusate 100mg cap ORAL SCH ×2 (08:34→17:11)
[2019-05-24] MEDS: Eliquis 5mg tablet ORAL SCH ×2 (08:34→17:11)
--- NOTE | 2019-05-24 09:33 | General Progress Note ---
Assessment/Plan Problem List: (1) Diabetes mellitus ICD Codes: E11.9 - Type 2 diabetes mellitus without complications SNOMED: 02386215 (2) Respiratory failure with hypoxia ICD Codes: J96.91 - Respiratory failure, unspecified with hypoxia SNOMED: 96862491209686827 (3) COPD exacerbation ICD Codes: J44.1 - Chronic obstructive pulmonary disease with (acute) exacerbation SNOMED: 113054170 (4) Hypothyroid ICD Codes: E03.9 - Hypothyroidism, unspecified SNOMED: 56442336 (5) Pacemaker ICD Codes: Z95.0 - Presence of cardiac pacemaker SNOMED: 969659409 (6) Prostate cancer ICD Codes: C61 - Malignant neoplasm of prostate SNOMED: 569561665 Status: stable, not improved, deteriorating Assessment/Plan: s/p EGD stable H&H needs out patient fu fo colonoscopy repeat stool ob pending good po intake fu pulm recs Subjective ROS Limited/Unobtainable: No Allergies: Coded Allergies: No Known Allergies (Unverified , 10/24/16) Objective Last 24 Hour Vital Signs Date Time Temp Pulse Resp B/P (MAP) Pulse Ox O2 Delivery O2 Flow Rate FiO2 05/24/19 08:00 98.1 78 19 130/70 (90) 93 05/24/19 07:34 93 Nasal Cannula 4.0 36 05/24/19 07:32 80 18 98 Nasal Cannula 3.0 32 05/24/19 04:10 98.1 05/24/19 03:52 98.1 78 19 130/86 (101) 93 05/24/19 03:04 83 20 95 Nasal Cannula 4.0 36 05/24/19 02:54 85 20 93 Nasal Cannula 4.0 36 05/23/19 21:00 Nasal Cannula 3.0 05/23/19 20:00 98.1 73 20 122/82 (95) 94 05/23/19 19:40 95 Nasal Cannula 4.0 36 05/23/19 19:40 74 20 95 Nasal Cannula 4.0 36 05/23/19 18:18 77 18 97 Nasal Cannula 4.0 36 80 20 94 05/23/19 15:34 97.1 66 20 119/77 (91) 94 05/23/19 14:09 75 18 97 Nasal Cannula 4.0 36 80 18 95 05/23/19 11:29 98.0 63 20 127/73 (91) 94 Intake and Output 05/23/19 05/24/19 19:00 07:00 Intake Total 1440 ml 720 ml Output Total 1150 ml 650 ml Balance 290 ml 70 ml Intake Oral 1440 ml 500 ml IV Total 220 ml Output Urine Total 1150 ml 650 ml # Bowel Movements 2 1 Height (Feet): 6 Height (Inches): 0.00 Weight (Pounds): 214 General Appearance: alert EENT: normal ENT inspection Neck: supple Cardiovascular: normal rate Respiratory/Chest: decreased breath sounds Abdomen: normal bowel sounds, non tender, soft Extremities: non-tender Christiano La MD May 24, 2019 09:33
--- NOTE | 2019-05-24 11:27 | Infectious Diseases Prog Note ---
Assessment/Plan Assessment/Plan Assessment: UCX : dale : colonizer COPD exacerbation , PNA, Sp -05/12 CXR: Bilateral interstitial disease, appearing similar to the previous exam,likely represents combination of senescent change and persistent or recurrent interstitial congestion -04/29 CXRLThere is bilateral interstitial congestion again demonstrated, appearing unchanged. No focal airspace consolidation. There is some atelectasis at the left lung base. -04/27 CXR: Borderline cardiomegaly. Questionable mild interstitial congestion , new or increased from previous study if real. -04/21 CTA chest:Somewhat limited exam, due to motion artifact. No definite evidence of pulmonary embolus or other acute thoracic vascular pathology. Borderline cardiomegaly. Diffuse bilateral pulmonary parenchymal groundglass opacity. Interspersed small bullae digestive this is due to COPD changes, but could also indicate a component of pulmonary edema. Considerable consolidation in the right lower lobe, likely pneumonia. Less extensive consolidation and atelectasis is seen at the left lung base. Pacemaker, degenerative spondylosis incidentally noted sp cx normal resp michael -04/19 CXR: Mild pulmonary vascular congestion -04/16 CXR: No acute disease -04/13 CXR: Suspected mild pulmonary vascular congestion. Correlate clinically -04/08 CXR: Mild pulmonary vascular congestion suspected Afebrile Leukocytosis,(pn steroids); improving HIV neg Hyperglycemia Acute hypoxic respiratory failure ,on bipap PRN COPD CAD CHF prostate cancer s/p PPM former smoker Plan: - Merrem # 3 - Vfend # 5( as per Pul) - 05/22 Sp Amikacin INH # 12 - 05/05 Sp Ertapenem # /7 - 05/03 sp Vancomycin # 5 -04/28 SP Zosyn #8 -04/15 SP Levaquin #7 -04/08 SP Ceftriaxone x1, Azithromycin x1 -Monitor CBC/CMP, temperatures -aspiration precautions - Fungitell - Galctomannan Thank you for this consultation. Will continue to follow along with you. Subjective Allergies: Coded Allergies: No Known Allergies (Unverified , 10/24/16) Subjective no acute events Objective Vital Signs Last 24 Hour Vital Signs Date Time Temp Pulse Resp B/P (MAP) Pulse Ox O2 Delivery O2 Flow Rate FiO2 05/24/19 09:00 Nasal Cannula 3.0 05/24/19 08:00 98.1 78 19 130/70 (90) 93 05/24/19 07:34 93 Nasal Cannula 4.0 36 05/24/19 07:32 80 18 98 Nasal Cannula 3.0 32 05/24/19 04:10 98.1 05/24/19 03:52 98.1 78 19 130/86 (101) 93 05/24/19 03:04 83 20 95 Nasal Cannula 4.0 36 05/24/19 02:54 85 20 93 Nasal Cannula 4.0 36 05/23/19 21:00 Nasal Cannula 3.0 05/23/19 20:00 98.1 73 20 122/82 (95) 94 05/23/19 19:40 95 Nasal Cannula 4.0 36 05/23/19 19:40 74 20 95 Nasal Cannula 4.0 36 05/23/19 18:18 77 18 97 Nasal Cannula 4.0 36 80 20 94 05/23/19 15:34 97.1 66 20 119/77 (91) 94 05/23/19 14:09 75 18 97 Nasal Cannula 4.0 36 80 18 95 05/23/19 11:29 98.0 63 20 127/73 (91) 94 Height (Feet): 6 Height (Inches): 0.00 Weight (Pounds): 214 HEENT: anicteric Respiratory/Chest: no accessory muscle use Cardiovascular: regularly irregular Abdomen: non distended Microbiology Date/Time Source Procedure Growth Status 05/21/19 13:30 Sputum Gram Stain - Final Complete 05/21/19 13:30 Sputum Sputum Culture - Final NORMAL UPPER RESPIRATORY MICHAEL PRESENT Complete Current Medications Medications (Trade) Dose Ordered Sig/Dejon Route PRN Reason Start Time Stop Time Status Last Admin Dose Admin Acetaminophen (Tylenol) 650 mg Q4H PRN ORAL Mild Pain/Temp > 100.5 05/21/19 18:14 06/15/19 18:13 05/22/19 09:41 Acetaminophen/ Hydrocodone Bitart ([place] 5/325) 1 tab Q6H PRN ORAL Severe Pain (Pain Scale 7-10) 05/21/19 22:15 05/28/19 22:14 05/24/19 03:40 Albuterol/ Ipratropium (Albuterol/ Ipratropium) 3 ml Q4H PRN HHN Shortness of Breath 05/21/19 18:14 3/16/20 18:13 05/24/19 02:54 Apixaban (Eliquis) 5 mg BID ORAL 05/22/19 09:00 06/21/19 08:59 05/24/19 08:34 Clonidine HCl (Catapres Tab) 0.1 mg Q4H PRN ORAL sbp more than 160 05/21/19 18:14 05/31/19 18:13 Docusate Sodium (Colace) 100 mg TWICE A DAY ORAL 05/22/19 09:00 06/21/19 08:59 05/24/19 08:34 Escitalopram Oxalate (Lexapro) 10 mg DAILY ORAL 05/22/19 09:00 06/22/19 08:59 05/24/19 08:34 Levothyroxine Sodium (Synthroid) 75 mcg ACBREAKFAST ORAL 05/22/19 06:30 05/27/19 06:29 05/24/19 05:31 Meropenem 1 gm/ Sodium Chloride 55 ml @ 110 mls/hr Q8HR IVPB 05/21/19 22:00 05/26/19 11:59 05/24/19 05:31 Nitroglycerin (Ntg) 0.4 mg Q5M X 3 DOSES PRN SL Prn Chest Pain 05/21/19 18:14 06/06/19 18:13 Ondansetron HCl (Zofran) 4 mg Q6H PRN IVP Nausea & Vomiting 05/21/19 18:15 05/31/19 18:14 Oxymetazoline HCl (Afrin Nasal [place]) 1 spray Q6H PRN NASAL nasal congestion 05/21/19 18:17 05/31/19 18:16 Pantoprazole (Protonix) 40 mg EVERY 12 HOURS ORAL 05/21/19 21:00 06/05/19 20:59 05/24/19 08:34 Polyethylene Glycol (Miralax) 17 gm BEDTIME ORAL 05/21/19 21:00 06/20/19 20:59 Promethazine HCl/ Codeine (Phenergan with Codeine) 5 ml Q6H PRN ORAL cough 05/21/19 18:15 05/31/19 18:14 Quetiapine Fumarate (SEROqueL) 25 mg EVERY 6 HOURS PRN ORAL For Anxiety 05/22/19 00:00 07/06/19 00:00 Voriconazole (Vfend) 200 mg EVERY 12 HOURS ORAL 05/21/19 21:00 05/27/19 12:59 05/24/19 08:33 Robert Canela MD May 24, 2019 11:27
[2019-05-24 12:00] VITALS: BP 132/70
--- NOTE | 2019-05-24 13:32 | Internal Med Progress Note ---
Subjective Date of Service: May 24, 2019 Physician Name BrittneyIdris Attending Physician Jewel Giraldo MD Current Medications Medications (Trade) Dose Ordered Sig/Dejon Route PRN Reason Start Time Stop Time Status Last Admin Dose Admin Acetaminophen (Tylenol) 650 mg Q4H PRN ORAL Mild Pain/Temp > 100.5 05/21/19 18:14 06/15/19 18:13 05/22/19 09:41 Acetaminophen/ Hydrocodone Bitart ([place] 5/325) 1 tab Q6H PRN ORAL Severe Pain (Pain Scale 7-10) 05/21/19 22:15 05/28/19 22:14 05/24/19 03:40 Albuterol/ Ipratropium (Albuterol/ Ipratropium) 3 ml Q4H PRN HHN Shortness of Breath 05/21/19 18:14 05/24/19 18:13 05/24/19 02:54 Apixaban (Eliquis) 5 mg BID ORAL 05/22/19 09:00 06/21/19 08:59 05/24/19 08:34 Clonidine HCl (Catapres Tab) 0.1 mg Q4H PRN ORAL sbp more than 160 05/21/19 18:14 05/31/19 18:13 Docusate Sodium (Colace) 100 mg TWICE A DAY ORAL 05/22/19 09:00 06/21/19 08:59 05/24/19 08:34 Escitalopram Oxalate (Lexapro) 10 mg DAILY ORAL 05/22/19 09:00 06/22/19 08:59 05/24/19 08:34 Levothyroxine Sodium (Synthroid) 75 mcg ACBREAKFAST ORAL 05/22/19 06:30 05/27/19 06:29 05/24/19 05:31 Meropenem 1 gm/ Sodium Chloride 55 ml @ 110 mls/hr Q8HR IVPB 05/21/19 22:00 05/26/19 11:59 05/24/19 13:09 Nitroglycerin (Ntg) 0.4 mg Q5M X 3 DOSES PRN SL Prn Chest Pain 05/21/19 18:14 06/06/19 18:13 Ondansetron HCl (Zofran) 4 mg Q6H PRN IVP Nausea & Vomiting 05/21/19 18:15 05/31/19 18:14 Oxymetazoline HCl (Afrin Nasal [place]) 1 spray Q6H PRN NASAL nasal congestion 05/21/19 18:17 05/31/19 18:16 Pantoprazole (Protonix) 40 mg EVERY 12 HOURS ORAL 05/21/19 21:00 06/05/19 20:59 05/24/19 08:34 Polyethylene Glycol (Miralax) 17 gm BEDTIME ORAL 05/21/19 21:00 06/20/19 20:59 Promethazine HCl/ Codeine (Phenergan with Codeine) 5 ml Q6H PRN ORAL cough 05/21/19 18:15 05/31/19 18:14 Quetiapine Fumarate (SEROqueL) 25 mg EVERY 6 HOURS PRN ORAL For Anxiety 05/22/19 00:00 07/06/19 00:00 Voriconazole (Vfend) 200 mg EVERY 12 HOURS ORAL 05/21/19 21:00 05/27/19 12:59 05/24/19 08:33 Allergies: Coded Allergies: No Known Allergies (Unverified , 10/24/16) ROS Limited/Unobtainable: No Constitutional: Reports: no symptoms HEENT: Reports: no symptoms Cardiovascular: Reports: no symptoms Respiratory: Reports: shortness of breath Gastrointestinal/Abdominal: Reports: no symptoms Genitourinary: Reports: no symptoms Neurologic/Psychiatric: Reports: no symptoms Subjective 73 YO M admitted with COPD exacerbation. Now respiratory failure and pneumonia. Cover for Int Bubba-DR Giraldo. S/P endoscopy 05/06/19. Off BIPAP. Objective Last Vital Signs Date Time Temp Pulse Resp B/P (MAP) Pulse Ox O2 Delivery O2 Flow Rate FiO2 05/24/19 12:00 98.1 78 19 132/70 (90) 93 05/24/19 09:00 Nasal Cannula 3.0 05/24/19 07:34 36 Intake and Output 05/23/19 05/24/19 19:00 07:00 Intake Total 1440 ml 720 ml Output Total 1150 ml 650 ml Balance 290 ml 70 ml Intake Oral 1440 ml 500 ml IV Total 220 ml Output Urine Total 1150 ml 650 ml # Bowel Movements 2 1 Objective PHYSICAL EXAMINATION: GENERAL: The patient is awake, responsive, no acute distress. HEAD AND NECK: Pupils are equal and reactive to light. Extraocular muscles intact. Neck was supple. No JVD. LUNGS: Nasal canula;The patient has expiratory wheezes noted. Tachypneic. No rhonchi was noted. HEART: S1, S2. Irregular. No murmur. The patient has a pacemaker in the left-sided chest wall. ABDOMEN: Soft, nondistended, nontender. Mildly obese. EXTREMITIES: No cyanosis, clubbing, edema. NEUROLOGIC: Cranial nerves II through XII grossly normal. Motor is 5/5 in all extremities. Gait is intact. GENITOURINARY: It was noted the patient has a Montgomery catheter. RECTAL: Refused and deferred. PSYCHIATRIC: Mood and affect is intact. Assessment/Plan Assessment/Plan ASSESSMENT: 1. Acute hypoxemic respiratory failure, most likely secondary to acute COPD exacerbation. 2. Acute COPD exacerbation. 3. Pneumonia. 4. Sick sinus syndrome status post pacemaker. 5. Diabetes type 2. 6. Prostate cancer. 7. Hyperkalemia. 8. Insulin induced hyperglycemia. 9. Prostate enlargement. 10. Leukocytosis 11. RBBB 12 Gastritis PLAN: 1. Med/Surg 2. D/C Solu-Medrol IV Per Pulmonary consult=Dr. Obrien. 3. Endocrinology=Dr To. Monitor blood glucose level closely. 4. antibiotic= inhaled amikacin; S/P ertapenem and vanco. ID=Dr Villa 5. Code status is Full Code. DVT prophylaxis, he is on Eliquis. 6. S/P endoscopy 05/06/19=gastritis Idris Lugo MD May 24, 2019 13:32
--- NOTE | 2019-05-24 14:11 | Pulmonology Progress Note ---
Assessment/Plan Problems: (1) Interstitial pneumonia (2) Respiratory failure with hypoxia (3) COPD exacerbation (4) Nosocomial pneumonia (5) Pacemaker (6) Anemia (7) Prostate cancer (8) Diabetes mellitus Assessment/Plan CT chest reviewed, COPD. 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 [place] Virus was negative Subjective ROS Limited/Unobtainable: No Constitutional: Reports: no symptoms HEENT: Repors: no symptoms Allergies: Coded Allergies: No Known Allergies (Unverified , 10/24/16) Objective Last 24 Hour Vital Signs Date Time Temp Pulse Resp B/P (MAP) Pulse Ox O2 Delivery O2 Flow Rate FiO2 05/24/19 12:00 98.1 78 19 132/70 (90) 93 05/24/19 09:00 Nasal Cannula 3.0 05/24/19 08:00 98.1 78 19 130/70 (90) 93 05/24/19 07:34 93 Nasal Cannula 4.0 36 05/24/19 07:32 80 18 98 Nasal Cannula 3.0 32 05/24/19 04:10 98.1 05/24/19 03:52 98.1 78 19 130/86 (101) 93 05/24/19 03:04 83 20 95 Nasal Cannula 4.0 36 05/24/19 02:54 85 20 93 Nasal Cannula 4.0 36 05/23/19 21:00 Nasal Cannula 3.0 05/23/19 20:00 98.1 73 20 122/82 (95) 94 05/23/19 19:40 95 Nasal Cannula 4.0 36 05/23/19 19:40 74 20 95 Nasal Cannula 4.0 36 05/23/19 18:18 77 18 97 Nasal Cannula 4.0 36 80 20 94 05/23/19 15:34 97.1 66 20 119/77 (91) 94 Intake and Output 05/23/19 05/24/19 19:00 07:00 Intake Total 1440 ml 720 ml Output Total 1150 ml 650 ml Balance 290 ml 70 ml Intake Oral 1440 ml 500 ml IV Total 220 ml Output Urine Total 1150 ml 650 ml # Bowel Movements 2 1 General Appearance: WD/WN, no acute distress HEENT: atraumatic Respiratory/Chest: expiratory wheezing Cardiovascular: normal peripheral pulses, normal rate Abdomen: normal bowel sounds, soft, non tender Skin: no rash Current Medications Medications (Trade) Dose Ordered Sig/Dejon Route PRN Reason Start Time Stop Time Status Last Admin Dose Admin Acetaminophen (Tylenol) 650 mg Q4H PRN ORAL Mild Pain/Temp > 100.5 05/21/19 18:14 06/15/19 18:13 05/22/19 09:41 Acetaminophen/ Hydrocodone Bitart ([place] 5/325) 1 tab Q6H PRN ORAL Severe Pain (Pain Scale 7-10) 05/21/19 22:15 05/28/19 22:14 05/24/19 03:40 Albuterol/ Ipratropium (Albuterol/ Ipratropium) 3 ml Q4H PRN HHN Shortness of Breath 05/21/19 18:14 05/24/19 18:13 05/24/19 02:54 Apixaban (Eliquis) 5 mg BID ORAL 05/22/19 09:00 06/21/19 08:59 05/24/19 08:34 Clonidine HCl (Catapres Tab) 0.1 mg Q4H PRN ORAL sbp more than 160 05/21/19 18:14 05/31/19 18:13 Docusate Sodium (Colace) 100 mg TWICE A DAY ORAL 05/22/19 09:00 06/21/19 08:59 05/24/19 08:34 Escitalopram Oxalate (Lexapro) 10 mg DAILY ORAL 05/22/19 09:00 06/22/19 08:59 05/24/19 08:34 Levothyroxine Sodium (Synthroid) 75 mcg ACBREAKFAST ORAL 05/22/19 06:30 05/27/19 06:29 05/24/19 05:31 Meropenem 1 gm/ Sodium Chloride 55 ml @ 110 mls/hr Q8HR IVPB 05/21/19 22:00 05/26/19 11:59 05/24/19 13:09 Nitroglycerin (Ntg) 0.4 mg Q5M X 3 DOSES PRN SL Prn Chest Pain 05/21/19 18:14 06/06/19 18:13 Ondansetron HCl (Zofran) 4 mg Q6H PRN IVP Nausea & Vomiting 05/21/19 18:15 05/31/19 18:14 Oxymetazoline HCl (Afrin Nasal [place]) 1 spray Q6H PRN NASAL nasal congestion 05/21/19 18:17 05/31/19 18:16 Pantoprazole (Protonix) 40 mg EVERY 12 HOURS ORAL 05/21/19 21:00 06/05/19 20:59 05/24/19 08:34 Polyethylene Glycol (Miralax) 17 gm BEDTIME ORAL 05/21/19 21:00 06/20/19 20:59 Promethazine HCl/ Codeine (Phenergan with Codeine) 5 ml Q6H PRN ORAL cough 05/21/19 18:15 05/31/19 18:14 Quetiapine Fumarate (SEROqueL) 25 mg EVERY 6 HOURS PRN ORAL For Anxiety 05/22/19 00:00 07/06/19 00:00 Voriconazole (Vfend) 200 mg EVERY 12 HOURS ORAL 05/21/19 21:00 05/27/19 12:59 05/24/19 08:33 Goldie Obrien MD May 24, 2019 14:11
[2019-05-24 16:00] VITALS: BP 126/70
[2019-05-24 20:15] VITALS: BP 128/71
[2019-05-24] MEDS: Miralax 17gm pkt ORAL SCH (21:00)
[2019-05-25 00:40] VITALS: BP 115/72
[2019-05-25 04:16] VITALS: BP 128/83
[2019-05-25] MEDS: Meropenem 1 GM in NS 55 ML IVPB SCH ×2 (05:30→14:03)
[2019-05-25 06:28] LABS: HEMATOCRIT 39.2 % (42.0-52.0); HEMOGLOBIN 12.9 G/DL (14.2-18.0); MEAN CORPUSCULAR VOLUME 90 FL (80-99); PLATELET COUNT 240 K/UL (150-450); RED BLOOD COUNT 4.37 M/UL (4.70-6.10); WHITE BLOOD COUNT 8.7 K/UL (4.8-10.8)
[2019-05-25 06:50] LABS: BLOOD UREA NITROGEN 15 mg/dL (7-18); CALCIUM 9.1 MG/DL (8.5-10.1); CHLORIDE 103 MMOL/L (98-107); CREATININE 0.9 MG/DL (0.55-1.30); POTASSIUM 4.2 MMOL/L (3.5-5.1)
[2019-05-25 07:35] LABS: ANION GAP 8 mmol/L (5-15); CARBON DIOXIDE 31 MMOL/L (21-32); SODIUM 142 MMOL/L (136-145)
[2019-05-25 08:00] VITALS: BP 117/79
[2019-05-25] MEDS: Docusate 100mg cap ORAL SCH ×2 (08:20→17:18)
[2019-05-25] MEDS: Eliquis 5mg tablet ORAL SCH ×2 (08:21→17:18)
--- NOTE | 2019-05-25 09:03 | General Progress Note ---
Assessment/Plan Problem List: (1) Diabetes mellitus ICD Codes: E11.9 - Type 2 diabetes mellitus without complications SNOMED: 27340435 (2) Respiratory failure with hypoxia ICD Codes: J96.91 - Respiratory failure, unspecified with hypoxia SNOMED: 33152099411035042 (3) COPD exacerbation ICD Codes: J44.1 - Chronic obstructive pulmonary disease with (acute) exacerbation SNOMED: 129765711 (4) Hypothyroid ICD Codes: E03.9 - Hypothyroidism, unspecified SNOMED: 52353181 (5) Pacemaker ICD Codes: Z95.0 - Presence of cardiac pacemaker SNOMED: 533483679 (6) Prostate cancer ICD Codes: C61 - Malignant neoplasm of prostate SNOMED: 635518378 Status: stable, not improved, deteriorating Assessment/Plan: s/p EGD stable H&H needs out patient fu fo colonoscopy repeat stool ob pending good po intake fu pulm recs Subjective ROS Limited/Unobtainable: No Allergies: Coded Allergies: No Known Allergies (Unverified , 10/24/16) Objective Last 24 Hour Vital Signs Date Time Temp Pulse Resp B/P (MAP) Pulse Ox O2 Delivery O2 Flow Rate FiO2 05/25/19 08:00 98.3 107 22 117/79 (92) 95 05/25/19 07:59 92 Bi-Pap 30 05/25/19 07:58 79 20 91 Bi-Pap 30 05/25/19 05:31 78 18 95 30 05/25/19 04:16 98.0 83 15 128/83 (98) 95 05/25/19 00:40 97.6 72 19 115/72 (86) 91 05/24/19 21:44 97.9 05/24/19 21:26 75 18 94 30 05/24/19 20:15 97.9 88 21 128/71 (90) 93 05/24/19 20:09 Nasal Cannula 3.0 05/24/19 20:03 72 18 90 30 05/24/19 20:03 90 Bi-Pap 30 05/24/19 20:03 75 18 90 Bi-Pap 30 05/24/19 16:00 98.1 78 19 126/70 (88) 93 05/24/19 12:00 98.1 78 19 132/70 (90) 93 Intake and Output 05/24/19 05/25/19 19:00 07:00 Intake Total 500 ml 470 ml Output Total 700 ml 1200 ml Balance -200 ml -730 ml Intake Oral 500 ml 360 ml IV Total 110 ml Output Urine Total 700 ml 1200 ml # Voids 1 Laboratory Tests 05/25/19 06:07: White Blood Count 8.7, Red Blood Count 4.37L, Hemoglobin 12.9L, Hematocrit 39.2L , Mean Corpuscular Volume 90, Mean Corpuscular Hemoglobin 29.5, Mean Corpuscular Hemoglobin Concent 32.9, Red Cell Distribution Width 14.0, Platelet Count 240, Mean Platelet Volume 6.1L, Neutrophils (%) (Auto) , Lymphocytes (%) ( Auto) , Monocytes (%) (Auto) , Eosinophils (%) (Auto) , Basophils (%) (Auto) , Neutrophils % (Manual) [Pending], Lymphocytes % (Manual) [Pending], Platelet Estimate [Pending], Platelet Morphology [Pending], Sodium Level 142, Potassium Level 4.2, Chloride Level 103, Carbon Dioxide Level 31, Anion Gap 8, Blood Urea Nitrogen 15, Creatinine 0.9, Estimat Glomerular Filtration Rate > 60, Glucose Level 129H, Calcium Level 9.1 Height (Feet): 6 Height (Inches): 0.00 Weight (Pounds): 214 General Appearance: no apparent distress EENT: normal ENT inspection Neck: supple Cardiovascular: normal rate Respiratory/Chest: decreased breath sounds Abdomen: normal bowel sounds, non tender, soft Extremities: non-tender Christiano La MD May 25, 2019 09:03
--- NOTE | 2019-05-25 10:52 | Infectious Diseases Prog Note ---
Assessment/Plan Assessment/Plan Assessment: UCX : dale : colonizer COPD exacerbation , PNA, Sp -05/12 CXR: Bilateral interstitial disease, appearing similar to the previous exam,likely represents combination of senescent change and persistent or recurrent interstitial congestion -04/29 CXRLThere is bilateral interstitial congestion again demonstrated, appearing unchanged. No focal airspace consolidation. There is some atelectasis at the left lung base. -04/27 CXR: Borderline cardiomegaly. Questionable mild interstitial congestion , new or increased from previous study if real. -04/21 CTA chest:Somewhat limited exam, due to motion artifact. No definite evidence of pulmonary embolus or other acute thoracic vascular pathology. Borderline cardiomegaly. Diffuse bilateral pulmonary parenchymal groundglass opacity. Interspersed small bullae digestive this is due to COPD changes, but could also indicate a component of pulmonary edema. Considerable consolidation in the right lower lobe, likely pneumonia. Less extensive consolidation and atelectasis is seen at the left lung base. Pacemaker, degenerative spondylosis incidentally noted sp cx normal resp michael -04/19 CXR: Mild pulmonary vascular congestion -04/16 CXR: No acute disease -04/13 CXR: Suspected mild pulmonary vascular congestion. Correlate clinically -04/08 CXR: Mild pulmonary vascular congestion suspected Afebrile Leukocytosis,(pn steroids); improving HIV neg Hyperglycemia Acute hypoxic respiratory failure ,on bipap PRN COPD CAD CHF prostate cancer s/p PPM former smoker Plan: - Merrem # 4 change to Tygacil # 1( Dw PCP) - Vfend # 6( as per Pul) - 05/22 Sp Amikacin INH # 12 - 05/05 Sp Ertapenem # / - 05/03 sp Vancomycin # 5 -04/28 SP Zosyn #8 -04/15 SP Levaquin #7 -04/08 SP Ceftriaxone x1, Azithromycin x1 -Monitor CBC/CMP, temperatures -aspiration precautions - Fungitell - Galctomannan Thank you for this consultation. Will continue to follow along with you. Subjective Allergies: Coded Allergies: No Known Allergies (Unverified , 10/24/16) Subjective cough is better comfortable Objective Vital Signs Last 24 Hour Vital Signs Date Time Temp Pulse Resp B/P (MAP) Pulse Ox O2 Delivery O2 Flow Rate FiO2 05/25/19 09:00 Nasal Cannula 2.0 3/17/20 08:00 98.3 107 22 117/79 (92) 95 05/25/19 07:59 92 Bi-Pap 30 05/25/19 07:58 79 20 91 Bi-Pap 30 05/25/19 05:31 78 18 95 30 05/25/19 04:16 98.0 83 15 128/83 (98) 95 05/25/19 00:40 97.6 72 19 115/72 (86) 91 05/24/19 21:44 97.9 05/24/19 21:26 75 18 94 30 05/24/19 20:15 97.9 88 21 128/71 (90) 93 05/24/19 20:09 Nasal Cannula 3.0 05/24/19 20:03 72 18 90 30 05/24/19 20:03 90 Bi-Pap 30 05/24/19 20:03 75 18 90 Bi-Pap 30 05/24/19 16:00 98.1 78 19 126/70 (88) 93 05/24/19 12:00 98.1 78 19 132/70 (90) 93 Height (Feet): 6 Height (Inches): 0.00 Weight (Pounds): 214 HEENT: mucous membranes moist Respiratory/Chest: normal breath sounds Cardiovascular: normal peripheral pulses Laboratory Tests Test 05/25/19 06:07 White Blood Count 8.7 K/UL (4.8-10.8) Red Blood Count 4.37 M/UL (4.70-6.10) L Hemoglobin 12.9 G/DL (14.2-18.0) L Hematocrit 39.2 % (42.0-52.0) L Mean Corpuscular Volume 90 FL (80-99) Mean Corpuscular Hemoglobin 29.5 PG (27.0-31.0) Mean Corpuscular Hemoglobin Concent 32.9 G/DL (32.0-36.0) Red Cell Distribution Width 14.0 % (11.6-14.8) Platelet Count 240 K/UL (150-450) Mean Platelet Volume 6.1 FL (6.5-10.1) L Neutrophils (%) (Auto) % (45.0-75.0) Lymphocytes (%) (Auto) % (20.0-45.0) Monocytes (%) (Auto) % (1.0-10.0) Eosinophils (%) (Auto) % (0.0-3.0) Basophils (%) (Auto) % (0.0-2.0) Differential Total Cells Counted 100 Neutrophils % (Manual) 47 % (45-75) Lymphocytes % (Manual) 26 % (20-45) Monocytes % (Manual) 4 % (1-10) Eosinophils % (Manual) 21 % (0-3) H Basophils % (Manual) 1 % (0-2) Band Neutrophils 1 % (0-8) Platelet Estimate Adequate Platelet Morphology Normal Sodium Level 142 MMOL/L (136-145) Potassium Level 4.2 MMOL/L (3.5-5.1) Chloride Level 103 MMOL/L (98-107) Carbon Dioxide Level 31 MMOL/L (21-32) Anion Gap 8 mmol/L (5-15) Blood Urea Nitrogen 15 mg/dL (7-18) Creatinine 0.9 MG/DL (0.55-1.30) Estimat Glomerular Filtration Rate > 60 mL/min (>60) Glucose Level 129 MG/DL (74-106) H Calcium Level 9.1 MG/DL (8.5-10.1) Current Medications Medications (Trade) Dose Ordered Sig/Dejon Route PRN Reason Start Time Stop Time Status Last Admin Dose Admin Acetaminophen (Tylenol) 650 mg Q4H PRN ORAL Mild Pain/Temp > 100.5 05/21/19 18:14 06/15/19 18:13 05/22/19 09:41 Acetaminophen/ Hydrocodone Bitart ([place] 5/325) 1 tab Q6H PRN ORAL Severe Pain (Pain Scale 7-10) 05/21/19 22:15 05/28/19 22:14 05/24/19 21:13 Apixaban (Eliquis) 5 mg BID ORAL 05/22/19 09:00 06/21/19 08:59 05/25/19 08:21 Clonidine HCl (Catapres Tab) 0.1 mg Q4H PRN ORAL sbp more than 160 05/21/19 18:14 05/31/19 18:13 Docusate Sodium (Colace) 100 mg TWICE A DAY ORAL 05/22/19 09:00 06/21/19 08:59 05/25/19 08:20 Escitalopram Oxalate (Lexapro) 10 mg DAILY ORAL 05/22/19 09:00 06/22/19 08:59 05/25/19 08:20 Levothyroxine Sodium (Synthroid) 75 mcg ACBREAKFAST ORAL 05/22/19 06:30 05/27/19 06:29 05/25/19 05:30 Meropenem 1 gm/ Sodium Chloride 55 ml @ 110 mls/hr Q8HR IVPB 05/21/19 22:00 05/26/19 11:59 05/25/19 05:30 Nitroglycerin (Ntg) 0.4 mg Q5M X 3 DOSES PRN SL Prn Chest Pain 05/21/19 18:14 06/06/19 18:13 Ondansetron HCl (Zofran) 4 mg Q6H PRN IVP Nausea & Vomiting 05/21/19 18:15 05/31/19 18:14 Oxymetazoline HCl (Afrin Nasal [place]) 1 spray Q6H PRN NASAL nasal congestion 05/21/19 18:17 05/31/19 18:16 Pantoprazole (Protonix) 40 mg EVERY 12 HOURS ORAL 05/21/19 21:00 06/05/19 20:59 05/25/19 08:20 Polyethylene Glycol (Miralax) 17 gm BEDTIME ORAL 05/21/19 21:00 06/20/19 20:59 Promethazine HCl/ Codeine (Phenergan with Codeine) 5 ml Q6H PRN ORAL cough 05/21/19 18:15 05/31/19 18:14 Quetiapine Fumarate (SEROqueL) 25 mg EVERY 6 HOURS PRN ORAL For Anxiety 05/22/19 00:00 07/06/19 00:00 Voriconazole (Vfend) 200 mg EVERY 12 HOURS ORAL 05/21/19 21:00 05/27/19 12:59 05/25/19 08:21 Robert Canela MD May 25, 2019 10:52
[2019-05-25 12:07] VITALS: BP 125/81
--- NOTE | 2019-05-25 14:48 | Pulmonology Progress Note ---
Assessment/Plan Problems: (1) Interstitial pneumonia (2) Respiratory failure with hypoxia (3) COPD exacerbation (4) Nosocomial pneumonia (5) Pacemaker (6) Anemia (7) Prostate cancer (8) Diabetes mellitus Assessment/Plan still has thick phlegm, ID to adjust abx PRN BIPAP on nasal cannula now wbc normal will start on Voriconazole for presumptive Aspergillosis [place] Virus was negative Subjective ROS Limited/Unobtainable: No Constitutional: Reports: no symptoms HEENT: Repors: no symptoms Respiratory: Reports: no symptoms Allergies: Coded Allergies: No Known Allergies (Unverified , 10/24/16) Objective Last 24 Hour Vital Signs Date Time Temp Pulse Resp B/P (MAP) Pulse Ox O2 Delivery O2 Flow Rate FiO2 05/25/19 12:07 98.1 103 20 125/81 (96) 95 05/25/19 09:00 Nasal Cannula 2.0 05/25/19 08:00 98.3 107 22 117/79 (92) 95 05/25/19 07:59 92 Bi-Pap 30 05/25/19 07:58 79 20 91 Bi-Pap 30 05/25/19 05:31 78 18 95 30 05/25/19 04:16 98.0 83 15 128/83 (98) 95 05/25/19 00:40 97.6 72 19 115/72 (86) 91 05/24/19 21:44 97.9 05/24/19 21:26 75 18 94 30 05/24/19 20:15 97.9 88 21 128/71 (90) 93 05/24/19 20:09 Nasal Cannula 3.0 05/24/19 20:03 72 18 90 30 05/24/19 20:03 90 Bi-Pap 30 05/24/19 20:03 75 18 90 Bi-Pap 30 05/24/19 16:00 98.1 78 19 126/70 (88) 93 Intake and Output 05/24/19 05/25/19 19:00 07:00 Intake Total 500 ml 470 ml Output Total 700 ml 1200 ml Balance -200 ml -730 ml Intake Oral 500 ml 360 ml IV Total 110 ml Output Urine Total 700 ml 1200 ml # Voids 1 General Appearance: WD/WN HEENT: normocephalic, atraumatic Respiratory/Chest: chest wall non-tender, lungs clear Cardiovascular: normal peripheral pulses, normal rate Abdomen: normal bowel sounds, soft, non tender, no organomegaly Genitourinary: normal external genitalia Extremities: no cyanosis 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 Laboratory Tests 05/25/19 06:07: White Blood Count 8.7, Red Blood Count 4.37L, Hemoglobin 12.9L, Hematocrit 39.2L , Mean Corpuscular Volume 90, Mean Corpuscular Hemoglobin 29.5, Mean Corpuscular Hemoglobin Concent 32.9, Red Cell Distribution Width 14.0, Platelet Count 240, Mean Platelet Volume 6.1L, Neutrophils (%) (Auto) , Lymphocytes (%) ( Auto) , Monocytes (%) (Auto) , Eosinophils (%) (Auto) , Basophils (%) (Auto) , Differential Total Cells Counted 100, Neutrophils % (Manual) 47, Lymphocytes % ( Manual) 26, Monocytes % (Manual) 4, Eosinophils % (Manual) 21H, Basophils % ( Manual) 1, Band Neutrophils 1, Platelet Estimate Adequate, Platelet Morphology Normal, Sodium Level 142, Potassium Level 4.2, Chloride Level 103, Carbon Dioxide Level 31, Anion Gap 8, Blood Urea Nitrogen 15, Creatinine 0.9, Estimat Glomerular Filtration Rate > 60, Glucose Level 129H, Calcium Level 9.1 Current Medications Medications (Trade) Dose Ordered Sig/Dejon Route PRN Reason Start Time Stop Time Status Last Admin Dose Admin Acetaminophen (Tylenol) 650 mg Q4H PRN ORAL Mild Pain/Temp > 100.5 05/21/19 18:14 06/15/19 18:13 05/22/19 09:41 Acetaminophen/ Hydrocodone Bitart ([place] 5/325) 1 tab Q6H PRN ORAL Severe Pain (Pain Scale 7-10) 05/21/19 22:15 05/28/19 22:14 05/24/19 21:13 Apixaban (Eliquis) 5 mg BID ORAL 05/22/19 09:00 06/21/19 08:59 05/25/19 08:21 Clonidine HCl (Catapres Tab) 0.1 mg Q4H PRN ORAL sbp more than 160 05/21/19 18:14 05/31/19 18:13 Docusate Sodium (Colace) 100 mg TWICE A DAY ORAL 05/22/19 09:00 06/21/19 08:59 05/25/19 08:20 Escitalopram Oxalate (Lexapro) 10 mg DAILY ORAL 05/22/19 09:00 06/22/19 08:59 05/25/19 08:20 Levothyroxine Sodium (Synthroid) 75 mcg ACBREAKFAST ORAL 05/22/19 06:30 05/27/19 06:29 05/25/19 05:30 Meropenem 1 gm/ Sodium Chloride 55 ml @ 110 mls/hr Q8HR IVPB 05/21/19 22:00 05/26/19 11:59 05/25/19 14:03 Nitroglycerin (Ntg) 0.4 mg Q5M X 3 DOSES PRN SL Prn Chest Pain 05/21/19 18:14 06/06/19 18:13 Ondansetron HCl (Zofran) 4 mg Q6H PRN IVP Nausea & Vomiting 05/21/19 18:15 05/31/19 18:14 Oxymetazoline HCl (Afrin Nasal [place]) 1 spray Q6H PRN NASAL nasal congestion 05/21/19 18:17 05/31/19 18:16 Pantoprazole (Protonix) 40 mg EVERY 12 HOURS ORAL 05/21/19 21:00 06/05/19 20:59 05/25/19 08:20 Polyethylene Glycol (Miralax) 17 gm BEDTIME ORAL 05/21/19 21:00 06/20/19 20:59 Promethazine HCl/ Codeine (Phenergan with Codeine) 5 ml Q6H PRN ORAL cough 05/21/19 18:15 05/31/19 18:14 Quetiapine Fumarate (SEROqueL) 25 mg EVERY 6 HOURS PRN ORAL For Anxiety 05/22/19 00:00 07/06/19 00:00 Voriconazole (Vfend) 200 mg EVERY 12 HOURS ORAL 05/21/19 21:00 05/27/19 12:59 05/25/19 08:21 Goldie Obrien MD May 25, 2019 14:48
[2019-05-25] MEDS: HYDROcodone/Acetamin 5/325 tab ORAL PRN ×2 (15:06→21:06)
[2019-05-25 16:00] VITALS: BP 123/85
[2019-05-25] MEDS ORDERED: Tigecycline 100 MG in NS 110 ML IVPB ONE (17:00)
--- NOTE | 2019-05-25 18:32 | Internal Med Progress Note ---
Subjective Date of Service: May 25, 2019 Physician Name LugoIdris Attending Physician Jewel Giraldo MD Current Medications Medications (Trade) Dose Ordered Sig/Dejon Route PRN Reason Start Time Stop Time Status Last Admin Dose Admin Acetaminophen (Tylenol) 650 mg Q4H PRN ORAL Mild Pain/Temp > 100.5 05/21/19 18:14 06/15/19 18:13 05/22/19 09:41 Acetaminophen/ Hydrocodone Bitart ([place] 5/325) 1 tab Q6H PRN ORAL Severe Pain (Pain Scale 7-10) 05/21/19 22:15 05/28/19 22:14 05/25/19 15:06 Apixaban (Eliquis) 5 mg BID ORAL 05/22/19 09:00 06/21/19 08:59 05/25/19 17:18 Clonidine HCl (Catapres Tab) 0.1 mg Q4H PRN ORAL sbp more than 160 05/21/19 18:14 05/31/19 18:13 Docusate Sodium (Colace) 100 mg TWICE A DAY ORAL 05/22/19 09:00 06/21/19 08:59 05/25/19 17:18 Escitalopram Oxalate (Lexapro) 10 mg DAILY ORAL 05/22/19 09:00 06/22/19 08:59 05/25/19 08:20 Levothyroxine Sodium (Synthroid) 75 mcg ACBREAKFAST ORAL 05/22/19 06:30 05/27/19 06:29 05/25/19 05:30 Nitroglycerin (Ntg) 0.4 mg Q5M X 3 DOSES PRN SL Prn Chest Pain 05/21/19 18:14 06/06/19 18:13 Ondansetron HCl (Zofran) 4 mg Q6H PRN IVP Nausea & Vomiting 05/21/19 18:15 05/31/19 18:14 Oxymetazoline HCl (Afrin Nasal [place]) 1 spray Q6H PRN NASAL nasal congestion 05/21/19 18:17 05/31/19 18:16 Pantoprazole (Protonix) 40 mg EVERY 12 HOURS ORAL 05/21/19 21:00 06/05/19 20:59 05/25/19 08:20 Polyethylene Glycol (Miralax) 17 gm BEDTIME ORAL 05/21/19 21:00 06/20/19 20:59 Promethazine HCl/ Codeine (Phenergan with Codeine) 5 ml Q6H PRN ORAL cough 05/21/19 18:15 05/31/19 18:14 Quetiapine Fumarate (SEROqueL) 25 mg EVERY 6 HOURS PRN ORAL For Anxiety 05/22/19 00:00 07/06/19 00:00 Tigecycline 50 mg/ Sodium Chloride 110 ml @ 220 mls/hr EVERY 12 HOURS IVPB 05/26/19 09:00 06/02/19 08:59 Voriconazole (Vfend) 200 mg EVERY 12 HOURS ORAL 05/21/19 21:00 05/27/19 12:59 05/25/19 08:21 Allergies: Coded Allergies: No Known Allergies (Unverified , 10/24/16) ROS Limited/Unobtainable: No Constitutional: Reports: no symptoms HEENT: Reports: no symptoms Cardiovascular: Reports: no symptoms Respiratory: Reports: no symptoms Gastrointestinal/Abdominal: Reports: no symptoms Genitourinary: Reports: no symptoms Neurologic/Psychiatric: Reports: no symptoms Subjective 73 YO M admitted with COPD exacerbation. Now respiratory failure and pneumonia. Cover for Int Med-DR Giraldo. S/P endoscopy 05/06/19. Off BIPAP. Objective Last Vital Signs Date Time Temp Pulse Resp B/P (MAP) Pulse Ox O2 Delivery O2 Flow Rate FiO2 05/25/19 16:16 82 21 93 30 05/25/19 16:00 97.9 123/85 (98) 05/25/19 09:00 Nasal Cannula 2.0 Laboratory Tests Test 05/25/19 06:07 White Blood Count 8.7 K/UL (4.8-10.8) Red Blood Count 4.37 M/UL (4.70-6.10) L Hemoglobin 12.9 G/DL (14.2-18.0) L Hematocrit 39.2 % (42.0-52.0) L Mean Corpuscular Volume 90 FL (80-99) Mean Corpuscular Hemoglobin 29.5 PG (27.0-31.0) Mean Corpuscular Hemoglobin Concent 32.9 G/DL (32.0-36.0) Red Cell Distribution Width 14.0 % (11.6-14.8) Platelet Count 240 K/UL (150-450) Mean Platelet Volume 6.1 FL (6.5-10.1) L Neutrophils (%) (Auto) % (45.0-75.0) Lymphocytes (%) (Auto) % (20.0-45.0) Monocytes (%) (Auto) % (1.0-10.0) Eosinophils (%) (Auto) % (0.0-3.0) Basophils (%) (Auto) % (0.0-2.0) Differential Total Cells Counted 100 Neutrophils % (Manual) 47 % (45-75) Lymphocytes % (Manual) 26 % (20-45) Monocytes % (Manual) 4 % (1-10) Eosinophils % (Manual) 21 % (0-3) H Basophils % (Manual) 1 % (0-2) Band Neutrophils 1 % (0-8) Platelet Estimate Adequate Platelet Morphology Normal Sodium Level 142 MMOL/L (136-145) Potassium Level 4.2 MMOL/L (3.5-5.1) Chloride Level 103 MMOL/L (98-107) Carbon Dioxide Level 31 MMOL/L (21-32) Anion Gap 8 mmol/L (5-15) Blood Urea Nitrogen 15 mg/dL (7-18) Creatinine 0.9 MG/DL (0.55-1.30) Estimat Glomerular Filtration Rate > 60 mL/min (>60) Glucose Level 129 MG/DL (74-106) H Calcium Level 9.1 MG/DL (8.5-10.1) Intake and Output 05/24/19 05/25/19 19:00 07:00 Intake Total 500 ml 470 ml Output Total 700 ml 1200 ml Balance -200 ml -730 ml Intake Oral 500 ml 360 ml IV Total 110 ml Output Urine Total 700 ml 1200 ml # Voids 1 Objective PHYSICAL EXAMINATION: GENERAL: The patient is awake, responsive, no acute distress. HEAD AND NECK: Pupils are equal and reactive to light. Extraocular muscles intact. Neck was supple. No JVD. LUNGS: Nasal canula;The patient has expiratory wheezes noted. Tachypneic. No rhonchi was noted. HEART: S1, S2. Irregular. No murmur. The patient has a pacemaker in the left-sided chest wall. ABDOMEN: Soft, nondistended, nontender. Mildly obese. EXTREMITIES: No cyanosis, clubbing, edema. NEUROLOGIC: Cranial nerves II through XII grossly normal. Motor is 5/5 in all extremities. Gait is intact. GENITOURINARY: It was noted the patient has a [place] catheter. RECTAL: Refused and deferred. PSYCHIATRIC: Mood and affect is intact. Assessment/Plan Assessment/Plan ASSESSMENT: 1. Acute hypoxemic respiratory failure, most likely secondary to acute COPD exacerbation. 2. Acute COPD exacerbation. 3. Pneumonia. 4. Sick sinus syndrome status post pacemaker. 5. Diabetes type 2. 6. Prostate cancer. 7. Hyperkalemia. 8. Insulin induced hyperglycemia. 9. Prostate enlargement. 10. Leukocytosis 11. RBBB 12 Gastritis PLAN: 1. Med/Surg 2. D/C Solu-Medrol IV Per Pulmonary consult=Dr. Obrien. 3. Endocrinology=Dr To. Monitor blood glucose level closely. 4. antibiotic= inhaled amikacin; S/P ertapenem and vanco. ID=Dr Villa 5. Code status is Full Code. DVT prophylaxis, he is on Eliquis. 6. S/P endoscopy 05/06/19=gastritis Idris Lugo MD May 25, 2019 18:32
[2019-05-25 20:00] VITALS: BP 140/90
[2019-05-25] MEDS: Miralax 17gm pkt ORAL SCH (20:54)
[2019-05-26] VITALS: BP 130/86
[2019-05-26 04:00] VITALS: BP 136/84
[2019-05-26 08:00] VITALS: BP 120/63
--- NOTE | 2019-05-26 08:28 | General Progress Note ---
Assessment/Plan Problem List: (1) Diabetes mellitus ICD Codes: E11.9 - Type 2 diabetes mellitus without complications SNOMED: 11945551 (2) Respiratory failure with hypoxia ICD Codes: J96.91 - Respiratory failure, unspecified with hypoxia SNOMED: 64934996947986569 (3) COPD exacerbation ICD Codes: J44.1 - Chronic obstructive pulmonary disease with (acute) exacerbation SNOMED: 982409136 (4) Hypothyroid ICD Codes: E03.9 - Hypothyroidism, unspecified SNOMED: 33652079 (5) Pacemaker ICD Codes: Z95.0 - Presence of cardiac pacemaker SNOMED: 167043660 (6) Prostate cancer ICD Codes: C61 - Malignant neoplasm of prostate SNOMED: 024294056 Status: stable, not improved, deteriorating Assessment/Plan: s/p EGD stable H&H needs out patient fu fo colonoscopy repeat stool ob pending good po intake fu pulm recs Subjective ROS Limited/Unobtainable: No Allergies: Coded Allergies: No Known Allergies (Unverified , 10/24/16) Objective Last 24 Hour Vital Signs Date Time Temp Pulse Resp B/P (MAP) Pulse Ox O2 Delivery O2 Flow Rate FiO2 05/26/19 05:28 71 14 94 30 05/26/19 04:00 98.2 78 21 136/84 (101) 91 05/26/19 03:16 75 18 95 30 05/26/19 01:26 78 16 93 30 05/26/19 00:00 98.1 73 18 130/86 (101) 92 05/25/19 23:39 71 16 94 30 05/25/19 21:00 Nasal Cannula 3.0 05/25/19 20:26 69 18 93 Nasal Cannula 3.0 32 05/25/19 20:26 93 Nasal Cannula 3.0 32 05/25/19 20:00 98.2 73 24 140/90 (107) 91 05/25/19 16:16 82 21 93 30 05/25/19 16:00 97.9 109 22 123/85 (98) 94 05/25/19 15:38 98.1 05/25/19 12:07 98.1 103 20 125/81 (96) 95 05/25/19 09:00 Nasal Cannula 2.0 Intake and Output 05/25/19 05/26/19 19:00 07:00 Intake Total 110 ml 240 ml Output Total 600 ml 650 ml Balance -490 ml -410 ml Intake Oral 240 ml IV Total 110 ml Output Urine Total 600 ml 650 ml # Voids 1 # Bowel Movements 1 Height (Feet): 6 Height (Inches): 0.00 Weight (Pounds): 210 General Appearance: no apparent distress EENT: normal ENT inspection Neck: supple Cardiovascular: normal rate Respiratory/Chest: decreased breath sounds Abdomen: normal bowel sounds, non tender, soft Extremities: non-tender Christiano La MD May 26, 2019 08:28
[2019-05-26] MEDS: Eliquis 5mg tablet ORAL SCH ×3 (09:23→17:38)
[2019-05-26] MEDS: Docusate 100mg cap ORAL SCH ×3 (09:23→17:38)
[2019-05-26] MEDS: Tigecycline 50 MG in NS 110 ML IVPB SCH ×2 (09:24→20:07)
[2019-05-26 12:00] VITALS: BP 122/84
--- NOTE | 2019-05-26 12:29 | Infectious Diseases Prog Note ---
Assessment/Plan Assessment/Plan Assessment: UCX : dale : colonizer COPD exacerbation , PNA, Sp -05/12 CXR: Bilateral interstitial disease, appearing similar to the previous exam,likely represents combination of senescent change and persistent or recurrent interstitial congestion -04/29 CXRLThere is bilateral interstitial congestion again demonstrated, appearing unchanged. No focal airspace consolidation. There is some atelectasis at the left lung base. -04/27 CXR: Borderline cardiomegaly. Questionable mild interstitial congestion , new or increased from previous study if real. -04/21 CTA chest:Somewhat limited exam, due to motion artifact. No definite evidence of pulmonary embolus or other acute thoracic vascular pathology. Borderline cardiomegaly. Diffuse bilateral pulmonary parenchymal groundglass opacity. Interspersed small bullae digestive this is due to COPD changes, but could also indicate a component of pulmonary edema. Considerable consolidation in the right lower lobe, likely pneumonia. Less extensive consolidation and atelectasis is seen at the left lung base. Pacemaker, degenerative spondylosis incidentally noted sp cx normal resp michael -04/19 CXR: Mild pulmonary vascular congestion -04/16 CXR: No acute disease -04/13 CXR: Suspected mild pulmonary vascular congestion. Correlate clinically -04/08 CXR: Mild pulmonary vascular congestion suspected Afebrile Leukocytosis,(pn steroids); improving HIV neg Hyperglycemia Acute hypoxic respiratory failure ,on bipap PRN COPD CAD CHF prostate cancer s/p PPM former smoker Plan: - Tygacil # 2( Dw PCP) - Vfend # 7( as per Pul) - 05/24 Sp Merrem # 5 - 05/22 Sp Amikacin INH # 12 - 05/05 Sp Ertapenem # / - 05/03 sp Vancomycin # 5 -04/28 SP Zosyn #8 -04/15 SP Levaquin #7 -04/08 SP Ceftriaxone x1, Azithromycin x1 -Monitor CBC/CMP, temperatures -aspiration precautions - Fungitell - Galctomannan Thank you for this consultation. Will continue to follow along with you. Subjective Allergies: Coded Allergies: No Known Allergies (Unverified , 10/24/16) Subjective afebrile no acute event Objective Vital Signs Last 24 Hour Vital Signs Date Time Temp Pulse Resp B/P (MAP) Pulse Ox O2 Delivery O2 Flow Rate FiO2 05/26/19 12:00 97.0 79 22 122/84 (97) 90 3/18/20 09:00 Nasal Cannula 3.0 05/26/19 08:00 97.1 66 20 120/63 (82) 97 05/26/19 07:35 95 Nasal Cannula 3.0 32 05/26/19 07:30 70 16 95 Nasal Cannula 3.0 32 05/26/19 07:29 69 16 94 30 05/26/19 05:28 71 14 94 30 05/26/19 04:00 98.2 78 21 136/84 (101) 91 05/26/19 03:16 75 18 95 30 05/26/19 01:26 78 16 93 30 05/26/19 00:00 98.1 73 18 130/86 (101) 92 05/25/19 23:39 71 16 94 30 05/25/19 21:00 Nasal Cannula 3.0 05/25/19 20:26 69 18 93 Nasal Cannula 3.0 32 05/25/19 20:26 93 Nasal Cannula 3.0 32 05/25/19 20:00 98.2 73 24 140/90 (107) 91 05/25/19 16:16 82 21 93 30 05/25/19 16:00 97.9 109 22 123/85 (98) 94 05/25/19 15:38 98.1 Height (Feet): 6 Height (Inches): 0.00 Weight (Pounds): 210 HEENT: anicteric Respiratory/Chest: no respiratory distress Cardiovascular: regular rhythm Abdomen: no organomegaly Current Medications Medications (Trade) Dose Ordered Sig/Dejon Route PRN Reason Start Time Stop Time Status Last Admin Dose Admin Acetaminophen (Tylenol) 650 mg Q4H PRN ORAL Mild Pain/Temp > 100.5 05/21/19 18:14 06/15/19 18:13 05/22/19 09:41 Acetaminophen/ Hydrocodone Bitart ([place] 5/325) 1 tab Q6H PRN ORAL Severe Pain (Pain Scale 7-10) 05/21/19 22:15 05/28/19 22:14 05/25/19 21:06 Apixaban (Eliquis) 5 mg BID ORAL 05/22/19 09:00 06/21/19 08:59 05/26/19 09:23 Clonidine HCl (Catapres Tab) 0.1 mg Q4H PRN ORAL sbp more than 160 3/13/20 18:14 05/31/19 18:13 Docusate Sodium (Colace) 100 mg TWICE A DAY ORAL 05/22/19 09:00 06/21/19 08:59 05/26/19 09:23 Escitalopram Oxalate (Lexapro) 10 mg DAILY ORAL 05/22/19 09:00 06/22/19 08:59 05/26/19 09:24 Levothyroxine Sodium (Synthroid) 75 mcg ACBREAKFAST ORAL 05/22/19 06:30 05/27/19 06:29 05/26/19 06:05 Levothyroxine Sodium (Synthroid) 100 mcg ACBREAKFAST ORAL 05/27/19 06:30 06/26/19 06:29 Nitroglycerin (Ntg) 0.4 mg Q5M X 3 DOSES PRN SL Prn Chest Pain 05/21/19 18:14 06/06/19 18:13 Ondansetron HCl (Zofran) 4 mg Q6H PRN IVP Nausea & Vomiting 05/21/19 18:15 05/31/19 18:14 Oxymetazoline HCl (Afrin Nasal [place]) 1 spray Q6H PRN NASAL nasal congestion 05/21/19 18:17 05/31/19 18:16 Pantoprazole (Protonix) 40 mg EVERY 12 HOURS ORAL 05/21/19 21:00 06/05/19 20:59 05/26/19 09:24 Polyethylene Glycol (Miralax) 17 gm BEDTIME ORAL 05/21/19 21:00 06/20/19 20:59 Promethazine HCl/ Codeine (Phenergan with Codeine) 5 ml Q6H PRN ORAL cough 05/21/19 18:15 05/31/19 18:14 Quetiapine Fumarate (SEROqueL) 25 mg EVERY 6 HOURS PRN ORAL For Anxiety 05/22/19 00:00 07/06/19 00:00 Tigecycline 50 mg/ Sodium Chloride 110 ml @ 220 mls/hr EVERY 12 HOURS IVPB 05/26/19 09:00 06/02/19 08:59 05/26/19 09:24 Voriconazole (Vfend) 200 mg EVERY 12 HOURS ORAL 05/21/19 21:00 05/27/19 12:59 05/26/19 09:23 Robert Canela MD May 26, 2019 12:29
--- NOTE | 2019-05-26 14:14 | Pulmonology Progress Note ---
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 [place] Virus was negative Subjective ROS Limited/Unobtainable: No Constitutional: Reports: no symptoms HEENT: Repors: no symptoms Respiratory: Reports: productive cough, sputum Allergies: Coded Allergies: No Known Allergies (Unverified , 10/24/16) Objective Last 24 Hour Vital Signs Date Time Temp Pulse Resp B/P (MAP) Pulse Ox O2 Delivery O2 Flow Rate FiO2 05/26/19 12:00 97.0 79 22 122/84 (97) 90 05/26/19 09:00 Nasal Cannula 3.0 05/26/19 08:00 97.1 66 20 120/63 (82) 97 05/26/19 07:35 95 Nasal Cannula 3.0 32 05/26/19 07:30 70 16 95 Nasal Cannula 3.0 32 05/26/19 07:29 69 16 94 30 05/26/19 05:28 71 14 94 30 05/26/19 04:00 98.2 78 21 136/84 (101) 91 05/26/19 03:16 75 18 95 30 05/26/19 01:26 78 16 93 30 05/26/19 00:00 98.1 73 18 130/86 (101) 92 05/25/19 23:39 71 16 94 30 05/25/19 21:00 Nasal Cannula 3.0 05/25/19 20:26 69 18 93 Nasal Cannula 3.0 32 05/25/19 20:26 93 Nasal Cannula 3.0 32 05/25/19 20:00 98.2 73 24 140/90 (107) 91 05/25/19 16:16 82 21 93 30 05/25/19 16:00 97.9 109 22 123/85 (98) 94 05/25/19 15:38 98.1 Intake and Output 05/25/19 05/26/19 19:00 07:00 Intake Total 110 ml 240 ml Output Total 600 ml 650 ml Balance -490 ml -410 ml Intake Oral 240 ml IV Total 110 ml Output Urine Total 600 ml 650 ml # Voids 1 # Bowel Movements 1 General Appearance: WD/WN Respiratory/Chest: lungs clear Cardiovascular: normal peripheral pulses, normal rate Abdomen: normal bowel sounds, soft, non tender Extremities: no cyanosis 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 Current Medications Medications (Trade) Dose Ordered Sig/Dejon Route PRN Reason Start Time Stop Time Status Last Admin Dose Admin Acetaminophen (Tylenol) 650 mg Q4H PRN ORAL Mild Pain/Temp > 100.5 05/21/19 18:14 06/15/19 18:13 05/22/19 09:41 Acetaminophen/ Hydrocodone Bitart ([place] 5/325) 1 tab Q6H PRN ORAL Severe Pain (Pain Scale 7-10) 05/21/19 22:15 05/28/19 22:14 05/25/19 21:06 Apixaban (Eliquis) 5 mg BID ORAL 05/22/19 09:00 06/21/19 08:59 05/26/19 09:23 Clonidine HCl (Catapres Tab) 0.1 mg Q4H PRN ORAL sbp more than 160 05/21/19 18:14 05/31/19 18:13 Docusate Sodium (Colace) 100 mg TWICE A DAY ORAL 05/22/19 09:00 06/21/19 08:59 05/26/19 09:23 Escitalopram Oxalate (Lexapro) 10 mg DAILY ORAL 05/22/19 09:00 06/22/19 08:59 05/26/19 09:24 Levothyroxine Sodium (Synthroid) 75 mcg ACBREAKFAST ORAL 05/22/19 06:30 05/27/19 06:29 05/26/19 06:05 Levothyroxine Sodium (Synthroid) 100 mcg ACBREAKFAST ORAL 05/27/19 06:30 06/26/19 06:29 Nitroglycerin (Ntg) 0.4 mg Q5M X 3 DOSES PRN SL Prn Chest Pain 05/21/19 18:14 06/06/19 18:13 Ondansetron HCl (Zofran) 4 mg Q6H PRN IVP Nausea & Vomiting 05/21/19 18:15 05/31/19 18:14 Oxymetazoline HCl (Afrin Nasal [place]) 1 spray Q6H PRN NASAL nasal congestion 05/21/19 18:17 05/31/19 18:16 Pantoprazole (Protonix) 40 mg EVERY 12 HOURS ORAL 05/21/19 21:00 06/05/19 20:59 05/26/19 09:24 Polyethylene Glycol (Miralax) 17 gm BEDTIME ORAL 05/21/19 21:00 06/20/19 20:59 Promethazine HCl/ Codeine (Phenergan with Codeine) 5 ml Q6H PRN ORAL cough 05/21/19 18:15 05/31/19 18:14 Quetiapine Fumarate (SEROqueL) 25 mg EVERY 6 HOURS PRN ORAL For Anxiety 05/22/19 00:00 07/06/19 00:00 Tigecycline 50 mg/ Sodium Chloride 110 ml @ 220 mls/hr EVERY 12 HOURS IVPB 05/26/19 09:00 06/02/19 08:59 05/26/19 09:24 Voriconazole (Vfend) 200 mg EVERY 12 HOURS ORAL 05/21/19 21:00 05/27/19 12:59 05/26/19 09:23 Goldie Obrien MD May 26, 2019 14:14
[2019-05-26 16:00] VITALS: BP 113/79
--- NOTE | 2019-05-26 17:28 | Internal Med Progress Note ---
Subjective Date of Service: May 26, 2019 Physician Name BrittneyIdris Attending Physician Jewel Giraldo MD Current Medications Medications (Trade) Dose Ordered Sig/Dejon Route PRN Reason Start Time Stop Time Status Last Admin Dose Admin Acetaminophen (Tylenol) 650 mg Q4H PRN ORAL Mild Pain/Temp > 100.5 05/21/19 18:14 06/15/19 18:13 05/22/19 09:41 Acetaminophen/ Hydrocodone Bitart ([place] 5/325) 1 tab Q6H PRN ORAL Severe Pain (Pain Scale 7-10) 05/21/19 22:15 05/28/19 22:14 05/25/19 21:06 Apixaban (Eliquis) 5 mg BID ORAL 05/22/19 09:00 06/21/19 08:59 05/26/19 17:02 Clonidine HCl (Catapres Tab) 0.1 mg Q4H PRN ORAL sbp more than 160 05/21/19 18:14 05/31/19 18:13 Docusate Sodium (Colace) 100 mg TWICE A DAY ORAL 05/22/19 09:00 06/21/19 08:59 05/26/19 17:01 Escitalopram Oxalate (Lexapro) 10 mg DAILY ORAL 05/22/19 09:00 06/22/19 08:59 05/26/19 09:24 Levothyroxine Sodium (Synthroid) 75 mcg ACBREAKFAST ORAL 05/22/19 06:30 05/27/19 06:29 05/26/19 06:05 Levothyroxine Sodium (Synthroid) 100 mcg ACBREAKFAST ORAL 05/27/19 06:30 06/26/19 06:29 Nitroglycerin (Ntg) 0.4 mg Q5M X 3 DOSES PRN SL Prn Chest Pain 05/21/19 18:14 06/06/19 18:13 Ondansetron HCl (Zofran) 4 mg Q6H PRN IVP Nausea & Vomiting 05/21/19 18:15 05/31/19 18:14 Oxymetazoline HCl (Afrin Nasal [place]) 1 spray Q6H PRN NASAL nasal congestion 05/21/19 18:17 05/31/19 18:16 Pantoprazole (Protonix) 40 mg EVERY 12 HOURS ORAL 05/21/19 21:00 06/05/19 20:59 05/26/19 09:24 Polyethylene Glycol (Miralax) 17 gm BEDTIME ORAL 05/21/19 21:00 06/20/19 20:59 Promethazine HCl/ Codeine (Phenergan with Codeine) 5 ml Q6H PRN ORAL cough 05/21/19 18:15 05/31/19 18:14 Quetiapine Fumarate (SEROqueL) 25 mg EVERY 6 HOURS PRN ORAL For Anxiety 05/22/19 00:00 07/06/19 00:00 Tigecycline 50 mg/ Sodium Chloride 110 ml @ 220 mls/hr EVERY 12 HOURS IVPB 05/26/19 09:00 06/02/19 08:59 05/26/19 09:24 Voriconazole (Vfend) 200 mg EVERY 12 HOURS ORAL 05/21/19 21:00 05/27/19 12:59 05/26/19 09:23 Allergies: Coded Allergies: No Known Allergies (Unverified , 10/24/16) ROS Limited/Unobtainable: No Constitutional: Reports: no symptoms HEENT: Reports: no symptoms Cardiovascular: Reports: no symptoms Respiratory: Reports: shortness of breath Gastrointestinal/Abdominal: Reports: no symptoms Genitourinary: Reports: no symptoms Subjective 73 YO M admitted with COPD exacerbation. Now respiratory failure and pneumonia. Cover for [facility] Med-DR Giraldo. S/P endoscopy 05/06/19. Off BIPAP. Objective Last Vital Signs Date Time Temp Pulse Resp B/P (MAP) Pulse Ox O2 Delivery O2 Flow Rate FiO2 05/26/19 16:00 98.6 73 20 113/79 (90) 92 05/26/19 09:00 Nasal Cannula 3.0 05/26/19 07:35 32 Intake and Output 05/25/19 05/26/19 19:00 07:00 Intake Total 110 ml 240 ml Output Total 600 ml 650 ml Balance -490 ml -410 ml Intake Oral 240 ml IV Total 110 ml Output Urine Total 600 ml 650 ml # Voids 1 # Bowel Movements 1 Objective PHYSICAL EXAMINATION: GENERAL: The patient is awake, responsive, no acute distress. HEAD AND NECK: Pupils are equal and reactive to light. Extraocular muscles intact. Neck was supple. No JVD. LUNGS: Nasal canula;The patient has expiratory wheezes noted. Tachypneic. No rhonchi was noted. HEART: S1, S2. Irregular. No murmur. The patient has a pacemaker in the left-sided chest wall. ABDOMEN: Soft, nondistended, nontender. Mildly obese. EXTREMITIES: No cyanosis, clubbing, edema. NEUROLOGIC: Cranial nerves II through XII grossly normal. Motor is 5/5 in all extremities. Gait is intact. GENITOURINARY: It was noted the patient has a [place] catheter. RECTAL: Refused and deferred. PSYCHIATRIC: Mood and affect is intact. Assessment/Plan Assessment/Plan ASSESSMENT: 1. Acute hypoxemic respiratory failure, most likely secondary to acute COPD exacerbation. 2. Acute COPD exacerbation. 3. Pneumonia. 4. Sick sinus syndrome status post pacemaker. 5. Diabetes type 2. 6. Prostate cancer. 7. Hyperkalemia. 8. Insulin induced hyperglycemia. 9. Prostate enlargement. 10. Leukocytosis 11. RBBB 12 Gastritis PLAN: 1. Med/Surg 2. D/C Solu-Medrol IV Per Pulmonary consult=Dr. Obrien. 3. Endocrinology=Dr To. Monitor blood glucose level closely. 4. antibiotic= inhaled amikacin; S/P ertapenem and vanco. ID=Dr Villa 5. Code status is Full Code. DVT prophylaxis, he is on Eliquis. 6. S/P endoscopy 05/06/19=gastritis Idris Lugo MD May 26, 2019 17:28
[2019-05-26 20:00] VITALS: BP 127/85
[2019-05-26] MEDS: Miralax 17gm pkt ORAL SCH (20:08)
[2019-05-27] VITALS: BP 102/69
[2019-05-27] MEDS: HYDROcodone/Acetamin 5/325 tab ORAL PRN ×3 (00:45→20:33)
--- NOTE | 2019-05-27 03:00 | Progress Note ---
DATE: 05/26/2019 SUBJECTIVE: The patient is the same. He still has behavior issues, poor insight, irritable, low energy. MENTAL STATUS EXAMINATION: The patient is alert and oriented times self, place, and situation. Mood is irritable. Affect is constricted, congruent with mood. Thought process is concrete. Thought content, no suicidal or homicidal ideation. ASSESSMENT: Major depressive disorder. PLAN: 1. We will continue current medications. 2. Provide the patient with reality orientation and supportive therapy. Ottoniel Hillman M.D. DR: KATEY JOB#: [id number] CC: JACKELIN
[2019-05-27 04:00] VITALS: BP 115/79
[2019-05-27] MEDS ORDERED: Albuterol/Ipratropium 3ml neb HHN PRN (06:30)
[2019-05-27] MEDS: Albuterol/Ipratropium 3ml neb HHN PRN (07:23)
[2019-05-27 08:00] VITALS: BP 120/86
--- NOTE | 2019-05-27 08:26 | General Progress Note ---
Assessment/Plan Problem List: (1) Diabetes mellitus ICD Codes: E11.9 - Type 2 diabetes mellitus without complications SNOMED: 30091566 (2) Respiratory failure with hypoxia ICD Codes: J96.91 - Respiratory failure, unspecified with hypoxia SNOMED: 02695101634094646 (3) COPD exacerbation ICD Codes: J44.1 - Chronic obstructive pulmonary disease with (acute) exacerbation SNOMED: 481395088 (4) Hypothyroid ICD Codes: E03.9 - Hypothyroidism, unspecified SNOMED: 43989073 (5) Pacemaker ICD Codes: Z95.0 - Presence of cardiac pacemaker SNOMED: 740793074 (6) Prostate cancer ICD Codes: C61 - Malignant neoplasm of prostate SNOMED: 378518838 Status: stable, not improved, deteriorating Assessment/Plan: s/p EGD stable H&H needs out patient fu fo colonoscopy repeat stool ob pending good po intake fu pulm recs abx fu labs Subjective ROS Limited/Unobtainable: No Allergies: Coded Allergies: No Known Allergies (Unverified , 10/24/16) Objective Last 24 Hour Vital Signs Date Time Temp Pulse Resp B/P (MAP) Pulse Ox O2 Delivery O2 Flow Rate FiO2 05/27/19 07:24 94 Nasal Cannula 3.0 32 05/27/19 07:23 74 20 94 Nasal Cannula 3.0 32 05/27/19 04:00 97.6 71 20 115/79 (91) 91 05/27/19 00:59 70 18 93 30 05/27/19 00:00 97.9 72 22 102/69 (80) 90 05/26/19 22:30 64 17 96 30 05/26/19 21:00 Nasal Cannula 3.0 05/26/19 20:13 93 Nasal Cannula 30 05/26/19 20:13 69 22 93 Bi-Pap 30 05/26/19 20:13 69 22 93 30 05/26/19 20:00 98.1 70 20 127/85 (99) 92 05/26/19 16:00 98.6 73 20 113/79 (90) 92 05/26/19 12:00 97.0 79 22 122/84 (97) 90 05/26/19 09:00 Nasal Cannula 3.0 Intake and Output 05/26/19 05/27/19 19:00 07:00 Intake Total 240 ml Output Total 350 ml 700 ml Balance -110 ml -700 ml Intake Oral 240 ml Output Urine Total 350 ml 700 ml Height (Feet): 6 Height (Inches): 0.00 Weight (Pounds): 210 General Appearance: alert EENT: normal ENT inspection Neck: supple Cardiovascular: normal rate Respiratory/Chest: decreased breath sounds Abdomen: normal bowel sounds, non tender, soft Extremities: non-tender Christiano La MD May 27, 2019 08:26
[2019-05-27] MEDS: Eliquis 5mg tablet ORAL SCH ×2 (09:06→17:42)
[2019-05-27] MEDS: Docusate 100mg cap ORAL SCH ×2 (09:06→17:42)
[2019-05-27] MEDS: Tigecycline 50 MG in NS 110 ML IVPB SCH ×2 (09:09→20:27)
[2019-05-27] MEDS ORDERED: Tubing IV Secondary IV ONE (09:22)
[2019-05-27] MEDS ORDERED: NS 275ml ONE (09:22)
--- NOTE | 2019-05-27 11:55 | Pulmonology Progress Note ---
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 [place] Virus was negative Subjective ROS Limited/Unobtainable: No Interval Events: looks better, but claims to have large amount of secretions Allergies: Coded Allergies: No Known Allergies (Unverified , 10/24/16) Objective Last 24 Hour Vital Signs Date Time Temp Pulse Resp B/P (MAP) Pulse Ox O2 Delivery O2 Flow Rate FiO2 05/27/19 09:00 Nasal Cannula 3.0 05/27/19 08:00 97.3 84 20 120/86 (97) 91 05/27/19 07:24 94 Nasal Cannula 3.0 32 05/27/19 07:23 74 20 94 Nasal Cannula 3.0 32 05/27/19 04:00 97.6 71 20 115/79 (91) 91 05/27/19 00:59 70 18 93 30 05/27/19 00:00 97.9 72 22 102/69 (80) 90 05/26/19 22:30 64 17 96 30 05/26/19 21:00 Nasal Cannula 3.0 05/26/19 20:13 93 Nasal Cannula 30 05/26/19 20:13 69 22 93 Bi-Pap 30 05/26/19 20:13 69 22 93 30 05/26/19 20:00 98.1 70 20 127/85 (99) 92 05/26/19 16:00 98.6 73 20 113/79 (90) 92 05/26/19 12:00 97.0 79 22 122/84 (97) 90 Intake and Output 05/26/19 05/27/19 19:00 07:00 Intake Total 240 ml Output Total 350 ml 700 ml Balance -110 ml -700 ml Intake Oral 240 ml Output Urine Total 350 ml 700 ml General Appearance: WD/WN HEENT: normocephalic Respiratory/Chest: chest wall non-tender, lungs clear Cardiovascular: normal peripheral pulses, normal rate Abdomen: normal bowel sounds, soft, non tender Genitourinary: normal external genitalia Extremities: no cyanosis Skin: no rash 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 Current Medications Medications (Trade) Dose Ordered Sig/Dejon Route PRN Reason Start Time Stop Time Status Last Admin Dose Admin Acetaminophen (Tylenol) 650 mg Q4H PRN ORAL Mild Pain/Temp > 100.5 05/21/19 18:14 06/15/19 18:13 05/22/19 09:41 Acetaminophen/ Hydrocodone Bitart ([place] 5/325) 1 tab Q6H PRN ORAL Severe Pain (Pain Scale 7-10) 05/21/19 22:15 05/28/19 22:14 05/27/19 06:47 Albuterol/ Ipratropium (Albuterol/ Ipratropium) 3 ml Q4HRT PRN HHN Shortness of breath 05/27/19 06:45 06/01/19 06:44 05/27/19 07:23 Apixaban (Eliquis) 5 mg BID ORAL 05/22/19 09:00 06/21/19 08:59 05/27/19 09:06 Clonidine HCl (Catapres Tab) 0.1 mg Q4H PRN ORAL sbp more than 160 05/21/19 18:14 05/31/19 18:13 Docusate Sodium (Colace) 100 mg TWICE A DAY ORAL 05/22/19 09:00 06/21/19 08:59 05/27/19 09:06 Escitalopram Oxalate (Lexapro) 10 mg DAILY ORAL 05/22/19 09:00 06/22/19 08:59 05/27/19 09:06 Levothyroxine Sodium (Synthroid) 100 mcg ACBREAKFAST ORAL 05/27/19 06:30 06/26/19 06:29 05/27/19 06:24 Nitroglycerin (Ntg) 0.4 mg Q5M X 3 DOSES PRN SL Prn Chest Pain 05/21/19 18:14 06/06/19 18:13 Ondansetron HCl (Zofran) 4 mg Q6H PRN IVP Nausea & Vomiting 05/21/19 18:15 05/31/19 18:14 Oxymetazoline HCl (Afrin Nasal [place]) 1 spray Q6H PRN NASAL nasal congestion 05/21/19 18:17 05/31/19 18:16 Pantoprazole (Protonix) 40 mg EVERY 12 HOURS ORAL 05/21/19 21:00 06/05/19 20:59 05/27/19 09:06 Polyethylene Glycol (Miralax) 17 gm BEDTIME ORAL 05/21/19 21:00 06/20/19 20:59 Promethazine HCl/ Codeine (Phenergan with Codeine) 5 ml Q6H PRN ORAL cough 05/21/19 18:15 05/31/19 18:14 Quetiapine Fumarate (SEROqueL) 25 mg EVERY 6 HOURS PRN ORAL For Anxiety 05/22/19 00:00 07/06/19 00:00 Tigecycline 50 mg/ Sodium Chloride 110 ml @ 220 mls/hr EVERY 12 HOURS IVPB 05/26/19 09:00 06/02/19 08:59 05/27/19 09:09 Voriconazole (Vfend) 200 mg EVERY 12 HOURS ORAL 05/21/19 21:00 05/27/19 12:59 05/27/19 09:06 Goldie Obrien MD May 27, 2019 11:55
[2019-05-27 12:00] VITALS: BP 121/79
--- NOTE | 2019-05-27 14:15 | Infectious Diseases Prog Note ---
Assessment/Plan Assessment/Plan Assessment: UCX : dale : colonizer COPD exacerbation , PNA, Sp -05/12 CXR: Bilateral interstitial disease, appearing similar to the previous exam,likely represents combination of senescent change and persistent or recurrent interstitial congestion -04/29 CXRLThere is bilateral interstitial congestion again demonstrated, appearing unchanged. No focal airspace consolidation. There is some atelectasis at the left lung base. -04/27 CXR: Borderline cardiomegaly. Questionable mild interstitial congestion , new or increased from previous study if real. -04/21 CTA chest:Somewhat limited exam, due to motion artifact. No definite evidence of pulmonary embolus or other acute thoracic vascular pathology. Borderline cardiomegaly. Diffuse bilateral pulmonary parenchymal groundglass opacity. Interspersed small bullae digestive this is due to COPD changes, but could also indicate a component of pulmonary edema. Considerable consolidation in the right lower lobe, likely pneumonia. Less extensive consolidation and atelectasis is seen at the left lung base. Pacemaker, degenerative spondylosis incidentally noted sp cx normal resp michael -04/19 CXR: Mild pulmonary vascular congestion -04/16 CXR: No acute disease -04/13 CXR: Suspected mild pulmonary vascular congestion. Correlate clinically -04/08 CXR: Mild pulmonary vascular congestion suspected Afebrile Leukocytosis,(pn steroids); improving HIV neg Hyperglycemia Acute hypoxic respiratory failure ,on bipap PRN COPD CAD CHF prostate cancer s/p PPM former smoker Plan: - Tygacil # 3( Dw PCP) - Vfend # 8( as per Pul) - 05/24 Sp Merrem # 5 - 05/22 Sp Amikacin INH # 12 - 05/05 Sp Ertapenem # / - 05/03 sp Vancomycin # 5 -04/28 SP Zosyn #8 -04/15 SP Levaquin #7 -04/08 SP Ceftriaxone x1, Azithromycin x1 -Monitor CBC/CMP, temperatures -aspiration precautions - Fungitell - Galctomannan Thank you for this consultation. Will continue to follow along with you. Subjective Allergies: Coded Allergies: No Known Allergies (Unverified , 10/24/16) Subjective afebrile no acute event Objective Vital Signs Last 24 Hour Vital Signs Date Time Temp Pulse Resp B/P (MAP) Pulse Ox O2 Delivery O2 Flow Rate FiO2 05/27/19 09:00 Nasal Cannula 3.0 05/27/19 08:00 97.3 84 20 120/86 (97) 91 05/27/19 07:24 94 Nasal Cannula 3.0 32 05/27/19 07:23 74 20 94 Nasal Cannula 3.0 32 05/27/19 04:00 97.6 71 20 115/79 (91) 91 05/27/19 00:59 70 18 93 30 05/27/19 00:00 97.9 72 22 102/69 (80) 90 05/26/19 22:30 64 17 96 30 05/26/19 21:00 Nasal Cannula 3.0 05/26/19 20:13 93 Nasal Cannula 30 05/26/19 20:13 69 22 93 Bi-Pap 30 05/26/19 20:13 69 22 93 30 05/26/19 20:00 98.1 70 20 127/85 (99) 92 05/26/19 16:00 98.6 73 20 113/79 (90) 92 Height (Feet): 6 Height (Inches): 0.00 Weight (Pounds): 210 Respiratory/Chest: lungs clear Cardiovascular: regularly irregular Abdomen: no organomegaly Current Medications Medications (Trade) Dose Ordered Sig/Dejon Route PRN Reason Start Time Stop Time Status Last Admin Dose Admin Acetaminophen (Tylenol) 650 mg Q4H PRN ORAL Mild Pain/Temp > 100.5 05/21/19 18:14 06/15/19 18:13 05/22/19 09:41 Acetaminophen/ Hydrocodone Bitart ([place] 5/325) 1 tab Q6H PRN ORAL Severe Pain (Pain Scale 7-10) 05/21/19 22:15 05/28/19 22:14 05/27/19 06:47 Albuterol/ Ipratropium (Albuterol/ Ipratropium) 3 ml Q4HRT PRN HHN Shortness of breath 05/27/19 06:45 06/01/19 06:44 05/27/19 07:23 Apixaban (Eliquis) 5 mg BID ORAL 05/22/19 09:00 06/21/19 08:59 05/27/19 09:06 Clonidine HCl (Catapres Tab) 0.1 mg Q4H PRN ORAL sbp more than 160 05/21/19 18:14 05/31/19 18:13 Docusate Sodium (Colace) 100 mg TWICE A DAY ORAL 05/22/19 09:00 06/21/19 08:59 05/27/19 09:06 Escitalopram Oxalate (Lexapro) 10 mg DAILY ORAL 05/22/19 09:00 06/22/19 08:59 05/27/19 09:06 Levothyroxine Sodium (Synthroid) 100 mcg ACBREAKFAST ORAL 05/27/19 06:30 06/26/19 06:29 05/27/19 06:24 Nitroglycerin (Ntg) 0.4 mg Q5M X 3 DOSES PRN SL Prn Chest Pain 05/21/19 18:14 06/06/19 18:13 Ondansetron HCl (Zofran) 4 mg Q6H PRN IVP Nausea & Vomiting 05/21/19 18:15 05/31/19 18:14 Oxymetazoline HCl (Afrin Nasal [place]) 1 spray Q6H PRN NASAL nasal congestion 05/21/19 18:17 05/31/19 18:16 Pantoprazole (Protonix) 40 mg EVERY 12 HOURS ORAL 05/21/19 21:00 06/05/19 20:59 05/27/19 09:06 Polyethylene Glycol (Miralax) 17 gm BEDTIME ORAL 05/21/19 21:00 06/20/19 20:59 Promethazine HCl/ Codeine (Phenergan with Codeine) 5 ml Q6H PRN ORAL cough 05/21/19 18:15 05/31/19 18:14 Quetiapine Fumarate (SEROqueL) 25 mg EVERY 6 HOURS PRN ORAL For Anxiety 05/22/19 00:00 07/06/19 00:00 Tigecycline 50 mg/ Sodium Chloride 110 ml @ 220 mls/hr EVERY 12 HOURS IVPB 05/26/19 09:00 06/02/19 08:59 05/27/19 09:09 Robert Canela MD May 27, 2019 14:15
--- NOTE | 2019-05-27 16:32 | Internal Med Progress Note ---
Subjective Date of Service: May 27, 2019 Physician Name BrittneyIdris Attending Physician Jewel Giraldo MD Current Medications Medications (Trade) Dose Ordered Sig/Dejon Route PRN Reason Start Time Stop Time Status Last Admin Dose Admin Acetaminophen (Tylenol) 650 mg Q4H PRN ORAL Mild Pain/Temp > 100.5 05/21/19 18:14 06/15/19 18:13 05/22/19 09:41 Acetaminophen/ Hydrocodone Bitart ([place] 5/325) 1 tab Q6H PRN ORAL Severe Pain (Pain Scale 7-10) 05/21/19 22:15 05/28/19 22:14 05/27/19 06:47 Albuterol/ Ipratropium (Albuterol/ Ipratropium) 3 ml Q4HRT PRN HHN Shortness of breath 05/27/19 06:45 06/01/19 06:44 05/27/19 07:23 Apixaban (Eliquis) 5 mg BID ORAL 05/22/19 09:00 06/21/19 08:59 05/27/19 09:06 Clonidine HCl (Catapres Tab) 0.1 mg Q4H PRN ORAL sbp more than 160 05/21/19 18:14 05/31/19 18:13 Docusate Sodium (Colace) 100 mg TWICE A DAY ORAL 05/22/19 09:00 06/21/19 08:59 05/27/19 09:06 Escitalopram Oxalate (Lexapro) 10 mg DAILY ORAL 05/22/19 09:00 06/22/19 08:59 05/27/19 09:06 Levothyroxine Sodium (Synthroid) 100 mcg ACBREAKFAST ORAL 05/27/19 06:30 06/26/19 06:29 05/27/19 06:24 Nitroglycerin (Ntg) 0.4 mg Q5M X 3 DOSES PRN SL Prn Chest Pain 05/21/19 18:14 06/06/19 18:13 Ondansetron HCl (Zofran) 4 mg Q6H PRN IVP Nausea & Vomiting 05/21/19 18:15 05/31/19 18:14 Oxymetazoline HCl (Afrin Nasal [place]) 1 spray Q6H PRN NASAL nasal congestion 05/21/19 18:17 3/23/20 18:16 Pantoprazole (Protonix) 40 mg EVERY 12 HOURS ORAL 05/21/19 21:00 06/05/19 20:59 05/27/19 09:06 Polyethylene Glycol (Miralax) 17 gm BEDTIME ORAL 05/21/19 21:00 06/20/19 20:59 Promethazine HCl/ Codeine (Phenergan with Codeine) 5 ml Q6H PRN ORAL cough 05/21/19 18:15 05/31/19 18:14 Quetiapine Fumarate (SEROqueL) 25 mg EVERY 6 HOURS PRN ORAL For Anxiety 05/22/19 00:00 07/06/19 00:00 Tigecycline 50 mg/ Sodium Chloride 110 ml @ 220 mls/hr EVERY 12 HOURS IVPB 05/26/19 09:00 06/02/19 08:59 05/27/19 09:09 Allergies: Coded Allergies: No Known Allergies (Unverified , 10/24/16) ROS Limited/Unobtainable: No Constitutional: Reports: no symptoms HEENT: Reports: no symptoms Cardiovascular: Reports: no symptoms Respiratory: Reports: shortness of breath Gastrointestinal/Abdominal: Reports: no symptoms Genitourinary: Reports: no symptoms Neurologic/Psychiatric: Reports: no symptoms Subjective 73 YO M admitted with COPD exacerbation. Now respiratory failure and pneumonia. Cover for [facility]-DR Giraldo. S/P endoscopy 05/06/19. Off BIPAP. Objective Last Vital Signs Date Time Temp Pulse Resp B/P (MAP) Pulse Ox O2 Delivery O2 Flow Rate FiO2 05/27/19 12:00 97.5 71 20 121/79 (93) 95 05/27/19 09:00 Nasal Cannula 3.0 05/27/19 07:24 32 Intake and Output 05/26/19 05/27/19 19:00 07:00 Intake Total 240 ml Output Total 350 ml 700 ml Balance -110 ml -700 ml Intake Oral 240 ml Output Urine Total 350 ml 700 ml Objective PHYSICAL EXAMINATION: GENERAL: The patient is awake, responsive, no acute distress. HEAD AND NECK: Pupils are equal and reactive to light. Extraocular muscles intact. Neck was supple. No JVD. LUNGS: Nasal canula;The patient has expiratory wheezes noted. Tachypneic. No rhonchi was noted. HEART: S1, S2. Irregular. No murmur. The patient has a pacemaker in the left-sided chest wall. ABDOMEN: Soft, nondistended, nontender. Mildly obese. EXTREMITIES: No cyanosis, clubbing, edema. NEUROLOGIC: Cranial nerves II through XII grossly normal. Motor is 5/5 in all extremities. Gait is intact. GENITOURINARY: It was noted the patient has a [place] catheter. RECTAL: Refused and deferred. PSYCHIATRIC: Mood and affect is intact. Assessment/Plan Assessment/Plan ASSESSMENT: 1. Acute hypoxemic respiratory failure, most likely secondary to acute COPD exacerbation. 2. Acute COPD exacerbation. 3. Pneumonia. 4. Sick sinus syndrome status post pacemaker. 5. Diabetes type 2. 6. Prostate cancer. 7. Hyperkalemia. 8. Insulin induced hyperglycemia. 9. Prostate enlargement. 10. Leukocytosis 11. RBBB 12 Gastritis PLAN: 1. Med/Surg 2. D/C Solu-Medrol IV Per Pulmonary consult=Dr. Obrien. 3. Endocrinology=Dr To. Monitor blood glucose level closely. 4. antibiotic= inhaled amikacin; S/P ertapenem and vanco. ID=Dr Villa 5. Code status is Full Code. DVT prophylaxis, he is on Eliquis. 6. S/P endoscopy 05/06/19=gastritis Idris Lugo MD May 27, 2019 16:32
[2019-05-27 19:55] VITALS: BP 121/80
[2019-05-27] MEDS: Miralax 17gm pkt ORAL SCH (20:21)
[2019-05-28] MEDS: HYDROcodone/Acetamin 5/325 tab ORAL PRN (06:23)
--- NOTE | 2019-05-28 07:46 | General Progress Note ---
Assessment/Plan Problem List: (1) Diabetes mellitus ICD Codes: E11.9 - Type 2 diabetes mellitus without complications SNOMED: 78580325 (2) Respiratory failure with hypoxia ICD Codes: J96.91 - Respiratory failure, unspecified with hypoxia SNOMED: 72064634115718870 (3) COPD exacerbation ICD Codes: J44.1 - Chronic obstructive pulmonary disease with (acute) exacerbation SNOMED: 553038559 (4) Hypothyroid ICD Codes: E03.9 - Hypothyroidism, unspecified SNOMED: 92121952 (5) Pacemaker ICD Codes: Z95.0 - Presence of cardiac pacemaker SNOMED: 318298555 (6) Prostate cancer ICD Codes: C61 - Malignant neoplasm of prostate SNOMED: 421477454 Status: stable, not improved, deteriorating Assessment/Plan: s/p EGD stable H&H needs out patient fu fo colonoscopy repeat stool ob pending good po intake fu pulm recs abx fu labs Subjective ROS Limited/Unobtainable: No Allergies: Coded Allergies: No Known Allergies (Unverified , 10/24/16) Objective Last 24 Hour Vital Signs Date Time Temp Pulse Resp B/P (MAP) Pulse Ox O2 Delivery O2 Flow Rate FiO2 05/27/19 21:00 Nasal Cannula 3.0 05/27/19 19:55 97.8 69 18 121/80 (94) 90 05/27/19 12:00 97.5 71 20 121/79 (93) 95 05/27/19 09:00 Nasal Cannula 3.0 05/27/19 08:00 97.3 84 20 120/86 (97) 91 Intake and Output 05/27/19 05/28/19 19:00 07:00 Intake Total 800 ml 840 ml Output Total 1200 ml 1000 ml Balance -400 ml -160 ml Intake Oral 800 ml 840 ml Output Urine Total 1200 ml 1000 ml # Bowel Movements 1 Height (Feet): 6 Height (Inches): 0.00 Weight (Pounds): 210 General Appearance: no apparent distress EENT: normal ENT inspection Neck: supple Cardiovascular: normal rate Respiratory/Chest: decreased breath sounds Abdomen: normal bowel sounds, non tender, soft Extremities: non-tender Christiano La MD May 28, 2019 07:46
[2019-05-28 08:00] VITALS: BP 126/80
[2019-05-28] MEDS: Tigecycline 50 MG in NS 110 ML IVPB SCH ×2 (09:02→21:35)
[2019-05-28] MEDS: Eliquis 5mg tablet ORAL SCH ×2 (09:04→18:00)
[2019-05-28] MEDS: Docusate 100mg cap ORAL SCH ×2 (09:04→18:00)
--- NOTE | 2019-05-28 10:44 | Infectious Diseases Prog Note ---
Assessment/Plan Assessment/Plan Assessment: UCX : dale : colonizer COPD exacerbation , PNA, Sp -05/12 CXR: Bilateral interstitial disease, appearing similar to the previous exam,likely represents combination of senescent change and persistent or recurrent interstitial congestion -04/29 CXRLThere is bilateral interstitial congestion again demonstrated, appearing unchanged. No focal airspace consolidation. There is some atelectasis at the left lung base. -04/27 CXR: Borderline cardiomegaly. Questionable mild interstitial congestion , new or increased from previous study if real. -04/21 CTA chest:Somewhat limited exam, due to motion artifact. No definite evidence of pulmonary embolus or other acute thoracic vascular pathology. Borderline cardiomegaly. Diffuse bilateral pulmonary parenchymal groundglass opacity. Interspersed small bullae digestive this is due to COPD changes, but could also indicate a component of pulmonary edema. Considerable consolidation in the right lower lobe, likely pneumonia. Less extensive consolidation and atelectasis is seen at the left lung base. Pacemaker, degenerative spondylosis incidentally noted sp cx normal resp michael -04/19 CXR: Mild pulmonary vascular congestion -04/16 CXR: No acute disease -04/13 CXR: Suspected mild pulmonary vascular congestion. Correlate clinically -04/08 CXR: Mild pulmonary vascular congestion suspected Afebrile Leukocytosis,(pn steroids); improving HIV neg Hyperglycemia Acute hypoxic respiratory failure ,on bipap PRN COPD CAD CHF prostate cancer s/p PPM former smoker Plan: - Tygacil # 4/ (empirical Rx ) - 05/27 SP - Vfend # 9 (as per pul ) - 05/24 Sp Merrem # 5 - 05/22 Sp Amikacin INH # 12 - 05/05 Sp Ertapenem # / - 05/03 sp Vancomycin # 5 -04/28 SP Zosyn #8 -04/15 SP Levaquin #7 -04/08 SP Ceftriaxone x1, Azithromycin x1 - Monitor CBC/CMP, temperatures -aspiration precautions - Fungitell - Galctomannan Thank you for this consultation. Will continue to follow along with you. Subjective Allergies: Coded Allergies: No Known Allergies (Unverified , 10/24/16) Subjective afebrile no acute event Objective Vital Signs Last 24 Hour Vital Signs Date Time Temp Pulse Resp B/P (MAP) Pulse Ox O2 Delivery O2 Flow Rate FiO2 05/28/19 09:00 Nasal Cannula 3.0 3/20/20 08:08 81 22 92 Nasal Cannula 3.0 32 05/28/19 08:07 92 Nasal Cannula 3.0 32 05/28/19 08:00 97.3 70 22 126/80 (95) 91 05/27/19 21:00 Nasal Cannula 3.0 05/27/19 19:55 97.8 69 18 121/80 (94) 90 05/27/19 12:00 97.5 71 20 121/79 (93) 95 Height (Feet): 6 Height (Inches): 0.00 Weight (Pounds): 210 HEENT: anicteric Respiratory/Chest: no respiratory distress Cardiovascular: regular rhythm Abdomen: no organomegaly Current Medications Medications (Trade) Dose Ordered Sig/Dejon Route PRN Reason Start Time Stop Time Status Last Admin Dose Admin Acetaminophen (Tylenol) 650 mg Q4H PRN ORAL Mild Pain/Temp > 100.5 05/21/19 18:14 06/15/19 18:13 05/28/19 09:10 Acetaminophen/ Hydrocodone Bitart ([place] 5/325) 1 tab Q6H PRN ORAL Severe Pain (Pain Scale 7-10) 05/21/19 22:15 05/28/19 22:14 05/28/19 06:23 Albuterol/ Ipratropium (Albuterol/ Ipratropium) 3 ml Q4HRT PRN HHN Shortness of breath 05/27/19 06:45 06/01/19 06:44 05/27/19 07:23 Apixaban (Eliquis) 5 mg BID ORAL 05/22/19 09:00 06/21/19 08:59 05/28/19 09:04 Clonidine HCl (Catapres Tab) 0.1 mg Q4H PRN ORAL sbp more than 160 05/21/19 18:14 05/31/19 18:13 Docusate Sodium (Colace) 100 mg TWICE A DAY ORAL 05/22/19 09:00 06/21/19 08:59 05/28/19 09:04 Escitalopram Oxalate (Lexapro) 10 mg DAILY ORAL 05/22/19 09:00 06/22/19 08:59 05/28/19 09:04 Levothyroxine Sodium (Synthroid) 100 mcg ACBREAKFAST ORAL 05/27/19 06:30 06/26/19 06:29 05/28/19 06:22 Nitroglycerin (Ntg) 0.4 mg Q5M X 3 DOSES PRN SL Prn Chest Pain 05/21/19 18:14 06/06/19 18:13 Ondansetron HCl (Zofran) 4 mg Q6H PRN IVP Nausea & Vomiting 05/21/19 18:15 05/31/19 18:14 Oxymetazoline HCl (Afrin Nasal [place]) 1 spray Q6H PRN NASAL nasal congestion 05/21/19 18:17 05/31/19 18:16 Pantoprazole (Protonix) 40 mg EVERY 12 HOURS ORAL 05/21/19 21:00 06/05/19 20:59 05/28/19 09:04 Polyethylene Glycol (Miralax) 17 gm BEDTIME ORAL 05/21/19 21:00 06/20/19 20:59 Promethazine HCl/ Codeine (Phenergan with Codeine) 5 ml Q6H PRN ORAL cough 05/21/19 18:15 05/31/19 18:14 Quetiapine Fumarate (SEROqueL) 25 mg EVERY 6 HOURS PRN ORAL For Anxiety 05/22/19 00:00 07/06/19 00:00 Tigecycline 50 mg/ Sodium Chloride 110 ml @ 220 mls/hr EVERY 12 HOURS IVPB 05/26/19 09:00 06/02/19 08:59 05/28/19 09:02 Robert Canela MD May 28, 2019 10:43
[2019-05-28 12:00] VITALS: BP 117/77
[2019-05-28 16:00] VITALS: BP 126/80
[2019-05-28 20:00] VITALS: BP 116/82
[2019-05-28] MEDS: Miralax 17gm pkt ORAL SCH (21:00)
--- NOTE | 2019-05-28 21:45 | Progress Note ---
DATE: 05/28/2019 SUBJECTIVE: The patient is the same, awaiting placement, irritable and has poor insight into his current condition. MENTAL STATUS EXAMINATION: The patient is alert, oriented times self, place, situation. Mood is irritable. Affect is constricted. Congruent with mood. Thought process is concrete. Thought content, no suicidal or homicidal ideation. Cognition is impaired. ASSESSMENT: Stable. PLAN: 1. We will continue current medications. 2. Provide the patient with reality orientation. Ottoniel Hillman M.D. DR: Dawood JOB#: [id number] CC:
--- NOTE | 2019-05-28 23:10 | Internal Med Progress Note ---
Subjective Physician Name Jewel Giraldo Attending Physician Jewel Giraldo MD Current Medications Medications (Trade) Dose Ordered Sig/Dejon Route PRN Reason Start Time Stop Time Status Last Admin Dose Admin Acetaminophen (Tylenol) 650 mg Q4H PRN ORAL Mild Pain/Temp > 100.5 05/21/19 18:14 06/15/19 18:13 05/28/19 09:10 Albuterol/ Ipratropium (Albuterol/ Ipratropium) 3 ml Q4HRT PRN HHN Shortness of breath 05/27/19 06:45 06/01/19 06:44 05/27/19 07:23 Apixaban (Eliquis) 5 mg BID ORAL 05/22/19 09:00 06/21/19 08:59 05/28/19 18:00 Clonidine HCl (Catapres Tab) 0.1 mg Q4H PRN ORAL sbp more than 160 05/21/19 18:14 05/31/19 18:13 Docusate Sodium (Colace) 100 mg TWICE A DAY ORAL 05/22/19 09:00 06/21/19 08:59 05/28/19 18:00 Escitalopram Oxalate (Lexapro) 10 mg DAILY ORAL 05/22/19 09:00 06/22/19 08:59 05/28/19 09:04 Levothyroxine Sodium (Synthroid) 100 mcg ACBREAKFAST ORAL 05/27/19 06:30 06/26/19 06:29 05/28/19 06:22 Nitroglycerin (Ntg) 0.4 mg Q5M X 3 DOSES PRN SL Prn Chest Pain 05/21/19 18:14 06/06/19 18:13 Ondansetron HCl (Zofran) 4 mg Q6H PRN IVP Nausea & Vomiting 05/21/19 18:15 05/31/19 18:14 05/28/19 21:35 Oxymetazoline HCl (Afrin Nasal [place]) 1 spray Q6H PRN NASAL nasal congestion 05/21/19 18:17 05/31/19 18:16 Pantoprazole (Protonix) 40 mg EVERY 12 HOURS ORAL 05/21/19 21:00 06/05/19 20:59 05/28/19 21:35 Polyethylene Glycol (Miralax) 17 gm BEDTIME ORAL 05/21/19 21:00 06/20/19 20:59 Promethazine HCl/ Codeine (Phenergan with Codeine) 5 ml Q6H PRN ORAL cough 05/21/19 18:15 05/31/19 18:14 Quetiapine Fumarate (SEROqueL) 25 mg EVERY 6 HOURS PRN ORAL For Anxiety 05/22/19 00:00 07/06/19 00:00 Tigecycline 50 mg/ Sodium Chloride 110 ml @ 220 mls/hr EVERY 12 HOURS IVPB 05/26/19 09:00 06/02/19 08:59 05/28/19 21:35 Allergies: Coded Allergies: No Known Allergies (Unverified , 10/24/16) Subjective Awake, alert, responsive, No CP, less SOB and wheezing. Objective Last Vital Signs Date Time Temp Pulse Resp B/P (MAP) Pulse Ox O2 Delivery O2 Flow Rate FiO2 05/28/19 20:00 98.4 70 20 116/82 (93) 94 05/28/19 19:20 Nasal Cannula 3.0 32 Intake and Output 05/27/19 05/28/19 19:00 07:00 Intake Total 800 ml 840 ml Output Total 1200 ml 1000 ml Balance -400 ml -160 ml Intake Oral 800 ml 840 ml Output Urine Total 1200 ml 1000 ml # Bowel Movements 1 Objective GENERAL: Awake, responsive, no acute distress. HEAD AND NECK: Pupils are equal and reactive to light. Extraocular muscles intact. Neck was supple. No JVD. LUNGS: Decrease air entry at bases. + Expiratory wheezes, No rales. HEART: S1, S2. Irregular. No murmur. pacemaker in the left-sided chest wall. ABDOMEN: Soft, nondistended, nontender. Morbid obesely. EXTREMITIES: No cyanosis, clubbing, edema. NEUROLOGIC: Cranial nerves II through XII grossly normal. Motor is 5/5 in all extremities. Gait is intact. RECTAL: Refused and deferred. PSYCHIATRIC: Mood and affect is intact. Assessment/Plan Assessment/Plan ASSESSMENT: 1. Acute hypoxemic respiratory failure, most likely secondary to acute COPD exacerbation. 2. Acute COPD exacerbation. 3. Pneumonia. 4. Sick sinus syndrome status post pacemaker. 5. Diabetes type 2. 6. Prostate cancer. 7. Hyperkalemia. 8. Insulin induced hyperglycemia. 9. Prostate enlargement. PLAN: broad-spectrum antibiotic : Tygacil # 4/7 Code status is Full Code. DVT prophylaxis: Eliquis. monitor cultures and laboratory. Follow up with Dr. Goldie Obrien, Pulmonary Critical Care consultation. Jewel Giraldo MD May 28, 2019 23:10
[2019-05-29] VITALS: BP 112/80
[2019-05-29 04:00] VITALS: BP 117/78
[2019-05-29 08:00] VITALS: BP 119/91
[2019-05-29] MEDS: Docusate 100mg cap ORAL SCH ×2 (08:41→17:21)
[2019-05-29] MEDS: Eliquis 5mg tablet ORAL SCH ×2 (08:41→17:21)
[2019-05-29] MEDS: Tigecycline 50 MG in NS 110 ML IVPB SCH ×2 (08:41→20:55)
--- NOTE | 2019-05-29 09:23 | General Progress Note ---
Assessment/Plan Problem List: (1) Diabetes mellitus ICD Codes: E11.9 - Type 2 diabetes mellitus without complications SNOMED: 32195338 (2) Respiratory failure with hypoxia ICD Codes: J96.91 - Respiratory failure, unspecified with hypoxia SNOMED: 62982035415970353 (3) COPD exacerbation ICD Codes: J44.1 - Chronic obstructive pulmonary disease with (acute) exacerbation SNOMED: 659957074 (4) Hypothyroid ICD Codes: E03.9 - Hypothyroidism, unspecified SNOMED: 09570999 (5) Pacemaker ICD Codes: Z95.0 - Presence of cardiac pacemaker SNOMED: 857480159 (6) Prostate cancer ICD Codes: C61 - Malignant neoplasm of prostate SNOMED: 254534584 Status: stable, not improved, deteriorating Assessment/Plan: s/p EGD stable H&H needs out patient fu fo colonoscopy repeat stool ob pending good po intake fu pulm recs abx fu labs Subjective Allergies: Coded Allergies: No Known Allergies (Unverified , 10/24/16) Objective Last 24 Hour Vital Signs Date Time Temp Pulse Resp B/P (MAP) Pulse Ox O2 Delivery O2 Flow Rate FiO2 05/29/19 04:00 97.8 74 19 117/78 (91) 74 05/29/19 00:00 97.8 82 20 112/80 (91) 82 05/28/19 21:00 Nasal Cannula 3.0 05/28/19 20:00 98.4 70 20 116/82 (93) 94 05/28/19 19:20 93 Nasal Cannula 3.0 32 05/28/19 19:20 83 20 93 Nasal Cannula 3.0 32 05/28/19 16:00 97.3 70 22 126/80 (95) 91 05/28/19 12:00 98.1 64 22 117/77 (90) 93 Intake and Output 05/28/19 05/29/19 19:00 07:00 Intake Total 300 ml Output Total 1000 ml Balance -1000 ml 300 ml Intake Oral 300 ml Output Urine Total 1000 ml # Voids 1 # Bowel Movements 1 Height (Feet): 6 Height (Inches): 0.00 Weight (Pounds): 210 General Appearance: alert EENT: normal ENT inspection Neck: supple Cardiovascular: normal rate Respiratory/Chest: decreased breath sounds Abdomen: normal bowel sounds, non tender, soft Extremities: non-tender Vosoghi,Christiano MD May 29, 2019 09:23
--- NOTE | 2019-05-29 10:13 | Infectious Diseases Prog Note ---
Assessment/Plan Assessment/Plan Assessment: UCX : dale : colonizer COPD exacerbation , PNA, Sp -05/12 CXR: Bilateral interstitial disease, appearing similar to the previous exam,likely represents combination of senescent change and persistent or recurrent interstitial congestion -04/29 CXRLThere is bilateral interstitial congestion again demonstrated, appearing unchanged. No focal airspace consolidation. There is some atelectasis at the left lung base. -04/27 CXR: Borderline cardiomegaly. Questionable mild interstitial congestion , new or increased from previous study if real. -04/21 CTA chest:Somewhat limited exam, due to motion artifact. No definite evidence of pulmonary embolus or other acute thoracic vascular pathology. Borderline cardiomegaly. Diffuse bilateral pulmonary parenchymal groundglass opacity. Interspersed small bullae digestive this is due to COPD changes, but could also indicate a component of pulmonary edema. Considerable consolidation in the right lower lobe, likely pneumonia. Less extensive consolidation and atelectasis is seen at the left lung base. Pacemaker, degenerative spondylosis incidentally noted sp cx normal resp michael -04/19 CXR: Mild pulmonary vascular congestion -04/16 CXR: No acute disease -04/13 CXR: Suspected mild pulmonary vascular congestion. Correlate clinically -04/08 CXR: Mild pulmonary vascular congestion suspected Afebrile Leukocytosis,(pn steroids); improving HIV neg Hyperglycemia Acute hypoxic respiratory failure ,on bipap PRN COPD CAD CHF prostate cancer s/p PPM former smoker Plan: - Tygacil # 5/ (empirical Rx ) - 05/27 SP - Vfend # 9 (as per pul ) - 05/24 Sp Merrem # 5 - 05/22 Sp Amikacin INH # 12 - 05/05 Sp Ertapenem # / - 05/03 sp Vancomycin # 5 -04/28 SP Zosyn #8 -04/15 SP Levaquin #7 -04/08 SP Ceftriaxone x1, Azithromycin x1 - Monitor CBC/CMP, temperatures -aspiration precautions - Fungitell - Galctomannan Thank you for this consultation. Will continue to follow along with you. Subjective Allergies: Coded Allergies: No Known Allergies (Unverified , 10/24/16) Subjective Afebrile 3L NC No Leukocytosis Objective Vital Signs Last 24 Hour Vital Signs Date Time Temp Pulse Resp B/P (MAP) Pulse Ox O2 Delivery O2 Flow Rate FiO2 05/29/19 09:29 92 Nasal Cannula 3.0 32 05/29/19 09:29 89 20 92 Nasal Cannula 3.0 32 05/29/19 08:00 97.9 104 20 119/91 (100) 92 05/29/19 04:00 97.8 74 19 117/78 (91) 74 05/29/19 00:00 97.8 82 20 112/80 (91) 82 05/28/19 21:00 Nasal Cannula 3.0 05/28/19 20:00 98.4 70 20 116/82 (93) 94 05/28/19 19:20 93 Nasal Cannula 3.0 32 05/28/19 19:20 83 20 93 Nasal Cannula 3.0 32 05/28/19 16:00 97.3 70 22 126/80 (95) 91 05/28/19 12:00 98.1 64 22 117/77 (90) 93 Height (Feet): 6 Height (Inches): 0.00 Weight (Pounds): 210 Objective General : NAD HEENT: normocephalic, atraumatic, MMM Respiratory/Chest: bibasilar ronchi Cardiovascular/Chest: RRR, S1, S2 Current Medications Medications (Trade) Dose Ordered Sig/Dejon Route PRN Reason Start Time Stop Time Status Last Admin Dose Admin Acetaminophen (Tylenol) 650 mg Q4H PRN ORAL Mild Pain/Temp > 100.5 05/21/19 18:14 06/15/19 18:13 05/29/19 02:45 Albuterol/ Ipratropium (Albuterol/ Ipratropium) 3 ml Q4HRT PRN HHN Shortness of breath 05/27/19 06:45 06/01/19 06:44 05/27/19 07:23 Apixaban (Eliquis) 5 mg BID ORAL 05/22/19 09:00 06/21/19 08:59 05/29/19 08:41 Clonidine HCl (Catapres Tab) 0.1 mg Q4H PRN ORAL sbp more than 160 05/21/19 18:14 05/31/19 18:13 Docusate Sodium (Colace) 100 mg TWICE A DAY ORAL 05/22/19 09:00 06/21/19 08:59 05/29/19 08:41 Escitalopram Oxalate (Lexapro) 10 mg DAILY ORAL 05/22/19 09:00 06/22/19 08:59 05/29/19 08:41 Levothyroxine Sodium (Synthroid) 100 mcg ACBREAKFAST ORAL 05/27/19 06:30 06/26/19 06:29 05/29/19 06:23 Nitroglycerin (Ntg) 0.4 mg Q5M X 3 DOSES PRN SL Prn Chest Pain 05/21/19 18:14 06/06/19 18:13 Ondansetron HCl (Zofran) 4 mg Q6H PRN IVP Nausea & Vomiting 05/21/19 18:15 05/31/19 18:14 05/28/19 21:35 Oxymetazoline HCl (Afrin Nasal [place]) 1 spray Q6H PRN NASAL nasal congestion 05/21/19 18:17 05/31/19 18:16 Pantoprazole (Protonix) 40 mg EVERY 12 HOURS ORAL 05/21/19 21:00 06/05/19 20:59 05/29/19 08:41 Polyethylene Glycol (Miralax) 17 gm BEDTIME ORAL 05/21/19 21:00 06/20/19 20:59 Promethazine HCl/ Codeine (Phenergan with Codeine) 5 ml Q6H PRN ORAL cough 05/21/19 18:15 05/31/19 18:14 Quetiapine Fumarate (SEROqueL) 25 mg EVERY 6 HOURS PRN ORAL For Anxiety 05/22/19 00:00 07/06/19 00:00 Tigecycline 50 mg/ Sodium Chloride 110 ml @ 220 mls/hr EVERY 12 HOURS IVPB 05/26/19 09:00 06/02/19 08:59 05/29/19 08:41 Michele Jose MD May 29, 2019 10:13
[2019-05-29 12:00] VITALS: BP 117/80
--- NOTE | 2019-05-29 14:33 | Internal Med Progress Note ---
Subjective Date of Service: May 29, 2019 Physician Name Idris Lugo Attending Physician Jewel Giraldo MD Current Medications Medications (Trade) Dose Ordered Sig/Dejon Route PRN Reason Start Time Stop Time Status Last Admin Dose Admin Acetaminophen (Tylenol) 650 mg Q4H PRN ORAL Mild Pain/Temp > 100.5 05/21/19 18:14 06/15/19 18:13 05/29/19 13:04 Albuterol/ Ipratropium (Albuterol/ Ipratropium) 3 ml Q4HRT PRN HHN Shortness of breath 05/27/19 06:45 06/01/19 06:44 05/27/19 07:23 Apixaban (Eliquis) 5 mg BID ORAL 05/22/19 09:00 06/21/19 08:59 05/29/19 08:41 Clonidine HCl (Catapres Tab) 0.1 mg Q4H PRN ORAL sbp more than 160 05/21/19 18:14 05/31/19 18:13 Docusate Sodium (Colace) 100 mg TWICE A DAY ORAL 05/22/19 09:00 06/21/19 08:59 05/29/19 08:41 Escitalopram Oxalate (Lexapro) 10 mg DAILY ORAL 05/22/19 09:00 06/22/19 08:59 05/29/19 08:41 Levothyroxine Sodium (Synthroid) 100 mcg ACBREAKFAST ORAL 05/27/19 06:30 06/26/19 06:29 05/29/19 06:23 Nitroglycerin (Ntg) 0.4 mg Q5M X 3 DOSES PRN SL Prn Chest Pain 05/21/19 18:14 06/06/19 18:13 Ondansetron HCl (Zofran) 4 mg Q6H PRN IVP Nausea & Vomiting 05/21/19 18:15 05/31/19 18:14 05/28/19 21:35 Oxymetazoline HCl (Afrin Nasal [place]) 1 spray Q6H PRN NASAL nasal congestion 05/21/19 18:17 05/31/19 18:16 Pantoprazole (Protonix) 40 mg EVERY 12 HOURS ORAL 05/21/19 21:00 06/05/19 20:59 05/29/19 08:41 Polyethylene Glycol (Miralax) 17 gm BEDTIME ORAL 05/21/19 21:00 06/20/19 20:59 Promethazine HCl/ Codeine (Phenergan with Codeine) 5 ml Q6H PRN ORAL cough 05/21/19 18:15 05/31/19 18:14 Quetiapine Fumarate (SEROqueL) 25 mg EVERY 6 HOURS PRN ORAL For Anxiety 05/22/19 00:00 07/06/19 00:00 Tigecycline 50 mg/ Sodium Chloride 110 ml @ 220 mls/hr EVERY 12 HOURS IVPB 05/26/19 09:00 06/02/19 08:59 05/29/19 08:41 Allergies: Coded Allergies: No Known Allergies (Unverified , 10/24/16) ROS Limited/Unobtainable: No Constitutional: Reports: no symptoms HEENT: Reports: no symptoms Cardiovascular: Reports: no symptoms Respiratory: Reports: shortness of breath Gastrointestinal/Abdominal: Reports: no symptoms Genitourinary: Reports: no symptoms Neurologic/Psychiatric: Reports: no symptoms Subjective 73 YO M admitted with COPD exacerbation. Now respiratory failure and pneumonia. Cover for Int Med-DR Giraldo. S/P endoscopy 05/06/19. Off BIPAP. Objective Last Vital Signs Date Time Temp Pulse Resp B/P (MAP) Pulse Ox O2 Delivery O2 Flow Rate FiO2 05/29/19 12:00 97.3 82 18 117/80 (92) 92 05/29/19 09:29 Nasal Cannula 3.0 32 Intake and Output 05/28/19 05/29/19 19:00 07:00 Intake Total 300 ml Output Total 1000 ml Balance -1000 ml 300 ml Intake Oral 300 ml Output Urine Total 1000 ml # Voids 1 # Bowel Movements 1 Objective PHYSICAL EXAMINATION: GENERAL: The patient is awake, responsive, no acute distress. HEAD AND NECK: Pupils are equal and reactive to light. Extraocular muscles intact. Neck was supple. No JVD. LUNGS: Nasal canula;The patient has expiratory wheezes noted. Tachypneic. No rhonchi was noted. HEART: S1, S2. Irregular. No murmur. The patient has a pacemaker in the left-sided chest wall. ABDOMEN: Soft, nondistended, nontender. Mildly obese. EXTREMITIES: No cyanosis, clubbing, edema. NEUROLOGIC: Cranial nerves II through XII grossly normal. Motor is 5/5 in all extremities. Gait is intact. GENITOURINARY: It was noted the patient has a Montgomery catheter. RECTAL: Refused and deferred. PSYCHIATRIC: Mood and affect is intact. Assessment/Plan Assessment/Plan ASSESSMENT: 1. Acute hypoxemic respiratory failure, most likely secondary to acute COPD exacerbation. 2. Acute COPD exacerbation. 3. Pneumonia. 4. Sick sinus syndrome status post pacemaker. 5. Diabetes type 2. 6. Prostate cancer. 7. Hyperkalemia. 8. Insulin induced hyperglycemia. 9. Prostate enlargement. 10. Leukocytosis 11. RBBB 12 Gastritis PLAN: 1. Med/Surg 2. D/C Solu-Medrol IV Per Pulmonary consult=Dr. Obrien. 3. Endocrinology=Dr To. Monitor blood glucose level closely. 4. antibiotic= tegecycline. ID=Dr Villa 5. Code status is Full Code. DVT prophylaxis, he is on Eliquis. 6. S/P endoscopy 05/06/19=gastritis Idris Lugo MD May 29, 2019 14:33
[2019-05-29 16:00] VITALS: BP 120/70
[2019-05-29] MEDS: HYDROcodone/Acetamin 5/325 tab ORAL PRN (19:21)
[2019-05-29] MEDS: Albuterol/Ipratropium 3ml neb HHN PRN (19:49)
[2019-05-29 20:00] VITALS: BP 129/81
[2019-05-29] MEDS: Miralax 17gm pkt ORAL SCH (21:00)
[2019-05-30 00:30] VITALS: BP 118/83
[2019-05-30] MEDS: HYDROcodone/Acetamin 5/325 tab ORAL PRN ×3 (01:26→17:35)
--- NOTE | 2019-05-30 07:27 | General Progress Note ---
Assessment/Plan Problem List: (1) Diabetes mellitus ICD Codes: E11.9 - Type 2 diabetes mellitus without complications SNOMED: 94873212 (2) Respiratory failure with hypoxia ICD Codes: J96.91 - Respiratory failure, unspecified with hypoxia SNOMED: 09253084735420544 (3) COPD exacerbation ICD Codes: J44.1 - Chronic obstructive pulmonary disease with (acute) exacerbation SNOMED: 264577194 (4) Hypothyroid ICD Codes: E03.9 - Hypothyroidism, unspecified SNOMED: 30512156 (5) Pacemaker ICD Codes: Z95.0 - Presence of cardiac pacemaker SNOMED: 550178680 (6) Prostate cancer ICD Codes: C61 - Malignant neoplasm of prostate SNOMED: 151617165 Status: stable, not improved, deteriorating Assessment/Plan: s/p EGD stable H&H needs out patient fu fo colonoscopy repeat stool ob pending good po intake fu pulm recs abx fu labs Subjective Allergies: Coded Allergies: No Known Allergies (Unverified , 10/24/16) Objective Last 24 Hour Vital Signs Date Time Temp Pulse Resp B/P (MAP) Pulse Ox O2 Delivery O2 Flow Rate FiO2 05/30/19 03:26 70 20 94 30 05/30/19 01:40 72 21 92 30 05/30/19 00:30 97.4 70 18 118/83 (95) 91 05/29/19 21:00 Nasal Cannula 3.0 05/29/19 20:00 97.9 74 18 129/81 (97) 94 05/29/19 19:52 92 Nasal Cannula 3.0 32 05/29/19 19:51 67 20 92 Nasal Cannula 3.0 32 05/29/19 19:49 72 20 95 Nasal Cannula 3.0 32 67 20 92 05/29/19 16:00 98.1 100 18 120/70 (87) 94 05/29/19 13:34 97.3 05/29/19 12:00 97.3 82 18 117/80 (92) 92 05/29/19 09:29 92 Nasal Cannula 3.0 32 05/29/19 09:29 89 20 92 Nasal Cannula 3.0 32 05/29/19 09:00 Nasal Cannula 3.0 05/29/19 08:00 97.9 104 20 119/91 (100) 92 Intake and Output 05/29/19 05/30/19 19:00 07:00 Intake Total 800 ml 850 ml Output Total 100 ml 1000 ml Balance 700 ml -150 ml Intake Oral 800 ml 850 ml Output Urine Total 100 ml 1000 ml # Bowel Movements 2 Height (Feet): 6 Height (Inches): 0.00 Weight (Pounds): 210 General Appearance: alert EENT: normal ENT inspection Neck: supple Cardiovascular: normal rate Respiratory/Chest: decreased breath sounds Abdomen: normal bowel sounds, non tender, soft Extremities: non-tender Christiano La MD May 30, 2019 07:27
[2019-05-30 08:00] VITALS: BP 126/87
[2019-05-30 08:36] LABS: BASOPHILS % (AUTO) 2.1 % (0.0-2.0); EOSINOPHILS % (AUTO) 16.2 % (0.0-3.0); HEMATOCRIT 46.1 % (42.0-52.0); HEMOGLOBIN 15.4 G/DL (14.2-18.0); LYMPHOCYTES % (AUTO) 31.3 % (20.0-45.0); MEAN CORPUSCULAR VOLUME 89 FL (80-99); MONOCYTES % (AUTO) 7.9 % (1.0-10.0); NEUTROPHILS % (AUTO) 42.5 % (45.0-75.0); PLATELET COUNT 364 K/UL (150-450); RED BLOOD COUNT 5.19 M/UL (4.70-6.10); RED CELL DISTRIBUTION WIDTH 13.3 % (11.6-14.8); WHITE BLOOD COUNT 7.1 K/UL (4.8-10.8)
[2019-05-30] MEDS: Tigecycline 50 MG in NS 110 ML IVPB SCH ×2 (08:36→21:50)
[2019-05-30] MEDS: Docusate 100mg cap ORAL SCH ×2 (08:37→17:35)
[2019-05-30] MEDS: Eliquis 5mg tablet ORAL SCH ×2 (08:37→17:35)
[2019-05-30] MEDS ORDERED: NS 275ml ONE (08:42)
[2019-05-30 08:49] LABS: ANION GAP 7 mmol/L (5-15); BLOOD UREA NITROGEN 28 mg/dL (7-18); CALCIUM 9.6 MG/DL (8.5-10.1); CARBON DIOXIDE 32 MMOL/L (21-32); CHLORIDE 102 MMOL/L (98-107); CREATININE 1.1 MG/DL (0.55-1.30); POTASSIUM 4.8 MMOL/L (3.5-5.1); SODIUM 141 MMOL/L (136-145)
[2019-05-30 12:00] VITALS: BP 132/78
--- NOTE | 2019-05-30 15:52 | Internal Med Progress Note ---
Subjective Date of Service: May 30, 2019 Physician Name BrittneyIdris Attending Physician Jewel Giraldo MD Current Medications Medications (Trade) Dose Ordered Sig/Dejon Route PRN Reason Start Time Stop Time Status Last Admin Dose Admin Acetaminophen (Tylenol) 650 mg Q4H PRN ORAL Mild Pain/Temp > 100.5 05/21/19 18:14 06/15/19 18:13 05/29/19 13:04 Acetaminophen/ Hydrocodone Bitart ([place] 5/325) 1 tab Q6H PRN ORAL Moderate Pain (Pain Scale 4-6) 05/29/19 18:45 06/05/19 18:44 05/30/19 08:37 Albuterol/ Ipratropium (Albuterol/ Ipratropium) 3 ml Q4HRT PRN HHN Shortness of breath 05/27/19 06:45 06/01/19 06:44 05/29/19 19:49 Apixaban (Eliquis) 5 mg BID ORAL 05/22/19 09:00 06/21/19 08:59 05/30/19 08:37 Clonidine HCl (Catapres Tab) 0.1 mg Q4H PRN ORAL sbp more than 160 05/21/19 18:14 05/31/19 18:13 Docusate Sodium (Colace) 100 mg TWICE A DAY ORAL 05/22/19 09:00 06/21/19 08:59 05/30/19 08:37 Escitalopram Oxalate (Lexapro) 10 mg DAILY ORAL 05/22/19 09:00 06/22/19 08:59 05/30/19 08:36 Levothyroxine Sodium (Synthroid) 100 mcg ACBREAKFAST ORAL 05/27/19 06:30 06/26/19 06:29 05/30/19 06:25 Nitroglycerin (Ntg) 0.4 mg Q5M X 3 DOSES PRN SL Prn Chest Pain 05/21/19 18:14 06/06/19 18:13 Ondansetron HCl (Zofran) 4 mg Q6H PRN IVP Nausea & Vomiting 05/21/19 18:15 05/31/19 18:14 05/28/19 21:35 Oxymetazoline HCl (Afrin Nasal [place]) 1 spray Q6H PRN NASAL nasal congestion 3/13/20 18:17 05/31/19 18:16 Pantoprazole (Protonix) 40 mg EVERY 12 HOURS ORAL 05/21/19 21:00 06/05/19 20:59 05/30/19 08:36 Polyethylene Glycol (Miralax) 17 gm BEDTIME ORAL 05/21/19 21:00 06/20/19 20:59 Promethazine HCl/ Codeine (Phenergan with Codeine) 5 ml Q6H PRN ORAL cough 05/21/19 18:15 05/31/19 18:14 Quetiapine Fumarate (SEROqueL) 25 mg EVERY 6 HOURS PRN ORAL For Anxiety 05/22/19 00:00 07/06/19 00:00 Tigecycline 50 mg/ Sodium Chloride 110 ml @ 220 mls/hr EVERY 12 HOURS IVPB 05/26/19 09:00 05/31/19 23:59 05/30/19 08:36 Allergies: Coded Allergies: No Known Allergies (Unverified , 10/24/16) ROS Limited/Unobtainable: No Constitutional: Reports: no symptoms HEENT: Reports: no symptoms Cardiovascular: Reports: no symptoms Respiratory: Reports: shortness of breath Gastrointestinal/Abdominal: Reports: no symptoms Genitourinary: Reports: no symptoms Neurologic/Psychiatric: Reports: no symptoms Subjective 73 YO M admitted with COPD exacerbation. Now respiratory failure and pneumonia. Cover for Int Med-DR Giraldo. S/P endoscopy 05/06/19. Off BIPAP. Objective Last Vital Signs Date Time Temp Pulse Resp B/P (MAP) Pulse Ox O2 Delivery O2 Flow Rate FiO2 05/30/19 12:00 98.3 69 22 132/78 (96) 94 05/30/19 09:00 Nasal Cannula 3.0 05/30/19 07:00 32 Laboratory Tests Test 05/30/19 08:15 White Blood Count 7.1 K/UL (4.8-10.8) Red Blood Count 5.19 M/UL (4.70-6.10) Hemoglobin 15.4 G/DL (14.2-18.0) Hematocrit 46.1 % (42.0-52.0) Mean Corpuscular Volume 89 FL (80-99) Mean Corpuscular Hemoglobin 29.7 PG (27.0-31.0) Mean Corpuscular Hemoglobin Concent 33.4 G/DL (32.0-36.0) Red Cell Distribution Width 13.3 % (11.6-14.8) Platelet Count 364 K/UL (150-450) Mean Platelet Volume 5.9 FL (6.5-10.1) L Neutrophils (%) (Auto) 42.5 % (45.0-75.0) L Lymphocytes (%) (Auto) 31.3 % (20.0-45.0) Monocytes (%) (Auto) 7.9 % (1.0-10.0) Eosinophils (%) (Auto) 16.2 % (0.0-3.0) H Basophils (%) (Auto) 2.1 % (0.0-2.0) H Sodium Level 141 MMOL/L (136-145) Potassium Level 4.8 MMOL/L (3.5-5.1) Chloride Level 102 MMOL/L (98-107) Carbon Dioxide Level 32 MMOL/L (21-32) Anion Gap 7 mmol/L (5-15) Blood Urea Nitrogen 28 mg/dL (7-18) H Creatinine 1.1 MG/DL (0.55-1.30) Estimat Glomerular Filtration Rate > 60 mL/min (>60) Glucose Level 134 MG/DL (74-106) H Calcium Level 9.6 MG/DL (8.5-10.1) Intake and Output 05/29/19 05/30/19 19:00 07:00 Intake Total 800 ml 850 ml Output Total 100 ml 1000 ml Balance 700 ml -150 ml Intake Oral 800 ml 850 ml Output Urine Total 100 ml 1000 ml # Bowel Movements 2 Objective PHYSICAL EXAMINATION: GENERAL: The patient is awake, responsive, no acute distress. HEAD AND NECK: Pupils are equal and reactive to light. Extraocular muscles intact. Neck was supple. No JVD. LUNGS: Nasal canula;The patient has expiratory wheezes noted. Tachypneic. No rhonchi was noted. HEART: S1, S2. Irregular. No murmur. The patient has a pacemaker in the left-sided chest wall. ABDOMEN: Soft, nondistended, nontender. Mildly obese. EXTREMITIES: No cyanosis, clubbing, edema. NEUROLOGIC: Cranial nerves II through XII grossly normal. Motor is 5/5 in all extremities. Gait is intact. GENITOURINARY: It was noted the patient has a Montgomery catheter. RECTAL: Refused and deferred. PSYCHIATRIC: Mood and affect is intact. Assessment/Plan Assessment/Plan ASSESSMENT: 1. Acute hypoxemic respiratory failure, most likely secondary to acute COPD exacerbation. 2. Acute COPD exacerbation. 3. Pneumonia. 4. Sick sinus syndrome status post pacemaker. 5. Diabetes type 2. 6. Prostate cancer. 7. Hyperkalemia. 8. Insulin induced hyperglycemia. 9. Prostate enlargement. 10. Leukocytosis 11. RBBB 12 Gastritis PLAN: 1. Med/Surg 2. D/C Solu-Medrol IV Per Pulmonary consult=Dr. Obrien. 3. Endocrinology=Dr To. Monitor blood glucose level closely. 4. antibiotic= tegecycline. ID=Dr Villa 5. Code status is Full Code. DVT prophylaxis, he is on Eliquis. 6. S/P endoscopy 05/06/19=gastritis Idris Lugo MD May 30, 2019 15:52
[2019-05-30 16:00] VITALS: BP 139/85
[2019-05-30] MEDS: Albuterol/Ipratropium 3ml neb HHN PRN (18:51)
[2019-05-30 20:00] VITALS: BP 133/83
[2019-05-30] MEDS: Miralax 17gm pkt ORAL SCH (21:00)
[2019-05-31] VITALS: BP 120/84
[2019-05-31] MEDS: HYDROcodone/Acetamin 5/325 tab ORAL PRN ×2 (00:41→21:41)
--- NOTE | 2019-05-31 07:43 | General Progress Note ---
Assessment/Plan Problem List: (1) Diabetes mellitus ICD Codes: E11.9 - Type 2 diabetes mellitus without complications SNOMED: 26253017 (2) Respiratory failure with hypoxia ICD Codes: J96.91 - Respiratory failure, unspecified with hypoxia SNOMED: 08531529705232679 (3) COPD exacerbation ICD Codes: J44.1 - Chronic obstructive pulmonary disease with (acute) exacerbation SNOMED: 042664832 (4) Hypothyroid ICD Codes: E03.9 - Hypothyroidism, unspecified SNOMED: 90650076 (5) Pacemaker ICD Codes: Z95.0 - Presence of cardiac pacemaker SNOMED: 267139987 (6) Prostate cancer ICD Codes: C61 - Malignant neoplasm of prostate SNOMED: 357343617 Status: stable, not improved, deteriorating Assessment/Plan: s/p EGD stable H&H needs out patient fu fo colonoscopy repeat stool ob pending good po intake fu pulm recs abx fu labs Subjective ROS Limited/Unobtainable: No Allergies: Coded Allergies: No Known Allergies (Unverified , 10/24/16) Objective Last 24 Hour Vital Signs Date Time Temp Pulse Resp B/P (MAP) Pulse Ox O2 Delivery O2 Flow Rate FiO2 05/31/19 03:49 71 17 94 30 05/31/19 01:30 67 20 92 30 05/31/19 00:00 98.1 69 18 120/84 (96) 92 05/30/19 21:00 Nasal Cannula 3.0 05/30/19 20:00 98.5 77 20 133/83 (100) 91 05/30/19 18:51 96 18 91 Nasal Cannula 3.0 32 05/30/19 18:51 91 Nasal Cannula 3.0 32 05/30/19 18:51 93 20 94 Nasal Cannula 3.0 32 96 20 91 05/30/19 18:05 98.0 05/30/19 16:00 98.0 85 22 139/85 (103) 93 05/30/19 12:00 98.3 69 22 132/78 (96) 94 05/30/19 09:00 Nasal Cannula 3.0 05/30/19 08:00 97.3 70 22 126/87 (100) 91 Intake and Output 05/30/19 05/31/19 19:00 07:00 Intake Total 810 ml Output Total 810 ml Balance 0 ml Intake Oral 810 ml Output Urine Total 810 ml Laboratory Tests 05/30/19 08:15: White Blood Count 7.1, Red Blood Count 5.19, Hemoglobin 15.4, Hematocrit 46.1, Mean Corpuscular Volume 89, Mean Corpuscular Hemoglobin 29.7, Mean Corpuscular Hemoglobin Concent 33.4, Red Cell Distribution Width 13.3, Platelet Count 364, Mean Platelet Volume 5.9L, Neutrophils (%) (Auto) 42.5L, Lymphocytes (%) (Auto) 31.3, Monocytes (%) (Auto) 7.9, Eosinophils (%) (Auto) 16.2H, Basophils (%) ( Auto) 2.1H, Sodium Level 141, Potassium Level 4.8, Chloride Level 102, Carbon Dioxide Level 32, Anion Gap 7, Blood Urea Nitrogen 28H, Creatinine 1.1, Estimat Glomerular Filtration Rate > 60, Glucose Level 134H, Calcium Level 9.6 Height (Feet): 6 Height (Inches): 0.00 Weight (Pounds): 210 General Appearance: no apparent distress EENT: normal ENT inspection Neck: supple Cardiovascular: normal rate Respiratory/Chest: decreased breath sounds Abdomen: normal bowel sounds, non tender, soft Extremities: non-tender Christiano La MD May 31, 2019 07:43
[2019-05-31 08:00] VITALS: BP 107/66
--- NOTE | 2019-05-31 08:52 | Infectious Diseases Prog Note ---
Assessment/Plan Assessment/Plan Assessment: UCX : dale : colonizer COPD exacerbation , PNA, Sp -05/12 CXR: Bilateral interstitial disease, appearing similar to the previous exam,likely represents combination of senescent change and persistent or recurrent interstitial congestion -04/29 CXRLThere is bilateral interstitial congestion again demonstrated, appearing unchanged. No focal airspace consolidation. There is some atelectasis at the left lung base. -04/27 CXR: Borderline cardiomegaly. Questionable mild interstitial congestion , new or increased from previous study if real. -04/21 CTA chest:Somewhat limited exam, due to motion artifact. No definite evidence of pulmonary embolus or other acute thoracic vascular pathology. Borderline cardiomegaly. Diffuse bilateral pulmonary parenchymal groundglass opacity. Interspersed small bullae digestive this is due to COPD changes, but could also indicate a component of pulmonary edema. Considerable consolidation in the right lower lobe, likely pneumonia. Less extensive consolidation and atelectasis is seen at the left lung base. Pacemaker, degenerative spondylosis incidentally noted sp cx normal resp michael -04/19 CXR: Mild pulmonary vascular congestion -04/16 CXR: No acute disease -04/13 CXR: Suspected mild pulmonary vascular congestion. Correlate clinically -04/08 CXR: Mild pulmonary vascular congestion suspected Afebrile Leukocytosis,(pn steroids); improving HIV neg Hyperglycemia Acute hypoxic respiratory failure ,on bipap PRN COPD CAD CHF prostate cancer s/p PPM former smoker Plan: - Tygacil # 7/ (empirical Rx ) - 05/27 SP - Vfend # 9 (as per pul ) - 05/24 Sp Merrem # 5 - 05/22 Sp Amikacin INH # 12 - 05/05 Sp Ertapenem # 7/ - 05/03 sp Vancomycin # 5 -04/28 SP Zosyn #8 -04/15 SP Levaquin #7 -04/08 SP Ceftriaxone x1, Azithromycin x1 - Monitor CBC/CMP, temperatures -aspiration precautions - Fungitell - Galctomannan Thank you for this consultation. Will continue to follow along with you. Subjective Allergies: Coded Allergies: No Known Allergies (Unverified , 10/24/16) Subjective afebrile Objective Vital Signs Last 24 Hour Vital Signs Date Time Temp Pulse Resp B/P (MAP) Pulse Ox O2 Delivery O2 Flow Rate FiO2 05/31/19 08:00 97.9 67 20 107/66 (80) 91 05/31/19 03:49 71 17 94 30 05/31/19 01:30 67 20 92 30 05/31/19 00:00 98.1 69 18 120/84 (96) 92 05/30/19 21:00 Nasal Cannula 3.0 05/30/19 20:00 98.5 77 20 133/83 (100) 91 05/30/19 18:51 96 18 91 Nasal Cannula 3.0 32 05/30/19 18:51 91 Nasal Cannula 3.0 32 05/30/19 18:51 93 20 94 Nasal Cannula 3.0 32 96 20 91 05/30/19 18:05 98.0 05/30/19 16:00 98.0 85 22 139/85 (103) 93 05/30/19 12:00 98.3 69 22 132/78 (96) 94 05/30/19 09:00 Nasal Cannula 3.0 Height (Feet): 6 Height (Inches): 0.00 Weight (Pounds): 210 Respiratory/Chest: normal breath sounds Cardiovascular: regularly irregular Abdomen: no organomegaly Current Medications Medications (Trade) Dose Ordered Sig/Dejon Route PRN Reason Start Time Stop Time Status Last Admin Dose Admin Acetaminophen (Tylenol) 650 mg Q4H PRN ORAL Mild Pain/Temp > 100.5 05/21/19 18:14 06/15/19 18:13 05/29/19 13:04 Acetaminophen/ Hydrocodone Bitart ([place] 5/325) 1 tab Q6H PRN ORAL Moderate Pain (Pain Scale 4-6) 05/29/19 18:45 06/05/19 18:44 05/31/19 00:41 Albuterol/ Ipratropium (Albuterol/ Ipratropium) 3 ml Q4HRT PRN HHN Shortness of breath 05/27/19 06:45 06/01/19 06:44 05/30/19 18:51 Apixaban (Eliquis) 5 mg BID ORAL 05/22/19 09:00 06/21/19 08:59 05/30/19 17:35 Clonidine HCl (Catapres Tab) 0.1 mg Q4H PRN ORAL sbp more than 160 05/21/19 18:14 05/31/19 18:13 Docusate Sodium (Colace) 100 mg TWICE A DAY ORAL 05/22/19 09:00 06/21/19 08:59 05/30/19 17:35 Escitalopram Oxalate (Lexapro) 10 mg DAILY ORAL 05/22/19 09:00 06/22/19 08:59 05/30/19 08:36 Levothyroxine Sodium (Synthroid) 100 mcg ACBREAKFAST ORAL 05/27/19 06:30 06/26/19 06:29 05/31/19 06:44 Nitroglycerin (Ntg) 0.4 mg Q5M X 3 DOSES PRN SL Prn Chest Pain 05/21/19 18:14 06/06/19 18:13 Ondansetron HCl (Zofran) 4 mg Q6H PRN IVP Nausea & Vomiting 05/21/19 18:15 05/31/19 18:14 05/28/19 21:35 Oxymetazoline HCl (Afrin Nasal [place]) 1 spray Q6H PRN NASAL nasal congestion 05/21/19 18:17 05/31/19 18:16 Pantoprazole (Protonix) 40 mg EVERY 12 HOURS ORAL 05/21/19 21:00 06/05/19 20:59 05/30/19 21:51 Polyethylene Glycol (Miralax) 17 gm BEDTIME ORAL 05/21/19 21:00 06/20/19 20:59 Promethazine HCl/ Codeine (Phenergan with Codeine) 5 ml Q6H PRN ORAL cough 05/21/19 18:15 05/31/19 18:14 Quetiapine Fumarate (SEROqueL) 25 mg EVERY 6 HOURS PRN ORAL For Anxiety 05/22/19 00:00 07/06/19 00:00 Tigecycline 50 mg/ Sodium Chloride 110 ml @ 220 mls/hr EVERY 12 HOURS IVPB 05/26/19 09:00 05/31/19 23:59 05/30/19 21:50 Robert Canela MD May 31, 2019 08:52
[2019-05-31 09:03] LABS: BASOPHILS % (AUTO) 1.6 % (0.0-2.0); HEMATOCRIT 46.5 % (42.0-52.0); HEMOGLOBIN 15.3 G/DL (14.2-18.0); LYMPHOCYTES % (AUTO) 35.1 % (20.0-45.0); MEAN CORPUSCULAR VOLUME 89 FL (80-99); MONOCYTES % (AUTO) 2.5 % (1.0-10.0); NEUTROPHILS % (AUTO) 41.8 % (45.0-75.0); PLATELET COUNT 349 K/UL (150-450); RED BLOOD COUNT 5.24 M/UL (4.70-6.10); RED CELL DISTRIBUTION WIDTH 13.5 % (11.6-14.8); WHITE BLOOD COUNT 7.4 K/UL (4.8-10.8)
[2019-05-31 09:32] LABS: ANION GAP 10 mmol/L (5-15); BLOOD UREA NITROGEN 23 mg/dL (7-18); CALCIUM 8.9 MG/DL (8.5-10.1); CARBON DIOXIDE 24 MMOL/L (21-32); CHLORIDE 105 MMOL/L (98-107); CREATININE 1.1 MG/DL (0.55-1.30); SODIUM 139 MMOL/L (136-145)
[2019-05-31] MEDS: Tigecycline 50 MG in NS 110 ML IVPB SCH ×2 (09:33→21:41)
[2019-05-31] MEDS: Eliquis 5mg tablet ORAL SCH ×2 (09:34→18:16)
[2019-05-31] MEDS: Docusate 100mg cap ORAL SCH ×2 (09:34→18:16)
--- NOTE | 2019-05-31 17:37 | Pulmonology Progress Note ---
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 [place] Virus was negative Subjective ROS Limited/Unobtainable: No Allergies: Coded Allergies: No Known Allergies (Unverified , 10/24/16) Objective Last 24 Hour Vital Signs Date Time Temp Pulse Resp B/P (MAP) Pulse Ox O2 Delivery O2 Flow Rate FiO2 05/31/19 09:00 Nasal Cannula 3.0 05/31/19 08:00 69 18 92 Nasal Cannula 3.0 32 05/31/19 08:00 97.9 67 20 107/66 (80) 91 05/31/19 08:00 92 Nasal Cannula 3.0 32 05/31/19 03:49 71 17 94 30 05/31/19 01:30 67 20 92 30 05/31/19 00:00 98.1 69 18 120/84 (96) 92 05/30/19 21:00 Nasal Cannula 3.0 05/30/19 20:00 98.5 77 20 133/83 (100) 91 05/30/19 18:51 96 18 91 Nasal Cannula 3.0 32 05/30/19 18:51 91 Nasal Cannula 3.0 32 05/30/19 18:51 93 20 94 Nasal Cannula 3.0 32 96 20 91 05/30/19 18:05 98.0 Intake and Output 05/30/19 05/31/19 19:00 07:00 Intake Total 810 ml Output Total 810 ml Balance 0 ml Intake Oral 810 ml Output Urine Total 810 ml Objective General Appearance: WD/WN HEENT: normocephalic, atraumatic Respiratory/Chest: chest wall non-tender, loud rhonchi Breasts: no masses Cardiovascular: normal peripheral pulses Abdomen: normal bowel sounds, soft, non tender Genitourinary: normal external genitalia Extremities: no cyanosis Skin: no rash 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 Laboratory Tests 05/31/19 08:50: White Blood Count 7.4, Red Blood Count 5.24, Hemoglobin 15.3, Hematocrit 46.5, Mean Corpuscular Volume 89, Mean Corpuscular Hemoglobin 29.2, Mean Corpuscular Hemoglobin Concent 32.9, Red Cell Distribution Width 13.5, Platelet Count 349, Mean Platelet Volume 6.1L, Neutrophils (%) (Auto) 41.8L, Lymphocytes (%) (Auto) 35.1, Monocytes (%) (Auto) 2.5, Eosinophils (%) (Auto) 19.0H, Basophils (%) ( Auto) 1.6, Sodium Level 139, Potassium Level 5.0, Chloride Level 105, Carbon Dioxide Level 24, Anion Gap 10, Blood Urea Nitrogen 23H, Creatinine 1.1, Estimat Glomerular Filtration Rate > 60, Glucose Level 182H, Calcium Level 8.9 Current Medications Medications (Trade) Dose Ordered Sig/Dejon Route PRN Reason Start Time Stop Time Status Last Admin Dose Admin Acetaminophen (Tylenol) 650 mg Q4H PRN ORAL Mild Pain/Temp > 100.5 05/21/19 18:14 06/15/19 18:13 05/29/19 13:04 Acetaminophen/ Hydrocodone Bitart ([place] 5/325) 1 tab Q6H PRN ORAL Moderate Pain (Pain Scale 4-6) 05/29/19 18:45 06/05/19 18:44 05/31/19 00:41 Albuterol/ Ipratropium (Albuterol/ Ipratropium) 3 ml Q4HRT PRN HHN Shortness of breath 05/27/19 06:45 06/01/19 06:44 05/30/19 18:51 Apixaban (Eliquis) 5 mg BID ORAL 05/22/19 09:00 06/21/19 08:59 05/31/19 09:34 Clonidine HCl (Catapres Tab) 0.1 mg Q4H PRN ORAL sbp more than 160 05/21/19 18:14 05/31/19 18:13 Docusate Sodium (Colace) 100 mg TWICE A DAY ORAL 05/22/19 09:00 06/21/19 08:59 05/31/19 09:34 Escitalopram Oxalate (Lexapro) 10 mg DAILY ORAL 05/22/19 09:00 06/22/19 08:59 05/31/19 09:34 Levothyroxine Sodium (Synthroid) 100 mcg ACBREAKFAST ORAL 05/27/19 06:30 06/26/19 06:29 05/31/19 06:44 Nitroglycerin (Ntg) 0.4 mg Q5M X 3 DOSES PRN SL Prn Chest Pain 05/21/19 18:14 06/06/19 18:13 Ondansetron HCl (Zofran) 4 mg Q6H PRN IVP Nausea & Vomiting 05/21/19 18:15 05/31/19 18:14 05/28/19 21:35 Oxymetazoline HCl (Afrin Nasal [place]) 1 spray Q6H PRN NASAL nasal congestion 05/21/19 18:17 05/31/19 18:16 Pantoprazole (Protonix) 40 mg EVERY 12 HOURS ORAL 05/21/19 21:00 06/05/19 20:59 05/31/19 09:34 Polyethylene Glycol (Miralax) 17 gm BEDTIME ORAL 05/21/19 21:00 06/20/19 20:59 Promethazine HCl/ Codeine (Phenergan with Codeine) 5 ml Q6H PRN ORAL cough 05/21/19 18:15 05/31/19 18:14 Quetiapine Fumarate (SEROqueL) 25 mg EVERY 6 HOURS PRN ORAL For Anxiety 05/22/19 00:00 07/06/19 00:00 Tigecycline 50 mg/ Sodium Chloride 110 ml @ 220 mls/hr EVERY 12 HOURS IVPB 05/26/19 09:00 05/31/19 23:59 05/31/19 09:33 Goldie Obrien MD May 31, 2019 17:37
[2019-05-31] MEDS: Albuterol/Ipratropium 3ml neb HHN PRN (17:39)
--- NOTE | 2019-05-31 18:55 | Internal Med Progress Note ---
Subjective Date of Service: May 31, 2019 Physician Name Lugo,Idris Attending Physician Jewel Giraldo MD Current Medications Medications (Trade) Dose Ordered Sig/Dejon Route PRN Reason Start Time Stop Time Status Last Admin Dose Admin Acetaminophen (Tylenol) 650 mg Q4H PRN ORAL Mild Pain/Temp > 100.5 05/21/19 18:14 06/15/19 18:13 05/29/19 13:04 Acetaminophen/ Hydrocodone Bitart ([place] 5/325) 1 tab Q6H PRN ORAL Moderate Pain (Pain Scale 4-6) 05/29/19 18:45 06/05/19 18:44 05/31/19 00:41 Albuterol/ Ipratropium (Albuterol/ Ipratropium) 3 ml Q4HRT PRN HHN Shortness of breath 05/27/19 06:45 06/01/19 06:44 05/31/19 17:39 Apixaban (Eliquis) 5 mg BID ORAL 05/22/19 09:00 06/21/19 08:59 05/31/19 18:16 Docusate Sodium (Colace) 100 mg TWICE A DAY ORAL 05/22/19 09:00 06/21/19 08:59 05/31/19 18:16 Escitalopram Oxalate (Lexapro) 10 mg DAILY ORAL 05/22/19 09:00 06/22/19 08:59 05/31/19 09:34 Levothyroxine Sodium (Synthroid) 100 mcg ACBREAKFAST ORAL 05/27/19 06:30 06/26/19 06:29 05/31/19 06:44 Nitroglycerin (Ntg) 0.4 mg Q5M X 3 DOSES PRN SL Prn Chest Pain 05/21/19 18:14 06/06/19 18:13 Pantoprazole (Protonix) 40 mg EVERY 12 HOURS ORAL 05/21/19 21:00 06/05/19 20:59 05/31/19 09:34 Polyethylene Glycol (Miralax) 17 gm BEDTIME ORAL 05/21/19 21:00 06/20/19 20:59 Quetiapine Fumarate (SEROqueL) 25 mg EVERY 6 HOURS PRN ORAL For Anxiety 05/22/19 00:00 07/06/19 00:00 Tigecycline 50 mg/ Sodium Chloride 110 ml @ 220 mls/hr EVERY 12 HOURS IVPB 05/26/19 09:00 05/31/19 23:59 05/31/19 09:33 Allergies: Coded Allergies: No Known Allergies (Unverified , 10/24/16) ROS Limited/Unobtainable: No Constitutional: Reports: no symptoms HEENT: Reports: no symptoms Cardiovascular: Reports: no symptoms Respiratory: Reports: no symptoms Gastrointestinal/Abdominal: Reports: no symptoms Genitourinary: Reports: no symptoms Neurologic/Psychiatric: Reports: no symptoms Subjective 73 YO M admitted with COPD exacerbation. Now respiratory failure and pneumonia. Cover for Int Med-DR Giraldo. S/P endoscopy 05/06/19. Off BIPAP. Objective Last Vital Signs Date Time Temp Pulse Resp B/P (MAP) Pulse Ox O2 Delivery O2 Flow Rate FiO2 05/31/19 17:39 69 20 95 Nasal Cannula 3.0 32 67 20 92 05/31/19 08:00 97.9 107/66 (80) Laboratory Tests Test 05/31/19 08:50 White Blood Count 7.4 K/UL (4.8-10.8) Red Blood Count 5.24 M/UL (4.70-6.10) Hemoglobin 15.3 G/DL (14.2-18.0) Hematocrit 46.5 % (42.0-52.0) Mean Corpuscular Volume 89 FL (80-99) Mean Corpuscular Hemoglobin 29.2 PG (27.0-31.0) Mean Corpuscular Hemoglobin Concent 32.9 G/DL (32.0-36.0) Red Cell Distribution Width 13.5 % (11.6-14.8) Platelet Count 349 K/UL (150-450) Mean Platelet Volume 6.1 FL (6.5-10.1) L Neutrophils (%) (Auto) 41.8 % (45.0-75.0) L Lymphocytes (%) (Auto) 35.1 % (20.0-45.0) Monocytes (%) (Auto) 2.5 % (1.0-10.0) Eosinophils (%) (Auto) 19.0 % (0.0-3.0) H Basophils (%) (Auto) 1.6 % (0.0-2.0) Sodium Level 139 MMOL/L (136-145) Potassium Level 5.0 MMOL/L (3.5-5.1) Chloride Level 105 MMOL/L (98-107) Carbon Dioxide Level 24 MMOL/L (21-32) Anion Gap 10 mmol/L (5-15) Blood Urea Nitrogen 23 mg/dL (7-18) H Creatinine 1.1 MG/DL (0.55-1.30) Estimat Glomerular Filtration Rate > 60 mL/min (>60) Glucose Level 182 MG/DL (74-106) H Calcium Level 8.9 MG/DL (8.5-10.1) Intake and Output 05/30/19 05/31/19 19:00 07:00 Intake Total 810 ml Output Total 810 ml Balance 0 ml Intake Oral 810 ml Output Urine Total 810 ml Objective PHYSICAL EXAMINATION: GENERAL: The patient is awake, responsive, no acute distress. HEAD AND NECK: Pupils are equal and reactive to light. Extraocular muscles intact. Neck was supple. No JVD. LUNGS: Nasal canula;The patient has expiratory wheezes noted. Tachypneic. No rhonchi was noted. HEART: S1, S2. Irregular. No murmur. The patient has a pacemaker in the left-sided chest wall. ABDOMEN: Soft, nondistended, nontender. Mildly obese. EXTREMITIES: No cyanosis, clubbing, edema. NEUROLOGIC: Cranial nerves II through XII grossly normal. Motor is 5/5 in all extremities. Gait is intact. GENITOURINARY: It was noted the patient has a Montgomery catheter. RECTAL: Refused and deferred. PSYCHIATRIC: Mood and affect is intact. Assessment/Plan Assessment/Plan ASSESSMENT: 1. Acute hypoxemic respiratory failure, most likely secondary to acute COPD exacerbation. 2. Acute COPD exacerbation. 3. Pneumonia. 4. Sick sinus syndrome status post pacemaker. 5. Diabetes type 2. 6. Prostate cancer. 7. Hyperkalemia. 8. Insulin induced hyperglycemia. 9. Prostate enlargement. 10. Leukocytosis 11. RBBB 12 Gastritis PLAN: 1. Med/Surg 2. D/C Solu-Medrol IV Per Pulmonary consult=Dr. Obrien. 3. Endocrinology=Dr To. Monitor blood glucose level closely. 4. antibiotic= tegecycline. ID=Dr Villa 5. Code status is Full Code. DVT prophylaxis, he is on Eliquis. 6. S/P endoscopy 05/06/19=gastritis Idris Lugo MD May 31, 2019 18:55
[2019-05-31 20:00] VITALS: BP 102/74
[2019-05-31] MEDS: Miralax 17gm pkt ORAL SCH (21:00)
[2019-06-01] VITALS: BP 124/85
[2019-06-01] MEDS: Albuterol/Ipratropium 3ml neb HHN PRN ×3 (00:36→21:41)
[2019-06-01 08:00] VITALS: BP 142/80
--- NOTE | 2019-06-01 08:50 | General Progress Note ---
Assessment/Plan Problem List: (1) Diabetes mellitus ICD Codes: E11.9 - Type 2 diabetes mellitus without complications SNOMED: 70697476 (2) Respiratory failure with hypoxia ICD Codes: J96.91 - Respiratory failure, unspecified with hypoxia SNOMED: 33275823547897150 (3) COPD exacerbation ICD Codes: J44.1 - Chronic obstructive pulmonary disease with (acute) exacerbation SNOMED: 637047001 (4) Hypothyroid ICD Codes: E03.9 - Hypothyroidism, unspecified SNOMED: 10267970 (5) Pacemaker ICD Codes: Z95.0 - Presence of cardiac pacemaker SNOMED: 683048383 (6) Prostate cancer ICD Codes: C61 - Malignant neoplasm of prostate SNOMED: 768027234 Status: stable, not improved, deteriorating Assessment/Plan: s/p EGD stable H&H needs out patient fu fo colonoscopy repeat stool ob pending good po intake fu pulm recs abx fu labs Subjective ROS Limited/Unobtainable: No Allergies: Coded Allergies: No Known Allergies (Unverified , 10/24/16) Objective Last 24 Hour Vital Signs Date Time Temp Pulse Resp B/P (MAP) Pulse Ox O2 Delivery O2 Flow Rate FiO2 06/01/19 08:00 98.5 74 22 142/80 (100) 93 06/01/19 07:15 84 18 94 Nasal Cannula 3.0 32 06/01/19 07:14 94 Nasal Cannula 3.0 32 06/01/19 00:37 77 20 97 Nasal Cannula 3.0 32 74 20 94 06/01/19 00:00 97.9 73 20 124/85 (98) 92 05/31/19 21:00 Nasal Cannula 3.0 05/31/19 20:00 97.9 75 17 102/74 (83) 92 05/31/19 19:42 93 Nasal Cannula 3.0 32 05/31/19 19:40 74 18 93 Nasal Cannula 3.0 32 05/31/19 17:39 69 20 95 Nasal Cannula 3.0 32 67 20 92 05/31/19 09:00 Nasal Cannula 3.0 Intake and Output 05/31/19 06/01/19 19:00 07:00 Intake Total 900 ml 1360 ml Output Total 1000 ml 950 ml Balance -100 ml 410 ml Intake Oral 900 ml 1360 ml Output Urine Total 1000 ml 950 ml Height (Feet): 6 Height (Inches): 0.00 Weight (Pounds): 210 General Appearance: no apparent distress EENT: normal ENT inspection Neck: supple Cardiovascular: normal rate Respiratory/Chest: decreased breath sounds Abdomen: normal bowel sounds, non tender, soft Extremities: non-tender Christiano La MD Jun 01, 2019 08:50
[2019-06-01] MEDS: Docusate 100mg cap ORAL SCH ×2 (09:14→18:25)
[2019-06-01] MEDS: Eliquis 5mg tablet ORAL SCH ×2 (09:14→18:25)
[2019-06-01 10:23] LABS: BASOPHILS % (AUTO) 1.8 % (0.0-2.0); HEMATOCRIT 43.6 % (42.0-52.0); HEMOGLOBIN 14.6 G/DL (14.2-18.0); LYMPHOCYTES % (AUTO) 31.2 % (20.0-45.0); MEAN CORPUSCULAR VOLUME 89 FL (80-99); MONOCYTES % (AUTO) 4.7 % (1.0-10.0); NEUTROPHILS % (AUTO) 48.3 % (45.0-75.0); PLATELET COUNT 322 K/UL (150-450); RED BLOOD COUNT 4.91 M/UL (4.70-6.10); RED CELL DISTRIBUTION WIDTH 13.4 % (11.6-14.8)
[2019-06-01 10:42] LABS: ALANINE AMINOTRANSFERASE 26 U/L (12-78); ALBUMIN 3.1 G/DL (3.4-5.0); ALBUMIN/GLOBULIN RATIO 0.9 (1.0-2.7); ALKALINE PHOSPHATASE 110 U/L (46-116); ANION GAP 8 mmol/L (5-15); ASPARTATE AMINO TRANSFERASE 16 U/L (15-37); BILIRUBIN,TOTAL 0.3 MG/DL (0.2-1.0); BLOOD UREA NITROGEN 22 mg/dL (7-18); CALCIUM 8.8 MG/DL (8.5-10.1); CARBON DIOXIDE 27 MMOL/L (21-32); CHLORIDE 104 MMOL/L (98-107); CREATININE 1.1 MG/DL (0.55-1.30); POTASSIUM 4.4 MMOL/L (3.5-5.1); SODIUM 139 MMOL/L (136-145)
[2019-06-01 12:00] VITALS: BP 139/90
--- NOTE | 2019-06-01 12:00 | Infectious Diseases Prog Note ---
Assessment/Plan Assessment/Plan Assessment: UCX : dale : colonizer COPD exacerbation , PNA, Sp -05/12 CXR: Bilateral interstitial disease, appearing similar to the previous exam,likely represents combination of senescent change and persistent or recurrent interstitial congestion -04/29 CXRLThere is bilateral interstitial congestion again demonstrated, appearing unchanged. No focal airspace consolidation. There is some atelectasis at the left lung base. -04/27 CXR: Borderline cardiomegaly. Questionable mild interstitial congestion , new or increased from previous study if real. -04/21 CTA chest:Somewhat limited exam, due to motion artifact. No definite evidence of pulmonary embolus or other acute thoracic vascular pathology. Borderline cardiomegaly. Diffuse bilateral pulmonary parenchymal groundglass opacity. Interspersed small bullae digestive this is due to COPD changes, but could also indicate a component of pulmonary edema. Considerable consolidation in the right lower lobe, likely pneumonia. Less extensive consolidation and atelectasis is seen at the left lung base. Pacemaker, degenerative spondylosis incidentally noted sp cx normal resp michael -04/19 CXR: Mild pulmonary vascular congestion -04/16 CXR: No acute disease -04/13 CXR: Suspected mild pulmonary vascular congestion. Correlate clinically -04/08 CXR: Mild pulmonary vascular congestion suspected Afebrile Leukocytosis,(pn steroids); improving HIV neg Hyperglycemia Acute hypoxic respiratory failure ,on bipap PRN COPD CAD CHF prostate cancer s/p PPM former smoker Plan: monitor pt off of AB RX - 05/30 sp Tygacil # 7/7 (empirical Rx ) - 05/27 SP - Vfend # 9 (as per pul ) - 05/24 Sp Merrem # 5 - 05/22 Sp Amikacin INH # 12 - 05/05 Sp Ertapenem # 7/7 - 05/03 sp Vancomycin # 5 -04/28 SP Zosyn #8 -04/15 SP Levaquin #7 -04/08 SP Ceftriaxone x1, Azithromycin x1 - Monitor CBC/CMP, temperatures -aspiration precautions - Fungitell - Galctomannan Thank you for this consultation. Will continue to follow along with you. Subjective Allergies: Coded Allergies: No Known Allergies (Unverified , 10/24/16) Subjective afebrile Objective Vital Signs Last 24 Hour Vital Signs Date Time Temp Pulse Resp B/P (MAP) Pulse Ox O2 Delivery O2 Flow Rate FiO2 06/01/19 09:59 79 18 95 Nasal Cannula 3.0 32 76 18 92 06/01/19 09:55 79 19 95 30 06/01/19 09:00 Nasal Cannula 3.0 06/01/19 08:00 98.5 74 22 142/80 (100) 93 06/01/19 07:15 84 18 94 Nasal Cannula 3.0 32 06/01/19 07:14 94 Nasal Cannula 3.0 32 06/01/19 00:37 77 20 97 Nasal Cannula 3.0 32 74 20 94 06/01/19 00:00 97.9 73 20 124/85 (98) 92 05/31/19 21:00 Nasal Cannula 3.0 05/31/19 20:00 97.9 75 17 102/74 (83) 92 05/31/19 19:42 93 Nasal Cannula 3.0 32 05/31/19 19:40 74 18 93 Nasal Cannula 3.0 32 05/31/19 17:39 69 20 95 Nasal Cannula 3.0 32 67 20 92 Height (Feet): 6 Height (Inches): 0.00 Weight (Pounds): 210 HEENT: mucous membranes moist Respiratory/Chest: normal breath sounds Cardiovascular: regularly irregular Abdomen: no organomegaly Laboratory Tests Test 06/01/19 09:50 White Blood Count 7.0 K/UL (4.8-10.8) Red Blood Count 4.91 M/UL (4.70-6.10) Hemoglobin 14.6 G/DL (14.2-18.0) Hematocrit 43.6 % (42.0-52.0) Mean Corpuscular Volume 89 FL (80-99) Mean Corpuscular Hemoglobin 29.7 PG (27.0-31.0) Mean Corpuscular Hemoglobin Concent 33.5 G/DL (32.0-36.0) Red Cell Distribution Width 13.4 % (11.6-14.8) Platelet Count 322 K/UL (150-450) Mean Platelet Volume 5.8 FL (6.5-10.1) L Neutrophils (%) (Auto) 48.3 % (45.0-75.0) Lymphocytes (%) (Auto) 31.2 % (20.0-45.0) Monocytes (%) (Auto) 4.7 % (1.0-10.0) Eosinophils (%) (Auto) 14.0 % (0.0-3.0) H Basophils (%) (Auto) 1.8 % (0.0-2.0) Sodium Level 139 MMOL/L (136-145) Potassium Level 4.4 MMOL/L (3.5-5.1) Chloride Level 104 MMOL/L (98-107) Carbon Dioxide Level 27 MMOL/L (21-32) Anion Gap 8 mmol/L (5-15) Blood Urea Nitrogen 22 mg/dL (7-18) H Creatinine 1.1 MG/DL (0.55-1.30) Estimat Glomerular Filtration Rate > 60 mL/min (>60) Glucose Level 178 MG/DL (74-106) H Calcium Level 8.8 MG/DL (8.5-10.1) Total Bilirubin 0.3 MG/DL (0.2-1.0) Aspartate Amino Transf (AST/SGOT) 16 U/L (15-37) Alanine Aminotransferase (ALT/SGPT) 26 U/L (12-78) Alkaline Phosphatase 110 U/L (46-116) Pro-B-Type Natriuretic Peptide 93 pg/mL (0-125) Total Protein 6.6 G/DL (6.4-8.2) Albumin 3.1 G/DL (3.4-5.0) L Globulin 3.5 g/dL Albumin/Globulin Ratio 0.9 (1.0-2.7) L Current Medications Medications (Trade) Dose Ordered Sig/Dejon Route PRN Reason Start Time Stop Time Status Last Admin Dose Admin Acetaminophen (Tylenol) 650 mg Q4H PRN ORAL Mild Pain/Temp > 100.5 05/21/19 18:14 06/15/19 18:13 05/29/19 13:04 Acetaminophen/ Hydrocodone Bitart ([place] 5/325) 1 tab Q6H PRN ORAL Moderate Pain (Pain Scale 4-6) 05/29/19 18:45 06/05/19 18:44 05/31/19 21:41 Albuterol/ Ipratropium (Albuterol/ Ipratropium) 3 ml Q4H PRN HHN Shortness of Breath 06/01/19 09:30 06/06/19 09:29 06/01/19 09:46 Apixaban (Eliquis) 5 mg BID ORAL 05/22/19 09:00 06/21/19 08:59 06/01/19 09:14 Docusate Sodium (Colace) 100 mg TWICE A DAY ORAL 05/22/19 09:00 06/21/19 08:59 06/01/19 09:14 Escitalopram Oxalate (Lexapro) 10 mg DAILY ORAL 05/22/19 09:00 06/22/19 08:59 06/01/19 09:14 Levothyroxine Sodium (Synthroid) 100 mcg ACBREAKFAST ORAL 05/27/19 06:30 06/26/19 06:29 06/01/19 06:16 Nitroglycerin (Ntg) 0.4 mg Q5M X 3 DOSES PRN SL Prn Chest Pain 05/21/19 18:14 06/06/19 18:13 Pantoprazole (Protonix) 40 mg EVERY 12 HOURS ORAL 05/21/19 21:00 06/05/19 20:59 06/01/19 09:14 Polyethylene Glycol (Miralax) 17 gm BEDTIME ORAL 05/21/19 21:00 06/20/19 20:59 Quetiapine Fumarate (SEROqueL) 25 mg EVERY 6 HOURS PRN ORAL For Anxiety 05/22/19 00:00 07/06/19 00:00 Robert Canela MD Jun 01, 2019 12:00
--- NOTE | 2019-06-01 13:53 | Diagnostic Imaging Report ---
Indication: Dyspnea Comparison: 05/19/2019 A single view chest radiograph was obtained. Findings: Pulmonary vascular congestion demonstrated. Cardiomegaly is present. Aorta is ectatic and calcified. There is a pacemaker on the left. The bones are slightly osteopenic. IMPRESSION: Pulmonary vascular congestion/CHF suspected
--- NOTE | 2019-06-01 15:40 | Internal Med Progress Note ---
Subjective Date of Service: Jun 01, 2019 Physician Name Idris Lugo Attending Physician Jewel Giraldo MD Current Medications Medications (Trade) Dose Ordered Sig/Dejon Route PRN Reason Start Time Stop Time Status Last Admin Dose Admin Acetaminophen (Tylenol) 650 mg Q4H PRN ORAL Mild Pain/Temp > 100.5 05/21/19 18:14 06/15/19 18:13 05/29/19 13:04 Acetaminophen/ Hydrocodone Bitart ([place] 5/325) 1 tab Q6H PRN ORAL Moderate Pain (Pain Scale 4-6) 05/29/19 18:45 06/05/19 18:44 05/31/19 21:41 Albuterol/ Ipratropium (Albuterol/ Ipratropium) 3 ml Q4H PRN HHN Shortness of Breath 06/01/19 09:30 06/06/19 09:29 06/01/19 09:46 Apixaban (Eliquis) 5 mg BID ORAL 05/22/19 09:00 06/21/19 08:59 06/01/19 09:14 Docusate Sodium (Colace) 100 mg TWICE A DAY ORAL 05/22/19 09:00 06/21/19 08:59 06/01/19 09:14 Escitalopram Oxalate (Lexapro) 10 mg DAILY ORAL 05/22/19 09:00 06/22/19 08:59 06/01/19 09:14 Levothyroxine Sodium (Synthroid) 100 mcg ACBREAKFAST ORAL 05/27/19 06:30 06/26/19 06:29 06/01/19 06:16 Nitroglycerin (Ntg) 0.4 mg Q5M X 3 DOSES PRN SL Prn Chest Pain 05/21/19 18:14 06/06/19 18:13 Pantoprazole (Protonix) 40 mg EVERY 12 HOURS ORAL 05/21/19 21:00 06/05/19 20:59 06/01/19 09:14 Polyethylene Glycol (Miralax) 17 gm BEDTIME ORAL 05/21/19 21:00 06/20/19 20:59 Quetiapine Fumarate (SEROqueL) 25 mg EVERY 6 HOURS PRN ORAL For Anxiety 05/22/19 00:00 07/06/19 00:00 Allergies: Coded Allergies: No Known Allergies (Unverified , 10/24/16) Subjective 73 YO M admitted with COPD exacerbation. Now respiratory failure and pneumonia. Cover for Int Med-DR Giraldo. S/P endoscopy 05/06/19. On BIPAP. Objective Last Vital Signs Date Time Temp Pulse Resp B/P (MAP) Pulse Ox O2 Delivery O2 Flow Rate FiO2 06/01/19 12:00 98.0 84 22 139/90 (106) 94 06/01/19 09:59 Nasal Cannula 3.0 32 Laboratory Tests Test 06/01/19 09:50 White Blood Count 7.0 K/UL (4.8-10.8) Red Blood Count 4.91 M/UL (4.70-6.10) Hemoglobin 14.6 G/DL (14.2-18.0) Hematocrit 43.6 % (42.0-52.0) Mean Corpuscular Volume 89 FL (80-99) Mean Corpuscular Hemoglobin 29.7 PG (27.0-31.0) Mean Corpuscular Hemoglobin Concent 33.5 G/DL (32.0-36.0) Red Cell Distribution Width 13.4 % (11.6-14.8) Platelet Count 322 K/UL (150-450) Mean Platelet Volume 5.8 FL (6.5-10.1) L Neutrophils (%) (Auto) 48.3 % (45.0-75.0) Lymphocytes (%) (Auto) 31.2 % (20.0-45.0) Monocytes (%) (Auto) 4.7 % (1.0-10.0) Eosinophils (%) (Auto) 14.0 % (0.0-3.0) H Basophils (%) (Auto) 1.8 % (0.0-2.0) Sodium Level 139 MMOL/L (136-145) Potassium Level 4.4 MMOL/L (3.5-5.1) Chloride Level 104 MMOL/L (98-107) Carbon Dioxide Level 27 MMOL/L (21-32) Anion Gap 8 mmol/L (5-15) Blood Urea Nitrogen 22 mg/dL (7-18) H Creatinine 1.1 MG/DL (0.55-1.30) Estimat Glomerular Filtration Rate > 60 mL/min (>60) Glucose Level 178 MG/DL (74-106) H Calcium Level 8.8 MG/DL (8.5-10.1) Total Bilirubin 0.3 MG/DL (0.2-1.0) Aspartate Amino Transf (AST/SGOT) 16 U/L (15-37) Alanine Aminotransferase (ALT/SGPT) 26 U/L (12-78) Alkaline Phosphatase 110 U/L (46-116) Pro-B-Type Natriuretic Peptide 93 pg/mL (0-125) Total Protein 6.6 G/DL (6.4-8.2) Albumin 3.1 G/DL (3.4-5.0) L Globulin 3.5 g/dL Albumin/Globulin Ratio 0.9 (1.0-2.7) L Intake and Output 05/31/19 06/01/19 19:00 07:00 Intake Total 900 ml 1360 ml Output Total 1000 ml 950 ml Balance -100 ml 410 ml Intake Oral 900 ml 1360 ml Output Urine Total 1000 ml 950 ml Objective PHYSICAL EXAMINATION: GENERAL: The patient is awake, responsive, no acute distress. HEAD AND NECK: Pupils are equal and reactive to light. Extraocular muscles intact. Neck was supple. No JVD. LUNGS: BIPAP;The patient has expiratory wheezes noted. Tachypneic. No rhonchi was noted. HEART: S1, S2. Irregular. No murmur. The patient has a pacemaker in the left-sided chest wall. ABDOMEN: Soft, nondistended, nontender. Mildly obese. EXTREMITIES: No cyanosis, clubbing, edema. NEUROLOGIC: Cranial nerves II through XII grossly normal. Motor is 5/5 in all extremities. Gait is intact. GENITOURINARY: It was noted the patient has a Montgomery catheter. RECTAL: Refused and deferred. PSYCHIATRIC: Mood and affect is intact. Assessment/Plan Assessment/Plan ASSESSMENT: 1. Acute hypoxemic respiratory failure, most likely secondary to acute COPD exacerbation. 2. Acute COPD exacerbation. 3. Pneumonia. 4. Sick sinus syndrome status post pacemaker. 5. Diabetes type 2. 6. Prostate cancer. 7. Hyperkalemia. 8. Insulin induced hyperglycemia. 9. Prostate enlargement. 10. Leukocytosis 11. RBBB 12 Gastritis PLAN: 1. Med/Surg 2. D/C Solu-Medrol IV Per Pulmonary consult=Dr. Obrien. 3. Endocrinology=Dr To. Monitor blood glucose level closely. 4. antibiotic= tegecycline. ID=Dr Villa 5. Code status is Full Code. DVT prophylaxis, he is on Eliquis. 6. S/P endoscopy 05/06/19=gastritis Idris Lugo MD Jun 01, 2019 15:40
[2019-06-01 16:00] VITALS: BP 130/82
--- NOTE | 2019-06-01 19:38 | Pulmonology Progress Note ---
Assessment/Plan Problems: (1) Interstitial pneumonia (2) Respiratory failure with hypoxia (3) COPD exacerbation (4) Nosocomial pneumonia (5) Pacemaker (6) Anemia (7) Prostate cancer (8) Diabetes mellitus Assessment/Plan still has thick phlegm, repeat CXR shows interstitial edema, but BNP is normal and Echo showed EF of 55 % Pt needs PRN BIPAP but his CT of chest didn't show any Endstage emphysema perplexing case Subjective ROS Limited/Unobtainable: No Allergies: Coded Allergies: No Known Allergies (Unverified , 10/24/16) Objective Last 24 Hour Vital Signs Date Time Temp Pulse Resp B/P (MAP) Pulse Ox O2 Delivery O2 Flow Rate FiO2 06/01/19 17:35 77 16 96 30 06/01/19 16:00 98.5 81 22 130/82 (98) 94 06/01/19 14:30 74 16 96 30 06/01/19 12:45 78 16 95 30 06/01/19 12:00 98.0 84 22 139/90 (106) 94 06/01/19 11:28 77 16 96 30 06/01/19 09:59 79 18 95 Nasal Cannula 3.0 32 76 18 92 06/01/19 09:55 79 19 95 30 06/01/19 09:00 Nasal Cannula 3.0 06/01/19 08:00 98.5 74 22 142/80 (100) 93 06/01/19 07:15 84 18 94 Nasal Cannula 3.0 32 06/01/19 07:14 94 Nasal Cannula 3.0 32 06/01/19 00:37 77 20 97 Nasal Cannula 3.0 32 74 20 94 06/01/19 00:00 97.9 73 20 124/85 (98) 92 05/31/19 21:00 Nasal Cannula 3.0 05/31/19 20:00 97.9 75 17 102/74 (83) 92 05/31/19 19:42 93 Nasal Cannula 3.0 32 05/31/19 19:40 74 18 93 Nasal Cannula 3.0 32 Intake and Output 05/31/19 06/01/19 19:00 07:00 Intake Total 900 ml 1360 ml Output Total 1000 ml 950 ml Balance -100 ml 410 ml Intake Oral 900 ml 1360 ml Output Urine Total 1000 ml 950 ml Objective General Appearance: WD/WN HEENT: normocephalic, atraumatic Respiratory/Chest: chest wall non-tender, loud rhonchi Breasts: no masses Cardiovascular: normal peripheral pulses Abdomen: normal bowel sounds, soft, non tender Genitourinary: normal external genitalia Extremities: no cyanosis Skin: no rash 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 Laboratory Tests 06/01/19 09:50: White Blood Count 7.0, Red Blood Count 4.91, Hemoglobin 14.6, Hematocrit 43.6, Mean Corpuscular Volume 89, Mean Corpuscular Hemoglobin 29.7, Mean Corpuscular Hemoglobin Concent 33.5, Red Cell Distribution Width 13.4, Platelet Count 322, Mean Platelet Volume 5.8L, Neutrophils (%) (Auto) 48.3, Lymphocytes (%) (Auto) 31.2, Monocytes (%) (Auto) 4.7, Eosinophils (%) (Auto) 14.0H, Basophils (%) ( Auto) 1.8, Sodium Level 139, Potassium Level 4.4, Chloride Level 104, Carbon Dioxide Level 27, Anion Gap 8, Blood Urea Nitrogen 22H, Creatinine 1.1, Estimat Glomerular Filtration Rate > 60, Glucose Level 178H, Calcium Level 8.8, Total Bilirubin 0.3, Aspartate Amino Transf (AST/SGOT) 16, Alanine Aminotransferase ( ALT/SGPT) 26, Alkaline Phosphatase 110, Pro-B-Type Natriuretic Peptide 93, Total Protein 6.6, Albumin 3.1L, Globulin 3.5, Albumin/Globulin Ratio 0.9L Current Medications Medications (Trade) Dose Ordered Sig/Dejon Route PRN Reason Start Time Stop Time Status Last Admin Dose Admin Acetaminophen (Tylenol) 650 mg Q4H PRN ORAL Mild Pain/Temp > 100.5 05/21/19 18:14 06/15/19 18:13 05/29/19 13:04 Acetaminophen/ Hydrocodone Bitart ([place] 5/325) 1 tab Q6H PRN ORAL Moderate Pain (Pain Scale 4-6) 05/29/19 18:45 06/05/19 18:44 05/31/19 21:41 Albuterol/ Ipratropium (Albuterol/ Ipratropium) 3 ml Q4H PRN HHN Shortness of Breath 06/01/19 09:30 3/29/20 09:29 06/01/19 09:46 Apixaban (Eliquis) 5 mg BID ORAL 05/22/19 09:00 06/21/19 08:59 06/01/19 18:25 Docusate Sodium (Colace) 100 mg TWICE A DAY ORAL 05/22/19 09:00 06/21/19 08:59 06/01/19 18:25 Escitalopram Oxalate (Lexapro) 10 mg DAILY ORAL 05/22/19 09:00 06/22/19 08:59 06/01/19 09:14 Levothyroxine Sodium (Synthroid) 100 mcg ACBREAKFAST ORAL 05/27/19 06:30 06/26/19 06:29 06/01/19 06:16 Nitroglycerin (Ntg) 0.4 mg Q5M X 3 DOSES PRN SL Prn Chest Pain 05/21/19 18:14 06/06/19 18:13 Pantoprazole (Protonix) 40 mg EVERY 12 HOURS ORAL 05/21/19 21:00 06/05/19 20:59 06/01/19 09:14 Polyethylene Glycol (Miralax) 17 gm BEDTIME ORAL 05/21/19 21:00 06/20/19 20:59 Quetiapine Fumarate (SEROqueL) 25 mg EVERY 6 HOURS PRN ORAL For Anxiety 05/22/19 00:00 07/06/19 00:00 Goldie Obrien MD Jun 01, 2019 19:38
[2019-06-01] MEDS: Miralax 17gm pkt ORAL SCH (22:02)
[2019-06-01] MEDS: HYDROcodone/Acetamin 5/325 tab ORAL PRN (22:13)
--- NOTE | 2019-06-01 23:00 | Progress Note ---
DATE: 06/01/2019 SUBJECTIVE: The patient is in bed. No acute distress noted. He is very irritable, uncooperative with the examination. Poor insight. MENTAL STATUS EXAMINATION: Alert, oriented times self, place, and situation. Mood is neutral. Affect is flat. Thought process is concrete. Thought content, no suicidal or homicidal ideation. Cognition is impaired. Insight and judgment is impaired. ASSESSMENT: Stable. PLAN: 1. We will continue current medications. 2. Provide the patient with reality orientation. 3. Discussed with the nurse. Ottoniel Hillman M.D. DR: RENEE JOB#: [id number] CC:
[2019-06-02] VITALS: BP 142/76
[2019-06-02] MEDS: Albuterol/Ipratropium 3ml neb HHN PRN ×2 (04:41→19:30)
[2019-06-02 08:00] VITALS: BP 114/87
--- NOTE | 2019-06-02 09:01 | General Progress Note ---
Assessment/Plan Problem List: (1) Diabetes mellitus ICD Codes: E11.9 - Type 2 diabetes mellitus without complications SNOMED: 85470490 (2) Respiratory failure with hypoxia ICD Codes: J96.91 - Respiratory failure, unspecified with hypoxia SNOMED: 41391499286265308 (3) COPD exacerbation ICD Codes: J44.1 - Chronic obstructive pulmonary disease with (acute) exacerbation SNOMED: 720651150 (4) Hypothyroid ICD Codes: E03.9 - Hypothyroidism, unspecified SNOMED: 54237782 (5) Pacemaker ICD Codes: Z95.0 - Presence of cardiac pacemaker SNOMED: 208247098 (6) Prostate cancer ICD Codes: C61 - Malignant neoplasm of prostate SNOMED: 800457883 Status: stable, not improved, deteriorating Assessment/Plan: s/p EGD stable H&H needs out patient fu fo colonoscopy repeat stool ob pending good po intake fu pulm recs abx fu labs Subjective ROS Limited/Unobtainable: No Allergies: Coded Allergies: No Known Allergies (Unverified , 10/24/16) Objective Last 24 Hour Vital Signs Date Time Temp Pulse Resp B/P (MAP) Pulse Ox O2 Delivery O2 Flow Rate FiO2 06/02/19 04:42 86 18 98 Nasal Cannula 3.0 32 84 20 94 06/02/19 00:00 98.6 85 20 142/76 (98) 92 06/01/19 21:42 72 18 98 Nasal Cannula 3.0 32 06/01/19 21:42 98 Nasal Cannula 3.0 32 06/01/19 21:41 76 18 99 Nasal Cannula 3.0 32 72 18 98 06/01/19 21:00 Nasal Cannula 3.0 06/01/19 17:35 77 16 96 30 06/01/19 16:00 98.5 81 22 130/82 (98) 94 06/01/19 14:30 74 16 96 30 06/01/19 12:45 78 16 95 30 06/01/19 12:00 98.0 84 22 139/90 (106) 94 06/01/19 11:28 77 16 96 30 06/01/19 09:59 79 18 95 Nasal Cannula 3.0 32 76 18 92 06/01/19 09:55 79 19 95 30 Intake and Output 06/01/19 06/02/19 19:00 07:00 Intake Total 480 ml Output Total 1575 ml Balance -1095 ml Intake Oral 480 ml Output Urine Total 1575 ml Laboratory Tests 06/01/19 09:50: White Blood Count 7.0, Red Blood Count 4.91, Hemoglobin 14.6, Hematocrit 43.6, Mean Corpuscular Volume 89, Mean Corpuscular Hemoglobin 29.7, Mean Corpuscular Hemoglobin Concent 33.5, Red Cell Distribution Width 13.4, Platelet Count 322, Mean Platelet Volume 5.8L, Neutrophils (%) (Auto) 48.3, Lymphocytes (%) (Auto) 31.2, Monocytes (%) (Auto) 4.7, Eosinophils (%) (Auto) 14.0H, Basophils (%) ( Auto) 1.8, Sodium Level 139, Potassium Level 4.4, Chloride Level 104, Carbon Dioxide Level 27, Anion Gap 8, Blood Urea Nitrogen 22H, Creatinine 1.1, Estimat Glomerular Filtration Rate > 60, Glucose Level 178H, Calcium Level 8.8, Total Bilirubin 0.3, Aspartate Amino Transf (AST/SGOT) 16, Alanine Aminotransferase ( ALT/SGPT) 26, Alkaline Phosphatase 110, Pro-B-Type Natriuretic Peptide 93, Total Protein 6.6, Albumin 3.1L, Globulin 3.5, Albumin/Globulin Ratio 0.9L Height (Feet): 6 Height (Inches): 0.00 Weight (Pounds): 0 General Appearance: no apparent distress EENT: normal ENT inspection Neck: supple Cardiovascular: normal rate Respiratory/Chest: decreased breath sounds Abdomen: normal bowel sounds, non tender, soft Extremities: non-tender Christiano La MD Jun 02, 2019 09:00
[2019-06-02] MEDS: Docusate 100mg cap ORAL SCH ×2 (09:09→17:31)
[2019-06-02] MEDS: Eliquis 5mg tablet ORAL SCH ×2 (09:09→17:31)
[2019-06-02] MEDS: HYDROcodone/Acetamin 5/325 tab ORAL PRN ×2 (09:16→21:29)
[2019-06-02 12:00] VITALS: BP 119/78
--- NOTE | 2019-06-02 12:35 | Internal Med Progress Note ---
Subjective Date of Service: Jun 02, 2019 Physician Name BrittneyIdris Attending Physician Jewel Giraldo MD Current Medications Medications (Trade) Dose Ordered Sig/Dejon Route PRN Reason Start Time Stop Time Status Last Admin Dose Admin Acetaminophen (Tylenol) 650 mg Q4H PRN ORAL Mild Pain/Temp > 100.5 05/21/19 18:14 06/15/19 18:13 05/29/19 13:04 Acetaminophen/ Hydrocodone Bitart ([place] 5/325) 1 tab Q6H PRN ORAL Moderate Pain (Pain Scale 4-6) 05/29/19 18:45 06/05/19 18:44 06/02/19 09:16 Albuterol/ Ipratropium (Albuterol/ Ipratropium) 3 ml Q4H PRN HHN Shortness of Breath 06/01/19 09:30 06/06/19 09:29 06/02/19 04:41 Apixaban (Eliquis) 5 mg BID ORAL 05/22/19 09:00 06/21/19 08:59 06/02/19 09:09 Docusate Sodium (Colace) 100 mg TWICE A DAY ORAL 05/22/19 09:00 06/21/19 08:59 06/02/19 09:09 Escitalopram Oxalate (Lexapro) 10 mg DAILY ORAL 05/22/19 09:00 06/22/19 08:59 06/02/19 09:09 Levothyroxine Sodium (Synthroid) 100 mcg ACBREAKFAST ORAL 05/27/19 06:30 06/26/19 06:29 06/01/19 06:16 Nitroglycerin (Ntg) 0.4 mg Q5M X 3 DOSES PRN SL Prn Chest Pain 05/21/19 18:14 06/06/19 18:13 Pantoprazole (Protonix) 40 mg EVERY 12 HOURS ORAL 05/21/19 21:00 06/05/19 20:59 06/02/19 09:09 Polyethylene Glycol (Miralax) 17 gm BEDTIME ORAL 05/21/19 21:00 06/20/19 20:59 06/01/19 22:02 Quetiapine Fumarate (SEROqueL) 25 mg EVERY 6 HOURS PRN ORAL For Anxiety 05/22/19 00:00 07/06/19 00:00 Allergies: Coded Allergies: No Known Allergies (Unverified , 10/24/16) ROS Limited/Unobtainable: No Constitutional: Reports: no symptoms HEENT: Reports: no symptoms Cardiovascular: Reports: no symptoms Respiratory: Reports: no symptoms Gastrointestinal/Abdominal: Reports: no symptoms Genitourinary: Reports: no symptoms Neurologic/Psychiatric: Reports: no symptoms Subjective 73 YO M admitted with COPD exacerbation. Now respiratory failure and pneumonia. Cover for Int Med-DR Giraldo. S/P endoscopy 05/06/19. Off BIPAP. Objective Last Vital Signs Date Time Temp Pulse Resp B/P (MAP) Pulse Ox O2 Delivery O2 Flow Rate FiO2 06/02/19 12:07 87 18 93 Nasal Cannula 3.0 32 06/02/19 09:46 98.6 06/02/19 08:00 114/87 (96) Intake and Output 06/01/19 06/02/19 19:00 07:00 Intake Total 480 ml Output Total 1575 ml Balance -1095 ml Intake Oral 480 ml Output Urine Total 1575 ml Objective PHYSICAL EXAMINATION: GENERAL: The patient is awake, responsive, no acute distress. HEAD AND NECK: Pupils are equal and reactive to light. Extraocular muscles intact. Neck was supple. No JVD. LUNGS: Nasal canula;The patient has expiratory wheezes noted. Tachypneic. No rhonchi was noted. HEART: S1, S2. Irregular. No murmur. The patient has a pacemaker in the left-sided chest wall. ABDOMEN: Soft, nondistended, nontender. Mildly obese. EXTREMITIES: No cyanosis, clubbing, edema. NEUROLOGIC: Cranial nerves II through XII grossly normal. Motor is 5/5 in all extremities. Gait is intact. GENITOURINARY: It was noted the patient has a [place] catheter. RECTAL: Refused and deferred. PSYCHIATRIC: Mood and affect is intact. Assessment/Plan Assessment/Plan ASSESSMENT: 1. Acute hypoxemic respiratory failure, most likely secondary to acute COPD exacerbation. 2. Acute COPD exacerbation. 3. Pneumonia. 4. Sick sinus syndrome status post pacemaker. 5. Diabetes type 2. 6. Prostate cancer. 7. Hyperkalemia. 8. Insulin induced hyperglycemia. 9. Prostate enlargement. 10. Leukocytosis 11. RBBB 12 Gastritis PLAN: 1. Med/Surg 2. D/C Solu-Medrol IV Per Pulmonary consult=Dr. Obrien. 3. Endocrinology=Dr To. Monitor blood glucose level closely. 4. antibiotic= S/P tegecycline. ID=Dr Villa 5. Code status is Full Code. DVT prophylaxis, he is on Eliquis. 6. S/P endoscopy 05/06/19=gastritis Idris Lugo MD Jun 02, 2019 12:35
--- NOTE | 2019-06-02 15:27 | Pulmonology Progress Note ---
Assessment/Plan Problems: (1) Interstitial pneumonia (2) Respiratory failure with hypoxia (3) COPD exacerbation (4) Nosocomial pneumonia (5) Pacemaker (6) Anemia (7) Prostate cancer (8) Diabetes mellitus Assessment/Plan still has thick phlegm, repeat CXR shows interstitial edema, but BNP is normal and Echo showed EF of 55 % Pt needs PRN BIPAP but his CT of chest didn't show any Endstage emphysema perplexing case Subjective ROS Limited/Unobtainable: No Constitutional: Reports: no symptoms HEENT: Repors: no symptoms Allergies: Coded Allergies: No Known Allergies (Unverified , 10/24/16) Objective Last 24 Hour Vital Signs Date Time Temp Pulse Resp B/P (MAP) Pulse Ox O2 Delivery O2 Flow Rate FiO2 06/02/19 12:07 87 18 93 Nasal Cannula 3.0 32 06/02/19 12:07 93 Nasal Cannula 3.0 32 06/02/19 12:00 98.9 74 20 119/78 (92) 90 06/02/19 09:56 Nasal Cannula 3.0 06/02/19 09:46 98.6 06/02/19 08:00 98.9 104 20 114/87 (96) 89 06/02/19 04:42 86 18 98 Nasal Cannula 3.0 32 84 20 94 06/02/19 00:00 98.6 85 20 142/76 (98) 92 06/01/19 21:42 72 18 98 Nasal Cannula 3.0 32 06/01/19 21:42 98 Nasal Cannula 3.0 32 06/01/19 21:41 76 18 99 Nasal Cannula 3.0 32 72 18 98 06/01/19 21:00 Nasal Cannula 3.0 06/01/19 17:35 77 16 96 30 06/01/19 16:00 98.5 81 22 130/82 (98) 94 Intake and Output 06/01/19 06/02/19 19:00 07:00 Intake Total 480 ml Output Total 1575 ml Balance -1095 ml Intake Oral 480 ml Output Urine Total 1575 ml Objective General Appearance: WD/WN HEENT: normocephalic, atraumatic Respiratory/Chest: chest wall non-tender, loud rhonchi Breasts: no masses Cardiovascular: normal peripheral pulses Abdomen: normal bowel sounds, soft, non tender Genitourinary: normal external genitalia Extremities: no cyanosis Skin: no rash 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 Current Medications Medications (Trade) Dose Ordered Sig/Dejon Route PRN Reason Start Time Stop Time Status Last Admin Dose Admin Acetaminophen (Tylenol) 650 mg Q4H PRN ORAL Mild Pain/Temp > 100.5 05/21/19 18:14 06/15/19 18:13 05/29/19 13:04 Acetaminophen/ Hydrocodone Bitart ([place] 5/325) 1 tab Q6H PRN ORAL Moderate Pain (Pain Scale 4-6) 05/29/19 18:45 06/05/19 18:44 06/02/19 09:16 Albuterol/ Ipratropium (Albuterol/ Ipratropium) 3 ml Q4H PRN HHN Shortness of Breath 06/01/19 09:30 06/06/19 09:29 06/02/19 04:41 Apixaban (Eliquis) 5 mg BID ORAL 05/22/19 09:00 06/21/19 08:59 06/02/19 09:09 Docusate Sodium (Colace) 100 mg TWICE A DAY ORAL 05/22/19 09:00 06/21/19 08:59 06/02/19 09:09 Escitalopram Oxalate (Lexapro) 10 mg DAILY ORAL 05/22/19 09:00 06/22/19 08:59 06/02/19 09:09 Levothyroxine Sodium (Synthroid) 100 mcg ACBREAKFAST ORAL 05/27/19 06:30 06/26/19 06:29 06/01/19 06:16 Nitroglycerin (Ntg) 0.4 mg Q5M X 3 DOSES PRN SL Prn Chest Pain 05/21/19 18:14 06/06/19 18:13 Pantoprazole (Protonix) 40 mg EVERY 12 HOURS ORAL 05/21/19 21:00 06/05/19 20:59 06/02/19 09:09 Polyethylene Glycol (Miralax) 17 gm BEDTIME ORAL 05/21/19 21:00 06/20/19 20:59 06/01/19 22:02 Quetiapine Fumarate (SEROqueL) 25 mg EVERY 6 HOURS PRN ORAL For Anxiety 05/22/19 00:00 07/06/19 00:00 Goldie Obrien MD Jun 02, 2019 15:27
[2019-06-02 16:00] VITALS: BP 114/74
[2019-06-02 20:00] VITALS: BP 118/83
[2019-06-02] MEDS: Miralax 17gm pkt ORAL SCH (21:00)
[2019-06-03] VITALS: BP 128/89
[2019-06-03] MEDS: HYDROcodone/Acetamin 5/325 tab ORAL PRN ×3 (06:22→18:20)
[2019-06-03 07:32] VITALS: BP 138/80
[2019-06-03] MEDS: Eliquis 5mg tablet ORAL SCH ×2 (08:16→17:45)
[2019-06-03] MEDS: Docusate 100mg cap ORAL SCH ×2 (08:18→17:45)
--- NOTE | 2019-06-03 09:07 | General Progress Note ---
Assessment/Plan Problem List: (1) Diabetes mellitus ICD Codes: E11.9 - Type 2 diabetes mellitus without complications SNOMED: 49615730 (2) Respiratory failure with hypoxia ICD Codes: J96.91 - Respiratory failure, unspecified with hypoxia SNOMED: 47745759968612795 (3) COPD exacerbation ICD Codes: J44.1 - Chronic obstructive pulmonary disease with (acute) exacerbation SNOMED: 295853749 (4) Hypothyroid ICD Codes: E03.9 - Hypothyroidism, unspecified SNOMED: 27003106 (5) Pacemaker ICD Codes: Z95.0 - Presence of cardiac pacemaker SNOMED: 925115727 (6) Prostate cancer ICD Codes: C61 - Malignant neoplasm of prostate SNOMED: 088787140 Status: stable, not improved, deteriorating Assessment/Plan: s/p EGD stable H&H needs out patient fu fo colonoscopy repeat stool ob pending good po intake fu pulm recs abx fu labs Subjective ROS Limited/Unobtainable: No Allergies: Coded Allergies: No Known Allergies (Unverified , 10/24/16) Objective Last 24 Hour Vital Signs Date Time Temp Pulse Resp B/P (MAP) Pulse Ox O2 Delivery O2 Flow Rate FiO2 06/03/19 08:36 Nasal Cannula 3.0 06/03/19 08:06 73 18 94 Nasal Cannula 3.0 32 06/03/19 08:05 94 Nasal Cannula 3.0 32 06/03/19 07:32 97.8 71 21 138/80 (99) 95 06/03/19 00:00 97.9 105 20 128/89 (102) 90 06/02/19 21:00 Nasal Cannula 3.0 06/02/19 20:00 97.2 101 18 118/83 (95) 90 06/02/19 19:32 92 Nasal Cannula 3.0 32 06/02/19 19:32 72 20 95 Nasal Cannula 3.0 32 80 20 92 06/02/19 19:31 80 18 92 Nasal Cannula 3.0 32 06/02/19 16:00 98.4 68 20 114/74 (87) 90 06/02/19 12:07 87 18 93 Nasal Cannula 3.0 32 06/02/19 12:07 93 Nasal Cannula 3.0 32 06/02/19 12:00 98.9 74 20 119/78 (92) 90 06/02/19 09:56 Nasal Cannula 3.0 06/02/19 09:46 98.6 Intake and Output 06/02/19 06/03/19 19:00 07:00 Intake Total 1200 ml 780 ml Output Total 1850 ml 800 ml Balance -650 ml -20 ml Intake Oral 1200 ml 780 ml Output Urine Total 1850 ml 800 ml # Bowel Movements 1 Height (Feet): 6 Height (Inches): 0.00 Weight (Pounds): 0 General Appearance: no apparent distress EENT: normal ENT inspection Neck: supple Cardiovascular: normal rate Respiratory/Chest: decreased breath sounds Abdomen: normal bowel sounds, non tender, soft Extremities: non-tender Christiano La MD Jun 03, 2019 09:07
--- NOTE | 2019-06-03 11:54 | Infectious Diseases Prog Note ---
Assessment/Plan Assessment/Plan Assessment: UCX : dale : colonizer COPD exacerbation , PNA, Sp -05/12 CXR: Bilateral interstitial disease, appearing similar to the previous exam,likely represents combination of senescent change and persistent or recurrent interstitial congestion -04/29 CXRLThere is bilateral interstitial congestion again demonstrated, appearing unchanged. No focal airspace consolidation. There is some atelectasis at the left lung base. -04/27 CXR: Borderline cardiomegaly. Questionable mild interstitial congestion , new or increased from previous study if real. -04/21 CTA chest:Somewhat limited exam, due to motion artifact. No definite evidence of pulmonary embolus or other acute thoracic vascular pathology. Borderline cardiomegaly. Diffuse bilateral pulmonary parenchymal groundglass opacity. Interspersed small bullae digestive this is due to COPD changes, but could also indicate a component of pulmonary edema. Considerable consolidation in the right lower lobe, likely pneumonia. Less extensive consolidation and atelectasis is seen at the left lung base. Pacemaker, degenerative spondylosis incidentally noted sp cx normal resp michael -04/19 CXR: Mild pulmonary vascular congestion -04/16 CXR: No acute disease -04/13 CXR: Suspected mild pulmonary vascular congestion. Correlate clinically -04/08 CXR: Mild pulmonary vascular congestion suspected Afebrile Leukocytosis,(pn steroids); improving HIV neg Hyperglycemia Acute hypoxic respiratory failure ,on bipap PRN COPD CAD CHF prostate cancer s/p PPM former smoker Plan: monitor pt off of AB RX - 05/30 sp Tygacil # 7/7 (empirical Rx ) - 05/27 SP - Vfend # 9 (as per pul ) - 05/24 Sp Merrem # 5 - 05/22 Sp Amikacin INH # 12 - 05/05 Sp Ertapenem # 7/7 - 05/03 sp Vancomycin # 5 -04/28 SP Zosyn #8 -04/15 SP Levaquin #7 -04/08 SP Ceftriaxone x1, Azithromycin x1 - Monitor CBC/CMP, temperatures -aspiration precautions - Fungitell - Galctomannan Thank you for this consultation. Will continue to follow along with you. Subjective Allergies: Coded Allergies: No Known Allergies (Unverified , 10/24/16) Subjective afebrile Objective Vital Signs Last 24 Hour Vital Signs Date Time Temp Pulse Resp B/P (MAP) Pulse Ox O2 Delivery O2 Flow Rate FiO2 06/03/19 08:36 Nasal Cannula 3.0 06/03/19 08:06 73 18 94 Nasal Cannula 3.0 32 06/03/19 08:05 94 Nasal Cannula 3.0 32 06/03/19 07:32 97.8 71 21 138/80 (99) 95 06/03/19 00:00 97.9 105 20 128/89 (102) 90 06/02/19 21:00 Nasal Cannula 3.0 06/02/19 20:00 97.2 101 18 118/83 (95) 90 06/02/19 19:32 92 Nasal Cannula 3.0 32 06/02/19 19:32 72 20 95 Nasal Cannula 3.0 32 80 20 92 06/02/19 19:31 80 18 92 Nasal Cannula 3.0 32 06/02/19 16:00 98.4 68 20 114/74 (87) 90 06/02/19 12:07 87 18 93 Nasal Cannula 3.0 32 06/02/19 12:07 93 Nasal Cannula 3.0 32 06/02/19 12:00 98.9 74 20 119/78 (92) 90 Height (Feet): 6 Height (Inches): 0.00 Weight (Pounds): 0 HEENT: anicteric Respiratory/Chest: no respiratory distress Cardiovascular: regular rhythm Abdomen: no organomegaly Current Medications Medications (Trade) Dose Ordered Sig/Dejon Route PRN Reason Start Time Stop Time Status Last Admin Dose Admin Acetaminophen (Tylenol) 650 mg Q4H PRN ORAL Mild Pain/Temp > 100.5 05/21/19 18:14 06/15/19 18:13 05/29/19 13:04 Acetaminophen/ Hydrocodone Bitart ([place] 5/325) 1 tab Q6H PRN ORAL Moderate Pain (Pain Scale 4-6) 05/29/19 18:45 06/05/19 18:44 06/03/19 06:22 Albuterol/ Ipratropium (Albuterol/ Ipratropium) 3 ml Q4H PRN HHN Shortness of Breath 06/01/19 09:30 06/06/19 09:29 06/02/19 19:30 Apixaban (Eliquis) 5 mg BID ORAL 05/22/19 09:00 06/21/19 08:59 06/03/19 08:16 Docusate Sodium (Colace) 100 mg TWICE A DAY ORAL 05/22/19 09:00 06/21/19 08:59 06/02/19 17:31 Escitalopram Oxalate (Lexapro) 10 mg DAILY ORAL 05/22/19 09:00 06/22/19 08:59 06/03/19 08:16 Levothyroxine Sodium (Synthroid) 100 mcg ACBREAKFAST ORAL 05/27/19 06:30 06/26/19 06:29 06/03/19 06:22 Nitroglycerin (Ntg) 0.4 mg Q5M X 3 DOSES PRN SL Prn Chest Pain 05/21/19 18:14 06/06/19 18:13 Pantoprazole (Protonix) 40 mg EVERY 12 HOURS ORAL 05/21/19 21:00 06/05/19 20:59 06/03/19 08:16 Polyethylene Glycol (Miralax) 17 gm BEDTIME ORAL 05/21/19 21:00 06/20/19 20:59 06/01/19 22:02 Quetiapine Fumarate (SEROqueL) 25 mg EVERY 6 HOURS PRN ORAL For Anxiety 05/22/19 00:00 07/06/19 00:00 Robert Canela MD Jun 03, 2019 11:54
[2019-06-03 12:00] VITALS: BP 141/97
--- NOTE | 2019-06-03 13:50 | Pulmonology Progress Note ---
Assessment/Plan Problems: (1) Interstitial pneumonia (2) Respiratory failure with hypoxia (3) COPD exacerbation (4) Nosocomial pneumonia (5) Pacemaker (6) Anemia (7) Prostate cancer (8) Diabetes mellitus Assessment/Plan still has thick phlegm, repeat CXR shows interstitial edema, but BNP is normal and Echo showed EF of 55 % Pt needs PRN BIPAP but his CT of chest didn't show any Endstage emphysema perplexing case Subjective ROS Limited/Unobtainable: No Constitutional: Reports: no symptoms HEENT: Repors: no symptoms Allergies: Coded Allergies: No Known Allergies (Unverified , 10/24/16) Objective Last 24 Hour Vital Signs Date Time Temp Pulse Resp B/P (MAP) Pulse Ox O2 Delivery O2 Flow Rate FiO2 06/03/19 12:00 98.0 103 20 141/97 (112) 93 06/03/19 08:36 Nasal Cannula 3.0 06/03/19 08:06 73 18 94 Nasal Cannula 3.0 32 06/03/19 08:05 94 Nasal Cannula 3.0 32 06/03/19 07:32 97.8 71 21 138/80 (99) 95 06/03/19 00:00 97.9 105 20 128/89 (102) 90 06/02/19 21:00 Nasal Cannula 3.0 06/02/19 20:00 97.2 101 18 118/83 (95) 90 06/02/19 19:32 92 Nasal Cannula 3.0 32 06/02/19 19:32 72 20 95 Nasal Cannula 3.0 32 80 20 92 06/02/19 19:31 80 18 92 Nasal Cannula 3.0 32 06/02/19 16:00 98.4 68 20 114/74 (87) 90 Intake and Output 06/02/19 06/03/19 19:00 07:00 Intake Total 1200 ml 780 ml Output Total 1850 ml 800 ml Balance -650 ml -20 ml Intake Oral 1200 ml 780 ml Output Urine Total 1850 ml 800 ml # Bowel Movements 1 Objective General Appearance: WD/WN HEENT: normocephalic, atraumatic Respiratory/Chest: chest wall non-tender, loud rhonchi Breasts: no masses Cardiovascular: normal peripheral pulses Abdomen: normal bowel sounds, soft, non tender Genitourinary: normal external genitalia Extremities: no cyanosis Skin: no rash Neurologic/Psychiatric: branner machine tender II-XII grossly normal Current Medications Medications (Trade) Dose Ordered Sig/Dejon Route PRN Reason Start Time Stop Time Status Last Admin Dose Admin Acetaminophen (Tylenol) 650 mg Q4H PRN ORAL Mild Pain/Temp > 100.5 05/21/19 18:14 06/15/19 18:13 05/29/19 13:04 Acetaminophen/ Hydrocodone Bitart ([place] 5/325) 1 tab Q6H PRN ORAL Moderate Pain (Pain Scale 4-6) 05/29/19 18:45 06/05/19 18:44 06/03/19 12:33 Albuterol/ Ipratropium (Albuterol/ Ipratropium) 3 ml Q4H PRN HHN Shortness of Breath 06/01/19 09:30 06/06/19 09:29 06/02/19 19:30 Apixaban (Eliquis) 5 mg BID ORAL 05/22/19 09:00 06/21/19 08:59 06/03/19 08:16 Docusate Sodium (Colace) 100 mg TWICE A DAY ORAL 05/22/19 09:00 06/21/19 08:59 06/02/19 17:31 Escitalopram Oxalate (Lexapro) 10 mg DAILY ORAL 05/22/19 09:00 06/22/19 08:59 06/03/19 08:16 Levothyroxine Sodium (Synthroid) 100 mcg ACBREAKFAST ORAL 05/27/19 06:30 06/26/19 06:29 06/03/19 06:22 Nitroglycerin (Ntg) 0.4 mg Q5M X 3 DOSES PRN SL Prn Chest Pain 05/21/19 18:14 06/06/19 18:13 Pantoprazole (Protonix) 40 mg EVERY 12 HOURS ORAL 05/21/19 21:00 06/05/19 20:59 06/03/19 08:16 Polyethylene Glycol (Miralax) 17 gm BEDTIME ORAL 05/21/19 21:00 06/20/19 20:59 06/01/19 22:02 Quetiapine Fumarate (SEROqueL) 25 mg EVERY 6 HOURS PRN ORAL For Anxiety 05/22/19 00:00 07/06/19 00:00 Goldie Obrien MD Jun 03, 2019 13:50
--- NOTE | 2019-06-03 17:54 | Internal Med Progress Note ---
Subjective Date of Service: Jun 03, 2019 Physician Name BrittneyIdris Attending Physician Jewel Giraldo MD Current Medications Medications (Trade) Dose Ordered Sig/Dejon Route PRN Reason Start Time Stop Time Status Last Admin Dose Admin Acetaminophen (Tylenol) 650 mg Q4H PRN ORAL Mild Pain/Temp > 100.5 05/21/19 18:14 06/15/19 18:13 05/29/19 13:04 Acetaminophen/ Hydrocodone Bitart ([place] 5/325) 1 tab Q6H PRN ORAL Moderate Pain (Pain Scale 4-6) 05/29/19 18:45 06/05/19 18:44 06/03/19 12:33 Albuterol/ Ipratropium (Albuterol/ Ipratropium) 3 ml Q4H PRN HHN Shortness of Breath 06/01/19 09:30 06/06/19 09:29 06/02/19 19:30 Apixaban (Eliquis) 5 mg BID ORAL 05/22/19 09:00 06/21/19 08:59 06/03/19 17:45 Docusate Sodium (Colace) 100 mg TWICE A DAY ORAL 05/22/19 09:00 06/21/19 08:59 06/02/19 17:31 Escitalopram Oxalate (Lexapro) 10 mg DAILY ORAL 05/22/19 09:00 06/22/19 08:59 06/03/19 08:16 Levothyroxine Sodium (Synthroid) 100 mcg ACBREAKFAST ORAL 05/27/19 06:30 06/26/19 06:29 06/03/19 06:22 Nitroglycerin (Ntg) 0.4 mg Q5M X 3 DOSES PRN SL Prn Chest Pain 05/21/19 18:14 06/06/19 18:13 Pantoprazole (Protonix) 40 mg EVERY 12 HOURS ORAL 05/21/19 21:00 06/05/19 20:59 06/03/19 08:16 Polyethylene Glycol (Miralax) 17 gm BEDTIME ORAL 05/21/19 21:00 06/20/19 20:59 06/01/19 22:02 Quetiapine Fumarate (SEROqueL) 25 mg EVERY 6 HOURS PRN ORAL For Anxiety 05/22/19 00:00 07/06/19 00:00 Allergies: Coded Allergies: No Known Allergies (Unverified , 10/24/16) ROS Limited/Unobtainable: No Constitutional: Reports: no symptoms HEENT: Reports: no symptoms Cardiovascular: Reports: no symptoms Respiratory: Reports: no symptoms Gastrointestinal/Abdominal: Reports: no symptoms Genitourinary: Reports: no symptoms Neurologic/Psychiatric: Reports: no symptoms Subjective 73 YO M admitted with COPD exacerbation. Now respiratory failure and pneumonia. Cover for Int Med-DR Giraldo. S/P endoscopy 05/06/19. Off BIPAP. Objective Last Vital Signs Date Time Temp Pulse Resp B/P (MAP) Pulse Ox O2 Delivery O2 Flow Rate FiO2 06/03/19 12:00 98.0 103 20 141/97 (112) 93 06/03/19 08:36 Nasal Cannula 3.0 06/03/19 08:06 32 Intake and Output 06/02/19 06/03/19 19:00 07:00 Intake Total 1200 ml 780 ml Output Total 1850 ml 800 ml Balance -650 ml -20 ml Intake Oral 1200 ml 780 ml Output Urine Total 1850 ml 800 ml # Bowel Movements 1 Objective PHYSICAL EXAMINATION: GENERAL: The patient is awake, responsive, no acute distress. HEAD AND NECK: Pupils are equal and reactive to light. Extraocular muscles intact. Neck was supple. No JVD. LUNGS: Nasal canula;The patient has expiratory wheezes noted. Tachypneic. No rhonchi was noted. HEART: S1, S2. Irregular. No murmur. The patient has a pacemaker in the left-sided chest wall. ABDOMEN: Soft, nondistended, nontender. Mildly obese. EXTREMITIES: No cyanosis, clubbing, edema. NEUROLOGIC: Cranial nerves II through XII grossly normal. Motor is 5/5 in all extremities. Gait is intact. GENITOURINARY: It was noted the patient has a Montgomery catheter. RECTAL: Refused and deferred. PSYCHIATRIC: Mood and affect is intact. Assessment/Plan Assessment/Plan ASSESSMENT: 1. Acute hypoxemic respiratory failure, most likely secondary to acute COPD exacerbation. 2. Acute COPD exacerbation. 3. Pneumonia. 4. Sick sinus syndrome status post pacemaker. 5. Diabetes type 2. 6. Prostate cancer. 7. Hyperkalemia. 8. Insulin induced hyperglycemia. 9. Prostate enlargement. 10. Leukocytosis 11. RBBB 12 Gastritis PLAN: 1. Med/Surg 2. D/C Solu-Medrol IV Per Pulmonary consult=Dr. Obrien. 3. Endocrinology=Dr To. Monitor blood glucose level closely. 4. antibiotic= S/P tegecycline. ID=Dr Villa 5. Code status is Full Code. DVT prophylaxis, he is on Eliquis. 6. S/P endoscopy 05/06/19=gastritis Idris Lugo MD Jun 03, 2019 17:54
[2019-06-03 20:00] VITALS: BP 140/90
[2019-06-03] MEDS: Miralax 17gm pkt ORAL SCH (20:43)
[2019-06-04] VITALS: BP 118/89
[2019-06-04 04:00] VITALS: BP 125/82
[2019-06-04] MEDS: Docusate 100mg cap ORAL SCH ×2 (09:00→17:21)
[2019-06-04] MEDS: Eliquis 5mg tablet ORAL SCH ×2 (09:00→17:21)
--- NOTE | 2019-06-04 10:02 | General Progress Note ---
Assessment/Plan Problem List: (1) Diabetes mellitus ICD Codes: E11.9 - Type 2 diabetes mellitus without complications SNOMED: 78128915 (2) Respiratory failure with hypoxia ICD Codes: J96.91 - Respiratory failure, unspecified with hypoxia SNOMED: 75661682133848806 (3) COPD exacerbation ICD Codes: J44.1 - Chronic obstructive pulmonary disease with (acute) exacerbation SNOMED: 878781406 (4) Hypothyroid ICD Codes: E03.9 - Hypothyroidism, unspecified SNOMED: 86156126 (5) Pacemaker ICD Codes: Z95.0 - Presence of cardiac pacemaker SNOMED: 459763131 (6) Prostate cancer ICD Codes: C61 - Malignant neoplasm of prostate SNOMED: 768423037 Status: stable, not improved, deteriorating Assessment/Plan: s/p EGD stable H&H needs out patient fu fo colonoscopy repeat stool ob pending good po intake fu pulm recs abx fu labs Subjective Allergies: Coded Allergies: No Known Allergies (Unverified , 10/24/16) Objective Last 24 Hour Vital Signs Date Time Temp Pulse Resp B/P (MAP) Pulse Ox O2 Delivery O2 Flow Rate FiO2 06/04/19 09:00 Nasal Cannula 3.0 06/04/19 07:42 94 Nasal Cannula 3.0 32 06/04/19 07:42 89 18 94 Nasal Cannula 3.0 32 06/04/19 04:00 98.0 94 20 125/82 (96) 93 06/04/19 00:00 98.2 55 20 118/89 (99) 94 06/03/19 22:34 75 18 96 30 06/03/19 21:21 Nasal Cannula 3.0 06/03/19 20:00 98.3 105 20 140/90 (107) 92 06/03/19 19:20 93 Nasal Cannula 3.0 32 06/03/19 19:20 82 18 93 Nasal Cannula 3.0 32 06/03/19 12:00 98.0 103 20 141/97 (112) 93 Intake and Output 06/03/19 06/04/19 19:00 07:00 Intake Total 500 ml 360 ml Output Total 800 ml 650 ml Balance -300 ml -290 ml Intake Oral 500 ml 360 ml Output Urine Total 800 ml 650 ml Height (Feet): 6 Height (Inches): 0.00 Weight (Pounds): 0 General Appearance: alert EENT: normal ENT inspection Neck: supple Cardiovascular: normal rate Respiratory/Chest: decreased breath sounds Abdomen: normal bowel sounds, non tender, soft Extremities: non-tender Christiano La MD Jun 04, 2019 10:02
--- NOTE | 2019-06-04 11:46 | Infectious Diseases Prog Note ---
Assessment/Plan Assessment/Plan Assessment: UCX : dale : colonizer COPD exacerbation , PNA, Sp -05/12 CXR: Bilateral interstitial disease, appearing similar to the previous exam,likely represents combination of senescent change and persistent or recurrent interstitial congestion -04/29 CXRLThere is bilateral interstitial congestion again demonstrated, appearing unchanged. No focal airspace consolidation. There is some atelectasis at the left lung base. -04/27 CXR: Borderline cardiomegaly. Questionable mild interstitial congestion , new or increased from previous study if real. -04/21 CTA chest:Somewhat limited exam, due to motion artifact. No definite evidence of pulmonary embolus or other acute thoracic vascular pathology. Borderline cardiomegaly. Diffuse bilateral pulmonary parenchymal groundglass opacity. Interspersed small bullae digestive this is due to COPD changes, but could also indicate a component of pulmonary edema. Considerable consolidation in the right lower lobe, likely pneumonia. Less extensive consolidation and atelectasis is seen at the left lung base. Pacemaker, degenerative spondylosis incidentally noted sp cx normal resp michael -04/19 CXR: Mild pulmonary vascular congestion -04/16 CXR: No acute disease -04/13 CXR: Suspected mild pulmonary vascular congestion. Correlate clinically -04/08 CXR: Mild pulmonary vascular congestion suspected Afebrile Leukocytosis,(pn steroids); improving HIV neg Hyperglycemia Acute hypoxic respiratory failure ,on bipap PRN COPD CAD CHF prostate cancer s/p PPM former smoker Plan: monitor pt off of AB RX - 05/30 sp Tygacil # 7/7 (empirical Rx ) - 05/27 SP - Vfend # 9 (as per pul ) - 05/24 Sp Merrem # 5 - 05/22 Sp Amikacin INH # 12 - 05/05 Sp Ertapenem # 7/7 - 05/03 sp Vancomycin # 5 -04/28 SP Zosyn #8 -04/15 SP Levaquin #7 -04/08 SP Ceftriaxone x1, Azithromycin x1 - Monitor CBC/CMP, temperatures -aspiration precautions - Fungitell - Galctomannan Thank you for this consultation. Will continue to follow along with you. Subjective Allergies: Coded Allergies: No Known Allergies (Unverified , 10/24/16) Subjective afebrile Objective Vital Signs Last 24 Hour Vital Signs Date Time Temp Pulse Resp B/P (MAP) Pulse Ox O2 Delivery O2 Flow Rate FiO2 06/04/19 11:17 99 16 92 30 06/04/19 09:00 Nasal Cannula 3.0 06/04/19 07:42 94 Nasal Cannula 3.0 32 06/04/19 07:42 89 18 94 Nasal Cannula 3.0 32 06/04/19 04:00 98.0 94 20 125/82 (96) 93 06/04/19 00:00 98.2 55 20 118/89 (99) 94 06/03/19 22:34 75 18 96 30 06/03/19 21:21 Nasal Cannula 3.0 06/03/19 20:00 98.3 105 20 140/90 (107) 92 06/03/19 19:20 93 Nasal Cannula 3.0 32 06/03/19 19:20 82 18 93 Nasal Cannula 3.0 32 06/03/19 12:00 98.0 103 20 141/97 (112) 93 Height (Feet): 6 Height (Inches): 0.00 Weight (Pounds): 0 HEENT: mucous membranes moist Respiratory/Chest: no accessory muscle use Cardiovascular: regularly irregular Abdomen: no organomegaly Current Medications Medications (Trade) Dose Ordered Sig/Dejon Route PRN Reason Start Time Stop Time Status Last Admin Dose Admin Acetaminophen (Tylenol) 650 mg Q4H PRN ORAL Mild Pain/Temp > 100.5 05/21/19 18:14 06/15/19 18:13 05/29/19 13:04 Acetaminophen/ Hydrocodone Bitart ([place] 5/325) 1 tab Q6H PRN ORAL Moderate Pain (Pain Scale 4-6) 05/29/19 18:45 06/05/19 18:44 06/03/19 18:20 Albuterol/ Ipratropium (Albuterol/ Ipratropium) 3 ml Q4H PRN HHN Shortness of Breath 06/01/19 09:30 06/06/19 09:29 06/02/19 19:30 Apixaban (Eliquis) 5 mg BID ORAL 05/22/19 09:00 06/21/19 08:59 06/03/19 17:45 Docusate Sodium (Colace) 100 mg TWICE A DAY ORAL 05/22/19 09:00 06/21/19 08:59 06/02/19 17:31 Escitalopram Oxalate (Lexapro) 10 mg DAILY ORAL 05/22/19 09:00 06/22/19 08:59 06/03/19 08:16 Levothyroxine Sodium (Synthroid) 100 mcg ACBREAKFAST ORAL 05/27/19 06:30 06/26/19 06:29 06/03/19 06:22 Nitroglycerin (Ntg) 0.4 mg Q5M X 3 DOSES PRN SL Prn Chest Pain 05/21/19 18:14 06/06/19 18:13 Pantoprazole (Protonix) 40 mg EVERY 12 HOURS ORAL 05/21/19 21:00 06/05/19 20:59 06/03/19 20:42 Polyethylene Glycol (Miralax) 17 gm BEDTIME ORAL 05/21/19 21:00 06/20/19 20:59 06/01/19 22:02 Quetiapine Fumarate (SEROqueL) 25 mg EVERY 6 HOURS PRN ORAL For Anxiety 05/22/19 00:00 07/06/19 00:00 Robert Canela MD Jun 04, 2019 11:46
--- NOTE | 2019-06-04 13:23 | Pulmonology Progress Note ---
Assessment/Plan Problems: (1) Interstitial pneumonia (2) Respiratory failure with hypoxia (3) COPD exacerbation (4) Nosocomial pneumonia (5) Pacemaker (6) Anemia (7) Prostate cancer (8) Diabetes mellitus Assessment/Plan still has thick phlegm, repeat CXR shows interstitial edema, but BNP is normal and Echo showed EF of 55 % Pt needs PRN BIPAP but his CT of chest didn't show any Endstage emphysema perplexing case Subjective Interval Events: on BIPAP again Allergies: Coded Allergies: No Known Allergies (Unverified , 10/24/16) Objective Last 24 Hour Vital Signs Date Time Temp Pulse Resp B/P (MAP) Pulse Ox O2 Delivery O2 Flow Rate FiO2 06/04/19 12:30 71 15 93 30 06/04/19 11:17 99 16 92 30 06/04/19 09:00 Nasal Cannula 3.0 06/04/19 07:42 94 Nasal Cannula 3.0 32 06/04/19 07:42 89 18 94 Nasal Cannula 3.0 32 06/04/19 04:00 98.0 94 20 125/82 (96) 93 06/04/19 00:00 98.2 55 20 118/89 (99) 94 06/03/19 22:34 75 18 96 30 06/03/19 21:21 Nasal Cannula 3.0 06/03/19 20:00 98.3 105 20 140/90 (107) 92 06/03/19 19:20 93 Nasal Cannula 3.0 32 06/03/19 19:20 82 18 93 Nasal Cannula 3.0 32 Intake and Output 06/03/19 06/04/19 19:00 07:00 Intake Total 500 ml 360 ml Output Total 800 ml 650 ml Balance -300 ml -290 ml Intake Oral 500 ml 360 ml Output Urine Total 800 ml 650 ml Objective General Appearance: WD/WN HEENT: normocephalic, atraumatic Respiratory/Chest: chest wall non-tender, loud rhonchi Breasts: no masses Cardiovascular: normal peripheral pulses Abdomen: normal bowel sounds, soft, non tender Genitourinary: normal external genitalia Extremities: no cyanosis Skin: no rash Neurologic/Psychiatric: adjunct trainer II-XII grossly normal Current Medications Medications (Trade) Dose Ordered Sig/Dejon Route PRN Reason Start Time Stop Time Status Last Admin Dose Admin Acetaminophen (Tylenol) 650 mg Q4H PRN ORAL Mild Pain/Temp > 100.5 05/21/19 18:14 06/15/19 18:13 05/29/19 13:04 Acetaminophen/ Hydrocodone Bitart ([place] 5/325) 1 tab Q6H PRN ORAL Moderate Pain (Pain Scale 4-6) 05/29/19 18:45 06/05/19 18:44 06/03/19 18:20 Albuterol/ Ipratropium (Albuterol/ Ipratropium) 3 ml Q4H PRN HHN Shortness of Breath 06/01/19 09:30 06/06/19 09:29 06/02/19 19:30 Apixaban (Eliquis) 5 mg BID ORAL 05/22/19 09:00 06/21/19 08:59 06/03/19 17:45 Docusate Sodium (Colace) 100 mg TWICE A DAY ORAL 05/22/19 09:00 06/21/19 08:59 06/02/19 17:31 Escitalopram Oxalate (Lexapro) 10 mg DAILY ORAL 05/22/19 09:00 06/22/19 08:59 06/03/19 08:16 Levothyroxine Sodium (Synthroid) 100 mcg ACBREAKFAST ORAL 05/27/19 06:30 06/26/19 06:29 06/03/19 06:22 Nitroglycerin (Ntg) 0.4 mg Q5M X 3 DOSES PRN SL Prn Chest Pain 05/21/19 18:14 06/06/19 18:13 Pantoprazole (Protonix) 40 mg EVERY 12 HOURS ORAL 05/21/19 21:00 06/05/19 20:59 06/03/19 20:42 Polyethylene Glycol (Miralax) 17 gm BEDTIME ORAL 05/21/19 21:00 06/20/19 20:59 06/01/19 22:02 Quetiapine Fumarate (SEROqueL) 25 mg EVERY 6 HOURS PRN ORAL For Anxiety 05/22/19 00:00 07/06/19 00:00 Goldie Obrien MD Jun 04, 2019 13:23
[2019-06-04 16:00] VITALS: BP 144/81
[2019-06-04 20:00] VITALS: BP 129/84
[2019-06-04] MEDS: Miralax 17gm pkt ORAL SCH (21:00)
[2019-06-04] MEDS: Albuterol/Ipratropium 3ml neb HHN PRN (21:25)
[2019-06-04] MEDS: HYDROcodone/Acetamin 5/325 tab ORAL PRN (21:36)
--- NOTE | 2019-06-04 22:21 | Internal Med Progress Note ---
Subjective Physician Name Jewel Giraldo Attending Physician Jewel Giraldo MD Current Medications Medications (Trade) Dose Ordered Sig/Dejon Route PRN Reason Start Time Stop Time Status Last Admin Dose Admin Acetaminophen (Tylenol) 650 mg Q4H PRN ORAL Mild Pain/Temp > 100.5 05/21/19 18:14 06/15/19 18:13 05/29/19 13:04 Acetaminophen/ Hydrocodone Bitart ([place] 5/325) 1 tab Q6H PRN ORAL Moderate Pain (Pain Scale 4-6) 05/29/19 18:45 06/05/19 18:44 06/04/19 21:36 Albuterol/ Ipratropium (Albuterol/ Ipratropium) 3 ml Q4H PRN HHN Shortness of Breath 06/01/19 09:30 06/06/19 09:29 06/04/19 21:25 Apixaban (Eliquis) 5 mg BID ORAL 05/22/19 09:00 06/21/19 08:59 06/03/19 17:45 Docusate Sodium (Colace) 100 mg TWICE A DAY ORAL 05/22/19 09:00 06/21/19 08:59 06/02/19 17:31 Escitalopram Oxalate (Lexapro) 10 mg DAILY ORAL 05/22/19 09:00 06/22/19 08:59 06/03/19 08:16 Levothyroxine Sodium (Synthroid) 100 mcg ACBREAKFAST ORAL 05/27/19 06:30 06/26/19 06:29 06/03/19 06:22 Nitroglycerin (Ntg) 0.4 mg Q5M X 3 DOSES PRN SL Prn Chest Pain 05/21/19 18:14 06/06/19 18:13 Pantoprazole (Protonix) 40 mg EVERY 12 HOURS ORAL 05/21/19 21:00 06/05/19 20:59 06/04/19 21:36 Polyethylene Glycol (Miralax) 17 gm BEDTIME ORAL 05/21/19 21:00 06/20/19 20:59 06/01/19 22:02 Quetiapine Fumarate (SEROqueL) 25 mg EVERY 6 HOURS PRN ORAL For Anxiety 05/22/19 00:00 07/06/19 00:00 Allergies: Coded Allergies: No Known Allergies (Unverified , 10/24/16) Subjective Awake, alert, responsive, No CP, less SOB and wheezing. Objective Last Vital Signs Date Time Temp Pulse Resp B/P (MAP) Pulse Ox O2 Delivery O2 Flow Rate FiO2 06/04/19 21:40 76 23 94 30 06/04/19 21:25 Nasal Cannula 3.0 06/04/19 16:00 96.8 144/81 (102) Intake and Output 06/03/19 06/04/19 19:00 07:00 Intake Total 500 ml 360 ml Output Total 800 ml 650 ml Balance -300 ml -290 ml Intake Oral 500 ml 360 ml Output Urine Total 800 ml 650 ml Objective GENERAL: Awake, responsive, no acute distress. HEAD AND NECK: Pupils are equal and reactive to light. Extraocular muscles intact. Neck was supple. No JVD. LUNGS: Decrease air entry at bases. less expiratory wheezes, No rales. HEART: S1, S2. Irregular. No murmur. pacemaker in the left-sided chest wall. ABDOMEN: Soft, nondistended, nontender. Morbid obesely. EXTREMITIES: No cyanosis, clubbing, edema. NEUROLOGIC: Cranial nerves II through XII grossly normal. Motor is 5/5 in all extremities. Gait is intact. RECTAL: Refused and deferred. PSYCHIATRIC: Mood and affect is intact. Assessment/Plan Assessment/Plan ASSESSMENT: 1. Acute hypoxemic respiratory failure, most likely secondary to acute COPD exacerbation. 2. Acute COPD exacerbation. 3. Pneumonia. 4. Sick sinus syndrome status post pacemaker. 5. Diabetes type 2. 6. Prostate cancer. 7. Hyperkalemia. 8. Insulin induced hyperglycemia. 9. Prostate enlargement. PLAN: broad-spectrum antibiotic : monitor pt off of AB RX Code status is Full Code. DVT prophylaxis: Eliquis. monitor cultures and laboratory. Follow up with Dr. Goldie Obrien, Pulmonary Critical Care consultation. DC Montgomery cath in AM DC planning Home. Jewel Giraldo MD Jun 04, 2019 22:21
[2019-06-05 08:00] VITALS: BP 123/81
[2019-06-05] MEDS: Eliquis 5mg tablet ORAL SCH ×2 (09:51→18:07)
[2019-06-05] MEDS: HYDROcodone/Acetamin 5/325 tab ORAL PRN ×2 (09:53→18:09)
[2019-06-05] MEDS: Docusate 100mg cap ORAL SCH ×2 (09:56→18:07)
[2019-06-05 12:00] VITALS: BP 117/76
--- NOTE | 2019-06-05 12:56 | Infectious Diseases Prog Note ---
Assessment/Plan Assessment/Plan Assessment: UCX : dale : colonizer COPD exacerbation , PNA, Sp -05/12 CXR: Bilateral interstitial disease, appearing similar to the previous exam,likely represents combination of senescent change and persistent or recurrent interstitial congestion -04/29 CXRLThere is bilateral interstitial congestion again demonstrated, appearing unchanged. No focal airspace consolidation. There is some atelectasis at the left lung base. -04/27 CXR: Borderline cardiomegaly. Questionable mild interstitial congestion , new or increased from previous study if real. -04/21 CTA chest:Somewhat limited exam, due to motion artifact. No definite evidence of pulmonary embolus or other acute thoracic vascular pathology. Borderline cardiomegaly. Diffuse bilateral pulmonary parenchymal groundglass opacity. Interspersed small bullae digestive this is due to COPD changes, but could also indicate a component of pulmonary edema. Considerable consolidation in the right lower lobe, likely pneumonia. Less extensive consolidation and atelectasis is seen at the left lung base. Pacemaker, degenerative spondylosis incidentally noted sp cx normal resp michael -04/19 CXR: Mild pulmonary vascular congestion -04/16 CXR: No acute disease -04/13 CXR: Suspected mild pulmonary vascular congestion. Correlate clinically -04/08 CXR: Mild pulmonary vascular congestion suspected Afebrile Leukocytosis,(pn steroids); SP HIV neg Hyperglycemia Acute hypoxic respiratory failure ,on bipap PRN COPD CAD CHF prostate cancer s/p PPM former smoker Plan: monitor pt off of AB RX - 05/30 sp Tygacil # 7/7 (empirical Rx ) - 05/27 SP - Vfend # 9 (as per pul ) - 05/24 Sp Merrem # 5 - 05/22 Sp Amikacin INH # 12 - 05/05 Sp Ertapenem # 7/7 - 05/03 sp Vancomycin # 5 -04/28 SP Zosyn #8 -04/15 SP Levaquin #7 -04/08 SP Ceftriaxone x1, Azithromycin x1 - Monitor CBC/CMP, temperatures -aspiration precautions - Fungitell - Galctomannan Thank you for this consultation. Will continue to follow along with you. Subjective Allergies: Coded Allergies: No Known Allergies (Unverified , 10/24/16) Subjective afebrile no leukocytosis Objective Vital Signs Last 24 Hour Vital Signs Date Time Temp Pulse Resp B/P (MAP) Pulse Ox O2 Delivery O2 Flow Rate FiO2 06/05/19 12:00 97.9 86 20 117/76 (90) 94 06/05/19 10:23 98.4 06/05/19 08:11 96 Nasal Cannula 3.0 32 06/05/19 08:11 79 18 96 Nasal Cannula 3.0 32 06/05/19 08:10 79 17 96 30 06/05/19 08:00 98.4 68 20 123/81 (95) 95 06/05/19 04:54 81 22 94 30 06/05/19 03:12 75 18 94 30 06/05/19 00:33 79 19 93 30 06/04/19 21:40 76 23 94 30 06/04/19 21:25 72 20 95 Nasal Cannula 3.0 32 104 20 92 06/04/19 21:00 Nasal Cannula 3.0 06/04/19 20:00 96.7 77 20 129/84 (99) 06/04/19 19:29 93 Nasal Cannula 3.0 32 06/04/19 19:29 86 18 93 Nasal Cannula 3.0 32 06/04/19 16:06 78 25 95 30 06/04/19 16:00 96.8 97 20 144/81 (102) Height (Feet): 6 Height (Inches): 0.00 Weight (Pounds): 0 Objective General Appearance: no distress,confused HEENT: normocephalic, atraumatic Neck: supple Respiratory/Chest: chest wall non-tender, bibasilar ronchi Cardiovascular/Chest: no murmurs Extremities: normal range of motion Current Medications Medications (Trade) Dose Ordered Sig/Dejon Route PRN Reason Start Time Stop Time Status Last Admin Dose Admin Acetaminophen (Tylenol) 650 mg Q4H PRN ORAL Mild Pain/Temp > 100.5 05/21/19 18:14 06/15/19 18:13 05/29/19 13:04 Acetaminophen/ Hydrocodone Bitart ([place] 5/325) 1 tab Q6H PRN ORAL Moderate Pain (Pain Scale 4-6) 05/29/19 18:45 06/05/19 18:44 06/05/19 09:53 Albuterol/ Ipratropium (Albuterol/ Ipratropium) 3 ml Q4H PRN HHN Shortness of Breath 06/01/19 09:30 06/06/19 09:29 06/04/19 21:25 Apixaban (Eliquis) 5 mg BID ORAL 05/22/19 09:00 06/21/19 08:59 06/05/19 09:51 Docusate Sodium (Colace) 100 mg TWICE A DAY ORAL 05/22/19 09:00 06/21/19 08:59 06/05/19 09:56 Escitalopram Oxalate (Lexapro) 10 mg DAILY ORAL 05/22/19 09:00 06/22/19 08:59 06/05/19 09:51 Levothyroxine Sodium (Synthroid) 100 mcg ACBREAKFAST ORAL 05/27/19 06:30 06/26/19 06:29 06/05/19 06:36 Nitroglycerin (Ntg) 0.4 mg Q5M X 3 DOSES PRN SL Prn Chest Pain 05/21/19 18:14 06/06/19 18:13 Pantoprazole (Protonix) 40 mg EVERY 12 HOURS ORAL 05/21/19 21:00 06/05/19 20:59 06/05/19 09:50 Polyethylene Glycol (Miralax) 17 gm BEDTIME ORAL 05/21/19 21:00 06/20/19 20:59 06/01/19 22:02 Quetiapine Fumarate (SEROqueL) 25 mg EVERY 6 HOURS PRN ORAL For Anxiety 05/22/19 00:00 07/06/19 00:00 An Villa M.D. Jun 05, 2019 12:56
--- NOTE | 2019-06-05 15:53 | Internal Med Progress Note ---
Subjective Date of Service: Jun 05, 2019 Physician Name BrittneyIdris Attending Physician Jewel Giraldo MD Current Medications Medications (Trade) Dose Ordered Sig/Deojn Route PRN Reason Start Time Stop Time Status Last Admin Dose Admin Acetaminophen (Tylenol) 650 mg Q4H PRN ORAL Mild Pain/Temp > 100.5 05/21/19 18:14 06/15/19 18:13 05/29/19 13:04 Acetaminophen/ Hydrocodone Bitart ([place] 5/325) 1 tab Q6H PRN ORAL Moderate Pain (Pain Scale 4-6) 05/29/19 18:45 06/05/19 18:44 06/05/19 09:53 Albuterol/ Ipratropium (Albuterol/ Ipratropium) 3 ml Q4H PRN HHN Shortness of Breath 06/01/19 09:30 06/06/19 09:29 06/04/19 21:25 Apixaban (Eliquis) 5 mg BID ORAL 05/22/19 09:00 06/21/19 08:59 06/05/19 09:51 Docusate Sodium (Colace) 100 mg TWICE A DAY ORAL 05/22/19 09:00 06/21/19 08:59 06/05/19 09:56 Escitalopram Oxalate (Lexapro) 10 mg DAILY ORAL 05/22/19 09:00 06/22/19 08:59 06/05/19 09:51 Levothyroxine Sodium (Synthroid) 100 mcg ACBREAKFAST ORAL 05/27/19 06:30 06/26/19 06:29 06/05/19 06:36 Nitroglycerin (Ntg) 0.4 mg Q5M X 3 DOSES PRN SL Prn Chest Pain 05/21/19 18:14 06/06/19 18:13 Pantoprazole (Protonix) 40 mg EVERY 12 HOURS ORAL 05/21/19 21:00 06/05/19 20:59 06/05/19 09:50 Polyethylene Glycol (Miralax) 17 gm BEDTIME ORAL 05/21/19 21:00 06/20/19 20:59 06/01/19 22:02 Quetiapine Fumarate (SEROqueL) 25 mg EVERY 6 HOURS PRN ORAL For Anxiety 05/22/19 00:00 07/06/19 00:00 Allergies: Coded Allergies: No Known Allergies (Unverified , 10/24/16) Subjective 73 YO M admitted with COPD exacerbation. Now respiratory failure and pneumonia. Cover for Int Med-DR Giraldo. S/P endoscopy 05/06/19. Off BIPAP. Objective Last Vital Signs Date Time Temp Pulse Resp B/P (MAP) Pulse Ox O2 Delivery O2 Flow Rate FiO2 06/05/19 12:00 97.9 86 20 117/76 (90) 94 06/05/19 09:00 Nasal Cannula 3.0 06/05/19 08:11 32 Intake and Output 06/04/19 06/05/19 19:00 07:00 Intake Total 500 ml 800 ml Output Total 250 ml 2500 ml Balance 250 ml -1700 ml Intake Oral 500 ml 800 ml Output Urine Total 250 ml 2500 ml # Bowel Movements 1 Objective PHYSICAL EXAMINATION: GENERAL: The patient is awake, responsive, no acute distress. HEAD AND NECK: Pupils are equal and reactive to light. Extraocular muscles intact. Neck was supple. No JVD. LUNGS: Nasal canula;The patient has expiratory wheezes noted. Tachypneic. No rhonchi was noted. HEART: S1, S2. Irregular. No murmur. The patient has a pacemaker in the left-sided chest wall. ABDOMEN: Soft, nondistended, nontender. Mildly obese. EXTREMITIES: No cyanosis, clubbing, edema. NEUROLOGIC: Cranial nerves II through XII grossly normal. Motor is 5/5 in all extremities. Gait is intact. GENITOURINARY: It was noted the patient has a Montgomery catheter. RECTAL: Refused and deferred. PSYCHIATRIC: Mood and affect is intact. Assessment/Plan Assessment/Plan ASSESSMENT: 1. Acute hypoxemic respiratory failure, most likely secondary to acute COPD exacerbation. 2. Acute COPD exacerbation. 3. Pneumonia. 4. Sick sinus syndrome status post pacemaker. 5. Diabetes type 2. 6. Prostate cancer. 7. Hyperkalemia. 8. Insulin induced hyperglycemia. 9. Prostate enlargement. 10. Leukocytosis 11. RBBB 12 Gastritis PLAN: 1. Med/Surg 2. D/C Solu-Medrol IV Per Pulmonary consult=Dr. Obrien. 3. Endocrinology=Dr To. Monitor blood glucose level closely. 4. antibiotic= S/P tegecycline. ID=Dr Villa 5. Code status is Full Code. DVT prophylaxis, he is on Eliquis. 6. S/P endoscopy 05/06/19=gastritis 7. Discharge held 11/03/19 due to delay with home oxygen Idris Lugo MD Jun 05, 2019 15:53
[2019-06-05 16:00] VITALS: BP 127/80
--- NOTE | 2019-06-05 17:08 | Pulmonology Progress Note ---
Assessment/Plan Problems: (1) Interstitial pneumonia (2) Respiratory failure with hypoxia (3) COPD exacerbation (4) Nosocomial pneumonia (5) Pacemaker (6) Anemia (7) Prostate cancer (8) Diabetes mellitus Assessment/Plan still has thick phlegm, repeat CXR shows interstitial edema, but BNP is normal and Echo showed EF of 55 % Pt needs PRN BIPAP but his CT of chest didn't show any Endstage emphysema perplexing case Subjective ROS Limited/Unobtainable: No Constitutional: Reports: no symptoms HEENT: Repors: no symptoms Respiratory: Reports: no symptoms Allergies: Coded Allergies: No Known Allergies (Unverified , 10/24/16) Objective Last 24 Hour Vital Signs Date Time Temp Pulse Resp B/P (MAP) Pulse Ox O2 Delivery O2 Flow Rate FiO2 06/05/19 16:00 98.8 71 20 127/80 (96) 95 06/05/19 12:00 97.9 86 20 117/76 (90) 94 06/05/19 10:23 98.4 06/05/19 09:00 Nasal Cannula 3.0 06/05/19 08:11 96 Nasal Cannula 3.0 32 06/05/19 08:11 79 18 96 Nasal Cannula 3.0 32 06/05/19 08:10 79 17 96 30 06/05/19 08:00 98.4 68 20 123/81 (95) 95 06/05/19 04:54 81 22 94 30 06/05/19 03:12 75 18 94 30 06/05/19 00:33 79 19 93 30 06/04/19 21:40 76 23 94 30 06/04/19 21:25 72 20 95 Nasal Cannula 3.0 32 104 20 92 06/04/19 21:00 Nasal Cannula 3.0 06/04/19 20:00 96.7 77 20 129/84 (99) 06/04/19 19:29 93 Nasal Cannula 3.0 32 06/04/19 19:29 86 18 93 Nasal Cannula 3.0 32 Intake and Output 06/04/19 06/05/19 19:00 07:00 Intake Total 500 ml 800 ml Output Total 250 ml 2500 ml Balance 250 ml -1700 ml Intake Oral 500 ml 800 ml Output Urine Total 250 ml 2500 ml # Bowel Movements 1 Objective General Appearance: WD/WN HEENT: normocephalic, atraumatic Respiratory/Chest: chest wall non-tender, loud rhonchi Breasts: no masses Cardiovascular: normal peripheral pulses Abdomen: normal bowel sounds, soft, non tender Genitourinary: normal external genitalia Extremities: no cyanosis Skin: no rash Neurologic/Psychiatric: chili pepper grinder II-XII grossly normal Current Medications Medications (Trade) Dose Ordered Sig/Dejon Route PRN Reason Start Time Stop Time Status Last Admin Dose Admin Acetaminophen (Tylenol) 650 mg Q4H PRN ORAL Mild Pain/Temp > 100.5 05/21/19 18:14 06/15/19 18:13 05/29/19 13:04 Acetaminophen/ Hydrocodone Bitart ([place] 5/325) 1 tab Q6H PRN ORAL Moderate Pain (Pain Scale 4-6) 05/29/19 18:45 06/05/19 18:44 06/05/19 09:53 Albuterol/ Ipratropium (Albuterol/ Ipratropium) 3 ml Q4H PRN HHN Shortness of Breath 06/01/19 09:30 06/06/19 09:29 06/04/19 21:25 Apixaban (Eliquis) 5 mg BID ORAL 05/22/19 09:00 06/21/19 08:59 06/05/19 09:51 Docusate Sodium (Colace) 100 mg TWICE A DAY ORAL 05/22/19 09:00 06/21/19 08:59 06/05/19 09:56 Escitalopram Oxalate (Lexapro) 10 mg DAILY ORAL 05/22/19 09:00 06/22/19 08:59 06/05/19 09:51 Levothyroxine Sodium (Synthroid) 100 mcg ACBREAKFAST ORAL 05/27/19 06:30 06/26/19 06:29 06/05/19 06:36 Nitroglycerin (Ntg) 0.4 mg Q5M X 3 DOSES PRN SL Prn Chest Pain 05/21/19 18:14 06/06/19 18:13 Pantoprazole (Protonix) 40 mg EVERY 12 HOURS ORAL 05/21/19 21:00 06/05/19 20:59 06/05/19 09:50 Polyethylene Glycol (Miralax) 17 gm BEDTIME ORAL 05/21/19 21:00 06/20/19 20:59 06/01/19 22:02 Quetiapine Fumarate (SEROqueL) 25 mg EVERY 6 HOURS PRN ORAL For Anxiety 05/22/19 00:00 07/06/19 00:00 Goldie Obrien MD Jun 05, 2019 17:08
[2019-06-05] MEDS ORDERED: Lidocaine HCl 2% Jelly 6ml Tube TOPIC SCH (17:45)
[2019-06-05 20:00] VITALS: BP 119/81
[2019-06-05] MEDS: Albuterol/Ipratropium 3ml neb HHN PRN (20:17)
[2019-06-05] MEDS: Miralax 17gm pkt ORAL SCH (21:00)
[2019-06-06] MEDS: HYDROcodone/Acetamin 5/325 tab ORAL PRN ×3 (01:03→21:23)
[2019-06-06 04:00] VITALS: BP 122/78
[2019-06-06 08:00] VITALS: BP 144/74
[2019-06-06] MEDS: Albuterol/Ipratropium 3ml neb HHN PRN (08:16)
[2019-06-06] MEDS: Eliquis 5mg tablet ORAL SCH ×2 (08:55→17:55)
[2019-06-06] MEDS: Docusate 100mg cap ORAL SCH ×2 (08:55→17:55)
[2019-06-06 12:00] VITALS: BP 131/77
--- NOTE | 2019-06-06 14:32 | Internal Med Progress Note ---
Subjective Date of Service: Jun 06, 2019 Physician Name Idris Lugo Attending Physician Jewel Giraldo MD Current Medications Medications (Trade) Dose Ordered Sig/Dejon Route PRN Reason Start Time Stop Time Status Last Admin Dose Admin Acetaminophen (Tylenol) 650 mg Q4H PRN ORAL Mild Pain/Temp > 100.5 05/21/19 18:14 06/15/19 18:13 05/29/19 13:04 Acetaminophen/ Hydrocodone Bitart ([place] 5/325) 1 tab Q6H PRN ORAL For Pain 4-10 06/05/19 19:45 06/12/19 19:44 06/06/19 06:55 Apixaban (Eliquis) 5 mg BID ORAL 05/22/19 09:00 06/21/19 08:59 06/06/19 08:55 Docusate Sodium (Colace) 100 mg TWICE A DAY ORAL 05/22/19 09:00 06/21/19 08:59 06/06/19 08:55 Escitalopram Oxalate (Lexapro) 10 mg DAILY ORAL 05/22/19 09:00 06/22/19 08:59 06/06/19 08:55 Levothyroxine Sodium (Synthroid) 100 mcg ACBREAKFAST ORAL 05/27/19 06:30 06/26/19 06:29 06/06/19 06:45 Nitroglycerin (Ntg) 0.4 mg Q5M X 3 DOSES PRN SL Prn Chest Pain 05/21/19 18:14 06/06/19 18:13 Polyethylene Glycol (Miralax) 17 gm BEDTIME ORAL 05/21/19 21:00 06/20/19 20:59 06/01/19 22:02 Quetiapine Fumarate (SEROqueL) 25 mg EVERY 6 HOURS PRN ORAL For Anxiety 05/22/19 00:00 07/06/19 00:00 Allergies: Coded Allergies: No Known Allergies (Unverified , 10/24/16) ROS Limited/Unobtainable: No Constitutional: Reports: no symptoms HEENT: Reports: no symptoms Cardiovascular: Reports: no symptoms Respiratory: Reports: no symptoms Gastrointestinal/Abdominal: Reports: no symptoms Genitourinary: Reports: no symptoms Neurologic/Psychiatric: Reports: no symptoms Subjective 73 YO M admitted with COPD exacerbation. Now respiratory failure and pneumonia. Cover for Int Med-DR Giraldo. S/P endoscopy 05/06/19. Off BIPAP. Objective Last Vital Signs Date Time Temp Pulse Resp B/P (MAP) Pulse Ox O2 Delivery O2 Flow Rate FiO2 06/06/19 12:00 98.6 76 20 131/77 (95) 96 06/06/19 11:28 30 06/06/19 09:00 Room Air 06/06/19 08:16 3.0 Intake and Output 06/05/19 06/06/19 19:00 07:00 Intake Total 720 ml 500 ml Output Total 625 ml 550 ml Balance 95 ml -50 ml Intake Oral 720 ml 500 ml Output Urine Total 625 ml 550 ml Objective PHYSICAL EXAMINATION: GENERAL: The patient is awake, responsive, no acute distress. HEAD AND NECK: Pupils are equal and reactive to light. Extraocular muscles intact. Neck was supple. No JVD. LUNGS: Nasal canula;The patient has expiratory wheezes noted. Tachypneic. No rhonchi was noted. HEART: S1, S2. Irregular. No murmur. The patient has a pacemaker in the left-sided chest wall. ABDOMEN: Soft, nondistended, nontender. Mildly obese. EXTREMITIES: No cyanosis, clubbing, edema. NEUROLOGIC: Cranial nerves II through XII grossly normal. Motor is 5/5 in all extremities. Gait is intact. GENITOURINARY: It was noted the patient has a Montgomery catheter. RECTAL: Refused and deferred. PSYCHIATRIC: Mood and affect is intact. Assessment/Plan Assessment/Plan ASSESSMENT: 1. Acute hypoxemic respiratory failure, most likely secondary to acute COPD exacerbation. 2. Acute COPD exacerbation. 3. Pneumonia. 4. Sick sinus syndrome status post pacemaker. 5. Diabetes type 2. 6. Prostate cancer. 7. Hyperkalemia. 8. Insulin induced hyperglycemia. 9. Prostate enlargement. 10. Leukocytosis 11. RBBB 12 Gastritis PLAN: 1. Med/Surg 2. D/C Solu-Medrol IV Per Pulmonary consult=Dr. Obrien. 3. Endocrinology=Dr To. Monitor blood glucose level closely. 4. antibiotic= S/P tegecycline. ID=Dr Villa 5. Code status is Full Code. DVT prophylaxis, he is on Eliquis. 6. S/P endoscopy 05/06/19=gastritis 7. Discharge planning Idris Lugo MD Jun 06, 2019 14:32
--- NOTE | 2019-06-06 16:33 | Pulmonology Progress Note ---
Assessment/Plan Problems: (1) Interstitial pneumonia (2) Respiratory failure with hypoxia (3) COPD exacerbation (4) Nosocomial pneumonia (5) Pacemaker (6) Anemia (7) Prostate cancer (8) Diabetes mellitus Assessment/Plan still has thick phlegm, repeat CXR shows interstitial edema, but BNP is normal and Echo showed EF of 55 % Pt needs PRN BIPAP but his CT of chest didn't show any Endstage emphysema sputum was sent again to cytology and microbiology Subjective ROS Limited/Unobtainable: Yes Constitutional: Reports: no symptoms HEENT: Repors: no symptoms Allergies: Coded Allergies: No Known Allergies (Unverified , 10/24/16) Objective Last 24 Hour Vital Signs Date Time Temp Pulse Resp B/P (MAP) Pulse Ox O2 Delivery O2 Flow Rate FiO2 06/06/19 12:00 98.6 76 20 131/77 (95) 96 06/06/19 11:28 82 18 96 30 06/06/19 09:35 89 20 94 30 06/06/19 09:00 Room Air 06/06/19 08:16 89 20 98 Nasal Cannula 3.0 32 85 20 94 06/06/19 08:00 97.1 106 20 144/74 (97) 97 06/06/19 07:28 89 18 92 Nasal Cannula 3.0 32 06/06/19 07:28 92 Nasal Cannula 3.0 32 06/06/19 04:00 97.6 72 20 122/78 (93) 98 06/05/19 21:00 Nasal Cannula 3.0 06/05/19 20:17 88 20 97 Nasal Cannula 3.0 32 91 20 93 06/05/19 20:00 97.8 87 20 119/81 (94) 95 06/05/19 19:11 94 Nasal Cannula 3.0 32 06/05/19 19:11 83 18 94 Nasal Cannula 3.0 32 Intake and Output 06/05/19 06/06/19 19:00 07:00 Intake Total 720 ml 500 ml Output Total 625 ml 550 ml Balance 95 ml -50 ml Intake Oral 720 ml 500 ml Output Urine Total 625 ml 550 ml Objective General Appearance: WD/WN HEENT: normocephalic, atraumatic Respiratory/Chest: chest wall non-tender, loud rhonchi Breasts: no masses Cardiovascular: normal peripheral pulses Abdomen: normal bowel sounds, soft, non tender Genitourinary: normal external genitalia Extremities: no cyanosis Skin: no rash Neurologic/Psychiatric: concession supervisor II-XII grossly normal Current Medications Medications (Trade) Dose Ordered Sig/Dejon Route PRN Reason Start Time Stop Time Status Last Admin Dose Admin Acetaminophen (Tylenol) 650 mg Q4H PRN ORAL Mild Pain/Temp > 100.5 05/21/19 18:14 06/15/19 18:13 05/29/19 13:04 Acetaminophen/ Hydrocodone Bitart ([place] 5/325) 1 tab Q6H PRN ORAL For Pain 4-10 06/05/19 19:45 06/12/19 19:44 06/06/19 06:55 Apixaban (Eliquis) 5 mg BID ORAL 05/22/19 09:00 06/21/19 08:59 06/06/19 08:55 Docusate Sodium (Colace) 100 mg TWICE A DAY ORAL 05/22/19 09:00 06/21/19 08:59 06/06/19 08:55 Escitalopram Oxalate (Lexapro) 10 mg DAILY ORAL 05/22/19 09:00 06/22/19 08:59 06/06/19 08:55 Levothyroxine Sodium (Synthroid) 100 mcg ACBREAKFAST ORAL 05/27/19 06:30 06/26/19 06:29 06/06/19 06:45 Nitroglycerin (Ntg) 0.4 mg Q5M X 3 DOSES PRN SL Prn Chest Pain 05/21/19 18:14 06/06/19 18:13 Polyethylene Glycol (Miralax) 17 gm BEDTIME ORAL 05/21/19 21:00 06/20/19 20:59 06/01/19 22:02 Quetiapine Fumarate (SEROqueL) 25 mg EVERY 6 HOURS PRN ORAL For Anxiety 05/22/19 00:00 07/06/19 00:00 Goldie Obrien MD Jun 06, 2019 16:33
[2019-06-06] MEDS: Miralax 17gm pkt ORAL SCH (21:00)
[2019-06-06] MEDS ORDERED: Albuterol/Ipratropium 3ml neb HHN PRN (21:30)
[2019-06-07] MEDS: HYDROcodone/Acetamin 5/325 tab ORAL PRN ×2 (06:40→12:57)
[2019-06-07 08:00] VITALS: BP 120/70
[2019-06-07] MEDS: Docusate 100mg cap ORAL SCH (08:46)
[2019-06-07] MEDS: Eliquis 5mg tablet ORAL SCH (08:46)
--- NOTE | 2019-06-07 10:32 | General Progress Note ---
Assessment/Plan Problem List: (1) Diabetes mellitus ICD Codes: E11.9 - Type 2 diabetes mellitus without complications SNOMED: 26061156 (2) Respiratory failure with hypoxia ICD Codes: J96.91 - Respiratory failure, unspecified with hypoxia SNOMED: 72260424738463037 (3) COPD exacerbation ICD Codes: J44.1 - Chronic obstructive pulmonary disease with (acute) exacerbation SNOMED: 272658419 (4) Hypothyroid ICD Codes: E03.9 - Hypothyroidism, unspecified SNOMED: 61136948 (5) Pacemaker ICD Codes: Z95.0 - Presence of cardiac pacemaker SNOMED: 224687319 (6) Prostate cancer ICD Codes: C61 - Malignant neoplasm of prostate SNOMED: 604212674 Status: stable, not improved, deteriorating Assessment/Plan: s/p EGD stable H&H needs out patient fu fo colonoscopy repeat stool ob pending good po intake fu pulm recs abx fu labs Subjective Allergies: Coded Allergies: No Known Allergies (Unverified , 10/24/16) Objective Last 24 Hour Vital Signs Date Time Temp Pulse Resp B/P (MAP) Pulse Ox O2 Delivery O2 Flow Rate FiO2 06/07/19 08:47 Room Air 06/07/19 08:00 98.0 60 20 120/70 (87) 95 06/06/19 21:00 Room Air 06/06/19 19:23 87 18 90 Nasal Cannula 3.0 32 06/06/19 19:23 90 Nasal Cannula 3.0 32 06/06/19 12:00 98.6 76 20 131/77 (95) 96 06/06/19 11:28 82 18 96 30 Intake and Output 06/06/19 06/07/19 19:00 07:00 Intake Total 480 ml Output Total 600 ml Balance 480 ml -600 ml Intake Oral 480 ml Output Urine Total 600 ml # Bowel Movements 1 Height (Feet): 6 Height (Inches): 0.00 Weight (Pounds): 0 General Appearance: no apparent distress EENT: normal ENT inspection Neck: supple Cardiovascular: normal rate Respiratory/Chest: decreased breath sounds Abdomen: normal bowel sounds, non tender, soft Extremities: non-tender Christiano La MD Jun 07, 2019 10:32
--- NOTE | 2019-06-07 15:19 | Pulmonology Progress Note ---
Assessment/Plan Problems: (1) Interstitial pneumonia (2) Respiratory failure with hypoxia (3) COPD exacerbation (4) Nosocomial pneumonia (5) Pacemaker (6) Anemia (7) Prostate cancer (8) Diabetes mellitus Assessment/Plan still has thick phlegm, repeat CXR shows interstitial edema, but BNP is normal and Echo showed EF of 55 % Pt needs PRN BIPAP but his CT of chest didn't show any Endstage emphysema sputum was sent again to cytology and microbiology Subjective ROS Limited/Unobtainable: No Allergies: Coded Allergies: No Known Allergies (Unverified , 10/24/16) Objective Last 24 Hour Vital Signs Date Time Temp Pulse Resp B/P (MAP) Pulse Ox O2 Delivery O2 Flow Rate FiO2 06/07/19 12:51 91 Nasal Cannula 3.0 32 06/07/19 12:50 85 20 91 Nasal Cannula 3.0 32 06/07/19 08:47 Room Air 06/07/19 08:00 98.0 60 20 120/70 (87) 95 06/06/19 21:00 Room Air 06/06/19 19:23 87 18 90 Nasal Cannula 3.0 32 06/06/19 19:23 90 Nasal Cannula 3.0 32 Intake and Output 06/06/19 06/07/19 19:00 07:00 Intake Total 480 ml Output Total 600 ml Balance 480 ml -600 ml Intake Oral 480 ml Output Urine Total 600 ml # Bowel Movements 1 Objective General Appearance: WD/WN HEENT: normocephalic, atraumatic Respiratory/Chest: chest wall non-tender, loud rhonchi Breasts: no masses Cardiovascular: normal peripheral pulses Abdomen: normal bowel sounds, soft, non tender Genitourinary: normal external genitalia Extremities: no cyanosis Skin: no rash Neurologic/Psychiatric: quality assurance director II-XII grossly normal Microbiology Date/Time Source Procedure Growth Status 06/05/19 09:30 Sputum Gram Stain - Final Resulted 06/05/19 09:30 Sputum Culture - Preliminary Gram Negative Ever Usual Upper Respiratory Astrid Resulted Current Medications Medications (Trade) Dose Ordered Sig/Dejon Route PRN Reason Start Time Stop Time Status Last Admin Dose Admin Acetaminophen (Tylenol) 650 mg Q4H PRN ORAL Mild Pain/Temp > 100.5 05/21/19 18:14 06/15/19 18:13 05/29/19 13:04 Acetaminophen/ Hydrocodone Bitart ([place] 5/325) 1 tab Q6H PRN ORAL For Pain 4-10 06/05/19 19:45 06/12/19 19:44 06/07/19 12:57 Albuterol/ Ipratropium (Albuterol/ Ipratropium) 3 ml Q6H PRN HHN Shortness of breath 06/06/19 21:30 06/11/19 21:29 Apixaban (Eliquis) 5 mg BID ORAL 05/22/19 09:00 06/21/19 08:59 06/06/19 17:55 Docusate Sodium (Colace) 100 mg TWICE A DAY ORAL 05/22/19 09:00 06/21/19 08:59 06/06/19 17:55 Escitalopram Oxalate (Lexapro) 10 mg DAILY ORAL 05/22/19 09:00 06/22/19 08:59 06/06/19 08:55 Levothyroxine Sodium (Synthroid) 100 mcg ACBREAKFAST ORAL 05/27/19 06:30 06/26/19 06:29 06/06/19 06:45 Polyethylene Glycol (Miralax) 17 gm BEDTIME ORAL 05/21/19 21:00 06/20/19 20:59 06/01/19 22:02 Quetiapine Fumarate (SEROqueL) 25 mg EVERY 6 HOURS PRN ORAL For Anxiety 05/22/19 00:00 07/06/19 00:00 Goldie Obrien MD Jun 07, 2019 15:19
--- NOTE | 2019-06-07 23:15 | Progress Note ---
DATE: 06/07/2019 SUBJECTIVE: The patient is doing better and less irritable. Oxygen mask arrived. The patient has no behavior issues. Doing well. Compliant with medications. MENTAL STATUS EXAMINATION: The patient is alert and oriented times self, place, and situation. Mood is neutral. Affect is flat. Thought process is concrete. Thought content, no suicidal or homicidal ideation. ASSESSMENT: Major depressive disorder. PLAN: 1. Continue current medications. 2. Provide the patient with reality orientation and supportive therapy. Ottoniel Hillman M.D. DR: KATEY JOB#: [id number] CC:
--- NOTE | 2019-06-08 09:38 | Discharge Summary ---
Discharge Summary Discharge Summary _ DATE OF ADMISSION: 04/08/2019 DATE OF DISCHARGE: 06/07/2019 DISCHARGED BY: Dr. Cruz REASON FOR ADMISSION: 73 years old male with past medical history of COPD, CHF, prostate cancer, pacemaker, presented for evaluation due to shortness of breath. Patient apparently was discharged from [facility] just an hour ago , where he was hospitalized for COPD exacerbation. Shortness of breath worsened over the past few days despite being inpatient at [facility]. Patient reported wheezing. He called paramedics to take him back to the hospital. Upon evaluation patient was hypoxic with pulse oximetry 85% on room air and tachypneic. No fevers. Laboratory work-up revealed leukocytosis WBC 16.9, stable hemoglobin, hematocrit and platelet count. Potassium 5.8. BUN 33, creatinine 1.3. Glucose 476. Troponin 0.009, pro BNP 181. EKG revealed sinus rhythm, no acute ischemic changes . Chest x-ray demonstrated mild pulmonary vascular congestion , possible pneumonia. Patient admitted with respiratory failure, COPD exacerbation , pneumonia , hyperkalemia. CONSULTANTS: news copy editor Dr. Esquivel pulmonary Dr. Obrien ID specialist Dr. Villa aircraft instrument engineer Dr. To psychiatrist Dr. Hillman [facility] COURSE: Patient admitted to monitored floor initially. Patient started on the IV steroids and empiric antibiotics. Sputum culture initially was negative , then revealed Randi. Urine culture revealed Randi , colonizer as per ID specialist. ABG demonstrated hypercapnia and hypoxia. Patient required BiPAP initially. Patient was followed-up with ABG and chest x-ray. Pulmonary toilet with bronchodilator provided . Antitussive provided as needed CTA of the chest demonstrated no definite evidence of pulmonary emboli or other acute thoracic vascular pathology. Borderline cardiomegaly. Diffuse bilateral pulmonary parenchymal ground-glass opacity. Interspersed small bullae. Considerable consolidation in the right lower lobe , likely pneumonia. Less extensive consolidation and atelectasis of the left lung base. COVID 19 was negative. Patient was able to be weaned off BiPAP eventually to oxygen via nasal cannula. Steroids tapered and discontinued. Leukocytosis initially trended up partially probably due to steroids as well as pneumonia , then eventually resolved. No fevers. Patient completed course of antibiotics for pneumonia. HIV test was negative. Echocardiogram demonstrated ejection fraction 55% , no evidence of wall motion abnormality. Right ventricular systolic pressure of 9. Repeated troponin was negative . Telemetry readings stable . Patient status post pacemaker for sick sinus syndrome at [facility]. medications Outpatient cardiac medication resumed, including Eliquis and Coreg. Blood sugar was managed as per aircraft instrument engineer recommendation. Hemoglobin A1c 8.6. Diabetic diet provided. Diabetic teaching was done. Blood sugar was managed with long-acting insulin and short acting insulin pre- meal. Sliding scale of insulin was on board as needed . Blood sugar stabilized. TSH noted to be elevated - 15.7. Levothyroxine dose was increased. Repeat thyroid function test in 3 to 4 weeks. Stool for occult blood was positive x1. CEA within normal limits. Stable folate and B12 . Patient undergone upper endoscopy with biopsy on 05/06 , which revealed gastritis , status post biopsy , otherwise normal upper endoscopic examination. Pathology revealed mildly inflamed oxyntic mucosa. No H. pylori. No metaplasia dysplasia or malignancy. Hemoglobin and hematocrit were closely monitored with goal to keep hemoglobin above 7 . Prior to discharge hemoglobin 14.5 , hematocrit 43.6. Patient was advised to have outpatient follow-up for colonoscopy. GI prophylaxis provided. Renal parameters and electrolytes were closely monitored. Hyperkalemia corrected. Creatinine from 1.6 ( the highest reading )down to 1.1. BUN down to 22. Per psychiatrist patient had major depressive disorder. Psychiatric medication regimen optimized. Patient was provided with reality orientation and supportive therapy. Patient eventually stabilized and was ready for discharge home . Oxygen was arranged. FINAL DIAGNOSES: Acute hypoxemic respiratory failure requiring BiPAP, most likely due to acute COPD exacerbation Acute COPD exacerbation Pneumonia Sick sinus syndrome status post pacemaker Diabetes mellitus with hyperglycemia Hyperkalemia Hypothyroidism Right bundle branch block Prostate cancer Gastritis Former smoker DISCHARGE MEDICATIONS: See Medication Reconciliation list. DISCHARGE INSTRUCTIONS: Patient was discharged home. Patient provided with a number to call [place] [facility] for refill of oxygen tank I have been assigned to dictate discharge summary for this account. I was not involved in the patient's management. Karen Lira NP Jun 08, 2019 09:38
== END 2019-06-07 15:24 | disposition home or self-care (01) | DRG 193 ==
LOC: EMR 18:15 → 2W 19:00 → EDBEDREQ 19:50 → 2W 21:11 → 4E 04-11 01:45 → 2E 04-15 02:22 → 4E 04-21 14:38 → 2W 04-22 15:43 → 3E 04-27 15:39 → 2W 04-29 14:24 → 3E 05-01 18:35 → 2W 05-16 13:22 → 2E 05-20 17:05 → 3E 05-21 18:38
PROC: 0DD78ZX Extraction of Stomach, Pylorus, Via Natural or Artificial Opening Endoscopic, Diagnostic (ICD-10-PCS; principal; 2019-05-06 11:33)
DX: J18.9 Pneumonia, unspecified organism (principal); J96.01 Acute respiratory failure with hypoxia; J44.1 Chronic obstructive pulmonary disease with (acute) exacerbation; J44.0 Chronic obstructive pulmonary disease with (acute) lower respiratory infection; N17.9 Acute kidney failure, unspecified; I48.92 Unspecified atrial flutter; J84.9 Interstitial pulmonary disease, unspecified; I25.10 Atherosclerotic heart disease of native coronary artery without angina pectoris; C61 Malignant neoplasm of prostate; Z85.850 Personal history of malignant neoplasm of thyroid; Z87.891 Personal history of nicotine dependence; I49.5 Sick sinus syndrome; Z95.0 Presence of cardiac pacemaker; E11.65 Type 2 diabetes mellitus with hyperglycemia; E87.5 Hyperkalemia; I50.9 Heart failure, unspecified; I48.91 Unspecified atrial fibrillation; Z79.01 Long term (current) use of anticoagulants; E89.0 Postprocedural hypothyroidism; I45.10 Unspecified right bundle-branch block; F41.9 Anxiety disorder, unspecified; D64.9 Anemia, unspecified; K29.70 Gastritis, unspecified, without bleeding; F32.9 Major depressive disorder, single episode, unspecified; Y95 Nosocomial condition
CPT/HCPCS: 36415; 36600; 71045; 71250; 71275; 80048; 80053; 80202; 81001; 82270; 82378; 82607; 82728; 82746; 82803; 82962; 83036; 83540; 83550; 83735; 83880; 84100; 84443; 84484; 85007; 85025; 85651; 86140; 86703; 87070; 87081; 87086; 87181; 87205; 87635; 93005; 93306; 94003; 94150; 94640; 94660; 94664; 96365; 96368; 96375; 99291; J1815; J2250; J2405; J7620; S5561

== ENCOUNTER 2019-06-21 14:39 | Inpatient (IN) | payer MEDICARE, OTHER ==
[~2019-06-21] VITALS: Ht 180.3 cm; Wt 91.9 kg
[~2019-06-21 14:39] MED LIST changes: +ADVAIR HFA 115-12 GM INH; +BENZONATATE200 MG ORAL; +COREG6.25 MG ORAL; +ELIQUIS5 MG ORAL; +LEVEMIR FL100 UNIT/1 SUBQ; +LIDODERM700 M1 TOPIC; +METFORMIN HCL500 M1 ORAL; +SPIRIVA18 MCG INH; +SYNTHROID150 MCG ORAL; +ZITHROMAX250 MG ORAL
[2019-06-21 14:43] VITALS: BP 137/97
--- NOTE | 2019-06-21 14:43 | NUR ---
Note undone in EDM - 06/21/19 at 1521 by MANOJ ED Nurse Note: Pt brought in by RA [address] due to SOB x 1 hour. Pt was reported that he signed AMA at [facility]. Noted severe respiratory distress and increased effort in breathing upon ED arrival.Diminished lung sounds. Hx of COPD AAO x4, follows commands. Skin is pale but warm to touch. PT. BROUGHT IN BY RA [address] DUE SOB X 1 HR. PT REPORETD HE HAS HX OF COPD
[2019-06-21] MEDS ORDERED: Solu-MEDROL 125mg Inj IVP ONE (14:45)
[2019-06-21] MEDS ORDERED: Albuterol ud Inhalation HHN ONE (14:45)
[2019-06-21] MEDS ORDERED: Ipratropium 0.02% Inh Soln 2.5ml UD HHN ONE (14:45)
--- NOTE | 2019-06-21 14:45 | NUR ---
ED Nurse Note: Pt brought in by RA [address] due to SOB x 1 hour. Pt was reported that he signed AMA at [facility]. Noted severe respiratory distress and increased effort in breathing upon ED arrival.Diminished lung sounds. Hx of COPD AAO x4, follows commands. Skin is pale but warm to touch. ERMD and RT at the bed side.
--- NOTE | 2019-06-21 15:07 | Emergency Room Report ---
History of Present Illness General Chief Complaint: Dyspnea/Respdistress Source: Patient, EMS Present Illness HPI 73-year-old male presents ED for shortness of breath. Brought in by EMS from Street. History of COPD. Was apparently leaving [facility] when he felt short of breath. Was admitted there for COPD. Left AMA. States he feels short of breath. Denies chest pain. Denies cough. Denies fevers or chills. Denies runny nose cough or congestion. States that he tested negative for COVID at [facility]. No other aggravating relieving factors. Denies any other associated symptoms Allergies: Coded Allergies: No Known Allergies (Unverified , 10/24/16) COVID-19 Screening Contact w/high risk pt: No Recent Travel to affected area: No Experienced COVID-19 symptoms?: No Patient History Past Medical History: CAD, COPD Past Surgical History: pacemaker Pertinent Family History: none Social History: Denies: smoking, alcohol use, drug use Immunizations: UTD Reviewed Nursing Documentation: PMH: Agreed; PSxH: Agreed Nursing Documentation-PMH Hx Cardiac Problems: Yes Hx Hypertension: No Hx Pacemaker: Yes - LEFT UPPER CHEST Hx Asthma: No Hx COPD: Yes Hx Diabetes: No Hx Cancer: Yes Hx Gastrointestinal Problems: No Hx Dialysis: No Hx Neurological Problems: No Hx Cerebrovascular Accident: No Hx Seizures: No Review of Systems All Other Systems: negative except mentioned in HPI Physical Exam Vital Signs Date Time Temp Pulse Resp B/P (MAP) Pulse Ox O2 Delivery O2 Flow Rate FiO2 06/21/19 14:33 98.2 107 26 137/97 (110) 100 Room Air Sp02 EP Interpretation: reviewed, normal General Appearance: alert, GCS 15, non-toxic, mild distress Head: normocephalic, atraumatic Eyes: bilateral eye normal inspection, bilateral eye PERRL ENT: hearing grossly normal, normal pharynx, no angioedema, normal voice Neck: full range of motion, supple/symm/no masses Respiratory: chest non-tender, decreased breath sounds, speaking full sentences , wheezing Cardiovascular #1: regular rate, rhythm, no edema Cardiovascular #2: 2+ carotid (R), 2+ carotid (L), 2+ radial (R), 2+ radial (L) , 2+ dorsalis pedis (R), 2+ dorsalis pedis (L) Gastrointestinal: normal bowel sounds, non tender, soft, non-distended, no guarding, no rebound Rectal: deferred Genitourinary: normal inspection, no CVA tenderness Musculoskeletal: back normal, normal range of motion, gait/station normal, non- tender Neurologic: alert, motor strength/tone normal, oriented x3, sensory intact, responsive, speech normal Psychiatric: judgement/insight normal, memory normal, mood/affect normal, no suicidal/homicidal ideation Reflexes: 3+ bicep (R), 3+ bicep (L), 3+ tricep (R), 3+ tricep (L), 3+ knee (R) , 3+ knee (L) Skin: other - see nursing skin notes Lymphatic: no adenopathy Procedures Critical Care Time Critical Care Time i. I feel this is a highly complex case requiring extensive working including EKG/Rhythm strip, Xray/CT/US, Blood/urine lab work, repeat exams while in ED, and administration of strong opiates/narcotics for pain control, admission to hospital or close patient follow up. Total time: 60 min bedside evaluation and treatment excludes procedures (EKG). Reason for critical care: SOB, COPD Possible complications: hypotension, hypertension, AK, shock, arrhythmias, metabolic acidosis, end organ damage, respiratory failure. Interventions: BiPAP, nebulizer treatment, ABG, EKG, chest x-ray, labs, IV fluids, antibiotics, Solu-Medrol Course: Patient presenting with shortness of breath. History of COPD. Left AMA from [facility]. Started on BiPAP. ABG shows hypoxia. No hypercapnia. Nebs started. Chest x-ray shows atelectasis. Renal insufficiency noted. Confirmed with [facility] that patient tested negative for coded twice. Respiratory status improved after BiPAP and breathing treatments Consultations: nursing staff, EMS, family Performed by: Dr Adler Tolerated well condition = serious j. because of unstable vital signs this patient had a condition that could potentially threaten life or limb. I feel this is a critical patient who required my full attention while patient was considered critical. Total Critical Care Time excluding procedures was greater than 60 minutes Medical Decision Making Diagnostic Impression: Primary Impression: COPD (chronic obstructive pulmonary disease) Qualified Codes: J44.9 - Chronic obstructive pulmonary disease, unspecified Additional Impressions: Renal insufficiency RBBB Pacemaker ER Course Hospital Course 73-year-old M presenting to ED with SOB. h/o COPD Differential diagnoses include: Pneumonia, CHF exacerbation, pneumothorax, fluid overload Clinical course Patient placed in isolation. I wore full PPE. After initial history and physical, I ordered ABG, BiPAP, nebulizer treatments. ABG shows hypoxia without hypercapnia. I ordered labs, IV fluids, EKG, chest x-ray, blood cultures, UA. Labs - no leukocytosis noted, hemoglobin/hematocrit stable, BUn/Cr elevated, lactate 2.5, troponins negative EKG - RBBB no acute ischemic changes interpreted by me CXR - pacemaker, cardiomegaly, atelectasis we contacted [facility]. Confirmed that patient tested negative for coded in June this hospitalization Given antibiotics. Given Solu-Medrol. Isolation precautions removed. Case discussed with Dr. Shah and he agreed to the patient to his service for further care and support I feel this is a highly complex case requiring extensive working including EKG/ Rhythm strip, Xray/CT/US, Blood/urine lab work, repeat exams while in ED, and administration of strong opiates/narcotics for pain control, admission to hospital or close patient follow up. Diagnosis - COPD exacerbation, RBBB, renal insufficiency, pacemaker Patient admitted to SDU in serious condition Labs Test 06/21/19 14:37 06/21/19 14:45 06/21/19 16:08 Arterial Blood pH 7.477 (7.350-7.450) Arterial Blood Partial Pressure CO2 37.5 mmHg (35.0-45.0) Arterial Blood Partial Pressure O2 47.1 mmHg (75.0-100.0) Arterial Blood HCO3 27.1 mmol/L (22.0-26.0) Arterial Blood Oxygen Saturation 83.9 % (95-100) Arterial Blood Base Excess 3.6 (-2-2) Dewayne Test Positive White Blood Count 14.1 K/UL (4.8-10.8) Red Blood Count 5.20 M/UL (4.70-6.10) Hemoglobin 15.2 G/DL (14.2-18.0) Hematocrit 46.7 % (42.0-52.0) Mean Corpuscular Volume 90 FL (80-99) Mean Corpuscular Hemoglobin 29.1 PG (27.0-31.0) Mean Corpuscular Hemoglobin Concent 32.5 G/DL (32.0-36.0) Red Cell Distribution Width 14.4 % (11.6-14.8) Platelet Count 217 K/UL (150-450) Mean Platelet Volume 9.2 FL (6.5-10.1) Neutrophils (%) (Auto) 79.5 % (45.0-75.0) Lymphocytes (%) (Auto) 13.6 % (20.0-45.0) Monocytes (%) (Auto) 4.8 % (1.0-10.0) Eosinophils (%) (Auto) 0.9 % (0.0-3.0) Basophils (%) (Auto) 1.3 % (0.0-2.0) Sodium Level 142 MMOL/L (136-145) Potassium Level 3.2 MMOL/L (3.5-5.1) Chloride Level 101 MMOL/L (98-107) Carbon Dioxide Level 27 MMOL/L (21-32) Anion Gap 14 mmol/L (5-15) Blood Urea Nitrogen 24 mg/dL (7-18) Creatinine 1.4 MG/DL (0.55-1.30) Estimat Glomerular Filtration Rate 59.9 mL/min (>60) Glucose Level 162 MG/DL (74-106) Lactic Acid Level 2.50 mmol/L (0.4-2.0) 2.30 mmol/L (0.66-2.22) Calcium Level 9.5 MG/DL (8.5-10.1) Total Bilirubin 0.7 MG/DL (0.2-1.0) Aspartate Amino Transf (AST/SGOT) 54 U/L (15-37) Alanine Aminotransferase (ALT/SGPT) 86 U/L (12-78) Alkaline Phosphatase 81 U/L (46-116) Troponin I 0.028 ng/mL (0.000-0.056) Pro-B-Type Natriuretic Peptide 980 pg/mL (0-125) Total Protein 8.0 G/DL (6.4-8.2) Albumin 4.1 G/DL (3.4-5.0) Globulin 3.9 g/dL Albumin/Globulin Ratio 1.1 (1.0-2.7) EKG Diagnostic Results Rate: normal Rhythm: NSR ST Segments: no acute changes ASA given to the pt in ED: No Rhythm Strip Diag. Results EP Interpretation: yes Rhythm: NSR, no PVC's, no ectopy Chest X-Ray Diagnostic Results Chest X-Ray Diagnostic Results : Chest X-Ray Ordered: Yes # of Views/Limited/Complete: 1 View Indication: Shortness of Breath EP Interpretation: Yes Interpretation: no consolidation, no pneumothorax, no acute cardiopulmonary disease, other - ateletasis, pacemaker Impression: Other - atelectasis Electronically Signed by: Electronically signed by Derek Adler MD Last Vital Signs Date Time Temp Pulse Resp B/P (MAP) Pulse Ox O2 Delivery O2 Flow Rate FiO2 06/21/19 14:33 98.2 107 26 137/97 (110) 100 Room Air Status: improved Disposition: ADMITTED INPATIENT Condition: Serious Referrals: NOT CHOSEN IPA/,REFERRING (PCP) Derek Adler MD Jun 21, 2019 15:07
[2019-06-21 15:19] LABS: BASOPHILS % (AUTO) 1.3 % (0.0-2.0); EOSINOPHILS % (AUTO) 0.9 % (0.0-3.0); HEMATOCRIT 46.7 % (42.0-52.0); HEMOGLOBIN 15.2 G/DL (14.2-18.0); LYMPHOCYTES % (AUTO) 13.6 % (20.0-45.0); MEAN CORPUSCULAR VOLUME 90 FL (80-99); MONOCYTES % (AUTO) 4.8 % (1.0-10.0); NEUTROPHILS % (AUTO) 79.5 % (45.0-75.0); PLATELET COUNT 217 K/UL (150-450); RED CELL DISTRIBUTION WIDTH 14.4 % (11.6-14.8); WHITE BLOOD COUNT 14.1 K/UL (4.8-10.8)
--- NOTE | 2019-06-21 15:22 | NUR ---
ED Nurse Note: Pt on breathing treatment at this time. Isolation precautions are implemented. Pt with face mask and closed door.
--- NOTE | 2019-06-21 15:35 | NUR ---
ED Nurse Note: surgical instrument technician at the bed side for CXR.
[2019-06-21 15:40] LABS: ALANINE AMINOTRANSFERASE 86 U/L (12-78); ALBUMIN 4.1 G/DL (3.4-5.0); ALBUMIN/GLOBULIN RATIO 1.1 (1.0-2.7); ALKALINE PHOSPHATASE 81 U/L (46-116); ANION GAP 14 mmol/L (5-15); ASPARTATE AMINO TRANSFERASE 54 U/L (15-37); BILIRUBIN,TOTAL 0.7 MG/DL (0.2-1.0); BLOOD UREA NITROGEN 24 mg/dL (7-18); CALCIUM 9.5 MG/DL (8.5-10.1); CARBON DIOXIDE 27 MMOL/L (21-32); CHLORIDE 101 MMOL/L (98-107); CREATININE 1.4 MG/DL (0.55-1.30); POTASSIUM 3.2 MMOL/L (3.5-5.1); SODIUM 142 MMOL/L (136-145)
[2019-06-21] MEDS ORDERED: Azithromycin 500 MG in NS 275 ML IV ONE (16:15)
[2019-06-21] MEDS ORDERED: Cefepime HCl 1 GM in D5W 55 ML IVPB ONE (16:15)
[2019-06-21 16:40] VITALS: BP 119/58
--- NOTE | 2019-06-21 16:46 | Diagnostic Imaging Report ---
Indication: Shortness of breath Technique: One view of the chest Comparison: 06/01/2019 Findings: There is a left chest unifocal pacemaker again demonstrated. There are bands of atelectasis at the left lung base, decreased from the prior exam. The heart is borderline enlarged. Impression: Left basilar atelectasis. Borderline cardiomegaly No definite acute process otherwise
--- NOTE | 2019-06-21 17:07 | NUR ---
ED Nurse Note: Dr Nayely rebollar not to collect urine specimen if pt unable to provide sample at this time. Pt is more stable and is able to have a conversation with primary RN. Pt connected to Bipap. Will continue to closely monitor the pt.
--- NOTE | 2019-06-21 17:50 | NUR ---
Note brayden in EDM - 06/21/19 at 1841 by MANOJ ED Nurse Note: Dinner provided to pt. No acute distress noted. Pt took off generation technician leads and refused to be connected back again on generation technician.
[2019-06-21 18:42] VITALS: BP 138/89
--- NOTE | 2019-06-21 19:07 | NUR ---
HAND-OFF: Report given to Lalo Tatum RN.
--- NOTE | 2019-06-21 19:07 | NUR ---
ED Nurse Note: received patient from jamari negron. patient resting in bed with no acute distress. ao4 arousable to name, presents with purposeful movements. vss. discussed plan of care; patient aware of pending admission.
[2019-06-21 19:30] VITALS: BP 134/86
--- NOTE | 2019-06-21 19:30 | NUR ---
ED Nurse Note: patient leg urinary bag overflowing. pt reports pelvic pain. drained bag and replaced with bedside collection bag. patient reports relief. repositioned patient for comfort. patient resting comfortably in bed with no acute signs of distress. belongings list completed with patient. monitor attached; changed gown and linens. safety measures met.
--- NOTE | 2019-06-21 19:35 | NUR ---
RESPIRATORY NOTE: received pt in ED on BiPAP 21/08, back up rate 14, 35%. Pt is on a Facial Mask, skin intact, no redness/breakdowns noted. Pt is alert/awake, follows commands. Pt initially refused Foam tape, but eventually allowed me to place foam tape on his nosebridge/cheeks. B/S becca. diminished, nonproductive cough. BiPAP plugged into red outlet, alarms on & audible. Pt in no apparent distress at this time. Will continue plan of care.
[2019-06-21 22:30] VITALS: BP 129/94
--- NOTE | 2019-06-21 22:30 | NUR ---
ED Nurse Note: patient confirmed negativex2 for covid from [facility]. ermd cleared pt from droplet precaution. patient moved from bed 9 to bed 4 with rt via gurney; pt tolerated. bipap reattached. patient attached to monitor; resting in bed; all safety measures met. belongings moved with pt.
[2019-06-21 22:45] LABS: APPEARANCE,URINE CLEAR; BILIRUBIN, URINE NEGATIVE (NEGATIVE); COLOR,URINE PALE YELLOW; GLUCOSE, URINE (UA) NEGATIVE (NEGATIVE); KETONES,URINE 3+ (NEGATIVE); LEUKOCYTE ESTERASE ,URINE 2+ (NEGATIVE); NITRITE,URINE NEGATIVE (NEGATIVE); PH,URINE 5 (4.5-8.0); PROTEIN,URINE NEGATIVE (NEGATIVE); UROBILINOGEN,URINE NORMAL MG/DL (0.0-1.0)
[2019-06-22 01:00] VITALS: BP 117/97
--- NOTE | 2019-06-22 01:00 | NUR ---
ED Nurse Note: patient resting in bed with no signs of acute distress. ao4. nad. vss.
[2019-06-22] MEDS: Albuterol/Ipratropium 3ml neb HHN SCH ×4 (01:56→20:52)
[2019-06-22 03:00] VITALS: BP 126/79
--- NOTE | 2019-06-22 03:00 | NUR ---
ED Nurse Note: patient request to be off bipap. rt at bedside. patient tolerating NC 2L. patient presents with no acute distress. vss. will continue to monitor.
[2019-06-22] MEDS: NS w/KCl 20mEq 1000ml 1,000 ML IV SCH ×2 (03:28→12:51)
--- NOTE | 2019-06-22 04:00 | NUR ---
ED Nurse Note: am labs drawn; sent down to lab. patient iv fluids running as prescribed. patient tolerating NC 2L. provided extra blankets.
[2019-06-22 04:34] LABS: HEMATOCRIT 39.6 % (42.0-52.0); HEMOGLOBIN 13.4 G/DL (14.2-18.0); MEAN CORPUSCULAR VOLUME 86 FL (80-99); PLATELET COUNT 189 K/UL (150-450); RED BLOOD COUNT 4.58 M/UL (4.70-6.10); RED CELL DISTRIBUTION WIDTH 13.5 % (11.6-14.8); WHITE BLOOD COUNT 14.9 K/UL (4.8-10.8)
[2019-06-22 04:49] LABS: ANION GAP 13 mmol/L (5-15); BLOOD UREA NITROGEN 18 mg/dL (7-18); CALCIUM 8.8 MG/DL (8.5-10.1); CARBON DIOXIDE 25 MMOL/L (21-32); CHLORIDE 105 MMOL/L (98-107); CREATININE 1.2 MG/DL (0.55-1.30); POTASSIUM 4.1 MMOL/L (3.5-5.1); SODIUM 143 MMOL/L (136-145)
[2019-06-22 04:53] LABS: ALANINE AMINOTRANSFERASE 62 U/L (12-78); ALBUMIN 3.3 G/DL (3.4-5.0); ALBUMIN/GLOBULIN RATIO 0.9 (1.0-2.7); ALKALINE PHOSPHATASE 64 U/L (46-116); ASPARTATE AMINO TRANSFERASE 30 U/L (15-37); BILIRUBIN,TOTAL 0.6 MG/DL (0.2-1.0)
--- NOTE | 2019-06-22 05:00 | NUR ---
ED Nurse Note: repeat lactic drawn; sent down to lab.
--- NOTE | 2019-06-22 05:30 | NUR ---
ED Nurse Note: rt at bedside; placed patient back on bipap. patient tolerating well. initial iv d/c per patient. restarted new iv on right ac 22g; flushed and patent; fluids running as prescribed.
[2019-06-22] MEDS: Cefepime HCl 1 GM in D5W 55 ML IVPB SCH ×3 (05:43→22:09)
[2019-06-22] MEDS: Solu-MEDROL 40mg Inj IVP SCH ×3 (05:44→22:09)
[2019-06-22] MEDS: NovoLOG Insulin Flexpen SUBQ SCH ×4 (05:45→21:00)
[2019-06-22 06:00] VITALS: BP 115/76
[2019-06-22] MEDS ORDERED: NovoLOG Insulin Flexpen SUBQ SCH (06:30)
--- NOTE | 2019-06-22 07:04 | NUR ---
HAND-OFF: Report given to jerry negron. patient in stable condition. endorsed pending admission.
--- NOTE | 2019-06-22 07:05 | NUR ---
ED Nurse Note: Handoff report received from Felipe MCKEON. Patient AxO x 4, patient removed BiPAP mask himself, states he feels ok at the moment and wanted to spit. O2 sat 88%, which is his baseline. BiPAP mask placed back on the patient.
--- NOTE | 2019-06-22 08:32 | NUR ---
ED Nurse Note: Report given to Loren MCKEON
--- NOTE | 2019-06-22 08:57 | NUR ---
ED Nurse Note: Patient brought up to Tele unit with RN, hitch technician, and RT. Patient stable, reviewed belonging list with Loren MCKEON, who took over care for the patient.
--- NOTE | 2019-06-22 09:15 | NUR ---
NURSE NOTES: pt admitted from ED in stable condition. pt is AOx4. pt has maldonado for retention for the last 7yrs. Pt on founder and chief technical officer, no signs of cardiac or resp distress at this time. pt on 2L o2, he is not complaining of shortness of breath. bed locked and lowest position, call light within reach. pt has $18 dollars and cell ph, director of regional sales inside belonging bag. will continue to monitor
[2019-06-22] MEDS: Eliquis 5mg tablet ORAL SCH ×2 (10:19→17:40)
--- NOTE | 2019-06-22 14:02 | NUR ---
CASE MANAGEMENT:REVIEW 73 YR OLD MALE BIBA FROM STREET CC: SOB PMH: PACEMAKER SI: COPD. RENAL INSUFF. 98.2 107 26 137/97 100% ON RA WBC+14.1 K-3.2 BUN+24 CR+1.4 AST/ALT+54/86 PH+7.47 PO2-47.1 HCO3+27.1 O2 SAT 83.9% IS: PLACED ON BIPAP 2L NS BOLUS IV CEFEPIME IV AZITHROMYCIN DUONEB HHN X1 500CC NS BOLUS IV SOLUMEDROL CHEST XRAY : TELEMETRY STATUS DCP: HOMELESS?
--- NOTE | 2019-06-22 15:00 | NUR ---
NURSE NOTES: 1130 pt refusing B/s checks so insulin can not be given. He states he does not want to be continuously poked. he states he knows the consequences about not checking B/s and getting insulin. 1630 Pt refuse insulin, "stop insisting I don't want to be bothered" pt continuously getting up from bed without oxygen and gets very tired, pt is refusing V/S. 1855 pt had a bowel movement and it was smeared all over floor. This was notified by the pt next to him, not by the Mr Mcintosh. Pt very rude throwing bedding on the floor and
--- NOTE | 2019-06-22 15:27 | NUR ---
NURSE NOTES: Entered a second order of Magnesium because first order dropped on the pixes. So in order to pull out medication a second order of magnesium needed to be entered. Total bags given to pt 2
--- NOTE | 2019-06-22 21:31 | NUR ---
HAND-OFF: Report given to Lea/LINDA pt in stable condition. Endorse pt is refusing VS and B/s checks, as well as insulin.
[2019-06-22] MEDS: Tamsulosin 0.4mg cap ORAL SCH (22:09)
[2019-06-22] MEDS ORDERED: NS w/KCl 20mEq 1000ml 1,000 ML IV SCH (23:00)
[2019-06-23] MEDS: Albuterol/Ipratropium 3ml neb HHN SCH ×4 (02:13→19:00)
--- NOTE | 2019-06-23 03:30 | History and Physical Report ---
DATE OF ADMISSION: 06/21/2019 REASON FOR ADMISSION: Shortness of breath, hypoxia, and bronchospasm. HISTORY OF PRESENT ILLNESS: This 73-year-old male has a known history of COPD and nonischemic cardiomyopathy with pacemaker. He was hospitalized at [facility] for the last 10 days leaving yesterday afternoon against medical advice. His course there was complicated. Medical records were obtained and reviewed for the remainder of this report. Patient was presented there with respiratory distress and required intubation and mechanical ventilation. He was COVID negative x2 during his hospital stay. He ultimately was stabilized, extubated, and is on tapering therapy, but elected to leave against medical advice. It should be noted that the patient has been hospitalized here several times over the past 4 or 6 months and at [facility] as well. He has repeated episodes of leaving against medical advice, noncompliance, and refusal for assisted living arrangements made. He has been unsuccessful at living alone. It should be noted that patient has had home O2 in the past. PAST MEDICAL HISTORY: Hypertension, pacemaker, COPD, history of prostate cancer on Lupron, chronic kidney disease, cerebrovascular disease, paroxysmal atrial fibrillation, hypothyroidism, hyperlipidemia, insulin-requiring diabetes mellitus. ALLERGIES: None. MEDICATIONS: Reviewed. FAMILY HISTORY: Noncontributory. SOCIAL HISTORY: Positive for smoking. Prior alcohol use. No substance abuse. Noncompliance as outlined above. Living situation as outlined above. REVIEW OF SYSTEMS: A 10-point review of systems otherwise unremarkable. Prior echocardiograms have revealed normal ejection fraction, mild pulmonary hypertension, and mild degenerative valve disease. PHYSICAL EXAMINATION: GENERAL: He is in moderate respiratory distress. Awake and alert. He remembers me from prior hospitalization here. VITAL SIGNS: Reviewed in the medical record. HEENT: Oropharynx clear. No thrush. NECK: With accessory muscle use. LUNGS: With coarse breath sounds and wheezes. CARDIAC: Regular rhythm and rate. Normal S1, S2 with a 1/6 systolic apical murmur. ABDOMEN: Soft. EXTREMITIES: No edema. LABORATORY DATA: White count 14.1, hemoglobin 15.2. ABG 7.47, 37, 47. Laboratories today notable for lactic acid initially 2.6, repeated 1.3, magnesium 1.5. Potassium 4.1. Albumin 3.3. IMPRESSION: 1. COPD exacerbation. 2. Chronic hypoxia. 3. Lactic acidosis. 4. Hypomagnesemia. 5. Permanent pacemaker. 6. Paroxysmal atrial fibrillation. 7. Cardiomyopathy due to hypertension. 8. Noncompliance. 9. Mild protein-calorie malnutrition. PLAN: 1. Cardiac monitoring. 2. Steroid taper. 3. Nasal oxygen. 4. BiPAP as needed. 5. Cautious hydration. 6. Replace electrolytes including magnesium as needed. 7. Titrate antihypertensive regimen. 8. Inhaled bronchodilators. 9. Social service consult. Michele Shah M.D. DR: INGRID JOB#: [id number] CC:
[2019-06-23] MEDS: NovoLOG Insulin Flexpen SUBQ SCH ×4 (06:07→21:00)
[2019-06-23 08:00] VITALS: BP 132/80
[2019-06-23] MEDS ORDERED: Solu-MEDROL 40mg Inj IVP SCH (09:00)
[2019-06-23] MEDS: Cefepime HCl 1 GM in D5W 55 ML IVPB SCH ×2 (09:14→21:00)
[2019-06-23] MEDS: Eliquis 5mg tablet ORAL SCH ×2 (09:15→17:02)
--- NOTE | 2019-06-23 09:54 | NUR ---
CASE MANAGEMENT:REVIEW 06/23/19 SI: COPD EXACERBATION CHRONIC HYPOXIA. PAFIB HR 70 SAT~ 94% ON 2L/NC IS: IV SOLUMEDROL Q12 IV CEFEPIME Q12 DUONEB HHN Q6HRS RTC IVF+KCL @ 50/HR FLOMAX PO QHS LIPITOR PO QHS ELIQUIS PO BID SYNTHROID PO QD : TELEMETRY STATUS DCP: SOCIAL SERVICE CONSULT
--- NOTE | 2019-06-23 10:40 | NUR ---
RADIOLOGY DEPT., CHEST X-RAY DONE.-P.DYE
[2019-06-23 12:00] VITALS: BP 134/61
--- NOTE | 2019-06-23 12:40 | Diagnostic Imaging Report ---
Indication: Shortness of breath Technique: One view of the chest Comparison: 06/01/2019 Findings: Heart size and mediastinal contours are stable. Again the heart appears mildly enlarged. The thoracic aorta appears ectatic and calcified. There is mild vascular congestion which is increased compared to the prior exam. Unchanged linear atelectasis or scarring at the left lung base. No new focal consolidation. No pleural effusion or pneumothorax. Left-sided pacemaker unchanged. Osseous structures are without obvious acute abnormality. Impression: Cardiomegaly with indwelling pacemaker. Increased haziness of the pulmonary vascularity compared to prior exam suggesting development of mild congestive changes
--- NOTE | 2019-06-23 13:15 | NUR ---
LATHE SET UP PERSON NOTE PT has re-admitted to [facility] within 30 days: 04/08/19-06/07/19. SW received a consult for homelessness and home safety evaluation. Pt presents as A&O 4x and somewhat hyperverbal. Pt denies homelessness, stating that he was never homeless and he currently resides alone at [address] [address], [place] [address]. Pt has hx of SSI and is currently receiving pension. Pt did not disclose the amount. Pt served [employer] for 4 years and is linked to [facility]. Pt has 5 adult children. Pt's children are not involved in pt's care/tx. Per chart review, pt's address was confirmed by pt's ex- Mariam [phone] and daughter [phone] on 06/04/2019. Pt reports he is ambulatory w/o DMEs and independent w/ ADLs. Pt verbalizes he is able to take bath, cook and do grocery shopping by himself. Pt reports he does not use a shower chair. Pt does not receive caregiving service. Pt plans to return home upon DC. Based on information presented by pt, this SW believes pt may be safe to return home. Pt does not share any social concern/needs at this time. SW encouraged pt to verbalize his needs/concerns while IP. Pt verbalized understanding. SW to F/U as needed.
--- NOTE | 2019-06-23 14:19 | NUR ---
*-* INSURANCE *-* ALL CLINICALS AND REVIEWS HAVE BEEN FAXED TO: [place] COORDINATOR: P: [phone] F: [phone]
[2019-06-23 16:00] VITALS: BP 132/92
--- NOTE | 2019-06-23 19:30 | NUR ---
Report received from Stella Nurse. Pt to be transferred to medical bed 405-2.
[2019-06-23] MEDS: Tamsulosin 0.4mg cap ORAL SCH (21:00)
--- NOTE | 2019-06-23 22:15 | NUR ---
Pt transferred to Medical Bed 405-2 via bed.Tele box removed. Denies pain or respiratory distress. Pt cont'd 2L/NC.
--- NOTE | 2019-06-23 22:15 | NUR ---
NURSE NOTES: Receive pt from telemetry in stable condition. pt a&o x4, verbal and ambulatory. Vitals are stable and no complain of pain. He is covid 19 negative;no sob,fever and cough. pt is on 2 L NC . All belongings are with him. He has a maldonado catheter and RA 22g iv line. I gave him a snack and ice water. call light within reach. We will keep monitoring .
[2019-06-24] MEDS: Albuterol/Ipratropium 3ml neb HHN SCH ×2 (01:00→07:35)
--- NOTE | 2019-06-24 02:45 | Progress Note ---
DATE: 06/23/2019 CARDIOLOGY AND INTERNAL MEDICINE PROGRESS SUBJECTIVE: The patient has less congestion and shortness of breath. He complains of poor appetite. He also noted diarrhea today. PHYSICAL EXAMINATION: VITAL SIGNS: Blood pressure 134/61, pulse 88, respiratory rate 18, oxygen saturation on room air is 92% to 98%. LUNGS: Good breath sounds. Few rhonchi. No wheezing. HEART: Regular rhythm and rate. Normal S1, S2. ABDOMEN: Soft. EXTREMITIES: No edema. LABORATORY AND DIAGNOSTIC DATA: Chest x-ray revealed increase in pulmonary venous pressure. IMPRESSION: 1. COPD exacerbation. 2. Paroxysmal bronchospasm. 3. Hypomagnesemia, resolved. 4. Lactic acidosis. 5. Acute on chronic diastolic congestive heart failure. 6. Permanent pacemaker. 7. Diarrhea. PLAN: 1. Discontinue IV fluids. 2. Diurese with caution. 3. Continue respiratory treatments. 4. Bronchodilators. 5. Steroid taper. 6. Protein supplements. 7. Full anticoagulation. 8. Empiric antimicrobials. 9. Check stool studies including C. difficile toxin. Michele Shah M.D. DR: Jayde JOB#: [id number] CC:
[2019-06-24] MEDS ORDERED: NovoLOG Insulin Flexpen SUBQ SCH (06:30)
--- NOTE | 2019-06-24 07:15 | NUR ---
HAND-OFF: Report given to LINDA cadet.
--- NOTE | 2019-06-24 07:20 | NUR ---
NURSE NOTES: Received patient in bed. Awake, A/Ox4. On room air, respirations unlabored. Patient denies pain. IV in the Right forearm, site is intact. Side rails up x2, bed low and locked, call light within reach. BiPAP machine at the bedside.
--- NOTE | 2019-06-24 08:33 | NUR ---
NURSE NOTES: Patient wants to sign out against medical advice. MD Rashid who was covering for MD Shah was made aware. Patient transported to entrance via wheelchair. Personal belongings inventoried and sent with patient, IV removed and site covered.
[2019-06-24] MEDS ORDERED: Lactobacillus-GG tablet ORAL SCH ×2 (09:00)
[2019-06-24] MEDS ORDERED: Cefepime HCl 1 GM in D5W 55 ML IVPB SCH (09:00)
[2019-06-24] MEDS ORDERED: Eliquis 5mg tablet ORAL SCH (09:00)
[2019-06-24] MEDS ORDERED: Solu-MEDROL 40mg Inj IVP SCH ×2 (09:00)
--- NOTE | 2019-06-24 09:59 | NUR ---
*-* INSURANCE *-* ALL CLINICALS AND REVIEWS HAVE BEEN FAXED TO: [place] COORDINATOR: P: [phone] F: [phone]
[2019-06-24] MEDS ORDERED: Tamsulosin 0.4mg cap ORAL SCH (21:00)
[2019-06-24] MEDS ORDERED: Atorvastatin 20mg tab ORAL SCH (21:00)
--- NOTE | 2019-06-25 12:03 | NUR ---
*-* INSURANCE *-* NO DISCHARGE SUMMARY IN THE SYSTEM UNABLE TO FAX
--- NOTE | 2019-06-26 16:17 | Discharge Summary ---
Discharge Summary Discharge Summary _ DATE OF ADMISSION: 06/21/2019 DATE OF DISCHARGE: 06/24/2019 Patient left AGAINST MEDICAL ADVICE REASON FOR ADMISSION: 73 years old male with past medical history of COPD, hypertension, pacemaker, history of prostate cancer, on Lupron, chronic kidney disease, hyperlipidemia, paroxysmal atrial fibrillation, cerebrovascular disease, hypothyroidism, insulin requiring diabetes mellitus, was hospitalized at [facility] for the last 10-day and left AGAINST MEDICAL ADVICE. His course of hospitalization at [facility] was complicated. Patient initially presented with respiratory distress and required oral intubation and mechanical ventilation. During the hospital stay he was tested for COVID 19 twice and was negative. Ultimately he was stabilized, extubated and was on steroid tapering therapy, but elected to leave AGAINST MEDICAL ADVICE. Of note, patient was hospitalized at [facility] [place] times over the past 4 to 6 months as well as the [facility]. He consistently demonstrated episodes of leaving AGAINST MEDICAL ADVICE, noncompliance, and refusal for assistance with living arrangements. Patient was unsuccessful at living alone. Patient had home oxygen in the past. Upon evaluation patient was found to have leukocytosis WBC 14.1, stable hemoglobin. ABG revealed hypoxia with O2 sat 83.9% on room air. Lactic acid 2.6 , repeated 1.3. Magnesium 1.5. Albumin 3.3. Patient admitted with COPD exacerbation , chronic hypoxia. HOSPITAL COURSE: Patient admitted to telemetry floor. Patient was on steroids with tapering. Supplemental oxygen titrated to keep pulse oximetry above 92%. BiPAP was on standby as needed. Inhaled bronchodilator therapy provide as needed. Patient started on empiric antibiotics. Blood culture 1 out of 4 revealed coagulase negative staph .likely contaminant. Urine culture revealed Randi. likely contaminant. Due to diarrhea, stool for C. difficile was checked and was negative. Patient started on lactobacillus. Magnesium was replaced. Antihypertensive regimen titrated. Home medication continued ,including anticoagulation with Eliquis and statin. Blood sugar was managed with sliding scale of insulin. Patient received 1 dose of Lasix. Protein supplements provided. 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 On oxygen 2 L via nasal cannula pulse oximetry was 92 to 95%. On 06/23 patient decided to sign AGAINST MEDICAL ADVICE. The risks and consequences of signing AGAINST MEDICAL ADVICE were discussed with patient in detail. Patient verbalized understanding, nevertheless signed AMA form and left. FINAL DIAGNOSES: COPD exacerbation Chronic hypoxia Lactic acidosis Hypomagnesemia -resolved Permanent pacemaker Paroxysmal atrial fibrillation Acute on chronic diastolic congestive heart failure Cardiomyopathy due to hypertension Diarrhea Noncompliance Mild protein calorie malnutrition I have been assigned to dictate discharge summary for this account. I was not involved in the patient's management. Karen Lira NP Jun 26, 2019 16:17
--- NOTE | 2019-06-28 11:14 | NUR ---
*-* INSURANCE *-* DISCHARGE SUMMARY HAS BEEN FAXED TO: [facility] [employer]: P: [phone] F: [phone]
== END 2019-06-24 08:30 | disposition left against medical advice (07) | DRG 190 ==
LOC: EDBD 14:39 → EMR 14:58 → EDBEDREQSVC 15:00 → 2E 15:06 → EDBEDREQSVC 15:59 → EDBEDREQ 17:25 → EDBEDREQSVC 06-22 04:30 → EDBEDREQ 06-22 04:30 → 2E 06-23 09:35 → 4E 06-23 21:59
DX: J44.1 Chronic obstructive pulmonary disease with (acute) exacerbation (principal); I50.33 Acute on chronic diastolic (congestive) heart failure; I43 Cardiomyopathy in diseases classified elsewhere; E44.1 Mild protein-calorie malnutrition; E87.2 Acidosis; I13.0 Hypertensive heart and chronic kidney disease with heart failure and stage 1 through stage 4 chronic kidney disease, or unspecified chronic kidney disease; R09.02 Hypoxemia; I45.10 Unspecified right bundle-branch block; E83.42 Hypomagnesemia; N18.9 Chronic kidney disease, unspecified; Z95.0 Presence of cardiac pacemaker; Z91.19 Patient's noncompliance with other medical treatment and regimen; R19.7 Diarrhea, unspecified; Z60.2 Problems related to living alone; E78.5 Hyperlipidemia, unspecified; E11.22 Type 2 diabetes mellitus with diabetic chronic kidney disease; Z79.4 Long term (current) use of insulin
CPT/HCPCS: 36415; 36600; 71045; 80053; 81003; 82270; 82803; 83605; 83735; 83880; 84484; 85025; 87040; 87081; 87086; 87324; 93005; 94640; 96365; 96368; 96375; 99285; J1815; J7030; J7620

== ENCOUNTER 2019-07-11 20:11 | Inpatient (IN) | payer MEDICARE, OTHER ==
[~2019-07-11] VITALS: Ht 182.9 cm; Wt 91.2 kg
[2019-07-11 20:15] VITALS: BP 119/55
[2019-07-11] MEDS ORDERED: Ipratropium 0.02% Inh Soln 2.5ml UD HHN ONE (20:30)
[2019-07-11] MEDS ORDERED: Solu-MEDROL 125mg Inj IVP ONE (20:30)
[2019-07-11] MEDS ORDERED: Albuterol ud Inhalation HHN ONE (20:30)
--- NOTE | 2019-07-11 21:05 | Diagnostic Imaging Report ---
EXAM: XR Chest, 1 View CLINICAL HISTORY: SOB TECHNIQUE: Frontal view of the chest. COMPARISON: Chest x-ray 06/23/2019 FINDINGS: Lungs: No consolidation or interstitial edema. Pulmonary venous congestion. Pleural space: No pleural effusion. No pneumothorax. Heart: Pacemaker lead within the right atrium. Heart size at the upper limits of normal. IMPRESSION: Pulmonary venous congestion.
[2019-07-11 21:07] LABS: BASOPHILS % (AUTO) 1.6 % (0.0-2.0); EOSINOPHILS % (AUTO) 0.9 % (0.0-3.0); HEMATOCRIT 46.8 % (42.0-52.0); LYMPHOCYTES % (AUTO) 25.1 % (20.0-45.0); MEAN CORPUSCULAR VOLUME 95 FL (80-99); MONOCYTES % (AUTO) 4.8 % (1.0-10.0); NEUTROPHILS % (AUTO) 67.6 % (45.0-75.0); PLATELET COUNT 243 K/UL (150-450); RED BLOOD COUNT 4.94 M/UL (4.70-6.10); RED CELL DISTRIBUTION WIDTH 15.1 % (11.6-14.8); WHITE BLOOD COUNT 9.5 K/UL (4.8-10.8)
[2019-07-11 21:32] LABS: ANION GAP 1 mmol/L (5-15); BLOOD UREA NITROGEN 20 mg/dL (7-18); CALCIUM 8.8 MG/DL (8.5-10.1); CARBON DIOXIDE 37 MMOL/L (21-32); CHLORIDE 99 MMOL/L (98-107); CREATININE 1.1 MG/DL (0.55-1.30); POTASSIUM 4.4 MMOL/L (3.5-5.1); SODIUM 137 MMOL/L (136-145)
[2019-07-11 21:40] LABS: ALANINE AMINOTRANSFERASE 50 U/L (12-78); ALBUMIN 3.2 G/DL (3.4-5.0); ALBUMIN/GLOBULIN RATIO 1.1 (1.0-2.7); ALKALINE PHOSPHATASE 65 U/L (46-116); ASPARTATE AMINO TRANSFERASE 25 U/L (15-37); BILIRUBIN,TOTAL 0.3 MG/DL (0.2-1.0)
[2019-07-11] MEDS ORDERED: Albuterol/Ipratropium 3ml neb HHN PRN (22:30)
[2019-07-11] MEDS ORDERED: Nitroglycerin Subl 0.4mg tab SL PRN (22:30)
[2019-07-11] MEDS ORDERED: Mylanta II UD 30ml ORAL PRN (22:30)
[2019-07-11] MEDS ORDERED: Miralax 17gm pkt ORAL PRN (22:30)
[2019-07-11] MEDS ORDERED: Milk of Magnesia 30ml Ud ORAL PRN (22:30)
--- NOTE | 2019-07-11 22:32 | Emergency Room Report ---
History of Present Illness General Chief Complaint: Dyspnea/Respdistress Source: Patient Present Illness HPI 73-year-old male presents ED for shortness of breath. Coming from Street. Hypoxic. History of COPD. States he does not have his oxygen. O2 sats low but improved on nasal cannula. States he was discharged from [facility] yesterday. Denies fevers or chills. Denies cough. Denies chest pain. No other aggravating relieving factors. Denies any other associated symptoms Allergies: Coded Allergies: No Known Allergies (Unverified , 10/24/16) COVID-19 Screening Contact w/high risk pt: No Recent Travel to affected area: No Experienced COVID-19 symptoms?: No COVID-19 symptoms experienced: Shortness of Breath Patient History Past Medical History: COPD Past Surgical History: pacemaker Pertinent Family History: none Social History: Denies: smoking, alcohol use, drug use Immunizations: UTD Reviewed Nursing Documentation: PMH: Agreed; PSxH: Agreed Nursing Documentation-PMH Hx Cardiac Problems: Yes Hx Hypertension: No Hx Pacemaker: Yes - LEFT UPPER CHEST Hx Asthma: No Hx COPD: Yes Hx Diabetes: No Hx Cancer: Yes Hx Gastrointestinal Problems: No Hx Dialysis: No Hx Neurological Problems: No Hx Cerebrovascular Accident: No Hx Seizures: No Review of Systems All Other Systems: negative except mentioned in HPI Physical Exam Vital Signs Date Time Temp Pulse Resp B/P (MAP) Pulse Ox O2 Delivery O2 Flow Rate FiO2 07/11/19 20:12 56 22 119/55 (76) 95 Nasal Cannula 4.0 07/11/19 20:35 36 Sp02 EP Interpretation: reviewed, normal General Appearance: no apparent distress, alert, GCS 15, non-toxic Head: normocephalic, atraumatic Eyes: bilateral eye normal inspection, bilateral eye PERRL ENT: hearing grossly normal, normal pharynx, no angioedema, normal voice Neck: full range of motion, supple/symm/no masses Respiratory: chest non-tender, decreased breath sounds, speaking full sentences , wheezing Cardiovascular #1: regular rate, rhythm, no edema Cardiovascular #2: 2+ carotid (R), 2+ carotid (L), 2+ radial (R), 2+ radial (L) , 2+ dorsalis pedis (R), 2+ dorsalis pedis (L) Gastrointestinal: normal bowel sounds, non tender, soft, non-distended, no guarding, no rebound Rectal: deferred Genitourinary: normal inspection, no CVA tenderness Musculoskeletal: back normal, normal range of motion, gait/station normal, non- tender Neurologic: alert, motor strength/tone normal, oriented x3, sensory intact, responsive, speech normal Psychiatric: judgement/insight normal, memory normal, mood/affect normal, no suicidal/homicidal ideation Reflexes: 3+ bicep (R), 3+ bicep (L), 3+ tricep (R), 3+ tricep (L), 3+ knee (R) , 3+ knee (L) Skin: no rash Lymphatic: no adenopathy Procedures Critical Care Time Critical Care Time i. I feel this is a highly complex case requiring extensive working including EKG/Rhythm strip, Xray/CT/US, Blood/urine lab work, repeat exams while in ED, and administration of strong opiates/narcotics for pain control, admission to hospital or close patient follow up. Total time: 30 min bedside evaluation and treatment excludes procedures (EKG). Reason for critical care: hypoxia, COPD Possible complications: hypotension, hypertension, NV, shock, arrhythmias, metabolic acidosis, end organ damage, respiratory failure. Interventions: Labs, EKG, chest x-ray, nebulizer treatment, Solu-Medrol, antibiotics Course: Patient presenting with shortness of breath. History of COPD. Reduced breath sounds. Hypoxic on room air. Started on breathing treatments. Given Solu-Medrol. O2 sats improved after breathing treatments. Consultations: nursing staff, EMS, family Performed by: Dr Adler Tolerated well condition = serious j. because of unstable vital signs this patient had a condition that could potentially threaten life or limb. I feel this is a critical patient who required my full attention while patient was considered critical. Total Critical Care Time excluding procedures was greater than 35 minutes Medical Decision Making Diagnostic Impression: Primary Impression: COPD (chronic obstructive pulmonary disease) Qualified Codes: J44.9 - Chronic obstructive pulmonary disease, unspecified ER Course Hospital Course 73-year-old M presenting to ED with SOB. h/o COPD Differential diagnoses include: Pneumonia, CHF exacerbation, pneumothorax, fluid overload Clinical course Patient placed on stretcher. On manager monitoring with hypoxia. After initial history and physical, I ordered nebulizer treatments. I ordered labs, IV fluids , EKG, chest x-ray, blood cultures, UA. Labs - no leukocytosis noted, hemoglobin/hematocrit stable, electrolytes okay, lactate 2.9, troponins negative CXR - pulmoanry congestion, pacemaker EKG - sinus tachycardia no acute ischemic changes interpreted by me O2 sats improved after breathing treatments. Given antibiotics. Given IV fluids. Patient has been admitted here recently. Left AMA. Patient is left AMA from [facility] multiple times. On recent hospitalization patient also tested negative for COVID twice. I have no suspicion for COVID at this time. Case discussed with Dr. Shaffer and he agreed to the patient to his service for further care and support I feel this is a highly complex case requiring extensive working including EKG/ Rhythm strip, Xray/CT/US, Blood/urine lab work, repeat exams while in ED, and administration of strong opiates/narcotics for pain control, admission to hospital or close patient follow up. Diagnosis - COPD exacerbation Patient admitted to telemetry in serious condition Labs Test 07/11/19 20:53 07/11/19 21:08 White Blood Count 9.5 K/UL (4.8-10.8) Red Blood Count 4.94 M/UL (4.70-6.10) Hemoglobin 14.0 G/DL (14.2-18.0) Hematocrit 46.8 % (42.0-52.0) Mean Corpuscular Volume 95 FL (80-99) Mean Corpuscular Hemoglobin 28.3 PG (27.0-31.0) Mean Corpuscular Hemoglobin Concent 29.9 G/DL (32.0-36.0) Red Cell Distribution Width 15.1 % (11.6-14.8) Platelet Count 243 K/UL (150-450) Mean Platelet Volume 8.1 FL (6.5-10.1) Neutrophils (%) (Auto) 67.6 % (45.0-75.0) Lymphocytes (%) (Auto) 25.1 % (20.0-45.0) Monocytes (%) (Auto) 4.8 % (1.0-10.0) Eosinophils (%) (Auto) 0.9 % (0.0-3.0) Basophils (%) (Auto) 1.6 % (0.0-2.0) Lactic Acid Level 2.90 mmol/L (0.4-2.0) Sodium Level 137 MMOL/L (136-145) Potassium Level 4.4 MMOL/L (3.5-5.1) Chloride Level 99 MMOL/L (98-107) Carbon Dioxide Level 37 MMOL/L (21-32) Anion Gap 1 mmol/L (5-15) Blood Urea Nitrogen 20 mg/dL (7-18) Creatinine 1.1 MG/DL (0.55-1.30) Estimat Glomerular Filtration Rate > 60 mL/min (>60) Glucose Level 207 MG/DL (74-106) Calcium Level 8.8 MG/DL (8.5-10.1) Total Bilirubin 0.3 MG/DL (0.2-1.0) Aspartate Amino Transf (AST/SGOT) 25 U/L (15-37) Alanine Aminotransferase (ALT/SGPT) 50 U/L (12-78) Alkaline Phosphatase 65 U/L (46-116) Troponin I 0.024 ng/mL (0.000-0.056) Pro-B-Type Natriuretic Peptide 622 pg/mL (0-125) Total Protein 6.1 G/DL (6.4-8.2) Albumin 3.2 G/DL (3.4-5.0) Globulin 2.9 g/dL Albumin/Globulin Ratio 1.1 (1.0-2.7) EKG Diagnostic Results Rate: tachycardiac Rhythm: NSR ST Segments: no acute changes ASA given to the pt in ED: No Rhythm Strip Diag. Results EP Interpretation: yes Rhythm: NSR, no PVC's, no ectopy Chest X-Ray Diagnostic Results Chest X-Ray Diagnostic Results : Chest X-Ray Ordered: Yes # of Views/Limited/Complete: 1 View Indication: Shortness of Breath EP Interpretation: Yes Interpretation: no effusion, no pneumothorax, other - pulmonay congestion. pacemaker Impression: Other - CHF Electronically Signed by: Electronically signed by Derek Adler MD Last Vital Signs Date Time Temp Pulse Resp B/P (MAP) Pulse Ox O2 Delivery O2 Flow Rate FiO2 07/11/19 20:55 115 17 97 Nasal Cannula 3.0 32 07/11/19 20:12 119/55 (76) Status: improved Disposition: ADMITTED INPATIENT Condition: Serious Scripts No Active Prescriptions or Reported Meds Referrals: NOT CHOSEN IPA/,REFERRING (PCP) Derek Adler MD July 11, 2019 22:32
[2019-07-11] MEDS: Albuterol/Ipratropium 3ml neb HHN SCH ×3 (22:39→22:58)
[2019-07-11 22:40] LABS: APPEARANCE,URINE SLIGHTLY CLOUDY; BILIRUBIN, URINE NEGATIVE (NEGATIVE); COLOR,URINE PALE YELLOW; GLUCOSE, URINE (UA) NEGATIVE (NEGATIVE); KETONES,URINE NEGATIVE (NEGATIVE); LEUKOCYTE ESTERASE ,URINE 3+ (NEGATIVE); NITRITE,URINE NEGATIVE (NEGATIVE); PH,URINE 5 (4.5-8.0); PROTEIN,URINE 1+ (NEGATIVE); UROBILINOGEN,URINE NORMAL MG/DL (0.0-1.0)
[2019-07-12] VITALS (8 sets, daily range): BP systolic 122–148; BP diastolic 68–83
--- NOTE | 2019-07-12 00:26 | Diagnostic Imaging Report ---
EXAM: CT Chest Without Intravenous Contrast CLINICAL HISTORY: COPD TECHNIQUE: Axial computed tomography images of the chest without intravenous contrast. CTDI is 7.9 mGy and DLP is 303.9 mGy-cm. One or more of the following dose reduction techniques were used: automated exposure control, adjustment of the mA and/or kV according to patient size, use of iterative reconstruction technique. COMPARISON: Chest CT 05/20/2019 FINDINGS: Lungs: Subsegmental atelectasis within the lingula and left lower lobe. Dependent atelectasis within the upper lobes. Mild upper lobe centrilobular emphysematous changes. Right lower lobe mucous plugging with atelectasis. No consolidation or interstitial edema. Pleural space: Trace left pleural effusion. No pneumothorax. Heart: Cardiomegaly. No significant pericardial effusion. Bones/joints: Unremarkable. No acute fracture. No dislocation. Soft tissues: Unremarkable. Vasculature: Unremarkable. No thoracic aortic aneurysm. Lymph nodes: Unremarkable. No enlarged lymph nodes. IMPRESSION: 1. Multifocal atelectasis in the lungs most pronounced in the right lower lobe where there is mucous plugging, similar to the prior study. 2. Mild upper lobe centrilobular emphysematous changes. 3. Cardiomegaly. 4. Trace left pleural effusion.
[2019-07-12] MEDS: Albuterol/Ipratropium 3ml neb HHN SCH ×4 (01:41→19:47)
[2019-07-12 06:18] LABS: HEMATOCRIT 39.4 % (42.0-52.0); HEMOGLOBIN 12.9 G/DL (14.2-18.0); MEAN CORPUSCULAR VOLUME 90 FL (80-99); PLATELET COUNT 199 K/UL (150-450); RED BLOOD COUNT 4.37 M/UL (4.70-6.10); RED CELL DISTRIBUTION WIDTH 13.5 % (11.6-14.8); WHITE BLOOD COUNT 10.6 K/UL (4.8-10.8)
[2019-07-12 06:21] LABS: ANION GAP 7 mmol/L (5-15); BLOOD UREA NITROGEN 25 mg/dL (7-18); CALCIUM 8.8 MG/DL (8.5-10.1); CARBON DIOXIDE 31 MMOL/L (21-32); CHLORIDE 96 MMOL/L (98-107); CREATININE 1.6 MG/DL (0.55-1.30); SODIUM 136 MMOL/L (136-145)
[2019-07-12] MEDS: NovoLOG Insulin Flexpen SUBQ SCH ×4 (07:41→20:28)
[2019-07-12] MEDS ORDERED: Sodium Polystyrene Sulfonate 15gm Powder ORAL SCH (08:00)
[2019-07-12] MEDS ORDERED: Docusate 100mg cap ORAL SCH (09:00)
[2019-07-12] MEDS: Eliquis 5mg tablet ORAL SCH ×2 (09:27→18:13)
[2019-07-12] MEDS: Wixela 250/50 Inhaler - 60 dose INH SCH ×2 (09:27→18:14)
--- NOTE | 2019-07-12 14:19 | History & Physical ---
History of Present Illness General Date patient seen: July 12, 2019 Time patient seen: 14:13 Reason for Hospitalization: Dyspnea/Respdistress Present Illness HPI 73 M smoker h/o COPD, non-compliance, DM, AF/Fl on Eliquis, h/o PM, DM2, thyroid CA S/P thyroidectomy, pros CA on int Lupron, chronic hypercapnic RF, signed out AMA from [facility] yesterday after neg COVID testing p/w persistent SOB, cough, wheezing, no FC, no CP. Seen by Dr. Yusuf in June, did not follow up. Allergies: Coded Allergies: No Known Allergies (Unverified , 10/24/16) COVID-19 Screening Contact w/high risk pt: No Recent Travel to affected area: No Experienced COVID-19 symptoms?: No COVID-19 symptoms experienced: Shortness of Breath Medication History No Active Prescriptions or Reported Meds Medications Narrative D/C meds reviewed in CS-link, recon not done by [facility] yet Patient History History Provided By: Patient Healthcare decision maker Resuscitation status FC Advanced Directive on File Past Medical/Surgical History Past Medical/Surgical History: (1) Hypothyroid (2) Interstitial pneumonia (3) Prostate cancer (4) Pacemaker (5) RBBB (6) Diabetes mellitus (7) Renal insufficiency Review of Systems Review of Symptoms General ROS: no weight loss or fever Psychological ROS: no depression or mood changes, no memory loss Ophthalmic ROS: no visual changes or eye irritation ENT ROS: no nasal congestion, hearing loss, dizziness Allergy and Immunology ROS: no allergic symptoms or urticaria Hematological and Lymphatic ROS: no swollen glands, unusual bleeding or bruising Endocrine ROS: no polyuria, polydipsia, weight changes, temperature intolerance Respiratory ROS: no cough, shortness of breath, or wheezing Cardiovascular ROS: no chest pain or dyspnea on exertion Gastrointestinal ROS: denies abdominal pain, bright red blood in stool. Musculoskeletal ROS: no myalgias or arthralgias Neurological ROS: no TIA or stroke symptoms Dermatological ROS: no new or changing skin lesions, rashes or pruritis Physical Exam Physical Exam General appearance: alert, cooperative, no distress, appears stated age Head: Normocephalic, without obvious abnormality, atraumatic Eyes: conjunctivae/corneas clear. PERRL, EOM's intact. Fundi benign Throat: Lips, mucosa, and tongue normal. Teeth and gums normal Neck: supple, symmetrical, trachea midline, no adenopathy, thyroid: not enlarged, symmetric, no tenderness/mass/nodules, no carotid bruit and no JVD Lungs: clear to auscultation but distant Heart: regular rate and rhythm, S1, S2 normal, no murmur, click, rub or gallop Abdomen: soft, non-tender. Bowel sounds normal. No masses, no organomegaly Extremities: extremities normal, atraumatic, no cyanosis or edema Pulses: 2+ and symmetric Skin: Skin color, texture, turgor normal. No rashes or lesions Neurologic: Grossly normal Last 24 Hour Vital Signs Date Time Temp Pulse Resp B/P (MAP) Pulse Ox O2 Delivery O2 Flow Rate FiO2 07/12/19 13:25 98.4 61 17 125/72 99 Venturi Mask 6.0 07/12/19 13:17 104 18 96 Venturi Mask 6.0 35 102 18 96 07/12/19 10:01 98.4 66 16 127/83 92 Venturi Mask 6.0 07/12/19 06:41 98.4 69 18 122/78 90 Venturi Mask 6.0 35 07/12/19 02:00 98.1 88 22 133/75 88 Venturi Mask 6.0 35 07/12/19 01:51 102 15 99 Venturi Mask 6.0 35 07/12/19 01:41 103 17 93 Venturi Mask 6.0 35 07/12/19 01:41 93 Venturi Mask 6.0 35 07/12/19 01:40 103 17 93 Venturi Mask 6.0 35 07/12/19 00:05 97.9 98 20 148/68 86 Venturi Mask 6.0 35 07/11/19 23:10 113 21 97 Venturi Mask 6.0 35 07/11/19 22:59 112 14 100 07/11/19 22:59 112 17 100 07/11/19 22:49 112 13 100 07/11/19 22:48 115 14 100 07/11/19 22:38 113 21 90 Nasal Cannula 4.0 36 07/11/19 20:55 115 17 97 Nasal Cannula 3.0 32 07/11/19 20:35 110 25 100 Nasal Cannula 4.0 36 07/11/19 20:15 98.1 110 22 119/55 95 Nasal Cannula 4.0 07/11/19 20:15 56 22 Nasal Cannula 4.0 07/11/19 20:12 56 22 119/55 (76) 95 Nasal Cannula 4.0 Laboratory Tests Test 07/11/19 20:30 07/11/19 20:53 07/11/19 21:08 07/11/19 23:22 Urine Color Pale yellow Urine Appearance Slightly cloudy Urine pH 5 (4.5-8.0) Urine Specific [place] 1.020 (1.005-1.035) Urine Protein 1+ (NEGATIVE) H Urine Glucose (UA) Negative (NEGATIVE) Urine Ketones Negative (NEGATIVE) Urine Blood 1+ (NEGATIVE) H Urine Nitrite Negative (NEGATIVE) Urine Bilirubin Negative (NEGATIVE) Urine Urobilinogen Normal MG/DL (0.0-1.0) Urine Leukocyte Esterase 3+ (NEGATIVE) H Urine RBC 2-4 /HPF (0 - 0) H Urine WBC 20-30 /HPF (0 - 0) H Urine Squamous Epithelial Cells Few /LPF (NONE/OCC) Urine Bacteria Moderate /HPF (NONE) H White Blood Count 9.5 K/UL (4.8-10.8) Red Blood Count 4.94 M/UL (4.70-6.10) Hemoglobin 14.0 G/DL (14.2-18.0) L Hematocrit 46.8 % (42.0-52.0) Mean Corpuscular Volume 95 FL (80-99) Mean Corpuscular Hemoglobin 28.3 PG (27.0-31.0) Mean Corpuscular Hemoglobin Concent 29.9 G/DL (32.0-36.0) L Red Cell Distribution Width 15.1 % (11.6-14.8) H Platelet Count 243 K/UL (150-450) Mean Platelet Volume 8.1 FL (6.5-10.1) Neutrophils (%) (Auto) 67.6 % (45.0-75.0) Lymphocytes (%) (Auto) 25.1 % (20.0-45.0) Monocytes (%) (Auto) 4.8 % (1.0-10.0) Eosinophils (%) (Auto) 0.9 % (0.0-3.0) Basophils (%) (Auto) 1.6 % (0.0-2.0) Lactic Acid Level 2.90 mmol/L (0.4-2.0) H 3.70 mmol/L (0.66-2.22) H Sodium Level 137 MMOL/L (136-145) Potassium Level 4.4 MMOL/L (3.5-5.1) Chloride Level 99 MMOL/L (98-107) Carbon Dioxide Level 37 MMOL/L (21-32) H Anion Gap 1 mmol/L (5-15) L Blood Urea Nitrogen 20 mg/dL (7-18) H Creatinine 1.1 MG/DL (0.55-1.30) Estimat Glomerular Filtration Rate > 60 mL/min (>60) Glucose Level 207 MG/DL (74-106) H Calcium Level 8.8 MG/DL (8.5-10.1) Total Bilirubin 0.3 MG/DL (0.2-1.0) Aspartate Amino Transf (AST/SGOT) 25 U/L (15-37) Alanine Aminotransferase (ALT/SGPT) 50 U/L (12-78) Alkaline Phosphatase 65 U/L (46-116) Troponin I 0.024 ng/mL (0.000-0.056) Pro-B-Type Natriuretic Peptide 622 pg/mL (0-125) H Total Protein 6.1 G/DL (6.4-8.2) L Albumin 3.2 G/DL (3.4-5.0) L Globulin 2.9 g/dL Albumin/Globulin Ratio 1.1 (1.0-2.7) Test 07/12/19 05:55 White Blood Count 10.6 K/UL (4.8-10.8) Red Blood Count 4.37 M/UL (4.70-6.10) L Hemoglobin 12.9 G/DL (14.2-18.0) L Hematocrit 39.4 % (42.0-52.0) L Mean Corpuscular Volume 90 FL (80-99) Mean Corpuscular Hemoglobin 29.5 PG (27.0-31.0) Mean Corpuscular Hemoglobin Concent 32.7 G/DL (32.0-36.0) Red Cell Distribution Width 13.5 % (11.6-14.8) Platelet Count 199 K/UL (150-450) Mean Platelet Volume 6.6 FL (6.5-10.1) Neutrophils (%) (Auto) % (45.0-75.0) Lymphocytes (%) (Auto) % (20.0-45.0) Monocytes (%) (Auto) % (1.0-10.0) Eosinophils (%) (Auto) % (0.0-3.0) Basophils (%) (Auto) % (0.0-2.0) Sodium Level 136 MMOL/L (136-145) Potassium Level 6.0 MMOL/L (3.5-5.1) *H Chloride Level 96 MMOL/L (98-107) L Carbon Dioxide Level 31 MMOL/L (21-32) Anion Gap 7 mmol/L (5-15) Blood Urea Nitrogen 25 mg/dL (7-18) H Creatinine 1.6 MG/DL (0.55-1.30) H Estimat Glomerular Filtration Rate 51.3 mL/min (>60) Glucose Level 567 MG/DL (74-106) #*H Calcium Level 8.8 MG/DL (8.5-10.1) Microbiology Date/Time Source Procedure Growth Status 07/11/19 20:30 Urine,Clean Catch Urine Culture - Preliminary NO GROWTH Resulted Height (Feet): 6 Weight (Pounds): 197 Medications Current Medications Medications (Trade) Dose Ordered Sig/Dejon Route PRN Reason Start Time Stop Time Status Last Admin Dose Admin Acetaminophen (Tylenol) 650 mg Q4H PRN ORAL Mild Pain (Pain Scale 1-3) 07/11/19 22:30 08/10/19 22:29 Acetaminophen (Tylenol) 650 mg Q4H PRN ORAL Temp >100.5 07/11/19 22:30 08/10/19 22:29 Al Hydroxide/Mg Hydroxide (Mylanta II) 30 ml Q6H PRN ORAL dyspepsia 07/11/19 22:30 08/10/19 22:29 Albuterol/ Ipratropium (Albuterol/ Ipratropium) 3 ml Q4HRT PRN HHN Shortness of Breath 07/11/19 22:30 07/16/19 22:29 Albuterol/ Ipratropium (Albuterol/ Ipratropium) 3 ml Q6HRT HHN 07/12/19 01:00 07/17/19 00:59 07/12/19 13:05 Apixaban (Eliquis) 5 mg BID ORAL 07/12/19 09:00 10/10/19 08:59 07/12/19 09:27 Atorvastatin Calcium (Lipitor) 20 mg QHS ORAL 07/12/19 21:00 10/10/19 20:59 Bisacodyl (Dulcolax) 10 mg HSPRN PRN RECTAL Constipation 07/11/19 22:30 10/09/19 22:29 Dextrose (Dextrose 50%) 25 ml Q30M PRN IV Hypoglycemia 07/11/19 22:30 10/09/19 22:29 Dextrose (Dextrose 50%) 50 ml Q30M PRN IV Hypoglycemia 07/11/19 22:30 10/09/19 22:29 Docusate Sodium (Colace) 100 mg EVERY 12 HOURS ORAL 07/12/19 09:00 08/11/19 08:59 07/12/19 08:08 Insulin Aspart (NovoLOG) BEFORE MEALS AND HS SUBQ 07/12/19 06:30 10/10/19 06:29 07/12/19 11:36 Levothyroxine Sodium (Synthroid) 150 mcg DAILY@0630 ORAL 07/12/19 06:30 08/11/19 06:29 07/12/19 07:40 Magnesium Hydroxide (Mom) 30 ml HSPRN PRN ORAL Constipation 07/11/19 22:30 08/10/19 22:29 Nitroglycerin (Ntg) 0.4 mg Q5M X 3 DOSES PRN SL Prn Chest Pain 07/11/19 22:30 08/10/19 22:29 Ondansetron HCl (Zofran) 4 mg Q6H PRN IVP Nausea & Vomiting 07/11/19 22:30 08/10/19 22:29 Polyethylene Glycol (Miralax) 17 gm HSPRN PRN ORAL Constipation 07/11/19 22:30 08/10/19 22:29 Prednisone (predniSONE) 40 mg DAILY ORAL 07/12/19 09:00 08/11/19 08:59 07/12/19 09:27 Salmeterol Xinafoate/ Fluticasone (Advair 250/50 Diskus) 1 puffs BID INH 07/12/19 09:00 10/10/19 08:59 07/12/19 09:27 Tamsulosin HCl (Flomax) 0.4 mg BEDTIME ORAL 07/12/19 21:00 08/11/19 20:59 Tiotropium Craig (Spiriva Inhaler) 1 puff DAILY INH 07/12/19 09:00 08/11/19 08:59 07/12/19 09:26 Assessment/Plan Problem List: (1) Hyperkalemia ICD Codes: E87.5 - Hyperkalemia SNOMED: 03471225 (2) Atrial fib/flutter, transient SNOMED: 902978152 (3) COPD exacerbation ICD Codes: J44.1 - Chronic obstructive pulmonary disease with (acute) exacerbation SNOMED: 663174475 (4) Acute and chronic respiratory failure with hypercapnia ICD Codes: J96.22 - Acute and chronic respiratory failure with hypercapnia SNOMED: 0584780363728 (5) Pacemaker ICD Codes: Z95.0 - Presence of cardiac pacemaker SNOMED: 296805186 (6) Cardiac LV ejection fraction >40% ICD Codes: R94.30 - Abnormal result of cardiovascular function study, unspecified SNOMED: 592844207 (7) Prostate cancer ICD Codes: C61 - Malignant neoplasm of prostate SNOMED: 621963650 (8) Renal insufficiency ICD Codes: N28.9 - Disorder of kidney and ureter, unspecified SNOMED: 700477240 (9) Diabetes mellitus ICD Codes: E11.9 - Type 2 diabetes mellitus without complications SNOMED: 51859995 (10) Hypothyroid ICD Codes: E03.9 - Hypothyroidism, unspecified SNOMED: 06979614 (11) RBBB ICD Codes: I45.10 - Unspecified right bundle-branch block SNOMED: 32442514 Assessment/Plan: Admit to tele Optimize pulmonary hygiene/mobilize as tolerated F/U ABG Will likely need NIPPV at night Titrate Fio2 to keep SaO2 > 90% HHN's Pred 60 D2 Observe off Abx Monitor volumes and renal function S/P Kayexelate, monitor BS Renal eval Endo eval Abstain from smoking, nicotine patch DVT Px: Eliquis Establish compliance with care FC [facility] Hospital declaration INPATIENT level of care is warranted for this patient because patient is a 89 year old with who presents with suspicion of . I have a high level of concern because . Patient is at high risk for . Plan of care/treatment include . Patient care is expected to be greater than 2 midnights. OBSERVATION level of care is warranted for this patient. Patient is a 89 year old with who presents with . Patient will be admitted for 1 midnight, but if additional night(s) is/are necessary, patient will be converted to inpatient status for the entire hospitalization Disposition: Once the patient is stable to leave the hospital, I anticipate the patient will likely be discharged to the following environment: Estimated discharge date: I spent 70 minutes on this patient's case, and minutes was dedicated to counseling and/or care coordination. MIPS (Merit-based Incentive Payment System) Applicable CPT: 63177, 87759 CHECK ALL THAT ARE MET: Measure #5 (CHF): All ages. Prescribe PARISH/ARB upon discharge for patients with left ventricular systolic dysfunction. If not, the reason is clearly documented in the medical chart. Measure #8 (CHF): All ages. Prescribe a beta harry upon discharge for patients with left ventricular systolic dysfunction. If not, the reason is clearly documented in the medical chart. Measure #47 Advance care plan or surrogate decision maker documented in the medical record. Measure #130 The provider has documented, updated, or reviewed the patients current medication list and has documented it in the patients note. Measure #374 (All): Send report to referring provider. Measure #407(Sepsis due to MSSA bacteremia): Age 18+ Patient treated with a beta-lactam antibiotic (Nafcillin, Oxacillin or Cefazolin) as definitive therapy. MEDICAL COMPLEXITY High complexity medical decision making (need 2/3 categories) Problem - need 4 points Acute/new problem with new plan for workup (4 points, 1 max) Acute/new problem without additional workup (3 points, 1 max) Unstable chronic problem actively being managed (2 point each, 2 max) Stable chronic problem actively being managed (1 point each, 2 max) Self-limited/transient process (constipation, muscle ache, etc) (1 point each , 2 max) Data - need 4 points Reviewed labs/imaging studies (1 points, 2 max) Independent review of imaging (EKG, xrays, etc) (2 points, 2 max) Discussed case with consult/other MD/RN (2 points, 2 max) High Risk - qualify if have one of the following: Severe exacerbation of acute problem, acute mental status change, IV narcotics , monitoring drug levels (vancomycin, INR, tacrolimus etc) Tevin Shaffer MD July 12, 2019 14:19
--- NOTE | 2019-07-12 14:36 | Cardiac Electrophysiology PN ---
Subjective Subjective [id number] Objective Last 24 Hour Vital Signs Date Time Temp Pulse Resp B/P (MAP) Pulse Ox O2 Delivery O2 Flow Rate FiO2 07/12/19 13:25 98.4 61 17 125/72 99 Venturi Mask 6.0 07/12/19 13:17 104 18 96 Venturi Mask 6.0 35 102 18 96 07/12/19 10:01 98.4 66 16 127/83 92 Venturi Mask 6.0 07/12/19 06:41 98.4 69 18 122/78 90 Venturi Mask 6.0 35 07/12/19 02:00 98.1 88 22 133/75 88 Venturi Mask 6.0 35 07/12/19 01:51 102 15 99 Venturi Mask 6.0 35 07/12/19 01:41 103 17 93 Venturi Mask 6.0 35 07/12/19 01:41 93 Venturi Mask 6.0 35 07/12/19 01:40 103 17 93 Venturi Mask 6.0 35 07/12/19 00:05 97.9 98 20 148/68 86 Venturi Mask 6.0 35 07/11/19 23:10 113 21 97 Venturi Mask 6.0 35 07/11/19 22:59 112 14 100 07/11/19 22:59 112 17 100 07/11/19 22:49 112 13 100 07/11/19 22:48 115 14 100 07/11/19 22:38 113 21 90 Nasal Cannula 4.0 36 07/11/19 20:55 115 17 97 Nasal Cannula 3.0 32 07/11/19 20:35 110 25 100 Nasal Cannula 4.0 36 07/11/19 20:15 98.1 110 22 119/55 95 Nasal Cannula 4.0 07/11/19 20:15 56 22 Nasal Cannula 4.0 07/11/19 20:12 56 22 119/55 (76) 95 Nasal Cannula 4.0 Laboratory Tests Test 07/11/19 20:30 07/11/19 20:53 07/11/19 21:08 07/11/19 23:22 Urine Color Pale yellow Urine Appearance Slightly cloudy Urine pH 5 (4.5-8.0) Urine Specific [place] 1.020 (1.005-1.035) Urine Protein 1+ (NEGATIVE) H Urine Glucose (UA) Negative (NEGATIVE) Urine Ketones Negative (NEGATIVE) Urine Blood 1+ (NEGATIVE) H Urine Nitrite Negative (NEGATIVE) Urine Bilirubin Negative (NEGATIVE) Urine Urobilinogen Normal MG/DL (0.0-1.0) Urine Leukocyte Esterase 3+ (NEGATIVE) H Urine RBC 2-4 /HPF (0 - 0) H Urine WBC 20-30 /HPF (0 - 0) H Urine Squamous Epithelial Cells Few /LPF (NONE/OCC) Urine Bacteria Moderate /HPF (NONE) H White Blood Count 9.5 K/UL (4.8-10.8) Red Blood Count 4.94 M/UL (4.70-6.10) Hemoglobin 14.0 G/DL (14.2-18.0) L Hematocrit 46.8 % (42.0-52.0) Mean Corpuscular Volume 95 FL (80-99) Mean Corpuscular Hemoglobin 28.3 PG (27.0-31.0) Mean Corpuscular Hemoglobin Concent 29.9 G/DL (32.0-36.0) L Red Cell Distribution Width 15.1 % (11.6-14.8) H Platelet Count 243 K/UL (150-450) Mean Platelet Volume 8.1 FL (6.5-10.1) Neutrophils (%) (Auto) 67.6 % (45.0-75.0) Lymphocytes (%) (Auto) 25.1 % (20.0-45.0) Monocytes (%) (Auto) 4.8 % (1.0-10.0) Eosinophils (%) (Auto) 0.9 % (0.0-3.0) Basophils (%) (Auto) 1.6 % (0.0-2.0) Lactic Acid Level 2.90 mmol/L (0.4-2.0) H 3.70 mmol/L (0.66-2.22) H Sodium Level 137 MMOL/L (136-145) Potassium Level 4.4 MMOL/L (3.5-5.1) Chloride Level 99 MMOL/L (98-107) Carbon Dioxide Level 37 MMOL/L (21-32) H Anion Gap 1 mmol/L (5-15) L Blood Urea Nitrogen 20 mg/dL (7-18) H Creatinine 1.1 MG/DL (0.55-1.30) Estimat Glomerular Filtration Rate > 60 mL/min (>60) Glucose Level 207 MG/DL (74-106) H Calcium Level 8.8 MG/DL (8.5-10.1) Total Bilirubin 0.3 MG/DL (0.2-1.0) Aspartate Amino Transf (AST/SGOT) 25 U/L (15-37) Alanine Aminotransferase (ALT/SGPT) 50 U/L (12-78) Alkaline Phosphatase 65 U/L (46-116) Troponin I 0.024 ng/mL (0.000-0.056) Pro-B-Type Natriuretic Peptide 622 pg/mL (0-125) H Total Protein 6.1 G/DL (6.4-8.2) L Albumin 3.2 G/DL (3.4-5.0) L Globulin 2.9 g/dL Albumin/Globulin Ratio 1.1 (1.0-2.7) Test 07/12/19 05:55 White Blood Count 10.6 K/UL (4.8-10.8) Red Blood Count 4.37 M/UL (4.70-6.10) L Hemoglobin 12.9 G/DL (14.2-18.0) L Hematocrit 39.4 % (42.0-52.0) L Mean Corpuscular Volume 90 FL (80-99) Mean Corpuscular Hemoglobin 29.5 PG (27.0-31.0) Mean Corpuscular Hemoglobin Concent 32.7 G/DL (32.0-36.0) Red Cell Distribution Width 13.5 % (11.6-14.8) Platelet Count 199 K/UL (150-450) Mean Platelet Volume 6.6 FL (6.5-10.1) Neutrophils (%) (Auto) % (45.0-75.0) Lymphocytes (%) (Auto) % (20.0-45.0) Monocytes (%) (Auto) % (1.0-10.0) Eosinophils (%) (Auto) % (0.0-3.0) Basophils (%) (Auto) % (0.0-2.0) Sodium Level 136 MMOL/L (136-145) Potassium Level 6.0 MMOL/L (3.5-5.1) *H Chloride Level 96 MMOL/L (98-107) L Carbon Dioxide Level 31 MMOL/L (21-32) Anion Gap 7 mmol/L (5-15) Blood Urea Nitrogen 25 mg/dL (7-18) H Creatinine 1.6 MG/DL (0.55-1.30) H Estimat Glomerular Filtration Rate 51.3 mL/min (>60) Glucose Level 567 MG/DL (74-106) #*H Calcium Level 8.8 MG/DL (8.5-10.1) Microbiology Date/Time Source Procedure Growth Status 07/11/19 20:30 Urine,Clean Catch Urine Culture - Preliminary NO GROWTH Resulted Martin Valle MD July 12, 2019 14:36
--- NOTE | 2019-07-12 16:27 | Consultation ---
Consult Note Consult Note asked to eval for elevated Cr and serum K Patient seen in ER room 3 confused examined has joel discussed with RN 73-year-old male presents ED for shortness of breath. Coming from Street. Hypoxic. History of COPD. States he does not have his oxygen. O2 sats low but improved on nasal cannula. States he was discharged from [facility] yesterday. Denies fevers or chills. Denies cough. Denies chest pain. No other aggravating relieving factors. Denies any other associated symptoms No Known Allergies (Unverified , 10/24/16) COVID-19 Screening Contact w/high risk pt: No Recent Travel to affected area: No Experienced COVID-19 symptoms?: No COVID-19 symptoms experienced: Shortness of Breath Past Medical History: COPD Past Surgical History: pacemaker Hx Cardiac Problems: Yes Hx Hypertension: No Hx Pacemaker: Yes - LEFT UPPER CHEST Hx COPD: Yes Hx Cancer: Yes . Assessment/Plan Elevated Cr and K : Recheck for ? Lab error Hyperglycemia, DM COPD / Pneumonia Pacer Encephalopathy Hypothyroid UA indicative of UTI Recheck Labs Reviewed labs creatinine 1.4 and potassium of 5.3 Slow hydrate Pulmonary toilet 2D echocardiogram Monitor renal parameters Fab Coelho MD July 12, 2019 16:27
[2019-07-12 16:28] LABS: ALANINE AMINOTRANSFERASE 58 U/L (12-78); ALBUMIN 3.4 G/DL (3.4-5.0); ALKALINE PHOSPHATASE 76 U/L (46-116); ANION GAP 8 mmol/L (5-15); ASPARTATE AMINO TRANSFERASE 24 U/L (15-37); BILIRUBIN,TOTAL 0.3 MG/DL (0.2-1.0); BLOOD UREA NITROGEN 21 mg/dL (7-18); CALCIUM 9.4 MG/DL (8.5-10.1); CARBON DIOXIDE 34 MMOL/L (21-32); CHLORIDE 96 MMOL/L (98-107); CREATININE 1.4 MG/DL (0.55-1.30); PHOSPHORUS 3.5 MG/DL (2.5-4.9); POTASSIUM 5.3 MMOL/L (3.5-5.1); SODIUM 138 MMOL/L (136-145)
[2019-07-12] MEDS: Tamsulosin 0.4mg cap ORAL SCH (20:29)
[2019-07-12] MEDS: Atorvastatin 20mg tab ORAL SCH (20:29)
--- NOTE | 2019-07-12 20:30 | Consultation ---
DATE OF CONSULTATION: 07/12/2019 CARDIOLOGY CONSULTATION CONSULTING PHYSICIAN: Martin Valle MD. REASON FOR CONSULTATION: Management of atrial fibrillation. HISTORY OF PRESENT ILLNESS: The patient is a 73-year-old gentleman with history of hypertension, diabetes, paroxysmal atrial fibrillation on Eliquis as well as COPD, noncompliance, and thyroid cancer status post thyroidectomy as well as prostate cancer on Lupron as well as chronic respiratory failure who was just recently signed out AMA from [facility] yesterday after negative COVID tests. The patient came into the emergency room for increasing shortness of breath and wheezing. The patient was being admitted and Cardiology consultation was obtained for further evaluation and management. REVIEW OF SYSTEMS: Review of systems was negative other than what was mentioned in history of present illness. PAST MEDICAL HISTORY: 1. Hypertension. 2. Atrial fibrillation. 3. History of . 4. Pacemaker placement. FAMILY HISTORY: Noncontributory. SOCIAL HISTORY: He lives at home. Does not smoke or drink alcohol. PHYSICAL EXAMINATION: VITAL SIGNS: Show a blood pressure of 110/70, pulse 70, respirations 18. He is afebrile. CARDIAC: Pacemaker is in the left subclavian. ABDOMEN: Soft. EXTREMITIES: A 1+ pitting edema. LABORATORY AND DIAGNOSTIC DATA: His labs show white count 10.6, hemoglobin 12.9, hematocrit 39.4, and platelet count is 199. Sodium 138, potassium 6.0, BUN of 25, creatinine 1.6, and glucose of 567. Troponin is negative. ASSESSMENT AND PLAN: 1. Atrial fibrillation, the rate is currently controlled. Continue Eliquis 5 mg b.i.d. The patient off any AV alejandrina blocking agents. 2. Bradycardia, status post pacemaker implantation in the past. We will interrogate the pacemaker, the patient does not know the brand yet. 3. History of thyroid cancer on Synthroid, status post thyroidectomy. 4. Prostate cancer on . 5. Hyperlipidemia on Lipitor. 6. COPD on prednisone and Flonase. Thank you very much for allowing me to participate in the care of this patient. Please do not hesitate to contact me for any questions regarding my evaluation. Sincerely, Martin Valle M.D. DR: Alecia JOB#: [id number] CC:
[2019-07-13] VITALS: BP 110/81
[2019-07-13] MEDS: Albuterol/Ipratropium 3ml neb HHN SCH ×4 (01:00→19:45)
[2019-07-13 04:00] VITALS: BP 123/89
[2019-07-13] MEDS: NovoLOG Insulin Flexpen SUBQ SCH ×6 (05:49→21:05)
[2019-07-13 08:00] VITALS: BP 142/68
--- NOTE | 2019-07-13 08:31 | Pulmonology Progress Note ---
Karen Lira EMBROIDERY DESIGNER 07/13/19 0831: Assessment/Plan Assessment/Plan ASSESSMENT Exacerbation of COPD Acute and chronic respiratory failure with hypercapnia Hyperkalemia KAYLAN vs CRI Atrial fib/flutter Pacemaker Hx of prostate cancer Hx of thyroid cancer, s/p thyroidectomy Diabetes mellitus OOC ( HgA1c 9.4) Hyperglycemia associated with DM Tobacco abuse Noncompliance with care PLAN OF CARE tele optimize pulmonary hygiene/mobilize as tolerated F/U ABG will likely need NIPPV at night titrate Fio2 to keep SaO2 > 90% HHN's ATC and prn ; Advair and Spiriva inhaler Pred tapered to 40 D3 observe off abx CXR and CTA noted monitor volumes and renal function s/p Kayexalate, nephro follows gentle IV hydration, monitor renal parameters, lytes, correct lytes as needed, avoid nephrotoxics hx of prostate Ca, on Lupron continue Flomax, monitor voiding UA suggestive of UTI, bu UCX NGT, leep off abx monitor BS [id number] not at goal endo on board BS management as per endo recs: LA insulin, SA insulin pre-meal and SSI prn diabetic diet hx of thyroid cancer ,on Synthroid, TSH WNL 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 on abstinence from smoking, nicotine patch DVT Px: Kavita has pacemaker, interrogation as per cardio ECHO done, preliminary report no WMA, pEF continue statin reinforce compliance with care/medications/diet Full code case discussed and evaluated by supervising physician Subjective Allergies: Coded Allergies: No Known Allergies (Unverified , 10/24/16) Subjective on tele ABG pending no fevers, no leukocytosis on O2 4 L via NC , no signs of resp distress Objective Last 24 Hour Vital Signs Date Time Temp Pulse Resp B/P (MAP) Pulse Ox O2 Delivery O2 Flow Rate FiO2 07/13/19 07:47 93 Nasal Cannula 4.0 36 07/13/19 07:45 116 18 94 Nasal Cannula 4.0 36 114 24 84 07/13/19 04:00 97.2 111 19 123/89 (100) 93 07/13/19 04:00 110 07/13/19 00:00 97.3 116 19 110/81 (91) 92 07/13/19 00:00 115 07/12/19 21:00 Venturi Mask 7.0 07/12/19 20:00 110 07/12/19 20:00 97.6 112 19 129/77 (94) 92 07/12/19 19:45 110 17 96 Venturi Mask 6.0 35 112 18 92 07/12/19 19:45 92 Venturi Mask 6.0 35 07/12/19 18:14 Venturi Mask 7.0 07/12/19 18:14 98.2 111 18 123/70 (87) 96 07/12/19 18:00 98.0 76 19 136/87 99 Room Air 07/12/19 16:42 98.4 69 16 129/79 98 Venturi Mask 6.0 83 07/12/19 13:25 98.4 61 17 125/72 99 Venturi Mask 6.0 07/12/19 13:17 104 18 96 Venturi Mask 6.0 35 102 18 96 07/12/19 10:01 98.4 66 16 127/83 92 Venturi Mask 6.0 Intake and Output 07/12/19 07/13/19 19:00 07:00 Intake Total 300 ml Output Total 1600 ml 1000 ml Balance -1600 ml -700 ml Intake IV Total 300 ml Output Urine Total 1600 ml 1000 ml # Bowel Movements 1 1 General Appearance: no acute distress HEENT: normocephalic, atraumatic, anicteric, mucous membranes moist, PERRL, other - O2 via NC Respiratory/Chest: no respiratory distress, decreased breath sounds Cardiovascular: no JVD, tachycardia - A fib with RVR low tachy 100-110 Abdomen: normal bowel sounds, soft, non tender, non distended Neurologic/Psychiatric: alert, oriented x 3, responsive Musculoskeletal: normal muscle bulk Microbiology Date/Time Source Procedure Growth Status 07/11/19 20:53 Blood Blood Culture - Preliminary NO GROWTH AFTER 24 HOURS Resulted 07/11/19 20:35 Blood Blood Culture - Preliminary NO GROWTH AFTER 24 HOURS Resulted 07/11/19 20:30 Urine,Clean Catch Urine Culture - Preliminary Resulted Laboratory Tests 07/12/19 15:40: Sodium Level 138, Potassium Level 5.3H, Chloride Level 96L, Carbon Dioxide Level 34H, Anion Gap 8, Blood Urea Nitrogen 21H, Creatinine 1.4H, Estimat Glomerular Filtration Rate 59.9, Glucose Level 516*H, Calcium Level 9.4, Phosphorus Level 3.5, Magnesium Level 2.1, Total Bilirubin 0.3, Aspartate Amino Transf (AST/SGOT) 24, Alanine Aminotransferase (ALT/SGPT) 58, Alkaline Phosphatase 76, Total Protein 6.7, Albumin 3.4, Globulin 3.3, Albumin/Globulin Ratio 1.0, Thyroid Stimulating Hormone (TSH) 1.286 Current Medications Medications (Trade) Dose Ordered Sig/Dejon Route PRN Reason Start Time Stop Time Status Last Admin Dose Admin Acetaminophen (Tylenol) 650 mg Q4H PRN ORAL Mild Pain (Pain Scale 1-3) 07/11/19 22:30 08/10/19 22:29 Acetaminophen (Tylenol) 650 mg Q4H PRN ORAL Temp >100.5 07/11/19 22:30 08/10/19 22:29 Al Hydroxide/Mg Hydroxide (Mylanta II) 30 ml Q6H PRN ORAL dyspepsia 07/11/19 22:30 08/10/19 22:29 Albuterol/ Ipratropium (Albuterol/ Ipratropium) 3 ml Q4HRT PRN HHN Shortness of Breath 07/11/19 22:30 07/16/19 22:29 Albuterol/ Ipratropium (Albuterol/ Ipratropium) 3 ml Q6HRT HHN 07/12/19 01:00 07/17/19 00:59 07/13/19 07:45 Apixaban (Eliquis) 5 mg BID ORAL 07/12/19 09:00 10/10/19 08:59 07/12/19 18:13 Atorvastatin Calcium (Lipitor) 20 mg QHS ORAL 07/12/19 21:00 10/10/19 20:59 07/12/19 20:29 Bisacodyl (Dulcolax) 10 mg HSPRN PRN RECTAL Constipation 07/11/19 22:30 10/09/19 22:29 Dextrose (Dextrose 50%) 25 ml Q30M PRN IV Hypoglycemia 07/13/19 07:45 10/11/19 07:44 Dextrose (Dextrose 50%) 50 ml Q30M PRN IV Hypoglycemia 07/13/19 07:45 10/11/19 07:44 Docusate Sodium (Colace) 100 mg TID ORAL 07/13/19 09:00 08/11/19 08:59 Insulin Aspart (NovoLOG) BEFORE MEALS AND HS SUBQ 07/12/19 06:30 8/2/20 06:29 07/12/19 20:28 Insulin Aspart (NovoLOG) 6 units NOVOTIAC SUBQ 07/13/19 11:50 10/11/19 11:49 Insulin Detemir (Levemir) 18 units DAILY SUBQ 07/13/19 09:00 10/11/19 08:59 Levothyroxine Sodium (Synthroid) 150 mcg DAILY@0630 ORAL 07/12/19 06:30 08/11/19 06:29 07/13/19 05:42 Magnesium Hydroxide (Mom) 30 ml HSPRN PRN ORAL Constipation 07/11/19 22:30 08/10/19 22:29 Nitroglycerin (Ntg) 0.4 mg Q5M X 3 DOSES PRN SL Prn Chest Pain 07/11/19 22:30 08/10/19 22:29 Ondansetron HCl (Zofran) 4 mg Q6H PRN IVP Nausea & Vomiting 07/11/19 22:30 08/10/19 22:29 Pantoprazole (Protonix) 40 mg EVERY 12 HOURS ORAL 07/12/19 21:00 08/11/19 20:59 07/12/19 20:30 Polyethylene Glycol (Miralax) 17 gm HSPRN PRN ORAL Constipation 07/11/19 22:30 08/10/19 22:29 Prednisone (predniSONE) 40 mg DAILY ORAL 07/12/19 09:00 08/11/19 08:59 07/12/19 09:27 Salmeterol Xinafoate/ Fluticasone (Advair 250/50 Diskus) 1 puffs BID INH 07/12/19 09:00 10/10/19 08:59 07/12/19 18:14 Sodium Chloride 1,000 ml @ 50 mls/hr Q20H IV 07/12/19 19:15 08/11/19 19:14 07/12/19 20:07 Tamsulosin HCl (Flomax) 0.4 mg BEDTIME ORAL 07/12/19 21:00 08/11/19 20:59 07/12/19 20:29 Tiotropium Bronte (Spiriva Inhaler) 1 puff DAILY INH 07/12/19 09:00 08/11/19 08:59 07/12/19 09:26 Tevin Shaffer MD 07/13/19 1159: Assessment/Plan Assessment/Plan Patient seen and examined with EMBROIDERY DESIGNER, agree with A&P above as it reflects our joint deliberations. Subjective Allergies: Coded Allergies: No Known Allergies (Unverified , 10/24/16) Karen Lira NP July 13, 2019 08:31 Tevin Shaffer MD July 13, 2019 11:59
[2019-07-13] MEDS: Docusate 100mg cap ORAL SCH ×3 (08:59→16:59)
[2019-07-13] MEDS: Levemir Flexpen SUBQ SCH (09:00)
[2019-07-13] MEDS: Wixela 250/50 Inhaler - 60 dose INH SCH ×2 (09:03→17:00)
[2019-07-13] MEDS: Eliquis 5mg tablet ORAL SCH ×2 (09:04→16:59)
[2019-07-13 09:10] LABS: BASOPHILS % (AUTO) 0.7 % (0.0-2.0); EOSINOPHILS % (AUTO) 0.3 % (0.0-3.0); HEMATOCRIT 38.3 % (42.0-52.0); HEMOGLOBIN 12.9 G/DL (14.2-18.0); LYMPHOCYTES % (AUTO) 14.2 % (20.0-45.0); MEAN CORPUSCULAR VOLUME 89 FL (80-99); MONOCYTES % (AUTO) 3.7 % (1.0-10.0); NEUTROPHILS % (AUTO) 81.1 % (45.0-75.0); PLATELET COUNT 207 K/UL (150-450); RED BLOOD COUNT 4.33 M/UL (4.70-6.10); RED CELL DISTRIBUTION WIDTH 13.1 % (11.6-14.8); WHITE BLOOD COUNT 16.3 K/UL (4.8-10.8)
[2019-07-13 09:43] LABS: ALANINE AMINOTRANSFERASE 45 U/L (12-78); ALBUMIN 2.9 G/DL (3.4-5.0); ALKALINE PHOSPHATASE 74 U/L (46-116); ANION GAP 5 mmol/L (5-15); ASPARTATE AMINO TRANSFERASE 24 U/L (15-37); BILIRUBIN,TOTAL 0.3 MG/DL (0.2-1.0); BLOOD UREA NITROGEN 23 mg/dL (7-18); CALCIUM 8.6 MG/DL (8.5-10.1); CARBON DIOXIDE 34 MMOL/L (21-32); CHLORIDE 100 MMOL/L (98-107); CREATINE KINASE 31 U/L (26-308); CREATININE 1.1 MG/DL (0.55-1.30); FERRITIN 28 NG/ML (8-388); GAMMA GLUTAMYL TRANSPEPTIDASE 28 U/L (5-85); HDL CHOLESTEROL 106 MG/DL (40-60); LACTATE DEHYDROGENASE 220 U/L (81-234); PHOSPHORUS 2.9 MG/DL (2.5-4.9); POTASSIUM 4.2 MMOL/L (3.5-5.1); SODIUM 139 MMOL/L (136-145); TRIGLYCERIDES 89 MG/DL (30-150)
--- NOTE | 2019-07-13 10:06 | Cardiac Electrophysiology PN ---
Assessment/Plan Assessment/Plan 1. Atrial flutter with RVR 130s, Continue Eliquis 5 mg b.i.d. Add Cardizem 60 tid 2. Bradycardia, status post pacemaker implantation at [facility]. Awaiting records. Patient doesn't know the brand. We will interrogate the pacemaker 3. RBBB, LAFB 4. History of thyroid cancer on Synthroid, status post thyroidectomy. 5. Prostate cancer 6. Hyperlipidemia on Lipitor. 7. COPD on prednisone and Flonase. Subjective Subjective Refusing BS check. No CP or SOB. In atrial flutter with rate 110 Objective Last 24 Hour Vital Signs Date Time Temp Pulse Resp B/P (MAP) Pulse Ox O2 Delivery O2 Flow Rate FiO2 07/13/19 08:00 98.1 113 20 142/68 (92) 96 07/13/19 07:47 93 Nasal Cannula 4.0 36 07/13/19 07:45 116 18 94 Nasal Cannula 4.0 36 114 24 84 07/13/19 04:00 97.2 111 19 123/89 (100) 93 07/13/19 04:00 110 07/13/19 00:00 97.3 116 19 110/81 (91) 92 07/13/19 00:00 115 07/12/19 21:00 Venturi Mask 7.0 07/12/19 20:00 110 07/12/19 20:00 97.6 112 19 129/77 (94) 92 07/12/19 19:45 110 17 96 Venturi Mask 6.0 35 112 18 92 07/12/19 19:45 92 Venturi Mask 6.0 35 07/12/19 18:14 Venturi Mask 7.0 07/12/19 18:14 98.2 111 18 123/70 (87) 96 07/12/19 18:00 98.0 76 19 136/87 99 Room Air 07/12/19 16:42 98.4 69 16 129/79 98 Venturi Mask 6.0 83 07/12/19 13:25 98.4 61 17 125/72 99 Venturi Mask 6.0 07/12/19 13:17 104 18 96 Venturi Mask 6.0 35 102 18 96 07/12/19 10:01 98.4 66 16 127/83 92 Venturi Mask 6.0 Intake and Output 07/12/19 07/13/19 19:00 07:00 Intake Total 300 ml Output Total 1600 ml 1000 ml Balance -1600 ml -700 ml IV Total 300 ml Output Urine Total 1600 ml 1000 ml # Bowel Movements 1 1 Laboratory Tests Test 07/12/19 15:40 07/13/19 08:05 Sodium Level 138 MMOL/L (136-145) Pending Potassium Level 5.3 MMOL/L (3.5-5.1) H Pending Chloride Level 96 MMOL/L (98-107) L Pending Carbon Dioxide Level 34 MMOL/L (21-32) H Pending Anion Gap 8 mmol/L (5-15) Blood Urea Nitrogen 21 mg/dL (7-18) H Pending Creatinine 1.4 MG/DL (0.55-1.30) H Pending Estimat Glomerular Filtration Rate 59.9 mL/min (>60) Pending Glucose Level 516 MG/DL (74-106) *H Pending Calcium Level 9.4 MG/DL (8.5-10.1) Pending Phosphorus Level 3.5 MG/DL (2.5-4.9) Pending Magnesium Level 2.1 MG/DL (1.8-2.4) Pending Total Bilirubin 0.3 MG/DL (0.2-1.0) Pending Aspartate Amino Transf (AST/SGOT) 24 U/L (15-37) Pending Alanine Aminotransferase (ALT/SGPT) 58 U/L (12-78) Pending Alkaline Phosphatase 76 U/L (46-116) Pending Total Protein 6.7 G/DL (6.4-8.2) Pending Albumin 3.4 G/DL (3.4-5.0) Pending Globulin 3.3 g/dL Pending Albumin/Globulin Ratio 1.0 (1.0-2.7) Thyroid Stimulating Hormone (TSH) 1.286 uiU/mL (0.358-3.740) White Blood Count 16.3 K/UL (4.8-10.8) #H Red Blood Count 4.33 M/UL (4.70-6.10) L Hemoglobin 12.9 G/DL (14.2-18.0) L Hematocrit 38.3 % (42.0-52.0) L Mean Corpuscular Volume 89 FL (80-99) Mean Corpuscular Hemoglobin 29.7 PG (27.0-31.0) Mean Corpuscular Hemoglobin Concent 33.6 G/DL (32.0-36.0) Red Cell Distribution Width 13.1 % (11.6-14.8) Platelet Count 207 K/UL (150-450) Mean Platelet Volume 6.5 FL (6.5-10.1) Neutrophils (%) (Auto) 81.1 % (45.0-75.0) H Lymphocytes (%) (Auto) 14.2 % (20.0-45.0) L Monocytes (%) (Auto) 3.7 % (1.0-10.0) Eosinophils (%) (Auto) 0.3 % (0.0-3.0) Basophils (%) (Auto) 0.7 % (0.0-2.0) D-Dimer 0.30 mg/L FEU (0.00-0.49) Hemoglobin A1c 8.8 % (4.3-6.0) H Uric Acid Pending Ferritin Pending Gamma Glutamyl Transpeptidase Pending Lactate Dehydrogenase Pending Total Creatine Kinase Pending Troponin I 0.028 ng/mL (0.000-0.056) C-Reactive Protein, Quantitative Pending Pro-B-Type Natriuretic Peptide Pending Triglycerides Level Pending Cholesterol Level Pending LDL Cholesterol Pending HDL Cholesterol Pending Cholesterol/HDL Ratio Pending Free Thyroxine Pending Free Triiodothyronine Pending Microbiology Date/Time Source Procedure Growth Status 07/11/19 20:53 Blood Blood Culture - Preliminary NO GROWTH AFTER 24 HOURS Resulted 07/11/19 20:35 Blood Blood Culture - Preliminary NO GROWTH AFTER 24 HOURS Resulted 07/11/19 20:30 Urine,Clean Catch Urine Culture - Preliminary Resulted Objective HEET: No JVD LUNGS: Clear. CARDIAC: Pacemaker is in the left subclavian. Irregular ABDOMEN: Soft. EXTREMITIES: A 1+ pitting edema. Martin Valle MD July 13, 2019 10:06
--- NOTE | 2019-07-13 10:40 | Nephrology Progress Note ---
Assessment/Plan Problem List: (1) KAYLAN (acute kidney injury) (2) Pacemaker (3) Prostate cancer (4) COPD (chronic obstructive pulmonary disease) (5) Hyperglycemia Assessment Elevated Cr and K : Recheck for ? Lab error Hyperglycemia, DM COPD / Pneumonia Pacer Encephalopathy Hypothyroid UA indicative of UTI Plan Recheck Labs, today results noted. Serum creatinine and serum potassium now within normal limit. Reviewed labs on July 11 evening: Creatinine 1.4 and potassium of 5.3 Slow hydrate Pulmonary toilet 2D echocardiogram Monitor renal parameters Meanwhile patient is very uncooperative. Refusing blood sugar check and some medication on and off. Subjective ROS Limited/Unobtainable: No Constitutional: Reports: malaise Objective Objective Last 24 Hour Vital Signs Date Time Temp Pulse Resp B/P (MAP) Pulse Ox O2 Delivery O2 Flow Rate FiO2 07/13/19 09:00 Nasal Cannula 4.0 07/13/19 08:00 98.1 113 20 142/68 (92) 96 07/13/19 08:00 113 07/13/19 07:47 93 Nasal Cannula 4.0 36 07/13/19 07:45 116 18 94 Nasal Cannula 4.0 36 114 24 84 07/13/19 04:00 97.2 111 19 123/89 (100) 93 07/13/19 04:00 110 07/13/19 00:00 97.3 116 19 110/81 (91) 92 07/13/19 00:00 115 07/12/19 21:00 Venturi Mask 7.0 07/12/19 20:00 110 07/12/19 20:00 97.6 112 19 129/77 (94) 92 07/12/19 19:45 110 17 96 Venturi Mask 6.0 35 112 18 92 07/12/19 19:45 92 Venturi Mask 6.0 35 07/12/19 18:14 Venturi Mask 7.0 07/12/19 18:14 98.2 111 18 123/70 (87) 96 07/12/19 18:00 98.0 76 19 136/87 99 Room Air 07/12/19 16:42 98.4 69 16 129/79 98 Venturi Mask 6.0 83 07/12/19 13:25 98.4 61 17 125/72 99 Venturi Mask 6.0 07/12/19 13:17 104 18 96 Venturi Mask 6.0 35 102 18 96 Intake and Output 07/12/19 07/13/19 19:00 07:00 Intake Total 300 ml Output Total 1600 ml 1000 ml Balance -1600 ml -700 ml IV Total 300 ml Output Urine Total 1600 ml 1000 ml # Bowel Movements 1 1 Laboratory Tests 07/12/19 15:40: Sodium Level 138, Potassium Level 5.3H, Chloride Level 96L, Carbon Dioxide Level 34H, Anion Gap 8, Blood Urea Nitrogen 21H, Creatinine 1.4H, Estimat Glomerular Filtration Rate 59.9, Glucose Level 516*H, Calcium Level 9.4, Phosphorus Level 3.5, Magnesium Level 2.1, Total Bilirubin 0.3, Aspartate Amino Transf (AST/SGOT) 24, Alanine Aminotransferase (ALT/SGPT) 58, Alkaline Phosphatase 76, Total Protein 6.7, Albumin 3.4, Globulin 3.3, Albumin/Globulin Ratio 1.0, Thyroid Stimulating Hormone (TSH) 1.286 07/13/19 08:05: Sodium Level 139, Potassium Level 4.2, Chloride Level 100, Carbon Dioxide Level 34H, Anion Gap 5, Blood Urea Nitrogen 23H, Creatinine 1.1, Estimat Glomerular Filtration Rate > 60, Glucose Level 394#H, Calcium Level 8.6, Phosphorus Level 2.9, Magnesium Level 1.8, Total Bilirubin 0.3, Aspartate Amino Transf (AST/SGOT ) 24, Alanine Aminotransferase (ALT/SGPT) 45, Alkaline Phosphatase 74, Total Protein 5.9L, Albumin 2.9L, Globulin 3.0, Albumin/Globulin Ratio 1.0, White Blood Count 16.3#H, Red Blood Count 4.33L, Hemoglobin 12.9L, Hematocrit 38.3L, Mean Corpuscular Volume 89, Mean Corpuscular Hemoglobin 29.7, Mean Corpuscular Hemoglobin Concent 33.6, Red Cell Distribution Width 13.1, Platelet Count 207, Mean Platelet Volume 6.5, Neutrophils (%) (Auto) 81.1H, Lymphocytes (%) (Auto) 14.2L, Monocytes (%) (Auto) 3.7, Eosinophils (%) (Auto) 0.3, Basophils (%) (Auto ) 0.7, D-Dimer 0.30, Hemoglobin A1c 8.8H, Uric Acid 4.7, Ferritin 28, Gamma Glutamyl Transpeptidase 28, Lactate Dehydrogenase 220, Total Creatine Kinase 31 , Troponin I 0.028, C-Reactive Protein, Quantitative < 0.4, Pro-B-Type Natriuretic Peptide 375H, Triglycerides Level 89, Cholesterol Level [Pending], LDL Cholesterol 68, HDL Cholesterol 106H, Cholesterol/HDL Ratio [Pending], Free Thyroxine 1.13, Free Triiodothyronine 1.2L Height (Feet): 6 Height (Inches): 0.00 Weight (Pounds): 197 General Appearance: no apparent distress, agitated Cardiovascular: tachycardia Respiratory/Chest: decreased breath sounds Abdomen: distended Fab Coelho MD July 13, 2019 10:40
[2019-07-13 10:53] LABS: CHOLESTEROL 196 MG/DL (< 200)
[2019-07-13 11:55] VITALS: BP 119/88
[2019-07-13] MEDS: dilTIAZem HCl 60mg tab ORAL SCH ×2 (14:18→21:06)
--- NOTE | 2019-07-13 19:14 | Consultation ---
DATE OF CONSULTATION: 07/13/2019 ENDOCRINOLOGY CONSULTATION CONSULTING PHYSICIAN: Geovanni To M.D. REFERRING PHYSICIAN: Tevin Shaffer M.D. REASON FOR CONSULTATION: Diabetes management. HISTORY OF PRESENT ILLNESS: The patient is a 73-year-old male with history of diabetes, hypothyroidism, and COPD, who had a recent admission and presentation to [facility] with COPD exacerbation. The patient was discharged on July 09. The patient presented to the [facility] yesterday with shortness of breath. Denies any cough or fever. The patient's glucose was 500 on presentation and admitted to the floor for observation and treatment. Endocrinology was consulted in order to assist in the management of diabetes. PAST MEDICAL HISTORY: 1. Diabetes, on metformin. 2. AFib, on Eliquis. 3. COPD. 4. Postsurgical hypothyroidism. 5. History of thyroid cancer. 6. Prostate cancer, on Lupron. 7. Chronic hypercapnic respiratory failure due to COPD. Recent negative COVID testing at [facility]. PAST SURGICAL HISTORY: Total thyroidectomy for thyroid cancer. MEDICATIONS: Reviewed and reconciled. REVIEW OF SYSTEMS: As per HPI. LABORATORY DATA: Sodium 138, potassium 6.3, chloride 96, bicarb 34, BUN 21, creatinine 1.4, glucose of 516. Lactic acid of 3.7. CBC shows WBC of 10, hemoglobin 12, hematocrit 39, platelets of 199. FAMILY HISTORY: Noncontributory. SOCIAL HISTORY: History of smoking. No alcohol or drug use. PHYSICAL EXAMINATION: VITAL SIGNS: Blood pressure is 123/89, heart rate of 111, temperature 97.6, respiratory rate of 19. HEENT: Pupils are equal and reactive to light. Sclerae are anicteric. NECK: No JVD. HEART: Regular. LUNGS: Wheezing on both lung briggs. ABDOMEN: Positive bowel sounds. EXTREMITIES: Positive for edema. DIAGNOSES: 1. COPD exacerbation. 2. Diabetes, out of control. 3. Hypothyroidism due to thyroidectomy, history of thyroid cancer. PLAN: 1. Start Levemir 18 units daily. 2. Add NovoLog 6 units before each meal. 3. NovoLog sliding scale before meals and at bedtime. 4. Hold metformin due to his KAYLAN as well as lactic acidosis. 5. Check hemoglobin A1c, ordered by Dr. Coelho, still pending. I will follow the patient closely during the hospital stay. Thank you Dr. Shaffer for the courtesy of this consultation. Geovanni To M.D. DR: LOWELL JOB#: [id number] CC: JACKELIN
[2019-07-13 20:00] VITALS: BP 147/67
[2019-07-13] MEDS: Atorvastatin 20mg tab ORAL SCH (21:06)
[2019-07-13] MEDS: Tamsulosin 0.4mg cap ORAL SCH (21:06)
[2019-07-14] VITALS: BP 115/70
[2019-07-14] MEDS: Albuterol/Ipratropium 3ml neb HHN SCH ×2 (01:00→08:00)
[2019-07-14 04:00] VITALS: BP 116/75
[2019-07-14] MEDS: dilTIAZem HCl 60mg tab ORAL SCH (05:52)
[2019-07-14] MEDS: NovoLOG Insulin Flexpen SUBQ SCH ×4 (06:05→11:04)
[2019-07-14 08:00] VITALS: BP 118/84
[2019-07-14] MEDS: Eliquis 5mg tablet ORAL SCH ×2 (09:00→10:58)
[2019-07-14] MEDS: Wixela 250/50 Inhaler - 60 dose INH SCH ×2 (09:00→10:58)
[2019-07-14] MEDS: Levemir Flexpen SUBQ SCH ×2 (09:00→11:01)
[2019-07-14] MEDS: Docusate 100mg cap ORAL SCH ×2 (09:00→10:58)
--- NOTE | 2019-07-14 10:48 | Cardiac Electrophysiology PN ---
Assessment/Plan Assessment/Plan 1. Atrial flutter with RVR 130s, Continue Eliquis 5 mg b.i.d. and Cardizem 60 tid. Noncompliant 2. Bradycardia, status post PPM implantation at [facility]. Patient doesn' t know the brand. Awaiting records from [facility] to interrogate the pacemaker 3. RBBB, LAFB 4. History of thyroid cancer on Synthroid, status post thyroidectomy. 5. Prostate cancer 6. Hyperlipidemia on Lipitor. 7. COPD on prednisone and Flonase. 8. Noncompliant. Signing AMA DW RN Subjective Subjective Refusing BS check. In atrial flutter with V pacing. Pulled out his IV and wants to sign out AMA. Objective Last 24 Hour Vital Signs Date Time Temp Pulse Resp B/P (MAP) Pulse Ox O2 Delivery O2 Flow Rate FiO2 07/14/19 08:00 98.1 102 18 118/84 (95) 91 07/14/19 08:00 96 Nasal Cannula 4.0 36 07/14/19 08:00 76 18 96 Nasal Cannula 4.0 36 73 18 94 07/14/19 05:52 114 116/75 07/14/19 04:00 97.5 111 18 116/75 (89) 91 07/14/19 04:00 114 07/14/19 00:00 97.2 116 17 115/70 (85) 91 07/14/19 00:00 117 07/13/19 21:06 92 141/67 07/13/19 21:00 Nasal Cannula 4.0 07/13/19 20:00 79 07/13/19 20:00 98.2 92 19 147/67 (93) 92 07/13/19 19:55 112 18 94 Nasal Cannula 4.0 36 110 18 92 07/13/19 19:00 93 Nasal Cannula 4.0 36 07/13/19 16:00 108 07/13/19 14:18 109 119/88 07/13/19 12:00 109 07/13/19 11:55 97.3 115 20 119/88 (98) 94 Intake and Output 07/13/19 07/14/19 19:00 07:00 Intake Total 1400 ml 500 ml Output Total 2250 ml 450 ml Balance -850 ml 50 ml Intake Oral 1400 ml Other 500 ml Output Urine Total 2250 ml 450 ml # Bowel Movements 1 3 Microbiology Date/Time Source Procedure Growth Status 07/11/19 20:53 Blood Blood Culture - Preliminary NO GROWTH AFTER 48 HOURS Resulted 07/11/19 20:35 Blood Blood Culture - Preliminary NO GROWTH AFTER 48 HOURS Resulted 07/11/19 20:30 Urine,Clean Catch Urine Culture - Final Mixed Gram Positive Organism Complete Objective HEET: No JVD LUNGS: Clear. CARDIAC: Pacemaker is in the left subclavian. Irregular S1 and S2 ABDOMEN: Soft. EXTREMITIES: 1+ pitting edema. Martin Valle MD July 14, 2019 10:48
--- NOTE | 2019-07-14 13:28 | Nephrology Progress Note ---
Assessment/Plan Problem List: (1) KAYLAN (acute kidney injury) (2) Pacemaker (3) Prostate cancer (4) COPD (chronic obstructive pulmonary disease) (5) Hyperglycemia Assessment Elevated Cr and K : Recheck for ? Lab error Hyperglycemia, DM COPD / Pneumonia Pacer Encephalopathy Hypothyroid UA indicative of UTI Plan Patient uncooperative signing out AMA Did the same from [facility] a week ago and then was picked up and brought him to our emergency room Previously: Recheck Labs, today results noted. Serum creatinine and serum potassium now within normal limit. Reviewed labs on July 11 evening: Creatinine 1.4 and potassium of 5.3 Slow hydrate Pulmonary toilet 2D echocardiogram Monitor renal parameters Meanwhile patient is very uncooperative. Refusing blood sugar check and some medication on and off. Subjective ROS Limited/Unobtainable: No Interval Events/Complaints Patient was seen prior to leaving the hospital AGAINST MEDICAL ADVICE dressed up lying in bed Objective Objective Last 24 Hour Vital Signs Date Time Temp Pulse Resp B/P (MAP) Pulse Ox O2 Delivery O2 Flow Rate FiO2 07/14/19 09:00 Nasal Cannula 4.0 07/14/19 08:00 98.1 102 18 118/84 (95) 91 07/14/19 08:00 96 Nasal Cannula 4.0 36 07/14/19 08:00 76 18 96 Nasal Cannula 4.0 36 73 18 94 07/14/19 08:00 111 07/14/19 05:52 114 116/75 07/14/19 04:00 97.5 111 18 116/75 (89) 91 07/14/19 04:00 114 07/14/19 00:00 97.2 116 17 115/70 (85) 91 07/14/19 00:00 117 07/13/19 21:06 92 141/67 07/13/19 21:00 Nasal Cannula 4.0 07/13/19 20:00 79 07/13/19 20:00 98.2 92 19 147/67 (93) 92 07/13/19 19:55 112 18 94 Nasal Cannula 4.0 36 110 18 92 07/13/19 19:00 93 Nasal Cannula 4.0 36 07/13/19 16:00 108 07/13/19 14:18 109 119/88 Intake and Output 07/13/19 07/14/19 19:00 07:00 Intake Total 1400 ml 500 ml Output Total 2250 ml 450 ml Balance -850 ml 50 ml Intake Oral 1400 ml Other 500 ml Output Urine Total 2250 ml 450 ml # Bowel Movements 1 3 No labs for today as patient refused Height (Feet): 6 Height (Inches): 0.00 Weight (Pounds): 201 General Appearance: no apparent distress Objective No change Fab Coelho MD July 14, 2019 13:28
--- NOTE | 2019-07-14 18:24 | Discharge Summary ---
Discharge Summary Hospital Course Date of Admission July 11, 2019 at 22:00 Date of Discharge July 14, 2019 at 13:10 Admitting Diagnosis COPD Reason for Hospitalization: COPD exacerbation HPI Froylan Mcintosh is a 73 year old male who was admitted on July 11, 2019 at 22:00 for Chronic Obstructive Pulmonary Disease Consultations Martin Valle MD - Cardiology/EPS Fab Coelho MD - Nephrology Procedures None Hospital Course Patient was admitted with an acute COPD exacerbation, hyperglycemia and hyperkalemia with KAYLAN. His electrolyte abnormalities improved with IVF and he was treated for his COPD exacerbation. He was non-compliant with treatment and monitoring. He refused BS checks and insulin, demanded a regular diet and was abusive to staff. On the day of discharge he wanted to leave AMA. I had an extensive 1 hour conversation with the patient in the presence of the RN. Initially he agreed to stay but shortly thereafter he left AMA, stating he wanted to go to [facility]. Of note, he has left [facility] AMA many times as well. I discussed the importance of compliance and the danger of leaving AMA, including but not limited to . Discharge Medications Medication Profile: No Active Prescriptions or Reported Meds Discharge Condition Upon Discharge: unchanged Discharge Vital Signs Last Vital Signs Date Time Temp Pulse Resp B/P (MAP) Pulse Ox O2 Delivery O2 Flow Rate FiO2 07/14/19 09:00 Nasal Cannula 4.0 07/14/19 08:00 98.1 102 18 118/84 (95) 91 07/14/19 08:00 36 NAD, FRAIL ELDERLY MALE NC/AT, OPC C MMM SUPPLE S LAD OR JVD COARSE DISTANT IR IR S/NT/ND C NABS NO C/C/E DISCHARGE MEDS Active Scripts Medications Dose Route/Sig Max Daily Dose Days Date Category No Active Prescriptions or Reported Medications Rx > 45 MIN SPENT ON DISCHARGE Discharge Disposition Patient was discharged to Discharge Diagnoses: (1) COPD (chronic obstructive pulmonary disease) (2) COPD exacerbation (3) Acute and chronic respiratory failure with hypercapnia (4) Atrial fib/flutter, transient (5) Hyperkalemia (6) KAYLAN (acute kidney injury) (7) RBBB (8) Hypothyroid (9) Anemia (10) Pacemaker (11) Prostate cancer (12) Cardiac LV ejection fraction >40% (13) Diabetes mellitus Tevin Shaffer MD July 14, 2019 18:24
== END 2019-07-14 13:10 | disposition left against medical advice (07) | DRG 190 ==
LOC: EDBD 20:11 → EDUNIT# 20:11 → EMR 20:47 → SDSOVERFLO 22:00 → EDBEDREQ 07-12 16:58 → 2E 07-12 17:18
DX: J44.1 Chronic obstructive pulmonary disease with (acute) exacerbation (principal); J96.22 Acute and chronic respiratory failure with hypercapnia; N17.9 Acute kidney failure, unspecified; I48.92 Unspecified atrial flutter; G93.40 Encephalopathy, unspecified; Z95.0 Presence of cardiac pacemaker; Z85.46 Personal history of malignant neoplasm of prostate; I48.91 Unspecified atrial fibrillation; I45.10 Unspecified right bundle-branch block; E87.5 Hyperkalemia; D64.9 Anemia, unspecified; Z79.01 Long term (current) use of anticoagulants; R00.1 Bradycardia, unspecified; Z85.850 Personal history of malignant neoplasm of thyroid; E78.5 Hyperlipidemia, unspecified; E89.0 Postprocedural hypothyroidism; E11.65 Type 2 diabetes mellitus with hyperglycemia; F17.200 Nicotine dependence, unspecified, uncomplicated; Z91.19 Patient's noncompliance with other medical treatment and regimen
CPT/HCPCS: 36415; 71045; 71250; 80048; 80053; 80061; 81003; 82550; 82728; 82962; 82977; 83036; 83605; 83615; 83735; 83880; 84100; 84439; 84443; 84481; 84484; 84550; 85025; 85379; 86140; 87040; 87086; 93005; 93306; 94640; 94664; 96365; 96375; 99291; J1815; J7030; J7620; S5561